=== PATIENT | male | born 1930 | race Caucasian/White ===

== ENCOUNTER 2017-05-13 17:15 | Inpatient (IN) | payer MEDICARE, MEDICAID ==
--- NOTE | 2017-05-13 17:29 | ED Physician Chart ---
Chief Complaint/HPI - Patient Information Date Seen:: 05/13/17 Time Seen:: 17:22 Chief Complaint:: congestion//high bun History of Present Illness:: pt is demented..pt of dr galindo. sent from [place] for pulm congestion and high bun. reportedly has cough but none heard on ed arrival. no fever. pt is nonverbal...unintelligible when he does speak at all which is very rare. pt has a g tube. family(son) says he has been concerned pt is developing dehydration for last 4 days. pt is normally alert and talkative but gets this way(less verbal) in past when he is dehydrated or if he has a uti. he has had some cough recently per son. son had been advising staff of concerns x sev days and recent labs show rapid rise in BUN. pt is fed by PEg Tube...son q's whether intake is correct. Historian:: EMS, Medical Records Review:: Transfer documents Reviewed, Patient unable to respond Past Medical History - Past Medical History Past Medical History: HTN, CHF, CVA/TIA (L side weakness), Dyslipidemia, PUD/ GERD, Seizures, Other (a fib, ) Social History: Care Facility Surgical History: PEG/GTube Medication: Reviewed Physical Exam - Physical Examination General/Constitutional: Awake, Well-developed, well-nourished, Alert, No distress, Non-toxic appearing Head: Atraumatic Eyes: Lids, conjuctiva normal, PERRL, EOMI Skin: Nl inspection, No rash, No skin lesions, No ecchymosis, Well hydrated, No lymphadenopathy ENMT: External ears, nose nl, Nasal exam nl, Lips, teeth, gums nl Neck: Nontender, Full ROM w/o pain, No JVD, No nuchal rigidity, No bruit, No mass, No stridor Respiratory: Nl effort/Exclusion, Clear to Auscultation, No Wheeze/Rhonchi/Rales Cardio Vascular: RRR, No murmur, gallop, rubs, NL S1 S2 GI: No tenderness/rebounding/guarding, No organomegaly, No hernia, Normal BS's, Nondistended, No mass/bruits, No McBurney tenderness Other GI comments:: peg tube site ok. no infection. no decubital sores. : No CVA tenderness Extremities: No tenderness or effusion, Full ROM, normal strength in all extremities, No edema, Normal digits & nails Neuro/Psych: DTR's symmetric, Normal sensory exam, Mood normal Other Neuro/Psych comments:: pt is alert but cant communicate w us. moves rt side ok. l side seems decreased in rom /str c/w prior cva. [ no obvious new deficit per family..other than decrease in communication but he has been gradual onset of this and has been this way in past when he had dehydration.] Misc: normal gait, Normal back, No paraspinal tenderness Labs/Radiology/EKG Results - Lab Results Results: Laboratory Tests 05/13/17 05/13/17 05/13/17 17:42 17:42 17:42 WBC 9.2 RBC 3.22 L Hgb 9.0 L Hct 26.7 L MCV 82.9 MCH 27.8 MCHC Differential 33.5 RDW 14.8 Plt Count 256 MPV 8.8 Neutrophils % 71.3 Lymphocytes % 13.9 L Monocytes % 10.5 H Eosinophils % 3.2 Basophils % 1.1 PT 11.9 H INR 1.13 PTT (Actin FS) 31.7 Sodium 124 L Potassium 5.3 H Chloride 91 L Carbon Dioxide 25.8 Anion Gap 12.5 BUN 80 H Creatinine 2.4 H Est GFR ( Amer) TNP Est GFR (Non-Af Amer) TNP BUN/Creatinine Ratio 33.3 Glucose 103 Whole Bld Lactic Acid Calcium 8.7 Total Bilirubin 0.4 AST 24 ALT < 3 L Alkaline Phosphatase 58 Troponin I Total Protein 6.6 Albumin 3.0 L Globulin 3.6 Albumin/Globulin Ratio 0.8 L 05/13/17 05/13/17 17:42 17:42 WBC RBC Hgb Hct MCV MCH MCHC Differential RDW Plt Count MPV Neutrophils % Lymphocytes % Monocytes % Eosinophils % Basophils % PT INR PTT (Actin FS) Sodium Potassium Chloride Carbon Dioxide Anion Gap BUN Creatinine Est GFR ( Amer) Est GFR (Non-Af Amer) BUN/Creatinine Ratio Glucose Whole Bld Lactic Acid 1.58 Calcium Total Bilirubin AST ALT Alkaline Phosphatase Troponin I 0.02 Total Protein Albumin Globulin Albumin/Globulin Ratio - Radiology Results Results: cxr no chf. rt base has focal loss of clear margin on diaphragm and slt fullness at rt hilar region...?infiltrate - EKG Interpretations EKG Time:: 17:45 Rate & Rhythm: afib w vent rate 90 [place]: -48 Intervals: [id number] ED Septic Shock - . Is Septic Shock (SBP<90, OR Lactate>4 mmol\L) present?: No Reassessment (Disposition) - Reassessment Reassessment:: case dw son, grandson and 2 other fam members. all are ok w plan. q's answered. results dw family. 7;30pm asked staff for call to Dr Emilie rodriguez i+o yielded 1275ml. 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 rodriguez ordered. 8;23pm case dw dr galindo...will admit. Reassessment Condition:: Unchanged - Diagnosis Diagnosis:: 1) rt pulmonary infiltrate 2) dehydration / hign BUN 3) anemia - Patient Disposition Admitted to:: Telemetry Condition at Disposition:: Unchanged
[2017-05-13 17:50] LABS: % BASOPHILS 1.1 % (0.0-2.0); % EOSINOPHILS 3.2 % (0.0-5.0); % LYMPHOCYTES 13.9 % (20.0-50.0); % MONOCYTES 10.5 % (2.0-10.0); % NEUTROPHILS 71.3 % (40.0-80.0); HEMATOCRIT 26.7 % (39.0-49.0); MEAN CELL VOLUME 82.9 fl (80-99); MEAN CORPUSCULAR HEMOGLOBIN 27.8 pg (27.0-31.0); MEAN CORPUSCULAR HGB CONC 33.5 pg (28.0-36.0); MEAN PLATELET VOLUME 8.8 fl; NEUTROPHILE ABSOLUTE 6.5 Th/cmm (1.8-8.0); PLATELET COUNT 256 Th/cmm (150-400); RED BLOOD COUNT 3.22 Mil/cmm (3.80-5.80); RED CELL DISTRIBUTION WIDTH 14.8 % (11.5-20.0); WHITE BLOOD COUNT 9.2 Th/cmm (4.8-10.8)
[2017-05-13 18:08] LABS: INR 1.13 (0.5-1.4); PROTHROMBIN TIME (TEST) 11.9 SECONDS (9.5-11.5)
[2017-05-13 18:28] LABS: ALB/GLOB RATIO 0.8 (1.0-1.8); ALKALINE PHOSPHATASE 58 U/L (34-104); ANION GAP 12.5 (7.0-16.0); BILIRUBIN,TOTAL 0.4 mg/dL (0.3-1.0); BUN - UREA NITROGEN 80 mg/dL (7-25); BUN/CREATININE RATIO 33.3; CALCIUM SERUM 8.7 mg/dL (8.6-10.3); CARBON DIOXIDE 25.8 mEq/L (21.0-31.0); CHLORIDE 91 mEq/L (98-107); CREATININE - SERUM 2.4 mg/dL (0.7-1.3); GLUCOSE 103 mg/dL (70-105); POTASSIUM SERUM 5.3 mEq/L (3.5-5.1); SGOT 24 U/L (13-39); SODIUM SERUM 124 mEq/L (136-145)
[2017-05-13 18:44] LABS: SGPT/ALT < 3 U/L (7-52)
[2017-05-13] MEDS ORDERED: Sodium Chloride 0.9% 1,000 ML IV ONE (19:16)
[2017-05-13 21:46] LABS: URINE BILIRUBIN NEGATIVE (NEGATIVE); URINE BLOOD LARGE (NEGATIVE); URINE COLOR YELLOW; URINE GLUCOSE (UA) NEGATIVE (NEGATIVE); URINE KETONE NEGATIVE (NEGATIVE)
[2017-05-13 21:47] LABS: URINE PROTEIN 100 mg/dL (NEGATIVE); URINE UROBILINOGEN 0.2 E.U./dL (0.2 - 1.0)
[2017-05-13 21:54] LABS: URINE RBC 50-100 /hpf (0-5)
[2017-05-13 21:58] LABS: URINE BACTERIA NONE SEEN /hpf (NONE SEEN); URINE EPITHELIAL CELLS NONE SEEN /lpf (FEW); URINE WBC >100 /hpf (0-5)
[2017-05-14] MEDS ORDERED: Sodium Chloride 0.9% 1,000 ML IV SCH (06:41)
[2017-05-14] MEDS ORDERED: Levofloxacin 500mg/100mL 500 MG/100 ML BAG IV SCH (07:00)
--- NOTE | 2017-05-14 12:25 | History and Physical ---
History of Present Illness - HPI Chief Complaint: female pt present with cough pt is non verbal no fever noted. incresing weakness found to have incresing renal failure HPI: pt has gradually deteorating having cogh increseing weakness found to have incresing renal failure Vital Signs: Last Vital Signs Temp 98.0 F 05/14/17 01:47 Pulse 104 05/14/17 05:47 Resp 18 05/14/17 08:00 BP 142/73 05/14/17 01:47 Pulse Ox 96 05/13/17 21:19 Past Medical History Cardiovascular: Report: AFIB, CAD Pulmonary: Report: Bronchitis, COPD WHISTLE PUNK: Report: CVA, Dementia - Past Surgical History Past Surgical History: No pertinent Hx Social History Smoke: Quit Alcohol: None Drugs: None Lives: Alone Domestic Violence: Negative Health Maintenance Health Maintenance: PSA - Medications Home Medications: Home Medication Medication Instructions Recorded Type Acetaminophen [Tylenol] 650 mg GT Q6HR PRN 05/13/17 History Apixaban [Eliquis] 5 mg PO BID 05/13/17 History Atorvastatin Calcium [Lipitor] 10 mg GT HS 05/13/17 History Carbidopa/Levodopa [Carbidopa-Levo 1 each PO TID 05/13/17 History 25-100 mg Odt] Diclofenac Sodium [Voltaren] 1 % TP BID 05/13/17 History Insulin Detemir [Levemir] 10 unit SQ DAILY 05/13/17 History Insulin Human Regular [NovoLIN R] 0 units SUBQ QID 05/13/17 History Isosorbide Dinitrate [Isordil] 10 mg GT TID 05/13/17 History Lactulose 20 gm GT TID 05/13/17 History Levetiracetam [Keppra] 250 mg GT BID 05/13/17 History Metoprolol Tartrate 37.5 mg GT BID 05/13/17 History Mineral Oil/Petrolatum,White 3.5 gm OP BID 05/13/17 History [Lubricant Eye Ointment] Oxycodone HCl/Acetaminophen 1 tab GT Q12H PRN 05/13/17 History [Percocet 325 mg-5 mg*] Pantoprazole Sodium 40 mg GT DAILY 05/13/17 History Rifaximin [Xifaxan] 550 mg PO BID 05/13/17 History - Allergies Allergies/Adverse Reactions: Allergies Allergy/AdvReac Type Severity Reaction Status Date / Time No Known Allergies Allergy Verified 05/13/17 17:41 Review of Systems - Review of Systems Constitutional: Report: Weakness Eyes: Report: No Significant Respiratory: Report: Cough, SOB with Excertion Cardiovascular: Report: Paroxysmal Noc. Dyspnea Neurological: Report: Weakness Physical Exam - Physical Exam Neuro/Psych: Denies: Mood affect is within normal limits, A+Ox3 (pt had s/p cva) , CN II-XII intact, Disoriented to name time or place, Depressed affect, No motor deficit, No sensory deficit, Facial droop noted, No new focal deficits, Weakness or sensory loss noted. - Lab Results All Lab Results last 24 hours: Laboratory Last Values WBC 9.2 Th/cmm (4.8-10.8) 05/13/17 17:42 RBC 3.22 Mil/cmm (3.80-5.80) L 05/13/17 17:42 Hgb 9.0 gm/dL (12.6-17.4) L 05/13/17 17:42 Hct 26.7 % (39.0-49.0) L 05/13/17 17:42 MCV 82.9 fl (80-99) 05/13/17 17:42 MCH 27.8 pg (27.0-31.0) 05/13/17 17:42 MCHC Differential 33.5 pg (28.0-36.0) 05/13/17 17:42 RDW 14.8 % (11.5-20.0) 05/13/17 17:42 Plt Count 256 Th/cmm (150-400) 05/13/17 17:42 MPV 8.8 fl 05/13/17 17:42 Neutrophils % 71.3 % (40.0-80.0) 05/13/17 17:42 Lymphocytes % 13.9 % (20.0-50.0) L 05/13/17 17:42 Monocytes % 10.5 % (2.0-10.0) H 05/13/17 17:42 Eosinophils % 3.2 % (0.0-5.0) 05/13/17 17:42 Basophils % 1.1 % (0.0-2.0) 05/13/17 17:42 PT 11.9 SECONDS (9.5-11.5) H 05/13/17 17:42 INR 1.13 (0.5-1.4) 05/13/17 17:42 PTT (Actin FS) 31.7 SECONDS (26.0-38.0) 05/13/17 17:42 Sodium 124 mEq/L (136-145) L 05/13/17 17:42 Potassium 5.3 mEq/L (3.5-5.1) H 05/13/17 17:42 Chloride 91 mEq/L (98-107) L 05/13/17 17:42 Carbon Dioxide 25.8 mEq/L (21.0-31.0) 05/13/17 17:42 Anion Gap 12.5 (7.0-16.0) 05/13/17 17:42 BUN 80 mg/dL (7-25) H 05/13/17 17:42 Creatinine 2.4 mg/dL (0.7-1.3) H 05/13/17 17:42 Est GFR ( Amer) TNP 05/13/17 17:42 Est GFR (Non-Af Amer) TNP 05/13/17 17:42 BUN/Creatinine Ratio 33.3 05/13/17 17:42 Glucose 103 mg/dL (70-105) 05/13/17 17:42 Whole Bld Lactic Acid 1.58 mmol/L (0.60-1.99) 05/13/17 17:42 Calcium 8.7 mg/dL (8.6-10.3) 05/13/17 17:42 Total Bilirubin 0.4 mg/dL (0.3-1.0) 05/13/17 17:42 AST 24 U/L (13-39) 05/13/17 17:42 ALT < 3 U/L (7-52) L 05/13/17 17:42 Alkaline Phosphatase 58 U/L (34-104) 05/13/17 17:42 Troponin I 0.02 ng/mL (0.01-0.05) 05/13/17 17:42 B-Natriuretic Peptide 588.0 pg/mL (5.0-100.0) H 05/13/17 17:42 Total Protein 6.6 gm/dL (6.0-8.3) 05/13/17 17:42 Albumin 3.0 gm/dL (4.2-5.5) L 05/13/17 17:42 Globulin 3.6 gm/dL 05/13/17 17:42 Albumin/Globulin Ratio 0.8 (1.0-1.8) L 05/13/17 17:42 Urine Source CATH 05/13/17 19:50 Urine Color YELLOW 05/13/17 19:50 Urine Clarity CLOUDY (CLEAR) 05/13/17 19:50 Urine pH 6.0 05/13/17 19:50 Ur Specific [place] 1.015 (1.005-1.030) 05/13/17 19:50 Urine Protein 100 mg/dL (NEGATIVE) H 05/13/17 19:50 Urine Glucose (UA) NEGATIVE mg/dL (NEGATIVE) 05/13/17 19:50 Urine Ketones NEGATIVE mg/dL (NEGATIVE) 05/13/17 19:50 Urine Blood LARGE (NEGATIVE) H 05/13/17 19:50 Urine Nitrate NEGATIVE (NEGATIVE) 05/13/17 19:50 Urine Bilirubin NEGATIVE (NEGATIVE) 05/13/17 19:50 Urine Urobilinogen 0.2 E.U./dL (0.2 - 1.0) 05/13/17 19:50 Ur Leukocyte Esterase LARGE (NEGATIVE) H 05/13/17 19:50 Urine RBC 50-100 /hpf (0-5) H 05/13/17 19:50 Urine WBC >100 /hpf (0-5) H 05/13/17 19:50 Ur Epithelial Cells NONE SEEN /lpf (FEW) 05/13/17 19:50 Urine Bacteria NONE SEEN /hpf (NONE SEEN) 05/13/17 19:50 Blood Type B POSITIVE 05/13/17 20:36 Antibody Screen NEGATIVE 05/13/17 20:36 Laboratory Results - last 24 hr 05/13/17 20:36 Blood Type B POSITIVE Antibody Screen NEGATIVE - Assessment Assessment: Current Active Problems Problem Status Onset COUGH AND CONGESTION Acute sob pnumonia r/o sepsis incresing renal failure h/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
--- NOTE | 2017-05-14 14:34 | Diagnostic Imaging Report ---
Portable chest x-ray HISTORY: Cough The heart is enlarged. There does appear to be a degree of pulmonary vascular redistribution consistent with cardiac compensation. Evidence for right pleural effusion. IMPRESSION: 1. Cardiomegaly along with evidence of a right pleural effusion and changes suggesting congestive heart failure. Clinical correlation is needed.
--- NOTE | 2017-05-14 15:14 | Consultation ---
Consult Note - Consult Note Service Date: 05/14/17 Consult Note: PHYSICIAN Consultation Note: Date of Admission: 05/13/17 Purpose of Consultation: Worsening kidney function Chief Complaint: Elevated BUN/creatinine and creatinine History of Present Illness: 86-year-old male S medical history of CVA who was brought in because of abnormal labs. Few days prior to admission, patient was noted by family members to be less responsive as usual. One week prior to admission, labs drawn at the [facility] revealed a BUN/creatinine of 35/0.89. A few hours prior to admission, labs drawn revealed a BUN/creatinine of 72/ 2.28. He was then brought to the emergency room. His BUN/creatinine of the emergency room was 80/12.4 with a sodium of 124, and potassium of 5.3. Chest x-ray revealed right effusion with some changes suggestive of CHF. BNP was 588. There was no mention of nausea and vomiting as well as diarrhea. Past Medical History: Essential hypertension, atrial fibrillation, dyslipidemia, epilepsy, GERD, CVA, aspiration pneumonia, dehydration, C. difficile, anemia D, type 2 diabetes mellitus, CKD Allergies Allergy/AdvReac Type Severity Reaction Status Date / Time No Known Allergies Allergy Verified 05/13/17 17:41 Vital Signs Temp 98.0 F 05/14/17 01:47 Pulse 104 05/14/17 05:47 Resp 18 05/14/17 08:00 BP 142/73 05/14/17 01:47 Pulse Ox 96 05/13/17 21:19 Intake & Output 05/13/17 05/14/17 05/14/17 18:59 06:59 18:59 Other: Stool Characteristics Soft Soft Laboratory Results - last 24 hr 05/13/17 20:36 Blood Type B POSITIVE Antibody Screen NEGATIVE Home Medication Medication Instructions Recorded Type Acetaminophen [Tylenol] 650 mg GT Q6HR PRN 05/13/17 History Apixaban [Eliquis] 5 mg PO BID 05/13/17 History Atorvastatin Calcium [Lipitor] 10 mg GT HS 05/13/17 History Carbidopa/Levodopa [Carbidopa-Levo 1 each PO TID 05/13/17 History 25-100 mg Odt] Diclofenac Sodium [Voltaren] 1 % TP BID 05/13/17 History Insulin Detemir [Levemir] 10 unit SQ DAILY 05/13/17 History Insulin Human Regular [NovoLIN R] 0 units SUBQ QID 05/13/17 History Isosorbide Dinitrate [Isordil] 10 mg GT TID 05/13/17 History Lactulose 20 gm GT TID 05/13/17 History Levetiracetam [Keppra] 250 mg GT BID 05/13/17 History Metoprolol Tartrate 37.5 mg GT BID 05/13/17 History Mineral Oil/Petrolatum,White 3.5 gm OP BID 05/13/17 History [Lubricant Eye Ointment] Oxycodone HCl/Acetaminophen 1 tab GT Q12H PRN 05/13/17 History [Percocet 325 mg-5 mg*] Pantoprazole Sodium 40 mg GT DAILY 05/13/17 History Rifaximin [Xifaxan] 550 mg PO BID 05/13/17 History Current Medications Generic Name Dose Route Start Last Admin Trade Name Freq PRN Reason Stop Dose Admin Levofloxacin 250 mg in 50 mls @ 50 mls/hr 05/15/17 07:00 Levaquin Pb IV 07/14/17 06:59 Q24HR YESSICA Sodium Chloride 1,000 mls @ 60 mls/hr 05/14/17 14:59 Nacl 0.9% IV 07/13/17 06:40 .[id number] YESSICA Review of Systems: A 12 point ROS was reviewed with the pertinent positive and negatives noted in the HPI. Social History Smoking Status Never smoker Physical Exam: General: Alert, No Acute Distress HEENT: EOMI Bilaterally, PERRLA Bilaterally, Head is normocephalic, atraumatic on inspection. Cardio: +S1/S2 Auscultated, RRR, no murmurs/rubs/gallops noted Respiratory: Scattered rhonchi Bilaterally Abdominal: Soft, Nondistended, Nontender to palpation x 4 quadrants, presence of gastrostomy tube Genital/Urinary: WNL Extremities: No Edema noted in the lower extremities Neurological: No Focal Deficits noted. Assessment/Plan: Acute kidney injury on chronic kidney disease Chronic kidney disease secondary to diabetic nephropathy with long-standing history of diabetes. He may also have developed hypertensive nephrosclerosis throughout the years. Acute kidney injury is initially prerenal in nature. Exam revealed poor skin turgor with dry oral mucosa. This is suggestive of dehydration. His prerenal azotemia eventually progressed to acute tubular injury. His urinalysis was also suggestive of an ongoing urinary tract infection, so he may have developed acute interstitial nephritis. Hypernatremia secondary to possible increased sodium loss compared to free water loss Hyperkalemia secondary to kidney failure Altered level of consciousness secondary to metabolic encephalopathy due to medications, dehydration Dehydration Essential hypertension with COPD Chronic A. fib Dyslipidemia Epilepsy GERD Status post CVA Aspiration pneumonia/dysphagia History of C. difficile colitis Anemia of chronic disease Type 2 diabetes mellitus with CK D Plan: Urinalysis Start feedings Urine sodium, eosinophils, creatinine Electrolytes, hemoglobin A1c, uric acid and serum osmolarity Signed, Soraya Cesar 05/14/[id number]
[2017-05-14] MEDS: Sodium Chloride 0.9% 1,000 ML IV SCH (17:16)
--- NOTE | 2017-05-14 17:23 | Consultation ---
Consult Note - Consult Note Service Date: 05/14/17 Consult Note: PHYSICIAN Consultation Note: Date of Admission: 05/13/17 Purpose of Consultation: pneumonia Chief Complaint: Patient MARYURI SRINIVASAN was admitted to [facility] Telemetry with PULMONARY INFILTRATE. History of Present Illness: Patient is 86-year-old male with history of CVA, aphasic brought from the SNF for abnormal labs. He was getting less responsive lately. His BUN creatine were normal, hoever, there was worsening of the BUN and creatinine. He was transferred to the ER for further evaluation. Chest x-ray revealed right effusion with infiltrates with some changes suggestive of CHF. BNP was 588. There was no mention of nausea and vomiting as well as diarrhea. Past Medical History: CVA. Dementia. Allergies Allergy/AdvReac Type Severity Reaction Status Date / Time No Known Allergies Allergy Verified 05/13/17 17:41 Vital Signs Temp 97.5 F 05/14/17 16:42 Pulse 103 05/14/17 16:42 Resp 18 05/14/17 16:42 BP 136/77 05/14/17 16:42 Pulse Ox 98 05/14/17 16:42 Intake & Output 05/13/17 05/14/17 05/14/17 18:59 06:59 18:59 Other: Stool Characteristics Soft Soft Laboratory Results - last 24 hr 05/13/17 20:36 Blood Type B POSITIVE Antibody Screen NEGATIVE Home Medication Medication Instructions Recorded Type Acetaminophen [Tylenol] 650 mg GT Q6HR PRN 05/13/17 History Apixaban [Eliquis] 5 mg PO BID 05/13/17 History Atorvastatin Calcium [Lipitor] 10 mg GT HS 05/13/17 History Carbidopa/Levodopa [Carbidopa-Levo 1 each PO TID 05/13/17 History 25-100 mg Odt] Diclofenac Sodium [Voltaren] 1 % TP BID 05/13/17 History Insulin Detemir [Levemir] 10 unit SQ DAILY 05/13/17 History Insulin Human Regular [NovoLIN R] 0 units SUBQ QID 05/13/17 History Isosorbide Dinitrate [Isordil] 10 mg GT TID 05/13/17 History Lactulose 20 gm GT TID 05/13/17 History Levetiracetam [Keppra] 250 mg GT BID 05/13/17 History Metoprolol Tartrate 37.5 mg GT BID 05/13/17 History Mineral Oil/Petrolatum,White 3.5 gm OP BID 05/13/17 History [Lubricant Eye Ointment] Oxycodone HCl/Acetaminophen 1 tab GT Q12H PRN 05/13/17 History [Percocet 325 mg-5 mg*] Pantoprazole Sodium 40 mg GT DAILY 05/13/17 History Rifaximin [Xifaxan] 550 mg PO BID 05/13/17 History Current Medications Generic Name Dose Route Start Last Admin Trade Name Jaimie PRN Reason Stop Dose Admin Levofloxacin 250 mg in 50 mls @ 50 mls/hr 05/15/17 07:00 Levaquin Pb IV 07/14/17 06:59 Q24HR YESSICA Sodium Chloride 1,000 mls @ 60 mls/hr 05/14/17 14:59 05/14/17 17:16 Nacl 0.9% IV 07/13/17 06:40 60 mls/hr .[id number] YESSICA Administration Review of Systems: A 12 point ROS was reviewed with the pertinent positive and negatives noted in the HPI. Social History Smoking Status Never smoker Physical Exam: General: Head: normocephalic. HEENT: Head is normocephalic, atraumatic, Oral cavity: moist, pink tongue. Eyes : pallor is present, icterus neg. Pupil PERRLL. EOMI. Cardio: S1 and S2 WNL, no gallop, no rub. No murmur. Respiratory: Vesicular breath, distant reath sounds. Abdominal: soft, NT ND, BS. Globular. Genital/Urinary: [place] in place. with cloudy urine. Extremities: NCCE. b/l legs are swollen and red. Neurological: AAOx3. Assessment: 1. Pneuimonia. 2. NICK. 3. CVA. 4. CHF. Plan: Continue levaquin to po for 8 days. Thank you, Dr Canseco for invoolving me in taking care of this patient. Eunice, Gio Martini M.D. [id number]
[2017-05-14] MEDS: Morphine Sulfate 2 mg/mL 1mL Syr IVP PRN (21:16)
[2017-05-15] MEDS ORDERED: INSULIN ASPART SLIDING SCALE 100 UNITS/ML UNIT SUBQ SCH
[2017-05-15] MEDS: Albuterol Nebulizer 2.5mg/3mL HHN SCH ×4 (00:51→19:21)
[2017-05-15] MEDS: INSULIN ASPART SLIDING SCALE 100 UNITS/ML UNIT SUBQ SCH ×3 (06:23→17:09)
[2017-05-15 06:53] LABS: % BASOPHILS 0.1 % (0.0-2.0); % EOSINOPHILS 4.5 % (0.0-5.0); % LYMPHOCYTES 21.3 % (20.0-50.0); % MONOCYTES 14.1 % (2.0-10.0); HEMATOCRIT 25.9 % (39.0-49.0); HEMOGLOBIN 8.8 gm/dL (12.6-17.4); MEAN CELL VOLUME 83.6 fl (80-99); MEAN CORPUSCULAR HEMOGLOBIN 28.3 pg (27.0-31.0); MEAN CORPUSCULAR HGB CONC 33.9 pg (28.0-36.0); MEAN PLATELET VOLUME 8.5 fl; NEUTROPHILE ABSOLUTE 3.8 Th/cmm (1.8-8.0); PLATELET COUNT 253 Th/cmm (150-400); RED CELL DISTRIBUTION WIDTH 14.9 % (11.5-20.0)
[2017-05-15] MEDS ORDERED: Levofloxacin 250 mg/50 mL Premix Bag IV SCH (07:00)
[2017-05-15 07:22] LABS: ALB/GLOB RATIO 0.7 (1.0-1.8); ALKALINE PHOSPHATASE 61 U/L (34-104); ANION GAP 10.7 (7.0-16.0); BILIRUBIN,TOTAL 0.3 mg/dL (0.3-1.0); BUN - UREA NITROGEN 70 mg/dL (7-25); BUN/CREATININE RATIO 29.2; CALCIUM SERUM 8.4 mg/dL (8.6-10.3); CHLORIDE 99 mEq/L (98-107); CREATININE - SERUM 2.4 mg/dL (0.7-1.3); GLUCOSE 239 mg/dL (70-105); MAGNESIUM 2.2 mg/dL (1.9-2.7); PHOSPHOROUS 5.4 mg/dL (2.5-5.0); POTASSIUM SERUM 4.7 mEq/L (3.5-5.1); SGOT 18 U/L (13-39); SGPT/ALT 7 U/L (7-52); SODIUM SERUM 131 mEq/L (136-145); URIC ACID 7.7 mg/dL (4.4-7.6); WHITE BLOOD COUNT 6.3 Th/cmm (4.8-10.8)
[2017-05-15] MEDS: Lactulose 10 Gm/15 mL 30mL UDC PO SCH ×3 (08:35→21:33)
[2017-05-15] MEDS: Pantoprazole 40 mg/Packet GT SCH (08:36)
[2017-05-15] MEDS: Levetiracetam 500 mg/5mL 5mL UDC NG SCH ×2 (08:36→16:23)
[2017-05-15] MEDS ORDERED: Insulin Detemir 100 units/mL 10mL Vial SUBQ SCH (09:00)
[2017-05-15] MEDS ORDERED: VTE Chemical Prophylaxis Screen/Admission MC PRN (09:26)
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
[2017-05-15] MEDS ORDERED: Azithromycin 500 MG in Sodium Chloride 0.9% 250 ML IV ONE (11:00)
[2017-05-15] MEDS ORDERED: cefTRIAXone 1 GM in Sodium Chloride 0.9% 50 ML IV SCH (11:00)
[2017-05-15] MEDS ORDERED: Insulin Detemir 100 units/mL 10mL Vial SUBQ ONE (11:00)
--- NOTE | 2017-05-15 11:18 | Infectious Disease Prog Note ---
Infectious Disease Subjective - Review of Systems Service Date: 05/15/17 Subjective: no new change. Infectious Disease Objective - Results Result Diagrams: 05/15/17 06:30 05/15/17 06:30 Recent Labs: Laboratory Last Values WBC 6.3 Th/cmm (4.8-10.8) D 05/15/17 06:30 RBC 3.10 Mil/cmm (3.80-5.80) L 05/15/17 06:30 Hgb 8.8 gm/dL (12.6-17.4) L 05/15/17 06:30 Hct 25.9 % (39.0-49.0) L 05/15/17 06:30 MCV 83.6 fl (80-99) 05/15/17 06:30 MCH 28.3 pg (27.0-31.0) 05/15/17 06:30 MCHC Differential 33.9 pg (28.0-36.0) 05/15/17 06:30 RDW 14.9 % (11.5-20.0) 05/15/17 06:30 Plt Count 253 Th/cmm (150-400) 05/15/17 06:30 MPV 8.5 fl 05/15/17 06:30 Neutrophils % 60.0 % (40.0-80.0) 05/15/17 06:30 Lymphocytes % 21.3 % (20.0-50.0) 05/15/17 06:30 Monocytes % 14.1 % (2.0-10.0) H 05/15/17 06:30 Eosinophils % 4.5 % (0.0-5.0) 05/15/17 06:30 Basophils % 0.1 % (0.0-2.0) 05/15/17 06:30 Eos Smear Source URINE 05/14/17 18:00 Eos Smear Total Cells FEW EOSINOPHILS SEEN (NONE SEEN) 05/14/17 18:00 PT 11.9 SECONDS (9.5-11.5) H 05/13/17 17:42 INR 1.13 (0.5-1.4) 05/13/17 17:42 PTT (Actin FS) 31.7 SECONDS (26.0-38.0) 05/13/17 17:42 Sodium 131 mEq/L (136-145) L 05/15/17 06:30 Potassium 4.7 mEq/L (3.5-5.1) 05/15/17 06:30 Chloride 99 mEq/L (98-107) 05/15/17 06:30 Carbon Dioxide 26.0 mEq/L (21.0-31.0) 05/15/17 06:30 Anion Gap 10.7 (7.0-16.0) 05/15/17 06:30 BUN 70 mg/dL (7-25) H 05/15/17 06:30 Creatinine 2.4 mg/dL (0.7-1.3) H 05/15/17 06:30 Est GFR ( Amer) TNP 05/15/17 06:30 Est GFR (Non-Af Amer) TNP 05/15/17 06:30 BUN/Creatinine Ratio 29.2 05/15/17 06:30 Glucose 239 mg/dL (70-105) H 05/15/17 06:30 POC Glucose 218 MG/DL (70 - 105) H 05/15/17 08:43 Hemoglobin A1c % 6.1 % (4.0-6.0) H 05/15/17 06:30 Whole Bld Lactic Acid 1.58 mmol/L (0.60-1.99) 05/13/17 17:42 Uric Acid 7.7 mg/dL (4.4-7.6) H 05/15/17 06:30 Calcium 8.4 mg/dL (8.6-10.3) L 05/15/17 06:30 Phosphorus 5.4 mg/dL (2.5-5.0) H 05/15/17 06:30 Magnesium 2.2 mg/dL (1.9-2.7) 05/15/17 06:30 Total Bilirubin 0.3 mg/dL (0.3-1.0) 05/15/17 06:30 AST 18 U/L (13-39) 05/15/17 06:30 ALT 7 U/L (7-52) 05/15/17 06:30 Alkaline Phosphatase 61 U/L (34-104) 05/15/17 06:30 Troponin I 0.02 ng/mL (0.01-0.05) 05/13/17 17:42 B-Natriuretic Peptide 588.0 pg/mL (5.0-100.0) H 05/13/17 17:42 Total Protein 6.5 gm/dL (6.0-8.3) 05/15/17 06:30 Albumin 2.7 gm/dL (4.2-5.5) L 05/15/17 06:30 Globulin 3.8 gm/dL 05/15/17 06:30 Albumin/Globulin Ratio 0.7 (1.0-1.8) L 05/15/17 06:30 TSH 2.74 uIU/ml (0.34-5.60) 05/15/17 06:30 Urine Source CATH 05/13/17 19:50 Urine Color YELLOW 05/13/17 19:50 Urine Clarity CLOUDY (CLEAR) 05/13/17 19:50 Urine pH 6.0 05/13/17 19:50 Ur Specific [place] 1.015 (1.005-1.030) 05/13/17 19:50 Urine Protein 100 mg/dL (NEGATIVE) H 05/13/17 19:50 Urine Glucose (UA) NEGATIVE mg/dL (NEGATIVE) 05/13/17 19:50 Urine Ketones NEGATIVE mg/dL (NEGATIVE) 05/13/17 19:50 Urine Blood LARGE (NEGATIVE) H 05/13/17 19:50 Urine Nitrate NEGATIVE (NEGATIVE) 05/13/17 19:50 Urine Bilirubin NEGATIVE (NEGATIVE) 05/13/17 19:50 Urine Urobilinogen 0.2 E.U./dL (0.2 - 1.0) 05/13/17 19:50 Ur Leukocyte Esterase LARGE (NEGATIVE) H 05/13/17 19:50 Urine RBC 50-100 /hpf (0-5) H 05/13/17 19:50 Urine WBC >100 /hpf (0-5) H 05/13/17 19:50 Ur Epithelial Cells NONE SEEN /lpf (FEW) 05/13/17 19:50 Urine Bacteria NONE SEEN /hpf (NONE SEEN) 05/13/17 19:50 Ur Random Sodium 30 mmol/L 05/14/17 18:00 Urine Creatinine 44.0 mg/dl (39.0-259.0) 05/14/17 18:00 Blood Type B POSITIVE 05/13/17 20:36 Antibody Screen NEGATIVE 05/13/17 20:36 - Physical Exam Vitals and I&O: Vital Signs Temp 97.4 F 05/15/17 04:00 Pulse 92 05/15/17 08:38 Resp 18 05/15/17 07:07 BP 152/73 05/15/17 08:38 Pulse Ox 99 05/15/17 07:07 Intake & Output 05/14/17 05/15/17 05/15/17 18:59 06:59 18:59 Intake Total 360 Output Total 200 Balance 360 -200 Weight (lbs) 65.771 kg 65.771 kg Intake: Tube Feeding 360 Output: Urine 200 Other: # Voids 800 # Bowel Movements 1 Stool Characteristics Soft Soft Foamy Active Medications: Current Medications Albuterol Sulfate (Albuterol 2.5mg/3ml Neb Ud) 2.5 mg HHN Q6HRT [facility] Stop: 07/14/17 00:59 Last Admin: 05/15/17 07:07 Dose: 2.5 mg Atorvastatin Calcium (Lipitor) 10 mg GT HS YESSICA PRN Reason: Protocol Stop: 07/14/17 20:59 Carbidopa/Levodopa (Sinemet 25mg-100 Mg) 1 tab PO TID [facility] Stop: 07/14/17 08:59 Last Admin: 05/15/17 08:38 Dose: 1 tab Sodium Chloride (Nacl 0.9%) 1,000 mls @ 60 mls/hr IV .[id number] [facility] Stop: 07/13/17 06:40 Last Admin: 05/14/17 17:16 Dose: 60 mls/hr Ceftriaxone Sodium 1 gm/ (Sodium Chloride) 50 mls @ 100 mls/hr IV Q24HR [facility] Stop: 07/14/17 10:59 Azithromycin 500 mg/ Sodium (Chloride) 250 mls @ 250 mls/hr IV X1 ONE Stop: 05/15/17 11:59 Azithromycin 250 mg/ Sodium (Chloride) 250 mls @ 250 mls/hr IV Q24HR [facility] Stop: 05/20/17 08:59 Insulin Aspart (Novolog Insulin Sliding Scale) 0 units SUBQ Q6HR YESSICA PRN Reason: Protocol Stop: 07/14/17 00:00 Last Admin: 05/15/17 06:23 Dose: 2 units Insulin Detemir (Levemir Insulin) 14 units SUBQ DAILY YESSICA PRN Reason: Protocol Stop: 07/15/17 08:59 Isosorbide Dinitrate (Isordil) 10 mg GT TID [facility] Stop: 07/14/17 08:59 Last Admin: 05/15/17 08:38 Dose: 10 mg Lactulose (Cephulac) 20 gm PO TID [facility] Stop: 07/14/17 08:59 Last Admin: 05/15/17 08:35 Dose: 20 gm Levetiracetam (Keppra) 250 mg NG BID [facility] Stop: 07/14/17 08:59 Last Admin: 05/15/17 08:36 Dose: 250 mg Metoprolol Tartrate (Lopressor) 37.5 mg GT BID [facility] Stop: 07/14/17 00:14 Last Admin: 05/15/17 08:36 Dose: 37.5 mg Miscellaneous (Vte Chemical Prophylaxis Screen/ Admission) 1 ea [facility] PRN PRN PRN Reason: PROTOCOL Stop: 07/14/17 09:25 Morphine Sulfate (Morphine) 2 mg IVP Q3H PRN PRN Reason: PAIN Stop: 07/13/17 19:46 Last Admin: 05/14/17 21:16 Dose: 2 mg Mupirocin (Bactroban Oint) 1 appl TP BID [facility] Stop: 07/14/17 16:59 Pantoprazole Sodium (Protonix) 40 mg GT DAILY [facility] Stop: 07/14/17 08:59 Last Admin: 05/15/17 08:36 Dose: 40 mg Rifaximin (Xifaxan) 550 mg GT BID [facility] Stop: 07/14/17 08:59 Last Admin: 05/15/17 08:37 Dose: 550 mg General: no acute distress, well developed, well nourished HEENT: atraumatic, normocephalic, PERRLA Neck: supple, no thyromegaly Cardiovascular: S1S2, regular Lungs: clear to auscultation bilaterally, clear to percussion Abdomen: soft, no tender, no distended Extremities: no cyanosis, no clubbing Neurological: awake, alert Skin: intact Infectious Disease Assmt/Plan - Problem List Patient Problems: All Active Problems COUGH AND CONGESTION (Acute) - Assessment Assessment: 1. Pneuimonia. 2. NICK. 3. CVA. 4. CHF. Plan: Continue levaquin to po for 8 days (total).
[2017-05-15 12:13] LABS: MICROALBUMIN RANDOM RUINE 363.5 ug/mL (Not Estab.)
--- NOTE | 2017-05-15 12:36 | Diagnostic Imaging Report ---
Exam: Renal ultrasound Diagnosis: Renal failure Findings. Real-time ultrasound summation kidneys performed multiple planes. The study demonstrates no evidence of obstructive uropathy or nephrolithiasis. The right kidney measures 10.0 x 5.3 x 5.7 cm left kidney measures 11.9 x 5.7 x 5.7 mm. There is evidence for a large cyst in the right lower renal pole measuring 6.6 x 6.7 x 6.1 mm diameter. Left renal cyst measuring 3.5 x 3.5 x 3.1 cm appreciated. The bladder contains a [place] catheter. There is evidence of hypertrophy of prostate gland measuring 4.8 x 5.2 cm. IMPRESSION: No evidence of obstructive uropathy or nephrolithiasis, bilateral renal cysts.
[2017-05-15] MEDS ORDERED: Heparin 25,000 Units In D5W 25,000 UNITS/250 ML BAG IV SCH (14:00)
--- NOTE | 2017-05-15 18:16 | General Progress Note ---
Subjective - Review of Systems Service Date: 05/15/17 Subjective: Sleeping, comfortable, nonverbal Objective - Results Result Diagrams: 05/15/17 06:30 05/15/17 06:30 Recent Labs: Laboratory Last Values WBC 6.3 Th/cmm (4.8-10.8) D 05/15/17 06:30 RBC 3.10 Mil/cmm (3.80-5.80) L 05/15/17 06:30 Hgb 8.8 gm/dL (12.6-17.4) L 05/15/17 06:30 Hct 25.9 % (39.0-49.0) L 05/15/17 06:30 MCV 83.6 fl (80-99) 05/15/17 06:30 MCH 28.3 pg (27.0-31.0) 05/15/17 06:30 MCHC Differential 33.9 pg (28.0-36.0) 05/15/17 06:30 RDW 14.9 % (11.5-20.0) 05/15/17 06:30 Plt Count 253 Th/cmm (150-400) 05/15/17 06:30 MPV 8.5 fl 05/15/17 06:30 Neutrophils % 60.0 % (40.0-80.0) 05/15/17 06:30 Lymphocytes % 21.3 % (20.0-50.0) 05/15/17 06:30 Monocytes % 14.1 % (2.0-10.0) H 05/15/17 06:30 Eosinophils % 4.5 % (0.0-5.0) 05/15/17 06:30 Basophils % 0.1 % (0.0-2.0) 05/15/17 06:30 Eos Smear Source URINE 05/14/17 18:00 Eos Smear Total Cells FEW EOSINOPHILS SEEN (NONE SEEN) 05/14/17 18:00 PT 11.9 SECONDS (9.5-11.5) H 05/13/17 17:42 INR 1.13 (0.5-1.4) 05/13/17 17:42 PTT (Actin FS) 30.5 SECONDS (26.0-38.0) 05/15/17 12:30 Sodium 131 mEq/L (136-145) L 05/15/17 06:30 Potassium 4.7 mEq/L (3.5-5.1) 05/15/17 06:30 Chloride 99 mEq/L (98-107) 05/15/17 06:30 Carbon Dioxide 26.0 mEq/L (21.0-31.0) 05/15/17 06:30 Anion Gap 10.7 (7.0-16.0) 05/15/17 06:30 BUN 70 mg/dL (7-25) H 05/15/17 06:30 Creatinine 2.4 mg/dL (0.7-1.3) H 05/15/17 06:30 Est GFR ( Amer) TNP 05/15/17 06:30 Est GFR (Non-Af Amer) TNP 05/15/17 06:30 BUN/Creatinine Ratio 29.2 05/15/17 06:30 Glucose 239 mg/dL (70-105) H 05/15/17 06:30 POC Glucose 71 MG/DL (70 - 105) 05/15/17 16:31 Hemoglobin A1c % 6.1 % (4.0-6.0) H 05/15/17 06:30 Whole Bld Lactic Acid 1.58 mmol/L (0.60-1.99) 05/13/17 17:42 Uric Acid 7.7 mg/dL (4.4-7.6) H 05/15/17 06:30 Calcium 8.4 mg/dL (8.6-10.3) L 05/15/17 06:30 Phosphorus 5.4 mg/dL (2.5-5.0) H 05/15/17 06:30 Magnesium 2.2 mg/dL (1.9-2.7) 05/15/17 06:30 Total Bilirubin 0.3 mg/dL (0.3-1.0) 05/15/17 06:30 AST 18 U/L (13-39) 05/15/17 06:30 ALT 7 U/L (7-52) 05/15/17 06:30 Alkaline Phosphatase 61 U/L (34-104) 05/15/17 06:30 Troponin I 0.02 ng/mL (0.01-0.05) 05/13/17 17:42 B-Natriuretic Peptide 588.0 pg/mL (5.0-100.0) H 05/13/17 17:42 Total Protein 6.5 gm/dL (6.0-8.3) 05/15/17 06:30 Albumin 2.7 gm/dL (4.2-5.5) L 05/15/17 06:30 Globulin 3.8 gm/dL 05/15/17 06:30 Albumin/Globulin Ratio 0.7 (1.0-1.8) L 05/15/17 06:30 TSH 2.74 uIU/ml (0.34-5.60) 05/15/17 06:30 Urine Source CATH 05/13/17 19:50 Urine Color YELLOW 05/13/17 19:50 Urine Clarity CLOUDY (CLEAR) 05/13/17 19:50 Urine pH 6.0 05/13/17 19:50 Ur Specific [place] 1.015 (1.005-1.030) 05/13/17 19:50 Urine Protein 100 mg/dL (NEGATIVE) H 05/13/17 19:50 Urine Glucose (UA) NEGATIVE mg/dL (NEGATIVE) 05/13/17 19:50 Urine Ketones NEGATIVE mg/dL (NEGATIVE) 05/13/17 19:50 Urine Blood LARGE (NEGATIVE) H 05/13/17 19:50 Urine Nitrate NEGATIVE (NEGATIVE) 05/13/17 19:50 Urine Bilirubin NEGATIVE (NEGATIVE) 05/13/17 19:50 Urine Urobilinogen 0.2 E.U./dL (0.2 - 1.0) 05/13/17 19:50 Ur Leukocyte Esterase LARGE (NEGATIVE) H 05/13/17 19:50 Urine RBC 50-100 /hpf (0-5) H 05/13/17 19:50 Urine WBC >100 /hpf (0-5) H 05/13/17 19:50 Ur Epithelial Cells NONE SEEN /lpf (FEW) 05/13/17 19:50 Urine Bacteria NONE SEEN /hpf (NONE SEEN) 05/13/17 19:50 Ur Random Sodium 30 mmol/L 05/14/17 18:00 Urine Creatinine 36.4 mg/dl (Not Estab.) 05/14/17 18:00 Urine Microalbumin 363.5 ug/mL (Not Estab.) 05/14/17 18:00 Microalb/Creat Ratio 998.6 mg/g creat (0.0-30.0) H 05/14/17 18:00 Blood Type B POSITIVE 05/13/17 20:36 Antibody Screen NEGATIVE 05/13/17 20:36 - Physical Exam Vitals and I&O: Vital Signs Temp 97.4 F 05/15/17 04:00 Pulse 88 05/15/17 16:22 Resp 18 05/15/17 16:05 BP 149/80 05/15/17 16:22 Pulse Ox 99 05/15/17 16:05 Intake & Output 05/14/17 05/15/17 05/15/17 18:59 06:59 18:59 Intake Total 360 Output Total 200 Balance 360 -200 Weight (lbs) 65.771 kg 65.771 kg Intake: Tube Feeding 360 Output: Urine 200 Other: # Voids 800 # Bowel Movements 1 Stool Characteristics Soft Soft Soft Foamy Active Medications: Current Medications Acetaminophen (Tylenol) 650 mg PO Q4HR PRN PRN Reason: Pain Or Fever above 101 Stop: 07/14/17 15:15 Last Admin: 05/15/17 16:21 Dose: 650 mg Albuterol Sulfate (Albuterol 2.5mg/3ml Neb Ud) 2.5 mg HHN Q6HRT YESSICA Stop: 07/14/17 00:59 Last Admin: 05/15/17 16:05 Dose: 2.5 mg Atorvastatin Calcium (Lipitor) 10 mg GT HS YESSICA PRN Reason: Protocol Stop: 07/14/17 20:59 Carbidopa/Levodopa (Sinemet 25mg-100 Mg) 1 tab PO TID YESSICA Stop: 07/14/17 08:59 Last Admin: 05/15/17 14:02 Dose: 1 tab Heparin Sodium (Porcine) (Heparin) 5,000 units SUBQ Q8H YESSICA Stop: 07/14/17 14:59 Last Admin: 05/15/17 16:24 Dose: 5,000 units Sodium Chloride (Nacl 0.9%) 1,000 mls @ 60 mls/hr IV .[id number] YESSICA Stop: 07/13/17 06:40 Last Admin: 05/14/17 17:16 Dose: 60 mls/hr Azithromycin 250 mg/ Sodium (Chloride) 250 mls @ 250 mls/hr IV Q24HR YESSICA Stop: 05/20/17 08:59 Piperacillin Sod/Tazobactam (Sod 3.375 gm/ Sodium Chloride) 50 mls @ 100 mls/ hr IV Q8HR [facility] Stop: 07/14/17 15:14 Last Admin: 05/15/17 15:57 Dose: 100 mls/hr Insulin Aspart (Novolog Insulin Sliding Scale) 0 units SUBQ Q6HR YESSICA PRN Reason: Protocol Stop: 07/14/17 00:00 Last Admin: 05/15/17 17:09 Dose: Not Given Insulin Detemir (Levemir Insulin) 14 units SUBQ DAILY [facility] PRN Reason: Protocol Stop: 07/15/17 08:59 Isosorbide Dinitrate (Isordil) 10 mg GT TID [facility] Stop: 07/14/17 08:59 Last Admin: 05/15/17 14:02 Dose: 10 mg Lactulose (Cephulac) 20 gm PO TID [facility] Stop: 07/14/17 08:59 Last Admin: 05/15/17 14:02 Dose: 20 gm Levetiracetam (Keppra) 250 mg NG BID [facility] Stop: 07/14/17 08:59 Last Admin: 05/15/17 16:23 Dose: 250 mg Metoprolol Tartrate (Lopressor) 37.5 mg GT BID [facility] Stop: 07/14/17 00:14 Last Admin: 05/15/17 16:22 Dose: 37.5 mg Miscellaneous (Vte Chemical Prophylaxis Screen/ Admission) 1 ea [facility] PRN PRN PRN Reason: PROTOCOL Stop: 07/14/17 09:25 Morphine Sulfate (Morphine) 2 mg IVP Q3H PRN PRN Reason: PAIN Stop: 07/13/17 19:46 Last Admin: 05/14/17 21:16 Dose: 2 mg Mupirocin (Bactroban Oint) 1 appl TP BID [facility] Stop: 07/14/17 16:59 Last Admin: 05/15/17 16:24 Dose: 1 appl Pantoprazole Sodium (Protonix) 40 mg GT DAILY [facility] Stop: 07/14/17 08:59 Last Admin: 05/15/17 08:36 Dose: 40 mg Rifaximin (Xifaxan) 550 mg GT BID [facility] Stop: 07/14/17 08:59 Last Admin: 05/15/17 16:23 Dose: 550 mg General: No acute distress HEENT: Atraumatic, Mucous membr. moist/pink Neck: Supple, +2 carotid pulse wo bruit Cardiovascular: Regular rate, Normal S1, Normal S2 Lungs: Other (few rhonchi) Abdomen: Bowel sounds, Soft Extremities: no Edema Neurological: Sensation intact Skin: no Rash Psych/Mental Status: Mood NL Assessment/Plan - Problem List Patient Problems: All Active Problems COUGH AND CONGESTION (Acute) - Assessment Assessment: NICK on CKD A LOC secondary to metabolic encephalopathy/medications Dehydration Essential hypertension with CKD COPD Chronic atrial fibrillation Status post CVA Aspiration pneumonia/dysphagia status post PEG Type 2 diabetes mellitus with CAD - Plan Plan: Lab - Result Diagrams 05/15/17 06:30 05/15/17 06:30 Current Medications Acetaminophen (Tylenol) 650 mg PO Q4HR PRN PRN Reason: Pain Or Fever above 101 Stop: 07/14/17 15:15 Last Admin: 05/15/17 16:21 Dose: 650 mg Albuterol Sulfate (Albuterol 2.5mg/3ml Neb Ud) 2.5 mg HHN Q6HRT YESSICA Stop: 07/14/17 00:59 Last Admin: 05/15/17 16:05 Dose: 2.5 mg Atorvastatin Calcium (Lipitor) 10 mg GT HS YESSICA PRN Reason: Protocol Stop: 07/14/17 20:59 Carbidopa/Levodopa (Sinemet 25mg-100 Mg) 1 tab PO TID YESSICA Stop: 07/14/17 08:59 Last Admin: 05/15/17 14:02 Dose: 1 tab Heparin Sodium (Porcine) (Heparin) 5,000 units SUBQ Q8H YESSICA Stop: 07/14/17 14:59 Last Admin: 05/15/17 16:24 Dose: 5,000 units Sodium Chloride (Nacl 0.9%) 1,000 mls @ 60 mls/hr IV .[id number] YESSICA Stop: 07/13/17 06:40 Last Admin: 05/14/17 17:16 Dose: 60 mls/hr Azithromycin 250 mg/ Sodium (Chloride) 250 mls @ 250 mls/hr IV Q24HR YESSICA Stop: 05/20/17 08:59 Piperacillin Sod/Tazobactam (Sod 3.375 gm/ Sodium Chloride) 50 mls @ 100 mls/ hr IV Q8HR YESSICA Stop: 07/14/17 15:14 Last Admin: 05/15/17 15:57 Dose: 100 mls/hr Insulin Aspart (Novolog Insulin Sliding Scale) 0 units SUBQ Q6HR YESSICA PRN Reason: Protocol Stop: 07/14/17 00:00 Last Admin: 05/15/17 17:09 Dose: Not Given Insulin Detemir (Levemir Insulin) 14 units SUBQ DAILY [facility] PRN Reason: Protocol Stop: 07/15/17 08:59 Isosorbide Dinitrate (Isordil) 10 mg GT TID [facility] Stop: 07/14/17 08:59 Last Admin: 05/15/17 14:02 Dose: 10 mg Lactulose (Cephulac) 20 gm PO TID [facility] Stop: 07/14/17 08:59 Last Admin: 05/15/17 14:02 Dose: 20 gm Levetiracetam (Keppra) 250 mg NG BID [facility] Stop: 07/14/17 08:59 Last Admin: 05/15/17 16:23 Dose: 250 mg Metoprolol Tartrate (Lopressor) 37.5 mg GT BID [facility] Stop: 07/14/17 00:14 Last Admin: 05/15/17 16:22 Dose: 37.5 mg Miscellaneous (Vte Chemical Prophylaxis Screen/ Admission) 1 ea [facility] PRN PRN PRN Reason: PROTOCOL Stop: 07/14/17 09:25 Morphine Sulfate (Morphine) 2 mg IVP Q3H PRN PRN Reason: PAIN Stop: 07/13/17 19:46 Last Admin: 05/14/17 21:16 Dose: 2 mg Mupirocin (Bactroban Oint) 1 appl TP BID YESSICA Stop: 07/14/17 16:59 Last Admin: 05/15/17 16:24 Dose: 1 appl Pantoprazole Sodium (Protonix) 40 mg GT DAILY [facility] Stop: 07/14/17 08:59 Last Admin: 05/15/17 08:36 Dose: 40 mg Rifaximin (Xifaxan) 550 mg GT BID [facility] Stop: 07/14/17 08:59 Last Admin: 05/15/17 16:23 Dose: 550 mg Kidney function slightly improved with a BUN down to 70 and creatinine of 2.4 Sodium improved to 131 on normal saline White count stable at 6.3, on Zosyn Continue gentle hydration Follow-up electrolytes, CBC as well as chest x-ray Nutritional Asmnt/Malnutr-PDOC - Dietary Evaluation Malnutrition Findings (Please click <Entered> for more info): Nutritional Asmnt/Malnutrition Start: 05/15/17 13: 56 Text: Status: Complete Freq: Document 05/15/17 13:56 DARON (Rec: 05/15/17 14:18 GSTHALIA [id number]) Nutritional Asmnt/Malnutrition Patient General Information Nutritional Screening High Risk Screening Diagnosis PNA, NICK, icnreasing renal failure, CVA, CHF, DM Pertinent Medical Hx/Surgical Hx CVA, dementia, afib, CAD, HTN, dyslipidemia, epilepsy, GERD, aspiration PNA, DM, CKD, dehydration, C. diff, anemia D Subjective Information 86 year old male from SNF. Pt greeted RD. Pt is overall thin , moderate to severe wasting to chest, clavicles, extremities. Observed Glytrol running at 60ml/hr x20hrs during visit. Unable to obtain CBW due to bedscale not calibrated. Discussed with YVETTE Farooq regarding tube feeding recommendations. Current Diet Order/ Nutrition Support Glytrol at 60ml/hr x 20hrs, providing 1200kcal 54g protein Pertinent Medications Lipitor, Novolog, Levemir, Cephulac, Morphine, Protonix, Nacl 0.9% Pertinent Labs 05/13: potassium 5.3H, BUN 80H, creatinine 2.4H, glucose 103 05/15: potassium WNL, BUN 70H, creatinine 2.4H, glucose 239H, A1c 6.1H, phosphorus 5.4H Nutritional Hx/Data Height 1.68 m Height (Calculated Centimeters) 167.6 Current Weight (lbs) 65.771 kg Weight (Calculated Kilograms) 65.8 Weight (Calculated Grams) 49789.9 Prim Body Weight 142 Weight Status Approriate GI Symptoms Difficult in: Swallowing Cultural/Ethnic/Sabianism Belief [place] [facility]: Glucerna 1.2 at 85ml/hr x 20hrs, providing 2040kcal, promote weight gain. Skin Integrity/Comment: Gee 12. Skin intact. Estimated Nutritional Goals Calories/Kcals/Kg CBW 145lb/65.9kg Kcals Calculated 1976-7kcal (30-35kcal/kg) Protein Calculated 46-92g (0.7-1.4g/kg, renal vs moderate to severe wasting) Fluid: ml Per MD (renal) Nutritional Problem 2. Problem Problem Impaired nutrient utilization related to Etiology NICK, hx CKD aeb Signs/Symptoms: "increasing renal failure," potaasum 5.3H on adm, BUN 70H, swing grinder 2.4H, phosphorus 5.4H 1. Problem Problem Inadequate intake from enteral nutrition infusion related to Etiology estimated nutritional needs aeb Signs/Symptoms: providing to meet 61% lower end kcal needs Intervention/Recommendation Comments 1. Recommend Novasource Renal at 50ml/hr x 20hrs, providing 2000kcal and 91g protein. Current order Glytrol at 60ml/ hr x 20hrs is only providing 1200kcal, pt recieves 2040kcal at [facility]. Expected Outcomes/Goals Expected Outcomes/Goals 1. Pt to meet at least 100% of estimated nutritional needs on tube feeding with tolerance .
--- NOTE | 2017-05-15 19:41 | History and Physical ---
History of Present Illness - HPI Chief Complaint: Shortness of breath HPI: I was asked to take over the care of this patient per Family request. 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 Diagnosed with Pneumonia and admitted by DR SNELL for further treatment. Available medical records reviewed. Daughter was at the bedside during my evalution. Daughter helped providing most of the history. Patient denied chest pain or sob or headache or fever or chills or abd pain or diarrhea Vital Signs: Last Vital Signs Temp 96.8 F 05/15/17 16:00 Pulse 69 05/15/17 19:24 Resp 19 05/15/17 19:24 BP 149/80 05/15/17 16:22 Pulse Ox 100 05/15/17 19:24 Past Medical History Cardiovascular: Report: AFIB, CAD, HTN Pulmonary: Report: No Pertinent Hx FUR SORTER: Report: CVA, Seizure GI: Denies: GI Bleed Musculoskeletal: Report: Low Back Pain Renal/: Report: Chronic Renal Insuff Endocrine: Report: Diabetes. Denies: Hypothyroidism Social History Smoke: No Alcohol: None Drugs: None Lives: With Family Domestic Violence: Negative - Medications Home Medications: Home Medication Medication Instructions Recorded Type Acetaminophen [Tylenol] 650 mg GT Q6HR PRN 05/13/17 History Apixaban [Eliquis] 5 mg PO BID 05/13/17 History Atorvastatin Calcium [Lipitor] 10 mg GT HS 05/13/17 History Carbidopa/Levodopa [Carbidopa-Levo 1 each PO TID 05/13/17 History 25-100 mg Odt] Diclofenac Sodium [Voltaren] 1 % TP BID 05/13/17 History Insulin Detemir [Levemir] 10 unit SQ DAILY 05/13/17 History Insulin Human Regular [NovoLIN R] 0 units SUBQ QID 05/13/17 History Isosorbide Dinitrate [Isordil] 10 mg GT TID 05/13/17 History Lactulose 20 gm GT TID 05/13/17 History Levetiracetam [Keppra] 250 mg GT BID 05/13/17 History Metoprolol Tartrate 37.5 mg GT BID 05/13/17 History Mineral Oil/Petrolatum,White 3.5 gm OP BID 05/13/17 History [Lubricant Eye Ointment] Oxycodone HCl/Acetaminophen 1 tab GT Q12H PRN 05/13/17 History [Percocet 325 mg-5 mg*] Pantoprazole Sodium 40 mg GT DAILY 05/13/17 History Rifaximin [Xifaxan] 550 mg PO BID 05/13/17 History - Allergies Allergies/Adverse Reactions: Allergies Allergy/AdvReac Type Severity Reaction Status Date / Time No Known Allergies Allergy Verified 05/13/17 17:41 Review of Systems - Review of Systems Constitutional: Denies: Fever Eyes: Denies: Pain Respiratory: Report: Cough. Denies: Shortness of Breath, Hemoptysis Cardiovascular: Denies: Chest Pain Gastrointestinal: Denies: Nausea, Vomiting, Abdominal Pain, Diarrhea Genitourinary: Denies: Dysuria Skin: Report: No Significant. Denies: Lesions Neurological: Report: Weakness Physical Exam - Physical Exam Neck: Report: Within normal limits Cardiovascular Systems: Report: Irregular rhythm was noted Respiratory: Report: Rhonchi Abdomen: Denies: Non-tender to palpation, Guarding Extremities: Denies: No pedal edema was noted on inspection Skin: Report: Color of skin is within normal limits - Lab Results All Lab Results last 24 hours: Laboratory Last Values WBC 6.3 Th/cmm (4.8-10.8) D 05/15/17 06:30 RBC 3.10 Mil/cmm (3.80-5.80) L 05/15/17 06:30 Hgb 8.8 gm/dL (12.6-17.4) L 05/15/17 06:30 Hct 25.9 % (39.0-49.0) L 05/15/17 06:30 MCV 83.6 fl (80-99) 05/15/17 06:30 MCH 28.3 pg (27.0-31.0) 05/15/17 06:30 MCHC Differential 33.9 pg (28.0-36.0) 05/15/17 06:30 RDW 14.9 % (11.5-20.0) 05/15/17 06:30 Plt Count 253 Th/cmm (150-400) 05/15/17 06:30 MPV 8.5 fl 05/15/17 06:30 Neutrophils % 60.0 % (40.0-80.0) 05/15/17 06:30 Lymphocytes % 21.3 % (20.0-50.0) 05/15/17 06:30 Monocytes % 14.1 % (2.0-10.0) H 05/15/17 06:30 Eosinophils % 4.5 % (0.0-5.0) 05/15/17 06:30 Basophils % 0.1 % (0.0-2.0) 05/15/17 06:30 Eos Smear Source URINE 05/14/17 18:00 Eos Smear Total Cells FEW EOSINOPHILS SEEN (NONE SEEN) 05/14/17 18:00 PT 11.9 SECONDS (9.5-11.5) H 05/13/17 17:42 INR 1.13 (0.5-1.4) 05/13/17 17:42 PTT (Actin FS) 30.5 SECONDS (26.0-38.0) 05/15/17 12:30 Sodium 131 mEq/L (136-145) L 05/15/17 06:30 Potassium 4.7 mEq/L (3.5-5.1) 05/15/17 06:30 Chloride 99 mEq/L (98-107) 05/15/17 06:30 Carbon Dioxide 26.0 mEq/L (21.0-31.0) 05/15/17 06:30 Anion Gap 10.7 (7.0-16.0) 05/15/17 06:30 BUN 70 mg/dL (7-25) H 05/15/17 06:30 Creatinine 2.4 mg/dL (0.7-1.3) H 05/15/17 06:30 Est GFR ( Amer) TNP 05/15/17 06:30 Est GFR (Non-Af Amer) TNP 05/15/17 06:30 BUN/Creatinine Ratio 29.2 05/15/17 06:30 Glucose 239 mg/dL (70-105) H 05/15/17 06:30 POC Glucose 71 MG/DL (70 - 105) 05/15/17 16:31 Hemoglobin A1c % 6.1 % (4.0-6.0) H 05/15/17 06:30 Whole Bld Lactic Acid 1.58 mmol/L (0.60-1.99) 05/13/17 17:42 Uric Acid 7.7 mg/dL (4.4-7.6) H 05/15/17 06:30 Calcium 8.4 mg/dL (8.6-10.3) L 05/15/17 06:30 Phosphorus 5.4 mg/dL (2.5-5.0) H 05/15/17 06:30 Magnesium 2.2 mg/dL (1.9-2.7) 05/15/17 06:30 Total Bilirubin 0.3 mg/dL (0.3-1.0) 05/15/17 06:30 AST 18 U/L (13-39) 05/15/17 06:30 ALT 7 U/L (7-52) 05/15/17 06:30 Alkaline Phosphatase 61 U/L (34-104) 05/15/17 06:30 Troponin I 0.02 ng/mL (0.01-0.05) 05/13/17 17:42 B-Natriuretic Peptide 588.0 pg/mL (5.0-100.0) H 05/13/17 17:42 Total Protein 6.5 gm/dL (6.0-8.3) 05/15/17 06:30 Albumin 2.7 gm/dL (4.2-5.5) L 05/15/17 06:30 Globulin 3.8 gm/dL 05/15/17 06:30 Albumin/Globulin Ratio 0.7 (1.0-1.8) L 05/15/17 06:30 TSH 2.74 uIU/ml (0.34-5.60) 05/15/17 06:30 Urine Source CATH 05/13/17 19:50 Urine Color YELLOW 05/13/17 19:50 Urine Clarity CLOUDY (CLEAR) 05/13/17 19:50 Urine pH 6.0 05/13/17 19:50 Ur Specific [place] 1.015 (1.005-1.030) 05/13/17 19:50 Urine Protein 100 mg/dL (NEGATIVE) H 05/13/17 19:50 Urine Glucose (UA) NEGATIVE mg/dL (NEGATIVE) 05/13/17 19:50 Urine Ketones NEGATIVE mg/dL (NEGATIVE) 05/13/17 19:50 Urine Blood LARGE (NEGATIVE) H 05/13/17 19:50 Urine Nitrate NEGATIVE (NEGATIVE) 05/13/17 19:50 Urine Bilirubin NEGATIVE (NEGATIVE) 05/13/17 19:50 Urine Urobilinogen 0.2 E.U./dL (0.2 - 1.0) 05/13/17 19:50 Ur Leukocyte Esterase LARGE (NEGATIVE) H 05/13/17 19:50 Urine RBC 50-100 /hpf (0-5) H 05/13/17 19:50 Urine WBC >100 /hpf (0-5) H 05/13/17 19:50 Ur Epithelial Cells NONE SEEN /lpf (FEW) 05/13/17 19:50 Urine Bacteria NONE SEEN /hpf (NONE SEEN) 05/13/17 19:50 Ur Random Sodium 30 mmol/L 05/14/17 18:00 Urine Creatinine 36.4 mg/dl (Not Estab.) 05/14/17 18:00 Urine Microalbumin 363.5 ug/mL (Not Estab.) 05/14/17 18:00 Microalb/Creat Ratio 998.6 mg/g creat (0.0-30.0) H 05/14/17 18:00 Blood Type B POSITIVE 05/13/17 20:36 Antibody Screen NEGATIVE 05/13/17 20:36 Laboratory Results - last 24 hr 05/14/17 05/14/17 05/14/17 18:00 19:55 23:54 WBC RBC Hgb Hct MCV MCH MCHC Differential RDW Plt Count MPV Neutrophils % Lymphocytes % Monocytes % Eosinophils % Basophils % PTT (Actin FS) Sodium Potassium Chloride Carbon Dioxide Anion Gap BUN Creatinine Est GFR ( Amer) Est GFR (Non-Af Amer) BUN/Creatinine Ratio Glucose POC Glucose 207 H 174 H Hemoglobin A1c % Uric Acid Calcium Phosphorus Magnesium Total Bilirubin AST ALT Alkaline Phosphatase Total Protein Albumin Globulin Albumin/Globulin Ratio TSH Urine Creatinine 36.4 Urine Microalbumin 363.5 Microalb/Creat Ratio 998.6 H 05/15/17 05/15/17 05/15/17 06:19 06:30 06:30 WBC 6.3 D RBC 3.10 L Hgb 8.8 L Hct 25.9 L MCV 83.6 MCH 28.3 MCHC Differential 33.9 RDW 14.9 Plt Count 253 MPV 8.5 Neutrophils % 60.0 Lymphocytes % 21.3 Monocytes % 14.1 H Eosinophils % 4.5 Basophils % 0.1 PTT (Actin FS) Sodium 131 L Potassium 4.7 Chloride 99 Carbon Dioxide 26.0 Anion Gap 10.7 BUN 70 H Creatinine 2.4 H Est GFR ( Amer) TNP Est GFR (Non-Af Amer) TNP BUN/Creatinine Ratio 29.2 Glucose 239 H POC Glucose 239 H Hemoglobin A1c % Uric Acid 7.7 H Calcium 8.4 L Phosphorus 5.4 H Magnesium 2.2 Total Bilirubin 0.3 AST 18 ALT 7 Alkaline Phosphatase 61 Total Protein 6.5 Albumin 2.7 L Globulin 3.8 Albumin/Globulin Ratio 0.7 L TSH Urine Creatinine Urine Microalbumin Microalb/Creat Ratio 05/15/17 05/15/17 05/15/17 06:30 06:30 08:43 WBC RBC Hgb Hct MCV MCH MCHC Differential RDW Plt Count MPV Neutrophils % Lymphocytes % Monocytes % Eosinophils % Basophils % PTT (Actin FS) Sodium Potassium Chloride Carbon Dioxide Anion Gap BUN Creatinine Est GFR ( Amer) Est GFR (Non-Af Amer) BUN/Creatinine Ratio Glucose POC Glucose 218 H Hemoglobin A1c % 6.1 H Uric Acid Calcium Phosphorus Magnesium Total Bilirubin AST ALT Alkaline Phosphatase Total Protein Albumin Globulin Albumin/Globulin Ratio TSH 2.74 Urine Creatinine Urine Microalbumin Microalb/Creat Ratio 05/15/17 05/15/17 05/15/17 12:10 12:30 16:31 WBC RBC Hgb Hct MCV MCH MCHC Differential RDW Plt Count MPV Neutrophils % Lymphocytes % Monocytes % Eosinophils % Basophils % PTT (Actin FS) 30.5 Sodium Potassium Chloride Carbon Dioxide Anion Gap BUN Creatinine Est GFR ( Amer) Est GFR (Non-Af Amer) BUN/Creatinine Ratio Glucose POC Glucose 150 H 71 Hemoglobin A1c % Uric Acid Calcium Phosphorus Magnesium Total Bilirubin AST ALT Alkaline Phosphatase Total Protein Albumin Globulin Albumin/Globulin Ratio TSH Urine Creatinine Urine Microalbumin Microalb/Creat Ratio - Assessment Assessment: Current Active Problems Problem Status Onset COUGH AND CONGESTION Acute Pneumonia most likely aspiration type UTI Acute on CKD CAD Chronic afib 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
[2017-05-15] MEDS: Atorvastatin Calcium 10 MG TAB GT SCH (21:32)
[2017-05-16] MEDS: INSULIN ASPART SLIDING SCALE 100 UNITS/ML UNIT SUBQ SCH ×4 (00:41→17:54)
[2017-05-16] MEDS: Albuterol Nebulizer 2.5mg/3mL HHN SCH ×4 (01:10→17:13)
[2017-05-16] MEDS: Sodium Chloride 0.9% 1,000 ML IV SCH (02:48)
[2017-05-16 06:41] LABS: % BASOPHILS 0.5 % (0.0-2.0); % EOSINOPHILS 1.9 % (0.0-5.0); % MONOCYTES 7.3 % (2.0-10.0); % NEUTROPHILS 79.3 % (40.0-80.0); HEMOGLOBIN 9.6 gm/dL (12.6-17.4); MEAN CELL VOLUME 84.6 fl (80-99); MEAN CORPUSCULAR HEMOGLOBIN 28.5 pg (27.0-31.0); MEAN CORPUSCULAR HGB CONC 33.7 pg (28.0-36.0); MEAN PLATELET VOLUME 8.1 fl; PLATELET COUNT 285 Th/cmm (150-400); RED BLOOD COUNT 3.38 Mil/cmm (3.80-5.80); RED CELL DISTRIBUTION WIDTH 14.9 % (11.5-20.0)
[2017-05-16 06:43] LABS: WHITE BLOOD COUNT 8.8 Th/cmm (4.8-10.8)
[2017-05-16 06:44] LABS: HEMATOCRIT 28.6 % (39.0-49.0)
[2017-05-16 07:24] LABS: ANION GAP 12.9 (7.0-16.0); BUN - UREA NITROGEN 69 mg/dL (7-25); CALCIUM SERUM 8.7 mg/dL (8.6-10.3); CARBON DIOXIDE 23.5 mEq/L (21.0-31.0); CHLORIDE 101 mEq/L (98-107); CREATININE - SERUM 2.3 mg/dL (0.7-1.3); GLUCOSE 297 mg/dL (70-105); POTASSIUM SERUM 4.4 mEq/L (3.5-5.1); SODIUM SERUM 133 mEq/L (136-145)
[2017-05-16] MEDS: Lactulose 10 Gm/15 mL 30mL UDC PO SCH ×3 (09:14→23:29)
[2017-05-16] MEDS: Pantoprazole 40 mg/Packet GT SCH (09:14)
[2017-05-16] MEDS: Levetiracetam 500 mg/5mL 5mL UDC NG SCH ×2 (09:14→16:30)
[2017-05-16] MEDS: Insulin Detemir 100 units/mL 10mL Vial SUBQ SCH (09:15)
[2017-05-16] MEDS: Azithromycin 250 MG in Sodium Chloride 0.9% 250 ML IV SCH (09:45)
--- NOTE | 2017-05-16 11:30 | Diagnostic Imaging Report ---
Portable chest x-ray HISTORY: Shortness of breath Compared with prior exam of May 13, 2017, the heart remains enlarged. Cyst in right pleural effusion. Pulmonary vascular redistribution consistent with cardiac decompensation. Hazy infiltrate remains in the right lung. IMPRESSION: 1. Little change in the cardia pulmonary status with cardiomegaly, a right pleural effusion, changes consistent with probable congestive heart failure. Clinical correlation needed.
--- NOTE | 2017-05-16 14:39 | General Progress Note ---
Subjective - Review of Systems Service Date: 05/16/17 Subjective: Awake, comfortable, nonverbal Objective - Results Result Diagrams: 05/16/17 06:34 05/16/17 06:34 Recent Labs: Laboratory Last Values WBC 8.8 Th/cmm (4.8-10.8) D 05/16/17 06:34 RBC 3.38 Mil/cmm (3.80-5.80) L 05/16/17 06:34 Hgb 9.6 gm/dL (12.6-17.4) L 05/16/17 06:34 Hct 28.6 % (39.0-49.0) L D 05/16/17 06:34 MCV 84.6 fl (80-99) 05/16/17 06:34 MCH 28.5 pg (27.0-31.0) 05/16/17 06:34 MCHC Differential 33.7 pg (28.0-36.0) 05/16/17 06:34 RDW 14.9 % (11.5-20.0) 05/16/17 06:34 Plt Count 285 Th/cmm (150-400) 05/16/17 06:34 MPV 8.1 fl 05/16/17 06:34 Neutrophils % 79.3 % (40.0-80.0) 05/16/17 06:34 Lymphocytes % 11.0 % (20.0-50.0) L 05/16/17 06:34 Monocytes % 7.3 % (2.0-10.0) 05/16/17 06:34 Eosinophils % 1.9 % (0.0-5.0) 05/16/17 06:34 Basophils % 0.5 % (0.0-2.0) 05/16/17 06:34 Eos Smear Source URINE 05/14/17 18:00 Eos Smear Total Cells FEW EOSINOPHILS SEEN (NONE SEEN) 05/14/17 18:00 PT 11.9 SECONDS (9.5-11.5) H 05/13/17 17:42 INR 1.13 (0.5-1.4) 05/13/17 17:42 PTT (Actin FS) 30.5 SECONDS (26.0-38.0) 05/15/17 12:30 Sodium 133 mEq/L (136-145) L 05/16/17 06:34 Potassium 4.4 mEq/L (3.5-5.1) 05/16/17 06:34 Chloride 101 mEq/L (98-107) 05/16/17 06:34 Carbon Dioxide 23.5 mEq/L (21.0-31.0) 05/16/17 06:34 Anion Gap 12.9 (7.0-16.0) 05/16/17 06:34 BUN 69 mg/dL (7-25) H 05/16/17 06:34 Creatinine 2.3 mg/dL (0.7-1.3) H 05/16/17 06:34 Est GFR ( Amer) TNP 05/16/17 06:34 Est GFR (Non-Af Amer) TNP 05/16/17 06:34 BUN/Creatinine Ratio 30.0 05/16/17 06:34 Glucose 297 mg/dL (70-105) H 05/16/17 06:34 POC Glucose 321 MG/DL (70 - 105) H 05/16/17 11:27 Hemoglobin A1c % 6.1 % (4.0-6.0) H 05/15/17 06:30 Plasma/Ser Osmolality 301 mOsmol/kg (280-301) 05/14/17 18:20 Whole Bld Lactic Acid 1.58 mmol/L (0.60-1.99) 05/13/17 17:42 Uric Acid 7.7 mg/dL (4.4-7.6) H 05/15/17 06:30 Calcium 8.7 mg/dL (8.6-10.3) 05/16/17 06:34 Phosphorus 5.4 mg/dL (2.5-5.0) H 05/15/17 06:30 Magnesium 2.2 mg/dL (1.9-2.7) 05/15/17 06:30 Total Bilirubin 0.3 mg/dL (0.3-1.0) 05/15/17 06:30 AST 18 U/L (13-39) 05/15/17 06:30 ALT 7 U/L (7-52) 05/15/17 06:30 Alkaline Phosphatase 61 U/L (34-104) 05/15/17 06:30 Troponin I 0.02 ng/mL (0.01-0.05) 05/13/17 17:42 B-Natriuretic Peptide 1570.0 pg/mL (5.0-100.0) H 05/16/17 06:34 Total Protein 6.5 gm/dL (6.0-8.3) 05/15/17 06:30 Albumin 2.7 gm/dL (4.2-5.5) L 05/15/17 06:30 Globulin 3.8 gm/dL 05/15/17 06:30 Albumin/Globulin Ratio 0.7 (1.0-1.8) L 05/15/17 06:30 TSH 2.74 uIU/ml (0.34-5.60) 05/15/17 06:30 Urine Source CATH 05/13/17 19:50 Urine Color YELLOW 05/13/17 19:50 Urine Clarity CLOUDY (CLEAR) 05/13/17 19:50 Urine pH 6.0 05/13/17 19:50 Ur Specific [place] 1.015 (1.005-1.030) 05/13/17 19:50 Urine Protein 100 mg/dL (NEGATIVE) H 05/13/17 19:50 Urine Glucose (UA) NEGATIVE mg/dL (NEGATIVE) 05/13/17 19:50 Urine Ketones NEGATIVE mg/dL (NEGATIVE) 05/13/17 19:50 Urine Blood LARGE (NEGATIVE) H 05/13/17 19:50 Urine Nitrate NEGATIVE (NEGATIVE) 05/13/17 19:50 Urine Bilirubin NEGATIVE (NEGATIVE) 05/13/17 19:50 Urine Urobilinogen 0.2 E.U./dL (0.2 - 1.0) 05/13/17 19:50 Ur Leukocyte Esterase LARGE (NEGATIVE) H 05/13/17 19:50 Urine RBC 50-100 /hpf (0-5) H 05/13/17 19:50 Urine WBC >100 /hpf (0-5) H 05/13/17 19:50 Ur Epithelial Cells NONE SEEN /lpf (FEW) 05/13/17 19:50 Urine Bacteria NONE SEEN /hpf (NONE SEEN) 05/13/17 19:50 Ur Random Sodium 30 mmol/L 05/14/17 18:00 Urine Creatinine 36.4 mg/dl (Not Estab.) 05/14/17 18:00 Urine Microalbumin 363.5 ug/mL (Not Estab.) 05/14/17 18:00 Microalb/Creat Ratio 998.6 mg/g creat (0.0-30.0) H 05/14/17 18:00 Blood Type B POSITIVE 05/13/17 20:36 Antibody Screen NEGATIVE 05/13/17 20:36 - Physical Exam Vitals and I&O: Vital Signs Temp 97.6 F 05/16/17 11:52 Pulse 108 05/16/17 13:13 Resp 19 05/16/17 12:00 BP 137/79 05/16/17 13:13 Pulse Ox 98 05/16/17 11:52 Intake & Output 05/15/17 05/16/17 05/16/17 18:59 06:59 18:59 Intake Total 1950 1030 Output Total 500 400 Balance 1450 630 Weight (lbs) 65.771 kg 65.771 kg Intake: Intake, IV Amount 1050 100 Piperacillin Sodium/ 50 100 Tazobact 3.375 gm In Sodium Chloride 0.9% 50 ml @ 100 mls/hr IV Q8HR [facility] Rx#:[id number] Sodium Chloride 0.9% 1, 1000 000 ml @ 60 mls/hr IV . [id number] [facility] Rx#:[id number] Tube Feeding 600 930 Other 300 Output: Urine 500 400 Other: # Bowel Movements 1 1 Stool Characteristics Soft Foamy Active Medications: Current Medications Acetaminophen (Tylenol) 650 mg PO Q4HR PRN PRN Reason: Pain Or Fever above 101 Stop: 07/14/17 15:15 Last Admin: 05/15/17 16:21 Dose: 650 mg Albuterol Sulfate (Albuterol 2.5mg/3ml Neb Ud) 2.5 mg HHN Q6HRT YESSICA Stop: 07/14/17 00:59 Last Admin: 05/16/17 12:10 Dose: 2.5 mg Atorvastatin Calcium (Lipitor) 10 mg GT HS YESSICA PRN Reason: Protocol Stop: 07/14/17 20:59 Last Admin: 05/15/17 21:32 Dose: 10 mg Carbidopa/Levodopa (Sinemet 25mg-100 Mg) 1 tab PO TID YESSICA Stop: 07/14/17 08:59 Last Admin: 05/16/17 13:13 Dose: 1 tab Heparin Sodium (Porcine) (Heparin) 5,000 units SUBQ Q8H YESSICA Stop: 07/14/17 14:59 Last Admin: 05/16/17 08:36 Dose: Not Given Azithromycin 250 mg/ Sodium (Chloride) 250 mls @ 250 mls/hr IV Q24HR [facility] Stop: 05/20/17 08:59 Last Admin: 05/16/17 09:45 Dose: 250 mls/hr Piperacillin Sod/Tazobactam (Sod 3.375 gm/ Sodium Chloride) 50 mls @ 100 mls/ hr IV Q8HR [facility] Stop: 07/14/17 15:14 Last Admin: 05/16/17 13:14 Dose: 100 mls/hr Insulin Aspart (Novolog Insulin Sliding Scale) 0 units SUBQ Q6HR YESSICA PRN Reason: Protocol Stop: 07/14/17 00:00 Last Admin: 05/16/17 12:24 Dose: 4 units Insulin Detemir (Levemir Insulin) 14 units SUBQ DAILY YESSICA PRN Reason: Protocol Stop: 07/15/17 08:59 Last Admin: 05/16/17 09:15 Dose: 14 units Isosorbide Dinitrate (Isordil) 10 mg GT TID [facility] Stop: 07/14/17 08:59 Last Admin: 05/16/17 13:13 Dose: 10 mg Lactulose (Cephulac) 20 gm PO TID [facility] Stop: 07/14/17 08:59 Last Admin: 05/16/17 13:13 Dose: 20 gm Levetiracetam (Keppra) 250 mg NG BID [facility] Stop: 07/14/17 08:59 Last Admin: 05/16/17 09:14 Dose: 250 mg Metoprolol Tartrate (Lopressor) 37.5 mg GT BID [facility] Stop: 07/14/17 00:14 Last Admin: 05/16/17 09:15 Dose: Not Given Miscellaneous (Vte Chemical Prophylaxis Screen/ Admission) 1 ea [facility] PRN PRN PRN Reason: PROTOCOL Stop: 07/14/17 09:25 Miscellaneous (Clinical Monitoring) 1 ea MC DAILY PRN PRN Reason: RENAL Stop: 07/15/17 12:32 Morphine Sulfate (Morphine) 2 mg IVP Q3H PRN PRN Reason: PAIN Stop: 07/13/17 19:46 Last Admin: 05/14/17 21:16 Dose: 2 mg Mupirocin (Bactroban Oint) 1 appl TP BID YESSICA Stop: 07/14/17 16:59 Last Admin: 05/16/17 09:47 Dose: 1 appl Pantoprazole Sodium (Protonix) 40 mg GT DAILY YESSICA Stop: 07/14/17 08:59 Last Admin: 05/16/17 09:14 Dose: 40 mg Rifaximin (Xifaxan) 550 mg GT BID YESSICA Stop: 07/14/17 08:59 Last Admin: 05/16/17 09:14 Dose: 550 mg General: No acute distress HEENT: Atraumatic, Mucous membr. moist/pink Neck: Supple, +2 carotid pulse wo bruit Cardiovascular: Regular rate, Normal S1, Normal S2 Lungs: Other (few rhonchi, mild congestion) Abdomen: Bowel sounds, Soft Extremities: no Edema Neurological: Sensation intact Skin: no Rash Psych/Mental Status: Mood NL Assessment/Plan - Problem List Patient Problems: All Active Problems COUGH AND CONGESTION (Acute) - Assessment Assessment: NICK on CKD A LOC secondary to metabolic encephalopathy/medications Dehydration Essential hypertension with CKD COPD Chronic atrial fibrillation Status post CVA Aspiration pneumonia/dysphagia status post PEG Type 2 diabetes mellitus with CKD Possible CHF - Plan Plan: Lab - Result Diagrams 05/15/17 06:30 05/15/17 06:30 Current Medications Acetaminophen (Tylenol) 650 mg PO Q4HR PRN PRN Reason: Pain Or Fever above 101 Stop: 07/14/17 15:15 Last Admin: 05/15/17 16:21 Dose: 650 mg Albuterol Sulfate (Albuterol 2.5mg/3ml Neb Ud) 2.5 mg HHN Q6HRT [facility] Stop: 07/14/17 00:59 Last Admin: 05/15/17 16:05 Dose: 2.5 mg Atorvastatin Calcium (Lipitor) 10 mg GT HS YESSICA PRN Reason: Protocol Stop: 07/14/17 20:59 Carbidopa/Levodopa (Sinemet 25mg-100 Mg) 1 tab PO TID YESSICA Stop: 07/14/17 08:59 Last Admin: 05/15/17 14:02 Dose: 1 tab Heparin Sodium (Porcine) (Heparin) 5,000 units SUBQ Q8H [facility] Stop: 07/14/17 14:59 Last Admin: 05/15/17 16:24 Dose: 5,000 units Sodium Chloride (Nacl 0.9%) 1,000 mls @ 60 mls/hr IV .[id number] [facility] Stop: 07/13/17 06:40 Last Admin: 05/14/17 17:16 Dose: 60 mls/hr Azithromycin 250 mg/ Sodium (Chloride) 250 mls @ 250 mls/hr IV Q24HR [facility] Stop: 05/20/17 08:59 Piperacillin Sod/Tazobactam (Sod 3.375 gm/ Sodium Chloride) 50 mls @ 100 mls/ hr IV Q8HR [facility] Stop: 07/14/17 15:14 Last Admin: 05/15/17 15:57 Dose: 100 mls/hr Insulin Aspart (Novolog Insulin Sliding Scale) 0 units SUBQ Q6HR YESSICA PRN Reason: Protocol Stop: 07/14/17 00:00 Last Admin: 05/15/17 17:09 Dose: Not Given Insulin Detemir (Levemir Insulin) 14 units SUBQ DAILY [facility] PRN Reason: Protocol Stop: 07/15/17 08:59 Isosorbide Dinitrate (Isordil) 10 mg GT TID [facility] Stop: 07/14/17 08:59 Last Admin: 05/15/17 14:02 Dose: 10 mg Lactulose (Cephulac) 20 gm PO TID [facility] Stop: 07/14/17 08:59 Last Admin: 05/15/17 14:02 Dose: 20 gm Levetiracetam (Keppra) 250 mg NG BID [facility] Stop: 07/14/17 08:59 Last Admin: 05/15/17 16:23 Dose: 250 mg Metoprolol Tartrate (Lopressor) 37.5 mg GT BID [facility] Stop: 07/14/17 00:14 Last Admin: 05/15/17 16:22 Dose: 37.5 mg Miscellaneous (Vte Chemical Prophylaxis Screen/ Admission) 1 ea [facility] PRN PRN PRN Reason: PROTOCOL Stop: 07/14/17 09:25 Morphine Sulfate (Morphine) 2 mg IVP Q3H PRN PRN Reason: PAIN Stop: 07/13/17 19:46 Last Admin: 05/14/17 21:16 Dose: 2 mg Mupirocin (Bactroban Oint) 1 appl TP BID [facility] Stop: 07/14/17 16:59 Last Admin: 05/15/17 16:24 Dose: 1 appl Pantoprazole Sodium (Protonix) 40 mg GT DAILY [facility] Stop: 07/14/17 08:59 Last Admin: 05/15/17 08:36 Dose: 40 mg Rifaximin (Xifaxan) 550 mg GT BID [facility] Stop: 07/14/17 08:59 Last Admin: 05/15/17 16:23 Dose: 550 mg Kidney function slightly improved with a BUN down to 69 and creatinine of 2.3 Sodium improved to 133 on normal saline White count stable at 8.8, on Zosyn Chest x-ray suggestive of right effusion with possible CHF, and elevated BNP of 1570, will discontinue IV fluids and continue feedings Creatinine 2.3-2.4 is likely his new baseline Reviewed his meds Follow-up electrolytes Nutritional Asmnt/Malnutr-PDOC - Dietary Evaluation Malnutrition Findings (Please click <Entered> for more info): Nutritional Asmnt/Malnutrition Start: 05/15/17 13: 56 Text: Status: Complete Freq: Document 05/15/17 13:56 GSUN (Rec: 05/15/17 14:18 GSUN [id number]) Nutritional Asmnt/Malnutrition Patient General Information Nutritional Screening High Risk Screening Diagnosis PNA, NICK, icnreasing renal failure, CVA, CHF, DM Pertinent Medical Hx/Surgical Hx CVA, dementia, afib, CAD, HTN, dyslipidemia, epilepsy, GERD, aspiration PNA, DM, CKD, dehydration, C. diff, anemia D Subjective Information 86 year old male from SNF. Pt greeted RD. Pt is overall thin , moderate to severe wasting to chest, clavicles, extremities. Observed Glytrol running at 60ml/hr x20hrs during visit. Unable to obtain CBW due to bedscale not calibrated. Discussed with YVETTE Farooq regarding tube feeding recommendations. Current Diet Order/ Nutrition Support Glytrol at 60ml/hr x 20hrs, providing 1200kcal 54g protein Pertinent Medications Lipitor, Novolog, Levemir, Cephulac, Morphine, Protonix, Nacl 0.9% Pertinent Labs 05/13: potassium 5.3H, BUN 80H, creatinine 2.4H, glucose 103 05/15: potassium WNL, BUN 70H, creatinine 2.4H, glucose 239H, A1c 6.1H, phosphorus 5.4H Nutritional Hx/Data Height 1.68 m Height (Calculated Centimeters) 167.6 Current Weight (lbs) 65.771 kg Weight (Calculated Kilograms) 65.8 Weight (Calculated Grams) 11549.9 [place] Body Weight 142 Weight Status Approriate GI Symptoms Difficult in: Swallowing Cultural/Ethnic/Hinduism Belief [facility]: Glucerna 1.2 at 85ml/hr x 20hrs, providing 2040kcal, promote weight gain. Skin Integrity/Comment: Gee 12. Skin intact. Estimated Nutritional Goals Calories/Kcals/Kg CBW 145lb/65.9kg Kcals Calculated 1976-7kcal (30-35kcal/kg) Protein Calculated 46-92g (0.7-1.4g/kg, renal vs moderate to severe wasting) Fluid: ml Per MD (renal) Nutritional Problem 2. Problem Problem Impaired nutrient utilization related to Etiology NICK, hx CKD aeb Signs/Symptoms: "increasing renal failure," potaasum 5.3H on adm, BUN 70H, first crusher 2.4H, phosphorus 5.4H 1. Problem Problem Inadequate intake from enteral nutrition infusion related to Etiology estimated nutritional needs aeb Signs/Symptoms: providing to meet 61% lower end kcal needs Intervention/Recommendation Comments 1. Recommend Novasource Renal at 50ml/hr x 20hrs, providing 2000kcal and 91g protein. Current order Glytrol at 60ml/ hr x 20hrs is only providing 1200kcal, pt recieves 2040kcal at [facility]. Expected Outcomes/Goals Expected Outcomes/Goals 1. Pt to meet at least 100% of estimated nutritional needs on tube feeding with tolerance .
[2017-05-16] MEDS: Morphine Sulfate 2 mg/mL 1mL Syr IVP PRN (16:30)
--- NOTE | 2017-05-16 17:20 | General Progress Note ---
Subjective - Review of Systems Service Date: 05/16/17 Subjective: Patient doing ok afebrile BNP high Objective - Results Result Diagrams: 05/16/17 06:34 05/16/17 06:34 Recent Labs: Laboratory Last Values WBC 8.8 Th/cmm (4.8-10.8) D 05/16/17 06:34 RBC 3.38 Mil/cmm (3.80-5.80) L 05/16/17 06:34 Hgb 9.6 gm/dL (12.6-17.4) L 05/16/17 06:34 Hct 28.6 % (39.0-49.0) L D 05/16/17 06:34 MCV 84.6 fl (80-99) 05/16/17 06:34 MCH 28.5 pg (27.0-31.0) 05/16/17 06:34 MCHC Differential 33.7 pg (28.0-36.0) 05/16/17 06:34 RDW 14.9 % (11.5-20.0) 05/16/17 06:34 Plt Count 285 Th/cmm (150-400) 05/16/17 06:34 MPV 8.1 fl 05/16/17 06:34 Neutrophils % 79.3 % (40.0-80.0) 05/16/17 06:34 Lymphocytes % 11.0 % (20.0-50.0) L 05/16/17 06:34 Monocytes % 7.3 % (2.0-10.0) 05/16/17 06:34 Eosinophils % 1.9 % (0.0-5.0) 05/16/17 06:34 Basophils % 0.5 % (0.0-2.0) 05/16/17 06:34 Eos Smear Source URINE 05/14/17 18:00 Eos Smear Total Cells FEW EOSINOPHILS SEEN (NONE SEEN) 05/14/17 18:00 PT 11.9 SECONDS (9.5-11.5) H 05/13/17 17:42 INR 1.13 (0.5-1.4) 05/13/17 17:42 PTT (Actin FS) 30.5 SECONDS (26.0-38.0) 05/15/17 12:30 Sodium 133 mEq/L (136-145) L 05/16/17 06:34 Potassium 4.4 mEq/L (3.5-5.1) 05/16/17 06:34 Chloride 101 mEq/L (98-107) 05/16/17 06:34 Carbon Dioxide 23.5 mEq/L (21.0-31.0) 05/16/17 06:34 Anion Gap 12.9 (7.0-16.0) 05/16/17 06:34 BUN 69 mg/dL (7-25) H 05/16/17 06:34 Creatinine 2.3 mg/dL (0.7-1.3) H 05/16/17 06:34 Est GFR ( Amer) TNP 05/16/17 06:34 Est GFR (Non-Af Amer) TNP 05/16/17 06:34 BUN/Creatinine Ratio 30.0 05/16/17 06:34 Glucose 297 mg/dL (70-105) H 05/16/17 06:34 POC Glucose 321 MG/DL (70 - 105) H 05/16/17 11:27 Hemoglobin A1c % 6.1 % (4.0-6.0) H 05/15/17 06:30 Plasma/Ser Osmolality 301 mOsmol/kg (280-301) 05/14/17 18:20 Whole Bld Lactic Acid 1.58 mmol/L (0.60-1.99) 05/13/17 17:42 Uric Acid 7.7 mg/dL (4.4-7.6) H 05/15/17 06:30 Calcium 8.7 mg/dL (8.6-10.3) 05/16/17 06:34 Phosphorus 5.4 mg/dL (2.5-5.0) H 05/15/17 06:30 Magnesium 2.2 mg/dL (1.9-2.7) 05/15/17 06:30 Total Bilirubin 0.3 mg/dL (0.3-1.0) 05/15/17 06:30 AST 18 U/L (13-39) 05/15/17 06:30 ALT 7 U/L (7-52) 05/15/17 06:30 Alkaline Phosphatase 61 U/L (34-104) 05/15/17 06:30 Troponin I 0.02 ng/mL (0.01-0.05) 05/13/17 17:42 B-Natriuretic Peptide 1570.0 pg/mL (5.0-100.0) H 05/16/17 06:34 Total Protein 6.5 gm/dL (6.0-8.3) 05/15/17 06:30 Albumin 2.7 gm/dL (4.2-5.5) L 05/15/17 06:30 Globulin 3.8 gm/dL 05/15/17 06:30 Albumin/Globulin Ratio 0.7 (1.0-1.8) L 05/15/17 06:30 TSH 2.74 uIU/ml (0.34-5.60) 05/15/17 06:30 Urine Source CATH 05/13/17 19:50 Urine Color YELLOW 05/13/17 19:50 Urine Clarity CLOUDY (CLEAR) 05/13/17 19:50 Urine pH 6.0 05/13/17 19:50 Ur Specific [place] 1.015 (1.005-1.030) 05/13/17 19:50 Urine Protein 100 mg/dL (NEGATIVE) H 05/13/17 19:50 Urine Glucose (UA) NEGATIVE mg/dL (NEGATIVE) 05/13/17 19:50 Urine Ketones NEGATIVE mg/dL (NEGATIVE) 05/13/17 19:50 Urine Blood LARGE (NEGATIVE) H 05/13/17 19:50 Urine Nitrate NEGATIVE (NEGATIVE) 05/13/17 19:50 Urine Bilirubin NEGATIVE (NEGATIVE) 05/13/17 19:50 Urine Urobilinogen 0.2 E.U./dL (0.2 - 1.0) 05/13/17 19:50 Ur Leukocyte Esterase LARGE (NEGATIVE) H 05/13/17 19:50 Urine RBC 50-100 /hpf (0-5) H 05/13/17 19:50 Urine WBC >100 /hpf (0-5) H 05/13/17 19:50 Ur Epithelial Cells NONE SEEN /lpf (FEW) 05/13/17 19:50 Urine Bacteria NONE SEEN /hpf (NONE SEEN) 05/13/17 19:50 Ur Random Sodium 30 mmol/L 05/14/17 18:00 Urine Creatinine 36.4 mg/dl (Not Estab.) 05/14/17 18:00 Urine Microalbumin 363.5 ug/mL (Not Estab.) 05/14/17 18:00 Microalb/Creat Ratio 998.6 mg/g creat (0.0-30.0) H 05/14/17 18:00 Blood Type B POSITIVE 05/13/17 20:36 Antibody Screen NEGATIVE 05/13/17 20:36 - Physical Exam Vitals and I&O: Vital Signs Temp 97.6 F 05/16/17 11:52 Pulse 111 05/16/17 16:31 Resp 20 05/16/17 12:20 BP 157/83 05/16/17 16:31 Pulse Ox 98 05/16/17 12:20 Intake & Output 05/15/17 05/16/17 05/16/17 18:59 06:59 18:59 Intake Total 1950 1030 Output Total 500 400 Balance 1450 630 Weight (lbs) 65.771 kg 65.771 kg Intake: Intake, IV Amount 1050 100 Piperacillin Sodium/ 50 100 Tazobact 3.375 gm In Sodium Chloride 0.9% 50 ml @ 100 mls/hr IV Q8HR [facility] Rx#:[id number] Sodium Chloride 0.9% 1, 1000 000 ml @ 60 mls/hr IV . [id number] [facility] Rx#:[id number] Tube Feeding 600 930 Other 300 Output: Urine 500 400 Other: # Bowel Movements 1 1 Stool Characteristics Soft Foamy Active Medications: Current Medications Acetaminophen (Tylenol) 650 mg PO Q4HR PRN PRN Reason: Pain Or Fever above 101 Stop: 07/14/17 15:15 Last Admin: 05/15/17 16:21 Dose: 650 mg Albuterol Sulfate (Albuterol 2.5mg/3ml Neb Ud) 2.5 mg HHN Q6HRT YESSICA Stop: 07/14/17 00:59 Last Admin: 05/16/17 17:13 Dose: 2.5 mg Atorvastatin Calcium (Lipitor) 10 mg GT HS YESSICA PRN Reason: Protocol Stop: 07/14/17 20:59 Last Admin: 05/15/17 21:32 Dose: 10 mg Carbidopa/Levodopa (Sinemet 25mg-100 Mg) 1 tab PO TID YESSICA Stop: 07/14/17 08:59 Last Admin: 05/16/17 13:13 Dose: 1 tab Heparin Sodium (Porcine) (Heparin) 5,000 units SUBQ Q8H YESSICA Stop: 07/14/17 14:59 Last Admin: 05/16/17 14:45 Dose: 5,000 units Azithromycin 250 mg/ Sodium (Chloride) 250 mls @ 250 mls/hr IV Q24HR [facility] Stop: 05/20/17 08:59 Last Admin: 05/16/17 09:45 Dose: 250 mls/hr Piperacillin Sod/Tazobactam (Sod 3.375 gm/ Sodium Chloride) 50 mls @ 100 mls/ hr IV Q8HR [facility] Stop: 07/14/17 15:14 Last Admin: 05/16/17 13:14 Dose: 100 mls/hr Insulin Aspart (Novolog Insulin Sliding Scale) 0 units SUBQ Q6HR YESSICA PRN Reason: Protocol Stop: 07/14/17 00:00 Last Admin: 05/16/17 12:24 Dose: 4 units Insulin Detemir (Levemir Insulin) 14 units SUBQ DAILY [facility] PRN Reason: Protocol Stop: 07/15/17 08:59 Last Admin: 05/16/17 09:15 Dose: 14 units Isosorbide Dinitrate (Isordil) 10 mg GT TID [facility] Stop: 07/14/17 08:59 Last Admin: 05/16/17 13:13 Dose: 10 mg Lactulose (Cephulac) 20 gm PO TID [facility] Stop: 07/14/17 08:59 Last Admin: 05/16/17 13:13 Dose: 20 gm Levetiracetam (Keppra) 250 mg NG BID [facility] Stop: 07/14/17 08:59 Last Admin: 05/16/17 16:30 Dose: 250 mg Metoprolol Tartrate (Lopressor) 37.5 mg GT BID [facility] Stop: 07/14/17 00:14 Last Admin: 05/16/17 16:31 Dose: 37.5 mg Miscellaneous (Vte Chemical Prophylaxis Screen/ Admission) 1 ea [facility] PRN PRN PRN Reason: PROTOCOL Stop: 07/14/17 09:25 Miscellaneous (Clinical Monitoring) 1 ea MC DAILY PRN PRN Reason: RENAL Stop: 07/15/17 12:32 Morphine Sulfate (Morphine) 2 mg IVP Q3H PRN PRN Reason: PAIN Stop: 07/13/17 19:46 Last Admin: 07/14/17 16:30 Dose: 2 mg Mupirocin (Bactroban Oint) 1 appl TP BID [facility] Stop: 07/14/17 16:59 Last Admin: 05/16/17 16:33 Dose: 1 appl Pantoprazole Sodium (Protonix) 40 mg GT DAILY [facility] Stop: 07/14/17 08:59 Last Admin: 05/16/17 09:14 Dose: 40 mg Rifaximin (Xifaxan) 550 mg GT BID [facility] Stop: 07/14/17 08:59 Last Admin: 05/16/17 16:30 Dose: 550 mg General: No acute distress HEENT: Atraumatic, Mucous membr. 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 HTN renal disease Seizure disorder - Plan Plan: Zosyn started DC IV Fluids Renal US reviewed no significant findings noted Basal bolus insulin and accucheck Heparin for Afib Tube feeding Asp precaution Seizure meds Metoprolol Monitor vitals HHN and oxygen Supportive care ID and Nephrology on board Follow up labs and chest xray in am Plan of care discussed with nursing staff Nutritional Asmnt/Malnutr-PDOC - Dietary Evaluation Malnutrition Findings (Please click <Entered> for more info): Nutritional Asmnt/Malnutrition Start: 05/15/17 13: 56 Text: Status: Complete Freq: Document 05/15/17 13:56 GSUN (Rec: 05/15/17 14:18 GSUN [id number]) Nutritional Asmnt/Malnutrition Patient General Information Nutritional Screening High Risk Screening Diagnosis PNA, NICK, icnreasing renal failure, CVA, CHF, DM Pertinent Medical Hx/Surgical Hx CVA, dementia, afib, CAD, HTN, dyslipidemia, epilepsy, GERD, aspiration PNA, DM, CKD, dehydration, C. diff, anemia D Subjective Information 86 year old male from SNF. Pt greeted RD. Pt is overall thin , moderate to severe wasting to chest, clavicles, extremities. Observed Glytrol running at 60ml/hr x20hrs during visit. Unable to obtain CBW due to bedscale not calibrated. Discussed with YVETTE Farooq regarding tube feeding recommendations. Current Diet Order/ Nutrition Support Glytrol at 60ml/hr x 20hrs, providing 1200kcal 54g protein Pertinent Medications Lipitor, Novolog, Levemir, Cephulac, Morphine, Protonix, Nacl 0.9% Pertinent Labs 05/13: potassium 5.3H, BUN 80H, creatinine 2.4H, glucose 103 05/15: potassium WNL, BUN 70H, creatinine 2.4H, glucose 239H, A1c 6.1H, phosphorus 5.4H Nutritional Hx/Data Height 1.68 m Height (Calculated Centimeters) 167.6 Current Weight (lbs) 65.771 kg Weight (Calculated Kilograms) 65.8 Weight (Calculated Grams) 86437.9 [place] Body Weight 142 Weight Status Approriate GI Symptoms Difficult in: Swallowing Cultural/Ethnic/[employer] Belief [facility]: Glucerna 1.2 at 85ml/hr x 20hrs, providing 2040kcal, promote weight gain. Skin Integrity/Comment: Gee 12. Skin intact. Estimated Nutritional Goals Calories/Kcals/Kg CBW 145lb/65.9kg Kcals Calculated 1976-7kcal (30-35kcal/kg) Protein Calculated 46-92g (0.7-1.4g/kg, renal vs moderate to severe wasting) Fluid: ml Per MD (renal) Nutritional Problem 2. Problem Problem Impaired nutrient utilization related to Etiology NICK, hx CKD aeb Signs/Symptoms: "increasing renal failure," potaasum 5.3H on adm, BUN 70H, paleobotanist 2.4H, phosphorus 5.4H 1. Problem Problem Inadequate intake from enteral nutrition infusion related to Etiology estimated nutritional needs aeb Signs/Symptoms: providing to meet 61% lower end kcal needs Intervention/Recommendation Comments 1. Recommend Novasource Renal at 50ml/hr x 20hrs, providing 2000kcal and 91g protein. Current order Glytrol at 60ml/ hr x 20hrs is only providing 1200kcal, pt recieves 2040kcal at [facility]. Expected Outcomes/Goals Expected Outcomes/Goals 1. Pt to meet at least 100% of estimated nutritional needs on tube feeding with tolerance .
[2017-05-16] MEDS: Atorvastatin Calcium 10 MG TAB GT SCH (21:44)
--- NOTE | 2017-05-16 21:57 | Infectious Disease Prog Note ---
Infectious Disease Subjective - Review of Systems Service Date: 05/16/17 Subjective: Patient is in shortness of breath, his bp is high and his hr went up to 130s, cardizem 10 mg IV one dose given. Infectious Disease Objective - Results Result Diagrams: 05/16/17 06:34 05/16/17 06:34 Recent Labs: Laboratory Last Values WBC 8.8 Th/cmm (4.8-10.8) D 05/16/17 06:34 RBC 3.38 Mil/cmm (3.80-5.80) L 05/16/17 06:34 Hgb 9.6 gm/dL (12.6-17.4) L 05/16/17 06:34 Hct 28.6 % (39.0-49.0) L D 05/16/17 06:34 MCV 84.6 fl (80-99) 05/16/17 06:34 MCH 28.5 pg (27.0-31.0) 05/16/17 06:34 MCHC Differential 33.7 pg (28.0-36.0) 05/16/17 06:34 RDW 14.9 % (11.5-20.0) 05/16/17 06:34 Plt Count 285 Th/cmm (150-400) 05/16/17 06:34 MPV 8.1 fl 05/16/17 06:34 Neutrophils % 79.3 % (40.0-80.0) 05/16/17 06:34 Lymphocytes % 11.0 % (20.0-50.0) L 05/16/17 06:34 Monocytes % 7.3 % (2.0-10.0) 05/16/17 06:34 Eosinophils % 1.9 % (0.0-5.0) 05/16/17 06:34 Basophils % 0.5 % (0.0-2.0) 05/16/17 06:34 Eos Smear Source URINE 05/14/17 18:00 Eos Smear Total Cells FEW EOSINOPHILS SEEN (NONE SEEN) 05/14/17 18:00 PT 11.9 SECONDS (9.5-11.5) H 05/13/17 17:42 INR 1.13 (0.5-1.4) 05/13/17 17:42 PTT (Actin FS) 30.5 SECONDS (26.0-38.0) 05/15/17 12:30 Sodium 133 mEq/L (136-145) L 05/16/17 06:34 Potassium 4.4 mEq/L (3.5-5.1) 05/16/17 06:34 Chloride 101 mEq/L (98-107) 05/16/17 06:34 Carbon Dioxide 23.5 mEq/L (21.0-31.0) 05/16/17 06:34 Anion Gap 12.9 (7.0-16.0) 05/16/17 06:34 BUN 69 mg/dL (7-25) H 05/16/17 06:34 Creatinine 2.3 mg/dL (0.7-1.3) H 05/16/17 06:34 Est GFR ( Amer) TNP 05/16/17 06:34 Est GFR (Non-Af Amer) TNP 05/16/17 06:34 BUN/Creatinine Ratio 30.0 05/16/17 06:34 Glucose 297 mg/dL (70-105) H 05/16/17 06:34 POC Glucose 85 MG/DL (70 - 105) 05/16/17 17:16 Hemoglobin A1c % 6.1 % (4.0-6.0) H 05/15/17 06:30 Plasma/Ser Osmolality 301 mOsmol/kg (280-301) 05/14/17 18:20 Whole Bld Lactic Acid 1.58 mmol/L (0.60-1.99) 05/13/17 17:42 Uric Acid 7.7 mg/dL (4.4-7.6) H 05/15/17 06:30 Calcium 8.7 mg/dL (8.6-10.3) 05/16/17 06:34 Phosphorus 5.4 mg/dL (2.5-5.0) H 05/15/17 06:30 Magnesium 2.2 mg/dL (1.9-2.7) 05/15/17 06:30 Total Bilirubin 0.3 mg/dL (0.3-1.0) 05/15/17 06:30 AST 18 U/L (13-39) 05/15/17 06:30 ALT 7 U/L (7-52) 05/15/17 06:30 Alkaline Phosphatase 61 U/L (34-104) 05/15/17 06:30 Troponin I 0.02 ng/mL (0.01-0.05) 05/13/17 17:42 B-Natriuretic Peptide 1570.0 pg/mL (5.0-100.0) H 05/16/17 06:34 Total Protein 6.5 gm/dL (6.0-8.3) 05/15/17 06:30 Albumin 2.7 gm/dL (4.2-5.5) L 05/15/17 06:30 Globulin 3.8 gm/dL 05/15/17 06:30 Albumin/Globulin Ratio 0.7 (1.0-1.8) L 05/15/17 06:30 TSH 2.74 uIU/ml (0.34-5.60) 05/15/17 06:30 Urine Source CATH 05/13/17 19:50 Urine Color YELLOW 05/13/17 19:50 Urine Clarity CLOUDY (CLEAR) 05/13/17 19:50 Urine pH 6.0 05/13/17 19:50 Ur Specific [place] 1.015 (1.005-1.030) 05/13/17 19:50 Urine Protein 100 mg/dL (NEGATIVE) H 05/13/17 19:50 Urine Glucose (UA) NEGATIVE mg/dL (NEGATIVE) 05/13/17 19:50 Urine Ketones NEGATIVE mg/dL (NEGATIVE) 05/13/17 19:50 Urine Blood LARGE (NEGATIVE) H 05/13/17 19:50 Urine Nitrate NEGATIVE (NEGATIVE) 05/13/17 19:50 Urine Bilirubin NEGATIVE (NEGATIVE) 05/13/17 19:50 Urine Urobilinogen 0.2 E.U./dL (0.2 - 1.0) 05/13/17 19:50 Ur Leukocyte Esterase LARGE (NEGATIVE) H 05/13/17 19:50 Urine RBC 50-100 /hpf (0-5) H 05/13/17 19:50 Urine WBC >100 /hpf (0-5) H 05/13/17 19:50 Ur Epithelial Cells NONE SEEN /lpf (FEW) 05/13/17 19:50 Urine Bacteria NONE SEEN /hpf (NONE SEEN) 05/13/17 19:50 Ur Random Sodium 30 mmol/L 05/14/17 18:00 Urine Creatinine 36.4 mg/dl (Not Estab.) 05/14/17 18:00 Urine Microalbumin 363.5 ug/mL (Not Estab.) 05/14/17 18:00 Microalb/Creat Ratio 998.6 mg/g creat (0.0-30.0) H 05/14/17 18:00 Blood Type B POSITIVE 05/13/17 20:36 Antibody Screen NEGATIVE 05/13/17 20:36 - Physical Exam Vitals and I&O: Vital Signs Temp 97.8 F 05/16/17 20:00 Pulse 109 05/16/17 21:45 Resp 20 05/16/17 20:00 BP 154/89 05/16/17 21:45 Pulse Ox 98 05/16/17 20:00 Intake & Output 05/16/17 05/16/17 05/17/17 06:59 18:59 06:59 Intake Total 1030 50 Output Total 400 850 Balance 630 -800 Weight (lbs) 65.771 kg 65.771 kg Intake: Intake, IV Amount 100 50 Piperacillin Sodium/ 100 50 Tazobact 3.375 gm In Sodium Chloride 0.9% 50 ml @ 100 mls/hr IV Q8HR [facility] Rx#:[id number] Tube Feeding 930 Output: Urine 400 850 Other: # Bowel Movements 1 Active Medications: Current Medications Acetaminophen (Tylenol) 650 mg PO Q4HR PRN PRN Reason: Pain Or Fever above 101 Stop: 07/14/17 15:15 Last Admin: 05/15/17 16:21 Dose: 650 mg Albuterol Sulfate (Albuterol 2.5mg/3ml Neb Ud) 2.5 mg HHN Q6HRT YESSICA Stop: 07/14/17 00:59 Last Admin: 05/16/17 17:13 Dose: 2.5 mg Atorvastatin Calcium (Lipitor) 10 mg GT HS YESSICA PRN Reason: Protocol Stop: 07/14/17 20:59 Last Admin: 05/16/17 21:44 Dose: 10 mg Carbidopa/Levodopa (Sinemet 25mg-100 Mg) 1 tab PO TID YESSICA Stop: 07/14/17 08:59 Last Admin: 05/16/17 21:45 Dose: 1 tab Heparin Sodium (Porcine) (Heparin) 5,000 units SUBQ Q8H YESSICA Stop: 07/14/17 14:59 Last Admin: 05/16/17 14:45 Dose: 5,000 units Azithromycin 250 mg/ Sodium (Chloride) 250 mls @ 250 mls/hr IV Q24HR [facility] Stop: 05/20/17 08:59 Last Admin: 05/16/17 09:45 Dose: 250 mls/hr Piperacillin Sod/Tazobactam (Sod 3.375 gm/ Sodium Chloride) 50 mls @ 100 mls/ hr IV Q8HR [facility] Stop: 07/14/17 15:14 Last Admin: 05/16/17 21:44 Dose: 100 mls/hr Insulin Aspart (Novolog Insulin Sliding Scale) 0 units SUBQ Q6HR YESSICA PRN Reason: Protocol Stop: 07/14/17 00:00 Last Admin: 05/16/17 17:54 Dose: Not Given Insulin Detemir (Levemir Insulin) 14 units SUBQ DAILY [facility] PRN Reason: Protocol Stop: 07/15/17 08:59 Last Admin: 05/16/17 09:15 Dose: 14 units Isosorbide Dinitrate (Isordil) 10 mg GT TID [facility] Stop: 07/14/17 08:59 Last Admin: 05/16/17 21:45 Dose: 10 mg Lactulose (Cephulac) 20 gm PO TID [facility] Stop: 07/14/17 08:59 Last Admin: 05/16/17 13:13 Dose: 20 gm Levetiracetam (Keppra) 250 mg NG BID [facility] Stop: 07/14/17 08:59 Last Admin: 05/16/17 16:30 Dose: 250 mg Metoprolol Tartrate (Lopressor) 37.5 mg GT BID [facility] Stop: 07/14/17 00:14 Last Admin: 05/16/17 16:31 Dose: 37.5 mg Miscellaneous (Vte Chemical Prophylaxis Screen/ Admission) 1 ea [facility] PRN PRN PRN Reason: PROTOCOL Stop: 07/14/17 09:25 Miscellaneous (Clinical Monitoring) 1 ea [facility] DAILY PRN PRN Reason: RENAL Stop: 07/15/17 12:32 Morphine Sulfate (Morphine) 2 mg IVP Q3H PRN PRN Reason: PAIN Stop: 07/13/17 19:46 Last Admin: 05/16/17 16:30 Dose: 2 mg Mupirocin (Bactroban Oint) 1 appl TP BID [facility] Stop: 07/14/17 16:59 Last Admin: 05/16/17 16:33 Dose: 1 appl Pantoprazole Sodium (Protonix) 40 mg GT DAILY [facility] Stop: 07/14/17 08:59 Last Admin: 05/16/17 09:14 Dose: 40 mg Rifaximin (Xifaxan) 550 mg GT BID [facility] Stop: 07/14/17 08:59 Last Admin: 05/16/17 16:30 Dose: 550 mg General: no acute distress, well developed, well nourished HEENT: atraumatic, normocephalic Neck: supple Cardiovascular: S1S2, regular Lungs: clear to auscultation bilaterally, clear to percussion, crackles (more in RLL.), wheeze Abdomen: soft, no tender Extremities: no cyanosis, no clubbing, no edema Neurological: awake, alert Skin: intact Infectious Disease Assmt/Plan - Problem List Patient Problems: All Active Problems COUGH AND CONGESTION (Acute) - Assessment Assessment: 1. Pneuimonia.? Aspiration. 2. NICK. 3. CVA. 4. CHF. 5. CKD4. 6. Afib with rapid ventricular response. Plan: Continue zithro and zosyn ( Abx changed today), add vanco IV. give lasix 40mg IV x1, cardizem is given. if blood pressure is > 160 will give vasotec one dose. If continues to have tachycardia, may start cardizem drip. nebulizer treatment and transfer to the ICU. QUANG RN and Charge nurse. check the labs in am. Nutritional Asmnt/Malnutr-PDOC - Dietary Evaluation Malnutrition Findings (Please click <Entered> for more info): Nutritional Asmnt/Malnutrition Start: 05/15/17 13: 56 Text: Status: Complete Freq: Document 05/15/17 13:56 GSUN (Rec: 05/15/17 14:18 GSTHALIA [email or web address]) Nutritional Asmnt/Malnutrition Patient General Information Nutritional Screening High Risk Screening Diagnosis PNA, NICK, icnreasing renal failure, CVA, CHF, DM Pertinent Medical Hx/Surgical Hx CVA, dementia, afib, CAD, HTN, dyslipidemia, epilepsy, GERD, aspiration PNA, DM, CKD, dehydration, C. diff, anemia D Subjective Information 86 year old male from SNF. Pt greeted RD. Pt is overall thin , moderate to severe wasting to chest, clavicles, extremities. Observed Glytrol running at 60ml/hr x20hrs during visit. Unable to obtain CBW due to bedscale not calibrated. Discussed with YVETTE Farooq regarding tube feeding recommendations. Current Diet Order/ Nutrition Support Glytrol at 60ml/hr x 20hrs, providing 1200kcal 54g protein Pertinent Medications Lipitor, Novolog, Levemir, Cephulac, Morphine, Protonix, Nacl 0.9% Pertinent Labs 05/13: potassium 5.3H, BUN 80H, creatinine 2.4H, glucose 103 05/15: potassium WNL, BUN 70H, creatinine 2.4H, glucose 239H, A1c 6.1H, phosphorus 5.4H Nutritional Hx/Data Height 1.68 m Height (Calculated Centimeters) 167.6 Current Weight (lbs) 65.771 kg Weight (Calculated Kilograms) 65.8 Weight (Calculated Grams) 24706.9 [place] Body Weight 142 Weight Status Approriate GI Symptoms Difficult in: Swallowing Cultural/Ethnic/Islam Belief [facility]: Glucerna 1.2 at 85ml/hr x 20hrs, providing 2040kcal, promote weight gain. Skin Integrity/Comment: Gee 12. Skin intact. Estimated Nutritional Goals Calories/Kcals/Kg CBW 145lb/65.9kg Kcals Calculated 1976-2307kcal (30-35kcal/kg) Protein Calculated 46-92g (0.7-1.4g/kg, renal vs moderate to severe wasting) Fluid: ml Per MD (renal) Nutritional Problem 2. Problem Problem Impaired nutrient utilization related to Etiology NICK, hx CKD aeb Signs/Symptoms: "increasing renal failure," potaasum 5.3H on adm, BUN 70H, hotel or motel manager 2.4H, phosphorus 5.4H 1. Problem Problem Inadequate intake from enteral nutrition infusion related to Etiology estimated nutritional needs aeb Signs/Symptoms: providing to meet 61% lower end kcal needs Intervention/Recommendation Comments 1. Recommend Novasource Renal at 50ml/hr x 20hrs, providing 2000kcal and 91g protein. Current order Glytrol at 60ml/ hr x 20hrs is only providing 1200kcal, pt recieves 2040kcal at [facility]. Expected Outcomes/Goals Expected Outcomes/Goals 1. Pt to meet at least 100% of estimated nutritional needs on tube feeding with tolerance .
[2017-05-16] MEDS ORDERED: Diltiazem 5 mg/mL 5mL Vial IVP STA (22:24)
[2017-05-17] MEDS: Ipratropium Neb 0.5 mg/2.5 mL UD HHN SCH ×4 (00:42→19:37)
[2017-05-17] MEDS: Albuterol Nebulizer 2.5mg/3mL HHN SCH ×4 (00:42→19:37)
[2017-05-17] MEDS ORDERED: Diltiazem 5 mg/mL 25mL Vial IV ONE (02:41)
[2017-05-17 05:24] LABS: HEMATOCRIT 26.4 % (39.0-49.0); HEMOGLOBIN 8.9 gm/dL (12.6-17.4); MEAN CELL VOLUME 84.1 fl (80-99); MEAN CORPUSCULAR HEMOGLOBIN 28.3 pg (27.0-31.0); MEAN CORPUSCULAR HGB CONC 33.6 pg (28.0-36.0); MEAN PLATELET VOLUME 8.5 fl; PLATELET COUNT 316 Th/cmm (150-400); RED BLOOD COUNT 3.14 Mil/cmm (3.80-5.80); RED CELL DISTRIBUTION WIDTH 15.3 % (11.5-20.0)
[2017-05-17 05:44] LABS: ALB/GLOB RATIO 0.7 (1.0-1.8); ALKALINE PHOSPHATASE 54 U/L (34-104); ANION GAP 13.8 (7.0-16.0); BILIRUBIN,TOTAL 0.4 mg/dL (0.3-1.0); BUN - UREA NITROGEN 66 mg/dL (7-25); BUN/CREATININE RATIO 28.7; CALCIUM SERUM 8.6 mg/dL (8.6-10.3); CARBON DIOXIDE 22.8 mEq/L (21.0-31.0); CHLORIDE 103 mEq/L (98-107); CREATININE - SERUM 2.3 mg/dL (0.7-1.3); GLUCOSE 242 mg/dL (70-105); POTASSIUM SERUM 4.6 mEq/L (3.5-5.1); SGOT 20 U/L (13-39); SGPT/ALT 3 U/L (7-52); SODIUM SERUM 135 mEq/L (136-145)
[2017-05-17 06:06] LABS: WHITE BLOOD COUNT 12.7 Th/cmm (4.8-10.8)
[2017-05-17] MEDS: INSULIN ASPART SLIDING SCALE 100 UNITS/ML UNIT SUBQ SCH ×5 (06:36→17:25)
[2017-05-17 07:11] LABS: BAND NEUTROPHILE 1 % (0-10); NEUTROPHILS 84 % (40-80); TOTAL CELLS COUNTED 100
[2017-05-17 07:12] LABS: PLATELET ESTIMATE ADEQUATE (NORMAL)
[2017-05-17] MEDS: Azithromycin 250 MG in Sodium Chloride 0.9% 250 ML IV SCH (09:00)
--- NOTE | 2017-05-17 09:06 | Diagnostic Imaging Report ---
Exam: Portable examination of the chest. HISTORY: Pneumonia Findings: Portable examination of the chest at 0757 hours reviewed the study demonstrates congestive heart failure with superimposed right-sided pneumonia and effusion. Bony thorax intact. Mediastinal structures midline the heart is not enlarged. The left costophrenic angles clear. IMPRESSION 1. Congestive heart failure 2. Right lower lobe infiltrate and effusion follow-up examination recommended
[2017-05-17] MEDS ORDERED: Probiotic Screen MC PRN (09:34)
[2017-05-17] MEDS: Lactulose 10 Gm/15 mL 30mL UDC PO SCH ×3 (09:39→21:18)
[2017-05-17] MEDS: Pantoprazole 40 mg/Packet GT SCH (09:39)
[2017-05-17] MEDS: Levetiracetam 500 mg/5mL 5mL UDC NG SCH ×2 (09:40→17:23)
[2017-05-17] MEDS: Insulin Detemir 100 units/mL 10mL Vial SUBQ SCH (09:41)
[2017-05-17] MEDS: Morphine Sulfate 2 mg/mL 1mL Syr IVP PRN ×2 (11:12→22:39)
[2017-05-17] MEDS ORDERED: Vancomycin HCl 500 MG in Sodium Chloride 0.9% 100 ML IV SCH (12:00)
--- NOTE | 2017-05-17 14:05 | General Progress Note ---
Subjective - Review of Systems Service Date: 05/17/17 Subjective: Sleeping, comfortable, nonverbal Objective - Results Result Diagrams: 05/17/17 05:02 05/17/17 05:02 Recent Labs: Laboratory Last Values WBC 12.7 Th/cmm (4.8-10.8) H D 05/17/17 05:02 RBC 3.14 Mil/cmm (3.80-5.80) L 05/17/17 05:02 Hgb 8.9 gm/dL (12.6-17.4) L 05/17/17 05:02 Hct 26.4 % (39.0-49.0) L 05/17/17 05:02 MCV 84.1 fl (80-99) 05/17/17 05:02 MCH 28.3 pg (27.0-31.0) 05/17/17 05:02 MCHC Differential 33.6 pg (28.0-36.0) 05/17/17 05:02 RDW 15.3 % (11.5-20.0) 05/17/17 05:02 Plt Count 316 Th/cmm (150-400) 05/17/17 05:02 MPV 8.5 fl 05/17/17 05:02 Neutrophils % 79.3 % (40.0-80.0) 05/16/17 06:34 Band Neutrophils % 1 % (0-10) 05/17/17 05:02 Lymphocytes % 11.0 % (20.0-50.0) L 05/16/17 06:34 Monocytes % 7.3 % (2.0-10.0) 05/16/17 06:34 Eosinophils % 1.9 % (0.0-5.0) 05/16/17 06:34 Basophils % 0.5 % (0.0-2.0) 05/16/17 06:34 Neutrophils (Manual) 84 % (40-80) H 05/17/17 05:02 Lymphocytes 10 % (20-50) L 05/17/17 05:02 Monocytes 5 % (2-10) 05/17/17 05:02 Platelet Estimate ADEQUATE (NORMAL) 05/17/17 05:02 Eos Smear Source URINE 05/14/17 18:00 Eos Smear Total Cells FEW EOSINOPHILS SEEN (NONE SEEN) 05/14/17 18:00 PT 11.9 SECONDS (9.5-11.5) H 05/13/17 17:42 INR 1.13 (0.5-1.4) 05/13/17 17:42 PTT (Actin FS) 30.5 SECONDS (26.0-38.0) 05/15/17 12:30 Sodium 135 mEq/L (136-145) L 05/17/17 05:02 Potassium 4.6 mEq/L (3.5-5.1) 05/17/17 05:02 Chloride 103 mEq/L (98-107) 05/17/17 05:02 Carbon Dioxide 22.8 mEq/L (21.0-31.0) 05/17/17 05:02 Anion Gap 13.8 (7.0-16.0) 05/17/17 05:02 BUN 66 mg/dL (7-25) H 05/17/17 05:02 Creatinine 2.3 mg/dL (0.7-1.3) H 05/17/17 05:02 Est GFR ( Amer) TNP 05/17/17 05:02 Est GFR (Non-Af Amer) TNP 05/17/17 05:02 BUN/Creatinine Ratio 28.7 05/17/17 05:02 Glucose 242 mg/dL (70-105) H 05/17/17 05:02 POC Glucose 116 MG/DL (70 - 105) H 05/16/17 22:02 Hemoglobin A1c % 6.1 % (4.0-6.0) H 05/15/17 06:30 Plasma/Ser Osmolality 301 mOsmol/kg (280-301) 05/14/17 18:20 Whole Bld Lactic Acid 1.58 mmol/L (0.60-1.99) 05/13/17 17:42 Uric Acid 7.7 mg/dL (4.4-7.6) H 05/15/17 06:30 Calcium 8.6 mg/dL (8.6-10.3) 05/17/17 05:02 Phosphorus 5.4 mg/dL (2.5-5.0) H 05/15/17 06:30 Magnesium 2.2 mg/dL (1.9-2.7) 05/15/17 06:30 Total Bilirubin 0.4 mg/dL (0.3-1.0) 05/17/17 05:02 AST 20 U/L (13-39) 05/17/17 05:02 ALT 3 U/L (7-52) L 05/17/17 05:02 Alkaline Phosphatase 54 U/L (34-104) 05/17/17 05:02 Creatine Kinase 35 U/L (30-223) 05/16/17 23:06 Troponin I 0.02 ng/mL (0.01-0.05) 05/16/17 23:06 B-Natriuretic Peptide 1560.0 pg/mL (5.0-100.0) H 05/17/17 05:02 Total Protein 7.0 gm/dL (6.0-8.3) 05/17/17 05:02 Albumin 2.9 gm/dL (4.2-5.5) L 05/17/17 05:02 Globulin 4.1 gm/dL 05/17/17 05:02 Albumin/Globulin Ratio 0.7 (1.0-1.8) L 05/17/17 05:02 TSH 2.74 uIU/ml (0.34-5.60) 05/15/17 06:30 Urine Source CATH 05/13/17 19:50 Urine Color YELLOW 05/13/17 19:50 Urine Clarity CLOUDY (CLEAR) 05/13/17 19:50 Urine pH 6.0 05/13/17 19:50 Ur Specific [place] 1.015 (1.005-1.030) 05/13/17 19:50 Urine Protein 100 mg/dL (NEGATIVE) H 05/13/17 19:50 Urine Glucose (UA) NEGATIVE mg/dL (NEGATIVE) 05/13/17 19:50 Urine Ketones NEGATIVE mg/dL (NEGATIVE) 05/13/17 19:50 Urine Blood LARGE (NEGATIVE) H 05/13/17 19:50 Urine Nitrate NEGATIVE (NEGATIVE) 05/13/17 19:50 Urine Bilirubin NEGATIVE (NEGATIVE) 05/13/17 19:50 Urine Urobilinogen 0.2 E.U./dL (0.2 - 1.0) 05/13/17 19:50 Ur Leukocyte Esterase LARGE (NEGATIVE) H 05/13/17 19:50 Urine RBC 50-100 /hpf (0-5) H 05/13/17 19:50 Urine WBC >100 /hpf (0-5) H 05/13/17 19:50 Ur Epithelial Cells NONE SEEN /lpf (FEW) 05/13/17 19:50 Urine Bacteria NONE SEEN /hpf (NONE SEEN) 05/13/17 19:50 Ur Random Sodium 30 mmol/L 05/14/17 18:00 Urine Creatinine 36.4 mg/dl (Not Estab.) 05/14/17 18:00 Urine Microalbumin 363.5 ug/mL (Not Estab.) 05/14/17 18:00 Microalb/Creat Ratio 998.6 mg/g creat (0.0-30.0) H 05/14/17 18:00 Random Vancomycin 14.7 ug/mL (5.0-40.0) 05/17/17 08:26 Blood Type B POSITIVE 05/13/17 20:36 Antibody Screen NEGATIVE 05/13/17 20:36 - Physical Exam Vitals and I&O: Vital Signs Temp 98.3 F 05/17/17 13:00 Pulse 77 05/17/17 13:07 Resp 21 05/17/17 13:07 BP 145/72 05/17/17 13:00 Pulse Ox 96 05/17/17 13:07 Intake & Output 05/16/17 05/17/17 05/17/17 18:59 06:59 18:59 Intake Total 300 677.667 60 Output Total 850 600 Balance -550 77.667 60 Weight (lbs) 65.771 kg 62.596 kg 62.596 kg Intake: Intake, IV Amount 300 77.667 Azithromycin 250 mg In 250 Sodium Chloride 0.9% 250 ml @ 250 mls/hr IV Q24HR YESSICA Rx#:[id number] Diltiazem 125 mg In 27.667 Dextrose 5% 100 ml @ 10 MG/HR 10 mls/hr IV TITR YESSICA Rx#:[id number] Piperacillin Sodium/ 50 50 Tazobact 3.375 gm In Sodium Chloride 0.9% 50 ml @ 100 mls/hr IV Q8HR YESSICA Rx#:[id number] Oral 0 Tube Feeding 600 60 Output: Urine 850 600 Other: # Bowel Movements 1 Stool Characteristics Liquid Soft Brown Liquid Brown Active Medications: Current Medications Acetaminophen (Tylenol) 650 mg PO Q4HR PRN PRN Reason: Pain Or Fever above 101 Stop: 07/14/17 15:15 Last Admin: 05/17/17 11:11 Dose: 650 mg Albuterol Sulfate (Albuterol 2.5mg/3ml Neb Ud) 2.5 mg HHN Q6HRT YESSICA Stop: 07/14/17 00:59 Last Admin: 05/17/17 13:07 Dose: 2.5 mg Atorvastatin Calcium (Lipitor) 10 mg GT HS YESSICA PRN Reason: Protocol Stop: 07/14/17 20:59 Last Admin: 05/16/17 21:44 Dose: 10 mg Carbidopa/Levodopa (Sinemet 25mg-100 Mg) 1 tab PO TID YESSICA Stop: 07/14/17 08:59 Last Admin: 05/17/17 09:40 Dose: 1 tab Heparin Sodium (Porcine) (Heparin) 5,000 units SUBQ Q8H YESSICA Stop: 07/14/17 14:59 Last Admin: 05/17/17 07:08 Dose: Not Given Azithromycin 250 mg/ Sodium (Chloride) 250 mls @ 250 mls/hr IV Q24HR [facility] Stop: 05/20/17 08:59 Last Admin: 05/17/17 09:00 Dose: 250 mls/hr Piperacillin Sod/Tazobactam (Sod 3.375 gm/ Sodium Chloride) 50 mls @ 100 mls/ hr IV Q8HR [facility] Stop: 07/14/17 15:14 Last Admin: 05/17/17 04:18 Dose: 100 mls/hr Diltiazem HCl 125 mg/ Dextrose 125 mls @ 10 mls/hr IV TITR YESSICA; 10 MG/HR PRN Reason: Protocol Stop: 07/16/17 02:26 Last Titration: 05/17/17 06:00 Dose: 5 mg/hr, 5 mls/hr Vancomycin HCl 500 mg/ Sodium (Chloride) 100 mls @ 100 mls/hr IV 1200 [facility] Stop: 05/17/17 16:00 Last Admin: 05/17/17 11:59 Dose: 100 mls/hr Insulin Aspart (Novolog Insulin Sliding Scale) 0 units SUBQ Q6HR YESSICA PRN Reason: Protocol Stop: 07/14/17 00:00 Last Admin: 05/17/17 11:35 Dose: 5 units Insulin Detemir (Levemir Insulin) 14 units SUBQ DAILY YESSICA PRN Reason: Protocol Stop: 07/15/17 08:59 Last Admin: 05/17/17 09:41 Dose: 14 units Ipratropium Fraser (Atrovent Neb 0.5mg/2.5ml) 0.5 mg HHN Q6HRT [facility] Stop: 07/16/17 00:59 Last Admin: 05/17/17 13:07 Dose: 0.5 mg Isosorbide Dinitrate (Isordil) 10 mg GT TID YESSICA Stop: 07/14/17 08:59 Last Admin: 05/17/17 09:39 Dose: 10 mg Lactobacillus Rhamnosus (Culturelle) 1 each PO DAILY [facility] Stop: 07/17/17 08:59 Lactulose (Cephulac) 20 gm PO TID [facility] Stop: 07/14/17 08:59 Last Admin: 05/17/17 09:39 Dose: 20 gm Levetiracetam (Keppra) 250 mg NG BID [facility] Stop: 07/14/17 08:59 Last Admin: 05/17/17 09:40 Dose: 250 mg Metoprolol Tartrate (Lopressor) 50 mg PO BID [facility] Stop: 07/16/17 16:59 Miscellaneous (Vte Chemical Prophylaxis Screen/ Admission) 1 ea MC PRN PRN PRN Reason: PROTOCOL Stop: 07/14/17 09:25 Miscellaneous (Clinical Monitoring) 1 ea MC DAILY PRN PRN Reason: RENAL Stop: 07/15/17 12:32 Miscellaneous (Vancomycin Iv Per Pharmacy) 1 ea MC PRN [facility] Stop: 07/15/17 22:59 Miscellaneous (Probiotic Screen) 1 ea MC PRN PRN PRN Reason: PROTOCOL Stop: 07/16/17 09:33 Morphine Sulfate (Morphine) 2 mg IVP Q3H PRN PRN Reason: PAIN Stop: 07/13/17 19:46 Last Admin: 05/17/17 11:12 Dose: 2 mg Mupirocin (Bactroban Oint) 1 appl TP BID [facility] Stop: 07/14/17 16:59 Last Admin: 05/17/17 09:50 Dose: 1 appl Pantoprazole Sodium (Protonix) 40 mg GT DAILY [facility] Stop: 07/14/17 08:59 Last Admin: 05/17/17 09:39 Dose: 40 mg Rifaximin (Xifaxan) 550 mg GT BID [facility] Stop: 07/14/17 08:59 Last Admin: 05/17/17 09:50 Dose: 550 mg General: No acute distress HEENT: Atraumatic, Mucous membr. moist/pink Neck: Supple, +2 carotid pulse wo bruit Cardiovascular: Regular rate, Normal S1, Normal S2 Lungs: Other (few rhonchi, mild congestion) Abdomen: Bowel sounds, Soft Extremities: no Edema Neurological: Sensation intact Skin: no Rash Psych/Mental Status: Mood NL Assessment/Plan - Problem List Patient Problems: All Active Problems COUGH AND CONGESTION (Acute) - Assessment Assessment: NICK on CKD A LOC secondary to metabolic encephalopathy/medications Dehydration Essential hypertension with CKD COPD Chronic atrial fibrillation Status post CVA Aspiration pneumonia/dysphagia status post PEG Type 2 diabetes mellitus with CKD Acute Decompensated CHF - Plan Plan: Lab - Result Diagrams 05/15/17 06:30 05/15/17 06:30 Current Medications Acetaminophen (Tylenol) 650 mg PO Q4HR PRN PRN Reason: Pain Or Fever above 101 Stop: 07/14/17 15:15 Last Admin: 05/15/17 16:21 Dose: 650 mg Albuterol Sulfate (Albuterol 2.5mg/3ml Neb Ud) 2.5 mg HHN Q6HRT YESSICA Stop: 07/14/17 00:59 Last Admin: 05/15/17 16:05 Dose: 2.5 mg Atorvastatin Calcium (Lipitor) 10 mg GT HS YESSICA PRN Reason: Protocol Stop: 07/14/17 20:59 Carbidopa/Levodopa (Sinemet 25mg-100 Mg) 1 tab PO TID YESSICA Stop: 07/14/17 08:59 Last Admin: 05/15/17 14:02 Dose: 1 tab Heparin Sodium (Porcine) (Heparin) 5,000 units SUBQ Q8H [facility]ESSICA Stop: 07/14/17 14:59 Last Admin: 05/15/17 16:24 Dose: 5,000 units Sodium Chloride (Nacl 0.9%) 1,000 mls @ 60 mls/hr IV .[id number] [facility] Stop: 07/13/17 06:40 Last Admin: 05/14/17 17:16 Dose: 60 mls/hr Azithromycin 250 mg/ Sodium (Chloride) 250 mls @ 250 mls/hr IV Q24HR YESSICA Stop: 05/20/17 08:59 Piperacillin Sod/Tazobactam (Sod 3.375 gm/ Sodium Chloride) 50 mls @ 100 mls/ hr IV Q8HR [facility] Stop: 07/14/17 15:14 Last Admin: 05/15/17 15:57 Dose: 100 mls/hr Insulin Aspart (Novolog Insulin Sliding Scale) 0 units SUBQ Q6HR YESSICA PRN Reason: Protocol Stop: 07/14/17 00:00 Last Admin: 05/15/17 17:09 Dose: Not Given Insulin Detemir (Levemir Insulin) 14 units SUBQ DAILY [facility] PRN Reason: Protocol Stop: 07/15/17 08:59 Isosorbide Dinitrate (Isordil) 10 mg GT TID [facility] Stop: 07/14/17 08:59 Last Admin: 05/15/17 14:02 Dose: 10 mg Lactulose (Cephulac) 20 gm PO TID [facility] Stop: 07/14/17 08:59 Last Admin: 05/15/17 14:02 Dose: 20 gm Levetiracetam (Keppra) 250 mg NG BID [facility] Stop: 07/14/17 08:59 Last Admin: 05/15/17 16:23 Dose: 250 mg Metoprolol Tartrate (Lopressor) 37.5 mg GT BID [facility] Stop: 07/14/17 00:14 Last Admin: 05/15/17 16:22 Dose: 37.5 mg Miscellaneous (Vte Chemical Prophylaxis Screen/ Admission) 1 ea MC PRN PRN PRN Reason: PROTOCOL Stop: 07/14/17 09:25 Morphine Sulfate (Morphine) 2 mg IVP Q3H PRN PRN Reason: PAIN Stop: 07/13/17 19:46 Last Admin: 05/14/17 21:16 Dose: 2 mg Mupirocin (Bactroban Oint) 1 appl TP BID [facility] Stop: 07/14/17 16:59 Last Admin: 05/15/17 16:24 Dose: 1 appl Pantoprazole Sodium (Protonix) 40 mg GT DAILY [facility] Stop: 07/14/17 08:59 Last Admin: 05/15/17 08:36 Dose: 40 mg Rifaximin (Xifaxan) 550 mg GT BID [facility] Stop: 07/14/17 08:59 Last Admin: 05/15/17 16:23 Dose: 550 mg Kidney function slightly improved with a BUN down to 66 and creatinine of 2.3 Sodium improved to 135 on normal saline White count stable at 12.7, on Zosyn Chest x-ray suggestive of right effusion with possible CHF, and elevated BNP of 1560, will discontinue IV fluids and continue feedings Creatinine 2.3-2.4 is likely his new baseline Reviewed his meds Follow-up electrolytes administer extra dose of lasix Lab - Result Diagrams 05/17/17 05:02 05/17/17 05:02 Nutritional Asmnt/Malnutr-PDOC - Dietary Evaluation Malnutrition Findings (Please click <Entered> for more info): Nutritional Asmnt/Malnutrition Start: 05/15/17 13: 56 Text: Status: Complete Freq: Document 05/15/17 13:56 GSUN (Rec: 05/15/17 14:18 [email or web address] [id number]) Nutritional Asmnt/Malnutrition Patient General Information Nutritional Screening High Risk Screening Diagnosis PNA, NICK, icnreasing renal failure, CVA, CHF, DM Pertinent Medical Hx/Surgical Hx CVA, dementia, afib, CAD, HTN, dyslipidemia, epilepsy, GERD, aspiration PNA, DM, CKD, dehydration, C. diff, anemia D Subjective Information 86 year old male from SNF. Pt greeted RD. Pt is overall thin , moderate to severe wasting to chest, clavicles, extremities. Observed Glytrol running at 60ml/hr x20hrs during visit. Unable to obtain CBW due to bedscale not calibrated. Discussed with YVETTE Farooq regarding tube feeding recommendations. Current Diet Order/ Nutrition Support Glytrol at 60ml/hr x 20hrs, providing 1200kcal 54g protein Pertinent Medications Lipitor, Novolog, Levemir, Cephulac, Morphine, Protonix, Nacl 0.9% Pertinent Labs 05/13: potassium 5.3H, BUN 80H, creatinine 2.4H, glucose 103 05/15: potassium WNL, BUN 70H, creatinine 2.4H, glucose 239H, A1c 6.1H, phosphorus 5.4H Nutritional Hx/Data Height 1.68 m Height (Calculated Centimeters) 167.6 Current Weight (lbs) 65.771 kg Weight (Calculated Kilograms) 65.8 Weight (Calculated Grams) 22039.9 Steward Body Weight 142 Weight Status Approriate GI Symptoms Difficult in: Swallowing Cultural/Ethnic/[employer]odaism Belief [place] [facility]: Glucerna 1.2 at 85ml/hr x 20hrs, providing 2040kcal, promote weight gain. Skin Integrity/Comment: Gee 12. Skin intact. Estimated Nutritional Goals Calories/Kcals/Kg CBW 145lb/65.9kg Kcals Calculated 1976-7kcal (30-35kcal/kg) Protein Calculated 46-92g (0.7-1.4g/kg, renal vs moderate to severe wasting) Fluid: ml Per MD (renal) Nutritional Problem 2. Problem Problem Impaired nutrient utilization related to Etiology NICK, hx CKD aeb Signs/Symptoms: "increasing renal failure," potaasum 5.3H on adm, BUN 70H, fisher trawl net 2.4H, phosphorus 5.4H 1. Problem Problem Inadequate intake from enteral nutrition infusion related to Etiology estimated nutritional needs aeb Signs/Symptoms: providing to meet 61% lower end kcal needs Intervention/Recommendation Comments 1. Recommend Novasource Renal at 50ml/hr x 20hrs, providing 2000kcal and 91g protein. Current order Glytrol at 60ml/ hr x 20hrs is only providing 1200kcal, pt recieves 2040kcal at [facility]. Expected Outcomes/Goals Expected Outcomes/Goals 1. Pt to meet at least 100% of estimated nutritional needs on tube feeding with tolerance .
--- NOTE | 2017-05-17 16:18 | General Progress Note ---
Subjective - Review of Systems Service Date: 05/17/17 Subjective: Patient seen and examined in ICU transfered to ICU last night to afib RVR with breathing issue. seems better today overnight was on Cardizem drip off now HR stable family was at the bedside Objective - Results Result Diagrams: 05/17/17 05:02 05/17/17 05:02 Recent Labs: Laboratory Last Values WBC 12.7 Th/cmm (4.8-10.8) H D 05/17/17 05:02 RBC 3.14 Mil/cmm (3.80-5.80) L 05/17/17 05:02 Hgb 8.9 gm/dL (12.6-17.4) L 05/17/17 05:02 Hct 26.4 % (39.0-49.0) L 05/17/17 05:02 MCV 84.1 fl (80-99) 05/17/17 05:02 MCH 28.3 pg (27.0-31.0) 05/17/17 05:02 MCHC Differential 33.6 pg (28.0-36.0) 05/17/17 05:02 RDW 15.3 % (11.5-20.0) 05/17/17 05:02 Plt Count 316 Th/cmm (150-400) 05/17/17 05:02 MPV 8.5 fl 05/17/17 05:02 Neutrophils % 79.3 % (40.0-80.0) 05/16/17 06:34 Band Neutrophils % 1 % (0-10) 05/17/17 05:02 Lymphocytes % 11.0 % (20.0-50.0) L 05/16/17 06:34 Monocytes % 7.3 % (2.0-10.0) 05/16/17 06:34 Eosinophils % 1.9 % (0.0-5.0) 05/16/17 06:34 Basophils % 0.5 % (0.0-2.0) 05/16/17 06:34 Neutrophils (Manual) 84 % (40-80) H 05/17/17 05:02 Lymphocytes 10 % (20-50) L 05/17/17 05:02 Monocytes 5 % (2-10) 05/17/17 05:02 Platelet Estimate ADEQUATE (NORMAL) 05/17/17 05:02 Eos Smear Source URINE 05/14/17 18:00 Eos Smear Total Cells FEW EOSINOPHILS SEEN (NONE SEEN) 05/14/17 18:00 PT 11.9 SECONDS (9.5-11.5) H 05/13/17 17:42 INR 1.13 (0.5-1.4) 05/13/17 17:42 PTT (Actin FS) 30.5 SECONDS (26.0-38.0) 05/15/17 12:30 Sodium 135 mEq/L (136-145) L 05/17/17 05:02 Potassium 4.6 mEq/L (3.5-5.1) 05/17/17 05:02 Chloride 103 mEq/L (98-107) 05/17/17 05:02 Carbon Dioxide 22.8 mEq/L (21.0-31.0) 05/17/17 05:02 Anion Gap 13.8 (7.0-16.0) 05/17/17 05:02 BUN 66 mg/dL (7-25) H 05/17/17 05:02 Creatinine 2.3 mg/dL (0.7-1.3) H 05/17/17 05:02 Est GFR ( Amer) TNP 05/17/17 05:02 Est GFR (Non-Af Amer) TNP 05/17/17 05:02 BUN/Creatinine Ratio 28.7 05/17/17 05:02 Glucose 242 mg/dL (70-105) H 05/17/17 05:02 POC Glucose 116 MG/DL (70 - 105) H 05/16/17 22:02 Hemoglobin A1c % 6.1 % (4.0-6.0) H 05/15/17 06:30 Plasma/Ser Osmolality 301 mOsmol/kg (280-301) 05/14/17 18:20 Whole Bld Lactic Acid 1.58 mmol/L (0.60-1.99) 05/13/17 17:42 Uric Acid 7.7 mg/dL (4.4-7.6) H 05/15/17 06:30 Calcium 8.6 mg/dL (8.6-10.3) 05/17/17 05:02 Phosphorus 5.4 mg/dL (2.5-5.0) H 05/15/17 06:30 Magnesium 2.2 mg/dL (1.9-2.7) 05/15/17 06:30 Total Bilirubin 0.4 mg/dL (0.3-1.0) 05/17/17 05:02 AST 20 U/L (13-39) 05/17/17 05:02 ALT 3 U/L (7-52) L 05/17/17 05:02 Alkaline Phosphatase 54 U/L (34-104) 05/17/17 05:02 Creatine Kinase 35 U/L (30-223) 05/16/17 23:06 Troponin I 0.02 ng/mL (0.01-0.05) 05/16/17 23:06 B-Natriuretic Peptide 1560.0 pg/mL (5.0-100.0) H 05/17/17 05:02 Total Protein 7.0 gm/dL (6.0-8.3) 05/17/17 05:02 Albumin 2.9 gm/dL (4.2-5.5) L 05/17/17 05:02 Globulin 4.1 gm/dL 05/17/17 05:02 Albumin/Globulin Ratio 0.7 (1.0-1.8) L 05/17/17 05:02 TSH 2.74 uIU/ml (0.34-5.60) 05/15/17 06:30 Urine Source CATH 05/13/17 19:50 Urine Color YELLOW 05/13/17 19:50 Urine Clarity CLOUDY (CLEAR) 05/13/17 19:50 Urine pH 6.0 05/13/17 19:50 Ur Specific [place] 1.015 (1.005-1.030) 05/13/17 19:50 Urine Protein 100 mg/dL (NEGATIVE) H 05/13/17 19:50 Urine Glucose (UA) NEGATIVE mg/dL (NEGATIVE) 05/13/17 19:50 Urine Ketones NEGATIVE mg/dL (NEGATIVE) 05/13/17 19:50 Urine Blood LARGE (NEGATIVE) H 05/13/17 19:50 Urine Nitrate NEGATIVE (NEGATIVE) 05/13/17 19:50 Urine Bilirubin NEGATIVE (NEGATIVE) 05/13/17 19:50 Urine Urobilinogen 0.2 E.U./dL (0.2 - 1.0) 05/13/17 19:50 Ur Leukocyte Esterase LARGE (NEGATIVE) H 05/13/17 19:50 Urine RBC 50-100 /hpf (0-5) H 05/13/17 19:50 Urine WBC >100 /hpf (0-5) H 05/13/17 19:50 Ur Epithelial Cells NONE SEEN /lpf (FEW) 05/13/17 19:50 Urine Bacteria NONE SEEN /hpf (NONE SEEN) 05/13/17 19:50 Ur Random Sodium 30 mmol/L 05/14/17 18:00 Urine Creatinine 36.4 mg/dl (Not Estab.) 05/14/17 18:00 Urine Microalbumin 363.5 ug/mL (Not Estab.) 05/14/17 18:00 Microalb/Creat Ratio 998.6 mg/g creat (0.0-30.0) H 05/14/17 18:00 Random Vancomycin 14.7 ug/mL (5.0-40.0) 05/17/17 08:26 Blood Type B POSITIVE 05/13/17 20:36 Antibody Screen NEGATIVE 05/13/17 20:36 - Physical Exam Vitals and I&O: Vital Signs Temp 98.3 F 05/17/17 15:00 Pulse 83 05/17/17 15:00 Resp 21 05/17/17 15:00 BP 123/65 05/17/17 15:00 Pulse Ox 96 05/17/17 15:00 Intake & Output 05/16/17 05/17/17 05/17/17 18:59 06:59 18:59 Intake Total 300 727.667 110 Output Total 850 600 Balance -550 127.667 110 Weight (lbs) 65.771 kg 62.596 kg 62.596 kg Intake: Intake, IV Amount 300 127.667 50 Azithromycin 250 mg In 250 Sodium Chloride 0.9% 250 ml @ 250 mls/hr IV Q24HR YESSICA Rx#:[id number] Diltiazem 125 mg In 27.667 Dextrose 5% 100 ml @ 10 MG/HR 10 mls/hr IV TITR YESSICA Rx#:[id number] Piperacillin Sodium/ 50 100 50 Tazobact 3.375 gm In Sodium Chloride 0.9% 50 ml @ 100 mls/hr IV Q8HR YESSICA Rx#:[id number] Oral 0 Tube Feeding 600 60 Output: Urine 850 600 Other: # Bowel Movements 1 Stool Characteristics Liquid Soft Brown Liquid Brown Active Medications: Current Medications Acetaminophen (Tylenol) 650 mg PO Q4HR PRN PRN Reason: Pain Or Fever above 101 Stop: 07/14/17 15:15 Last Admin: 05/17/17 11:11 Dose: 650 mg Albuterol Sulfate (Albuterol 2.5mg/3ml Neb Ud) 2.5 mg HHN Q6HRT [facility]ESS[facility] Stop: 07/14/17 00:59 Last Admin: 05/17/17 13:07 Dose: 2.5 mg Atorvastatin Calcium (Lipitor) 10 mg GT HS YESSICA PRN Reason: Protocol Stop: 07/14/17 20:59 Last Admin: 05/16/17 21:44 Dose: 10 mg Carbidopa/Levodopa (Sinemet 25mg-100 Mg) 1 tab PO TID [facility] Stop: 07/14/17 08:59 Last Admin: 05/17/17 14:30 Dose: 1 tab Heparin Sodium (Porcine) (Heparin) 5,000 units SUBQ Q8H [facility] Stop: 07/14/17 14:59 Last Admin: 05/17/17 15:10 Dose: 5,000 units Azithromycin 250 mg/ Sodium (Chloride) 250 mls @ 250 mls/hr IV Q24HR [facility] Stop: 05/20/17 08:59 Last Admin: 05/17/17 09:00 Dose: 250 mls/hr Piperacillin Sod/Tazobactam (Sod 3.375 gm/ Sodium Chloride) 50 mls @ 100 mls/ hr IV Q8HR [facility] Stop: 07/14/17 15:14 Last Infusion: 05/17/17 13:30 Dose: Infused Diltiazem HCl 125 mg/ Dextrose 125 mls @ 10 mls/hr IV TITR YESSICA; 10 MG/HR PRN Reason: Protocol Stop: 07/16/17 02:26 Last Titration: 05/17/17 06:00 Dose: 5 mg/hr, 5 mls/hr Insulin Aspart (Novolog Insulin Sliding Scale) 0 units SUBQ Q6HR [facility]ESSICA PRN Reason: Protocol Stop: 07/14/17 00:00 Last Admin: 05/17/17 11:35 Dose: 5 units Insulin Detemir (Levemir Insulin) 14 units SUBQ DAILY [facility] PRN Reason: Protocol Stop: 07/15/17 08:59 Last Admin: 05/17/17 09:41 Dose: 14 units Ipratropium [place] (Atrovent Neb 0.5mg/2.5ml) 0.5 mg HHN Q6HRT [facility] Stop: 07/16/17 00:59 Last Admin: 05/17/17 13:07 Dose: 0.5 mg Isosorbide Dinitrate (Isordil) 10 mg GT TID [facility] Stop: 07/14/17 08:59 Last Admin: 05/17/17 14:30 Dose: 10 mg Lactobacillus Rhamnosus (Culturelle) 1 each PO DAILY [facility] Stop: 07/17/17 08:59 Lactulose (Cephulac) 20 gm PO TID [facility] Stop: 07/14/17 08:59 Last Admin: 05/17/17 15:05 Dose: 20 gm Levetiracetam (Keppra) 250 mg NG BID [facility] Stop: 07/14/17 08:59 Last Admin: 05/17/17 09:40 Dose: 250 mg Metoprolol Tartrate (Lopressor) 50 mg PO BID [facility] Stop: 07/16/17 16:59 Miscellaneous (Vte Chemical Prophylaxis Screen/ Admission) 1 ea PRN PRN PRN Reason: PROTOCOL Stop: 07/14/17 09:25 Miscellaneous (Clinical Monitoring) 1 ea [facility] DAILY PRN PRN Reason: RENAL Stop: 07/15/17 12:32 Miscellaneous (Vancomycin Iv Per Pharmacy) 1 ea [facility] PRN [facility] Stop: 07/15/17 22:59 Miscellaneous (Probiotic Screen) 1 ea PRN PRN PRN Reason: PROTOCOL Stop: 07/16/17 09:33 Morphine Sulfate (Morphine) 2 mg IVP Q3H PRN PRN Reason: PAIN Stop: 07/13/17 19:46 Last Admin: 05/17/17 11:12 Dose: 2 mg Mupirocin (Bactroban Oint) 1 appl TP BID [facility] Stop: 07/14/17 16:59 Last Admin: 05/17/17 09:50 Dose: 1 appl Pantoprazole Sodium (Protonix) 40 mg GT DAILY [facility] Stop: 07/14/17 08:59 Last Admin: 05/17/17 09:39 Dose: 40 mg Rifaximin (Xifaxan) 550 mg GT BID [facility] Stop: 07/14/17 08:59 Last Admin: 05/17/17 09:50 Dose: 550 mg General: No acute distress HEENT: Atraumatic, Mucous membr. 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 HTN renal disease Seizure disorder - Plan Plan: Zosyn and VANCO per ID rec Sputum culture Lasix one dose given this afternoon per Nephrology ECHO ordered Renal US reviewed no significant findings noted Basal bolus insulin and accucheck Heparin for Afib Metoprolol increased to 50 BID Cardizem drip pn Tube feeding Asp precaution Seizure meds Metoprolol Monitor vitals HHN and oxygen Supportive care ID Nephrology and Cardiology on board Follow up labs and chest xray in am Plan of care discussed with nursing staff Family was updated on pt's condition and plan of care Nutritional Asmnt/Malnutr-PDOC - Dietary Evaluation Malnutrition Findings (Please click <Entered> for more info): Nutritional Asmnt/Malnutrition Start: 05/15/17 13: 56 Text: Status: Complete Freq: Document 05/15/17 13:56 GSUN (Rec: 05/15/17 14:18 GSUN [id number]) Nutritional Asmnt/Malnutrition Patient General Information Nutritional Screening High Risk Screening Diagnosis PNA, NICK, icnreasing renal failure, CVA, CHF, DM Pertinent Medical Hx/Surgical Hx CVA, dementia, afib, CAD, HTN, dyslipidemia, epilepsy, GERD, aspiration PNA, DM, CKD, dehydration, C. diff, anemia D Subjective Information 86 year old male from SNF. Pt greeted RD. Pt is overall thin , moderate to severe wasting to chest, clavicles, extremities. Observed Glytrol running at 60ml/hr x20hrs during visit. Unable to obtain CBW due to bedscale not calibrated. Discussed with YVETTE Farooq regarding tube feeding recommendations. Current Diet Order/ Nutrition Support Glytrol at 60ml/hr x 20hrs, providing 1200kcal 54g protein Pertinent Medications Lipitor, Novolog, Levemir, Cephulac, Morphine, Protonix, Nacl 0.9% Pertinent Labs 05/13: potassium 5.3H, BUN 80H, creatinine 2.4H, glucose 103 05/15: potassium WNL, BUN 70H, creatinine 2.4H, glucose 239H, A1c 6.1H, phosphorus 5.4H Nutritional Hx/Data Height 1.68 m Height (Calculated Centimeters) 167.6 Current Weight (lbs) 65.771 kg Weight (Calculated Kilograms) 65.8 Weight (Calculated Grams) 34967.9 [place] Body Weight 142 Weight Status Approriate GI Symptoms Difficult in: Swallowing Cultural/Ethnic/Adventism Belief [facility]: Glucerna 1.2 at 85ml/hr x 20hrs, providing 2040kcal, promote weight gain. Skin Integrity/Comment: Gee 12. Skin intact. Estimated Nutritional Goals Calories/Kcals/Kg CBW 145lb/65.9kg Kcals Calculated 1976-2307kcal (30-35kcal/kg) Protein Calculated 46-92g (0.7-1.4g/kg, renal vs moderate to severe wasting) Fluid: ml Per MD (renal) Nutritional Problem 2. 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 Problem Problem Inadequate intake from enteral nutrition infusion related to Etiology estimated nutritional needs aeb Signs/Symptoms: providing to meet 61% lower end kcal needs Intervention/Recommendation Comments 1. Recommend Novasource Renal at 50ml/hr x 20hrs, providing 2000kcal and 91g protein. Current order Glytrol at 60ml/ hr x 20hrs is only providing 1200kcal, pt recieves 2040kcal at [facility]. Expected Outcomes/Goals Expected Outcomes/Goals 1. Pt to meet at least 100% of estimated nutritional needs on tube feeding with tolerance .
[2017-05-17] MEDS: Atorvastatin Calcium 10 MG TAB GT SCH (21:19)
--- NOTE | 2017-05-18 00:01 | Infectious Disease Prog Note ---
Infectious Disease Subjective - Review of Systems Service Date: 05/17/17 Subjective: No new change. No fever. Infectious Disease Objective - Results Result Diagrams: 05/18/17 07:33 05/18/17 04:40 Recent Labs: Laboratory Last Values WBC 12.7 Th/cmm (4.8-10.8) H D 05/17/17 05:02 RBC 3.14 Mil/cmm (3.80-5.80) L 05/17/17 05:02 Hgb 8.9 gm/dL (12.6-17.4) L 05/17/17 05:02 Hct 26.4 % (39.0-49.0) L 05/17/17 05:02 MCV 84.1 fl (80-99) 05/17/17 05:02 MCH 28.3 pg (27.0-31.0) 05/17/17 05:02 MCHC Differential 33.6 pg (28.0-36.0) 05/17/17 05:02 RDW 15.3 % (11.5-20.0) 05/17/17 05:02 Plt Count 316 Th/cmm (150-400) 05/17/17 05:02 MPV 8.5 fl 05/17/17 05:02 Neutrophils % 79.3 % (40.0-80.0) 05/16/17 06:34 Band Neutrophils % 1 % (0-10) 05/17/17 05:02 Lymphocytes % 11.0 % (20.0-50.0) L 05/16/17 06:34 Monocytes % 7.3 % (2.0-10.0) 05/16/17 06:34 Eosinophils % 1.9 % (0.0-5.0) 05/16/17 06:34 Basophils % 0.5 % (0.0-2.0) 05/16/17 06:34 Neutrophils (Manual) 84 % (40-80) H 05/17/17 05:02 Lymphocytes 10 % (20-50) L 05/17/17 05:02 Monocytes 5 % (2-10) 05/17/17 05:02 Platelet Estimate ADEQUATE (NORMAL) 05/17/17 05:02 Eos Smear Source URINE 05/14/17 18:00 Eos Smear Total Cells FEW EOSINOPHILS SEEN (NONE SEEN) 05/14/17 18:00 PT 11.9 SECONDS (9.5-11.5) H 05/13/17 17:42 INR 1.13 (0.5-1.4) 05/13/17 17:42 PTT (Actin FS) 30.5 SECONDS (26.0-38.0) 05/15/17 12:30 Sodium 135 mEq/L (136-145) L 05/17/17 05:02 Potassium 4.6 mEq/L (3.5-5.1) 05/17/17 05:02 Chloride 103 mEq/L (98-107) 05/17/17 05:02 Carbon Dioxide 22.8 mEq/L (21.0-31.0) 05/17/17 05:02 Anion Gap 13.8 (7.0-16.0) 05/17/17 05:02 BUN 66 mg/dL (7-25) H 05/17/17 05:02 Creatinine 2.3 mg/dL (0.7-1.3) H 05/17/17 05:02 Est GFR ( Amer) TNP 05/17/17 05:02 Est GFR (Non-Af Amer) TNP 05/17/17 05:02 BUN/Creatinine Ratio 28.7 05/17/17 05:02 Glucose 242 mg/dL (70-105) H 05/17/17 05:02 POC Glucose 116 MG/DL (70 - 105) H 05/16/17 22:02 Hemoglobin A1c % 6.1 % (4.0-6.0) H 05/15/17 06:30 Plasma/Ser Osmolality 301 mOsmol/kg (280-301) 05/14/17 18:20 Whole Bld Lactic Acid 1.58 mmol/L (0.60-1.99) 05/13/17 17:42 Uric Acid 7.7 mg/dL (4.4-7.6) H 05/15/17 06:30 Calcium 8.6 mg/dL (8.6-10.3) 05/17/17 05:02 Phosphorus 5.4 mg/dL (2.5-5.0) H 05/15/17 06:30 Magnesium 2.2 mg/dL (1.9-2.7) 05/15/17 06:30 Total Bilirubin 0.4 mg/dL (0.3-1.0) 05/17/17 05:02 AST 20 U/L (13-39) 05/17/17 05:02 ALT 3 U/L (7-52) L 05/17/17 05:02 Alkaline Phosphatase 54 U/L (34-104) 05/17/17 05:02 Creatine Kinase 35 U/L (30-223) 05/16/17 23:06 Troponin I 0.02 ng/mL (0.01-0.05) 05/16/17 23:06 B-Natriuretic Peptide 1560.0 pg/mL (5.0-100.0) H 05/17/17 05:02 Total Protein 7.0 gm/dL (6.0-8.3) 05/17/17 05:02 Albumin 2.9 gm/dL (4.2-5.5) L 05/17/17 05:02 Globulin 4.1 gm/dL 05/17/17 05:02 Albumin/Globulin Ratio 0.7 (1.0-1.8) L 05/17/17 05:02 TSH 2.74 uIU/ml (0.34-5.60) 05/15/17 06:30 Urine Source CATH 05/13/17 19:50 Urine Color YELLOW 05/13/17 19:50 Urine Clarity CLOUDY (CLEAR) 05/13/17 19:50 Urine pH 6.0 05/13/17 19:50 Ur Specific [place] 1.015 (1.005-1.030) 05/13/17 19:50 Urine Protein 100 mg/dL (NEGATIVE) H 05/13/17 19:50 Urine Glucose (UA) NEGATIVE mg/dL (NEGATIVE) 05/13/17 19:50 Urine Ketones NEGATIVE mg/dL (NEGATIVE) 05/13/17 19:50 Urine Blood LARGE (NEGATIVE) H 05/13/17 19:50 Urine Nitrate NEGATIVE (NEGATIVE) 05/13/17 19:50 Urine Bilirubin NEGATIVE (NEGATIVE) 05/13/17 19:50 Urine Urobilinogen 0.2 E.U./dL (0.2 - 1.0) 05/13/17 19:50 Ur Leukocyte Esterase LARGE (NEGATIVE) H 05/13/17 19:50 Urine RBC 50-100 /hpf (0-5) H 05/13/17 19:50 Urine WBC >100 /hpf (0-5) H 05/13/17 19:50 Ur Epithelial Cells NONE SEEN /lpf (FEW) 05/13/17 19:50 Urine Bacteria NONE SEEN /hpf (NONE SEEN) 05/13/17 19:50 Ur Random Sodium 30 mmol/L 05/14/17 18:00 Urine Creatinine 36.4 mg/dl (Not Estab.) 05/14/17 18:00 Urine Microalbumin 363.5 ug/mL (Not Estab.) 05/14/17 18:00 Microalb/Creat Ratio 998.6 mg/g creat (0.0-30.0) H 05/14/17 18:00 Random Vancomycin 14.7 ug/mL (5.0-40.0) 05/17/17 08:26 Blood Type B POSITIVE 05/13/17 20:36 Antibody Screen NEGATIVE 05/13/17 20:36 - Physical Exam Vitals and I&O: Vital Signs Temp 98.6 F 05/17/17 19:00 Pulse 102 05/17/17 19:37 Resp 20 05/17/17 19:37 BP 154/87 05/17/17 19:00 Pulse Ox 100 05/17/17 19:37 Intake & Output 05/17/17 05/17/17 05/18/17 06:59 18:59 06:59 Intake Total 189.738 4310 Output Total 600 300 Balance 127.667 890 Weight (lbs) 62.596 kg 62.596 kg Intake: Intake, IV Amount 127.667 50 Diltiazem 125 mg In 27.667 Dextrose 5% 100 ml @ 10 MG/HR 10 mls/hr IV TITR YESSICA Rx#:[id number] Piperacillin Sodium/ 100 50 Tazobact 3.375 gm In Sodium Chloride 0.9% 50 ml @ 100 mls/hr IV Q8HR YESSICA Rx#:[id number] Oral 0 Tube Feeding 600 540 Other 600 Output: Urine 600 300 Other: # Bowel Movements 1 1 Stool Characteristics Liquid Soft Brown Liquid Brown Active Medications: Current Medications Acetaminophen (Tylenol) 650 mg PO Q4HR PRN PRN Reason: Pain Or Fever above 101 Stop: 07/14/17 15:15 Last Admin: 05/17/17 11:11 Dose: 650 mg Albuterol Sulfate (Albuterol 2.5mg/3ml Neb Ud) 2.5 mg HHN Q6HRT [facility] Stop: 07/14/17 00:59 Last Admin: 05/17/17 19:37 Dose: 2.5 mg Atorvastatin Calcium (Lipitor) 10 mg GT HS YESSICA PRN Reason: Protocol Stop: 07/14/17 20:59 Last Admin: 05/17/17 21:19 Dose: 10 mg Carbidopa/Levodopa (Sinemet 25mg-100 Mg) 1 tab PO TID [facility] Stop: 07/14/17 08:59 Last Admin: 05/17/17 21:20 Dose: 1 tab Heparin Sodium (Porcine) (Heparin) 5,000 units SUBQ Q8H [facility] Stop: 07/14/17 14:59 Last Admin: 05/17/17 22:40 Dose: 5,000 units Azithromycin 250 mg/ Sodium (Chloride) 250 mls @ 250 mls/hr IV Q24HR [facility] Stop: 05/20/17 08:59 Last Admin: 05/17/17 09:00 Dose: 250 mls/hr Piperacillin Sod/Tazobactam (Sod 3.375 gm/ Sodium Chloride) 50 mls @ 100 mls/ hr IV Q8HR [facility] Stop: 07/14/17 15:14 Last Admin: 05/17/17 21:17 Dose: 100 mls/hr Diltiazem HCl 125 mg/ Dextrose 125 mls @ 10 mls/hr IV TITR YESSICA; 10 MG/HR PRN Reason: Protocol Stop: 07/16/17 02:26 Last Titration: 05/17/17 06:00 Dose: 5 mg/hr, 5 mls/hr Insulin Aspart (Novolog Insulin Sliding Scale) 0 units SUBQ Q6HR [facility]ESSICA PRN Reason: Protocol Stop: 07/14/17 00:00 Last Admin: 05/17/17 17:25 Dose: 3 units Insulin Detemir (Levemir Insulin) 14 units SUBQ DAILY [facility] PRN Reason: Protocol Stop: 07/15/17 08:59 Last Admin: 05/17/17 09:41 Dose: 14 units Ipratropium [place] (Atrovent Neb 0.5mg/2.5ml) 0.5 mg HHN Q6HRT [facility] Stop: 07/16/17 00:59 Last Admin: 05/17/17 19:37 Dose: 0.5 mg Isosorbide Dinitrate (Isordil) 10 mg GT TID [facility] Stop: 07/14/17 08:59 Last Admin: 05/17/17 14:30 Dose: 10 mg Lactobacillus Rhamnosus (Culturelle) 1 each PO DAILY [facility] Stop: 07/17/17 08:59 Lactulose (Cephulac) 20 gm PO TID [facility] Stop: 07/14/17 08:59 Last Admin: 05/17/17 21:18 Dose: 20 gm Levetiracetam (Keppra) 250 mg NG BID [facility] Stop: 07/14/17 08:59 Last Admin: 05/17/17 17:23 Dose: 250 mg Metoprolol Tartrate (Lopressor) 50 mg PO BID [facility] Stop: 07/16/17 16:59 Last Admin: 05/17/17 17:24 Dose: 50 mg Miscellaneous (Vte Chemical Prophylaxis Screen/ Admission) 1 [facility] PRN PRN PRN Reason: PROTOCOL Stop: 07/14/17 09:25 Miscellaneous (Clinical Monitoring) 1 ea DAILY PRN PRN Reason: RENAL Stop: 07/15/17 12:32 Miscellaneous (Vancomycin Iv Per Pharmacy) 1 ea PRN [facility] Stop: 07/15/17 22:59 Miscellaneous (Probiotic Screen) 1 [facility] PRN PRN PRN Reason: PROTOCOL Stop: 07/16/17 09:33 Morphine Sulfate (Morphine) 2 mg IVP Q3H PRN PRN Reason: PAIN Stop: 07/13/17 19:46 Last Admin: 05/17/17 22:39 Dose: 2 mg Mupirocin (Bactroban Oint) 1 appl TP BID [facility] Stop: 07/14/17 16:59 Last Admin: 05/17/17 17:24 Dose: 1 appl Pantoprazole Sodium (Protonix) 40 mg GT DAILY [facility] Stop: 07/14/17 08:59 Last Admin: 05/17/17 09:39 Dose: 40 mg Rifaximin (Xifaxan) 550 mg GT BID [facility] Stop: 07/14/17 08:59 Last Admin: 05/17/17 17:24 Dose: 550 mg General: no acute distress, cachectic HEENT: atraumatic, normocephalic, PERRLA, EOMI Neck: supple, no thyromegaly, no rigid, no tracheostomy Cardiovascular: S1S2, regular, systolic murmur Lungs: clear to auscultation bilaterally, clear to percussion Abdomen: soft, bowel sounds, no tender, no distended, no hepatomegaly, no splenomegaly Extremities: no cyanosis, no clubbing, no edema Neurological: awake, alert, oriented Skin: intact Infectious Disease Assmt/Plan - Problem List Patient Problems: All Active Problems COUGH AND CONGESTION (Acute) - Assessment Assessment: 1. Pneuimonia.? Aspiration. 2. NICK. 3. CVA. 4. CHF. 5. CKD4. NICK mild rise in creatinine. 6. Afib with rapid ventricular response. Plan: Continue zithro and zosyn ( Abx changed today), Dc vanco IV. Nutritional Asmnt/Malnutr-PDOC - Dietary Evaluation Malnutrition Findings (Please click <Entered> for more info): Nutritional Asmnt/Malnutrition Start: 05/15/17 13: 56 Text: Status: Complete Freq: Document 05/15/17 13:56 GSUN (Rec: 05/15/17 14:18 GSUN [email or web address]) Nutritional Asmnt/Malnutrition Patient General Information Nutritional Screening High Risk Screening Diagnosis PNA, NICK, icnreasing renal failure, CVA, CHF, DM Pertinent Medical Hx/Surgical Hx CVA, dementia, afib, CAD, HTN, dyslipidemia, epilepsy, GERD, aspiration PNA, DM, CKD, dehydration, C. diff, anemia D Subjective Information 86 year old male from SNF. Pt greeted RD. Pt is overall thin , moderate to severe wasting to chest, clavicles, extremities. Observed Glytrol running at 60ml/hr x20hrs during visit. Unable to obtain CBW due to bedscale not calibrated. Discussed with YVETTE Farooq regarding tube feeding recommendations. Current Diet Order/ Nutrition Support Glytrol at 60ml/hr x 20hrs, providing 1200kcal 54g protein Pertinent Medications Lipitor, Novolog, Levemir, Cephulac, Morphine, Protonix, Nacl 0.9% Pertinent Labs 05/13: potassium 5.3H, BUN 80H, creatinine 2.4H, glucose 103 05/15: potassium WNL, BUN 70H, creatinine 2.4H, glucose 239H, A1c 6.1H, phosphorus 5.4H Nutritional Hx/Data Height 1.68 m Height (Calculated Centimeters) 167.6 Current Weight (lbs) 65.771 kg Weight (Calculated Kilograms) 65.8 Weight (Calculated Grams) 95057.9 [place] Body Weight 142 Weight Status Approriate GI Symptoms Difficult in: Swallowing Cultural/Ethnic/Religion Belief [facility]: Glucerna 1.2 at 85ml/hr x 20hrs, providing 2040kcal, promote weight gain. Skin Integrity/Comment: Gee 12. Skin intact. Estimated Nutritional Goals Calories/Kcals/Kg CBW 145lb/65.9kg Kcals Calculated 1976-7kcal (30-35kcal/kg) Protein Calculated 46-92g (0.7-1.4g/kg, renal vs moderate to severe wasting) Fluid: ml Per MD (renal) Nutritional Problem 2. 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 Problem Problem Inadequate intake from enteral nutrition infusion related to Etiology estimated nutritional needs aeb Signs/Symptoms: providing to meet 61% lower end kcal needs Intervention/Recommendation Comments 1. Recommend Novasource Renal at 50ml/hr x 20hrs, providing 2000kcal and 91g protein. Current order Glytrol at 60ml/ hr x 20hrs is only providing 1200kcal, pt recieves 2040kcal at [facility]. Expected Outcomes/Goals Expected Outcomes/Goals 1. Pt to meet at least 100% of estimated nutritional needs on tube feeding with tolerance .
[2017-05-18] MEDS: Ipratropium Neb 0.5 mg/2.5 mL UD HHN SCH ×6 (00:56→23:02)
[2017-05-18] MEDS: Albuterol Nebulizer 2.5mg/3mL HHN SCH ×3 (00:56→12:04)
[2017-05-18 04:59] LABS: % BASOPHILS 0.7 % (0.0-2.0); % EOSINOPHILS 2.3 % (0.0-5.0); % LYMPHOCYTES 14.7 % (20.0-50.0); % MONOCYTES 8.8 % (2.0-10.0); % NEUTROPHILS 73.5 % (40.0-80.0); MEAN CELL VOLUME 84.6 fl (80-99); MEAN CORPUSCULAR HEMOGLOBIN 28.2 pg (27.0-31.0); MEAN CORPUSCULAR HGB CONC 33.3 pg (28.0-36.0); MEAN PLATELET VOLUME 8.8 fl; NEUTROPHILE ABSOLUTE 6.5 Th/cmm (1.8-8.0); PLATELET COUNT 255 Th/cmm (150-400); RED BLOOD COUNT 2.71 Mil/cmm (3.80-5.80); RED CELL DISTRIBUTION WIDTH 15.4 % (11.5-20.0)
[2017-05-18 05:13] LABS: ALB/GLOB RATIO 0.7 (1.0-1.8); ALKALINE PHOSPHATASE 115 U/L (34-104); ANION GAP 10.4 (7.0-16.0); BILIRUBIN,TOTAL 0.3 mg/dL (0.3-1.0); BUN/CREATININE RATIO 28.9; CALCIUM SERUM 8.4 mg/dL (8.6-10.3); CARBON DIOXIDE 25.6 mEq/L (21.0-31.0); CHLORIDE 104 mEq/L (98-107); CREATININE - SERUM 2.8 mg/dL (0.7-1.3); GLUCOSE 259 mg/dL (70-105); SGOT 53 U/L (13-39); SGPT/ALT 12 U/L (7-52); SODIUM SERUM 136 mEq/L (136-145)
[2017-05-18 05:17] LABS: BUN - UREA NITROGEN 81 mg/dL (7-25)
[2017-05-18] MEDS: INSULIN ASPART SLIDING SCALE 100 UNITS/ML UNIT SUBQ SCH ×3 (05:48→18:06)
[2017-05-18 07:43] LABS: % BASOPHILS 0.8 % (0.0-2.0); % LYMPHOCYTES 13.2 % (20.0-50.0); % MONOCYTES 8.3 % (2.0-10.0); % NEUTROPHILS 75.7 % (40.0-80.0); HEMATOCRIT 24.9 % (39.0-49.0); HEMOGLOBIN 8.3 gm/dL (12.6-17.4); MEAN CELL VOLUME 84.6 fl (80-99); MEAN CORPUSCULAR HEMOGLOBIN 28.3 pg (27.0-31.0); MEAN CORPUSCULAR HGB CONC 33.4 pg (28.0-36.0); MEAN PLATELET VOLUME 8.2 fl; NEUTROPHILE ABSOLUTE 8.3 Th/cmm (1.8-8.0); PLATELET COUNT 263 Th/cmm (150-400); RED BLOOD COUNT 2.94 Mil/cmm (3.80-5.80); RED CELL DISTRIBUTION WIDTH 15.2 % (11.5-20.0)
[2017-05-18] MEDS: Azithromycin 250 MG in Sodium Chloride 0.9% 250 ML IV SCH (09:00)
[2017-05-18] MEDS: Lactulose 10 Gm/15 mL 30mL UDC PO SCH ×3 (09:27→21:01)
[2017-05-18] MEDS: Pantoprazole 40 mg/Packet GT SCH (09:27)
[2017-05-18] MEDS: Lactobacillus Rhamnosus 10 Billion CFU Capsule PO SCH (09:27)
[2017-05-18] MEDS: Levetiracetam 500 mg/5mL 5mL UDC NG SCH ×2 (09:28→16:55)
[2017-05-18] MEDS: Insulin Detemir 100 units/mL 10mL Vial SUBQ SCH (09:30)
[2017-05-18 09:31] LABS: WHITE BLOOD COUNT 10.9 Th/cmm (4.8-10.8)
[2017-05-18 09:32] LABS: WHITE BLOOD COUNT 8.9 Th/cmm (4.8-10.8)
[2017-05-18 09:39] LABS: HEMOGLOBIN 7.7 gm/dL (12.6-17.4)
[2017-05-18] MEDS ORDERED: Vancomycin HCl 500 MG in Sodium Chloride 0.9% 100 ML IV SCH (12:00)
[2017-05-18] MEDS ORDERED: Piperacillin/Tazobact 2.25 gm in 0.9% NS 50 ML IV SCH (13:35)
--- NOTE | 2017-05-18 14:27 | General Progress Note ---
Subjective - Review of Systems Service Date: 05/18/17 Subjective: Patient seen and examined in ICU transfered to ICU last night to afib RVR with breathing issue. seems better today overnight was on Cardizem drip off now HR stable family was at the bedside Objective - Results Result Diagrams: 05/18/17 07:33 05/18/17 04:40 Recent Labs: Laboratory Last Values WBC 10.9 Th/cmm (4.8-10.8) H D 05/18/17 07:33 RBC 2.94 Mil/cmm (3.80-5.80) L 05/18/17 07:33 Hgb 8.3 gm/dL (12.6-17.4) L 05/18/17 07:33 Hct 24.9 % (39.0-49.0) L 05/18/17 07:33 MCV 84.6 fl (80-99) 05/18/17 07:33 MCH 28.3 pg (27.0-31.0) 05/18/17 07:33 MCHC Differential 33.4 pg (28.0-36.0) 05/18/17 07:33 RDW 15.2 % (11.5-20.0) 05/18/17 07:33 Plt Count 263 Th/cmm (150-400) 05/18/17 07:33 MPV 8.2 fl 05/18/17 07:33 Neutrophils % 75.7 % (40.0-80.0) 05/18/17 07:33 Band Neutrophils % 1 % (0-10) 05/17/17 05:02 Lymphocytes % 13.2 % (20.0-50.0) L 05/18/17 07:33 Monocytes % 8.3 % (2.0-10.0) 05/18/17 07:33 Eosinophils % 2.0 % (0.0-5.0) 05/18/17 07:33 Basophils % 0.8 % (0.0-2.0) 05/18/17 07:33 Neutrophils (Manual) 84 % (40-80) H 05/17/17 05:02 Lymphocytes 10 % (20-50) L 05/17/17 05:02 Monocytes 5 % (2-10) 05/17/17 05:02 Platelet Estimate ADEQUATE (NORMAL) 05/17/17 05:02 Eos Smear Source URINE 05/14/17 18:00 Eos Smear Total Cells FEW EOSINOPHILS SEEN (NONE SEEN) 05/14/17 18:00 PT 11.9 SECONDS (9.5-11.5) H 05/13/17 17:42 INR 1.13 (0.5-1.4) 05/13/17 17:42 PTT (Actin FS) 30.5 SECONDS (26.0-38.0) 05/15/17 12:30 Sodium 136 mEq/L (136-145) 05/18/17 04:40 Potassium 4.0 mEq/L (3.5-5.1) 05/18/17 04:40 Chloride 104 mEq/L (98-107) 05/18/17 04:40 Carbon Dioxide 25.6 mEq/L (21.0-31.0) 05/18/17 04:40 Anion Gap 10.4 (7.0-16.0) 05/18/17 04:40 BUN 81 mg/dL (7-25) H* 05/18/17 04:40 Creatinine 2.8 mg/dL (0.7-1.3) H 05/18/17 04:40 Est GFR ( Amer) TNP 05/18/17 04:40 Est GFR (Non-Af Amer) TNP 05/18/17 04:40 BUN/Creatinine Ratio 28.9 05/18/17 04:40 Glucose 259 mg/dL (70-105) H 05/18/17 04:40 POC Glucose 181 MG/DL (70 - 105) H 05/18/17 09:30 Hemoglobin A1c % 6.1 % (4.0-6.0) H 05/15/17 06:30 Plasma/Ser Osmolality 301 mOsmol/kg (280-301) 05/14/17 18:20 Whole Bld Lactic Acid 1.58 mmol/L (0.60-1.99) 05/13/17 17:42 Uric Acid 7.7 mg/dL (4.4-7.6) H 05/15/17 06:30 Calcium 8.4 mg/dL (8.6-10.3) L 05/18/17 04:40 Phosphorus 5.4 mg/dL (2.5-5.0) H 05/15/17 06:30 Magnesium 2.2 mg/dL (1.9-2.7) 05/15/17 06:30 Total Bilirubin 0.3 mg/dL (0.3-1.0) 05/18/17 04:40 AST 53 U/L (13-39) H 05/18/17 04:40 ALT 12 U/L (7-52) 05/18/17 04:40 Alkaline Phosphatase 115 U/L (34-104) H 05/18/17 04:40 Creatine Kinase 35 U/L (30-223) 05/16/17 23:06 Troponin I 0.02 ng/mL (0.01-0.05) 05/16/17 23:06 B-Natriuretic Peptide 1560.0 pg/mL (5.0-100.0) H 05/17/17 05:02 Total Protein 6.3 gm/dL (6.0-8.3) 05/18/17 04:40 Albumin 2.6 gm/dL (4.2-5.5) L 05/18/17 04:40 Globulin 3.7 gm/dL 05/18/17 04:40 Albumin/Globulin Ratio 0.7 (1.0-1.8) L 05/18/17 04:40 TSH 2.74 uIU/ml (0.34-5.60) 05/15/17 06:30 Urine Source CATH 05/13/17 19:50 Urine Color YELLOW 05/13/17 19:50 Urine Clarity CLOUDY (CLEAR) 05/13/17 19:50 Urine pH 6.0 05/13/17 19:50 Ur Specific [place] 1.015 (1.005-1.030) 05/13/17 19:50 Urine Protein 100 mg/dL (NEGATIVE) H 05/13/17 19:50 Urine Glucose (UA) NEGATIVE mg/dL (NEGATIVE) 05/13/17 19:50 Urine Ketones NEGATIVE mg/dL (NEGATIVE) 05/13/17 19:50 Urine Blood LARGE (NEGATIVE) H 05/13/17 19:50 Urine Nitrate NEGATIVE (NEGATIVE) 05/13/17 19:50 Urine Bilirubin NEGATIVE (NEGATIVE) 05/13/17 19:50 Urine Urobilinogen 0.2 E.U./dL (0.2 - 1.0) 05/13/17 19:50 Ur Leukocyte Esterase LARGE (NEGATIVE) H 05/13/17 19:50 Urine RBC 50-100 /hpf (0-5) H 05/13/17 19:50 Urine WBC >100 /hpf (0-5) H 05/13/17 19:50 Ur Epithelial Cells NONE SEEN /lpf (FEW) 05/13/17 19:50 Urine Bacteria NONE SEEN /hpf (NONE SEEN) 05/13/17 19:50 Ur Random Sodium 30 mmol/L 05/14/17 18:00 Urine Creatinine 36.4 mg/dl (Not Estab.) 05/14/17 18:00 Urine Microalbumin 363.5 ug/mL (Not Estab.) 05/14/17 18:00 Microalb/Creat Ratio 998.6 mg/g creat (0.0-30.0) H 05/14/17 18:00 Random Vancomycin 14.5 ug/mL (5.0-40.0) 05/18/17 04:40 Blood Type B POSITIVE 05/13/17 20:36 Antibody Screen NEGATIVE 05/13/17 20:36 - Physical Exam Vitals and I&O: Vital Signs Temp 98.9 F 05/18/17 13:00 Pulse 113 05/18/17 14:09 Resp 21 05/18/17 13:00 BP 149/81 05/18/17 14:09 Pulse Ox 100 05/18/17 13:00 Intake & Output 05/17/17 05/18/17 05/18/17 18:59 06:59 18:59 Intake Total 1440 920 660 Output Total 300 327 Balance 1140 593 660 Weight (lbs) 62.596 kg 83.506 kg 83.506 kg Intake: Intake, IV Amount 300 100 400 Azithromycin 250 mg In 250 250 Sodium Chloride 0.9% 250 ml @ 250 mls/hr IV Q24HR YESSICA Rx#:[id number] Piperacillin Sodium/ 50 100 50 Tazobact 3.375 gm In Sodium Chloride 0.9% 50 ml @ 100 mls/hr IV Q8HR YESSICA Rx#:[id number] Vancomycin HCl 500 mg In 100 Sodium Chloride 0.9% 100 ml @ 100 mls/hr IV 1200 YESSICA Rx#:[id number] Oral 0 Tube Feeding 540 720 60 Other 600 100 200 Output: Urine 300 325 Stool 2 Other: # Bowel Movements 1 Stool Characteristics Soft Soft Liquid Liquid Liquid Brown Brown Brown Active Medications: Current Medications Acetaminophen (Tylenol) 650 mg PO Q4HR PRN PRN Reason: Pain Or Fever above 101 Stop: 07/14/17 15:15 Last Admin: 05/17/17 11:11 Dose: 650 mg Albuterol Sulfate (Albuterol 2.5mg/3ml Neb Ud) 2.5 mg HHN Q6HRT YESSICA Stop: 07/14/17 00:59 Last Admin: 05/18/17 12:04 Dose: 2.5 mg Atorvastatin Calcium (Lipitor) 10 mg GT HS YESSICA PRN Reason: Protocol Stop: 07/14/17 20:59 Last Admin: 05/17/17 21:19 Dose: 10 mg Carbidopa/Levodopa (Sinemet 25mg-100 Mg) 1 tab PO TID [facility] Stop: 07/14/17 08:59 Last Admin: 05/18/17 14:15 Dose: 1 tab Heparin Sodium (Porcine) (Heparin) 5,000 units SUBQ Q8H YESSICA Stop: 07/14/17 14:59 Last Admin: 05/18/17 07:00 Dose: Not Given Azithromycin 250 mg/ Sodium (Chloride) 250 mls @ 250 mls/hr IV Q24HR YESSICA Stop: 05/20/17 08:59 Last Infusion: 05/18/17 10:00 Dose: Infused Diltiazem HCl 125 mg/ Dextrose 125 mls @ 10 mls/hr IV TITR YESSICA; 10 MG/HR PRN Reason: Protocol Stop: 07/16/17 02:26 Last Titration: 05/17/17 06:00 Dose: 5 mg/hr, 5 mls/hr Vancomycin HCl 500 mg/ Sodium (Chloride) 100 mls @ 100 mls/hr IV 1200 [facility] Stop: 05/18/17 16:00 Last Infusion: 05/18/17 13:00 Dose: Infused Piperacillin Sod/Tazobactam (Sod 2.25 gm/ Sodium Chloride) 50 mls @ 100 mls/hr IV Q8HR [facility] Stop: 07/17/17 20:59 Insulin Aspart (Novolog Insulin Sliding Scale) 0 units SUBQ Q6HR YESSICA PRN Reason: Protocol Stop: 07/14/17 00:00 Last Admin: 05/18/17 12:25 Dose: Not Given Insulin Detemir (Levemir Insulin) 20 units SUBQ DAILY YESSICA PRN Reason: Protocol Stop: 07/18/17 08:59 Ipratropium [place] (Atrovent Neb 0.5mg/2.5ml) 0.5 mg HHN Q6HRT [facility] Stop: 07/16/17 00:59 Last Admin: 05/18/17 12:04 Dose: 0.5 mg Isosorbide Dinitrate (Isordil) 10 mg GT TID [facility] Stop: 07/14/17 08:59 Last Admin: 05/18/17 14:09 Dose: 10 mg Lactobacillus Rhamnosus (Culturelle) 1 each PO DAILY YESSICA Stop: 07/17/17 08:59 Last Admin: 05/18/17 09:27 Dose: 1 each Lactulose (Cephulac) 20 gm PO TID [facility] Stop: 07/14/17 08:59 Last Admin: 05/18/17 09:27 Dose: 20 gm Levetiracetam (Keppra) 250 mg NG BID [facility] Stop: 07/14/17 08:59 Last Admin: 05/18/17 09:28 Dose: 250 mg Metoprolol Tartrate (Lopressor) 50 mg PO BID [facility] Stop: 07/16/17 16:59 Last Admin: 05/18/17 09:27 Dose: 50 mg Miscellaneous (Vte Chemical Prophylaxis Screen/ Admission) 1 ea MC PRN PRN PRN Reason: PROTOCOL Stop: 07/14/17 09:25 Miscellaneous (Clinical Monitoring) 1 ea MC DAILY PRN PRN Reason: RENAL Stop: 07/15/17 12:32 Miscellaneous (Vancomycin Iv Per Pharmacy) 1 ea MC PRN [facility] Stop: 07/15/17 22:59 Miscellaneous (Probiotic Screen) 1 ea PRN PRN PRN Reason: PROTOCOL Stop: 07/16/17 09:33 Morphine Sulfate (Morphine) 2 mg IVP Q3H PRN PRN Reason: PAIN Stop: 07/13/17 19:46 Last Admin: 05/17/17 22:39 Dose: 2 mg Mupirocin (Bactroban Oint) 1 appl TP BID [facility] Stop: 07/14/17 16:59 Last Admin: 05/18/17 09:27 Dose: 1 appl Pantoprazole Sodium (Protonix) 40 mg GT DAILY [facility] Stop: 07/14/17 08:59 Last Admin: 05/18/17 09:27 Dose: 40 mg Rifaximin (Xifaxan) 550 mg GT BID YESSICA Stop: 07/14/17 08:59 Last Admin: 05/18/17 09:27 Dose: 550 mg General: No acute distress HEENT: Atraumatic, Mucous membr. 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 HTN renal disease Seizure disorder - Plan Plan: Still noted to persistent chest congestion CT chest w/o contrast ordered Pulmonary consulted Lasix given one time dose Zosyn and VANCO per ID rec Sputum culture Lasix one dose given this afternoon per Nephrology ECHO ordered Renal US reviewed no significant findings noted Basal bolus insulin and accucheck Heparin for Afib Metoprolol increased to 50 BID Cardizem drip pn Tube feeding Asp precaution Seizure meds Metoprolol Monitor vitals HHN and oxygen Supportive care ID Nephrology and Cardiology on board Follow up labs and chest xray in am Plan of care discussed with nursing staff Family (grandson) was updated on pt's condition and plan of care Nutritional Asmnt/Malnutr-PDOC - Dietary Evaluation Malnutrition Findings (Please click <Entered> for more info): Nutritional Asmnt/Malnutrition Start: 05/15/17 13: 56 Text: Status: Complete Freq: Document 05/15/17 13:56 GSUN (Rec: 05/15/17 14:18 GSUN [id number]) Nutritional Asmnt/Malnutrition Patient General Information Nutritional Screening High Risk Screening Diagnosis PNA, NICK, icnreasing renal failure, CVA, CHF, DM Pertinent Medical Hx/Surgical Hx CVA, dementia, afib, CAD, HTN, dyslipidemia, epilepsy, GERD, aspiration PNA, DM, CKD, dehydration, C. diff, anemia D Subjective Information 86 year old male from SNF. Pt greeted RD. Pt is overall thin , moderate to severe wasting to chest, clavicles, extremities. Observed Glytrol running at 60ml/hr x20hrs during visit. Unable to obtain CBW due to bedscale not calibrated. Discussed with YVETTE Farooq regarding tube feeding recommendations. Current Diet Order/ Nutrition Support Glytrol at 60ml/hr x 20hrs, providing 1200kcal 54g protein Pertinent Medications Lipitor, Novolog, Levemir, Cephulac, Morphine, Protonix, Nacl 0.9% Pertinent Labs 05/13: potassium 5.3H, BUN 80H, creatinine 2.4H, glucose 103 05/15: potassium WNL, BUN 70H, creatinine 2.4H, glucose 239H, A1c 6.1H, phosphorus 5.4H Nutritional Hx/Data Height 1.68 m Height (Calculated Centimeters) 167.6 Current Weight (lbs) 65.771 kg Weight (Calculated Kilograms) 65.8 Weight (Calculated Grams) 60565.9 [place] Body Weight 142 Weight Status Approriate GI Symptoms Difficult in: Swallowing Cultural/Ethnic/[employer] Belief [facility]: Glucerna 1.2 at 85ml/hr x 20hrs, providing 2040kcal, promote weight gain. Skin Integrity/Comment: Gee 12. Skin intact. Estimated Nutritional Goals Calories/Kcals/Kg CBW 145lb/65.9kg Kcals Calculated 1976-2307kcal (30-35kcal/kg) Protein Calculated 46-92g (0.7-1.4g/kg, renal vs moderate to severe wasting) Fluid: ml Per MD (renal) Nutritional Problem 2. 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 Problem Problem Inadequate intake from enteral nutrition infusion related to Etiology estimated nutritional needs aeb Signs/Symptoms: providing to meet 61% lower end kcal needs Intervention/Recommendation Comments 1. Recommend Novasource Renal at 50ml/hr x 20hrs, providing 2000kcal and 91g protein. Current order Glytrol at 60ml/ hr x 20hrs is only providing 1200kcal, pt recieves 2040kcal at [facility]. Expected Outcomes/Goals Expected Outcomes/Goals 1. Pt to meet at least 100% of estimated nutritional needs on tube feeding with tolerance .
--- NOTE | 2017-05-18 15:02 | General Progress Note ---
Subjective - Review of Systems Service Date: 05/18/17 Subjective: Alert, more tachypneic, nonverbal Objective - Results Result Diagrams: 05/18/17 07:33 05/18/17 04:40 Recent Labs: Laboratory Last Values WBC 10.9 Th/cmm (4.8-10.8) H D 05/18/17 07:33 RBC 2.94 Mil/cmm (3.80-5.80) L 05/18/17 07:33 Hgb 8.3 gm/dL (12.6-17.4) L 05/18/17 07:33 Hct 24.9 % (39.0-49.0) L 05/18/17 07:33 MCV 84.6 fl (80-99) 05/18/17 07:33 MCH 28.3 pg (27.0-31.0) 05/18/17 07:33 MCHC Differential 33.4 pg (28.0-36.0) 05/18/17 07:33 RDW 15.2 % (11.5-20.0) 05/18/17 07:33 Plt Count 263 Th/cmm (150-400) 05/18/17 07:33 MPV 8.2 fl 05/18/17 07:33 Neutrophils % 75.7 % (40.0-80.0) 05/18/17 07:33 Band Neutrophils % 1 % (0-10) 05/17/17 05:02 Lymphocytes % 13.2 % (20.0-50.0) L 05/18/17 07:33 Monocytes % 8.3 % (2.0-10.0) 05/18/17 07:33 Eosinophils % 2.0 % (0.0-5.0) 05/18/17 07:33 Basophils % 0.8 % (0.0-2.0) 05/18/17 07:33 Neutrophils (Manual) 84 % (40-80) H 05/17/17 05:02 Lymphocytes 10 % (20-50) L 05/17/17 05:02 Monocytes 5 % (2-10) 05/17/17 05:02 Platelet Estimate ADEQUATE (NORMAL) 05/17/17 05:02 Eos Smear Source URINE 05/14/17 18:00 Eos Smear Total Cells FEW EOSINOPHILS SEEN (NONE SEEN) 05/14/17 18:00 PT 11.9 SECONDS (9.5-11.5) H 05/13/17 17:42 INR 1.13 (0.5-1.4) 05/13/17 17:42 PTT (Actin FS) 30.5 SECONDS (26.0-38.0) 05/15/17 12:30 Sodium 136 mEq/L (136-145) 05/18/17 04:40 Potassium 4.0 mEq/L (3.5-5.1) 05/18/17 04:40 Chloride 104 mEq/L (98-107) 05/18/17 04:40 Carbon Dioxide 25.6 mEq/L (21.0-31.0) 05/18/17 04:40 Anion Gap 10.4 (7.0-16.0) 05/18/17 04:40 BUN 81 mg/dL (7-25) H* 05/18/17 04:40 Creatinine 2.8 mg/dL (0.7-1.3) H 05/18/17 04:40 Est GFR ( Amer) TNP 05/18/17 04:40 Est GFR (Non-Af Amer) TNP 05/18/17 04:40 BUN/Creatinine Ratio 28.9 05/18/17 04:40 Glucose 259 mg/dL (70-105) H 05/18/17 04:40 POC Glucose 181 MG/DL (70 - 105) H 05/18/17 09:30 Hemoglobin A1c % 6.1 % (4.0-6.0) H 05/15/17 06:30 Plasma/Ser Osmolality 301 mOsmol/kg (280-301) 05/14/17 18:20 Whole Bld Lactic Acid 1.58 mmol/L (0.60-1.99) 05/13/17 17:42 Uric Acid 7.7 mg/dL (4.4-7.6) H 05/15/17 06:30 Calcium 8.4 mg/dL (8.6-10.3) L 05/18/17 04:40 Phosphorus 5.4 mg/dL (2.5-5.0) H 05/15/17 06:30 Magnesium 2.2 mg/dL (1.9-2.7) 05/15/17 06:30 Total Bilirubin 0.3 mg/dL (0.3-1.0) 05/18/17 04:40 AST 53 U/L (13-39) H 05/18/17 04:40 ALT 12 U/L (7-52) 05/18/17 04:40 Alkaline Phosphatase 115 U/L (34-104) H 05/18/17 04:40 Creatine Kinase 35 U/L (30-223) 05/16/17 23:06 Troponin I 0.02 ng/mL (0.01-0.05) 05/16/17 23:06 B-Natriuretic Peptide 1560.0 pg/mL (5.0-100.0) H 05/17/17 05:02 Total Protein 6.3 gm/dL (6.0-8.3) 05/18/17 04:40 Albumin 2.6 gm/dL (4.2-5.5) L 05/18/17 04:40 Globulin 3.7 gm/dL 05/18/17 04:40 Albumin/Globulin Ratio 0.7 (1.0-1.8) L 05/18/17 04:40 TSH 2.74 uIU/ml (0.34-5.60) 05/15/17 06:30 Urine Source CATH 05/13/17 19:50 Urine Color YELLOW 05/13/17 19:50 Urine Clarity CLOUDY (CLEAR) 05/13/17 19:50 Urine pH 6.0 05/13/17 19:50 Ur Specific [place] 1.015 (1.005-1.030) 05/13/17 19:50 Urine Protein 100 mg/dL (NEGATIVE) H 05/13/17 19:50 Urine Glucose (UA) NEGATIVE mg/dL (NEGATIVE) 05/13/17 19:50 Urine Ketones NEGATIVE mg/dL (NEGATIVE) 05/13/17 19:50 Urine Blood LARGE (NEGATIVE) H 05/13/17 19:50 Urine Nitrate NEGATIVE (NEGATIVE) 05/13/17 19:50 Urine Bilirubin NEGATIVE (NEGATIVE) 05/13/17 19:50 Urine Urobilinogen 0.2 E.U./dL (0.2 - 1.0) 05/13/17 19:50 Ur Leukocyte Esterase LARGE (NEGATIVE) H 05/13/17 19:50 Urine RBC 50-100 /hpf (0-5) H 05/13/17 19:50 Urine WBC >100 /hpf (0-5) H 05/13/17 19:50 Ur Epithelial Cells NONE SEEN /lpf (FEW) 05/13/17 19:50 Urine Bacteria NONE SEEN /hpf (NONE SEEN) 05/13/17 19:50 Ur Random Sodium 30 mmol/L 05/14/17 18:00 Urine Creatinine 36.4 mg/dl (Not Estab.) 05/14/17 18:00 Urine Microalbumin 363.5 ug/mL (Not Estab.) 05/14/17 18:00 Microalb/Creat Ratio 998.6 mg/g creat (0.0-30.0) H 05/14/17 18:00 Random Vancomycin 14.5 ug/mL (5.0-40.0) 05/18/17 04:40 Blood Type B POSITIVE 05/13/17 20:36 Antibody Screen NEGATIVE 05/13/17 20:36 - Physical Exam Vitals and I&O: Vital Signs Temp 98.9 F 05/18/17 13:00 Pulse 113 05/18/17 14:09 Resp 21 05/18/17 13:00 BP 149/81 05/18/17 14:09 Pulse Ox 100 05/18/17 13:00 Intake & Output 05/17/17 05/18/17 05/18/17 18:59 06:59 18:59 Intake Total 1440 920 660 Output Total 300 327 Balance 1140 593 660 Weight (lbs) 62.596 kg 83.506 kg 83.506 kg Intake: Intake, IV Amount 300 100 400 Azithromycin 250 mg In 250 250 Sodium Chloride 0.9% 250 ml @ 250 mls/hr IV Q24HR YESSICA Rx#:[id number] Piperacillin Sodium/ 50 100 50 Tazobact 3.375 gm In Sodium Chloride 0.9% 50 ml @ 100 mls/hr IV Q8HR YESSICA Rx#:[id number] Vancomycin HCl 500 mg In 100 Sodium Chloride 0.9% 100 ml @ 100 mls/hr IV 1200 YESSICA Rx#:[id number] Oral 0 Tube Feeding 540 720 60 Other 600 100 200 Output: Urine 300 325 Stool 2 Other: # Bowel Movements 1 Stool Characteristics Soft Soft Liquid Liquid Liquid Brown Brown Brown Active Medications: Current Medications Acetaminophen (Tylenol) 650 mg PO Q4HR PRN PRN Reason: Pain Or Fever above 101 Stop: 07/14/17 15:15 Last Admin: 05/17/17 11:11 Dose: 650 mg Albuterol Sulfate (Albuterol 2.5mg/3ml Neb Ud) 2.5 mg HHN Q6HRT [facility] Stop: 07/14/17 00:59 Last Admin: 05/18/17 12:04 Dose: 2.5 mg Atorvastatin Calcium (Lipitor) 10 mg GT HS YESSICA PRN Reason: Protocol Stop: 07/14/17 20:59 Last Admin: 05/17/17 21:19 Dose: 10 mg Budesonide (Pulmicort) 0.5 mg HHN BIDRT [facility] Stop: 07/17/17 18:59 Carbidopa/Levodopa (Sinemet 25mg-100 Mg) 1 tab PO TID [facility] Stop: 07/14/17 08:59 Last Admin: 05/18/17 14:15 Dose: 1 tab Heparin Sodium (Porcine) (Heparin) 5,000 units SUBQ Q8H YESSICA Stop: 07/14/17 14:59 Last Admin: 05/18/17 07:00 Dose: Not Given Azithromycin 250 mg/ Sodium (Chloride) 250 mls @ 250 mls/hr IV Q24HR [facility] Stop: 05/20/17 08:59 Last Infusion: 05/18/17 10:00 Dose: Infused Diltiazem HCl 125 mg/ Dextrose 125 mls @ 10 mls/hr IV TITR YESSICA; 10 MG/HR PRN Reason: Protocol Stop: 07/16/17 02:26 Last Titration: 05/17/17 06:00 Dose: 5 mg/hr, 5 mls/hr Vancomycin HCl 500 mg/ Sodium (Chloride) 100 mls @ 100 mls/hr IV 1200 [facility] Stop: 05/18/17 16:00 Last Infusion: 05/18/17 13:00 Dose: Infused Piperacillin Sod/Tazobactam (Sod 2.25 gm/ Sodium Chloride) 50 mls @ 100 mls/hr IV Q8HR [facility] Stop: 07/17/17 20:59 Insulin Aspart (Novolog Insulin Sliding Scale) 0 units SUBQ Q6HR YESSICA PRN Reason: Protocol Stop: 07/14/17 00:00 Last Admin: 05/18/17 12:25 Dose: Not Given Insulin Detemir (Levemir Insulin) 20 units SUBQ DAILY [facility] PRN Reason: Protocol Stop: 07/18/17 08:59 Ipratropium [place] (Atrovent Neb 0.5mg/2.5ml) 0.5 mg HHN Q4HRT [facility] Stop: 07/17/17 14:59 Isosorbide Dinitrate (Isordil) 10 mg GT TID [facility] Stop: 07/14/17 08:59 Last Admin: 05/18/17 14:09 Dose: 10 mg Lactobacillus Rhamnosus (Culturelle) 1 each PO DAILY [facility] Stop: 07/17/17 08:59 Last Admin: 05/18/17 09:27 Dose: 1 each Lactulose (Cephulac) 20 gm PO TID [facility] Stop: 07/14/17 08:59 Last Admin: 05/18/17 09:27 Dose: 20 gm Levetiracetam (Keppra) 250 mg NG BID [facility] Stop: 07/14/17 08:59 Last Admin: 05/18/17 09:28 Dose: 250 mg Metoprolol Tartrate (Lopressor) 50 mg PO BID [facility] Stop: 07/16/17 16:59 Last Admin: 05/18/17 09:27 Dose: 50 mg Miscellaneous (Vte Chemical Prophylaxis Screen/ Admission) 1 ea [facility] PRN PRN PRN Reason: PROTOCOL Stop: 07/14/17 09:25 Miscellaneous (Clinical Monitoring) 1 ea MC DAILY PRN PRN Reason: RENAL Stop: 07/15/17 12:32 Miscellaneous (Vancomycin Iv Per Pharmacy) 1 ea MC PRN [facility] Stop: 07/15/17 22:59 Miscellaneous (Probiotic Screen) 1 ea PRN PRN PRN Reason: PROTOCOL Stop: 07/16/17 09:33 Morphine Sulfate (Morphine) 2 mg IVP Q3H PRN PRN Reason: PAIN Stop: 07/13/17 19:46 Last Admin: 05/17/17 22:39 Dose: 2 mg Mupirocin (Bactroban Oint) 1 appl TP BID [facility] Stop: 07/14/17 16:59 Last Admin: 05/18/17 09:27 Dose: 1 appl Pantoprazole Sodium (Protonix) 40 mg GT DAILY [facility] Stop: 07/14/17 08:59 Last Admin: 05/18/17 09:27 Dose: 40 mg Rifaximin (Xifaxan) 550 mg GT BID [facility] Stop: 07/14/17 08:59 Last Admin: 05/18/17 09:27 Dose: 550 mg General: Alert, Moderate distress, no No acute distress (rhonchi, exp. wheeze, tight exp) HEENT: Atraumatic, Mucous membr. moist/pink Neck: Supple, +2 carotid pulse wo bruit Cardiovascular: Regular rate, Normal S1, Normal S2, Other (afib ) Lungs: Other (few rhonchi, mild congestion) Abdomen: Bowel sounds, Soft Extremities: no Edema Neurological: Sensation intact Skin: no Rash Psych/Mental Status: Mood NL Assessment/Plan - Problem List Patient Problems: All Active Problems COUGH AND CONGESTION (Acute) - Assessment Assessment: NICK on CKD A LOC secondary to metabolic encephalopathy/medications Dehydration Essential hypertension with CKD COPD Chronic atrial fibrillation Status post CVA Aspiration pneumonia/dysphagia status post PEG Type 2 diabetes mellitus with CKD Acute Decompensated CHF - Plan Plan: Lab - Result Diagrams 05/15/17 06:30 05/15/17 06:30 Current Medications Acetaminophen (Tylenol) 650 mg PO Q4HR PRN PRN Reason: Pain Or Fever above 101 Stop: 07/14/17 15:15 Last Admin: 05/15/17 16:21 Dose: 650 mg Albuterol Sulfate (Albuterol 2.5mg/3ml Neb Ud) 2.5 mg HHN Q6HRT YESSICA Stop: 07/14/17 00:59 Last Admin: 05/15/17 16:05 Dose: 2.5 mg Atorvastatin Calcium (Lipitor) 10 mg GT HS YESSICA PRN Reason: Protocol Stop: 07/14/17 20:59 Carbidopa/Levodopa (Sinemet 25mg-100 Mg) 1 tab PO TID YESSICA Stop: 07/14/17 08:59 Last Admin: 05/15/17 14:02 Dose: 1 tab Heparin Sodium (Porcine) (Heparin) 5,000 units SUBQ Q8H YESSICA Stop: 07/14/17 14:59 Last Admin: 05/15/17 16:24 Dose: 5,000 units Sodium Chloride (Nacl 0.9%) 1,000 mls @ 60 mls/hr IV .[id number] YESSICA Stop: 07/13/17 06:40 Last Admin: 05/14/17 17:16 Dose: 60 mls/hr Azithromycin 250 mg/ Sodium (Chloride) 250 mls @ 250 mls/hr IV Q24HR [facility] Stop: 05/20/17 08:59 Piperacillin Sod/Tazobactam (Sod 3.375 gm/ Sodium Chloride) 50 mls @ 100 mls/ hr IV Q8HR [facility] Stop: 07/14/17 15:14 Last Admin: 05/15/17 15:57 Dose: 100 mls/hr Insulin Aspart (Novolog Insulin Sliding Scale) 0 units SUBQ Q6HR YESSICA PRN Reason: Protocol Stop: 07/14/17 00:00 Last Admin: 05/15/17 17:09 Dose: Not Given Insulin Detemir (Levemir Insulin) 14 units SUBQ DAILY [facility] PRN Reason: Protocol Stop: 07/15/17 08:59 Isosorbide Dinitrate (Isordil) 10 mg GT TID [facility] Stop: 07/14/17 08:59 Last Admin: 05/15/17 14:02 Dose: 10 mg Lactulose (Cephulac) 20 gm PO TID [facility] Stop: 07/14/17 08:59 Last Admin: 05/15/17 14:02 Dose: 20 gm Levetiracetam (Keppra) 250 mg NG BID [facility] Stop: 07/14/17 08:59 Last Admin: 05/15/17 16:23 Dose: 250 mg Metoprolol Tartrate (Lopressor) 37.5 mg GT BID [facility] Stop: 07/14/17 00:14 Last Admin: 05/15/17 16:22 Dose: 37.5 mg Miscellaneous (Vte Chemical Prophylaxis Screen/ Admission) 1 ea [facility] PRN PRN PRN Reason: PROTOCOL Stop: 07/14/17 09:25 Morphine Sulfate (Morphine) 2 mg IVP Q3H PRN PRN Reason: PAIN Stop: 07/13/17 19:46 Last Admin: 05/14/17 21:16 Dose: 2 mg Mupirocin (Bactroban Oint) 1 appl TP BID [facility] Stop: 07/14/17 16:59 Last Admin: 05/15/17 16:24 Dose: 1 appl Pantoprazole Sodium (Protonix) 40 mg GT DAILY [facility] Stop: 07/14/17 08:59 Last Admin: 05/15/17 08:36 Dose: 40 mg Rifaximin (Xifaxan) 550 mg GT BID [facility] Stop: 07/14/17 08:59 Last Admin: 05/15/17 16:23 Dose: 550 mg Kidney function worse with a BUN down to 83 and creatinine of 2.8 Sodium improved to 136 White count stable at 10.9, on Zosyn Chest x-ray suggestive of right effusion with possible CHF, and elevated BNP of 1560, will discontinue IV fluids and continue feedings Creatinine 2.3-2.4 is likely his new baseline Reviewed his meds Follow-up electrolytes start Maintenance Lasix w/ albumin infusion to improve intravascular volume Decrease nephro to 40 ml/hr Lab - Result Diagrams 05/17/17 05:02 05/17/17 05:02 Nutritional Asmnt/Malnutr-PDOC - Dietary Evaluation Malnutrition Findings (Please click <Entered> for more info): Nutritional Asmnt/Malnutrition Start: 05/15/17 13: 56 Text: Status: Complete Freq: Document 05/15/17 13:56 GSUN (Rec: 05/15/17 14:18 GSUN [id number]) Nutritional Asmnt/Malnutrition Patient General Information Nutritional Screening High Risk Screening Diagnosis PNA, NICK, icnreasing renal failure, CVA, CHF, DM Pertinent Medical Hx/Surgical Hx CVA, dementia, afib, CAD, HTN, dyslipidemia, epilepsy, GERD, aspiration PNA, DM, CKD, dehydration, C. diff, anemia D Subjective Information 86 year old male from SNF. Pt greeted RD. Pt is overall thin , moderate to severe wasting to chest, clavicles, extremities. Observed Glytrol running at 60ml/hr x20hrs during visit. Unable to obtain CBW due to bedscale not calibrated. Discussed with YVETTE Farooq regarding tube feeding recommendations. Current Diet Order/ Nutrition Support Glytrol at 60ml/hr x 20hrs, providing 1200kcal 54g protein Pertinent Medications Lipitor, Novolog, Levemir, Cephulac, Morphine, Protonix, Nacl 0.9% Pertinent Labs 05/13: potassium 5.3H, BUN 80H, creatinine 2.4H, glucose 103 05/15: potassium WNL, BUN 70H, creatinine 2.4H, glucose 239H, A1c 6.1H, phosphorus 5.4H Nutritional Hx/Data Height 1.68 m Height (Calculated Centimeters) 167.6 Current Weight (lbs) 65.771 kg Weight (Calculated Kilograms) 65.8 Weight (Calculated Grams) 65084.9 Martin Body Weight 142 Weight Status Approriate GI Symptoms Difficult in: Swallowing Cultural/Ethnic/Advent Belief [facility]: Glucerna 1.2 at 85ml/hr x 20hrs, providing 2040kcal, promote weight gain. Skin Integrity/Comment: Gee 12. Skin intact. Estimated Nutritional Goals Calories/Kcals/Kg CBW 145lb/65.9kg Kcals Calculated 1976-7kcal (30-35kcal/kg) Protein Calculated 46-92g (0.7-1.4g/kg, renal vs moderate to severe wasting) Fluid: ml Per MD (renal) Nutritional Problem 2. 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 Problem Problem Inadequate intake from enteral nutrition infusion related to Etiology estimated nutritional needs aeb Signs/Symptoms: providing to meet 61% lower end kcal needs Intervention/Recommendation Comments 1. Recommend Novasource Renal at 50ml/hr x 20hrs, providing 2000kcal and 91g protein. Current order Glytrol at 60ml/ hr x 20hrs is only providing 1200kcal, pt recieves 2040kcal at [facility]. Expected Outcomes/Goals Expected Outcomes/Goals 1. Pt to meet at least 100% of estimated nutritional needs on tube feeding with tolerance .
[2017-05-18] MEDS: Albumin 25% 12.5gm/50mL 12.5 GM/50 ML BTL IV SCH ×2 (16:00→20:57)
[2017-05-18] MEDS: Budesonide 0.5 Mg/2 mL Ud HHN SCH (19:18)
[2017-05-18] MEDS: Piperacillin/Tazobact 2.25 gm in 0.9% NS 50 ML IV SCH (21:00)
[2017-05-18] MEDS: Atorvastatin Calcium 10 MG TAB GT SCH (21:01)
[2017-05-18] MEDS: Morphine Sulfate 2 mg/mL 1mL Syr IVP PRN (21:07)
--- NOTE | 2017-05-18 21:12 | Infectious Disease Prog Note ---
Infectious Disease Subjective - Review of Systems Service Date: 05/18/17 Subjective: No new change. No fever. Infectious Disease Objective - Results Result Diagrams: 05/18/17 07:33 05/18/17 04:40 Recent Labs: Laboratory Last Values WBC 10.9 Th/cmm (4.8-10.8) H D 05/18/17 07:33 RBC 2.94 Mil/cmm (3.80-5.80) L 05/18/17 07:33 Hgb 8.3 gm/dL (12.6-17.4) L 05/18/17 07:33 Hct 24.9 % (39.0-49.0) L 05/18/17 07:33 MCV 84.6 fl (80-99) 05/18/17 07:33 MCH 28.3 pg (27.0-31.0) 05/18/17 07:33 MCHC Differential 33.4 pg (28.0-36.0) 05/18/17 07:33 RDW 15.2 % (11.5-20.0) 05/18/17 07:33 Plt Count 263 Th/cmm (150-400) 05/18/17 07:33 MPV 8.2 fl 05/18/17 07:33 Neutrophils % 75.7 % (40.0-80.0) 05/18/17 07:33 Band Neutrophils % 1 % (0-10) 05/17/17 05:02 Lymphocytes % 13.2 % (20.0-50.0) L 05/18/17 07:33 Monocytes % 8.3 % (2.0-10.0) 05/18/17 07:33 Eosinophils % 2.0 % (0.0-5.0) 05/18/17 07:33 Basophils % 0.8 % (0.0-2.0) 05/18/17 07:33 Neutrophils (Manual) 84 % (40-80) H 05/17/17 05:02 Lymphocytes 10 % (20-50) L 05/17/17 05:02 Monocytes 5 % (2-10) 05/17/17 05:02 Platelet Estimate ADEQUATE (NORMAL) 05/17/17 05:02 Eos Smear Source URINE 05/14/17 18:00 Eos Smear Total Cells FEW EOSINOPHILS SEEN (NONE SEEN) 05/14/17 18:00 PT 11.9 SECONDS (9.5-11.5) H 05/13/17 17:42 INR 1.13 (0.5-1.4) 05/13/17 17:42 PTT (Actin FS) 30.5 SECONDS (26.0-38.0) 05/15/17 12:30 Sodium 136 mEq/L (136-145) 05/18/17 04:40 Potassium 4.0 mEq/L (3.5-5.1) 05/18/17 04:40 Chloride 104 mEq/L (98-107) 05/18/17 04:40 Carbon Dioxide 25.6 mEq/L (21.0-31.0) 05/18/17 04:40 Anion Gap 10.4 (7.0-16.0) 05/18/17 04:40 BUN 81 mg/dL (7-25) H* 05/18/17 04:40 Creatinine 2.8 mg/dL (0.7-1.3) H 05/18/17 04:40 Est GFR ( Amer) TNP 05/18/17 04:40 Est GFR (Non-Af Amer) TNP 05/18/17 04:40 BUN/Creatinine Ratio 28.9 05/18/17 04:40 Glucose 259 mg/dL (70-105) H 05/18/17 04:40 POC Glucose 159 MG/DL (70 - 105) H 05/18/17 18:05 Hemoglobin A1c % 6.1 % (4.0-6.0) H 05/15/17 06:30 Plasma/Ser Osmolality 301 mOsmol/kg (280-301) 05/14/17 18:20 Whole Bld Lactic Acid 1.58 mmol/L (0.60-1.99) 05/13/17 17:42 Uric Acid 7.7 mg/dL (4.4-7.6) H 05/15/17 06:30 Calcium 8.4 mg/dL (8.6-10.3) L 05/18/17 04:40 Phosphorus 5.4 mg/dL (2.5-5.0) H 05/15/17 06:30 Magnesium 2.2 mg/dL (1.9-2.7) 05/15/17 06:30 Total Bilirubin 0.3 mg/dL (0.3-1.0) 05/18/17 04:40 AST 53 U/L (13-39) H 05/18/17 04:40 ALT 12 U/L (7-52) 05/18/17 04:40 Alkaline Phosphatase 115 U/L (34-104) H 05/18/17 04:40 Creatine Kinase 35 U/L (30-223) 05/16/17 23:06 Troponin I 0.02 ng/mL (0.01-0.05) 05/16/17 23:06 B-Natriuretic Peptide 1560.0 pg/mL (5.0-100.0) H 05/17/17 05:02 Total Protein 6.3 gm/dL (6.0-8.3) 05/18/17 04:40 Albumin 2.6 gm/dL (4.2-5.5) L 05/18/17 04:40 Globulin 3.7 gm/dL 05/18/17 04:40 Albumin/Globulin Ratio 0.7 (1.0-1.8) L 05/18/17 04:40 TSH 2.74 uIU/ml (0.34-5.60) 05/15/17 06:30 Urine Source CATH 05/13/17 19:50 Urine Color YELLOW 05/13/17 19:50 Urine Clarity CLOUDY (CLEAR) 05/13/17 19:50 Urine pH 6.0 05/13/17 19:50 Ur Specific [place] 1.015 (1.005-1.030) 05/13/17 19:50 Urine Protein 100 mg/dL (NEGATIVE) H 05/13/17 19:50 Urine Glucose (UA) NEGATIVE mg/dL (NEGATIVE) 05/13/17 19:50 Urine Ketones NEGATIVE mg/dL (NEGATIVE) 05/13/17 19:50 Urine Blood LARGE (NEGATIVE) H 05/13/17 19:50 Urine Nitrate NEGATIVE (NEGATIVE) 05/13/17 19:50 Urine Bilirubin NEGATIVE (NEGATIVE) 05/13/17 19:50 Urine Urobilinogen 0.2 E.U./dL (0.2 - 1.0) 05/13/17 19:50 Ur Leukocyte Esterase LARGE (NEGATIVE) H 05/13/17 19:50 Urine RBC 50-100 /hpf (0-5) H 05/13/17 19:50 Urine WBC >100 /hpf (0-5) H 05/13/17 19:50 Ur Epithelial Cells NONE SEEN /lpf (FEW) 05/13/17 19:50 Urine Bacteria NONE SEEN /hpf (NONE SEEN) 05/13/17 19:50 Ur Random Sodium 30 mmol/L 05/14/17 18:00 Urine Creatinine 36.4 mg/dl (Not Estab.) 05/14/17 18:00 Urine Microalbumin 363.5 ug/mL (Not Estab.) 05/14/17 18:00 Microalb/Creat Ratio 998.6 mg/g creat (0.0-30.0) H 05/14/17 18:00 Random Vancomycin 14.5 ug/mL (5.0-40.0) 05/18/17 04:40 Blood Type B POSITIVE 05/13/17 20:36 Antibody Screen NEGATIVE 05/13/17 20:36 - Physical Exam Vitals and I&O: Vital Signs Temp 98.4 F 05/18/17 19:00 Pulse 117 05/18/17 21:02 Resp 22 05/18/17 19:24 BP 159/98 05/18/17 21:02 Pulse Ox 100 05/18/17 19:24 Intake & Output 05/18/17 05/18/17 05/19/17 06:59 18:59 06:59 Intake Total 920 1790 Output Total 327 350 Balance 593 1440 Weight (lbs) 83.506 kg 62.823 kg Intake: Intake, IV Amount 100 450 Albumin 25% 12.5gm/50mL 50 12.5 gm In 50 ml @ 50 mls /hr IV TID YESSICA Rx#: [id number] Azithromycin 250 mg In 250 Sodium Chloride 0.9% 250 ml @ 250 mls/hr IV Q24HR YESSICA Rx#:[id number] Piperacillin Sodium/ 100 50 Tazobact 3.375 gm In Sodium Chloride 0.9% 50 ml @ 100 mls/hr IV Q8HR YESSICA Rx#:[id number] Vancomycin HCl 500 mg In 100 Sodium Chloride 0.9% 100 ml @ 100 mls/hr IV 1200 YESSICA Rx#:[id number] Oral 0 Tube Feeding 720 540 Other 100 800 Output: Urine 325 350 Stool 2 Other: # Bowel Movements 1 Stool Characteristics Soft Liquid Liquid Brown Brown Active Medications: Current Medications Acetaminophen (Tylenol) 650 mg PO Q4HR PRN PRN Reason: Pain Or Fever above 101 Stop: 07/14/17 15:15 Last Admin: 05/17/17 11:11 Dose: 650 mg Atorvastatin Calcium (Lipitor) 10 mg GT HS YESSICA PRN Reason: Protocol Stop: 07/14/17 20:59 Last Admin: 05/18/17 21:01 Dose: 10 mg Budesonide (Pulmicort) 0.5 mg HHN BIDRT YESSICA Stop: 07/17/17 18:59 Last Admin: 05/18/17 19:18 Dose: 0.5 mg Carbidopa/Levodopa (Sinemet 25mg-100 Mg) 1 tab PO TID [facility] Stop: 07/14/17 08:59 Last Admin: 05/18/17 21:03 Dose: 1 tab Furosemide (Lasix) 40 mg IVP DAILY YESSICA Stop: 07/18/17 08:59 Heparin Sodium (Porcine) (Heparin) 5,000 units SUBQ Q8H [facility] Stop: 07/14/17 14:59 Last Admin: 05/18/17 15:00 Dose: Not Given Piperacillin Sod/Tazobactam (Sod 2.25 gm/ Sodium Chloride) 50 mls @ 100 mls/hr IV Q8HR [facility] Stop: 07/17/17 20:59 Last Admin: 05/18/17 21:00 Dose: 100 mls/hr Albumin Human (Albutein 25%) 12.5 gm in 50 mls @ 50 mls/hr IV TID [facility] Stop: 05/21/17 09:59 Last Admin: 05/18/17 20:57 Dose: 50 mls/hr Doxycycline Hyclate 100 mg/ (Dextrose) 100 mls @ 100 mls/hr IV Q12H [facility] Stop: 07/17/17 21:14 Insulin Aspart (Novolog Insulin Sliding Scale) 0 units SUBQ Q6HR YESSICA PRN Reason: Protocol Stop: 07/14/17 00:00 Last Admin: 05/18/17 18:06 Dose: Not Given Insulin Detemir (Levemir Insulin) 20 units SUBQ DAILY YESSICA PRN Reason: Protocol Stop: 07/18/17 08:59 Ipratropium [place] (Atrovent Neb 0.5mg/2.5ml) 0.5 mg HHN Q4HRT [facility] Stop: 07/17/17 14:59 Last Admin: 05/18/17 19:18 Dose: 0.5 mg Isosorbide Dinitrate (Isordil) 10 mg GT TID YESSICA Stop: 07/14/17 08:59 Last Admin: 05/18/17 21:02 Dose: 10 mg Lactobacillus Rhamnosus (Culturelle) 1 each PO DAILY YESSICA Stop: 07/17/17 08:59 Last Admin: 05/18/17 09:27 Dose: 1 each Lactulose (Cephulac) 20 gm PO TID YESSICA Stop: 07/14/17 08:59 Last Admin: 05/18/17 21:01 Dose: 20 gm Levetiracetam (Keppra) 250 mg NG BID [facility] Stop: 07/14/17 08:59 Last Admin: 05/18/17 16:55 Dose: 250 mg Metoprolol Tartrate (Lopressor) 50 mg PO BID [facility] Stop: 07/16/17 16:59 Last Admin: 05/18/17 16:27 Dose: 50 mg Miscellaneous (Vte Chemical Prophylaxis Screen/ Admission) 1 ea PRN PRN PRN Reason: PROTOCOL Stop: 07/14/17 09:25 Miscellaneous (Clinical Monitoring) 1 ea MC DAILY PRN PRN Reason: RENAL Stop: 07/15/17 12:32 Miscellaneous (Probiotic Screen) 1 [facility] PRN PRN PRN Reason: PROTOCOL Stop: 07/16/17 09:33 Morphine Sulfate (Morphine) 2 mg IVP Q3H PRN PRN Reason: PAIN Stop: 07/13/17 19:46 Last Admin: 05/18/17 21:07 Dose: 2 mg Mupirocin (Bactroban Oint) 1 appl TP BID [facility] Stop: 07/14/17 16:59 Last Admin: 05/18/17 16:27 Dose: 1 appl Pantoprazole Sodium (Protonix) 40 mg GT DAILY [facility] Stop: 07/14/17 08:59 Last Admin: 05/18/17 09:27 Dose: 40 mg Rifaximin (Xifaxan) 550 mg GT BID [facility] Stop: 07/14/17 08:59 Last Admin: 05/18/17 16:27 Dose: 550 mg General: no acute distress, well developed, well nourished HEENT: atraumatic, normocephalic, PERRLA, EOMI Neck: supple, no thyromegaly Cardiovascular: S1S2, regular Lungs: clear to percussion, crackles, no clear to auscultation bilaterally Abdomen: soft, bowel sounds, no tender, no distended, no hepatomegaly, no splenomegaly Extremities: no cyanosis, no clubbing Neurological: awake, alert, oriented Skin: intact Infectious Disease Assmt/Plan - Problem List Patient Problems: All Active Problems COUGH AND CONGESTION (Acute) - Assessment Assessment: 1. Pneuimonia.? Aspiration. 2. NICK. 3. CVA. 4. CHF. 5. CKD4. NICK mild rise in creatinine. 6. Afib with rapid ventricular response. Plan: Continue zosyn. Change zithro to doxy to cover atypical and MRSA. Nutritional Asmnt/Malnutr-PDOC - Dietary Evaluation Malnutrition Findings (Please click <Entered> for more info): Nutritional Asmnt/Malnutrition Start: 05/15/17 13: 56 Text: Status: Complete Freq: Document 05/15/17 13:56 GSUN (Rec: 05/15/17 14:18 GSUN [id number]) Nutritional Asmnt/Malnutrition Patient General Information Nutritional Screening High Risk Screening Diagnosis PNA, NICK, icnreasing renal failure, CVA, CHF, DM Pertinent Medical Hx/Surgical Hx CVA, dementia, afib, CAD, HTN, dyslipidemia, epilepsy, GERD, aspiration PNA, DM, CKD, dehydration, C. diff, anemia D Subjective Information 86 year old male from SNF. Pt greeted RD. Pt is overall thin , moderate to severe wasting to chest, clavicles, extremities. Observed Glytrol running at 60ml/hr x20hrs during visit. Unable to obtain CBW due to bedscale not calibrated. Discussed with YVETTE Farooq regarding tube feeding recommendations. Current Diet Order/ Nutrition Support Glytrol at 60ml/hr x 20hrs, providing 1200kcal 54g protein Pertinent Medications Lipitor, Novolog, Levemir, Cephulac, Morphine, Protonix, Nacl 0.9% Pertinent Labs 05/13: potassium 5.3H, BUN 80H, creatinine 2.4H, glucose 103 05/15: potassium WNL, BUN 70H, creatinine 2.4H, glucose 239H, A1c 6.1H, phosphorus 5.4H Nutritional Hx/Data Height 1.68 m Height (Calculated Centimeters) 167.6 Current Weight (lbs) 65.771 kg Weight (Calculated Kilograms) 65.8 Weight (Calculated Grams) 18093.9 [place] Body Weight 142 Weight Status Approriate GI Symptoms Difficult in: Swallowing Cultural/Ethnic/[employer] Belief [facility]: Glucerna 1.2 at 85ml/hr x 20hrs, providing 2040kcal, promote weight gain. Skin Integrity/Comment: Gee 12. Skin intact. Estimated Nutritional Goals Calories/Kcals/Kg CBW 145lb/65.9kg Kcals Calculated 1976-2306kcal (30-35kcal/kg) Protein Calculated 46-92g (0.7-1.4g/kg, renal vs moderate to severe wasting) Fluid: ml Per MD (renal) Nutritional Problem 2. Problem Problem Impaired nutrient utilization related to Etiology NICK, hx CKD aeb Signs/Symptoms: "increasing renal failure," potaasum 5.3H on adm, BUN 70H, septic tank cleaner 2.4H, phosphorus 5.4H 1. Problem Problem Inadequate intake from enteral nutrition infusion related to Etiology estimated nutritional needs aeb Signs/Symptoms: providing to meet 61% lower end kcal needs Intervention/Recommendation Comments 1. Recommend Novasource Renal at 50ml/hr x 20hrs, providing 2000kcal and 91g protein. Current order Glytrol at 60ml/ hr x 20hrs is only providing 1200kcal, pt recieves 2040kcal at [facility]. Expected Outcomes/Goals Expected Outcomes/Goals 1. Pt to meet at least 100% of estimated nutritional needs on tube feeding with tolerance .
[2017-05-19] MEDS: Ipratropium Neb 0.5 mg/2.5 mL UD HHN SCH ×6 (03:20→23:52)
[2017-05-19] MEDS: Piperacillin/Tazobact 2.25 gm in 0.9% NS 50 ML IV SCH ×3 (04:36→21:06)
[2017-05-19 05:13] LABS: MEAN CELL VOLUME 85.6 fl (80-99); MEAN CORPUSCULAR HEMOGLOBIN 28.4 pg (27.0-31.0); MEAN CORPUSCULAR HGB CONC 33.2 pg (28.0-36.0); MEAN PLATELET VOLUME 8.5 fl; PLATELET COUNT 262 Th/cmm (150-400); RED BLOOD COUNT 2.77 Mil/cmm (3.80-5.80); RED CELL DISTRIBUTION WIDTH 15.3 % (11.5-20.0); WHITE BLOOD COUNT 11.3 Th/cmm (4.8-10.8)
[2017-05-19 05:44] LABS: HEMOGLOBIN 7.9 gm/dL (12.6-17.4)
[2017-05-19 05:45] LABS: HEMATOCRIT 23.7 % (39.0-49.0)
[2017-05-19 05:59] LABS: ALB/GLOB RATIO 0.8 (1.0-1.8); ALKALINE PHOSPHATASE 81 U/L (34-104); ANION GAP 13.4 (7.0-16.0); BILIRUBIN,TOTAL 0.3 mg/dL (0.3-1.0); BUN/CREATININE RATIO 26.7; CALCIUM SERUM 8.8 mg/dL (8.6-10.3); CHLORIDE 103 mEq/L (98-107); CREATININE - SERUM 3.3 mg/dL (0.7-1.3); GLUCOSE 265 mg/dL (70-105); POTASSIUM SERUM 4.4 mEq/L (3.5-5.1); SGOT 24 U/L (13-39); SGPT/ALT 6 U/L (7-52); SODIUM SERUM 137 mEq/L (136-145)
[2017-05-19 06:05] LABS: BILIRUBIN,DIRECT 0.09 mg/dL (0.0-0.2); BUN - UREA NITROGEN 88 mg/dL (7-25); VANCOMYCIN RANDOM 19.1 ug/mL (5.0-40.0)
[2017-05-19] MEDS: Morphine Sulfate 2 mg/mL 1mL Syr IVP PRN ×3 (06:23→19:00)
[2017-05-19] MEDS: Diltiazem 5 mg/mL 5mL Vial IVP PRN ×2 (06:23→13:07)
[2017-05-19] MEDS: INSULIN ASPART SLIDING SCALE 100 UNITS/ML UNIT SUBQ SCH ×4 (06:27→17:59)
[2017-05-19 07:26] LABS: EOSINOPHIL 4 % (0-5); NEUTROPHILS 76 % (40-80); PLATELET ESTIMATE ADEQUATE (NORMAL); TOTAL CELLS COUNTED 100
[2017-05-19] MEDS: Budesonide 0.5 Mg/2 mL Ud HHN SCH ×2 (07:26→19:56)
[2017-05-19 09:19] LABS: ABG SOURCE Arterial; ALLEN TEST YES; BE(B) 0.9 mEq/L (-3.0-3.0); FIO2 32; HCO3 25.4 mEq/L (20.0-26.0); pH 7.31 (7.35-7.45)
[2017-05-19 09:20] LABS: CRITICAL VALUES REPORTED BY SH
[2017-05-19] MEDS: Pantoprazole 40 mg/Packet GT SCH (09:24)
[2017-05-19] MEDS: Lactobacillus Rhamnosus 10 Billion CFU Capsule PO SCH (09:24)
[2017-05-19] MEDS: Lactulose 10 Gm/15 mL 30mL UDC PO SCH ×3 (09:24→20:52)
[2017-05-19] MEDS: Albumin 25% 12.5gm/50mL 12.5 GM/50 ML BTL IV SCH ×3 (09:31→20:55)
[2017-05-19] MEDS: Levetiracetam 500 mg/5mL 5mL UDC NG SCH ×2 (09:40→17:53)
--- NOTE | 2017-05-19 09:42 | Diagnostic Imaging Report ---
Portable chest x-ray HISTORY: Congestive heart failure Compared with prior exam May 17, 2017, the heart remains enlarged. There is pulmonary vascular redistribution consistent cardiac decompensation. No change in a right pleural effusion. Hazy interstitial markings. IMPRESSION: 1. No significant change in findings consistent with congestive heart failure including a right pleural effusion.
[2017-05-19] MEDS: Insulin Detemir 100 units/mL 10mL Vial SUBQ SCH (09:47)
--- NOTE | 2017-05-19 09:57 | Diagnostic Imaging Report ---
CT scan of the chest without intravenous contrast HISTORY: Shortness of breath Total DLP equals N/A CTDI equals N/A Axial sections were obtained from a level above the clavicles down to level below the diaphragm. The heart is enlarged. Coronary artery and atherosclerotic vascular calcification noted. There is a moderate to large right pleural effusion. Underlying consolidation and/or atelectasis seen in the right lower lobe. Obscuration of the margins of the right hilum. There is a small left pleural effusion. Underlying atelectasis and or consolidation noted. There is partial visualization of what appears to be a relatively large right renal cyst. IMPRESSION: 1. Relatively large right pleural effusion along with a small to moderate left pleural effusion. Underlying parenchymal changes within the lower lobes consistent with atelectasis and/or consolidation. 2. Cardiomegaly with atherosclerotic coronary artery calcification. Hazy interstitial markings may be associated with a degree of congestive heart failure. Clinical relation is needed. 3. Partial visualization of relatively large right renal cyst
--- NOTE | 2017-05-19 11:36 | General Progress Note ---
Subjective - Review of Systems Events since last encounter: no distress no change Subjective: pt is sleeping pt is in no acute distress Objective - Results Result Diagrams: 05/19/17 04:50 05/19/17 04:50 Recent Labs: Laboratory Last Values WBC 11.3 Th/cmm (4.8-10.8) H 05/19/17 04:50 RBC 2.77 Mil/cmm (3.80-5.80) L 05/19/17 04:50 Hgb 7.9 gm/dL (12.6-17.4) L* 05/19/17 04:50 Hct 23.7 % (39.0-49.0) L* 05/19/17 04:50 MCV 85.6 fl (80-99) 05/19/17 04:50 MCH 28.4 pg (27.0-31.0) 05/19/17 04:50 MCHC Differential 33.2 pg (28.0-36.0) 05/19/17 04:50 RDW 15.3 % (11.5-20.0) 05/19/17 04:50 Plt Count 262 Th/cmm (150-400) 05/19/17 04:50 MPV 8.5 fl 05/19/17 04:50 Neutrophils % 75.7 % (40.0-80.0) 05/18/17 07:33 Band Neutrophils % 1 % (0-10) 05/17/17 05:02 Lymphocytes % 13.2 % (20.0-50.0) L 05/18/17 07:33 Monocytes % 8.3 % (2.0-10.0) 05/18/17 07:33 Eosinophils % 2.0 % (0.0-5.0) 05/18/17 07:33 Basophils % 0.8 % (0.0-2.0) 05/18/17 07:33 Neutrophils (Manual) 76 % (40-80) 05/19/17 04:50 Lymphocytes 15 % (20-50) L 05/19/17 04:50 Monocytes 5 % (2-10) 05/19/17 04:50 Eosinophils 4 % (0-5) 05/19/17 04:50 Platelet Estimate ADEQUATE (NORMAL) 05/19/17 04:50 Eos Smear Source URINE 05/14/17 18:00 Eos Smear Total Cells FEW EOSINOPHILS SEEN (NONE SEEN) 05/14/17 18:00 PT 11.9 SECONDS (9.5-11.5) H 05/13/17 17:42 INR 1.13 (0.5-1.4) 05/13/17 17:42 PTT (Actin FS) 30.5 SECONDS (26.0-38.0) 05/15/17 12:30 Specimen Source Arterial 05/19/17 09:00 Sample Site Left Radial 05/19/17 09:00 pH 7.31 (7.35-7.45) L 05/19/17 09:00 pCO2 56.0 mmHg (35.0-45.0) H* 05/19/17 09:00 pO2 58.0 mmHg (80.0-100.0) L 05/19/17 09:00 HCO3 25.4 mEq/L (20.0-26.0) 05/19/17 09:00 Base Excess 0.9 mEq/L (-3.0-3.0) 05/19/17 09:00 O2 Saturation 87.0 % (92.0-100.0) L 05/19/17 09:00 [place] Test YES 05/19/17 09:00 Vent Rate NA 05/19/17 09:00 Inspired O2 32 05/19/17 09:00 Tidal Volume NA 05/19/17 09:00 PEEP NA 05/19/17 09:00 Pressure (ins/psv/peep) NA 05/19/17 09:00 Critical Value SH 05/19/17 09:00 Sodium 137 mEq/L (136-145) 05/19/17 04:50 Potassium 4.4 mEq/L (3.5-5.1) 05/19/17 04:50 Chloride 103 mEq/L (98-107) 05/19/17 04:50 Carbon Dioxide 25.0 mEq/L (21.0-31.0) 05/19/17 04:50 Anion Gap 13.4 (7.0-16.0) 05/19/17 04:50 BUN 88 mg/dL (7-25) H* 05/19/17 04:50 Creatinine 3.3 mg/dL (0.7-1.3) H 05/19/17 04:50 Est GFR ( Amer) TNP 05/19/17 04:50 Est GFR (Non-Af Amer) TNP 05/19/17 04:50 BUN/Creatinine Ratio 26.7 05/19/17 04:50 Glucose 265 mg/dL (70-105) H 05/19/17 04:50 POC Glucose 183 MG/DL (70 - 105) H 05/19/17 09:47 Hemoglobin A1c % 6.1 % (4.0-6.0) H 05/15/17 06:30 Plasma/Ser Osmolality 301 mOsmol/kg (280-301) 05/14/17 18:20 Whole Bld Lactic Acid 1.58 mmol/L (0.60-1.99) 05/13/17 17:42 Uric Acid 7.7 mg/dL (4.4-7.6) H 05/15/17 06:30 Calcium 8.8 mg/dL (8.6-10.3) 05/19/17 04:50 Phosphorus 5.4 mg/dL (2.5-5.0) H 05/15/17 06:30 Magnesium 2.2 mg/dL (1.9-2.7) 05/15/17 06:30 Total Bilirubin 0.3 mg/dL (0.3-1.0) 05/19/17 04:50 Direct Bilirubin 0.09 mg/dL (0.0-0.2) 05/19/17 04:50 AST 24 U/L (13-39) 05/19/17 04:50 ALT 6 U/L (7-52) L 05/19/17 04:50 Alkaline Phosphatase 81 U/L (34-104) 05/19/17 04:50 Ammonia 65 umol/L (16-53) H 05/19/17 04:50 Creatine Kinase 35 U/L (30-223) 05/16/17 23:06 Troponin I 0.02 ng/mL (0.01-0.05) 05/16/17 23:06 B-Natriuretic Peptide 1770.0 pg/mL (5.0-100.0) H 05/19/17 04:50 Total Protein 7.1 gm/dL (6.0-8.3) 05/19/17 04:50 Albumin 3.2 gm/dL (4.2-5.5) L 05/19/17 04:50 Globulin 3.9 gm/dL 05/19/17 04:50 Albumin/Globulin Ratio 0.8 (1.0-1.8) L 05/19/17 04:50 TSH 2.74 uIU/ml (0.34-5.60) 05/15/17 06:30 Urine Source CATH 05/13/17 19:50 Urine Color YELLOW 05/13/17 19:50 Urine Clarity CLOUDY (CLEAR) 05/13/17 19:50 Urine pH 6.0 05/13/17 19:50 Ur Specific [place] 1.015 (1.005-1.030) 05/13/17 19:50 Urine Protein 100 mg/dL (NEGATIVE) H 05/13/17 19:50 Urine Glucose (UA) NEGATIVE mg/dL (NEGATIVE) 05/13/17 19:50 Urine Ketones NEGATIVE mg/dL (NEGATIVE) 05/13/17 19:50 Urine Blood LARGE (NEGATIVE) H 05/13/17 19:50 Urine Nitrate NEGATIVE (NEGATIVE) 05/13/17 19:50 Urine Bilirubin NEGATIVE (NEGATIVE) 05/13/17 19:50 Urine Urobilinogen 0.2 E.U./dL (0.2 - 1.0) 05/13/17 19:50 Ur Leukocyte Esterase LARGE (NEGATIVE) H 05/13/17 19:50 Urine RBC 50-100 /hpf (0-5) H 05/13/17 19:50 Urine WBC >100 /hpf (0-5) H 05/13/17 19:50 Ur Epithelial Cells NONE SEEN /lpf (FEW) 05/13/17 19:50 Urine Bacteria NONE SEEN /hpf (NONE SEEN) 05/13/17 19:50 Ur Random Sodium 30 mmol/L 05/14/17 18:00 Urine Creatinine 36.4 mg/dl (Not Estab.) 05/14/17 18:00 Urine Microalbumin 363.5 ug/mL (Not Estab.) 05/14/17 18:00 Microalb/Creat Ratio 998.6 mg/g creat (0.0-30.0) H 05/14/17 18:00 Random Vancomycin 19.1 ug/mL (5.0-40.0) 05/19/17 04:50 Blood Type B POSITIVE 05/13/17 20:36 Antibody Screen NEGATIVE 05/13/17 20:36 - Physical Exam Vitals and I&O: Vital Signs Temp 98.2 F 05/19/17 04:00 Pulse 108 05/19/17 11:26 Resp 28 05/19/17 11:26 BP 146/58 05/19/17 09:45 Pulse Ox 93 05/19/17 11:26 Intake & Output 05/18/17 05/19/17 05/19/17 18:59 06:59 18:59 Intake Total 1790 970 50 Output Total 350 325 Balance 1440 645 50 Weight (lbs) 62.823 kg 62.505 kg Intake: Intake, IV Amount 450 50 50 Albumin 25% 12.5gm/50mL 50 50 12.5 gm In 50 ml @ 50 mls /hr IV TID [facility] Rx#: [id number] Azithromycin 250 mg In 250 Sodium Chloride 0.9% 250 ml @ 250 mls/hr IV Q24HR [facility] Rx#:[id number] Piperacillin Sodium/ 50 Tazobact 2.25 gm In Sodium Chloride 0.9% 50 ml @ 100 mls/hr IV Q8HR [facility] Rx#:[id number] Piperacillin Sodium/ 50 Tazobact 3.375 gm In Sodium Chloride 0.9% 50 ml @ 100 mls/hr IV Q8HR [facility] Rx#:[id number] Vancomycin HCl 500 mg In 100 Sodium Chloride 0.9% 100 ml @ 100 mls/hr IV 1200 [facility] Rx#:[id number] Oral 0 Tube Feeding 540 720 Albumin 50 Other 800 150 Output: Urine 350 325 Other: # Bowel Movements 1 2 Stool Characteristics Liquid Liquid Brown Brown Active Medications: Current Medications Acetaminophen (Tylenol) 650 mg PO Q4HR PRN PRN Reason: Pain Or Fever above 101 Stop: 07/14/17 15:15 Last Admin: 05/17/17 11:11 Dose: 650 mg Atorvastatin Calcium (Lipitor) 10 mg GT HS YESSICA PRN Reason: Protocol Stop: 07/14/17 20:59 Last Admin: 05/18/17 21:01 Dose: 10 mg Budesonide (Pulmicort) 0.5 mg HHN BIDRT [facility] Stop: 07/17/17 18:59 Last Admin: 05/19/17 07:26 Dose: 0.5 mg Carbidopa/Levodopa (Sinemet 25mg-100 Mg) 1 tab PO TID [facility] Stop: 07/14/17 08:59 Last Admin: 05/18/17 21:03 Dose: 1 tab Diltiazem HCl (Cardizem) 5 mg IVP Q6HR PRN PRN Reason: FOR HR >120/MIN Stop: 05/26/17 03:02 Last Admin: 05/19/17 06:23 Dose: 5 mg Furosemide (Lasix) 40 mg IVP DAILY [facility] Stop: 07/18/17 08:59 Last Admin: 05/19/17 09:25 Dose: 40 mg Heparin Sodium (Porcine) (Heparin) 5,000 units SUBQ Q8H [facility] Stop: 07/14/17 14:59 Last Admin: 05/19/17 09:30 Dose: Not Given Piperacillin Sod/Tazobactam (Sod 2.25 gm/ Sodium Chloride) 50 mls @ 100 mls/hr IV Q8HR [facility] Stop: 07/17/17 20:59 Last Admin: 05/19/17 04:36 Dose: 100 mls/hr Albumin Human (Albutein 25%) 12.5 gm in 50 mls @ 50 mls/hr IV TID [facility] Stop: 05/21/17 09:59 Last Admin: 05/19/17 09:31 Dose: 50 mls/hr Doxycycline Hyclate 100 mg/ (Dextrose) 100 mls @ 100 mls/hr IV Q12H [facility] Stop: 07/17/17 21:59 Last Admin: 05/19/17 09:39 Dose: 100 mls/hr Insulin Aspart (Novolog Insulin Sliding Scale) 0 units SUBQ Q6HR [facility] PRN Reason: Protocol Stop: 07/14/17 00:00 Last Admin: 05/19/17 06:27 Dose: 3 units Insulin Detemir (Levemir Insulin) 20 units SUBQ DAILY [facility] PRN Reason: Protocol Stop: 07/18/17 08:59 Last Admin: 05/19/17 09:47 Dose: 20 units Ipratropium [place] (Atrovent Neb 0.5mg/2.5ml) 0.5 mg HHN Q4HRT [facility] Stop: 07/17/17 14:59 Last Admin: 05/19/17 11:22 Dose: 0.5 mg Isosorbide Dinitrate (Isordil) 10 mg GT TID [facility] Stop: 07/14/17 08:59 Last Admin: 05/19/17 09:28 Dose: 10 mg Lactobacillus Rhamnosus (Culturelle) 1 each PO DAILY [facility] Stop: 07/17/17 08:59 Last Admin: 05/19/17 09:24 Dose: 1 each Lactulose (Cephulac) 20 gm PO TID YESSICA Stop: 07/14/17 08:59 Last Admin: 05/19/17 09:24 Dose: 20 gm Levetiracetam (Keppra) 250 mg NG BID YESSICA Stop: 07/14/17 08:59 Last Admin: 05/18/17 16:55 Dose: 250 mg Metoprolol Tartrate (Lopressor) 50 mg GT Q8H [facility]ESS[facility] Stop: 07/18/17 08:59 Last Admin: 05/19/17 09:45 Dose: 50 mg Miscellaneous (Vte Chemical Prophylaxis Screen/ Admission) 1 ea PRN PRN PRN Reason: PROTOCOL Stop: 07/14/17 09:25 Miscellaneous (Clinical Monitoring) 1 ea MC DAILY PRN PRN Reason: RENAL Stop: 07/15/17 12:32 Miscellaneous (Probiotic Screen) 1 ea PRN PRN PRN Reason: PROTOCOL Stop: 07/16/17 09:33 Morphine Sulfate (Morphine) 2 mg IVP Q3H PRN PRN Reason: PAIN Stop: 07/13/17 19:46 Last Admin: 05/19/17 06:23 Dose: 2 mg Mupirocin (Bactroban Oint) 1 appl TP BID YESSICA Stop: 07/14/17 16:59 Last Admin: 05/19/17 09:24 Dose: 1 appl Pantoprazole Sodium (Protonix) 40 mg GT DAILY YESSICA Stop: 07/14/17 08:59 Last Admin: 05/19/17 09:24 Dose: 40 mg Rifaximin (Xifaxan) 550 mg GT BID YESSICA Stop: 07/14/17 08:59 Last Admin: 05/19/17 09:24 Dose: 550 mg General: Alert, Moderate distress, no No acute distress (rhonchi, exp. wheeze, tight exp) HEENT: Atraumatic, Mucous membr. moist/pink Neck: Supple, +2 carotid pulse wo bruit Cardiovascular: Regular rate, Normal S1, Normal S2, Other (afib ) Lungs: Other (few rhonchi, mild congestion) Abdomen: Bowel sounds, Soft Extremities: no Edema Neurological: Sensation intact Skin: no Rash Psych/Mental Status: Mood NL Assessment/Plan - Problem List Patient Problems: All Active Problems COUGH AND CONGESTION (Acute) - Assessment Assessment: Current Active Problems Problem Status Onset COUGH AND CONGESTION Acute sob pnumonia r/o sepsis incresing renal failure h/o cva h/o atrail fib dm nick h/o c diff uti anemia - Plan Plan: iv fluids renal consult id consult Nutritional Asmnt/Malnutr-PDOC - Dietary Evaluation Malnutrition Findings (Please click <Entered> for more info): Nutritional Asmnt/Malnutrition Start: 05/15/17 13: 56 Text: Status: Complete Freq: Document 05/15/17 13:56 GSUN (Rec: 05/15/17 14:18 GSUN [id number]) Nutritional Asmnt/Malnutrition Patient General Information Nutritional Screening High Risk Screening Diagnosis PNA, NICK, icnreasing renal failure, CVA, CHF, DM Pertinent Medical Hx/Surgical Hx CVA, dementia, afib, CAD, HTN, dyslipidemia, epilepsy, GERD, aspiration PNA, DM, CKD, dehydration, C. diff, anemia D Subjective Information 86 year old male from SNF. Pt greeted RD. Pt is overall thin , moderate to severe wasting to chest, clavicles, extremities. Observed Glytrol running at 60ml/hr x20hrs during visit. Unable to obtain CBW due to bedscale not calibrated. Discussed with YVETTE Farooq regarding tube feeding recommendations. Current Diet Order/ Nutrition Support Glytrol at 60ml/hr x 20hrs, providing 1200kcal 54g protein Pertinent Medications Lipitor, Novolog, Levemir, Cephulac, Morphine, Protonix, Nacl 0.9% Pertinent Labs 05/13: potassium 5.3H, BUN 80H, creatinine 2.4H, glucose 103 05/15: potassium WNL, BUN 70H, creatinine 2.4H, glucose 239H, A1c 6.1H, phosphorus 5.4H Nutritional Hx/Data Height 1.68 m Height (Calculated Centimeters) 167.6 Current Weight (lbs) 65.771 kg Weight (Calculated Kilograms) 65.8 Weight (Calculated Grams) 37141.9 [place] Body Weight 142 Weight Status Approriate GI Symptoms Difficult in: Swallowing Cultural/Ethnic/Faith Belief [place] [facility]: Glucerna 1.2 at 85ml/hr x 20hrs, providing 2040kcal, promote weight gain. Skin Integrity/Comment: Gee 12. Skin intact. Estimated Nutritional Goals Calories/Kcals/Kg CBW 145lb/65.9kg Kcals Calculated 1976-7kcal (30-35kcal/kg) Protein Calculated 46-92g (0.7-1.4g/kg, renal vs moderate to severe wasting) Fluid: ml Per MD (renal) Nutritional Problem 2. 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 Problem Problem Inadequate intake from enteral nutrition infusion related to Etiology estimated nutritional needs aeb Signs/Symptoms: providing to meet 61% lower end kcal needs Intervention/Recommendation Comments 1. Recommend Novasource Renal at 50ml/hr x 20hrs, providing 2000kcal and 91g protein. Current order Glytrol at 60ml/ hr x 20hrs is only providing 1200kcal, pt recieves 2040kcal at [facility]. Expected Outcomes/Goals Expected Outcomes/Goals 1. Pt to meet at least 100% of estimated nutritional needs on tube feeding with tolerance .
--- NOTE | 2017-05-19 12:42 | Infectious Disease Prog Note ---
Infectious Disease Subjective - Review of Systems Service Date: 05/19/17 Subjective: No new change. No fever. Infectious Disease Objective - Results Result Diagrams: 05/19/17 04:50 05/19/17 04:50 Recent Labs: Laboratory Last Values WBC 11.3 Th/cmm (4.8-10.8) H 05/19/17 04:50 RBC 2.77 Mil/cmm (3.80-5.80) L 05/19/17 04:50 Hgb 7.9 gm/dL (12.6-17.4) L* 05/19/17 04:50 Hct 23.7 % (39.0-49.0) L* 05/19/17 04:50 MCV 85.6 fl (80-99) 05/19/17 04:50 MCH 28.4 pg (27.0-31.0) 05/19/17 04:50 MCHC Differential 33.2 pg (28.0-36.0) 05/19/17 04:50 RDW 15.3 % (11.5-20.0) 05/19/17 04:50 Plt Count 262 Th/cmm (150-400) 05/19/17 04:50 MPV 8.5 fl 05/19/17 04:50 Neutrophils % 75.7 % (40.0-80.0) 05/18/17 07:33 Band Neutrophils % 1 % (0-10) 05/17/17 05:02 Lymphocytes % 13.2 % (20.0-50.0) L 05/18/17 07:33 Monocytes % 8.3 % (2.0-10.0) 05/18/17 07:33 Eosinophils % 2.0 % (0.0-5.0) 05/18/17 07:33 Basophils % 0.8 % (0.0-2.0) 05/18/17 07:33 Neutrophils (Manual) 76 % (40-80) 05/19/17 04:50 Lymphocytes 15 % (20-50) L 05/19/17 04:50 Monocytes 5 % (2-10) 05/19/17 04:50 Eosinophils 4 % (0-5) 05/19/17 04:50 Platelet Estimate ADEQUATE (NORMAL) 05/19/17 04:50 Eos Smear Source URINE 05/14/17 18:00 Eos Smear Total Cells FEW EOSINOPHILS SEEN (NONE SEEN) 05/14/17 18:00 PT 11.9 SECONDS (9.5-11.5) H 05/13/17 17:42 INR 1.13 (0.5-1.4) 05/13/17 17:42 PTT (Actin FS) 30.5 SECONDS (26.0-38.0) 05/15/17 12:30 Specimen Source Arterial 05/19/17 09:00 Sample Site Left Radial 05/19/17 09:00 pH 7.31 (7.35-7.45) L 05/19/17 09:00 pCO2 56.0 mmHg (35.0-45.0) H* 05/19/17 09:00 pO2 58.0 mmHg (80.0-100.0) L 05/19/17 09:00 HCO3 25.4 mEq/L (20.0-26.0) 05/19/17 09:00 Base Excess 0.9 mEq/L (-3.0-3.0) 05/19/17 09:00 O2 Saturation 87.0 % (92.0-100.0) L 05/19/17 09:00 Feliciano Test YES 05/19/17 09:00 Vent Rate NA 05/19/17 09:00 Inspired O2 32 05/19/17 09:00 Tidal Volume NA 05/19/17 09:00 PEEP NA 05/19/17 09:00 Pressure (ins/psv/peep) NA 05/19/17 09:00 Critical Value SH 05/19/17 09:00 Sodium 137 mEq/L (136-145) 05/19/17 04:50 Potassium 4.4 mEq/L (3.5-5.1) 05/19/17 04:50 Chloride 103 mEq/L (98-107) 05/19/17 04:50 Carbon Dioxide 25.0 mEq/L (21.0-31.0) 05/19/17 04:50 Anion Gap 13.4 (7.0-16.0) 05/19/17 04:50 BUN 88 mg/dL (7-25) H* 05/19/17 04:50 Creatinine 3.3 mg/dL (0.7-1.3) H 05/19/17 04:50 Est GFR ( Amer) TNP 05/19/17 04:50 Est GFR (Non-Af Amer) TNP 05/19/17 04:50 BUN/Creatinine Ratio 26.7 05/19/17 04:50 Glucose 265 mg/dL (70-105) H 05/19/17 04:50 POC Glucose 183 MG/DL (70 - 105) H 05/19/17 09:47 Hemoglobin A1c % 6.1 % (4.0-6.0) H 05/15/17 06:30 Plasma/Ser Osmolality 301 mOsmol/kg (280-301) 05/14/17 18:20 Whole Bld Lactic Acid 1.58 mmol/L (0.60-1.99) 05/13/17 17:42 Uric Acid 7.7 mg/dL (4.4-7.6) H 05/15/17 06:30 Calcium 8.8 mg/dL (8.6-10.3) 05/19/17 04:50 Phosphorus 5.4 mg/dL (2.5-5.0) H 05/15/17 06:30 Magnesium 2.2 mg/dL (1.9-2.7) 05/15/17 06:30 Total Bilirubin 0.3 mg/dL (0.3-1.0) 05/19/17 04:50 Direct Bilirubin 0.09 mg/dL (0.0-0.2) 05/19/17 04:50 AST 24 U/L (13-39) 05/19/17 04:50 ALT 6 U/L (7-52) L 05/19/17 04:50 Alkaline Phosphatase 81 U/L (34-104) 05/19/17 04:50 Ammonia 65 umol/L (16-53) H 05/19/17 04:50 Creatine Kinase 35 U/L (30-223) 05/16/17 23:06 Troponin I 0.02 ng/mL (0.01-0.05) 05/16/17 23:06 B-Natriuretic Peptide 1770.0 pg/mL (5.0-100.0) H 05/19/17 04:50 Total Protein 7.1 gm/dL (6.0-8.3) 05/19/17 04:50 Albumin 3.2 gm/dL (4.2-5.5) L 05/19/17 04:50 Globulin 3.9 gm/dL 05/19/17 04:50 Albumin/Globulin Ratio 0.8 (1.0-1.8) L 05/19/17 04:50 Prealbumin 14 mg/dL (9-32) 05/18/17 07:33 TSH 2.74 uIU/ml (0.34-5.60) 05/15/17 06:30 Urine Source CATH 05/13/17 19:50 Urine Color YELLOW 05/13/17 19:50 Urine Clarity CLOUDY (CLEAR) 05/13/17 19:50 Urine pH 6.0 05/13/17 19:50 Ur Specific [place] 1.015 (1.005-1.030) 05/13/17 19:50 Urine Protein 100 mg/dL (NEGATIVE) H 05/13/17 19:50 Urine Glucose (UA) NEGATIVE mg/dL (NEGATIVE) 05/13/17 19:50 Urine Ketones NEGATIVE mg/dL (NEGATIVE) 05/13/17 19:50 Urine Blood LARGE (NEGATIVE) H 05/13/17 19:50 Urine Nitrate NEGATIVE (NEGATIVE) 05/13/17 19:50 Urine Bilirubin NEGATIVE (NEGATIVE) 05/13/17 19:50 Urine Urobilinogen 0.2 E.U./dL (0.2 - 1.0) 05/13/17 19:50 Ur Leukocyte Esterase LARGE (NEGATIVE) H 05/13/17 19:50 Urine RBC 50-100 /hpf (0-5) H 05/13/17 19:50 Urine WBC >100 /hpf (0-5) H 05/13/17 19:50 Ur Epithelial Cells NONE SEEN /lpf (FEW) 05/13/17 19:50 Urine Bacteria NONE SEEN /hpf (NONE SEEN) 05/13/17 19:50 Ur Random Sodium 30 mmol/L 05/14/17 18:00 Urine Creatinine 36.4 mg/dl (Not Estab.) 05/14/17 18:00 Urine Microalbumin 363.5 ug/mL (Not Estab.) 05/14/17 18:00 Microalb/Creat Ratio 998.6 mg/g creat (0.0-30.0) H 05/14/17 18:00 Random Vancomycin 19.1 ug/mL (5.0-40.0) 05/19/17 04:50 Blood Type B POSITIVE 05/13/17 20:36 Antibody Screen NEGATIVE 05/13/17 20:36 - Physical Exam Vitals and I&O: Vital Signs Temp 98.2 F 05/19/17 04:00 Pulse 108 05/19/17 11:26 Resp 28 05/19/17 11:26 BP 146/58 05/19/17 09:45 Pulse Ox 93 05/19/17 11:26 Intake & Output 05/18/17 05/19/17 05/19/17 18:59 06:59 18:59 Intake Total 1790 970 50 Output Total 350 325 Balance 1440 645 50 Weight (lbs) 62.823 kg 62.505 kg Intake: Intake, IV Amount 450 50 50 Albumin 25% 12.5gm/50mL 50 50 12.5 gm In 50 ml @ 50 mls /hr IV TID [facility] Rx#: [id number] Azithromycin 250 mg In 250 Sodium Chloride 0.9% 250 ml @ 250 mls/hr IV Q24HR [facility] Rx#:[id number] Piperacillin Sodium/ 50 Tazobact 2.25 gm In Sodium Chloride 0.9% 50 ml @ 100 mls/hr IV Q8HR [facility] Rx#:[id number] Piperacillin Sodium/ 50 Tazobact 3.375 gm In Sodium Chloride 0.9% 50 ml @ 100 mls/hr IV Q8HR [facility] Rx#:[id number] Vancomycin HCl 500 mg In 100 Sodium Chloride 0.9% 100 ml @ 100 mls/hr IV 1200 [facility] Rx#:[id number] Oral 0 Tube Feeding 540 720 Albumin 50 Other 800 150 Output: Urine 350 325 Other: # Bowel Movements 1 2 Stool Characteristics Liquid Liquid Brown Brown Active Medications: Current Medications Acetaminophen (Tylenol) 650 mg PO Q4HR PRN PRN Reason: Pain Or Fever above 101 Stop: 07/14/17 15:15 Last Admin: 05/17/17 11:11 Dose: 650 mg Atorvastatin Calcium (Lipitor) 10 mg GT HS YESSICA PRN Reason: Protocol Stop: 07/14/17 20:59 Last Admin: 05/18/17 21:01 Dose: 10 mg Budesonide (Pulmicort) 0.5 mg HHN BIDRT YESSICA Stop: 07/17/17 18:59 Last Admin: 05/19/17 07:26 Dose: 0.5 mg Carbidopa/Levodopa (Sinemet 25mg-100 Mg) 1 tab PO TID [facility] Stop: 07/14/17 08:59 Last Admin: 05/18/17 21:03 Dose: 1 tab Diltiazem HCl (Cardizem) 5 mg IVP Q6HR PRN PRN Reason: FOR HR >120/MIN Stop: 05/26/17 03:02 Last Admin: 05/19/17 06:23 Dose: 5 mg Diltiazem HCl (Cardizem) 60 mg GT Q6HR [facility] Stop: 07/18/17 17:59 Furosemide (Lasix) 40 mg IVP DAILY [facility] Stop: 07/18/17 08:59 Last Admin: 05/19/17 09:25 Dose: 40 mg Heparin Sodium (Porcine) (Heparin) 5,000 units SUBQ Q8H [facility] Stop: 07/14/17 14:59 Last Admin: 05/19/17 09:30 Dose: Not Given Piperacillin Sod/Tazobactam (Sod 2.25 gm/ Sodium Chloride) 50 mls @ 100 mls/hr IV Q8HR [facility] Stop: 07/17/17 20:59 Last Admin: 05/19/17 04:36 Dose: 100 mls/hr Albumin Human (Albutein 25%) 12.5 gm in 50 mls @ 50 mls/hr IV TID [facility] Stop: 05/21/17 09:59 Last Admin: 05/19/17 09:31 Dose: 50 mls/hr Doxycycline Hyclate 100 mg/ (Dextrose) 100 mls @ 100 mls/hr IV Q12H [facility] Stop: 07/17/17 21:59 Last Admin: 05/19/17 09:39 Dose: 100 mls/hr Insulin Aspart (Novolog Insulin Sliding Scale) 0 units SUBQ Q6HR YESSICA PRN Reason: Protocol Stop: 07/14/17 00:00 Last Admin: 05/19/17 06:27 Dose: 3 units Insulin Detemir (Levemir Insulin) 20 units SUBQ DAILY [facility] PRN Reason: Protocol Stop: 07/18/17 08:59 Last Admin: 05/19/17 09:47 Dose: 20 units Ipratropium Devol (Atrovent Neb 0.5mg/2.5ml) 0.5 mg HHN Q4HRT [facility] Stop: 07/17/17 14:59 Last Admin: 05/19/17 11:22 Dose: 0.5 mg Isosorbide Dinitrate (Isordil) 10 mg GT TID [facility] Stop: 07/14/17 08:59 Last Admin: 05/19/17 09:28 Dose: 10 mg Lactobacillus Rhamnosus (Culturelle) 1 each PO DAILY YESSICA Stop: 07/17/17 08:59 Last Admin: 05/19/17 09:24 Dose: 1 each Lactulose (Cephulac) 20 gm PO TID YESSICA Stop: 07/14/17 08:59 Last Admin: 05/19/17 09:24 Dose: 20 gm Levetiracetam (Keppra) 250 mg NG BID [facility] Stop: 07/14/17 08:59 Last Admin: 05/18/17 16:55 Dose: 250 mg Metoprolol Tartrate (Lopressor) 50 mg GT Q8H [facility] Stop: 07/18/17 08:59 Last Admin: 05/19/17 09:45 Dose: 50 mg Miscellaneous (Vte Chemical Prophylaxis Screen/ Admission) 1 ea PRN PRN PRN Reason: PROTOCOL Stop: 07/14/17 09:25 Miscellaneous (Clinical Monitoring) 1 ea MC DAILY PRN PRN Reason: RENAL Stop: 07/15/17 12:32 Miscellaneous (Probiotic Screen) 1 [facility] PRN PRN PRN Reason: PROTOCOL Stop: 07/16/17 09:33 Morphine Sulfate (Morphine) 2 mg IVP Q3H PRN PRN Reason: PAIN Stop: 07/13/17 19:46 Last Admin: 05/19/17 06:23 Dose: 2 mg Mupirocin (Bactroban Oint) 1 appl TP BID [facility] Stop: 07/14/17 16:59 Last Admin: 05/19/17 09:24 Dose: 1 appl Pantoprazole Sodium (Protonix) 40 mg GT DAILY [facility] Stop: 07/14/17 08:59 Last Admin: 05/19/17 09:24 Dose: 40 mg Rifaximin (Xifaxan) 550 mg GT BID [facility] Stop: 07/14/17 08:59 Last Admin: 05/19/17 09:24 Dose: 550 mg General: no acute distress, well developed, well nourished HEENT: atraumatic, normocephalic, PERRLA, EOMI Neck: supple, thyromegaly Cardiovascular: S1S2, regular, irregular Lungs: clear to percussion, crackles Abdomen: soft, no tender, no distended Extremities: no cyanosis, no clubbing, no edema Neurological: awake, alert Skin: intact Infectious Disease Assmt/Plan - Problem List Patient Problems: All Active Problems COUGH AND CONGESTION (Acute) - Assessment Assessment: 1. Pneuimonia.? Aspiration. 2. NICK. 3. CVA. 4. CHF. 5. CKD4. NICK mild rise in creatinine. 6. Afib with rapid ventricular response. Plan: Continue zosyn and doxy to cover atypical and MRSA. Nutritional Asmnt/Malnutr-PDOC - Dietary Evaluation Malnutrition Findings (Please click <Entered> for more info): Nutritional Asmnt/Malnutrition Start: 05/15/17 13: 56 Text: Status: Complete Freq: Document 05/15/17 13:56 GSUN (Rec: 05/15/17 14:18 GSUN [id number]) Nutritional Asmnt/Malnutrition Patient General Information Nutritional Screening High Risk Screening Diagnosis PNA, NICK, icnreasing renal failure, CVA, CHF, DM Pertinent Medical Hx/Surgical Hx CVA, dementia, afib, CAD, HTN, dyslipidemia, epilepsy, GERD, aspiration PNA, DM, CKD, dehydration, C. diff, anemia D Subjective Information 86 year old male from SNF. Pt greeted RD. Pt is overall thin , moderate to severe wasting to chest, clavicles, extremities. Observed Glytrol running at 60ml/hr x20hrs during visit. Unable to obtain CBW due to bedscale not calibrated. Discussed with YVETTE Farooq regarding tube feeding recommendations. Current Diet Order/ Nutrition Support Glytrol at 60ml/hr x 20hrs, providing 1200kcal 54g protein Pertinent Medications Lipitor, Novolog, Levemir, Cephulac, Morphine, Protonix, Nacl 0.9% Pertinent Labs 05/13: potassium 5.3H, BUN 80H, creatinine 2.4H, glucose 103 05/15: potassium WNL, BUN 70H, creatinine 2.4H, glucose 239H, A1c 6.1H, phosphorus 5.4H Nutritional Hx/Data Height 1.68 m Height (Calculated Centimeters) 167.6 Current Weight (lbs) 65.771 kg Weight (Calculated Kilograms) 65.8 Weight (Calculated Grams) 17852.9 [place] Body Weight 142 Weight Status Approriate GI Symptoms Difficult in: Swallowing Cultural/Ethnic/Alevism Belief [facility]: Glucerna 1.2 at 85ml/hr x 20hrs, providing 2040kcal, promote weight gain. Skin Integrity/Comment: Gee 12. Skin intact. Estimated Nutritional Goals Calories/Kcals/Kg CBW 145lb/65.9kg Kcals Calculated 1976-7kcal (30-35kcal/kg) Protein Calculated 46-92g (0.7-1.4g/kg, renal vs moderate to severe wasting) Fluid: ml Per MD (renal) Nutritional Problem 2. Problem Problem Impaired nutrient utilization related to Etiology NICK, hx CKD aeb Signs/Symptoms: "increasing renal failure," potaasum 5.3H on adm, BUN 70H, final inspector balance wheel 2.4H, phosphorus 5.4H 1. Problem Problem Inadequate intake from enteral nutrition infusion related to Etiology estimated nutritional needs aeb Signs/Symptoms: providing to meet 61% lower end kcal needs Intervention/Recommendation Comments 1. Recommend Novasource Renal at 50ml/hr x 20hrs, providing 2000kcal and 91g protein. Current order Glytrol at 60ml/ hr x 20hrs is only providing 1200kcal, pt recieves 2040kcal at [facility]. Expected Outcomes/Goals Expected Outcomes/Goals 1. Pt to meet at least 100% of estimated nutritional needs on tube feeding with tolerance .
--- NOTE | 2017-05-19 13:39 | General Progress Note ---
Subjective - Review of Systems Service Date: 05/19/17 Subjective: Alert, more tachypneic, nonverbal Objective - Results Result Diagrams: 05/19/17 04:50 05/19/17 04:50 Recent Labs: Laboratory Last Values WBC 11.3 Th/cmm (4.8-10.8) H 05/19/17 04:50 RBC 2.77 Mil/cmm (3.80-5.80) L 05/19/17 04:50 Hgb 7.9 gm/dL (12.6-17.4) L* 05/19/17 04:50 Hct 23.7 % (39.0-49.0) L* 05/19/17 04:50 MCV 85.6 fl (80-99) 05/19/17 04:50 MCH 28.4 pg (27.0-31.0) 05/19/17 04:50 MCHC Differential 33.2 pg (28.0-36.0) 05/19/17 04:50 RDW 15.3 % (11.5-20.0) 05/19/17 04:50 Plt Count 262 Th/cmm (150-400) 05/19/17 04:50 MPV 8.5 fl 05/19/17 04:50 Neutrophils % 75.7 % (40.0-80.0) 05/18/17 07:33 Band Neutrophils % 1 % (0-10) 05/17/17 05:02 Lymphocytes % 13.2 % (20.0-50.0) L 05/18/17 07:33 Monocytes % 8.3 % (2.0-10.0) 05/18/17 07:33 Eosinophils % 2.0 % (0.0-5.0) 05/18/17 07:33 Basophils % 0.8 % (0.0-2.0) 05/18/17 07:33 Neutrophils (Manual) 76 % (40-80) 05/19/17 04:50 Lymphocytes 15 % (20-50) L 05/19/17 04:50 Monocytes 5 % (2-10) 05/19/17 04:50 Eosinophils 4 % (0-5) 05/19/17 04:50 Platelet Estimate ADEQUATE (NORMAL) 05/19/17 04:50 Eos Smear Source URINE 05/14/17 18:00 Eos Smear Total Cells FEW EOSINOPHILS SEEN (NONE SEEN) 05/14/17 18:00 PT 11.9 SECONDS (9.5-11.5) H 05/13/17 17:42 INR 1.13 (0.5-1.4) 05/13/17 17:42 PTT (Actin FS) 30.5 SECONDS (26.0-38.0) 05/15/17 12:30 Specimen Source Arterial 05/19/17 09:00 Sample Site Left Radial 05/19/17 09:00 pH 7.31 (7.35-7.45) L 05/19/17 09:00 pCO2 56.0 mmHg (35.0-45.0) H* 05/19/17 09:00 pO2 58.0 mmHg (80.0-100.0) L 05/19/17 09:00 HCO3 25.4 mEq/L (20.0-26.0) 05/19/17 09:00 Base Excess 0.9 mEq/L (-3.0-3.0) 05/19/17 09:00 O2 Saturation 87.0 % (92.0-100.0) L 05/19/17 09:00 Feliciano Test YES 05/19/17 09:00 Vent Rate NA 05/19/17 09:00 Inspired O2 32 05/19/17 09:00 Tidal Volume NA 05/19/17 09:00 PEEP NA 05/19/17 09:00 Pressure (ins/psv/peep) NA 05/19/17 09:00 Critical Value SH 05/19/17 09:00 Sodium 137 mEq/L (136-145) 05/19/17 04:50 Potassium 4.4 mEq/L (3.5-5.1) 05/19/17 04:50 Chloride 103 mEq/L (98-107) 05/19/17 04:50 Carbon Dioxide 25.0 mEq/L (21.0-31.0) 05/19/17 04:50 Anion Gap 13.4 (7.0-16.0) 05/19/17 04:50 BUN 88 mg/dL (7-25) H* 05/19/17 04:50 Creatinine 3.3 mg/dL (0.7-1.3) H 05/19/17 04:50 Est GFR ( Amer) TNP 05/19/17 04:50 Est GFR (Non-Af Amer) TNP 05/19/17 04:50 BUN/Creatinine Ratio 26.7 05/19/17 04:50 Glucose 265 mg/dL (70-105) H 05/19/17 04:50 POC Glucose 183 MG/DL (70 - 105) H 05/19/17 09:47 Hemoglobin A1c % 6.1 % (4.0-6.0) H 05/15/17 06:30 Plasma/Ser Osmolality 301 mOsmol/kg (280-301) 05/14/17 18:20 Whole Bld Lactic Acid 1.58 mmol/L (0.60-1.99) 05/13/17 17:42 Uric Acid 7.7 mg/dL (4.4-7.6) H 05/15/17 06:30 Calcium 8.8 mg/dL (8.6-10.3) 05/19/17 04:50 Phosphorus 5.4 mg/dL (2.5-5.0) H 05/15/17 06:30 Magnesium 2.2 mg/dL (1.9-2.7) 05/15/17 06:30 Total Bilirubin 0.3 mg/dL (0.3-1.0) 05/19/17 04:50 Direct Bilirubin 0.09 mg/dL (0.0-0.2) 05/19/17 04:50 AST 24 U/L (13-39) 05/19/17 04:50 ALT 6 U/L (7-52) L 05/19/17 04:50 Alkaline Phosphatase 81 U/L (34-104) 05/19/17 04:50 Ammonia 65 umol/L (16-53) H 05/19/17 04:50 Creatine Kinase 35 U/L (30-223) 05/16/17 23:06 Troponin I 0.02 ng/mL (0.01-0.05) 05/16/17 23:06 B-Natriuretic Peptide 1770.0 pg/mL (5.0-100.0) H 05/19/17 04:50 Total Protein 7.1 gm/dL (6.0-8.3) 05/19/17 04:50 Albumin 3.2 gm/dL (4.2-5.5) L 05/19/17 04:50 Globulin 3.9 gm/dL 05/19/17 04:50 Albumin/Globulin Ratio 0.8 (1.0-1.8) L 05/19/17 04:50 Prealbumin 14 mg/dL (9-32) 05/18/17 07:33 TSH 2.74 uIU/ml (0.34-5.60) 05/15/17 06:30 Urine Source CATH 05/13/17 19:50 Urine Color YELLOW 05/13/17 19:50 Urine Clarity CLOUDY (CLEAR) 05/13/17 19:50 Urine pH 6.0 05/13/17 19:50 Ur Specific [place] 1.015 (1.005-1.030) 05/13/17 19:50 Urine Protein 100 mg/dL (NEGATIVE) H 05/13/17 19:50 Urine Glucose (UA) NEGATIVE mg/dL (NEGATIVE) 05/13/17 19:50 Urine Ketones NEGATIVE mg/dL (NEGATIVE) 05/13/17 19:50 Urine Blood LARGE (NEGATIVE) H 05/13/17 19:50 Urine Nitrate NEGATIVE (NEGATIVE) 05/13/17 19:50 Urine Bilirubin NEGATIVE (NEGATIVE) 05/13/17 19:50 Urine Urobilinogen 0.2 E.U./dL (0.2 - 1.0) 05/13/17 19:50 Ur Leukocyte Esterase LARGE (NEGATIVE) H 05/13/17 19:50 Urine RBC 50-100 /hpf (0-5) H 05/13/17 19:50 Urine WBC >100 /hpf (0-5) H 05/13/17 19:50 Ur Epithelial Cells NONE SEEN /lpf (FEW) 05/13/17 19:50 Urine Bacteria NONE SEEN /hpf (NONE SEEN) 05/13/17 19:50 Ur Random Sodium 30 mmol/L 05/14/17 18:00 Urine Creatinine 36.4 mg/dl (Not Estab.) 05/14/17 18:00 Urine Microalbumin 363.5 ug/mL (Not Estab.) 05/14/17 18:00 Microalb/Creat Ratio 998.6 mg/g creat (0.0-30.0) H 05/14/17 18:00 Random Vancomycin 19.1 ug/mL (5.0-40.0) 05/19/17 04:50 Blood Type B POSITIVE 05/13/17 20:36 Antibody Screen NEGATIVE 05/13/17 20:36 - Physical Exam Vitals and I&O: Vital Signs Temp 98.2 F 05/19/17 04:00 Pulse 125 05/19/17 13:07 Resp 28 05/19/17 11:26 BP 168/99 05/19/17 13:06 Pulse Ox 93 05/19/17 11:26 Intake & Output 05/18/17 05/19/17 05/19/17 18:59 06:59 18:59 Intake Total 1790 1020 200 Output Total 350 325 Balance 1440 695 200 Weight (lbs) 62.823 kg 62.505 kg Intake: Intake, IV Amount 450 100 200 Albumin 25% 12.5gm/50mL 50 100 12.5 gm In 50 ml @ 50 mls /hr IV TID [facility] Rx#: [id number] Azithromycin 250 mg In 250 Sodium Chloride 0.9% 250 ml @ 250 mls/hr IV Q24HR [facility] Rx#:[id number] Doxycycline Hyclate 100 100 mg In Dextrose 5% 100 ml @ 100 mls/hr IV Q12H [facility] Rx#:[id number] Piperacillin Sodium/ 100 Tazobact 2.25 gm In Sodium Chloride 0.9% 50 ml @ 100 mls/hr IV Q8HR [facility] Rx#:[id number] Piperacillin Sodium/ 50 Tazobact 3.375 gm In Sodium Chloride 0.9% 50 ml @ 100 mls/hr IV Q8HR [facility] Rx#:[id number] Vancomycin HCl 500 mg In 100 Sodium Chloride 0.9% 100 ml @ 100 mls/hr IV 1200 [facility] Rx#:[id number] Oral 0 Tube Feeding 540 720 Albumin 50 Other 800 150 Output: Urine 350 325 Other: # Bowel Movements 1 2 Stool Characteristics Liquid Liquid Brown Brown Active Medications: Current Medications Acetaminophen (Tylenol) 650 mg PO Q4HR PRN PRN Reason: Pain Or Fever above 101 Stop: 07/14/17 15:15 Last Admin: 05/17/17 11:11 Dose: 650 mg Atorvastatin Calcium (Lipitor) 10 mg GT HS YESSICA PRN Reason: Protocol Stop: 07/14/17 20:59 Last Admin: 05/18/17 21:01 Dose: 10 mg Budesonide (Pulmicort) 0.5 mg HHN BIDRT YESSICA Stop: 07/17/17 18:59 Last Admin: 05/19/17 07:26 Dose: 0.5 mg Carbidopa/Levodopa (Sinemet 25mg-100 Mg) 1 tab PO TID [facility] Stop: 07/14/17 08:59 Last Admin: 05/19/17 13:08 Dose: 1 tab Diltiazem HCl (Cardizem) 5 mg IVP Q6HR PRN PRN Reason: FOR HR >120/MIN Stop: 05/26/17 03:02 Last Admin: 05/19/17 13:07 Dose: 5 mg Diltiazem HCl (Cardizem) 60 mg GT Q6HR [facility] Stop: 07/18/17 17:59 Furosemide (Lasix) 40 mg IVP DAILY [facility] Stop: 07/18/17 08:59 Last Admin: 05/19/17 09:25 Dose: 40 mg Heparin Sodium (Porcine) (Heparin) 5,000 units SUBQ Q8H [facility] Stop: 07/14/17 14:59 Last Admin: 05/19/17 09:30 Dose: Not Given Piperacillin Sod/Tazobactam (Sod 2.25 gm/ Sodium Chloride) 50 mls @ 100 mls/hr IV Q8HR [facility] Stop: 07/17/17 20:59 Last Admin: 05/19/17 12:54 Dose: 100 mls/hr Albumin Human (Albutein 25%) 12.5 gm in 50 mls @ 50 mls/hr IV TID [facility] Stop: 05/21/17 09:59 Last Admin: 05/19/17 13:15 Dose: 50 mls/hr Doxycycline Hyclate 100 mg/ (Dextrose) 100 mls @ 100 mls/hr IV Q12H [facility] Stop: 07/17/17 21:59 Last Infusion: 05/19/17 10:40 Dose: Infused Insulin Aspart (Novolog Insulin Sliding Scale) 0 units SUBQ Q6HR YESSICA PRN Reason: Protocol Stop: 07/14/17 00:00 Last Admin: 05/19/17 06:27 Dose: 3 units Insulin Detemir (Levemir Insulin) 20 units SUBQ DAILY [facility] PRN Reason: Protocol Stop: 07/18/17 08:59 Last Admin: 05/19/17 09:47 Dose: 20 units Ipratropium [place] (Atrovent Neb 0.5mg/2.5ml) 0.5 mg HHN Q4HRT [facility] Stop: 07/17/17 14:59 Last Admin: 05/19/17 11:22 Dose: 0.5 mg Isosorbide Dinitrate (Isordil) 10 mg GT TID YESSCIA Stop: 07/14/17 08:59 Last Admin: 05/19/17 13:06 Dose: 10 mg Lactobacillus Rhamnosus (Culturelle) 1 each PO DAILY YESSICA Stop: 07/17/17 08:59 Last Admin: 05/19/17 09:24 Dose: 1 each Lactulose (Cephulac) 20 gm PO TID YESSICA Stop: 07/14/17 08:59 Last Admin: 05/19/17 13:08 Dose: 20 gm Levetiracetam (Keppra) 250 mg NG BID [facility] Stop: 07/14/17 08:59 Last Admin: 05/18/17 16:55 Dose: 250 mg Metoprolol Tartrate (Lopressor) 50 mg GT Q8H YESSICA Stop: 07/18/17 08:59 Last Admin: 05/19/17 09:45 Dose: 50 mg Miscellaneous (Vte Chemical Prophylaxis Screen/ Admission) 1 ea MC PRN PRN PRN Reason: PROTOCOL Stop: 07/14/17 09:25 Miscellaneous (Clinical Monitoring) 1 ea MC DAILY PRN PRN Reason: RENAL Stop: 07/15/17 12:32 Miscellaneous (Probiotic Screen) 1 ea PRN PRN PRN Reason: PROTOCOL Stop: 07/16/17 09:33 Morphine Sulfate (Morphine) 2 mg IVP Q3H PRN PRN Reason: PAIN Stop: 07/13/17 19:46 Last Admin: 05/19/17 12:55 Dose: 2 mg Mupirocin (Bactroban Oint) 1 appl TP BID [facility] Stop: 07/14/17 16:59 Last Admin: 05/19/17 09:24 Dose: 1 appl Pantoprazole Sodium (Protonix) 40 mg GT DAILY [facility] Stop: 07/14/17 08:59 Last Admin: 05/19/17 09:24 Dose: 40 mg Rifaximin (Xifaxan) 550 mg GT BID [facility] Stop: 07/14/17 08:59 Last Admin: 05/19/17 09:24 Dose: 550 mg General: Alert, Moderate distress, no No acute distress (rhonchi, exp. wheeze, tight exp) HEENT: Atraumatic, Mucous membr. moist/pink Neck: Supple, +2 carotid pulse wo bruit Cardiovascular: Regular rate, Normal S1, Normal S2, Other (afib ) Lungs: Other (few rhonchi, mild congestion, expiratory and inspiratory wheezes, tight breathing) Abdomen: Bowel sounds, Soft Extremities: no Edema Neurological: Sensation intact Skin: no Rash Psych/Mental Status: Mood NL Assessment/Plan - Problem List Patient Problems: All Active Problems COUGH AND CONGESTION (Acute) - Assessment Assessment: NICK on CKD A LOC secondary to metabolic encephalopathy/medications Dehydration Essential hypertension with CKD COPD Chronic atrial fibrillation Status post CVA Aspiration pneumonia/dysphagia status post PEG Type 2 diabetes mellitus with CKD Acute Decompensated CHF - Plan Plan: Lab - Result Diagrams 05/15/17 06:30 05/15/17 06:30 Current Medications Acetaminophen (Tylenol) 650 mg PO Q4HR PRN PRN Reason: Pain Or Fever above 101 Stop: 07/14/17 15:15 Last Admin: 05/15/17 16:21 Dose: 650 mg Albuterol Sulfate (Albuterol 2.5mg/3ml Neb Ud) 2.5 mg HHN Q6HRT YESSICA Stop: 07/14/17 00:59 Last Admin: 05/15/17 16:05 Dose: 2.5 mg Atorvastatin Calcium (Lipitor) 10 mg GT HS YESSICA PRN Reason: Protocol Stop: 07/14/17 20:59 Carbidopa/Levodopa (Sinemet 25mg-100 Mg) 1 tab PO TID YESSICA Stop: 07/14/17 08:59 Last Admin: 05/15/17 14:02 Dose: 1 tab Heparin Sodium (Porcine) (Heparin) 5,000 units SUBQ Q8H YESSICA Stop: 07/14/17 14:59 Last Admin: 05/15/17 16:24 Dose: 5,000 units Sodium Chloride (Nacl 0.9%) 1,000 mls @ 60 mls/hr IV .[id number] YESSICA Stop: 07/13/17 06:40 Last Admin: 05/14/17 17:16 Dose: 60 mls/hr Azithromycin 250 mg/ Sodium (Chloride) 250 mls @ 250 mls/hr IV Q24HR YESSICA Stop: 05/20/17 08:59 Piperacillin Sod/Tazobactam (Sod 3.375 gm/ Sodium Chloride) 50 mls @ 100 mls/ hr IV Q8HR [facility] Stop: 07/14/17 15:14 Last Admin: 05/15/17 15:57 Dose: 100 mls/hr Insulin Aspart (Novolog Insulin Sliding Scale) 0 units SUBQ Q6HR YESSICA PRN Reason: Protocol Stop: 07/14/17 00:00 Last Admin: 05/15/17 17:09 Dose: Not Given Insulin Detemir (Levemir Insulin) 14 units SUBQ DAILY [facility] PRN Reason: Protocol Stop: 07/15/17 08:59 Isosorbide Dinitrate (Isordil) 10 mg GT TID [facility] Stop: 07/14/17 08:59 Last Admin: 05/15/17 14:02 Dose: 10 mg Lactulose (Cephulac) 20 gm PO TID [facility] Stop: 07/14/17 08:59 Last Admin: 05/15/17 14:02 Dose: 20 gm Levetiracetam (Keppra) 250 mg NG BID [facility] Stop: 07/14/17 08:59 Last Admin: 05/15/17 16:23 Dose: 250 mg Metoprolol Tartrate (Lopressor) 37.5 mg GT BID [facility] Stop: 07/14/17 00:14 Last Admin: 05/15/17 16:22 Dose: 37.5 mg Miscellaneous (Vte Chemical Prophylaxis Screen/ Admission) 1 ea PRN PRN PRN Reason: PROTOCOL Stop: 07/14/17 09:25 Morphine Sulfate (Morphine) 2 mg IVP Q3H PRN PRN Reason: PAIN Stop: 07/13/17 19:46 Last Admin: 05/14/17 21:16 Dose: 2 mg Mupirocin (Bactroban Oint) 1 appl TP BID [facility] Stop: 07/14/17 16:59 Last Admin: 05/15/17 16:24 Dose: 1 appl Pantoprazole Sodium (Protonix) 40 mg GT DAILY [facility] Stop: 07/14/17 08:59 Last Admin: 05/15/17 08:36 Dose: 40 mg Rifaximin (Xifaxan) 550 mg GT BID [facility] Stop: 07/14/17 08:59 Last Admin: 05/15/17 16:23 Dose: 550 mg Kidney function worse with a BUN up to 83 and creatinine of 3.3 Sodium improved to 137 White count stable at 11.3, on Zosyn Chest x-ray suggestive of right effusion & CHF, and elevated BNP of 1770, will discontinue IV fluids and continue feedings Reviewed his meds Follow-up electrolytes start Maintenance Lasix w/ albumin infusion to improve intravascular volume Decrease nephro to 40 ml/hr Lab - Result Diagrams 05/19/17 04:50 05/19/17 04:50 Nutritional Asmnt/Malnutr-PDOC - Dietary Evaluation Malnutrition Findings (Please click <Entered> for more info): Nutritional Asmnt/Malnutrition Start: 05/15/17 13: 56 Text: Status: Complete Freq: Document 05/15/17 13:56 GSUN (Rec: 05/15/17 14:18 GSUN [id number]) Nutritional Asmnt/Malnutrition Patient General Information Nutritional Screening High Risk Screening Diagnosis PNA, NICK, icnreasing renal failure, CVA, CHF, DM Pertinent Medical Hx/Surgical Hx CVA, dementia, afib, CAD, HTN, dyslipidemia, epilepsy, GERD, aspiration PNA, DM, CKD, dehydration, C. diff, anemia D Subjective Information 86 year old male from SNF. Pt greeted RD. Pt is overall thin , moderate to severe wasting to chest, clavicles, extremities. Observed Glytrol running at 60ml/hr x20hrs during visit. Unable to obtain CBW due to bedscale not calibrated. Discussed with YVETTE Farooq regarding tube feeding recommendations. Current Diet Order/ Nutrition Support Glytrol at 60ml/hr x 20hrs, providing 1200kcal 54g protein Pertinent Medications Lipitor, Novolog, Levemir, Cephulac, Morphine, Protonix, Nacl 0.9% Pertinent Labs 05/13: potassium 5.3H, BUN 80H, creatinine 2.4H, glucose 103 05/15: potassium WNL, BUN 70H, creatinine 2.4H, glucose 239H, A1c 6.1H, phosphorus 5.4H Nutritional Hx/Data Height 1.68 m Height (Calculated Centimeters) 167.6 Current Weight (lbs) 65.771 kg Weight (Calculated Kilograms) 65.8 Weight (Calculated Grams) 10577.9 Milner Body Weight 142 Weight Status Approriate GI Symptoms Difficult in: Swallowing Cultural/Ethnic/Scientologist Belief [facility]: Glucerna 1.2 at 85ml/hr x 20hrs, providing 2040kcal, promote weight gain. Skin Integrity/Comment: Gee 12. Skin intact. Estimated Nutritional Goals Calories/Kcals/Kg CBW 145lb/65.9kg Kcals Calculated 1976-7kcal (30-35kcal/kg) Protein Calculated 46-92g (0.7-1.4g/kg, renal vs moderate to severe wasting) Fluid: ml Per MD (renal) Nutritional Problem 2. Problem Problem Impaired nutrient utilization related to Etiology NICK, hx CKD aeb Signs/Symptoms: "increasing renal failure," potaasum 5.3H on adm, BUN 70H, tipple worker 2.4H, phosphorus 5.4H 1. Problem Problem Inadequate intake from enteral nutrition infusion related to Etiology estimated nutritional needs aeb Signs/Symptoms: providing to meet 61% lower end kcal needs Intervention/Recommendation Comments 1. Recommend Novasource Renal at 50ml/hr x 20hrs, providing 2000kcal and 91g protein. Current order Glytrol at 60ml/ hr x 20hrs is only providing 1200kcal, pt recieves 2040kcal at [facility]. Expected Outcomes/Goals Expected Outcomes/Goals 1. Pt to meet at least 100% of estimated nutritional needs on tube feeding with tolerance .
[2017-05-19] MEDS: Diltiazem 30 mg Tab GT SCH (18:01)
--- NOTE | 2017-05-19 20:25 | General Progress Note ---
Subjective - Review of Systems Service Date: 05/19/17 Subjective: Patient seen and examined in ICU patient was awake breathing seems stable aferile Objective - Results Result Diagrams: 05/19/17 04:50 05/19/17 04:50 Recent Labs: Laboratory Last Values WBC 11.3 Th/cmm (4.8-10.8) H 05/19/17 04:50 RBC 2.77 Mil/cmm (3.80-5.80) L 05/19/17 04:50 Hgb 7.9 gm/dL (12.6-17.4) L* 05/19/17 04:50 Hct 23.7 % (39.0-49.0) L* 05/19/17 04:50 MCV 85.6 fl (80-99) 05/19/17 04:50 MCH 28.4 pg (27.0-31.0) 05/19/17 04:50 MCHC Differential 33.2 pg (28.0-36.0) 05/19/17 04:50 RDW 15.3 % (11.5-20.0) 05/19/17 04:50 Plt Count 262 Th/cmm (150-400) 05/19/17 04:50 MPV 8.5 fl 05/19/17 04:50 Neutrophils % 75.7 % (40.0-80.0) 05/18/17 07:33 Band Neutrophils % 1 % (0-10) 05/17/17 05:02 Lymphocytes % 13.2 % (20.0-50.0) L 05/18/17 07:33 Monocytes % 8.3 % (2.0-10.0) 05/18/17 07:33 Eosinophils % 2.0 % (0.0-5.0) 05/18/17 07:33 Basophils % 0.8 % (0.0-2.0) 05/18/17 07:33 Neutrophils (Manual) 76 % (40-80) 05/19/17 04:50 Lymphocytes 15 % (20-50) L 05/19/17 04:50 Monocytes 5 % (2-10) 05/19/17 04:50 Eosinophils 4 % (0-5) 05/19/17 04:50 Platelet Estimate ADEQUATE (NORMAL) 05/19/17 04:50 Eos Smear Source URINE 05/14/17 18:00 Eos Smear Total Cells FEW EOSINOPHILS SEEN (NONE SEEN) 05/14/17 18:00 PT 11.9 SECONDS (9.5-11.5) H 05/13/17 17:42 INR 1.13 (0.5-1.4) 05/13/17 17:42 PTT (Actin FS) 30.5 SECONDS (26.0-38.0) 05/15/17 12:30 Specimen Source Arterial 05/19/17 09:00 Sample Site Left Radial 05/19/17 09:00 pH 7.31 (7.35-7.45) L 05/19/17 09:00 pCO2 56.0 mmHg (35.0-45.0) H* 05/19/17 09:00 pO2 58.0 mmHg (80.0-100.0) L 05/19/17 09:00 HCO3 25.4 mEq/L (20.0-26.0) 05/19/17 09:00 Base Excess 0.9 mEq/L (-3.0-3.0) 05/19/17 09:00 O2 Saturation 87.0 % (92.0-100.0) L 05/19/17 09:00 Feliciano Test YES 05/19/17 09:00 Vent Rate NA 05/19/17 09:00 Inspired O2 32 05/19/17 09:00 Tidal Volume NA 05/19/17 09:00 PEEP NA 05/19/17 09:00 Pressure (ins/psv/peep) NA 05/19/17 09:00 Critical Value SH 05/19/17 09:00 Sodium 137 mEq/L (136-145) 05/19/17 04:50 Potassium 4.4 mEq/L (3.5-5.1) 05/19/17 04:50 Chloride 103 mEq/L (98-107) 05/19/17 04:50 Carbon Dioxide 25.0 mEq/L (21.0-31.0) 05/19/17 04:50 Anion Gap 13.4 (7.0-16.0) 05/19/17 04:50 BUN 88 mg/dL (7-25) H* 05/19/17 04:50 Creatinine 3.3 mg/dL (0.7-1.3) H 05/19/17 04:50 Est GFR ( Amer) TNP 07/17/17 04:50 Est GFR (Non-Af Amer) TNP 05/19/17 04:50 BUN/Creatinine Ratio 26.7 05/19/17 04:50 Glucose 265 mg/dL (70-105) H 05/19/17 04:50 POC Glucose 183 MG/DL (70 - 105) H 05/19/17 09:47 Hemoglobin A1c % 6.1 % (4.0-6.0) H 05/15/17 06:30 Plasma/Ser Osmolality 301 mOsmol/kg (280-301) 05/14/17 18:20 Whole Bld Lactic Acid 1.58 mmol/L (0.60-1.99) 05/13/17 17:42 Uric Acid 7.7 mg/dL (4.4-7.6) H 05/15/17 06:30 Calcium 8.8 mg/dL (8.6-10.3) 05/19/17 04:50 Phosphorus 5.4 mg/dL (2.5-5.0) H 05/15/17 06:30 Magnesium 2.2 mg/dL (1.9-2.7) 05/15/17 06:30 Total Bilirubin 0.3 mg/dL (0.3-1.0) 05/19/17 04:50 Direct Bilirubin 0.09 mg/dL (0.0-0.2) 05/19/17 04:50 AST 24 U/L (13-39) 05/19/17 04:50 ALT 6 U/L (7-52) L 05/19/17 04:50 Alkaline Phosphatase 81 U/L (34-104) 05/19/17 04:50 Ammonia 65 umol/L (16-53) H 05/19/17 04:50 Creatine Kinase 35 U/L (30-223) 05/16/17 23:06 Troponin I 0.02 ng/mL (0.01-0.05) 05/16/17 23:06 B-Natriuretic Peptide 1770.0 pg/mL (5.0-100.0) H 05/19/17 04:50 Total Protein 7.1 gm/dL (6.0-8.3) 05/19/17 04:50 Albumin 3.2 gm/dL (4.2-5.5) L 05/19/17 04:50 Globulin 3.9 gm/dL 05/19/17 04:50 Albumin/Globulin Ratio 0.8 (1.0-1.8) L 05/19/17 04:50 Prealbumin 14 mg/dL (9-32) 05/18/17 07:33 TSH 2.74 uIU/ml (0.34-5.60) 05/15/17 06:30 Urine Source CATH 05/13/17 19:50 Urine Color YELLOW 05/13/17 19:50 Urine Clarity CLOUDY (CLEAR) 05/13/17 19:50 Urine pH 6.0 05/13/17 19:50 Ur Specific [place] 1.015 (1.005-1.030) 05/13/17 19:50 Urine Protein 100 mg/dL (NEGATIVE) H 05/13/17 19:50 Urine Glucose (UA) NEGATIVE mg/dL (NEGATIVE) 05/13/17 19:50 Urine Ketones NEGATIVE mg/dL (NEGATIVE) 05/13/17 19:50 Urine Blood LARGE (NEGATIVE) H 05/13/17 19:50 Urine Nitrate NEGATIVE (NEGATIVE) 05/13/17 19:50 Urine Bilirubin NEGATIVE (NEGATIVE) 05/13/17 19:50 Urine Urobilinogen 0.2 E.U./dL (0.2 - 1.0) 05/13/17 19:50 Ur Leukocyte Esterase LARGE (NEGATIVE) H 05/13/17 19:50 Urine RBC 50-100 /hpf (0-5) H 05/13/17 19:50 Urine WBC >100 /hpf (0-5) H 05/13/17 19:50 Ur Epithelial Cells NONE SEEN /lpf (FEW) 05/13/17 19:50 Urine Bacteria NONE SEEN /hpf (NONE SEEN) 05/13/17 19:50 Ur Random Sodium 30 mmol/L 05/14/17 18:00 Urine Creatinine 36.4 mg/dl (Not Estab.) 05/14/17 18:00 Urine Microalbumin 363.5 ug/mL (Not Estab.) 05/14/17 18:00 Microalb/Creat Ratio 998.6 mg/g creat (0.0-30.0) H 05/14/17 18:00 Random Vancomycin 19.1 ug/mL (5.0-40.0) 05/19/17 04:50 Blood Type B POSITIVE 05/13/17 20:36 Antibody Screen NEGATIVE 05/13/17 20:36 - Physical Exam Vitals and I&O: Vital Signs Temp 98.9 F 05/19/17 20:00 Pulse 67 05/19/17 20:00 Resp 20 05/19/17 20:00 BP 130/64 05/19/17 20:00 Pulse Ox 95 05/19/17 20:00 Intake & Output 05/19/17 05/19/17 05/20/17 06:59 18:59 06:59 Intake Total 1020 1080 Output Total 325 200 Balance 695 880 Weight (lbs) 62.505 kg 65 kg Intake: Intake, IV Amount 100 300 Albumin 25% 12.5gm/50mL 150 12.5 gm In 50 ml @ 50 mls /hr IV TID [facility] Rx#: [id number] Doxycycline Hyclate 100 100 mg In Dextrose 5% 100 ml @ 100 mls/hr IV Q12H [facility] Rx#:[id number] Piperacillin Sodium/ 100 50 Tazobact 2.25 gm In Sodium Chloride 0.9% 50 ml @ 100 mls/hr IV Q8HR [facility] Rx#:[id number] Oral 0 Tube Feeding 720 480 Albumin 50 Other 150 300 Output: Urine 325 200 Other: # Bowel Movements 2 2 Stool Characteristics Liquid Liquid Brown Brown Active Medications: Current Medications Acetaminophen (Tylenol) 650 mg PO Q4HR PRN PRN Reason: Pain Or Fever above 101 Stop: 07/14/17 15:15 Last Admin: 05/17/17 11:11 Dose: 650 mg Atorvastatin Calcium (Lipitor) 10 mg GT HS YESSICA PRN Reason: Protocol Stop: 07/14/17 20:59 Last Admin: 05/18/17 21:01 Dose: 10 mg Budesonide (Pulmicort) 0.5 mg HHN BIDRT YESSICA Stop: 07/17/17 18:59 Last Admin: 05/19/17 19:56 Dose: 0.5 mg Carbidopa/Levodopa (Sinemet 25mg-100 Mg) 1 tab PO TID YESSICA Stop: 07/14/17 08:59 Last Admin: 05/19/17 13:08 Dose: 1 tab Diltiazem HCl (Cardizem) 5 mg IVP Q6HR PRN PRN Reason: FOR HR >120/MIN Stop: 05/26/17 03:02 Last Admin: 05/19/17 13:07 Dose: 5 mg Diltiazem HCl (Cardizem) 60 mg GT Q6HR [facility] Stop: 07/18/17 17:59 Last Admin: 05/19/17 18:01 Dose: 60 mg Furosemide (Lasix) 40 mg IVP DAILY [facility] Stop: 07/18/17 08:59 Last Admin: 05/19/17 09:25 Dose: 40 mg Heparin Sodium (Porcine) (Heparin) 5,000 units SUBQ Q8H YESSICA Stop: 07/14/17 14:59 Last Admin: 05/19/17 15:10 Dose: 5,000 units Piperacillin Sod/Tazobactam (Sod 2.25 gm/ Sodium Chloride) 50 mls @ 100 mls/hr IV Q8HR [facility] Stop: 07/17/17 20:59 Last Infusion: 05/19/17 13:25 Dose: Infused Albumin Human (Albutein 25%) 12.5 gm in 50 mls @ 50 mls/hr IV TID [facility] Stop: 05/21/17 09:59 Last Infusion: 05/19/17 14:15 Dose: Infused Doxycycline Hyclate 100 mg/ (Dextrose) 100 mls @ 100 mls/hr IV Q12H [facility] Stop: 07/17/17 21:59 Last Infusion: 05/19/17 10:40 Dose: Infused Insulin Aspart (Novolog Insulin Sliding Scale) 0 units SUBQ Q6HR [facility] PRN Reason: Protocol Stop: 07/14/17 00:00 Last Admin: 05/19/17 17:59 Dose: Not Given Insulin Detemir (Levemir Insulin) 20 units SUBQ DAILY [facility] PRN Reason: Protocol Stop: 07/18/17 08:59 Last Admin: 05/19/17 09:47 Dose: 20 units Ipratropium [place] (Atrovent Neb 0.5mg/2.5ml) 0.5 mg HHN Q4HRT [facility] Stop: 07/17/17 14:59 Last Admin: 05/19/17 19:56 Dose: 0.5 mg Isosorbide Dinitrate (Isordil) 10 mg GT TID [facility] Stop: 07/14/17 08:59 Last Admin: 05/19/17 13:06 Dose: 10 mg Lactobacillus Rhamnosus (Culturelle) 1 each PO DAILY [facility] Stop: 07/17/17 08:59 Last Admin: 05/19/17 09:24 Dose: 1 each Lactulose (Cephulac) 20 gm PO TID YESSICA Stop: 07/14/17 08:59 Last Admin: 05/19/17 13:08 Dose: 20 gm Levetiracetam (Keppra) 250 mg NG BID YESSICA Stop: 07/14/17 08:59 Last Admin: 05/19/17 17:53 Dose: 250 mg Metolazone (Zaroxolyn) 5 mg PO DAILY [facility] Stop: 07/18/17 13:59 Last Admin: 05/19/17 14:10 Dose: 5 mg Metoprolol Tartrate (Lopressor) 50 mg GT Q8H [facility] Stop: 07/18/17 08:59 Last Admin: 05/19/17 17:52 Dose: 50 mg Miscellaneous (Vte Chemical Prophylaxis Screen/ Admission) 1 [facility] PRN PRN PRN Reason: PROTOCOL Stop: 07/14/17 09:25 Miscellaneous (Clinical Monitoring) 1 ea [facility] DAILY PRN PRN Reason: RENAL Stop: 07/15/17 12:32 Miscellaneous (Probiotic Screen) 1 [facility] PRN PRN PRN Reason: PROTOCOL Stop: 07/16/17 09:33 Morphine Sulfate (Morphine) 2 mg IVP Q3H PRN PRN Reason: PAIN Stop: 07/13/17 19:46 Last Admin: 05/19/17 19:00 Dose: 2 mg Mupirocin (Bactroban Oint) 1 appl TP BID [facility] Stop: 07/14/17 16:59 Last Admin: 05/19/17 17:51 Dose: 1 appl Pantoprazole Sodium (Protonix) 40 mg GT DAILY [facility] Stop: 07/14/17 08:59 Last Admin: 05/19/17 09:24 Dose: 40 mg Rifaximin (Xifaxan) 550 mg GT BID [facility] Stop: 07/14/17 08:59 Last Admin: 05/19/17 17:51 Dose: 550 mg General: Alert, No acute distress, Moderate distress HEENT: Atraumatic, Mucous membr. 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 HTN renal disease Seizure disorder - Plan Plan: Still noted to persistent chest congestion Daily lasix started ( elevated BNP) Pulmonary consulted Zosyn and DOXY per ID rec Sputum culture s/o Gm Negative (prel) Basal bolus insulin and accucheck Heparin for Afib Metoprolol increased to 50 BID Cardizem 60 QID GT added per cardiology rec Tube feeding Asp precaution Seizure meds Metoprolol Monitor vitals HHN and oxygen Supportive care ID Pulmonary Nephrology and Cardiology on board Case discussed with Nephrology Follow up labs and chest xray in am Plan of care discussed with nursing staff Nutritional Asmnt/Malnutr-PDOC - Dietary Evaluation Malnutrition Findings (Please click <Entered> for more info): Nutritional Asmnt/Malnutrition Start: 05/15/17 13: 56 Text: Status: Complete Freq: Document 05/15/17 13:56 GSUN (Rec: 05/15/17 14:18 GSUN [id number]) Nutritional Asmnt/Malnutrition Patient General Information Nutritional Screening High Risk Screening Diagnosis PNA, NICK, icnreasing renal failure, CVA, CHF, DM Pertinent Medical Hx/Surgical Hx CVA, dementia, afib, CAD, HTN, dyslipidemia, epilepsy, GERD, aspiration PNA, DM, CKD, dehydration, C. diff, anemia D Subjective Information 86 year old male from SNF. Pt greeted RD. Pt is overall thin , moderate to severe wasting to chest, clavicles, extremities. Observed Glytrol running at 60ml/hr x20hrs during visit. Unable to obtain CBW due to bedscale not calibrated. Discussed with YVETTE Farooq regarding tube feeding recommendations. Current Diet Order/ Nutrition Support Glytrol at 60ml/hr x 20hrs, providing 1200kcal 54g protein Pertinent Medications Lipitor, Novolog, Levemir, Cephulac, Morphine, Protonix, Nacl 0.9% Pertinent Labs 05/13: potassium 5.3H, BUN 80H, creatinine 2.4H, glucose 103 7/13: potassium WNL, BUN 70H, creatinine 2.4H, glucose 239H, A1c 6.1H, phosphorus 5.4H Nutritional Hx/Data Height 1.68 m Height (Calculated Centimeters) 167.6 Current Weight (lbs) 65.771 kg Weight (Calculated Kilograms) 65.8 Weight (Calculated Grams) 96494.9 [place] Body Weight 142 Weight Status Approriate GI Symptoms Difficult in: Swallowing Cultural/Ethnic/Scientology Belief [facility]: Glucerna 1.2 at 85ml/hr x 20hrs, providing 2040kcal, promote weight gain. Skin Integrity/Comment: Gee 12. Skin intact. Estimated Nutritional Goals Calories/Kcals/Kg CBW 145lb/65.9kg Kcals Calculated 1976-2307kcal (30-35kcal/kg) Protein Calculated 46-92g (0.7-1.4g/kg, renal vs moderate to severe wasting) Fluid: ml Per MD (renal) Nutritional Problem 2. Problem Problem Impaired nutrient utilization related to Etiology NICK, hx CKD aeb Signs/Symptoms: "increasing renal failure," potaasum 5.3H on adm, BUN 70H, floor and wall applier liquid 2.4H, phosphorus 5.4H 1. Problem Problem Inadequate intake from enteral nutrition infusion related to Etiology estimated nutritional needs aeb Signs/Symptoms: providing to meet 61% lower end kcal needs Intervention/Recommendation Comments 1. Recommend Novasource Renal at 50ml/hr x 20hrs, providing 2000kcal and 91g protein. Current order Glytrol at 60ml/ hr x 20hrs is only providing 1200kcal, pt recieves 2040kcal at [facility]. Expected Outcomes/Goals Expected Outcomes/Goals 1. Pt to meet at least 100% of estimated nutritional needs on tube feeding with tolerance .
[2017-05-19] MEDS: Atorvastatin Calcium 10 MG TAB GT SCH (22:01)
[2017-05-20] MEDS: Diltiazem 30 mg Tab GT SCH ×2 (00:02→05:46)
[2017-05-20] MEDS: INSULIN ASPART SLIDING SCALE 100 UNITS/ML UNIT SUBQ SCH ×4 (00:11→18:57)
[2017-05-20] MEDS: Ipratropium Neb 0.5 mg/2.5 mL UD HHN SCH (04:46)
[2017-05-20] MEDS: Piperacillin/Tazobact 2.25 gm in 0.9% NS 50 ML IV SCH ×3 (04:54→21:59)
[2017-05-20 05:13] LABS: HEMATOCRIT 24.9 % (39.0-49.0); HEMOGLOBIN 8.2 gm/dL (12.6-17.4); MEAN CELL VOLUME 86.1 fl (80-99); MEAN CORPUSCULAR HEMOGLOBIN 28.2 pg (27.0-31.0); MEAN CORPUSCULAR HGB CONC 32.7 pg (28.0-36.0); MEAN PLATELET VOLUME 8.8 fl; PLATELET COUNT 239 Th/cmm (150-400); RED CELL DISTRIBUTION WIDTH 15.6 % (11.5-20.0)
[2017-05-20 05:27] LABS: WHITE BLOOD COUNT 14.7 Th/cmm (4.8-10.8)
[2017-05-20 05:38] LABS: ALB/GLOB RATIO 0.9 (1.0-1.8); ALKALINE PHOSPHATASE 62 U/L (34-104); ANION GAP 12.6 (7.0-16.0); BILIRUBIN,TOTAL 0.4 mg/dL (0.3-1.0); BUN/CREATININE RATIO 23.2; CALCIUM SERUM 8.9 mg/dL (8.6-10.3); CARBON DIOXIDE 26.2 mEq/L (21.0-31.0); CHLORIDE 102 mEq/L (98-107); GLUCOSE 123 mg/dL (70-105); POTASSIUM SERUM 4.8 mEq/L (3.5-5.1); SGOT 19 U/L (13-39); SGPT/ALT 4 U/L (7-52); SODIUM SERUM 136 mEq/L (136-145)
[2017-05-20 06:00] LABS: BUN - UREA NITROGEN 95 mg/dL (7-25); CREATININE - SERUM 4.1 mg/dL (0.7-1.3)
[2017-05-20 06:58] LABS: BAND NEUTROPHILE 2 % (0-10); EOSINOPHIL 1 % (0-5); NEUTROPHILS 89 % (40-80); PLATELET ESTIMATE ADEQUATE (NORMAL); TOTAL CELLS COUNTED 100
--- NOTE | 2017-05-20 08:14 | General Progress Note ---
Subjective - Review of Systems Events since last encounter: patient no distress Subjective: pt is sleeping pt is in no acute distress Objective - Results Result Diagrams: 05/20/17 04:50 05/20/17 04:50 Recent Labs: Laboratory Last Values WBC 14.7 Th/cmm (4.8-10.8) H D 05/20/17 04:50 RBC 2.90 Mil/cmm (3.80-5.80) L 05/20/17 04:50 Hgb 8.2 gm/dL (12.6-17.4) L 05/20/17 04:50 Hct 24.9 % (39.0-49.0) L 05/20/17 04:50 MCV 86.1 fl (80-99) 05/20/17 04:50 MCH 28.2 pg (27.0-31.0) 05/20/17 04:50 MCHC Differential 32.7 pg (28.0-36.0) 05/20/17 04:50 RDW 15.6 % (11.5-20.0) 05/20/17 04:50 Plt Count 239 Th/cmm (150-400) 05/20/17 04:50 MPV 8.8 fl 05/20/17 04:50 Neutrophils % 75.7 % (40.0-80.0) 05/18/17 07:33 Band Neutrophils % 2 % (0-10) 05/20/17 04:50 Lymphocytes % 13.2 % (20.0-50.0) L 05/18/17 07:33 Monocytes % 8.3 % (2.0-10.0) 05/18/17 07:33 Eosinophils % 2.0 % (0.0-5.0) 05/18/17 07:33 Basophils % 0.8 % (0.0-2.0) 05/18/17 07:33 Neutrophils (Manual) 89 % (40-80) H 05/20/17 04:50 Lymphocytes 7 % (20-50) L 05/20/17 04:50 Monocytes 1 % (2-10) L 05/20/17 04:50 Eosinophils 1 % (0-5) 05/20/17 04:50 Platelet Estimate ADEQUATE (NORMAL) 05/20/17 04:50 Eos Smear Source URINE 05/14/17 18:00 Eos Smear Total Cells FEW EOSINOPHILS SEEN (NONE SEEN) 05/14/17 18:00 PT 11.9 SECONDS (9.5-11.5) H 05/13/17 17:42 INR 1.13 (0.5-1.4) 05/13/17 17:42 PTT (Actin FS) 30.5 SECONDS (26.0-38.0) 05/15/17 12:30 Specimen Source Arterial 05/19/17 09:00 Sample Site Left Radial 05/19/17 09:00 pH 7.31 (7.35-7.45) L 05/19/17 09:00 pCO2 56.0 mmHg (35.0-45.0) H* 05/19/17 09:00 pO2 58.0 mmHg (80.0-100.0) L 05/19/17 09:00 HCO3 25.4 mEq/L (20.0-26.0) 05/19/17 09:00 Base Excess 0.9 mEq/L (-3.0-3.0) 05/19/17 09:00 O2 Saturation 87.0 % (92.0-100.0) L 05/19/17 09:00 Feliciano Test YES 05/19/17 09:00 Vent Rate NA 05/19/17 09:00 Inspired O2 32 05/19/17 09:00 Tidal Volume NA 05/19/17 09:00 PEEP NA 05/19/17 09:00 Pressure (ins/psv/peep) NA 05/19/17 09:00 Critical Value SH 05/19/17 09:00 Sodium 136 mEq/L (136-145) 05/20/17 04:50 Potassium 4.8 mEq/L (3.5-5.1) 05/20/17 04:50 Chloride 102 mEq/L (98-107) 05/20/17 04:50 Carbon Dioxide 26.2 mEq/L (21.0-31.0) 05/20/17 04:50 Anion Gap 12.6 (7.0-16.0) 05/20/17 04:50 BUN 95 mg/dL (7-25) H* 05/20/17 04:50 Creatinine 4.1 mg/dL (0.7-1.3) H* 05/20/17 04:50 Est GFR ( Amer) TNP 05/20/17 04:50 Est GFR (Non-Af Amer) TNP 05/20/17 04:50 BUN/Creatinine Ratio 23.2 05/20/17 04:50 Glucose 123 mg/dL (70-105) H 05/20/17 04:50 POC Glucose 148 MG/DL (70 - 105) H 05/20/17 05:49 Hemoglobin A1c % 6.1 % (4.0-6.0) H 05/15/17 06:30 Plasma/Ser Osmolality 301 mOsmol/kg (280-301) 05/14/17 18:20 Whole Bld Lactic Acid 1.58 mmol/L (0.60-1.99) 05/13/17 17:42 Uric Acid 7.7 mg/dL (4.4-7.6) H 05/15/17 06:30 Calcium 8.9 mg/dL (8.6-10.3) 05/20/17 04:50 Phosphorus 5.4 mg/dL (2.5-5.0) H 05/15/17 06:30 Magnesium 2.2 mg/dL (1.9-2.7) 05/15/17 06:30 Total Bilirubin 0.4 mg/dL (0.3-1.0) 05/20/17 04:50 Direct Bilirubin 0.09 mg/dL (0.0-0.2) 05/19/17 04:50 AST 19 U/L (13-39) 05/20/17 04:50 ALT 4 U/L (7-52) L 05/20/17 04:50 Alkaline Phosphatase 62 U/L (34-104) 05/20/17 04:50 Ammonia 65 umol/L (16-53) H 05/19/17 04:50 Creatine Kinase 35 U/L (30-223) 05/16/17 23:06 Troponin I 0.02 ng/mL (0.01-0.05) 05/16/17 23:06 B-Natriuretic Peptide 2470.0 pg/mL (5.0-100.0) H 05/20/17 04:50 Total Protein 7.5 gm/dL (6.0-8.3) 05/20/17 04:50 Albumin 3.5 gm/dL (4.2-5.5) L 05/20/17 04:50 Globulin 4.0 gm/dL 05/20/17 04:50 Albumin/Globulin Ratio 0.9 (1.0-1.8) L 05/20/17 04:50 Prealbumin 14 mg/dL (9-32) 05/18/17 07:33 TSH 2.74 uIU/ml (0.34-5.60) 05/15/17 06:30 Urine Source CATH 05/13/17 19:50 Urine Color YELLOW 05/13/17 19:50 Urine Clarity CLOUDY (CLEAR) 05/13/17 19:50 Urine pH 6.0 05/13/17 19:50 Ur Specific [place] 1.015 (1.005-1.030) 05/13/17 19:50 Urine Protein 100 mg/dL (NEGATIVE) H 05/13/17 19:50 Urine Glucose (UA) NEGATIVE mg/dL (NEGATIVE) 05/13/17 19:50 Urine Ketones NEGATIVE mg/dL (NEGATIVE) 05/13/17 19:50 Urine Blood LARGE (NEGATIVE) H 05/13/17 19:50 Urine Nitrate NEGATIVE (NEGATIVE) 05/13/17 19:50 Urine Bilirubin NEGATIVE (NEGATIVE) 05/13/17 19:50 Urine Urobilinogen 0.2 E.U./dL (0.2 - 1.0) 05/13/17 19:50 Ur Leukocyte Esterase LARGE (NEGATIVE) H 05/13/17 19:50 Urine RBC 50-100 /hpf (0-5) H 05/13/17 19:50 Urine WBC >100 /hpf (0-5) H 05/13/17 19:50 Ur Epithelial Cells NONE SEEN /lpf (FEW) 05/13/17 19:50 Urine Bacteria NONE SEEN /hpf (NONE SEEN) 05/13/17 19:50 Ur Random Sodium 30 mmol/L 05/14/17 18:00 Urine Creatinine 36.4 mg/dl (Not Estab.) 05/14/17 18:00 Urine Microalbumin 363.5 ug/mL (Not Estab.) 05/14/17 18:00 Microalb/Creat Ratio 998.6 mg/g creat (0.0-30.0) H 05/14/17 18:00 Random Vancomycin 19.1 ug/mL (5.0-40.0) 05/19/17 04:50 Blood Type B POSITIVE 05/13/17 20:36 Antibody Screen NEGATIVE 05/13/17 20:36 - Physical Exam Vitals and I&O: Vital Signs Temp 97.9 F 05/20/17 04:00 Pulse 86 05/20/17 06:55 Resp 21 05/20/17 06:55 BP 144/72 05/20/17 06:55 Pulse Ox 99 05/20/17 06:55 Intake & Output 05/19/17 05/20/17 05/20/17 18:59 06:59 18:59 Intake Total 1080 1170 Output Total 200 200 Balance 880 970 Weight (lbs) 65 kg 64.552 kg Intake: Intake, IV Amount 300 250 Albumin 25% 12.5gm/50mL 150 50 12.5 gm In 50 ml @ 50 mls /hr IV TID [facility] Rx#: [id number] Doxycycline Hyclate 100 100 100 mg In Dextrose 5% 100 ml @ 100 mls/hr IV Q12H [facility] Rx#:[id number] Piperacillin Sodium/ 50 100 Tazobact 2.25 gm In Sodium Chloride 0.9% 50 ml @ 100 mls/hr IV Q8HR [facility] Rx#:[id number] Tube Feeding 480 720 Other 300 200 Output: Urine 200 200 Other: # Bowel Movements 2 2 Stool Characteristics Liquid Brown Active Medications: Current Medications Acetaminophen (Tylenol) 650 mg PO Q4HR PRN PRN Reason: Pain Or Fever above 101 Stop: 07/14/17 15:15 Last Admin: 05/17/17 11:11 Dose: 650 mg Atorvastatin Calcium (Lipitor) 10 mg GT HS YESSICA PRN Reason: Protocol Stop: 07/14/17 20:59 Last Admin: 05/19/17 22:01 Dose: 10 mg Budesonide (Pulmicort) 0.5 mg HHN BIDRT YESSICA Stop: 07/17/17 18:59 Last Admin: 05/19/17 19:56 Dose: 0.5 mg Carbidopa/Levodopa (Sinemet 25mg-100 Mg) 1 tab PO TID YESSICA Stop: 07/14/17 08:59 Last Admin: 05/19/17 20:54 Dose: 1 tab Diltiazem HCl (Cardizem) 5 mg IVP Q6HR PRN PRN Reason: FOR HR >120/MIN Stop: 05/26/17 03:02 Last Admin: 05/19/17 13:07 Dose: 5 mg Diltiazem HCl (Cardizem) 60 mg GT Q6HR [facility] Stop: 07/18/17 17:59 Last Admin: 05/20/17 05:46 Dose: 60 mg Furosemide (Lasix) 40 mg IVP DAILY YESSICA Stop: 07/18/17 08:59 Last Admin: 05/19/17 09:25 Dose: 40 mg Heparin Sodium (Porcine) (Heparin) 5,000 units SUBQ Q8H YESSICA Stop: 07/14/17 14:59 Last Admin: 05/19/17 23:06 Dose: 5,000 units Piperacillin Sod/Tazobactam (Sod 2.25 gm/ Sodium Chloride) 50 mls @ 100 mls/hr IV Q8HR [facility] Stop: 07/17/17 20:59 Last Infusion: 05/20/17 05:25 Dose: Infused Albumin Human (Albutein 25%) 12.5 gm in 50 mls @ 50 mls/hr IV TID [facility] Stop: 05/21/17 09:59 Last Infusion: 05/19/17 21:55 Dose: Infused Doxycycline Hyclate 100 mg/ (Dextrose) 100 mls @ 100 mls/hr IV Q12H [facility] Stop: 07/17/17 21:59 Last Infusion: 05/19/17 23:00 Dose: Infused Insulin Aspart (Novolog Insulin Sliding Scale) 0 units SUBQ Q6HR [facility] PRN Reason: Protocol Stop: 07/14/17 00:00 Last Admin: 05/20/17 06:33 Dose: Not Given Insulin Detemir (Levemir Insulin) 20 units SUBQ DAILY [facility] PRN Reason: Protocol Stop: 07/18/17 08:59 Last Admin: 05/19/17 09:47 Dose: 20 units Ipratropium [place] (Atrovent Neb 0.5mg/2.5ml) 0.5 mg HHN Q4HRT [facility] Stop: 07/17/17 14:59 Last Admin: 05/20/17 04:46 Dose: 0.5 mg Isosorbide Dinitrate (Isordil) 10 mg GT TID [facility] Stop: 07/14/17 08:59 Last Admin: 05/19/17 20:52 Dose: 10 mg Lactobacillus Rhamnosus (Culturelle) 1 each PO DAILY [facility] Stop: 07/17/17 08:59 Last Admin: 05/19/17 09:24 Dose: 1 each Lactulose (Cephulac) 20 gm PO TID [facility] Stop: 07/14/17 08:59 Last Admin: 05/19/17 20:52 Dose: 20 gm Levetiracetam (Keppra) 250 mg NG BID YESSICA Stop: 07/14/17 08:59 Last Admin: 05/19/17 17:53 Dose: 250 mg Metolazone (Zaroxolyn) 5 mg PO DAILY YESSICA Stop: 07/18/17 13:59 Last Admin: 05/19/17 14:10 Dose: 5 mg Metoprolol Tartrate (Lopressor) 50 mg GT Q8H [facility] Stop: 07/18/17 08:59 Last Admin: 05/20/17 01:19 Dose: 50 mg Miscellaneous (Vte Chemical Prophylaxis Screen/ Admission) 1 [facility] PRN PRN PRN Reason: PROTOCOL Stop: 07/14/17 09:25 Miscellaneous (Clinical Monitoring) 1 ea DAILY PRN PRN Reason: RENAL Stop: 07/15/17 12:32 Miscellaneous (Probiotic Screen) 1 [facility] PRN PRN PRN Reason: PROTOCOL Stop: 07/16/17 09:33 Morphine Sulfate (Morphine) 2 mg IVP Q3H PRN PRN Reason: PAIN Stop: 07/13/17 19:46 Last Admin: 05/19/17 19:00 Dose: 2 mg Mupirocin (Bactroban Oint) 1 appl TP BID [facility] Stop: 07/14/17 16:59 Last Admin: 05/19/17 17:51 Dose: 1 appl Pantoprazole Sodium (Protonix) 40 mg GT DAILY [facility] Stop: 07/14/17 08:59 Last Admin: 05/19/17 09:24 Dose: 40 mg Rifaximin (Xifaxan) 550 mg GT BID [facility] Stop: 07/14/17 08:59 Last Admin: 05/19/17 17:51 Dose: 550 mg General: Alert, No acute distress, Moderate distress HEENT: Atraumatic, Mucous membr. moist/pink Neck: Supple, +2 carotid pulse wo bruit Cardiovascular: Regular rate, Normal S1, Normal S2, Other (afib ) Lungs: Other (bilateral rales noted) Abdomen: Bowel sounds, Soft Extremities: no Edema Neurological: Sensation intact Skin: no Rash Psych/Mental Status: Mood NL Assessment/Plan - Problem List Patient Problems: All Active Problems COUGH AND CONGESTION (Acute) - Assessment Assessment: Current Active Problems Problem Status Onset COUGH AND CONGESTION Acute sob pnumonia r/o sepsis incresing renal failure h/o cva h/o atrail fib dm nick h/o c diff uti anemia - Plan Plan: iv fluids renal consult id consult Nutritional Asmnt/Malnutr-PDOC - Dietary Evaluation Malnutrition Findings (Please click <Entered> for more info): Nutritional Asmnt/Malnutrition Start: 05/15/17 13: 56 Text: Status: Complete Freq: Document 05/15/17 13:56 GSTHALIA (Rec: 05/15/17 14:18 [email or web address] [email or web address]) Nutritional Asmnt/Malnutrition Patient General Information Nutritional Screening High Risk Screening Diagnosis PNA, NICK, icnreasing renal failure, CVA, CHF, DM Pertinent Medical Hx/Surgical Hx CVA, dementia, afib, CAD, HTN, dyslipidemia, epilepsy, GERD, aspiration PNA, DM, CKD, dehydration, C. diff, anemia D Subjective Information 86 year old male from SNF. Pt greeted RD. Pt is overall thin , moderate to severe wasting to chest, clavicles, extremities. Observed Glytrol running at 60ml/hr x20hrs during visit. Unable to obtain CBW due to bedscale not calibrated. Discussed with YVETTE Farooq regarding tube feeding recommendations. Current Diet Order/ Nutrition Support Glytrol at 60ml/hr x 20hrs, providing 1200kcal 54g protein Pertinent Medications Lipitor, Novolog, Levemir, Cephulac, Morphine, Protonix, Nacl 0.9% Pertinent Labs 05/13: potassium 5.3H, BUN 80H, creatinine 2.4H, glucose 103 05/15: potassium WNL, BUN 70H, creatinine 2.4H, glucose 239H, A1c 6.1H, phosphorus 5.4H Nutritional Hx/Data Height 1.68 m Height (Calculated Centimeters) 167.6 Current Weight (lbs) 65.771 kg Weight (Calculated Kilograms) 65.8 Weight (Calculated Grams) 82887.9 [place] Body Weight 142 Weight Status Approriate GI Symptoms Difficult in: Swallowing Cultural/Ethnic/[employer] Belief [facility]: Glucerna 1.2 at 85ml/hr x 20hrs, providing 2040kcal, promote weight gain. Skin Integrity/Comment: Gee 12. Skin intact. Estimated Nutritional Goals Calories/Kcals/Kg CBW 145lb/65.9kg Kcals Calculated 1976-7kcal (30-35kcal/kg) Protein Calculated 46-92g (0.7-1.4g/kg, renal vs moderate to severe wasting) Fluid: ml Per MD (renal) Nutritional Problem 2. 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 Problem Problem Inadequate intake from enteral nutrition infusion related to Etiology estimated nutritional needs aeb Signs/Symptoms: providing to meet 61% lower end kcal needs Intervention/Recommendation Comments 1. Recommend Novasource Renal at 50ml/hr x 20hrs, providing 2000kcal and 91g protein. Current order Glytrol at 60ml/ hr x 20hrs is only providing 1200kcal, pt recieves 2040kcal at [facility]. Expected Outcomes/Goals Expected Outcomes/Goals 1. Pt to meet at least 100% of estimated nutritional needs on tube feeding with tolerance .
[2017-05-20] MEDS: Insulin Detemir 100 units/mL 10mL Vial SUBQ SCH (09:00)
[2017-05-20] MEDS: Albumin 25% 12.5gm/50mL 12.5 GM/50 ML BTL IV SCH ×3 (09:00→21:56)
[2017-05-20] MEDS: Levetiracetam 500 mg/5mL 5mL UDC NG SCH ×2 (09:00→17:00)
[2017-05-20] MEDS: Lactulose 10 Gm/15 mL 30mL UDC PO SCH ×2 (09:00→21:59)
[2017-05-20 10:44] LABS: pH 7.12 (7.35-7.45)
[2017-05-20 10:47] LABS: BE(B) -6.2 mEq/L (-3.0-3.0); HCO3 20.2 mEq/L (20.0-26.0)
[2017-05-20 10:48] LABS: ABG SOURCE Arterial; FIO2 100; MECH RATE 12; MECH VT 500
[2017-05-20 10:49] LABS: CRITICAL VALUES REPORTED BY CS
[2017-05-20] MEDS: Lactobacillus Rhamnosus 10 Billion CFU Capsule PO SCH (11:04)
[2017-05-20] MEDS: Pantoprazole 40 mg/Packet GT SCH (11:06)
--- NOTE | 2017-05-20 11:32 | Diagnostic Imaging Report ---
Portable chest x-ray HISTORY: Increased shortness of breath, endotracheal tube placement Compared with the prior exam of May 19, 2017, an endotracheal tube has been inserted. The tip is approximately 3.0 cm above the matias. There is a very poor inspiration. Decreased right pleural effusion since the prior study. There does appear to be pulmonary vascular redistribution consistent with an element of cardiac decompensation. Slight prominence of the right hilum the may be related to patient rotation. IMPRESSION: 1. Status post endotracheal tube placement as noted above 2. Cardiomegaly with findings suggesting congestive heart failure. 3. Decreased right pleural effusion and hazy infiltrate since the prior exam.
--- NOTE | 2017-05-20 11:46 | General Progress Note ---
Subjective - Review of Systems Service Date: 05/20/17 Subjective: Patient seen and examined in ICU This am patien was coded due to severe bradycardia with ALOC. intubated on Ventilator now. Altered. Difficult to arouse. afebrile. Very high G tube residual. Objective - Results Result Diagrams: 05/20/17 04:50 05/20/17 04:50 Recent Labs: Laboratory Last Values WBC 14.7 Th/cmm (4.8-10.8) H D 05/20/17 04:50 RBC 2.90 Mil/cmm (3.80-5.80) L 05/20/17 04:50 Hgb 8.2 gm/dL (12.6-17.4) L 05/20/17 04:50 Hct 24.9 % (39.0-49.0) L 05/20/17 04:50 MCV 86.1 fl (80-99) 05/20/17 04:50 MCH 28.2 pg (27.0-31.0) 05/20/17 04:50 MCHC Differential 32.7 pg (28.0-36.0) 05/20/17 04:50 RDW 15.6 % (11.5-20.0) 05/20/17 04:50 Plt Count 239 Th/cmm (150-400) 05/20/17 04:50 MPV 8.8 fl 05/20/17 04:50 Neutrophils % 75.7 % (40.0-80.0) 05/18/17 07:33 Band Neutrophils % 2 % (0-10) 05/20/17 04:50 Lymphocytes % 13.2 % (20.0-50.0) L 05/18/17 07:33 Monocytes % 8.3 % (2.0-10.0) 05/18/17 07:33 Eosinophils % 2.0 % (0.0-5.0) 05/18/17 07:33 Basophils % 0.8 % (0.0-2.0) 05/18/17 07:33 Neutrophils (Manual) 89 % (40-80) H 05/20/17 04:50 Lymphocytes 7 % (20-50) L 05/20/17 04:50 Monocytes 1 % (2-10) L 05/20/17 04:50 Eosinophils 1 % (0-5) 05/20/17 04:50 Platelet Estimate ADEQUATE (NORMAL) 05/20/17 04:50 Eos Smear Source URINE 05/14/17 18:00 Eos Smear Total Cells FEW EOSINOPHILS SEEN (NONE SEEN) 05/14/17 18:00 PT 11.9 SECONDS (9.5-11.5) H 05/13/17 17:42 INR 1.13 (0.5-1.4) 05/13/17 17:42 PTT (Actin FS) 30.5 SECONDS (26.0-38.0) 05/15/17 12:30 Specimen Source Arterial 05/20/17 09:00 Sample Site RB 05/20/17 09:00 pH 7.12 (7.35-7.45) L* 05/20/17 09:00 pCO2 75.0 mmHg (35.0-45.0) H* 05/20/17 09:00 pO2 255.0 mmHg (80.0-100.0) H 05/20/17 09:00 HCO3 20.2 mEq/L (20.0-26.0) 05/20/17 09:00 Base Excess -6.2 mEq/L (-3.0-3.0) L 05/20/17 09:00 O2 Saturation 100.0 % (92.0-100.0) 05/20/17 09:00 Feliciano Test NA 05/20/17 09:00 Vent Rate 12 05/20/17 09:00 Inspired O2 100 05/20/17 09:00 Tidal Volume 500 05/20/17 09:00 PEEP NA 05/20/17 09:00 Pressure (ins/psv/peep) NA 05/20/17 09:00 Critical Value CS 05/20/17 09:00 Sodium 136 mEq/L (136-145) 05/20/17 04:50 Potassium 4.8 mEq/L (3.5-5.1) 05/20/17 04:50 Chloride 102 mEq/L (98-107) 05/20/17 04:50 Carbon Dioxide 26.2 mEq/L (21.0-31.0) 05/20/17 04:50 Anion Gap 12.6 (7.0-16.0) 05/20/17 04:50 BUN 95 mg/dL (7-25) H* 05/20/17 04:50 Creatinine 4.1 mg/dL (0.7-1.3) H* 05/20/17 04:50 Est GFR ( Amer) TNP 05/20/17 04:50 Est GFR (Non-Af Amer) TNP 05/20/17 04:50 BUN/Creatinine Ratio 23.2 05/20/17 04:50 Glucose 123 mg/dL (70-105) H 05/20/17 04:50 POC Glucose 148 MG/DL (70 - 105) H 05/20/17 05:49 Hemoglobin A1c % 6.1 % (4.0-6.0) H 05/15/17 06:30 Plasma/Ser Osmolality 301 mOsmol/kg (280-301) 05/14/17 18:20 Whole Bld Lactic Acid 1.58 mmol/L (0.60-1.99) 05/13/17 17:42 Uric Acid 7.7 mg/dL (4.4-7.6) H 05/15/17 06:30 Calcium 8.9 mg/dL (8.6-10.3) 05/20/17 04:50 Phosphorus 5.4 mg/dL (2.5-5.0) H 05/15/17 06:30 Magnesium 2.2 mg/dL (1.9-2.7) 05/15/17 06:30 Total Bilirubin 0.4 mg/dL (0.3-1.0) 05/20/17 04:50 Direct Bilirubin 0.09 mg/dL (0.0-0.2) 05/19/17 04:50 AST 19 U/L (13-39) 05/20/17 04:50 ALT 4 U/L (7-52) L 05/20/17 04:50 Alkaline Phosphatase 62 U/L (34-104) 05/20/17 04:50 Ammonia 65 umol/L (16-53) H 05/19/17 04:50 Creatine Kinase 35 U/L (30-223) 05/16/17 23:06 Troponin I 0.02 ng/mL (0.01-0.05) 05/16/17 23:06 B-Natriuretic Peptide 2470.0 pg/mL (5.0-100.0) H 05/20/17 04:50 Total Protein 7.5 gm/dL (6.0-8.3) 05/20/17 04:50 Albumin 3.5 gm/dL (4.2-5.5) L 05/20/17 04:50 Globulin 4.0 gm/dL 05/20/17 04:50 Albumin/Globulin Ratio 0.9 (1.0-1.8) L 05/20/17 04:50 Prealbumin 14 mg/dL (9-32) 05/18/17 07:33 TSH 2.74 uIU/ml (0.34-5.60) 05/15/17 06:30 Urine Source CATH 05/13/17 19:50 Urine Color YELLOW 05/13/17 19:50 Urine Clarity CLOUDY (CLEAR) 05/13/17 19:50 Urine pH 6.0 05/13/17 19:50 Ur Specific [place] 1.015 (1.005-1.030) 05/13/17 19:50 Urine Protein 100 mg/dL (NEGATIVE) H 05/13/17 19:50 Urine Glucose (UA) NEGATIVE mg/dL (NEGATIVE) 05/13/17 19:50 Urine Ketones NEGATIVE mg/dL (NEGATIVE) 05/13/17 19:50 Urine Blood LARGE (NEGATIVE) H 05/13/17 19:50 Urine Nitrate NEGATIVE (NEGATIVE) 05/13/17 19:50 Urine Bilirubin NEGATIVE (NEGATIVE) 05/13/17 19:50 Urine Urobilinogen 0.2 E.U./dL (0.2 - 1.0) 05/13/17 19:50 Ur Leukocyte Esterase LARGE (NEGATIVE) H 05/13/17 19:50 Urine RBC 50-100 /hpf (0-5) H 05/13/17 19:50 Urine WBC >100 /hpf (0-5) H 05/13/17 19:50 Ur Epithelial Cells NONE SEEN /lpf (FEW) 05/13/17 19:50 Urine Bacteria NONE SEEN /hpf (NONE SEEN) 05/13/17 19:50 Ur Random Sodium 30 mmol/L 05/14/17 18:00 Urine Creatinine 36.4 mg/dl (Not Estab.) 05/14/17 18:00 Urine Microalbumin 363.5 ug/mL (Not Estab.) 05/14/17 18:00 Microalb/Creat Ratio 998.6 mg/g creat (0.0-30.0) H 05/14/17 18:00 Random Vancomycin 19.1 ug/mL (5.0-40.0) 05/19/17 04:50 Blood Type B POSITIVE 05/13/17 20:36 Antibody Screen NEGATIVE 05/13/17 20:36 - Physical Exam Vitals and I&O: Vital Signs Temp 97.9 F 05/20/17 04:00 Pulse 101 05/20/17 10:00 Resp 21 05/20/17 06:55 BP 119/69 05/20/17 09:04 Pulse Ox 96 05/20/17 10:00 Intake & Output 05/19/17 05/20/17 05/20/17 18:59 06:59 18:59 Intake Total 1080 1170 Output Total 200 200 Balance 880 970 Weight (lbs) 65 kg 64.552 kg Intake: Intake, IV Amount 300 250 Albumin 25% 12.5gm/50mL 150 50 12.5 gm In 50 ml @ 50 mls /hr IV TID [facility] Rx#: [id number] Doxycycline Hyclate 100 100 100 mg In Dextrose 5% 100 ml @ 100 mls/hr IV Q12H [facility] Rx#:[id number] Piperacillin Sodium/ 50 100 Tazobact 2.25 gm In Sodium Chloride 0.9% 50 ml @ 100 mls/hr IV Q8HR [facility] Rx#:[id number] Tube Feeding 480 720 Other 300 200 Output: Urine 200 200 Other: # Bowel Movements 2 2 Stool Characteristics Liquid Brown Active Medications: Current Medications Acetaminophen (Tylenol) 650 mg PO Q4HR PRN PRN Reason: Pain Or Fever above 101 Stop: 07/14/17 15:15 Last Admin: 05/17/17 11:11 Dose: 650 mg Atorvastatin Calcium (Lipitor) 10 mg GT HS YESSICA PRN Reason: Protocol Stop: 07/14/17 20:59 Last Admin: 05/19/17 22:01 Dose: 10 mg Budesonide (Pulmicort) 0.5 mg HHN BIDRT [facility] Stop: 07/17/17 18:59 Last Admin: 05/19/17 19:56 Dose: 0.5 mg Carbidopa/Levodopa (Sinemet 25mg-100 Mg) 1 tab PO TID [facility] Stop: 07/14/17 08:59 Last Admin: 05/20/17 11:03 Dose: 1 tab Furosemide (Lasix) 40 mg IVP DAILY YESSICA Stop: 07/18/17 08:59 Last Admin: 05/20/17 09:00 Dose: 40 mg Heparin Sodium (Porcine) (Heparin) 5,000 units SUBQ Q8H YESSICA Stop: 07/14/17 14:59 Last Admin: 05/20/17 07:00 Dose: 5,000 units Piperacillin Sod/Tazobactam (Sod 2.25 gm/ Sodium Chloride) 50 mls @ 100 mls/hr IV Q8HR YESSICA Stop: 07/17/17 20:59 Last Infusion: 05/20/17 05:25 Dose: Infused Albumin Human (Albutein 25%) 12.5 gm in 50 mls @ 50 mls/hr IV TID [facility] Stop: 05/21/17 09:59 Last Admin: 05/20/17 09:00 Dose: 50 mls/hr Doxycycline Hyclate 100 mg/ (Dextrose) 100 mls @ 100 mls/hr IV Q12H YESSICA Stop: 07/17/17 21:59 Last Admin: 05/20/17 09:00 Dose: 100 mls/hr Insulin Aspart (Novolog Insulin Sliding Scale) 0 units SUBQ Q6HR [facility] PRN Reason: Protocol Stop: 07/14/17 00:00 Last Admin: 05/20/17 06:33 Dose: Not Given Insulin Detemir (Levemir Insulin) 20 units SUBQ DAILY [facility] PRN Reason: Protocol Stop: 07/18/17 08:59 Last Admin: 05/20/17 09:00 Dose: 20 units Ipratropium [place] (Atrovent Neb 0.5mg/2.5ml) 0.5 mg HHN Q4HRT [facility] Stop: 07/17/17 14:59 Last Admin: 05/20/17 04:46 Dose: 0.5 mg Isosorbide Dinitrate (Isordil) 10 mg GT TID [facility] Stop: 07/14/17 08:59 Last Admin: 05/20/17 09:00 Dose: 10 mg Lactobacillus Rhamnosus (Culturelle) 1 each PO DAILY YESSICA Stop: 07/17/17 08:59 Last Admin: 05/20/17 11:04 Dose: 1 each Lactulose (Cephulac) 20 gm PO TID [facility] Stop: 07/14/17 08:59 Last Admin: 05/19/17 20:52 Dose: 20 gm Levetiracetam (Keppra) 250 mg NG BID YESSICA Stop: 07/14/17 08:59 Last Admin: 05/20/17 09:00 Dose: 250 mg Lorazepam (Ativan) 1 mg IVP Q4H PRN; Protocol PRN Reason: Agitation Stop: 07/19/17 09:02 Metolazone (Zaroxolyn) 5 mg PO DAILY YESSICA Stop: 07/18/17 13:59 Last Admin: 05/20/17 09:00 Dose: 5 mg Metoprolol Tartrate (Lopressor) 50 mg GT Q8H YESSICA Stop: 07/18/17 08:59 Last Admin: 05/20/17 09:00 Dose: 50 mg Metoprolol Tartrate (Lopressor) 25 mg PO BID [facility] Stop: 07/19/17 08:59 Last Admin: 05/20/17 09:04 Dose: 25 mg Miscellaneous (Vte Chemical Prophylaxis Screen/ Admission) 1 ea MC PRN PRN PRN Reason: PROTOCOL Stop: 07/14/17 09:25 Miscellaneous (Clinical Monitoring) 1 ea MC DAILY PRN PRN Reason: RENAL Stop: 07/15/17 12:32 Miscellaneous (Probiotic Screen) 1 ea MC PRN PRN PRN Reason: PROTOCOL Stop: 07/16/17 09:33 Morphine Sulfate (Morphine) 2 mg IVP Q3H PRN PRN Reason: PAIN Stop: 07/13/17 19:46 Last Admin: 05/19/17 19:00 Dose: 2 mg Mupirocin (Bactroban Oint) 1 appl TP BID YESSICA Stop: 07/14/17 16:59 Last Admin: 05/19/17 17:51 Dose: 1 appl Pantoprazole Sodium (Protonix) 40 mg GT DAILY YESSICA Stop: 07/14/17 08:59 Last Admin: 05/20/17 11:06 Dose: 40 mg Rifaximin (Xifaxan) 550 mg GT BID [facility] Stop: 07/14/17 08:59 Last Admin: 05/20/17 11:09 Dose: 550 mg General: Alert, No acute distress, Moderate distress, Other (Altered) HEENT: Atraumatic, Mucous membr. moist/pink Neck: Supple, +2 carotid pulse wo bruit Cardiovascular: Regular rate, Normal S1, Normal S2, Other (afib on the monitor) Lungs: Clear to auscultation (rales bilaterally), Other (bilateral rales noted) Abdomen: Bowel sounds, Soft, Distended (mildly) Extremities: no Edema Neurological: Sensation intact Skin: no Rash Psych/Mental Status: Mood NL - Procedures Procedures: Procedures Procedure Code Date INSERT EMERGENCY AIRWAY 48629 05/13/17 INSERTION OF ENDOTRACHEAL AIRWAY INTO [place]HE[place], VIA OPENING [id number] 05/13/17 RESPIRATORY VENTILATION, LESS THAN 24 CONSECUTIVE HOURS [id number] 05/13/17 VENT MGMT INPAT INIT DAY 28248 05/13/17 Assessment/Plan - Problem List Patient Problems: All Active Problems COUGH AND CONGESTION (Acute) - Assessment Assessment: Current Active Problems Problem Status Onset COUGH AND CONGESTION Acute Acute respiratory failure Altered mental state Worsening CHF Worsening Renal failure Pneumonia high G tube residual Afib RVR UTI CAD 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 need for HD maddy. I have also discussed the case with Nephrology on the case Dr Cesar who agreed with HD plan. He also discussed pt's condition with the Grandson . Per Dr Cesar Grandson stated he will discuss with the rest of the family re: HD .Awaiting Family decision to start HD. Continue Vent support and Frequent HHN.Continue Antibiotics. G tube feeding Hold. Gentle hydration with IVF @ 50 cc/hr. Continue anticoagulation. Patient condition is critical and prognosis very poor. Plan of care discussed with nursing staff. Nutritional Asmnt/Malnutr-PDOC - Dietary Evaluation Malnutrition Findings (Please click <Entered> for more info): Nutritional Asmnt/Malnutrition Start: 05/15/17 13: 56 Text: Status: Complete Freq: Document 05/15/17 13:56 DARON (Rec: 05/15/17 14:18 DARON [email or web address]) Nutritional Asmnt/Malnutrition Patient General Information Nutritional Screening High Risk Screening Diagnosis PNA, NICK, icnreasing renal failure, CVA, CHF, DM Pertinent Medical Hx/Surgical Hx CVA, dementia, afib, CAD, HTN, dyslipidemia, epilepsy, GERD, aspiration PNA, DM, CKD, dehydration, C. diff, anemia D Subjective Information 86 year old male from SNF. Pt greeted RD. Pt is overall thin , moderate to severe wasting to chest, clavicles, extremities. Observed Glytrol running at 60ml/hr x20hrs during visit. Unable to obtain CBW due to bedscale not calibrated. Discussed with YVETTE Farooq regarding tube feeding recommendations. Current Diet Order/ Nutrition Support Glytrol at 60ml/hr x 20hrs, providing 1200kcal 54g protein Pertinent Medications Lipitor, Novolog, Levemir, Cephulac, Morphine, Protonix, Nacl 0.9% Pertinent Labs 05/13: potassium 5.3H, BUN 80H, creatinine 2.4H, glucose 103 05/15: potassium WNL, BUN 70H, creatinine 2.4H, glucose 239H, A1c 6.1H, phosphorus 5.4H Nutritional Hx/Data Height 1.68 m Height (Calculated Centimeters) 167.6 Current Weight (lbs) 65.771 kg Weight (Calculated Kilograms) 65.8 Weight (Calculated Grams) 91494.9 [place] Body Weight 142 Weight Status Approriate GI Symptoms Difficult in: Swallowing Cultural/Ethnic/Gnosticism Belief [facility]: Glucerna 1.2 at 85ml/hr x 20hrs, providing 2040kcal, promote weight gain. Skin Integrity/Comment: Gee Novak. Skin intact. Estimated Nutritional Goals Calories/Kcals/Kg CBW 145lb/65.9kg Kcals Calculated 1976-2307kcal (30-35kcal/kg) Protein Calculated 46-92g (0.7-1.4g/kg, renal vs moderate to severe wasting) Fluid: ml Per MD (renal) Nutritional Problem 2. Problem Problem Impaired nutrient utilization related to Etiology NICK, hx CKD aeb Signs/Symptoms: "increasing renal failure," potaasum 5.3H on adm, BUN 70H, roasterman 2.4H, phosphorus 5.4H 1. Problem Problem Inadequate intake from enteral nutrition infusion related to Etiology estimated nutritional needs aeb Signs/Symptoms: providing to meet 61% lower end kcal needs Intervention/Recommendation Comments 1. Recommend Novasource Renal at 50ml/hr x 20hrs, providing 2000kcal and 91g protein. Current order Glytrol at 60ml/ hr x 20hrs is only providing 1200kcal, pt recieves 2040kcal at [facility]. Expected Outcomes/Goals Expected Outcomes/Goals 1. Pt to meet at least 100% of estimated nutritional needs on tube feeding with tolerance .
--- NOTE | 2017-05-20 12:22 | Cardiology ---
Cardiology Report - Cardiology Cardiology: Date of Service: 05/17/[address] Becky dickey M-MODE ECHOCARDIOLGRAM: Mitral valve normal left ventricle hypertrophy ejection fraction 65% left detriment large 4.5 cm aortic root normal aortic leaflets normal CONCLUSION: Hypertrophy of the left ventricle left atrial enlargement ejection fraction 65% 2D ECHO: Long axis mitral valve normal left atrium and large left ventricle hypertrophy ejection fraction 65% aortic root normal aortic leaflets normal Short axis mitral valve normal aortic valve normal Apical 4 chamber hypertrophy left ventricle ejection fraction 65% left atrium enlarged right ventricular cavity normal right atrium enlarged CONCLUSION: Hypertrophy left ventricle ejection fraction 65% left atrial enlargement and right atrial enlargement DOPPLER: Mild mitral regurgitation mild aortic regurgitation pressure half time 805 ms moderate tricuspid regurgitation right ventricular systolic pressure 50 mmHg with mild pulmonary hypertension CONCLUSION: Hypertrophy left ventricle ejection fraction 65% left atrium enlarged right ventricle enlarged mild pulmonary hypertension mild mitral regurgitation and mild aortic regurgitation and moderate tricuspid regurgitation
--- NOTE | 2017-05-20 13:27 | General Progress Note ---
Subjective - Review of Systems Service Date: 05/20/17 Subjective: sedated, on vent, nonverbal Objective - Results Result Diagrams: 05/20/17 04:50 05/20/17 04:50 Recent Labs: Laboratory Last Values WBC 14.7 Th/cmm (4.8-10.8) H D 05/20/17 04:50 RBC 2.90 Mil/cmm (3.80-5.80) L 05/20/17 04:50 Hgb 8.2 gm/dL (12.6-17.4) L 05/20/17 04:50 Hct 24.9 % (39.0-49.0) L 05/20/17 04:50 MCV 86.1 fl (80-99) 05/20/17 04:50 MCH 28.2 pg (27.0-31.0) 05/20/17 04:50 MCHC Differential 32.7 pg (28.0-36.0) 05/20/17 04:50 RDW 15.6 % (11.5-20.0) 05/20/17 04:50 Plt Count 239 Th/cmm (150-400) 05/20/17 04:50 MPV 8.8 fl 05/20/17 04:50 Neutrophils % 75.7 % (40.0-80.0) 05/18/17 07:33 Band Neutrophils % 2 % (0-10) 05/20/17 04:50 Lymphocytes % 13.2 % (20.0-50.0) L 05/18/17 07:33 Monocytes % 8.3 % (2.0-10.0) 05/18/17 07:33 Eosinophils % 2.0 % (0.0-5.0) 05/18/17 07:33 Basophils % 0.8 % (0.0-2.0) 05/18/17 07:33 Neutrophils (Manual) 89 % (40-80) H 05/20/17 04:50 Lymphocytes 7 % (20-50) L 05/20/17 04:50 Monocytes 1 % (2-10) L 05/20/17 04:50 Eosinophils 1 % (0-5) 05/20/17 04:50 Platelet Estimate ADEQUATE (NORMAL) 05/20/17 04:50 Eos Smear Source URINE 05/14/17 18:00 Eos Smear Total Cells FEW EOSINOPHILS SEEN (NONE SEEN) 05/14/17 18:00 PT 11.9 SECONDS (9.5-11.5) H 05/13/17 17:42 INR 1.13 (0.5-1.4) 05/13/17 17:42 PTT (Actin FS) 30.5 SECONDS (26.0-38.0) 05/15/17 12:30 Specimen Source Arterial 05/20/17 09:00 Sample Site RB 05/20/17 09:00 pH 7.12 (7.35-7.45) L* 05/20/17 09:00 pCO2 75.0 mmHg (35.0-45.0) H* 05/20/17 09:00 pO2 255.0 mmHg (80.0-100.0) H 05/20/17 09:00 HCO3 20.2 mEq/L (20.0-26.0) 05/20/17 09:00 Base Excess -6.2 mEq/L (-3.0-3.0) L 05/20/17 09:00 O2 Saturation 100.0 % (92.0-100.0) 05/20/17 09:00 Feliciano Test NA 05/20/17 09:00 Vent Rate 12 05/20/17 09:00 Inspired O2 100 05/20/17 09:00 Tidal Volume 500 05/20/17 09:00 PEEP NA 05/20/17 09:00 Pressure (ins/psv/peep) NA 05/20/17 09:00 Critical Value CS 05/20/17 09:00 Sodium 136 mEq/L (136-145) 05/20/17 04:50 Potassium 4.8 mEq/L (3.5-5.1) 05/20/17 04:50 Chloride 102 mEq/L (98-107) 05/20/17 04:50 Carbon Dioxide 26.2 mEq/L (21.0-31.0) 05/20/17 04:50 Anion Gap 12.6 (7.0-16.0) 05/20/17 04:50 BUN 95 mg/dL (7-25) H* 05/20/17 04:50 Creatinine 4.1 mg/dL (0.7-1.3) H* 05/20/17 04:50 Est GFR ( Amer) TNP 05/20/17 04:50 Est GFR (Non-Af Amer) TNP 05/20/17 04:50 BUN/Creatinine Ratio 23.2 05/20/17 04:50 Glucose 123 mg/dL (70-105) H 05/20/17 04:50 POC Glucose 148 MG/DL (70 - 105) H 05/20/17 05:49 Hemoglobin A1c % 6.1 % (4.0-6.0) H 05/15/17 06:30 Plasma/Ser Osmolality 301 mOsmol/kg (280-301) 05/14/17 18:20 Whole Bld Lactic Acid 1.58 mmol/L (0.60-1.99) 05/13/17 17:42 Uric Acid 7.7 mg/dL (4.4-7.6) H 05/15/17 06:30 Calcium 8.9 mg/dL (8.6-10.3) 05/20/17 04:50 Phosphorus 5.4 mg/dL (2.5-5.0) H 05/15/17 06:30 Magnesium 2.2 mg/dL (1.9-2.7) 05/15/17 06:30 Total Bilirubin 0.4 mg/dL (0.3-1.0) 05/20/17 04:50 Direct Bilirubin 0.09 mg/dL (0.0-0.2) 05/19/17 04:50 AST 19 U/L (13-39) 05/20/17 04:50 ALT 4 U/L (7-52) L 05/20/17 04:50 Alkaline Phosphatase 62 U/L (34-104) 05/20/17 04:50 Ammonia 65 umol/L (16-53) H 05/19/17 04:50 Creatine Kinase 35 U/L (30-223) 05/16/17 23:06 Troponin I 0.02 ng/mL (0.01-0.05) 05/16/17 23:06 B-Natriuretic Peptide 2470.0 pg/mL (5.0-100.0) H 05/20/17 04:50 Total Protein 7.5 gm/dL (6.0-8.3) 05/20/17 04:50 Albumin 3.5 gm/dL (4.2-5.5) L 05/20/17 04:50 Globulin 4.0 gm/dL 05/20/17 04:50 Albumin/Globulin Ratio 0.9 (1.0-1.8) L 05/20/17 04:50 Prealbumin 14 mg/dL (9-32) 05/18/17 07:33 TSH 2.74 uIU/ml (0.34-5.60) 05/15/17 06:30 Urine Source CATH 05/13/17 19:50 Urine Color YELLOW 05/13/17 19:50 Urine Clarity CLOUDY (CLEAR) 05/13/17 19:50 Urine pH 6.0 05/13/17 19:50 Ur Specific [place] 1.015 (1.005-1.030) 05/13/17 19:50 Urine Protein 100 mg/dL (NEGATIVE) H 05/13/17 19:50 Urine Glucose (UA) NEGATIVE mg/dL (NEGATIVE) 05/13/17 19:50 Urine Ketones NEGATIVE mg/dL (NEGATIVE) 05/13/17 19:50 Urine Blood LARGE (NEGATIVE) H 05/13/17 19:50 Urine Nitrate NEGATIVE (NEGATIVE) 05/13/17 19:50 Urine Bilirubin NEGATIVE (NEGATIVE) 05/13/17 19:50 Urine Urobilinogen 0.2 E.U./dL (0.2 - 1.0) 05/13/17 19:50 Ur Leukocyte Esterase LARGE (NEGATIVE) H 05/13/17 19:50 Urine RBC 50-100 /hpf (0-5) H 05/13/17 19:50 Urine WBC >100 /hpf (0-5) H 05/13/17 19:50 Ur Epithelial Cells NONE SEEN /lpf (FEW) 05/13/17 19:50 Urine Bacteria NONE SEEN /hpf (NONE SEEN) 05/13/17 19:50 Ur Random Sodium 30 mmol/L 05/14/17 18:00 Urine Creatinine 36.4 mg/dl (Not Estab.) 05/14/17 18:00 Urine Microalbumin 363.5 ug/mL (Not Estab.) 05/14/17 18:00 Microalb/Creat Ratio 998.6 mg/g creat (0.0-30.0) H 05/14/17 18:00 Random Vancomycin 19.1 ug/mL (5.0-40.0) 05/19/17 04:50 Blood Type B POSITIVE 05/13/17 20:36 Antibody Screen NEGATIVE 05/13/17 20:36 - Physical Exam Vitals and I&O: Vital Signs Temp 97.9 F 05/20/17 04:00 Pulse 101 05/20/17 10:00 Resp 21 05/20/17 06:55 BP 119/69 05/20/17 09:04 Pulse Ox 96 05/20/17 10:00 Intake & Output 05/19/17 05/20/17 05/20/17 18:59 06:59 18:59 Intake Total 1080 1170 Output Total 200 200 Balance 880 970 Weight (lbs) 65 kg 64.552 kg Intake: Intake, IV Amount 300 250 Albumin 25% 12.5gm/50mL 150 50 12.5 gm In 50 ml @ 50 mls /hr IV TID [facility] Rx#: [id number] Doxycycline Hyclate 100 100 100 mg In Dextrose 5% 100 ml @ 100 mls/hr IV Q12H [facility] Rx#:[id number] Piperacillin Sodium/ 50 100 Tazobact 2.25 gm In Sodium Chloride 0.9% 50 ml @ 100 mls/hr IV Q8HR [facility] Rx#:[id number] Tube Feeding 480 720 Other 300 200 Output: Urine 200 200 Other: # Bowel Movements 2 2 Stool Characteristics Liquid Brown Active Medications: Current Medications Acetaminophen (Tylenol) 650 mg PO Q4HR PRN PRN Reason: Pain Or Fever above 101 Stop: 07/14/17 15:15 Last Admin: 05/17/17 11:11 Dose: 650 mg Albuterol/Ipratropium (Duoneb Neb) 3 ml HHN Q4HRT [facility] Stop: 07/19/17 14:59 Atorvastatin Calcium (Lipitor) 10 mg GT HS YESSICA PRN Reason: Protocol Stop: 07/14/17 20:59 Last Admin: 05/19/17 22:01 Dose: 10 mg Budesonide (Pulmicort) 0.5 mg HHN BIDRT YESSICA Stop: 07/17/17 18:59 Last Admin: 05/19/17 19:56 Dose: 0.5 mg Carbidopa/Levodopa (Sinemet 25mg-100 Mg) 1 tab PO TID YESSICA Stop: 07/14/17 08:59 Last Admin: 05/20/17 11:03 Dose: 1 tab Furosemide (Lasix) 40 mg IVP DAILY [facility] Stop: 07/18/17 08:59 Last Admin: 05/20/17 09:00 Dose: 40 mg Heparin Sodium (Porcine) (Heparin) 5,000 units SUBQ Q8H [facility] Stop: 07/14/17 14:59 Last Admin: 05/20/17 07:00 Dose: 5,000 units Piperacillin Sod/Tazobactam (Sod 2.25 gm/ Sodium Chloride) 50 mls @ 100 mls/hr IV Q8HR [facility] Stop: 07/17/17 20:59 Last Infusion: 05/20/17 05:25 Dose: Infused Albumin Human (Albutein 25%) 12.5 gm in 50 mls @ 50 mls/hr IV TID [facility] Stop: 05/21/17 09:59 Last Admin: 05/20/17 09:00 Dose: 50 mls/hr Doxycycline Hyclate 100 mg/ (Dextrose) 100 mls @ 100 mls/hr IV Q12H [facility] Stop: 07/17/17 21:59 Last Admin: 05/20/17 09:00 Dose: 100 mls/hr Norepinephrine Bitartrate 8 mg (/ Dextrose) 258 mls @ 0 mls/hr IV TITR PRN; Protocol; Titrate PRN Reason: BP MAINTENANCE (PER PROTOCOL) Stop: 07/19/17 12:29 Last Admin: 05/20/17 12:23 Dose: 8 mcg/min, 15.48 mls/hr Phenylephrine HCl 10 mg/ (Sodium Chloride) 250 mls @ 0 mls/hr IV TITR YESSICA; Per Protocol PRN Reason: Protocol Stop: 07/19/17 12:59 Insulin Aspart (Novolog Insulin Sliding Scale) 0 units SUBQ Q6HR [facility] PRN Reason: Protocol Stop: 07/14/17 00:00 Last Admin: 05/20/17 06:33 Dose: Not Given Insulin Detemir (Levemir Insulin) 20 units SUBQ DAILY [facility] PRN Reason: Protocol Stop: 07/18/17 08:59 Last Admin: 05/20/17 09:00 Dose: 20 units Ipratropium Aline (Atrovent Neb 0.5mg/2.5ml) 0.5 mg HHN Q4HRT [facility] Stop: 07/17/17 14:59 Last Admin: 05/20/17 04:46 Dose: 0.5 mg Isosorbide Dinitrate (Isordil) 10 mg GT TID [facility] Stop: 07/14/17 08:59 Last Admin: 05/20/17 09:00 Dose: 10 mg Lactobacillus Rhamnosus (Culturelle) 1 each PO DAILY [facility] Stop: 07/17/17 08:59 Last Admin: 05/20/17 11:04 Dose: 1 each Lactulose (Cephulac) 20 gm PO TID [facility] Stop: 07/14/17 08:59 Last Admin: 05/19/17 20:52 Dose: 20 gm Levetiracetam (Keppra) 250 mg NG BID [facility] Stop: 07/14/17 08:59 Last Admin: 05/20/17 09:00 Dose: 250 mg Lorazepam (Ativan) 1 mg IVP Q4H PRN; Protocol PRN Reason: Agitation Stop: 07/19/17 09:02 Metoprolol Tartrate (Lopressor) 50 mg GT Q8H [facility] Stop: 07/18/17 08:59 Last Admin: 05/20/17 09:00 Dose: 50 mg Metoprolol Tartrate (Lopressor) 25 mg PO BID [facility] Stop: 07/19/17 08:59 Last Admin: 05/20/17 09:04 Dose: 25 mg Miscellaneous (Vte Chemical Prophylaxis Screen/ Admission) 1 ea PRN PRN PRN Reason: PROTOCOL Stop: 07/14/17 09:25 Miscellaneous (Clinical Monitoring) 1 ea [facility] DAILY PRN PRN Reason: RENAL Stop: 07/15/17 12:32 Miscellaneous (Probiotic Screen) 1 ea PRN PRN PRN Reason: PROTOCOL Stop: 07/16/17 09:33 Morphine Sulfate (Morphine) 2 mg IVP Q3H PRN PRN Reason: PAIN Stop: 07/13/17 19:46 Last Admin: 05/19/17 19:00 Dose: 2 mg Mupirocin (Bactroban Oint) 1 appl TP BID [facility] Stop: 07/14/17 16:59 Last Admin: 05/19/17 17:51 Dose: 1 appl Pantoprazole Sodium (Protonix) 40 mg GT DAILY [facility] Stop: 07/14/17 08:59 Last Admin: 05/20/17 11:06 Dose: 40 mg Rifaximin (Xifaxan) 550 mg GT BID YESSICA Stop: 07/14/17 08:59 Last Admin: 05/20/17 11:09 Dose: 550 mg General: Alert, No acute distress, Moderate distress, Other (Altered) HEENT: Atraumatic, Mucous membr. moist/pink Neck: Supple, +2 carotid pulse wo bruit Cardiovascular: Regular rate, Normal S1, Normal S2, Other (afib on the monitor) Lungs: Clear to auscultation (rales bilaterally), Other (bilateral rales noted) Abdomen: Bowel sounds, Soft, Distended (mildly) Extremities: no Edema Neurological: Sensation intact Skin: no Rash Psych/Mental Status: Mood NL - Procedures Procedures: Procedures Procedure Code Date INSERT EMERGENCY AIRWAY 47459 05/13/17 INSERTION OF ENDOTRACHEAL AIRWAY INTO [place], VIA OPENING [id number] 05/13/17 RESPIRATORY VENTILATION, LESS THAN 24 CONSECUTIVE HOURS [id number] 05/13/17 VENT MGMT INPAT INIT DAY 21310 05/13/17 Assessment/Plan - Problem List Patient Problems: All Active Problems COUGH AND CONGESTION (Acute) - Assessment Assessment: NICK on CKD A LOC secondary to metabolic encephalopathy/medications Dehydration Essential hypertension with CKD COPD Chronic atrial fibrillation Status post CVA Aspiration pneumonia/dysphagia status post PEG Type 2 diabetes mellitus with CKD Acute Decompensated CHF Acute Resp Failure on Vent Bradycardia - Plan Plan: Lab - Result Diagrams 05/15/17 06:30 05/15/17 06:30 Current Medications Acetaminophen (Tylenol) 650 mg PO Q4HR PRN PRN Reason: Pain Or Fever above 101 Stop: 07/14/17 15:15 Last Admin: 05/15/17 16:21 Dose: 650 mg Albuterol Sulfate (Albuterol 2.5mg/3ml Neb Ud) 2.5 mg HHN Q6HRT YESSICA Stop: 07/14/17 00:59 Last Admin: 05/15/17 16:05 Dose: 2.5 mg Atorvastatin Calcium (Lipitor) 10 mg GT HS YESSICA PRN Reason: Protocol Stop: 07/14/17 20:59 Carbidopa/Levodopa (Sinemet 25mg-100 Mg) 1 tab PO TID YESSICA Stop: 07/14/17 08:59 Last Admin: 05/15/17 14:02 Dose: 1 tab Heparin Sodium (Porcine) (Heparin) 5,000 units SUBQ Q8H YESSICA Stop: 07/14/17 14:59 Last Admin: 05/15/17 16:24 Dose: 5,000 units Sodium Chloride (Nacl 0.9%) 1,000 mls @ 60 mls/hr IV .[id number] [facility] Stop: 07/13/17 06:40 Last Admin: 05/14/17 17:16 Dose: 60 mls/hr Azithromycin 250 mg/ Sodium (Chloride) 250 mls @ 250 mls/hr IV Q24HR [facility] Stop: 05/20/17 08:59 Piperacillin Sod/Tazobactam (Sod 3.375 gm/ Sodium Chloride) 50 mls @ 100 mls/ hr IV Q8HR [facility] Stop: 07/14/17 15:14 Last Admin: 05/15/17 15:57 Dose: 100 mls/hr Insulin Aspart (Novolog Insulin Sliding Scale) 0 units SUBQ Q6HR [facility] PRN Reason: Protocol Stop: 07/14/17 00:00 Last Admin: 05/15/17 17:09 Dose: Not Given Insulin Detemir (Levemir Insulin) 14 units SUBQ DAILY [facility] PRN Reason: Protocol Stop: 07/15/17 08:59 Isosorbide Dinitrate (Isordil) 10 mg GT TID [facility] Stop: 07/14/17 08:59 Last Admin: 05/15/17 14:02 Dose: 10 mg Lactulose (Cephulac) 20 gm PO TID [facility] Stop: 07/14/17 08:59 Last Admin: 05/15/17 14:02 Dose: 20 gm Levetiracetam (Keppra) 250 mg NG BID [facility] Stop: 07/14/17 08:59 Last Admin: 05/15/17 16:23 Dose: 250 mg Metoprolol Tartrate (Lopressor) 37.5 mg GT BID [facility] Stop: 07/14/17 00:14 Last Admin: 05/15/17 16:22 Dose: 37.5 mg Miscellaneous (Vte Chemical Prophylaxis Screen/ Admission) 1 ea [facility] PRN PRN PRN Reason: PROTOCOL Stop: 07/14/17 09:25 Morphine Sulfate (Morphine) 2 mg IVP Q3H PRN PRN Reason: PAIN Stop: 07/13/17 19:46 Last Admin: 05/14/17 21:16 Dose: 2 mg Mupirocin (Bactroban Oint) 1 appl TP BID YESSICA Stop: 07/14/17 16:59 Last Admin: 05/15/17 16:24 Dose: 1 appl Pantoprazole Sodium (Protonix) 40 mg GT DAILY [facility] Stop: 07/14/17 08:59 Last Admin: 05/15/17 08:36 Dose: 40 mg Rifaximin (Xifaxan) 550 mg GT BID [facility] Stop: 07/14/17 08:59 Last Admin: 05/15/17 16:23 Dose: 550 mg Kidney function worse with a BUN up to 83 and creatinine of 3.3 Sodium improved to 137 White count stable at 11.3, on Zosyn Chest x-ray suggestive of right effusion & CHF, and elevated BNP of 1770, will discontinue IV fluids and continue feedings Reviewed his meds Follow-up electrolytes start Maintenance Lasix w/ albumin infusion to improve intravascular volume Decrease nephro to 40 ml/hr Lab - Result Diagrams 05/19/17 04:50 05/19/17 04:50 Nutritional Asmnt/Malnutr-PDOC - Dietary Evaluation Malnutrition Findings (Please click <Entered> for more info): Nutritional Asmnt/Malnutrition Start: 05/15/17 13: 56 Text: Status: Complete Freq: Document 05/15/17 13:56 GSUN (Rec: 05/15/17 14:18 GSTHALIA [email or web address]) Nutritional Asmnt/Malnutrition Patient General Information Nutritional Screening High Risk Screening Diagnosis PNA, NICK, icnreasing renal failure, CVA, CHF, DM Pertinent Medical Hx/Surgical Hx CVA, dementia, afib, CAD, HTN, dyslipidemia, epilepsy, GERD, aspiration PNA, DM, CKD, dehydration, C. diff, anemia D Subjective Information 86 year old male from SNF. Pt greeted RD. Pt is overall thin , moderate to severe wasting to chest, clavicles, extremities. Observed Glytrol running at 60ml/hr x20hrs during visit. Unable to obtain CBW due to bedscale not calibrated. Discussed with YVETTE Farooq regarding tube feeding recommendations. Current Diet Order/ Nutrition Support Glytrol at 60ml/hr x 20hrs, providing 1200kcal 54g protein Pertinent Medications Lipitor, Novolog, Levemir, Cephulac, Morphine, Protonix, Nacl 0.9% Pertinent Labs 05/13: potassium 5.3H, BUN 80H, creatinine 2.4H, glucose 103 7/13: potassium WNL, BUN 70H, creatinine 2.4H, glucose 239H, A1c 6.1H, phosphorus 5.4H Nutritional Hx/Data Height 1.68 m Height (Calculated Centimeters) 167.6 Current Weight (lbs) 65.771 kg Weight (Calculated Kilograms) 65.8 Weight (Calculated Grams) 51285.9 [place] Body Weight 142 Weight Status Approriate GI Symptoms Difficult in: Swallowing Cultural/Ethnic/Islam Belief [facility]: Glucerna 1.2 at 85ml/hr x 20hrs, providing 2040kcal, promote weight gain. Skin Integrity/Comment: Gee 12. Skin intact. Estimated Nutritional Goals Calories/Kcals/Kg CBW 145lb/65.9kg Kcals Calculated 1976-2307kcal (30-35kcal/kg) Protein Calculated 46-92g (0.7-1.4g/kg, renal vs moderate to severe wasting) Fluid: ml Per MD (renal) Nutritional Problem 2. Problem Problem Impaired nutrient utilization related to Etiology NICK, hx CKD aeb Signs/Symptoms: "increasing renal failure," potaasum 5.3H on adm, BUN 70H, surveyor geophysical prospecting 2.4H, phosphorus 5.4H 1. Problem Problem Inadequate intake from enteral nutrition infusion related to Etiology estimated nutritional needs aeb Signs/Symptoms: providing to meet 61% lower end kcal needs Intervention/Recommendation Comments 1. Recommend Novasource Renal at 50ml/hr x 20hrs, providing 2000kcal and 91g protein. Current order Glytrol at 60ml/ hr x 20hrs is only providing 1200kcal, pt recieves 2040kcal at [facility]. Expected Outcomes/Goals Expected Outcomes/Goals 1. Pt to meet at least 100% of estimated nutritional needs on tube feeding with tolerance .
[2017-05-20 13:31] LABS: pH 7.16 (7.35-7.45)
[2017-05-20 13:32] LABS: BE(B) -4.6 mEq/L (-3.0-3.0); HCO3 21.2 mEq/L (20.0-26.0)
[2017-05-20 13:33] LABS: ABG SOURCE Arterial; MECH RATE 12; MECH VT 500
[2017-05-20 13:34] LABS: CRITICAL VALUES REPORTED BY CS; FIO2 80
--- NOTE | 2017-05-20 13:34 | General Progress Note ---
Subjective - Review of Systems Subjective: sedated, on vent, nonverbal Objective - Results Result Diagrams: 05/20/17 04:50 05/20/17 04:50 Recent Labs: Laboratory Last Values WBC 14.7 Th/cmm (4.8-10.8) H D 05/20/17 04:50 RBC 2.90 Mil/cmm (3.80-5.80) L 05/20/17 04:50 Hgb 8.2 gm/dL (12.6-17.4) L 05/20/17 04:50 Hct 24.9 % (39.0-49.0) L 05/20/17 04:50 MCV 86.1 fl (80-99) 05/20/17 04:50 MCH 28.2 pg (27.0-31.0) 05/20/17 04:50 MCHC Differential 32.7 pg (28.0-36.0) 05/20/17 04:50 RDW 15.6 % (11.5-20.0) 05/20/17 04:50 Plt Count 239 Th/cmm (150-400) 05/20/17 04:50 MPV 8.8 fl 05/20/17 04:50 Neutrophils % 75.7 % (40.0-80.0) 05/18/17 07:33 Band Neutrophils % 2 % (0-10) 05/20/17 04:50 Lymphocytes % 13.2 % (20.0-50.0) L 05/18/17 07:33 Monocytes % 8.3 % (2.0-10.0) 05/18/17 07:33 Eosinophils % 2.0 % (0.0-5.0) 05/18/17 07:33 Basophils % 0.8 % (0.0-2.0) 05/18/17 07:33 Neutrophils (Manual) 89 % (40-80) H 05/20/17 04:50 Lymphocytes 7 % (20-50) L 05/20/17 04:50 Monocytes 1 % (2-10) L 05/20/17 04:50 Eosinophils 1 % (0-5) 05/20/17 04:50 Platelet Estimate ADEQUATE (NORMAL) 05/20/17 04:50 Eos Smear Source URINE 05/14/17 18:00 Eos Smear Total Cells FEW EOSINOPHILS SEEN (NONE SEEN) 05/14/17 18:00 PT 11.9 SECONDS (9.5-11.5) H 05/13/17 17:42 INR 1.13 (0.5-1.4) 05/13/17 17:42 PTT (Actin FS) 30.5 SECONDS (26.0-38.0) 05/15/17 12:30 Specimen Source Arterial 05/20/17 09:00 Sample Site RB 05/20/17 09:00 pH 7.12 (7.35-7.45) L* 05/20/17 09:00 pCO2 75.0 mmHg (35.0-45.0) H* 05/20/17 09:00 pO2 255.0 mmHg (80.0-100.0) H 05/20/17 09:00 HCO3 20.2 mEq/L (20.0-26.0) 05/20/17 09:00 Base Excess -6.2 mEq/L (-3.0-3.0) L 05/20/17 09:00 O2 Saturation 100.0 % (92.0-100.0) 05/20/17 09:00 Feliciano Test NA 05/20/17 09:00 Vent Rate 12 05/20/17 09:00 Inspired O2 100 05/20/17 09:00 Tidal Volume 500 05/20/17 09:00 PEEP NA 05/20/17 09:00 Pressure (ins/psv/peep) NA 05/20/17 09:00 Critical Value CS 05/20/17 09:00 Sodium 136 mEq/L (136-145) 05/20/17 04:50 Potassium 4.8 mEq/L (3.5-5.1) 05/20/17 04:50 Chloride 102 mEq/L (98-107) 05/20/17 04:50 Carbon Dioxide 26.2 mEq/L (21.0-31.0) 05/20/17 04:50 Anion Gap 12.6 (7.0-16.0) 05/20/17 04:50 BUN 95 mg/dL (7-25) H* 05/20/17 04:50 Creatinine 4.1 mg/dL (0.7-1.3) H* 05/20/17 04:50 Est GFR ( Amer) TNP 05/20/17 04:50 Est GFR (Non-Af Amer) TNP 05/20/17 04:50 BUN/Creatinine Ratio 23.2 05/20/17 04:50 Glucose 123 mg/dL (70-105) H 05/20/17 04:50 POC Glucose 148 MG/DL (70 - 105) H 05/20/17 05:49 Hemoglobin A1c % 6.1 % (4.0-6.0) H 05/15/17 06:30 Plasma/Ser Osmolality 301 mOsmol/kg (280-301) 05/14/17 18:20 Whole Bld Lactic Acid 1.58 mmol/L (0.60-1.99) 05/13/17 17:42 Uric Acid 7.7 mg/dL (4.4-7.6) H 05/15/17 06:30 Calcium 8.9 mg/dL (8.6-10.3) 05/20/17 04:50 Phosphorus 5.4 mg/dL (2.5-5.0) H 05/15/17 06:30 Magnesium 2.2 mg/dL (1.9-2.7) 05/15/17 06:30 Total Bilirubin 0.4 mg/dL (0.3-1.0) 05/20/17 04:50 Direct Bilirubin 0.09 mg/dL (0.0-0.2) 05/19/17 04:50 AST 19 U/L (13-39) 05/20/17 04:50 ALT 4 U/L (7-52) L 05/20/17 04:50 Alkaline Phosphatase 62 U/L (34-104) 05/20/17 04:50 Ammonia 65 umol/L (16-53) H 05/19/17 04:50 Creatine Kinase 35 U/L (30-223) 05/16/17 23:06 Troponin I 0.02 ng/mL (0.01-0.05) 05/16/17 23:06 B-Natriuretic Peptide 2470.0 pg/mL (5.0-100.0) H 05/20/17 04:50 Total Protein 7.5 gm/dL (6.0-8.3) 05/20/17 04:50 Albumin 3.5 gm/dL (4.2-5.5) L 05/20/17 04:50 Globulin 4.0 gm/dL 05/20/17 04:50 Albumin/Globulin Ratio 0.9 (1.0-1.8) L 05/20/17 04:50 Prealbumin 14 mg/dL (9-32) 05/18/17 07:33 TSH 2.74 uIU/ml (0.34-5.60) 05/15/17 06:30 Urine Source CATH 05/13/17 19:50 Urine Color YELLOW 05/13/17 19:50 Urine Clarity CLOUDY (CLEAR) 05/13/17 19:50 Urine pH 6.0 05/13/17 19:50 Ur Specific [place] 1.015 (1.005-1.030) 05/13/17 19:50 Urine Protein 100 mg/dL (NEGATIVE) H 05/13/17 19:50 Urine Glucose (UA) NEGATIVE mg/dL (NEGATIVE) 05/13/17 19:50 Urine Ketones NEGATIVE mg/dL (NEGATIVE) 05/13/17 19:50 Urine Blood LARGE (NEGATIVE) H 05/13/17 19:50 Urine Nitrate NEGATIVE (NEGATIVE) 05/13/17 19:50 Urine Bilirubin NEGATIVE (NEGATIVE) 05/13/17 19:50 Urine Urobilinogen 0.2 E.U./dL (0.2 - 1.0) 05/13/17 19:50 Ur Leukocyte Esterase LARGE (NEGATIVE) H 05/13/17 19:50 Urine RBC 50-100 /hpf (0-5) H 05/13/17 19:50 Urine WBC >100 /hpf (0-5) H 05/13/17 19:50 Ur Epithelial Cells NONE SEEN /lpf (FEW) 05/13/17 19:50 Urine Bacteria NONE SEEN /hpf (NONE SEEN) 05/13/17 19:50 Ur Random Sodium 30 mmol/L 05/14/17 18:00 Urine Creatinine 36.4 mg/dl (Not Estab.) 05/14/17 18:00 Urine Microalbumin 363.5 ug/mL (Not Estab.) 05/14/17 18:00 Microalb/Creat Ratio 998.6 mg/g creat (0.0-30.0) H 05/14/17 18:00 Random Vancomycin 19.1 ug/mL (5.0-40.0) 05/19/17 04:50 Blood Type B POSITIVE 05/13/17 20:36 Antibody Screen NEGATIVE 05/13/17 20:36 - Physical Exam Vitals and I&O: Vital Signs Temp 97.9 F 05/20/17 04:00 Pulse 101 05/20/17 10:00 Resp 21 05/20/17 06:55 BP 119/69 05/20/17 09:04 Pulse Ox 96 05/20/17 10:00 Intake & Output 05/19/17 05/20/17 05/20/17 18:59 06:59 18:59 Intake Total 1080 1170 Output Total 200 200 Balance 880 970 Weight (lbs) 65 kg 64.552 kg Intake: Intake, IV Amount 300 250 Albumin 25% 12.5gm/50mL 150 50 12.5 gm In 50 ml @ 50 mls /hr IV TID [facility] Rx#: [id number] Doxycycline Hyclate 100 100 100 mg In Dextrose 5% 100 ml @ 100 mls/hr IV Q12H [facility] Rx#:[id number] Piperacillin Sodium/ 50 100 Tazobact 2.25 gm In Sodium Chloride 0.9% 50 ml @ 100 mls/hr IV Q8HR [facility] Rx#:[id number] Tube Feeding 480 720 Other 300 200 Output: Urine 200 200 Other: # Bowel Movements 2 2 Stool Characteristics Liquid Brown Active Medications: Current Medications Acetaminophen (Tylenol) 650 mg PO Q4HR PRN PRN Reason: Pain Or Fever above 101 Stop: 07/14/17 15:15 Last Admin: 05/17/17 11:11 Dose: 650 mg Albuterol/Ipratropium (Duoneb Neb) 3 ml HHN Q4HRT [facility] Stop: 07/19/17 14:59 Atorvastatin Calcium (Lipitor) 10 mg GT HS YESSICA PRN Reason: Protocol Stop: 07/14/17 20:59 Last Admin: 05/19/17 22:01 Dose: 10 mg Budesonide (Pulmicort) 0.5 mg HHN BIDRT [facility] Stop: 07/17/17 18:59 Last Admin: 05/19/17 19:56 Dose: 0.5 mg Carbidopa/Levodopa (Sinemet 25mg-100 Mg) 1 tab PO TID YESSICA Stop: 07/14/17 08:59 Last Admin: 05/20/17 11:03 Dose: 1 tab Furosemide (Lasix) 40 mg IVP DAILY [facility] Stop: 07/18/17 08:59 Last Admin: 05/20/17 09:00 Dose: 40 mg Heparin Sodium (Porcine) (Heparin) 5,000 units SUBQ Q8H [facility] Stop: 07/14/17 14:59 Last Admin: 05/20/17 07:00 Dose: 5,000 units Piperacillin Sod/Tazobactam (Sod 2.25 gm/ Sodium Chloride) 50 mls @ 100 mls/hr IV Q8HR [facility] Stop: 07/17/17 20:59 Last Infusion: 05/20/17 05:25 Dose: Infused Albumin Human (Albutein 25%) 12.5 gm in 50 mls @ 50 mls/hr IV TID [facility] Stop: 05/21/17 09:59 Last Admin: 05/20/17 09:00 Dose: 50 mls/hr Doxycycline Hyclate 100 mg/ (Dextrose) 100 mls @ 100 mls/hr IV Q12H [facility] Stop: 07/17/17 21:59 Last Admin: 05/20/17 09:00 Dose: 100 mls/hr Norepinephrine Bitartrate 8 mg (/ Dextrose) 258 mls @ 0 mls/hr IV TITR PRN; Protocol; Titrate PRN Reason: BP MAINTENANCE (PER PROTOCOL) Stop: 07/19/17 12:29 Last Admin: 05/20/17 12:23 Dose: 8 mcg/min, 15.48 mls/hr Phenylephrine HCl 10 mg/ (Sodium Chloride) 250 mls @ 0 mls/hr IV TITR YESSICA; Per Protocol PRN Reason: Protocol Stop: 07/19/17 12:59 Insulin Aspart (Novolog Insulin Sliding Scale) 0 units SUBQ Q6HR [facility] PRN Reason: Protocol Stop: 07/14/17 00:00 Last Admin: 05/20/17 06:33 Dose: Not Given Insulin Detemir (Levemir Insulin) 20 units SUBQ DAILY [facility] PRN Reason: Protocol Stop: 07/18/17 08:59 Last Admin: 05/20/17 09:00 Dose: 20 units Ipratropium Miller (Atrovent Neb 0.5mg/2.5ml) 0.5 mg HHN Q4HRT [facility] Stop: 07/17/17 14:59 Last Admin: 05/20/17 04:46 Dose: 0.5 mg Isosorbide Dinitrate (Isordil) 10 mg GT TID [facility] Stop: 07/14/17 08:59 Last Admin: 05/20/17 09:00 Dose: 10 mg Lactobacillus Rhamnosus (Culturelle) 1 each PO DAILY [facility] Stop: 07/17/17 08:59 Last Admin: 05/20/17 11:04 Dose: 1 each Lactulose (Cephulac) 20 gm PO TID [facility] Stop: 07/14/17 08:59 Last Admin: 05/19/17 20:52 Dose: 20 gm Levetiracetam (Keppra) 250 mg NG BID [facility] Stop: 07/14/17 08:59 Last Admin: 05/20/17 09:00 Dose: 250 mg Lorazepam (Ativan) 1 mg IVP Q4H PRN; Protocol PRN Reason: Agitation Stop: 07/19/17 09:02 Metoprolol Tartrate (Lopressor) 50 mg GT Q8H [facility] Stop: 07/18/17 08:59 Last Admin: 05/20/17 09:00 Dose: 50 mg Metoprolol Tartrate (Lopressor) 25 mg PO BID [facility] Stop: 07/19/17 08:59 Last Admin: 05/20/17 09:04 Dose: 25 mg Miscellaneous (Vte Chemical Prophylaxis Screen/ Admission) 1 ea PRN PRN PRN Reason: PROTOCOL Stop: 07/14/17 09:25 Miscellaneous (Clinical Monitoring) 1 ea MC DAILY PRN PRN Reason: RENAL Stop: 07/15/17 12:32 Miscellaneous (Probiotic Screen) 1 ea PRN PRN PRN Reason: PROTOCOL Stop: 07/16/17 09:33 Morphine Sulfate (Morphine) 2 mg IVP Q3H PRN PRN Reason: PAIN Stop: 07/13/17 19:46 Last Admin: 05/19/17 19:00 Dose: 2 mg Mupirocin (Bactroban Oint) 1 appl TP BID [facility] Stop: 07/14/17 16:59 Last Admin: 05/19/17 17:51 Dose: 1 appl Pantoprazole Sodium (Protonix) 40 mg GT DAILY [facility] Stop: 07/14/17 08:59 Last Admin: 05/20/17 11:06 Dose: 40 mg Rifaximin (Xifaxan) 550 mg GT BID [facility] Stop: 07/14/17 08:59 Last Admin: 05/20/17 11:09 Dose: 550 mg General: Alert, No acute distress, Moderate distress, Other (Altered) HEENT: Atraumatic, Mucous membr. moist/pink Neck: Supple, +2 carotid pulse wo bruit Cardiovascular: Regular rate, Normal S1, Normal S2, Other (afib on the monitor) Lungs: Clear to auscultation (rales bilaterally), Other (bilateral rales noted) Abdomen: Bowel sounds, Soft, Distended (mildly) Extremities: no Edema Neurological: Sensation intact Skin: no Rash Psych/Mental Status: Mood NL - Procedures Procedures: Procedures Procedure Code Date INSERT EMERGENCY AIRWAY 68647 05/13/17 INSERTION OF ENDOTRACHEAL AIRWAY INTO [place], VIA OPENING [id number] 05/13/17 RESPIRATORY VENTILATION, LESS THAN 24 CONSECUTIVE HOURS [id number] 05/13/17 VENT MGMT INPAT INIT DAY 17234 05/13/17 Assessment/Plan - Problem List Patient Problems: All Active Problems COUGH AND CONGESTION (Acute) - Assessment Assessment: NICK on CKD A LOC secondary to metabolic encephalopathy/medications Dehydration Essential hypertension with CKD COPD Chronic atrial fibrillation Status post CVA Aspiration pneumonia/dysphagia status post PEG Type 2 diabetes mellitus with CKD Acute Decompensated CHF Acute Resp Failure on Vent Bradycardia - Plan Plan: Lab - Result Diagrams 05/15/17 06:30 05/15/17 06:30 Current Medications Acetaminophen (Tylenol) 650 mg PO Q4HR PRN PRN Reason: Pain Or Fever above 101 Stop: 07/14/17 15:15 Last Admin: 05/15/17 16:21 Dose: 650 mg Albuterol Sulfate (Albuterol 2.5mg/3ml Neb Ud) 2.5 mg HHN Q6HRT [facility] Stop: 07/14/17 00:59 Last Admin: 05/15/17 16:05 Dose: 2.5 mg Atorvastatin Calcium (Lipitor) 10 mg GT HS YESSICA PRN Reason: Protocol Stop: 07/14/17 20:59 Carbidopa/Levodopa (Sinemet 25mg-100 Mg) 1 tab PO TID [facility] Stop: 07/14/17 08:59 Last Admin: 05/15/17 14:02 Dose: 1 tab Heparin Sodium (Porcine) (Heparin) 5,000 units SUBQ Q8H [facility] Stop: 07/14/17 14:59 Last Admin: 05/15/17 16:24 Dose: 5,000 units Sodium Chloride (Nacl 0.9%) 1,000 mls @ 60 mls/hr IV .[id number] [facility] Stop: 07/13/17 06:40 Last Admin: 05/14/17 17:16 Dose: 60 mls/hr Azithromycin 250 mg/ Sodium (Chloride) 250 mls @ 250 mls/hr IV Q24HR [facility] Stop: 05/20/17 08:59 Piperacillin Sod/Tazobactam (Sod 3.375 gm/ Sodium Chloride) 50 mls @ 100 mls/ hr IV Q8HR [facility] Stop: 07/14/17 15:14 Last Admin: 05/15/17 15:57 Dose: 100 mls/hr Insulin Aspart (Novolog Insulin Sliding Scale) 0 units SUBQ Q6HR [facility] PRN Reason: Protocol Stop: 07/14/17 00:00 Last Admin: 05/15/17 17:09 Dose: Not Given Insulin Detemir (Levemir Insulin) 14 units SUBQ DAILY [facility] PRN Reason: Protocol Stop: 07/15/17 08:59 Isosorbide Dinitrate (Isordil) 10 mg GT TID [facility] Stop: 07/14/17 08:59 Last Admin: 05/15/17 14:02 Dose: 10 mg Lactulose (Cephulac) 20 gm PO TID [facility] Stop: 07/14/17 08:59 Last Admin: 05/15/17 14:02 Dose: 20 gm Levetiracetam (Keppra) 250 mg NG BID [facility] Stop: 07/14/17 08:59 Last Admin: 05/15/17 16:23 Dose: 250 mg Metoprolol Tartrate (Lopressor) 37.5 mg GT BID [facility] Stop: 07/14/17 00:14 Last Admin: 05/15/17 16:22 Dose: 37.5 mg Miscellaneous (Vte Chemical Prophylaxis Screen/ Admission) 1 ea [facility] PRN PRN PRN Reason: PROTOCOL Stop: 07/14/17 09:25 Morphine Sulfate (Morphine) 2 mg IVP Q3H PRN PRN Reason: PAIN Stop: 07/13/17 19:46 Last Admin: 05/14/17 21:16 Dose: 2 mg Mupirocin (Bactroban Oint) 1 appl TP BID [facility] Stop: 07/14/17 16:59 Last Admin: 05/15/17 16:24 Dose: 1 appl Pantoprazole Sodium (Protonix) 40 mg GT DAILY [facility] Stop: 07/14/17 08:59 Last Admin: 05/15/17 08:36 Dose: 40 mg Rifaximin (Xifaxan) 550 mg GT BID [facility] Stop: 07/14/17 08:59 Last Admin: 05/15/17 16:23 Dose: 550 mg Kidney function worse with a BUN up to 83 and creatinine of 3.3 Sodium improved to 137 White count stable at 11.3, on Zosyn Chest x-ray suggestive of right effusion & CHF, and elevated BNP of 1770, will discontinue IV fluids and continue feedings Reviewed his meds Follow-up electrolytes start Maintenance Lasix w/ albumin infusion to improve intravascular volume Decrease nephro to 40 ml/hr Lab - Result Diagrams 05/19/17 04:50 05/19/17 04:50 addendum: Poor response to diuretics, w/ worsening CHF, BNP level developed resp failure, required intubation worsening cardio-renal syndrome discussed w/ grandson Pedro, about poor prognosis but still want to proceed w/ dialysis Nutritional Asmnt/Malnutr-PDOC - Dietary Evaluation Malnutrition Findings (Please click <Entered> for more info): Nutritional Asmnt/Malnutrition Start: 05/15/17 13: 56 Text: Status: Complete Freq: Document 05/15/17 13:56 GSUN (Rec: 05/15/17 14:18 GSTHALIA [email or web address]) Nutritional Asmnt/Malnutrition Patient General Information Nutritional Screening High Risk Screening Diagnosis PNA, NICK, icnreasing renal failure, CVA, CHF, DM Pertinent Medical Hx/Surgical Hx CVA, dementia, afib, CAD, HTN, dyslipidemia, epilepsy, GERD, aspiration PNA, DM, CKD, dehydration, C. diff, anemia D Subjective Information 86 year old male from SNF. Pt greeted RD. Pt is overall thin , moderate to severe wasting to chest, clavicles, extremities. Observed Glytrol running at 60ml/hr x20hrs during visit. Unable to obtain CBW due to bedscale not calibrated. Discussed with YVETTE Farooq regarding tube feeding recommendations. Current Diet Order/ Nutrition Support Glytrol at 60ml/hr x 20hrs, providing 1200kcal 54g protein Pertinent Medications Lipitor, Novolog, Levemir, Cephulac, Morphine, Protonix, Nacl 0.9% Pertinent Labs 05/13: potassium 5.3H, BUN 80H, creatinine 2.4H, glucose 103 05/15: potassium WNL, BUN 70H, creatinine 2.4H, glucose 239H, A1c 6.1H, phosphorus 5.4H Nutritional Hx/Data Height 1.68 m Height (Calculated Centimeters) 167.6 Current Weight (lbs) 65.771 kg Weight (Calculated Kilograms) 65.8 Weight (Calculated Grams) 00834.9 [place] Body Weight 142 Weight Status Approriate GI Symptoms Difficult in: Swallowing Cultural/Ethnic/Gnosticism Belief [facility]: Glucerna 1.2 at 85ml/hr x 20hrs, providing 2040kcal, promote weight gain. Skin Integrity/Comment: Gee 12. Skin intact. Estimated Nutritional Goals Calories/Kcals/Kg CBW 145lb/65.9kg Kcals Calculated 1976-2307kcal (30-35kcal/kg) Protein Calculated 46-92g (0.7-1.4g/kg, renal vs moderate to severe wasting) Fluid: ml Per MD (renal) Nutritional Problem 2. Problem Problem Impaired nutrient utilization related to Etiology NICK, hx CKD aeb Signs/Symptoms: "increasing renal failure," potaasum 5.3H on adm, BUN 70H, dairy hand 2.4H, phosphorus 5.4H 1. Problem Problem Inadequate intake from enteral nutrition infusion related to Etiology estimated nutritional needs aeb Signs/Symptoms: providing to meet 61% lower end kcal needs Intervention/Recommendation Comments 1. Recommend Novasource Renal at 50ml/hr x 20hrs, providing 2000kcal and 91g protein. Current order Glytrol at 60ml/ hr x 20hrs is only providing 1200kcal, pt recieves 2040kcal at [facility]. Expected Outcomes/Goals Expected Outcomes/Goals 1. Pt to meet at least 100% of estimated nutritional needs on tube feeding with tolerance .
[2017-05-20] MEDS ORDERED: Albumin 25% 25gm/100mL 25 GM/100 ML BTL IV ONE ×2 (14:00)
[2017-05-20] MEDS: Albuterol/Ipratropium Neb 3 ML AERS HHN SCH ×3 (15:19→22:16)
--- NOTE | 2017-05-20 15:55 | Consultation ---
Consult Note - Consult Note Service Date: 05/20/17 Consult Note: PHYSICIAN Consultation Note: Date of Admission: 05/13/17 Purpose of Consultation: Chief Complaint: History of Present Illness: Patient MARYURI SRINIVASAN was admitted to location Intensive Care Unit with PULMONARY INFILTRATE. Past Medical History: Diagnoses SEPSIS, UNSPECIFIED ORGANISM (05/13/17) ANEMIA, UNSPECIFIED (05/13/17) TYPE 2 DIABETES MELLITUS W DIABETIC CHRONIC KIDNEY DISEASE (05/13/17) HYPERLIPIDEMIA, UNSPECIFIED (05/13/17) DEHYDRATION (05/13/17) EPILEPSY, UNSP, NOT INTRACTABLE, WITHOUT STATUS EPILEPTICUS (05/13/17) METABOLIC ENCEPHALOPATHY (05/13/17) HYPERTENSIVE CHRONIC KIDNEY DISEASE W STG 1-4/UNSP CHR KDNY (05/13/17) ATHSCL HEART DISEASE OF [place] CORONARY ARTERY W/O ANG PCTRS (05/13/17) UNSPECIFIED ATRIAL FIBRILLATION (05/13/17) HEART FAILURE, UNSPECIFIED (05/13/17) CHRONIC OBSTRUCTIVE PULMONARY DISEASE, UNSPECIFIED (05/13/17) PNEUMONITIS DUE TO INHALATION OF FOOD AND VOMIT (05/13/17) ACUTE KIDNEY FAILURE, UNSPECIFIED (05/13/17) CHRONIC KIDNEY DISEASE, UNSPECIFIED (05/13/17) URINARY TRACT INFECTION, SITE NOT SPECIFIED (05/13/17) COUGH (05/13/17) PRSNL HX OF TIA (TIA), AND CEREB INFRC W/O RESID DEFICITS (05/13/17) Allergies Allergy/AdvReac Type Severity Reaction Status Date / Time No Known Allergies Allergy Verified 05/13/17 17:41 Vital Signs Temp 98.0 F 05/20/17 08:00 Pulse 86 05/20/17 12:00 Resp 24 05/20/17 08:00 BP 119/69 05/20/17 09:04 Pulse Ox 96 05/20/17 12:00 Intake & Output 05/19/17 05/20/17 05/20/17 18:59 06:59 18:59 Intake Total 1080 1170 Output Total 200 200 Balance 880 970 Weight (lbs) 65 kg 64.552 kg Intake: Intake, IV Amount 300 250 Albumin 25% 12.5gm/50mL 150 50 12.5 gm In 50 ml @ 50 mls /hr IV TID [facility] Rx#: [id number] Doxycycline Hyclate 100 100 100 mg In Dextrose 5% 100 ml @ 100 mls/hr IV Q12H [facility] Rx#:[id number] Piperacillin Sodium/ 50 100 Tazobact 2.25 gm In Sodium Chloride 0.9% 50 ml @ 100 mls/hr IV Q8HR [facility] Rx#:[id number] Tube Feeding 480 720 Other 300 200 Output: Urine 200 200 Other: # Bowel Movements 2 2 Stool Characteristics Liquid Soft Brown Laboratory Results - last 24 hr 05/19/17 05/19/17 05/20/17 13:54 17:59 00:06 WBC RBC Hgb Hct MCV MCH MCHC Differential RDW Plt Count MPV Band Neutrophils % Neutrophils (Manual) Lymphocytes Monocytes Eosinophils Platelet Estimate Specimen Source Sample Site pH pCO2 pO2 HCO3 Base Excess O2 Saturation [place] Test Vent Rate Inspired O2 Tidal Volume PEEP Pressure (ins/psv/peep) Critical Value Sodium Potassium Chloride Carbon Dioxide Anion Gap BUN Creatinine Est GFR ( Amer) Est GFR (Non-Af Amer) BUN/Creatinine Ratio Glucose POC Glucose 233 H 167 H 98 Calcium Total Bilirubin AST ALT Alkaline Phosphatase B-Natriuretic Peptide Total Protein Albumin Globulin Albumin/Globulin Ratio 05/20/17 05/20/17 05/20/17 04:50 04:50 04:50 WBC 14.7 H D RBC 2.90 L Hgb 8.2 L Hct 24.9 L MCV 86.1 MCH 28.2 MCHC Differential 32.7 RDW 15.6 Plt Count 239 MPV 8.8 Band Neutrophils % 2 Neutrophils (Manual) 89 H Lymphocytes 7 L Monocytes 1 L Eosinophils 1 Platelet Estimate ADEQUATE Specimen Source Sample Site pH pCO2 pO2 HCO3 Base Excess O2 Saturation [place] Test Vent Rate Inspired O2 Tidal Volume PEEP Pressure (ins/psv/peep) Critical Value Sodium 136 Potassium 4.8 Chloride 102 Carbon Dioxide 26.2 Anion Gap 12.6 BUN 95 H* Creatinine 4.1 H* Est GFR ( Amer) TNP Est GFR (Non-Af Amer) TNP BUN/Creatinine Ratio 23.2 Glucose 123 H POC Glucose Calcium 8.9 Total Bilirubin 0.4 AST 19 ALT 4 L Alkaline Phosphatase 62 B-Natriuretic Peptide 2470.0 H Total Protein 7.5 Albumin 3.5 L Globulin 4.0 Albumin/Globulin Ratio 0.9 L 05/20/17 05/20/17 05/20/17 05:49 09:00 11:35 WBC RBC Hgb Hct MCV MCH MCHC Differential RDW Plt Count MPV Band Neutrophils % Neutrophils (Manual) Lymphocytes Monocytes Eosinophils Platelet Estimate Specimen Source Arterial Arterial Sample Site RB RB pH 7.12 L* 7.16 L* pCO2 75.0 H* 71.0 H* pO2 255.0 H 79.0 L HCO3 20.2 21.2 Base Excess -6.2 L -4.6 L O2 Saturation 100.0 91.0 L [place] Test NA NA Vent Rate 12 12 Inspired O2 100 80 Tidal Volume 500 500 PEEP NA NA Pressure (ins/psv/peep) NA NA Critical Value CS CS Sodium Potassium Chloride Carbon Dioxide Anion Gap BUN Creatinine Est GFR ( Amer) Est GFR (Non-Af Amer) BUN/Creatinine Ratio Glucose POC Glucose 148 H Calcium Total Bilirubin AST ALT Alkaline Phosphatase B-Natriuretic Peptide Total Protein Albumin Globulin Albumin/Globulin Ratio Home Medication Medication Instructions Recorded Type Acetaminophen [Tylenol] 650 mg GT Q6HR PRN 05/13/17 History Apixaban [Eliquis] 5 mg PO BID 05/13/17 History Atorvastatin Calcium [Lipitor] 10 mg GT HS 05/13/17 History Carbidopa/Levodopa [Carbidopa-Levo 1 each PO TID 05/13/17 History 25-100 mg Odt] Diclofenac Sodium [Voltaren] 1 % TP BID 05/13/17 History Insulin Detemir [Levemir] 10 unit SQ DAILY 05/13/17 History Insulin Human Regular [NovoLIN R] 0 units SUBQ QID 05/13/17 History Isosorbide Dinitrate [Isordil] 10 mg GT TID 05/13/17 History Lactulose 20 gm GT TID 05/13/17 History Levetiracetam [Keppra] 250 mg GT BID 05/13/17 History Metoprolol Tartrate 37.5 mg GT BID 05/13/17 History Mineral Oil/Petrolatum,White 3.5 gm OP BID 05/13/17 History [Lubricant Eye Ointment] Oxycodone HCl/Acetaminophen 1 tab GT Q12H PRN 05/13/17 History [Percocet 325 mg-5 mg*] Pantoprazole Sodium 40 mg GT DAILY 05/13/17 History Rifaximin [Xifaxan] 550 mg PO BID 05/13/17 History Current Medications Generic Name Dose Route Start Last Admin Trade Name Freq PRN Reason Stop Dose Admin Acetaminophen 650 mg 05/15/17 15:16 05/17/17 11:11 Tylenol PO 07/14/17 15:15 650 mg Q4HR PRN Administration Pain Or Fever above 101 Albuterol/Ipratropium 3 ml 05/20/17 15:00 05/20/17 15:19 Duoneb Neb N 07/19/17 14:59 3 ml Q4HRT YESSICA Administration Atorvastatin Calcium 10 mg 05/15/17 21:00 05/19/17 22:01 Lipitor GT 07/14/17 20:59 10 mg HS YESSICA Administration Protocol Budesonide 0.5 mg 05/18/17 19:00 05/19/17 19:56 Pulmicort N 07/17/17 18:59 0.5 mg BIDRT YESSICA Administration Budesonide 1 mg 05/20/17 19:00 Pulmicort N 07/19/17 18:59 BIDRT YESSICA Carbidopa/Levodopa 1 tab 05/15/17 09:00 05/20/17 11:03 Sinemet 25mg-100 Mg PO 07/14/17 08:59 1 tab TID YESSICA Administration Furosemide 40 mg 05/19/17 09:00 05/20/17 09:00 Lasix IVP 07/18/17 08:59 40 mg DAILY YESSICA Administration Heparin Sodium (Porcine) 5,000 units 05/15/17 15:00 05/20/17 07:00 Heparin SUBQ 07/14/17 14:59 5,000 units Q8H YESSICA Administration Heparin Sodium (Porcine) 5,000 units 05/21/17 09:00 Heparin HD 05/21/17 23:00 YESSICA Piperacillin Sod/Tazobactam 50 mls @ 100 mls/hr 05/18/17 21:00 05/20/17 05:25 Sod 2.25 gm/ Sodium Chloride IV 07/17/17 20:59 Infused Q8HR YESSICA Infusion Albumin Human 12.5 gm in 50 mls @ 50 mls/hr 05/18/17 15:40 05/20/17 09:00 Albutein 25% IV 05/21/17 09:59 50 mls/hr TID YESSICA Administration Doxycycline Hyclate 100 mg/ 100 mls @ 100 mls/hr 05/18/17 22:00 05/20/17 09: 00 Dextrose IV 07/17/17 21:59 100 mls/hr Q12H YESSICA Administration Norepinephrine Bitartrate 8 mg 258 mls @ 0 mls/hr 05/20/17 12:30 05/20/17 12: 23 / Dextrose IV 07/19/17 12:29 8 mcg/min TITR PRN 15.48 mls/hr BP MAINTENANCE (PER PROTOCOL) Administration Protocol Titrate Phenylephrine HCl 10 mg/ 250 mls @ 0 mls/hr 05/20/17 13:00 Sodium Chloride IV 07/19/17 12:59 TITR YESSICA Protocol Per Protocol Albumin Human 25 gm in 100 mls @ 50 mls/hr 05/20/17 14:00 Albuminar 25% IV 05/20/17 15:59 X1 ONE Albumin Human 25 gm in 100 mls @ 50 mls/hr 05/20/17 14:00 Albuminar 25% IV 05/20/17 15:59 X1 ONE Insulin Aspart 0 units 05/15/17 00:00 05/20/17 06:33 Novolog Insulin Sliding Scale SUBQ 07/14/17 00:00 Not Given Q6HR YESSICA Protocol Insulin Detemir 20 units 05/19/17 09:00 05/20/17 09:00 Levemir Insulin SUBQ 07/18/17 08:59 20 units DAILY YESSICA Administration Protocol Ipratropium [place] 0.5 mg 05/18/17 15:00 05/20/17 04:46 Atrovent Neb 0.5mg/2.5ml HHN 07/17/17 14:59 0.5 mg Q4HRT YESSICA Administration Isosorbide Dinitrate 10 mg 05/15/17 09:00 05/20/17 09:00 Isordil GT 07/14/17 08:59 10 mg TID YESSICA Administration Lactobacillus Rhamnosus 1 each 05/18/17 09:00 05/20/17 11:04 Culturelle PO 07/17/17 08:59 1 each DAILY YESSICA Administration Lactulose 20 gm 05/15/17 09:00 05/19/17 20:52 Cephulac PO 07/14/17 08:59 20 gm TID YESSICA Administration Levetiracetam 250 mg 05/15/17 09:00 05/20/17 09:00 Keppra NG 07/14/17 08:59 250 mg BID YESSICA Administration Lorazepam 1 mg 05/20/17 09:03 Ativan IVP 07/19/17 09:02 Q4H PRN Agitation Protocol Metoprolol Tartrate 50 mg 05/19/17 09:00 05/20/17 09:00 Lopressor GT 07/18/17 08:59 50 mg Q8H YESSICA Administration Metoprolol Tartrate 25 mg 05/20/17 09:00 05/20/17 09:04 Lopressor PO 07/19/17 08:59 25 mg BID YESSICA Administration Miscellaneous 1 05/15/17 09:26 Vte Chemical Prophylaxis Screen/ Admission 07/14/17 09:25 PRN PRN PROTOCOL Miscellaneous 1 05/16/17 12:33 Clinical Monitoring 07/15/17 12:32 DAILY PRN RENAL Miscellaneous 1 05/17/17 09:34 Probiotic Screen 07/16/17 09:33 PRN PRN PROTOCOL Morphine Sulfate 2 mg 05/14/17 19:47 05/19/17 19:00 Morphine IVP 07/13/17 19:46 2 mg Q3H PRN Administration PAIN Mupirocin 1 appl 05/15/17 17:00 05/19/17 17:51 Bactroban Oint TP 07/14/17 16:59 1 appl BID YESSICA Administration Pantoprazole Sodium 40 mg 05/15/17 09:00 05/20/17 11:06 Protonix GT 07/14/17 08:59 40 mg DAILY YESSICA Administration Rifaximin 550 mg 05/15/17 09:00 05/20/17 11:09 Xifaxan GT 07/14/17 08:59 550 mg BID YESSICA Administration Review of Systems: A 12 point ROS was reviewed with the pertinent positive and negatives noted in the HPI. Social History Smoking Status Never smoker Physical Exam: General: HEENT: Cardio: Respiratory: Abdominal: Genital/Urinary: Extremities: Neurological: Assessment: on ventilator, non responsive, severely acidotic, markedly elevated BUN, creatinine and BNP Plan: Ronald placement in femoral vein as safest place to prevent complications except infection possibility Signed, Ananya Ruelas [id number]
--- NOTE | 2017-05-20 15:59 | Operative Report ---
Operative Report - Surgery Date of Surgery:: 05/20/17 Procedure:: insertion of Ronald catheter right femoral vein Indication for procedure:: CHF, acidosis and acute renal failure Procedure consent:: by family Anesthesia:: Anesthesiologist: Anesthesia: local Preoperative diagnosis:: acute renal failure, CHF Postoperative diagnosis:: same Description of Procedure:: The right groin was shaved, prepped with Chloraprep and draped. 1% Lidocaine was used. A size 18 needle was used to access the femoral vein. The guidewire was inserted, the dilator and then the dual-lumen Mahurkar catheter The patient tolerated the procedure well.
--- NOTE | 2017-05-20 16:09 | Diagnostic Imaging Report ---
Portable chest x-ray HISTORY: Shortness of breath, vascular catheter placement Compared with the exam performed earlier in the day (0958 hours), there has developed significant increase in bilateral pulmonary infiltrates along with development of bilateral pleural effusions. Findings may be associated pulmonary edema. Clinical correlation is needed. An endotracheal tube tip is approximately 2.5 cm above the matias. No vascular catheter is identified on this exam. IMPRESSION: 1. Worsening cardiopulmonary status with development of L2 severe bilateral infiltrates and pleural effusions. Changes may be related to pulmonary edema. Clinical correlation is needed. 2. Endotracheal tube placement as noted. 3. No vascular catheter identified at this time.
[2017-05-20] MEDS: Budesonide 0.5 Mg/2 mL Ud HHN SCH (19:21)
[2017-05-20] MEDS: Atorvastatin Calcium 10 MG TAB GT SCH (21:58)
[2017-05-21] MEDS: INSULIN ASPART SLIDING SCALE 100 UNITS/ML UNIT SUBQ SCH ×5 (00:50→23:53)
[2017-05-21] MEDS ORDERED: Dextrose 50% 50 mL Abboject IVP ONE (00:57)
[2017-05-21] MEDS: Dextrose 50% 50 mL Abboject IVP PRN ×3 (01:00→13:26)
[2017-05-21] MEDS: Albuterol/Ipratropium Neb 3 ML AERS HHN SCH ×6 (02:54→22:24)
[2017-05-21 05:24] LABS: RED CELL DISTRIBUTION WIDTH 15.3 % (11.5-20.0)
[2017-05-21 05:29] LABS: MEAN CELL VOLUME 84.1 fl (80-99); MEAN CORPUSCULAR HGB CONC 33.3 pg (28.0-36.0); MEAN PLATELET VOLUME 8.7 fl; PLATELET COUNT 186 Th/cmm (150-400); RED BLOOD COUNT 2.65 Mil/cmm (3.80-5.80)
[2017-05-21] MEDS: Piperacillin/Tazobact 2.25 gm in 0.9% NS 50 ML IV SCH ×3 (05:30→21:11)
[2017-05-21 05:44] LABS: ALB/GLOB RATIO 1.3 (1.0-1.8); ALKALINE PHOSPHATASE 38 U/L (34-104); ANION GAP 13.5 (7.0-16.0); BILIRUBIN,TOTAL 0.5 mg/dL (0.3-1.0); BUN - UREA NITROGEN 67 mg/dL (7-25); BUN/CREATININE RATIO 21.6; CALCIUM SERUM 8.6 mg/dL (8.6-10.3); CARBON DIOXIDE 24.1 mEq/L (21.0-31.0); CHLORIDE 104 mEq/L (98-107); CREATININE - SERUM 3.1 mg/dL (0.7-1.3); GLUCOSE 83 mg/dL (70-105); POTASSIUM SERUM 3.6 mEq/L (3.5-5.1); SGOT 27 U/L (13-39); SGPT/ALT 6 U/L (7-52); SODIUM SERUM 138 mEq/L (136-145)
[2017-05-21 05:47] LABS: HEMATOCRIT 22.3 % (39.0-49.0); HEMOGLOBIN 7.4 gm/dL (12.6-17.4); WHITE BLOOD COUNT 18.6 Th/cmm (4.8-10.8)
[2017-05-21] MEDS: Budesonide 0.5 Mg/2 mL Ud HHN SCH ×2 (07:40→19:20)
[2017-05-21] MEDS: Morphine Sulfate 2 mg/mL 1mL Syr IVP PRN ×2 (08:50→13:33)
[2017-05-21] MEDS: Albumin 25% 12.5gm/50mL 12.5 GM/50 ML BTL IV SCH (09:00)
[2017-05-21] MEDS: Insulin Detemir 100 units/mL 10mL Vial SUBQ SCH (09:00)
[2017-05-21 09:03] LABS: BAND NEUTROPHILE 32 % (0-10); METAMYELOCYTE 1 % (0-0); NEUTROPHILS 61 % (40-80); TOTAL CELLS COUNTED 100
[2017-05-21 09:04] LABS: ANISOCYTOSIS 1+; PLATELET ESTIMATE ADEQUATE (NORMAL); PLATELET MORPHOLOGY NORMAL (NORMAL)
[2017-05-21] MEDS: Lactobacillus Rhamnosus 10 Billion CFU Capsule PO SCH (09:21)
[2017-05-21] MEDS: Lactulose 10 Gm/15 mL 30mL UDC PO SCH ×3 (09:21→21:10)
[2017-05-21] MEDS: Pantoprazole 40 mg/Packet GT SCH (09:22)
[2017-05-21] MEDS: Levetiracetam 500 mg/5mL 5mL UDC NG SCH ×2 (09:23→17:10)
[2017-05-21 09:57] LABS: ABG SOURCE Arterial; ALLEN TEST YES; BE(B) 2.9 mEq/L (-3.0-3.0); HCO3 27.3 mEq/L (20.0-26.0); pH 7.52 (7.35-7.45)
[2017-05-21 09:58] LABS: FIO2 80; MECH RATE 24; MECH VT 500
--- NOTE | 2017-05-21 10:51 | Diagnostic Imaging Report ---
Portable chest x-ray HISTORY: Congestive heart failure Compared to prior exam of May 20, 2017, persistent yet decreased bilateral infiltrates consistent with decreased edema. Persistent bilateral pleural effusions. IMPRESSION: 1. Persisting yet decreased bilateral infiltrates consistent with a decrease in pulmonary edema associated with changes of congestive heart failure.
--- NOTE | 2017-05-21 12:13 | General Progress Note ---
Subjective - Review of Systems Service Date: 05/21/17 Subjective: sedated, on vent, nonverbal Objective - Results Result Diagrams: 05/21/17 04:46 05/21/17 04:46 Recent Labs: Laboratory Last Values WBC 18.6 Th/cmm (4.8-10.8) H D 05/21/17 04:46 RBC 2.65 Mil/cmm (3.80-5.80) L 05/21/17 04:46 Hgb 7.4 gm/dL (12.6-17.4) L* 05/21/17 04:46 Hct 22.3 % (39.0-49.0) L* D 05/21/17 04:46 MCV 84.1 fl (80-99) 05/21/17 04:46 MCH 28.0 pg (27.0-31.0) 05/21/17 04:46 MCHC Differential 33.3 pg (28.0-36.0) 05/21/17 04:46 RDW 15.3 % (11.5-20.0) 05/21/17 04:46 Plt Count 186 Th/cmm (150-400) D 05/21/17 04:46 MPV 8.7 fl 05/21/17 04:46 Neutrophils % 75.7 % (40.0-80.0) 05/18/17 07:33 Band Neutrophils % 32 % (0-10) H 05/21/17 04:46 Lymphocytes % 13.2 % (20.0-50.0) L 05/18/17 07:33 Monocytes % 8.3 % (2.0-10.0) 05/18/17 07:33 Eosinophils % 2.0 % (0.0-5.0) 05/18/17 07:33 Basophils % 0.8 % (0.0-2.0) 05/18/17 07:33 Neutrophils (Manual) 61 % (40-80) 05/21/17 04:46 Lymphocytes 6 % (20-50) L 05/21/17 04:46 Monocytes 1 % (2-10) L 05/20/17 04:50 Eosinophils 1 % (0-5) 05/20/17 04:50 Metamyelocytes 1 % (0-0) H 05/21/17 04:46 Platelet Estimate ADEQUATE (NORMAL) 05/21/17 04:46 Platelet Morphology NORMAL (NORMAL) 05/21/17 04:46 Anisocytosis 1+ 05/21/17 04:46 RBC Morph Micro Appear ABNORMAL (NORMAL) 05/21/17 04:46 Eos Smear Source URINE 05/14/17 18:00 Eos Smear Total Cells FEW EOSINOPHILS SEEN (NONE SEEN) 05/14/17 18:00 PT 11.9 SECONDS (9.5-11.5) H 05/13/17 17:42 INR 1.13 (0.5-1.4) 05/13/17 17:42 PTT (Actin FS) 30.5 SECONDS (26.0-38.0) 05/15/17 12:30 Specimen Source Arterial 05/21/17 09:30 Sample Site Left Radial 05/21/17 09:30 pH 7.52 (7.35-7.45) H 05/21/17 09:30 pCO2 31.0 mmHg (35.0-45.0) L 05/21/17 09:30 pO2 211.0 mmHg (80.0-100.0) H 05/21/17 09:30 HCO3 27.3 mEq/L (20.0-26.0) H 05/21/17 09:30 Base Excess 2.9 mEq/L (-3.0-3.0) 05/21/17 09:30 O2 Saturation 100.0 % (92.0-100.0) 05/21/17 09:30 Feliciano Test YES 05/21/17 09:30 Vent Rate 24 05/21/17 09:30 Inspired O2 80 05/21/17 09:30 Tidal Volume 500 05/21/17 09:30 PEEP NA 05/21/17 09:30 Pressure (ins/psv/peep) NA 05/21/17 09:30 Critical Value E.MCNEAL 05/21/17 09:30 Sodium 138 mEq/L (136-145) 05/21/17 04:46 Potassium 3.6 mEq/L (3.5-5.1) 05/21/17 04:46 Chloride 104 mEq/L (98-107) 05/21/17 04:46 Carbon Dioxide 24.1 mEq/L (21.0-31.0) 05/21/17 04:46 Anion Gap 13.5 (7.0-16.0) 05/21/17 04:46 BUN 67 mg/dL (7-25) H 05/21/17 04:46 Creatinine 3.1 mg/dL (0.7-1.3) H 05/21/17 04:46 Est GFR ( Amer) TNP 05/21/17 04:46 Est GFR (Non-Af Amer) TNP 05/21/17 04:46 BUN/Creatinine Ratio 21.6 05/21/17 04:46 Glucose 83 mg/dL (70-105) 05/21/17 04:46 POC Glucose 82 MG/DL (70 - 105) 05/21/17 10:01 Hemoglobin A1c % 6.1 % (4.0-6.0) H 05/15/17 06:30 Plasma/Ser Osmolality 301 mOsmol/kg (280-301) 05/14/17 18:20 Whole Bld Lactic Acid 1.58 mmol/L (0.60-1.99) 05/13/17 17:42 Uric Acid 7.7 mg/dL (4.4-7.6) H 05/15/17 06:30 Calcium 8.6 mg/dL (8.6-10.3) 05/21/17 04:46 Phosphorus 5.4 mg/dL (2.5-5.0) H 05/15/17 06:30 Magnesium 2.2 mg/dL (1.9-2.7) 05/15/17 06:30 Total Bilirubin 0.5 mg/dL (0.3-1.0) 05/21/17 04:46 Direct Bilirubin 0.09 mg/dL (0.0-0.2) 05/19/17 04:50 AST 27 U/L (13-39) 05/21/17 04:46 ALT 6 U/L (7-52) L 05/21/17 04:46 Alkaline Phosphatase 38 U/L (34-104) 05/21/17 04:46 Ammonia 65 umol/L (16-53) H 05/19/17 04:50 Creatine Kinase 35 U/L (30-223) 05/16/17 23:06 Troponin I 0.02 ng/mL (0.01-0.05) 05/16/17 23:06 B-Natriuretic Peptide 1550.0 pg/mL (5.0-100.0) H 05/21/17 04:46 Total Protein 6.7 gm/dL (6.0-8.3) 05/21/17 04:46 Albumin 3.8 gm/dL (4.2-5.5) L 05/21/17 04:46 Globulin 2.9 gm/dL 05/21/17 04:46 Albumin/Globulin Ratio 1.3 (1.0-1.8) 05/21/17 04:46 Prealbumin 14 mg/dL (9-32) 05/18/17 07:33 TSH 2.74 uIU/ml (0.34-5.60) 05/15/17 06:30 Urine Source CATH 05/13/17 19:50 Urine Color YELLOW 05/13/17 19:50 Urine Clarity CLOUDY (CLEAR) 05/13/17 19:50 Urine pH 6.0 05/13/17 19:50 Ur Specific [place] 1.015 (1.005-1.030) 05/13/17 19:50 Urine Protein 100 mg/dL (NEGATIVE) H 05/13/17 19:50 Urine Glucose (UA) NEGATIVE mg/dL (NEGATIVE) 05/13/17 19:50 Urine Ketones NEGATIVE mg/dL (NEGATIVE) 05/13/17 19:50 Urine Blood LARGE (NEGATIVE) H 05/13/17 19:50 Urine Nitrate NEGATIVE (NEGATIVE) 05/13/17 19:50 Urine Bilirubin NEGATIVE (NEGATIVE) 05/13/17 19:50 Urine Urobilinogen 0.2 E.U./dL (0.2 - 1.0) 05/13/17 19:50 Ur Leukocyte Esterase LARGE (NEGATIVE) H 05/13/17 19:50 Urine RBC 50-100 /hpf (0-5) H 05/13/17 19:50 Urine WBC >100 /hpf (0-5) H 05/13/17 19:50 Ur Epithelial Cells NONE SEEN /lpf (FEW) 05/13/17 19:50 Urine Bacteria NONE SEEN /hpf (NONE SEEN) 05/13/17 19:50 Ur Random Sodium 30 mmol/L 05/14/17 18:00 Urine Creatinine 36.4 mg/dl (Not Estab.) 05/14/17 18:00 Urine Microalbumin 363.5 ug/mL (Not Estab.) 05/14/17 18:00 Microalb/Creat Ratio 998.6 mg/g creat (0.0-30.0) H 05/14/17 18:00 Random Vancomycin 19.1 ug/mL (5.0-40.0) 05/19/17 04:50 Blood Type B POSITIVE 05/21/17 10:19 Antibody Screen NEGATIVE 05/21/17 10:19 Crossmatch See Detail 05/21/17 10:19 - Physical Exam Vitals and I&O: Vital Signs Temp 98.7 F 05/21/17 08:00 Pulse 94 05/21/17 10:00 Resp 18 05/21/17 10:00 BP 125/75 05/21/17 10:00 Pulse Ox 100 05/21/17 10:00 Intake & Output 05/20/17 05/21/17 05/21/17 18:59 06:59 18:59 Intake Total 400 246.854 100 Output Total 810 Balance -410 246.854 100 Weight (lbs) 62.596 kg 62.596 kg 62.596 kg Intake: Intake, IV Amount 300 246.854 Albumin 25% 12.5gm/50mL 50 12.5 gm In 50 ml @ 50 mls /hr IV TID [facility] Rx#: [id number] Doxycycline Hyclate 100 200 mg In Dextrose 5% 100 ml @ 100 mls/hr IV Q12H [facility] Rx#:[id number] Norepinephrine 8 mg In 196.854 Dextrose 5% 250 ml @ Titrate IV TITR PRN Rx#: [id number] Piperacillin Sodium/ 50 50 Tazobact 2.25 gm In Sodium Chloride 0.9% 50 ml @ 100 mls/hr IV Q8HR [facility] Rx#:[id number] Other 100 100 Output: Gastric Drainage 800 Urine 10 Hemodialysis 0 Other: # Bowel Movements 2 Stool Characteristics Soft Soft Soft Active Medications: Current Medications Acetaminophen (Tylenol) 650 mg PO Q4HR PRN PRN Reason: Pain Or Fever above 101 Stop: 07/14/17 15:15 Last Admin: 05/17/17 11:11 Dose: 650 mg Albuterol/Ipratropium (Duoneb Neb) 3 ml HHN Q4HRT [facility] Stop: 07/19/17 14:59 Last Admin: 05/21/17 07:40 Dose: 3 ml Atorvastatin Calcium (Lipitor) 10 mg GT HS YESSICA PRN Reason: Protocol Stop: 07/14/17 20:59 Last Admin: 05/20/17 21:58 Dose: 10 mg Budesonide (Pulmicort) 0.5 mg HHN BIDRT YESSICA Stop: 07/17/17 18:59 Last Admin: 05/21/17 07:40 Dose: 0.5 mg Budesonide (Pulmicort) 1 mg HHN BIDRT YESSICA Stop: 07/19/17 18:59 Carbidopa/Levodopa (Sinemet 25mg-100 Mg) 1 tab PO TID YESSICA Stop: 07/14/17 08:59 Last Admin: 05/21/17 09:22 Dose: 1 tab Dextrose (D50w) 50 ml IVP PRN PRN; Protocol PRN Reason: HYPOGLYCEMIA Stop: 07/20/17 00:54 Last Admin: 05/21/17 05:38 Dose: 50 ml Furosemide (Lasix) 40 mg IVP DAILY YESSICA Stop: 07/18/17 08:59 Last Admin: 05/21/17 09:21 Dose: 40 mg Heparin Sodium (Porcine) (Heparin) 5,000 units SUBQ Q8H [facility]ESS[facility] Stop: 07/14/17 14:59 Last Admin: 05/21/17 09:23 Dose: 5,000 units Heparin Sodium (Porcine) (Heparin) 5,000 units HD UD [facility] Stop: 05/21/17 23:00 Piperacillin Sod/Tazobactam (Sod 2.25 gm/ Sodium Chloride) 50 mls @ 100 mls/hr IV Q8HR [facility]ESS[facility] Stop: 07/17/17 20:59 Last Admin: 05/21/17 05:30 Dose: 50 mls/hr Doxycycline Hyclate 100 mg/ (Dextrose) 100 mls @ 100 mls/hr IV Q12H [facility]ESS[facility] Stop: 07/17/17 21:59 Last Admin: 05/20/17 22:00 Dose: 100 mls/hr Norepinephrine Bitartrate 8 mg (/ Dextrose) 258 mls @ 0 mls/hr IV TITR PRN; Protocol; Titrate PRN Reason: BP MAINTENANCE (PER PROTOCOL) Stop: 07/19/17 12:29 Last Admin: 05/21/17 01:06 Dose: 10 mcg/min, 19.35 mls/hr Phenylephrine HCl 10 mg/ (Sodium Chloride) 250 mls @ 0 mls/hr IV TITR YESSICA; Per Protocol PRN Reason: Protocol Stop: 07/19/17 12:59 Albumin Human (Albuminar 25%) 25 gm in 100 mls @ 50 mls/hr IV X1 ONE Stop: 05/21/17 19:34 Albumin Human (Albuminar 25%) 25 gm in 100 mls @ 50 mls/hr IV X1 ONE Stop: 05/21/17 19:37 Insulin Aspart (Novolog Insulin Sliding Scale) 0 units SUBQ Q6HR YESSICA PRN Reason: Protocol Stop: 07/14/17 00:00 Last Admin: 05/21/17 06:00 Dose: Not Given Insulin Detemir (Levemir Insulin) 20 units SUBQ DAILY YESSICA PRN Reason: Protocol Stop: 07/18/17 08:59 Last Admin: 05/20/17 09:00 Dose: 20 units Ipratropium [place] (Atrovent Neb 0.5mg/2.5ml) 0.5 mg HHN Q4HRT [facility] Stop: 07/17/17 14:59 Last Admin: 05/20/17 04:46 Dose: 0.5 mg Isosorbide Dinitrate (Isordil) 10 mg GT TID [facility] Stop: 07/14/17 08:59 Last Admin: 05/21/17 09:22 Dose: 10 mg Lactobacillus Rhamnosus (Culturelle) 1 each PO DAILY [facility] Stop: 07/17/17 08:59 Last Admin: 05/21/17 09:21 Dose: 1 each Lactulose (Cephulac) 20 gm PO TID [facility] Stop: 07/14/17 08:59 Last Admin: 05/21/17 09:21 Dose: 20 gm Levetiracetam (Keppra) 250 mg NG BID [facility] Stop: 07/14/17 08:59 Last Admin: 05/21/17 09:23 Dose: 250 mg Lorazepam (Ativan) 1 mg IVP Q4H PRN; Protocol PRN Reason: Agitation Stop: 07/19/17 09:02 Metoprolol Tartrate (Lopressor) 50 mg GT Q8H [facility] Stop: 07/18/17 08:59 Last Admin: 05/21/17 06:16 Dose: Not Given Metoprolol Tartrate (Lopressor) 25 mg PO BID [facility] Stop: 07/19/17 08:59 Last Admin: 05/21/17 09:21 Dose: 25 mg Miscellaneous (Vte Chemical Prophylaxis Screen/ Admission) 1 ea MC PRN PRN PRN Reason: PROTOCOL Stop: 07/14/17 09:25 Miscellaneous (Clinical Monitoring) 1 ea MC DAILY PRN PRN Reason: RENAL Stop: 07/15/17 12:32 Miscellaneous (Probiotic Screen) 1 ea MC PRN PRN PRN Reason: PROTOCOL Stop: 07/16/17 09:33 Morphine Sulfate (Morphine) 2 mg IVP Q3H PRN PRN Reason: PAIN Stop: 07/13/17 19:46 Last Admin: 05/21/17 08:50 Dose: 2 mg Mupirocin (Bactroban Oint) 1 appl TP BID YESSICA Stop: 07/14/17 16:59 Last Admin: 05/20/17 17:00 Dose: 1 appl Pantoprazole Sodium (Protonix) 40 mg GT DAILY YESSICA Stop: 07/14/17 08:59 Last Admin: 05/21/17 09:22 Dose: 40 mg General: Alert, No acute distress, Moderate distress, Other (Altered) HEENT: Atraumatic, Mucous membr. moist/pink Neck: Supple, +2 carotid pulse wo bruit Cardiovascular: Regular rate, Normal S1, Normal S2, Other (afib on the monitor) Lungs: Clear to auscultation (rales bilaterally), Other (bilateral rales noted) Abdomen: Bowel sounds, Soft, Distended (mildly) Extremities: no Edema Neurological: Sensation intact Skin: no Rash Psych/Mental Status: Mood NL - Procedures Procedures: Procedures Procedure Code Date INSERT EMERGENCY AIRWAY 77553 05/13/17 INSERTION OF ENDOTRACHEAL AIRWAY INTO [place], VIA OPENING [id number] 05/13/17 RESPIRATORY VENTILATION, LESS THAN 24 CONSECUTIVE HOURS [id number] 05/13/17 VENT MGMT INPAT INIT DAY 60239 05/13/17 Assessment/Plan - Problem List Patient Problems: All Active Problems COUGH AND CONGESTION (Acute) - Assessment Assessment: NICK on CKD, now on dialysis A LOC secondary to metabolic encephalopathy/medications Dehydration Essential hypertension with CKD COPD Chronic atrial fibrillation Status post CVA Aspiration pneumonia/dysphagia status post PEG Type 2 diabetes mellitus with CKD Acute Decompensated CHF Acute Resp Failure on Vent Bradycardia - Plan Plan: Lab - Result Diagrams 05/15/17 06:30 05/15/17 06:30 Current Medications Acetaminophen (Tylenol) 650 mg PO Q4HR PRN PRN Reason: Pain Or Fever above 101 Stop: 07/14/17 15:15 Last Admin: 05/15/17 16:21 Dose: 650 mg Albuterol Sulfate (Albuterol 2.5mg/3ml Neb Ud) 2.5 mg HHN Q6HRT [facility] Stop: 07/14/17 00:59 Last Admin: 05/15/17 16:05 Dose: 2.5 mg Atorvastatin Calcium (Lipitor) 10 mg GT HS YESSICA PRN Reason: Protocol Stop: 07/14/17 20:59 Carbidopa/Levodopa (Sinemet 25mg-100 Mg) 1 tab PO TID [facility] Stop: 07/14/17 08:59 Last Admin: 05/15/17 14:02 Dose: 1 tab Heparin Sodium (Porcine) (Heparin) 5,000 units SUBQ Q8H [facility] Stop: 07/14/17 14:59 Last Admin: 05/15/17 16:24 Dose: 5,000 units Sodium Chloride (Nacl 0.9%) 1,000 mls @ 60 mls/hr IV .[id number] [facility] Stop: 07/13/17 06:40 Last Admin: 05/14/17 17:16 Dose: 60 mls/hr Azithromycin 250 mg/ Sodium (Chloride) 250 mls @ 250 mls/hr IV Q24HR [facility] Stop: 05/20/17 08:59 Piperacillin Sod/Tazobactam (Sod 3.375 gm/ Sodium Chloride) 50 mls @ 100 mls/ hr IV Q8HR [facility] Stop: 07/14/17 15:14 Last Admin: 05/15/17 15:57 Dose: 100 mls/hr Insulin Aspart (Novolog Insulin Sliding Scale) 0 units SUBQ Q6HR [facility]ESSICA PRN Reason: Protocol Stop: 07/14/17 00:00 Last Admin: 05/15/17 17:09 Dose: Not Given Insulin Detemir (Levemir Insulin) 14 units SUBQ DAILY [facility]ESSICA PRN Reason: Protocol Stop: 07/15/17 08:59 Isosorbide Dinitrate (Isordil) 10 mg GT TID [facility] Stop: 07/14/17 08:59 Last Admin: 05/15/17 14:02 Dose: 10 mg Lactulose (Cephulac) 20 gm PO TID [facility] Stop: 07/14/17 08:59 Last Admin: 05/15/17 14:02 Dose: 20 gm Levetiracetam (Keppra) 250 mg NG BID [facility] Stop: 07/14/17 08:59 Last Admin: 05/15/17 16:23 Dose: 250 mg Metoprolol Tartrate (Lopressor) 37.5 mg GT BID [facility]ESS[facility] Stop: 07/14/17 00:14 Last Admin: 05/15/17 16:22 Dose: 37.5 mg Miscellaneous (Vte Chemical Prophylaxis Screen/ Admission) 1 ea [facility] PRN PRN PRN Reason: PROTOCOL Stop: 07/14/17 09:25 Morphine Sulfate (Morphine) 2 mg IVP Q3H PRN PRN Reason: PAIN Stop: 07/13/17 19:46 Last Admin: 05/14/17 21:16 Dose: 2 mg Mupirocin (Bactroban Oint) 1 appl TP BID [facility] Stop: 07/14/17 16:59 Last Admin: 05/15/17 16:24 Dose: 1 appl Pantoprazole Sodium (Protonix) 40 mg GT DAILY [facility] Stop: 07/14/17 08:59 Last Admin: 05/15/17 08:36 Dose: 40 mg Rifaximin (Xifaxan) 550 mg GT BID [facility]ESS[facility] Stop: 07/14/17 08:59 Last Admin: 05/15/17 16:23 Dose: 550 mg Kidney function worse with a BUN up to 67 and creatinine of 3.1 Sodium improved to 137 White count stable at 11.3, on Zosyn Chest x-ray improved pulm edema/chf, and elevated BNP of 1550, will discontinue IV fluids and continue feedings Reviewed his meds Follow-up electrolytes start Maintenance Lasix w/ albumin infusion to improve intravascular volume Decrease nephro to 40 ml/hr prognosis poor transfuse 2 U PRBC w/ dialysis Lab - Result Diagrams 05/19/17 04:50 05/19/17 04:50 addendum: Poor response to diuretics, w/ worsening CHF, BNP level developed resp failure, required intubation worsening cardio-renal syndrome discussed w/ grandson Pedro, about poor prognosis but still want to proceed w/ dialysis Nutritional Asmnt/Malnutr-PDOC - Dietary Evaluation Malnutrition Findings (Please click <Entered> for more info): Nutritional Asmnt/Malnutrition Start: 05/15/17 13: 56 Text: Status: Complete Freq: Document 05/15/17 13:56 DARON (Rec: 05/15/17 14:18 GSTHALIA [email or web address]) Nutritional Asmnt/Malnutrition Patient General Information Nutritional Screening High Risk Screening Diagnosis PNA, NICK, icnreasing renal failure, CVA, CHF, DM Pertinent Medical Hx/Surgical Hx CVA, dementia, afib, CAD, HTN, dyslipidemia, epilepsy, GERD, aspiration PNA, DM, CKD, dehydration, C. diff, anemia D Subjective Information 86 year old male from SNF. Pt greeted RD. Pt is overall thin , moderate to severe wasting to chest, clavicles, extremities. Observed Glytrol running at 60ml/hr x20hrs during visit. Unable to obtain CBW due to bedscale not calibrated. Discussed with YVETTE Farooq regarding tube feeding recommendations. Current Diet Order/ Nutrition Support Glytrol at 60ml/hr x 20hrs, providing 1200kcal 54g protein Pertinent Medications Lipitor, Novolog, Levemir, Cephulac, Morphine, Protonix, Nacl 0.9% Pertinent Labs 05/13: potassium 5.3H, BUN 80H, creatinine 2.4H, glucose 103 05/15: potassium WNL, BUN 70H, creatinine 2.4H, glucose 239H, A1c 6.1H, phosphorus 5.4H Nutritional Hx/Data Height 1.68 m Height (Calculated Centimeters) 167.6 Current Weight (lbs) 65.771 kg Weight (Calculated Kilograms) 65.8 Weight (Calculated Grams) 16789.9 [place] Body Weight 142 Weight Status Approriate GI Symptoms Difficult in: Swallowing Cultural/Ethnic/Confucianism Belief [facility]: Glucerna 1.2 at 85ml/hr x 20hrs, providing 2040kcal, promote weight gain. Skin Integrity/Comment: Gee 12. Skin intact. Estimated Nutritional Goals Calories/Kcals/Kg CBW 145lb/65.9kg Kcals Calculated 1976-7kcal (30-35kcal/kg) Protein Calculated 46-92g (0.7-1.4g/kg, renal vs moderate to severe wasting) Fluid: ml Per MD (renal) Nutritional Problem 2. 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 Problem Problem Inadequate intake from enteral nutrition infusion related to Etiology estimated nutritional needs aeb Signs/Symptoms: providing to meet 61% lower end kcal needs Intervention/Recommendation Comments 1. Recommend Novasource Renal at 50ml/hr x 20hrs, providing 2000kcal and 91g protein. Current order Glytrol at 60ml/ hr x 20hrs is only providing 1200kcal, pt recieves 2040kcal at [facility]. Expected Outcomes/Goals Expected Outcomes/Goals 1. Pt to meet at least 100% of estimated nutritional needs on tube feeding with tolerance .
[2017-05-21] MEDS ORDERED: Albumin 25% 25gm/100mL 25 GM/100 ML BTL IV ONE ×3 (12:16→17:38)
--- NOTE | 2017-05-21 12:55 | General Progress Note ---
Subjective - Review of Systems Service Date: 05/21/17 Subjective: Patient seen and examined in ICU seems little better opens eyes upon verbal command on vent s/p HD yday Objective - Results Result Diagrams: 05/21/17 04:46 05/21/17 04:46 Recent Labs: Laboratory Last Values WBC 18.6 Th/cmm (4.8-10.8) H D 05/21/17 04:46 RBC 2.65 Mil/cmm (3.80-5.80) L 05/21/17 04:46 Hgb 7.4 gm/dL (12.6-17.4) L* 05/21/17 04:46 Hct 22.3 % (39.0-49.0) L* D 05/21/17 04:46 MCV 84.1 fl (80-99) 05/21/17 04:46 MCH 28.0 pg (27.0-31.0) 05/21/17 04:46 MCHC Differential 33.3 pg (28.0-36.0) 05/21/17 04:46 RDW 15.3 % (11.5-20.0) 05/21/17 04:46 Plt Count 186 Th/cmm (150-400) D 05/21/17 04:46 MPV 8.7 fl 05/21/17 04:46 Neutrophils % 75.7 % (40.0-80.0) 05/18/17 07:33 Band Neutrophils % 32 % (0-10) H 05/21/17 04:46 Lymphocytes % 13.2 % (20.0-50.0) L 05/18/17 07:33 Monocytes % 8.3 % (2.0-10.0) 05/18/17 07:33 Eosinophils % 2.0 % (0.0-5.0) 05/18/17 07:33 Basophils % 0.8 % (0.0-2.0) 05/18/17 07:33 Neutrophils (Manual) 61 % (40-80) 05/21/17 04:46 Lymphocytes 6 % (20-50) L 05/21/17 04:46 Monocytes 1 % (2-10) L 05/20/17 04:50 Eosinophils 1 % (0-5) 05/20/17 04:50 Metamyelocytes 1 % (0-0) H 05/21/17 04:46 Platelet Estimate ADEQUATE (NORMAL) 05/21/17 04:46 Platelet Morphology NORMAL (NORMAL) 05/21/17 04:46 Anisocytosis 1+ 05/21/17 04:46 RBC Morph Micro Appear ABNORMAL (NORMAL) 05/21/17 04:46 Eos Smear Source URINE 05/14/17 18:00 Eos Smear Total Cells FEW EOSINOPHILS SEEN (NONE SEEN) 05/14/17 18:00 PT 11.9 SECONDS (9.5-11.5) H 05/13/17 17:42 INR 1.13 (0.5-1.4) 05/13/17 17:42 PTT (Actin FS) 30.5 SECONDS (26.0-38.0) 05/15/17 12:30 Specimen Source Arterial 05/21/17 09:30 Sample Site Left Radial 05/21/17 09:30 pH 7.52 (7.35-7.45) H 05/21/17 09:30 pCO2 31.0 mmHg (35.0-45.0) L 05/21/17 09:30 pO2 211.0 mmHg (80.0-100.0) H 05/21/17 09:30 HCO3 27.3 mEq/L (20.0-26.0) H 05/21/17 09:30 Base Excess 2.9 mEq/L (-3.0-3.0) 05/21/17 09:30 O2 Saturation 100.0 % (92.0-100.0) 05/21/17 09:30 Feliciano Test YES 05/21/17 09:30 Vent Rate 24 05/21/17 09:30 Inspired O2 80 05/21/17 09:30 Tidal Volume 500 05/21/17 09:30 PEEP NA 05/21/17 09:30 Pressure (ins/psv/peep) NA 05/21/17 09:30 Critical Value E.MCNEAL 05/21/17 09:30 Sodium 138 mEq/L (136-145) 05/21/17 04:46 Potassium 3.6 mEq/L (3.5-5.1) 05/21/17 04:46 Chloride 104 mEq/L (98-107) 05/21/17 04:46 Carbon Dioxide 24.1 mEq/L (21.0-31.0) 05/21/17 04:46 Anion Gap 13.5 (7.0-16.0) 05/21/17 04:46 BUN 67 mg/dL (7-25) H 05/21/17 04:46 Creatinine 3.1 mg/dL (0.7-1.3) H 05/21/17 04:46 Est GFR ( Amer) TNP 05/21/17 04:46 Est GFR (Non-Af Amer) TNP 05/21/17 04:46 BUN/Creatinine Ratio 21.6 05/21/17 04:46 Glucose 83 mg/dL (70-105) 05/21/17 04:46 POC Glucose 66 MG/DL (70 - 105) L 05/21/17 12:33 Hemoglobin A1c % 6.1 % (4.0-6.0) H 05/15/17 06:30 Plasma/Ser Osmolality 301 mOsmol/kg (280-301) 05/14/17 18:20 Whole Bld Lactic Acid 1.58 mmol/L (0.60-1.99) 05/13/17 17:42 Uric Acid 7.7 mg/dL (4.4-7.6) H 05/15/17 06:30 Calcium 8.6 mg/dL (8.6-10.3) 05/21/17 04:46 Phosphorus 5.4 mg/dL (2.5-5.0) H 05/15/17 06:30 Magnesium 2.2 mg/dL (1.9-2.7) 05/15/17 06:30 Total Bilirubin 0.5 mg/dL (0.3-1.0) 05/21/17 04:46 Direct Bilirubin 0.09 mg/dL (0.0-0.2) 05/19/17 04:50 AST 27 U/L (13-39) 05/21/17 04:46 ALT 6 U/L (7-52) L 05/21/17 04:46 Alkaline Phosphatase 38 U/L (34-104) 05/21/17 04:46 Ammonia 65 umol/L (16-53) H 05/19/17 04:50 Creatine Kinase 35 U/L (30-223) 05/16/17 23:06 Troponin I 0.02 ng/mL (0.01-0.05) 05/16/17 23:06 B-Natriuretic Peptide 1550.0 pg/mL (5.0-100.0) H 05/21/17 04:46 Total Protein 6.7 gm/dL (6.0-8.3) 05/21/17 04:46 Albumin 3.8 gm/dL (4.2-5.5) L 05/21/17 04:46 Globulin 2.9 gm/dL 05/21/17 04:46 Albumin/Globulin Ratio 1.3 (1.0-1.8) 05/21/17 04:46 Prealbumin 14 mg/dL (9-32) 05/18/17 07:33 TSH 2.74 uIU/ml (0.34-5.60) 05/15/17 06:30 Urine Source CATH 05/13/17 19:50 Urine Color YELLOW 05/13/17 19:50 Urine Clarity CLOUDY (CLEAR) 05/13/17 19:50 Urine pH 6.0 05/13/17 19:50 Ur Specific [place] 1.015 (1.005-1.030) 05/13/17 19:50 Urine Protein 100 mg/dL (NEGATIVE) H 05/13/17 19:50 Urine Glucose (UA) NEGATIVE mg/dL (NEGATIVE) 05/13/17 19:50 Urine Ketones NEGATIVE mg/dL (NEGATIVE) 05/13/17 19:50 Urine Blood LARGE (NEGATIVE) H 05/13/17 19:50 Urine Nitrate NEGATIVE (NEGATIVE) 05/13/17 19:50 Urine Bilirubin NEGATIVE (NEGATIVE) 05/13/17 19:50 Urine Urobilinogen 0.2 E.U./dL (0.2 - 1.0) 05/13/17 19:50 Ur Leukocyte Esterase LARGE (NEGATIVE) H 05/13/17 19:50 Urine RBC 50-100 /hpf (0-5) H 05/13/17 19:50 Urine WBC >100 /hpf (0-5) H 05/13/17 19:50 Ur Epithelial Cells NONE SEEN /lpf (FEW) 05/13/17 19:50 Urine Bacteria NONE SEEN /hpf (NONE SEEN) 05/13/17 19:50 Ur Random Sodium 30 mmol/L 05/14/17 18:00 Urine Creatinine 36.4 mg/dl (Not Estab.) 05/14/17 18:00 Urine Microalbumin 363.5 ug/mL (Not Estab.) 05/14/17 18:00 Microalb/Creat Ratio 998.6 mg/g creat (0.0-30.0) H 05/14/17 18:00 Random Vancomycin 19.1 ug/mL (5.0-40.0) 05/19/17 04:50 Blood Type B POSITIVE 05/21/17 10:19 Antibody Screen NEGATIVE 05/21/17 10:19 Crossmatch See Detail 05/21/17 10:19 - Physical Exam Vitals and I&O: Vital Signs Temp 98.7 F 05/21/17 08:00 Pulse 108 05/21/17 12:39 Resp 18 05/21/17 10:00 BP 125/75 05/21/17 10:00 Pulse Ox 100 05/21/17 12:39 Intake & Output 05/20/17 05/21/17 05/21/17 18:59 06:59 18:59 Intake Total 400 246.854 100 Output Total 810 Balance -410 246.854 100 Weight (lbs) 62.596 kg 62.596 kg 62.596 kg Intake: Intake, IV Amount 300 246.854 Albumin 25% 12.5gm/50mL 50 12.5 gm In 50 ml @ 50 mls /hr IV TID [facility] Rx#: [id number] Doxycycline Hyclate 100 200 mg In Dextrose 5% 100 ml @ 100 mls/hr IV Q12H [facility] Rx#:[id number] Norepinephrine 8 mg In 196.854 Dextrose 5% 250 ml @ Titrate IV TITR PRN Rx#: [id number] Piperacillin Sodium/ 50 50 Tazobact 2.25 gm In Sodium Chloride 0.9% 50 ml @ 100 mls/hr IV Q8HR [facility] Rx#:[id number] Other 100 100 Output: Gastric Drainage 800 Urine 10 Hemodialysis 0 Other: # Bowel Movements 2 Stool Characteristics Soft Soft Soft Active Medications: Current Medications Acetaminophen (Tylenol) 650 mg PO Q4HR PRN PRN Reason: Pain Or Fever above 101 Stop: 07/14/17 15:15 Last Admin: 05/17/17 11:11 Dose: 650 mg Albuterol/Ipratropium (Duoneb Neb) 3 ml HHN Q4HRT [facility] Stop: 07/19/17 14:59 Last Admin: 05/21/17 12:39 Dose: 3 ml Atorvastatin Calcium (Lipitor) 10 mg GT HS YESSICA PRN Reason: Protocol Stop: 07/14/17 20:59 Last Admin: 05/20/17 21:58 Dose: 10 mg Budesonide (Pulmicort) 0.5 mg HHN BIDRT YESSICA Stop: 07/17/17 18:59 Last Admin: 05/21/17 07:40 Dose: 0.5 mg Budesonide (Pulmicort) 1 mg HHN BIDRT YESSICA Stop: 07/19/17 18:59 Carbidopa/Levodopa (Sinemet 25mg-100 Mg) 1 tab PO TID YESSICA Stop: 07/14/17 08:59 Last Admin: 05/21/17 09:22 Dose: 1 tab Dextrose (D50w) 50 ml IVP PRN PRN; Protocol PRN Reason: HYPOGLYCEMIA Stop: 07/20/17 00:54 Last Admin: 05/21/17 05:38 Dose: 50 ml Furosemide (Lasix) 40 mg IVP DAILY YESSICA Stop: 07/18/17 08:59 Last Admin: 05/21/17 09:21 Dose: 40 mg Heparin Sodium (Porcine) (Heparin) 5,000 units SUBQ Q8H YESSICA Stop: 07/14/17 14:59 Last Admin: 05/21/17 09:23 Dose: 5,000 units Heparin Sodium (Porcine) (Heparin) 5,000 units HD UD YESSICA Stop: 05/21/17 23:00 Piperacillin Sod/Tazobactam (Sod 2.25 gm/ Sodium Chloride) 50 mls @ 100 mls/hr IV Q8HR YESSICA Stop: 07/17/17 20:59 Last Admin: 05/21/17 05:30 Dose: 50 mls/hr Doxycycline Hyclate 100 mg/ (Dextrose) 100 mls @ 100 mls/hr IV Q12H YESSICA Stop: 07/17/17 21:59 Last Admin: 05/20/17 22:00 Dose: 100 mls/hr Norepinephrine Bitartrate 8 mg (/ Dextrose) 258 mls @ 0 mls/hr IV TITR PRN; Protocol; Titrate PRN Reason: BP MAINTENANCE (PER PROTOCOL) Stop: 07/19/17 12:29 Last Admin: 05/21/17 01:06 Dose: 10 mcg/min, 19.35 mls/hr Phenylephrine HCl 10 mg/ (Sodium Chloride) 250 mls @ 0 mls/hr IV TITR YESSICA; Per Protocol PRN Reason: Protocol Stop: 07/19/17 12:59 Albumin Human (Albuminar 25%) 25 gm in 100 mls @ 50 mls/hr IV X1 ONE Stop: 05/21/17 19:34 Albumin Human (Albuminar 25%) 25 gm in 100 mls @ 50 mls/hr IV X1 ONE Stop: 05/21/17 19:37 Albumin Human (Albuminar 25%) 25 gm in 100 mls @ 50 mls/hr IV X1 ONE Stop: 05/22/17 14:14 Albumin Human (Albuminar 25%) 25 gm in 100 mls @ 50 mls/hr IV X1 ONE Stop: 05/21/17 14:15 Insulin Aspart (Novolog Insulin Sliding Scale) 0 units SUBQ Q6HR YESSICA PRN Reason: Protocol Stop: 07/14/17 00:00 Last Admin: 05/21/17 06:00 Dose: Not Given Insulin Detemir (Levemir Insulin) 20 units SUBQ DAILY [facility] PRN Reason: Protocol Stop: 07/18/17 08:59 Last Admin: 05/20/17 09:00 Dose: 20 units Ipratropium [place] (Atrovent Neb 0.5mg/2.5ml) 0.5 mg HHN Q4HRT YESSICA Stop: 07/17/17 14:59 Last Admin: 05/20/17 04:46 Dose: 0.5 mg Isosorbide Dinitrate (Isordil) 10 mg GT TID [facility] Stop: 07/14/17 08:59 Last Admin: 05/21/17 09:22 Dose: 10 mg Lactobacillus Rhamnosus (Culturelle) 1 each PO DAILY YESSICA Stop: 07/17/17 08:59 Last Admin: 05/21/17 09:21 Dose: 1 each Lactulose (Cephulac) 20 gm PO TID YESSICA Stop: 07/14/17 08:59 Last Admin: 05/21/17 09:21 Dose: 20 gm Levetiracetam (Keppra) 250 mg NG BID [facility] Stop: 07/14/17 08:59 Last Admin: 05/21/17 09:23 Dose: 250 mg Lorazepam (Ativan) 1 mg IVP Q4H PRN; Protocol PRN Reason: Agitation Stop: 07/19/17 09:02 Metoprolol Tartrate (Lopressor) 50 mg GT Q8H YESSICA Stop: 07/18/17 08:59 Last Admin: 05/21/17 06:16 Dose: Not Given Metoprolol Tartrate (Lopressor) 25 mg PO BID YESSICA Stop: 07/19/17 08:59 Last Admin: 05/21/17 09:21 Dose: 25 mg Miscellaneous (Vte Chemical Prophylaxis Screen/ Admission) 1 ea MC PRN PRN PRN Reason: PROTOCOL Stop: 07/14/17 09:25 Miscellaneous (Clinical Monitoring) 1 ea MC DAILY PRN PRN Reason: RENAL Stop: 07/15/17 12:32 Miscellaneous (Probiotic Screen) 1 ea MC PRN PRN PRN Reason: PROTOCOL Stop: 07/16/17 09:33 Morphine Sulfate (Morphine) 2 mg IVP Q3H PRN PRN Reason: PAIN Stop: 07/13/17 19:46 Last Admin: 05/21/17 08:50 Dose: 2 mg Mupirocin (Bactroban Oint) 1 appl TP BID YESSICA Stop: 07/14/17 16:59 Last Admin: 05/20/17 17:00 Dose: 1 appl Pantoprazole Sodium (Protonix) 40 mg GT DAILY YESSICA Stop: 07/14/17 08:59 Last Admin: 05/21/17 09:22 Dose: 40 mg General: Alert, No acute distress, Moderate distress, Other (Altered) HEENT: Atraumatic, Mucous membr. moist/pink Neck: Supple, +2 carotid pulse wo bruit Cardiovascular: Regular rate, Normal S1, Normal S2, Other (afib on the monitor) Lungs: Clear to auscultation (rales bilaterally), Other (bilateral rales better) Abdomen: Bowel sounds, Soft, Distended (mildly) Extremities: no Edema Neurological: Sensation intact Skin: no Rash Psych/Mental Status: Mood NL - Procedures Procedures: Procedures Procedure Code Date INSERT EMERGENCY AIRWAY 81024 05/13/17 INSERTION OF ENDOTRACHEAL AIRWAY INTO [place], VIA OPENING [id number] 05/13/17 RESPIRATORY VENTILATION, LESS THAN 24 CONSECUTIVE HOURS [id number] 05/13/17 VENT MGMT INPAT IN DAY 47214 05/13/17 Assessment/Plan - Problem List Patient Problems: All Active Problems COUGH AND CONGESTION (Acute) - Assessment Assessment: Current Active Problems Problem Status Onset COUGH AND CONGESTION Acute Anemia Acute respiratory failure on vent Altered mental state improving CHF little better Worsening Renal failure on HD Pneumonia Afib RVR UTI CAD 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 HTN renal disease Seizure disorder - Plan Plan: PRBC with HD HD today Continue vent support Continue antibiotics Off vasopressor Restart feeding at low rate since no residual per RN Case discussed with Nephrology Nutritional Asmnt/Malnutr-PDOC - Dietary Evaluation Malnutrition Findings (Please click <Entered> for more info): Nutritional Asmnt/Malnutrition Start: 05/15/17 13: 56 Text: Status: Complete Freq: Document 05/15/17 13:56 GSUN (Rec: 05/15/17 14:18 GSTHALIA [email or web address]) Nutritional Asmnt/Malnutrition Patient General Information Nutritional Screening High Risk Screening Diagnosis PNA, NICK, icnreasing renal failure, CVA, CHF, DM Pertinent Medical Hx/Surgical Hx CVA, dementia, afib, CAD, HTN, dyslipidemia, epilepsy, GERD, aspiration PNA, DM, CKD, dehydration, C. diff, anemia D Subjective Information 86 year old male from SNF. Pt greeted RD. Pt is overall thin , moderate to severe wasting to chest, clavicles, extremities. Observed Glytrol running at 60ml/hr x20hrs during visit. Unable to obtain CBW due to bedscale not calibrated. Discussed with YVETTE Farooq regarding tube feeding recommendations. Current Diet Order/ Nutrition Support Glytrol at 60ml/hr x 20hrs, providing 1200kcal 54g protein Pertinent Medications Lipitor, Novolog, Levemir, Cephulac, Morphine, Protonix, Nacl 0.9% Pertinent Labs 05/13: potassium 5.3H, BUN 80H, creatinine 2.4H, glucose 103 05/15: potassium WNL, BUN 70H, creatinine 2.4H, glucose 239H, A1c 6.1H, phosphorus 5.4H Nutritional Hx/Data Height 1.68 m Height (Calculated Centimeters) 167.6 Current Weight (lbs) 65.771 kg Weight (Calculated Kilograms) 65.8 Weight (Calculated Grams) 07567.9 [place] Body Weight 142 Weight Status Approriate GI Symptoms Difficult in: Swallowing Cultural/Ethnic/[employer] Belief [facility]: Glucerna 1.2 at 85ml/hr x 20hrs, providing 2040kcal, promote weight gain. Skin Integrity/Comment: Gee 12. Skin intact. Estimated Nutritional Goals Calories/Kcals/Kg CBW 145lb/65.9kg Kcals Calculated 1976-2307kcal (30-35kcal/kg) Protein Calculated 46-92g (0.7-1.4g/kg, renal vs moderate to severe wasting) Fluid: ml Per MD (renal) Nutritional Problem 2. Problem Problem Impaired nutrient utilization related to Etiology NICK, hx CKD aeb Signs/Symptoms: "increasing renal failure," potaasum 5.3H on adm, BUN 70H, reimbursement liaison 2.4H, phosphorus 5.4H 1. Problem Problem Inadequate intake from enteral nutrition infusion related to Etiology estimated nutritional needs aeb Signs/Symptoms: providing to meet 61% lower end kcal needs Intervention/Recommendation Comments 1. Recommend Novasource Renal at 50ml/hr x 20hrs, providing 2000kcal and 91g protein. Current order Glytrol at 60ml/ hr x 20hrs is only providing 1200kcal, pt recieves 2040kcal at [facility]. Expected Outcomes/Goals Expected Outcomes/Goals 1. Pt to meet at least 100% of estimated nutritional needs on tube feeding with tolerance .
[2017-05-21] MEDS ORDERED: D5-0.45NS 1,000 ML IV SCH ×2 (18:08)
[2017-05-21] MEDS: Atorvastatin Calcium 10 MG TAB GT SCH (21:08)
[2017-05-21] MEDS: Metoclopramide 5 mg/mL 2mL Vial IVP SCH (21:10)
--- NOTE | 2017-05-21 23:44 | Infectious Disease Prog Note ---
Infectious Disease Subjective - Review of Systems Service Date: 05/21/17 Subjective: No new change. No fever. Infectious Disease Objective - Results Result Diagrams: 05/21/17 04:46 05/21/17 04:46 Recent Labs: Laboratory Last Values WBC 18.6 Th/cmm (4.8-10.8) H D 05/21/17 04:46 RBC 2.65 Mil/cmm (3.80-5.80) L 05/21/17 04:46 Hgb 7.4 gm/dL (12.6-17.4) L* 05/21/17 04:46 Hct 22.3 % (39.0-49.0) L* D 05/21/17 04:46 MCV 84.1 fl (80-99) 05/21/17 04:46 MCH 28.0 pg (27.0-31.0) 05/21/17 04:46 MCHC Differential 33.3 pg (28.0-36.0) 05/21/17 04:46 RDW 15.3 % (11.5-20.0) 05/21/17 04:46 Plt Count 186 Th/cmm (150-400) D 05/21/17 04:46 MPV 8.7 fl 05/21/17 04:46 Neutrophils % 75.7 % (40.0-80.0) 05/18/17 07:33 Band Neutrophils % 32 % (0-10) H 05/21/17 04:46 Lymphocytes % 13.2 % (20.0-50.0) L 05/18/17 07:33 Monocytes % 8.3 % (2.0-10.0) 05/18/17 07:33 Eosinophils % 2.0 % (0.0-5.0) 05/18/17 07:33 Basophils % 0.8 % (0.0-2.0) 05/18/17 07:33 Neutrophils (Manual) 61 % (40-80) 05/21/17 04:46 Lymphocytes 6 % (20-50) L 05/21/17 04:46 Monocytes 1 % (2-10) L 05/20/17 04:50 Eosinophils 1 % (0-5) 05/20/17 04:50 Metamyelocytes 1 % (0-0) H 05/21/17 04:46 Platelet Estimate ADEQUATE (NORMAL) 05/21/17 04:46 Platelet Morphology NORMAL (NORMAL) 05/21/17 04:46 Anisocytosis 1+ 05/21/17 04:46 RBC Morph Micro Appear ABNORMAL (NORMAL) 05/21/17 04:46 Eos Smear Source URINE 05/14/17 18:00 Eos Smear Total Cells FEW EOSINOPHILS SEEN (NONE SEEN) 05/14/17 18:00 PT 11.9 SECONDS (9.5-11.5) H 05/13/17 17:42 INR 1.13 (0.5-1.4) 05/13/17 17:42 PTT (Actin FS) 30.5 SECONDS (26.0-38.0) 05/15/17 12:30 Specimen Source Arterial 05/21/17 09:30 Sample Site Left Radial 05/21/17 09:30 pH 7.52 (7.35-7.45) H 05/21/17 09:30 pCO2 31.0 mmHg (35.0-45.0) L 05/21/17 09:30 pO2 211.0 mmHg (80.0-100.0) H 05/21/17 09:30 HCO3 27.3 mEq/L (20.0-26.0) H 05/21/17 09:30 Base Excess 2.9 mEq/L (-3.0-3.0) 05/21/17 09:30 O2 Saturation 100.0 % (92.0-100.0) 05/21/17 09:30 Feliciano Test YES 05/21/17 09:30 Vent Rate 24 05/21/17 09:30 Inspired O2 80 05/21/17 09:30 Tidal Volume 500 05/21/17 09:30 PEEP NA 05/21/17 09:30 Pressure (ins/psv/peep) NA 05/21/17 09:30 Critical Value E.MCNEAL 05/21/17 09:30 Sodium 138 mEq/L (136-145) 05/21/17 04:46 Potassium 3.6 mEq/L (3.5-5.1) 05/21/17 04:46 Chloride 104 mEq/L (98-107) 05/21/17 04:46 Carbon Dioxide 24.1 mEq/L (21.0-31.0) 05/21/17 04:46 Anion Gap 13.5 (7.0-16.0) 05/21/17 04:46 BUN 67 mg/dL (7-25) H 05/21/17 04:46 Creatinine 3.1 mg/dL (0.7-1.3) H 05/21/17 04:46 Est GFR ( Amer) TNP 05/21/17 04:46 Est GFR (Non-Af Amer) TNP 05/21/17 04:46 BUN/Creatinine Ratio 21.6 05/21/17 04:46 Glucose 83 mg/dL (70-105) 05/21/17 04:46 POC Glucose 180 MG/DL (70 - 105) H 05/21/17 18:11 Hemoglobin A1c % 6.1 % (4.0-6.0) H 05/15/17 06:30 Plasma/Ser Osmolality 301 mOsmol/kg (280-301) 05/14/17 18:20 Whole Bld Lactic Acid 1.58 mmol/L (0.60-1.99) 05/13/17 17:42 Uric Acid 7.7 mg/dL (4.4-7.6) H 05/15/17 06:30 Calcium 8.6 mg/dL (8.6-10.3) 05/21/17 04:46 Phosphorus 5.4 mg/dL (2.5-5.0) H 05/15/17 06:30 Magnesium 2.2 mg/dL (1.9-2.7) 05/15/17 06:30 Total Bilirubin 0.5 mg/dL (0.3-1.0) 05/21/17 04:46 Direct Bilirubin 0.09 mg/dL (0.0-0.2) 05/19/17 04:50 AST 27 U/L (13-39) 05/21/17 04:46 ALT 6 U/L (7-52) L 05/21/17 04:46 Alkaline Phosphatase 38 U/L (34-104) 05/21/17 04:46 Ammonia 65 umol/L (16-53) H 05/19/17 04:50 Creatine Kinase 35 U/L (30-223) 05/16/17 23:06 Troponin I 0.02 ng/mL (0.01-0.05) 05/16/17 23:06 B-Natriuretic Peptide 1550.0 pg/mL (5.0-100.0) H 05/21/17 04:46 Total Protein 6.7 gm/dL (6.0-8.3) 05/21/17 04:46 Albumin 3.8 gm/dL (4.2-5.5) L 05/21/17 04:46 Globulin 2.9 gm/dL 05/21/17 04:46 Albumin/Globulin Ratio 1.3 (1.0-1.8) 05/21/17 04:46 Prealbumin 14 mg/dL (9-32) 05/18/17 07:33 TSH 2.74 uIU/ml (0.34-5.60) 05/15/17 06:30 Urine Source CATH 05/13/17 19:50 Urine Color YELLOW 05/13/17 19:50 Urine Clarity CLOUDY (CLEAR) 05/13/17 19:50 Urine pH 6.0 05/13/17 19:50 Ur Specific [place] 1.015 (1.005-1.030) 05/13/17 19:50 Urine Protein 100 mg/dL (NEGATIVE) H 05/13/17 19:50 Urine Glucose (UA) NEGATIVE mg/dL (NEGATIVE) 05/13/17 19:50 Urine Ketones NEGATIVE mg/dL (NEGATIVE) 05/13/17 19:50 Urine Blood LARGE (NEGATIVE) H 05/13/17 19:50 Urine Nitrate NEGATIVE (NEGATIVE) 05/13/17 19:50 Urine Bilirubin NEGATIVE (NEGATIVE) 05/13/17 19:50 Urine Urobilinogen 0.2 E.U./dL (0.2 - 1.0) 05/13/17 19:50 Ur Leukocyte Esterase LARGE (NEGATIVE) H 05/13/17 19:50 Urine RBC 50-100 /hpf (0-5) H 05/13/17 19:50 Urine WBC >100 /hpf (0-5) H 05/13/17 19:50 Ur Epithelial Cells NONE SEEN /lpf (FEW) 05/13/17 19:50 Urine Bacteria NONE SEEN /hpf (NONE SEEN) 05/13/17 19:50 Ur Random Sodium 30 mmol/L 05/14/17 18:00 Urine Creatinine 36.4 mg/dl (Not Estab.) 05/14/17 18:00 Urine Microalbumin 363.5 ug/mL (Not Estab.) 05/14/17 18:00 Microalb/Creat Ratio 998.6 mg/g creat (0.0-30.0) H 05/14/17 18:00 Random Vancomycin 19.1 ug/mL (5.0-40.0) 05/19/17 04:50 Blood Type B POSITIVE 05/21/17 10:19 Antibody Screen NEGATIVE 05/21/17 10:19 Crossmatch See Detail 05/21/17 10:19 - Physical Exam Vitals and I&O: Vital Signs Temp 99.0 F 05/21/17 21:00 Pulse 129 05/21/17 22:00 Resp 16 05/21/17 22:00 BP 136/72 05/21/17 22:00 Pulse Ox 96 05/21/17 22:00 Intake & Output 05/21/17 05/21/17 05/22/17 06:59 18:59 06:59 Intake Total 446.854 250 340 Output Total 1030 Balance 446.854 250 -690 Weight (lbs) 62.596 kg 62.596 kg 62.596 kg Intake: Intake, IV Amount 446.854 150 50 Albumin 25% 12.5gm/50mL 50 12.5 gm In 50 ml @ 50 mls /hr IV TID [facility] Rx#: [id number] Doxycycline Hyclate 100 100 100 mg In Dextrose 5% 100 ml @ 100 mls/hr IV Q12H [facility] Rx#:[id number] Norepinephrine 8 mg In 196.854 Dextrose 5% 250 ml @ Titrate IV TITR PRN Rx#: [id number] Piperacillin Sodium/ 100 50 50 Tazobact 2.25 gm In Sodium Chloride 0.9% 50 ml @ 100 mls/hr IV Q8HR [facility] Rx#:[id number] Tube Feeding 40 Blood Product 250 Other 100 Output: Urine 30 Hemodialysis 1000 Other: Stool Characteristics Soft Soft Soft Active Medications: Current Medications Acetaminophen (Tylenol) 650 mg PO Q4HR PRN PRN Reason: Pain Or Fever above 101 Stop: 07/14/17 15:15 Last Admin: 05/17/17 11:11 Dose: 650 mg Albuterol/Ipratropium (Duoneb Neb) 3 ml HHN Q4HRT [facility] Stop: 07/19/17 14:59 Last Admin: 05/21/17 22:24 Dose: 3 ml Atorvastatin Calcium (Lipitor) 10 mg GT HS YESSICA PRN Reason: Protocol Stop: 07/14/17 20:59 Last Admin: 05/21/17 21:08 Dose: 10 mg Budesonide (Pulmicort) 0.5 mg HHN BIDRT YESSICA Stop: 07/17/17 18:59 Last Admin: 05/21/17 19:20 Dose: 0.5 mg Budesonide (Pulmicort) 1 mg HHN BIDRT YESSICA Stop: 07/19/17 18:59 Carbidopa/Levodopa (Sinemet 25mg-100 Mg) 1 tab PO TID YESSICA Stop: 07/14/17 08:59 Last Admin: 05/21/17 21:09 Dose: 1 tab Dextrose (D50w) 50 ml IVP PRN PRN; Protocol PRN Reason: HYPOGLYCEMIA Stop: 07/20/17 00:54 Last Admin: 05/21/17 13:26 Dose: 50 ml Furosemide (Lasix) 40 mg IVP DAILY [facility] Stop: 07/18/17 08:59 Last Admin: 05/21/17 09:21 Dose: 40 mg Heparin Sodium (Porcine) (Heparin) 5,000 units SUBQ Q8H YESSICA Stop: 07/14/17 14:59 Last Admin: 05/21/17 22:38 Dose: 5,000 units Piperacillin Sod/Tazobactam (Sod 2.25 gm/ Sodium Chloride) 50 mls @ 100 mls/hr IV Q8HR YESSICA Stop: 07/17/17 20:59 Last Infusion: 05/21/17 22:11 Dose: Infused Doxycycline Hyclate 100 mg/ (Dextrose) 100 mls @ 100 mls/hr IV Q12H YESSICA Stop: 07/17/17 21:59 Last Admin: 05/21/17 22:32 Dose: 100 mls/hr Norepinephrine Bitartrate 8 mg (/ Dextrose) 258 mls @ 0 mls/hr IV TITR PRN; Protocol; Titrate PRN Reason: BP MAINTENANCE (PER PROTOCOL) Stop: 07/19/17 12:29 Last Admin: 05/21/17 01:06 Dose: 10 mcg/min, 19.35 mls/hr Phenylephrine HCl 10 mg/ (Sodium Chloride) 250 mls @ 0 mls/hr IV TITR YESSICA; Per Protocol PRN Reason: Protocol Stop: 07/19/17 12:59 Albumin Human (Albuminar 25%) 25 gm in 100 mls @ 50 mls/hr IV X1 ONE Stop: 05/22/17 15:59 Dextrose/Sodium Chloride (D5-0.45ns) 1,000 mls @ 40 mls/hr IV .Q24H YESSICA Stop: 07/20/17 18:07 Last Admin: 05/21/17 18:52 Dose: 40 mls/hr Insulin Aspart (Novolog Insulin Sliding Scale) 0 units SUBQ Q6HR YESSICA PRN Reason: Protocol Stop: 07/14/17 00:00 Last Admin: 05/21/17 18:45 Dose: Not Given Insulin Detemir (Levemir Insulin) 20 units SUBQ DAILY YESSICA PRN Reason: Protocol Stop: 07/18/17 08:59 Last Admin: 05/21/17 09:00 Dose: Not Given Ipratropium [place] (Atrovent Neb 0.5mg/2.5ml) 0.5 mg HHN Q4HRT [facility] Stop: 07/17/17 14:59 Last Admin: 05/20/17 04:46 Dose: 0.5 mg Isosorbide Dinitrate (Isordil) 10 mg GT TID [facility] Stop: 07/14/17 08:59 Last Admin: 05/21/17 21:09 Dose: 10 mg Lactobacillus Rhamnosus (Culturelle) 1 each PO DAILY [facility] Stop: 07/17/17 08:59 Last Admin: 05/21/17 09:21 Dose: 1 each Lactulose (Cephulac) 20 gm PO TID YESSICA Stop: 07/14/17 08:59 Last Admin: 05/21/17 21:10 Dose: 20 gm Levetiracetam (Keppra) 250 mg NG BID YESSICA Stop: 07/14/17 08:59 Last Admin: 05/21/17 17:10 Dose: 250 mg Lorazepam (Ativan) 1 mg IVP Q4H PRN; Protocol PRN Reason: Agitation Stop: 07/19/17 09:02 Metoclopramide HCl (Reglan) 5 mg IVP TID [facility] Stop: 07/20/17 20:59 Last Admin: 05/21/17 21:10 Dose: 5 mg Metoprolol Tartrate (Lopressor) 50 mg GT Q8H YESSICA Stop: 07/18/17 08:59 Last Admin: 05/21/17 17:12 Dose: Not Given Metoprolol Tartrate (Lopressor) 25 mg PO BID YESSICA Stop: 07/19/17 08:59 Last Admin: 05/21/17 17:06 Dose: Not Given Miscellaneous (Vte Chemical Prophylaxis Screen/ Admission) 1 ea MC PRN PRN PRN Reason: PROTOCOL Stop: 07/14/17 09:25 Miscellaneous (Clinical Monitoring) 1 ea MC DAILY PRN PRN Reason: RENAL Stop: 07/15/17 12:32 Miscellaneous (Probiotic Screen) 1 ea MC PRN PRN PRN Reason: PROTOCOL Stop: 07/16/17 09:33 Morphine Sulfate (Morphine) 2 mg IVP Q3H PRN PRN Reason: PAIN Stop: 07/13/17 19:46 Last Admin: 05/21/17 13:33 Dose: 2 mg Mupirocin (Bactroban Oint) 1 appl TP BID YESSICA Stop: 07/14/17 16:59 Last Admin: 05/21/17 17:10 Dose: 1 appl Pantoprazole Sodium (Protonix) 40 mg GT DAILY YESSICA Stop: 07/14/17 08:59 Last Admin: 05/21/17 09:22 Dose: 40 mg General: no acute distress HEENT: atraumatic, normocephalic Neck: supple, rigid, no thyromegaly Cardiovascular: S1S2, regular Lungs: clear to auscultation bilaterally Abdomen: soft, no tender, no distended Extremities: no cyanosis, no clubbing, no edema Neurological: awake, alert, oriented - Procedures Procedures: Procedures Procedure Code Date INSERT EMERGENCY AIRWAY 38587 05/13/17 INSERT TUNNELED CV CATH [id number] 05/13/17 INSERTION OF ENDOTRACHEAL AIRWAY INTO TRACHEA, VIA OPENING [id number] 05/13/17 INSERTION OF INFUSION DEV INTO R FEMOR VEIN, PERC APPROACH [id number] 05/13/17 RESPIRATORY VENTILATION, LESS THAN 24 CONSECUTIVE HOURS [id number] 05/13/17 VENT MGMT INPAT INIT DAY [id number] 05/13/17 Infectious Disease Assmt/Plan - Problem List Patient Problems: All Active Problems COUGH AND CONGESTION (Acute) - Assessment Assessment: 1. Pneuimonia.? Aspiration. 2. NICK. 3. CVA. 4. CHF. 5. CKD4. NICK mild rise in creatinine. 6. Afib with rapid ventricular response. Plan: Change zosyn and doxy. Start tygacil. Nutritional Asmnt/Malnutr-PDOC - Dietary Evaluation Malnutrition Findings (Please click <Entered> for more info): Nutritional Asmnt/Malnutrition Start: 05/15/17 13: 56 Text: Status: Complete Freq: Document 05/15/17 13:56 GSUN (Rec: 05/15/17 14:18 GSUN [id number]) Nutritional Asmnt/Malnutrition Patient General Information Nutritional Screening High Risk Screening Diagnosis PNA, NICK, icnreasing renal failure, CVA, CHF, DM Pertinent Medical Hx/Surgical Hx CVA, dementia, afib, CAD, HTN, dyslipidemia, epilepsy, GERD, aspiration PNA, DM, CKD, dehydration, C. diff, anemia D Subjective Information 86 year old male from SNF. Pt greeted RD. Pt is overall thin , moderate to severe wasting to chest, clavicles, extremities. Observed Glytrol running at 60ml/hr x20hrs during visit. Unable to obtain CBW due to bedscale not calibrated. Discussed with YVETTE Farooq regarding tube feeding recommendations. Current Diet Order/ Nutrition Support Glytrol at 60ml/hr x 20hrs, providing 1200kcal 54g protein Pertinent Medications Lipitor, Novolog, Levemir, Cephulac, Morphine, Protonix, Nacl 0.9% Pertinent Labs 05/13: potassium 5.3H, BUN 80H, creatinine 2.4H, glucose 103 05/15: potassium WNL, BUN 70H, creatinine 2.4H, glucose 239H, A1c 6.1H, phosphorus 5.4H Nutritional Hx/Data Height 1.68 m Height (Calculated Centimeters) 167.6 Current Weight (lbs) 65.771 kg Weight (Calculated Kilograms) 65.8 Weight (Calculated Grams) 40661.9 [place] Body Weight 142 Weight Status Approriate GI Symptoms Difficult in: Swallowing Cultural/Ethnic/[employer] [facility]: Glucerna 1.2 at 85ml/hr x 20hrs, providing 2040kcal, promote weight gain. Skin Integrity/Comment: Gee 12. Skin intact. Estimated Nutritional Goals Calories/Kcals/Kg CBW 145lb/65.9kg Kcals Calculated 1976-2306kcal (30-35kcal/kg) Protein Calculated 46-92g (0.7-1.4g/kg, renal vs moderate to severe wasting) Fluid: ml Per MD (renal) Nutritional Problem 2. Problem Problem Impaired nutrient utilization related to Etiology NICK, hx CKD aeb Signs/Symptoms: "increasing renal failure," potaasum 5.3H on adm, BUN 70H, classer 2.4H, phosphorus 5.4H 1. Problem Problem Inadequate intake from enteral nutrition infusion related to Etiology estimated nutritional needs aeb Signs/Symptoms: providing to meet 61% lower end kcal needs Intervention/Recommendation Comments 1. Recommend Novasource Renal at 50ml/hr x 20hrs, providing 2000kcal and 91g protein. Current order Glytrol at 60ml/ hr x 20hrs is only providing 1200kcal, pt recieves 2040kcal at [facility]. Expected Outcomes/Goals Expected Outcomes/Goals 1. Pt to meet at least 100% of estimated nutritional needs on tube feeding with tolerance .
[2017-05-22] MEDS: INSULIN ASPART SLIDING SCALE 100 UNITS/ML UNIT SUBQ SCH ×4 (00:05→19:51)
[2017-05-22] MEDS: Albuterol/Ipratropium Neb 3 ML AERS HHN SCH ×6 (03:14→22:43)
[2017-05-22] MEDS: Fluconazole 100mg/50mL 100 MG/50 ML BOTTLE IV SCH (04:37)
[2017-05-22 05:28] LABS: MEAN CELL VOLUME 84.9 fl (80-99); MEAN CORPUSCULAR HEMOGLOBIN 28.5 pg (27.0-31.0); MEAN CORPUSCULAR HGB CONC 33.6 pg (28.0-36.0); MEAN PLATELET VOLUME 8.7 fl; PLATELET COUNT 162 Th/cmm (150-400); RED BLOOD COUNT 2.76 Mil/cmm (3.80-5.80); RED CELL DISTRIBUTION WIDTH 15.3 % (11.5-20.0)
[2017-05-22 05:40] LABS: WHITE BLOOD COUNT 12.3 Th/cmm (4.8-10.8)
[2017-05-22 05:41] LABS: HEMATOCRIT 23.4 % (39.0-49.0); HEMOGLOBIN 7.9 gm/dL (12.6-17.4)
[2017-05-22 05:47] LABS: ALB/GLOB RATIO 1.3 (1.0-1.8); ALKALINE PHOSPHATASE 80 U/L (34-104); ANION GAP 13.7 (7.0-16.0); BILIRUBIN,TOTAL 0.7 mg/dL (0.3-1.0); BUN - UREA NITROGEN 56 mg/dL (7-25); CARBON DIOXIDE 25.1 mEq/L (21.0-31.0); CHLORIDE 101 mEq/L (98-107); CREATININE - SERUM 2.8 mg/dL (0.7-1.3); GLUCOSE 179 mg/dL (70-105); POTASSIUM SERUM 3.8 mEq/L (3.5-5.1); SGOT 36 U/L (13-39); SGPT/ALT 9 U/L (7-52); SODIUM SERUM 136 mEq/L (136-145)
[2017-05-22 08:09] LABS: HEP B CORE IGM Negative (Negative); HEP C ANTIBODY 0.1 s/co ratio (0.0-0.9)
[2017-05-22] MEDS: Budesonide 0.5 Mg/2 mL Ud HHN SCH ×2 (08:52→19:41)
[2017-05-22 09:13] LABS: BAND NEUTROPHILE 14 % (0-10); METAMYELOCYTE 1 % (0-0); NEUTROPHILS 78 % (40-80); TOTAL CELLS COUNTED 100
[2017-05-22 09:14] LABS: ANISOCYTOSIS 1+; PLATELET ESTIMATE ADEQUATE (NORMAL); PLATELET MORPHOLOGY NORMAL (NORMAL)
[2017-05-22] MEDS: Lactobacillus Rhamnosus 10 Billion CFU Capsule PO SCH (09:14)
[2017-05-22] MEDS: Lactulose 10 Gm/15 mL 30mL UDC PO SCH ×3 (09:17→21:05)
[2017-05-22] MEDS: Metoclopramide 5 mg/mL 2mL Vial IVP SCH ×3 (09:19→21:05)
[2017-05-22] MEDS: Insulin Detemir 100 units/mL 10mL Vial SUBQ SCH (09:36)
[2017-05-22] MEDS: Levetiracetam 500 mg/5mL 5mL UDC NG SCH ×2 (09:41→16:53)
[2017-05-22] MEDS: Pantoprazole 40 mg/Packet GT SCH (10:04)
--- NOTE | 2017-05-22 10:24 | Diagnostic Imaging Report ---
Exam: Portable chest x-ray upright HISTORY: Congestive heart failure Findings: Portable upright examination of the chest at 0800 hours reviewed. No prior studies available comparison. The study demonstrates congestive heart failure with superimposed right basilar infiltrate and effusion. The endotracheal tube terminates 7 cm above the matias. Mediastinal structures , midline bony thorax intact. IMPRESSION: 1. Congestive heart failure. 2. Right-sided infiltrate superimposed effusion. Follow-up examination recommended
[2017-05-22 10:37] LABS: ABG SOURCE Arterial; ALLEN TEST YES; BE(B) 0.6 mEq/L (-3.0-3.0); HCO3 25.4 mEq/L (20.0-26.0); pH 7.45 (7.35-7.45)
[2017-05-22 10:38] LABS: FIO2 50; MECH RATE 24; MECH VT 500
--- NOTE | 2017-05-22 11:07 | General Progress Note ---
Subjective - Review of Systems Events since last encounter: no fever no change Subjective: pt is sleeping pt is in no acute distress Objective - Results Result Diagrams: 05/22/17 04:44 05/22/17 04:44 Recent Labs: Laboratory Last Values WBC 12.3 Th/cmm (4.8-10.8) H D 05/22/17 04:44 RBC 2.76 Mil/cmm (3.80-5.80) L 05/22/17 04:44 Hgb 7.9 gm/dL (12.6-17.4) L* 05/22/17 04:44 Hct 23.4 % (39.0-49.0) L* 05/22/17 04:44 MCV 84.9 fl (80-99) 05/22/17 04:44 MCH 28.5 pg (27.0-31.0) 05/22/17 04:44 MCHC Differential 33.6 pg (28.0-36.0) 05/22/17 04:44 RDW 15.3 % (11.5-20.0) 05/22/17 04:44 Plt Count 162 Th/cmm (150-400) 05/22/17 04:44 MPV 8.7 fl 05/22/17 04:44 Neutrophils % 75.7 % (40.0-80.0) 05/18/17 07:33 Band Neutrophils % 14 % (0-10) H 05/22/17 04:44 Lymphocytes % 13.2 % (20.0-50.0) L 05/18/17 07:33 Monocytes % 8.3 % (2.0-10.0) 05/18/17 07:33 Eosinophils % 2.0 % (0.0-5.0) 05/18/17 07:33 Basophils % 0.8 % (0.0-2.0) 05/18/17 07:33 Neutrophils (Manual) 78 % (40-80) 05/22/17 04:44 Lymphocytes 4 % (20-50) L 05/22/17 04:44 Monocytes 3 % (2-10) 05/22/17 04:44 Eosinophils 1 % (0-5) 05/20/17 04:50 Metamyelocytes 1 % (0-0) H 05/22/17 04:44 Platelet Estimate ADEQUATE (NORMAL) 05/22/17 04:44 Platelet Morphology NORMAL (NORMAL) 05/22/17 04:44 Anisocytosis 1+ 05/22/17 04:44 RBC Morph Micro Appear ABNORMAL (NORMAL) 05/22/17 04:44 Eos Smear Source URINE 05/14/17 18:00 Eos Smear Total Cells FEW EOSINOPHILS SEEN (NONE SEEN) 05/14/17 18:00 PT 11.9 SECONDS (9.5-11.5) H 05/13/17 17:42 INR 1.13 (0.5-1.4) 05/13/17 17:42 PTT (Actin FS) 30.5 SECONDS (26.0-38.0) 05/15/17 12:30 Specimen Source Arterial 05/22/17 10:30 Sample Site Right Radial 05/22/17 10:30 pH 7.45 (7.35-7.45) 05/22/17 10:30 pCO2 35.0 mmHg (35.0-45.0) 05/22/17 10:30 pO2 109.0 mmHg (80.0-100.0) H 05/22/17 10:30 HCO3 25.4 mEq/L (20.0-26.0) 05/22/17 10:30 Base Excess 0.6 mEq/L (-3.0-3.0) 05/22/17 10:30 O2 Saturation 98.0 % (92.0-100.0) 05/22/17 10:30 [place] Test YES 05/22/17 10:30 Vent Rate 24 05/22/17 10:30 Inspired O2 50 05/22/17 10:30 Tidal Volume 500 05/22/17 10:30 PEEP NA 05/22/17 10:30 Pressure (ins/psv/peep) NA 05/22/17 10:30 Critical Value E.MCNEAL 05/22/17 10:30 Sodium 136 mEq/L (136-145) 05/22/17 04:44 Potassium 3.8 mEq/L (3.5-5.1) 05/22/17 04:44 Chloride 101 mEq/L (98-107) 05/22/17 04:44 Carbon Dioxide 25.1 mEq/L (21.0-31.0) 05/22/17 04:44 Anion Gap 13.7 (7.0-16.0) 05/22/17 04:44 BUN 56 mg/dL (7-25) H 05/22/17 04:44 Creatinine 2.8 mg/dL (0.7-1.3) H 05/22/17 04:44 Est GFR ( Amer) TNP 05/22/17 04:44 Est GFR (Non-Af Amer) TNP 05/22/17 04:44 BUN/Creatinine Ratio 20.0 05/22/17 04:44 Glucose 179 mg/dL (70-105) H 05/22/17 04:44 POC Glucose 192 MG/DL (70 - 105) H 05/22/17 05:43 Hemoglobin A1c % 6.1 % (4.0-6.0) H 05/15/17 06:30 Plasma/Ser Osmolality 301 mOsmol/kg (280-301) 05/14/17 18:20 Whole Bld Lactic Acid 1.58 mmol/L (0.60-1.99) 05/13/17 17:42 Uric Acid 7.7 mg/dL (4.4-7.6) H 05/15/17 06:30 Calcium 9.0 mg/dL (8.6-10.3) 05/22/17 04:44 Phosphorus 5.4 mg/dL (2.5-5.0) H 05/15/17 06:30 Magnesium 2.2 mg/dL (1.9-2.7) 05/15/17 06:30 Total Bilirubin 0.7 mg/dL (0.3-1.0) 05/22/17 04:44 Direct Bilirubin 0.09 mg/dL (0.0-0.2) 05/19/17 04:50 AST 36 U/L (13-39) 05/22/17 04:44 ALT 9 U/L (7-52) 05/22/17 04:44 Alkaline Phosphatase 80 U/L (34-104) 05/22/17 04:44 Ammonia 65 umol/L (16-53) H 05/19/17 04:50 Creatine Kinase 35 U/L (30-223) 05/16/17 23:06 Troponin I 0.02 ng/mL (0.01-0.05) 05/16/17 23:06 B-Natriuretic Peptide 1160.0 pg/mL (5.0-100.0) H 05/22/17 04:44 Total Protein 6.3 gm/dL (6.0-8.3) 05/22/17 04:44 Albumin 3.5 gm/dL (4.2-5.5) L 05/22/17 04:44 Globulin 2.8 gm/dL 05/22/17 04:44 Albumin/Globulin Ratio 1.3 (1.0-1.8) 05/22/17 04:44 Prealbumin 14 mg/dL (9-32) 05/18/17 07:33 TSH 2.74 uIU/ml (0.34-5.60) 05/15/17 06:30 Urine Source CATH 05/13/17 19:50 Urine Color YELLOW 05/13/17 19:50 Urine Clarity CLOUDY (CLEAR) 05/13/17 19:50 Urine pH 6.0 05/13/17 19:50 Ur Specific [place] 1.015 (1.005-1.030) 05/13/17 19:50 Urine Protein 100 mg/dL (NEGATIVE) H 05/13/17 19:50 Urine Glucose (UA) NEGATIVE mg/dL (NEGATIVE) 05/13/17 19:50 Urine Ketones NEGATIVE mg/dL (NEGATIVE) 05/13/17 19:50 Urine Blood LARGE (NEGATIVE) H 05/13/17 19:50 Urine Nitrate NEGATIVE (NEGATIVE) 05/13/17 19:50 Urine Bilirubin NEGATIVE (NEGATIVE) 05/13/17 19:50 Urine Urobilinogen 0.2 E.U./dL (0.2 - 1.0) 05/13/17 19:50 Ur Leukocyte Esterase LARGE (NEGATIVE) H 05/13/17 19:50 Urine RBC 50-100 /hpf (0-5) H 05/13/17 19:50 Urine WBC >100 /hpf (0-5) H 05/13/17 19:50 Ur Epithelial Cells NONE SEEN /lpf (FEW) 05/13/17 19:50 Urine Bacteria NONE SEEN /hpf (NONE SEEN) 05/13/17 19:50 Ur Random Sodium 30 mmol/L 05/14/17 18:00 Urine Creatinine 36.4 mg/dl (Not Estab.) 05/14/17 18:00 Urine Microalbumin 363.5 ug/mL (Not Estab.) 05/14/17 18:00 Microalb/Creat Ratio 998.6 mg/g creat (0.0-30.0) H 05/14/17 18:00 Random Vancomycin 19.1 ug/mL (5.0-40.0) 05/19/17 04:50 Hepatitis A IgM Ab Negative (Negative) 05/21/17 04:46 Hep Bs Antigen Negative (Negative) 05/21/17 04:46 Hep B Core IgM Ab Negative (Negative) 05/21/17 04:46 Hepatitis C Antibody 0.1 s/co ratio (0.0-0.9) 05/21/17 04:46 Blood Type B POSITIVE 05/21/17 10:19 Antibody Screen NEGATIVE 05/21/17 10:19 Crossmatch See Detail 05/21/17 10:19 - Physical Exam Vitals and I&O: Vital Signs Temp 99.2 F 05/22/17 09:00 Pulse 111 05/22/17 10:00 Resp 29 05/22/17 10:00 BP 143/77 05/22/17 10:00 Pulse Ox 97 05/22/17 10:00 Intake & Output 05/21/17 05/22/17 05/22/17 18:59 06:59 18:59 Intake Total 250 400 Output Total 1056 Balance 250 -656 Weight (lbs) 62.596 kg 62.596 kg Intake: Intake, IV Amount 150 50 Doxycycline Hyclate 100 100 mg In Dextrose 5% 100 ml @ 100 mls/hr IV Q12H [facility] Rx#:[id number] Piperacillin Sodium/ 50 50 Tazobact 2.25 gm In Sodium Chloride 0.9% 50 ml @ 100 mls/hr IV Q8HR [facility] Rx#:[id number] Tube Feeding 40 Blood Product 250 Other 100 60 Output: Urine 55 Hemodialysis 1000 Other 1 Other: Stool Characteristics Soft Soft Active Medications: Current Medications Acetaminophen (Tylenol) 650 mg PO Q4HR PRN PRN Reason: Pain Or Fever above 101 Stop: 07/14/17 15:15 Last Admin: 05/17/17 11:11 Dose: 650 mg Albuterol/Ipratropium (Duoneb Neb) 3 ml HHN Q4HRT [facility] Stop: 07/19/17 14:59 Last Admin: 05/22/17 08:52 Dose: 3 ml Atorvastatin Calcium (Lipitor) 10 mg GT HS YESSICA PRN Reason: Protocol Stop: 07/14/17 20:59 Last Admin: 05/21/17 21:08 Dose: 10 mg Budesonide (Pulmicort) 1 mg HHN BIDRT YESSICA Stop: 07/19/17 18:59 Carbidopa/Levodopa (Sinemet 25mg-100 Mg) 1 tab PO TID YESSICA Stop: 07/14/17 08:59 Last Admin: 05/22/17 09:16 Dose: 1 tab Dextrose (D50w) 50 ml IVP PRN PRN; Protocol PRN Reason: HYPOGLYCEMIA Stop: 07/20/17 00:54 Last Admin: 05/21/17 13:26 Dose: 50 ml Furosemide (Lasix) 40 mg IVP DAILY YESSICA Stop: 07/18/17 08:59 Last Admin: 05/22/17 09:14 Dose: 40 mg Heparin Sodium (Porcine) (Heparin) 5,000 units SUBQ Q8H YESSICA Stop: 07/14/17 14:59 Last Admin: 05/22/17 06:15 Dose: 5,000 units Norepinephrine Bitartrate 8 mg (/ Dextrose) 258 mls @ 0 mls/hr IV TITR PRN; Protocol; Titrate PRN Reason: BP MAINTENANCE (PER PROTOCOL) Stop: 07/19/17 12:29 Last Admin: 05/21/17 01:06 Dose: 10 mcg/min, 19.35 mls/hr Phenylephrine HCl 10 mg/ (Sodium Chloride) 250 mls @ 0 mls/hr IV TITR YESSICA; Per Protocol PRN Reason: Protocol Stop: 07/19/17 12:59 Albumin Human (Albuminar 25%) 25 gm in 100 mls @ 50 mls/hr IV X1 ONE Stop: 05/22/17 15:59 Dextrose/Sodium Chloride (D5-0.45ns) 1,000 mls @ 40 mls/hr IV .Q24H YESSICA Stop: 07/20/17 18:07 Last Admin: 05/21/17 18:52 Dose: 40 mls/hr Tigecycline 50 mg/ Sodium (Chloride) 100 mls @ 100 mls/hr IV Q12H YESSICA Stop: 07/21/17 18:59 Fluconazole (Diflucan) 100 mg in 50 mls @ 50 mls/hr IV Q24HR YESSCIA Stop: 07/21/17 04:59 Last Admin: 05/22/17 04:37 Dose: 50 mls/hr Amino Acids/Electrolytes (Procalamine) 1,000 mls @ 40 mls/hr IV .Q24H [facility] Stop: 07/21/17 15:59 Insulin Aspart (Novolog Insulin Sliding Scale) 0 units SUBQ Q6HR YESSICA PRN Reason: Protocol Stop: 07/14/17 00:00 Last Admin: 05/22/17 05:44 Dose: Not Given Insulin Detemir (Levemir Insulin) 20 units SUBQ DAILY [facility] PRN Reason: Protocol Stop: 07/18/17 08:59 Last Admin: 05/22/17 09:36 Dose: 20 units Ipratropium [place] (Atrovent Neb 0.5mg/2.5ml) 0.5 mg HHN Q4HRT [facility] Stop: 07/17/17 14:59 Last Admin: 05/20/17 04:46 Dose: 0.5 mg Isosorbide Dinitrate (Isordil) 10 mg GT TID [facility] Stop: 07/14/17 08:59 Last Admin: 05/22/17 09:15 Dose: 10 mg Lactobacillus Rhamnosus (Culturelle) 1 each PO DAILY [facility] Stop: 07/17/17 08:59 Last Admin: 05/22/17 09:14 Dose: 1 each Lactulose (Cephulac) 20 gm PO TID [facility] Stop: 07/14/17 08:59 Last Admin: 05/22/17 09:17 Dose: 20 gm Levetiracetam (Keppra) 250 mg NG BID [facility] Stop: 07/14/17 08:59 Last Admin: 05/22/17 09:41 Dose: 250 mg Lorazepam (Ativan) 1 mg IVP Q4H PRN; Protocol PRN Reason: Agitation Stop: 07/19/17 09:02 Metoclopramide HCl (Reglan) 5 mg IVP TID [facility] Stop: 07/20/17 20:59 Last Admin: 05/22/17 09:19 Dose: 5 mg Metoprolol Tartrate (Lopressor) 50 mg GT Q8H [facility] Stop: 07/18/17 08:59 Last Admin: 05/22/17 01:20 Dose: Not Given Metoprolol Tartrate (Lopressor) 25 mg PO BID [facility] Stop: 07/19/17 08:59 Last Admin: 05/22/17 09:17 Dose: 25 mg Miscellaneous (Vte Chemical Prophylaxis Screen/ Admission) 1 ea [facility] PRN PRN PRN Reason: PROTOCOL Stop: 07/14/17 09:25 Miscellaneous (Clinical Monitoring) 1 ea [facility] DAILY PRN PRN Reason: RENAL Stop: 07/15/17 12:32 Miscellaneous (Probiotic Screen) 1 ea [facility] PRN PRN PRN Reason: PROTOCOL Stop: 07/16/17 09:33 Miscellaneous (Ppn Per Pharmacy) 1 ea [facility] PRN PRN PRN Reason: PROTOCOL Stop: 07/21/17 10:23 Mupirocin (Bactroban Oint) 1 appl TP BID YESSICA Stop: 07/14/17 16:59 Last Admin: 05/22/17 10:04 Dose: 1 appl Pantoprazole Sodium (Protonix) 40 mg GT DAILY YESSICA Stop: 07/14/17 08:59 Last Admin: 05/22/17 10:04 Dose: 40 mg General: Alert, No acute distress, Moderate distress, Other (Altered) HEENT: Atraumatic, Mucous membr. moist/pink Neck: Supple, +2 carotid pulse wo bruit Cardiovascular: Regular rate, Normal S1, Normal S2, Other (afib on the monitor) Lungs: Clear to auscultation (rales bilaterally), Other (bilateral rales better) Abdomen: Bowel sounds, Soft, Distended (mildly) Extremities: no Edema Neurological: Sensation intact Skin: no Rash Psych/Mental Status: Mood NL - Procedures Procedures: Procedures Procedure Code Date INSERT EMERGENCY AIRWAY 30953 05/13/17 INSERT TUNNELED CV CATH [id number] 05/13/17 INSERTION OF ENDOTRACHEAL AIRWAY INTO TRACHEA, VIA OPENING [id number] 05/13/17 INSERTION OF INFUSION DEV INTO R FEMOR VEIN, PERC APPROACH [id number] 05/13/17 RESPIRATORY VENTILATION, LESS THAN 24 CONSECUTIVE HOURS [id number] 05/13/17 VENT MGMT INPAT INIT DAY 49774 05/13/17 Assessment/Plan - Problem List Patient Problems: All Active Problems COUGH AND CONGESTION (Acute) - Assessment Assessment: Current Active Problems Problem Status Onset COUGH AND CONGESTION Acute sob pnumonia r/o sepsis incresing renal failure h/o cva h/o atrail fib dm nick h/o c diff uti anemia - Plan Plan: iv fluids renal consult id consult Nutritional Asmnt/Malnutr-PDOC - Dietary Evaluation Malnutrition Findings (Please click <Entered> for more info): Nutritional Asmnt/Malnutrition Start: 05/15/17 13: 56 Text: Status: Complete Freq: Document 05/15/17 13:56 DARON (Rec: 05/15/17 14:18 GSTHALIA [id number]) Nutritional Asmnt/Malnutrition Patient General Information Nutritional Screening High Risk Screening Diagnosis PNA, NICK, icnreasing renal failure, CVA, CHF, DM Pertinent Medical Hx/Surgical Hx CVA, dementia, afib, CAD, HTN, dyslipidemia, epilepsy, GERD, aspiration PNA, DM, CKD, dehydration, C. diff, anemia D Subjective Information 86 year old male from SNF. Pt greeted RD. Pt is overall thin , moderate to severe wasting to chest, clavicles, extremities. Observed Glytrol running at 60ml/hr x20hrs during visit. Unable to obtain CBW due to bedscale not calibrated. Discussed with YVETTE Farooq regarding tube feeding recommendations. Current Diet Order/ Nutrition Support Glytrol at 60ml/hr x 20hrs, providing 1200kcal 54g protein Pertinent Medications Lipitor, Novolog, Levemir, Cephulac, Morphine, Protonix, Nacl 0.9% Pertinent Labs 05/13: potassium 5.3H, BUN 80H, creatinine 2.4H, glucose 103 05/15: potassium WNL, BUN 70H, creatinine 2.4H, glucose 239H, A1c 6.1H, phosphorus 5.4H Nutritional Hx/Data Height 1.68 m Height (Calculated Centimeters) 167.6 Current Weight (lbs) 65.771 kg Weight (Calculated Kilograms) 65.8 Weight (Calculated Grams) 73926.9 [place] Body Weight 142 Weight Status Approriate GI Symptoms Difficult in: Swallowing Cultural/Ethnic/[employer] [place] [facility]: Glucerna 1.2 at 85ml/hr x 20hrs, providing 2040kcal, promote weight gain. Skin Integrity/Comment: Gee 12. Skin intact. Estimated Nutritional Goals Calories/Kcals/Kg CBW 145lb/65.9kg Kcals Calculated 1976-2307kcal (30-35kcal/kg) Protein Calculated 46-92g (0.7-1.4g/kg, renal vs moderate to severe wasting) Fluid: ml Per MD (renal) Nutritional Problem 2. Problem Problem Impaired nutrient utilization related to Etiology NICK, hx CKD aeb Signs/Symptoms: "increasing renal failure," potaasum 5.3H on adm, BUN 70H, wax pumper 2.4H, phosphorus 5.4H 1. Problem Problem Inadequate intake from enteral nutrition infusion related to Etiology estimated nutritional needs aeb Signs/Symptoms: providing to meet 61% lower end kcal needs Intervention/Recommendation Comments 1. Recommend Novasource Renal at 50ml/hr x 20hrs, providing 2000kcal and 91g protein. Current order Glytrol at 60ml/ hr x 20hrs is only providing 1200kcal, pt recieves 2040kcal at [facility]. Expected Outcomes/Goals Expected Outcomes/Goals 1. Pt to meet at least 100% of estimated nutritional needs on tube feeding with tolerance .
--- NOTE | 2017-05-22 13:10 | General Progress Note ---
Subjective - Review of Systems Service Date: 05/22/17 Subjective: more alert, interacting, on vent, nonverbal Objective - Results Result Diagrams: 05/22/17 04:44 05/22/17 04:44 Recent Labs: Laboratory Last Values WBC 12.3 Th/cmm (4.8-10.8) H D 05/22/17 04:44 RBC 2.76 Mil/cmm (3.80-5.80) L 05/22/17 04:44 Hgb 7.9 gm/dL (12.6-17.4) L* 05/22/17 04:44 Hct 23.4 % (39.0-49.0) L* 05/22/17 04:44 MCV 84.9 fl (80-99) 05/22/17 04:44 MCH 28.5 pg (27.0-31.0) 05/22/17 04:44 MCHC Differential 33.6 pg (28.0-36.0) 05/22/17 04:44 RDW 15.3 % (11.5-20.0) 05/22/17 04:44 Plt Count 162 Th/cmm (150-400) 05/22/17 04:44 MPV 8.7 fl 05/22/17 04:44 Neutrophils % 75.7 % (40.0-80.0) 05/18/17 07:33 Band Neutrophils % 14 % (0-10) H 05/22/17 04:44 Lymphocytes % 13.2 % (20.0-50.0) L 05/18/17 07:33 Monocytes % 8.3 % (2.0-10.0) 05/18/17 07:33 Eosinophils % 2.0 % (0.0-5.0) 05/18/17 07:33 Basophils % 0.8 % (0.0-2.0) 05/18/17 07:33 Neutrophils (Manual) 78 % (40-80) 05/22/17 04:44 Lymphocytes 4 % (20-50) L 05/22/17 04:44 Monocytes 3 % (2-10) 05/22/17 04:44 Eosinophils 1 % (0-5) 05/20/17 04:50 Metamyelocytes 1 % (0-0) H 05/22/17 04:44 Platelet Estimate ADEQUATE (NORMAL) 05/22/17 04:44 Platelet Morphology NORMAL (NORMAL) 05/22/17 04:44 Anisocytosis 1+ 05/22/17 04:44 RBC Morph Micro Appear ABNORMAL (NORMAL) 05/22/17 04:44 Eos Smear Source URINE 05/14/17 18:00 Eos Smear Total Cells FEW EOSINOPHILS SEEN (NONE SEEN) 05/14/17 18:00 PT 11.9 SECONDS (9.5-11.5) H 05/13/17 17:42 INR 1.13 (0.5-1.4) 05/13/17 17:42 PTT (Actin FS) 30.5 SECONDS (26.0-38.0) 05/15/17 12:30 Specimen Source Arterial 05/22/17 10:30 Sample Site Right Radial 05/22/17 10:30 pH 7.45 (7.35-7.45) 05/22/17 10:30 pCO2 35.0 mmHg (35.0-45.0) 05/22/17 10:30 pO2 109.0 mmHg (80.0-100.0) H 05/22/17 10:30 HCO3 25.4 mEq/L (20.0-26.0) 05/22/17 10:30 Base Excess 0.6 mEq/L (-3.0-3.0) 05/22/17 10:30 O2 Saturation 98.0 % (92.0-100.0) 05/22/17 10:30 Feliciano Test YES 05/22/17 10:30 Vent Rate 24 05/22/17 10:30 Inspired O2 50 05/22/17 10:30 Tidal Volume 500 05/22/17 10:30 PEEP NA 05/22/17 10:30 Pressure (ins/psv/peep) NA 05/22/17 10:30 Critical Value E.MCNEAL 05/22/17 10:30 Sodium 136 mEq/L (136-145) 05/22/17 04:44 Potassium 3.8 mEq/L (3.5-5.1) 05/22/17 04:44 Chloride 101 mEq/L (98-107) 05/22/17 04:44 Carbon Dioxide 25.1 mEq/L (21.0-31.0) 05/22/17 04:44 Anion Gap 13.7 (7.0-16.0) 05/22/17 04:44 BUN 56 mg/dL (7-25) H 05/22/17 04:44 Creatinine 2.8 mg/dL (0.7-1.3) H 05/22/17 04:44 Est GFR ( Amer) TNP 05/22/17 04:44 Est GFR (Non-Af Amer) TNP 05/22/17 04:44 BUN/Creatinine Ratio 20.0 05/22/17 04:44 Glucose 179 mg/dL (70-105) H 05/22/17 04:44 POC Glucose 192 MG/DL (70 - 105) H 05/22/17 05:43 Hemoglobin A1c % 6.1 % (4.0-6.0) H 05/15/17 06:30 Plasma/Ser Osmolality 301 mOsmol/kg (280-301) 05/14/17 18:20 Whole Bld Lactic Acid 1.58 mmol/L (0.60-1.99) 05/13/17 17:42 Uric Acid 7.7 mg/dL (4.4-7.6) H 05/15/17 06:30 Calcium 9.0 mg/dL (8.6-10.3) 05/22/17 04:44 Phosphorus 5.4 mg/dL (2.5-5.0) H 05/15/17 06:30 Magnesium 2.2 mg/dL (1.9-2.7) 05/15/17 06:30 Total Bilirubin 0.7 mg/dL (0.3-1.0) 05/22/17 04:44 Direct Bilirubin 0.09 mg/dL (0.0-0.2) 05/19/17 04:50 AST 36 U/L (13-39) 05/22/17 04:44 ALT 9 U/L (7-52) 05/22/17 04:44 Alkaline Phosphatase 80 U/L (34-104) 05/22/17 04:44 Ammonia 65 umol/L (16-53) H 05/19/17 04:50 Creatine Kinase 35 U/L (30-223) 05/16/17 23:06 Troponin I 0.02 ng/mL (0.01-0.05) 05/16/17 23:06 B-Natriuretic Peptide 1160.0 pg/mL (5.0-100.0) H 05/22/17 04:44 Total Protein 6.3 gm/dL (6.0-8.3) 05/22/17 04:44 Albumin 3.5 gm/dL (4.2-5.5) L 05/22/17 04:44 Globulin 2.8 gm/dL 05/22/17 04:44 Albumin/Globulin Ratio 1.3 (1.0-1.8) 05/22/17 04:44 Prealbumin 14 mg/dL (9-32) 05/18/17 07:33 TSH 2.74 uIU/ml (0.34-5.60) 05/15/17 06:30 Urine Source CATH 05/13/17 19:50 Urine Color YELLOW 05/13/17 19:50 Urine Clarity CLOUDY (CLEAR) 05/13/17 19:50 Urine pH 6.0 05/13/17 19:50 Ur Specific [place] 1.015 (1.005-1.030) 05/13/17 19:50 Urine Protein 100 mg/dL (NEGATIVE) H 05/13/17 19:50 Urine Glucose (UA) NEGATIVE mg/dL (NEGATIVE) 05/13/17 19:50 Urine Ketones NEGATIVE mg/dL (NEGATIVE) 05/13/17 19:50 Urine Blood LARGE (NEGATIVE) H 05/13/17 19:50 Urine Nitrate NEGATIVE (NEGATIVE) 05/13/17 19:50 Urine Bilirubin NEGATIVE (NEGATIVE) 05/13/17 19:50 Urine Urobilinogen 0.2 E.U./dL (0.2 - 1.0) 05/13/17 19:50 Ur Leukocyte Esterase LARGE (NEGATIVE) H 05/13/17 19:50 Urine RBC 50-100 /hpf (0-5) H 05/13/17 19:50 Urine WBC >100 /hpf (0-5) H 05/13/17 19:50 Ur Epithelial Cells NONE SEEN /lpf (FEW) 05/13/17 19:50 Urine Bacteria NONE SEEN /hpf (NONE SEEN) 05/13/17 19:50 Ur Random Sodium 30 mmol/L 05/14/17 18:00 Urine Creatinine 36.4 mg/dl (Not Estab.) 05/14/17 18:00 Urine Microalbumin 363.5 ug/mL (Not Estab.) 05/14/17 18:00 Microalb/Creat Ratio 998.6 mg/g creat (0.0-30.0) H 05/14/17 18:00 Random Vancomycin 19.1 ug/mL (5.0-40.0) 05/19/17 04:50 Hepatitis A IgM Ab Negative (Negative) 05/21/17 04:46 Hep Bs Antigen Negative (Negative) 05/21/17 04:46 Hep B Core IgM Ab Negative (Negative) 05/21/17 04:46 Hepatitis C Antibody 0.1 s/co ratio (0.0-0.9) 05/21/17 04:46 Blood Type B POSITIVE 05/21/17 10:19 Antibody Screen NEGATIVE 05/21/17 10:19 Crossmatch See Detail 05/21/17 10:19 - Physical Exam Vitals and I&O: Vital Signs Temp 99.2 F 05/22/17 09:00 Pulse 111 05/22/17 10:00 Resp 29 05/22/17 10:00 BP 143/77 05/22/17 10:00 Pulse Ox 97 05/22/17 10:00 Intake & Output 05/21/17 05/22/17 05/22/17 18:59 06:59 18:59 Intake Total 250 400 Output Total 1056 Balance 250 -656 Weight (lbs) 62.596 kg 62.596 kg Intake: Intake, IV Amount 150 50 Doxycycline Hyclate 100 100 mg In Dextrose 5% 100 ml @ 100 mls/hr IV Q12H [facility] Rx#:[id number] Piperacillin Sodium/ 50 50 Tazobact 2.25 gm In Sodium Chloride 0.9% 50 ml @ 100 mls/hr IV Q8HR [facility] Rx#:[id number] Tube Feeding 40 Blood Product 250 Other 100 60 Output: Urine 55 Hemodialysis 1000 Other 1 Other: Stool Characteristics Soft Soft Soft Active Medications: Current Medications Acetaminophen (Tylenol) 650 mg PO Q4HR PRN PRN Reason: Pain Or Fever above 101 Stop: 07/14/17 15:15 Last Admin: 05/17/17 11:11 Dose: 650 mg Albuterol/Ipratropium (Duoneb Neb) 3 ml HHN Q4HRT [facility] Stop: 07/19/17 14:59 Last Admin: 05/22/17 08:52 Dose: 3 ml Atorvastatin Calcium (Lipitor) 10 mg GT HS YESSICA PRN Reason: Protocol Stop: 07/14/17 20:59 Last Admin: 05/21/17 21:08 Dose: 10 mg Budesonide (Pulmicort) 1 mg HHN BIDRT [facility]ESSICA Stop: 07/19/17 18:59 Carbidopa/Levodopa (Sinemet 25mg-100 Mg) 1 tab PO TID YESSICA Stop: 07/14/17 08:59 Last Admin: 05/22/17 09:16 Dose: 1 tab Dextrose (D50w) 50 ml IVP PRN PRN; Protocol PRN Reason: HYPOGLYCEMIA Stop: 07/20/17 00:54 Last Admin: 05/21/17 13:26 Dose: 50 ml Furosemide (Lasix) 40 mg IVP DAILY YESSICA Stop: 07/18/17 08:59 Last Admin: 05/22/17 09:14 Dose: 40 mg Heparin Sodium (Porcine) (Heparin) 5,000 units SUBQ Q8H [facility] Stop: 07/14/17 14:59 Last Admin: 05/22/17 06:15 Dose: 5,000 units Norepinephrine Bitartrate 8 mg (/ Dextrose) 258 mls @ 0 mls/hr IV TITR PRN; Protocol; Titrate PRN Reason: BP MAINTENANCE (PER PROTOCOL) Stop: 07/19/17 12:29 Last Admin: 05/21/17 01:06 Dose: 10 mcg/min, 19.35 mls/hr Phenylephrine HCl 10 mg/ (Sodium Chloride) 250 mls @ 0 mls/hr IV TITR YESSICA; Per Protocol PRN Reason: Protocol Stop: 07/19/17 12:59 Albumin Human (Albuminar 25%) 25 gm in 100 mls @ 50 mls/hr IV X1 ONE Stop: 05/22/17 15:59 Dextrose/Sodium Chloride (D5-0.45ns) 1,000 mls @ 40 mls/hr IV .Q24H YESSICA Stop: 07/20/17 18:07 Last Admin: 05/21/17 18:52 Dose: 40 mls/hr Tigecycline 50 mg/ Sodium (Chloride) 100 mls @ 100 mls/hr IV Q12H [facility] Stop: 07/21/17 18:59 Fluconazole (Diflucan) 100 mg in 50 mls @ 50 mls/hr IV Q24HR [facility] Stop: 07/21/17 04:59 Last Admin: 05/22/17 04:37 Dose: 50 mls/hr Amino Acids/Electrolytes (Procalamine) 1,000 mls @ 40 mls/hr IV .Q24H [facility]ESSICA Stop: 07/21/17 15:59 Insulin Aspart (Novolog Insulin Sliding Scale) 0 units SUBQ Q6HR YESSICA PRN Reason: Protocol Stop: 07/14/17 00:00 Last Admin: 05/22/17 11:45 Dose: 2 units Insulin Detemir (Levemir Insulin) 20 units SUBQ DAILY YESSICA PRN Reason: Protocol Stop: 07/18/17 08:59 Last Admin: 05/22/17 09:36 Dose: 20 units Ipratropium [place] (Atrovent Neb 0.5mg/2.5ml) 0.5 mg HHN Q4HRT [facility] Stop: 07/17/17 14:59 Last Admin: 05/20/17 04:46 Dose: 0.5 mg Isosorbide Dinitrate (Isordil) 10 mg GT TID [facility] Stop: 07/14/17 08:59 Last Admin: 05/22/17 09:15 Dose: 10 mg Lactobacillus Rhamnosus (Culturelle) 1 each PO DAILY [facility] Stop: 07/17/17 08:59 Last Admin: 05/22/17 09:14 Dose: 1 each Lactulose (Cephulac) 20 gm PO TID YESSICA Stop: 07/14/17 08:59 Last Admin: 05/22/17 09:17 Dose: 20 gm Levetiracetam (Keppra) 250 mg NG BID [facility] Stop: 07/14/17 08:59 Last Admin: 05/22/17 09:41 Dose: 250 mg Lorazepam (Ativan) 1 mg IVP Q4H PRN; Protocol PRN Reason: Agitation Stop: 07/19/17 09:02 Metoclopramide HCl (Reglan) 5 mg IVP TID [facility] Stop: 07/20/17 20:59 Last Admin: 05/22/17 09:19 Dose: 5 mg Metoprolol Tartrate (Lopressor) 50 mg GT Q8H [facility] Stop: 07/18/17 08:59 Last Admin: 05/22/17 01:20 Dose: Not Given Metoprolol Tartrate (Lopressor) 25 mg PO BID [facility] Stop: 07/19/17 08:59 Last Admin: 05/22/17 09:17 Dose: 25 mg Miscellaneous (Vte Chemical Prophylaxis Screen/ Admission) 1 ea [facility] PRN PRN PRN Reason: PROTOCOL Stop: 07/14/17 09:25 Miscellaneous (Clinical Monitoring) 1 ea MC DAILY PRN PRN Reason: RENAL Stop: 07/15/17 12:32 Miscellaneous (Probiotic Screen) 1 ea MC PRN PRN PRN Reason: PROTOCOL Stop: 07/16/17 09:33 Miscellaneous (Ppn Per Pharmacy) 1 ea MC PRN PRN PRN Reason: PROTOCOL Stop: 07/21/17 10:23 Mupirocin (Bactroban Oint) 1 appl TP BID YESSICA Stop: 07/14/17 16:59 Last Admin: 05/22/17 10:04 Dose: 1 appl Pantoprazole Sodium (Protonix) 40 mg GT DAILY YESSICA Stop: 07/14/17 08:59 Last Admin: 05/22/17 10:04 Dose: 40 mg General: Alert, No acute distress, Moderate distress, Other (Altered) HEENT: Atraumatic, Mucous membr. moist/pink Neck: Supple, +2 carotid pulse wo bruit Cardiovascular: Regular rate, Normal S1, Normal S2, Other (afib on the monitor) Lungs: Clear to auscultation (rales bilaterally), Other (bilateral rales better) Abdomen: Bowel sounds, Soft, Distended (mildly) Extremities: no Edema Neurological: Sensation intact Skin: no Rash Psych/Mental Status: Mood NL - Procedures Procedures: Procedures Procedure Code Date INSERT EMERGENCY AIRWAY 17677 05/13/17 INSERT TUNNELED CV CATH 08886 05/13/17 INSERTION OF ENDOTRACHEAL AIRWAY INTO [place]HEA, VIA OPENING [id number] 05/13/17 INSERTION OF INFUSION DEV INTO R FEMOR VEIN, PERC APPROACH [id number] 05/13/17 RESPIRATORY VENTILATION, LESS THAN 24 CONSECUTIVE HOURS [id number] 05/13/17 VENT MGMT INPAT INIT DAY 15223 05/13/17 Assessment/Plan - Problem List Patient Problems: All Active Problems COUGH AND CONGESTION (Acute) - Assessment Assessment: NICK on CKD, now on dialysis A LOC secondary to metabolic encephalopathy/medications Dehydration Essential hypertension with CKD COPD Chronic atrial fibrillation Status post CVA Aspiration pneumonia/dysphagia status post PEG Type 2 diabetes mellitus with CKD Acute Decompensated CHF Acute Resp Failure on Vent Bradycardia - Plan Plan: Lab - Result Diagrams 05/15/17 06:30 05/15/17 06:30 Current Medications Acetaminophen (Tylenol) 650 mg PO Q4HR PRN PRN Reason: Pain Or Fever above 101 Stop: 07/14/17 15:15 Last Admin: 05/15/17 16:21 Dose: 650 mg Albuterol Sulfate (Albuterol 2.5mg/3ml Neb Ud) 2.5 mg HHN Q6HRT [facility]ESSICA Stop: 07/14/17 00:59 Last Admin: 05/15/17 16:05 Dose: 2.5 mg Atorvastatin Calcium (Lipitor) 10 mg GT HS YESSICA PRN Reason: Protocol Stop: 07/14/17 20:59 Carbidopa/Levodopa (Sinemet 25mg-100 Mg) 1 tab PO TID [facility] Stop: 07/14/17 08:59 Last Admin: 05/15/17 14:02 Dose: 1 tab Heparin Sodium (Porcine) (Heparin) 5,000 units SUBQ Q8H [facility] Stop: 07/14/17 14:59 Last Admin: 05/15/17 16:24 Dose: 5,000 units Sodium Chloride (Nacl 0.9%) 1,000 mls @ 60 mls/hr IV .[id number] [facility] Stop: 07/13/17 06:40 Last Admin: 05/14/17 17:16 Dose: 60 mls/hr Azithromycin 250 mg/ Sodium (Chloride) 250 mls @ 250 mls/hr IV Q24HR [facility] Stop: 05/20/17 08:59 Piperacillin Sod/Tazobactam (Sod 3.375 gm/ Sodium Chloride) 50 mls @ 100 mls/ hr IV Q8HR [facility] Stop: 07/14/17 15:14 Last Admin: 05/15/17 15:57 Dose: 100 mls/hr Insulin Aspart (Novolog Insulin Sliding Scale) 0 units SUBQ Q6HR [facility]ESSICA PRN Reason: Protocol Stop: 07/14/17 00:00 Last Admin: 05/15/17 17:09 Dose: Not Given Insulin Detemir (Levemir Insulin) 14 units SUBQ DAILY YESSICA PRN Reason: Protocol Stop: 07/15/17 08:59 Isosorbide Dinitrate (Isordil) 10 mg GT TID [facility]ESSICA Stop: 07/14/17 08:59 Last Admin: 05/15/17 14:02 Dose: 10 mg Lactulose (Cephulac) 20 gm PO TID [facility]ESSICA Stop: 07/14/17 08:59 Last Admin: 05/15/17 14:02 Dose: 20 gm Levetiracetam (Keppra) 250 mg NG BID [facility]ESSICA Stop: 07/14/17 08:59 Last Admin: 05/15/17 16:23 Dose: 250 mg Metoprolol Tartrate (Lopressor) 37.5 mg GT BID [facility]ESSICA Stop: 07/14/17 00:14 Last Admin: 05/15/17 16:22 Dose: 37.5 mg Miscellaneous (Vte Chemical Prophylaxis Screen/ Admission) 1 ea [facility] PRN PRN PRN Reason: PROTOCOL Stop: 07/14/17 09:25 Morphine Sulfate (Morphine) 2 mg IVP Q3H PRN PRN Reason: PAIN Stop: 07/13/17 19:46 Last Admin: 05/14/17 21:16 Dose: 2 mg Mupirocin (Bactroban Oint) 1 appl TP BID YESSICA Stop: 07/14/17 16:59 Last Admin: 05/15/17 16:24 Dose: 1 appl Pantoprazole Sodium (Protonix) 40 mg GT DAILY [facility]ESSICA Stop: 07/14/17 08:59 Last Admin: 05/15/17 08:36 Dose: 40 mg Rifaximin (Xifaxan) 550 mg GT BID [facility]ESSICA Stop: 07/14/17 08:59 Last Admin: 05/15/17 16:23 Dose: 550 mg Kidney function improved with a BUN 56 and creatinine of 2.8 Sodium improved to 136 White count stable at 12.3, on Zosyn Chest x-ray improved pulm edema/chf, and elevated BNP of 1160, will discontinue IV fluids and continue feedings Reviewed his meds Follow-up electrolytes start Maintenance Lasix w/ albumin infusion to improve intravascular volume Decrease nephro to 40 ml/hr prognosis poor transfuse 2 U PRBC w/ dialysis Hgb/Hct improved to 7.9/23.4 discussed w/ grandson Pedro about hold dialysis in am to reevalute & resume on Sat Lab - Result Diagrams 05/19/17 04:50 05/19/17 04:50 addendum: Poor response to diuretics, w/ worsening CHF, BNP level developed resp failure, required intubation worsening cardio-renal syndrome discussed w/ grandson Pedro, about poor prognosis but still want to proceed w/ dialysis Nutritional Asmnt/Malnutr-PDOC - Dietary Evaluation Malnutrition Findings (Please click <Entered> for more info): Nutritional Asmnt/Malnutrition Start: 05/15/17 13: 56 Text: Status: Complete Freq: Document 05/15/17 13:56 GSUN (Rec: 05/15/17 14:18 GSUN [email or web address]) Nutritional Asmnt/Malnutrition Patient General Information Nutritional Screening High Risk Screening Diagnosis PNA, NICK, icnreasing renal failure, CVA, CHF, DM Pertinent Medical Hx/Surgical Hx CVA, dementia, afib, CAD, HTN, dyslipidemia, epilepsy, GERD, aspiration PNA, DM, CKD, dehydration, C. diff, anemia D Subjective Information 86 year old male from SNF. Pt greeted RD. Pt is overall thin , moderate to severe wasting to chest, clavicles, extremities. Observed Glytrol running at 60ml/hr x20hrs during visit. Unable to obtain CBW due to bedscale not calibrated. Discussed with YVETTE Farooq regarding tube feeding recommendations. Current Diet Order/ Nutrition Support Glytrol at 60ml/hr x 20hrs, providing 1200kcal 54g protein Pertinent Medications Lipitor, Novolog, Levemir, Cephulac, Morphine, Protonix, Nacl 0.9% Pertinent Labs 05/13: potassium 5.3H, BUN 80H, creatinine 2.4H, glucose 103 05/15: potassium WNL, BUN 70H, creatinine 2.4H, glucose 239H, A1c 6.1H, phosphorus 5.4H Nutritional Hx/Data Height 1.68 m Height (Calculated Centimeters) 167.6 Current Weight (lbs) 65.771 kg Weight (Calculated Kilograms) 65.8 Weight (Calculated Grams) 51192.9 [place] Body Weight 142 Weight Status Approriate GI Symptoms Difficult in: Swallowing Cultural/Ethnic/[employer] Belief [facility]: Glucerna 1.2 at 85ml/hr x 20hrs, providing 2040kcal, promote weight gain. Skin Integrity/Comment: Gee 12. Skin intact. Estimated Nutritional Goals Calories/Kcals/Kg CBW 145lb/65.9kg Kcals Calculated 1976-2306kcal (30-35kcal/kg) Protein Calculated 46-92g (0.7-1.4g/kg, renal vs moderate to severe wasting) Fluid: ml Per MD (renal) Nutritional Problem 2. Problem Problem Impaired nutrient utilization related to Etiology NICK, hx CKD aeb Signs/Symptoms: "increasing renal failure," potaasum 5.3H on adm, BUN 70H, retail gift card merchandising 2.4H, phosphorus 5.4H 1. Problem Problem Inadequate intake from enteral nutrition infusion related to Etiology estimated nutritional needs aeb Signs/Symptoms: providing to meet 61% lower end kcal needs Intervention/Recommendation Comments 1. Recommend Novasource Renal at 50ml/hr x 20hrs, providing 2000kcal and 91g protein. Current order Glytrol at 60ml/ hr x 20hrs is only providing 1200kcal, pt recieves 2040kcal at [facility]. Expected Outcomes/Goals Expected Outcomes/Goals 1. Pt to meet at least 100% of estimated nutritional needs on tube feeding with tolerance .
[2017-05-22] MEDS ORDERED: Albumin 25% 25gm/100mL 25 GM/100 ML BTL IV ONE (14:00)
--- NOTE | 2017-05-22 14:30 | Infectious Disease Prog Note ---
Infectious Disease Subjective - Review of Systems Service Date: 05/22/17 Subjective: No new change. No fever. intubated orally, on vent support. Infectious Disease Objective - Results Result Diagrams: 05/22/17 04:44 05/22/17 04:44 Recent Labs: Laboratory Last Values WBC 12.3 Th/cmm (4.8-10.8) H D 05/22/17 04:44 RBC 2.76 Mil/cmm (3.80-5.80) L 05/22/17 04:44 Hgb 7.9 gm/dL (12.6-17.4) L* 05/22/17 04:44 Hct 23.4 % (39.0-49.0) L* 05/22/17 04:44 MCV 84.9 fl (80-99) 05/22/17 04:44 MCH 28.5 pg (27.0-31.0) 05/22/17 04:44 MCHC Differential 33.6 pg (28.0-36.0) 05/22/17 04:44 RDW 15.3 % (11.5-20.0) 05/22/17 04:44 Plt Count 162 Th/cmm (150-400) 05/22/17 04:44 MPV 8.7 fl 05/22/17 04:44 Neutrophils % 75.7 % (40.0-80.0) 05/18/17 07:33 Band Neutrophils % 14 % (0-10) H 05/22/17 04:44 Lymphocytes % 13.2 % (20.0-50.0) L 05/18/17 07:33 Monocytes % 8.3 % (2.0-10.0) 05/18/17 07:33 Eosinophils % 2.0 % (0.0-5.0) 05/18/17 07:33 Basophils % 0.8 % (0.0-2.0) 05/18/17 07:33 Neutrophils (Manual) 78 % (40-80) 05/22/17 04:44 Lymphocytes 4 % (20-50) L 05/22/17 04:44 Monocytes 3 % (2-10) 05/22/17 04:44 Eosinophils 1 % (0-5) 05/20/17 04:50 Metamyelocytes 1 % (0-0) H 05/22/17 04:44 Platelet Estimate ADEQUATE (NORMAL) 05/22/17 04:44 Platelet Morphology NORMAL (NORMAL) 05/22/17 04:44 Anisocytosis 1+ 05/22/17 04:44 RBC Morph Micro Appear ABNORMAL (NORMAL) 05/22/17 04:44 Eos Smear Source URINE 05/14/17 18:00 Eos Smear Total Cells FEW EOSINOPHILS SEEN (NONE SEEN) 05/14/17 18:00 PT 11.9 SECONDS (9.5-11.5) H 05/13/17 17:42 INR 1.13 (0.5-1.4) 05/13/17 17:42 PTT (Actin FS) 30.5 SECONDS (26.0-38.0) 05/15/17 12:30 Specimen Source Arterial 05/22/17 10:30 Sample Site Right Radial 05/22/17 10:30 pH 7.45 (7.35-7.45) 05/22/17 10:30 pCO2 35.0 mmHg (35.0-45.0) 05/22/17 10:30 pO2 109.0 mmHg (80.0-100.0) H 05/22/17 10:30 HCO3 25.4 mEq/L (20.0-26.0) 05/22/17 10:30 Base Excess 0.6 mEq/L (-3.0-3.0) 05/22/17 10:30 O2 Saturation 98.0 % (92.0-100.0) 05/22/17 10:30 Feliciano Test YES 05/22/17 10:30 Vent Rate 24 05/22/17 10:30 Inspired O2 50 05/22/17 10:30 Tidal Volume 500 05/22/17 10:30 PEEP NA 05/22/17 10:30 Pressure (ins/psv/peep) NA 05/22/17 10:30 Critical Value E.MCNEAL 05/22/17 10:30 Sodium 136 mEq/L (136-145) 05/22/17 04:44 Potassium 3.8 mEq/L (3.5-5.1) 05/22/17 04:44 Chloride 101 mEq/L (98-107) 05/22/17 04:44 Carbon Dioxide 25.1 mEq/L (21.0-31.0) 05/22/17 04:44 Anion Gap 13.7 (7.0-16.0) 05/22/17 04:44 BUN 56 mg/dL (7-25) H 05/22/17 04:44 Creatinine 2.8 mg/dL (0.7-1.3) H 05/22/17 04:44 Est GFR ( Amer) TNP 05/22/17 04:44 Est GFR (Non-Af Amer) TNP 05/22/17 04:44 BUN/Creatinine Ratio 20.0 05/22/17 04:44 Glucose 179 mg/dL (70-105) H 05/22/17 04:44 POC Glucose 192 MG/DL (70 - 105) H 05/22/17 05:43 Hemoglobin A1c % 6.1 % (4.0-6.0) H 05/15/17 06:30 Plasma/Ser Osmolality 301 mOsmol/kg (280-301) 05/14/17 18:20 Whole Bld Lactic Acid 1.58 mmol/L (0.60-1.99) 05/13/17 17:42 Uric Acid 7.7 mg/dL (4.4-7.6) H 05/15/17 06:30 Calcium 9.0 mg/dL (8.6-10.3) 05/22/17 04:44 Phosphorus 5.4 mg/dL (2.5-5.0) H 05/15/17 06:30 Magnesium 2.2 mg/dL (1.9-2.7) 05/15/17 06:30 Total Bilirubin 0.7 mg/dL (0.3-1.0) 05/22/17 04:44 Direct Bilirubin 0.09 mg/dL (0.0-0.2) 05/19/17 04:50 AST 36 U/L (13-39) 05/22/17 04:44 ALT 9 U/L (7-52) 05/22/17 04:44 Alkaline Phosphatase 80 U/L (34-104) 05/22/17 04:44 Ammonia 65 umol/L (16-53) H 05/19/17 04:50 Creatine Kinase 35 U/L (30-223) 05/16/17 23:06 Troponin I 0.02 ng/mL (0.01-0.05) 05/16/17 23:06 B-Natriuretic Peptide 1160.0 pg/mL (5.0-100.0) H 05/22/17 04:44 Total Protein 6.3 gm/dL (6.0-8.3) 05/22/17 04:44 Albumin 3.5 gm/dL (4.2-5.5) L 05/22/17 04:44 Globulin 2.8 gm/dL 05/22/17 04:44 Albumin/Globulin Ratio 1.3 (1.0-1.8) 05/22/17 04:44 Prealbumin 14 mg/dL (9-32) 05/18/17 07:33 TSH 2.74 uIU/ml (0.34-5.60) 05/15/17 06:30 Urine Source CATH 05/13/17 19:50 Urine Color YELLOW 05/13/17 19:50 Urine Clarity CLOUDY (CLEAR) 05/13/17 19:50 Urine pH 6.0 05/13/17 19:50 Ur Specific [place] 1.015 (1.005-1.030) 05/13/17 19:50 Urine Protein 100 mg/dL (NEGATIVE) H 05/13/17 19:50 Urine Glucose (UA) NEGATIVE mg/dL (NEGATIVE) 05/13/17 19:50 Urine Ketones NEGATIVE mg/dL (NEGATIVE) 05/13/17 19:50 Urine Blood LARGE (NEGATIVE) H 05/13/17 19:50 Urine Nitrate NEGATIVE (NEGATIVE) 05/13/17 19:50 Urine Bilirubin NEGATIVE (NEGATIVE) 05/13/17 19:50 Urine Urobilinogen 0.2 E.U./dL (0.2 - 1.0) 05/13/17 19:50 Ur Leukocyte Esterase LARGE (NEGATIVE) H 05/13/17 19:50 Urine RBC 50-100 /hpf (0-5) H 05/13/17 19:50 Urine WBC >100 /hpf (0-5) H 05/13/17 19:50 Ur Epithelial Cells NONE SEEN /lpf (FEW) 05/13/17 19:50 Urine Bacteria NONE SEEN /hpf (NONE SEEN) 05/13/17 19:50 Ur Random Sodium 30 mmol/L 05/14/17 18:00 Urine Creatinine 36.4 mg/dl (Not Estab.) 05/14/17 18:00 Urine Microalbumin 363.5 ug/mL (Not Estab.) 05/14/17 18:00 Microalb/Creat Ratio 998.6 mg/g creat (0.0-30.0) H 05/14/17 18:00 Random Vancomycin 19.1 ug/mL (5.0-40.0) 05/19/17 04:50 Hepatitis A IgM Ab Negative (Negative) 05/21/17 04:46 Hep Bs Antigen Negative (Negative) 05/21/17 04:46 Hep B Core IgM Ab Negative (Negative) 05/21/17 04:46 Hepatitis C Antibody 0.1 s/co ratio (0.0-0.9) 05/21/17 04:46 Blood Type B POSITIVE 05/21/17 10:19 Antibody Screen NEGATIVE 05/21/17 10:19 Crossmatch See Detail 05/21/17 10:19 - Physical Exam Vitals and I&O: Vital Signs Temp 99.2 F 05/22/17 09:00 Pulse 100 05/22/17 14:05 Resp 29 05/22/17 10:00 BP 103/53 05/22/17 14:05 Pulse Ox 100 05/22/17 13:22 Intake & Output 05/21/17 05/22/17 05/22/17 18:59 06:59 18:59 Intake Total 250 400 Output Total 1056 Balance 250 -656 Weight (lbs) 62.596 kg 62.596 kg Intake: Intake, IV Amount 150 50 Doxycycline Hyclate 100 100 mg In Dextrose 5% 100 ml @ 100 mls/hr IV Q12H [facility] Rx#:[id number] Piperacillin Sodium/ 50 50 Tazobact 2.25 gm In Sodium Chloride 0.9% 50 ml @ 100 mls/hr IV Q8HR [facility] Rx#:[id number] Tube Feeding 40 Blood Product 250 Other 100 60 Output: Urine 55 Hemodialysis 1000 Other 1 Other: Stool Characteristics Soft Soft Soft Active Medications: Current Medications Acetaminophen (Tylenol) 650 mg PO Q4HR PRN PRN Reason: Pain Or Fever above 101 Stop: 07/14/17 15:15 Last Admin: 05/17/17 11:11 Dose: 650 mg Albuterol/Ipratropium (Duoneb Neb) 3 ml HHN Q4HRT [facility] Stop: 07/19/17 14:59 Last Admin: 05/22/17 13:21 Dose: 3 ml Atorvastatin Calcium (Lipitor) 10 mg GT HS YESSICA PRN Reason: Protocol Stop: 07/14/17 20:59 Last Admin: 05/21/17 21:08 Dose: 10 mg Budesonide (Pulmicort) 1 mg HHN BIDRT YESSICA Stop: 07/19/17 18:59 Carbidopa/Levodopa (Sinemet 25mg-100 Mg) 1 tab PO TID YESSICA Stop: 07/14/17 08:59 Last Admin: 05/22/17 09:16 Dose: 1 tab Dextrose (D50w) 50 ml IVP PRN PRN; Protocol PRN Reason: HYPOGLYCEMIA Stop: 07/20/17 00:54 Last Admin: 05/21/17 13:26 Dose: 50 ml Furosemide (Lasix) 40 mg IVP DAILY YESSICA Stop: 07/18/17 08:59 Last Admin: 05/22/17 09:14 Dose: 40 mg Heparin Sodium (Porcine) (Heparin) 5,000 units SUBQ Q8H YESSICA Stop: 07/14/17 14:59 Last Admin: 05/22/17 06:15 Dose: 5,000 units Norepinephrine Bitartrate 8 mg (/ Dextrose) 258 mls @ 0 mls/hr IV TITR PRN; Protocol; Titrate PRN Reason: BP MAINTENANCE (PER PROTOCOL) Stop: 07/19/17 12:29 Last Admin: 05/21/17 01:06 Dose: 10 mcg/min, 19.35 mls/hr Phenylephrine HCl 10 mg/ (Sodium Chloride) 250 mls @ 0 mls/hr IV TITR YESSICA; Per Protocol PRN Reason: Protocol Stop: 07/19/17 12:59 Albumin Human (Albuminar 25%) 25 gm in 100 mls @ 50 mls/hr IV X1 ONE Stop: 05/22/17 15:59 Last Admin: 05/22/17 13:59 Dose: 50 mls/hr Dextrose/Sodium Chloride (D5-0.45ns) 1,000 mls @ 40 mls/hr IV .Q24H YESSICA Stop: 07/20/17 18:07 Last Admin: 05/21/17 18:52 Dose: 40 mls/hr Tigecycline 50 mg/ Sodium (Chloride) 100 mls @ 100 mls/hr IV Q12H YESSICA Stop: 07/21/17 18:59 Fluconazole (Diflucan) 100 mg in 50 mls @ 50 mls/hr IV Q24HR [facility] Stop: 07/21/17 04:59 Last Admin: 05/22/17 04:37 Dose: 50 mls/hr Amino Acids/Electrolytes (Procalamine) 1,000 mls @ 40 mls/hr IV .Q24H [facility] Stop: 07/21/17 15:59 Insulin Aspart (Novolog Insulin Sliding Scale) 0 units SUBQ Q6HR YESSICA PRN Reason: Protocol Stop: 07/14/17 00:00 Last Admin: 05/22/17 11:45 Dose: 2 units Insulin Detemir (Levemir Insulin) 20 units SUBQ DAILY YESSICA PRN Reason: Protocol Stop: 07/18/17 08:59 Last Admin: 05/22/17 09:36 Dose: 20 units Ipratropium Theodore (Atrovent Neb 0.5mg/2.5ml) 0.5 mg HHN Q4HRT [facility] Stop: 07/17/17 14:59 Last Admin: 05/20/17 04:46 Dose: 0.5 mg Isosorbide Dinitrate (Isordil) 10 mg GT TID [facility] Stop: 07/14/17 08:59 Last Admin: 05/22/17 14:05 Dose: 10 mg Lactobacillus Rhamnosus (Culturelle) 1 each PO DAILY [facility] Stop: 07/17/17 08:59 Last Admin: 05/22/17 09:14 Dose: 1 each Lactulose (Cephulac) 20 gm PO TID [facility] Stop: 07/14/17 08:59 Last Admin: 05/22/17 09:17 Dose: 20 gm Levetiracetam (Keppra) 250 mg NG BID [facility] Stop: 07/14/17 08:59 Last Admin: 05/22/17 09:41 Dose: 250 mg Lorazepam (Ativan) 1 mg IVP Q4H PRN; Protocol PRN Reason: Agitation Stop: 07/19/17 09:02 Metoclopramide HCl (Reglan) 5 mg IVP TID [facility] Stop: 07/20/17 20:59 Last Admin: 05/22/17 14:05 Dose: 5 mg Metoprolol Tartrate (Lopressor) 50 mg GT Q8H [facility] Stop: 07/18/17 08:59 Last Admin: 05/22/17 01:20 Dose: Not Given Metoprolol Tartrate (Lopressor) 25 mg PO BID YESSICA Stop: 07/19/17 08:59 Last Admin: 05/22/17 09:17 Dose: 25 mg Miscellaneous (Vte Chemical Prophylaxis Screen/ Admission) 1 ea [facility] PRN PRN PRN Reason: PROTOCOL Stop: 07/14/17 09:25 Miscellaneous (Clinical Monitoring) 1 ea MC DAILY PRN PRN Reason: RENAL Stop: 07/15/17 12:32 Miscellaneous (Probiotic Screen) 1 ea MC PRN PRN PRN Reason: PROTOCOL Stop: 07/16/17 09:33 Miscellaneous (Ppn Per Pharmacy) 1 ea MC PRN PRN PRN Reason: PROTOCOL Stop: 07/21/17 10:23 Mupirocin (Bactroban Oint) 1 appl TP BID [facility] Stop: 07/14/17 16:59 Last Admin: 05/22/17 10:04 Dose: 1 appl Pantoprazole Sodium (Protonix) 40 mg GT DAILY YESSICA Stop: 07/14/17 08:59 Last Admin: 05/22/17 10:04 Dose: 40 mg General: no acute distress, well developed, well nourished HEENT: atraumatic, normocephalic Neck: supple, no thyromegaly, no lymphadenopathy Cardiovascular: S1S2, regular Lungs: clear to auscultation bilaterally, clear to percussion Abdomen: soft, no tender, no distended Extremities: no cyanosis, no clubbing, no edema Neurological: awake, alert Skin: intact - Procedures Procedures: Procedures Procedure Code Date INSERT EMERGENCY AIRWAY 92920 05/13/17 INSERT TUNNELED CV CATH [id number] 05/13/17 INSERTION OF ENDOTRACHEAL AIRWAY INTO TRACHEA, VIA OPENING [id number] 05/13/17 INSERTION OF INFUSION DEV INTO R FEMOR VEIN, PERC APPROACH [id number] 05/13/17 RESPIRATORY VENTILATION, LESS THAN 24 CONSECUTIVE HOURS [id number] 05/13/17 VENT MGMT INPAT INIT DAY [id number] 05/13/17 Infectious Disease Assmt/Plan - Problem List Patient Problems: All Active Problems COUGH AND CONGESTION (Acute) - Assessment Assessment: 1. Pneuimonia.? Aspiration. 2. NICK. 3. CVA. 4. CHF. 5. CKD4. NICK mild rise in creatinine. 6. Afib with rapid ventricular response. Plan: Continue tygacil D2/10.. Nutritional Asmnt/Malnutr-PDOC - Dietary Evaluation Malnutrition Findings (Please click <Entered> for more info): Nutritional Asmnt/Malnutrition Start: 05/15/17 13: 56 Text: Status: Complete Freq: Document 05/15/17 13:56 GSUN (Rec: 05/15/17 14:18 GSUN [id number]) Nutritional Asmnt/Malnutrition Patient General Information Nutritional Screening High Risk Screening Diagnosis PNA, NICK, icnreasing renal failure, CVA, CHF, DM Pertinent Medical Hx/Surgical Hx CVA, dementia, afib, CAD, HTN, dyslipidemia, epilepsy, GERD, aspiration PNA, DM, CKD, dehydration, C. diff, anemia D Subjective Information 86 year old male from SNF. Pt greeted RD. Pt is overall thin , moderate to severe wasting to chest, clavicles, extremities. Observed Glytrol running at 60ml/hr x20hrs during visit. Unable to obtain CBW due to bedscale not calibrated. Discussed with YVETTE Farooq regarding tube feeding recommendations. Current Diet Order/ Nutrition Support Glytrol at 60ml/hr x 20hrs, providing 1200kcal 54g protein Pertinent Medications Lipitor, Novolog, Levemir, Cephulac, Morphine, Protonix, Nacl 0.9% Pertinent Labs 05/13: potassium 5.3H, BUN 80H, creatinine 2.4H, glucose 103 05/15: potassium WNL, BUN 70H, creatinine 2.4H, glucose 239H, A1c 6.1H, phosphorus 5.4H Nutritional Hx/Data Height 1.68 m Height (Calculated Centimeters) 167.6 Current Weight (lbs) 65.771 kg Weight (Calculated Kilograms) 65.8 Weight (Calculated Grams) 30606.9 Murphy Body Weight 142 Weight Status Approriate GI Symptoms Difficult in: Swallowing Cultural/Ethnic/[employer] Belief [facility]: Glucerna 1.2 at 85ml/hr x 20hrs, providing 2040kcal, promote weight gain. Skin Integrity/Comment: Gee 12. Skin intact. Estimated Nutritional Goals Calories/Kcals/Kg CBW 145lb/65.9kg Kcals Calculated 1976-7kcal (30-35kcal/kg) Protein Calculated 46-92g (0.7-1.4g/kg, renal vs moderate to severe wasting) Fluid: ml Per MD (renal) Nutritional Problem 2. Problem Problem Impaired nutrient utilization related to Etiology NICK, hx CKD aeb Signs/Symptoms: "increasing renal failure," potaasum 5.3H on adm, BUN 70H, stock letterer 2.4H, phosphorus 5.4H 1. Problem Problem Inadequate intake from enteral nutrition infusion related to Etiology estimated nutritional needs aeb Signs/Symptoms: providing to meet 61% lower end kcal needs Intervention/Recommendation Comments 1. Recommend Novasource Renal at 50ml/hr x 20hrs, providing 2000kcal and 91g protein. Current order Glytrol at 60ml/ hr x 20hrs is only providing 1200kcal, pt recieves 2040kcal at [facility]. Expected Outcomes/Goals Expected Outcomes/Goals 1. Pt to meet at least 100% of estimated nutritional needs on tube feeding with tolerance .
[2017-05-22] MEDS: Amino Acids 3% / Electrolytes 1,000 ML IV SCH (16:27)
--- NOTE | 2017-05-22 17:28 | General Progress Note ---
Subjective - Review of Systems Service Date: 05/22/17 Subjective: Patient seen and examined in ICU more alert remains on vent started on PPN Objective - Results Result Diagrams: 05/22/17 04:44 05/22/17 04:44 Recent Labs: Laboratory Last Values WBC 12.3 Th/cmm (4.8-10.8) H D 05/22/17 04:44 RBC 2.76 Mil/cmm (3.80-5.80) L 05/22/17 04:44 Hgb 7.9 gm/dL (12.6-17.4) L* 05/22/17 04:44 Hct 23.4 % (39.0-49.0) L* 05/22/17 04:44 MCV 84.9 fl (80-99) 05/22/17 04:44 MCH 28.5 pg (27.0-31.0) 05/22/17 04:44 MCHC Differential 33.6 pg (28.0-36.0) 05/22/17 04:44 RDW 15.3 % (11.5-20.0) 05/22/17 04:44 Plt Count 162 Th/cmm (150-400) 05/22/17 04:44 MPV 8.7 fl 05/22/17 04:44 Neutrophils % 75.7 % (40.0-80.0) 05/18/17 07:33 Band Neutrophils % 14 % (0-10) H 05/22/17 04:44 Lymphocytes % 13.2 % (20.0-50.0) L 05/18/17 07:33 Monocytes % 8.3 % (2.0-10.0) 05/18/17 07:33 Eosinophils % 2.0 % (0.0-5.0) 05/18/17 07:33 Basophils % 0.8 % (0.0-2.0) 05/18/17 07:33 Neutrophils (Manual) 78 % (40-80) 05/22/17 04:44 Lymphocytes 4 % (20-50) L 05/22/17 04:44 Monocytes 3 % (2-10) 05/22/17 04:44 Eosinophils 1 % (0-5) 05/20/17 04:50 Metamyelocytes 1 % (0-0) H 05/22/17 04:44 Platelet Estimate ADEQUATE (NORMAL) 05/22/17 04:44 Platelet Morphology NORMAL (NORMAL) 05/22/17 04:44 Anisocytosis 1+ 05/22/17 04:44 RBC Morph Micro Appear ABNORMAL (NORMAL) 05/22/17 04:44 Eos Smear Source URINE 05/14/17 18:00 Eos Smear Total Cells FEW EOSINOPHILS SEEN (NONE SEEN) 05/14/17 18:00 PT 11.9 SECONDS (9.5-11.5) H 05/13/17 17:42 INR 1.13 (0.5-1.4) 05/13/17 17:42 PTT (Actin FS) 30.5 SECONDS (26.0-38.0) 05/15/17 12:30 Specimen Source Arterial 05/22/17 10:30 Sample Site Right Radial 05/22/17 10:30 pH 7.45 (7.35-7.45) 05/22/17 10:30 pCO2 35.0 mmHg (35.0-45.0) 05/22/17 10:30 pO2 109.0 mmHg (80.0-100.0) H 05/22/17 10:30 HCO3 25.4 mEq/L (20.0-26.0) 05/22/17 10:30 Base Excess 0.6 mEq/L (-3.0-3.0) 05/22/17 10:30 O2 Saturation 98.0 % (92.0-100.0) 05/22/17 10:30 Feliciano Test YES 05/22/17 10:30 Vent Rate 24 05/22/17 10:30 Inspired O2 50 05/22/17 10:30 Tidal Volume 500 05/22/17 10:30 PEEP NA 05/22/17 10:30 Pressure (ins/psv/peep) NA 05/22/17 10:30 Critical Value E.MCNEAL 05/22/17 10:30 Sodium 136 mEq/L (136-145) 05/22/17 04:44 Potassium 3.8 mEq/L (3.5-5.1) 05/22/17 04:44 Chloride 101 mEq/L (98-107) 05/22/17 04:44 Carbon Dioxide 25.1 mEq/L (21.0-31.0) 05/22/17 04:44 Anion Gap 13.7 (7.0-16.0) 05/22/17 04:44 BUN 56 mg/dL (7-25) H 05/22/17 04:44 Creatinine 2.8 mg/dL (0.7-1.3) H 05/22/17 04:44 Est GFR ( Amer) TNP 05/22/17 04:44 Est GFR (Non-Af Amer) TNP 05/22/17 04:44 BUN/Creatinine Ratio 20.0 05/22/17 04:44 Glucose 179 mg/dL (70-105) H 05/22/17 04:44 POC Glucose 192 MG/DL (70 - 105) H 05/22/17 05:43 Hemoglobin A1c % 6.1 % (4.0-6.0) H 05/15/17 06:30 Plasma/Ser Osmolality 301 mOsmol/kg (280-301) 05/14/17 18:20 Whole Bld Lactic Acid 1.58 mmol/L (0.60-1.99) 05/13/17 17:42 Uric Acid 7.7 mg/dL (4.4-7.6) H 05/15/17 06:30 Calcium 9.0 mg/dL (8.6-10.3) 05/22/17 04:44 Phosphorus 5.4 mg/dL (2.5-5.0) H 05/15/17 06:30 Magnesium 2.2 mg/dL (1.9-2.7) 05/15/17 06:30 Total Bilirubin 0.7 mg/dL (0.3-1.0) 05/22/17 04:44 Direct Bilirubin 0.09 mg/dL (0.0-0.2) 05/19/17 04:50 AST 36 U/L (13-39) 05/22/17 04:44 ALT 9 U/L (7-52) 05/22/17 04:44 Alkaline Phosphatase 80 U/L (34-104) 05/22/17 04:44 Ammonia 65 umol/L (16-53) H 05/19/17 04:50 Creatine Kinase 35 U/L (30-223) 05/16/17 23:06 Troponin I 0.02 ng/mL (0.01-0.05) 05/16/17 23:06 B-Natriuretic Peptide 1160.0 pg/mL (5.0-100.0) H 05/22/17 04:44 Total Protein 6.3 gm/dL (6.0-8.3) 05/22/17 04:44 Albumin 3.5 gm/dL (4.2-5.5) L 05/22/17 04:44 Globulin 2.8 gm/dL 05/22/17 04:44 Albumin/Globulin Ratio 1.3 (1.0-1.8) 05/22/17 04:44 Prealbumin 14 mg/dL (9-32) 05/18/17 07:33 TSH 2.74 uIU/ml (0.34-5.60) 05/15/17 06:30 Urine Source CATH 05/13/17 19:50 Urine Color YELLOW 05/13/17 19:50 Urine Clarity CLOUDY (CLEAR) 05/13/17 19:50 Urine pH 6.0 05/13/17 19:50 Ur Specific [place] 1.015 (1.005-1.030) 05/13/17 19:50 Urine Protein 100 mg/dL (NEGATIVE) H 05/13/17 19:50 Urine Glucose (UA) NEGATIVE mg/dL (NEGATIVE) 05/13/17 19:50 Urine Ketones NEGATIVE mg/dL (NEGATIVE) 05/13/17 19:50 Urine Blood LARGE (NEGATIVE) H 05/13/17 19:50 Urine Nitrate NEGATIVE (NEGATIVE) 05/13/17 19:50 Urine Bilirubin NEGATIVE (NEGATIVE) 05/13/17 19:50 Urine Urobilinogen 0.2 E.U./dL (0.2 - 1.0) 05/13/17 19:50 Ur Leukocyte Esterase LARGE (NEGATIVE) H 05/13/17 19:50 Urine RBC 50-100 /hpf (0-5) H 05/13/17 19:50 Urine WBC >100 /hpf (0-5) H 05/13/17 19:50 Ur Epithelial Cells NONE SEEN /lpf (FEW) 05/13/17 19:50 Urine Bacteria NONE SEEN /hpf (NONE SEEN) 05/13/17 19:50 Ur Random Sodium 30 mmol/L 05/14/17 18:00 Urine Creatinine 36.4 mg/dl (Not Estab.) 05/14/17 18:00 Urine Microalbumin 363.5 ug/mL (Not Estab.) 05/14/17 18:00 Microalb/Creat Ratio 998.6 mg/g creat (0.0-30.0) H 05/14/17 18:00 Random Vancomycin 19.1 ug/mL (5.0-40.0) 05/19/17 04:50 Hepatitis A IgM Ab Negative (Negative) 05/21/17 04:46 Hep Bs Antigen Negative (Negative) 05/21/17 04:46 Hep B Core IgM Ab Negative (Negative) 05/21/17 04:46 Hepatitis C Antibody 0.1 s/co ratio (0.0-0.9) 05/21/17 04:46 Blood Type B POSITIVE 05/21/17 10:19 Antibody Screen NEGATIVE 05/21/17 10:19 Crossmatch See Detail 05/21/17 10:19 - Physical Exam Vitals and I&O: Vital Signs Temp -99 F 05/22/17 16:00 Pulse 123 05/22/17 17:00 Resp 24 05/22/17 17:00 BP 107/56 05/22/17 17:00 Pulse Ox 98 05/22/17 17:00 Intake & Output 05/21/17 05/22/17 05/22/17 18:59 06:59 18:59 Intake Total 250 400 Output Total 1056 Balance 250 -656 Weight (lbs) 62.596 kg 62.596 kg Intake: Intake, IV Amount 150 50 Doxycycline Hyclate 100 100 mg In Dextrose 5% 100 ml @ 100 mls/hr IV Q12H [facility] Rx#:[id number] Piperacillin Sodium/ 50 50 Tazobact 2.25 gm In Sodium Chloride 0.9% 50 ml @ 100 mls/hr IV Q8HR [facility] Rx#:[id number] Tube Feeding 40 Blood Product 250 Other 100 60 Output: Urine 55 Hemodialysis 1000 Other 1 Other: Stool Characteristics Soft Soft Soft Active Medications: Current Medications Acetaminophen (Tylenol) 650 mg PO Q4HR PRN PRN Reason: Pain Or Fever above 101 Stop: 07/14/17 15:15 Last Admin: 05/17/17 11:11 Dose: 650 mg Albuterol/Ipratropium (Duoneb Neb) 3 ml HHN Q4HRT [facility] Stop: 07/19/17 14:59 Last Admin: 05/22/17 16:29 Dose: 3 ml Atorvastatin Calcium (Lipitor) 10 mg GT HS YESSICA PRN Reason: Protocol Stop: 07/14/17 20:59 Last Admin: 05/21/17 21:08 Dose: 10 mg Budesonide (Pulmicort) 1 mg HHN BIDRT YESSICA Stop: 07/19/17 18:59 Carbidopa/Levodopa (Sinemet 25mg-100 Mg) 1 tab PO TID YESSICA Stop: 07/14/17 08:59 Last Admin: 05/22/17 09:16 Dose: 1 tab Dextrose (D50w) 50 ml IVP PRN PRN; Protocol PRN Reason: HYPOGLYCEMIA Stop: 07/20/17 00:54 Last Admin: 05/21/17 13:26 Dose: 50 ml Furosemide (Lasix) 40 mg IVP DAILY [facility] Stop: 07/18/17 08:59 Last Admin: 05/22/17 09:14 Dose: 40 mg Heparin Sodium (Porcine) (Heparin) 5,000 units SUBQ Q8H YESSICA Stop: 07/14/17 14:59 Last Admin: 05/22/17 15:09 Dose: 5,000 units Norepinephrine Bitartrate 8 mg (/ Dextrose) 258 mls @ 0 mls/hr IV TITR PRN; Protocol; Titrate PRN Reason: BP MAINTENANCE (PER PROTOCOL) Stop: 07/19/17 12:29 Last Admin: 05/21/17 01:06 Dose: 10 mcg/min, 19.35 mls/hr Phenylephrine HCl 10 mg/ (Sodium Chloride) 250 mls @ 0 mls/hr IV TITR YESSICA; Per Protocol PRN Reason: Protocol Stop: 07/19/17 12:59 Dextrose/Sodium Chloride (D5-0.45ns) 1,000 mls @ 40 mls/hr IV .Q24H YESSICA Stop: 07/20/17 18:07 Last Admin: 05/21/17 18:52 Dose: 40 mls/hr Tigecycline 50 mg/ Sodium (Chloride) 100 mls @ 100 mls/hr IV Q12H [facility] Stop: 07/21/17 18:59 Fluconazole (Diflucan) 100 mg in 50 mls @ 50 mls/hr IV Q24HR [facility] Stop: 07/21/17 04:59 Last Admin: 05/22/17 04:37 Dose: 50 mls/hr Amino Acids/Electrolytes (Procalamine) 1,000 mls @ 40 mls/hr IV .Q24H [facility] Stop: 07/21/17 15:59 Last Admin: 05/22/17 16:27 Dose: 40 mls/hr Insulin Aspart (Novolog Insulin Sliding Scale) 0 units SUBQ Q6HR YESSICA PRN Reason: Protocol Stop: 07/14/17 00:00 Last Admin: 05/22/17 11:45 Dose: 2 units Insulin Detemir (Levemir Insulin) 20 units SUBQ DAILY YESSICA PRN Reason: Protocol Stop: 07/18/17 08:59 Last Admin: 05/22/17 09:36 Dose: 20 units Ipratropium [place] (Atrovent Neb 0.5mg/2.5ml) 0.5 mg HHN Q4HRT [facility] Stop: 07/17/17 14:59 Last Admin: 05/20/17 04:46 Dose: 0.5 mg Isosorbide Dinitrate (Isordil) 10 mg GT TID [facility] Stop: 07/14/17 08:59 Last Admin: 05/22/17 14:05 Dose: 10 mg Lactobacillus Rhamnosus (Culturelle) 1 each PO DAILY [facility] Stop: 07/17/17 08:59 Last Admin: 05/22/17 09:14 Dose: 1 each Lactulose (Cephulac) 20 gm PO TID [facility] Stop: 07/14/17 08:59 Last Admin: 05/22/17 15:12 Dose: 20 gm Levetiracetam (Keppra) 250 mg NG BID [facility] Stop: 07/14/17 08:59 Last Admin: 05/22/17 16:53 Dose: 250 mg Lorazepam (Ativan) 1 mg IVP Q4H PRN; Protocol PRN Reason: Agitation Stop: 07/19/17 09:02 Metoclopramide HCl (Reglan) 5 mg IVP TID [facility] Stop: 07/20/17 20:59 Last Admin: 05/22/17 14:05 Dose: 5 mg Metoprolol Tartrate (Lopressor) 50 mg GT Q8H YESSICA Stop: 07/18/17 08:59 Last Admin: 05/22/17 16:54 Dose: 50 mg Metoprolol Tartrate (Lopressor) 25 mg PO BID [facility] Stop: 07/19/17 08:59 Last Admin: 05/22/17 16:55 Dose: 25 mg Miscellaneous (Vte Chemical Prophylaxis Screen/ Admission) 1 ea [facility] PRN PRN PRN Reason: PROTOCOL Stop: 07/14/17 09:25 Miscellaneous (Clinical Monitoring) 1 ea MC DAILY PRN PRN Reason: RENAL Stop: 07/15/17 12:32 Miscellaneous (Probiotic Screen) 1 ea [facility] PRN PRN PRN Reason: PROTOCOL Stop: 07/16/17 09:33 Miscellaneous (Ppn Per Pharmacy) 1 ea [facility] PRN PRN PRN Reason: PROTOCOL Stop: 07/21/17 10:23 Mupirocin (Bactroban Oint) 1 appl TP BID YESSICA Stop: 07/14/17 16:59 Last Admin: 05/22/17 10:04 Dose: 1 appl Pantoprazole Sodium (Protonix) 40 mg GT DAILY YESSICA Stop: 07/14/17 08:59 Last Admin: 05/22/17 10:04 Dose: 40 mg General: Alert, No acute distress, Moderate distress, Other (Altered) HEENT: Atraumatic, Mucous membr. moist/pink Neck: Supple, +2 carotid pulse wo bruit Cardiovascular: Regular rate, Normal S1, Normal S2, Other (afib on the monitor) Lungs: Clear to auscultation (rales bilaterally), Other (bilateral rales better) Abdomen: Bowel sounds, Soft, no Distended Extremities: no Edema Neurological: Sensation intact Skin: no Rash Psych/Mental Status: Mood NL - Procedures Procedures: Procedures Procedure Code Date INSERT EMERGENCY AIRWAY 91404 05/13/17 INSERT TUNNELED CV CATH [id number] 05/13/17 INSERTION OF ENDOTRACHEAL AIRWAY INTO TRACHEA, VIA OPENING [id number] 05/13/17 INSERTION OF INFUSION DEV INTO R FEMOR VEIN, PERC APPROACH [id number] 05/13/17 RESPIRATORY VENTILATION, LESS THAN 24 CONSECUTIVE HOURS [id number] 05/13/17 VENT MGMT INPAT INIT DAY 37059 05/13/17 Assessment/Plan - Problem List Patient Problems: All Active Problems COUGH AND CONGESTION (Acute) - Assessment Assessment: Current Active Problems Problem Status Onset COUGH AND CONGESTION Acute Anemia Acute respiratory failure on vent Altered mental state improving CHF little better Worsening Renal failure on HD Pneumonia Afib RVR UTI CAD 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 HTN renal disease Seizure disorder - Plan Plan: HH better post transfusion Tygacil per ID rec s/p HD today Continue vent support Continue antibiotics PPN started for nutritional support Off vasopressor feeding on hold due to tolerance issue Plan of care discussed with nursing staff Nutritional Asmnt/Malnutr-PDOC - Dietary Evaluation Malnutrition Findings (Please click <Entered> for more info): Nutritional Asmnt/Malnutrition Start: 05/15/17 13: 56 Text: Status: Complete Freq: Document 05/15/17 13:56 GSUN (Rec: 05/15/17 14:18 GSUN [id number]) Nutritional Asmnt/Malnutrition Patient General Information Nutritional Screening High Risk Screening Diagnosis PNA, NICK, icnreasing renal failure, CVA, CHF, DM Pertinent Medical Hx/Surgical Hx CVA, dementia, afib, CAD, HTN, dyslipidemia, epilepsy, GERD, aspiration PNA, DM, CKD, dehydration, C. diff, anemia D Subjective Information 86 year old male from SNF. Pt greeted RD. Pt is overall thin , moderate to severe wasting to chest, clavicles, extremities. Observed Glytrol running at 60ml/hr x20hrs during visit. Unable to obtain CBW due to bedscale not calibrated. Discussed with YVETTE Farooq regarding tube feeding recommendations. Current Diet Order/ Nutrition Support Glytrol at 60ml/hr x 20hrs, providing 1200kcal 54g protein Pertinent Medications Lipitor, Novolog, Levemir, Cephulac, Morphine, Protonix, Nacl 0.9% Pertinent Labs 05/13: potassium 5.3H, BUN 80H, creatinine 2.4H, glucose 103 05/15: potassium WNL, BUN 70H, creatinine 2.4H, glucose 239H, A1c 6.1H, phosphorus 5.4H Nutritional Hx/Data Height 1.68 m Height (Calculated Centimeters) 167.6 Current Weight (lbs) 65.771 kg Weight (Calculated Kilograms) 65.8 Weight (Calculated Grams) 22618.9 [place] Body Weight 142 Weight Status Approriate GI Symptoms Difficult in: Swallowing Cultural/Ethnic/[employer] [place] [facility]: Glucerna 1.2 at 85ml/hr x 20hrs, providing 2040kcal, promote weight gain. Skin Integrity/Comment: Gee 12. Skin intact. Estimated Nutritional Goals Calories/Kcals/Kg CBW 145lb/65.9kg Kcals Calculated 1976-2306kcal (30-35kcal/kg) Protein Calculated 46-92g (0.7-1.4g/kg, renal vs moderate to severe wasting) Fluid: ml Per MD (renal) Nutritional Problem 2. Problem Problem Impaired nutrient utilization related to Etiology NICK, hx CKD aeb Signs/Symptoms: "increasing renal failure," potaasum 5.3H on adm, BUN 70H, revival clerk 2.4H, phosphorus 5.4H 1. Problem Problem Inadequate intake from enteral nutrition infusion related to Etiology estimated nutritional needs aeb Signs/Symptoms: providing to meet 61% lower end kcal needs Intervention/Recommendation Comments 1. Recommend Novasource Renal at 50ml/hr x 20hrs, providing 2000kcal and 91g protein. Current order Glytrol at 60ml/ hr x 20hrs is only providing 1200kcal, pt recieves 2040kcal at [facility]. Expected Outcomes/Goals Expected Outcomes/Goals 1. Pt to meet at least 100% of estimated nutritional needs on tube feeding with tolerance .
[2017-05-22] MEDS: Dextrose 50% 50 mL Abboject IVP PRN ×2 (18:49→23:34)
[2017-05-22] MEDS: Atorvastatin Calcium 10 MG TAB GT SCH (21:06)
[2017-05-23] MEDS: INSULIN ASPART SLIDING SCALE 100 UNITS/ML UNIT SUBQ SCH ×4 (00:13→18:16)
[2017-05-23] MEDS: Albuterol/Ipratropium Neb 3 ML AERS HHN SCH ×6 (02:07→22:43)
[2017-05-23] MEDS: Fluconazole 100mg/50mL 100 MG/50 ML BOTTLE IV SCH (04:36)
[2017-05-23 05:44] LABS: MEAN CELL VOLUME 84.3 fl (80-99); MEAN CORPUSCULAR HEMOGLOBIN 28.1 pg (27.0-31.0); MEAN CORPUSCULAR HGB CONC 33.4 pg (28.0-36.0); MEAN PLATELET VOLUME 8.7 fl; PLATELET COUNT 155 Th/cmm (150-400); RED BLOOD COUNT 2.76 Mil/cmm (3.80-5.80); RED CELL DISTRIBUTION WIDTH 15.3 % (11.5-20.0)
[2017-05-23 05:59] LABS: ALB/GLOB RATIO 1.2 (1.0-1.8); ALKALINE PHOSPHATASE 72 U/L (34-104); ANION GAP 12.2 (7.0-16.0); BILIRUBIN,TOTAL 0.5 mg/dL (0.3-1.0); BUN - UREA NITROGEN 47 mg/dL (7-25); BUN/CREATININE RATIO 18.1; CALCIUM SERUM 8.9 mg/dL (8.6-10.3); CARBON DIOXIDE 23.2 mEq/L (21.0-31.0); CHLORIDE 105 mEq/L (98-107); CREATININE - SERUM 2.6 mg/dL (0.7-1.3); GLUCOSE 90 mg/dL (70-105); POTASSIUM SERUM 3.4 mEq/L (3.5-5.1); SGOT 21 U/L (13-39); SGPT/ALT 5 U/L (7-52); SODIUM SERUM 137 mEq/L (136-145)
[2017-05-23 06:00] LABS: MAGNESIUM 1.8 mg/dL (1.9-2.7)
[2017-05-23 06:08] LABS: HEMATOCRIT 23.3 % (39.0-49.0); HEMOGLOBIN 7.8 gm/dL (12.6-17.4)
[2017-05-23 07:54] LABS: TOTAL CELLS COUNTED 100
[2017-05-23 07:55] LABS: BAND NEUTROPHILE 10 % (0-10); NEUTROPHILS 75 % (40-80)
[2017-05-23 08:02] LABS: PLATELET ESTIMATE ADEQUATE (NORMAL); TOXIC GRANULATION 1+
[2017-05-23] MEDS: Budesonide 0.5 Mg/2 mL Ud HHN SCH ×2 (08:05→20:09)
[2017-05-23] MEDS: Insulin Detemir 100 units/mL 10mL Vial SUBQ SCH (08:59)
[2017-05-23] MEDS: Lactobacillus Rhamnosus 10 Billion CFU Capsule PO SCH (08:59)
[2017-05-23] MEDS: Pantoprazole 40 mg/Packet GT SCH (08:59)
[2017-05-23] MEDS: Lactulose 10 Gm/15 mL 30mL UDC PO SCH ×2 (09:00→13:08)
[2017-05-23] MEDS: Metoclopramide 5 mg/mL 2mL Vial IVP SCH ×3 (09:00→20:50)
[2017-05-23] MEDS: Levetiracetam 500 mg/5mL 5mL UDC NG SCH ×2 (09:03→16:04)
[2017-05-23 09:16] LABS: ABG SOURCE Arterial; ALLEN TEST YES; BE(B) 0.9 mEq/L (-3.0-3.0); FIO2 40; HCO3 25.6 mEq/L (20.0-26.0); MECH RATE 24; MECH VT 500; pH 7.48 (7.35-7.45)
--- NOTE | 2017-05-23 09:30 | Diagnostic Imaging Report ---
CHEST X-RAY: AP view INDICATION: Shortness of breath COMPARISON: 05/22/2017 FINDINGS: ET tube is seen with tip 6 cm above the matias. Diffuse bilateral pulmonary infiltrates are again noted and bilateral effusions. Mild cardiomegaly is noted. IMPRESSION: Persistent CHF with bilateral infiltrates and effusions Endotracheal tube with tip 6 cm above the Matias.
[2017-05-23] MEDS ORDERED: Diltiazem 5 mg/mL 5mL Vial IVP STA (10:04)
--- NOTE | 2017-05-23 14:22 | General Progress Note ---
Subjective - Review of Systems Service Date: 05/23/17 Subjective: sleeping, on vent, nonverbal Objective - Results Result Diagrams: 05/23/17 04:48 05/23/17 04:48 Recent Labs: Laboratory Last Values WBC 11.0 Th/cmm (4.8-10.8) H 05/23/17 04:48 RBC 2.76 Mil/cmm (3.80-5.80) L 05/23/17 04:48 Hgb 7.8 gm/dL (12.6-17.4) L* 05/23/17 04:48 Hct 23.3 % (39.0-49.0) L* 05/23/17 04:48 MCV 84.3 fl (80-99) 05/23/17 04:48 MCH 28.1 pg (27.0-31.0) 05/23/17 04:48 MCHC Differential 33.4 pg (28.0-36.0) 05/23/17 04:48 RDW 15.3 % (11.5-20.0) 05/23/17 04:48 Plt Count 155 Th/cmm (150-400) 05/23/17 04:48 MPV 8.7 fl 05/23/17 04:48 Neutrophils % 75.7 % (40.0-80.0) 05/18/17 07:33 Band Neutrophils % 10 % (0-10) 05/23/17 04:48 Lymphocytes % 13.2 % (20.0-50.0) L 05/18/17 07:33 Monocytes % 8.3 % (2.0-10.0) 05/18/17 07:33 Eosinophils % 2.0 % (0.0-5.0) 05/18/17 07:33 Basophils % 0.8 % (0.0-2.0) 05/18/17 07:33 Neutrophils (Manual) 75 % (40-80) 05/23/17 04:48 Lymphocytes 7 % (20-50) L 05/23/17 04:48 Monocytes 8 % (2-10) 05/23/17 04:48 Eosinophils 1 % (0-5) 05/20/17 04:50 Metamyelocytes 1 % (0-0) H 05/22/17 04:44 Toxic Granulation 1+ 05/23/17 04:48 Platelet Estimate ADEQUATE (NORMAL) 05/23/17 04:48 Platelet Morphology NORMAL (NORMAL) 05/22/17 04:44 Anisocytosis 1+ 05/22/17 04:44 RBC Morph Micro Appear ABNORMAL (NORMAL) 05/22/17 04:44 Eos Smear Source URINE 05/14/17 18:00 Eos Smear Total Cells FEW EOSINOPHILS SEEN (NONE SEEN) 05/14/17 18:00 PT 11.9 SECONDS (9.5-11.5) H 05/13/17 17:42 INR 1.13 (0.5-1.4) 05/13/17 17:42 PTT (Actin FS) 30.5 SECONDS (26.0-38.0) 05/15/17 12:30 Specimen Source Arterial 05/23/17 09:08 Sample Site Right Radial 05/23/17 09:08 pH 7.48 (7.35-7.45) H 05/23/17 09:08 pCO2 32.0 mmHg (35.0-45.0) L 05/23/17 09:08 pO2 80.0 mmHg (80.0-100.0) 05/23/17 09:08 HCO3 25.6 mEq/L (20.0-26.0) 05/23/17 09:08 Base Excess 0.9 mEq/L (-3.0-3.0) 05/23/17 09:08 O2 Saturation 97.0 % (92.0-100.0) 05/23/17 09:08 Feliciano Test YES 05/23/17 09:08 Vent Rate 24 05/23/17 09:08 Inspired O2 40 05/23/17 09:08 Tidal Volume 500 05/23/17 09:08 PEEP NA 05/23/17 09:08 Pressure (ins/psv/peep) NA 05/23/17 09:08 Critical Value E.MCNEAL 05/23/17 09:08 Sodium 137 mEq/L (136-145) 05/23/17 04:48 Potassium 3.4 mEq/L (3.5-5.1) L 05/23/17 04:48 Chloride 105 mEq/L (98-107) 05/23/17 04:48 Carbon Dioxide 23.2 mEq/L (21.0-31.0) 05/23/17 04:48 Anion Gap 12.2 (7.0-16.0) 05/23/17 04:48 BUN 47 mg/dL (7-25) H 05/23/17 04:48 Creatinine 2.6 mg/dL (0.7-1.3) H 05/23/17 04:48 Est GFR ( Amer) TNP 05/23/17 04:48 Est GFR (Non-Af Amer) TNP 05/23/17 04:48 BUN/Creatinine Ratio 18.1 05/23/17 04:48 Glucose 90 mg/dL (70-105) 05/23/17 04:48 POC Glucose 171 MG/DL (70 - 105) H 05/23/17 12:53 Hemoglobin A1c % 6.1 % (4.0-6.0) H 05/15/17 06:30 Plasma/Ser Osmolality 301 mOsmol/kg (280-301) 05/14/17 18:20 Whole Bld Lactic Acid 1.58 mmol/L (0.60-1.99) 05/13/17 17:42 Uric Acid 7.7 mg/dL (4.4-7.6) H 05/15/17 06:30 Calcium 8.9 mg/dL (8.6-10.3) 05/23/17 04:48 Phosphorus 2.0 mg/dL (2.5-5.0) L 05/23/17 04:44 Magnesium 1.8 mg/dL (1.9-2.7) L 05/23/17 04:44 Total Bilirubin 0.5 mg/dL (0.3-1.0) 05/23/17 04:48 Direct Bilirubin 0.09 mg/dL (0.0-0.2) 05/19/17 04:50 AST 21 U/L (13-39) 05/23/17 04:48 ALT 5 U/L (7-52) L 05/23/17 04:48 Alkaline Phosphatase 72 U/L (34-104) 05/23/17 04:48 Ammonia 65 umol/L (16-53) H 05/19/17 04:50 Creatine Kinase 35 U/L (30-223) 05/16/17 23:06 Troponin I 0.02 ng/mL (0.01-0.05) 05/16/17 23:06 B-Natriuretic Peptide 739.0 pg/mL (5.0-100.0) H 05/23/17 04:48 Total Protein 6.1 gm/dL (6.0-8.3) 05/23/17 04:48 Albumin 3.3 gm/dL (4.2-5.5) L 05/23/17 04:48 Globulin 2.8 gm/dL 05/23/17 04:48 Albumin/Globulin Ratio 1.2 (1.0-1.8) 05/23/17 04:48 Prealbumin 14 mg/dL (9-32) 05/18/17 07:33 TSH 2.74 uIU/ml (0.34-5.60) 05/15/17 06:30 Urine Source CATH 05/13/17 19:50 Urine Color YELLOW 05/13/17 19:50 Urine Clarity CLOUDY (CLEAR) 05/13/17 19:50 Urine pH 6.0 05/13/17 19:50 Ur Specific [place] 1.015 (1.005-1.030) 05/13/17 19:50 Urine Protein 100 mg/dL (NEGATIVE) H 05/13/17 19:50 Urine Glucose (UA) NEGATIVE mg/dL (NEGATIVE) 05/13/17 19:50 Urine Ketones NEGATIVE mg/dL (NEGATIVE) 05/13/17 19:50 Urine Blood LARGE (NEGATIVE) H 05/13/17 19:50 Urine Nitrate NEGATIVE (NEGATIVE) 05/13/17 19:50 Urine Bilirubin NEGATIVE (NEGATIVE) 05/13/17 19:50 Urine Urobilinogen 0.2 E.U./dL (0.2 - 1.0) 05/13/17 19:50 Ur Leukocyte Esterase LARGE (NEGATIVE) H 05/13/17 19:50 Urine RBC 50-100 /hpf (0-5) H 05/13/17 19:50 Urine WBC >100 /hpf (0-5) H 05/13/17 19:50 Ur Epithelial Cells NONE SEEN /lpf (FEW) 05/13/17 19:50 Urine Bacteria NONE SEEN /hpf (NONE SEEN) 05/13/17 19:50 Ur Random Sodium 30 mmol/L 05/14/17 18:00 Urine Creatinine 36.4 mg/dl (Not Estab.) 05/14/17 18:00 Urine Microalbumin 363.5 ug/mL (Not Estab.) 05/14/17 18:00 Microalb/Creat Ratio 998.6 mg/g creat (0.0-30.0) H 05/14/17 18:00 Random Vancomycin 19.1 ug/mL (5.0-40.0) 05/19/17 04:50 Hepatitis A IgM Ab Negative (Negative) 05/21/17 04:46 Hep Bs Antigen Negative (Negative) 05/21/17 04:46 Hep B Core IgM Ab Negative (Negative) 05/21/17 04:46 Hepatitis C Antibody 0.1 s/co ratio (0.0-0.9) 05/21/17 04:46 Blood Type B POSITIVE 05/21/17 10:19 Antibody Screen NEGATIVE 05/21/17 10:19 Crossmatch See Detail 05/21/17 10:19 - Physical Exam Vitals and I&O: Vital Signs Temp 98.8 F 05/23/17 12:00 Pulse 113 05/23/17 13:07 Resp 24 05/23/17 13:00 BP 142/79 05/23/17 13:07 Pulse Ox 99 05/23/17 13:00 Intake & Output 05/22/17 05/23/17 05/23/17 18:59 06:59 18:59 Intake Total 100 710 100 Output Total 2050 10 Balance -1950 700 100 Weight (lbs) 62.596 kg 62.596 kg Intake: Intake, IV Amount 150 100 Fluconazole 100mg/50mL 50 100 mg In 50 ml @ 50 mls/ hr IV Q24HR [facility] Rx#: [id number] Tigecycline 50 mg In 100 100 Sodium Chloride 0.9% 100 ml @ 100 mls/hr IV Q12H [facility] Rx#:[id number] TPN/PPN 480 Albumin 100 Other 80 Output: Urine 50 10 Hemodialysis 2000 Other: Stool Characteristics Soft Soft Active Medications: Current Medications Acetaminophen (Tylenol) 650 mg PO Q4HR PRN PRN Reason: Pain Or Fever above 101 Stop: 07/14/17 15:15 Last Admin: 05/17/17 11:11 Dose: 650 mg Albuterol/Ipratropium (Duoneb Neb) 3 ml HHN Q4HRT [facility] Stop: 07/19/17 14:59 Last Admin: 05/23/17 12:46 Dose: 3 ml Atorvastatin Calcium (Lipitor) 10 mg GT HS YESSICA PRN Reason: Protocol Stop: 07/14/17 20:59 Last Admin: 05/22/17 21:06 Dose: 10 mg Budesonide (Pulmicort) 1 mg HHN BIDRT YESSICA Stop: 07/19/17 18:59 Last Admin: 05/23/17 08:05 Dose: 1 mg Carbidopa/Levodopa (Sinemet 25mg-100 Mg) 1 tab PO TID YESSICA Stop: 07/14/17 08:59 Last Admin: 05/23/17 13:08 Dose: 1 tab Dextrose (D50w) 50 ml IVP PRN PRN; Protocol PRN Reason: HYPOGLYCEMIA Stop: 07/20/17 00:54 Last Admin: 05/22/17 23:34 Dose: 50 ml Diltiazem HCl (Cardizem) 60 mg PO Q8HR [facility] Stop: 07/22/17 20:59 Furosemide (Lasix) 40 mg IVP DAILY YESSICA Stop: 07/18/17 08:59 Last Admin: 05/23/17 08:59 Dose: 40 mg Norepinephrine Bitartrate 8 mg (/ Dextrose) 258 mls @ 0 mls/hr IV TITR PRN; Protocol; Titrate PRN Reason: BP MAINTENANCE (PER PROTOCOL) Stop: 07/19/17 12:29 Last Admin: 05/21/17 01:06 Dose: 10 mcg/min, 19.35 mls/hr Phenylephrine HCl 10 mg/ (Sodium Chloride) 250 mls @ 0 mls/hr IV TITR YESSICA; Per Protocol PRN Reason: Protocol Stop: 07/19/17 12:59 Tigecycline 50 mg/ Sodium (Chloride) 100 mls @ 100 mls/hr IV Q12H [facility] Stop: 07/21/17 18:59 Last Infusion: 05/23/17 07:30 Dose: Infused Fluconazole (Diflucan) 100 mg in 50 mls @ 50 mls/hr IV Q24HR [facility] Stop: 07/21/17 04:59 Last Infusion: 05/23/17 05:35 Dose: Infused Amino Acids/Electrolytes (Procalamine) 1,000 mls @ 40 mls/hr IV .Q24H [facility] Stop: 05/23/17 16:00 Last Admin: 05/22/17 16:27 Dose: 40 mls/hr Diltiazem HCl 125 mg/ Dextrose 125 mls @ 10 mls/hr IV TITR YESSICA; 10 MG/HR PRN Reason: Protocol Stop: 07/22/17 10:03 Potassium Phosphate 15 mmole/ (Sodium Chloride) 255 mls @ 63.75 mls/hr IV ONCE ONE Stop: 05/23/17 18:29 Multivitamins/Minerals 5 ml/Dextrose/ Amino Acids/Electrolytes/ Sterile Water 1 ,819 mls @ 60 mls/hr IV .Q24H [facility] Stop: 07/22/17 15:59 Insulin Aspart (Novolog Insulin Sliding Scale) 0 units SUBQ Q6HR YESSICA PRN Reason: Protocol Stop: 07/14/17 00:00 Last Admin: 05/23/17 13:01 Dose: Not Given Insulin Detemir (Levemir Insulin) 10 units SUBQ DAILY YESSICA PRN Reason: Protocol Stop: 07/23/17 08:59 Ipratropium Esko (Atrovent Neb 0.5mg/2.5ml) 0.5 mg HHN Q4HRT [facility] Stop: 07/17/17 14:59 Last Admin: 05/20/17 04:46 Dose: 0.5 mg Isosorbide Dinitrate (Isordil) 10 mg GT TID [facility] Stop: 07/14/17 08:59 Last Admin: 05/23/17 13:07 Dose: 10 mg Lactobacillus Rhamnosus (Culturelle) 1 each PO DAILY [facility] Stop: 07/17/17 08:59 Last Admin: 05/23/17 08:59 Dose: 1 each Lactulose (Cephulac) 20 gm PO TID [facility] Stop: 07/14/17 08:59 Last Admin: 05/23/17 13:08 Dose: Not Given Levetiracetam (Keppra) 250 mg NG BID [facility] Stop: 07/14/17 08:59 Last Admin: 05/23/17 09:03 Dose: 250 mg Lorazepam (Ativan) 1 mg IVP Q4H PRN; Protocol PRN Reason: Agitation Stop: 07/19/17 09:02 Last Admin: 05/23/17 01:33 Dose: 1 mg Metoclopramide HCl (Reglan) 5 mg IVP TID [facility] Stop: 07/20/17 20:59 Last Admin: 05/23/17 13:09 Dose: Not Given Metoprolol Tartrate (Lopressor) 50 mg GT Q8H YESSICA Stop: 07/18/17 08:59 Last Admin: 05/23/17 11:36 Dose: Not Given Miscellaneous (Vte Chemical Prophylaxis Screen/ Admission) 1 ea MC PRN PRN PRN Reason: PROTOCOL Stop: 07/14/17 09:25 Miscellaneous (Clinical Monitoring) 1 ea MC DAILY PRN PRN Reason: RENAL Stop: 07/15/17 12:32 Miscellaneous (Probiotic Screen) 1 ea MC PRN PRN PRN Reason: PROTOCOL Stop: 07/16/17 09:33 Miscellaneous (Ppn Per Pharmacy) 1 ea MC PRN PRN PRN Reason: PROTOCOL Stop: 07/21/17 10:23 Mupirocin (Bactroban Oint) 1 appl TP BID YESSICA Stop: 07/14/17 16:59 Last Admin: 05/23/17 09:06 Dose: 1 appl Pantoprazole Sodium (Protonix) 40 mg GT DAILY YESSICA Stop: 07/14/17 08:59 Last Admin: 05/23/17 08:59 Dose: 40 mg General: Alert, No acute distress, Moderate distress, Other (Altered) HEENT: Atraumatic, Mucous membr. moist/pink Neck: Supple, +2 carotid pulse wo bruit Cardiovascular: Regular rate, Normal S1, Normal S2, Other (afib on the monitor) Lungs: Clear to auscultation (rales bilaterally), Other (bilateral rales better) Abdomen: Bowel sounds, Soft, no Distended Extremities: no Edema Neurological: Sensation intact Skin: no Rash Psych/Mental Status: Mood NL - Procedures Procedures: Procedures Procedure Code Date INSERT EMERGENCY AIRWAY 18666 05/13/17 INSERT TUNNELED CV CATH 12847 05/13/17 INSERTION OF ENDOTRACHEAL AIRWAY INTO TRACHEA, VIA OPENING [id number] 05/13/17 INSERTION OF INFUSION DEV INTO R FEMOR VEIN, PERC APPROACH 56MY68Y 05/13/17 RESPIRATORY VENTILATION, LESS THAN 24 CONSECUTIVE HOURS [id number] 05/13/17 VENT MGMT INPAT INIT DAY 01296 05/13/17 Assessment/Plan - Problem List Patient Problems: All Active Problems COUGH AND CONGESTION (Acute) - Assessment Assessment: NICK on CKD, now on dialysis A LOC secondary to metabolic encephalopathy/medications Dehydration Essential hypertension with CKD COPD Chronic atrial fibrillation Status post CVA Aspiration pneumonia/dysphagia status post PEG Type 2 diabetes mellitus with CKD Acute Decompensated CHF Acute Resp Failure on Vent Bradycardia - Plan Plan: Lab - Result Diagrams 05/15/17 06:30 05/15/17 06:30 Current Medications Acetaminophen (Tylenol) 650 mg PO Q4HR PRN PRN Reason: Pain Or Fever above 101 Stop: 07/14/17 15:15 Last Admin: 05/15/17 16:21 Dose: 650 mg Albuterol Sulfate (Albuterol 2.5mg/3ml Neb Ud) 2.5 mg HHN Q6HRT YESSICA Stop: 07/14/17 00:59 Last Admin: 05/15/17 16:05 Dose: 2.5 mg Atorvastatin Calcium (Lipitor) 10 mg GT HS YESSICA PRN Reason: Protocol Stop: 07/14/17 20:59 Carbidopa/Levodopa (Sinemet 25mg-100 Mg) 1 tab PO TID YESSICA Stop: 07/14/17 08:59 Last Admin: 05/15/17 14:02 Dose: 1 tab Heparin Sodium (Porcine) (Heparin) 5,000 units SUBQ Q8H YESSICA Stop: 07/14/17 14:59 Last Admin: 05/15/17 16:24 Dose: 5,000 units Sodium Chloride (Nacl 0.9%) 1,000 mls @ 60 mls/hr IV .[id number] [facility] Stop: 07/13/17 06:40 Last Admin: 05/14/17 17:16 Dose: 60 mls/hr Azithromycin 250 mg/ Sodium (Chloride) 250 mls @ 250 mls/hr IV Q24HR [facility] Stop: 05/20/17 08:59 Piperacillin Sod/Tazobactam (Sod 3.375 gm/ Sodium Chloride) 50 mls @ 100 mls/ hr IV Q8HR [facility] Stop: 07/14/17 15:14 Last Admin: 05/15/17 15:57 Dose: 100 mls/hr Insulin Aspart (Novolog Insulin Sliding Scale) 0 units SUBQ Q6HR YESSICA PRN Reason: Protocol Stop: 07/14/17 00:00 Last Admin: 05/15/17 17:09 Dose: Not Given Insulin Detemir (Levemir Insulin) 14 units SUBQ DAILY YESSICA PRN Reason: Protocol Stop: 07/15/17 08:59 Isosorbide Dinitrate (Isordil) 10 mg GT TID YESSICA Stop: 07/14/17 08:59 Last Admin: 05/15/17 14:02 Dose: 10 mg Lactulose (Cephulac) 20 gm PO TID YESSICA Stop: 07/14/17 08:59 Last Admin: 05/15/17 14:02 Dose: 20 gm Levetiracetam (Keppra) 250 mg NG BID YESSICA Stop: 07/14/17 08:59 Last Admin: 05/15/17 16:23 Dose: 250 mg Metoprolol Tartrate (Lopressor) 37.5 mg GT BID YESSICA Stop: 07/14/17 00:14 Last Admin: 05/15/17 16:22 Dose: 37.5 mg Miscellaneous (Vte Chemical Prophylaxis Screen/ Admission) 1 ea MC PRN PRN PRN Reason: PROTOCOL Stop: 07/14/17 09:25 Morphine Sulfate (Morphine) 2 mg IVP Q3H PRN PRN Reason: PAIN Stop: 07/13/17 19:46 Last Admin: 05/14/17 21:16 Dose: 2 mg Mupirocin (Bactroban Oint) 1 appl TP BID YESSICA Stop: 07/14/17 16:59 Last Admin: 05/15/17 16:24 Dose: 1 appl Pantoprazole Sodium (Protonix) 40 mg GT DAILY YESSICA Stop: 07/14/17 08:59 Last Admin: 05/15/17 08:36 Dose: 40 mg Rifaximin (Xifaxan) 550 mg GT BID YESSICA Stop: 07/14/17 08:59 Last Admin: 05/15/17 16:23 Dose: 550 mg Kidney function improved with a BUN 47 and creatinine of 2.6 Sodium improved to 137 White count stable at 11, on Zosyn Chest x-ray improved pulm edema/chf, and elevated BNP of 739, will discontinue IV fluids and continue feedings Reviewed his meds Follow-up electrolytes start Maintenance Lasix w/ albumin infusion to improve intravascular volume currently on PPN @ 40 ml /hr prognosis poor Hgb/Hct down to 7.8/23.3 schedule for HD in am since still has chf on cxr & elevated BNP Lab - Result Diagrams 05/19/17 04:50 05/19/17 04:50 addendum: Poor response to diuretics, w/ worsening CHF, BNP level developed resp failure, required intubation worsening cardio-renal syndrome discussed w/ grandson Pedro, about poor prognosis but still want to proceed w/ dialysis Nutritional Asmnt/Malnutr-PDOC - Dietary Evaluation Malnutrition Findings (Please click <Entered> for more info): Nutritional Asmnt/Malnutrition Start: 05/15/17 13: 56 Text: Status: Complete Freq: Document 05/15/17 13:56 GSUN (Rec: 05/15/17 14:18 GSUN [id number]) Nutritional Asmnt/Malnutrition Patient General Information Nutritional Screening High Risk Screening Diagnosis PNA, NICK, icnreasing renal failure, CVA, CHF, DM Pertinent Medical Hx/Surgical Hx CVA, dementia, afib, CAD, HTN, dyslipidemia, epilepsy, GERD, aspiration PNA, DM, CKD, dehydration, C. diff, anemia D Subjective Information 86 year old male from SNF. Pt greeted RD. Pt is overall thin , moderate to severe wasting to chest, clavicles, extremities. Observed Glytrol running at 60ml/hr x20hrs during visit. Unable to obtain CBW due to bedscale not calibrated. Discussed with YVETTE Farooq regarding tube feeding recommendations. Current Diet Order/ Nutrition Support Glytrol at 60ml/hr x 20hrs, providing 1200kcal 54g protein Pertinent Medications Lipitor, Novolog, Levemir, Cephulac, Morphine, Protonix, Nacl 0.9% Pertinent Labs 05/13: potassium 5.3H, BUN 80H, creatinine 2.4H, glucose 103 05/15: potassium WNL, BUN 70H, creatinine 2.4H, glucose 239H, A1c 6.1H, phosphorus 5.4H Nutritional Hx/Data Height 1.68 m Height (Calculated Centimeters) 167.6 Current Weight (lbs) 65.771 kg Weight (Calculated Kilograms) 65.8 Weight (Calculated Grams) 13999.9 [place] Body Weight 142 Weight Status Approriate GI Symptoms Difficult in: Swallowing Cultural/Ethnic/Synagogue Belief [facility]: Glucerna 1.2 at 85ml/hr x 20hrs, providing 2040kcal, promote weight gain. Skin Integrity/Comment: Gee 12. Skin intact. Estimated Nutritional Goals Calories/Kcals/Kg CBW 145lb/65.9kg Kcals Calculated 1976-2307kcal (30-35kcal/kg) Protein Calculated 46-92g (0.7-1.4g/kg, renal vs moderate to severe wasting) Fluid: ml Per MD (renal) Nutritional Problem 2. 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 Problem Problem Inadequate intake from enteral nutrition infusion related to Etiology estimated nutritional needs aeb Signs/Symptoms: providing to meet 61% lower end kcal needs Intervention/Recommendation Comments 1. Recommend Novasource Renal at 50ml/hr x 20hrs, providing 2000kcal and 91g protein. Current order Glytrol at 60ml/ hr x 20hrs is only providing 1200kcal, pt recieves 2040kcal at [facility]. Expected Outcomes/Goals Expected Outcomes/Goals 1. Pt to meet at least 100% of estimated nutritional needs on tube feeding with tolerance .
[2017-05-23] MEDS ORDERED: Potassium Phosphate 15 MMOLE in Sodium Chloride 0.9% 250 ML IV ONE (14:30)
[2017-05-23] MEDS: TPN 10%-70% CUSTOM IV SCH (15:05)
--- NOTE | 2017-05-23 15:07 | General Progress Note ---
Subjective - Review of Systems Events since last encounter: patient on vent no distress Subjective: pt is sleeping pt is in no acute distress Objective - Results Result Diagrams: 05/23/17 04:48 05/23/17 04:48 Recent Labs: Laboratory Last Values WBC 11.0 Th/cmm (4.8-10.8) H 05/23/17 04:48 RBC 2.76 Mil/cmm (3.80-5.80) L 05/23/17 04:48 Hgb 7.8 gm/dL (12.6-17.4) L* 05/23/17 04:48 Hct 23.3 % (39.0-49.0) L* 05/23/17 04:48 MCV 84.3 fl (80-99) 05/23/17 04:48 MCH 28.1 pg (27.0-31.0) 05/23/17 04:48 MCHC Differential 33.4 pg (28.0-36.0) 05/23/17 04:48 RDW 15.3 % (11.5-20.0) 05/23/17 04:48 Plt Count 155 Th/cmm (150-400) 05/23/17 04:48 MPV 8.7 fl 05/23/17 04:48 Neutrophils % 75.7 % (40.0-80.0) 05/18/17 07:33 Band Neutrophils % 10 % (0-10) 05/23/17 04:48 Lymphocytes % 13.2 % (20.0-50.0) L 05/18/17 07:33 Monocytes % 8.3 % (2.0-10.0) 05/18/17 07:33 Eosinophils % 2.0 % (0.0-5.0) 05/18/17 07:33 Basophils % 0.8 % (0.0-2.0) 05/18/17 07:33 Neutrophils (Manual) 75 % (40-80) 05/23/17 04:48 Lymphocytes 7 % (20-50) L 05/23/17 04:48 Monocytes 8 % (2-10) 05/23/17 04:48 Eosinophils 1 % (0-5) 05/20/17 04:50 Metamyelocytes 1 % (0-0) H 05/22/17 04:44 Toxic Granulation 1+ 05/23/17 04:48 Platelet Estimate ADEQUATE (NORMAL) 05/23/17 04:48 Platelet Morphology NORMAL (NORMAL) 05/22/17 04:44 Anisocytosis 1+ 05/22/17 04:44 RBC Morph Micro Appear ABNORMAL (NORMAL) 05/22/17 04:44 Eos Smear Source URINE 05/14/17 18:00 Eos Smear Total Cells FEW EOSINOPHILS SEEN (NONE SEEN) 05/14/17 18:00 PT 11.9 SECONDS (9.5-11.5) H 05/13/17 17:42 INR 1.13 (0.5-1.4) 05/13/17 17:42 PTT (Actin FS) 30.5 SECONDS (26.0-38.0) 05/15/17 12:30 Specimen Source Arterial 05/23/17 09:08 Sample Site Right Radial 05/23/17 09:08 pH 7.48 (7.35-7.45) H 05/23/17 09:08 pCO2 32.0 mmHg (35.0-45.0) L 05/23/17 09:08 pO2 80.0 mmHg (80.0-100.0) 05/23/17 09:08 HCO3 25.6 mEq/L (20.0-26.0) 05/23/17 09:08 Base Excess 0.9 mEq/L (-3.0-3.0) 05/23/17 09:08 O2 Saturation 97.0 % (92.0-100.0) 05/23/17 09:08 Feliciano Test YES 05/23/17 09:08 Vent Rate 24 05/23/17 09:08 Inspired O2 40 05/23/17 09:08 Tidal Volume 500 05/23/17 09:08 PEEP NA 05/23/17 09:08 Pressure (ins/psv/peep) NA 05/23/17 09:08 Critical Value E.MCNEAL 05/23/17 09:08 Sodium 137 mEq/L (136-145) 05/23/17 04:48 Potassium 3.4 mEq/L (3.5-5.1) L 05/23/17 04:48 Chloride 105 mEq/L (98-107) 05/23/17 04:48 Carbon Dioxide 23.2 mEq/L (21.0-31.0) 05/23/17 04:48 Anion Gap 12.2 (7.0-16.0) 05/23/17 04:48 BUN 47 mg/dL (7-25) H 05/23/17 04:48 Creatinine 2.6 mg/dL (0.7-1.3) H 05/23/17 04:48 Est GFR ( Amer) TNP 05/23/17 04:48 Est GFR (Non-Af Amer) TNP 05/23/17 04:48 BUN/Creatinine Ratio 18.1 05/23/17 04:48 Glucose 90 mg/dL (70-105) 05/23/17 04:48 POC Glucose 171 MG/DL (70 - 105) H 05/23/17 12:53 Hemoglobin A1c % 6.1 % (4.0-6.0) H 05/15/17 06:30 Plasma/Ser Osmolality 301 mOsmol/kg (280-301) 05/14/17 18:20 Whole Bld Lactic Acid 1.58 mmol/L (0.60-1.99) 05/13/17 17:42 Uric Acid 7.7 mg/dL (4.4-7.6) H 05/15/17 06:30 Calcium 8.9 mg/dL (8.6-10.3) 05/23/17 04:48 Phosphorus 2.0 mg/dL (2.5-5.0) L 05/23/17 04:44 Magnesium 1.8 mg/dL (1.9-2.7) L 05/23/17 04:44 Total Bilirubin 0.5 mg/dL (0.3-1.0) 05/23/17 04:48 Direct Bilirubin 0.09 mg/dL (0.0-0.2) 05/19/17 04:50 AST 21 U/L (13-39) 05/23/17 04:48 ALT 5 U/L (7-52) L 05/23/17 04:48 Alkaline Phosphatase 72 U/L (34-104) 05/23/17 04:48 Ammonia 65 umol/L (16-53) H 05/19/17 04:50 Creatine Kinase 35 U/L (30-223) 05/16/17 23:06 Troponin I 0.02 ng/mL (0.01-0.05) 05/16/17 23:06 B-Natriuretic Peptide 739.0 pg/mL (5.0-100.0) H 05/23/17 04:48 Total Protein 6.1 gm/dL (6.0-8.3) 05/23/17 04:48 Albumin 3.3 gm/dL (4.2-5.5) L 05/23/17 04:48 Globulin 2.8 gm/dL 05/23/17 04:48 Albumin/Globulin Ratio 1.2 (1.0-1.8) 05/23/17 04:48 Prealbumin 14 mg/dL (9-32) 05/18/17 07:33 TSH 2.74 uIU/ml (0.34-5.60) 05/15/17 06:30 Urine Source CATH 05/13/17 19:50 Urine Color YELLOW 05/13/17 19:50 Urine Clarity CLOUDY (CLEAR) 05/13/17 19:50 Urine pH 6.0 05/13/17 19:50 Ur Specific [place] 1.015 (1.005-1.030) 05/13/17 19:50 Urine Protein 100 mg/dL (NEGATIVE) H 05/13/17 19:50 Urine Glucose (UA) NEGATIVE mg/dL (NEGATIVE) 05/13/17 19:50 Urine Ketones NEGATIVE mg/dL (NEGATIVE) 05/13/17 19:50 Urine Blood LARGE (NEGATIVE) H 05/13/17 19:50 Urine Nitrate NEGATIVE (NEGATIVE) 05/13/17 19:50 Urine Bilirubin NEGATIVE (NEGATIVE) 05/13/17 19:50 Urine Urobilinogen 0.2 E.U./dL (0.2 - 1.0) 05/13/17 19:50 Ur Leukocyte Esterase LARGE (NEGATIVE) H 05/13/17 19:50 Urine RBC 50-100 /hpf (0-5) H 05/13/17 19:50 Urine WBC >100 /hpf (0-5) H 05/13/17 19:50 Ur Epithelial Cells NONE SEEN /lpf (FEW) 05/13/17 19:50 Urine Bacteria NONE SEEN /hpf (NONE SEEN) 05/13/17 19:50 Ur Random Sodium 30 mmol/L 05/14/17 18:00 Urine Creatinine 36.4 mg/dl (Not Estab.) 05/14/17 18:00 Urine Microalbumin 363.5 ug/mL (Not Estab.) 05/14/17 18:00 Microalb/Creat Ratio 998.6 mg/g creat (0.0-30.0) H 05/14/17 18:00 Random Vancomycin 19.1 ug/mL (5.0-40.0) 05/19/17 04:50 Hepatitis A IgM Ab Negative (Negative) 05/21/17 04:46 Hep Bs Antigen Negative (Negative) 05/21/17 04:46 Hep B Core IgM Ab Negative (Negative) 05/21/17 04:46 Hepatitis C Antibody 0.1 s/co ratio (0.0-0.9) 05/21/17 04:46 Blood Type B POSITIVE 05/21/17 10:19 Antibody Screen NEGATIVE 05/21/17 10:19 Crossmatch See Detail 05/21/17 10:19 - Physical Exam Vitals and I&O: Vital Signs Temp 98.8 F 05/23/17 12:00 Pulse 118 05/23/17 14:37 Resp 24 05/23/17 13:00 BP 142/79 05/23/17 13:07 Pulse Ox 98 05/23/17 14:37 Intake & Output 05/22/17 05/23/17 05/23/17 18:59 06:59 18:59 Intake Total 100 710 100 Output Total 2050 10 Balance -1950 700 100 Weight (lbs) 62.596 kg 62.596 kg Intake: Intake, IV Amount 150 100 Fluconazole 100mg/50mL 50 100 mg In 50 ml @ 50 mls/ hr IV Q24HR [facility] Rx#: [id number] Tigecycline 50 mg In 100 100 Sodium Chloride 0.9% 100 ml @ 100 mls/hr IV Q12H [facility] Rx#:[id number] TPN/PPN 480 Albumin 100 Other 80 Output: Urine 50 10 Hemodialysis 2000 Other: Stool Characteristics Soft Soft Active Medications: Current Medications Acetaminophen (Tylenol) 650 mg PO Q4HR PRN PRN Reason: Pain Or Fever above 101 Stop: 07/14/17 15:15 Last Admin: 05/17/17 11:11 Dose: 650 mg Albuterol/Ipratropium (Duoneb Neb) 3 ml HHN Q4HRT [facility] Stop: 07/19/17 14:59 Last Admin: 05/23/17 12:46 Dose: 3 ml Atorvastatin Calcium (Lipitor) 10 mg GT HS YESSICA PRN Reason: Protocol Stop: 07/14/17 20:59 Last Admin: 05/22/17 21:06 Dose: 10 mg Budesonide (Pulmicort) 1 mg HHN BIDRT YESSICA Stop: 07/19/17 18:59 Last Admin: 05/23/17 08:05 Dose: 1 mg Carbidopa/Levodopa (Sinemet 25mg-100 Mg) 1 tab PO TID YESSICA Stop: 07/14/17 08:59 Last Admin: 05/23/17 13:08 Dose: 1 tab Dextrose (D50w) 50 ml IVP PRN PRN; Protocol PRN Reason: HYPOGLYCEMIA Stop: 07/20/17 00:54 Last Admin: 05/22/17 23:34 Dose: 50 ml Diltiazem HCl (Cardizem) 60 mg PO Q8HR YESSICA Stop: 07/22/17 20:59 Furosemide (Lasix) 40 mg IVP DAILY YESSICA Stop: 07/18/17 08:59 Last Admin: 05/23/17 08:59 Dose: 40 mg Norepinephrine Bitartrate 8 mg (/ Dextrose) 258 mls @ 0 mls/hr IV TITR PRN; Protocol; Titrate PRN Reason: BP MAINTENANCE (PER PROTOCOL) Stop: 07/19/17 12:29 Last Admin: 05/21/17 01:06 Dose: 10 mcg/min, 19.35 mls/hr Phenylephrine HCl 10 mg/ (Sodium Chloride) 250 mls @ 0 mls/hr IV TITR YESSICA; Per Protocol PRN Reason: Protocol Stop: 07/19/17 12:59 Tigecycline 50 mg/ Sodium (Chloride) 100 mls @ 100 mls/hr IV Q12H YESSICA Stop: 07/21/17 18:59 Last Infusion: 05/23/17 07:30 Dose: Infused Fluconazole (Diflucan) 100 mg in 50 mls @ 50 mls/hr IV Q24HR YESSICA Stop: 07/21/17 04:59 Last Infusion: 05/23/17 05:35 Dose: Infused Amino Acids/Electrolytes (Procalamine) 1,000 mls @ 40 mls/hr IV .Q24H YESSICA Stop: 05/23/17 16:00 Last Admin: 05/22/17 16:27 Dose: 40 mls/hr Diltiazem HCl 125 mg/ Dextrose 125 mls @ 10 mls/hr IV TITR YESSICA; 10 MG/HR PRN Reason: Protocol Stop: 07/22/17 10:03 Potassium Phosphate 15 mmole/ (Sodium Chloride) 255 mls @ 63.75 mls/hr IV ONCE ONE Stop: 05/23/17 18:29 Last Admin: 05/23/17 15:05 Dose: 63.75 mls/hr Multivitamins/Minerals 5 ml/Dextrose/ Amino Acids/Electrolytes/ Sterile Water 1 ,819 mls @ 40 mls/hr IV .Q24H YESSICA Stop: 07/22/17 15:59 Last Admin: 05/23/17 15:05 Dose: 40 mls/hr Insulin Aspart (Novolog Insulin Sliding Scale) 0 units SUBQ Q6HR YESSICA PRN Reason: Protocol Stop: 07/14/17 00:00 Last Admin: 05/23/17 13:01 Dose: Not Given Insulin Detemir (Levemir Insulin) 10 units SUBQ DAILY YESSICA PRN Reason: Protocol Stop: 07/23/17 08:59 Ipratropium [place] (Atrovent Neb 0.5mg/2.5ml) 0.5 mg HHN Q4HRT [facility] Stop: 07/17/17 14:59 Last Admin: 05/20/17 04:46 Dose: 0.5 mg Isosorbide Dinitrate (Isordil) 10 mg GT TID [facility] Stop: 07/14/17 08:59 Last Admin: 05/23/17 13:07 Dose: 10 mg Lactobacillus Rhamnosus (Culturelle) 1 each PO DAILY [facility] Stop: 07/17/17 08:59 Last Admin: 05/23/17 08:59 Dose: 1 each Lactulose (Cephulac) 20 gm PO TID [facility] Stop: 07/14/17 08:59 Last Admin: 05/23/17 13:08 Dose: Not Given Levetiracetam (Keppra) 250 mg NG BID [facility] Stop: 07/14/17 08:59 Last Admin: 05/23/17 09:03 Dose: 250 mg Lorazepam (Ativan) 1 mg IVP Q4H PRN; Protocol PRN Reason: Agitation Stop: 07/19/17 09:02 Last Admin: 05/23/17 01:33 Dose: 1 mg Metoclopramide HCl (Reglan) 5 mg IVP TID [facility] Stop: 07/20/17 20:59 Last Admin: 05/23/17 13:09 Dose: Not Given Metoprolol Tartrate (Lopressor) 50 mg GT Q8H YESSICA Stop: 07/18/17 08:59 Last Admin: 05/23/17 11:36 Dose: Not Given Miscellaneous (Vte Chemical Prophylaxis Screen/ Admission) 1 ea [facility] PRN PRN PRN Reason: PROTOCOL Stop: 07/14/17 09:25 Miscellaneous (Clinical Monitoring) 1 ea [facility] DAILY PRN PRN Reason: RENAL Stop: 07/15/17 12:32 Miscellaneous (Probiotic Screen) 1 ea [facility] PRN PRN PRN Reason: PROTOCOL Stop: 07/16/17 09:33 Miscellaneous (Ppn Per Pharmacy) 1 ea [facility] PRN PRN PRN Reason: PROTOCOL Stop: 07/21/17 10:23 Mupirocin (Bactroban Oint) 1 appl TP BID [facility] Stop: 07/14/17 16:59 Last Admin: 05/23/17 09:06 Dose: 1 appl Pantoprazole Sodium (Protonix) 40 mg GT DAILY YESSICA Stop: 07/14/17 08:59 Last Admin: 05/23/17 08:59 Dose: 40 mg General: Alert, No acute distress, Moderate distress, Other (Altered) HEENT: Atraumatic, Mucous membr. moist/pink Neck: Supple, +2 carotid pulse wo bruit Cardiovascular: Regular rate, Normal S1, Normal S2, Other (afib on the monitor) Lungs: Clear to auscultation (rales bilaterally), Other (bilateral rales better) Abdomen: Bowel sounds, Soft, no Distended Extremities: no Edema Neurological: Sensation intact Skin: no Rash Psych/Mental Status: Mood NL - Procedures Procedures: Procedures Procedure Code Date INSERT EMERGENCY AIRWAY 79572 05/13/17 INSERT TUNNELED CV CATH [id number] 05/13/17 INSERTION OF ENDOTRACHEAL AIRWAY INTO TRACHEA, VIA OPENING [id number] 05/13/17 INSERTION OF INFUSION DEV INTO R FEMOR VEIN, PERC APPROACH [id number] 05/13/17 RESPIRATORY VENTILATION, LESS THAN 24 CONSECUTIVE HOURS [id number] 05/13/17 VENT MGMT INPAT IN DAY 33756 05/13/17 Assessment/Plan - Problem List Patient Problems: All Active Problems COUGH AND CONGESTION (Acute) - Assessment Assessment: Current Active Problems Problem Status Onset COUGH AND CONGESTION Acute sob pnumonia r/o sepsis incresing renal failure h/o cva h/o atrail fib dm nick h/o c diff uti anemia - Plan Plan: iv fluids renal consult id consult Nutritional Asmnt/Malnutr-PDOC - Dietary Evaluation Malnutrition Findings (Please click <Entered> for more info): Nutritional Asmnt/Malnutrition Start: 05/15/17 13: 56 Text: Status: Complete Freq: Document 05/15/17 13:56 GSUN (Rec: 05/15/17 14:18 GSUN [id number]) Nutritional Asmnt/Malnutrition Patient General Information Nutritional Screening High Risk Screening Diagnosis PNA, NICK, icnreasing renal failure, CVA, CHF, DM Pertinent Medical Hx/Surgical Hx CVA, dementia, afib, CAD, HTN, dyslipidemia, epilepsy, GERD, aspiration PNA, DM, CKD, dehydration, C. diff, anemia D Subjective Information 86 year old male from SNF. Pt greeted RD. Pt is overall thin , moderate to severe wasting to chest, clavicles, extremities. Observed Glytrol running at 60ml/hr x20hrs during visit. Unable to obtain CBW due to bedscale not calibrated. Discussed with YVETTE Farooq regarding tube feeding recommendations. Current Diet Order/ Nutrition Support Glytrol at 60ml/hr x 20hrs, providing 1200kcal 54g protein Pertinent Medications Lipitor, Novolog, Levemir, Cephulac, Morphine, Protonix, Nacl 0.9% Pertinent Labs 05/13: potassium 5.3H, BUN 80H, creatinine 2.4H, glucose 103 05/15: potassium WNL, BUN 70H, creatinine 2.4H, glucose 239H, A1c 6.1H, phosphorus 5.4H Nutritional Hx/Data Height 1.68 m Height (Calculated Centimeters) 167.6 Current Weight (lbs) 65.771 kg Weight (Calculated Kilograms) 65.8 Weight (Calculated Grams) 71146.9 [place] Body Weight 142 Weight Status Approriate GI Symptoms Difficult in: Swallowing Cultural/Ethnic/[employer] Belief [facility]: Glucerna 1.2 at 85ml/hr x 20hrs, providing 2040kcal, promote weight gain. Skin Integrity/Comment: Gee 12. Skin intact. Estimated Nutritional Goals Calories/Kcals/Kg CBW 145lb/65.9kg Kcals Calculated 1976-7kcal (30-35kcal/kg) Protein Calculated 46-92g (0.7-1.4g/kg, renal vs moderate to severe wasting) Fluid: ml Per MD (renal) Nutritional Problem 2. Problem Problem Impaired nutrient utilization related to Etiology NICK, hx CKD aeb Signs/Symptoms: "increasing renal failure," potaasum 5.3H on adm, BUN 70H, exterminator 2.4H, phosphorus 5.4H 1. Problem Problem Inadequate intake from enteral nutrition infusion related to Etiology estimated nutritional needs aeb Signs/Symptoms: providing to meet 61% lower end kcal needs Intervention/Recommendation Comments 1. Recommend Novasource Renal at 50ml/hr x 20hrs, providing 2000kcal and 91g protein. Current order Glytrol at 60ml/ hr x 20hrs is only providing 1200kcal, pt recieves 2040kcal at [facility]. Expected Outcomes/Goals Expected Outcomes/Goals 1. Pt to meet at least 100% of estimated nutritional needs on tube feeding with tolerance .
[2017-05-23] MEDS ORDERED: Diltiazem 5 mg/mL 5mL Vial IVP PRN (17:10)
[2017-05-23] MEDS: Amino Acids 3% / Electrolytes 1,000 ML IV SCH (17:40)
[2017-05-23] MEDS: Ipratropium Neb 0.5 mg/2.5 mL UD HHN SCH ×2 (20:09→22:43)
--- NOTE | 2017-05-23 20:32 | Progress Notes ---
DATE: 05/23/2017 PROBLEM LIST: 1. Acute cardiopulmonary arrest. 2. Congestive heart failure. 3. Alzheimer's. 4. Hypotension, improving. SYMPTOMS: No respiratory distress, is off the according to nursing staff. PHYSICAL EXAMINATION: VITAL SIGNS: Respiration is 24, heart rate is 80s, blood pressure 128/65, saturation 100% on 40% of oxygen on AC backup of 24. NECK: Veins not visualized. CHEST: Shows occasional rhonchi with diminished air entry. HEART: Regular. ABDOMEN: Soft, nontender. Slightly distended. EXTREMITIES: Shows some edematous changes. LABORATORY DATA: The patient's white count is 11,000, hemoglobin . JOB# [id number]
[2017-05-23] MEDS: Atorvastatin Calcium 10 MG TAB GT SCH (20:49)
[2017-05-23] MEDS ORDERED: Diltiazem 30 mg Tab PO SCH (21:00)
--- NOTE | 2017-05-23 21:38 | General Progress Note ---
Subjective - Review of Systems Service Date: 05/23/17 Subjective: Patient seen and examined sleeping on vent nurse reported that patient had loose stool this am patient's lactulose was dc'd no vomiting on PPN Also reported patient to have low blood sugar afebrile Objective - Results Result Diagrams: 05/23/17 04:48 05/23/17 04:48 Recent Labs: Laboratory Last Values WBC 11.0 Th/cmm (4.8-10.8) H 05/23/17 04:48 RBC 2.76 Mil/cmm (3.80-5.80) L 05/23/17 04:48 Hgb 7.8 gm/dL (12.6-17.4) L* 05/23/17 04:48 Hct 23.3 % (39.0-49.0) L* 05/23/17 04:48 MCV 84.3 fl (80-99) 05/23/17 04:48 MCH 28.1 pg (27.0-31.0) 05/23/17 04:48 MCHC Differential 33.4 pg (28.0-36.0) 05/23/17 04:48 RDW 15.3 % (11.5-20.0) 05/23/17 04:48 Plt Count 155 Th/cmm (150-400) 05/23/17 04:48 MPV 8.7 fl 05/23/17 04:48 Neutrophils % 75.7 % (40.0-80.0) 05/18/17 07:33 Band Neutrophils % 10 % (0-10) 05/23/17 04:48 Lymphocytes % 13.2 % (20.0-50.0) L 05/18/17 07:33 Monocytes % 8.3 % (2.0-10.0) 05/18/17 07:33 Eosinophils % 2.0 % (0.0-5.0) 05/18/17 07:33 Basophils % 0.8 % (0.0-2.0) 05/18/17 07:33 Neutrophils (Manual) 75 % (40-80) 05/23/17 04:48 Lymphocytes 7 % (20-50) L 05/23/17 04:48 Monocytes 8 % (2-10) 05/23/17 04:48 Eosinophils 1 % (0-5) 05/20/17 04:50 Metamyelocytes 1 % (0-0) H 05/22/17 04:44 Toxic Granulation 1+ 05/23/17 04:48 Platelet Estimate ADEQUATE (NORMAL) 05/23/17 04:48 Platelet Morphology NORMAL (NORMAL) 05/22/17 04:44 Anisocytosis 1+ 05/22/17 04:44 RBC Morph Micro Appear ABNORMAL (NORMAL) 05/22/17 04:44 Eos Smear Source URINE 05/14/17 18:00 Eos Smear Total Cells FEW EOSINOPHILS SEEN (NONE SEEN) 05/14/17 18:00 PT 11.9 SECONDS (9.5-11.5) H 05/13/17 17:42 INR 1.13 (0.5-1.4) 05/13/17 17:42 PTT (Actin FS) 30.5 SECONDS (26.0-38.0) 05/15/17 12:30 Specimen Source Arterial 05/23/17 09:08 Sample Site Right Radial 05/23/17 09:08 pH 7.48 (7.35-7.45) H 05/23/17 09:08 pCO2 32.0 mmHg (35.0-45.0) L 05/23/17 09:08 pO2 80.0 mmHg (80.0-100.0) 05/23/17 09:08 HCO3 25.6 mEq/L (20.0-26.0) 05/23/17 09:08 Base Excess 0.9 mEq/L (-3.0-3.0) 05/23/17 09:08 O2 Saturation 97.0 % (92.0-100.0) 05/23/17 09:08 Feliciano Test YES 05/23/17 09:08 Vent Rate 24 05/23/17 09:08 Inspired O2 40 05/23/17 09:08 Tidal Volume 500 05/23/17 09:08 PEEP NA 05/23/17 09:08 Pressure (ins/psv/peep) NA 05/23/17 09:08 Critical Value E.MCNEAL 05/23/17 09:08 Sodium 137 mEq/L (136-145) 05/23/17 04:48 Potassium 3.4 mEq/L (3.5-5.1) L 05/23/17 04:48 Chloride 105 mEq/L (98-107) 05/23/17 04:48 Carbon Dioxide 23.2 mEq/L (21.0-31.0) 05/23/17 04:48 Anion Gap 12.2 (7.0-16.0) 05/23/17 04:48 BUN 47 mg/dL (7-25) H 05/23/17 04:48 Creatinine 2.6 mg/dL (0.7-1.3) H 05/23/17 04:48 Est GFR ( Amer) TNP 05/23/17 04:48 Est GFR (Non-Af Amer) TNP 05/23/17 04:48 BUN/Creatinine Ratio 18.1 05/23/17 04:48 Glucose 90 mg/dL (70-105) 05/23/17 04:48 POC Glucose 243 MG/DL (70 - 105) H 05/23/17 18:12 Hemoglobin A1c % 6.1 % (4.0-6.0) H 05/15/17 06:30 Plasma/Ser Osmolality 301 mOsmol/kg (280-301) 05/14/17 18:20 Whole Bld Lactic Acid 1.58 mmol/L (0.60-1.99) 05/13/17 17:42 Uric Acid 7.7 mg/dL (4.4-7.6) H 05/15/17 06:30 Calcium 8.9 mg/dL (8.6-10.3) 05/23/17 04:48 Phosphorus 2.0 mg/dL (2.5-5.0) L 05/23/17 04:44 Magnesium 1.8 mg/dL (1.9-2.7) L 05/23/17 04:44 Total Bilirubin 0.5 mg/dL (0.3-1.0) 05/23/17 04:48 Direct Bilirubin 0.09 mg/dL (0.0-0.2) 05/19/17 04:50 AST 21 U/L (13-39) 05/23/17 04:48 ALT 5 U/L (7-52) L 05/23/17 04:48 Alkaline Phosphatase 72 U/L (34-104) 05/23/17 04:48 Ammonia 65 umol/L (16-53) H 05/19/17 04:50 Creatine Kinase 35 U/L (30-223) 05/16/17 23:06 Troponin I 0.02 ng/mL (0.01-0.05) 05/16/17 23:06 B-Natriuretic Peptide 739.0 pg/mL (5.0-100.0) H 05/23/17 04:48 Total Protein 6.1 gm/dL (6.0-8.3) 05/23/17 04:48 Albumin 3.3 gm/dL (4.2-5.5) L 05/23/17 04:48 Globulin 2.8 gm/dL 05/23/17 04:48 Albumin/Globulin Ratio 1.2 (1.0-1.8) 05/23/17 04:48 Prealbumin 14 mg/dL (9-32) 05/18/17 07:33 TSH 2.74 uIU/ml (0.34-5.60) 05/15/17 06:30 Urine Source CATH 05/13/17 19:50 Urine Color YELLOW 05/13/17 19:50 Urine Clarity CLOUDY (CLEAR) 05/13/17 19:50 Urine pH 6.0 05/13/17 19:50 Ur Specific [place] 1.015 (1.005-1.030) 05/13/17 19:50 Urine Protein 100 mg/dL (NEGATIVE) H 05/13/17 19:50 Urine Glucose (UA) NEGATIVE mg/dL (NEGATIVE) 05/13/17 19:50 Urine Ketones NEGATIVE mg/dL (NEGATIVE) 05/13/17 19:50 Urine Blood LARGE (NEGATIVE) H 05/13/17 19:50 Urine Nitrate NEGATIVE (NEGATIVE) 05/13/17 19:50 Urine Bilirubin NEGATIVE (NEGATIVE) 05/13/17 19:50 Urine Urobilinogen 0.2 E.U./dL (0.2 - 1.0) 05/13/17 19:50 Ur Leukocyte Esterase LARGE (NEGATIVE) H 05/13/17 19:50 Urine RBC 50-100 /hpf (0-5) H 05/13/17 19:50 Urine WBC >100 /hpf (0-5) H 05/13/17 19:50 Ur Epithelial Cells NONE SEEN /lpf (FEW) 05/13/17 19:50 Urine Bacteria NONE SEEN /hpf (NONE SEEN) 05/13/17 19:50 Ur Random Sodium 30 mmol/L 05/14/17 18:00 Urine Creatinine 36.4 mg/dl (Not Estab.) 05/14/17 18:00 Urine Microalbumin 363.5 ug/mL (Not Estab.) 05/14/17 18:00 Microalb/Creat Ratio 998.6 mg/g creat (0.0-30.0) H 05/14/17 18:00 Random Vancomycin 19.1 ug/mL (5.0-40.0) 05/19/17 04:50 Hepatitis A IgM Ab Negative (Negative) 05/21/17 04:46 Hep Bs Antigen Negative (Negative) 05/21/17 04:46 Hep B Core IgM Ab Negative (Negative) 05/21/17 04:46 Hepatitis C Antibody 0.1 s/co ratio (0.0-0.9) 05/21/17 04:46 Blood Type B POSITIVE 05/21/17 10:19 Antibody Screen NEGATIVE 05/21/17 10:19 Crossmatch See Detail 05/21/17 10:19 - Physical Exam Vitals and I&O: Vital Signs Temp 98.2 F 05/23/17 20:00 Pulse 95 05/23/17 21:05 Resp 23 05/23/17 21:00 BP 166/96 05/23/17 21:00 Pulse Ox 99 05/23/17 21:05 Intake & Output 05/23/17 05/23/17 05/24/17 06:59 18:59 06:59 Intake Total 710 580 Output Total 10 50 Balance 700 530 Weight (lbs) 62.596 kg 62.596 kg Intake: Intake, IV Amount 150 100 Fluconazole 100mg/50mL 50 100 mg In 50 ml @ 50 mls/ hr IV Q24HR YESSICA Rx#: [id number] Tigecycline 50 mg In 100 100 Sodium Chloride 0.9% 100 ml @ 100 mls/hr IV Q12H YESSICA Rx#:[id number] TPN/PPN 480 480 Other 80 Output: Urine 10 50 Other: # Bowel Movements 1 Stool Characteristics Soft Soft Liquid Brown Active Medications: Current Medications Acetaminophen (Tylenol) 650 mg PO Q4HR PRN PRN Reason: Pain Or Fever above 101 Stop: 07/14/17 15:15 Last Admin: 05/23/17 15:07 Dose: 650 mg Albuterol/Ipratropium (Duoneb Neb) 3 ml HHN Q4HRT YESSICA Stop: 07/19/17 14:59 Last Admin: 05/23/17 20:09 Dose: 3 ml Atorvastatin Calcium (Lipitor) 10 mg GT HS YESSICA PRN Reason: Protocol Stop: 07/14/17 20:59 Last Admin: 05/23/17 20:49 Dose: 10 mg Budesonide (Pulmicort) 1 mg HHN BIDRT YESSICA Stop: 07/19/17 18:59 Last Admin: 05/23/17 20:09 Dose: 1 mg Carbidopa/Levodopa (Sinemet 25mg-100 Mg) 1 tab PO TID YESSICA Stop: 07/14/17 08:59 Last Admin: 05/23/17 20:49 Dose: 1 tab Dextrose (D50w) 50 ml IVP PRN PRN; Protocol PRN Reason: HYPOGLYCEMIA Stop: 07/20/17 00:54 Last Admin: 05/22/17 23:34 Dose: 50 ml Diltiazem HCl (Cardizem) 10 mg IVP Q6HR PRN PRN Reason: HR >130 Stop: 07/22/17 17:09 Furosemide (Lasix) 40 mg IVP DAILY YESSICA Stop: 07/18/17 08:59 Last Admin: 05/23/17 08:59 Dose: 40 mg Heparin Sodium (Porcine) (Heparin) 5,000 units SUBQ Q8HR YESSICA Stop: 07/22/17 20:59 Last Admin: 05/23/17 20:50 Dose: 5,000 units Norepinephrine Bitartrate 8 mg (/ Dextrose) 258 mls @ 0 mls/hr IV TITR PRN; Protocol; Titrate PRN Reason: BP MAINTENANCE (PER PROTOCOL) Stop: 07/19/17 12:29 Last Admin: 05/21/17 01:06 Dose: 10 mcg/min, 19.35 mls/hr Phenylephrine HCl 10 mg/ (Sodium Chloride) 250 mls @ 0 mls/hr IV TITR YESSICA; Per Protocol PRN Reason: Protocol Stop: 07/19/17 12:59 Tigecycline 50 mg/ Sodium (Chloride) 100 mls @ 100 mls/hr IV Q12H YESSICA Stop: 07/21/17 18:59 Last Admin: 05/23/17 19:45 Dose: 100 mls/hr Fluconazole (Diflucan) 100 mg in 50 mls @ 50 mls/hr IV Q24HR YESSICA Stop: 07/21/17 04:59 Last Infusion: 05/23/17 05:35 Dose: Infused Multivitamins/Minerals 5 ml/Dextrose/ Amino Acids/Electrolytes/ Sterile Water 1 ,819 mls @ 40 mls/hr IV .Q24H YESSICA Stop: 07/22/17 15:59 Last Admin: 05/23/17 15:05 Dose: 40 mls/hr Insulin Aspart (Novolog Insulin Sliding Scale) 0 units SUBQ Q6HR YESSICA PRN Reason: Protocol Stop: 07/14/17 00:00 Last Admin: 05/23/17 18:16 Dose: 2 units Ipratropium [place] (Atrovent Neb 0.5mg/2.5ml) 0.5 mg HHN Q4HRT [facility] Stop: 07/17/17 14:59 Last Admin: 05/23/17 20:09 Dose: 0.5 mg Isosorbide Dinitrate (Isordil) 10 mg GT TID [facility] Stop: 07/14/17 08:59 Last Admin: 05/23/17 20:49 Dose: 10 mg Lactobacillus Rhamnosus (Culturelle) 1 each PO DAILY YESSICA Stop: 07/17/17 08:59 Last Admin: 05/23/17 08:59 Dose: 1 each Levetiracetam (Keppra) 250 mg NG BID [facility] Stop: 07/14/17 08:59 Last Admin: 05/23/17 16:04 Dose: 250 mg Lorazepam (Ativan) 1 mg IVP Q4H PRN; Protocol PRN Reason: Agitation Stop: 07/19/17 09:02 Last Admin: 05/23/17 01:33 Dose: 1 mg Metoclopramide HCl (Reglan) 5 mg IVP TID YESSICA Stop: 07/20/17 20:59 Last Admin: 05/23/17 20:50 Dose: 5 mg Metoprolol Tartrate (Lopressor) 50 mg GT Q8H [facility] Stop: 07/18/17 08:59 Last Admin: 05/23/17 16:03 Dose: 50 mg Miscellaneous (Vte Chemical Prophylaxis Screen/ Admission) 1 ea PRN PRN PRN Reason: PROTOCOL Stop: 07/14/17 09:25 Miscellaneous (Clinical Monitoring) 1 ea DAILY PRN PRN Reason: RENAL Stop: 07/15/17 12:32 Miscellaneous (Probiotic Screen) 1 ea MC PRN PRN PRN Reason: PROTOCOL Stop: 07/16/17 09:33 Miscellaneous (Ppn Per Pharmacy) 1 ea MC PRN PRN PRN Reason: PROTOCOL Stop: 07/21/17 10:23 Miscellaneous (Tpn Per Pharmacy) 1 ea MC PRN PRN PRN Reason: PROTOCOL Stop: 07/22/17 17:11 Mupirocin (Bactroban Oint) 1 appl TP BID YESSICA Stop: 07/14/17 16:59 Last Admin: 05/23/17 16:06 Dose: 1 appl Pantoprazole Sodium (Protonix) 40 mg GT DAILY [facility] Stop: 07/14/17 08:59 Last Admin: 05/23/17 08:59 Dose: 40 mg General: Alert, No acute distress, Moderate distress, Other (Altered) HEENT: Atraumatic, Mucous membr. moist/pink Neck: Supple, +2 carotid pulse wo bruit Cardiovascular: Regular rate, Normal S1, Normal S2, Other (afib with fluctuating heart rate) Lungs: Clear to auscultation (rales bilaterally), Other (bilateral rales ) Abdomen: Bowel sounds, Soft, no Distended Extremities: no Edema Neurological: Sensation intact Skin: no Rash Psych/Mental Status: Mood NL - Procedures Procedures: Procedures Procedure Code Date INSERT EMERGENCY AIRWAY 58606 05/13/17 INSERT TUNNELED CV CATH 34982 05/13/17 INSERTION OF ENDOTRACHEAL AIRWAY INTO TRACHEA, VIA OPENING [id number] 05/13/17 INSERTION OF INFUSION DEV INTO R FEMOR VEIN, PERC APPROACH [id number] 05/13/17 RESPIRATORY VENTILATION, LESS THAN 24 CONSECUTIVE HOURS [id number] 05/13/17 VENT MGMT INPAT INIT DAY 94534 05/13/17 Assessment/Plan - Problem List Patient Problems: All Active Problems COUGH AND CONGESTION (Acute) - Assessment Assessment: Current Active Problems Problem Status Onset COUGH AND CONGESTION Acute Diarrhea possibly stool softner related Anemia Hypoglycemia Acute respiratory failure on vent Renal failure improving on HD MDRO Pneumonia Afib RVR UTI CAD 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 HTN renal disease Seizure disorder - Plan Plan: DC lactulose Heparin sub Q Stool OB Cardizem iv prn Metoprolol Tygacil per ID rec HD per nephrology rec Continue vent support PPN started for nutritional support Off vasopressor Feeding on hold due to tolerance issue Plan of care discussed with nursing staff Plan of care discussed with nursing staff Nutritional Asmnt/Malnutr-PDOC - Dietary Evaluation Malnutrition Findings (Please click <Entered> for more info): Nutritional Asmnt/Malnutrition Start: 05/15/17 13: 56 Text: Status: Complete Freq: Document 05/15/17 13:56 GSUN (Rec: 05/15/17 14:18 GSUN [id number]) Nutritional Asmnt/Malnutrition Patient General Information Nutritional Screening High Risk Screening Diagnosis PNA, NICK, icnreasing renal failure, CVA, CHF, DM Pertinent Medical Hx/Surgical Hx CVA, dementia, afib, CAD, HTN, dyslipidemia, epilepsy, GERD, aspiration PNA, DM, CKD, dehydration, C. diff, anemia D Subjective Information 86 year old male from SNF. Pt greeted RD. Pt is overall thin , moderate to severe wasting to chest, clavicles, extremities. Observed Glytrol running at 60ml/hr x20hrs during visit. Unable to obtain CBW due to bedscale not calibrated. Discussed with YVETTE Farooq regarding tube feeding recommendations. Current Diet Order/ Nutrition Support Glytrol at 60ml/hr x 20hrs, providing 1200kcal 54g protein Pertinent Medications Lipitor, Novolog, Levemir, Cephulac, Morphine, Protonix, Nacl 0.9% Pertinent Labs 05/13: potassium 5.3H, BUN 80H, creatinine 2.4H, glucose 103 05/15: potassium WNL, BUN 70H, creatinine 2.4H, glucose 239H, A1c 6.1H, phosphorus 5.4H Nutritional Hx/Data Height 1.68 m Height (Calculated Centimeters) 167.6 Current Weight (lbs) 65.771 kg Weight (Calculated Kilograms) 65.8 Weight (Calculated Grams) 22204.9 [place] Body Weight 142 Weight Status Approriate GI Symptoms Difficult in: Swallowing Cultural/Ethnic/T[employer]ist Belief [facility]: Glucerna 1.2 at 85ml/hr x 20hrs, providing 2040kcal, promote weight gain. Skin Integrity/Comment: Gee 12. Skin intact. Estimated Nutritional Goals Calories/Kcals/Kg CBW 145lb/65.9kg Kcals Calculated 1976-2306kcal (30-35kcal/kg) Protein Calculated 46-92g (0.7-1.4g/kg, renal vs moderate to severe wasting) Fluid: ml Per MD (renal) Nutritional Problem 2. 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 Problem Problem Inadequate intake from enteral nutrition infusion related to Etiology estimated nutritional needs aeb Signs/Symptoms: providing to meet 61% lower end kcal needs Intervention/Recommendation Comments 1. Recommend Novasource Renal at 50ml/hr x 20hrs, providing 2000kcal and 91g protein. Current order Glytrol at 60ml/ hr x 20hrs is only providing 1200kcal, pt recieves 2040kcal at [facility]. Expected Outcomes/Goals Expected Outcomes/Goals 1. Pt to meet at least 100% of estimated nutritional needs on tube feeding with tolerance .
--- NOTE | 2017-05-23 23:33 | Infectious Disease Prog Note ---
Infectious Disease Subjective - Review of Systems Service Date: 05/23/17 Subjective: No new change. No fever. intubated orally, on vent support. Infectious Disease Objective - Results Result Diagrams: 05/24/17 04:49 05/24/17 04:49 Recent Labs: Laboratory Last Values WBC 11.0 Th/cmm (4.8-10.8) H 05/23/17 04:48 RBC 2.76 Mil/cmm (3.80-5.80) L 05/23/17 04:48 Hgb 7.8 gm/dL (12.6-17.4) L* 05/23/17 04:48 Hct 23.3 % (39.0-49.0) L* 05/23/17 04:48 MCV 84.3 fl (80-99) 05/23/17 04:48 MCH 28.1 pg (27.0-31.0) 05/23/17 04:48 MCHC Differential 33.4 pg (28.0-36.0) 05/23/17 04:48 RDW 15.3 % (11.5-20.0) 05/23/17 04:48 Plt Count 155 Th/cmm (150-400) 05/23/17 04:48 MPV 8.7 fl 05/23/17 04:48 Neutrophils % 75.7 % (40.0-80.0) 05/18/17 07:33 Band Neutrophils % 10 % (0-10) 05/23/17 04:48 Lymphocytes % 13.2 % (20.0-50.0) L 05/18/17 07:33 Monocytes % 8.3 % (2.0-10.0) 05/18/17 07:33 Eosinophils % 2.0 % (0.0-5.0) 05/18/17 07:33 Basophils % 0.8 % (0.0-2.0) 05/18/17 07:33 Neutrophils (Manual) 75 % (40-80) 05/23/17 04:48 Lymphocytes 7 % (20-50) L 05/23/17 04:48 Monocytes 8 % (2-10) 05/23/17 04:48 Eosinophils 1 % (0-5) 05/20/17 04:50 Metamyelocytes 1 % (0-0) H 05/22/17 04:44 Toxic Granulation 1+ 05/23/17 04:48 Platelet Estimate ADEQUATE (NORMAL) 05/23/17 04:48 Platelet Morphology NORMAL (NORMAL) 05/22/17 04:44 Anisocytosis 1+ 05/22/17 04:44 RBC Morph Micro Appear ABNORMAL (NORMAL) 05/22/17 04:44 Eos Smear Source URINE 05/14/17 18:00 Eos Smear Total Cells FEW EOSINOPHILS SEEN (NONE SEEN) 05/14/17 18:00 PT 11.9 SECONDS (9.5-11.5) H 05/13/17 17:42 INR 1.13 (0.5-1.4) 05/13/17 17:42 PTT (Actin FS) 30.5 SECONDS (26.0-38.0) 05/15/17 12:30 Specimen Source Arterial 05/23/17 09:08 Sample Site Right Radial 05/23/17 09:08 pH 7.48 (7.35-7.45) H 05/23/17 09:08 pCO2 32.0 mmHg (35.0-45.0) L 05/23/17 09:08 pO2 80.0 mmHg (80.0-100.0) 05/23/17 09:08 HCO3 25.6 mEq/L (20.0-26.0) 05/23/17 09:08 Base Excess 0.9 mEq/L (-3.0-3.0) 05/23/17 09:08 O2 Saturation 97.0 % (92.0-100.0) 05/23/17 09:08 Feliciano Test YES 05/23/17 09:08 Vent Rate 24 05/23/17 09:08 Inspired O2 40 05/23/17 09:08 Tidal Volume 500 05/23/17 09:08 PEEP NA 05/23/17 09:08 Pressure (ins/psv/peep) NA 05/23/17 09:08 Critical Value E.MCNEAL 05/23/17 09:08 Sodium 137 mEq/L (136-145) 05/23/17 04:48 Potassium 3.4 mEq/L (3.5-5.1) L 05/23/17 04:48 Chloride 105 mEq/L (98-107) 05/23/17 04:48 Carbon Dioxide 23.2 mEq/L (21.0-31.0) 05/23/17 04:48 Anion Gap 12.2 (7.0-16.0) 05/23/17 04:48 BUN 47 mg/dL (7-25) H 05/23/17 04:48 Creatinine 2.6 mg/dL (0.7-1.3) H 05/23/17 04:48 Est GFR ( Amer) TNP 05/23/17 04:48 Est GFR (Non-Af Amer) TNP 05/23/17 04:48 BUN/Creatinine Ratio 18.1 05/23/17 04:48 Glucose 90 mg/dL (70-105) 05/23/17 04:48 POC Glucose 243 MG/DL (70 - 105) H 05/23/17 18:12 Hemoglobin A1c % 6.1 % (4.0-6.0) H 05/15/17 06:30 Plasma/Ser Osmolality 301 mOsmol/kg (280-301) 05/14/17 18:20 Whole Bld Lactic Acid 1.58 mmol/L (0.60-1.99) 05/13/17 17:42 Uric Acid 7.7 mg/dL (4.4-7.6) H 05/15/17 06:30 Calcium 8.9 mg/dL (8.6-10.3) 05/23/17 04:48 Phosphorus 2.0 mg/dL (2.5-5.0) L 05/23/17 04:44 Magnesium 1.8 mg/dL (1.9-2.7) L 05/23/17 04:44 Total Bilirubin 0.5 mg/dL (0.3-1.0) 05/23/17 04:48 Direct Bilirubin 0.09 mg/dL (0.0-0.2) 05/19/17 04:50 AST 21 U/L (13-39) 05/23/17 04:48 ALT 5 U/L (7-52) L 05/23/17 04:48 Alkaline Phosphatase 72 U/L (34-104) 05/23/17 04:48 Ammonia 65 umol/L (16-53) H 05/19/17 04:50 Creatine Kinase 35 U/L (30-223) 05/16/17 23:06 Troponin I 0.02 ng/mL (0.01-0.05) 05/16/17 23:06 B-Natriuretic Peptide 739.0 pg/mL (5.0-100.0) H 05/23/17 04:48 Total Protein 6.1 gm/dL (6.0-8.3) 05/23/17 04:48 Albumin 3.3 gm/dL (4.2-5.5) L 05/23/17 04:48 Globulin 2.8 gm/dL 05/23/17 04:48 Albumin/Globulin Ratio 1.2 (1.0-1.8) 05/23/17 04:48 Prealbumin 14 mg/dL (9-32) 05/18/17 07:33 TSH 2.74 uIU/ml (0.34-5.60) 05/15/17 06:30 Urine Source CATH 05/13/17 19:50 Urine Color YELLOW 05/13/17 19:50 Urine Clarity CLOUDY (CLEAR) 05/13/17 19:50 Urine pH 6.0 05/13/17 19:50 Ur Specific [place] 1.015 (1.005-1.030) 05/13/17 19:50 Urine Protein 100 mg/dL (NEGATIVE) H 05/13/17 19:50 Urine Glucose (UA) NEGATIVE mg/dL (NEGATIVE) 05/13/17 19:50 Urine Ketones NEGATIVE mg/dL (NEGATIVE) 05/13/17 19:50 Urine Blood LARGE (NEGATIVE) H 05/13/17 19:50 Urine Nitrate NEGATIVE (NEGATIVE) 05/13/17 19:50 Urine Bilirubin NEGATIVE (NEGATIVE) 05/13/17 19:50 Urine Urobilinogen 0.2 E.U./dL (0.2 - 1.0) 05/13/17 19:50 Ur Leukocyte Esterase LARGE (NEGATIVE) H 05/13/17 19:50 Urine RBC 50-100 /hpf (0-5) H 05/13/17 19:50 Urine WBC >100 /hpf (0-5) H 05/13/17 19:50 Ur Epithelial Cells NONE SEEN /lpf (FEW) 05/13/17 19:50 Urine Bacteria NONE SEEN /hpf (NONE SEEN) 05/13/17 19:50 Ur Random Sodium 30 mmol/L 05/14/17 18:00 Urine Creatinine 36.4 mg/dl (Not Estab.) 05/14/17 18:00 Urine Microalbumin 363.5 ug/mL (Not Estab.) 05/14/17 18:00 Microalb/Creat Ratio 998.6 mg/g creat (0.0-30.0) H 05/14/17 18:00 Random Vancomycin 19.1 ug/mL (5.0-40.0) 05/19/17 04:50 Hepatitis A IgM Ab Negative (Negative) 05/21/17 04:46 Hep Bs Antigen Negative (Negative) 05/21/17 04:46 Hep B Core IgM Ab Negative (Negative) 05/21/17 04:46 Hepatitis C Antibody 0.1 s/co ratio (0.0-0.9) 05/21/17 04:46 Blood Type B POSITIVE 05/21/17 10:19 Antibody Screen NEGATIVE 05/21/17 10:19 Crossmatch See Detail 05/21/17 10:19 - Physical Exam Vitals and I&O: Vital Signs Temp 98.2 F 05/23/17 20:00 Pulse 100 05/23/17 23:00 Resp 18 05/23/17 23:00 BP 153/92 05/23/17 23:00 Pulse Ox 100 05/23/17 23:00 Intake & Output 05/23/17 05/23/17 05/24/17 06:59 18:59 06:59 Intake Total 710 580 100 Output Total 10 50 Balance 700 530 100 Weight (lbs) 62.596 kg 62.596 kg Intake: Intake, IV Amount 150 100 100 Fluconazole 100mg/50mL 50 100 mg In 50 ml @ 50 mls/ hr IV Q24HR [facility] Rx#: [id number] Tigecycline 50 mg In 100 100 100 Sodium Chloride 0.9% 100 ml @ 100 mls/hr IV Q12H [facility] Rx#:[id number] TPN/PPN 480 480 Other 80 Output: Urine 10 50 Other: # Bowel Movements 1 Stool Characteristics Soft Soft Liquid Brown Active Medications: Current Medications Acetaminophen (Tylenol) 650 mg PO Q4HR PRN PRN Reason: Pain Or Fever above 101 Stop: 07/14/17 15:15 Last Admin: 05/23/17 15:07 Dose: 650 mg Albuterol/Ipratropium (Duoneb Neb) 3 ml HHN Q4HRT [facility] Stop: 07/19/17 14:59 Last Admin: 05/23/17 22:43 Dose: 3 ml Atorvastatin Calcium (Lipitor) 10 mg GT HS YESSICA PRN Reason: Protocol Stop: 07/14/17 20:59 Last Admin: 05/23/17 20:49 Dose: 10 mg Budesonide (Pulmicort) 1 mg HHN BIDRT YESSICA Stop: 07/19/17 18:59 Last Admin: 05/23/17 20:09 Dose: 1 mg Carbidopa/Levodopa (Sinemet 25mg-100 Mg) 1 tab PO TID YESSICA Stop: 07/14/17 08:59 Last Admin: 05/23/17 20:49 Dose: 1 tab Dextrose (D50w) 50 ml IVP PRN PRN; Protocol PRN Reason: HYPOGLYCEMIA Stop: 07/20/17 00:54 Last Admin: 05/22/17 23:34 Dose: 50 ml Diltiazem HCl (Cardizem) 10 mg IVP Q6HR PRN PRN Reason: HR >130 Stop: 07/22/17 17:09 Furosemide (Lasix) 40 mg IVP DAILY [facility] Stop: 07/18/17 08:59 Last Admin: 05/23/17 08:59 Dose: 40 mg Heparin Sodium (Porcine) (Heparin) 5,000 units SUBQ Q8HR YESSICA Stop: 07/22/17 20:59 Last Admin: 05/23/17 20:50 Dose: 5,000 units Norepinephrine Bitartrate 8 mg (/ Dextrose) 258 mls @ 0 mls/hr IV TITR PRN; Protocol; Titrate PRN Reason: BP MAINTENANCE (PER PROTOCOL) Stop: 07/19/17 12:29 Last Admin: 05/21/17 01:06 Dose: 10 mcg/min, 19.35 mls/hr Phenylephrine HCl 10 mg/ (Sodium Chloride) 250 mls @ 0 mls/hr IV TITR YESSICA; Per Protocol PRN Reason: Protocol Stop: 07/19/17 12:59 Tigecycline 50 mg/ Sodium (Chloride) 100 mls @ 100 mls/hr IV Q12H [facility] Stop: 07/21/17 18:59 Last Infusion: 05/23/17 20:45 Dose: Infused Fluconazole (Diflucan) 100 mg in 50 mls @ 50 mls/hr IV Q24HR [facility] Stop: 07/21/17 04:59 Last Infusion: 05/23/17 05:35 Dose: Infused Multivitamins/Minerals 5 ml/Dextrose/ Amino Acids/Electrolytes/ Sterile Water 1 ,819 mls @ 40 mls/hr IV .Q24H YESSICA Stop: 07/22/17 15:59 Last Admin: 05/23/17 15:05 Dose: 40 mls/hr Insulin Aspart (Novolog Insulin Sliding Scale) 0 units SUBQ Q6HR YESSICA PRN Reason: Protocol Stop: 07/14/17 00:00 Last Admin: 05/23/17 18:16 Dose: 2 units Ipratropium [place] (Atrovent Neb 0.5mg/2.5ml) 0.5 mg HHN Q4HRT YESSICA Stop: 07/17/17 14:59 Last Admin: 05/23/17 22:43 Dose: 0.5 mg Isosorbide Dinitrate (Isordil) 10 mg GT TID YESSICA Stop: 07/14/17 08:59 Last Admin: 05/23/17 20:49 Dose: 10 mg Lactobacillus Rhamnosus (Culturelle) 1 each PO DAILY YESSICA Stop: 07/17/17 08:59 Last Admin: 05/23/17 08:59 Dose: 1 each Levetiracetam (Keppra) 250 mg NG BID YESSICA Stop: 07/14/17 08:59 Last Admin: 05/23/17 16:04 Dose: 250 mg Lorazepam (Ativan) 1 mg IVP Q4H PRN; Protocol PRN Reason: Agitation Stop: 07/19/17 09:02 Last Admin: 05/23/17 01:33 Dose: 1 mg Metoclopramide HCl (Reglan) 5 mg IVP TID YESSICA Stop: 07/20/17 20:59 Last Admin: 05/23/17 20:50 Dose: 5 mg Metoprolol Tartrate (Lopressor) 50 mg GT Q8H YESSICA Stop: 07/18/17 08:59 Last Admin: 05/23/17 16:03 Dose: 50 mg Miscellaneous (Vte Chemical Prophylaxis Screen/ Admission) 1 ea PRN PRN PRN Reason: PROTOCOL Stop: 07/14/17 09:25 Miscellaneous (Clinical Monitoring) 1 ea MC DAILY PRN PRN Reason: RENAL Stop: 07/15/17 12:32 Miscellaneous (Probiotic Screen) 1 ea PRN PRN PRN Reason: PROTOCOL Stop: 07/16/17 09:33 Miscellaneous (Ppn Per Pharmacy) 1 ea PRN PRN PRN Reason: PROTOCOL Stop: 07/21/17 10:23 Miscellaneous (Tpn Per Pharmacy) 1 ea PRN PRN PRN Reason: PROTOCOL Stop: 07/22/17 17:11 Mupirocin (Bactroban Oint) 1 appl TP BID YESSICA Stop: 07/14/17 16:59 Last Admin: 05/23/17 16:06 Dose: 1 appl Pantoprazole Sodium (Protonix) 40 mg GT DAILY YESSICA Stop: 07/14/17 08:59 Last Admin: 05/23/17 08:59 Dose: 40 mg General: no acute distress, well developed, well nourished HEENT: normocephalic Neck: supple, no thyromegaly Cardiovascular: S1S2, regular, irregular - Procedures Procedures: Procedures Procedure Code Date INSERT EMERGENCY AIRWAY 67979 05/13/17 INSERT TUNNELED CV CATH 54299 05/13/17 INSERTION OF ENDOTRACHEAL AIRWAY INTO TR[place]HEA, VIA OPENING [id number] 05/13/17 INSERTION OF INFUSION DEV INTO R FEMOR VEIN, PERC APPROACH [id number] 05/13/17 RESPIRATORY VENTILATION, LESS THAN 24 CONSECUTIVE HOURS [id number] 05/13/17 VENT MGMT INPAT INIT DAY 20780 05/13/17 Infectious Disease Assmt/Plan - Problem List Patient Problems: All Active Problems COUGH AND CONGESTION (Acute) - Assessment Assessment: 1. Pneuimonia.? Aspiration. 2. NICK. 3. CVA. 4. CHF. 5. CKD4. NICK mild rise in creatinine. 6. Afib with rapid ventricular response. Plan: Continue tygacil D4/10.. Nutritional Asmnt/Malnutr-PDOC - Dietary Evaluation Malnutrition Findings (Please click <Entered> for more info): Nutritional Asmnt/Malnutrition Start: 05/15/17 13: 56 Text: Status: Complete Freq: Document 05/15/17 13:56 GSUN (Rec: 05/15/17 14:18 GSTHALIA [id number]) Nutritional Asmnt/Malnutrition Patient General Information Nutritional Screening High Risk Screening Diagnosis PNA, NICK, icnreasing renal failure, CVA, CHF, DM Pertinent Medical Hx/Surgical Hx CVA, dementia, afib, CAD, HTN, dyslipidemia, epilepsy, GERD, aspiration PNA, DM, CKD, dehydration, C. diff, anemia D Subjective Information 86 year old male from SNF. Pt greeted RD. Pt is overall thin , moderate to severe wasting to chest, clavicles, extremities. Observed Glytrol running at 60ml/hr x20hrs during visit. Unable to obtain CBW due to bedscale not calibrated. Discussed with YVETTE Farooq regarding tube feeding recommendations. Current Diet Order/ Nutrition Support Glytrol at 60ml/hr x 20hrs, providing 1200kcal 54g protein Pertinent Medications Lipitor, Novolog, Levemir, Cephulac, Morphine, Protonix, Nacl 0.9% Pertinent Labs 05/13: potassium 5.3H, BUN 80H, creatinine 2.4H, glucose 103 05/15: potassium WNL, BUN 70H, creatinine 2.4H, glucose 239H, A1c 6.1H, phosphorus 5.4H Nutritional Hx/Data Height 1.68 m Height (Calculated Centimeters) 167.6 Current Weight (lbs) 65.771 kg Weight (Calculated Kilograms) 65.8 Weight (Calculated Grams) 94907.9 [place] Body Weight 142 Weight Status Approriate GI Symptoms Difficult in: Swallowing Cultural/Ethnic/Denominational Belief [facility]: Glucerna 1.2 at 85ml/hr x 20hrs, providing 2040kcal, promote weight gain. Skin Integrity/Comment: Gee Novak. Skin intact. Estimated Nutritional Goals Calories/Kcals/Kg CBW 145lb/65.9kg Kcals Calculated 1976-2307kcal (30-35kcal/kg) Protein Calculated 46-92g (0.7-1.4g/kg, renal vs moderate to severe wasting) Fluid: ml Per MD (renal) Nutritional Problem 2. Problem Problem Impaired nutrient utilization related to Etiology NICK, hx CKD aeb Signs/Symptoms: "increasing renal failure," potaasum 5.3H on adm, BUN 70H, b2b sales consultant 2.4H, phosphorus 5.4H 1. Problem Problem Inadequate intake from enteral nutrition infusion related to Etiology estimated nutritional needs aeb Signs/Symptoms: providing to meet 61% lower end kcal needs Intervention/Recommendation Comments 1. Recommend Novasource Renal at 50ml/hr x 20hrs, providing 2000kcal and 91g protein. Current order Glytrol at 60ml/ hr x 20hrs is only providing 1200kcal, pt recieves 2040kcal at [facility]. Expected Outcomes/Goals Expected Outcomes/Goals 1. Pt to meet at least 100% of estimated nutritional needs on tube feeding with tolerance .
[2017-05-24] MEDS: INSULIN ASPART SLIDING SCALE 100 UNITS/ML UNIT SUBQ SCH ×4 (00:35→18:02)
[2017-05-24] MEDS: Ipratropium Neb 0.5 mg/2.5 mL UD HHN SCH (03:19)
[2017-05-24] MEDS: Albuterol/Ipratropium Neb 3 ML AERS HHN SCH ×6 (03:19→23:58)
[2017-05-24] MEDS: Fluconazole 100mg/50mL 100 MG/50 ML BOTTLE IV SCH (04:26)
[2017-05-24 05:13] LABS: MEAN CORPUSCULAR HEMOGLOBIN 28.7 pg (27.0-31.0)
[2017-05-24 05:35] LABS: ALKALINE PHOSPHATASE 82 U/L (34-104); ANION GAP 16.4 (7.0-16.0); BILIRUBIN,TOTAL 0.6 mg/dL (0.3-1.0); BUN - UREA NITROGEN 75 mg/dL (7-25); BUN/CREATININE RATIO 22.1; CALCIUM SERUM 9.2 mg/dL (8.6-10.3); CARBON DIOXIDE 19.3 mEq/L (21.0-31.0); CHLORIDE 101 mEq/L (98-107); CREATININE - SERUM 3.4 mg/dL (0.7-1.3); GLUCOSE 210 mg/dL (70-105); POTASSIUM SERUM 4.7 mEq/L (3.5-5.1); SGOT 15 U/L (13-39); SGPT/ALT 4 U/L (7-52); SODIUM SERUM 132 mEq/L (136-145)
[2017-05-24 05:36] LABS: CALCIUM SERUM 9.3 mg/dL (8.6-10.3); PHOSPHOROUS 5.1 mg/dL (2.5-5.0)
[2017-05-24 05:37] LABS: MEAN CELL VOLUME 83.7 fl (80-99); MEAN CORPUSCULAR HGB CONC 34.3 pg (28.0-36.0); MEAN PLATELET VOLUME 8.6 fl; RED BLOOD COUNT 3.14 Mil/cmm (3.80-5.80)
[2017-05-24 05:56] LABS: HEMATOCRIT 26.3 % (39.0-49.0); PLATELET COUNT 249 Th/cmm (150-400); WHITE BLOOD COUNT 17.5 Th/cmm (4.8-10.8)
[2017-05-24 06:14] LABS: TOTAL CELLS COUNTED 100
[2017-05-24 06:16] LABS: BAND NEUTROPHILE 9 % (0-10); BASOPHIL 0 % (0-3); EOSINOPHIL 0 % (0-5); NEUTROPHILS 76 % (40-80); PLATELET ESTIMATE ADEQUATE (NORMAL); PLATELET MORPHOLOGY NORMAL (NORMAL)
[2017-05-24] MEDS: Budesonide 0.5 Mg/2 mL Ud HHN SCH ×2 (07:49→19:19)
[2017-05-24] MEDS ORDERED: Insulin Detemir 100 units/mL 10mL Vial SUBQ SCH (09:00)
[2017-05-24] MEDS: Levetiracetam 500 mg/5mL 5mL UDC NG SCH ×2 (09:20→16:33)
[2017-05-24] MEDS: Pantoprazole 40 mg/Packet GT SCH (09:30)
[2017-05-24] MEDS: Metoclopramide 5 mg/mL 2mL Vial IVP SCH ×3 (09:40→20:59)
--- NOTE | 2017-05-24 09:49 | Diagnostic Imaging Report ---
Some: Portable examination of chest. HISTORY: Shortness of breath respiratory failure. Findings: Orbital summation of chest at 0746 hours was reviewed no prior studies available comparison. The study demonstrates bilateral multifocal interstitial infiltrates with superimposed small right pleural effusion. Endotracheal tube terminates 6 cm above the matias. Bony thorax remarkable for degenerative changes. IMPRESSION: Bilateral interstitial infiltrate superimposed small right pleural effusion. Follow-up examination recommended.
[2017-05-24] MEDS: Lactobacillus Rhamnosus 10 Billion CFU Capsule PO SCH (10:09)
[2017-05-24 11:40] LABS: ABG SOURCE Arterial; ALLEN TEST YES; FIO2 40; HCO3 24.8 mEq/L (20.0-26.0); MECH RATE 8; MECH VT 500; PS 15
[2017-05-24 11:41] LABS: CRITICAL VALUES REPORTED BY SH
--- NOTE | 2017-05-24 14:36 | General Progress Note ---
Subjective - Review of Systems Subjective: sleeping, on vent, nonverbal Objective - Results Result Diagrams: 05/24/17 04:49 05/24/17 04:49 Recent Labs: Laboratory Last Values WBC 17.5 Th/cmm (4.8-10.8) H D 05/24/17 04:49 RBC 3.14 Mil/cmm (3.80-5.80) L 05/24/17 04:49 Hgb 9.0 gm/dL (12.6-17.4) L 05/24/17 04:49 Hct 26.3 % (39.0-49.0) L D 05/24/17 04:49 MCV 83.7 fl (80-99) 05/24/17 04:49 MCH 28.7 pg (27.0-31.0) 05/24/17 04:49 MCHC Differential 34.3 pg (28.0-36.0) 05/24/17 04:49 RDW 16.0 % (11.5-20.0) 05/24/17 04:49 Plt Count 249 Th/cmm (150-400) D 05/24/17 04:49 MPV 8.6 fl 05/24/17 04:49 Neutrophils % PAPER STRIPPER 05/24/17 04:49 Band Neutrophils % 9 % (0-10) 05/24/17 04:49 Lymphocytes % PAPER STRIPPER 05/24/17 04:49 Monocytes % PAPER STRIPPER 05/24/17 04:49 Eosinophils % PAPER STRIPPER 05/24/17 04:49 Basophils % PAPER STRIPPER 05/24/17 04:49 Neutrophils (Manual) 76 % (40-80) 05/24/17 04:49 Lymphocytes 11 % (20-50) L 05/24/17 04:49 Monocytes 4 % (2-10) 05/24/17 04:49 Eosinophils 0 % (0-5) 05/24/17 04:49 Basophils 0 % (0-3) 05/24/17 04:49 Metamyelocytes 1 % (0-0) H 05/22/17 04:44 Toxic Granulation 1+ 05/23/17 04:48 Platelet Estimate ADEQUATE (NORMAL) 05/24/17 04:49 Platelet Morphology NORMAL (NORMAL) 05/24/17 04:49 Anisocytosis 1+ 05/22/17 04:44 RBC Morph Micro Appear NORMAL (NORMAL) 05/24/17 04:49 Eos Smear Source URINE 05/14/17 18:00 Eos Smear Total Cells FEW EOSINOPHILS SEEN (NONE SEEN) 05/14/17 18:00 PT 11.9 SECONDS (9.5-11.5) H 05/13/17 17:42 INR 1.13 (0.5-1.4) 05/13/17 17:42 PTT (Actin FS) 30.5 SECONDS (26.0-38.0) 05/15/17 12:30 Specimen Source Arterial 05/24/17 09:00 Sample Site Right Radial 05/24/17 09:00 pH 7.40 (7.35-7.45) 05/24/17 09:00 pCO2 40.0 mmHg (35.0-45.0) 05/24/17 09:00 pO2 66.0 mmHg (80.0-100.0) L 05/24/17 09:00 HCO3 24.8 mEq/L (20.0-26.0) 05/24/17 09:00 Base Excess 0.0 mEq/L (-3.0-3.0) 05/24/17 09:00 O2 Saturation 93.0 % (92.0-100.0) 05/24/17 09:00 Feliciano Test YES 05/24/17 09:00 Vent Rate 8 05/24/17 09:00 Inspired O2 40 05/24/17 09:00 Tidal Volume 500 05/24/17 09:00 PEEP 0 05/24/17 09:00 Pressure (ins/psv/peep) 15 05/24/17 09:00 Critical Value SH 05/24/17 09:00 Sodium 132 mEq/L (136-145) L 05/24/17 04:49 Potassium 4.7 mEq/L (3.5-5.1) 05/24/17 04:49 Chloride 101 mEq/L (98-107) 05/24/17 04:49 Carbon Dioxide 19.3 mEq/L (21.0-31.0) L 05/24/17 04:49 Anion Gap 16.4 (7.0-16.0) H 05/24/17 04:49 BUN 75 mg/dL (7-25) H 05/24/17 04:49 Creatinine 3.4 mg/dL (0.7-1.3) H 05/24/17 04:49 Est GFR ( Amer) TNP 05/24/17 04:49 Est GFR (Non-Af Amer) TNP 05/24/17 04:49 BUN/Creatinine Ratio 22.1 05/24/17 04:49 Glucose 210 mg/dL (70-105) H 05/24/17 04:49 POC Glucose 227 MG/DL (70 - 105) H 05/24/17 12:08 Hemoglobin A1c % 6.1 % (4.0-6.0) H 05/15/17 06:30 Plasma/Ser Osmolality 301 mOsmol/kg (280-301) 05/14/17 18:20 Whole Bld Lactic Acid 1.58 mmol/L (0.60-1.99) 05/13/17 17:42 Uric Acid 7.7 mg/dL (4.4-7.6) H 05/15/17 06:30 Calcium 9.3 mg/dL (8.6-10.3) 05/24/17 04:49 Phosphorus 5.1 mg/dL (2.5-5.0) H 05/24/17 04:49 Magnesium 2.0 mg/dL (1.9-2.7) 05/24/17 04:49 Total Bilirubin 0.6 mg/dL (0.3-1.0) 05/24/17 04:49 Direct Bilirubin 0.09 mg/dL (0.0-0.2) 05/19/17 04:50 AST 15 U/L (13-39) 05/24/17 04:49 ALT 4 U/L (7-52) L 05/24/17 04:49 Alkaline Phosphatase 82 U/L (34-104) 05/24/17 04:49 Ammonia 65 umol/L (16-53) H 05/19/17 04:50 Creatine Kinase 35 U/L (30-223) 05/16/17 23:06 Troponin I 0.02 ng/mL (0.01-0.05) 05/16/17 23:06 B-Natriuretic Peptide 739.0 pg/mL (5.0-100.0) H 05/23/17 04:48 Total Protein 6.9 gm/dL (6.0-8.3) 05/24/17 04:49 Albumin 3.4 gm/dL (4.2-5.5) L 05/24/17 04:49 Globulin 3.5 gm/dL 05/24/17 04:49 Albumin/Globulin Ratio 1.0 (1.0-1.8) 05/24/17 04:49 Prealbumin 14 mg/dL (9-32) 05/18/17 07:33 Triglycerides 47 mg/dL (<150) 05/24/17 04:49 Cholesterol 55 mg/dL (<200) 05/24/17 04:49 TSH 2.74 uIU/ml (0.34-5.60) 05/15/17 06:30 Urine Source CATH 05/13/17 19:50 Urine Color YELLOW 05/13/17 19:50 Urine Clarity CLOUDY (CLEAR) 05/13/17 19:50 Urine pH 6.0 05/13/17 19:50 Ur Specific [place] 1.015 (1.005-1.030) 05/13/17 19:50 Urine Protein 100 mg/dL (NEGATIVE) H 05/13/17 19:50 Urine Glucose (UA) NEGATIVE mg/dL (NEGATIVE) 05/13/17 19:50 Urine Ketones NEGATIVE mg/dL (NEGATIVE) 05/13/17 19:50 Urine Blood LARGE (NEGATIVE) H 05/13/17 19:50 Urine Nitrate NEGATIVE (NEGATIVE) 05/13/17 19:50 Urine Bilirubin NEGATIVE (NEGATIVE) 05/13/17 19:50 Urine Urobilinogen 0.2 E.U./dL (0.2 - 1.0) 05/13/17 19:50 Ur Leukocyte Esterase LARGE (NEGATIVE) H 05/13/17 19:50 Urine RBC 50-100 /hpf (0-5) H 05/13/17 19:50 Urine WBC >100 /hpf (0-5) H 05/13/17 19:50 Ur Epithelial Cells NONE SEEN /lpf (FEW) 05/13/17 19:50 Urine Bacteria NONE SEEN /hpf (NONE SEEN) 05/13/17 19:50 Ur Random Sodium 30 mmol/L 05/14/17 18:00 Urine Creatinine 36.4 mg/dl (Not Estab.) 05/14/17 18:00 Urine Microalbumin 363.5 ug/mL (Not Estab.) 05/14/17 18:00 Microalb/Creat Ratio 998.6 mg/g creat (0.0-30.0) H 05/14/17 18:00 Random Vancomycin 19.1 ug/mL (5.0-40.0) 05/19/17 04:50 Hepatitis A IgM Ab Negative (Negative) 05/21/17 04:46 Hep Bs Antigen Negative (Negative) 05/21/17 04:46 Hep B Core IgM Ab Negative (Negative) 05/21/17 04:46 Hepatitis C Antibody 0.1 s/co ratio (0.0-0.9) 05/21/17 04:46 Blood Type B POSITIVE 05/21/17 10:19 Antibody Screen NEGATIVE 05/21/17 10:19 Crossmatch See Detail 05/21/17 10:19 - Physical Exam Vitals and I&O: Vital Signs Temp 98.2 F 05/24/17 11:00 Pulse 93 05/24/17 13:58 Resp 21 05/24/17 11:00 BP 162/83 05/24/17 13:58 Pulse Ox 98 05/24/17 13:22 Intake & Output 05/23/17 05/24/17 05/24/17 18:59 06:59 18:59 Intake Total 580 630 Output Total 50 30 Balance 530 600 Weight (lbs) 62.596 kg 62.596 kg Intake: Intake, IV Amount 100 150 Fluconazole 100mg/50mL 50 100 mg In 50 ml @ 50 mls/ hr IV Q24HR [facility] Rx#: [id number] Tigecycline 50 mg In 100 100 Sodium Chloride 0.9% 100 ml @ 100 mls/hr IV Q12H [facility] Rx#:[id number] TPN/PPN 480 480 Output: Urine 50 30 Other: # Bowel Movements 1 Stool Characteristics Soft Liquid Brown Active Medications: Current Medications Acetaminophen (Tylenol) 650 mg PO Q4HR PRN PRN Reason: Pain Or Fever above 101 Stop: 07/14/17 15:15 Last Admin: 05/23/17 15:07 Dose: 650 mg Albuterol/Ipratropium (Duoneb Neb) 3 ml HHN Q4HRT YESSICA Stop: 07/19/17 14:59 Last Admin: 05/24/17 11:25 Dose: 3 ml Atorvastatin Calcium (Lipitor) 10 mg GT HS YESSICA PRN Reason: Protocol Stop: 07/14/17 20:59 Last Admin: 05/23/17 20:49 Dose: 10 mg Budesonide (Pulmicort) 1 mg HHN BIDRT [facility] Stop: 07/19/17 18:59 Last Admin: 05/24/17 07:49 Dose: 1 mg Carbidopa/Levodopa (Sinemet 25mg-100 Mg) 1 tab PO TID [facility] Stop: 07/14/17 08:59 Last Admin: 05/24/17 13:59 Dose: 1 tab Chlorhexidine Gluconate (Peridex) 15 ml MM 0800,2000 [facility] Stop: 07/23/17 19:59 Dextrose (D50w) 50 ml IVP PRN PRN; Protocol PRN Reason: HYPOGLYCEMIA Stop: 07/20/17 00:54 Last Admin: 05/22/17 23:34 Dose: 50 ml Diltiazem HCl (Cardizem) 10 mg IVP Q6HR PRN PRN Reason: HR >130 Stop: 07/22/17 17:09 Last Admin: 05/24/17 04:21 Dose: 10 mg Furosemide (Lasix) 40 mg IVP DAILY [facility] Stop: 07/18/17 08:59 Last Admin: 05/24/17 09:40 Dose: 40 mg Heparin Sodium (Porcine) (Heparin) 5,000 units SUBQ Q8HR [facility] Stop: 07/22/17 20:59 Last Admin: 05/24/17 13:57 Dose: 5,000 units Norepinephrine Bitartrate 8 mg (/ Dextrose) 258 mls @ 0 mls/hr IV TITR PRN; Protocol; Titrate PRN Reason: BP MAINTENANCE (PER PROTOCOL) Stop: 07/19/17 12:29 Last Admin: 05/21/17 01:06 Dose: 10 mcg/min, 19.35 mls/hr Phenylephrine HCl 10 mg/ (Sodium Chloride) 250 mls @ 0 mls/hr IV TITR YESSICA; Per Protocol PRN Reason: Protocol Stop: 07/19/17 12:59 Tigecycline 50 mg/ Sodium (Chloride) 100 mls @ 100 mls/hr IV Q12H [facility] Stop: 07/21/17 18:59 Last Admin: 05/24/17 06:26 Dose: 100 mls/hr Fluconazole (Diflucan) 100 mg in 50 mls @ 50 mls/hr IV Q24HR [facility] Stop: 07/21/17 04:59 Last Infusion: 05/24/17 04:56 Dose: Infused Multivitamins/Minerals 5 ml/Dextrose/ Amino Acids/Electrolytes/ Sterile Water 1 ,819 mls @ 40 mls/hr IV .Q24H YESSICA Stop: 07/22/17 15:59 Last Admin: 05/23/17 15:05 Dose: 40 mls/hr Insulin Aspart (Novolog Insulin Sliding Scale) 0 units SUBQ Q6HR YESSICA PRN Reason: Protocol Stop: 07/14/17 00:00 Last Admin: 05/24/17 12:11 Dose: 2 units Ipratropium [place] (Atrovent Neb 0.5mg/2.5ml) 0.5 mg HHN Q4HRT [facility] Stop: 07/17/17 14:59 Last Admin: 05/24/17 03:19 Dose: 0.5 mg Isosorbide Dinitrate (Isordil) 10 mg GT TID [facility] Stop: 07/14/17 08:59 Last Admin: 05/24/17 13:58 Dose: 10 mg Lactobacillus Rhamnosus (Culturelle) 1 each PO DAILY [facility]ESSICA Stop: 07/17/17 08:59 Last Admin: 05/24/17 10:09 Dose: 1 each Levetiracetam (Keppra) 250 mg NG BID [facility] Stop: 07/14/17 08:59 Last Admin: 05/24/17 09:20 Dose: 250 mg Lorazepam (Ativan) 1 mg IVP Q4H PRN; Protocol PRN Reason: Agitation Stop: 07/19/17 09:02 Last Admin: 05/24/17 13:50 Dose: 1 mg Metoclopramide HCl (Reglan) 5 mg IVP TID [facility] Stop: 07/20/17 20:59 Last Admin: 05/24/17 13:54 Dose: 5 mg Metoprolol Tartrate (Lopressor) 50 mg GT Q8H [facility] Stop: 07/18/17 08:59 Last Admin: 05/24/17 09:10 Dose: 50 mg Miscellaneous (Vte Chemical Prophylaxis Screen/ Admission) 1 ea PRN PRN PRN Reason: PROTOCOL Stop: 07/14/17 09:25 Miscellaneous (Clinical Monitoring) 1 ea MC DAILY PRN PRN Reason: RENAL Stop: 07/15/17 12:32 Miscellaneous (Probiotic Screen) 1 ea MC PRN PRN PRN Reason: PROTOCOL Stop: 07/16/17 09:33 Miscellaneous (Ppn Per Pharmacy) 1 ea MC PRN PRN PRN Reason: PROTOCOL Stop: 07/21/17 10:23 Miscellaneous (Tpn Per Pharmacy) 1 ea MC PRN PRN PRN Reason: PROTOCOL Stop: 07/22/17 17:11 Mupirocin (Bactroban Oint) 1 appl TP BID YESSICA Stop: 07/14/17 16:59 Last Admin: 05/24/17 09:15 Dose: 1 appl Pantoprazole Sodium (Protonix) 40 mg GT DAILY [facility]ESS[facility] Stop: 07/14/17 08:59 Last Admin: 05/24/17 09:30 Dose: 40 mg General: No acute distress, Moderate distress, Other (Altered), no Alert HEENT: Atraumatic, Mucous membr. moist/pink Neck: Supple, +2 carotid pulse wo bruit Cardiovascular: Regular rate, Normal S1, Normal S2, Other (afib with fluctuating heart rate) Lungs: Clear to auscultation (rales bilaterally), Other (bilateral rales ) Abdomen: Bowel sounds, Soft, no Distended Extremities: no Edema Neurological: Sensation intact Skin: no Rash Psych/Mental Status: Mood NL - Procedures Procedures: Procedures Procedure Code Date INSERT EMERGENCY AIRWAY 38023 05/13/17 INSERT TUNNELED CV CATH 12702 05/13/17 INSERTION OF ENDOTRACHEAL AIRWAY INTO TRACHEA, VIA OPENING [id number] 05/13/17 INSERTION OF INFUSION DEV INTO R FEMOR VEIN, PERC APPROACH 63ES66A 05/13/17 RESPIRATORY VENTILATION, LESS THAN 24 CONSECUTIVE HOURS [id number] 05/13/17 VENT MGMT INPAT INIT DAY 33124 05/13/17 Assessment/Plan - Problem List Patient Problems: All Active Problems COUGH AND CONGESTION (Acute) - Assessment Assessment: NICK on CKD, now on dialysis A LOC secondary to metabolic encephalopathy/medications Dehydration Essential hypertension with CKD COPD Chronic atrial fibrillation Status post CVA Aspiration pneumonia/dysphagia status post PEG Type 2 diabetes mellitus with CKD Acute Decompensated CHF Acute Resp Failure on Vent Bradycardia - Plan Plan: Lab - Result Diagrams 05/15/17 06:30 05/15/17 06:30 Current Medications Acetaminophen (Tylenol) 650 mg PO Q4HR PRN PRN Reason: Pain Or Fever above 101 Stop: 07/14/17 15:15 Last Admin: 05/15/17 16:21 Dose: 650 mg Albuterol Sulfate (Albuterol 2.5mg/3ml Neb Ud) 2.5 mg HHN Q6HRT [facility] Stop: 07/14/17 00:59 Last Admin: 05/15/17 16:05 Dose: 2.5 mg Atorvastatin Calcium (Lipitor) 10 mg GT HS YESSICA PRN Reason: Protocol Stop: 07/14/17 20:59 Carbidopa/Levodopa (Sinemet 25mg-100 Mg) 1 tab PO TID [facility] Stop: 07/14/17 08:59 Last Admin: 05/15/17 14:02 Dose: 1 tab Heparin Sodium (Porcine) (Heparin) 5,000 units SUBQ Q8H [facility] Stop: 07/14/17 14:59 Last Admin: 05/15/17 16:24 Dose: 5,000 units Sodium Chloride (Nacl 0.9%) 1,000 mls @ 60 mls/hr IV .[id number] [facility] Stop: 07/13/17 06:40 Last Admin: 05/14/17 17:16 Dose: 60 mls/hr Azithromycin 250 mg/ Sodium (Chloride) 250 mls @ 250 mls/hr IV Q24HR [facility] Stop: 05/20/17 08:59 Piperacillin Sod/Tazobactam (Sod 3.375 gm/ Sodium Chloride) 50 mls @ 100 mls/ hr IV Q8HR [facility] Stop: 07/14/17 15:14 Last Admin: 05/15/17 15:57 Dose: 100 mls/hr Insulin Aspart (Novolog Insulin Sliding Scale) 0 units SUBQ Q6HR YESSICA PRN Reason: Protocol Stop: 07/14/17 00:00 Last Admin: 05/15/17 17:09 Dose: Not Given Insulin Detemir (Levemir Insulin) 14 units SUBQ DAILY YESSICA PRN Reason: Protocol Stop: 07/15/17 08:59 Isosorbide Dinitrate (Isordil) 10 mg GT TID [facility] Stop: 07/14/17 08:59 Last Admin: 05/15/17 14:02 Dose: 10 mg Lactulose (Cephulac) 20 gm PO TID [facility] Stop: 07/14/17 08:59 Last Admin: 05/15/17 14:02 Dose: 20 gm Levetiracetam (Keppra) 250 mg NG BID [facility] Stop: 07/14/17 08:59 Last Admin: 05/15/17 16:23 Dose: 250 mg Metoprolol Tartrate (Lopressor) 37.5 mg GT BID [facility] Stop: 07/14/17 00:14 Last Admin: 05/15/17 16:22 Dose: 37.5 mg Miscellaneous (Vte Chemical Prophylaxis Screen/ Admission) 1 ea MC PRN PRN PRN Reason: PROTOCOL Stop: 07/14/17 09:25 Morphine Sulfate (Morphine) 2 mg IVP Q3H PRN PRN Reason: PAIN Stop: 07/13/17 19:46 Last Admin: 05/14/17 21:16 Dose: 2 mg Mupirocin (Bactroban Oint) 1 appl TP BID [facility] Stop: 07/14/17 16:59 Last Admin: 05/15/17 16:24 Dose: 1 appl Pantoprazole Sodium (Protonix) 40 mg GT DAILY [facility] Stop: 07/14/17 08:59 Last Admin: 05/15/17 08:36 Dose: 40 mg Rifaximin (Xifaxan) 550 mg GT BID [facility]ESS[facility] Stop: 07/14/17 08:59 Last Admin: 05/15/17 16:23 Dose: 550 mg Kidney function increased with a BUN 75 and creatinine of 3.4 Sodium down to 132 White count up to 17.5 on Zosyn Chest x-ray still w/ b/l infiltrates, right effusion, and elevated BNP of 739 Reviewed his meds Follow-up electrolytes start Maintenance Lasix w/ albumin infusion to improve intravascular volume currently on PPN @ 40 ml /hr prognosis poor Hgb/Hct up to 07/29.3 schedule for HD in am since still has chf on cxr & elevated BNP Lab - Result Diagrams 05/24/17 04:49 05/24/17 04:49 addendum: Poor response to diuretics, w/ worsening CHF, BNP level developed resp failure, required intubation worsening cardio-renal syndrome discussed w/ grandson Pedro, about poor prognosis but still want to proceed w/ dialysis Nutritional Asmnt/Malnutr-PDOC - Dietary Evaluation Malnutrition Findings (Please click <Entered> for more info): Nutritional Asmnt/Malnutrition Start: 05/15/17 13: 56 Text: Status: Complete Freq: Document 05/15/17 13:56 GSUN (Rec: 05/15/17 14:18 GSUN [id number]) Nutritional Asmnt/Malnutrition Patient General Information Nutritional Screening High Risk Screening Diagnosis PNA, NICK, icnreasing renal failure, CVA, CHF, DM Pertinent Medical Hx/Surgical Hx CVA, dementia, afib, CAD, HTN, dyslipidemia, epilepsy, GERD, aspiration PNA, DM, CKD, dehydration, C. diff, anemia D Subjective Information 86 year old male from SNF. Pt greeted RD. Pt is overall thin , moderate to severe wasting to chest, clavicles, extremities. Observed Glytrol running at 60ml/hr x20hrs during visit. Unable to obtain CBW due to bedscale not calibrated. Discussed with YVETTE Farooq regarding tube feeding recommendations. Current Diet Order/ Nutrition Support Glytrol at 60ml/hr x 20hrs, providing 1200kcal 54g protein Pertinent Medications Lipitor, Novolog, Levemir, Cephulac, Morphine, Protonix, Nacl 0.9% Pertinent Labs 05/13: potassium 5.3H, BUN 80H, creatinine 2.4H, glucose 103 05/15: potassium WNL, BUN 70H, creatinine 2.4H, glucose 239H, A1c 6.1H, phosphorus 5.4H Nutritional Hx/Data Height 1.68 m Height (Calculated Centimeters) 167.6 Current Weight (lbs) 65.771 kg Weight (Calculated Kilograms) 65.8 Weight (Calculated Grams) 59986.9 Altha Body Weight 142 Weight Status Approriate GI Symptoms Difficult in: Swallowing Cultural/Ethnic/[employer] [facility]: Glucerna 1.2 at 85ml/hr x 20hrs, providing 2040kcal, promote weight gain. Skin Integrity/Comment: Gee 12. Skin intact. Estimated Nutritional Goals Calories/Kcals/Kg CBW 145lb/65.9kg Kcals Calculated 1976-7kcal (30-35kcal/kg) Protein Calculated 46-92g (0.7-1.4g/kg, renal vs moderate to severe wasting) Fluid: ml Per MD (renal) Nutritional Problem 2. Problem Problem Impaired nutrient utilization related to Etiology NICK, hx CKD aeb Signs/Symptoms: "increasing renal failure," potaasum 5.3H on adm, BUN 70H, electronic gluer 2.4H, phosphorus 5.4H 1. Problem Problem Inadequate intake from enteral nutrition infusion related to Etiology estimated nutritional needs aeb Signs/Symptoms: providing to meet 61% lower end kcal needs Intervention/Recommendation Comments 1. Recommend Novasource Renal at 50ml/hr x 20hrs, providing 2000kcal and 91g protein. Current order Glytrol at 60ml/ hr x 20hrs is only providing 1200kcal, pt recieves 2040kcal at [facility]. Expected Outcomes/Goals Expected Outcomes/Goals 1. Pt to meet at least 100% of estimated nutritional needs on tube feeding with tolerance .
--- NOTE | 2017-05-24 15:14 | Operative Report ---
DATE OF SURGERY: 05/24/2017 PREOPERATIVE DIAGNOSES: 1. Acute renal failure. 2. Respiratory failure, on vent. POSTOPERATIVE DIAGNOSES: 1. Acute renal failure. 2. Respiratory failure, on vent. OPERATION DONE: 1. Placement of Ronald catheter, right subclavian vein under ultrasound guidance. 2. Removal of Ronald catheter, right femoral vein. INFORMED CONSENT: Discussed with ab who is a physician. PROCEDURE IN DETAIL: The right chest was prepped with ChloraPrep and draped in appropriate manner. The 1% lidocaine was used to infiltrate. The area identified on ultrasound. Incision was made and size 18 needle was used for the vein. The guidewire was inserted, the dilator and then the triple lumen catheter chest wall with 3-0 silk. Portable chest x-ray will be done. The right groin catheter was prepped with ChloraPrep at exit site. Suture was removed and the catheter was pulled out with pressure for 5 minutes. The patient tolerated procedure well. JOB# [id number]
[2017-05-24] MEDS: TPN 10%-70% CUSTOM IV SCH (16:32)
[2017-05-24] MEDS: Chlorhexidine Gluconate 0.12% 15mL Mouthwash MM SCH (19:52)
--- NOTE | 2017-05-24 19:53 | Infectious Disease Prog Note ---
Infectious Disease Subjective - Review of Systems Service Date: 05/24/17 Subjective: No new change. No fever. intubated orally, on vent support. Infectious Disease Objective - Results Result Diagrams: 05/24/17 04:49 05/24/17 04:49 Recent Labs: Laboratory Last Values WBC 17.5 Th/cmm (4.8-10.8) H D 05/24/17 04:49 RBC 3.14 Mil/cmm (3.80-5.80) L 05/24/17 04:49 Hgb 9.0 gm/dL (12.6-17.4) L 05/24/17 04:49 Hct 26.3 % (39.0-49.0) L D 05/24/17 04:49 MCV 83.7 fl (80-99) 05/24/17 04:49 MCH 28.7 pg (27.0-31.0) 05/24/17 04:49 MCHC Differential 34.3 pg (28.0-36.0) 05/24/17 04:49 RDW 16.0 % (11.5-20.0) 05/24/17 04:49 Plt Count 249 Th/cmm (150-400) D 05/24/17 04:49 MPV 8.6 fl 05/24/17 04:49 Neutrophils % [employer] 05/24/17 04:49 Band Neutrophils % 9 % (0-10) 05/24/17 04:49 Lymphocytes % [employer] 05/24/17 04:49 Monocytes % [employer] 05/24/17 04:49 Eosinophils % [employer] 05/24/17 04:49 Basophils % [employer] 05/24/17 04:49 Neutrophils (Manual) 76 % (40-80) 05/24/17 04:49 Lymphocytes 11 % (20-50) L 05/24/17 04:49 Monocytes 4 % (2-10) 05/24/17 04:49 Eosinophils 0 % (0-5) 05/24/17 04:49 Basophils 0 % (0-3) 05/24/17 04:49 Metamyelocytes 1 % (0-0) H 05/22/17 04:44 Toxic Granulation 1+ 05/23/17 04:48 Platelet Estimate ADEQUATE (NORMAL) 05/24/17 04:49 Platelet Morphology NORMAL (NORMAL) 05/24/17 04:49 Anisocytosis 1+ 05/22/17 04:44 RBC Morph Micro Appear NORMAL (NORMAL) 05/24/17 04:49 Eos Smear Source URINE 05/14/17 18:00 Eos Smear Total Cells FEW EOSINOPHILS SEEN (NONE SEEN) 05/14/17 18:00 PT 11.9 SECONDS (9.5-11.5) H 05/13/17 17:42 INR 1.13 (0.5-1.4) 05/13/17 17:42 PTT (Actin FS) 30.5 SECONDS (26.0-38.0) 05/15/17 12:30 Specimen Source Arterial 05/24/17 09:00 Sample Site Right Radial 05/24/17 09:00 pH 7.40 (7.35-7.45) 05/24/17 09:00 pCO2 40.0 mmHg (35.0-45.0) 05/24/17 09:00 pO2 66.0 mmHg (80.0-100.0) L 05/24/17 09:00 HCO3 24.8 mEq/L (20.0-26.0) 05/24/17 09:00 Base Excess 0.0 mEq/L (-3.0-3.0) 05/24/17 09:00 O2 Saturation 93.0 % (92.0-100.0) 05/24/17 09:00 Feliciano Test YES 05/24/17 09:00 Vent Rate 8 05/24/17 09:00 Inspired O2 40 05/24/17 09:00 Tidal Volume 500 05/24/17 09:00 PEEP 0 05/24/17 09:00 Pressure (ins/psv/peep) 15 05/24/17 09:00 Critical Value SH 05/24/17 09:00 Sodium 132 mEq/L (136-145) L 05/24/17 04:49 Potassium 4.7 mEq/L (3.5-5.1) 05/24/17 04:49 Chloride 101 mEq/L (98-107) 05/24/17 04:49 Carbon Dioxide 19.3 mEq/L (21.0-31.0) L 05/24/17 04:49 Anion Gap 16.4 (7.0-16.0) H 05/24/17 04:49 BUN 75 mg/dL (7-25) H 05/24/17 04:49 Creatinine 3.4 mg/dL (0.7-1.3) H 05/24/17 04:49 Est GFR ( Amer) TNP 05/24/17 04:49 Est GFR (Non-Af Amer) TNP 05/24/17 04:49 BUN/Creatinine Ratio 22.1 05/24/17 04:49 Glucose 210 mg/dL (70-105) H 05/24/17 04:49 POC Glucose 213 MG/DL (70 - 105) H 05/24/17 18:00 Hemoglobin A1c % 6.1 % (4.0-6.0) H 05/15/17 06:30 Plasma/Ser Osmolality 301 mOsmol/kg (280-301) 05/14/17 18:20 Whole Bld Lactic Acid 1.58 mmol/L (0.60-1.99) 05/13/17 17:42 Uric Acid 7.7 mg/dL (4.4-7.6) H 05/15/17 06:30 Calcium 9.3 mg/dL (8.6-10.3) 05/24/17 04:49 Phosphorus 5.1 mg/dL (2.5-5.0) H 05/24/17 04:49 Magnesium 2.0 mg/dL (1.9-2.7) 05/24/17 04:49 Total Bilirubin 0.6 mg/dL (0.3-1.0) 05/24/17 04:49 Direct Bilirubin 0.09 mg/dL (0.0-0.2) 05/19/17 04:50 AST 15 U/L (13-39) 05/24/17 04:49 ALT 4 U/L (7-52) L 05/24/17 04:49 Alkaline Phosphatase 82 U/L (34-104) 05/24/17 04:49 Ammonia 65 umol/L (16-53) H 05/19/17 04:50 Creatine Kinase 35 U/L (30-223) 05/16/17 23:06 Troponin I 0.02 ng/mL (0.01-0.05) 05/16/17 23:06 B-Natriuretic Peptide 739.0 pg/mL (5.0-100.0) H 05/23/17 04:48 Total Protein 6.9 gm/dL (6.0-8.3) 05/24/17 04:49 Albumin 3.4 gm/dL (4.2-5.5) L 05/24/17 04:49 Globulin 3.5 gm/dL 05/24/17 04:49 Albumin/Globulin Ratio 1.0 (1.0-1.8) 05/24/17 04:49 Prealbumin 14 mg/dL (9-32) 05/18/17 07:33 Triglycerides 47 mg/dL (<150) 05/24/17 04:49 Cholesterol 55 mg/dL (<200) 05/24/17 04:49 TSH 2.74 uIU/ml (0.34-5.60) 05/15/17 06:30 Urine Source CATH 05/13/17 19:50 Urine Color YELLOW 05/13/17 19:50 Urine Clarity CLOUDY (CLEAR) 05/13/17 19:50 Urine pH 6.0 05/13/17 19:50 Ur Specific [place] 1.015 (1.005-1.030) 05/13/17 19:50 Urine Protein 100 mg/dL (NEGATIVE) H 05/13/17 19:50 Urine Glucose (UA) NEGATIVE mg/dL (NEGATIVE) 05/13/17 19:50 Urine Ketones NEGATIVE mg/dL (NEGATIVE) 05/13/17 19:50 Urine Blood LARGE (NEGATIVE) H 05/13/17 19:50 Urine Nitrate NEGATIVE (NEGATIVE) 05/13/17 19:50 Urine Bilirubin NEGATIVE (NEGATIVE) 05/13/17 19:50 Urine Urobilinogen 0.2 E.U./dL (0.2 - 1.0) 05/13/17 19:50 Ur Leukocyte Esterase LARGE (NEGATIVE) H 05/13/17 19:50 Urine RBC 50-100 /hpf (0-5) H 05/13/17 19:50 Urine WBC >100 /hpf (0-5) H 05/13/17 19:50 Ur Epithelial Cells NONE SEEN /lpf (FEW) 05/13/17 19:50 Urine Bacteria NONE SEEN /hpf (NONE SEEN) 05/13/17 19:50 Ur Random Sodium 30 mmol/L 05/14/17 18:00 Urine Creatinine 36.4 mg/dl (Not Estab.) 05/14/17 18:00 Urine Microalbumin 363.5 ug/mL (Not Estab.) 05/14/17 18:00 Microalb/Creat Ratio 998.6 mg/g creat (0.0-30.0) H 05/14/17 18:00 Random Vancomycin 19.1 ug/mL (5.0-40.0) 05/19/17 04:50 Hepatitis A IgM Ab Negative (Negative) 05/21/17 04:46 Hep Bs Antigen Negative (Negative) 05/21/17 04:46 Hep B Core IgM Ab Negative (Negative) 05/21/17 04:46 Hepatitis C Antibody 0.1 s/co ratio (0.0-0.9) 05/21/17 04:46 Blood Type B POSITIVE 05/21/17 10:19 Antibody Screen NEGATIVE 05/21/17 10:19 Crossmatch See Detail 05/21/17 10:19 - Physical Exam Vitals and I&O: Vital Signs Temp 97.8 F 05/24/17 19:00 Pulse 81 05/24/17 19:20 Resp 12 05/24/17 19:00 BP 138/83 05/24/17 19:00 Pulse Ox 100 05/24/17 19:20 Intake & Output 05/24/17 05/24/17 05/25/17 06:59 18:59 06:59 Intake Total 630 1838 100 Output Total 30 45 Balance 600 1793 100 Weight (lbs) 62.596 kg 68.237 kg Intake: Intake, IV Amount 150 1118 100 Fluconazole 100mg/50mL 50 100 mg In 50 ml @ 50 mls/ hr IV Q24HR YESSICA Rx#: [id number] Multivitamin Inj 5 ml In 1018 Dextrose 70% 242 ml In Amino Acids 15% 627 ml In Water, Sterile 945 ml @ 40 mls/hr IV .Q24H YESSICA Rx #:[id number] Tigecycline 50 mg In 100 100 100 Sodium Chloride 0.9% 100 ml @ 100 mls/hr IV Q12H YESSICA Rx#:[id number] TPN/PPN 480 520 Other 200 Output: Urine 30 45 Other: # Bowel Movements 0 Active Medications: Current Medications Acetaminophen (Tylenol) 650 mg PO Q4HR PRN PRN Reason: Pain Or Fever above 101 Stop: 07/14/17 15:15 Last Admin: 05/23/17 15:07 Dose: 650 mg Albuterol/Ipratropium (Duoneb Neb) 3 ml HHN Q4HRT [facility] Stop: 07/19/17 14:59 Last Admin: 05/24/17 19:18 Dose: 3 ml Atorvastatin Calcium (Lipitor) 10 mg GT HS YESSICA PRN Reason: Protocol Stop: 07/14/17 20:59 Last Admin: 05/23/17 20:49 Dose: 10 mg Budesonide (Pulmicort) 1 mg HHN BIDRT [facility] Stop: 07/19/17 18:59 Last Admin: 05/24/17 19:19 Dose: 1 mg Carbidopa/Levodopa (Sinemet 25mg-100 Mg) 1 tab PO TID [facility] Stop: 07/14/17 08:59 Last Admin: 05/24/17 13:59 Dose: 1 tab Chlorhexidine Gluconate (Peridex) 15 ml MM 0800,1999 [facility] Stop: 07/23/17 19:59 Dextrose (D50w) 50 ml IVP PRN PRN; Protocol PRN Reason: HYPOGLYCEMIA Stop: 07/20/17 00:54 Last Admin: 05/22/17 23:34 Dose: 50 ml Diltiazem HCl (Cardizem) 10 mg IVP Q6HR PRN PRN Reason: HR >130 Stop: 07/22/17 17:09 Last Admin: 05/24/17 04:21 Dose: 10 mg Furosemide (Lasix) 40 mg IVP DAILY [facility] Stop: 07/18/17 08:59 Last Admin: 05/24/17 09:40 Dose: 40 mg Heparin Sodium (Porcine) (Heparin) 5,000 units SUBQ Q8HR [facility] Stop: 07/22/17 20:59 Last Admin: 05/24/17 13:57 Dose: 5,000 units Norepinephrine Bitartrate 8 mg (/ Dextrose) 258 mls @ 0 mls/hr IV TITR PRN; Protocol; Titrate PRN Reason: BP MAINTENANCE (PER PROTOCOL) Stop: 07/19/17 12:29 Last Admin: 05/21/17 01:06 Dose: 10 mcg/min, 19.35 mls/hr Phenylephrine HCl 10 mg/ (Sodium Chloride) 250 mls @ 0 mls/hr IV TITR YESSICA; Per Protocol PRN Reason: Protocol Stop: 07/19/17 12:59 Tigecycline 50 mg/ Sodium (Chloride) 100 mls @ 100 mls/hr IV Q12H YESSICA Stop: 07/21/17 18:59 Last Infusion: 05/24/17 19:10 Dose: Infused Fluconazole (Diflucan) 100 mg in 50 mls @ 50 mls/hr IV Q24HR YESSICA Stop: 07/21/17 04:59 Last Infusion: 05/24/17 04:56 Dose: Infused Multivitamins/Minerals 5 ml/Dextrose/ Amino Acids/Electrolytes/ Sterile Water 1 ,819 mls @ 40 mls/hr IV .Q24H YESSICA Stop: 07/22/17 15:59 Last Admin: 05/24/17 16:32 Dose: 40 mls/hr Albumin Human (Albuminar 25%) 25 gm in 100 mls @ 50 mls/hr IV X1 ONE Stop: 05/25/17 16:36 Albumin Human (Albuminar 25%) 25 gm in 100 mls @ 50 mls/hr IV X1 ONE Stop: 05/25/17 16:37 Insulin Aspart (Novolog Insulin Sliding Scale) 0 units SUBQ Q6HR YESSICA PRN Reason: Protocol Stop: 07/14/17 00:00 Last Admin: 05/24/17 18:02 Dose: 2 units Ipratropium [place] (Atrovent Neb 0.5mg/2.5ml) 0.5 mg HHN Q4HRT YESSICA Stop: 07/17/17 14:59 Last Admin: 05/24/17 03:19 Dose: 0.5 mg Isosorbide Dinitrate (Isordil) 10 mg GT TID YESSICA Stop: 07/14/17 08:59 Last Admin: 05/24/17 13:58 Dose: 10 mg Lactobacillus Rhamnosus (Culturelle) 1 each PO DAILY [facility] Stop: 07/17/17 08:59 Last Admin: 05/24/17 10:09 Dose: 1 each Levetiracetam (Keppra) 250 mg NG BID [facility] Stop: 07/14/17 08:59 Last Admin: 05/24/17 16:33 Dose: 250 mg Lorazepam (Ativan) 1 mg IVP Q4H PRN; Protocol PRN Reason: Agitation Stop: 07/19/17 09:02 Last Admin: 05/24/17 13:50 Dose: 1 mg Metoclopramide HCl (Reglan) 5 mg IVP TID YESSICA Stop: 07/20/17 20:59 Last Admin: 05/24/17 13:54 Dose: 5 mg Metoprolol Tartrate (Lopressor) 50 mg GT Q8H YESSICA Stop: 07/18/17 08:59 Last Admin: 05/24/17 16:35 Dose: 50 mg Miscellaneous (Vte Chemical Prophylaxis Screen/ Admission) 1 [facility] PRN PRN PRN Reason: PROTOCOL Stop: 07/14/17 09:25 Miscellaneous (Clinical Monitoring) 1 ea [facility] DAILY PRN PRN Reason: RENAL Stop: 07/15/17 12:32 Miscellaneous (Probiotic Screen) 1 [facility] PRN PRN PRN Reason: PROTOCOL Stop: 07/16/17 09:33 Miscellaneous (Tpn Per Pharmacy) 1 [facility] PRN PRN PRN Reason: PROTOCOL Stop: 07/24/17 15:59 Mupirocin (Bactroban Oint) 1 appl TP BID YESSICA Stop: 07/14/17 16:59 Last Admin: 05/24/17 16:35 Dose: 1 appl Pantoprazole Sodium (Protonix) 40 mg GT DAILY YESSICA Stop: 07/14/17 08:59 Last Admin: 05/24/17 09:30 Dose: 40 mg General: no acute distress, cachectic HEENT: atraumatic, normocephalic, PERRLA, EOMI, moist mucous membrane Neck: supple, lymphadenopathy, no thyromegaly Cardiovascular: S1S2, no regular Lungs: clear to auscultation bilaterally, clear to percussion Abdomen: soft, no tender Extremities: no cyanosis, no clubbing Neurological: no awake - Procedures Procedures: Procedures Procedure Code Date INSERT EMERGENCY AIRWAY 16547 05/13/17 INSERT TUNNELED CV CATH [id number] 05/13/17 INSERTION OF ENDOTRACHEAL AIRWAY INTO TRACHEA, VIA OPENING [id number] 05/13/17 INSERTION OF INFUSION DEV INTO R FEMOR VEIN, PERC APPROACH [id number] 05/13/17 RESPIRATORY VENTILATION, LESS THAN 24 CONSECUTIVE HOURS [id number] 05/13/17 VENT MGMT INPAT IN DAY 08425 05/13/17 Infectious Disease Assmt/Plan - Problem List Patient Problems: All Active Problems COUGH AND CONGESTION (Acute) - Assessment Assessment: 1. Pneuimonia.? Aspiration. 2. NICK. 3. CVA. 4. CHF. 5. CKD4. NICK mild rise in creatinine. 6. Afib with rapid ventricular response. Plan: Continue tygacil D4/10.. Nutritional Asmnt/Malnutr-PDOC - Dietary Evaluation Malnutrition Findings (Please click <Entered> for more info): Nutritional Asmnt/Malnutrition Start: 05/15/17 13: 56 Text: Status: Complete Freq: Document 05/15/17 13:56 GSUN (Rec: 05/15/17 14:18 GSUN [id number]) Nutritional Asmnt/Malnutrition Patient General Information Nutritional Screening High Risk Screening Diagnosis PNA, NICK, icnreasing renal failure, CVA, CHF, DM Pertinent Medical Hx/Surgical Hx CVA, dementia, afib, CAD, HTN, dyslipidemia, epilepsy, GERD, aspiration PNA, DM, CKD, dehydration, C. diff, anemia D Subjective Information 86 year old male from SNF. Pt greeted RD. Pt is overall thin , moderate to severe wasting to chest, clavicles, extremities. Observed Glytrol running at 60ml/hr x20hrs during visit. Unable to obtain CBW due to bedscale not calibrated. Discussed with YVETTE Farooq regarding tube feeding recommendations. Current Diet Order/ Nutrition Support Glytrol at 60ml/hr x 20hrs, providing 1200kcal 54g protein Pertinent Medications Lipitor, Novolog, Levemir, Cephulac, Morphine, Protonix, Nacl 0.9% Pertinent Labs 05/13: potassium 5.3H, BUN 80H, creatinine 2.4H, glucose 103 05/15: potassium WNL, BUN 70H, creatinine 2.4H, glucose 239H, A1c 6.1H, phosphorus 5.4H Nutritional Hx/Data Height 1.68 m Height (Calculated Centimeters) 167.6 Current Weight (lbs) 65.771 kg Weight (Calculated Kilograms) 65.8 Weight (Calculated Grams) 01686.9 [place] Body Weight 142 Weight Status Approriate GI Symptoms Difficult in: Swallowing Cultural/Ethnic/[employer] [place] [facility]: Glucerna 1.2 at 85ml/hr x 20hrs, providing 2040kcal, promote weight gain. Skin Integrity/Comment: Gee 12. Skin intact. Estimated Nutritional Goals Calories/Kcals/Kg CBW 145lb/65.9kg Kcals Calculated 1976-2306kcal (30-35kcal/kg) Protein Calculated 46-92g (0.7-1.4g/kg, renal vs moderate to severe wasting) Fluid: ml Per MD (renal) Nutritional Problem 2. Problem Problem Impaired nutrient utilization related to Etiology NICK, hx CKD aeb Signs/Symptoms: "increasing renal failure," potaasum 5.3H on adm, BUN 70H, financial agent 2.4H, phosphorus 5.4H 1. Problem Problem Inadequate intake from enteral nutrition infusion related to Etiology estimated nutritional needs aeb Signs/Symptoms: providing to meet 61% lower end kcal needs Intervention/Recommendation Comments 1. Recommend Novasource Renal at 50ml/hr x 20hrs, providing 2000kcal and 91g protein. Current order Glytrol at 60ml/ hr x 20hrs is only providing 1200kcal, pt recieves 2040kcal at [facility]. Expected Outcomes/Goals Expected Outcomes/Goals 1. Pt to meet at least 100% of estimated nutritional needs on tube feeding with tolerance .
--- NOTE | 2017-05-24 19:54 | Progress Notes ---
DATE: 05/24/2017 PROBLEM LIST: 1. Status post CPR. 2. Respiratory failure. 3. Congestive heart failure. 4. Probably vent-associated pneumonia bilaterally. 5. History of previous Alzheimer. 6. Dysphagia, has a G-tube with acute renal failure. SYMPTOMS: None. The patient is not responding today, still on a ventilator. No respiratory distress, etc. PHYSICAL EXAMINATION: VITAL SIGNS: The patient is afebrile, pulse is in 90s, blood pressure 128/79 and saturation 100% on 40%. NECK: Veins not visualized. CHEST: Shows scattered rhonchi with diminished air entry. HEART: Regular. ABDOMEN: Soft, nontender. LABORATORY DATA: The patient's white count is 17,000, hemoglobin 9 g. ABG shows pO2 of 66 on 40% with SIMV of 8. Electrolytes shows potassium 4.7, creatinine is 3.1. Chest x-ray shows slightly worsening of secondary pneumonitis. PLANS AND SUGGESTIONS: We will go ahead and push in ET tube. We will get a culture and expand antibiotic. I will discuss with ID as well and go from there. JOB# [id number]
[2017-05-24] MEDS: Atorvastatin Calcium 10 MG TAB GT SCH (20:59)
[2017-05-25] MEDS: INSULIN ASPART SLIDING SCALE 100 UNITS/ML UNIT SUBQ SCH ×4 (00:06→18:09)
[2017-05-25] MEDS: Albuterol/Ipratropium Neb 3 ML AERS HHN SCH ×6 (04:00→22:47)
[2017-05-25] MEDS: Fluconazole 100mg/50mL 100 MG/50 ML BOTTLE IV SCH (04:55)
[2017-05-25 05:29] LABS: HEMATOCRIT 25.8 % (39.0-49.0); HEMOGLOBIN 8.4 gm/dL (12.6-17.4); MEAN CELL VOLUME 85.6 fl (80-99); MEAN CORPUSCULAR HEMOGLOBIN 27.9 pg (27.0-31.0); MEAN CORPUSCULAR HGB CONC 32.6 pg (28.0-36.0); MEAN PLATELET VOLUME 8.4 fl; PLATELET COUNT 215 Th/cmm (150-400); RED BLOOD COUNT 3.01 Mil/cmm (3.80-5.80); RED CELL DISTRIBUTION WIDTH 15.7 % (11.5-20.0)
[2017-05-25 05:42] LABS: WHITE BLOOD COUNT 13.8 Th/cmm (4.8-10.8)
[2017-05-25 05:51] LABS: ALB/GLOB RATIO 0.9 (1.0-1.8); ALKALINE PHOSPHATASE 76 U/L (34-104); ANION GAP 16.1 (7.0-16.0); BILIRUBIN,TOTAL 0.6 mg/dL (0.3-1.0); BUN/CREATININE RATIO 25.3; CALCIUM SERUM 8.8 mg/dL (8.6-10.3); CARBON DIOXIDE 19.4 mEq/L (21.0-31.0); CHLORIDE 102 mEq/L (98-107); CREATININE - SERUM 3.2 mg/dL (0.7-1.3); GLUCOSE 246 mg/dL (70-105); PHOSPHOROUS 5.5 mg/dL (2.5-5.0); POTASSIUM SERUM 4.5 mEq/L (3.5-5.1); SGOT 16 U/L (13-39); SGPT/ALT < 3 U/L (7-52); SODIUM SERUM 133 mEq/L (136-145)
[2017-05-25 06:09] LABS: BUN - UREA NITROGEN 81 mg/dL (7-25)
[2017-05-25 06:37] LABS: BAND NEUTROPHILE 2 % (0-10); NEUTROPHILS 85 % (40-80); PLATELET ESTIMATE ADEQUATE (NORMAL); TOTAL CELLS COUNTED 100
[2017-05-25] MEDS: Budesonide 0.5 Mg/2 mL Ud HHN SCH ×2 (07:37→19:16)
[2017-05-25] MEDS: Pantoprazole 40 mg/Packet GT SCH (08:25)
[2017-05-25] MEDS: Lactobacillus Rhamnosus 10 Billion CFU Capsule PO SCH (08:25)
[2017-05-25] MEDS: Levetiracetam 500 mg/5mL 5mL UDC NG SCH ×2 (08:25→17:06)
[2017-05-25] MEDS: Metoclopramide 5 mg/mL 2mL Vial IVP SCH ×3 (08:26→21:11)
--- NOTE | 2017-05-25 08:45 | General Progress Note ---
Subjective - Review of Systems Service Date: 05/24/17 Subjective: Patient seen and examined sleeping on vent no new concern reported Objective - Results Result Diagrams: 05/25/17 05:04 05/25/17 05:04 Recent Labs: Laboratory Last Values WBC 13.8 Th/cmm (4.8-10.8) H D 05/25/17 05:04 RBC 3.01 Mil/cmm (3.80-5.80) L 05/25/17 05:04 Hgb 8.4 gm/dL (12.6-17.4) L 05/25/17 05:04 Hct 25.8 % (39.0-49.0) L 05/25/17 05:04 MCV 85.6 fl (80-99) 05/25/17 05:04 MCH 27.9 pg (27.0-31.0) 05/25/17 05:04 MCHC Differential 32.6 pg (28.0-36.0) 05/25/17 05:04 RDW 15.7 % (11.5-20.0) 05/25/17 05:04 Plt Count 215 Th/cmm (150-400) 05/25/17 05:04 MPV 8.4 fl 05/25/17 05:04 Neutrophils % C D STILL OPERATOR 05/24/17 04:49 Band Neutrophils % 2 % (0-10) 05/25/17 05:04 Lymphocytes % C D STILL OPERATOR 05/24/17 04:49 Monocytes % C D STILL OPERATOR 05/24/17 04:49 Eosinophils % C D STILL OPERATOR 05/24/17 04:49 Basophils % C D STILL OPERATOR 05/24/17 04:49 Neutrophils (Manual) 85 % (40-80) H 05/25/17 05:04 Lymphocytes 6 % (20-50) L 05/25/17 05:04 Monocytes 7 % (2-10) 05/25/17 05:04 Eosinophils 0 % (0-5) 05/24/17 04:49 Basophils 0 % (0-3) 05/24/17 04:49 Metamyelocytes 1 % (0-0) H 05/22/17 04:44 Toxic Granulation 1+ 05/23/17 04:48 Platelet Estimate ADEQUATE (NORMAL) 05/25/17 05:04 Platelet Morphology NORMAL (NORMAL) 05/24/17 04:49 Anisocytosis 1+ 05/22/17 04:44 RBC Morph Micro Appear NORMAL (NORMAL) 05/24/17 04:49 Eos Smear Source URINE 05/14/17 18:00 Eos Smear Total Cells FEW EOSINOPHILS SEEN (NONE SEEN) 05/14/17 18:00 PT 11.9 SECONDS (9.5-11.5) H 05/13/17 17:42 INR 1.13 (0.5-1.4) 05/13/17 17:42 PTT (Actin FS) 30.5 SECONDS (26.0-38.0) 05/15/17 12:30 Specimen Source Arterial 05/24/17 09:00 Sample Site Right Radial 05/24/17 09:00 pH 7.40 (7.35-7.45) 05/24/17 09:00 pCO2 40.0 mmHg (35.0-45.0) 05/24/17 09:00 pO2 66.0 mmHg (80.0-100.0) L 05/24/17 09:00 HCO3 24.8 mEq/L (20.0-26.0) 05/24/17 09:00 Base Excess 0.0 mEq/L (-3.0-3.0) 05/24/17 09:00 O2 Saturation 93.0 % (92.0-100.0) 05/24/17 09:00 Fel[place]o Test YES 05/24/17 09:00 Vent Rate 8 05/24/17 09:00 Inspired O2 40 05/24/17 09:00 Tidal Volume 500 05/24/17 09:00 PEEP 0 05/24/17 09:00 Pressure (ins/psv/peep) 15 05/24/17 09:00 Critical Value SH 05/24/17 09:00 Sodium 133 mEq/L (136-145) L 05/25/17 05:04 Potassium 4.5 mEq/L (3.5-5.1) 05/25/17 05:04 Chloride 102 mEq/L (98-107) 05/25/17 05:04 Carbon Dioxide 19.4 mEq/L (21.0-31.0) L 05/25/17 05:04 Anion Gap 16.1 (7.0-16.0) H 05/25/17 05:04 BUN 81 mg/dL (7-25) H* 05/25/17 05:04 Creatinine 3.2 mg/dL (0.7-1.3) H 05/25/17 05:04 Est GFR ( Amer) TNP 05/25/17 05:04 Est GFR (Non-Af Amer) TNP 05/25/17 05:04 BUN/Creatinine Ratio 25.3 05/25/17 05:04 Glucose 246 mg/dL (70-105) H 05/25/17 05:04 POC Glucose 236 MG/DL (70 - 105) H 05/25/17 06:07 Hemoglobin A1c % 6.1 % (4.0-6.0) H 05/15/17 06:30 Plasma/Ser Osmolality 301 mOsmol/kg (280-301) 05/14/17 18:20 Whole Bld Lactic Acid 1.58 mmol/L (0.60-1.99) 05/13/17 17:42 Uric Acid 7.7 mg/dL (4.4-7.6) H 05/15/17 06:30 Calcium 8.8 mg/dL (8.6-10.3) 05/25/17 05:04 Phosphorus 5.5 mg/dL (2.5-5.0) H 05/25/17 05:04 Magnesium 2.0 mg/dL (1.9-2.7) 05/25/17 05:04 Total Bilirubin 0.6 mg/dL (0.3-1.0) 05/25/17 05:04 Direct Bilirubin 0.09 mg/dL (0.0-0.2) 05/19/17 04:50 AST 16 U/L (13-39) 05/25/17 05:04 ALT < 3 U/L (7-52) L 05/25/17 05:04 Alkaline Phosphatase 76 U/L (34-104) 05/25/17 05:04 Ammonia 65 umol/L (16-53) H 05/19/17 04:50 Creatine Kinase 35 U/L (30-223) 05/16/17 23:06 Troponin I 0.02 ng/mL (0.01-0.05) 05/16/17 23:06 B-Natriuretic Peptide 739.0 pg/mL (5.0-100.0) H 05/23/17 04:48 Total Protein 5.8 gm/dL (6.0-8.3) L 05/25/17 05:04 Albumin 2.8 gm/dL (4.2-5.5) L 05/25/17 05:04 Globulin 3.0 gm/dL 05/25/17 05:04 Albumin/Globulin Ratio 0.9 (1.0-1.8) L 05/25/17 05:04 Prealbumin 14 mg/dL (9-32) 05/18/17 07:33 Triglycerides 47 mg/dL (<150) 05/24/17 04:49 Cholesterol 55 mg/dL (<200) 05/24/17 04:49 TSH 2.74 uIU/ml (0.34-5.60) 05/15/17 06:30 Urine Source CATH 05/13/17 19:50 Urine Color YELLOW 05/13/17 19:50 Urine Clarity CLOUDY (CLEAR) 05/13/17 19:50 Urine pH 6.0 05/13/17 19:50 Ur Specific [place] 1.015 (1.005-1.030) 05/13/17 19:50 Urine Protein 100 mg/dL (NEGATIVE) H 05/13/17 19:50 Urine Glucose (UA) NEGATIVE mg/dL (NEGATIVE) 05/13/17 19:50 Urine Ketones NEGATIVE mg/dL (NEGATIVE) 05/13/17 19:50 Urine Blood LARGE (NEGATIVE) H 05/13/17 19:50 Urine Nitrate NEGATIVE (NEGATIVE) 05/13/17 19:50 Urine Bilirubin NEGATIVE (NEGATIVE) 05/13/17 19:50 Urine Urobilinogen 0.2 E.U./dL (0.2 - 1.0) 05/13/17 19:50 Ur Leukocyte Esterase LARGE (NEGATIVE) H 05/13/17 19:50 Urine RBC 50-100 /hpf (0-5) H 05/13/17 19:50 Urine WBC >100 /hpf (0-5) H 05/13/17 19:50 Ur Epithelial Cells NONE SEEN /lpf (FEW) 05/13/17 19:50 Urine Bacteria NONE SEEN /hpf (NONE SEEN) 05/13/17 19:50 Ur Random Sodium 30 mmol/L 05/14/17 18:00 Urine Creatinine 36.4 mg/dl (Not Estab.) 05/14/17 18:00 Urine Microalbumin 363.5 ug/mL (Not Estab.) 05/14/17 18:00 Microalb/Creat Ratio 998.6 mg/g creat (0.0-30.0) H 05/14/17 18:00 Random Vancomycin 19.1 ug/mL (5.0-40.0) 05/19/17 04:50 Hepatitis A IgM Ab Negative (Negative) 05/21/17 04:46 Hep Bs Antigen Negative (Negative) 05/21/17 04:46 Hep B Core IgM Ab Negative (Negative) 05/21/17 04:46 Hepatitis C Antibody 0.1 s/co ratio (0.0-0.9) 05/21/17 04:46 Blood Type B POSITIVE 05/21/17 10:19 Antibody Screen NEGATIVE 05/21/17 10:19 Crossmatch See Detail 05/21/17 10:19 - Physical Exam Vitals and I&O: Vital Signs Temp 98.4 F 05/25/17 04:00 Pulse 77 05/25/17 08:24 Resp 14 05/25/17 06:49 BP 133/61 05/25/17 08:26 Pulse Ox 98 05/25/17 07:37 Intake & Output 05/24/17 05/25/17 05/25/17 18:59 06:59 18:59 Intake Total 1838 630 Output Total 45 75 Balance 1793 555 Weight (lbs) 68.237 kg 68.237 kg Intake: Intake, IV Amount 1118 150 Fluconazole 100mg/50mL 50 100 mg In 50 ml @ 50 mls/ hr IV Q24HR YESSICA Rx#: [id number] Multivitamin Inj 5 ml In 1018 Dextrose 70% 242 ml In Amino Acids 15% 627 ml In Water, Sterile 945 ml @ 40 mls/hr IV .Q24H YESSICA Rx #:[id number] Tigecycline 50 mg In 100 100 Sodium Chloride 0.9% 100 ml @ 100 mls/hr IV Q12H YESSICA Rx#:[id number] TPN/PPN 520 480 Other 200 Output: Urine 45 75 Other: # Bowel Movements 0 0 Active Medications: Current Medications Acetaminophen (Tylenol) 650 mg PO Q4HR PRN PRN Reason: Pain Or Fever above 101 Stop: 07/14/17 15:15 Last Admin: 05/23/17 15:07 Dose: 650 mg Albuterol/Ipratropium (Duoneb Neb) 3 ml HHN Q4HRT [facility] Stop: 07/19/17 14:59 Last Admin: 05/25/17 07:36 Dose: 3 ml Atorvastatin Calcium (Lipitor) 10 mg GT HS YESSICA PRN Reason: Protocol Stop: 07/14/17 20:59 Last Admin: 05/24/17 20:59 Dose: 10 mg Budesonide (Pulmicort) 1 mg HHN BIDRT YESSICA Stop: 07/19/17 18:59 Last Admin: 05/25/17 07:37 Dose: 1 mg Carbidopa/Levodopa (Sinemet 25mg-100 Mg) 1 tab PO TID YESSICA Stop: 07/14/17 08:59 Last Admin: 05/25/17 08:23 Dose: 1 tab Chlorhexidine Gluconate (Peridex) 15 ml MM 0800,2000 [facility] Stop: 07/23/17 19:59 Last Admin: 05/24/17 19:52 Dose: 15 ml Dextrose (D50w) 50 ml IVP PRN PRN; Protocol PRN Reason: HYPOGLYCEMIA Stop: 07/20/17 00:54 Last Admin: 05/22/17 23:34 Dose: 50 ml Diltiazem HCl (Cardizem) 10 mg IVP Q6HR PRN PRN Reason: HR >130 Stop: 07/22/17 17:09 Last Admin: 05/24/17 04:21 Dose: 10 mg Furosemide (Lasix) 40 mg IVP DAILY [facility] Stop: 07/18/17 08:59 Last Admin: 05/25/17 08:26 Dose: 40 mg Heparin Sodium (Porcine) (Heparin) 5,000 units SUBQ Q8HR YESSICA Stop: 07/22/17 20:59 Last Admin: 05/25/17 04:57 Dose: 5,000 units Norepinephrine Bitartrate 8 mg (/ Dextrose) 258 mls @ 0 mls/hr IV TITR PRN; Protocol; Titrate PRN Reason: BP MAINTENANCE (PER PROTOCOL) Stop: 07/19/17 12:29 Last Admin: 05/21/17 01:06 Dose: 10 mcg/min, 19.35 mls/hr Phenylephrine HCl 10 mg/ (Sodium Chloride) 250 mls @ 0 mls/hr IV TITR YESSICA; Per Protocol PRN Reason: Protocol Stop: 07/19/17 12:59 Tigecycline 50 mg/ Sodium (Chloride) 100 mls @ 100 mls/hr IV Q12H YESSICA Stop: 07/21/17 18:59 Last Admin: 05/25/17 06:37 Dose: 100 mls/hr Fluconazole (Diflucan) 100 mg in 50 mls @ 50 mls/hr IV Q24HR YESSICA Stop: 07/21/17 04:59 Last Infusion: 05/25/17 05:55 Dose: Infused Multivitamins/Minerals 5 ml/Dextrose/ Amino Acids/Electrolytes/ Sterile Water 1 ,819 mls @ 40 mls/hr IV .Q24H YESSICA Stop: 07/22/17 15:59 Last Admin: 05/24/17 16:32 Dose: 40 mls/hr Albumin Human (Albuminar 25%) 25 gm in 100 mls @ 50 mls/hr IV X1 ONE Stop: 05/25/17 16:36 Albumin Human (Albuminar 25%) 25 gm in 100 mls @ 50 mls/hr IV X1 ONE Stop: 05/25/17 16:37 Insulin Aspart (Novolog Insulin Sliding Scale) 0 units SUBQ Q6HR YESSICA PRN Reason: Protocol Stop: 07/14/17 00:00 Last Admin: 05/25/17 06:19 Dose: 2 units Ipratropium [place] (Atrovent Neb 0.5mg/2.5ml) 0.5 mg HHN Q4HRT YESSICA Stop: 07/17/17 14:59 Last Admin: 05/24/17 03:19 Dose: 0.5 mg Isosorbide Dinitrate (Isordil) 10 mg GT TID [facility] Stop: 07/14/17 08:59 Last Admin: 05/25/17 08:24 Dose: 10 mg Lactobacillus Rhamnosus (Culturelle) 1 each PO DAILY YESSICA Stop: 07/17/17 08:59 Last Admin: 05/25/17 08:25 Dose: 1 each Levetiracetam (Keppra) 250 mg NG BID YESSICA Stop: 07/14/17 08:59 Last Admin: 05/25/17 08:25 Dose: 250 mg Lorazepam (Ativan) 1 mg IVP Q4H PRN; Protocol PRN Reason: Agitation Stop: 07/19/17 09:02 Last Admin: 05/25/17 01:02 Dose: 1 mg Metoclopramide HCl (Reglan) 5 mg IVP TID [facility] Stop: 07/20/17 20:59 Last Admin: 05/25/17 08:26 Dose: 5 mg Metoprolol Tartrate (Lopressor) 50 mg GT Q8H YESSICA Stop: 07/18/17 08:59 Last Admin: 05/25/17 08:24 Dose: 50 mg Miscellaneous (Vte Chemical Prophylaxis Screen/ Admission) 1 [facility] PRN PRN PRN Reason: PROTOCOL Stop: 07/14/17 09:25 Miscellaneous (Clinical Monitoring) 1 [facility] DAILY PRN PRN Reason: RENAL Stop: 07/15/17 12:32 Miscellaneous (Probiotic Screen) 1 [facility] PRN PRN PRN Reason: PROTOCOL Stop: 07/16/17 09:33 Miscellaneous (Tpn Per Pharmacy) 1 [facility] PRN PRN PRN Reason: PROTOCOL Stop: 07/24/17 15:59 Mupirocin (Bactroban Oint) 1 appl TP BID [facility] Stop: 07/14/17 16:59 Last Admin: 05/24/17 16:35 Dose: 1 appl Pantoprazole Sodium (Protonix) 40 mg GT DAILY YESSICA Stop: 07/14/17 08:59 Last Admin: 05/25/17 08:25 Dose: 40 mg General: No acute distress, Moderate distress, Other (Altered), no Alert HEENT: Atraumatic, Mucous membr. moist/pink Neck: Supple, +2 carotid pulse wo bruit Cardiovascular: Regular rate, Normal S1, Normal S2, Other (afib with fluctuating heart rate) Lungs: Clear to auscultation (rales bilaterally), Other (bilateral rales ) Abdomen: Bowel sounds, Soft, no Distended Extremities: no Edema Neurological: Sensation intact Skin: no Rash Psych/Mental Status: Mood NL - Procedures Procedures: Procedures Procedure Code Date INSERT EMERGENCY AIRWAY 19963 05/13/17 INSERT TUNNELED CV CATH [id number] 05/13/17 INSERTION OF ENDOTRACHEAL AIRWAY INTO TRACHEA, VIA OPENING [id number] 05/13/17 INSERTION OF INFUSION DEV INTO R FEMOR VEIN, PERC APPROACH [id number] 05/13/17 RESPIRATORY VENTILATION, LESS THAN 24 CONSECUTIVE HOURS [id number] 05/13/17 VENT MGMT INPAT IN DAY 89538 05/13/17 Assessment/Plan - Problem List Patient Problems: All Active Problems COUGH AND CONGESTION (Acute) - Assessment Assessment: Current Active Problems Problem Status Onset COUGH AND CONGESTION Acute Diarrhea better Anemia Hypoglycemia better Acute respiratory failure on vent improving Renal failure improving on HD MDRO Pneumonia Afib RVR UTI CAD 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 HTN renal disease Seizure disorder - Plan Plan: DC lactulose Heparin sub Q Stool OB Cardizem iv prn Metoprolol Tygacil per ID rec HD per nephrology rec Continue vent support PPN started for nutritional support Off vasopressor Feeding on hold due to tolerance issue Plan of care discussed with nursing staff Plan of care discussed with nursing staff Nutritional Asmnt/Malnutr-PDOC - Dietary Evaluation Malnutrition Findings (Please click <Entered> for more info): Nutritional Asmnt/Malnutrition Start: 05/15/17 13: 56 Text: Status: Complete Freq: Document 05/15/17 13:56 GSUN (Rec: 05/15/17 14:18 GSUN [id number]) Nutritional Asmnt/Malnutrition Patient General Information Nutritional Screening High Risk Screening Diagnosis PNA, NICK, icnreasing renal failure, CVA, CHF, DM Pertinent Medical Hx/Surgical Hx CVA, dementia, afib, CAD, HTN, dyslipidemia, epilepsy, GERD, aspiration PNA, DM, CKD, dehydration, C. diff, anemia D Subjective Information 86 year old male from SNF. Pt greeted RD. Pt is overall thin , moderate to severe wasting to chest, clavicles, extremities. Observed Glytrol running at 60ml/hr x20hrs during visit. Unable to obtain CBW due to bedscale not calibrated. Discussed with YVETTE Farooq regarding tube feeding recommendations. Current Diet Order/ Nutrition Support Glytrol at 60ml/hr x 20hrs, providing 1200kcal 54g protein Pertinent Medications Lipitor, Novolog, Levemir, Cephulac, Morphine, Protonix, Nacl 0.9% Pertinent Labs 05/13: potassium 5.3H, BUN 80H, creatinine 2.4H, glucose 103 05/15: potassium WNL, BUN 70H, creatinine 2.4H, glucose 239H, A1c 6.1H, phosphorus 5.4H Nutritional Hx/Data Height 1.68 m Height (Calculated Centimeters) 167.6 Current Weight (lbs) 65.771 kg Weight (Calculated Kilograms) 65.8 Weight (Calculated Grams) 13269.9 [place] Body Weight 142 Weight Status Approriate GI Symptoms Difficult in: Swallowing Cultural/Ethnic/Denominational Belief [facility]: Glucerna 1.2 at 85ml/hr x 20hrs, providing 2040kcal, promote weight gain. Skin Integrity/Comment: Gee 12. Skin intact. Estimated Nutritional Goals Calories/Kcals/Kg CBW 145lb/65.9kg Kcals Calculated 1976-7kcal (30-35kcal/kg) Protein Calculated 46-92g (0.7-1.4g/kg, renal vs moderate to severe wasting) Fluid: ml Per MD (renal) Nutritional Problem 2. Problem Problem Impaired nutrient utilization related to Etiology NICK, hx CKD aeb Signs/Symptoms: "increasing renal failure," potaasum 5.3H on adm, BUN 70H, slurry blender 2.4H, phosphorus 5.4H 1. Problem Problem Inadequate intake from enteral nutrition infusion related to Etiology estimated nutritional needs aeb Signs/Symptoms: providing to meet 61% lower end kcal needs Intervention/Recommendation Comments 1. Recommend Novasource Renal at 50ml/hr x 20hrs, providing 2000kcal and 91g protein. Current order Glytrol at 60ml/ hr x 20hrs is only providing 1200kcal, pt recieves 2040kcal at [facility]. Expected Outcomes/Goals Expected Outcomes/Goals 1. Pt to meet at least 100% of estimated nutritional needs on tube feeding with tolerance .
[2017-05-25] MEDS: Chlorhexidine Gluconate 0.12% 15mL Mouthwash MM SCH ×2 (09:05→20:30)
[2017-05-25 09:51] LABS: pH 7.18 (7.35-7.45)
[2017-05-25 09:52] LABS: ABG SOURCE Arterial; ALLEN TEST P; FIO2 40; HCO3 20.1 mEq/L (20.0-26.0); MECH RATE 8; MECH VT 23; PS 15
--- NOTE | 2017-05-25 10:09 | General Progress Note ---
Subjective - Review of Systems Service Date: 05/25/17 Subjective: sleeping, on vent, nonverbal Objective - Results Result Diagrams: 05/25/17 05:04 05/25/17 05:04 Recent Labs: Laboratory Last Values WBC 13.8 Th/cmm (4.8-10.8) H D 05/25/17 05:04 RBC 3.01 Mil/cmm (3.80-5.80) L 05/25/17 05:04 Hgb 8.4 gm/dL (12.6-17.4) L 05/25/17 05:04 Hct 25.8 % (39.0-49.0) L 05/25/17 05:04 MCV 85.6 fl (80-99) 05/25/17 05:04 MCH 27.9 pg (27.0-31.0) 05/25/17 05:04 MCHC Differential 32.6 pg (28.0-36.0) 05/25/17 05:04 RDW 15.7 % (11.5-20.0) 05/25/17 05:04 Plt Count 215 Th/cmm (150-400) 05/25/17 05:04 MPV 8.4 fl 05/25/17 05:04 Neutrophils % SANITIZER 05/24/17 04:49 Band Neutrophils % 2 % (0-10) 05/25/17 05:04 Lymphocytes % SANITIZER 05/24/17 04:49 Monocytes % SANITIZER 05/24/17 04:49 Eosinophils % SANITIZER 05/24/17 04:49 Basophils % SANITIZER 05/24/17 04:49 Neutrophils (Manual) 85 % (40-80) H 05/25/17 05:04 Lymphocytes 6 % (20-50) L 05/25/17 05:04 Monocytes 7 % (2-10) 05/25/17 05:04 Eosinophils 0 % (0-5) 05/24/17 04:49 Basophils 0 % (0-3) 05/24/17 04:49 Metamyelocytes 1 % (0-0) H 05/22/17 04:44 Toxic Granulation 1+ 05/23/17 04:48 Platelet Estimate ADEQUATE (NORMAL) 05/25/17 05:04 Platelet Morphology NORMAL (NORMAL) 05/24/17 04:49 Anisocytosis 1+ 05/22/17 04:44 RBC Morph Micro Appear NORMAL (NORMAL) 05/24/17 04:49 Eos Smear Source URINE 05/14/17 18:00 Eos Smear Total Cells FEW EOSINOPHILS SEEN (NONE SEEN) 05/14/17 18:00 PT 11.9 SECONDS (9.5-11.5) H 05/13/17 17:42 INR 1.13 (0.5-1.4) 05/13/17 17:42 PTT (Actin FS) 30.5 SECONDS (26.0-38.0) 05/15/17 12:30 Specimen Source Arterial 05/25/17 09:31 Sample Site Right Radial 05/25/17 09:31 pH 7.18 (7.35-7.45) L* 05/25/17 09:31 pCO2 62.0 mmHg (35.0-45.0) H* 05/25/17 09:31 pO2 77.0 mmHg (80.0-100.0) L 05/25/17 09:31 HCO3 20.1 mEq/L (20.0-26.0) 05/25/17 09:31 Base Excess -6.0 mEq/L (-3.0-3.0) L 05/25/17 09:31 O2 Saturation 91.0 % (92.0-100.0) L 05/25/17 09:31 Feliciano Test P 05/25/17 09:31 Vent Rate 8 05/25/17 09:31 Inspired O2 40 05/25/17 09:31 Tidal Volume 23 05/25/17 09:31 PEEP 0 05/24/17 09:00 Pressure (ins/psv/peep) 15 05/25/17 09:31 Critical Value PING 05/25/17 09:31 Sodium 133 mEq/L (136-145) L 05/25/17 05:04 Potassium 4.5 mEq/L (3.5-5.1) 05/25/17 05:04 Chloride 102 mEq/L (98-107) 05/25/17 05:04 Carbon Dioxide 19.4 mEq/L (21.0-31.0) L 05/25/17 05:04 Anion Gap 16.1 (7.0-16.0) H 05/25/17 05:04 BUN 81 mg/dL (7-25) H* 05/25/17 05:04 Creatinine 3.2 mg/dL (0.7-1.3) H 05/25/17 05:04 Est GFR ( Amer) TNP 05/25/17 05:04 Est GFR (Non-Af Amer) TNP 05/25/17 05:04 BUN/Creatinine Ratio 25.3 05/25/17 05:04 Glucose 246 mg/dL (70-105) H 05/25/17 05:04 POC Glucose 236 MG/DL (70 - 105) H 05/25/17 06:07 Hemoglobin A1c % 6.1 % (4.0-6.0) H 05/15/17 06:30 Plasma/Ser Osmolality 301 mOsmol/kg (280-301) 05/14/17 18:20 Whole Bld Lactic Acid 1.58 mmol/L (0.60-1.99) 05/13/17 17:42 Uric Acid 7.7 mg/dL (4.4-7.6) H 05/15/17 06:30 Calcium 8.8 mg/dL (8.6-10.3) 05/25/17 05:04 Phosphorus 5.5 mg/dL (2.5-5.0) H 05/25/17 05:04 Magnesium 2.0 mg/dL (1.9-2.7) 05/25/17 05:04 Total Bilirubin 0.6 mg/dL (0.3-1.0) 05/25/17 05:04 Direct Bilirubin 0.09 mg/dL (0.0-0.2) 05/19/17 04:50 AST 16 U/L (13-39) 05/25/17 05:04 ALT < 3 U/L (7-52) L 05/25/17 05:04 Alkaline Phosphatase 76 U/L (34-104) 05/25/17 05:04 Ammonia 65 umol/L (16-53) H 05/19/17 04:50 Creatine Kinase 35 U/L (30-223) 05/16/17 23:06 Troponin I 0.02 ng/mL (0.01-0.05) 05/16/17 23:06 B-Natriuretic Peptide 739.0 pg/mL (5.0-100.0) H 05/23/17 04:48 Total Protein 5.8 gm/dL (6.0-8.3) L 05/25/17 05:04 Albumin 2.8 gm/dL (4.2-5.5) L 05/25/17 05:04 Globulin 3.0 gm/dL 05/25/17 05:04 Albumin/Globulin Ratio 0.9 (1.0-1.8) L 05/25/17 05:04 Prealbumin 9 mg/dL (9-32) 05/24/17 04:49 Triglycerides 47 mg/dL (<150) 05/24/17 04:49 Cholesterol 55 mg/dL (<200) 05/24/17 04:49 TSH 2.74 uIU/ml (0.34-5.60) 05/15/17 06:30 Urine Source CATH 05/13/17 19:50 Urine Color YELLOW 05/13/17 19:50 Urine Clarity CLOUDY (CLEAR) 05/13/17 19:50 Urine pH 6.0 05/13/17 19:50 Ur Specific [place] 1.015 (1.005-1.030) 05/13/17 19:50 Urine Protein 100 mg/dL (NEGATIVE) H 05/13/17 19:50 Urine Glucose (UA) NEGATIVE mg/dL (NEGATIVE) 05/13/17 19:50 Urine Ketones NEGATIVE mg/dL (NEGATIVE) 05/13/17 19:50 Urine Blood LARGE (NEGATIVE) H 05/13/17 19:50 Urine Nitrate NEGATIVE (NEGATIVE) 05/13/17 19:50 Urine Bilirubin NEGATIVE (NEGATIVE) 05/13/17 19:50 Urine Urobilinogen 0.2 E.U./dL (0.2 - 1.0) 05/13/17 19:50 Ur Leukocyte Esterase LARGE (NEGATIVE) H 05/13/17 19:50 Urine RBC 50-100 /hpf (0-5) H 05/13/17 19:50 Urine WBC >100 /hpf (0-5) H 05/13/17 19:50 Ur Epithelial Cells NONE SEEN /lpf (FEW) 05/13/17 19:50 Urine Bacteria NONE SEEN /hpf (NONE SEEN) 05/13/17 19:50 Ur Random Sodium 30 mmol/L 05/14/17 18:00 Urine Creatinine 36.4 mg/dl (Not Estab.) 05/14/17 18:00 Urine Microalbumin 363.5 ug/mL (Not Estab.) 05/14/17 18:00 Microalb/Creat Ratio 998.6 mg/g creat (0.0-30.0) H 05/14/17 18:00 Random Vancomycin 19.1 ug/mL (5.0-40.0) 05/19/17 04:50 Hepatitis A IgM Ab Negative (Negative) 05/21/17 04:46 Hep Bs Antigen Negative (Negative) 05/21/17 04:46 Hep B Core IgM Ab Negative (Negative) 05/21/17 04:46 Hepatitis C Antibody 0.1 s/co ratio (0.0-0.9) 05/21/17 04:46 Blood Type B POSITIVE 05/21/17 10:19 Antibody Screen NEGATIVE 05/21/17 10:19 Crossmatch See Detail 05/21/17 10:19 - Physical Exam Vitals and I&O: Vital Signs Temp 98.1 F 05/25/17 08:00 Pulse 97 05/25/17 09:16 Resp 12 05/25/17 09:00 BP 133/61 05/25/17 09:00 Pulse Ox 95 05/25/17 09:16 Intake & Output 05/24/17 05/25/17 05/25/17 18:59 06:59 18:59 Intake Total 1838 630 Output Total 45 75 Balance 1793 555 Weight (lbs) 68.237 kg 68.237 kg 67.086 kg Intake: Intake, IV Amount 1118 150 Fluconazole 100mg/50mL 50 100 mg In 50 ml @ 50 mls/ hr IV Q24HR YESSICA Rx#: [id number] Multivitamin Inj 5 ml In 1018 Dextrose 70% 242 ml In Amino Acids 15% 627 ml In Water, Sterile 945 ml @ 40 mls/hr IV .Q24H YESSICA Rx #:[id number] Tigecycline 50 mg In 100 100 Sodium Chloride 0.9% 100 ml @ 100 mls/hr IV Q12H YESSICA Rx#:[id number] TPN/PPN 520 480 Other 200 Output: Urine 45 75 Other: # Bowel Movements 0 0 Active Medications: Current Medications Acetaminophen (Tylenol) 650 mg PO Q4HR PRN PRN Reason: Pain Or Fever above 101 Stop: 07/14/17 15:15 Last Admin: 05/23/17 15:07 Dose: 650 mg Albuterol/Ipratropium (Duoneb Neb) 3 ml HHN Q4HRT [facility] Stop: 07/19/17 14:59 Last Admin: 05/25/17 07:36 Dose: 3 ml Atorvastatin Calcium (Lipitor) 10 mg GT HS YESSICA PRN Reason: Protocol Stop: 07/14/17 20:59 Last Admin: 05/24/17 20:59 Dose: 10 mg Budesonide (Pulmicort) 1 mg HHN BIDRT [facility] Stop: 07/19/17 18:59 Last Admin: 05/25/17 07:37 Dose: 1 mg Carbidopa/Levodopa (Sinemet 25mg-100 Mg) 1 tab PO TID [facility] Stop: 07/14/17 08:59 Last Admin: 05/25/17 08:23 Dose: 1 tab Chlorhexidine Gluconate (Peridex) 15 ml MM 0800,1999 [facility] Stop: 07/23/17 19:59 Last Admin: 05/25/17 09:05 Dose: 15 ml Dextrose (D50w) 50 ml IVP PRN PRN; Protocol PRN Reason: HYPOGLYCEMIA Stop: 07/20/17 00:54 Last Admin: 05/22/17 23:34 Dose: 50 ml Diltiazem HCl (Cardizem) 10 mg IVP Q6HR PRN PRN Reason: HR >130 Stop: 07/22/17 17:09 Last Admin: 05/24/17 04:21 Dose: 10 mg Furosemide (Lasix) 40 mg IVP DAILY [facility] Stop: 07/18/17 08:59 Last Admin: 05/25/17 08:26 Dose: 40 mg Heparin Sodium (Porcine) (Heparin) 5,000 units SUBQ Q8HR [facility] Stop: 07/22/17 20:59 Last Admin: 05/25/17 04:57 Dose: 5,000 units Norepinephrine Bitartrate 8 mg (/ Dextrose) 258 mls @ 0 mls/hr IV TITR PRN; Protocol; Titrate PRN Reason: BP MAINTENANCE (PER PROTOCOL) Stop: 07/19/17 12:29 Last Admin: 05/21/17 01:06 Dose: 10 mcg/min, 19.35 mls/hr Phenylephrine HCl 10 mg/ (Sodium Chloride) 250 mls @ 0 mls/hr IV TITR YESSICA; Per Protocol PRN Reason: Protocol Stop: 07/19/17 12:59 Tigecycline 50 mg/ Sodium (Chloride) 100 mls @ 100 mls/hr IV Q12H YESSICA Stop: 07/21/17 18:59 Last Admin: 05/25/17 06:37 Dose: 100 mls/hr Fluconazole (Diflucan) 100 mg in 50 mls @ 50 mls/hr IV Q24HR YESSICA Stop: 07/21/17 04:59 Last Infusion: 05/25/17 05:55 Dose: Infused Multivitamins/Minerals 5 ml/Dextrose/ Amino Acids/Electrolytes/ Sterile Water 1 ,819 mls @ 40 mls/hr IV .Q24H YESSICA Stop: 07/22/17 15:59 Last Admin: 05/24/17 16:32 Dose: 40 mls/hr Albumin Human (Albuminar 25%) 25 gm in 100 mls @ 50 mls/hr IV X1 ONE Stop: 05/25/17 16:36 Albumin Human (Albuminar 25%) 25 gm in 100 mls @ 50 mls/hr IV X1 ONE Stop: 05/25/17 16:37 Insulin Aspart (Novolog Insulin Sliding Scale) 0 units SUBQ Q6HR YESSICA PRN Reason: Protocol Stop: 07/14/17 00:00 Last Admin: 05/25/17 06:19 Dose: 2 units Ipratropium [place] (Atrovent Neb 0.5mg/2.5ml) 0.5 mg HHN Q4HRT YESSICA Stop: 07/17/17 14:59 Last Admin: 05/24/17 03:19 Dose: 0.5 mg Isosorbide Dinitrate (Isordil) 10 mg GT TID YESSICA Stop: 07/14/17 08:59 Last Admin: 05/25/17 08:24 Dose: 10 mg Lactobacillus Rhamnosus (Culturelle) 1 each PO DAILY YESSICA Stop: 07/17/17 08:59 Last Admin: 05/25/17 08:25 Dose: 1 each Levetiracetam (Keppra) 250 mg NG BID YESSICA Stop: 07/14/17 08:59 Last Admin: 05/25/17 08:25 Dose: 250 mg Lorazepam (Ativan) 1 mg IVP Q4H PRN; Protocol PRN Reason: Agitation Stop: 07/19/17 09:02 Last Admin: 05/25/17 01:02 Dose: 1 mg Metoclopramide HCl (Reglan) 5 mg IVP TID [facility] Stop: 07/20/17 20:59 Last Admin: 05/25/17 08:26 Dose: 5 mg Metoprolol Tartrate (Lopressor) 50 mg GT Q8H YESSICA Stop: 07/18/17 08:59 Last Admin: 05/25/17 08:24 Dose: 50 mg Miscellaneous (Vte Chemical Prophylaxis Screen/ Admission) 1 ea MC PRN PRN PRN Reason: PROTOCOL Stop: 07/14/17 09:25 Miscellaneous (Clinical Monitoring) 1 ea MC DAILY PRN PRN Reason: RENAL Stop: 07/15/17 12:32 Miscellaneous (Probiotic Screen) 1 ea MC PRN PRN PRN Reason: PROTOCOL Stop: 07/16/17 09:33 Miscellaneous (Tpn Per Pharmacy) 1 MC PRN PRN PRN Reason: PROTOCOL Stop: 07/24/17 15:59 Mupirocin (Bactroban Oint) 1 appl TP BID [facility] Stop: 07/14/17 16:59 Last Admin: 05/25/17 09:05 Dose: 1 appl Pantoprazole Sodium (Protonix) 40 mg GT DAILY YESSICA Stop: 07/14/17 08:59 Last Admin: 05/25/17 08:25 Dose: 40 mg General: No acute distress, Moderate distress, Other (Altered), no Alert HEENT: Atraumatic, Mucous membr. moist/pink Neck: Supple, +2 carotid pulse wo bruit Cardiovascular: Regular rate, Normal S1, Normal S2, Other (afib with fluctuating heart rate) Lungs: Clear to auscultation (rales bilaterally), Other (occasional rhonchi, breathing is tight, fine expiratory wheeze) Abdomen: Bowel sounds, Soft, no Distended Extremities: no Edema Neurological: Sensation intact Skin: no Rash Psych/Mental Status: Mood NL - Procedures Procedures: Procedures Procedure Code Date INSERT EMERGENCY AIRWAY 13989 05/13/17 INSERT TUNNELED CV CATH 45715 05/13/17 INSERTION OF ENDOTRACHEAL AIRWAY INTO [place]HEA, VIA OPENING [id number] 05/13/17 INSERTION OF INFUSION DEV INTO R FEMOR VEIN, PERC APPROACH 53SM13D 05/13/17 RESPIRATORY VENTILATION, LESS THAN 24 CONSECUTIVE HOURS [id number] 05/13/17 VENT MGMT INPAT INIT DAY 91832 05/13/17 Assessment/Plan - Problem List Patient Problems: All Active Problems COUGH AND CONGESTION (Acute) - Assessment Assessment: NICK on CKD, now on dialysis A LOC secondary to metabolic encephalopathy/medications Dehydration Essential hypertension with CKD COPD Chronic atrial fibrillation Status post CVA Aspiration pneumonia/dysphagia status post PEG Type 2 diabetes mellitus with CKD Acute Decompensated CHF Acute Resp Failure on Vent Bradycardia - Plan Plan: Lab - Result Diagrams 05/15/17 06:30 05/15/17 06:30 Current Medications Acetaminophen (Tylenol) 650 mg PO Q4HR PRN PRN Reason: Pain Or Fever above 101 Stop: 07/14/17 15:15 Last Admin: 05/15/17 16:21 Dose: 650 mg Albuterol Sulfate (Albuterol 2.5mg/3ml Neb Ud) 2.5 mg HHN Q6HRT YESSICA Stop: 07/14/17 00:59 Last Admin: 05/15/17 16:05 Dose: 2.5 mg Atorvastatin Calcium (Lipitor) 10 mg GT HS YESSICA PRN Reason: Protocol Stop: 07/14/17 20:59 Carbidopa/Levodopa (Sinemet 25mg-100 Mg) 1 tab PO TID YESSICA Stop: 07/14/17 08:59 Last Admin: 05/15/17 14:02 Dose: 1 tab Heparin Sodium (Porcine) (Heparin) 5,000 units SUBQ Q8H YESSICA Stop: 07/14/17 14:59 Last Admin: 05/15/17 16:24 Dose: 5,000 units Sodium Chloride (Nacl 0.9%) 1,000 mls @ 60 mls/hr IV .[id number] YESSICA Stop: 07/13/17 06:40 Last Admin: 05/14/17 17:16 Dose: 60 mls/hr Azithromycin 250 mg/ Sodium (Chloride) 250 mls @ 250 mls/hr IV Q24HR YESSICA Stop: 05/20/17 08:59 Piperacillin Sod/Tazobactam (Sod 3.375 gm/ Sodium Chloride) 50 mls @ 100 mls/ hr IV Q8HR YESSICA Stop: 07/14/17 15:14 Last Admin: 05/15/17 15:57 Dose: 100 mls/hr Insulin Aspart (Novolog Insulin Sliding Scale) 0 units SUBQ Q6HR YESSICA PRN Reason: Protocol Stop: 07/14/17 00:00 Last Admin: 05/15/17 17:09 Dose: Not Given Insulin Detemir (Levemir Insulin) 14 units SUBQ DAILY YESSICA PRN Reason: Protocol Stop: 07/15/17 08:59 Isosorbide Dinitrate (Isordil) 10 mg GT TID YESSICA Stop: 07/14/17 08:59 Last Admin: 05/15/17 14:02 Dose: 10 mg Lactulose (Cephulac) 20 gm PO TID YESSICA Stop: 07/14/17 08:59 Last Admin: 05/15/17 14:02 Dose: 20 gm Levetiracetam (Keppra) 250 mg NG BID YESSICA Stop: 07/14/17 08:59 Last Admin: 05/15/17 16:23 Dose: 250 mg Metoprolol Tartrate (Lopressor) 37.5 mg GT BID [facility] Stop: 07/14/17 00:14 Last Admin: 05/15/17 16:22 Dose: 37.5 mg Miscellaneous (Vte Chemical Prophylaxis Screen/ Admission) 1 ea MC PRN PRN PRN Reason: PROTOCOL Stop: 07/14/17 09:25 Morphine Sulfate (Morphine) 2 mg IVP Q3H PRN PRN Reason: PAIN Stop: 07/13/17 19:46 Last Admin: 05/14/17 21:16 Dose: 2 mg Mupirocin (Bactroban Oint) 1 appl TP BID [facility] Stop: 07/14/17 16:59 Last Admin: 05/15/17 16:24 Dose: 1 appl Pantoprazole Sodium (Protonix) 40 mg GT DAILY YESSICA Stop: 07/14/17 08:59 Last Admin: 05/15/17 08:36 Dose: 40 mg Rifaximin (Xifaxan) 550 mg GT BID [facility] Stop: 07/14/17 08:59 Last Admin: 05/15/17 16:23 Dose: 550 mg Kidney function increased with a BUN 81and creatinine of 3.2 Sodium down to 133 White count down to 13.8 on Zosyn Chest x-ray still w/ b/l infiltrates, right effusion, and elevated BNP of 739 Reviewed his meds Follow-up electrolytes start Maintenance Lasix w/ albumin infusion to improve intravascular volume currently on PPN @ 40 ml /hr prognosis poor Hgb/Hct down to 8.4 over 25.8 schedule for HD today since still has chf on cxr & elevated BNP Follow-up electrolytes, CBC and chest x-ray in a.m. AB.18/62/77/20.1/91% SIMV 8, pressure support 15 Lab - Result Diagrams 05/24/17 04:49 05/24/17 04:49 addendum: Poor response to diuretics, w/ worsening CHF, BNP level developed resp failure, required intubation worsening cardio-renal syndrome discussed w/ grandson Pedro, about poor prognosis but still want to proceed w/ dialysis Nutritional Asmnt/Malnutr-PDOC - Dietary Evaluation Malnutrition Findings (Please click <Entered> for more info): Nutritional Asmnt/Malnutrition Start: 05/15/17 13: 56 Text: Status: Complete Freq: Document 05/15/17 13:56 GSUN (Rec: 05/15/17 14:18 GSUN [email or web address]) Nutritional Asmnt/Malnutrition Patient General Information Nutritional Screening High Risk Screening Diagnosis PNA, NICK, icnreasing renal failure, CVA, CHF, DM Pertinent Medical Hx/Surgical Hx CVA, dementia, afib, CAD, HTN, dyslipidemia, epilepsy, GERD, aspiration PNA, DM, CKD, dehydration, C. diff, anemia D Subjective Information 86 year old male from SNF. Pt greeted RD. Pt is overall thin , moderate to severe wasting to chest, clavicles, extremities. Observed Glytrol running at 60ml/hr x20hrs during visit. Unable to obtain CBW due to bedscale not calibrated. Discussed with YVETTE Farooq regarding tube feeding recommendations. Current Diet Order/ Nutrition Support Glytrol at 60ml/hr x 20hrs, providing 1200kcal 54g protein Pertinent Medications Lipitor, Novolog, Levemir, Cephulac, Morphine, Protonix, Nacl 0.9% Pertinent Labs 05/13: potassium 5.3H, BUN 80H, creatinine 2.4H, glucose 103 05/15: potassium WNL, BUN 70H, creatinine 2.4H, glucose 239H, A1c 6.1H, phosphorus 5.4H Nutritional Hx/Data Height 1.68 m Height (Calculated Centimeters) 167.6 Current Weight (lbs) 65.771 kg Weight (Calculated Kilograms) 65.8 Weight (Calculated Grams) 28943.9 [place] Body Weight 142 Weight Status Approriate GI Symptoms Difficult in: Swallowing Cultural/Ethnic/Taoism Belief [facility]: Glucerna 1.2 at 85ml/hr x 20hrs, providing 2040kcal, promote weight gain. Skin Integrity/Comment: Gee 12. Skin intact. Estimated Nutritional Goals Calories/Kcals/Kg CBW 145lb/65.9kg Kcals Calculated 1976-7kcal (30-35kcal/kg) Protein Calculated 46-92g (0.7-1.4g/kg, renal vs moderate to severe wasting) Fluid: ml Per MD (renal) Nutritional Problem 2. Problem Problem Impaired nutrient utilization related to Etiology NICK, hx CKD aeb Signs/Symptoms: "increasing renal failure," potaasum 5.3H on adm, BUN 70H, president financial institution 2.4H, phosphorus 5.4H 1. Problem Problem Inadequate intake from enteral nutrition infusion related to Etiology estimated nutritional needs aeb Signs/Symptoms: providing to meet 61% lower end kcal needs Intervention/Recommendation Comments 1. Recommend Novasource Renal at 50ml/hr x 20hrs, providing 2000kcal and 91g protein. Current order Glytrol at 60ml/ hr x 20hrs is only providing 1200kcal, pt recieves 2040kcal at [facility]. Expected Outcomes/Goals Expected Outcomes/Goals 1. Pt to meet at least 100% of estimated nutritional needs on tube feeding with tolerance .
--- NOTE | 2017-05-25 11:06 | Diagnostic Imaging Report ---
Exam: Chest x-ray HISTORY: Pneumonia Findings: Portable examination of the chest at 0912 hours reviewed no prior studies available comparison. The study demonstrates endotracheal tube 3 cm above the matias. Right jugular catheter terminates in superior vena cava. There is evidence of diffuse multifocal infiltrates bilaterally with superimposed effusions. The heart is not enlarged. Bony thorax is intact. IMPRESSION: 1. Bilateral interstitial infiltrate superimposed congestion 2. Bilateral effusions. 3. Follow-up recommended.
--- NOTE | 2017-05-25 11:25 | Diagnostic Imaging Report ---
Exam portable examination of the chest HISTORY: Placement of the catheter Findings: Portable examination of the chest at 1345 hours reviewed the study demonstrates endotracheal tube 6 cm above the matias. Right-sided subclavian catheter terminates in superior vena cava. There is evidence of congestion bilateral infiltrates and effusions. Bony thorax intact. Mediastinal structures midline the aortic arch calcified. IMPRESSION: Right subclavian catheter terminates in superior vena cava Congestion Bilateral extensive pneumonia superimposed effusions Follow-up examination recommended
--- NOTE | 2017-05-25 12:32 | General Progress Note ---
Subjective - Review of Systems Events since last encounter: nonverbal on vent Subjective: pt is sleeping pt is in no acute distress Objective - Results Result Diagrams: 05/25/17 05:04 05/25/17 05:04 Recent Labs: Laboratory Last Values WBC 13.8 Th/cmm (4.8-10.8) H D 05/25/17 05:04 RBC 3.01 Mil/cmm (3.80-5.80) L 05/25/17 05:04 Hgb 8.4 gm/dL (12.6-17.4) L 05/25/17 05:04 Hct 25.8 % (39.0-49.0) L 05/25/17 05:04 MCV 85.6 fl (80-99) 05/25/17 05:04 MCH 27.9 pg (27.0-31.0) 05/25/17 05:04 MCHC Differential 32.6 pg (28.0-36.0) 05/25/17 05:04 RDW 15.7 % (11.5-20.0) 05/25/17 05:04 Plt Count 215 Th/cmm (150-400) 05/25/17 05:04 MPV 8.4 fl 05/25/17 05:04 Neutrophils % PLSQL DEVELOPER 05/24/17 04:49 Band Neutrophils % 2 % (0-10) 05/25/17 05:04 Lymphocytes % PLSQL DEVELOPER 05/24/17 04:49 Monocytes % PLSQL DEVELOPER 05/24/17 04:49 Eosinophils % PLSQL DEVELOPER 05/24/17 04:49 Basophils % PLSQL DEVELOPER 05/24/17 04:49 Neutrophils (Manual) 85 % (40-80) H 05/25/17 05:04 Lymphocytes 6 % (20-50) L 05/25/17 05:04 Monocytes 7 % (2-10) 05/25/17 05:04 Eosinophils 0 % (0-5) 05/24/17 04:49 Basophils 0 % (0-3) 05/24/17 04:49 Metamyelocytes 1 % (0-0) H 05/22/17 04:44 Toxic Granulation 1+ 05/23/17 04:48 Platelet Estimate ADEQUATE (NORMAL) 05/25/17 05:04 Platelet Morphology NORMAL (NORMAL) 05/24/17 04:49 Anisocytosis 1+ 05/22/17 04:44 RBC Morph Micro Appear NORMAL (NORMAL) 05/24/17 04:49 Eos Smear Source URINE 05/14/17 18:00 Eos Smear Total Cells FEW EOSINOPHILS SEEN (NONE SEEN) 05/14/17 18:00 PT 11.9 SECONDS (9.5-11.5) H 05/13/17 17:42 INR 1.13 (0.5-1.4) 05/13/17 17:42 PTT (Actin FS) 30.5 SECONDS (26.0-38.0) 05/15/17 12:30 Specimen Source Arterial 05/25/17 09:31 Sample Site Right Radial 05/25/17 09:31 pH 7.18 (7.35-7.45) L* 05/25/17 09:31 pCO2 62.0 mmHg (35.0-45.0) H* 05/25/17 09:31 pO2 77.0 mmHg (80.0-100.0) L 05/25/17 09:31 HCO3 20.1 mEq/L (20.0-26.0) 05/25/17 09:31 Base Excess -6.0 mEq/L (-3.0-3.0) L 05/25/17 09:31 O2 Saturation 91.0 % (92.0-100.0) L 05/25/17 09:31 [place] Test P 05/25/17 09:31 Vent Rate 8 05/25/17 09:31 Inspired O2 40 05/25/17 09:31 Tidal Volume 23 05/25/17 09:31 PEEP 0 05/24/17 09:00 Pressure (ins/psv/peep) 15 05/25/17 09:31 Critical Value PING 05/25/17 09:31 Sodium 133 mEq/L (136-145) L 05/25/17 05:04 Potassium 4.5 mEq/L (3.5-5.1) 05/25/17 05:04 Chloride 102 mEq/L (98-107) 05/25/17 05:04 Carbon Dioxide 19.4 mEq/L (21.0-31.0) L 05/25/17 05:04 Anion Gap 16.1 (7.0-16.0) H 05/25/17 05:04 BUN 81 mg/dL (7-25) H* 05/25/17 05:04 Creatinine 3.2 mg/dL (0.7-1.3) H 05/25/17 05:04 Est GFR ( Amer) TNP 05/25/17 05:04 Est GFR (Non-Af Amer) TNP 05/25/17 05:04 BUN/Creatinine Ratio 25.3 05/25/17 05:04 Glucose 246 mg/dL (70-105) H 05/25/17 05:04 POC Glucose 224 MG/DL (70 - 105) H 05/25/17 11:43 Hemoglobin A1c % 6.1 % (4.0-6.0) H 05/15/17 06:30 Plasma/Ser Osmolality 301 mOsmol/kg (280-301) 05/14/17 18:20 Whole Bld Lactic Acid 1.58 mmol/L (0.60-1.99) 05/13/17 17:42 Uric Acid 7.7 mg/dL (4.4-7.6) H 05/15/17 06:30 Calcium 8.8 mg/dL (8.6-10.3) 05/25/17 05:04 Phosphorus 5.5 mg/dL (2.5-5.0) H 05/25/17 05:04 Magnesium 2.0 mg/dL (1.9-2.7) 05/25/17 05:04 Total Bilirubin 0.6 mg/dL (0.3-1.0) 05/25/17 05:04 Direct Bilirubin 0.09 mg/dL (0.0-0.2) 05/19/17 04:50 AST 16 U/L (13-39) 05/25/17 05:04 ALT < 3 U/L (7-52) L 05/25/17 05:04 Alkaline Phosphatase 76 U/L (34-104) 05/25/17 05:04 Ammonia 65 umol/L (16-53) H 05/19/17 04:50 Creatine Kinase 35 U/L (30-223) 05/16/17 23:06 Troponin I 0.02 ng/mL (0.01-0.05) 05/16/17 23:06 B-Natriuretic Peptide 739.0 pg/mL (5.0-100.0) H 05/23/17 04:48 Total Protein 5.8 gm/dL (6.0-8.3) L 05/25/17 05:04 Albumin 2.8 gm/dL (4.2-5.5) L 05/25/17 05:04 Globulin 3.0 gm/dL 05/25/17 05:04 Albumin/Globulin Ratio 0.9 (1.0-1.8) L 05/25/17 05:04 Prealbumin 9 mg/dL (9-32) 05/24/17 04:49 Triglycerides 47 mg/dL (<150) 05/24/17 04:49 Cholesterol 55 mg/dL (<200) 05/24/17 04:49 TSH 2.74 uIU/ml (0.34-5.60) 05/15/17 06:30 Urine Source CATH 05/13/17 19:50 Urine Color YELLOW 05/13/17 19:50 Urine Clarity CLOUDY (CLEAR) 05/13/17 19:50 Urine pH 6.0 05/13/17 19:50 Ur Specific [place] 1.015 (1.005-1.030) 05/13/17 19:50 Urine Protein 100 mg/dL (NEGATIVE) H 05/13/17 19:50 Urine Glucose (UA) NEGATIVE mg/dL (NEGATIVE) 05/13/17 19:50 Urine Ketones NEGATIVE mg/dL (NEGATIVE) 05/13/17 19:50 Urine Blood LARGE (NEGATIVE) H 05/13/17 19:50 Urine Nitrate NEGATIVE (NEGATIVE) 05/13/17 19:50 Urine Bilirubin NEGATIVE (NEGATIVE) 05/13/17 19:50 Urine Urobilinogen 0.2 E.U./dL (0.2 - 1.0) 05/13/17 19:50 Ur Leukocyte Esterase LARGE (NEGATIVE) H 05/13/17 19:50 Urine RBC 50-100 /hpf (0-5) H 05/13/17 19:50 Urine WBC >100 /hpf (0-5) H 05/13/17 19:50 Ur Epithelial Cells NONE SEEN /lpf (FEW) 05/13/17 19:50 Urine Bacteria NONE SEEN /hpf (NONE SEEN) 05/13/17 19:50 Ur Random Sodium 30 mmol/L 05/14/17 18:00 Urine Creatinine 36.4 mg/dl (Not Estab.) 05/14/17 18:00 Urine Microalbumin 363.5 ug/mL (Not Estab.) 05/14/17 18:00 Microalb/Creat Ratio 998.6 mg/g creat (0.0-30.0) H 05/14/17 18:00 Random Vancomycin 19.1 ug/mL (5.0-40.0) 05/19/17 04:50 Hepatitis A IgM Ab Negative (Negative) 05/21/17 04:46 Hep Bs Antigen Negative (Negative) 05/21/17 04:46 Hep B Core IgM Ab Negative (Negative) 05/21/17 04:46 Hepatitis C Antibody 0.1 s/co ratio (0.0-0.9) 05/21/17 04:46 Blood Type B POSITIVE 05/21/17 10:19 Antibody Screen NEGATIVE 05/21/17 10:19 Crossmatch See Detail 05/21/17 10:19 - Physical Exam Vitals and I&O: Vital Signs Temp 98.1 F 05/25/17 08:00 Pulse 85 05/25/17 11:13 Resp 14 05/25/17 11:00 BP 122/58 05/25/17 11:00 Pulse Ox 97 05/25/17 11:13 Intake & Output 05/24/17 05/25/17 05/25/17 18:59 06:59 18:59 Intake Total 1838 630 Output Total 45 75 Balance 1793 555 Weight (lbs) 68.237 kg 68.237 kg 67.086 kg Intake: Intake, IV Amount 1118 150 Fluconazole 100mg/50mL 50 100 mg In 50 ml @ 50 mls/ hr IV Q24HR YESSICA Rx#: [id number] Multivitamin Inj 5 ml In 1018 Dextrose 70% 242 ml In Amino Acids 15% 627 ml In Water, Sterile 945 ml @ 40 mls/hr IV .Q24H YESSICA Rx #:[id number] Tigecycline 50 mg In 100 100 Sodium Chloride 0.9% 100 ml @ 100 mls/hr IV Q12H YESSICA Rx#:[id number] TPN/PPN 520 480 Other 200 Output: Urine 45 75 Other: # Bowel Movements 0 0 Active Medications: Current Medications Acetaminophen (Tylenol) 650 mg PO Q4HR PRN PRN Reason: Pain Or Fever above 101 Stop: 07/14/17 15:15 Last Admin: 07/21/17 15:07 Dose: 650 mg Albuterol/Ipratropium (Duoneb Neb) 3 ml HHN Q4HRT [facility] Stop: 07/19/17 14:59 Last Admin: 05/25/17 11:13 Dose: 3 ml Atorvastatin Calcium (Lipitor) 10 mg GT HS YESSICA PRN Reason: Protocol Stop: 07/14/17 20:59 Last Admin: 05/24/17 20:59 Dose: 10 mg Budesonide (Pulmicort) 1 mg HHN BIDRT YESSICA Stop: 07/19/17 18:59 Last Admin: 05/25/17 07:37 Dose: 1 mg Carbidopa/Levodopa (Sinemet 25mg-100 Mg) 1 tab PO TID [facility] Stop: 07/14/17 08:59 Last Admin: 05/25/17 08:23 Dose: 1 tab Chlorhexidine Gluconate (Peridex) 15 ml MM 0800,2000 [facility] Stop: 07/23/17 19:59 Last Admin: 05/25/17 09:05 Dose: 15 ml Dextrose (D50w) 50 ml IVP PRN PRN; Protocol PRN Reason: HYPOGLYCEMIA Stop: 07/20/17 00:54 Last Admin: 05/22/17 23:34 Dose: 50 ml Diltiazem HCl (Cardizem) 10 mg IVP Q6HR PRN PRN Reason: HR >130 Stop: 07/22/17 17:09 Last Admin: 05/24/17 04:21 Dose: 10 mg Furosemide (Lasix) 40 mg IVP DAILY [facility] Stop: 07/18/17 08:59 Last Admin: 05/25/17 08:26 Dose: 40 mg Heparin Sodium (Porcine) (Heparin) 5,000 units SUBQ Q8HR [facility] Stop: 07/22/17 20:59 Last Admin: 05/25/17 04:57 Dose: 5,000 units Norepinephrine Bitartrate 8 mg (/ Dextrose) 258 mls @ 0 mls/hr IV TITR PRN; Protocol; Titrate PRN Reason: BP MAINTENANCE (PER PROTOCOL) Stop: 07/19/17 12:29 Last Admin: 05/21/17 01:06 Dose: 10 mcg/min, 19.35 mls/hr Phenylephrine HCl 10 mg/ (Sodium Chloride) 250 mls @ 0 mls/hr IV TITR YESSICA; Per Protocol PRN Reason: Protocol Stop: 07/19/17 12:59 Tigecycline 50 mg/ Sodium (Chloride) 100 mls @ 100 mls/hr IV Q12H YESSICA Stop: 07/21/17 18:59 Last Admin: 05/25/17 06:37 Dose: 100 mls/hr Fluconazole (Diflucan) 100 mg in 50 mls @ 50 mls/hr IV Q24HR YESSICA Stop: 07/21/17 04:59 Last Infusion: 05/25/17 05:55 Dose: Infused Multivitamins/Minerals 5 ml/Dextrose/ Amino Acids/Electrolytes/ Sterile Water 1 ,819 mls @ 40 mls/hr IV .Q24H YESSICA Stop: 07/22/17 15:59 Last Admin: 05/24/17 16:32 Dose: 40 mls/hr Albumin Human (Albuminar 25%) 25 gm in 100 mls @ 50 mls/hr IV X1 ONE Stop: 05/25/17 16:36 Albumin Human (Albuminar 25%) 25 gm in 100 mls @ 50 mls/hr IV X1 ONE Stop: 05/25/17 16:37 Insulin Aspart (Novolog Insulin Sliding Scale) 0 units SUBQ Q6HR YESSICA PRN Reason: Protocol Stop: 07/14/17 00:00 Last Admin: 05/25/17 11:53 Dose: 2 units Ipratropium [place] (Atrovent Neb 0.5mg/2.5ml) 0.5 mg HHN Q4HRT YESSICA Stop: 07/17/17 14:59 Last Admin: 05/24/17 03:19 Dose: 0.5 mg Isosorbide Dinitrate (Isordil) 10 mg GT TID YESSICA Stop: 07/14/17 08:59 Last Admin: 05/25/17 08:24 Dose: 10 mg Lactobacillus Rhamnosus (Culturelle) 1 each PO DAILY YESSICA Stop: 07/17/17 08:59 Last Admin: 05/25/17 08:25 Dose: 1 each Levetiracetam (Keppra) 250 mg NG BID YESSICA Stop: 07/14/17 08:59 Last Admin: 05/25/17 08:25 Dose: 250 mg Lorazepam (Ativan) 1 mg IVP Q4H PRN; Protocol PRN Reason: Agitation Stop: 07/19/17 09:02 Last Admin: 05/25/17 01:02 Dose: 1 mg Metoclopramide HCl (Reglan) 5 mg IVP TID YESSICA Stop: 07/20/17 20:59 Last Admin: 05/25/17 08:26 Dose: 5 mg Metoprolol Tartrate (Lopressor) 50 mg GT Q8H YESSICA Stop: 07/18/17 08:59 Last Admin: 05/25/17 08:24 Dose: 50 mg Miscellaneous (Vte Chemical Prophylaxis Screen/ Admission) 1 ea MC PRN PRN PRN Reason: PROTOCOL Stop: 07/14/17 09:25 Miscellaneous (Clinical Monitoring) 1 ea MC DAILY PRN PRN Reason: RENAL Stop: 07/15/17 12:32 Miscellaneous (Probiotic Screen) 1 ea MC PRN PRN PRN Reason: PROTOCOL Stop: 07/16/17 09:33 Miscellaneous (Tpn Per Pharmacy) 1 ea PRN PRN PRN Reason: PROTOCOL Stop: 07/24/17 15:59 Mupirocin (Bactroban Oint) 1 appl TP BID YESSICA Stop: 07/14/17 16:59 Last Admin: 05/25/17 09:05 Dose: 1 appl Pantoprazole Sodium (Protonix) 40 mg GT DAILY YESSICA Stop: 07/14/17 08:59 Last Admin: 05/25/17 08:25 Dose: 40 mg General: No acute distress, Moderate distress, Other (Altered), no Alert HEENT: Atraumatic, Mucous membr. moist/pink Neck: Supple, +2 carotid pulse wo bruit Cardiovascular: Regular rate, Normal S1, Normal S2, Other (afib with fluctuating heart rate) Lungs: Clear to auscultation (rales bilaterally), Other (occasional rhonchi, breathing is tight, fine expiratory wheeze) Abdomen: Bowel sounds, Soft, no Distended Extremities: no Edema Neurological: Sensation intact Skin: no Rash Psych/Mental Status: Mood NL - Procedures Procedures: Procedures Procedure Code Date INSERT EMERGENCY AIRWAY 02697 05/13/17 INSERT TUNNELED CV CATH [id number] 05/13/17 INSERTION OF ENDOTRACHEAL AIRWAY INTO TRACHEA, VIA OPENING [id number] 05/13/17 INSERTION OF INFUSION DEV INTO R FEMOR VEIN, PERC APPROACH [id number] 05/13/17 RESPIRATORY VENTILATION, LESS THAN 24 CONSECUTIVE HOURS [id number] 05/13/17 VENT MGMT INPAT INIT [id number] 05/13/17 Assessment/Plan - Problem List Patient Problems: All Active Problems COUGH AND CONGESTION (Acute) - Assessment Assessment: Current Active Problems Problem Status Onset COUGH AND CONGESTION Acute sob pnumonia r/o sepsis incresing renal failure h/o cva h/o atrail fib dm nick h/o c diff uti anemia - Plan Plan: iv fluids renal consult id consult Nutritional Asmnt/Malnutr-PDOC - Dietary Evaluation Malnutrition Findings (Please click <Entered> for more info): Nutritional Asmnt/Malnutrition Start: 05/15/17 13: 56 Text: Status: Complete Freq: Document 05/15/17 13:56 GSUN (Rec: 05/15/17 14:18 GSUN [id number]) Nutritional Asmnt/Malnutrition Patient General Information Nutritional Screening High Risk Screening Diagnosis PNA, NICK, icnreasing renal failure, CVA, CHF, DM Pertinent Medical Hx/Surgical Hx CVA, dementia, afib, CAD, HTN, dyslipidemia, epilepsy, GERD, aspiration PNA, DM, CKD, dehydration, C. diff, anemia D Subjective Information 86 year old male from SNF. Pt greeted RD. Pt is overall thin , moderate to severe wasting to chest, clavicles, extremities. Observed Glytrol running at 60ml/hr x20hrs during visit. Unable to obtain CBW due to bedscale not calibrated. Discussed with YVETTE Farooq regarding tube feeding recommendations. Current Diet Order/ Nutrition Support Glytrol at 60ml/hr x 20hrs, providing 1200kcal 54g protein Pertinent Medications Lipitor, Novolog, Levemir, Cephulac, Morphine, Protonix, Nacl 0.9% Pertinent Labs 05/13: potassium 5.3H, BUN 80H, creatinine 2.4H, glucose 103 05/15: potassium WNL, BUN 70H, creatinine 2.4H, glucose 239H, A1c 6.1H, phosphorus 5.4H Nutritional Hx/Data Height 1.68 m Height (Calculated Centimeters) 167.6 Current Weight (lbs) 65.771 kg Weight (Calculated Kilograms) 65.8 Weight (Calculated Grams) 44338.9 [place] Body Weight 142 Weight Status Approriate GI Symptoms Difficult in: Swallowing Cultural/Ethnic/[employer] Belief [place] [facility]: Glucerna 1.2 at 85ml/hr x 20hrs, providing 2040kcal, promote weight gain. Skin Integrity/Comment: Gee 12. Skin intact. Estimated Nutritional Goals Calories/Kcals/Kg CBW 145lb/65.9kg Kcals Calculated 1976-7kcal (30-35kcal/kg) Protein Calculated 46-92g (0.7-1.4g/kg, renal vs moderate to severe wasting) Fluid: ml Per MD (renal) Nutritional Problem 2. Problem Problem Impaired nutrient utilization related to Etiology NICK, hx CKD aeb Signs/Symptoms: "increasing renal failure," potaasum 5.3H on adm, BUN 70H, motor and generator brush cutter 2.4H, phosphorus 5.4H 1. Problem Problem Inadequate intake from enteral nutrition infusion related to Etiology estimated nutritional needs aeb Signs/Symptoms: providing to meet 61% lower end kcal needs Intervention/Recommendation Comments 1. Recommend Novasource Renal at 50ml/hr x 20hrs, providing 2000kcal and 91g protein. Current order Glytrol at 60ml/ hr x 20hrs is only providing 1200kcal, pt recieves 2040kcal at [facility]. Expected Outcomes/Goals Expected Outcomes/Goals 1. Pt to meet at least 100% of estimated nutritional needs on tube feeding with tolerance .
[2017-05-25] MEDS ORDERED: Albumin 25% 25gm/100mL 25 GM/100 ML BTL IV ONE ×2 (14:37→14:38)
--- NOTE | 2017-05-25 15:51 | General Progress Note ---
Subjective - Review of Systems Service Date: 05/25/17 Subjective: Patient seen and examined sleeping on vent no new concern reported Objective - Results Result Diagrams: 05/25/17 05:04 05/25/17 05:04 Recent Labs: Laboratory Last Values WBC 13.8 Th/cmm (4.8-10.8) H D 05/25/17 05:04 RBC 3.01 Mil/cmm (3.80-5.80) L 05/25/17 05:04 Hgb 8.4 gm/dL (12.6-17.4) L 05/25/17 05:04 Hct 25.8 % (39.0-49.0) L 05/25/17 05:04 MCV 85.6 fl (80-99) 05/25/17 05:04 MCH 27.9 pg (27.0-31.0) 05/25/17 05:04 MCHC Differential 32.6 pg (28.0-36.0) 05/25/17 05:04 RDW 15.7 % (11.5-20.0) 05/25/17 05:04 Plt Count 215 Th/cmm (150-400) 05/25/17 05:04 MPV 8.4 fl 05/25/17 05:04 Neutrophils % [employer] 05/24/17 04:49 Band Neutrophils % 2 % (0-10) 05/25/17 05:04 Lymphocytes % [employer] 05/24/17 04:49 Monocytes % [employer]IVER SAL[employer] 05/24/17 04:49 Eosinophils % [employer]IVER SAL[employer] 05/24/17 04:49 Basophils % [employer] 05/24/17 04:49 Neutrophils (Manual) 85 % (40-80) H 05/25/17 05:04 Lymphocytes 6 % (20-50) L 05/25/17 05:04 Monocytes 7 % (2-10) 05/25/17 05:04 Eosinophils 0 % (0-5) 05/24/17 04:49 Basophils 0 % (0-3) 05/24/17 04:49 Metamyelocytes 1 % (0-0) H 05/22/17 04:44 Toxic Granulation 1+ 05/23/17 04:48 Platelet Estimate ADEQUATE (NORMAL) 05/25/17 05:04 Platelet Morphology NORMAL (NORMAL) 05/24/17 04:49 Anisocytosis 1+ 05/22/17 04:44 RBC Morph Micro Appear NORMAL (NORMAL) 05/24/17 04:49 Eos Smear Source URINE 05/14/17 18:00 Eos Smear Total Cells FEW EOSINOPHILS SEEN (NONE SEEN) 05/14/17 18:00 PT 11.9 SECONDS (9.5-11.5) H 05/13/17 17:42 INR 1.13 (0.5-1.4) 05/13/17 17:42 PTT (Actin FS) 30.5 SECONDS (26.0-38.0) 05/15/17 12:30 Specimen Source Arterial 05/25/17 09:31 Sample Site Right Radial 05/25/17 09:31 pH 7.18 (7.35-7.45) L* 05/25/17 09:31 pCO2 62.0 mmHg (35.0-45.0) H* 05/25/17 09:31 pO2 77.0 mmHg (80.0-100.0) L 05/25/17 09:31 HCO3 20.1 mEq/L (20.0-26.0) 05/25/17 09:31 Base Excess -6.0 mEq/L (-3.0-3.0) L 05/25/17 09:31 O2 Saturation 91.0 % (92.0-100.0) L 05/25/17 09:31 [place]o Test P 05/25/17 09:31 Vent Rate 8 05/25/17 09:31 Inspired O2 40 05/25/17 09:31 Tidal Volume 23 05/25/17 09:31 PEEP 0 05/24/17 09:00 Pressure (ins/psv/peep) 15 05/25/17 09:31 Critical Value PING 05/25/17 09:31 Sodium 133 mEq/L (136-145) L 05/25/17 05:04 Potassium 4.5 mEq/L (3.5-5.1) 05/25/17 05:04 Chloride 102 mEq/L (98-107) 05/25/17 05:04 Carbon Dioxide 19.4 mEq/L (21.0-31.0) L 05/25/17 05:04 Anion Gap 16.1 (7.0-16.0) H 05/25/17 05:04 BUN 81 mg/dL (7-25) H* 05/25/17 05:04 Creatinine 3.2 mg/dL (0.7-1.3) H 05/25/17 05:04 Est GFR ( Amer) TNP 05/25/17 05:04 Est GFR (Non-Af Amer) TNP 05/25/17 05:04 BUN/Creatinine Ratio 25.3 05/25/17 05:04 Glucose 246 mg/dL (70-105) H 05/25/17 05:04 POC Glucose 224 MG/DL (70 - 105) H 05/25/17 11:43 Hemoglobin A1c % 6.1 % (4.0-6.0) H 05/15/17 06:30 Plasma/Ser Osmolality 301 mOsmol/kg (280-301) 05/14/17 18:20 Whole Bld Lactic Acid 1.58 mmol/L (0.60-1.99) 05/13/17 17:42 Uric Acid 7.7 mg/dL (4.4-7.6) H 05/15/17 06:30 Calcium 8.8 mg/dL (8.6-10.3) 05/25/17 05:04 Phosphorus 5.5 mg/dL (2.5-5.0) H 05/25/17 05:04 Magnesium 2.0 mg/dL (1.9-2.7) 05/25/17 05:04 Total Bilirubin 0.6 mg/dL (0.3-1.0) 05/25/17 05:04 Direct Bilirubin 0.09 mg/dL (0.0-0.2) 05/19/17 04:50 AST 16 U/L (13-39) 05/25/17 05:04 ALT < 3 U/L (7-52) L 05/25/17 05:04 Alkaline Phosphatase 76 U/L (34-104) 05/25/17 05:04 Ammonia 65 umol/L (16-53) H 05/19/17 04:50 Creatine Kinase 35 U/L (30-223) 05/16/17 23:06 Troponin I 0.02 ng/mL (0.01-0.05) 05/16/17 23:06 B-Natriuretic Peptide 739.0 pg/mL (5.0-100.0) H 05/23/17 04:48 Total Protein 5.8 gm/dL (6.0-8.3) L 05/25/17 05:04 Albumin 2.8 gm/dL (4.2-5.5) L 05/25/17 05:04 Globulin 3.0 gm/dL 05/25/17 05:04 Albumin/Globulin Ratio 0.9 (1.0-1.8) L 05/25/17 05:04 Prealbumin 9 mg/dL (9-32) 05/24/17 04:49 Triglycerides 47 mg/dL (<150) 05/24/17 04:49 Cholesterol 55 mg/dL (<200) 05/24/17 04:49 TSH 2.74 uIU/ml (0.34-5.60) 05/15/17 06:30 Urine Source CATH 05/13/17 19:50 Urine Color YELLOW 05/13/17 19:50 Urine Clarity CLOUDY (CLEAR) 05/13/17 19:50 Urine pH 6.0 05/13/17 19:50 Ur Specific [place] 1.015 (1.005-1.030) 05/13/17 19:50 Urine Protein 100 mg/dL (NEGATIVE) H 05/13/17 19:50 Urine Glucose (UA) NEGATIVE mg/dL (NEGATIVE) 05/13/17 19:50 Urine Ketones NEGATIVE mg/dL (NEGATIVE) 05/13/17 19:50 Urine Blood LARGE (NEGATIVE) H 05/13/17 19:50 Urine Nitrate NEGATIVE (NEGATIVE) 05/13/17 19:50 Urine Bilirubin NEGATIVE (NEGATIVE) 05/13/17 19:50 Urine Urobilinogen 0.2 E.U./dL (0.2 - 1.0) 05/13/17 19:50 Ur Leukocyte Esterase LARGE (NEGATIVE) H 05/13/17 19:50 Urine RBC 50-100 /hpf (0-5) H 05/13/17 19:50 Urine WBC >100 /hpf (0-5) H 05/13/17 19:50 Ur Epithelial Cells NONE SEEN /lpf (FEW) 05/13/17 19:50 Urine Bacteria NONE SEEN /hpf (NONE SEEN) 05/13/17 19:50 Ur Random Sodium 30 mmol/L 05/14/17 18:00 Urine Creatinine 36.4 mg/dl (Not Estab.) 05/14/17 18:00 Urine Microalbumin 363.5 ug/mL (Not Estab.) 05/14/17 18:00 Microalb/Creat Ratio 998.6 mg/g creat (0.0-30.0) H 05/14/17 18:00 Random Vancomycin 19.1 ug/mL (5.0-40.0) 05/19/17 04:50 Hepatitis A IgM Ab Negative (Negative) 05/21/17 04:46 Hep Bs Antigen Negative (Negative) 05/21/17 04:46 Hep B Core IgM Ab Negative (Negative) 05/21/17 04:46 Hepatitis C Antibody 0.1 s/co ratio (0.0-0.9) 05/21/17 04:46 Blood Type B POSITIVE 05/21/17 10:19 Antibody Screen NEGATIVE 05/21/17 10:19 Crossmatch See Detail 05/21/17 10:19 - Physical Exam Vitals and I&O: Vital Signs Temp 97.6 F 05/25/17 12:00 Pulse 95 05/25/17 15:23 Resp 15 05/25/17 14:00 BP 105/60 05/25/17 14:02 Pulse Ox 98 05/25/17 15:23 Intake & Output 05/24/17 05/25/17 05/25/17 18:59 06:59 18:59 Intake Total 1838 630 Output Total 45 75 Balance 1793 555 Weight (lbs) 68.237 kg 68.237 kg 67.086 kg Intake: Intake, IV Amount 1118 150 Fluconazole 100mg/50mL 50 100 mg In 50 ml @ 50 mls/ hr IV Q24HR YESSICA Rx#: [id number] Multivitamin Inj 5 ml In 1018 Dextrose 70% 242 ml In Amino Acids 15% 627 ml In Water, Sterile 945 ml @ 40 mls/hr IV .Q24H YESSICA Rx #:[id number] Tigecycline 50 mg In 100 100 Sodium Chloride 0.9% 100 ml @ 100 mls/hr IV Q12H YESSICA Rx#:[id number] TPN/PPN 520 480 Other 200 Output: Urine 45 75 Other: # Bowel Movements 0 0 Active Medications: Current Medications Acetaminophen (Tylenol) 650 mg PO Q4HR PRN PRN Reason: Pain Or Fever above 101 Stop: 07/14/17 15:15 Last Admin: 05/23/17 15:07 Dose: 650 mg Albuterol/Ipratropium (Duoneb Neb) 3 ml HHN Q4HRT [facility] Stop: 07/19/17 14:59 Last Admin: 05/25/17 15:23 Dose: 3 ml Atorvastatin Calcium (Lipitor) 10 mg GT HS YESSICA PRN Reason: Protocol Stop: 07/14/17 20:59 Last Admin: 05/24/17 20:59 Dose: 10 mg Budesonide (Pulmicort) 1 mg HHN BIDRT YESSICA Stop: 07/19/17 18:59 Last Admin: 05/25/17 07:37 Dose: 1 mg Carbidopa/Levodopa (Sinemet 25mg-100 Mg) 1 tab PO TID [facility] Stop: 07/14/17 08:59 Last Admin: 05/25/17 13:59 Dose: 1 tab Chlorhexidine Gluconate (Peridex) 15 ml MM 0800,2000 [facility] Stop: 07/23/17 19:59 Last Admin: 05/25/17 09:05 Dose: 15 ml Dextrose (D50w) 50 ml IVP PRN PRN; Protocol PRN Reason: HYPOGLYCEMIA Stop: 07/20/17 00:54 Last Admin: 05/22/17 23:34 Dose: 50 ml Diltiazem HCl (Cardizem) 10 mg IVP Q6HR PRN PRN Reason: HR >130 Stop: 07/22/17 17:09 Last Admin: 05/24/17 04:21 Dose: 10 mg Furosemide (Lasix) 40 mg IVP DAILY [facility] Stop: 07/18/17 08:59 Last Admin: 05/25/17 08:26 Dose: 40 mg Heparin Sodium (Porcine) (Heparin) 5,000 units SUBQ Q8HR [facility] Stop: 07/22/17 20:59 Last Admin: 05/25/17 13:08 Dose: 5,000 units Norepinephrine Bitartrate 8 mg (/ Dextrose) 258 mls @ 0 mls/hr IV TITR PRN; Protocol; Titrate PRN Reason: BP MAINTENANCE (PER PROTOCOL) Stop: 07/19/17 12:29 Last Admin: 05/21/17 01:06 Dose: 10 mcg/min, 19.35 mls/hr Phenylephrine HCl 10 mg/ (Sodium Chloride) 250 mls @ 0 mls/hr IV TITR YESSICA; Per Protocol PRN Reason: Protocol Stop: 07/19/17 12:59 Tigecycline 50 mg/ Sodium (Chloride) 100 mls @ 100 mls/hr IV Q12H YESSICA Stop: 07/21/17 18:59 Last Admin: 05/25/17 06:37 Dose: 100 mls/hr Fluconazole (Diflucan) 100 mg in 50 mls @ 50 mls/hr IV Q24HR YESSICA Stop: 07/21/17 04:59 Last Infusion: 05/25/17 05:55 Dose: Infused Multivitamins/Minerals 5 ml/Dextrose/ Amino Acids/Electrolytes/ Sterile Water 1 ,819 mls @ 40 mls/hr IV .Q24H YESSICA Stop: 07/22/17 15:59 Last Admin: 05/24/17 16:32 Dose: 40 mls/hr Albumin Human (Albuminar 25%) 25 gm in 100 mls @ 50 mls/hr IV X1 ONE Stop: 05/25/17 16:36 Albumin Human (Albuminar 25%) 25 gm in 100 mls @ 50 mls/hr IV X1 ONE Stop: 05/25/17 16:37 Insulin Aspart (Novolog Insulin Sliding Scale) 0 units SUBQ Q6HR YESSICA PRN Reason: Protocol Stop: 07/14/17 00:00 Last Admin: 05/25/17 11:53 Dose: 2 units Ipratropium [place] (Atrovent Neb 0.5mg/2.5ml) 0.5 mg HHN Q4HRT YESSICA Stop: 07/17/17 14:59 Last Admin: 05/24/17 03:19 Dose: 0.5 mg Isosorbide Dinitrate (Isordil) 10 mg GT TID YESSICA Stop: 07/14/17 08:59 Last Admin: 05/25/17 14:02 Dose: Not Given Lactobacillus Rhamnosus (Culturelle) 1 each PO DAILY YESSICA Stop: 07/17/17 08:59 Last Admin: 05/25/17 08:25 Dose: 1 each Levetiracetam (Keppra) 250 mg NG BID YESSICA Stop: 07/14/17 08:59 Last Admin: 05/25/17 08:25 Dose: 250 mg Lorazepam (Ativan) 1 mg IVP Q4H PRN; Protocol PRN Reason: Agitation Stop: 07/19/17 09:02 Last Admin: 05/25/17 01:02 Dose: 1 mg Metoclopramide HCl (Reglan) 5 mg IVP TID YESSICA Stop: 07/20/17 20:59 Last Admin: 05/25/17 13:59 Dose: 5 mg Metoprolol Tartrate (Lopressor) 50 mg GT Q8H YESSICA Stop: 07/18/17 08:59 Last Admin: 05/25/17 08:24 Dose: 50 mg Miscellaneous (Vte Chemical Prophylaxis Screen/ Admission) 1 ea [facility] PRN PRN PRN Reason: PROTOCOL Stop: 07/14/17 09:25 Miscellaneous (Clinical Monitoring) 1 ea MC DAILY PRN PRN Reason: RENAL Stop: 07/15/17 12:32 Miscellaneous (Probiotic Screen) 1 ea MC PRN PRN PRN Reason: PROTOCOL Stop: 07/16/17 09:33 Miscellaneous (Tpn Per Pharmacy) 1 ea MC PRN PRN PRN Reason: PROTOCOL Stop: 07/24/17 15:59 Mupirocin (Bactroban Oint) 1 appl TP BID YESSICA Stop: 07/14/17 16:59 Last Admin: 05/25/17 09:05 Dose: 1 appl Pantoprazole Sodium (Protonix) 40 mg GT DAILY YESSICA Stop: 07/14/17 08:59 Last Admin: 05/25/17 08:25 Dose: 40 mg General: No acute distress, no Alert HEENT: Mucous membr. moist/pink Neck: Supple, +2 carotid pulse wo bruit Cardiovascular: Regular rate, Other (afib with fluctuating heart rate) Lungs: Clear to auscultation (rales bilaterally), Other (occasional rhonchi, breathing is tight, fine expiratory wheeze) Abdomen: Soft Extremities: Edema - Procedures Procedures: Procedures Procedure Code Date INSERT EMERGENCY AIRWAY 62501 05/13/17 INSERT TUNNELED CV CATH 33975 05/13/17 INSERTION OF ENDOTRACHEAL AIRWAY INTO TRACHEA, VIA OPENING [id number] 05/13/17 INSERTION OF INFUSION DEV INTO R FEMOR VEIN, PERC APPROACH [id number] 05/13/17 RESPIRATORY VENTILATION, LESS THAN 24 CONSECUTIVE HOURS [id number] 05/13/17 VENT MGMT INPAT IN DAY 62984 05/13/17 Assessment/Plan - Problem List Patient Problems: All Active Problems COUGH AND CONGESTION (Acute) - Assessment Assessment: Current Active Problems Problem Status Onset COUGH AND CONGESTION Acute Acute respiratory failure on vent improving Renal failure improving on HD MDRO Pneumonia Afib RVR UTI CAD 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 HTN renal disease Seizure disorder - Plan Plan: DC lactulose Heparin sub Q Cardizem iv prn Metoprolol Tygacil per ID rec HD per nephrology rec Continue vent support PPN started for nutritional support Off vasopressor Feeding on hold due to tolerance issue Plan of care discussed with nursing staff Plan of care discussed with nursing staff Nutritional Asmnt/Malnutr-PDOC - Dietary Evaluation Malnutrition Findings (Please click <Entered> for more info): Nutritional Asmnt/Malnutrition Start: 05/15/17 13: 56 Text: Status: Complete Freq: Document 05/15/17 13:56 GSUN (Rec: 05/15/17 14:18 GSUN [email or web address]) Nutritional Asmnt/Malnutrition Patient General Information Nutritional Screening High Risk Screening Diagnosis PNA, NICK, icnreasing renal failure, CVA, CHF, DM Pertinent Medical Hx/Surgical Hx CVA, dementia, afib, CAD, HTN, dyslipidemia, epilepsy, GERD, aspiration PNA, DM, CKD, dehydration, C. diff, anemia D Subjective Information 86 year old male from SNF. Pt greeted RD. Pt is overall thin , moderate to severe wasting to chest, clavicles, extremities. Observed Glytrol running at 60ml/hr x20hrs during visit. Unable to obtain CBW due to bedscale not calibrated. Discussed with YVETTE Farooq regarding tube feeding recommendations. Current Diet Order/ Nutrition Support Glytrol at 60ml/hr x 20hrs, providing 1200kcal 54g protein Pertinent Medications Lipitor, Novolog, Levemir, Cephulac, Morphine, Protonix, Nacl 0.9% Pertinent Labs 05/13: potassium 5.3H, BUN 80H, creatinine 2.4H, glucose 103 05/15: potassium WNL, BUN 70H, creatinine 2.4H, glucose 239H, A1c 6.1H, phosphorus 5.4H Nutritional Hx/Data Height 1.68 m Height (Calculated Centimeters) 167.6 Current Weight (lbs) 65.771 kg Weight (Calculated Kilograms) 65.8 Weight (Calculated Grams) 06502.9 [place] Body Weight 142 Weight Status Approriate GI Symptoms Difficult in: Swallowing Cultural/Ethnic/[employer]ish Belief [facility]: Glucerna 1.2 at 85ml/hr x 20hrs, providing 2040kcal, promote weight gain. Skin Integrity/Comment: Gee 12. Skin intact. Estimated Nutritional Goals Calories/Kcals/Kg CBW 145lb/65.9kg Kcals Calculated 1976-7kcal (30-35kcal/kg) Protein Calculated 46-92g (0.7-1.4g/kg, renal vs moderate to severe wasting) Fluid: ml Per MD (renal) Nutritional Problem 2. 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 Problem Problem Inadequate intake from enteral nutrition infusion related to Etiology estimated nutritional needs aeb Signs/Symptoms: providing to meet 61% lower end kcal needs Intervention/Recommendation Comments 1. Recommend Novasource Renal at 50ml/hr x 20hrs, providing 2000kcal and 91g protein. Current order Glytrol at 60ml/ hr x 20hrs is only providing 1200kcal, pt recieves 2040kcal at [facility]. Expected Outcomes/Goals Expected Outcomes/Goals 1. Pt to meet at least 100% of estimated nutritional needs on tube feeding with tolerance .
--- NOTE | 2017-05-25 18:43 | Infectious Disease Prog Note ---
Infectious Disease Subjective - Review of Systems Service Date: 05/25/17 Subjective: No new change. No fever. intubated orally, on vent support. Infectious Disease Objective - Results Result Diagrams: 05/26/17 04:40 05/26/17 04:40 Recent Labs: Laboratory Last Values WBC 13.8 Th/cmm (4.8-10.8) H D 05/25/17 05:04 RBC 3.01 Mil/cmm (3.80-5.80) L 05/25/17 05:04 Hgb 8.4 gm/dL (12.6-17.4) L 05/25/17 05:04 Hct 25.8 % (39.0-49.0) L 05/25/17 05:04 MCV 85.6 fl (80-99) 05/25/17 05:04 MCH 27.9 pg (27.0-31.0) 05/25/17 05:04 MCHC Differential 32.6 pg (28.0-36.0) 05/25/17 05:04 RDW 15.7 % (11.5-20.0) 05/25/17 05:04 Plt Count 215 Th/cmm (150-400) 05/25/17 05:04 MPV 8.4 fl 05/25/17 05:04 Neutrophils % TOWER DRAGLINE OPERATOR 05/24/17 04:49 Band Neutrophils % 2 % (0-10) 05/25/17 05:04 Lymphocytes % TOWER DRAGLINE OPERATOR 05/24/17 04:49 Monocytes % TOWER DRAGLINE OPERATOR 05/24/17 04:49 Eosinophils % TOWER DRAGLINE OPERATOR 05/24/17 04:49 Basophils % TOWER DRAGLINE OPERATOR 05/24/17 04:49 Neutrophils (Manual) 85 % (40-80) H 05/25/17 05:04 Lymphocytes 6 % (20-50) L 05/25/17 05:04 Monocytes 7 % (2-10) 05/25/17 05:04 Eosinophils 0 % (0-5) 05/24/17 04:49 Basophils 0 % (0-3) 05/24/17 04:49 Metamyelocytes 1 % (0-0) H 05/22/17 04:44 Toxic Granulation 1+ 05/23/17 04:48 Platelet Estimate ADEQUATE (NORMAL) 05/25/17 05:04 Platelet Morphology NORMAL (NORMAL) 05/24/17 04:49 Anisocytosis 1+ 05/22/17 04:44 RBC Morph Micro Appear NORMAL (NORMAL) 05/24/17 04:49 Eos Smear Source URINE 05/14/17 18:00 Eos Smear Total Cells FEW EOSINOPHILS SEEN (NONE SEEN) 05/14/17 18:00 PT 11.9 SECONDS (9.5-11.5) H 05/13/17 17:42 INR 1.13 (0.5-1.4) 05/13/17 17:42 PTT (Actin FS) 30.5 SECONDS (26.0-38.0) 05/15/17 12:30 Specimen Source Arterial 05/25/17 09:31 Sample Site Right Radial 05/25/17 09:31 pH 7.18 (7.35-7.45) L* 05/25/17 09:31 pCO2 62.0 mmHg (35.0-45.0) H* 05/25/17 09:31 pO2 77.0 mmHg (80.0-100.0) L 05/25/17 09:31 HCO3 20.1 mEq/L (20.0-26.0) 05/25/17 09:31 Base Excess -6.0 mEq/L (-3.0-3.0) L 05/25/17 09:31 O2 Saturation 91.0 % (92.0-100.0) L 05/25/17 09:31 [place] Test P 05/25/17 09:31 Vent Rate 8 05/25/17 09:31 Inspired O2 40 05/25/17 09:31 Tidal Volume 23 05/25/17 09:31 PEEP 0 05/24/17 09:00 Pressure (ins/psv/peep) 15 05/25/17 09:31 Critical Value PING 05/25/17 09:31 Sodium 133 mEq/L (136-145) L 05/25/17 05:04 Potassium 4.5 mEq/L (3.5-5.1) 05/25/17 05:04 Chloride 102 mEq/L (98-107) 05/25/17 05:04 Carbon Dioxide 19.4 mEq/L (21.0-31.0) L 05/25/17 05:04 Anion Gap 16.1 (7.0-16.0) H 05/25/17 05:04 BUN 81 mg/dL (7-25) H* 05/25/17 05:04 Creatinine 3.2 mg/dL (0.7-1.3) H 05/25/17 05:04 Est GFR ( Amer) TNP 05/25/17 05:04 Est GFR (Non-Af Amer) TNP 05/25/17 05:04 BUN/Creatinine Ratio 25.3 05/25/17 05:04 Glucose 246 mg/dL (70-105) H 05/25/17 05:04 POC Glucose 191 MG/DL (70 - 105) H 05/25/17 18:06 Hemoglobin A1c % 6.1 % (4.0-6.0) H 05/15/17 06:30 Plasma/Ser Osmolality 301 mOsmol/kg (280-301) 05/14/17 18:20 Whole Bld Lactic Acid 1.58 mmol/L (0.60-1.99) 05/13/17 17:42 Uric Acid 7.7 mg/dL (4.4-7.6) H 05/15/17 06:30 Calcium 8.8 mg/dL (8.6-10.3) 05/25/17 05:04 Phosphorus 5.5 mg/dL (2.5-5.0) H 05/25/17 05:04 Magnesium 2.0 mg/dL (1.9-2.7) 05/25/17 05:04 Total Bilirubin 0.6 mg/dL (0.3-1.0) 05/25/17 05:04 Direct Bilirubin 0.09 mg/dL (0.0-0.2) 05/19/17 04:50 AST 16 U/L (13-39) 05/25/17 05:04 ALT < 3 U/L (7-52) L 05/25/17 05:04 Alkaline Phosphatase 76 U/L (34-104) 05/25/17 05:04 Ammonia 65 umol/L (16-53) H 05/19/17 04:50 Creatine Kinase 35 U/L (30-223) 05/16/17 23:06 Troponin I 0.02 ng/mL (0.01-0.05) 05/16/17 23:06 B-Natriuretic Peptide 739.0 pg/mL (5.0-100.0) H 05/23/17 04:48 Total Protein 5.8 gm/dL (6.0-8.3) L 05/25/17 05:04 Albumin 2.8 gm/dL (4.2-5.5) L 05/25/17 05:04 Globulin 3.0 gm/dL 05/25/17 05:04 Albumin/Globulin Ratio 0.9 (1.0-1.8) L 05/25/17 05:04 Prealbumin 9 mg/dL (9-32) 05/24/17 04:49 Triglycerides 47 mg/dL (<150) 05/24/17 04:49 Cholesterol 55 mg/dL (<200) 05/24/17 04:49 TSH 2.74 uIU/ml (0.34-5.60) 05/15/17 06:30 Urine Source CATH 05/13/17 19:50 Urine Color YELLOW 05/13/17 19:50 Urine Clarity CLOUDY (CLEAR) 05/13/17 19:50 Urine pH 6.0 05/13/17 19:50 Ur Specific [place] 1.015 (1.005-1.030) 05/13/17 19:50 Urine Protein 100 mg/dL (NEGATIVE) H 05/13/17 19:50 Urine Glucose (UA) NEGATIVE mg/dL (NEGATIVE) 05/13/17 19:50 Urine Ketones NEGATIVE mg/dL (NEGATIVE) 05/13/17 19:50 Urine Blood LARGE (NEGATIVE) H 05/13/17 19:50 Urine Nitrate NEGATIVE (NEGATIVE) 05/13/17 19:50 Urine Bilirubin NEGATIVE (NEGATIVE) 05/13/17 19:50 Urine Urobilinogen 0.2 E.U./dL (0.2 - 1.0) 05/13/17 19:50 Ur Leukocyte Esterase LARGE (NEGATIVE) H 05/13/17 19:50 Urine RBC 50-100 /hpf (0-5) H 05/13/17 19:50 Urine WBC >100 /hpf (0-5) H 05/13/17 19:50 Ur Epithelial Cells NONE SEEN /lpf (FEW) 05/13/17 19:50 Urine Bacteria NONE SEEN /hpf (NONE SEEN) 05/13/17 19:50 Ur Random Sodium 30 mmol/L 05/14/17 18:00 Urine Creatinine 36.4 mg/dl (Not Estab.) 05/14/17 18:00 Urine Microalbumin 363.5 ug/mL (Not Estab.) 05/14/17 18:00 Microalb/Creat Ratio 998.6 mg/g creat (0.0-30.0) H 05/14/17 18:00 Random Vancomycin 19.1 ug/mL (5.0-40.0) 05/19/17 04:50 Hepatitis A IgM Ab Negative (Negative) 05/21/17 04:46 Hep Bs Antigen Negative (Negative) 05/21/17 04:46 Hep B Core IgM Ab Negative (Negative) 05/21/17 04:46 Hepatitis C Antibody 0.1 s/co ratio (0.0-0.9) 05/21/17 04:46 Blood Type B POSITIVE 05/21/17 10:19 Antibody Screen NEGATIVE 05/21/17 10:19 Crossmatch See Detail 05/21/17 10:19 - Physical Exam Vitals and I&O: Vital Signs Temp 98.1 F 05/25/17 16:00 Pulse 67 05/25/17 18:00 Resp 12 05/25/17 18:00 BP 98/44 05/25/17 18:00 Pulse Ox 99 05/25/17 18:00 Intake & Output 05/24/17 05/25/17 05/25/17 18:59 06:59 18:59 Intake Total 1838 630 Output Total 45 75 Balance 1793 555 Weight (lbs) 68.237 kg 68.237 kg 67.086 kg Intake: Intake, IV Amount 1118 150 Fluconazole 100mg/50mL 50 100 mg In 50 ml @ 50 mls/ hr IV Q24HR YESSICA Rx#: [id number] Multivitamin Inj 5 ml In 1018 Dextrose 70% 242 ml In Amino Acids 15% 627 ml In Water, Sterile 945 ml @ 40 mls/hr IV .Q24H YESSICA Rx #:[id number] Tigecycline 50 mg In 100 100 Sodium Chloride 0.9% 100 ml @ 100 mls/hr IV Q12H YESSICA Rx#:[id number] TPN/PPN 520 480 Other 200 Output: Urine 45 75 Other: # Bowel Movements 0 0 Active Medications: Current Medications Acetaminophen (Tylenol) 650 mg PO Q4HR PRN PRN Reason: Pain Or Fever above 101 Stop: 07/14/17 15:15 Last Admin: 05/23/17 15:07 Dose: 650 mg Albuterol/Ipratropium (Duoneb Neb) 3 ml HHN Q4HRT [facility] Stop: 07/19/17 14:59 Last Admin: 05/25/17 15:23 Dose: 3 ml Atorvastatin Calcium (Lipitor) 10 mg GT HS YESSICA PRN Reason: Protocol Stop: 07/14/17 20:59 Last Admin: 05/24/17 20:59 Dose: 10 mg Budesonide (Pulmicort) 1 mg HHN BIDRT YESSICA Stop: 07/19/17 18:59 Last Admin: 05/25/17 07:37 Dose: 1 mg Carbidopa/Levodopa (Sinemet 25mg-100 Mg) 1 tab PO TID [facility] Stop: 07/14/17 08:59 Last Admin: 05/25/17 13:59 Dose: 1 tab Chlorhexidine Gluconate (Peridex) 15 ml MM 0800,2000 [facility] Stop: 07/23/17 19:59 Last Admin: 05/25/17 09:05 Dose: 15 ml Dextrose (D50w) 50 ml IVP PRN PRN; Protocol PRN Reason: HYPOGLYCEMIA Stop: 07/20/17 00:54 Last Admin: 05/22/17 23:34 Dose: 50 ml Diltiazem HCl (Cardizem) 10 mg IVP Q6HR PRN PRN Reason: HR >130 Stop: 07/22/17 17:09 Last Admin: 05/24/17 04:21 Dose: 10 mg Furosemide (Lasix) 40 mg IVP DAILY [facility] Stop: 07/18/17 08:59 Last Admin: 05/25/17 08:26 Dose: 40 mg Heparin Sodium (Porcine) (Heparin) 5,000 units SUBQ Q8HR YESSICA Stop: 07/22/17 20:59 Last Admin: 05/25/17 13:08 Dose: 5,000 units Norepinephrine Bitartrate 8 mg (/ Dextrose) 258 mls @ 0 mls/hr IV TITR PRN; Protocol; Titrate PRN Reason: BP MAINTENANCE (PER PROTOCOL) Stop: 07/19/17 12:29 Last Admin: 05/21/17 01:06 Dose: 10 mcg/min, 19.35 mls/hr Phenylephrine HCl 10 mg/ (Sodium Chloride) 250 mls @ 0 mls/hr IV TITR YESSICA; Per Protocol PRN Reason: Protocol Stop: 07/19/17 12:59 Tigecycline 50 mg/ Sodium (Chloride) 100 mls @ 100 mls/hr IV Q12H YESSICA Stop: 07/21/17 18:59 Last Admin: 05/25/17 06:37 Dose: 100 mls/hr Fluconazole (Diflucan) 100 mg in 50 mls @ 50 mls/hr IV Q24HR YESSICA Stop: 07/21/17 04:59 Last Infusion: 05/25/17 05:55 Dose: Infused Multivitamins/Minerals 5 ml/Dextrose/ Amino Acids/Electrolytes/ Sterile Water 1 ,819 mls @ 40 mls/hr IV .Q24H [facility] Stop: 07/22/17 15:59 Last Admin: 05/24/17 16:32 Dose: 40 mls/hr Insulin Aspart (Novolog Insulin Sliding Scale) 0 units SUBQ Q6HR YESSICA PRN Reason: Protocol Stop: 07/14/17 00:00 Last Admin: 05/25/17 18:09 Dose: Not Given Ipratropium Tinnie (Atrovent Neb 0.5mg/2.5ml) 0.5 mg HHN Q4HRT [facility] Stop: 07/17/17 14:59 Last Admin: 05/24/17 03:19 Dose: 0.5 mg Isosorbide Dinitrate (Isordil) 10 mg GT TID [facility] Stop: 07/14/17 08:59 Last Admin: 05/25/17 14:02 Dose: Not Given Lactobacillus Rhamnosus (Culturelle) 1 each PO DAILY [facility] Stop: 07/17/17 08:59 Last Admin: 05/25/17 08:25 Dose: 1 each Levetiracetam (Keppra) 250 mg NG BID [facility] Stop: 07/14/17 08:59 Last Admin: 05/25/17 17:06 Dose: 250 mg Lorazepam (Ativan) 1 mg IVP Q4H PRN; Protocol PRN Reason: Agitation Stop: 07/19/17 09:02 Last Admin: 05/25/17 01:02 Dose: 1 mg Metoclopramide HCl (Reglan) 5 mg IVP TID [facility] Stop: 07/20/17 20:59 Last Admin: 05/25/17 13:59 Dose: 5 mg Metoprolol Tartrate (Lopressor) 50 mg GT Q8H YESSICA Stop: 07/18/17 08:59 Last Admin: 05/25/17 17:05 Dose: 50 mg Miscellaneous (Vte Chemical Prophylaxis Screen/ Admission) 1 ea [facility] PRN PRN PRN Reason: PROTOCOL Stop: 07/14/17 09:25 Miscellaneous (Clinical Monitoring) 1 ea MC DAILY PRN PRN Reason: RENAL Stop: 07/15/17 12:32 Miscellaneous (Probiotic Screen) 1 ea MC PRN PRN PRN Reason: PROTOCOL Stop: 07/16/17 09:33 Miscellaneous (Tpn Per Pharmacy) 1 ea MC PRN PRN PRN Reason: PROTOCOL Stop: 07/24/17 15:59 Mupirocin (Bactroban Oint) 1 appl TP BID YESSICA Stop: 07/14/17 16:59 Last Admin: 05/25/17 17:11 Dose: 1 appl Pantoprazole Sodium (Protonix) 40 mg GT DAILY YESSICA Stop: 07/14/17 08:59 Last Admin: 05/25/17 08:25 Dose: 40 mg General: no acute distress, well developed, well nourished HEENT: atraumatic, normocephalic, PERRLA, EOMI Neck: supple, no thyromegaly Cardiovascular: S1S2, regular Lungs: clear to percussion, crackles Abdomen: soft, no tender Extremities: no cyanosis, no clubbing Skin: intact - Procedures Procedures: Procedures Procedure Code Date INSERT EMERGENCY AIRWAY 62448 05/13/17 INSERT TUNNELED CV CATH 97369 05/13/17 INSERTION OF ENDOTRACHEAL AIRWAY INTO TRACHEA, VIA OPENING [id number] 05/13/17 INSERTION OF INFUSION DEV INTO R FEMOR VEIN, PERC APPROACH 54HN83S 05/13/17 RESPIRATORY VENTILATION, LESS THAN 24 CONSECUTIVE HOURS [id number] 05/13/17 VENT MGMT INPAT INIT DAY 92614 05/13/17 Infectious Disease Assmt/Plan - Problem List Patient Problems: All Active Problems COUGH AND CONGESTION (Acute) - Assessment Assessment: 1. Pneuimonia.? Aspiration. 2. NICK. 3. CVA. 4. CHF. 5. CKD4. NICK mild rise in creatinine. 6. Afib with rapid ventricular response. Plan: Continue tygacil D5/10.. Nutritional Asmnt/Malnutr-PDOC - Dietary Evaluation Malnutrition Findings (Please click <Entered> for more info): Nutritional Asmnt/Malnutrition Start: 05/15/17 13: 56 Text: Status: Complete Freq: Document 05/15/17 13:56 GSTHALIA (Rec: 05/15/17 14:18 GSTHALIA [email or web address]) Nutritional Asmnt/Malnutrition Patient General Information Nutritional Screening High Risk Screening Diagnosis PNA, NICK, icnreasing renal failure, CVA, CHF, DM Pertinent Medical Hx/Surgical Hx CVA, dementia, afib, CAD, HTN, dyslipidemia, epilepsy, GERD, aspiration PNA, DM, CKD, dehydration, C. diff, anemia D Subjective Information 86 year old male from SNF. Pt greeted RD. Pt is overall thin , moderate to severe wasting to chest, clavicles, extremities. Observed Glytrol running at 60ml/hr x20hrs during visit. Unable to obtain CBW due to bedscale not calibrated. Discussed with YVETTE Farooq regarding tube feeding recommendations. Current Diet Order/ Nutrition Support Glytrol at 60ml/hr x 20hrs, providing 1200kcal 54g protein Pertinent Medications Lipitor, Novolog, Levemir, Cephulac, Morphine, Protonix, Nacl 0.9% Pertinent Labs 05/13: potassium 5.3H, BUN 80H, creatinine 2.4H, glucose 103 05/15: potassium WNL, BUN 70H, creatinine 2.4H, glucose 239H, A1c 6.1H, phosphorus 5.4H Nutritional Hx/Data Height 1.68 m Height (Calculated Centimeters) 167.6 Current Weight (lbs) 65.771 kg Weight (Calculated Kilograms) 65.8 Weight (Calculated Grams) 47328.9 [place] Body Weight 142 Weight Status Approriate GI Symptoms Difficult in: Swallowing Cultural/Ethnic/[employer]ism Belief [facility]: Glucerna 1.2 at 85ml/hr x 20hrs, providing 2040kcal, promote weight gain. Skin Integrity/Comment: Gee 12. Skin intact. Estimated Nutritional Goals Calories/Kcals/Kg CBW 145lb/65.9kg Kcals Calculated 1976-7kcal (30-35kcal/kg) Protein Calculated 46-92g (0.7-1.4g/kg, renal vs moderate to severe wasting) Fluid: ml Per MD (renal) Nutritional Problem 2. Problem Problem Impaired nutrient utilization related to Etiology NICK, hx CKD aeb Signs/Symptoms: "increasing renal failure," potaasum 5.3H on adm, BUN 70H, pole classifier 2.4H, phosphorus 5.4H 1. Problem Problem Inadequate intake from enteral nutrition infusion related to Etiology estimated nutritional needs aeb Signs/Symptoms: providing to meet 61% lower end kcal needs Intervention/Recommendation Comments 1. Recommend Novasource Renal at 50ml/hr x 20hrs, providing 2000kcal and 91g protein. Current order Glytrol at 60ml/ hr x 20hrs is only providing 1200kcal, pt recieves 2040kcal at [facility]. Expected Outcomes/Goals Expected Outcomes/Goals 1. Pt to meet at least 100% of estimated nutritional needs on tube feeding with tolerance .
--- NOTE | 2017-05-25 19:21 | Progress Notes ---
DATE: 05/25/2017 PROBLEM LIST: 1.Status post CPR. 2.Pulmonary edema. 3.Possibly vent-associated pneumonia. 4.Acute renal failure, on hemodialysis. SYMPTOMS: The patient is sleepy, hardly arousable, no respiratory distress. Currently undergoing dialysis. PHYSICAL EXAMINATION: VITAL SIGNS: Temperature is 98.1, blood pressure 112/51, saturation 98 on 40% of oxygen with SIMV 4. NECK: Veins not visualized. CHEST: Shows occasional rhonchi with diminished air entry. HEART: Regular. ABDOMEN: Soft, nontender. The patient's sputum from before Acinetobacter baumannii and the second culture a couple of days ago, shows Staph aureus, repeat one is pending done 2 days ago. LABORATORY DATA: White count is 13.8, hemoglobin 8.4. ABG shows mixed acidemia, respiratory with metabolic and patient's BUN is 81. Creatinine is 3.2. ASSESSMENT: The patient has a mixed acidemia. PLANS AND SUGGESTIONS: We will increase her backup rate little bit, continue rest of other treatment. We will follow through chest x-ray, etc. and go from there. JOB# [id number]
[2017-05-25] MEDS: TPN 10%-70% CUSTOM IV SCH (20:01)
[2017-05-25] MEDS: Atorvastatin Calcium 10 MG TAB GT SCH (21:08)
[2017-05-26] MEDS: INSULIN ASPART SLIDING SCALE 100 UNITS/ML UNIT SUBQ SCH ×4 (00:18→18:29)
[2017-05-26] MEDS ORDERED: Piperacillin Sodium/Tazobact 3.375 gm Vial IV ONE ×2 (00:26→00:27)
[2017-05-26] MEDS: Albuterol/Ipratropium Neb 3 ML AERS HHN SCH ×5 (03:21→23:02)
[2017-05-26] MEDS: Fluconazole 100mg/50mL 100 MG/50 ML BOTTLE IV SCH (04:19)
[2017-05-26 04:47] LABS: MEAN PLATELET VOLUME 7.7 fl
[2017-05-26 04:49] LABS: HEMATOCRIT 25.2 % (39.0-49.0); HEMOGLOBIN 8.4 gm/dL (12.6-17.4); MEAN CELL VOLUME 84.9 fl (80-99); MEAN CORPUSCULAR HEMOGLOBIN 28.2 pg (27.0-31.0); MEAN CORPUSCULAR HGB CONC 33.2 pg (28.0-36.0); PLATELET COUNT 205 Th/cmm (150-400); RED BLOOD COUNT 2.96 Mil/cmm (3.80-5.80); RED CELL DISTRIBUTION WIDTH 16.1 % (11.5-20.0)
[2017-05-26 05:03] LABS: WHITE BLOOD COUNT 10.8 Th/cmm (4.8-10.8)
[2017-05-26 05:06] LABS: ALB/GLOB RATIO 0.9 (1.0-1.8); ALKALINE PHOSPHATASE 93 U/L (34-104); ANION GAP 12.6 (7.0-16.0); BILIRUBIN,TOTAL 1.1 mg/dL (0.3-1.0); BUN - UREA NITROGEN 69 mg/dL (7-25); BUN/CREATININE RATIO 27.6; CALCIUM SERUM 8.6 mg/dL (8.6-10.3); CARBON DIOXIDE 24.5 mEq/L (21.0-31.0); CHLORIDE 103 mEq/L (98-107); CREATININE - SERUM 2.5 mg/dL (0.7-1.3); GLUCOSE 239 mg/dL (70-105); MAGNESIUM 1.9 mg/dL (1.9-2.7); PHOSPHOROUS 4.5 mg/dL (2.5-5.0); POTASSIUM SERUM 4.1 mEq/L (3.5-5.1); SGOT 66 U/L (13-39); SGPT/ALT 5 U/L (7-52); SODIUM SERUM 136 mEq/L (136-145)
[2017-05-26 06:08] LABS: BAND NEUTROPHILE 2 % (0-10); NEUTROPHILS 89 % (40-80); TOTAL CELLS COUNTED 100
[2017-05-26 06:09] LABS: PLATELET ESTIMATE ADEQUATE (NORMAL); PLATELET MORPHOLOGY NORMAL (NORMAL)
[2017-05-26] MEDS: Budesonide 0.5 Mg/2 mL Ud HHN SCH ×2 (07:08→19:03)
[2017-05-26] MEDS: Pantoprazole 40 mg/Packet GT SCH (08:29)
[2017-05-26] MEDS: Lactobacillus Rhamnosus 10 Billion CFU Capsule PO SCH (08:30)
[2017-05-26] MEDS: Metoclopramide 5 mg/mL 2mL Vial IVP SCH ×3 (08:30→21:41)
[2017-05-26] MEDS: Levetiracetam 500 mg/5mL 5mL UDC NG SCH ×2 (08:32→16:56)
[2017-05-26] MEDS: Chlorhexidine Gluconate 0.12% 15mL Mouthwash MM SCH ×2 (08:41→20:18)
[2017-05-26 09:31] LABS: BE(B) 0.1 mEq/L (-3.0-3.0); pH 7.34 (7.35-7.45)
[2017-05-26 09:32] LABS: ABG SOURCE Arterial; ALLEN TEST YES; CRITICAL VALUES REPORTED BY SH; FIO2 40; MECH RATE 12; MECH VT 500; PS 15
--- NOTE | 2017-05-26 09:57 | Diagnostic Imaging Report ---
Portable chest x-ray HISTORY: Shortness of breath, congestive heart failure Compared with the prior exam of May 25, 2017, no change in bilateral infiltrates (left greater than right). Evidence of persistent bilateral pleural effusions (left greater than right). An endotracheal tube tip is approximately 3.0 cm above the matias. IMPRESSION: 1. Little change in the cardiopulmonary status as noted above.
--- NOTE | 2017-05-26 13:51 | General Progress Note ---
Subjective - Review of Systems Service Date: 05/26/17 Subjective: sleeping, on vent, nonverbal Objective - Results Result Diagrams: 05/26/17 04:40 05/26/17 04:40 Recent Labs: Laboratory Last Values WBC 10.8 Th/cmm (4.8-10.8) D 05/26/17 04:40 RBC 2.96 Mil/cmm (3.80-5.80) L 05/26/17 04:40 Hgb 8.4 gm/dL (12.6-17.4) L 05/26/17 04:40 Hct 25.2 % (39.0-49.0) L 05/26/17 04:40 MCV 84.9 fl (80-99) 05/26/17 04:40 MCH 28.2 pg (27.0-31.0) 05/26/17 04:40 MCHC Differential 33.2 pg (28.0-36.0) 05/26/17 04:40 RDW 16.1 % (11.5-20.0) 05/26/17 04:40 Plt Count 205 Th/cmm (150-400) 05/26/17 04:40 MPV 7.7 fl 05/26/17 04:40 Neutrophils % SANITARIAN 05/24/17 04:49 Band Neutrophils % 2 % (0-10) 05/26/17 04:40 Lymphocytes % SANITARIAN 05/24/17 04:49 Monocytes % SANITARIAN 05/24/17 04:49 Eosinophils % SANITARIAN 05/24/17 04:49 Basophils % SANITARIAN 05/24/17 04:49 Neutrophils (Manual) 89 % (40-80) H 05/26/17 04:40 Lymphocytes 5 % (20-50) L 05/26/17 04:40 Monocytes 4 % (2-10) 05/26/17 04:40 Eosinophils 0 % (0-5) 05/24/17 04:49 Basophils 0 % (0-3) 05/24/17 04:49 Metamyelocytes 1 % (0-0) H 05/22/17 04:44 Toxic Granulation 1+ 05/23/17 04:48 Platelet Estimate ADEQUATE (NORMAL) 05/26/17 04:40 Platelet Morphology NORMAL (NORMAL) 05/26/17 04:40 Anisocytosis 1+ 05/22/17 04:44 RBC Morph Micro Appear NORMAL (NORMAL) 05/26/17 04:40 Eos Smear Source URINE 05/14/17 18:00 Eos Smear Total Cells FEW EOSINOPHILS SEEN (NONE SEEN) 05/14/17 18:00 PT 11.9 SECONDS (9.5-11.5) H 05/13/17 17:42 INR 1.13 (0.5-1.4) 05/13/17 17:42 PTT (Actin FS) 30.5 SECONDS (26.0-38.0) 05/15/17 12:30 Specimen Source Arterial 05/26/17 09:00 Sample Site Right Radial 05/26/17 09:00 pH 7.34 (7.35-7.45) L 05/26/17 09:00 pCO2 49.0 mmHg (35.0-45.0) H 05/26/17 09:00 pO2 92.0 mmHg (80.0-100.0) 05/26/17 09:00 HCO3 25.0 mEq/L (20.0-26.0) 05/26/17 09:00 Base Excess 0.1 mEq/L (-3.0-3.0) 05/26/17 09:00 O2 Saturation 97.0 % (92.0-100.0) 05/26/17 09:00 Fel[place]o Test YES 05/26/17 09:00 Vent Rate 12 05/26/17 09:00 Inspired O2 40 05/26/17 09:00 Tidal Volume 500 05/26/17 09:00 PEEP NA 05/26/17 09:00 Pressure (ins/psv/peep) 15 05/26/17 09:00 Critical Value SH 05/26/17 09:00 Sodium 136 mEq/L (136-145) 05/26/17 04:40 Potassium 4.1 mEq/L (3.5-5.1) 05/26/17 04:40 Chloride 103 mEq/L (98-107) 05/26/17 04:40 Carbon Dioxide 24.5 mEq/L (21.0-31.0) 05/26/17 04:40 Anion Gap 12.6 (7.0-16.0) 05/26/17 04:40 BUN 69 mg/dL (7-25) H 05/26/17 04:40 Creatinine 2.5 mg/dL (0.7-1.3) H 05/26/17 04:40 Est GFR ( Amer) TNP 05/26/17 04:40 Est GFR (Non-Af Amer) TNP 05/26/17 04:40 BUN/Creatinine Ratio 27.6 05/26/17 04:40 Glucose 239 mg/dL (70-105) H 05/26/17 04:40 POC Glucose 194 MG/DL (70 - 105) H 05/26/17 12:06 Hemoglobin A1c % 6.1 % (4.0-6.0) H 05/15/17 06:30 Plasma/Ser Osmolality 301 mOsmol/kg (280-301) 05/14/17 18:20 Whole Bld Lactic Acid 1.58 mmol/L (0.60-1.99) 05/13/17 17:42 Uric Acid 7.7 mg/dL (4.4-7.6) H 05/15/17 06:30 Calcium 8.6 mg/dL (8.6-10.3) 05/26/17 04:40 Phosphorus 4.5 mg/dL (2.5-5.0) 05/26/17 04:40 Magnesium 1.9 mg/dL (1.9-2.7) 05/26/17 04:40 Total Bilirubin 1.1 mg/dL (0.3-1.0) H 05/26/17 04:40 Direct Bilirubin 0.09 mg/dL (0.0-0.2) 05/19/17 04:50 AST 66 U/L (13-39) H 05/26/17 04:40 ALT 5 U/L (7-52) L 05/26/17 04:40 Alkaline Phosphatase 93 U/L (34-104) 05/26/17 04:40 Ammonia 65 umol/L (16-53) H 05/19/17 04:50 Creatine Kinase 35 U/L (30-223) 05/16/17 23:06 Troponin I 0.02 ng/mL (0.01-0.05) 05/16/17 23:06 B-Natriuretic Peptide 739.0 pg/mL (5.0-100.0) H 05/23/17 04:48 Total Protein 5.5 gm/dL (6.0-8.3) L 05/26/17 04:40 Albumin 2.6 gm/dL (4.2-5.5) L 05/26/17 04:40 Globulin 2.9 gm/dL 05/26/17 04:40 Albumin/Globulin Ratio 0.9 (1.0-1.8) L 05/26/17 04:40 Prealbumin 9 mg/dL (9-32) 05/24/17 04:49 Triglycerides 47 mg/dL (<150) 05/24/17 04:49 Cholesterol 55 mg/dL (<200) 05/24/17 04:49 TSH 2.74 uIU/ml (0.34-5.60) 05/15/17 06:30 Urine Source CATH 05/13/17 19:50 Urine Color YELLOW 05/13/17 19:50 Urine Clarity CLOUDY (CLEAR) 05/13/17 19:50 Urine pH 6.0 05/13/17 19:50 Ur Specific [place] 1.015 (1.005-1.030) 05/13/17 19:50 Urine Protein 100 mg/dL (NEGATIVE) H 05/13/17 19:50 Urine Glucose (UA) NEGATIVE mg/dL (NEGATIVE) 05/13/17 19:50 Urine Ketones NEGATIVE mg/dL (NEGATIVE) 05/13/17 19:50 Urine Blood LARGE (NEGATIVE) H 05/13/17 19:50 Urine Nitrate NEGATIVE (NEGATIVE) 05/13/17 19:50 Urine Bilirubin NEGATIVE (NEGATIVE) 05/13/17 19:50 Urine Urobilinogen 0.2 E.U./dL (0.2 - 1.0) 05/13/17 19:50 Ur Leukocyte Esterase LARGE (NEGATIVE) H 05/13/17 19:50 Urine RBC 50-100 /hpf (0-5) H 05/13/17 19:50 Urine WBC >100 /hpf (0-5) H 05/13/17 19:50 Ur Epithelial Cells NONE SEEN /lpf (FEW) 05/13/17 19:50 Urine Bacteria NONE SEEN /hpf (NONE SEEN) 05/13/17 19:50 Ur Random Sodium 30 mmol/L 05/14/17 18:00 Urine Creatinine 36.4 mg/dl (Not Estab.) 05/14/17 18:00 Urine Microalbumin 363.5 ug/mL (Not Estab.) 05/14/17 18:00 Microalb/Creat Ratio 998.6 mg/g creat (0.0-30.0) H 05/14/17 18:00 Stool Occult Blood NEGATIVE (NEGATIVE) 05/25/17 17:49 Random Vancomycin 19.1 ug/mL (5.0-40.0) 05/19/17 04:50 Hepatitis A IgM Ab Negative (Negative) 05/21/17 04:46 Hep Bs Antigen Negative (Negative) 05/21/17 04:46 Hep B Core IgM Ab Negative (Negative) 05/21/17 04:46 Hepatitis C Antibody 0.1 s/co ratio (0.0-0.9) 05/21/17 04:46 Blood Type B POSITIVE 05/21/17 10:19 Antibody Screen NEGATIVE 05/21/17 10:19 Crossmatch See Detail 05/21/17 10:19 - Physical Exam Vitals and I&O: Vital Signs Temp 96.7 F 05/26/17 12:00 Pulse 89 05/26/17 12:58 Resp 12 05/26/17 12:00 BP 145/67 05/26/17 12:00 Pulse Ox 98 05/26/17 12:58 Intake & Output 05/25/17 05/26/17 05/26/17 18:59 06:59 18:59 Intake Total 730 1198.667 100 Output Total 125 Balance 605 1198.667 100 Weight (lbs) 66.95 kg 66.769 kg Intake: Intake, IV Amount 100 1198.667 100 Multivitamin Inj 5 ml In 1098.667 Dextrose 70% 242 ml In Amino Acids 15% 627 ml In Water, Sterile 945 ml @ 40 mls/hr IV .Q24H YESSICA Rx #:[id number] Tigecycline 50 mg In 100 100 100 Sodium Chloride 0.9% 100 ml @ 100 mls/hr IV Q12H YESSICA Rx#:[id number] TPN/PPN 480 Other 150 Output: Urine 125 Other: # Bowel Movements 1 Stool Characteristics Soft Liquid Brown Active Medications: Current Medications Acetaminophen (Tylenol) 650 mg PO Q4HR PRN PRN Reason: Pain Or Fever above 101 Stop: 07/14/17 15:15 Last Admin: 05/23/17 15:07 Dose: 650 mg Albuterol/Ipratropium (Duoneb Neb) 3 ml HHN Q4HRT [facility] Stop: 07/19/17 14:59 Last Admin: 05/26/17 07:07 Dose: 3 ml Atorvastatin Calcium (Lipitor) 10 mg GT HS YESSICA PRN Reason: Protocol Stop: 07/14/17 20:59 Last Admin: 05/25/17 21:08 Dose: 10 mg Budesonide (Pulmicort) 1 mg HHN BIDRT YESSICA Stop: 07/19/17 18:59 Last Admin: 05/26/17 07:08 Dose: 1 mg Carbidopa/Levodopa (Sinemet 25mg-100 Mg) 1 tab PO TID YESSICA Stop: 07/14/17 08:59 Last Admin: 05/26/17 08:30 Dose: 1 tab Chlorhexidine Gluconate (Peridex) 15 ml MM 0800,1999 [facility] Stop: 07/23/17 19:59 Last Admin: 05/26/17 08:41 Dose: 15 ml Dextrose (D50w) 50 ml IVP PRN PRN; Protocol PRN Reason: HYPOGLYCEMIA Stop: 07/20/17 00:54 Last Admin: 05/22/17 23:34 Dose: 50 ml Diltiazem HCl (Cardizem) 10 mg IVP Q6HR PRN PRN Reason: HR >130 Stop: 07/22/17 17:09 Last Admin: 05/24/17 04:21 Dose: 10 mg Furosemide (Lasix) 40 mg IVP DAILY [facility] Stop: 07/18/17 08:59 Last Admin: 05/26/17 08:30 Dose: 40 mg Heparin Sodium (Porcine) (Heparin) 5,000 units SUBQ Q8HR YESSICA Stop: 07/22/17 20:59 Last Admin: 05/26/17 12:52 Dose: 5,000 units Norepinephrine Bitartrate 8 mg (/ Dextrose) 258 mls @ 0 mls/hr IV TITR PRN; Protocol; Titrate PRN Reason: BP MAINTENANCE (PER PROTOCOL) Stop: 07/19/17 12:29 Last Admin: 05/21/17 01:06 Dose: 10 mcg/min, 19.35 mls/hr Phenylephrine HCl 10 mg/ (Sodium Chloride) 250 mls @ 0 mls/hr IV TITR YESSICA; Per Protocol PRN Reason: Protocol Stop: 07/19/17 12:59 Tigecycline 50 mg/ Sodium (Chloride) 100 mls @ 100 mls/hr IV Q12H YESSICA Stop: 07/21/17 18:59 Last Infusion: 05/26/17 10:30 Dose: Infused Fluconazole (Diflucan) 100 mg in 50 mls @ 50 mls/hr IV Q24HR YESSICA Stop: 07/21/17 04:59 Last Admin: 05/26/17 04:19 Dose: 50 mls/hr Multivitamins/Minerals 5 ml/Dextrose/ Amino Acids/Electrolytes/ Sterile Water 1 ,819 mls @ 40 mls/hr IV .Q24H YESSICA Stop: 05/26/17 15:59 Last Admin: 05/25/17 20:01 Dose: 40 mls/hr Multivitamins/Minerals 10 ml/Amino Acids/Electrolytes/Dextrose/ Fat Emulsion Intravenous 960 mls @ 40 mls/hr IV .Q24H [facility] Stop: 07/25/17 15:59 Insulin Aspart (Novolog Insulin Sliding Scale) 0 units SUBQ Q6HR YESSICA PRN Reason: Protocol Stop: 07/14/17 00:00 Last Admin: 05/26/17 12:09 Dose: Not Given Ipratropium [place] (Atrovent Neb 0.5mg/2.5ml) 0.5 mg HHN Q4HRT [facility] Stop: 07/17/17 14:59 Last Admin: 05/24/17 03:19 Dose: 0.5 mg Isosorbide Dinitrate (Isordil) 10 mg GT TID [facility] Stop: 07/14/17 08:59 Last Admin: 05/26/17 08:29 Dose: 10 mg Lactobacillus Rhamnosus (Culturelle) 1 each PO DAILY YESSICA Stop: 07/17/17 08:59 Last Admin: 05/26/17 08:30 Dose: 1 each Levetiracetam (Keppra) 250 mg NG BID [facility] Stop: 07/14/17 08:59 Last Admin: 05/26/17 08:32 Dose: 250 mg Lorazepam (Ativan) 1 mg IVP Q4H PRN; Protocol PRN Reason: Agitation Stop: 07/19/17 09:02 Last Admin: 05/25/17 01:02 Dose: 1 mg Metoclopramide HCl (Reglan) 5 mg IVP TID YESSICA Stop: 07/20/17 20:59 Last Admin: 05/26/17 08:30 Dose: 5 mg Metoprolol Tartrate (Lopressor) 50 mg GT Q8H YESSICA Stop: 07/18/17 08:59 Last Admin: 05/26/17 08:30 Dose: 50 mg Miscellaneous (Vte Chemical Prophylaxis Screen/ Admission) 1 ea MC PRN PRN PRN Reason: PROTOCOL Stop: 07/14/17 09:25 Miscellaneous (Clinical Monitoring) 1 ea MC DAILY PRN PRN Reason: RENAL Stop: 07/15/17 12:32 Miscellaneous (Probiotic Screen) 1 ea MC PRN PRN PRN Reason: PROTOCOL Stop: 07/16/17 09:33 Miscellaneous (Tpn Per Pharmacy) 1 ea MC PRN PRN PRN Reason: PROTOCOL Stop: 07/24/17 15:59 Mupirocin (Bactroban Oint) 1 appl TP BID YESSICA Stop: 07/14/17 16:59 Last Admin: 05/26/17 08:31 Dose: 1 appl Pantoprazole Sodium (Protonix) 40 mg GT DAILY YESSICA Stop: 07/14/17 08:59 Last Admin: 05/26/17 08:29 Dose: 40 mg General: No acute distress, no Alert HEENT: Mucous membr. moist/pink Neck: Supple, +2 carotid pulse wo bruit Cardiovascular: Regular rate, Other (afib with fluctuating heart rate) Lungs: Clear to auscultation (rales bilaterally), Other (occasional rhonchi, breathing is tight, fine expiratory wheeze) Abdomen: Soft Extremities: Edema Neurological: Sensation intact Skin: no Rash Psych/Mental Status: Mood NL - Procedures Procedures: Procedures Procedure Code Date INSERT EMERGENCY AIRWAY 21874 05/13/17 INSERT TUNNELED CV CATH 68228 05/13/17 INSERTION OF ENDOTRACHEAL AIRWAY INTO TRACHEA, VIA OPENING [id number] 05/13/17 INSERTION OF INFUSION DEV INTO R FEMOR VEIN, PERC APPROACH [id number] 05/13/17 RESPIRATORY VENTILATION, GREATER THAN 96 CONSECUTIVE HOURS [id number] 05/13/17 VENT MGMT INPAT INIT DAY 18069 05/13/17 Assessment/Plan - Problem List Patient Problems: All Active Problems COUGH AND CONGESTION (Acute) - Assessment Assessment: NICK on CKD, now on dialysis A LOC secondary to metabolic encephalopathy/medications Dehydration Essential hypertension with CKD COPD Chronic atrial fibrillation Status post CVA Aspiration pneumonia/dysphagia status post PEG Type 2 diabetes mellitus with CKD Acute Decompensated CHF Acute Resp Failure on Vent Bradycardia - Plan Plan: Lab - Result Diagrams 05/15/17 06:30 05/15/17 06:30 Current Medications Acetaminophen (Tylenol) 650 mg PO Q4HR PRN PRN Reason: Pain Or Fever above 101 Stop: 07/14/17 15:15 Last Admin: 05/15/17 16:21 Dose: 650 mg Albuterol Sulfate (Albuterol 2.5mg/3ml Neb Ud) 2.5 mg HHN Q6HRT YESSICA Stop: 07/14/17 00:59 Last Admin: 05/15/17 16:05 Dose: 2.5 mg Atorvastatin Calcium (Lipitor) 10 mg GT HS YESSICA PRN Reason: Protocol Stop: 07/14/17 20:59 Carbidopa/Levodopa (Sinemet 25mg-100 Mg) 1 tab PO TID YESSICA Stop: 07/14/17 08:59 Last Admin: 05/15/17 14:02 Dose: 1 tab Heparin Sodium (Porcine) (Heparin) 5,000 units SUBQ Q8H YESSICA Stop: 07/14/17 14:59 Last Admin: 05/15/17 16:24 Dose: 5,000 units Sodium Chloride (Nacl 0.9%) 1,000 mls @ 60 mls/hr IV .[id number] YESSICA Stop: 07/13/17 06:40 Last Admin: 05/14/17 17:16 Dose: 60 mls/hr Azithromycin 250 mg/ Sodium (Chloride) 250 mls @ 250 mls/hr IV Q24HR YESSICA Stop: 05/20/17 08:59 Piperacillin Sod/Tazobactam (Sod 3.375 gm/ Sodium Chloride) 50 mls @ 100 mls/ hr IV Q8HR YESSICA Stop: 07/14/17 15:14 Last Admin: 05/15/17 15:57 Dose: 100 mls/hr Insulin Aspart (Novolog Insulin Sliding Scale) 0 units SUBQ Q6HR YESSICA PRN Reason: Protocol Stop: 07/14/17 00:00 Last Admin: 05/15/17 17:09 Dose: Not Given Insulin Detemir (Levemir Insulin) 14 units SUBQ DAILY YESSICA PRN Reason: Protocol Stop: 07/15/17 08:59 Isosorbide Dinitrate (Isordil) 10 mg GT TID YESSICA Stop: 07/14/17 08:59 Last Admin: 05/15/17 14:02 Dose: 10 mg Lactulose (Cephulac) 20 gm PO TID YESSICA Stop: 07/14/17 08:59 Last Admin: 05/15/17 14:02 Dose: 20 gm Levetiracetam (Keppra) 250 mg NG BID YESSICA Stop: 07/14/17 08:59 Last Admin: 05/15/17 16:23 Dose: 250 mg Metoprolol Tartrate (Lopressor) 37.5 mg GT BID YESSICA Stop: 07/14/17 00:14 Last Admin: 05/15/17 16:22 Dose: 37.5 mg Miscellaneous (Vte Chemical Prophylaxis Screen/ Admission) 1 ea MC PRN PRN PRN Reason: PROTOCOL Stop: 07/14/17 09:25 Morphine Sulfate (Morphine) 2 mg IVP Q3H PRN PRN Reason: PAIN Stop: 07/13/17 19:46 Last Admin: 05/14/17 21:16 Dose: 2 mg Mupirocin (Bactroban Oint) 1 appl TP BID YESSICA Stop: 07/14/17 16:59 Last Admin: 05/15/17 16:24 Dose: 1 appl Pantoprazole Sodium (Protonix) 40 mg GT DAILY YESSICA Stop: 07/14/17 08:59 Last Admin: 05/15/17 08:36 Dose: 40 mg Rifaximin (Xifaxan) 550 mg GT BID YESSICA Stop: 07/14/17 08:59 Last Admin: 05/15/17 16:23 Dose: 550 mg Kidney function decreased with a BUN 69 and creatinine of 2.5 Sodium up to 136 White count down to 10.8 on Zosyn Chest x-ray still w/ b/l infiltrates, right effusion, and elevated BNP of 739 Reviewed his meds Follow-up electrolytes currently on PPN @ 40 ml /hr prognosis poor Hgb/Hct down to 8.4 over 25.2 schedule for HD tomorrow since still has chf on cxr & elevated BNP Follow-up electrolytes, CBC and chest x-ray in a.m. Lab - Result Diagrams 05/24/17 04:49 05/24/17 04:49 addendum: Poor response to diuretics, w/ worsening CHF, BNP level developed resp failure, required intubation worsening cardio-renal syndrome discussed w/ grandson Pedro, about poor prognosis but still want to proceed w/ dialysis Nutritional Asmnt/Malnutr-PDOC - Dietary Evaluation Malnutrition Findings (Please click <Entered> for more info): Nutritional Asmnt/Malnutrition Start: 05/15/17 13: 56 Text: Status: Complete Freq: Document 05/15/17 13:56 GSUN (Rec: 05/15/17 14:18 GSUN [id number]) Nutritional Asmnt/Malnutrition Patient General Information Nutritional Screening High Risk Screening Diagnosis PNA, NICK, icnreasing renal failure, CVA, CHF, DM Pertinent Medical Hx/Surgical Hx CVA, dementia, afib, CAD, HTN, dyslipidemia, epilepsy, GERD, aspiration PNA, DM, CKD, dehydration, C. diff, anemia D Subjective Information 86 year old male from SNF. Pt greeted RD. Pt is overall thin , moderate to severe wasting to chest, clavicles, extremities. Observed Glytrol running at 60ml/hr x20hrs during visit. Unable to obtain CBW due to bedscale not calibrated. Discussed with YVETTE Farooq regarding tube feeding recommendations. Current Diet Order/ Nutrition Support Glytrol at 60ml/hr x 20hrs, providing 1200kcal 54g protein Pertinent Medications Lipitor, Novolog, Levemir, Cephulac, Morphine, Protonix, Nacl 0.9% Pertinent Labs 05/13: potassium 5.3H, BUN 80H, creatinine 2.4H, glucose 103 05/15: potassium WNL, BUN 70H, creatinine 2.4H, glucose 239H, A1c 6.1H, phosphorus 5.4H Nutritional Hx/Data Height 1.68 m Height (Calculated Centimeters) 167.6 Current Weight (lbs) 65.771 kg Weight (Calculated Kilograms) 65.8 Weight (Calculated Grams) 81990.9 [place] Body Weight 142 Weight Status Approriate GI Symptoms Difficult in: Swallowing Cultural/Ethnic/Congregation Belief [facility]: Glucerna 1.2 at 85ml/hr x 20hrs, providing 2040kcal, promote weight gain. Skin Integrity/Comment: Gee 12. Skin intact. Estimated Nutritional Goals Calories/Kcals/Kg CBW 145lb/65.9kg Kcals Calculated 1976-2306kcal (30-35kcal/kg) Protein Calculated 46-92g (0.7-1.4g/kg, renal vs moderate to severe wasting) Fluid: ml Per MD (renal) Nutritional Problem 2. Problem Problem Impaired nutrient utilization related to Etiology NICK, hx CKD aeb Signs/Symptoms: "increasing renal failure," potaasum 5.3H on adm, BUN 70H, regulatory compliance coordinator 2.4H, phosphorus 5.4H 1. Problem Problem Inadequate intake from enteral nutrition infusion related to Etiology estimated nutritional needs aeb Signs/Symptoms: providing to meet 61% lower end kcal needs Intervention/Recommendation Comments 1. Recommend Novasource Renal at 50ml/hr x 20hrs, providing 2000kcal and 91g protein. Current order Glytrol at 60ml/ hr x 20hrs is only providing 1200kcal, pt recieves 2040kcal at [facility]. Expected Outcomes/Goals Expected Outcomes/Goals 1. Pt to meet at least 100% of estimated nutritional needs on tube feeding with tolerance .
--- NOTE | 2017-05-26 14:09 | Infectious Disease Prog Note ---
Infectious Disease Subjective - Review of Systems Service Date: 05/26/17 Subjective: No new change. No fever. intubated orally, on vent support. Infectious Disease Objective - Results Result Diagrams: 05/26/17 04:40 05/26/17 04:40 Recent Labs: Laboratory Last Values WBC 10.8 Th/cmm (4.8-10.8) D 05/26/17 04:40 RBC 2.96 Mil/cmm (3.80-5.80) L 05/26/17 04:40 Hgb 8.4 gm/dL (12.6-17.4) L 05/26/17 04:40 Hct 25.2 % (39.0-49.0) L 05/26/17 04:40 MCV 84.9 fl (80-99) 05/26/17 04:40 MCH 28.2 pg (27.0-31.0) 05/26/17 04:40 MCHC Differential 33.2 pg (28.0-36.0) 05/26/17 04:40 RDW 16.1 % (11.5-20.0) 05/26/17 04:40 Plt Count 205 Th/cmm (150-400) 05/26/17 04:40 MPV 7.7 fl 05/26/17 04:40 Neutrophils % [employer] 05/24/17 04:49 Band Neutrophils % 2 % (0-10) 05/26/17 04:40 Lymphocytes % [employer] 05/24/17 04:49 Monocytes % [employer] 05/24/17 04:49 Eosinophils % [employer] 05/24/17 04:49 Basophils % [employer] 05/24/17 04:49 Neutrophils (Manual) 89 % (40-80) H 05/26/17 04:40 Lymphocytes 5 % (20-50) L 05/26/17 04:40 Monocytes 4 % (2-10) 05/26/17 04:40 Eosinophils 0 % (0-5) 05/24/17 04:49 Basophils 0 % (0-3) 05/24/17 04:49 Metamyelocytes 1 % (0-0) H 05/22/17 04:44 Toxic Granulation 1+ 05/23/17 04:48 Platelet Estimate ADEQUATE (NORMAL) 05/26/17 04:40 Platelet Morphology NORMAL (NORMAL) 05/26/17 04:40 Anisocytosis 1+ 05/22/17 04:44 RBC Morph Micro Appear NORMAL (NORMAL) 05/26/17 04:40 Eos Smear Source URINE 05/14/17 18:00 Eos Smear Total Cells FEW EOSINOPHILS SEEN (NONE SEEN) 05/14/17 18:00 PT 11.9 SECONDS (9.5-11.5) H 05/13/17 17:42 INR 1.13 (0.5-1.4) 05/13/17 17:42 PTT (Actin FS) 30.5 SECONDS (26.0-38.0) 05/15/17 12:30 Specimen Source Arterial 05/26/17 09:00 Sample Site Right Radial 05/26/17 09:00 pH 7.34 (7.35-7.45) L 05/26/17 09:00 pCO2 49.0 mmHg (35.0-45.0) H 05/26/17 09:00 pO2 92.0 mmHg (80.0-100.0) 05/26/17 09:00 HCO3 25.0 mEq/L (20.0-26.0) 05/26/17 09:00 Base Excess 0.1 mEq/L (-3.0-3.0) 05/26/17 09:00 O2 Saturation 97.0 % (92.0-100.0) 05/26/17 09:00 Feliciano Test YES 05/26/17 09:00 Vent Rate 12 05/26/17 09:00 Inspired O2 40 05/26/17 09:00 Tidal Volume 500 05/26/17 09:00 PEEP NA 05/26/17 09:00 Pressure (ins/psv/peep) 15 05/26/17 09:00 Critical Value SH 05/26/17 09:00 Sodium 136 mEq/L (136-145) 05/26/17 04:40 Potassium 4.1 mEq/L (3.5-5.1) 05/26/17 04:40 Chloride 103 mEq/L (98-107) 05/26/17 04:40 Carbon Dioxide 24.5 mEq/L (21.0-31.0) 05/26/17 04:40 Anion Gap 12.6 (7.0-16.0) 05/26/17 04:40 BUN 69 mg/dL (7-25) H 05/26/17 04:40 Creatinine 2.5 mg/dL (0.7-1.3) H 05/26/17 04:40 Est GFR ( Amer) TNP 05/26/17 04:40 Est GFR (Non-Af Amer) TNP 05/26/17 04:40 BUN/Creatinine Ratio 27.6 05/26/17 04:40 Glucose 239 mg/dL (70-105) H 05/26/17 04:40 POC Glucose 194 MG/DL (70 - 105) H 05/26/17 12:06 Hemoglobin A1c % 6.1 % (4.0-6.0) H 05/15/17 06:30 Plasma/Ser Osmolality 301 mOsmol/kg (280-301) 05/14/17 18:20 Whole Bld Lactic Acid 1.58 mmol/L (0.60-1.99) 05/13/17 17:42 Uric Acid 7.7 mg/dL (4.4-7.6) H 05/15/17 06:30 Calcium 8.6 mg/dL (8.6-10.3) 05/26/17 04:40 Phosphorus 4.5 mg/dL (2.5-5.0) 05/26/17 04:40 Magnesium 1.9 mg/dL (1.9-2.7) 05/26/17 04:40 Total Bilirubin 1.1 mg/dL (0.3-1.0) H 05/26/17 04:40 Direct Bilirubin 0.09 mg/dL (0.0-0.2) 05/19/17 04:50 AST 66 U/L (13-39) H 05/26/17 04:40 ALT 5 U/L (7-52) L 05/26/17 04:40 Alkaline Phosphatase 93 U/L (34-104) 05/26/17 04:40 Ammonia 65 umol/L (16-53) H 05/19/17 04:50 Creatine Kinase 35 U/L (30-223) 05/16/17 23:06 Troponin I 0.02 ng/mL (0.01-0.05) 05/16/17 23:06 B-Natriuretic Peptide 739.0 pg/mL (5.0-100.0) H 05/23/17 04:48 Total Protein 5.5 gm/dL (6.0-8.3) L 05/26/17 04:40 Albumin 2.6 gm/dL (4.2-5.5) L 05/26/17 04:40 Globulin 2.9 gm/dL 05/26/17 04:40 Albumin/Globulin Ratio 0.9 (1.0-1.8) L 05/26/17 04:40 Prealbumin 9 mg/dL (9-32) 05/24/17 04:49 Triglycerides 47 mg/dL (<150) 05/24/17 04:49 Cholesterol 55 mg/dL (<200) 05/24/17 04:49 TSH 2.74 uIU/ml (0.34-5.60) 05/15/17 06:30 Urine Source CATH 05/13/17 19:50 Urine Color YELLOW 05/13/17 19:50 Urine Clarity CLOUDY (CLEAR) 05/13/17 19:50 Urine pH 6.0 05/13/17 19:50 Ur Specific [place] 1.015 (1.005-1.030) 05/13/17 19:50 Urine Protein 100 mg/dL (NEGATIVE) H 05/13/17 19:50 Urine Glucose (UA) NEGATIVE mg/dL (NEGATIVE) 05/13/17 19:50 Urine Ketones NEGATIVE mg/dL (NEGATIVE) 05/13/17 19:50 Urine Blood LARGE (NEGATIVE) H 05/13/17 19:50 Urine Nitrate NEGATIVE (NEGATIVE) 05/13/17 19:50 Urine Bilirubin NEGATIVE (NEGATIVE) 05/13/17 19:50 Urine Urobilinogen 0.2 E.U./dL (0.2 - 1.0) 05/13/17 19:50 Ur Leukocyte Esterase LARGE (NEGATIVE) H 05/13/17 19:50 Urine RBC 50-100 /hpf (0-5) H 05/13/17 19:50 Urine WBC >100 /hpf (0-5) H 05/13/17 19:50 Ur Epithelial Cells NONE SEEN /lpf (FEW) 05/13/17 19:50 Urine Bacteria NONE SEEN /hpf (NONE SEEN) 05/13/17 19:50 Ur Random Sodium 30 mmol/L 05/14/17 18:00 Urine Creatinine 36.4 mg/dl (Not Estab.) 05/14/17 18:00 Urine Microalbumin 363.5 ug/mL (Not Estab.) 05/14/17 18:00 Microalb/Creat Ratio 998.6 mg/g creat (0.0-30.0) H 05/14/17 18:00 Stool Occult Blood NEGATIVE (NEGATIVE) 05/25/17 17:49 Random Vancomycin 19.1 ug/mL (5.0-40.0) 05/19/17 04:50 Hepatitis A IgM Ab Negative (Negative) 05/21/17 04:46 Hep Bs Antigen Negative (Negative) 05/21/17 04:46 Hep B Core IgM Ab Negative (Negative) 05/21/17 04:46 Hepatitis C Antibody 0.1 s/co ratio (0.0-0.9) 05/21/17 04:46 Blood Type B POSITIVE 05/21/17 10:19 Antibody Screen NEGATIVE 05/21/17 10:19 Crossmatch See Detail 05/21/17 10:19 - Physical Exam Vitals and I&O: Vital Signs Temp 96.7 F 05/26/17 12:00 Pulse 89 05/26/17 12:58 Resp 12 05/26/17 12:00 BP 145/67 05/26/17 12:00 Pulse Ox 98 05/26/17 12:58 Intake & Output 05/25/17 05/26/17 05/26/17 18:59 06:59 18:59 Intake Total 730 1198.667 100 Output Total 125 Balance 605 1198.667 100 Weight (lbs) 66.95 kg 66.769 kg Intake: Intake, IV Amount 100 1198.667 100 Multivitamin Inj 5 ml In 1098.667 Dextrose 70% 242 ml In Amino Acids 15% 627 ml In Water, Sterile 945 ml @ 40 mls/hr IV .Q24H YESSICA Rx #:[id number] Tigecycline 50 mg In 100 100 100 Sodium Chloride 0.9% 100 ml @ 100 mls/hr IV Q12H YESSICA Rx#:[id number] TPN/PPN 480 Other 150 Output: Urine 125 Other: # Bowel Movements 1 Stool Characteristics Soft Liquid Brown Active Medications: Current Medications Acetaminophen (Tylenol) 650 mg PO Q4HR PRN PRN Reason: Pain Or Fever above 101 Stop: 07/14/17 15:15 Last Admin: 05/23/17 15:07 Dose: 650 mg Albuterol/Ipratropium (Duoneb Neb) 3 ml HHN Q4HRT [facility] Stop: 07/19/17 14:59 Last Admin: 05/26/17 07:07 Dose: 3 ml Atorvastatin Calcium (Lipitor) 10 mg GT HS YESSICA PRN Reason: Protocol Stop: 07/14/17 20:59 Last Admin: 05/25/17 21:08 Dose: 10 mg Budesonide (Pulmicort) 1 mg HHN BIDRT [facility] Stop: 07/19/17 18:59 Last Admin: 05/26/17 07:08 Dose: 1 mg Carbidopa/Levodopa (Sinemet 25mg-100 Mg) 1 tab PO TID [facility] Stop: 07/14/17 08:59 Last Admin: 05/26/17 08:30 Dose: 1 tab Chlorhexidine Gluconate (Peridex) 15 ml MM 0800,1999 [facility] Stop: 07/23/17 19:59 Last Admin: 05/26/17 08:41 Dose: 15 ml Dextrose (D50w) 50 ml IVP PRN PRN; Protocol PRN Reason: HYPOGLYCEMIA Stop: 07/20/17 00:54 Last Admin: 05/22/17 23:34 Dose: 50 ml Diltiazem HCl (Cardizem) 10 mg IVP Q6HR PRN PRN Reason: HR >130 Stop: 07/22/17 17:09 Last Admin: 05/24/17 04:21 Dose: 10 mg Furosemide (Lasix) 40 mg IVP DAILY [facility] Stop: 07/18/17 08:59 Last Admin: 05/26/17 08:30 Dose: 40 mg Heparin Sodium (Porcine) (Heparin) 5,000 units SUBQ Q8HR [facility] Stop: 07/22/17 20:59 Last Admin: 05/26/17 12:52 Dose: 5,000 units Norepinephrine Bitartrate 8 mg (/ Dextrose) 258 mls @ 0 mls/hr IV TITR PRN; Protocol; Titrate PRN Reason: BP MAINTENANCE (PER PROTOCOL) Stop: 07/19/17 12:29 Last Admin: 05/21/17 01:06 Dose: 10 mcg/min, 19.35 mls/hr Phenylephrine HCl 10 mg/ (Sodium Chloride) 250 mls @ 0 mls/hr IV TITR YESSICA; Per Protocol PRN Reason: Protocol Stop: 07/19/17 12:59 Tigecycline 50 mg/ Sodium (Chloride) 100 mls @ 100 mls/hr IV Q12H YESSICA Stop: 07/21/17 18:59 Last Infusion: 05/26/17 10:30 Dose: Infused Fluconazole (Diflucan) 100 mg in 50 mls @ 50 mls/hr IV Q24HR [facility] Stop: 07/21/17 04:59 Last Admin: 05/26/17 04:19 Dose: 50 mls/hr Multivitamins/Minerals 5 ml/Dextrose/ Amino Acids/Electrolytes/ Sterile Water 1 ,819 mls @ 40 mls/hr IV .Q24H [facility] Stop: 05/26/17 15:59 Last Admin: 05/25/17 20:01 Dose: 40 mls/hr Multivitamins/Minerals 10 ml/Amino Acids/Electrolytes/Dextrose/ Fat Emulsion Intravenous 960 mls @ 40 mls/hr IV .Q24H [facility] Stop: 07/25/17 15:59 Albumin Human (Albuminar 25%) 25 gm in 100 mls @ 50 mls/hr IV X1 ONE Stop: 05/27/17 15:52 Albumin Human (Albuminar 25%) 25 gm in 100 mls @ 50 mls/hr IV X1 ONE Stop: 05/27/17 15:53 Insulin Aspart (Novolog Insulin Sliding Scale) 0 units SUBQ Q6HR YESSICA PRN Reason: Protocol Stop: 07/14/17 00:00 Last Admin: 05/26/17 12:09 Dose: Not Given Ipratropium [place] (Atrovent Neb 0.5mg/2.5ml) 0.5 mg HHN Q4HRT YESSICA Stop: 07/17/17 14:59 Last Admin: 05/24/17 03:19 Dose: 0.5 mg Isosorbide Dinitrate (Isordil) 10 mg GT TID YESSICA Stop: 07/14/17 08:59 Last Admin: 05/26/17 08:29 Dose: 10 mg Lactobacillus Rhamnosus (Culturelle) 1 each PO DAILY YESSICA Stop: 07/17/17 08:59 Last Admin: 05/26/17 08:30 Dose: 1 each Levetiracetam (Keppra) 250 mg NG BID [facility] Stop: 07/14/17 08:59 Last Admin: 05/26/17 08:32 Dose: 250 mg Lorazepam (Ativan) 1 mg IVP Q4H PRN; Protocol PRN Reason: Agitation Stop: 07/19/17 09:02 Last Admin: 05/25/17 01:02 Dose: 1 mg Metoclopramide HCl (Reglan) 5 mg IVP TID YESSICA Stop: 07/20/17 20:59 Last Admin: 05/26/17 08:30 Dose: 5 mg Metoprolol Tartrate (Lopressor) 50 mg GT Q8H YESSICA Stop: 07/18/17 08:59 Last Admin: 05/26/17 08:30 Dose: 50 mg Miscellaneous (Vte [employer] Prophylaxis Screen/ Admission) 1 [facility] PRN PRN PRN Reason: PROTOCOL Stop: 07/14/17 09:25 Miscellaneous (Clinical Monitoring) 1 [facility] DAILY PRN PRN Reason: RENAL Stop: 07/15/17 12:32 Miscellaneous (Probiotic Screen) 1 [facility] PRN PRN PRN Reason: PROTOCOL Stop: 07/16/17 09:33 Miscellaneous (Tpn Per Pharmacy) 1 [facility] PRN PRN PRN Reason: PROTOCOL Stop: 07/24/17 15:59 Mupirocin (Bactroban Oint) 1 appl TP BID YESSICA Stop: 07/14/17 16:59 Last Admin: 05/26/17 08:31 Dose: 1 appl Pantoprazole Sodium (Protonix) 40 mg GT DAILY YESSICA Stop: 07/14/17 08:59 Last Admin: 05/26/17 08:29 Dose: 40 mg General: no acute distress, well developed, well nourished HEENT: atraumatic, normocephalic Neck: supple, no thyromegaly Cardiovascular: S1S2, regular Lungs: clear to percussion, crackles Abdomen: soft, no tender, no distended, no guarding Extremities: no cyanosis, no clubbing, no edema Neurological: awake, alert, oriented Skin: intact - Procedures Procedures: Procedures Procedure Code Date INSERT EMERGENCY AIRWAY 54761 05/13/17 INSERT TUNNELED CV CATH [id number] 05/13/17 INSERTION OF ENDOTRACHEAL AIRWAY INTO TRACHEA, VIA OPENING [id number] 05/13/17 INSERTION OF INFUSION DEV INTO R FEMOR VEIN, PERC APPROACH [id number] 05/13/17 RESPIRATORY VENTILATION, GREATER THAN 96 CONSECUTIVE HOURS [id number] 05/13/17 [facility] INSALOT INIT DAY 87828 05/13/17 Infectious Disease Assmt/Plan - Problem List Patient Problems: All Active Problems COUGH AND CONGESTION (Acute) - Assessment Assessment: 1. Pneuimonia.? Aspiration. 2. NICK. 3. CVA. 4. CHF. 5. CKD4. NICK mild rise in creatinine. 6. Afib with rapid ventricular response. Plan: Continue tygacil D6/10. Nutritional Asmnt/Malnutr-PDOC - Dietary Evaluation Malnutrition Findings (Please click <Entered> for more info): Nutritional Asmnt/Malnutrition Start: 05/15/17 13: 56 Text: Status: Complete Freq: Document 05/15/17 13:56 GSTHALIA (Rec: 05/15/17 14:18 GSTHALIA [email or web address]) Nutritional Asmnt/Malnutrition Patient General Information Nutritional Screening High Risk Screening Diagnosis PNA, NICK, icnreasing renal failure, CVA, CHF, DM Pertinent Medical Hx/Surgical Hx CVA, dementia, afib, CAD, HTN, dyslipidemia, epilepsy, GERD, aspiration PNA, DM, CKD, dehydration, C. diff, anemia D Subjective Information 86 year old male from SNF. Pt greeted RD. Pt is overall thin , moderate to severe wasting to chest, clavicles, extremities. Observed Glytrol running at 60ml/hr x20hrs during visit. Unable to obtain CBW due to bedscale not calibrated. Discussed with YVETTE Farooq regarding tube feeding recommendations. Current Diet Order/ Nutrition Support Glytrol at 60ml/hr x 20hrs, providing 1200kcal 54g protein Pertinent Medications Lipitor, Novolog, Levemir, Cephulac, Morphine, Protonix, Nacl 0.9% Pertinent Labs 05/13: potassium 5.3H, BUN 80H, creatinine 2.4H, glucose 103 05/15: potassium WNL, BUN 70H, creatinine 2.4H, glucose 239H, A1c 6.1H, phosphorus 5.4H Nutritional Hx/Data Height 1.68 m Height (Calculated Centimeters) 167.6 Current Weight (lbs) 65.771 kg Weight (Calculated Kilograms) 65.8 Weight (Calculated Grams) 20033.9 [place] Body Weight 142 Weight Status Approriate GI Symptoms Difficult in: Swallowing Cultural/Ethnic/[employer] [facility]: Glucerna 1.2 at 85ml/hr x 20hrs, providing 2040kcal, promote weight gain. Skin Integrity/Comment: Gee 12. Skin intact. Estimated Nutritional Goals Calories/Kcals/Kg CBW 145lb/65.9kg Kcals Calculated 1976-2307kcal (30-35kcal/kg) Protein Calculated 46-92g (0.7-1.4g/kg, renal vs moderate to severe wasting) Fluid: ml Per MD (renal) Nutritional Problem 2. Problem Problem Impaired nutrient utilization related to Etiology NICK, hx CKD aeb Signs/Symptoms: "increasing renal failure," potaasum 5.3H on adm, BUN 70H, principal technical writer 2.4H, phosphorus 5.4H 1. Problem Problem Inadequate intake from enteral nutrition infusion related to Etiology estimated nutritional needs aeb Signs/Symptoms: providing to meet 61% lower end kcal needs Intervention/Recommendation Comments 1. Recommend Novasource Renal at 50ml/hr x 20hrs, providing 2000kcal and 91g protein. Current order Glytrol at 60ml/ hr x 20hrs is only providing 1200kcal, pt recieves 2040kcal at [facility]. Expected Outcomes/Goals Expected Outcomes/Goals 1. Pt to meet at least 100% of estimated nutritional needs on tube feeding with tolerance .
[2017-05-26] MEDS ORDERED: AMINO ACIDS IV SCH (16:00)
[2017-05-26] MEDS ORDERED: [UNRECOGNIZED DRUG - OTHER] IV SCH (16:00)
[2017-05-26] MEDS ORDERED: MULTIVITAMIN IV SCH (16:00)
[2017-05-26] MEDS ORDERED: DEXTROSE IV SCH (16:00)
--- NOTE | 2017-05-26 17:19 | General Progress Note ---
Subjective - Review of Systems Service Date: 05/26/17 Subjective: Patient seen and examined been lethargic difficult to arouse Objective - Results Result Diagrams: 05/26/17 04:40 05/26/17 04:40 Recent Labs: Laboratory Last Values WBC 10.8 Th/cmm (4.8-10.8) D 05/26/17 04:40 RBC 2.96 Mil/cmm (3.80-5.80) L 05/26/17 04:40 Hgb 8.4 gm/dL (12.6-17.4) L 05/26/17 04:40 Hct 25.2 % (39.0-49.0) L 05/26/17 04:40 MCV 84.9 fl (80-99) 05/26/17 04:40 MCH 28.2 pg (27.0-31.0) 05/26/17 04:40 MCHC Differential 33.2 pg (28.0-36.0) 05/26/17 04:40 RDW 16.1 % (11.5-20.0) 05/26/17 04:40 Plt Count 205 Th/cmm (150-400) 05/26/17 04:40 MPV 7.7 fl 05/26/17 04:40 Neutrophils % [employer]ER 05/24/17 04:49 Band Neutrophils % 2 % (0-10) 05/26/17 04:40 Lymphocytes % ENGINE[employer]ER 05/24/17 04:49 Monocytes % ENGINEER [employer]HAUSTER 05/24/17 04:49 Eosinophils % ENGINEER [employer]ER [employer]ER 05/24/17 04:49 Basophils % ENGINEER [employer]ER [employer]HAUSTER 05/24/17 04:49 Neutrophils (Manual) 89 % (40-80) H 05/26/17 04:40 Lymphocytes 5 % (20-50) L 05/26/17 04:40 Monocytes 4 % (2-10) 05/26/17 04:40 Eosinophils 0 % (0-5) 05/24/17 04:49 Basophils 0 % (0-3) 05/24/17 04:49 Metamyelocytes 1 % (0-0) H 05/22/17 04:44 Toxic Granulation 1+ 05/23/17 04:48 Platelet Estimate ADEQUATE (NORMAL) 05/26/17 04:40 Platelet Morphology NORMAL (NORMAL) 05/26/17 04:40 Anisocytosis 1+ 05/22/17 04:44 RBC Morph Micro Appear NORMAL (NORMAL) 05/26/17 04:40 Eos Smear Source URINE 05/14/17 18:00 Eos Smear Total Cells FEW EOSINOPHILS SEEN (NONE SEEN) 05/14/17 18:00 PT 11.9 SECONDS (9.5-11.5) H 05/13/17 17:42 INR 1.13 (0.5-1.4) 05/13/17 17:42 PTT (Actin FS) 30.5 SECONDS (26.0-38.0) 05/15/17 12:30 Specimen Source Arterial 05/26/17 09:00 Sample Site Right Radial 05/26/17 09:00 pH 7.34 (7.35-7.45) L 05/26/17 09:00 pCO2 49.0 mmHg (35.0-45.0) H 05/26/17 09:00 pO2 92.0 mmHg (80.0-100.0) 05/26/17 09:00 HCO3 25.0 mEq/L (20.0-26.0) 05/26/17 09:00 Base Excess 0.1 mEq/L (-3.0-3.0) 05/26/17 09:00 O2 Saturation 97.0 % (92.0-100.0) 05/26/17 09:00 Feliciano Test YES 05/26/17 09:00 Vent Rate 12 05/26/17 09:00 Inspired O2 40 05/26/17 09:00 Tidal Volume 500 05/26/17 09:00 PEEP NA 05/26/17 09:00 Pressure (ins/psv/peep) 15 05/26/17 09:00 Critical Value SH 05/26/17 09:00 Sodium 136 mEq/L (136-145) 05/26/17 04:40 Potassium 4.1 mEq/L (3.5-5.1) 05/26/17 04:40 Chloride 103 mEq/L (98-107) 05/26/17 04:40 Carbon Dioxide 24.5 mEq/L (21.0-31.0) 05/26/17 04:40 Anion Gap 12.6 (7.0-16.0) 05/26/17 04:40 BUN 69 mg/dL (7-25) H 05/26/17 04:40 Creatinine 2.5 mg/dL (0.7-1.3) H 05/26/17 04:40 Est GFR ( Amer) TNP 05/26/17 04:40 Est GFR (Non-Af Amer) TNP 05/26/17 04:40 BUN/Creatinine Ratio 27.6 05/26/17 04:40 Glucose 239 mg/dL (70-105) H 05/26/17 04:40 POC Glucose 194 MG/DL (70 - 105) H 05/26/17 12:06 Hemoglobin A1c % 6.1 % (4.0-6.0) H 05/15/17 06:30 Plasma/Ser Osmolality 301 mOsmol/kg (280-301) 05/14/17 18:20 Whole Bld Lactic Acid 1.58 mmol/L (0.60-1.99) 05/13/17 17:42 Uric Acid 7.7 mg/dL (4.4-7.6) H 05/15/17 06:30 Calcium 8.6 mg/dL (8.6-10.3) 05/26/17 04:40 Phosphorus 4.5 mg/dL (2.5-5.0) 05/26/17 04:40 Magnesium 1.9 mg/dL (1.9-2.7) 05/26/17 04:40 Total Bilirubin 1.1 mg/dL (0.3-1.0) H 05/26/17 04:40 Direct Bilirubin 0.09 mg/dL (0.0-0.2) 05/19/17 04:50 AST 66 U/L (13-39) H 05/26/17 04:40 ALT 5 U/L (7-52) L 05/26/17 04:40 Alkaline Phosphatase 93 U/L (34-104) 05/26/17 04:40 Ammonia 65 umol/L (16-53) H 05/19/17 04:50 Creatine Kinase 35 U/L (30-223) 05/16/17 23:06 Troponin I 0.02 ng/mL (0.01-0.05) 05/16/17 23:06 B-Natriuretic Peptide 739.0 pg/mL (5.0-100.0) H 05/23/17 04:48 Total Protein 5.5 gm/dL (6.0-8.3) L 05/26/17 04:40 Albumin 2.6 gm/dL (4.2-5.5) L 05/26/17 04:40 Globulin 2.9 gm/dL 05/26/17 04:40 Albumin/Globulin Ratio 0.9 (1.0-1.8) L 05/26/17 04:40 Prealbumin 9 mg/dL (9-32) 05/24/17 04:49 Triglycerides 47 mg/dL (<150) 05/24/17 04:49 Cholesterol 55 mg/dL (<200) 05/24/17 04:49 TSH 2.74 uIU/ml (0.34-5.60) 05/15/17 06:30 Urine Source CATH 05/13/17 19:50 Urine Color YELLOW 05/13/17 19:50 Urine Clarity CLOUDY (CLEAR) 05/13/17 19:50 Urine pH 6.0 05/13/17 19:50 Ur Specific Williamson 1.015 (1.005-1.030) 05/13/17 19:50 Urine Protein 100 mg/dL (NEGATIVE) H 05/13/17 19:50 Urine Glucose (UA) NEGATIVE mg/dL (NEGATIVE) 05/13/17 19:50 Urine Ketones NEGATIVE mg/dL (NEGATIVE) 05/13/17 19:50 Urine Blood LARGE (NEGATIVE) H 05/13/17 19:50 Urine Nitrate NEGATIVE (NEGATIVE) 05/13/17 19:50 Urine Bilirubin NEGATIVE (NEGATIVE) 05/13/17 19:50 Urine Urobilinogen 0.2 E.U./dL (0.2 - 1.0) 05/13/17 19:50 Ur Leukocyte Esterase LARGE (NEGATIVE) H 05/13/17 19:50 Urine RBC 50-100 /hpf (0-5) H 05/13/17 19:50 Urine WBC >100 /hpf (0-5) H 05/13/17 19:50 Ur Epithelial Cells NONE SEEN /lpf (FEW) 05/13/17 19:50 Urine Bacteria NONE SEEN /hpf (NONE SEEN) 05/13/17 19:50 Ur Random Sodium 30 mmol/L 05/14/17 18:00 Urine Creatinine 36.4 mg/dl (Not Estab.) 05/14/17 18:00 Urine Microalbumin 363.5 ug/mL (Not Estab.) 05/14/17 18:00 Microalb/Creat Ratio 998.6 mg/g creat (0.0-30.0) H 05/14/17 18:00 Stool Occult Blood NEGATIVE (NEGATIVE) 05/25/17 17:49 Random Vancomycin 19.1 ug/mL (5.0-40.0) 05/19/17 04:50 Hepatitis A IgM Ab Negative (Negative) 05/21/17 04:46 Hep Bs Antigen Negative (Negative) 05/21/17 04:46 Hep B Core IgM Ab Negative (Negative) 05/21/17 04:46 Hepatitis C Antibody 0.1 s/co ratio (0.0-0.9) 05/21/17 04:46 Blood Type B POSITIVE 05/21/17 10:19 Antibody Screen NEGATIVE 05/21/17 10:19 Crossmatch See Detail 05/21/17 10:19 - Physical Exam Vitals and I&O: Vital Signs Temp 97.8 F 05/26/17 16:00 Pulse 82 05/26/17 17:09 Resp 11 05/26/17 17:00 BP 121/62 05/26/17 17:00 Pulse Ox 98 05/26/17 17:09 Intake & Output 05/25/17 05/26/17 05/26/17 18:59 06:59 18:59 Intake Total 730 1198.667 100 Output Total 125 Balance 605 1198.667 100 Weight (lbs) 66.95 kg 66.769 kg Intake: Intake, IV Amount 100 1198.667 100 Multivitamin Inj 5 ml In 1098.667 Dextrose 70% 242 ml In Amino Acids 15% 627 ml In Water, Sterile 945 ml @ 40 mls/hr IV .Q24H YESSICA Rx #:[id number] Tigecycline 50 mg In 100 100 100 Sodium Chloride 0.9% 100 ml @ 100 mls/hr IV Q12H [facility] Rx#:[id number] TPN/PPN 480 Other 150 Output: Urine 125 Other: # Bowel Movements 1 Stool Characteristics Soft Liquid Brown Active Medications: Current Medications Acetaminophen (Tylenol) 650 mg PO Q4HR PRN PRN Reason: Pain Or Fever above 101 Stop: 07/14/17 15:15 Last Admin: 05/23/17 15:07 Dose: 650 mg Albuterol/Ipratropium (Duoneb Neb) 3 ml HHN Q4HRT [facility] Stop: 07/19/17 14:59 Last Admin: 05/26/17 15:40 Dose: 3 ml Atorvastatin Calcium (Lipitor) 10 mg GT HS YESSICA PRN Reason: Protocol Stop: 07/14/17 20:59 Last Admin: 05/25/17 21:08 Dose: 10 mg Budesonide (Pulmicort) 1 mg HHN BIDRT YESSICA Stop: 07/19/17 18:59 Last Admin: 05/26/17 07:08 Dose: 1 mg Carbidopa/Levodopa (Sinemet 25mg-100 Mg) 1 tab PO TID YESSICA Stop: 07/14/17 08:59 Last Admin: 05/26/17 14:18 Dose: 1 tab Chlorhexidine Gluconate (Peridex) 15 ml MM 0800,2000 [facility] Stop: 07/23/17 19:59 Last Admin: 05/26/17 08:41 Dose: 15 ml Dextrose (D50w) 50 ml IVP PRN PRN; Protocol PRN Reason: HYPOGLYCEMIA Stop: 07/20/17 00:54 Last Admin: 05/22/17 23:34 Dose: 50 ml Diltiazem HCl (Cardizem) 10 mg IVP Q6HR PRN PRN Reason: HR >130 Stop: 07/22/17 17:09 Last Admin: 05/24/17 04:21 Dose: 10 mg Furosemide (Lasix) 40 mg IVP DAILY [facility] Stop: 07/18/17 08:59 Last Admin: 05/26/17 08:30 Dose: 40 mg Heparin Sodium (Porcine) (Heparin) 5,000 units SUBQ Q8HR [facility]ESS[facility] Stop: 07/22/17 20:59 Last Admin: 05/26/17 12:52 Dose: 5,000 units Norepinephrine Bitartrate 8 mg (/ Dextrose) 258 mls @ 0 mls/hr IV TITR PRN; Protocol; Titrate PRN Reason: BP MAINTENANCE (PER PROTOCOL) Stop: 07/19/17 12:29 Last Admin: 05/21/17 01:06 Dose: 10 mcg/min, 19.35 mls/hr Phenylephrine HCl 10 mg/ (Sodium Chloride) 250 mls @ 0 mls/hr IV TITR YESSICA; Per Protocol PRN Reason: Protocol Stop: 07/19/17 12:59 Tigecycline 50 mg/ Sodium (Chloride) 100 mls @ 100 mls/hr IV Q12H [facility]ESS[facility] Stop: 07/21/17 18:59 Last Infusion: 05/26/17 10:30 Dose: Infused Fluconazole (Diflucan) 100 mg in 50 mls @ 50 mls/hr IV Q24HR [facility]ESSICA Stop: 07/21/17 04:59 Last Admin: 05/26/17 04:19 Dose: 50 mls/hr Multivitamins/Minerals 10 ml/Amino Acids/Electrolytes/Dextrose/ Fat Emulsion Intravenous 960 mls @ 40 mls/hr IV .Q24H YESSICA Stop: 07/25/17 15:59 Albumin Human (Albuminar 25%) 25 gm in 100 mls @ 50 mls/hr IV X1 ONE Stop: 05/27/17 15:52 Albumin Human (Albuminar 25%) 25 gm in 100 mls @ 50 mls/hr IV X1 ONE Stop: 05/27/17 15:53 Insulin Aspart (Novolog Insulin Sliding Scale) 0 units SUBQ Q6HR YESSICA PRN Reason: Protocol Stop: 07/14/17 00:00 Last Admin: 05/26/17 12:09 Dose: Not Given Ipratropium [place] (Atrovent Neb 0.5mg/2.5ml) 0.5 mg HHN Q4HRT [facility] Stop: 07/17/17 14:59 Last Admin: 05/24/17 03:19 Dose: 0.5 mg Isosorbide Dinitrate (Isordil) 10 mg GT TID [facility] Stop: 07/14/17 08:59 Last Admin: 05/26/17 14:18 Dose: 10 mg Lactobacillus Rhamnosus (Culturelle) 1 each PO DAILY [facility]ESSICA Stop: 07/17/17 08:59 Last Admin: 05/26/17 08:30 Dose: 1 each Levetiracetam (Keppra) 250 mg NG BID [facility] Stop: 07/14/17 08:59 Last Admin: 05/26/17 16:56 Dose: 250 mg Lorazepam (Ativan) 1 mg IVP Q4H PRN; Protocol PRN Reason: Agitation Stop: 07/19/17 09:02 Last Admin: 05/25/17 01:02 Dose: 1 mg Metoclopramide HCl (Reglan) 5 mg IVP TID [facility] Stop: 07/20/17 20:59 Last Admin: 05/26/17 14:18 Dose: 5 mg Metoprolol Tartrate (Lopressor) 50 mg GT Q8H [facility]ESSICA Stop: 07/18/17 08:59 Last Admin: 05/26/17 16:55 Dose: 50 mg Miscellaneous (Vte Chemical Prophylaxis Screen/ Admission) 1 ea MC PRN PRN PRN Reason: PROTOCOL Stop: 07/14/17 09:25 Miscellaneous (Clinical Monitoring) 1 ea MC DAILY PRN PRN Reason: RENAL Stop: 07/15/17 12:32 Miscellaneous (Probiotic Screen) 1 ea MC PRN PRN PRN Reason: PROTOCOL Stop: 07/16/17 09:33 Miscellaneous (Tpn Per Pharmacy) 1 ea MC PRN PRN PRN Reason: PROTOCOL Stop: 07/24/17 15:59 Mupirocin (Bactroban Oint) 1 appl TP BID YESSICA Stop: 07/14/17 16:59 Last Admin: 05/26/17 16:55 Dose: 1 appl Pantoprazole Sodium (Protonix) 40 mg GT DAILY [facility]ESSICA Stop: 07/14/17 08:59 Last Admin: 05/26/17 08:29 Dose: 40 mg General: No acute distress, no Alert HEENT: Mucous membr. moist/pink Neck: Supple, +2 carotid pulse wo bruit Cardiovascular: Other (afib with fluctuating heart rate) Lungs: Other (occasional rhonchi, breathing is tight, fine expiratory wheeze) Abdomen: Soft Extremities: Edema Neurological: Other (lethargic) Skin: no Rash Psych/Mental Status: Mood NL - Procedures Procedures: Procedures Procedure Code Date INSERT EMERGENCY AIRWAY 35698 05/13/17 INSERT TUNNELED CV CATH 60653 05/13/17 INSERTION OF ENDOTRACHEAL AIRWAY INTO TRACHEA, VIA OPENING [id number] 05/13/17 INSERTION OF INFUSION DEV INTO R FEMOR VEIN, PERC APPROACH [id number] 05/13/17 RESPIRATORY VENTILATION, GREATER THAN 96 CONSECUTIVE HOURS [id number] 05/13/17 VENT MGMT INPAT INIT DAY 71327 05/13/17 Assessment/Plan - Problem List Patient Problems: All Active Problems COUGH AND CONGESTION (Acute) - Assessment Assessment: Current Active Problems Problem Status Onset COUGH AND CONGESTION Acute Altered mental status Acute respiratory failure on vent improving Renal failure improving on HD MDRO Pneumonia Afib RVR UTI CAD 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 HTN renal disease Seizure disorder - Plan Plan: CT Head w/o contrast r/o acute neuro abnormality Heparin sub Q Cardizem iv prn Metoprolol Tygacil per ID rec HD per nephrology rec Continue vent support PPN started for nutritional support Off vasopressor Feeding on hold due to tolerance issue Plan of care discussed with nursing staff Plan of care discussed with nursing staff Nutritional Asmnt/Malnutr-PDOC - Dietary Evaluation Malnutrition Findings (Please click <Entered> for more info): Nutritional Asmnt/Malnutrition Start: 05/15/17 13: 56 Text: Status: Complete Freq: Document 05/15/17 13:56 GSUN (Rec: 05/15/17 14:18 GSUN [id number]) Nutritional Asmnt/Malnutrition Patient General Information Nutritional Screening High Risk Screening Diagnosis PNA, NICK, icnreasing renal failure, CVA, CHF, DM Pertinent Medical Hx/Surgical Hx CVA, dementia, afib, CAD, HTN, dyslipidemia, epilepsy, GERD, aspiration PNA, DM, CKD, dehydration, C. diff, anemia D Subjective Information 86 year old male from SNF. Pt greeted RD. Pt is overall thin , moderate to severe wasting to chest, clavicles, extremities. Observed Glytrol running at 60ml/hr x20hrs during visit. Unable to obtain CBW due to bedscale not calibrated. Discussed with YVETTE Farooq regarding tube feeding recommendations. Current Diet Order/ Nutrition Support Glytrol at 60ml/hr x 20hrs, providing 1200kcal 54g protein Pertinent Medications Lipitor, Novolog, Levemir, Cephulac, Morphine, Protonix, Nacl 0.9% Pertinent Labs 05/13: potassium 5.3H, BUN 80H, creatinine 2.4H, glucose 103 05/15: potassium WNL, BUN 70H, creatinine 2.4H, glucose 239H, A1c 6.1H, phosphorus 5.4H Nutritional Hx/Data Height 1.68 m Height (Calculated Centimeters) 167.6 Current Weight (lbs) 65.771 kg Weight (Calculated Kilograms) 65.8 Weight (Calculated Grams) 17113.9 [place] Body Weight 142 Weight Status Approriate GI Symptoms Difficult in: Swallowing Cultural/Ethnic/[employer] Belief [facility]: Glucerna 1.2 at 85ml/hr x 20hrs, providing 2040kcal, promote weight gain. Skin Integrity/Comment: Gee 12. Skin intact. Estimated Nutritional Goals Calories/Kcals/Kg CBW 145lb/65.9kg Kcals Calculated 1976-7kcal (30-35kcal/kg) Protein Calculated 46-92g (0.7-1.4g/kg, renal vs moderate to severe wasting) Fluid: ml Per MD (renal) Nutritional Problem 2. Problem Problem Impaired nutrient utilization related to Etiology NICK, hx CKD aeb Signs/Symptoms: "increasing renal failure," potaasum 5.3H on adm, BUN 70H, medical tech 2.4H, phosphorus 5.4H 1. Problem Problem Inadequate intake from enteral nutrition infusion related to Etiology estimated nutritional needs aeb Signs/Symptoms: providing to meet 61% lower end kcal needs Intervention/Recommendation Comments 1. Recommend Novasource Renal at 50ml/hr x 20hrs, providing 2000kcal and 91g protein. Current order Glytrol at 60ml/ hr x 20hrs is only providing 1200kcal, pt recieves 2040kcal at [facility]. Expected Outcomes/Goals Expected Outcomes/Goals 1. Pt to meet at least 100% of estimated nutritional needs on tube feeding with tolerance .
[2017-05-26] MEDS: Atorvastatin Calcium 10 MG TAB GT SCH (21:40)
--- NOTE | 2017-05-26 22:06 | Progress Notes ---
DATE: 05/26/2017 PROBLEM LIST: 1. status post CPR. 2. Respiratory failure. 3. Congestive heart failure with possibly secondary pneumonia. 4. Renal failure, on hemodialysis. SYMPTOMS: The patient is quite obtunded, occasionally opens eyes, still on a ventilator on SIMV of 12, no respiratory distress, off vasopressors. PHYSICAL EXAMINATION: VITAL SIGNS: Temperature is 96.7, blood pressure 179/87, saturation is 100% on 40% oxygen with SIMV of 12. CHEST: Shows occasional rales and rhonchi with generalized diminished air entry. HEART: Regular. ABDOMEN: Soft, nontender. LABORATORY DATA: The patient's chest x-ray shows significant haziness in the left side with right infrahilar region as well. White count is 10.8, hemoglobin 8.4. ABG looks mild acidemia, pCO2 of 49, pO2 of 92 on 40%. ASSESSMENT: The patient clinically not much changed, extensive infiltrate, mixture of congestive heart failure, as well as possibly pneumonia. PLANS AND SUGGESTIONS: We will go ahead and continue respiratory care and inhalation treatment. Await for repeat culture. Antibiotic per ID. We will continue rest of other treatment and go from there. JOB# [id number]
[2017-05-27] MEDS: INSULIN ASPART SLIDING SCALE 100 UNITS/ML UNIT SUBQ SCH ×4 (00:56→20:03)
[2017-05-27] MEDS: Albuterol/Ipratropium Neb 3 ML AERS HHN SCH ×6 (02:45→23:46)
[2017-05-27] MEDS: Fluconazole 100mg/50mL 100 MG/50 ML BOTTLE IV SCH (04:43)
[2017-05-27 05:08] LABS: % EOSINOPHILS 1.3 % (0.0-5.0); HEMOGLOBIN 8.9 gm/dL (12.6-17.4); RED CELL DISTRIBUTION WIDTH 15.8 % (11.5-20.0)
[2017-05-27 05:17] LABS: % BASOPHILS 0.2 % (0.0-2.0); % LYMPHOCYTES 11.4 % (20.0-50.0); % MONOCYTES 7.3 % (2.0-10.0); % NEUTROPHILS 79.8 % (40.0-80.0); HEMATOCRIT 26.2 % (39.0-49.0); MEAN CELL VOLUME 84.3 fl (80-99); MEAN CORPUSCULAR HEMOGLOBIN 28.5 pg (27.0-31.0); MEAN CORPUSCULAR HGB CONC 33.8 pg (28.0-36.0); MEAN PLATELET VOLUME 8.2 fl; NEUTROPHILE ABSOLUTE 7.7 Th/cmm (1.8-8.0); PLATELET COUNT 243 Th/cmm (150-400); WHITE BLOOD COUNT 9.6 Th/cmm (4.8-10.8)
[2017-05-27 05:23] LABS: ALB/GLOB RATIO 0.9 (1.0-1.8); ALKALINE PHOSPHATASE 120 U/L (34-104); ANION GAP 14.8 (7.0-16.0); BILIRUBIN,TOTAL 0.9 mg/dL (0.3-1.0); BUN/CREATININE RATIO 28.5; CALCIUM SERUM 8.9 mg/dL (8.6-10.3); CARBON DIOXIDE 22.4 mEq/L (21.0-31.0); CHLORIDE 99 mEq/L (98-107); CREATININE - SERUM 3.3 mg/dL (0.7-1.3); GLUCOSE 202 mg/dL (70-105); MAGNESIUM 2.1 mg/dL (1.9-2.7); POTASSIUM SERUM 4.2 mEq/L (3.5-5.1); SGOT 50 U/L (13-39); SGPT/ALT 5 U/L (7-52)
[2017-05-27 05:56] LABS: BUN - UREA NITROGEN 94 mg/dL (7-25); SODIUM SERUM 132 mEq/L (136-145)
[2017-05-27] MEDS: Budesonide 0.5 Mg/2 mL Ud HHN SCH ×2 (07:51→19:57)
--- NOTE | 2017-05-27 08:10 | Diagnostic Imaging Report ---
CT scan of the brain without intravenous contrast HISTORY: Stroke, CVA Total DLP equals 789 CTDI equals 42.0 Axial sections were obtained from the base of the skull to the vertex. There is enlargement of the ventricular system along with enlargement of cerebral sulci and subarachnoid cisterns reflecting atrophy. Hypodensity seen throughout the supratentorial white matter regions without mass effect. The findings may be associated with chronic small vessel ischemic disease. Or focal hypodensity and encephalomalacia noted within the right frontal parietal and right occipital regions. Findings most likely related to changes of old infarcts. No acute intracerebral hemorrhage. Again, no mass effect or shift of midline structures. No extra-axial masses or abnormal fluid collections. Dense atherosclerotic vascular calcification is seen in the region of the vertebral arteries at the base of the skull. IMPRESSION: 1. No definite acute abnormalities 2. Findings consistent with old right frontal, parietal, and right occipital infarcts. 3. Generalized cerebral atrophy 4. Extensive supratentorial white matter changes. The findings may be associated with chronic small vessel ischemic disease If indicated, a follow-up MRI exam would provide additional assessment.
[2017-05-27] MEDS: Lactobacillus Rhamnosus 10 Billion CFU Capsule PO SCH (08:28)
[2017-05-27] MEDS: Pantoprazole 40 mg/Packet GT SCH (08:28)
[2017-05-27] MEDS: Metoclopramide 5 mg/mL 2mL Vial IVP SCH ×3 (08:29→20:36)
[2017-05-27] MEDS: Levetiracetam 500 mg/5mL 5mL UDC NG SCH ×2 (08:29→17:00)
[2017-05-27] MEDS: Chlorhexidine Gluconate 0.12% 15mL Mouthwash MM SCH ×2 (08:33→20:10)
--- NOTE | 2017-05-27 09:13 | Diagnostic Imaging Report ---
Portable chest x-ray HISTORY: Shortness of breath Compared with prior exam of May 26, 2017, little change in bilateral infiltrates (left greater than right). Evidence of small bilateral pleural effusions. No change in endotracheal tube placement. IMPRESSION: 1. No change in the cardiopulmonary status as noted above
[2017-05-27 09:51] LABS: BE(B) -2.4 mEq/L (-3.0-3.0); HCO3 23.1 mEq/L (20.0-26.0); pH 7.33 (7.35-7.45)
[2017-05-27 09:52] LABS: ABG SOURCE Arterial; ALLEN TEST Positive; FIO2 40; MECH RATE 12; MECH VT 500; PS 15
--- NOTE | 2017-05-27 12:19 | Infectious Disease Prog Note ---
Infectious Disease Subjective - Review of Systems Service Date: 05/27/17 Subjective: No new change. No fever. intubated orally, on vent support. Infectious Disease Objective - Results Result Diagrams: 05/27/17 05:00 05/27/17 05:00 Recent Labs: Laboratory Last Values WBC 9.6 Th/cmm (4.8-10.8) 05/27/17 05:00 RBC 3.10 Mil/cmm (3.80-5.80) L 05/27/17 05:00 Hgb 8.9 gm/dL (12.6-17.4) L 05/27/17 05:00 Hct 26.2 % (39.0-49.0) L 05/27/17 05:00 MCV 84.3 fl (80-99) 05/27/17 05:00 MCH 28.5 pg (27.0-31.0) 05/27/17 05:00 MCHC Differential 33.8 pg (28.0-36.0) 05/27/17 05:00 RDW 15.8 % (11.5-20.0) 05/27/17 05:00 Plt Count 243 Th/cmm (150-400) 05/27/17 05:00 MPV 8.2 fl 05/27/17 05:00 Neutrophils % 79.8 % (40.0-80.0) 05/27/17 05:00 Band Neutrophils % 2 % (0-10) 05/26/17 04:40 Lymphocytes % 11.4 % (20.0-50.0) L 05/27/17 05:00 Monocytes % 7.3 % (2.0-10.0) 05/27/17 05:00 Eosinophils % 1.3 % (0.0-5.0) 05/27/17 05:00 Basophils % 0.2 % (0.0-2.0) 05/27/17 05:00 Neutrophils (Manual) 89 % (40-80) H 05/26/17 04:40 Lymphocytes 5 % (20-50) L 05/26/17 04:40 Monocytes 4 % (2-10) 05/26/17 04:40 Eosinophils 0 % (0-5) 05/24/17 04:49 Basophils 0 % (0-3) 05/24/17 04:49 Metamyelocytes 1 % (0-0) H 05/22/17 04:44 Toxic Granulation 1+ 05/23/17 04:48 Platelet Estimate ADEQUATE (NORMAL) 05/26/17 04:40 Platelet Morphology NORMAL (NORMAL) 05/26/17 04:40 Anisocytosis 1+ 05/22/17 04:44 RBC Morph Micro Appear NORMAL (NORMAL) 05/26/17 04:40 Eos Smear Source URINE 05/14/17 18:00 Eos Smear Total Cells FEW EOSINOPHILS SEEN (NONE SEEN) 05/14/17 18:00 PT 11.9 SECONDS (9.5-11.5) H 05/13/17 17:42 INR 1.13 (0.5-1.4) 05/13/17 17:42 PTT (Actin FS) 30.5 SECONDS (26.0-38.0) 05/15/17 12:30 Specimen Source Arterial 05/27/17 09:23 Sample Site Right Radial 05/27/17 09:23 pH 7.33 (7.35-7.45) L 05/27/17 09:23 pCO2 45.0 mmHg (35.0-45.0) 05/27/17 09:23 pO2 100.0 mmHg (80.0-100.0) 05/27/17 09:23 HCO3 23.1 mEq/L (20.0-26.0) 05/27/17 09:23 Base Excess -2.4 mEq/L (-3.0-3.0) 05/27/17 09:23 O2 Saturation 97.0 % (92.0-100.0) 05/27/17 09:23 [place] Test Positive 05/27/17 09:23 Vent Rate 12 05/27/17 09:23 Inspired O2 40 05/27/17 09:23 Tidal Volume 500 05/27/17 09:23 PEEP NA 05/27/17 09:23 Pressure (ins/psv/peep) 15 05/27/17 09:23 Critical Value LZHANG 05/27/17 09:23 Sodium 132 mEq/L (136-145) L 05/27/17 05:00 Potassium 4.2 mEq/L (3.5-5.1) 05/27/17 05:00 Chloride 99 mEq/L (98-107) 05/27/17 05:00 Carbon Dioxide 22.4 mEq/L (21.0-31.0) 05/27/17 05:00 Anion Gap 14.8 (7.0-16.0) 05/27/17 05:00 BUN 94 mg/dL (7-25) H* 05/27/17 05:00 Creatinine 3.3 mg/dL (0.7-1.3) H 05/27/17 05:00 Est GFR ( Amer) TNP 05/27/17 05:00 Est GFR (Non-Af Amer) TNP 05/27/17 05:00 BUN/Creatinine Ratio 28.5 05/27/17 05:00 Glucose 202 mg/dL (70-105) H 05/27/17 05:00 POC Glucose 176 MG/DL (70 - 105) H 05/27/17 05:54 Hemoglobin A1c % 6.1 % (4.0-6.0) H 05/15/17 06:30 Plasma/Ser Osmolality 301 mOsmol/kg (280-301) 05/14/17 18:20 Whole Bld Lactic Acid 1.58 mmol/L (0.60-1.99) 05/13/17 17:42 Uric Acid 7.7 mg/dL (4.4-7.6) H 05/15/17 06:30 Calcium 8.9 mg/dL (8.6-10.3) 05/27/17 05:00 Phosphorus 6.0 mg/dL (2.5-5.0) H 05/27/17 05:00 Magnesium 2.1 mg/dL (1.9-2.7) 05/27/17 05:00 Total Bilirubin 0.9 mg/dL (0.3-1.0) 05/27/17 05:00 Direct Bilirubin 0.09 mg/dL (0.0-0.2) 05/19/17 04:50 AST 50 U/L (13-39) H 05/27/17 05:00 ALT 5 U/L (7-52) L 05/27/17 05:00 Alkaline Phosphatase 120 U/L (34-104) H 05/27/17 05:00 Ammonia 65 umol/L (16-53) H 05/19/17 04:50 Creatine Kinase 35 U/L (30-223) 05/16/17 23:06 Troponin I 0.02 ng/mL (0.01-0.05) 05/16/17 23:06 B-Natriuretic Peptide 739.0 pg/mL (5.0-100.0) H 05/23/17 04:48 Total Protein 5.9 gm/dL (6.0-8.3) L 05/27/17 05:00 Albumin 2.8 gm/dL (4.2-5.5) L 05/27/17 05:00 Globulin 3.1 gm/dL 05/27/17 05:00 Albumin/Globulin Ratio 0.9 (1.0-1.8) L 05/27/17 05:00 Prealbumin 9 mg/dL (9-32) 05/24/17 04:49 Triglycerides 47 mg/dL (<150) 05/24/17 04:49 Cholesterol 55 mg/dL (<200) 05/24/17 04:49 TSH 2.74 uIU/ml (0.34-5.60) 05/15/17 06:30 Urine Source CATH 05/13/17 19:50 Urine Color YELLOW 05/13/17 19:50 Urine Clarity CLOUDY (CLEAR) 05/13/17 19:50 Urine pH 6.0 05/13/17 19:50 Ur Specific [place] 1.015 (1.005-1.030) 05/13/17 19:50 Urine Protein 100 mg/dL (NEGATIVE) H 05/13/17 19:50 Urine Glucose (UA) NEGATIVE mg/dL (NEGATIVE) 05/13/17 19:50 Urine Ketones NEGATIVE mg/dL (NEGATIVE) 05/13/17 19:50 Urine Blood LARGE (NEGATIVE) H 05/13/17 19:50 Urine Nitrate NEGATIVE (NEGATIVE) 05/13/17 19:50 Urine Bilirubin NEGATIVE (NEGATIVE) 05/13/17 19:50 Urine Urobilinogen 0.2 E.U./dL (0.2 - 1.0) 05/13/17 19:50 Ur Leukocyte Esterase LARGE (NEGATIVE) H 05/13/17 19:50 Urine RBC 50-100 /hpf (0-5) H 05/13/17 19:50 Urine WBC >100 /hpf (0-5) H 05/13/17 19:50 Ur Epithelial Cells NONE SEEN /lpf (FEW) 05/13/17 19:50 Urine Bacteria NONE SEEN /hpf (NONE SEEN) 05/13/17 19:50 Ur Random Sodium 30 mmol/L 05/14/17 18:00 Urine Creatinine 36.4 mg/dl (Not Estab.) 05/14/17 18:00 Urine Microalbumin 363.5 ug/mL (Not Estab.) 05/14/17 18:00 Microalb/Creat Ratio 998.6 mg/g creat (0.0-30.0) H 05/14/17 18:00 Stool Occult Blood NEGATIVE (NEGATIVE) 05/25/17 17:49 Random Vancomycin 19.1 ug/mL (5.0-40.0) 05/19/17 04:50 Hepatitis A IgM Ab Negative (Negative) 05/21/17 04:46 Hep Bs Antigen Negative (Negative) 05/21/17 04:46 Hep B Core IgM Ab Negative (Negative) 05/21/17 04:46 Hepatitis C Antibody 0.1 s/co ratio (0.0-0.9) 05/21/17 04:46 Blood Type B POSITIVE 05/21/17 10:19 Antibody Screen NEGATIVE 05/21/17 10:19 Crossmatch See Detail 05/21/17 10:19 - Physical Exam Vitals and I&O: Vital Signs Temp 98.1 F 05/27/17 04:00 Pulse 85 05/27/17 11:55 Resp 12 05/27/17 07:00 BP 158/82 05/27/17 08:30 Pulse Ox 99 05/27/17 11:55 Intake & Output 05/26/17 05/27/17 05/27/17 18:59 06:59 18:59 Intake Total 250 730 Output Total 150 150 Balance 100 580 Weight (lbs) 67.132 kg 67.67 kg Intake: Intake, IV Amount 100 150 Fluconazole 100mg/50mL 50 100 mg In 50 ml @ 50 mls/ hr IV Q24HR YESSICA Rx#: [id number] Tigecycline 50 mg In 100 100 Sodium Chloride 0.9% 100 ml @ 100 mls/hr IV Q12H YESSICA Rx#:[id number] TPN/PPN 480 Other 150 100 Output: Urine 150 150 Other: # Bowel Movements 1 1 Stool Characteristics Soft Liquid Brown Active Medications: Current Medications Acetaminophen (Tylenol) 650 mg PO Q4HR PRN PRN Reason: Pain Or Fever above 101 Stop: 07/14/17 15:15 Last Admin: 05/23/17 15:07 Dose: 650 mg Albuterol/Ipratropium (Duoneb Neb) 3 ml HHN Q4HRT [facility] Stop: 07/19/17 14:59 Last Admin: 05/27/17 11:50 Dose: 3 ml Atorvastatin Calcium (Lipitor) 10 mg GT HS YESSICA PRN Reason: Protocol Stop: 07/14/17 20:59 Last Admin: 05/26/17 21:40 Dose: 10 mg Budesonide (Pulmicort) 1 mg HHN BIDRT [facility] Stop: 07/19/17 18:59 Last Admin: 05/27/17 07:51 Dose: 1 mg Carbidopa/Levodopa (Sinemet 25mg-100 Mg) 1 tab PO TID [facility] Stop: 07/14/17 08:59 Last Admin: 05/27/17 08:29 Dose: 1 tab Chlorhexidine Gluconate (Peridex) 15 ml MM 0800,2000 [facility] Stop: 07/23/17 19:59 Last Admin: 05/27/17 08:33 Dose: 15 ml Dextrose (D50w) 50 ml IVP PRN PRN; Protocol PRN Reason: HYPOGLYCEMIA Stop: 07/20/17 00:54 Last Admin: 05/22/17 23:34 Dose: 50 ml Diltiazem HCl (Cardizem) 10 mg IVP Q6HR PRN PRN Reason: HR >130 Stop: 07/22/17 17:09 Last Admin: 05/24/17 04:21 Dose: 10 mg Furosemide (Lasix) 40 mg IVP DAILY [facility] Stop: 07/18/17 08:59 Last Admin: 05/27/17 08:30 Dose: 40 mg Heparin Sodium (Porcine) (Heparin) 5,000 units SUBQ Q8HR YESSICA Stop: 07/22/17 20:59 Last Admin: 05/27/17 04:45 Dose: 5,000 units Norepinephrine Bitartrate 8 mg (/ Dextrose) 258 mls @ 0 mls/hr IV TITR PRN; Protocol; Titrate PRN Reason: BP MAINTENANCE (PER PROTOCOL) Stop: 07/19/17 12:29 Last Admin: 05/21/17 01:06 Dose: 10 mcg/min, 19.35 mls/hr Phenylephrine HCl 10 mg/ (Sodium Chloride) 250 mls @ 0 mls/hr IV TITR YESSICA; Per Protocol PRN Reason: Protocol Stop: 07/19/17 12:59 Tigecycline 50 mg/ Sodium (Chloride) 100 mls @ 100 mls/hr IV Q12H YESSICA Stop: 07/21/17 18:59 Last Admin: 05/27/17 06:37 Dose: 100 mls/hr Fluconazole (Diflucan) 100 mg in 50 mls @ 50 mls/hr IV Q24HR YESSICA Stop: 07/21/17 04:59 Last Infusion: 05/27/17 05:45 Dose: Infused Multivitamins/Minerals 10 ml/Amino Acids/Electrolytes/Dextrose/ Fat Emulsion Intravenous 960 mls @ 40 mls/hr IV .Q24H [facility] Stop: 07/25/17 15:59 Last Admin: 05/26/17 16:00 Dose: 40 mls/hr Albumin Human (Albuminar 25%) 25 gm in 100 mls @ 50 mls/hr IV X1 ONE Stop: 05/27/17 15:52 Albumin Human (Albuminar 25%) 25 gm in 100 mls @ 50 mls/hr IV X1 ONE Stop: 05/27/17 15:53 Insulin Aspart (Novolog Insulin Sliding Scale) 0 units SUBQ Q6HR [facility] PRN Reason: Protocol Stop: 07/14/17 00:00 Last Admin: 05/27/17 06:13 Dose: Not Given Ipratropium [place] (Atrovent Neb 0.5mg/2.5ml) 0.5 mg HHN Q4HRT [facility] Stop: 07/17/17 14:59 Last Admin: 05/24/17 03:19 Dose: 0.5 mg Isosorbide Dinitrate (Isordil) 10 mg GT TID YESSICA Stop: 07/14/17 08:59 Last Admin: 05/27/17 08:30 Dose: 10 mg Lactobacillus Rhamnosus (Culturelle) 1 each PO DAILY YESSICA Stop: 07/17/17 08:59 Last Admin: 05/27/17 08:28 Dose: 1 each Levetiracetam (Keppra) 250 mg NG BID [facility] Stop: 07/14/17 08:59 Last Admin: 05/27/17 08:29 Dose: 250 mg Lorazepam (Ativan) 1 mg IVP Q4H PRN; Protocol PRN Reason: Agitation Stop: 07/19/17 09:02 Last Admin: 05/25/17 01:02 Dose: 1 mg Metoclopramide HCl (Reglan) 5 mg IVP TID YESSICA Stop: 07/20/17 20:59 Last Admin: 05/27/17 08:29 Dose: 5 mg Metoprolol Tartrate (Lopressor) 50 mg GT Q8H YESSICA Stop: 07/18/17 08:59 Last Admin: 05/27/17 00:38 Dose: 50 mg Miscellaneous (Vte Chemical Prophylaxis Screen/ Admission) 1 ea PRN PRN PRN Reason: PROTOCOL Stop: 07/14/17 09:25 Miscellaneous (Clinical Monitoring) 1 ea DAILY PRN PRN Reason: RENAL Stop: 07/15/17 12:32 Miscellaneous (Probiotic Screen) 1 [facility] PRN PRN PRN Reason: PROTOCOL Stop: 07/16/17 09:33 Miscellaneous (Tpn Per Pharmacy) 1 [facility] PRN PRN PRN Reason: PROTOCOL Stop: 07/24/17 15:59 Mupirocin (Bactroban Oint) 1 appl TP BID YESSICA Stop: 07/14/17 16:59 Last Admin: 05/27/17 08:31 Dose: 1 appl Pantoprazole Sodium (Protonix) 40 mg GT DAILY YESSICA Stop: 07/14/17 08:59 Last Admin: 05/27/17 08:28 Dose: 40 mg General: no acute distress, well developed, well nourished, cachectic HEENT: atraumatic, normocephalic, EOMI Neck: supple, no thyromegaly Cardiovascular: S1S2, regular Lungs: clear to auscultation bilaterally, clear to percussion Abdomen: soft, no tender, no distended Extremities: no cyanosis, no clubbing, no edema Neurological: awake, alert, oriented - Procedures Procedures: Procedures Procedure Code Date INSERT EMERGENCY AIRWAY 15776 05/13/17 INSERT TUNNELED CV CATH [id number] 05/13/17 INSERTION OF ENDOTRACHEAL AIRWAY INTO [place]HEA, VIA OPENING [id number] 05/13/17 INSERTION OF INFUSION DEV INTO R FEMOR VEIN, PERC APPROACH [id number] 05/13/17 RESPIRATORY VENTILATION, GREATER THAN 96 CONSECUTIVE HOURS [id number] 05/13/17 VENT MGMT INPAT INIT DAY 35842 05/13/17 Infectious Disease Assmt/Plan - Problem List Patient Problems: All Active Problems COUGH AND CONGESTION (Acute) - Assessment Assessment: 1. Pneuimonia.? Aspiration. 2. NICK. 3. CVA. 4. CHF. 5. CKD4. NICK mild rise in creatinine. 6. Afib with rapid ventricular response. Plan: Continue tygacil D7/10. Nutritional Asmnt/Malnutr-PDOC - Dietary Evaluation Malnutrition Findings (Please click <Entered> for more info): Nutritional Asmnt/Malnutrition Start: 05/15/17 13: 56 Text: Status: Complete Freq: Document 05/15/17 13:56 GSUN (Rec: 05/15/17 14:18 GSTHALIA [email or web address]) Nutritional Asmnt/Malnutrition Patient General Information Nutritional Screening High Risk Screening Diagnosis PNA, NICK, icnreasing renal failure, CVA, CHF, DM Pertinent Medical Hx/Surgical Hx CVA, dementia, afib, CAD, HTN, dyslipidemia, epilepsy, GERD, aspiration PNA, DM, CKD, dehydration, C. diff, anemia D Subjective Information 86 year old male from SNF. Pt greeted RD. Pt is overall thin , moderate to severe wasting to chest, clavicles, extremities. Observed Glytrol running at 60ml/hr x20hrs during visit. Unable to obtain CBW due to bedscale not calibrated. Discussed with YVETTE Farooq regarding tube feeding recommendations. Current Diet Order/ Nutrition Support Glytrol at 60ml/hr x 20hrs, providing 1200kcal 54g protein Pertinent Medications Lipitor, Novolog, Levemir, Cephulac, Morphine, Protonix, Nacl 0.9% Pertinent Labs 05/13: potassium 5.3H, BUN 80H, creatinine 2.4H, glucose 103 05/15: potassium WNL, BUN 70H, creatinine 2.4H, glucose 239H, A1c 6.1H, phosphorus 5.4H Nutritional Hx/Data Height 1.68 m Height (Calculated Centimeters) 167.6 Current Weight (lbs) 65.771 kg Weight (Calculated Kilograms) 65.8 Weight (Calculated Grams) 61964.9 [place] Body Weight 142 Weight Status Approriate GI Symptoms Difficult in: Swallowing Cultural/Ethnic/Sabianism Belief [place] [facility]: Glucerna 1.2 at 85ml/hr x 20hrs, providing 2040kcal, promote weight gain. Skin Integrity/Comment: Gee 12. Skin intact. Estimated Nutritional Goals Calories/Kcals/Kg CBW 145lb/65.9kg Kcals Calculated 1976-7kcal (30-35kcal/kg) Protein Calculated 46-92g (0.7-1.4g/kg, renal vs moderate to severe wasting) Fluid: ml Per MD (renal) Nutritional Problem 2. Problem Problem Impaired nutrient utilization related to Etiology NICK, hx CKD aeb Signs/Symptoms: "increasing renal failure," potaasum 5.3H on adm, BUN 70H, conveyor feeder offbearer 2.4H, phosphorus 5.4H 1. Problem Problem Inadequate intake from enteral nutrition infusion related to Etiology estimated nutritional needs aeb Signs/Symptoms: providing to meet 61% lower end kcal needs Intervention/Recommendation Comments 1. Recommend Novasource Renal at 50ml/hr x 20hrs, providing 2000kcal and 91g protein. Current order Glytrol at 60ml/ hr x 20hrs is only providing 1200kcal, pt recieves 2040kcal at [facility]. Expected Outcomes/Goals Expected Outcomes/Goals 1. Pt to meet at least 100% of estimated nutritional needs on tube feeding with tolerance .
--- NOTE | 2017-05-27 13:51 | General Progress Note ---
Subjective - Review of Systems Service Date: 05/27/17 Subjective: sleeping, on vent, nonverbal Objective - Results Result Diagrams: 05/27/17 05:00 05/27/17 05:00 Recent Labs: Laboratory Last Values WBC 9.6 Th/cmm (4.8-10.8) 05/27/17 05:00 RBC 3.10 Mil/cmm (3.80-5.80) L 05/27/17 05:00 Hgb 8.9 gm/dL (12.6-17.4) L 05/27/17 05:00 Hct 26.2 % (39.0-49.0) L 05/27/17 05:00 MCV 84.3 fl (80-99) 05/27/17 05:00 MCH 28.5 pg (27.0-31.0) 05/27/17 05:00 MCHC Differential 33.8 pg (28.0-36.0) 05/27/17 05:00 RDW 15.8 % (11.5-20.0) 05/27/17 05:00 Plt Count 243 Th/cmm (150-400) 05/27/17 05:00 MPV 8.2 fl 05/27/17 05:00 Neutrophils % 79.8 % (40.0-80.0) 05/27/17 05:00 Band Neutrophils % 2 % (0-10) 05/26/17 04:40 Lymphocytes % 11.4 % (20.0-50.0) L 05/27/17 05:00 Monocytes % 7.3 % (2.0-10.0) 05/27/17 05:00 Eosinophils % 1.3 % (0.0-5.0) 05/27/17 05:00 Basophils % 0.2 % (0.0-2.0) 05/27/17 05:00 Neutrophils (Manual) 89 % (40-80) H 05/26/17 04:40 Lymphocytes 5 % (20-50) L 05/26/17 04:40 Monocytes 4 % (2-10) 05/26/17 04:40 Eosinophils 0 % (0-5) 05/24/17 04:49 Basophils 0 % (0-3) 05/24/17 04:49 Metamyelocytes 1 % (0-0) H 05/22/17 04:44 Toxic Granulation 1+ 05/23/17 04:48 Platelet Estimate ADEQUATE (NORMAL) 05/26/17 04:40 Platelet Morphology NORMAL (NORMAL) 05/26/17 04:40 Anisocytosis 1+ 05/22/17 04:44 RBC Morph Micro Appear NORMAL (NORMAL) 05/26/17 04:40 Eos Smear Source URINE 05/14/17 18:00 Eos Smear Total Cells FEW EOSINOPHILS SEEN (NONE SEEN) 05/14/17 18:00 PT 11.9 SECONDS (9.5-11.5) H 05/13/17 17:42 INR 1.13 (0.5-1.4) 05/13/17 17:42 PTT (Actin FS) 30.5 SECONDS (26.0-38.0) 05/15/17 12:30 Specimen Source Arterial 05/27/17 09:23 Sample Site Right Radial 05/27/17 09:23 pH 7.33 (7.35-7.45) L 05/27/17 09:23 pCO2 45.0 mmHg (35.0-45.0) 05/27/17 09:23 pO2 100.0 mmHg (80.0-100.0) 05/27/17 09:23 HCO3 23.1 mEq/L (20.0-26.0) 05/27/17 09:23 Base Excess -2.4 mEq/L (-3.0-3.0) 05/27/17 09:23 O2 Saturation 97.0 % (92.0-100.0) 05/27/17 09:23 [place]o Test Positive 05/27/17 09:23 Vent Rate 12 05/27/17 09:23 Inspired O2 40 05/27/17 09:23 Tidal Volume 500 05/27/17 09:23 PEEP NA 05/27/17 09:23 Pressure (ins/psv/peep) 15 05/27/17 09:23 Critical Value LZHANG 05/27/17 09:23 Sodium 132 mEq/L (136-145) L 05/27/17 05:00 Potassium 4.2 mEq/L (3.5-5.1) 05/27/17 05:00 Chloride 99 mEq/L (98-107) 05/27/17 05:00 Carbon Dioxide 22.4 mEq/L (21.0-31.0) 05/27/17 05:00 Anion Gap 14.8 (7.0-16.0) 05/27/17 05:00 BUN 94 mg/dL (7-25) H* 05/27/17 05:00 Creatinine 3.3 mg/dL (0.7-1.3) H 05/27/17 05:00 Est GFR ( Amer) TNP 05/27/17 05:00 Est GFR (Non-Af Amer) TNP 05/27/17 05:00 BUN/Creatinine Ratio 28.5 05/27/17 05:00 Glucose 202 mg/dL (70-105) H 05/27/17 05:00 POC Glucose 187 MG/DL (70 - 105) H 05/27/17 13:13 Hemoglobin A1c % 6.1 % (4.0-6.0) H 05/15/17 06:30 Plasma/Ser Osmolality 301 mOsmol/kg (280-301) 05/14/17 18:20 Whole Bld Lactic Acid 1.58 mmol/L (0.60-1.99) 05/13/17 17:42 Uric Acid 7.7 mg/dL (4.4-7.6) H 05/15/17 06:30 Calcium 8.9 mg/dL (8.6-10.3) 05/27/17 05:00 Phosphorus 6.0 mg/dL (2.5-5.0) H 05/27/17 05:00 Magnesium 2.1 mg/dL (1.9-2.7) 05/27/17 05:00 Total Bilirubin 0.9 mg/dL (0.3-1.0) 05/27/17 05:00 Direct Bilirubin 0.09 mg/dL (0.0-0.2) 05/19/17 04:50 AST 50 U/L (13-39) H 05/27/17 05:00 ALT 5 U/L (7-52) L 05/27/17 05:00 Alkaline Phosphatase 120 U/L (34-104) H 05/27/17 05:00 Ammonia 65 umol/L (16-53) H 05/19/17 04:50 Creatine Kinase 35 U/L (30-223) 05/16/17 23:06 Troponin I 0.02 ng/mL (0.01-0.05) 05/16/17 23:06 B-Natriuretic Peptide 739.0 pg/mL (5.0-100.0) H 05/23/17 04:48 Total Protein 5.9 gm/dL (6.0-8.3) L 05/27/17 05:00 Albumin 2.8 gm/dL (4.2-5.5) L 05/27/17 05:00 Globulin 3.1 gm/dL 05/27/17 05:00 Albumin/Globulin Ratio 0.9 (1.0-1.8) L 05/27/17 05:00 Prealbumin 9 mg/dL (9-32) 05/24/17 04:49 Triglycerides 47 mg/dL (<150) 05/24/17 04:49 Cholesterol 55 mg/dL (<200) 05/24/17 04:49 TSH 2.74 uIU/ml (0.34-5.60) 05/15/17 06:30 Urine Source CATH 05/13/17 19:50 Urine Color YELLOW 05/13/17 19:50 Urine Clarity CLOUDY (CLEAR) 05/13/17 19:50 Urine pH 6.0 05/13/17 19:50 Ur Specific [place] 1.015 (1.005-1.030) 05/13/17 19:50 Urine Protein 100 mg/dL (NEGATIVE) H 05/13/17 19:50 Urine Glucose (UA) NEGATIVE mg/dL (NEGATIVE) 05/13/17 19:50 Urine Ketones NEGATIVE mg/dL (NEGATIVE) 05/13/17 19:50 Urine Blood LARGE (NEGATIVE) H 05/13/17 19:50 Urine Nitrate NEGATIVE (NEGATIVE) 05/13/17 19:50 Urine Bilirubin NEGATIVE (NEGATIVE) 05/13/17 19:50 Urine Urobilinogen 0.2 E.U./dL (0.2 - 1.0) 05/13/17 19:50 Ur Leukocyte Esterase LARGE (NEGATIVE) H 05/13/17 19:50 Urine RBC 50-100 /hpf (0-5) H 05/13/17 19:50 Urine WBC >100 /hpf (0-5) H 05/13/17 19:50 Ur Epithelial Cells NONE SEEN /lpf (FEW) 05/13/17 19:50 Urine Bacteria NONE SEEN /hpf (NONE SEEN) 05/13/17 19:50 Ur Random Sodium 30 mmol/L 05/14/17 18:00 Urine Creatinine 36.4 mg/dl (Not Estab.) 05/14/17 18:00 Urine Microalbumin 363.5 ug/mL (Not Estab.) 05/14/17 18:00 Microalb/Creat Ratio 998.6 mg/g creat (0.0-30.0) H 05/14/17 18:00 Stool Occult Blood NEGATIVE (NEGATIVE) 05/25/17 17:49 Random Vancomycin 19.1 ug/mL (5.0-40.0) 05/19/17 04:50 Hepatitis A IgM Ab Negative (Negative) 05/21/17 04:46 Hep Bs Antigen Negative (Negative) 05/21/17 04:46 Hep B Core IgM Ab Negative (Negative) 05/21/17 04:46 Hepatitis C Antibody 0.1 s/co ratio (0.0-0.9) 05/21/17 04:46 Blood Type B POSITIVE 05/21/17 10:19 Antibody Screen NEGATIVE 05/21/17 10:19 Crossmatch See Detail 05/21/17 10:19 - Physical Exam Vitals and I&O: Vital Signs Temp 96.7 F 05/27/17 08:00 Pulse 94 05/27/17 13:31 Resp 12 05/27/17 10:00 BP 164/83 05/27/17 13:31 Pulse Ox 99 05/27/17 11:55 Intake & Output 05/26/17 05/27/17 05/27/17 18:59 06:59 18:59 Intake Total 250 730 Output Total 150 150 Balance 100 580 Weight (lbs) 67.132 kg 67.67 kg Intake: Intake, IV Amount 100 150 Fluconazole 100mg/50mL 50 100 mg In 50 ml @ 50 mls/ hr IV Q24HR YESSICA Rx#: [id number] Tigecycline 50 mg In 100 100 Sodium Chloride 0.9% 100 ml @ 100 mls/hr IV Q12H YESSICA Rx#:[id number] TPN/PPN 480 Other 150 100 Output: Urine 150 150 Other: # Bowel Movements 1 1 Stool Characteristics Soft Liquid Brown Active Medications: Current Medications Acetaminophen (Tylenol) 650 mg PO Q4HR PRN PRN Reason: Pain Or Fever above 101 Stop: 07/14/17 15:15 Last Admin: 05/23/17 15:07 Dose: 650 mg Albuterol/Ipratropium (Duoneb Neb) 3 ml HHN Q4HRT [facility] Stop: 07/19/17 14:59 Last Admin: 05/27/17 11:50 Dose: 3 ml Atorvastatin Calcium (Lipitor) 10 mg GT HS YESSICA PRN Reason: Protocol Stop: 07/14/17 20:59 Last Admin: 05/26/17 21:40 Dose: 10 mg Budesonide (Pulmicort) 1 mg HHN BIDRT [facility] Stop: 07/19/17 18:59 Last Admin: 05/27/17 07:51 Dose: 1 mg Carbidopa/Levodopa (Sinemet 25mg-100 Mg) 1 tab PO TID [facility] Stop: 07/14/17 08:59 Last Admin: 05/27/17 13:31 Dose: 1 tab Chlorhexidine Gluconate (Peridex) 15 ml MM 0800,2000 [facility] Stop: 07/23/17 19:59 Last Admin: 05/27/17 08:33 Dose: 15 ml Dextrose (D50w) 50 ml IVP PRN PRN; Protocol PRN Reason: HYPOGLYCEMIA Stop: 07/20/17 00:54 Last Admin: 05/22/17 23:34 Dose: 50 ml Diltiazem HCl (Cardizem) 10 mg IVP Q6HR PRN PRN Reason: HR >130 Stop: 07/22/17 17:09 Last Admin: 05/24/17 04:21 Dose: 10 mg Furosemide (Lasix) 40 mg IVP DAILY [facility] Stop: 07/18/17 08:59 Last Admin: 05/27/17 08:30 Dose: 40 mg Heparin Sodium (Porcine) (Heparin) 5,000 units SUBQ Q8HR [facility] Stop: 07/22/17 20:59 Last Admin: 05/27/17 13:32 Dose: 5,000 units Norepinephrine Bitartrate 8 mg (/ Dextrose) 258 mls @ 0 mls/hr IV TITR PRN; Protocol; Titrate PRN Reason: BP MAINTENANCE (PER PROTOCOL) Stop: 07/19/17 12:29 Last Admin: 05/21/17 01:06 Dose: 10 mcg/min, 19.35 mls/hr Phenylephrine HCl 10 mg/ (Sodium Chloride) 250 mls @ 0 mls/hr IV TITR YESSICA; Per Protocol PRN Reason: Protocol Stop: 07/19/17 12:59 Tigecycline 50 mg/ Sodium (Chloride) 100 mls @ 100 mls/hr IV Q12H [facility] Stop: 07/21/17 18:59 Last Admin: 05/27/17 06:37 Dose: 100 mls/hr Fluconazole (Diflucan) 100 mg in 50 mls @ 50 mls/hr IV Q24HR [facility] Stop: 07/21/17 04:59 Last Infusion: 05/27/17 05:45 Dose: Infused Multivitamins/Minerals 10 ml/Amino Acids/Electrolytes/Dextrose/ Fat Emulsion Intravenous 960 mls @ 40 mls/hr IV .Q24H [facility] Stop: 05/27/17 15:59 Last Admin: 05/26/17 16:00 Dose: 40 mls/hr Albumin Human (Albuminar 25%) 25 gm in 100 mls @ 50 mls/hr IV X1 ONE Stop: 05/27/17 15:52 Last Admin: 05/27/17 13:32 Dose: 50 mls/hr Albumin Human (Albuminar 25%) 25 gm in 100 mls @ 50 mls/hr IV X1 ONE Stop: 05/27/17 15:53 Insulin Aspart (Novolog Insulin Sliding Scale) 0 units SUBQ Q6HR [facility] PRN Reason: Protocol Stop: 07/14/17 00:00 Last Admin: 05/27/17 06:13 Dose: Not Given Ipratropium [place] (Atrovent Neb 0.5mg/2.5ml) 0.5 mg HHN Q4HRT [facility] Stop: 07/17/17 14:59 Last Admin: 05/24/17 03:19 Dose: 0.5 mg Isosorbide Dinitrate (Isordil) 10 mg GT TID [facility] Stop: 07/14/17 08:59 Last Admin: 05/27/17 13:31 Dose: 10 mg Lactobacillus Rhamnosus (Culturelle) 1 each PO DAILY [facility] Stop: 07/17/17 08:59 Last Admin: 05/27/17 08:28 Dose: 1 each Levetiracetam (Keppra) 250 mg NG BID [facility] Stop: 07/14/17 08:59 Last Admin: 05/27/17 08:29 Dose: 250 mg Lorazepam (Ativan) 1 mg IVP Q4H PRN; Protocol PRN Reason: Agitation Stop: 07/19/17 09:02 Last Admin: 05/25/17 01:02 Dose: 1 mg Metoclopramide HCl (Reglan) 5 mg IVP TID [facility] Stop: 07/20/17 20:59 Last Admin: 05/27/17 13:32 Dose: 5 mg Metoprolol Tartrate (Lopressor) 50 mg GT Q8H [facility] Stop: 07/18/17 08:59 Last Admin: 05/27/17 09:00 Dose: 50 mg Miscellaneous (Vte Chemical Prophylaxis Screen/ Admission) 1 [facility] PRN PRN PRN Reason: PROTOCOL Stop: 07/14/17 09:25 Miscellaneous (Clinical Monitoring) 1 [facility] DAILY PRN PRN Reason: RENAL Stop: 07/15/17 12:32 Miscellaneous (Probiotic Screen) 1 [facility] PRN PRN PRN Reason: PROTOCOL Stop: 07/16/17 09:33 Miscellaneous (Tpn Per Pharmacy) 1 [facility] PRN PRN PRN Reason: PROTOCOL Stop: 07/24/17 15:59 Mupirocin (Bactroban Oint) 1 appl TP BID [facility]ESS[facility] Stop: 07/14/17 16:59 Last Admin: 05/27/17 08:31 Dose: 1 appl Pantoprazole Sodium (Protonix) 40 mg GT DAILY [facility] Stop: 07/14/17 08:59 Last Admin: 05/27/17 08:28 Dose: 40 mg General: No acute distress, no Alert HEENT: Mucous membr. moist/pink Neck: Supple, +2 carotid pulse wo bruit Cardiovascular: Other (afib with fluctuating heart rate) Lungs: Other (occasional rhonchi, breathing is tight, fine expiratory wheeze) Abdomen: Soft Extremities: Edema Neurological: Other (lethargic) Skin: no Rash Psych/Mental Status: Mood NL - Procedures Procedures: Procedures Procedure Code Date INSERT EMERGENCY AIRWAY 69849 05/13/17 INSERT TUNNELED CV CATH 20136 05/13/17 INSERTION OF ENDOTRACHEAL AIRWAY INTO TRACHEA, VIA OPENING [id number] 05/13/17 INSERTION OF INFUSION DEV INTO R FEMOR VEIN, PERC APPROACH [id number] 05/13/17 RESPIRATORY VENTILATION, GREATER THAN 96 CONSECUTIVE HOURS [id number] 05/13/17 VENT MGMT INPAT INIT DAY 78205 07/11/17 Assessment/Plan - Problem List Patient Problems: All Active Problems COUGH AND CONGESTION (Acute) - Assessment Assessment: NICK on CKD, now on dialysis A LOC secondary to metabolic encephalopathy/medications Dehydration Essential hypertension with CKD COPD Chronic atrial fibrillation Status post CVA Aspiration pneumonia/dysphagia status post PEG Type 2 diabetes mellitus with CKD Acute Decompensated CHF Acute Resp Failure on Vent Bradycardia - Plan Plan: Lab - Result Diagrams 05/15/17 06:30 05/15/17 06:30 Current Medications Acetaminophen (Tylenol) 650 mg PO Q4HR PRN PRN Reason: Pain Or Fever above 101 Stop: 07/14/17 15:15 Last Admin: 05/15/17 16:21 Dose: 650 mg Albuterol Sulfate (Albuterol 2.5mg/3ml Neb Ud) 2.5 mg HHN Q6HRT [facility] Stop: 07/14/17 00:59 Last Admin: 05/15/17 16:05 Dose: 2.5 mg Atorvastatin Calcium (Lipitor) 10 mg GT HS [facility] PRN Reason: Protocol Stop: 07/14/17 20:59 Carbidopa/Levodopa (Sinemet 25mg-100 Mg) 1 tab PO TID [facility] Stop: 07/14/17 08:59 Last Admin: 05/15/17 14:02 Dose: 1 tab Heparin Sodium (Porcine) (Heparin) 5,000 units SUBQ Q8H [facility] Stop: 07/14/17 14:59 Last Admin: 05/15/17 16:24 Dose: 5,000 units Sodium Chloride (Nacl 0.9%) 1,000 mls @ 60 mls/hr IV .[id number] [facility] Stop: 07/13/17 06:40 Last Admin: 05/14/17 17:16 Dose: 60 mls/hr Azithromycin 250 mg/ Sodium (Chloride) 250 mls @ 250 mls/hr IV Q24HR [facility] Stop: 05/20/17 08:59 Piperacillin Sod/Tazobactam (Sod 3.375 gm/ Sodium Chloride) 50 mls @ 100 mls/ hr IV Q8HR [facility] Stop: 07/14/17 15:14 Last Admin: 05/15/17 15:57 Dose: 100 mls/hr Insulin Aspart (Novolog Insulin Sliding Scale) 0 units SUBQ Q6HR [facility] PRN Reason: Protocol Stop: 07/14/17 00:00 Last Admin: 05/15/17 17:09 Dose: Not Given Insulin Detemir (Levemir Insulin) 14 units SUBQ DAILY [facility] PRN Reason: Protocol Stop: 07/15/17 08:59 Isosorbide Dinitrate (Isordil) 10 mg GT TID [facility] Stop: 07/14/17 08:59 Last Admin: 05/15/17 14:02 Dose: 10 mg Lactulose (Cephulac) 20 gm PO TID [facility] Stop: 07/14/17 08:59 Last Admin: 05/15/17 14:02 Dose: 20 gm Levetiracetam (Keppra) 250 mg NG BID [facility] Stop: 07/14/17 08:59 Last Admin: 05/15/17 16:23 Dose: 250 mg Metoprolol Tartrate (Lopressor) 37.5 mg GT BID [facility] Stop: 07/14/17 00:14 Last Admin: 05/15/17 16:22 Dose: 37.5 mg Miscellaneous (Vte Chemical Prophylaxis Screen/ Admission) 1 [facility] PRN PRN PRN Reason: PROTOCOL Stop: 07/14/17 09:25 Morphine Sulfate (Morphine) 2 mg IVP Q3H PRN PRN Reason: PAIN Stop: 07/13/17 19:46 Last Admin: 05/14/17 21:16 Dose: 2 mg Mupirocin (Bactroban Oint) 1 appl TP BID [facility] Stop: 07/14/17 16:59 Last Admin: 05/15/17 16:24 Dose: 1 appl Pantoprazole Sodium (Protonix) 40 mg GT DAILY [facility] Stop: 07/14/17 08:59 Last Admin: 05/15/17 08:36 Dose: 40 mg Rifaximin (Xifaxan) 550 mg GT BID [facility] Stop: 07/14/17 08:59 Last Admin: 05/15/17 16:23 Dose: 550 mg Kidney function decreased with a BUN 94 and creatinine of 3.3 Sodium down to 132 White count down to 9.6 on Zosyn Chest x-ray still w/ b/l infiltrates, right effusion, and elevated BNP of 739 Reviewed his meds Follow-up electrolytes currently on PPN @ 40 ml /hr prognosis poor Hgb/Hct down to 8.9/26.2 schedule for HD tomorrow since still has chf on cxr & elevated BNP Follow-up electrolytes, CBC and chest x-ray in a.m. urine ouput minimal Lab - Result Diagrams 05/24/17 04:49 05/24/17 04:49 addendum: Poor response to diuretics, w/ worsening CHF, BNP level developed resp failure, required intubation worsening cardio-renal syndrome discussed w/ grandson Pedro, about poor prognosis but still want to proceed w/ dialysis Nutritional Asmnt/Malnutr-PDOC - Dietary Evaluation Malnutrition Findings (Please click <Entered> for more info): Nutritional Asmnt/Malnutrition Start: 05/15/17 13: 56 Text: Status: Complete Freq: Document 05/15/17 13:56 GSUN (Rec: 05/15/17 14:18 GSTHALIA [email or web address]) Nutritional Asmnt/Malnutrition Patient General Information Nutritional Screening High Risk Screening Diagnosis PNA, NICK, icnreasing renal failure, CVA, CHF, DM Pertinent Medical Hx/Surgical Hx CVA, dementia, afib, CAD, HTN, dyslipidemia, epilepsy, GERD, aspiration PNA, DM, CKD, dehydration, C. diff, anemia D Subjective Information 86 year old male from SNF. Pt greeted RD. Pt is overall thin , moderate to severe wasting to chest, clavicles, extremities. Observed Glytrol running at 60ml/hr x20hrs during visit. Unable to obtain CBW due to bedscale not calibrated. Discussed with YVETTE Farooq regarding tube feeding recommendations. Current Diet Order/ Nutrition Support Glytrol at 60ml/hr x 20hrs, providing 1200kcal 54g protein Pertinent Medications Lipitor, Novolog, Levemir, Cephulac, Morphine, Protonix, Nacl 0.9% Pertinent Labs 05/13: potassium 5.3H, BUN 80H, creatinine 2.4H, glucose 103 05/15: potassium WNL, BUN 70H, creatinine 2.4H, glucose 239H, A1c 6.1H, phosphorus 5.4H Nutritional Hx/Data Height 1.68 m Height (Calculated Centimeters) 167.6 Current Weight (lbs) 65.771 kg Weight (Calculated Kilograms) 65.8 Weight (Calculated Grams) 85631.9 [place] Body Weight 142 Weight Status Approriate GI Symptoms Difficult in: Swallowing Cultural/Ethnic/Scientologist [facility]: Glucerna 1.2 at 85ml/hr x 20hrs, providing 2040kcal, promote weight gain. Skin Integrity/Comment: Gee 12. Skin intact. Estimated Nutritional Goals Calories/Kcals/Kg CBW 145lb/65.9kg Kcals Calculated 1976-2307kcal (30-35kcal/kg) Protein Calculated 46-92g (0.7-1.4g/kg, renal vs moderate to severe wasting) Fluid: ml Per MD (renal) Nutritional Problem 2. Problem Problem Impaired nutrient utilization related to Etiology NICK, hx CKD aeb Signs/Symptoms: "increasing renal failure," potaasum 5.3H on adm, BUN 70H, technical asst 2.4H, phosphorus 5.4H 1. Problem Problem Inadequate intake from enteral nutrition infusion related to Etiology estimated nutritional needs aeb Signs/Symptoms: providing to meet 61% lower end kcal needs Intervention/Recommendation Comments 1. Recommend Novasource Renal at 50ml/hr x 20hrs, providing 2000kcal and 91g protein. Current order Glytrol at 60ml/ hr x 20hrs is only providing 1200kcal, pt recieves 2040kcal at [facility]. Expected Outcomes/Goals Expected Outcomes/Goals 1. Pt to meet at least 100% of estimated nutritional needs on tube feeding with tolerance .
[2017-05-27] MEDS ORDERED: Albumin 25% 25gm/100mL 25 GM/100 ML BTL IV ONE ×2 (13:53→13:54)
--- NOTE | 2017-05-27 15:49 | General Progress Note ---
Subjective - Review of Systems Service Date: 05/27/17 Subjective: Patient seen and examined sleeping no new events reported Objective - Results Result Diagrams: 05/27/17 05:00 05/27/17 05:00 Recent Labs: Laboratory Last Values WBC 9.6 Th/cmm (4.8-10.8) 05/27/17 05:00 RBC 3.10 Mil/cmm (3.80-5.80) L 05/27/17 05:00 Hgb 8.9 gm/dL (12.6-17.4) L 05/27/17 05:00 Hct 26.2 % (39.0-49.0) L 05/27/17 05:00 MCV 84.3 fl (80-99) 05/27/17 05:00 MCH 28.5 pg (27.0-31.0) 05/27/17 05:00 MCHC Differential 33.8 pg (28.0-36.0) 05/27/17 05:00 RDW 15.8 % (11.5-20.0) 05/27/17 05:00 Plt Count 243 Th/cmm (150-400) 05/27/17 05:00 MPV 8.2 fl 05/27/17 05:00 Neutrophils % 79.8 % (40.0-80.0) 05/27/17 05:00 Band Neutrophils % 2 % (0-10) 05/26/17 04:40 Lymphocytes % 11.4 % (20.0-50.0) L 05/27/17 05:00 Monocytes % 7.3 % (2.0-10.0) 05/27/17 05:00 Eosinophils % 1.3 % (0.0-5.0) 05/27/17 05:00 Basophils % 0.2 % (0.0-2.0) 05/27/17 05:00 Neutrophils (Manual) 89 % (40-80) H 05/26/17 04:40 Lymphocytes 5 % (20-50) L 05/26/17 04:40 Monocytes 4 % (2-10) 05/26/17 04:40 Eosinophils 0 % (0-5) 05/24/17 04:49 Basophils 0 % (0-3) 05/24/17 04:49 Metamyelocytes 1 % (0-0) H 05/22/17 04:44 Toxic Granulation 1+ 05/23/17 04:48 Platelet Estimate ADEQUATE (NORMAL) 05/26/17 04:40 Platelet Morphology NORMAL (NORMAL) 05/26/17 04:40 Anisocytosis 1+ 05/22/17 04:44 RBC Morph Micro Appear NORMAL (NORMAL) 05/26/17 04:40 Eos Smear Source URINE 05/14/17 18:00 Eos Smear Total Cells FEW EOSINOPHILS SEEN (NONE SEEN) 05/14/17 18:00 PT 11.9 SECONDS (9.5-11.5) H 05/13/17 17:42 INR 1.13 (0.5-1.4) 05/13/17 17:42 PTT (Actin FS) 30.5 SECONDS (26.0-38.0) 05/15/17 12:30 Specimen Source Arterial 05/27/17 09:23 Sample Site Right Radial 05/27/17 09:23 pH 7.33 (7.35-7.45) L 05/27/17 09:23 pCO2 45.0 mmHg (35.0-45.0) 05/27/17 09:23 pO2 100.0 mmHg (80.0-100.0) 05/27/17 09:23 HCO3 23.1 mEq/L (20.0-26.0) 05/27/17 09:23 Base Excess -2.4 mEq/L (-3.0-3.0) 05/27/17 09:23 O2 Saturation 97.0 % (92.0-100.0) 05/27/17 09:23 [place] Test Positive 05/27/17 09:23 Vent Rate 12 05/27/17 09:23 Inspired O2 40 05/27/17 09:23 Tidal Volume 500 05/27/17 09:23 PEEP NA 05/27/17 09:23 Pressure (ins/psv/peep) 15 05/27/17 09:23 Critical Value LZHANG 05/27/17 09:23 Sodium 132 mEq/L (136-145) L 05/27/17 05:00 Potassium 4.2 mEq/L (3.5-5.1) 05/27/17 05:00 Chloride 99 mEq/L (98-107) 05/27/17 05:00 Carbon Dioxide 22.4 mEq/L (21.0-31.0) 05/27/17 05:00 Anion Gap 14.8 (7.0-16.0) 05/27/17 05:00 BUN 94 mg/dL (7-25) H* 05/27/17 05:00 Creatinine 3.3 mg/dL (0.7-1.3) H 05/27/17 05:00 Est GFR ( Amer) TNP 05/27/17 05:00 Est GFR (Non-Af Amer) TNP 05/27/17 05:00 BUN/Creatinine Ratio 28.5 05/27/17 05:00 Glucose 202 mg/dL (70-105) H 05/27/17 05:00 POC Glucose 187 MG/DL (70 - 105) H 05/27/17 13:13 Hemoglobin A1c % 6.1 % (4.0-6.0) H 05/15/17 06:30 Plasma/Ser Osmolality 301 mOsmol/kg (280-301) 05/14/17 18:20 Whole Bld Lactic Acid 1.58 mmol/L (0.60-1.99) 05/13/17 17:42 Uric Acid 7.7 mg/dL (4.4-7.6) H 05/15/17 06:30 Calcium 8.9 mg/dL (8.6-10.3) 05/27/17 05:00 Phosphorus 6.0 mg/dL (2.5-5.0) H 05/27/17 05:00 Magnesium 2.1 mg/dL (1.9-2.7) 05/27/17 05:00 Total Bilirubin 0.9 mg/dL (0.3-1.0) 05/27/17 05:00 Direct Bilirubin 0.09 mg/dL (0.0-0.2) 05/19/17 04:50 AST 50 U/L (13-39) H 05/27/17 05:00 ALT 5 U/L (7-52) L 05/27/17 05:00 Alkaline Phosphatase 120 U/L (34-104) H 05/27/17 05:00 Ammonia 65 umol/L (16-53) H 05/19/17 04:50 Creatine Kinase 35 U/L (30-223) 05/16/17 23:06 Troponin I 0.02 ng/mL (0.01-0.05) 05/16/17 23:06 B-Natriuretic Peptide 739.0 pg/mL (5.0-100.0) H 05/23/17 04:48 Total Protein 5.9 gm/dL (6.0-8.3) L 05/27/17 05:00 Albumin 2.8 gm/dL (4.2-5.5) L 05/27/17 05:00 Globulin 3.1 gm/dL 05/27/17 05:00 Albumin/Globulin Ratio 0.9 (1.0-1.8) L 05/27/17 05:00 Prealbumin 9 mg/dL (9-32) 05/24/17 04:49 Triglycerides 47 mg/dL (<150) 05/24/17 04:49 Cholesterol 55 mg/dL (<200) 05/24/17 04:49 TSH 2.74 uIU/ml (0.34-5.60) 05/15/17 06:30 Urine Source CATH 05/13/17 19:50 Urine Color YELLOW 05/13/17 19:50 Urine Clarity CLOUDY (CLEAR) 05/13/17 19:50 Urine pH 6.0 05/13/17 19:50 Ur Specific [place] 1.015 (1.005-1.030) 05/13/17 19:50 Urine Protein 100 mg/dL (NEGATIVE) H 05/13/17 19:50 Urine Glucose (UA) NEGATIVE mg/dL (NEGATIVE) 05/13/17 19:50 Urine Ketones NEGATIVE mg/dL (NEGATIVE) 05/13/17 19:50 Urine Blood LARGE (NEGATIVE) H 05/13/17 19:50 Urine Nitrate NEGATIVE (NEGATIVE) 05/13/17 19:50 Urine Bilirubin NEGATIVE (NEGATIVE) 05/13/17 19:50 Urine Urobilinogen 0.2 E.U./dL (0.2 - 1.0) 05/13/17 19:50 Ur Leukocyte Esterase LARGE (NEGATIVE) H 05/13/17 19:50 Urine RBC 50-100 /hpf (0-5) H 05/13/17 19:50 Urine WBC >100 /hpf (0-5) H 05/13/17 19:50 Ur Epithelial Cells NONE SEEN /lpf (FEW) 05/13/17 19:50 Urine Bacteria NONE SEEN /hpf (NONE SEEN) 05/13/17 19:50 Ur Random Sodium 30 mmol/L 05/14/17 18:00 Urine Creatinine 36.4 mg/dl (Not Estab.) 05/14/17 18:00 Urine Microalbumin 363.5 ug/mL (Not Estab.) 05/14/17 18:00 Microalb/Creat Ratio 998.6 mg/g creat (0.0-30.0) H 05/14/17 18:00 Stool Occult Blood NEGATIVE (NEGATIVE) 05/25/17 17:49 Random Vancomycin 19.1 ug/mL (5.0-40.0) 05/19/17 04:50 Hepatitis A IgM Ab Negative (Negative) 05/21/17 04:46 Hep Bs Antigen Negative (Negative) 05/21/17 04:46 Hep B Core IgM Ab Negative (Negative) 05/21/17 04:46 Hepatitis C Antibody 0.1 s/co ratio (0.0-0.9) 05/21/17 04:46 Blood Type B POSITIVE 05/21/17 10:19 Antibody Screen NEGATIVE 05/21/17 10:19 Crossmatch See Detail 05/21/17 10:19 - Physical Exam Vitals and I&O: Vital Signs Temp 97 F 05/27/17 12:00 Pulse 79 05/27/17 15:00 Resp 12 05/27/17 15:00 BP 155/78 05/27/17 15:00 Pulse Ox 99 05/27/17 15:00 Intake & Output 05/26/17 05/27/17 05/27/17 18:59 06:59 18:59 Intake Total 250 730 Output Total 150 150 Balance 100 580 Weight (lbs) 67.132 kg 67.67 kg Intake: Intake, IV Amount 100 150 Fluconazole 100mg/50mL 50 100 mg In 50 ml @ 50 mls/ hr IV Q24HR YESSICA Rx#: [id number] Tigecycline 50 mg In 100 100 Sodium Chloride 0.9% 100 ml @ 100 mls/hr IV Q12H YESSICA Rx#:[id number] TPN/PPN 480 Other 150 100 Output: Urine 150 150 Other: # Bowel Movements 1 1 Stool Characteristics Soft Liquid Brown Active Medications: Current Medications Acetaminophen (Tylenol) 650 mg PO Q4HR PRN PRN Reason: Pain Or Fever above 101 Stop: 07/14/17 15:15 Last Admin: 05/23/17 15:07 Dose: 650 mg Albuterol/Ipratropium (Duoneb Neb) 3 ml HHN Q4HRT [facility] Stop: 07/19/17 14:59 Last Admin: 05/27/17 11:50 Dose: 3 ml Atorvastatin Calcium (Lipitor) 10 mg GT HS YESSICA PRN Reason: Protocol Stop: 07/14/17 20:59 Last Admin: 05/26/17 21:40 Dose: 10 mg Budesonide (Pulmicort) 1 mg HHN BIDRT [facility] Stop: 07/19/17 18:59 Last Admin: 05/27/17 07:51 Dose: 1 mg Carbidopa/Levodopa (Sinemet 25mg-100 Mg) 1 tab PO TID [facility] Stop: 07/14/17 08:59 Last Admin: 05/27/17 13:31 Dose: 1 tab Chlorhexidine Gluconate (Peridex) 15 ml MM 0800,2000 [facility] Stop: 07/23/17 19:59 Last Admin: 05/27/17 08:33 Dose: 15 ml Dextrose (D50w) 50 ml IVP PRN PRN; Protocol PRN Reason: HYPOGLYCEMIA Stop: 07/20/17 00:54 Last Admin: 05/22/17 23:34 Dose: 50 ml Diltiazem HCl (Cardizem) 10 mg IVP Q6HR PRN PRN Reason: HR >130 Stop: 07/22/17 17:09 Last Admin: 05/24/17 04:21 Dose: 10 mg Furosemide (Lasix) 40 mg IVP DAILY [facility] Stop: 07/18/17 08:59 Last Admin: 05/27/17 08:30 Dose: 40 mg Heparin Sodium (Porcine) (Heparin) 5,000 units SUBQ Q8HR [facility] Stop: 07/22/17 20:59 Last Admin: 05/27/17 13:32 Dose: 5,000 units Norepinephrine Bitartrate 8 mg (/ Dextrose) 258 mls @ 0 mls/hr IV TITR PRN; Protocol; Titrate PRN Reason: BP MAINTENANCE (PER PROTOCOL) Stop: 07/19/17 12:29 Last Admin: 05/21/17 01:06 Dose: 10 mcg/min, 19.35 mls/hr Phenylephrine HCl 10 mg/ (Sodium Chloride) 250 mls @ 0 mls/hr IV TITR YESSICA; Per Protocol PRN Reason: Protocol Stop: 07/19/17 12:59 Tigecycline 50 mg/ Sodium (Chloride) 100 mls @ 100 mls/hr IV Q12H [facility] Stop: 07/21/17 18:59 Last Admin: 05/27/17 06:37 Dose: 100 mls/hr Fluconazole (Diflucan) 100 mg in 50 mls @ 50 mls/hr IV Q24HR [facility] Stop: 07/21/17 04:59 Last Infusion: 05/27/17 05:45 Dose: Infused Multivitamins/Minerals 10 ml/Amino Acids/Electrolytes/Dextrose/ Fat Emulsion Intravenous 960 mls @ 40 mls/hr IV .Q24H [facility] Stop: 05/27/17 15:59 Last Admin: 05/26/17 16:00 Dose: 40 mls/hr Albumin Human (Albuminar 25%) 25 gm in 100 mls @ 50 mls/hr IV X1 ONE Stop: 05/27/17 15:52 Last Admin: 05/27/17 13:32 Dose: 50 mls/hr Albumin Human (Albuminar 25%) 25 gm in 100 mls @ 50 mls/hr IV X1 ONE Stop: 05/27/17 15:53 Multivitamins/Minerals 10 ml/Dextrose/ Amino Acids/Electrolytes/ Fat Emulsion Intravenous 960 mls @ 40 mls/hr IV .Q24H [facility] Stop: 07/26/17 15:59 Albumin Human (Albuminar 25%) 25 gm in 100 mls @ 50 mls/hr IV X1 ONE Stop: 05/28/17 15:54 Albumin Human (Albuminar 25%) 25 gm in 100 mls @ 50 mls/hr IV X1 ONE Stop: 05/28/17 15:55 Insulin Aspart (Novolog Insulin Sliding Scale) 0 units SUBQ Q6HR [facility] PRN Reason: Protocol Stop: 07/14/17 00:00 Last Admin: 05/27/17 06:13 Dose: Not Given Ipratropium [place] (Atrovent Neb 0.5mg/2.5ml) 0.5 mg HHN Q4HRT [facility] Stop: 07/17/17 14:59 Last Admin: 05/24/17 03:19 Dose: 0.5 mg Isosorbide Dinitrate (Isordil) 10 mg GT TID [facility] Stop: 07/14/17 08:59 Last Admin: 05/27/17 13:31 Dose: 10 mg Lactobacillus Rhamnosus (Culturelle) 1 each PO DAILY [facility] Stop: 07/17/17 08:59 Last Admin: 05/27/17 08:28 Dose: 1 each Levetiracetam (Keppra) 250 mg NG BID [facility] Stop: 07/14/17 08:59 Last Admin: 05/27/17 08:29 Dose: 250 mg Lorazepam (Ativan) 1 mg IVP Q4H PRN; Protocol PRN Reason: Agitation Stop: 07/19/17 09:02 Last Admin: 05/25/17 01:02 Dose: 1 mg Metoclopramide HCl (Reglan) 5 mg IVP TID [facility] Stop: 07/20/17 20:59 Last Admin: 05/27/17 13:32 Dose: 5 mg Metoprolol Tartrate (Lopressor) 50 mg GT Q8H [facility] Stop: 07/18/17 08:59 Last Admin: 05/27/17 09:00 Dose: 50 mg Miscellaneous (Vte Chemical Prophylaxis Screen/ Admission) 1 ea PRN PRN PRN Reason: PROTOCOL Stop: 07/14/17 09:25 Miscellaneous (Clinical Monitoring) 1 ea [facility] DAILY PRN PRN Reason: RENAL Stop: 07/15/17 12:32 Miscellaneous (Probiotic Screen) 1 ea PRN PRN PRN Reason: PROTOCOL Stop: 07/16/17 09:33 Miscellaneous (Tpn Per Pharmacy) 1 [facility] PRN PRN PRN Reason: PROTOCOL Stop: 07/24/17 15:59 Mupirocin (Bactroban Oint) 1 appl TP BID [facility] Stop: 07/14/17 16:59 Last Admin: 05/27/17 08:31 Dose: 1 appl Pantoprazole Sodium (Protonix) 40 mg GT DAILY [facility] Stop: 07/14/17 08:59 Last Admin: 05/27/17 08:28 Dose: 40 mg General: No acute distress, no Alert HEENT: Mucous membr. moist/pink Neck: Supple, +2 carotid pulse wo bruit Cardiovascular: Other (afib with fluctuating heart rate) Lungs: Other (occasional rhonchi, breathing is tight, fine expiratory wheeze) Abdomen: Soft Extremities: Edema Neurological: Other (lethargic) Skin: no Rash Psych/Mental Status: Mood NL - Procedures Procedures: Procedures Procedure Code Date INSERT EMERGENCY AIRWAY 25378 05/13/17 INSERT TUNNELED CV CATH 88369 05/13/17 INSERTION OF ENDOTRACHEAL AIRWAY INTO TRACHEA, VIA OPENING [id number] 05/13/17 INSERTION OF INFUSION DEV INTO R FEMOR VEIN, PERC APPROACH [id number] 05/13/17 RESPIRATORY VENTILATION, GREATER THAN 96 CONSECUTIVE HOURS [id number] 05/13/17 VENT MGMT INPAT INIT DAY 34023 05/13/17 Assessment/Plan - Problem List Patient Problems: All Active Problems COUGH AND CONGESTION (Acute) - Assessment Assessment: Current Active Problems Problem Status Onset COUGH AND CONGESTION Acute Altered mental status negative CT Brain Acute respiratory failure on vent improving Renal failure improving on HD MDRO Pneumonia Afib RVR UTI CAD 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 HTN renal disease Seizure disorder - Plan Plan: CT Head w/o contrast negative Heparin sub Q Cardizem iv prn Metoprolol Tygacil per ID rec HD per nephrology rec Continue vent support PPN started for nutritional support Off vasopressor Feeding on hold due to tolerance issue Case discussed with ID Plan of care discussed with nursing staff Plan of care discussed with nursing staff Nutritional Asmnt/Malnutr-PDOC - Dietary Evaluation Malnutrition Findings (Please click <Entered> for more info): Nutritional Asmnt/Malnutrition Start: 05/15/17 13: 56 Text: Status: Complete Freq: Document 05/15/17 13:56 GSUN (Rec: 05/15/17 14:18 GSUN [id number]) Nutritional Asmnt/Malnutrition Patient General Information Nutritional Screening High Risk Screening Diagnosis PNA, NICK, icnreasing renal failure, CVA, CHF, DM Pertinent Medical Hx/Surgical Hx CVA, dementia, afib, CAD, HTN, dyslipidemia, epilepsy, GERD, aspiration PNA, DM, CKD, dehydration, C. diff, anemia D Subjective Information 86 year old male from SNF. Pt greeted RD. Pt is overall thin , moderate to severe wasting to chest, clavicles, extremities. Observed Glytrol running at 60ml/hr x20hrs during visit. Unable to obtain CBW due to bedscale not calibrated. Discussed with YVETTE Farooq regarding tube feeding recommendations. Current Diet Order/ Nutrition Support Glytrol at 60ml/hr x 20hrs, providing 1200kcal 54g protein Pertinent Medications Lipitor, Novolog, Levemir, Cephulac, Morphine, Protonix, Nacl 0.9% Pertinent Labs 05/13: potassium 5.3H, BUN 80H, creatinine 2.4H, glucose 103 05/15: potassium WNL, BUN 70H, creatinine 2.4H, glucose 239H, A1c 6.1H, phosphorus 5.4H Nutritional Hx/Data Height 1.68 m Height (Calculated Centimeters) 167.6 Current Weight (lbs) 65.771 kg Weight (Calculated Kilograms) 65.8 Weight (Calculated Grams) 28050.9 [place] Body Weight 142 Weight Status Approriate GI Symptoms Difficult in: Swallowing Cultural/Ethnic/[employer] [place] [facility]: Glucerna 1.2 at 85ml/hr x 20hrs, providing 2040kcal, promote weight gain. Skin Integrity/Comment: Gee Novak. Skin intact. Estimated Nutritional Goals Calories/Kcals/Kg CBW 145lb/65.9kg Kcals Calculated 1976-7kcal (30-35kcal/kg) Protein Calculated 46-92g (0.7-1.4g/kg, renal vs moderate to severe wasting) Fluid: ml Per MD (renal) Nutritional Problem 2. Problem Problem Impaired nutrient utilization related to Etiology NICK, hx CKD aeb Signs/Symptoms: "increasing renal failure," potaasum 5.3H on adm, BUN 70H, grocery buyer 2.4H, phosphorus 5.4H 1. Problem Problem Inadequate intake from enteral nutrition infusion related to Etiology estimated nutritional needs aeb Signs/Symptoms: providing to meet 61% lower end kcal needs Intervention/Recommendation Comments 1. Recommend Novasource Renal at 50ml/hr x 20hrs, providing 2000kcal and 91g protein. Current order Glytrol at 60ml/ hr x 20hrs is only providing 1200kcal, pt recieves 2040kcal at [facility]. Expected Outcomes/Goals Expected Outcomes/Goals 1. Pt to meet at least 100% of estimated nutritional needs on tube feeding with tolerance .
[2017-05-27] MEDS: TPN 10%-70% CUSTOM IV SCH (17:50)
[2017-05-27] MEDS: Atorvastatin Calcium 10 MG TAB GT SCH (20:35)
[2017-05-28] MEDS: INSULIN ASPART SLIDING SCALE 100 UNITS/ML UNIT SUBQ SCH ×4 (00:16→18:11)
[2017-05-28] MEDS: Albuterol/Ipratropium Neb 3 ML AERS HHN SCH ×6 (02:34→22:57)
--- NOTE | 2017-05-28 04:44 | Progress Notes ---
DATE: 05/27/2017 PROBLEM LIST: 1. Acute respiratory failure. 2. Bilateral pneumonia/congestive heart failure. 3. Status post CPR. 4. Renal failure, on hemodialysis. SYMPTOMS: The patient is quite obtunded, barely opens eyes. No respiratory distress, etc. PHYSICAL EXAMINATION: VITAL SIGNS: The patient is afebrile. BP is 161/81. NECK: Veins not visualized. CHEST: Shows diminished air entry with lot of secretory noise. HEART: Irregular, distant. ABDOMEN: Soft, nontender. LABORATORY DATA: White count is 9.6, hemoglobin 9.0. The patient's ABG this morning shows some mild metabolic acidemia on 40% of oxygen. Electrolytes are okay with BUN 94 and creatinine 3.3. Chest x-ray still shows extensive bilateral infiltrate. ASSESSMENT: The patient is clinically stable, not much changed, extensive infiltrate. Final cultures are pending. Antibiotic per ID. PLANS AND SUGGESTIONS: We will try to decrease backup rate and see how he does and go from there. JOB# [id number]
[2017-05-28] MEDS: Fluconazole 100mg/50mL 100 MG/50 ML BOTTLE IV SCH (04:59)
[2017-05-28 05:02] LABS: % BASOPHILS 0.1 % (0.0-2.0); % LYMPHOCYTES 10.7 % (20.0-50.0); % MONOCYTES 7.8 % (2.0-10.0); % NEUTROPHILS 80.4 % (40.0-80.0); HEMATOCRIT 24.2 % (39.0-49.0); HEMOGLOBIN 8.2 gm/dL (12.6-17.4); MEAN CELL VOLUME 83.3 fl (80-99); MEAN CORPUSCULAR HEMOGLOBIN 28.4 pg (27.0-31.0); MEAN PLATELET VOLUME 8.3 fl; NEUTROPHILE ABSOLUTE 5.9 Th/cmm (1.8-8.0); PLATELET COUNT 206 Th/cmm (150-400); RED CELL DISTRIBUTION WIDTH 16.1 % (11.5-20.0)
[2017-05-28 05:21] LABS: ALB/GLOB RATIO 1.3 (1.0-1.8); ALKALINE PHOSPHATASE 174 U/L (34-104); ANION GAP 12.1 (7.0-16.0); BILIRUBIN,TOTAL 1.8 mg/dL (0.3-1.0); BUN - UREA NITROGEN 71 mg/dL (7-25); BUN/CREATININE RATIO 26.3; CARBON DIOXIDE 25.9 mEq/L (21.0-31.0); CHLORIDE 102 mEq/L (98-107); CREATININE - SERUM 2.7 mg/dL (0.7-1.3); GLUCOSE 212 mg/dL (70-105); SGOT 82 U/L (13-39); SGPT/ALT 8 U/L (7-52); SODIUM SERUM 136 mEq/L (136-145)
[2017-05-28 05:23] LABS: WHITE BLOOD COUNT 7.4 Th/cmm (4.8-10.8)
[2017-05-28] MEDS: Budesonide 0.5 Mg/2 mL Ud HHN SCH ×2 (07:08→19:15)
[2017-05-28] MEDS: Pantoprazole 40 mg/Packet GT SCH (08:21)
[2017-05-28] MEDS: Lactobacillus Rhamnosus 10 Billion CFU Capsule PO SCH (08:23)
[2017-05-28] MEDS: Metoclopramide 5 mg/mL 2mL Vial IVP SCH ×3 (08:24→20:54)
[2017-05-28] MEDS: Chlorhexidine Gluconate 0.12% 15mL Mouthwash MM SCH ×2 (08:31→20:30)
[2017-05-28] MEDS: Levetiracetam 500 mg/5mL 5mL UDC NG SCH ×2 (08:35→16:46)
[2017-05-28 08:56] LABS: pH 7.37 (7.35-7.45)
[2017-05-28 08:57] LABS: ABG SOURCE Arterial; ALLEN TEST YES; BE(B) 1.4 mEq/L (-3.0-3.0); FIO2 40; MECH RATE 12; MECH VT 500; PS 15
--- NOTE | 2017-05-28 09:54 | Diagnostic Imaging Report ---
Portable chest x-ray HISTORY: Shortness of breath Compared with the prior exam of May 27, 2017, slight increase in consolidation/infiltrate within the left lung along with an increase in the left pleural effusion. Evidence of persistent right pleural effusion. The heart is enlarged. An endotracheal tube tip is proximally 3.0 cm above the matias. IMPRESSION: 1. Somewhat increased consolidation within the left lung within increase in a left pleural effusion. 2. Persistent right pleural effusion with hazy infiltrate in the right lower lobe. 3. Persistent cardiomegaly
[2017-05-28] MEDS ORDERED: Albumin 25% 25gm/100mL 25 GM/100 ML BTL IV ONE ×2 (11:00)
[2017-05-28] MEDS ORDERED: Heparin Sodium 1,000 Units/mL Vial IVP ONE (13:04)
--- NOTE | 2017-05-28 13:34 | General Progress Note ---
Subjective - Review of Systems Service Date: 05/28/17 Subjective: sleeping, on vent, nonverbal Objective - Results Result Diagrams: 05/28/17 04:30 05/28/17 04:30 Recent Labs: Laboratory Last Values WBC 7.4 Th/cmm (4.8-10.8) D 05/28/17 04:30 RBC 2.90 Mil/cmm (3.80-5.80) L 05/28/17 04:30 Hgb 8.2 gm/dL (12.6-17.4) L 05/28/17 04:30 Hct 24.2 % (39.0-49.0) L 05/28/17 04:30 MCV 83.3 fl (80-99) 05/28/17 04:30 MCH 28.4 pg (27.0-31.0) 05/28/17 04:30 MCHC Differential 34.0 pg (28.0-36.0) 05/28/17 04:30 RDW 16.1 % (11.5-20.0) 05/28/17 04:30 Plt Count 206 Th/cmm (150-400) 05/28/17 04:30 MPV 8.3 fl 05/28/17 04:30 Neutrophils % 80.4 % (40.0-80.0) H 05/28/17 04:30 Band Neutrophils % 2 % (0-10) 05/26/17 04:40 Lymphocytes % 10.7 % (20.0-50.0) L 05/28/17 04:30 Monocytes % 7.8 % (2.0-10.0) 05/28/17 04:30 Eosinophils % 1.0 % (0.0-5.0) 05/28/17 04:30 Basophils % 0.1 % (0.0-2.0) 05/28/17 04:30 Neutrophils (Manual) 89 % (40-80) H 05/26/17 04:40 Lymphocytes 5 % (20-50) L 05/26/17 04:40 Monocytes 4 % (2-10) 05/26/17 04:40 Eosinophils 0 % (0-5) 05/24/17 04:49 Basophils 0 % (0-3) 05/24/17 04:49 Metamyelocytes 1 % (0-0) H 05/22/17 04:44 Toxic Granulation 1+ 05/23/17 04:48 Platelet Estimate ADEQUATE (NORMAL) 05/26/17 04:40 Platelet Morphology NORMAL (NORMAL) 05/26/17 04:40 Anisocytosis 1+ 05/22/17 04:44 RBC Morph Micro Appear NORMAL (NORMAL) 05/26/17 04:40 Eos Smear Source URINE 05/14/17 18:00 Eos Smear Total Cells FEW EOSINOPHILS SEEN (NONE SEEN) 05/14/17 18:00 PT 11.9 SECONDS (9.5-11.5) H 05/13/17 17:42 INR 1.13 (0.5-1.4) 05/13/17 17:42 PTT (Actin FS) 30.5 SECONDS (26.0-38.0) 05/15/17 12:30 Specimen Source Arterial 05/28/17 08:50 Sample Site Right Radial 05/28/17 08:50 pH 7.37 (7.35-7.45) 05/28/17 08:50 pCO2 47.0 mmHg (35.0-45.0) H 05/28/17 08:50 pO2 83.0 mmHg (80.0-100.0) 05/28/17 08:50 HCO3 26.0 mEq/L (20.0-26.0) 05/28/17 08:50 Base Excess 1.4 mEq/L (-3.0-3.0) 05/28/17 08:50 O2 Saturation 96.0 % (92.0-100.0) 05/28/17 08:50 Feliciano Test YES 05/28/17 08:50 Vent Rate 12 05/28/17 08:50 Inspired O2 40 05/28/17 08:50 Tidal Volume 500 05/28/17 08:50 PEEP 0 05/28/17 08:50 Pressure (ins/psv/peep) 15 05/28/17 08:50 Critical Value E.MCNEAL 05/28/17 08:50 Sodium 136 mEq/L (136-145) 05/28/17 04:30 Potassium 4.0 mEq/L (3.5-5.1) 05/28/17 04:30 Chloride 102 mEq/L (98-107) 05/28/17 04:30 Carbon Dioxide 25.9 mEq/L (21.0-31.0) 05/28/17 04:30 Anion Gap 12.1 (7.0-16.0) 05/28/17 04:30 BUN 71 mg/dL (7-25) H 05/28/17 04:30 Creatinine 2.7 mg/dL (0.7-1.3) H 05/28/17 04:30 Est GFR ( Amer) TNP 05/28/17 04:30 Est GFR (Non-Af Amer) TNP 05/28/17 04:30 BUN/Creatinine Ratio 26.3 05/28/17 04:30 Glucose 212 mg/dL (70-105) H 05/28/17 04:30 POC Glucose 197 MG/DL (70 - 105) H 05/28/17 11:47 Hemoglobin A1c % 6.1 % (4.0-6.0) H 05/15/17 06:30 Plasma/Ser Osmolality 301 mOsmol/kg (280-301) 05/14/17 18:20 Whole Bld Lactic Acid 1.58 mmol/L (0.60-1.99) 05/13/17 17:42 Uric Acid 7.7 mg/dL (4.4-7.6) H 05/15/17 06:30 Calcium 9.0 mg/dL (8.6-10.3) 05/28/17 04:30 Phosphorus 5.0 mg/dL (2.5-5.0) 05/28/17 04:30 Magnesium 2.0 mg/dL (1.9-2.7) 05/28/17 04:30 Total Bilirubin 1.8 mg/dL (0.3-1.0) H 05/28/17 04:30 Direct Bilirubin 0.09 mg/dL (0.0-0.2) 05/19/17 04:50 AST 82 U/L (13-39) H 05/28/17 04:30 ALT 8 U/L (7-52) 05/28/17 04:30 Alkaline Phosphatase 174 U/L (34-104) H 05/28/17 04:30 Ammonia 65 umol/L (16-53) H 05/19/17 04:50 Creatine Kinase 35 U/L (30-223) 05/16/17 23:06 Troponin I 0.02 ng/mL (0.01-0.05) 05/16/17 23:06 B-Natriuretic Peptide 739.0 pg/mL (5.0-100.0) H 05/23/17 04:48 Total Protein 5.9 gm/dL (6.0-8.3) L 05/28/17 04:30 Albumin 3.3 gm/dL (4.2-5.5) L 05/28/17 04:30 Globulin 2.6 gm/dL 05/28/17 04:30 Albumin/Globulin Ratio 1.3 (1.0-1.8) 05/28/17 04:30 Prealbumin 9 mg/dL (9-32) 05/24/17 04:49 Triglycerides 47 mg/dL (<150) 05/24/17 04:49 Cholesterol 55 mg/dL (<200) 05/24/17 04:49 TSH 2.74 uIU/ml (0.34-5.60) 05/15/17 06:30 Urine Source CATH 05/13/17 19:50 Urine Color YELLOW 05/13/17 19:50 Urine Clarity CLOUDY (CLEAR) 05/13/17 19:50 Urine pH 6.0 05/13/17 19:50 Ur Specific Lequire 1.015 (1.005-1.030) 05/13/17 19:50 Urine Protein 100 mg/dL (NEGATIVE) H 05/13/17 19:50 Urine Glucose (UA) NEGATIVE mg/dL (NEGATIVE) 05/13/17 19:50 Urine Ketones NEGATIVE mg/dL (NEGATIVE) 05/13/17 19:50 Urine Blood LARGE (NEGATIVE) H 05/13/17 19:50 Urine Nitrate NEGATIVE (NEGATIVE) 05/13/17 19:50 Urine Bilirubin NEGATIVE (NEGATIVE) 05/13/17 19:50 Urine Urobilinogen 0.2 E.U./dL (0.2 - 1.0) 05/13/17 19:50 Ur Leukocyte Esterase LARGE (NEGATIVE) H 05/13/17 19:50 Urine RBC 50-100 /hpf (0-5) H 05/13/17 19:50 Urine WBC >100 /hpf (0-5) H 05/13/17 19:50 Ur Epithelial Cells NONE SEEN /lpf (FEW) 05/13/17 19:50 Urine Bacteria NONE SEEN /hpf (NONE SEEN) 05/13/17 19:50 Ur Random Sodium 30 mmol/L 05/14/17 18:00 Urine Creatinine 36.4 mg/dl (Not Estab.) 05/14/17 18:00 Urine Microalbumin 363.5 ug/mL (Not Estab.) 05/14/17 18:00 Microalb/Creat Ratio 998.6 mg/g creat (0.0-30.0) H 05/14/17 18:00 Stool Occult Blood NEGATIVE (NEGATIVE) 05/25/17 17:49 Random Vancomycin 19.1 ug/mL (5.0-40.0) 05/19/17 04:50 Hepatitis A IgM Ab Negative (Negative) 05/21/17 04:46 Hep Bs Antigen Negative (Negative) 05/21/17 04:46 Hep B Core IgM Ab Negative (Negative) 05/21/17 04:46 Hepatitis C Antibody 0.1 s/co ratio (0.0-0.9) 05/21/17 04:46 Blood Type B POSITIVE 05/21/17 10:19 Antibody Screen NEGATIVE 05/21/17 10:19 Crossmatch See Detail 05/21/17 10:19 - Physical Exam Vitals and I&O: Vital Signs Temp 97.6 F 05/28/17 12:00 Pulse 72 05/28/17 13:17 Resp 17 05/28/17 12:00 BP 159/73 05/28/17 13:17 Pulse Ox 100 05/28/17 12:00 Intake & Output 05/27/17 05/28/17 05/28/17 18:59 06:59 18:59 Intake Total 680 730 Output Total 1150 325 Balance -470 405 Weight (lbs) 67.585 kg 88.451 kg Intake: Intake, IV Amount 100 100 Tigecycline 50 mg In 100 100 Sodium Chloride 0.9% 100 ml @ 100 mls/hr IV Q12H [facility] Rx#:[id number] Oral 0 Tube Feeding 480 TPN/PPN 480 Albumin 100 Other 150 Output: Urine 150 325 Hemodialysis 1000 Other: # Bowel Movements 2 Stool Characteristics Soft Liquid Brown Active Medications: Current Medications Acetaminophen (Tylenol) 650 mg PO Q4HR PRN PRN Reason: Pain Or Fever above 101 Stop: 07/14/17 15:15 Last Admin: 05/23/17 15:07 Dose: 650 mg Albuterol/Ipratropium (Duoneb Neb) 3 ml HHN Q4HRT [facility] Stop: 07/19/17 14:59 Last Admin: 05/28/17 11:21 Dose: 3 ml Atorvastatin Calcium (Lipitor) 10 mg GT HS EYSSICA PRN Reason: Protocol Stop: 07/14/17 20:59 Last Admin: 05/27/17 20:35 Dose: 10 mg Budesonide (Pulmicort) 1 mg HHN BIDRT [facility] Stop: 07/19/17 18:59 Last Admin: 05/28/17 07:08 Dose: 1 mg Carbidopa/Levodopa (Sinemet 25mg-100 Mg) 1 tab PO TID [facility] Stop: 07/14/17 08:59 Last Admin: 05/28/17 13:17 Dose: 1 tab Chlorhexidine Gluconate (Peridex) 15 ml MM 0800,1999 [facility] Stop: 07/23/17 19:59 Last Admin: 05/28/17 08:31 Dose: 15 ml Dextrose (D50w) 50 ml IVP PRN PRN; Protocol PRN Reason: HYPOGLYCEMIA Stop: 07/20/17 00:54 Last Admin: 05/22/17 23:34 Dose: 50 ml Diltiazem HCl (Cardizem) 10 mg IVP Q6HR PRN PRN Reason: HR >130 Stop: 07/22/17 17:09 Last Admin: 05/24/17 04:21 Dose: 10 mg Furosemide (Lasix) 40 mg IVP DAILY [facility] Stop: 07/18/17 08:59 Last Admin: 05/28/17 12:43 Dose: Not Given Heparin Sodium (Porcine) (Heparin) 5,000 units SUBQ Q8HR [facility] Stop: 07/22/17 20:59 Last Admin: 05/28/17 13:18 Dose: 5,000 units Heparin Sodium (Porcine) (Heparin) 3,000 units IVP ONCE ONE Stop: 05/28/17 13:05 Norepinephrine Bitartrate 8 mg (/ Dextrose) 258 mls @ 0 mls/hr IV TITR PRN; Protocol; Titrate PRN Reason: BP MAINTENANCE (PER PROTOCOL) Stop: 07/19/17 12:29 Last Admin: 05/21/17 01:06 Dose: 10 mcg/min, 19.35 mls/hr Phenylephrine HCl 10 mg/ (Sodium Chloride) 250 mls @ 0 mls/hr IV TITR YESSICA; Per Protocol PRN Reason: Protocol Stop: 07/19/17 12:59 Tigecycline 50 mg/ Sodium (Chloride) 100 mls @ 100 mls/hr IV Q12H [facility] Stop: 07/21/17 18:59 Last Admin: 05/28/17 06:14 Dose: 100 mls/hr Fluconazole (Diflucan) 100 mg in 50 mls @ 50 mls/hr IV Q24HR [facility] Stop: 07/21/17 04:59 Last Admin: 05/28/17 04:59 Dose: 50 mls/hr Multivitamins/Minerals 10 ml/Dextrose/ Amino Acids/Electrolytes/ Fat Emulsion Intravenous 960 mls @ 40 mls/hr IV .Q24H [facility] Stop: 07/26/17 15:59 Last Admin: 05/27/17 17:50 Dose: 40 mls/hr Insulin Aspart (Novolog Insulin Sliding Scale) 0 units SUBQ Q6HR YESSICA PRN Reason: Protocol Stop: 07/14/17 00:00 Last Admin: 05/28/17 13:21 Dose: Not Given Ipratropium [place] (Atrovent Neb 0.5mg/2.5ml) 0.5 mg HHN Q4HRT [facility] Stop: 07/17/17 14:59 Last Admin: 05/24/17 03:19 Dose: 0.5 mg Isosorbide Dinitrate (Isordil) 10 mg GT TID [facility] Stop: 07/14/17 08:59 Last Admin: 05/28/17 13:17 Dose: 10 mg Lactobacillus Rhamnosus (Culturelle) 1 each PO DAILY [facility] Stop: 07/17/17 08:59 Last Admin: 05/28/17 08:23 Dose: 1 each Levetiracetam (Keppra) 250 mg NG BID [facility] Stop: 07/14/17 08:59 Last Admin: 05/28/17 08:35 Dose: 250 mg Metoclopramide HCl (Reglan) 5 mg IVP TID [facility] Stop: 07/20/17 20:59 Last Admin: 05/28/17 13:18 Dose: 5 mg Metoprolol Tartrate (Lopressor) 50 mg GT Q8H [facility] Stop: 07/18/17 08:59 Last Admin: 05/28/17 08:36 Dose: 50 mg Miscellaneous (Vte Chemical Prophylaxis Screen/ Admission) 1 ea [facility] PRN PRN PRN Reason: PROTOCOL Stop: 07/14/17 09:25 Miscellaneous (Clinical Monitoring) 1 ea MC DAILY PRN PRN Reason: RENAL Stop: 07/15/17 12:32 Miscellaneous (Probiotic Screen) 1 ea MC PRN PRN PRN Reason: PROTOCOL Stop: 07/16/17 09:33 Miscellaneous (Tpn Per Pharmacy) 1 ea MC PRN PRN PRN Reason: PROTOCOL Stop: 07/24/17 15:59 Mupirocin (Bactroban Oint) 1 appl TP BID YESSICA Stop: 07/14/17 16:59 Last Admin: 05/28/17 08:25 Dose: 1 appl Pantoprazole Sodium (Protonix) 40 mg GT DAILY [facility] Stop: 07/14/17 08:59 Last Admin: 05/28/17 08:21 Dose: 40 mg General: No acute distress, no Alert HEENT: Mucous membr. moist/pink Neck: Supple, +2 carotid pulse wo bruit Cardiovascular: Regular rate, Normal S1, Normal S2, Other (afib with fluctuating heart rate) Lungs: Other (occasional rhonchi) Abdomen: Soft Extremities: no Edema Neurological: Sensation intact, Other (lethargic) Skin: no Rash Psych/Mental Status: Mood NL - Procedures Procedures: Procedures Procedure Code Date INSERT EMERGENCY AIRWAY 22444 05/13/17 INSERT TUNNELED CV CATH 55618 05/13/17 INSERTION OF ENDOTRACHEAL AIRWAY INTO TRACHEA, VIA OPENING [id number] 05/13/17 INSERTION OF INFUSION DEV INTO R FEMOR VEIN, PERC APPROACH [id number] 05/13/17 RESPIRATORY VENTILATION, GREATER THAN 96 CONSECUTIVE HOURS [id number] 05/13/17 VENT MGMT INPAT INIT DAY 23479 05/13/17 Assessment/Plan - Problem List Patient Problems: All Active Problems COUGH AND CONGESTION (Acute) - Assessment Assessment: NICK on CKD, now on dialysis A LOC secondary to metabolic encephalopathy/medications Dehydration Essential hypertension with CKD COPD Chronic atrial fibrillation Status post CVA Aspiration pneumonia/dysphagia status post PEG Type 2 diabetes mellitus with CKD Acute Decompensated CHF Acute Resp Failure on Vent Bradycardia - Plan Plan: Lab - Result Diagrams 05/15/17 06:30 05/15/17 06:30 Current Medications Acetaminophen (Tylenol) 650 mg PO Q4HR PRN PRN Reason: Pain Or Fever above 101 Stop: 07/14/17 15:15 Last Admin: 05/15/17 16:21 Dose: 650 mg Albuterol Sulfate (Albuterol 2.5mg/3ml Neb Ud) 2.5 mg HHN Q6HRT [facility] Stop: 07/14/17 00:59 Last Admin: 05/15/17 16:05 Dose: 2.5 mg Atorvastatin Calcium (Lipitor) 10 mg GT HS YESSICA PRN Reason: Protocol Stop: 07/14/17 20:59 Carbidopa/Levodopa (Sinemet 25mg-100 Mg) 1 tab PO TID [facility] Stop: 07/14/17 08:59 Last Admin: 05/15/17 14:02 Dose: 1 tab Heparin Sodium (Porcine) (Heparin) 5,000 units SUBQ Q8H [facility] Stop: 07/14/17 14:59 Last Admin: 05/15/17 16:24 Dose: 5,000 units Sodium Chloride (Nacl 0.9%) 1,000 mls @ 60 mls/hr IV .[id number] [facility] Stop: 07/13/17 06:40 Last Admin: 05/14/17 17:16 Dose: 60 mls/hr Azithromycin 250 mg/ Sodium (Chloride) 250 mls @ 250 mls/hr IV Q24HR [facility] Stop: 05/20/17 08:59 Piperacillin Sod/Tazobactam (Sod 3.375 gm/ Sodium Chloride) 50 mls @ 100 mls/ hr IV Q8HR [facility] Stop: 07/14/17 15:14 Last Admin: 05/15/17 15:57 Dose: 100 mls/hr Insulin Aspart (Novolog Insulin Sliding Scale) 0 units SUBQ Q6HR YESSICA PRN Reason: Protocol Stop: 07/14/17 00:00 Last Admin: 05/15/17 17:09 Dose: Not Given Insulin Detemir (Levemir Insulin) 14 units SUBQ DAILY [facility] PRN Reason: Protocol Stop: 07/15/17 08:59 Isosorbide Dinitrate (Isordil) 10 mg GT TID [facility] Stop: 07/14/17 08:59 Last Admin: 05/15/17 14:02 Dose: 10 mg Lactulose (Cephulac) 20 gm PO TID [facility] Stop: 07/14/17 08:59 Last Admin: 05/15/17 14:02 Dose: 20 gm Levetiracetam (Keppra) 250 mg NG BID YESSICA Stop: 07/14/17 08:59 Last Admin: 05/15/17 16:23 Dose: 250 mg Metoprolol Tartrate (Lopressor) 37.5 mg GT BID [facility] Stop: 07/14/17 00:14 Last Admin: 05/15/17 16:22 Dose: 37.5 mg Miscellaneous (Vte Chemical Prophylaxis Screen/ Admission) 1 ea [facility] PRN PRN PRN Reason: PROTOCOL Stop: 07/14/17 09:25 Morphine Sulfate (Morphine) 2 mg IVP Q3H PRN PRN Reason: PAIN Stop: 07/13/17 19:46 Last Admin: 05/14/17 21:16 Dose: 2 mg Mupirocin (Bactroban Oint) 1 appl TP BID YESSICA Stop: 07/14/17 16:59 Last Admin: 05/15/17 16:24 Dose: 1 appl Pantoprazole Sodium (Protonix) 40 mg GT DAILY YESSICA Stop: 07/14/17 08:59 Last Admin: 05/15/17 08:36 Dose: 40 mg Rifaximin (Xifaxan) 550 mg GT BID YESSICA Stop: 07/14/17 08:59 Last Admin: 05/15/17 16:23 Dose: 550 mg Kidney function improved with a BUN/Cr 71/2.7 Sodium 136 White count down to 7.2 on Zosyn Chest x-ray still w/ b/l infiltrates, effusions Reviewed his meds Follow-up electrolytes currently on PPN @ 40 ml /hr prognosis poor Hgb/Hct down to 8.2/24.2 scheduled for HD today Follow-up electrolytes, CBC and chest x-ray in a.m. urine ouput minimal Lab - Result Diagrams 05/24/17 04:49 05/24/17 04:49 addendum: Poor response to diuretics, w/ worsening CHF, BNP level developed resp failure, required intubation worsening cardio-renal syndrome discussed w/ grandson Pedro, about poor prognosis but still want to proceed w/ dialysis Nutritional Asmnt/Malnutr-PDOC - Dietary Evaluation Malnutrition Findings (Please click <Entered> for more info): Nutritional Asmnt/Malnutrition Start: 05/15/17 13: 56 Text: Status: Complete Freq: Document 05/15/17 13:56 GSUN (Rec: 05/15/17 14:18 GSUN [id number]) Nutritional Asmnt/Malnutrition Patient General Information Nutritional Screening High Risk Screening Diagnosis PNA, NICK, icnreasing renal failure, CVA, CHF, DM Pertinent Medical Hx/Surgical Hx CVA, dementia, afib, CAD, HTN, dyslipidemia, epilepsy, GERD, aspiration PNA, DM, CKD, dehydration, C. diff, anemia D Subjective Information 86 year old male from SNF. Pt greeted RD. Pt is overall thin , moderate to severe wasting to chest, clavicles, extremities. Observed Glytrol running at 60ml/hr x20hrs during visit. Unable to obtain CBW due to bedscale not calibrated. Discussed with YVETTE Farooq regarding tube feeding recommendations. Current Diet Order/ Nutrition Support Glytrol at 60ml/hr x 20hrs, providing 1200kcal 54g protein Pertinent Medications Lipitor, Novolog, Levemir, Cephulac, Morphine, Protonix, Nacl 0.9% Pertinent Labs 05/13: potassium 5.3H, BUN 80H, creatinine 2.4H, glucose 103 05/15: potassium WNL, BUN 70H, creatinine 2.4H, glucose 239H, A1c 6.1H, phosphorus 5.4H Nutritional Hx/Data Height 1.68 m Height (Calculated Centimeters) 167.6 Current Weight (lbs) 65.771 kg Weight (Calculated Kilograms) 65.8 Weight (Calculated Grams) 25295.9 [place] Body Weight 142 Weight Status Approriate GI Symptoms Difficult in: Swallowing Cultural/Ethnic/[employer] Belief [place] [facility]: Glucerna 1.2 at 85ml/hr x 20hrs, providing 2040kcal, promote weight gain. Skin Integrity/Comment: Gee 12. Skin intact. Estimated Nutritional Goals Calories/Kcals/Kg CBW 145lb/65.9kg Kcals Calculated 1976-7kcal (30-35kcal/kg) Protein Calculated 46-92g (0.7-1.4g/kg, renal vs moderate to severe wasting) Fluid: ml Per MD (renal) Nutritional Problem 2. Problem Problem Impaired nutrient utilization related to Etiology NICK, hx CKD aeb Signs/Symptoms: "increasing renal failure," potaasum 5.3H on adm, BUN 70H, cassandra architect 2.4H, phosphorus 5.4H 1. Problem Problem Inadequate intake from enteral nutrition infusion related to Etiology estimated nutritional needs aeb Signs/Symptoms: providing to meet 61% lower end kcal needs Intervention/Recommendation Comments 1. Recommend Novasource Renal at 50ml/hr x 20hrs, providing 2000kcal and 91g protein. Current order Glytrol at 60ml/ hr x 20hrs is only providing 1200kcal, pt recieves 2040kcal at [facility]. Expected Outcomes/Goals Expected Outcomes/Goals 1. Pt to meet at least 100% of estimated nutritional needs on tube feeding with tolerance .
[2017-05-28] MEDS: TPN 10%-70% CUSTOM IV SCH (17:01)
--- NOTE | 2017-05-28 19:00 | General Progress Note ---
Subjective - Review of Systems Service Date: 05/28/17 Subjective: Patient seen and examined daughter was at the bedside patient was awake but doesn't follow command Objective - Results Result Diagrams: 05/28/17 04:30 05/28/17 04:30 Recent Labs: Laboratory Last Values WBC 7.4 Th/cmm (4.8-10.8) D 05/28/17 04:30 RBC 2.90 Mil/cmm (3.80-5.80) L 05/28/17 04:30 Hgb 8.2 gm/dL (12.6-17.4) L 05/28/17 04:30 Hct 24.2 % (39.0-49.0) L 05/28/17 04:30 MCV 83.3 fl (80-99) 05/28/17 04:30 MCH 28.4 pg (27.0-31.0) 05/28/17 04:30 MCHC Differential 34.0 pg (28.0-36.0) 05/28/17 04:30 RDW 16.1 % (11.5-20.0) 05/28/17 04:30 Plt Count 206 Th/cmm (150-400) 05/28/17 04:30 MPV 8.3 fl 05/28/17 04:30 Neutrophils % 80.4 % (40.0-80.0) H 05/28/17 04:30 Band Neutrophils % 2 % (0-10) 05/26/17 04:40 Lymphocytes % 10.7 % (20.0-50.0) L 05/28/17 04:30 Monocytes % 7.8 % (2.0-10.0) 05/28/17 04:30 Eosinophils % 1.0 % (0.0-5.0) 05/28/17 04:30 Basophils % 0.1 % (0.0-2.0) 05/28/17 04:30 Neutrophils (Manual) 89 % (40-80) H 05/26/17 04:40 Lymphocytes 5 % (20-50) L 05/26/17 04:40 Monocytes 4 % (2-10) 05/26/17 04:40 Eosinophils 0 % (0-5) 05/24/17 04:49 Basophils 0 % (0-3) 05/24/17 04:49 Metamyelocytes 1 % (0-0) H 05/22/17 04:44 Toxic Granulation 1+ 05/23/17 04:48 Platelet Estimate ADEQUATE (NORMAL) 05/26/17 04:40 Platelet Morphology NORMAL (NORMAL) 05/26/17 04:40 Anisocytosis 1+ 05/22/17 04:44 RBC Morph Micro Appear NORMAL (NORMAL) 05/26/17 04:40 Eos Smear Source URINE 05/14/17 18:00 Eos Smear Total Cells FEW EOSINOPHILS SEEN (NONE SEEN) 05/14/17 18:00 PT 11.9 SECONDS (9.5-11.5) H 05/13/17 17:42 INR 1.13 (0.5-1.4) 05/13/17 17:42 PTT (Actin FS) 30.5 SECONDS (26.0-38.0) 05/15/17 12:30 Specimen Source Arterial 05/28/17 08:50 Sample Site Right Radial 05/28/17 08:50 pH 7.37 (7.35-7.45) 05/28/17 08:50 pCO2 47.0 mmHg (35.0-45.0) H 05/28/17 08:50 pO2 83.0 mmHg (80.0-100.0) 05/28/17 08:50 HCO3 26.0 mEq/L (20.0-26.0) 05/28/17 08:50 Base Excess 1.4 mEq/L (-3.0-3.0) 05/28/17 08:50 O2 Saturation 96.0 % (92.0-100.0) 05/28/17 08:50 Feliciano Test YES 05/28/17 08:50 Vent Rate 12 05/28/17 08:50 Inspired O2 40 05/28/17 08:50 Tidal Volume 500 05/28/17 08:50 PEEP 0 05/28/17 08:50 Pressure (ins/psv/peep) 15 05/28/17 08:50 Critical Value E.MCNEAL 05/28/17 08:50 Sodium 136 mEq/L (136-145) 05/28/17 04:30 Potassium 4.0 mEq/L (3.5-5.1) 05/28/17 04:30 Chloride 102 mEq/L (98-107) 05/28/17 04:30 Carbon Dioxide 25.9 mEq/L (21.0-31.0) 05/28/17 04:30 Anion Gap 12.1 (7.0-16.0) 05/28/17 04:30 BUN 71 mg/dL (7-25) H 05/28/17 04:30 Creatinine 2.7 mg/dL (0.7-1.3) H 05/28/17 04:30 Est GFR ( Amer) TNP 05/28/17 04:30 Est GFR (Non-Af Amer) TNP 05/28/17 04:30 BUN/Creatinine Ratio 26.3 05/28/17 04:30 Glucose 212 mg/dL (70-105) H 05/28/17 04:30 POC Glucose 196 MG/DL (70 - 105) H 05/28/17 18:05 Hemoglobin A1c % 6.1 % (4.0-6.0) H 05/15/17 06:30 Plasma/Ser Osmolality 301 mOsmol/kg (280-301) 05/14/17 18:20 Whole Bld Lactic Acid 1.58 mmol/L (0.60-1.99) 05/13/17 17:42 Uric Acid 7.7 mg/dL (4.4-7.6) H 05/15/17 06:30 Calcium 9.0 mg/dL (8.6-10.3) 05/28/17 04:30 Phosphorus 5.0 mg/dL (2.5-5.0) 05/28/17 04:30 Magnesium 2.0 mg/dL (1.9-2.7) 05/28/17 04:30 Total Bilirubin 1.8 mg/dL (0.3-1.0) H 05/28/17 04:30 Direct Bilirubin 0.09 mg/dL (0.0-0.2) 05/19/17 04:50 AST 82 U/L (13-39) H 05/28/17 04:30 ALT 8 U/L (7-52) 05/28/17 04:30 Alkaline Phosphatase 174 U/L (34-104) H 05/28/17 04:30 Ammonia 65 umol/L (16-53) H 05/19/17 04:50 Creatine Kinase 35 U/L (30-223) 05/16/17 23:06 Troponin I 0.02 ng/mL (0.01-0.05) 05/16/17 23:06 B-Natriuretic Peptide 739.0 pg/mL (5.0-100.0) H 05/23/17 04:48 Total Protein 5.9 gm/dL (6.0-8.3) L 05/28/17 04:30 Albumin 3.3 gm/dL (4.2-5.5) L 05/28/17 04:30 Globulin 2.6 gm/dL 05/28/17 04:30 Albumin/Globulin Ratio 1.3 (1.0-1.8) 05/28/17 04:30 Prealbumin 9 mg/dL (9-32) 05/24/17 04:49 Triglycerides 47 mg/dL (<150) 05/24/17 04:49 Cholesterol 55 mg/dL (<200) 05/24/17 04:49 TSH 2.74 uIU/ml (0.34-5.60) 05/15/17 06:30 Urine Source CATH 05/13/17 19:50 Urine Color YELLOW 05/13/17 19:50 Urine Clarity CLOUDY (CLEAR) 05/13/17 19:50 Urine pH 6.0 05/13/17 19:50 Ur Specific [place] 1.015 (1.005-1.030) 05/13/17 19:50 Urine Protein 100 mg/dL (NEGATIVE) H 05/13/17 19:50 Urine Glucose (UA) NEGATIVE mg/dL (NEGATIVE) 05/13/17 19:50 Urine Ketones NEGATIVE mg/dL (NEGATIVE) 05/13/17 19:50 Urine Blood LARGE (NEGATIVE) H 05/13/17 19:50 Urine Nitrate NEGATIVE (NEGATIVE) 05/13/17 19:50 Urine Bilirubin NEGATIVE (NEGATIVE) 05/13/17 19:50 Urine Urobilinogen 0.2 E.U./dL (0.2 - 1.0) 05/13/17 19:50 Ur Leukocyte Esterase LARGE (NEGATIVE) H 05/13/17 19:50 Urine RBC 50-100 /hpf (0-5) H 05/13/17 19:50 Urine WBC >100 /hpf (0-5) H 05/13/17 19:50 Ur Epithelial Cells NONE SEEN /lpf (FEW) 05/13/17 19:50 Urine Bacteria NONE SEEN /hpf (NONE SEEN) 05/13/17 19:50 Ur Random Sodium 30 mmol/L 05/14/17 18:00 Urine Creatinine 36.4 mg/dl (Not Estab.) 05/14/17 18:00 Urine Microalbumin 363.5 ug/mL (Not Estab.) 05/14/17 18:00 Microalb/Creat Ratio 998.6 mg/g creat (0.0-30.0) H 05/14/17 18:00 Stool Occult Blood NEGATIVE (NEGATIVE) 05/25/17 17:49 Random Vancomycin 19.1 ug/mL (5.0-40.0) 05/19/17 04:50 Hepatitis A IgM Ab Negative (Negative) 05/21/17 04:46 Hep Bs Antigen Negative (Negative) 05/21/17 04:46 Hep B Core IgM Ab Negative (Negative) 05/21/17 04:46 Hepatitis C Antibody 0.1 s/co ratio (0.0-0.9) 05/21/17 04:46 Blood Type B POSITIVE 05/21/17 10:19 Antibody Screen NEGATIVE 05/21/17 10:19 Crossmatch See Detail 05/21/17 10:19 - Physical Exam Vitals and I&O: Vital Signs Temp 98.1 F 05/28/17 16:00 Pulse 68 05/28/17 18:00 Resp 12 05/28/17 18:00 BP 169/73 05/28/17 18:00 Pulse Ox 100 05/28/17 18:00 Intake & Output 05/27/17 05/28/17 05/28/17 18:59 06:59 18:59 Intake Total 932 878 9607.333 Output Total 5265 921 0065 Balance -470 405 -1092.667 Weight (lbs) 67.585 kg 88.451 kg 88.451 kg Intake: Intake, IV Amount 661 073 2192.333 Multivitamin Inj 10 ml In 927.333 Dextrose 70% 250 ml In Amino Acids 10% 500 ml In Intralipids 20% 200 ml @ 40 mls/hr IV .Q24H YESSICA Rx#:[id number] Tigecycline 50 mg In 100 100 100 Sodium Chloride 0.9% 100 ml @ 100 mls/hr IV Q12H YESSICA Rx#:[id number] Oral 0 Tube Feeding 480 200 TPN/PPN 480 480 Albumin 100 Other 150 Output: Urine 150 325 300 Hemodialysis 1000 2500 Other: # Bowel Movements 2 1 Stool Characteristics Soft Liquid Brown Active Medications: Current Medications Acetaminophen (Tylenol) 650 mg PO Q4HR PRN PRN Reason: Pain Or Fever above 101 Stop: 07/14/17 15:15 Last Admin: 05/23/17 15:07 Dose: 650 mg Albuterol/Ipratropium (Duoneb Neb) 3 ml HHN Q4HRT [facility] Stop: 07/19/17 14:59 Last Admin: 05/28/17 15:05 Dose: 3 ml Atorvastatin Calcium (Lipitor) 10 mg GT HS YESSICA PRN Reason: Protocol Stop: 07/14/17 20:59 Last Admin: 05/27/17 20:35 Dose: 10 mg Budesonide (Pulmicort) 1 mg HHN BIDRT [facility] Stop: 07/19/17 18:59 Last Admin: 05/28/17 07:08 Dose: 1 mg Carbidopa/Levodopa (Sinemet 25mg-100 Mg) 1 tab PO TID [facility] Stop: 07/14/17 08:59 Last Admin: 05/28/17 13:17 Dose: 1 tab Chlorhexidine Gluconate (Peridex) 15 ml MM 0800,2000 [facility] Stop: 07/23/17 19:59 Last Admin: 05/28/17 08:31 Dose: 15 ml Dextrose (D50w) 50 ml IVP PRN PRN; Protocol PRN Reason: HYPOGLYCEMIA Stop: 07/20/17 00:54 Last Admin: 05/22/17 23:34 Dose: 50 ml Diltiazem HCl (Cardizem) 10 mg IVP Q6HR PRN PRN Reason: HR >130 Stop: 07/22/17 17:09 Last Admin: 05/24/17 04:21 Dose: 10 mg Furosemide (Lasix) 40 mg IVP DAILY [facility] Stop: 07/18/17 08:59 Last Admin: 05/28/17 12:43 Dose: Not Given Heparin Sodium (Porcine) (Heparin) 5,000 units SUBQ Q8HR YESSICA Stop: 07/22/17 20:59 Last Admin: 05/28/17 13:18 Dose: 5,000 units Norepinephrine Bitartrate 8 mg (/ Dextrose) 258 mls @ 0 mls/hr IV TITR PRN; Protocol; Titrate PRN Reason: BP MAINTENANCE (PER PROTOCOL) Stop: 07/19/17 12:29 Last Admin: 05/21/17 01:06 Dose: 10 mcg/min, 19.35 mls/hr Phenylephrine HCl 10 mg/ (Sodium Chloride) 250 mls @ 0 mls/hr IV TITR YESSICA; Per Protocol PRN Reason: Protocol Stop: 07/19/17 12:59 Tigecycline 50 mg/ Sodium (Chloride) 100 mls @ 100 mls/hr IV Q12H [facility] Stop: 07/21/17 18:59 Last Admin: 05/28/17 18:09 Dose: 100 mls/hr Fluconazole (Diflucan) 100 mg in 50 mls @ 50 mls/hr IV Q24HR [facility] Stop: 07/21/17 04:59 Last Admin: 05/28/17 04:59 Dose: 50 mls/hr Multivitamins/Minerals 10 ml/Dextrose/ Amino Acids/Electrolytes/ Fat Emulsion Intravenous 960 mls @ 40 mls/hr IV .Q24H [facility] Stop: 07/26/17 15:59 Last Admin: 05/28/17 17:01 Dose: 40 mls/hr Insulin Aspart (Novolog Insulin Sliding Scale) 0 units SUBQ Q6HR YESSICA PRN Reason: Protocol Stop: 07/14/17 00:00 Last Admin: 05/28/17 18:11 Dose: Not Given Ipratropium [place] (Atrovent Neb 0.5mg/2.5ml) 0.5 mg HHN Q4HRT [facility] Stop: 07/17/17 14:59 Last Admin: 05/24/17 03:19 Dose: 0.5 mg Isosorbide Dinitrate (Isordil) 10 mg GT TID [facility] Stop: 07/14/17 08:59 Last Admin: 05/28/17 13:17 Dose: 10 mg Lactobacillus Rhamnosus (Culturelle) 1 each PO DAILY [facility] Stop: 07/17/17 08:59 Last Admin: 05/28/17 08:23 Dose: 1 each Levetiracetam (Keppra) 250 mg NG BID [facility] Stop: 07/14/17 08:59 Last Admin: 05/28/17 16:46 Dose: 250 mg Metoclopramide HCl (Reglan) 5 mg IVP TID YESSICA Stop: 07/20/17 20:59 Last Admin: 05/28/17 13:18 Dose: 5 mg Metoprolol Tartrate (Lopressor) 50 mg GT Q8H YESSICA Stop: 07/18/17 08:59 Last Admin: 05/28/17 16:41 Dose: 50 mg Miscellaneous (Vte Chemical Prophylaxis Screen/ Admission) 1 ea [facility] PRN PRN PRN Reason: PROTOCOL Stop: 07/14/17 09:25 Miscellaneous (Clinical Monitoring) 1 ea MC DAILY PRN PRN Reason: RENAL Stop: 07/15/17 12:32 Miscellaneous (Probiotic Screen) 1 ea MC PRN PRN PRN Reason: PROTOCOL Stop: 07/16/17 09:33 Miscellaneous (Tpn Per Pharmacy) 1 ea MC PRN PRN PRN Reason: PROTOCOL Stop: 07/24/17 15:59 Mupirocin (Bactroban Oint) 1 appl TP BID YESSICA Stop: 07/14/17 16:59 Last Admin: 05/28/17 16:59 Dose: 1 appl Pantoprazole Sodium (Protonix) 40 mg GT DAILY YESSICA Stop: 07/14/17 08:59 Last Admin: 05/28/17 08:21 Dose: 40 mg General: No acute distress, no Alert HEENT: Mucous membr. moist/pink Cardiovascular: Other (afib with fluctuating heart rate) Lungs: Other (occasional rhonchi) Abdomen: Soft Extremities: no Edema Neurological: Other (lethargic) Skin: no Rash Psych/Mental Status: Mood NL - Procedures Procedures: Procedures Procedure Code Date INSERT EMERGENCY AIRWAY 72284 05/13/17 INSERT TUNNELED CV CATH [id number] 05/13/17 INSERTION OF ENDOTRACHEAL AIRWAY INTO TRACHEA, VIA OPENING [id number] 05/13/17 INSERTION OF INFUSION DEV INTO R FEMOR VEIN, PERC APPROACH [id number] 05/13/17 RESPIRATORY VENTILATION, GREATER THAN 96 CONSECUTIVE HOURS [id number] 05/13/17 VENT MGMT INPAT IN DAY 08132 05/13/17 Assessment/Plan - Problem List Patient Problems: All Active Problems COUGH AND CONGESTION (Acute) - Assessment Assessment: Current Active Problems Problem Status Onset COUGH AND CONGESTION Acute Altered mental status negative CT Brain Acute respiratory failure vent dependant ( failed weaning trial) Renal failure improving on HD MDRO Pneumonia Afib RVR UTI CAD 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 HTN renal disease Seizure disorder - Plan Plan: CT Head w/o contrast negative Heparin sub Q Cardizem iv prn Metoprolol Tygacil per ID rec HD per nephrology rec Continue vent support PPN started for nutritional support Off vasopressor Feeding on hold due to tolerance issue Daughter was updated on pt's condition and plan of care LTAC eval Nutritional Asmnt/Malnutr-PDOC - Dietary Evaluation Malnutrition Findings (Please click <Entered> for more info): Nutritional Asmnt/Malnutrition Start: 05/15/17 13: 56 Text: Status: Complete Freq: Document 05/15/17 13:56 GSUN (Rec: 05/15/17 14:18 GSUN [id number]) Nutritional Asmnt/Malnutrition Patient General Information Nutritional Screening High Risk Screening Diagnosis PNA, NICK, icnreasing renal failure, CVA, CHF, DM Pertinent Medical Hx/Surgical Hx CVA, dementia, afib, CAD, HTN, dyslipidemia, epilepsy, GERD, aspiration PNA, DM, CKD, dehydration, C. diff, anemia D Subjective Information 86 year old male from SNF. Pt greeted RD. Pt is overall thin , moderate to severe wasting to chest, clavicles, extremities. Observed Glytrol running at 60ml/hr x20hrs during visit. Unable to obtain CBW due to bedscale not calibrated. Discussed with YVETTE Farooq regarding tube feeding recommendations. Current Diet Order/ Nutrition Support Glytrol at 60ml/hr x 20hrs, providing 1200kcal 54g protein Pertinent Medications Lipitor, Novolog, Levemir, Cephulac, Morphine, Protonix, Nacl 0.9% Pertinent Labs 05/13: potassium 5.3H, BUN 80H, creatinine 2.4H, glucose 103 05/15: potassium WNL, BUN 70H, creatinine 2.4H, glucose 239H, A1c 6.1H, phosphorus 5.4H Nutritional Hx/Data Height 1.68 m Height (Calculated Centimeters) 167.6 Current Weight (lbs) 65.771 kg Weight (Calculated Kilograms) 65.8 Weight (Calculated Grams) 08889.9 Carbon Body Weight 142 Weight Status Approriate GI Symptoms Difficult in: Swallowing Cultural/Ethnic/Congregation Belief [place] SNF: Glucerna 1.2 at 85ml/hr x 20hrs, providing 2040kcal, promote weight gain. Skin Integrity/Comment: Gee 12. Skin intact. Estimated Nutritional Goals Calories/Kcals/Kg CBW 145lb/65.9kg Kcals Calculated 1976-2307kcal (30-35kcal/kg) Protein Calculated 46-92g (0.7-1.4g/kg, renal vs moderate to severe wasting) Fluid: ml Per MD (renal) Nutritional Problem 2. Problem Problem Impaired nutrient utilization related to Etiology NICK, hx CKD aeb Signs/Symptoms: "increasing renal failure," potaasum 5.3H on adm, BUN 70H, personal financial advisor 2.4H, phosphorus 5.4H 1. Problem Problem Inadequate intake from enteral nutrition infusion related to Etiology estimated nutritional needs aeb Signs/Symptoms: providing to meet 61% lower end kcal needs Intervention/Recommendation Comments 1. Recommend Novasource Renal at 50ml/hr x 20hrs, providing 2000kcal and 91g protein. Current order Glytrol at 60ml/ hr x 20hrs is only providing 1200kcal, pt recieves 2040kcal at [facility]. Expected Outcomes/Goals Expected Outcomes/Goals 1. Pt to meet at least 100% of estimated nutritional needs on tube feeding with tolerance .
[2017-05-28] MEDS: Atorvastatin Calcium 10 MG TAB GT SCH (20:45)
--- NOTE | 2017-05-28 22:16 | Progress Notes ---
DATE: 05/28/2017 PROBLEM LIST: 1. Status post cardiopulmonary arrest. 2. On mechanical ventilation. 3. Bilateral infiltrate plus congestive heart failure cardiac arrhythmia. 4. 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 PHYSICAL EXAMINATION: GENERAL: Currently is quite obtunded on the ventilator, undergoing dialysis, no respiratory distress. On SIMV of 10. VITAL SIGNS: Temperature is 97.6, BP is 165/81, saturation 100% on 40% oxygen. NECK: Veins not visualized. CHEST: Shows diminished air entry with occasional rhonchi. HEART: Regular. ABDOMEN: Soft, nontender. LABORATORY DATA: The patient's white count is 7.4, hemoglobin 8.2. ABG shows compensated respiratory acidemia with pO2 of 83 on SIMV of 10 with 40% of oxygen. ASSESSMENT: The patient clinically is status quo. PLANS AND SUGGESTIONS: We will go ahead and check x-ray, if it is okay we will start slowly tapering or weaning, if not, may have to consider tracheostomy in view of altered state of mind. JOB# [id number]
[2017-05-29] MEDS: INSULIN ASPART SLIDING SCALE 100 UNITS/ML UNIT SUBQ SCH ×5 (00:31→23:53)
[2017-05-29] MEDS: Albuterol/Ipratropium Neb 3 ML AERS HHN SCH ×6 (02:47→22:33)
[2017-05-29] MEDS: Fluconazole 100mg/50mL 100 MG/50 ML BOTTLE IV SCH (04:59)
[2017-05-29 05:37] LABS: % BASOPHILS 0.2 % (0.0-2.0); % LYMPHOCYTES 9.8 % (20.0-50.0); % MONOCYTES 7.7 % (2.0-10.0); % NEUTROPHILS 81.3 % (40.0-80.0); HEMATOCRIT 24.7 % (39.0-49.0); HEMOGLOBIN 8.3 gm/dL (12.6-17.4); MEAN CELL VOLUME 84.8 fl (80-99); MEAN CORPUSCULAR HEMOGLOBIN 28.5 pg (27.0-31.0); MEAN CORPUSCULAR HGB CONC 33.6 pg (28.0-36.0); MEAN PLATELET VOLUME 8.4 fl; NEUTROPHILE ABSOLUTE 7.6 Th/cmm (1.8-8.0); PLATELET COUNT 218 Th/cmm (150-400); RED BLOOD COUNT 2.91 Mil/cmm (3.80-5.80); RED CELL DISTRIBUTION WIDTH 16.3 % (11.5-20.0)
[2017-05-29 06:11] LABS: ALB/GLOB RATIO 1.2 (1.0-1.8); ALKALINE PHOSPHATASE 238 U/L (34-104); ANION GAP 11.1 (7.0-16.0); BILIRUBIN,TOTAL 1.8 mg/dL (0.3-1.0); BUN - UREA NITROGEN 59 mg/dL (7-25); BUN/CREATININE RATIO 24.6; CARBON DIOXIDE 28.5 mEq/L (21.0-31.0); CHLORIDE 104 mEq/L (98-107); CREATININE - SERUM 2.4 mg/dL (0.7-1.3); GLUCOSE 138 mg/dL (70-105); MAGNESIUM 1.9 mg/dL (1.9-2.7); PHOSPHOROUS 4.3 mg/dL (2.5-5.0); POTASSIUM SERUM 3.6 mEq/L (3.5-5.1); SGOT 94 U/L (13-39); SGPT/ALT 10 U/L (7-52); SODIUM SERUM 140 mEq/L (136-145)
[2017-05-29 06:13] LABS: WHITE BLOOD COUNT 9.3 Th/cmm (4.8-10.8)
[2017-05-29] MEDS: Budesonide 0.5 Mg/2 mL Ud HHN SCH ×2 (07:53→19:09)
[2017-05-29] MEDS: Lactobacillus Rhamnosus 10 Billion CFU Capsule PO SCH (08:10)
[2017-05-29] MEDS: Metoclopramide 5 mg/mL 2mL Vial IVP SCH ×3 (08:10→21:06)
[2017-05-29] MEDS: Pantoprazole 40 mg/Packet GT SCH (08:10)
[2017-05-29] MEDS: Chlorhexidine Gluconate 0.12% 15mL Mouthwash MM SCH ×2 (08:11→20:07)
[2017-05-29] MEDS: Levetiracetam 500 mg/5mL 5mL UDC NG SCH ×2 (08:38→17:15)
--- NOTE | 2017-05-29 09:31 | Diagnostic Imaging Report ---
Portable chest x-ray HISTORY: Shortness of breath Compared to prior exam of May 28, 2017, there remains diffuse bilateral pulmonary infiltrates. Evidence of the left pleural effusion and a small right pleural effusion. Endotracheal tube tip is approximately 1.0 cm above the matias. IMPRESSION: 1. Allowing for differences in radiographic technique, little change in the cardiopulmonary status with cardiomegaly and bilateral infiltrates and pleural effusions. Changes may be related to congestive heart failure and pulmonary edema. Underlying pneumonia cannot be excluded. Clinical correlation is needed.
--- NOTE | 2017-05-29 11:51 | General Progress Note ---
Subjective - Review of Systems Service Date: 05/29/17 Subjective: sleeping but arousable , on vent, nonverbal Objective - Results Result Diagrams: 05/29/17 05:05 05/29/17 05:05 Recent Labs: Laboratory Last Values WBC 9.3 Th/cmm (4.8-10.8) D 05/29/17 05:05 RBC 2.91 Mil/cmm (3.80-5.80) L 05/29/17 05:05 Hgb 8.3 gm/dL (12.6-17.4) L 05/29/17 05:05 Hct 24.7 % (39.0-49.0) L 05/29/17 05:05 MCV 84.8 fl (80-99) 05/29/17 05:05 MCH 28.5 pg (27.0-31.0) 05/29/17 05:05 MCHC Differential 33.6 pg (28.0-36.0) 05/29/17 05:05 RDW 16.3 % (11.5-20.0) 05/29/17 05:05 Plt Count 218 Th/cmm (150-400) 05/29/17 05:05 MPV 8.4 fl 05/29/17 05:05 Neutrophils % 81.3 % (40.0-80.0) H 05/29/17 05:05 Band Neutrophils % 2 % (0-10) 05/26/17 04:40 Lymphocytes % 9.8 % (20.0-50.0) L 05/29/17 05:05 Monocytes % 7.7 % (2.0-10.0) 05/29/17 05:05 Eosinophils % 1.0 % (0.0-5.0) 05/29/17 05:05 Basophils % 0.2 % (0.0-2.0) 05/29/17 05:05 Neutrophils (Manual) 89 % (40-80) H 05/26/17 04:40 Lymphocytes 5 % (20-50) L 05/26/17 04:40 Monocytes 4 % (2-10) 05/26/17 04:40 Eosinophils 0 % (0-5) 05/24/17 04:49 Basophils 0 % (0-3) 05/24/17 04:49 Metamyelocytes 1 % (0-0) H 05/22/17 04:44 Toxic Granulation 1+ 05/23/17 04:48 Platelet Estimate ADEQUATE (NORMAL) 05/26/17 04:40 Platelet Morphology NORMAL (NORMAL) 05/26/17 04:40 Anisocytosis 1+ 05/22/17 04:44 RBC Morph Micro Appear NORMAL (NORMAL) 05/26/17 04:40 Eos Smear Source URINE 05/14/17 18:00 Eos Smear Total Cells FEW EOSINOPHILS SEEN (NONE SEEN) 05/14/17 18:00 PT 11.9 SECONDS (9.5-11.5) H 05/13/17 17:42 INR 1.13 (0.5-1.4) 05/13/17 17:42 PTT (Actin FS) 30.5 SECONDS (26.0-38.0) 05/15/17 12:30 Specimen Source Arterial 05/28/17 08:50 Sample Site Right Radial 05/28/17 08:50 pH 7.37 (7.35-7.45) 05/28/17 08:50 pCO2 47.0 mmHg (35.0-45.0) H 05/28/17 08:50 pO2 83.0 mmHg (80.0-100.0) 05/28/17 08:50 HCO3 26.0 mEq/L (20.0-26.0) 05/28/17 08:50 Base Excess 1.4 mEq/L (-3.0-3.0) 05/28/17 08:50 O2 Saturation 96.0 % (92.0-100.0) 05/28/17 08:50 Feliciano Test YES 05/28/17 08:50 Vent Rate 12 05/28/17 08:50 Inspired O2 40 05/28/17 08:50 Tidal Volume 500 05/28/17 08:50 PEEP 0 05/28/17 08:50 Pressure (ins/psv/peep) 15 05/28/17 08:50 Critical Value E.MCNEAL 05/28/17 08:50 Sodium 140 mEq/L (136-145) 05/29/17 05:05 Potassium 3.6 mEq/L (3.5-5.1) 05/29/17 05:05 Chloride 104 mEq/L (98-107) 05/29/17 05:05 Carbon Dioxide 28.5 mEq/L (21.0-31.0) 05/29/17 05:05 Anion Gap 11.1 (7.0-16.0) 05/29/17 05:05 BUN 59 mg/dL (7-25) H 05/29/17 05:05 Creatinine 2.4 mg/dL (0.7-1.3) H 05/29/17 05:05 Est GFR ( Amer) TNP 05/29/17 05:05 Est GFR (Non-Af Amer) TNP 05/29/17 05:05 BUN/Creatinine Ratio 24.6 05/29/17 05:05 Glucose 138 mg/dL (70-105) H 05/29/17 05:05 POC Glucose 158 MG/DL (70 - 105) H 05/29/17 11:34 Hemoglobin A1c % 6.1 % (4.0-6.0) H 05/15/17 06:30 Plasma/Ser Osmolality 301 mOsmol/kg (280-301) 05/14/17 18:20 Whole Bld Lactic Acid 1.58 mmol/L (0.60-1.99) 05/13/17 17:42 Uric Acid 7.7 mg/dL (4.4-7.6) H 05/15/17 06:30 Calcium 9.0 mg/dL (8.6-10.3) 05/29/17 05:05 Phosphorus 4.3 mg/dL (2.5-5.0) 05/29/17 05:05 Magnesium 1.9 mg/dL (1.9-2.7) 05/29/17 05:05 Total Bilirubin 1.8 mg/dL (0.3-1.0) H 05/29/17 05:05 Direct Bilirubin 0.09 mg/dL (0.0-0.2) 05/19/17 04:50 AST 94 U/L (13-39) H 05/29/17 05:05 ALT 10 U/L (7-52) 05/29/17 05:05 Alkaline Phosphatase 238 U/L (34-104) H 05/29/17 05:05 Ammonia 65 umol/L (16-53) H 05/19/17 04:50 Creatine Kinase 35 U/L (30-223) 05/16/17 23:06 Troponin I 0.02 ng/mL (0.01-0.05) 05/16/17 23:06 B-Natriuretic Peptide 739.0 pg/mL (5.0-100.0) H 05/23/17 04:48 Total Protein 6.0 gm/dL (6.0-8.3) 05/29/17 05:05 Albumin 3.3 gm/dL (4.2-5.5) L 05/29/17 05:05 Globulin 2.7 gm/dL 05/29/17 05:05 Albumin/Globulin Ratio 1.2 (1.0-1.8) 05/29/17 05:05 Prealbumin 9 mg/dL (9-32) 05/24/17 04:49 Triglycerides 47 mg/dL (<150) 05/24/17 04:49 Cholesterol 55 mg/dL (<200) 05/24/17 04:49 TSH 2.74 uIU/ml (0.34-5.60) 05/15/17 06:30 Urine Source CATH 05/13/17 19:50 Urine Color YELLOW 05/13/17 19:50 Urine Clarity CLOUDY (CLEAR) 05/13/17 19:50 Urine pH 6.0 05/13/17 19:50 Ur Specific [place] 1.015 (1.005-1.030) 05/13/17 19:50 Urine Protein 100 mg/dL (NEGATIVE) H 05/13/17 19:50 Urine Glucose (UA) NEGATIVE mg/dL (NEGATIVE) 05/13/17 19:50 Urine Ketones NEGATIVE mg/dL (NEGATIVE) 05/13/17 19:50 Urine Blood LARGE (NEGATIVE) H 05/13/17 19:50 Urine Nitrate NEGATIVE (NEGATIVE) 05/13/17 19:50 Urine Bilirubin NEGATIVE (NEGATIVE) 05/13/17 19:50 Urine Urobilinogen 0.2 E.U./dL (0.2 - 1.0) 05/13/17 19:50 Ur Leukocyte Esterase LARGE (NEGATIVE) H 05/13/17 19:50 Urine RBC 50-100 /hpf (0-5) H 05/13/17 19:50 Urine WBC >100 /hpf (0-5) H 05/13/17 19:50 Ur Epithelial Cells NONE SEEN /lpf (FEW) 05/13/17 19:50 Urine Bacteria NONE SEEN /hpf (NONE SEEN) 05/13/17 19:50 Ur Random Sodium 30 mmol/L 05/14/17 18:00 Urine Creatinine 36.4 mg/dl (Not Estab.) 05/14/17 18:00 Urine Microalbumin 363.5 ug/mL (Not Estab.) 05/14/17 18:00 Microalb/Creat Ratio 998.6 mg/g creat (0.0-30.0) H 05/14/17 18:00 Stool Occult Blood NEGATIVE (NEGATIVE) 05/25/17 17:49 Random Vancomycin 19.1 ug/mL (5.0-40.0) 05/19/17 04:50 Hepatitis A IgM Ab Negative (Negative) 05/21/17 04:46 Hep Bs Antigen Negative (Negative) 05/21/17 04:46 Hep B Core IgM Ab Negative (Negative) 05/21/17 04:46 Hepatitis C Antibody 0.1 s/co ratio (0.0-0.9) 05/21/17 04:46 Blood Type B POSITIVE 05/21/17 10:19 Antibody Screen NEGATIVE 05/21/17 10:19 Crossmatch See Detail 05/21/17 10:19 - Physical Exam Vitals and I&O: Vital Signs Temp 98 F 05/29/17 08:00 Pulse 74 05/29/17 11:37 Resp 12 05/29/17 10:00 BP 162/88 05/29/17 10:00 Pulse Ox 100 05/29/17 11:37 Intake & Output 05/28/17 05/29/17 05/29/17 18:59 06:59 18:59 Intake Total 1707.333 150 240 Output Total 2800 0 Balance -1092.667 150 240 Weight (lbs) 88.451 kg 88.451 kg 68.855 kg Intake: Intake, IV Amount 1027.333 150 100 Fluconazole 100mg/50mL 50 100 mg In 50 ml @ 50 mls/ hr IV Q24HR YESS[facility] Rx#: [id number] Multivitamin Inj 10 ml In 927.333 Dextrose 70% 250 ml In Amino Acids 10% 500 ml In Intralipids 20% 200 ml @ 40 mls/hr IV .Q24H YESSICA Rx#:[id number] Tigecycline 50 mg In 100 100 100 Sodium Chloride 0.9% 100 ml @ 100 mls/hr IV Q12H YESSICA Rx#:[id number] Oral 0 Tube Feeding 200 0 TPN/PPN 480 40 Blood Product 0 Lipid 0 Albumin 0 Other 100 Output: Gastric Drainage 0 Urine 300 0 Stool 0 Urine/Stool Mix 0 Emesis 0 Hemodialysis 2500 0 Other 0 Other: # Voids 0 # Bowel Movements 1 0 Stool Characteristics Soft Liquid Brown Active Medications: Current Medications Acetaminophen (Tylenol) 650 mg PO Q4HR PRN PRN Reason: Pain Or Fever above 101 Stop: 07/14/17 15:15 Last Admin: 05/23/17 15:07 Dose: 650 mg Albuterol/Ipratropium (Duoneb Neb) 3 ml HHN Q4HRT [facility] Stop: 07/19/17 14:59 Last Admin: 05/29/17 11:37 Dose: 3 ml Atorvastatin Calcium (Lipitor) 10 mg GT HS [facility]ESSICA PRN Reason: Protocol Stop: 07/14/17 20:59 Last Admin: 05/28/17 20:45 Dose: 10 mg Budesonide (Pulmicort) 1 mg HHN BIDRT [facility] Stop: 07/19/17 18:59 Last Admin: 05/29/17 07:53 Dose: 1 mg Carbidopa/Levodopa (Sinemet 25mg-100 Mg) 1 tab PO TID [facility] Stop: 07/14/17 08:59 Last Admin: 05/29/17 08:10 Dose: 1 tab Chlorhexidine Gluconate (Peridex) 15 ml MM 0800,1999 [facility] Stop: 07/23/17 19:59 Last Admin: 05/29/17 08:11 Dose: 15 ml Dextrose (D50w) 50 ml IVP PRN PRN; Protocol PRN Reason: HYPOGLYCEMIA Stop: 07/20/17 00:54 Last Admin: 05/22/17 23:34 Dose: 50 ml Diltiazem HCl (Cardizem) 10 mg IVP Q6HR PRN PRN Reason: HR >130 Stop: 07/22/17 17:09 Last Admin: 05/24/17 04:21 Dose: 10 mg Furosemide (Lasix) 40 mg IVP DAILY [facility] Stop: 07/18/17 08:59 Last Admin: 05/29/17 08:09 Dose: 40 mg Heparin Sodium (Porcine) (Heparin) 5,000 units SUBQ Q8HR [facility] Stop: 07/22/17 20:59 Last Admin: 05/29/17 06:24 Dose: 5,000 units Norepinephrine Bitartrate 8 mg (/ Dextrose) 258 mls @ 0 mls/hr IV TITR PRN; Protocol; Titrate PRN Reason: BP MAINTENANCE (PER PROTOCOL) Stop: 07/19/17 12:29 Last Admin: 05/21/17 01:06 Dose: 10 mcg/min, 19.35 mls/hr Phenylephrine HCl 10 mg/ (Sodium Chloride) 250 mls @ 0 mls/hr IV TITR YESSICA; Per Protocol PRN Reason: Protocol Stop: 07/19/17 12:59 Tigecycline 50 mg/ Sodium (Chloride) 100 mls @ 100 mls/hr IV Q12H [facility] Stop: 07/21/17 18:59 Last Infusion: 05/29/17 07:17 Dose: Infused Fluconazole (Diflucan) 100 mg in 50 mls @ 50 mls/hr IV Q24HR [facility] Stop: 07/21/17 04:59 Last Infusion: 05/29/17 05:59 Dose: Infused Multivitamins/Minerals 10 ml/Dextrose/ Amino Acids/Electrolytes/ Fat Emulsion Intravenous 960 mls @ 40 mls/hr IV .Q24H [facility] Stop: 07/26/17 15:59 Last Admin: 05/28/17 17:01 Dose: 40 mls/hr Insulin Aspart (Novolog Insulin Sliding Scale) 0 units SUBQ Q6HR [facility]ESS[facility] PRN Reason: Protocol Stop: 07/14/17 00:00 Last Admin: 05/29/17 11:39 Dose: Not Given Ipratropium [place] (Atrovent Neb 0.5mg/2.5ml) 0.5 mg HHN Q4HRT [facility] Stop: 07/17/17 14:59 Last Admin: 05/24/17 03:19 Dose: 0.5 mg Isosorbide Dinitrate (Isordil) 10 mg GT TID [facility] Stop: 07/14/17 08:59 Last Admin: 05/29/17 08:10 Dose: 10 mg Lactobacillus Rhamnosus (Culturelle) 1 each PO DAILY [facility] Stop: 07/17/17 08:59 Last Admin: 05/29/17 08:10 Dose: 1 each Levetiracetam (Keppra) 250 mg NG BID [facility] Stop: 07/14/17 08:59 Last Admin: 05/29/17 08:38 Dose: 250 mg Metoclopramide HCl (Reglan) 5 mg IVP TID [facility] Stop: 07/20/17 20:59 Last Admin: 05/29/17 08:10 Dose: 5 mg Metoprolol Tartrate (Lopressor) 50 mg GT Q8H [facility] Stop: 07/18/17 08:59 Last Admin: 05/29/17 08:09 Dose: 50 mg Miscellaneous (Vte Chemical Prophylaxis Screen/ Admission) 1 ea MC PRN PRN PRN Reason: PROTOCOL Stop: 07/14/17 09:25 Miscellaneous (Clinical Monitoring) 1 ea MC DAILY PRN PRN Reason: RENAL Stop: 07/15/17 12:32 Miscellaneous (Probiotic Screen) 1 ea MC PRN PRN PRN Reason: PROTOCOL Stop: 07/16/17 09:33 Miscellaneous (Tpn Per Pharmacy) 1 ea PRN PRN PRN Reason: PROTOCOL Stop: 07/24/17 15:59 Mupirocin (Bactroban Oint) 1 appl TP BID [facility] Stop: 07/14/17 16:59 Last Admin: 05/29/17 08:11 Dose: 1 appl Pantoprazole Sodium (Protonix) 40 mg GT DAILY [facility] Stop: 07/14/17 08:59 Last Admin: 05/29/17 08:10 Dose: 40 mg General: No acute distress, no Alert HEENT: Atraumatic, Mucous membr. moist/pink Neck: Supple, +2 carotid pulse wo bruit Cardiovascular: Regular rate, Normal S1, Normal S2, Other (afib with fluctuating heart rate) Lungs: Other (occasional rhonchi) Abdomen: Soft Extremities: no Edema Neurological: Sensation intact, Other (lethargic) Skin: no Rash Psych/Mental Status: Mood NL - Procedures Procedures: Procedures Procedure Code Date INSERT EMERGENCY AIRWAY 49506 05/13/17 INSERT TUNNELED CV CATH 27494 05/13/17 INSERTION OF ENDOTRACHEAL AIRWAY INTO TRACHEA, VIA OPENING [id number] 05/13/17 INSERTION OF INFUSION DEV INTO R FEMOR VEIN, PERC APPROACH [id number] 05/13/17 RESPIRATORY VENTILATION, GREATER THAN 96 CONSECUTIVE HOURS [id number] 05/13/17 VENT MGMT INPAT INIT DAY 54075 05/13/17 Assessment/Plan - Problem List Patient Problems: All Active Problems COUGH AND CONGESTION (Acute) - Assessment Assessment: NICK on CKD, now on dialysis A LOC secondary to metabolic encephalopathy/medications Dehydration Essential hypertension with CKD COPD Chronic atrial fibrillation Status post CVA Aspiration pneumonia/dysphagia status post PEG Type 2 diabetes mellitus with CKD Acute Decompensated CHF Acute Resp Failure on Vent Bradycardia - Plan Plan: Lab - Result Diagrams 05/15/17 06:30 05/15/17 06:30 Current Medications Acetaminophen (Tylenol) 650 mg PO Q4HR PRN PRN Reason: Pain Or Fever above 101 Stop: 07/14/17 15:15 Last Admin: 05/15/17 16:21 Dose: 650 mg Albuterol Sulfate (Albuterol 2.5mg/3ml Neb Ud) 2.5 mg HHN Q6HRT [facility] Stop: 07/14/17 00:59 Last Admin: 05/15/17 16:05 Dose: 2.5 mg Atorvastatin Calcium (Lipitor) 10 mg GT HS [facility] PRN Reason: Protocol Stop: 07/14/17 20:59 Carbidopa/Levodopa (Sinemet 25mg-100 Mg) 1 tab PO TID [facility] Stop: 07/14/17 08:59 Last Admin: 05/15/17 14:02 Dose: 1 tab Heparin Sodium (Porcine) (Heparin) 5,000 units SUBQ Q8H [facility] Stop: 07/14/17 14:59 Last Admin: 05/15/17 16:24 Dose: 5,000 units Sodium Chloride (Nacl 0.9%) 1,000 mls @ 60 mls/hr IV .[id number] [facility] Stop: 07/13/17 06:40 Last Admin: 05/14/17 17:16 Dose: 60 mls/hr Azithromycin 250 mg/ Sodium (Chloride) 250 mls @ 250 mls/hr IV Q24HR [facility] Stop: 05/20/17 08:59 Piperacillin Sod/Tazobactam (Sod 3.375 gm/ Sodium Chloride) 50 mls @ 100 mls/ hr IV Q8HR [facility] Stop: 07/14/17 15:14 Last Admin: 05/15/17 15:57 Dose: 100 mls/hr Insulin Aspart (Novolog Insulin Sliding Scale) 0 units SUBQ Q6HR [facility] PRN Reason: Protocol Stop: 07/14/17 00:00 Last Admin: 05/15/17 17:09 Dose: Not Given Insulin Detemir (Levemir Insulin) 14 units SUBQ DAILY [facility] PRN Reason: Protocol Stop: 07/15/17 08:59 Isosorbide Dinitrate (Isordil) 10 mg GT TID [facility] Stop: 07/14/17 08:59 Last Admin: 05/15/17 14:02 Dose: 10 mg Lactulose (Cephulac) 20 gm PO TID [facility] Stop: 07/14/17 08:59 Last Admin: 05/15/17 14:02 Dose: 20 gm Levetiracetam (Keppra) 250 mg NG BID [facility] Stop: 07/14/17 08:59 Last Admin: 05/15/17 16:23 Dose: 250 mg Metoprolol Tartrate (Lopressor) 37.5 mg GT BID [facility] Stop: 07/14/17 00:14 Last Admin: 05/15/17 16:22 Dose: 37.5 mg Miscellaneous (Vte Chemical Prophylaxis Screen/ Admission) 1 ea PRN PRN PRN Reason: PROTOCOL Stop: 07/14/17 09:25 Morphine Sulfate (Morphine) 2 mg IVP Q3H PRN PRN Reason: PAIN Stop: 07/13/17 19:46 Last Admin: 05/14/17 21:16 Dose: 2 mg Mupirocin (Bactroban Oint) 1 appl TP BID [facility] Stop: 07/14/17 16:59 Last Admin: 05/15/17 16:24 Dose: 1 appl Pantoprazole Sodium (Protonix) 40 mg GT DAILY [facility] Stop: 07/14/17 08:59 Last Admin: 05/15/17 08:36 Dose: 40 mg Rifaximin (Xifaxan) 550 mg GT BID [facility] Stop: 07/14/17 08:59 Last Admin: 05/15/17 16:23 Dose: 550 mg Kidney function improved with a BUN/Cr 59/2.4 Sodium 140 White count down to 9.3 on Zosyn Chest x-ray still w/ b/l infiltrates, effusions, no significant change Reviewed his meds Follow-up electrolytes currently on PPN @ 40 ml /hr prognosis poor Hgb/Hct down to 8.3/24.7 scheduled for HD in am Follow-up electrolytes, CBC and chest x-ray in a.m. urine ouput minimal Lab - Result Diagrams 05/24/17 04:49 05/24/17 04:49 addendum: Poor response to diuretics, w/ worsening CHF, BNP level developed resp failure, required intubation worsening cardio-renal syndrome discussed w/ grandson Pedro, about poor prognosis but still want to proceed w/ dialysis Nutritional Asmnt/Malnutr-PDOC - Dietary Evaluation Malnutrition Findings (Please click <Entered> for more info): Nutritional Asmnt/Malnutrition Start: 05/15/17 13: 56 Text: Status: Complete Freq: Document 05/15/17 13:56 GSUN (Rec: 05/15/17 14:18 GSUN [id number]) Nutritional Asmnt/Malnutrition Patient General Information Nutritional Screening High Risk Screening Diagnosis PNA, NICK, icnreasing renal failure, CVA, CHF, DM Pertinent Medical Hx/Surgical Hx CVA, dementia, afib, CAD, HTN, dyslipidemia, epilepsy, GERD, aspiration PNA, DM, CKD, dehydration, C. diff, anemia D Subjective Information 86 year old male from SNF. Pt greeted RD. Pt is overall thin , moderate to severe wasting to chest, clavicles, extremities. Observed Glytrol running at 60ml/hr x20hrs during visit. Unable to obtain CBW due to bedscale not calibrated. Discussed with YVETTE Farooq regarding tube feeding recommendations. Current Diet Order/ Nutrition Support Glytrol at 60ml/hr x 20hrs, providing 1200kcal 54g protein Pertinent Medications Lipitor, Novolog, Levemir, Cephulac, Morphine, Protonix, Nacl 0.9% Pertinent Labs 05/13: potassium 5.3H, BUN 80H, creatinine 2.4H, glucose 103 05/15: potassium WNL, BUN 70H, creatinine 2.4H, glucose 239H, A1c 6.1H, phosphorus 5.4H Nutritional Hx/Data Height 1.68 m Height (Calculated Centimeters) 167.6 Current Weight (lbs) 65.771 kg Weight (Calculated Kilograms) 65.8 Weight (Calculated Grams) 30078.9 [place] Body Weight 142 Weight Status Approriate GI Symptoms Difficult in: Swallowing Cultural/Ethnic/Christian Belief [facility]: Glucerna 1.2 at 85ml/hr x 20hrs, providing 2040kcal, promote weight gain. Skin Integrity/Comment: Gee 12. Skin intact. Estimated Nutritional Goals Calories/Kcals/Kg CBW 145lb/65.9kg Kcals Calculated 1976-7kcal (30-35kcal/kg) Protein Calculated 46-92g (0.7-1.4g/kg, renal vs moderate to severe wasting) Fluid: ml Per MD (renal) Nutritional Problem 2. 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 Problem Problem Inadequate intake from enteral nutrition infusion related to Etiology estimated nutritional needs aeb Signs/Symptoms: providing to meet 61% lower end kcal needs Intervention/Recommendation Comments 1. Recommend Novasource Renal at 50ml/hr x 20hrs, providing 2000kcal and 91g protein. Current order Glytrol at 60ml/ hr x 20hrs is only providing 1200kcal, pt recieves 2040kcal at [facility]. Expected Outcomes/Goals Expected Outcomes/Goals 1. Pt to meet at least 100% of estimated nutritional needs on tube feeding with tolerance .
--- NOTE | 2017-05-29 13:00 | Infectious Disease Prog Note ---
Infectious Disease Subjective - Review of Systems Service Date: 05/29/17 Subjective: No new change. No fever. intubated orally, on vent support. Infectious Disease Objective - Results Result Diagrams: 05/29/17 05:05 05/29/17 05:05 Recent Labs: Laboratory Last Values WBC 9.3 Th/cmm (4.8-10.8) D 05/29/17 05:05 RBC 2.91 Mil/cmm (3.80-5.80) L 05/29/17 05:05 Hgb 8.3 gm/dL (12.6-17.4) L 05/29/17 05:05 Hct 24.7 % (39.0-49.0) L 05/29/17 05:05 MCV 84.8 fl (80-99) 05/29/17 05:05 MCH 28.5 pg (27.0-31.0) 05/29/17 05:05 MCHC Differential 33.6 pg (28.0-36.0) 05/29/17 05:05 RDW 16.3 % (11.5-20.0) 05/29/17 05:05 Plt Count 218 Th/cmm (150-400) 05/29/17 05:05 MPV 8.4 fl 05/29/17 05:05 Neutrophils % 81.3 % (40.0-80.0) H 05/29/17 05:05 Band Neutrophils % 2 % (0-10) 05/26/17 04:40 Lymphocytes % 9.8 % (20.0-50.0) L 05/29/17 05:05 Monocytes % 7.7 % (2.0-10.0) 05/29/17 05:05 Eosinophils % 1.0 % (0.0-5.0) 05/29/17 05:05 Basophils % 0.2 % (0.0-2.0) 05/29/17 05:05 Neutrophils (Manual) 89 % (40-80) H 05/26/17 04:40 Lymphocytes 5 % (20-50) L 05/26/17 04:40 Monocytes 4 % (2-10) 05/26/17 04:40 Eosinophils 0 % (0-5) 05/24/17 04:49 Basophils 0 % (0-3) 05/24/17 04:49 Metamyelocytes 1 % (0-0) H 05/22/17 04:44 Toxic Granulation 1+ 05/23/17 04:48 Platelet Estimate ADEQUATE (NORMAL) 05/26/17 04:40 Platelet Morphology NORMAL (NORMAL) 05/26/17 04:40 Anisocytosis 1+ 05/22/17 04:44 RBC Morph Micro Appear NORMAL (NORMAL) 05/26/17 04:40 Eos Smear Source URINE 05/14/17 18:00 Eos Smear Total Cells FEW EOSINOPHILS SEEN (NONE SEEN) 05/14/17 18:00 PT 11.9 SECONDS (9.5-11.5) H 05/13/17 17:42 INR 1.13 (0.5-1.4) 05/13/17 17:42 PTT (Actin FS) 30.5 SECONDS (26.0-38.0) 05/15/17 12:30 Specimen Source Arterial 05/28/17 08:50 Sample Site Right Radial 05/28/17 08:50 pH 7.37 (7.35-7.45) 05/28/17 08:50 pCO2 47.0 mmHg (35.0-45.0) H 05/28/17 08:50 pO2 83.0 mmHg (80.0-100.0) 05/28/17 08:50 HCO3 26.0 mEq/L (20.0-26.0) 05/28/17 08:50 Base Excess 1.4 mEq/L (-3.0-3.0) 05/28/17 08:50 O2 Saturation 96.0 % (92.0-100.0) 05/28/17 08:50 Feliciano Test YES 05/28/17 08:50 Vent Rate 12 05/28/17 08:50 Inspired O2 40 05/28/17 08:50 Tidal Volume 500 05/28/17 08:50 PEEP 0 05/28/17 08:50 Pressure (ins/psv/peep) 15 05/28/17 08:50 Critical Value E.MCNEAL 05/28/17 08:50 Sodium 140 mEq/L (136-145) 05/29/17 05:05 Potassium 3.6 mEq/L (3.5-5.1) 05/29/17 05:05 Chloride 104 mEq/L (98-107) 05/29/17 05:05 Carbon Dioxide 28.5 mEq/L (21.0-31.0) 05/29/17 05:05 Anion Gap 11.1 (7.0-16.0) 05/29/17 05:05 BUN 59 mg/dL (7-25) H 05/29/17 05:05 Creatinine 2.4 mg/dL (0.7-1.3) H 05/29/17 05:05 Est GFR ( Amer) TNP 05/29/17 05:05 Est GFR (Non-Af Amer) TNP 05/29/17 05:05 BUN/Creatinine Ratio 24.6 05/29/17 05:05 Glucose 138 mg/dL (70-105) H 05/29/17 05:05 POC Glucose 158 MG/DL (70 - 105) H 05/29/17 11:34 Hemoglobin A1c % 6.1 % (4.0-6.0) H 05/15/17 06:30 Plasma/Ser Osmolality 301 mOsmol/kg (280-301) 05/14/17 18:20 Whole Bld Lactic Acid 1.58 mmol/L (0.60-1.99) 05/13/17 17:42 Uric Acid 7.7 mg/dL (4.4-7.6) H 05/15/17 06:30 Calcium 9.0 mg/dL (8.6-10.3) 05/29/17 05:05 Phosphorus 4.3 mg/dL (2.5-5.0) 05/29/17 05:05 Magnesium 1.9 mg/dL (1.9-2.7) 05/29/17 05:05 Total Bilirubin 1.8 mg/dL (0.3-1.0) H 05/29/17 05:05 Direct Bilirubin 0.09 mg/dL (0.0-0.2) 05/19/17 04:50 AST 94 U/L (13-39) H 05/29/17 05:05 ALT 10 U/L (7-52) 05/29/17 05:05 Alkaline Phosphatase 238 U/L (34-104) H 05/29/17 05:05 Ammonia 65 umol/L (16-53) H 05/19/17 04:50 Creatine Kinase 35 U/L (30-223) 05/16/17 23:06 Troponin I 0.02 ng/mL (0.01-0.05) 05/16/17 23:06 B-Natriuretic Peptide 739.0 pg/mL (5.0-100.0) H 05/23/17 04:48 Total Protein 6.0 gm/dL (6.0-8.3) 05/29/17 05:05 Albumin 3.3 gm/dL (4.2-5.5) L 05/29/17 05:05 Globulin 2.7 gm/dL 05/29/17 05:05 Albumin/Globulin Ratio 1.2 (1.0-1.8) 05/29/17 05:05 Prealbumin 9 mg/dL (9-32) 05/24/17 04:49 Triglycerides 47 mg/dL (<150) 05/24/17 04:49 Cholesterol 55 mg/dL (<200) 05/24/17 04:49 TSH 2.74 uIU/ml (0.34-5.60) 05/15/17 06:30 Urine Source CATH 05/13/17 19:50 Urine Color YELLOW 05/13/17 19:50 Urine Clarity CLOUDY (CLEAR) 05/13/17 19:50 Urine pH 6.0 05/13/17 19:50 Ur Specific [place] 1.015 (1.005-1.030) 05/13/17 19:50 Urine Protein 100 mg/dL (NEGATIVE) H 05/13/17 19:50 Urine Glucose (UA) NEGATIVE mg/dL (NEGATIVE) 05/13/17 19:50 Urine Ketones NEGATIVE mg/dL (NEGATIVE) 05/13/17 19:50 Urine Blood LARGE (NEGATIVE) H 05/13/17 19:50 Urine Nitrate NEGATIVE (NEGATIVE) 05/13/17 19:50 Urine Bilirubin NEGATIVE (NEGATIVE) 05/13/17 19:50 Urine Urobilinogen 0.2 E.U./dL (0.2 - 1.0) 05/13/17 19:50 Ur Leukocyte Esterase LARGE (NEGATIVE) H 05/13/17 19:50 Urine RBC 50-100 /hpf (0-5) H 05/13/17 19:50 Urine WBC >100 /hpf (0-5) H 05/13/17 19:50 Ur Epithelial Cells NONE SEEN /lpf (FEW) 05/13/17 19:50 Urine Bacteria NONE SEEN /hpf (NONE SEEN) 05/13/17 19:50 Ur Random Sodium 30 mmol/L 05/14/17 18:00 Urine Creatinine 36.4 mg/dl (Not Estab.) 05/14/17 18:00 Urine Microalbumin 363.5 ug/mL (Not Estab.) 05/14/17 18:00 Microalb/Creat Ratio 998.6 mg/g creat (0.0-30.0) H 05/14/17 18:00 Stool Occult Blood NEGATIVE (NEGATIVE) 05/25/17 17:49 Random Vancomycin 19.1 ug/mL (5.0-40.0) 05/19/17 04:50 Hepatitis A IgM Ab Negative (Negative) 05/21/17 04:46 Hep Bs Antigen Negative (Negative) 05/21/17 04:46 Hep B Core IgM Ab Negative (Negative) 05/21/17 04:46 Hepatitis C Antibody 0.1 s/co ratio (0.0-0.9) 05/21/17 04:46 Blood Type B POSITIVE 05/21/17 10:19 Antibody Screen NEGATIVE 05/21/17 10:19 Crossmatch See Detail 05/21/17 10:19 - Physical Exam Vitals and I&O: Vital Signs Temp 98 F 05/29/17 08:00 Pulse 74 05/29/17 11:37 Resp 12 05/29/17 10:00 BP 162/88 05/29/17 10:00 Pulse Ox 100 05/29/17 12:00 Intake & Output 05/28/17 05/29/17 05/29/17 18:59 06:59 18:59 Intake Total 1707.333 150 240 Output Total 2800 0 Balance -1092.667 150 240 Weight (lbs) 88.451 kg 88.451 kg 68.855 kg Intake: Intake, IV Amount 1027.333 150 100 Fluconazole 100mg/50mL 50 100 mg In 50 ml @ 50 mls/ hr IV Q24HR YESSICA Rx#: [id number] Multivitamin Inj 10 ml In 927.333 Dextrose 70% 250 ml In Amino Acids 10% 500 ml In Intralipids 20% 200 ml @ 40 mls/hr IV .Q24H YESSICA Rx#:[id number] Tigecycline 50 mg In 100 100 100 Sodium Chloride 0.9% 100 ml @ 100 mls/hr IV Q12H [facility] Rx#:[id number] Oral 0 Tube Feeding 200 0 TPN/PPN 480 40 Blood Product 0 Lipid 0 Albumin 0 Other 100 Output: Gastric Drainage 0 Urine 300 0 Stool 0 Urine/Stool Mix 0 Emesis 0 Hemodialysis 2500 0 Other 0 Other: # Voids 0 # Bowel Movements 1 0 Stool Characteristics Soft Liquid Brown Active Medications: Current Medications Acetaminophen (Tylenol) 650 mg PO Q4HR PRN PRN Reason: Pain Or Fever above 101 Stop: 07/14/17 15:15 Last Admin: 05/23/17 15:07 Dose: 650 mg Albuterol/Ipratropium (Duoneb Neb) 3 ml HHN Q4HRT [facility] Stop: 07/19/17 14:59 Last Admin: 05/29/17 11:37 Dose: 3 ml Atorvastatin Calcium (Lipitor) 10 mg GT HS YESSICA PRN Reason: Protocol Stop: 07/14/17 20:59 Last Admin: 05/28/17 20:45 Dose: 10 mg Budesonide (Pulmicort) 1 mg HHN BIDRT [facility] Stop: 07/19/17 18:59 Last Admin: 05/29/17 07:53 Dose: 1 mg Carbidopa/Levodopa (Sinemet 25mg-100 Mg) 1 tab PO TID [facility] Stop: 07/14/17 08:59 Last Admin: 05/29/17 08:10 Dose: 1 tab Chlorhexidine Gluconate (Peridex) 15 ml MM 0800,2000 [facility] Stop: 07/23/17 19:59 Last Admin: 05/29/17 08:11 Dose: 15 ml Dextrose (D50w) 50 ml IVP PRN PRN; Protocol PRN Reason: HYPOGLYCEMIA Stop: 07/20/17 00:54 Last Admin: 05/22/17 23:34 Dose: 50 ml Diltiazem HCl (Cardizem) 10 mg IVP Q6HR PRN PRN Reason: HR >130 Stop: 07/22/17 17:09 Last Admin: 05/24/17 04:21 Dose: 10 mg Furosemide (Lasix) 40 mg IVP DAILY [facility] Stop: 07/18/17 08:59 Last Admin: 05/29/17 08:09 Dose: 40 mg Heparin Sodium (Porcine) (Heparin) 5,000 units SUBQ Q8HR [facility]ESS[facility] Stop: 07/22/17 20:59 Last Admin: 05/29/17 06:24 Dose: 5,000 units Norepinephrine Bitartrate 8 mg (/ Dextrose) 258 mls @ 0 mls/hr IV TITR PRN; Protocol; Titrate PRN Reason: BP MAINTENANCE (PER PROTOCOL) Stop: 07/19/17 12:29 Last Admin: 05/21/17 01:06 Dose: 10 mcg/min, 19.35 mls/hr Phenylephrine HCl 10 mg/ (Sodium Chloride) 250 mls @ 0 mls/hr IV TITR YESSICA; Per Protocol PRN Reason: Protocol Stop: 07/19/17 12:59 Tigecycline 50 mg/ Sodium (Chloride) 100 mls @ 100 mls/hr IV Q12H [facility] Stop: 07/21/17 18:59 Last Infusion: 05/29/17 07:17 Dose: Infused Multivitamins/Minerals 10 ml/Dextrose/ Amino Acids/Electrolytes/ Fat Emulsion Intravenous 960 mls @ 40 mls/hr IV .Q24H [facility] Stop: 07/26/17 15:59 Last Admin: 05/28/17 17:01 Dose: 40 mls/hr Albumin Human (Albuminar 25%) 25 gm in 100 mls @ 50 mls/hr IV X1 ONE Stop: 05/30/17 13:52 Albumin Human (Albuminar 25%) 25 gm in 100 mls @ 50 mls/hr IV X1 ONE Stop: 05/30/17 13:52 Insulin Aspart (Novolog Insulin Sliding Scale) 0 units SUBQ Q6HR YESSICA PRN Reason: Protocol Stop: 07/14/17 00:00 Last Admin: 05/29/17 11:39 Dose: Not Given Ipratropium [place] (Atrovent Neb 0.5mg/2.5ml) 0.5 mg HHN Q4HRT [facility] Stop: 07/17/17 14:59 Last Admin: 05/24/17 03:19 Dose: 0.5 mg Isosorbide Dinitrate (Isordil) 10 mg GT TID [facility] Stop: 07/14/17 08:59 Last Admin: 05/29/17 08:10 Dose: 10 mg Lactobacillus Rhamnosus (Culturelle) 1 each PO DAILY [facility] Stop: 07/17/17 08:59 Last Admin: 05/29/17 08:10 Dose: 1 each Levetiracetam (Keppra) 250 mg NG BID YESSICA Stop: 07/14/17 08:59 Last Admin: 05/29/17 08:38 Dose: 250 mg Metoclopramide HCl (Reglan) 5 mg IVP TID YESSICA Stop: 07/20/17 20:59 Last Admin: 05/29/17 08:10 Dose: 5 mg Metoprolol Tartrate (Lopressor) 50 mg GT Q8H [facility]ESSICA Stop: 07/18/17 08:59 Last Admin: 05/29/17 08:09 Dose: 50 mg Miscellaneous (Vte Chemical Prophylaxis Screen/ Admission) 1 ea PRN PRN PRN Reason: PROTOCOL Stop: 07/14/17 09:25 Miscellaneous (Clinical Monitoring) 1 ea [facility] DAILY PRN PRN Reason: RENAL Stop: 07/15/17 12:32 Miscellaneous (Probiotic Screen) 1 [facility] PRN PRN PRN Reason: PROTOCOL Stop: 07/16/17 09:33 Miscellaneous (Tpn Per Pharmacy) 1 [facility] PRN PRN PRN Reason: PROTOCOL Stop: 07/24/17 15:59 Mupirocin (Bactroban Oint) 1 appl TP BID YESSICA Stop: 07/14/17 16:59 Last Admin: 05/29/17 08:11 Dose: 1 appl Pantoprazole Sodium (Protonix) 40 mg GT DAILY [facility]ESSICA Stop: 07/14/17 08:59 Last Admin: 05/29/17 08:10 Dose: 40 mg General: no acute distress, well developed, well nourished HEENT: atraumatic, normocephalic, PERRLA, EOMI, moist mucous membrane Neck: supple, no thyromegaly, no lymphadenopathy, no rigid Cardiovascular: S1S2, regular Lungs: clear to percussion, crackles, rhonchi, no clear to auscultation bilaterally Abdomen: soft, no tender, no distended, no mass, no rebound, no hepatomegaly, no splenomegaly, no ascites Extremities: no cyanosis, no clubbing, no edema Skin: intact - Procedures Procedures: Procedures Procedure Code Date INSERT EMERGENCY AIRWAY 76589 05/13/17 INSERT TUNNELED CV CATH [id number] 05/13/17 INSERTION OF ENDOTRACHEAL AIRWAY INTO TRACHEA, VIA OPENING [id number] 05/13/17 INSERTION OF INFUSION DEV INTO R FEMOR VEIN, PERC APPROACH [id number] 05/13/17 RESPIRATORY VENTILATION, GREATER THAN 96 CONSECUTIVE HOURS [id number] 05/13/17 VENT MGMT INPAT INIT DAY [id number] 05/13/17 Infectious Disease Assmt/Plan - Problem List Patient Problems: All Active Problems COUGH AND CONGESTION (Acute) - Assessment Assessment: 1. Pneuimonia.? Aspiration. 2. NICK. 3. CVA. 4. CHF. 5. CKD4. NICK mild rise in creatinine. 6. Afib with rapid ventricular response. Plan: Continue tygacil as aptient has very extensive pneumonia. Nutritional Asmnt/Malnutr-PDOC - Dietary Evaluation Malnutrition Findings (Please click <Entered> for more info): Nutritional Asmnt/Malnutrition Start: 05/15/17 13: 56 Text: Status: Complete Freq: Document 05/15/17 13:56 GSUN (Rec: 05/15/17 14:18 GSUN [id number]) Nutritional Asmnt/Malnutrition Patient General Information Nutritional Screening High Risk Screening Diagnosis PNA, NICK, icnreasing renal failure, CVA, CHF, DM Pertinent Medical Hx/Surgical Hx CVA, dementia, afib, CAD, HTN, dyslipidemia, epilepsy, GERD, aspiration PNA, DM, CKD, dehydration, C. diff, anemia D Subjective Information 86 year old male from SNF. Pt greeted RD. Pt is overall thin , moderate to severe wasting to chest, clavicles, extremities. Observed Glytrol running at 60ml/hr x20hrs during visit. Unable to obtain CBW due to bedscale not calibrated. Discussed with YVETTE Farooq regarding tube feeding recommendations. Current Diet Order/ Nutrition Support Glytrol at 60ml/hr x 20hrs, providing 1200kcal 54g protein Pertinent Medications Lipitor, Novolog, Levemir, Cephulac, Morphine, Protonix, Nacl 0.9% Pertinent Labs 05/13: potassium 5.3H, BUN 80H, creatinine 2.4H, glucose 103 05/15: potassium WNL, BUN 70H, creatinine 2.4H, glucose 239H, A1c 6.1H, phosphorus 5.4H Nutritional Hx/Data Height 1.68 m Height (Calculated Centimeters) 167.6 Current Weight (lbs) 65.771 kg Weight (Calculated Kilograms) 65.8 Weight (Calculated Grams) 54250.9 [place] Body Weight 142 Weight Status Approriate GI Symptoms Difficult in: Swallowing Cultural/Ethnic/M[employer]onism Belief [facility]: Glucerna 1.2 at 85ml/hr x 20hrs, providing 2040kcal, promote weight gain. Skin Integrity/Comment: Gee 12. Skin intact. Estimated Nutritional Goals Calories/Kcals/Kg CBW 145lb/65.9kg Kcals Calculated 1976-7kcal (30-35kcal/kg) Protein Calculated 46-92g (0.7-1.4g/kg, renal vs moderate to severe wasting) Fluid: ml Per MD (renal) Nutritional Problem 2. Problem Problem Impaired nutrient utilization related to Etiology NICK, hx CKD aeb Signs/Symptoms: "increasing renal failure," potaasum 5.3H on adm, BUN 70H, energy conservation representative 2.4H, phosphorus 5.4H 1. Problem Problem Inadequate intake from enteral nutrition infusion related to Etiology estimated nutritional needs aeb Signs/Symptoms: providing to meet 61% lower end kcal needs Intervention/Recommendation Comments 1. Recommend Novasource Renal at 50ml/hr x 20hrs, providing 2000kcal and 91g protein. Current order Glytrol at 60ml/ hr x 20hrs is only providing 1200kcal, pt recieves 2040kcal at [facility]. Expected Outcomes/Goals Expected Outcomes/Goals 1. Pt to meet at least 100% of estimated nutritional needs on tube feeding with tolerance .
--- NOTE | 2017-05-29 14:40 | Progress Notes ---
DATE: 05/29/2017 PROBLEM LIST: 1. Persistent respiratory failure. 2. Bilateral pneumonia MDRO. 3. History of congestive heart failure. 4. Significant anoxic encephalopathy. 5. Renal failure, on hemodialysis. SYMPTOMS: The patient is slightly awake, moving side to side, but not consistent and persistently following command. Currently, SIMV of 10. No respiratory distress, etc. PHYSICAL EXAMINATION: VITAL SIGNS: The patient's temperature is 96, pulses about 80, blood pressure 162/80, saturation 100% on 40% of oxygen. NECK: Neck veins not visualized. CHEST: Shows scattered rales with diminished air entry. HEART: Regular. ABDOMEN: Soft, nontender. EXTREMITIES: Shows slight edematous changes. LABORATORY DATA: White count is 9.3, hemoglobin 8.3. The patient's electrolytes, creatinine is 2.5, BUN is 59. ASSESSMENT: The patient clinically status quo, not significantly changed, extensive pneumonia, respiratory failure, possibly anoxic encephalopathy now renal failure, on hemodialysis. PLANS AND SUGGESTIONS: We will go ahead and continue current respiratory care, inhalation treatment, etc. I have discussed with Dr. Montano consideration for possibly trach in few days should be continued. We will follow through the blood gases and chest x-ray and go from there. JOB# [id number]
[2017-05-29] MEDS: TPN 10%-70% CUSTOM IV SCH (16:55)
[2017-05-29] MEDS: Atorvastatin Calcium 10 MG TAB GT SCH (21:05)
--- NOTE | 2017-05-29 21:43 | General Progress Note ---
Subjective - Review of Systems Service Date: 05/29/17 Subjective: Patient seen and examined no new concern reported Objective - Results Result Diagrams: 05/29/17 05:05 05/29/17 05:05 Recent Labs: Laboratory Last Values WBC 9.3 Th/cmm (4.8-10.8) D 05/29/17 05:05 RBC 2.91 Mil/cmm (3.80-5.80) L 05/29/17 05:05 Hgb 8.3 gm/dL (12.6-17.4) L 05/29/17 05:05 Hct 24.7 % (39.0-49.0) L 05/29/17 05:05 MCV 84.8 fl (80-99) 05/29/17 05:05 MCH 28.5 pg (27.0-31.0) 05/29/17 05:05 MCHC Differential 33.6 pg (28.0-36.0) 05/29/17 05:05 RDW 16.3 % (11.5-20.0) 05/29/17 05:05 Plt Count 218 Th/cmm (150-400) 05/29/17 05:05 MPV 8.4 fl 05/29/17 05:05 Neutrophils % 81.3 % (40.0-80.0) H 05/29/17 05:05 Band Neutrophils % 2 % (0-10) 05/26/17 04:40 Lymphocytes % 9.8 % (20.0-50.0) L 05/29/17 05:05 Monocytes % 7.7 % (2.0-10.0) 05/29/17 05:05 Eosinophils % 1.0 % (0.0-5.0) 05/29/17 05:05 Basophils % 0.2 % (0.0-2.0) 05/29/17 05:05 Neutrophils (Manual) 89 % (40-80) H 05/26/17 04:40 Lymphocytes 5 % (20-50) L 05/26/17 04:40 Monocytes 4 % (2-10) 05/26/17 04:40 Eosinophils 0 % (0-5) 05/24/17 04:49 Basophils 0 % (0-3) 05/24/17 04:49 Metamyelocytes 1 % (0-0) H 05/22/17 04:44 Toxic Granulation 1+ 05/23/17 04:48 Platelet Estimate ADEQUATE (NORMAL) 05/26/17 04:40 Platelet Morphology NORMAL (NORMAL) 05/26/17 04:40 Anisocytosis 1+ 05/22/17 04:44 RBC Morph Micro Appear NORMAL (NORMAL) 05/26/17 04:40 Eos Smear Source URINE 05/14/17 18:00 Eos Smear Total Cells FEW EOSINOPHILS SEEN (NONE SEEN) 05/14/17 18:00 PT 11.9 SECONDS (9.5-11.5) H 05/13/17 17:42 INR 1.13 (0.5-1.4) 05/13/17 17:42 PTT (Actin FS) 30.5 SECONDS (26.0-38.0) 05/15/17 12:30 Specimen Source Arterial 05/28/17 08:50 Sample Site Right Radial 05/28/17 08:50 pH 7.37 (7.35-7.45) 05/28/17 08:50 pCO2 47.0 mmHg (35.0-45.0) H 05/28/17 08:50 pO2 83.0 mmHg (80.0-100.0) 05/28/17 08:50 HCO3 26.0 mEq/L (20.0-26.0) 05/28/17 08:50 Base Excess 1.4 mEq/L (-3.0-3.0) 05/28/17 08:50 O2 Saturation 96.0 % (92.0-100.0) 05/28/17 08:50 Feliciano Test YES 05/28/17 08:50 Vent Rate 12 05/28/17 08:50 Inspired O2 40 05/28/17 08:50 Tidal Volume 500 05/28/17 08:50 PEEP 0 05/28/17 08:50 Pressure (ins/psv/peep) 15 05/28/17 08:50 Critical Value E.MCNEAL 05/28/17 08:50 Sodium 140 mEq/L (136-145) 05/29/17 05:05 Potassium 3.6 mEq/L (3.5-5.1) 05/29/17 05:05 Chloride 104 mEq/L (98-107) 05/29/17 05:05 Carbon Dioxide 28.5 mEq/L (21.0-31.0) 05/29/17 05:05 Anion Gap 11.1 (7.0-16.0) 05/29/17 05:05 BUN 59 mg/dL (7-25) H 05/29/17 05:05 Creatinine 2.4 mg/dL (0.7-1.3) H 05/29/17 05:05 Est GFR ( Amer) TNP 05/29/17 05:05 Est GFR (Non-Af Amer) TNP 05/29/17 05:05 BUN/Creatinine Ratio 24.6 05/29/17 05:05 Glucose 138 mg/dL (70-105) H 05/29/17 05:05 POC Glucose 183 MG/DL (70 - 105) H 05/29/17 17:26 Hemoglobin A1c % 6.1 % (4.0-6.0) H 05/15/17 06:30 Plasma/Ser Osmolality 301 mOsmol/kg (280-301) 05/14/17 18:20 Whole Bld Lactic Acid 1.58 mmol/L (0.60-1.99) 05/13/17 17:42 Uric Acid 7.7 mg/dL (4.4-7.6) H 05/15/17 06:30 Calcium 9.0 mg/dL (8.6-10.3) 05/29/17 05:05 Phosphorus 4.3 mg/dL (2.5-5.0) 05/29/17 05:05 Magnesium 1.9 mg/dL (1.9-2.7) 05/29/17 05:05 Total Bilirubin 1.8 mg/dL (0.3-1.0) H 05/29/17 05:05 Direct Bilirubin 0.09 mg/dL (0.0-0.2) 05/19/17 04:50 AST 94 U/L (13-39) H 05/29/17 05:05 ALT 10 U/L (7-52) 05/29/17 05:05 Alkaline Phosphatase 238 U/L (34-104) H 05/29/17 05:05 Ammonia 65 umol/L (16-53) H 05/19/17 04:50 Creatine Kinase 35 U/L (30-223) 05/16/17 23:06 Troponin I 0.02 ng/mL (0.01-0.05) 05/16/17 23:06 B-Natriuretic Peptide 739.0 pg/mL (5.0-100.0) H 05/23/17 04:48 Total Protein 6.0 gm/dL (6.0-8.3) 05/29/17 05:05 Albumin 3.3 gm/dL (4.2-5.5) L 05/29/17 05:05 Globulin 2.7 gm/dL 05/29/17 05:05 Albumin/Globulin Ratio 1.2 (1.0-1.8) 05/29/17 05:05 Prealbumin 9 mg/dL (9-32) 05/24/17 04:49 Triglycerides 47 mg/dL (<150) 05/24/17 04:49 Cholesterol 55 mg/dL (<200) 05/24/17 04:49 TSH 2.74 uIU/ml (0.34-5.60) 05/15/17 06:30 Urine Source CATH 05/13/17 19:50 Urine Color YELLOW 05/13/17 19:50 Urine Clarity CLOUDY (CLEAR) 05/13/17 19:50 Urine pH 6.0 05/13/17 19:50 Ur Specific [place] 1.015 (1.005-1.030) 05/13/17 19:50 Urine Protein 100 mg/dL (NEGATIVE) H 05/13/17 19:50 Urine Glucose (UA) NEGATIVE mg/dL (NEGATIVE) 05/13/17 19:50 Urine Ketones NEGATIVE mg/dL (NEGATIVE) 05/13/17 19:50 Urine Blood LARGE (NEGATIVE) H 05/13/17 19:50 Urine Nitrate NEGATIVE (NEGATIVE) 05/13/17 19:50 Urine Bilirubin NEGATIVE (NEGATIVE) 05/13/17 19:50 Urine Urobilinogen 0.2 E.U./dL (0.2 - 1.0) 05/13/17 19:50 Ur Leukocyte Esterase LARGE (NEGATIVE) H 05/13/17 19:50 Urine RBC 50-100 /hpf (0-5) H 05/13/17 19:50 Urine WBC >100 /hpf (0-5) H 05/13/17 19:50 Ur Epithelial Cells NONE SEEN /lpf (FEW) 05/13/17 19:50 Urine Bacteria NONE SEEN /hpf (NONE SEEN) 05/13/17 19:50 Ur Random Sodium 30 mmol/L 05/14/17 18:00 Urine Creatinine 36.4 mg/dl (Not Estab.) 05/14/17 18:00 Urine Microalbumin 363.5 ug/mL (Not Estab.) 05/14/17 18:00 Microalb/Creat Ratio 998.6 mg/g creat (0.0-30.0) H 05/14/17 18:00 Stool Occult Blood NEGATIVE (NEGATIVE) 05/25/17 17:49 Random Vancomycin 19.1 ug/mL (5.0-40.0) 05/19/17 04:50 Hepatitis A IgM Ab Negative (Negative) 05/21/17 04:46 Hep Bs Antigen Negative (Negative) 05/21/17 04:46 Hep B Core IgM Ab Negative (Negative) 05/21/17 04:46 Hepatitis C Antibody 0.1 s/co ratio (0.0-0.9) 05/21/17 04:46 Blood Type B POSITIVE 05/21/17 10:19 Antibody Screen NEGATIVE 05/21/17 10:19 Crossmatch See Detail 05/21/17 10:19 - Physical Exam Vitals and I&O: Vital Signs Temp 98.2 F 05/29/17 20:00 Pulse 70 05/29/17 21:15 Resp 12 05/29/17 20:00 BP 174/91 05/29/17 21:04 Pulse Ox 100 05/29/17 21:15 Intake & Output 05/29/17 05/29/17 05/30/17 06:59 18:59 06:59 Intake Total 150 1876 100 Output Total 350 Balance 150 1526 100 Weight (lbs) 88.451 kg 71.713 kg Intake: Intake, IV Amount 150 1056 100 Fluconazole 100mg/50mL 50 100 mg In 50 ml @ 50 mls/ hr IV Q24HR YESSICA Rx#: [id number] Multivitamin Inj 10 ml In 956 Dextrose 70% 250 ml In Amino Acids 10% 500 ml In Intralipids 20% 200 ml @ 40 mls/hr IV .Q24H YESSICA Rx#:[id number] Tigecycline 50 mg In 100 100 100 Sodium Chloride 0.9% 100 ml @ 100 mls/hr IV Q12H YESSICA Rx#:[id number] Oral 0 Tube Feeding 0 TPN/PPN 520 Blood Product 0 Lipid 0 Albumin 0 Other 300 Output: Gastric Drainage 0 Urine 350 Stool 0 Urine/Stool Mix 0 Emesis 0 Hemodialysis 0 Other 0 Other: # Voids 2 # Bowel Movements 2 Stool Characteristics Liquid Brown Active Medications: Current Medications Acetaminophen (Tylenol) 650 mg PO Q4HR PRN PRN Reason: Pain Or Fever above 101 Stop: 07/14/17 15:15 Last Admin: 05/23/17 15:07 Dose: 650 mg Albuterol/Ipratropium (Duoneb Neb) 3 ml HHN Q4HRT [facility] Stop: 07/19/17 14:59 Last Admin: 05/29/17 19:09 Dose: 3 ml Atorvastatin Calcium (Lipitor) 10 mg GT HS YESSICA PRN Reason: Protocol Stop: 07/14/17 20:59 Last Admin: 05/29/17 21:05 Dose: 10 mg Budesonide (Pulmicort) 1 mg HHN BIDRT [facility] Stop: 07/19/17 18:59 Last Admin: 05/29/17 19:09 Dose: 1 mg Carbidopa/Levodopa (Sinemet 25mg-100 Mg) 1 tab PO TID [facility] Stop: 07/14/17 08:59 Last Admin: 05/29/17 21:05 Dose: 1 tab Chlorhexidine Gluconate (Peridex) 15 ml MM 0800,1999 [facility] Stop: 07/23/17 19:59 Last Admin: 05/29/17 20:07 Dose: 15 ml Clonidine HCl (Catapres) 0.1 mg PO Q6HR PRN PRN Reason: BP MAINTENANCE (PER PROTOCOL) Stop: 07/28/17 13:31 Last Admin: 05/29/17 21:04 Dose: 0.1 mg Dextrose (D50w) 50 ml IVP PRN PRN; Protocol PRN Reason: HYPOGLYCEMIA Stop: 07/20/17 00:54 Last Admin: 05/22/17 23:34 Dose: 50 ml Diltiazem HCl (Cardizem) 10 mg IVP Q6HR PRN PRN Reason: HR >130 Stop: 07/22/17 17:09 Last Admin: 05/24/17 04:21 Dose: 10 mg Furosemide (Lasix) 40 mg IVP DAILY [facility] Stop: 07/18/17 08:59 Last Admin: 05/29/17 08:09 Dose: 40 mg Heparin Sodium (Porcine) (Heparin) 5,000 units SUBQ Q8HR YESSICA Stop: 07/22/17 20:59 Last Admin: 05/29/17 21:06 Dose: 5,000 units Norepinephrine Bitartrate 8 mg (/ Dextrose) 258 mls @ 0 mls/hr IV TITR PRN; Protocol; Titrate PRN Reason: BP MAINTENANCE (PER PROTOCOL) Stop: 07/19/17 12:29 Last Admin: 05/21/17 01:06 Dose: 10 mcg/min, 19.35 mls/hr Phenylephrine HCl 10 mg/ (Sodium Chloride) 250 mls @ 0 mls/hr IV TITR YESSICA; Per Protocol PRN Reason: Protocol Stop: 07/19/17 12:59 Tigecycline 50 mg/ Sodium (Chloride) 100 mls @ 100 mls/hr IV Q12H [facility] Stop: 07/21/17 18:59 Last Infusion: 05/29/17 19:10 Dose: Infused Multivitamins/Minerals 10 ml/Dextrose/ Amino Acids/Electrolytes/ Fat Emulsion Intravenous 960 mls @ 40 mls/hr IV .Q24H [facility] Stop: 07/26/17 15:59 Last Admin: 05/29/17 16:55 Dose: 40 mls/hr Albumin Human (Albuminar 25%) 25 gm in 100 mls @ 50 mls/hr IV X1 ONE Stop: 05/30/17 13:52 Insulin Aspart (Novolog Insulin Sliding Scale) 0 units SUBQ Q6HR YESSICA PRN Reason: Protocol Stop: 07/14/17 00:00 Last Admin: 05/29/17 17:27 Dose: Not Given Isosorbide Dinitrate (Isordil) 20 mg GT TID [facility] Stop: 07/28/17 13:33 Last Admin: 05/29/17 21:04 Dose: 20 mg Lactobacillus Rhamnosus (Culturelle) 1 each PO DAILY [facility] Stop: 07/17/17 08:59 Last Admin: 05/29/17 08:10 Dose: 1 each Levetiracetam (Keppra) 250 mg NG BID [facility] Stop: 07/14/17 08:59 Last Admin: 05/29/17 17:15 Dose: 250 mg Metoclopramide HCl (Reglan) 5 mg IVP TID [facility] Stop: 07/20/17 20:59 Last Admin: 05/29/17 21:06 Dose: 5 mg Metoprolol Tartrate (Lopressor) 50 mg GT Q8H YESSICA Stop: 07/18/17 08:59 Last Admin: 05/29/17 17:17 Dose: 50 mg Miscellaneous (Vte Chemical Prophylaxis Screen/ Admission) 1 ea [facility] PRN PRN PRN Reason: PROTOCOL Stop: 07/14/17 09:25 Miscellaneous (Clinical Monitoring) 1 ea MC DAILY PRN PRN Reason: RENAL Stop: 07/15/17 12:32 Miscellaneous (Probiotic Screen) 1 ea MC PRN PRN PRN Reason: PROTOCOL Stop: 07/16/17 09:33 Miscellaneous (Tpn Per Pharmacy) 1 ea [facility] PRN PRN PRN Reason: PROTOCOL Stop: 07/24/17 15:59 Pantoprazole Sodium (Protonix) 40 mg GT DAILY [facility] Stop: 07/14/17 08:59 Last Admin: 05/29/17 08:10 Dose: 40 mg General: No acute distress, no Alert Cardiovascular: Other (afib with fluctuating heart rate) Lungs: Other (occasional rhonchi) Abdomen: Soft Extremities: no Edema Neurological: Sensation intact, Other (lethargic) Skin: no Rash Psych/Mental Status: Mood NL - Procedures Procedures: Procedures Procedure Code Date INSERT EMERGENCY AIRWAY 77228 05/13/17 INSERT TUNNELED CV CATH 96033 05/13/17 INSERTION OF ENDOTRACHEAL AIRWAY INTO TRACHEA, VIA OPENING 4DX37AM 05/13/17 INSERTION OF INFUSION DEV INTO R FEMOR VEIN, PERC APPROACH [id number] 05/13/17 RESPIRATORY VENTILATION, GREATER THAN 96 CONSECUTIVE HOURS [id number] 05/13/17 VENT MGMT INPAT INIT DAY 64832 05/13/17 Assessment/Plan - Problem List Patient Problems: All Active Problems COUGH AND CONGESTION (Acute) - Assessment Assessment: Current Active Problems Problem Status Onset COUGH AND CONGESTION Acute Acute respiratory failure vent dependant ( failed weaning trial) Renal failure improving on HD MDRO Pneumonia Afib RVR UTI CAD 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 HTN renal disease Seizure disorder - Plan Plan: Awaiting LTAC transfer Heparin sub Q Cardizem iv prn Metoprolol Tygacil per ID rec HD per nephrology rec Continue vent support PPN started for nutritional support Off vasopressor Feeding on hold due to tolerance issue Daughter was updated on pt's condition and plan of care Nutritional Asmnt/Malnutr-PDOC - Dietary Evaluation Malnutrition Findings (Please click <Entered> for more info): Nutritional Asmnt/Malnutrition Start: 05/15/17 13: 56 Text: Status: Complete Freq: Document 05/15/17 13:56 GSTHALIA (Rec: 05/15/17 14:18 GSTHALIA [email or web address]) Nutritional Asmnt/Malnutrition Patient General Information Nutritional Screening High Risk Screening Diagnosis PNA, NICK, icnreasing renal failure, CVA, CHF, DM Pertinent Medical Hx/Surgical Hx CVA, dementia, afib, CAD, HTN, dyslipidemia, epilepsy, GERD, aspiration PNA, DM, CKD, dehydration, C. diff, anemia D Subjective Information 86 year old male from SNF. Pt greeted RD. Pt is overall thin , moderate to severe wasting to chest, clavicles, extremities. Observed Glytrol running at 60ml/hr x20hrs during visit. Unable to obtain CBW due to bedscale not calibrated. Discussed with YVETTE Farooq regarding tube feeding recommendations. Current Diet Order/ Nutrition Support Glytrol at 60ml/hr x 20hrs, providing 1200kcal 54g protein Pertinent Medications Lipitor, Novolog, Levemir, Cephulac, Morphine, Protonix, Nacl 0.9% Pertinent Labs 05/13: potassium 5.3H, BUN 80H, creatinine 2.4H, glucose 103 05/15: potassium WNL, BUN 70H, creatinine 2.4H, glucose 239H, A1c 6.1H, phosphorus 5.4H Nutritional Hx/Data Height 1.68 m Height (Calculated Centimeters) 167.6 Current Weight (lbs) 65.771 kg Weight (Calculated Kilograms) 65.8 Weight (Calculated Grams) 48330.9 [place] Body Weight 142 Weight Status Approriate GI Symptoms Difficult in: Swallowing Cultural/Ethnic/Buddhist Belief [facility]: Glucerna 1.2 at 85ml/hr x 20hrs, providing 2040kcal, promote weight gain. Skin Integrity/Comment: Gee 12. Skin intact. Estimated Nutritional Goals Calories/Kcals/Kg CBW 145lb/65.9kg Kcals Calculated 1976-2307kcal (30-35kcal/kg) Protein Calculated 46-92g (0.7-1.4g/kg, renal vs moderate to severe wasting) Fluid: ml Per MD (renal) Nutritional Problem 2. Problem Problem Impaired nutrient utilization related to Etiology NICK, hx CKD aeb Signs/Symptoms: "increasing renal failure," potaasum 5.3H on adm, BUN 70H, pool manager 2.4H, phosphorus 5.4H 1. Problem Problem Inadequate intake from enteral nutrition infusion related to Etiology estimated nutritional needs aeb Signs/Symptoms: providing to meet 61% lower end kcal needs Intervention/Recommendation Comments 1. Recommend Novasource Renal at 50ml/hr x 20hrs, providing 2000kcal and 91g protein. Current order Glytrol at 60ml/ hr x 20hrs is only providing 1200kcal, pt recieves 2040kcal at [facility]. Expected Outcomes/Goals Expected Outcomes/Goals 1. Pt to meet at least 100% of estimated nutritional needs on tube feeding with tolerance .
[2017-05-30] MEDS: Albuterol/Ipratropium Neb 3 ML AERS HHN SCH ×6 (02:22→23:14)
[2017-05-30 05:01] LABS: % BASOPHILS 0.1 % (0.0-2.0); % EOSINOPHILS 1.1 % (0.0-5.0); % MONOCYTES 8.3 % (2.0-10.0); % NEUTROPHILS 79.5 % (40.0-80.0); HEMATOCRIT 25.2 % (39.0-49.0); HEMOGLOBIN 8.5 gm/dL (12.6-17.4); MEAN CELL VOLUME 83.9 fl (80-99); MEAN CORPUSCULAR HEMOGLOBIN 28.3 pg (27.0-31.0); MEAN CORPUSCULAR HGB CONC 33.7 pg (28.0-36.0); MEAN PLATELET VOLUME 8.5 fl; NEUTROPHILE ABSOLUTE 7.2 Th/cmm (1.8-8.0); PLATELET COUNT 199 Th/cmm (150-400); RED CELL DISTRIBUTION WIDTH 16.2 % (11.5-20.0)
[2017-05-30 05:19] LABS: BUN - UREA NITROGEN 77 mg/dL (7-25); BUN/CREATININE RATIO 25.7; CALCIUM SERUM 8.9 mg/dL (8.6-10.3); CARBON DIOXIDE 26.7 mEq/L (21.0-31.0); CHLORIDE 103 mEq/L (98-107); GLUCOSE 219 mg/dL (70-105); PHOSPHOROUS 5.2 mg/dL (2.5-5.0); POTASSIUM SERUM 3.7 mEq/L (3.5-5.1); SODIUM SERUM 138 mEq/L (136-145)
[2017-05-30] MEDS: INSULIN ASPART SLIDING SCALE 100 UNITS/ML UNIT SUBQ SCH ×2 (06:06→12:05)
[2017-05-30] MEDS: Budesonide 0.5 Mg/2 mL Ud HHN SCH ×2 (06:30→19:02)
[2017-05-30] MEDS: Chlorhexidine Gluconate 0.12% 15mL Mouthwash MM SCH ×2 (07:45→21:04)
[2017-05-30] MEDS: Pantoprazole 40 mg/Packet GT SCH (09:06)
[2017-05-30] MEDS: Lactobacillus Rhamnosus 10 Billion CFU Capsule PO SCH (09:06)
[2017-05-30] MEDS: Metoclopramide 5 mg/mL 2mL Vial IVP SCH ×3 (09:07→21:05)
[2017-05-30] MEDS: Levetiracetam 500 mg/5mL 5mL UDC NG SCH ×2 (09:08→17:28)
[2017-05-30 11:32] LABS: ABG SOURCE Arterial; ALLEN TEST YES; BE(B) 3.6 mEq/L (-3.0-3.0); FIO2 40; HCO3 27.7 mEq/L (20.0-26.0); MECH RATE 12; MECH VT 500; PS 15
[2017-05-30] MEDS ORDERED: Albumin 25% 25gm/100mL 25 GM/100 ML BTL IV ONE ×2 (11:53)
--- NOTE | 2017-05-30 12:14 | Diagnostic Imaging Report ---
CHEST X-RAY: AP view INDICATION: Shortness of breath, pneumonia COMPARISON: 05/29/2017 FINDINGS: ET tube is seen with tip 2 cm above the matias. Right-sided dialysis catheter stable. Findings of CHF are seen by pleural effusions and infiltrates. Right lower lung zone consolidative changes are noted. Mild cardiomegaly is noted. IMPRESSION: Persistent CHF bilateral infiltrates and effusions.
--- NOTE | 2017-05-30 14:25 | General Progress Note ---
Subjective - Review of Systems Service Date: 05/30/17 Subjective: sleeping but arousable , on vent, nonverbal Objective - Results Result Diagrams: 05/30/17 04:47 05/30/17 04:47 Recent Labs: Laboratory Last Values WBC 9.0 Th/cmm (4.8-10.8) 05/30/17 04:47 RBC 3.00 Mil/cmm (3.80-5.80) L 05/30/17 04:47 Hgb 8.5 gm/dL (12.6-17.4) L 05/30/17 04:47 Hct 25.2 % (39.0-49.0) L 05/30/17 04:47 MCV 83.9 fl (80-99) 05/30/17 04:47 MCH 28.3 pg (27.0-31.0) 05/30/17 04:47 MCHC Differential 33.7 pg (28.0-36.0) 05/30/17 04:47 RDW 16.2 % (11.5-20.0) 05/30/17 04:47 Plt Count 199 Th/cmm (150-400) 05/30/17 04:47 MPV 8.5 fl 05/30/17 04:47 Neutrophils % 79.5 % (40.0-80.0) 05/30/17 04:47 Band Neutrophils % 2 % (0-10) 05/26/17 04:40 Lymphocytes % 11.0 % (20.0-50.0) L 05/30/17 04:47 Monocytes % 8.3 % (2.0-10.0) 05/30/17 04:47 Eosinophils % 1.1 % (0.0-5.0) 05/30/17 04:47 Basophils % 0.1 % (0.0-2.0) 05/30/17 04:47 Neutrophils (Manual) 89 % (40-80) H 05/26/17 04:40 Lymphocytes 5 % (20-50) L 05/26/17 04:40 Monocytes 4 % (2-10) 05/26/17 04:40 Eosinophils 0 % (0-5) 05/24/17 04:49 Basophils 0 % (0-3) 05/24/17 04:49 Metamyelocytes 1 % (0-0) H 05/22/17 04:44 Toxic Granulation 1+ 05/23/17 04:48 Platelet Estimate ADEQUATE (NORMAL) 05/26/17 04:40 Platelet Morphology NORMAL (NORMAL) 05/26/17 04:40 Anisocytosis 1+ 05/22/17 04:44 RBC Morph Micro Appear NORMAL (NORMAL) 05/26/17 04:40 Eos Smear Source URINE 05/14/17 18:00 Eos Smear Total Cells FEW EOSINOPHILS SEEN (NONE SEEN) 05/14/17 18:00 PT 11.9 SECONDS (9.5-11.5) H 05/13/17 17:42 INR 1.13 (0.5-1.4) 05/13/17 17:42 PTT (Actin FS) 30.5 SECONDS (26.0-38.0) 05/15/17 12:30 Specimen Source Arterial 05/30/17 11:08 Sample Site Left Radial 05/30/17 11:08 pH 7.40 (7.35-7.45) 05/30/17 11:08 pCO2 47.0 mmHg (35.0-45.0) H 05/30/17 11:08 pO2 95.0 mmHg (80.0-100.0) 05/30/17 11:08 HCO3 27.7 mEq/L (20.0-26.0) H 05/30/17 11:08 Base Excess 3.6 mEq/L (-3.0-3.0) H 05/30/17 11:08 O2 Saturation 97.0 % (92.0-100.0) 05/30/17 11:08 Feliciano Test YES 05/30/17 11:08 Vent Rate 12 05/30/17 11:08 Inspired O2 40 05/30/17 11:08 Tidal Volume 500 05/30/17 11:08 PEEP 0 05/30/17 11:08 Pressure (ins/psv/peep) 15 05/30/17 11:08 Critical Value E.MCNEAL 05/30/17 11:08 Sodium 138 mEq/L (136-145) 05/30/17 04:47 Potassium 3.7 mEq/L (3.5-5.1) 05/30/17 04:47 Chloride 103 mEq/L (98-107) 05/30/17 04:47 Carbon Dioxide 26.7 mEq/L (21.0-31.0) 05/30/17 04:47 Anion Gap 12.0 (7.0-16.0) 05/30/17 04:47 BUN 77 mg/dL (7-25) H 05/30/17 04:47 Creatinine 3.0 mg/dL (0.7-1.3) H 05/30/17 04:47 Est GFR ( Amer) TNP 05/30/17 04:47 Est GFR (Non-Af Amer) TNP 05/30/17 04:47 BUN/Creatinine Ratio 25.7 05/30/17 04:47 Glucose 219 mg/dL (70-105) H 05/30/17 04:47 POC Glucose 167 MG/DL (70 - 105) H 05/30/17 11:47 Hemoglobin A1c % 6.1 % (4.0-6.0) H 05/15/17 06:30 Plasma/Ser Osmolality 301 mOsmol/kg (280-301) 05/14/17 18:20 Whole Bld Lactic Acid 1.58 mmol/L (0.60-1.99) 05/13/17 17:42 Uric Acid 7.7 mg/dL (4.4-7.6) H 05/15/17 06:30 Calcium 8.9 mg/dL (8.6-10.3) 05/30/17 04:47 Phosphorus 5.2 mg/dL (2.5-5.0) H 05/30/17 04:47 Magnesium 2.0 mg/dL (1.9-2.7) 05/30/17 04:47 Total Bilirubin 1.8 mg/dL (0.3-1.0) H 05/29/17 05:05 Direct Bilirubin 0.09 mg/dL (0.0-0.2) 05/19/17 04:50 AST 94 U/L (13-39) H 05/29/17 05:05 ALT 10 U/L (7-52) 05/29/17 05:05 Alkaline Phosphatase 238 U/L (34-104) H 05/29/17 05:05 Ammonia 65 umol/L (16-53) H 05/19/17 04:50 Creatine Kinase 35 U/L (30-223) 05/16/17 23:06 Troponin I 0.02 ng/mL (0.01-0.05) 05/16/17 23:06 B-Natriuretic Peptide 739.0 pg/mL (5.0-100.0) H 05/23/17 04:48 Total Protein 6.0 gm/dL (6.0-8.3) 05/29/17 05:05 Albumin 3.3 gm/dL (4.2-5.5) L 05/29/17 05:05 Globulin 2.7 gm/dL 05/29/17 05:05 Albumin/Globulin Ratio 1.2 (1.0-1.8) 05/29/17 05:05 Prealbumin 9 mg/dL (9-32) 05/24/17 04:49 Triglycerides 53 mg/dL (<150) 05/30/17 04:47 Cholesterol 42 mg/dL (<200) 05/30/17 04:47 TSH 2.74 uIU/ml (0.34-5.60) 05/15/17 06:30 Urine Source CATH 05/13/17 19:50 Urine Color YELLOW 05/13/17 19:50 Urine Clarity CLOUDY (CLEAR) 05/13/17 19:50 Urine pH 6.0 05/13/17 19:50 Ur Specific [place] 1.015 (1.005-1.030) 05/13/17 19:50 Urine Protein 100 mg/dL (NEGATIVE) H 05/13/17 19:50 Urine Glucose (UA) NEGATIVE mg/dL (NEGATIVE) 05/13/17 19:50 Urine Ketones NEGATIVE mg/dL (NEGATIVE) 05/13/17 19:50 Urine Blood LARGE (NEGATIVE) H 05/13/17 19:50 Urine Nitrate NEGATIVE (NEGATIVE) 05/13/17 19:50 Urine Bilirubin NEGATIVE (NEGATIVE) 05/13/17 19:50 Urine Urobilinogen 0.2 E.U./dL (0.2 - 1.0) 05/13/17 19:50 Ur Leukocyte Esterase LARGE (NEGATIVE) H 05/13/17 19:50 Urine RBC 50-100 /hpf (0-5) H 05/13/17 19:50 Urine WBC >100 /hpf (0-5) H 05/13/17 19:50 Ur Epithelial Cells NONE SEEN /lpf (FEW) 05/13/17 19:50 Urine Bacteria NONE SEEN /hpf (NONE SEEN) 05/13/17 19:50 Ur Random Sodium 30 mmol/L 05/14/17 18:00 Urine Creatinine 36.4 mg/dl (Not Estab.) 05/14/17 18:00 Urine Microalbumin 363.5 ug/mL (Not Estab.) 05/14/17 18:00 Microalb/Creat Ratio 998.6 mg/g creat (0.0-30.0) H 05/14/17 18:00 Stool Occult Blood NEGATIVE (NEGATIVE) 05/25/17 17:49 Random Vancomycin 19.1 ug/mL (5.0-40.0) 05/19/17 04:50 Hepatitis A IgM Ab Negative (Negative) 05/21/17 04:46 Hep Bs Antigen Negative (Negative) 05/21/17 04:46 Hep B Core IgM Ab Negative (Negative) 05/21/17 04:46 Hepatitis C Antibody 0.1 s/co ratio (0.0-0.9) 05/21/17 04:46 Blood Type B POSITIVE 05/21/17 10:19 Antibody Screen NEGATIVE 05/21/17 10:19 Crossmatch See Detail 05/21/17 10:19 - Physical Exam Vitals and I&O: Vital Signs Temp 98.7 F 05/30/17 12:00 Pulse 75 05/30/17 13:53 Resp 12 05/30/17 12:00 BP 169/77 05/30/17 13:52 Pulse Ox 100 05/30/17 13:53 Intake & Output 05/29/17 05/30/17 05/30/17 18:59 06:59 18:59 Intake Total 1876 680 100 Output Total 350 300 Balance 1526 380 100 Weight (lbs) 71.713 kg 70.806 kg Intake: Intake, IV Amount 1056 100 100 Multivitamin Inj 10 ml In 956 Dextrose 70% 250 ml In Amino Acids 10% 500 ml In Intralipids 20% 200 ml @ 40 mls/hr IV .Q24H YESSICA Rx#:[id number] Tigecycline 50 mg In 100 100 100 Sodium Chloride 0.9% 100 ml @ 100 mls/hr IV Q12H YESSICA Rx#:[id number] Oral 0 0 Tube Feeding 0 TPN/PPN 520 480 Blood Product 0 Lipid 0 Albumin 0 Other 300 100 Output: Gastric Drainage 0 Urine 350 300 Stool 0 Urine/Stool Mix 0 Emesis 0 Hemodialysis 0 Other 0 Other: # Voids 2 # Bowel Movements 2 1 Stool Characteristics Liquid Liquid Brown Brown Active Medications: Current Medications Acetaminophen (Tylenol) 650 mg PO Q4HR PRN PRN Reason: Pain Or Fever above 101 Stop: 07/14/17 15:15 Last Admin: 05/23/17 15:07 Dose: 650 mg Albuterol/Ipratropium (Duoneb Neb) 3 ml HHN Q4HRT [facility] Stop: 07/19/17 14:59 Last Admin: 05/30/17 13:53 Dose: 3 ml Atorvastatin Calcium (Lipitor) 10 mg GT HS YESSICA PRN Reason: Protocol Stop: 07/14/17 20:59 Last Admin: 05/29/17 21:05 Dose: 10 mg Budesonide (Pulmicort) 1 mg HHN BIDRT [facility] Stop: 07/19/17 18:59 Last Admin: 05/30/17 06:30 Dose: 1 mg Carbidopa/Levodopa (Sinemet 25mg-100 Mg) 1 tab PO TID [facility] Stop: 07/14/17 08:59 Last Admin: 05/30/17 13:52 Dose: 1 tab Chlorhexidine Gluconate (Peridex) 15 ml MM 0800,2000 [facility] Stop: 07/23/17 19:59 Last Admin: 05/30/17 07:45 Dose: 15 ml Clonidine HCl (Catapres) 0.1 mg PO Q6HR PRN PRN Reason: BP MAINTENANCE (PER PROTOCOL) Stop: 07/28/17 13:31 Last Admin: 05/29/17 21:04 Dose: 0.1 mg Dextrose (D50w) 50 ml IVP PRN PRN; Protocol PRN Reason: HYPOGLYCEMIA Stop: 07/20/17 00:54 Last Admin: 05/22/17 23:34 Dose: 50 ml Diltiazem HCl (Cardizem) 10 mg IVP Q6HR PRN PRN Reason: HR >130 Stop: 07/22/17 17:09 Last Admin: 05/24/17 04:21 Dose: 10 mg Furosemide (Lasix) 40 mg IVP DAILY [facility] Stop: 07/18/17 08:59 Last Admin: 05/30/17 09:32 Dose: Not Given Heparin Sodium (Porcine) (Heparin) 5,000 units SUBQ Q8HR [facility] Stop: 07/22/17 20:59 Last Admin: 05/30/17 13:51 Dose: 5,000 units Norepinephrine Bitartrate 8 mg (/ Dextrose) 258 mls @ 0 mls/hr IV TITR PRN; Protocol; Titrate PRN Reason: BP MAINTENANCE (PER PROTOCOL) Stop: 07/19/17 12:29 Last Admin: 05/21/17 01:06 Dose: 10 mcg/min, 19.35 mls/hr Phenylephrine HCl 10 mg/ (Sodium Chloride) 250 mls @ 0 mls/hr IV TITR YESSICA; Per Protocol PRN Reason: Protocol Stop: 07/19/17 12:59 Tigecycline 50 mg/ Sodium (Chloride) 100 mls @ 100 mls/hr IV Q12H [facility] Stop: 07/21/17 18:59 Last Infusion: 05/30/17 09:00 Dose: Infused Multivitamins/Minerals 10 ml/Dextrose/ Amino Acids/Electrolytes/ Fat Emulsion Intravenous 960 mls @ 40 mls/hr IV .Q24H [facility] Stop: 07/26/17 15:59 Last Admin: 05/29/17 16:55 Dose: 40 mls/hr Insulin Aspart (Novolog Insulin Sliding Scale) 0 units SUBQ Q6HR YESSICA PRN Reason: Protocol Stop: 07/14/17 00:00 Last Admin: 05/30/17 12:05 Dose: Not Given Isosorbide Dinitrate (Isordil) 20 mg GT TID [facility] Stop: 07/28/17 13:33 Last Admin: 05/30/17 13:52 Dose: 20 mg Lactobacillus Rhamnosus (Culturelle) 1 each PO DAILY [facility] Stop: 07/17/17 08:59 Last Admin: 05/30/17 09:06 Dose: 1 each Levetiracetam (Keppra) 250 mg NG BID [facility] Stop: 07/14/17 08:59 Last Admin: 05/30/17 09:08 Dose: 250 mg Metoclopramide HCl (Reglan) 5 mg IVP TID [facility] Stop: 07/20/17 20:59 Last Admin: 05/30/17 09:07 Dose: 5 mg Metoprolol Tartrate (Lopressor) 50 mg GT Q8H [facility] Stop: 07/18/17 08:59 Last Admin: 05/30/17 09:33 Dose: Not Given Miscellaneous (Vte Chemical Prophylaxis Screen/ Admission) 1 ea MC PRN PRN PRN Reason: PROTOCOL Stop: 07/14/17 09:25 Miscellaneous (Clinical Monitoring) 1 ea MC DAILY PRN PRN Reason: RENAL Stop: 07/15/17 12:32 Miscellaneous (Probiotic Screen) 1 ea MC PRN PRN PRN Reason: PROTOCOL Stop: 07/16/17 09:33 Miscellaneous (Tpn Per Pharmacy) 1 MC PRN PRN PRN Reason: PROTOCOL Stop: 07/24/17 15:59 Pantoprazole Sodium (Protonix) 40 mg GT DAILY YESSICA Stop: 07/14/17 08:59 Last Admin: 05/30/17 09:06 Dose: 40 mg General: No acute distress, no Alert HEENT: Atraumatic, Mucous membr. moist/pink Neck: Supple, +2 carotid pulse wo bruit Cardiovascular: Regular rate, Normal S1, Normal S2, Other (afib with fluctuating heart rate) Lungs: Other (occasional rhonchi) Abdomen: Soft Extremities: no Edema Neurological: Sensation intact, Other (lethargic) Skin: no Rash Psych/Mental Status: Mood NL - Procedures Procedures: Procedures Procedure Code Date INSERT EMERGENCY AIRWAY 64163 05/13/17 INSERT TUNNELED CV CATH 00807 05/13/17 INSERTION OF ENDOTRACHEAL AIRWAY INTO TRACHEA, VIA OPENING [id number] 05/13/17 INSERTION OF INFUSION DEV INTO R FEMOR VEIN, PERC APPROACH [id number] 05/13/17 RESPIRATORY VENTILATION, GREATER THAN 96 CONSECUTIVE HOURS [id number] 05/13/17 VENT MGMT INPAT INIT DAY 27970 05/13/17 Assessment/Plan - Problem List Patient Problems: All Active Problems COUGH AND CONGESTION (Acute) - Assessment Assessment: NICK on CKD, now on dialysis A LOC secondary to metabolic encephalopathy/medications Dehydration Essential hypertension with CKD COPD Chronic atrial fibrillation Status post CVA Aspiration pneumonia/dysphagia status post PEG Type 2 diabetes mellitus with CKD Acute Decompensated CHF Acute Resp Failure on Vent Bradycardia - Plan Plan: Lab - Result Diagrams 05/15/17 06:30 05/15/17 06:30 Current Medications Acetaminophen (Tylenol) 650 mg PO Q4HR PRN PRN Reason: Pain Or Fever above 101 Stop: 07/14/17 15:15 Last Admin: 05/15/17 16:21 Dose: 650 mg Albuterol Sulfate (Albuterol 2.5mg/3ml Neb Ud) 2.5 mg HHN Q6HRT [facility] Stop: 07/14/17 00:59 Last Admin: 05/15/17 16:05 Dose: 2.5 mg Atorvastatin Calcium (Lipitor) 10 mg GT HS YESSICA PRN Reason: Protocol Stop: 07/14/17 20:59 Carbidopa/Levodopa (Sinemet 25mg-100 Mg) 1 tab PO TID [facility] Stop: 07/14/17 08:59 Last Admin: 05/15/17 14:02 Dose: 1 tab Heparin Sodium (Porcine) (Heparin) 5,000 units SUBQ Q8H YESSICA Stop: 07/14/17 14:59 Last Admin: 05/15/17 16:24 Dose: 5,000 units Sodium Chloride (Nacl 0.9%) 1,000 mls @ 60 mls/hr IV .[id number] [facility] Stop: 07/13/17 06:40 Last Admin: 05/14/17 17:16 Dose: 60 mls/hr Azithromycin 250 mg/ Sodium (Chloride) 250 mls @ 250 mls/hr IV Q24HR [facility] Stop: 05/20/17 08:59 Piperacillin Sod/Tazobactam (Sod 3.375 gm/ Sodium Chloride) 50 mls @ 100 mls/ hr IV Q8HR [facility] Stop: 07/14/17 15:14 Last Admin: 05/15/17 15:57 Dose: 100 mls/hr Insulin Aspart (Novolog Insulin Sliding Scale) 0 units SUBQ Q6HR YESSICA PRN Reason: Protocol Stop: 07/14/17 00:00 Last Admin: 05/15/17 17:09 Dose: Not Given Insulin Detemir (Levemir Insulin) 14 units SUBQ DAILY [facility] PRN Reason: Protocol Stop: 07/15/17 08:59 Isosorbide Dinitrate (Isordil) 10 mg GT TID [facility] Stop: 07/14/17 08:59 Last Admin: 05/15/17 14:02 Dose: 10 mg Lactulose (Cephulac) 20 gm PO TID [facility] Stop: 07/14/17 08:59 Last Admin: 05/15/17 14:02 Dose: 20 gm Levetiracetam (Keppra) 250 mg NG BID [facility] Stop: 07/14/17 08:59 Last Admin: 05/15/17 16:23 Dose: 250 mg Metoprolol Tartrate (Lopressor) 37.5 mg GT BID YESSICA Stop: 07/14/17 00:14 Last Admin: 05/15/17 16:22 Dose: 37.5 mg Miscellaneous (Vte Chemical Prophylaxis Screen/ Admission) 1 ea MC PRN PRN PRN Reason: PROTOCOL Stop: 07/14/17 09:25 Morphine Sulfate (Morphine) 2 mg IVP Q3H PRN PRN Reason: PAIN Stop: 07/13/17 19:46 Last Admin: 05/14/17 21:16 Dose: 2 mg Mupirocin (Bactroban Oint) 1 appl TP BID YESSICA Stop: 07/14/17 16:59 Last Admin: 05/15/17 16:24 Dose: 1 appl Pantoprazole Sodium (Protonix) 40 mg GT DAILY YESSICA Stop: 07/14/17 08:59 Last Admin: 05/15/17 08:36 Dose: 40 mg Rifaximin (Xifaxan) 550 mg GT BID YESSICA Stop: 07/14/17 08:59 Last Admin: 05/15/17 16:23 Dose: 550 mg Latest BUN/CR were 77/3 White count down to 9 on Zosyn Chest x-ray still w/ b/l infiltrates, effusions, no significant change Reviewed his meds Follow-up electrolytes currently on PPN @ 40 ml /hr prognosis poor Hgb/Hct down to 8.5/25.2 scheduled for HD today & in am Follow-up electrolytes, CBC and chest x-ray in a.m. urine ouput minimal Lab - Result Diagrams 05/24/17 04:49 05/24/17 04:49 addendum: Poor response to diuretics, w/ worsening CHF, BNP level developed resp failure, required intubation worsening cardio-renal syndrome discussed w/ grandson Pedro, about poor prognosis but still want to proceed w/ dialysis Nutritional Asmnt/Malnutr-PDOC - Dietary Evaluation Malnutrition Findings (Please click <Entered> for more info): Nutritional Asmnt/Malnutrition Start: 05/15/17 13: 56 Text: Status: Complete Freq: Document 05/15/17 13:56 GSUN (Rec: 05/15/17 14:18 GSUN [id number]) Nutritional Asmnt/Malnutrition Patient General Information Nutritional Screening High Risk Screening Diagnosis PNA, NICK, icnreasing renal failure, CVA, CHF, DM Pertinent Medical Hx/Surgical Hx CVA, dementia, afib, CAD, HTN, dyslipidemia, epilepsy, GERD, aspiration PNA, DM, CKD, dehydration, C. diff, anemia D Subjective Information 86 year old male from SNF. Pt greeted RD. Pt is overall thin , moderate to severe wasting to chest, clavicles, extremities. Observed Glytrol running at 60ml/hr x20hrs during visit. Unable to obtain CBW due to bedscale not calibrated. Discussed with YVETTE Farooq regarding tube feeding recommendations. Current Diet Order/ Nutrition Support Glytrol at 60ml/hr x 20hrs, providing 1200kcal 54g protein Pertinent Medications Lipitor, Novolog, Levemir, Cephulac, Morphine, Protonix, Nacl 0.9% Pertinent Labs 05/13: potassium 5.3H, BUN 80H, creatinine 2.4H, glucose 103 05/15: potassium WNL, BUN 70H, creatinine 2.4H, glucose 239H, A1c 6.1H, phosphorus 5.4H Nutritional Hx/Data Height 1.68 m Height (Calculated Centimeters) 167.6 Current Weight (lbs) 65.771 kg Weight (Calculated Kilograms) 65.8 Weight (Calculated Grams) 52923.9 [place] Body Weight 142 Weight Status Approriate GI Symptoms Difficult in: Swallowing Cultural/Ethnic/Nondenominational Belief [facility]: Glucerna 1.2 at 85ml/hr x 20hrs, providing 2040kcal, promote weight gain. Skin Integrity/Comment: Gee 12. Skin intact. Estimated Nutritional Goals Calories/Kcals/Kg CBW 145lb/65.9kg Kcals Calculated 1976-2306kcal (30-35kcal/kg) Protein Calculated 46-92g (0.7-1.4g/kg, renal vs moderate to severe wasting) Fluid: ml Per MD (renal) Nutritional Problem 2. Problem Problem Impaired nutrient utilization related to Etiology NICK, hx CKD aeb Signs/Symptoms: "increasing renal failure," potaasum 5.3H on adm, BUN 70H, bagel maker 2.4H, phosphorus 5.4H 1. Problem Problem Inadequate intake from enteral nutrition infusion related to Etiology estimated nutritional needs aeb Signs/Symptoms: providing to meet 61% lower end kcal needs Intervention/Recommendation Comments 1. Recommend Novasource Renal at 50ml/hr x 20hrs, providing 2000kcal and 91g protein. Current order Glytrol at 60ml/ hr x 20hrs is only providing 1200kcal, pt recieves 2040kcal at [facility]. Expected Outcomes/Goals Expected Outcomes/Goals 1. Pt to meet at least 100% of estimated nutritional needs on tube feeding with tolerance .
[2017-05-30] MEDS: TPN 10%-70% CUSTOM IV SCH (16:07)
[2017-05-30] MEDS: Atorvastatin Calcium 10 MG TAB GT SCH (21:06)
--- NOTE | 2017-05-31 00:16 | Progress Notes ---
DATE: 05/30/2017 PROBLEM LIST: 1.Bilateral pneumonia, MDRO. 2.Persistent respiratory failure. 3.Possibly anoxic encephalopathy. 4.Renal failure, on hemodialysis, was dialyzed today. SYMPTOMS: The patient is awake, looking from side to side, no respiratory distress, etc. PHYSICAL EXAMINATION: VITAL SIGNS: Temperature is 98.7, blood pressure 150/67, saturation 100% on 40% of oxygen, SMV of 12. NECK: Veins not visualized. CHEST: Shows occasional rales with generalized diminished air entry. HEART: Regular. ABDOMEN: Soft, nontender. LABORATORY DATA: White count is ____, hemoglobin 8.5 and ABG shows compensated respiratory acidemia. ASSESSMENT: The patient clinically unchanged, continues to have multisystem failure, status post CPR. PLANS AND SUGGESTIONS: We will go ahead and continue supportive care, discussed with Dr. Montano yesterday, consideration for trach in a few days before or after transferring to [place] ____ and go from there. JOB# [id number]
[2017-05-31] MEDS: INSULIN ASPART SLIDING SCALE 100 UNITS/ML UNIT SUBQ SCH ×5 (00:25→17:31)
[2017-05-31 05:41] LABS: ANION GAP 12.5 (7.0-16.0); BUN - UREA NITROGEN 64 mg/dL (7-25); BUN/CREATININE RATIO 24.6; CARBON DIOXIDE 24.8 mEq/L (21.0-31.0); CHLORIDE 103 mEq/L (98-107); CREATININE - SERUM 2.6 mg/dL (0.7-1.3); GLUCOSE 197 mg/dL (70-105); MAGNESIUM 1.9 mg/dL (1.9-2.7); POTASSIUM SERUM 3.3 mEq/L (3.5-5.1); SODIUM SERUM 137 mEq/L (136-145)
[2017-05-31] MEDS: Albuterol/Ipratropium Neb 3 ML AERS HHN SCH ×5 (08:00→23:16)
[2017-05-31] MEDS: Budesonide 0.5 Mg/2 mL Ud HHN SCH ×2 (08:01→19:10)
--- NOTE | 2017-05-31 09:15 | Diagnostic Imaging Report ---
CHEST X-RAY: AP view INDICATION: CHF COMPARISON: 05/30/2017 FINDINGS: Support devices are stable. Persistent CHF is noted with bilateral effusions and infiltrates. Mild cardiomegaly is noted. IMPRESSION: Persistent CHF with bilateral effusions and infiltrates.
[2017-05-31] MEDS: Levetiracetam 500 mg/5mL 5mL UDC NG SCH ×2 (10:13→16:23)
[2017-05-31] MEDS: Lactobacillus Rhamnosus 10 Billion CFU Capsule PO SCH (10:13)
[2017-05-31] MEDS: Metoclopramide 5 mg/mL 2mL Vial IVP SCH ×3 (10:14→20:48)
[2017-05-31] MEDS: Pantoprazole 40 mg/Packet GT SCH (10:14)
[2017-05-31] MEDS: Chlorhexidine Gluconate 0.12% 15mL Mouthwash MM SCH ×2 (10:15→20:15)
--- NOTE | 2017-05-31 11:26 | Infectious Disease Prog Note ---
Infectious Disease Subjective - Review of Systems Service Date: 05/31/17 Subjective: No new change. No fever. intubated orally, on vent support. Infectious Disease Objective - Results Result Diagrams: 05/30/17 04:47 05/31/17 04:50 Recent Labs: Laboratory Last Values WBC 9.0 Th/cmm (4.8-10.8) 05/30/17 04:47 RBC 3.00 Mil/cmm (3.80-5.80) L 05/30/17 04:47 Hgb 8.5 gm/dL (12.6-17.4) L 05/30/17 04:47 Hct 25.2 % (39.0-49.0) L 05/30/17 04:47 MCV 83.9 fl (80-99) 05/30/17 04:47 MCH 28.3 pg (27.0-31.0) 05/30/17 04:47 MCHC Differential 33.7 pg (28.0-36.0) 05/30/17 04:47 RDW 16.2 % (11.5-20.0) 05/30/17 04:47 Plt Count 199 Th/cmm (150-400) 05/30/17 04:47 MPV 8.5 fl 05/30/17 04:47 Neutrophils % 79.5 % (40.0-80.0) 05/30/17 04:47 Band Neutrophils % 2 % (0-10) 05/26/17 04:40 Lymphocytes % 11.0 % (20.0-50.0) L 05/30/17 04:47 Monocytes % 8.3 % (2.0-10.0) 05/30/17 04:47 Eosinophils % 1.1 % (0.0-5.0) 05/30/17 04:47 Basophils % 0.1 % (0.0-2.0) 05/30/17 04:47 Neutrophils (Manual) 89 % (40-80) H 05/26/17 04:40 Lymphocytes 5 % (20-50) L 05/26/17 04:40 Monocytes 4 % (2-10) 05/26/17 04:40 Eosinophils 0 % (0-5) 05/24/17 04:49 Basophils 0 % (0-3) 05/24/17 04:49 Metamyelocytes 1 % (0-0) H 05/22/17 04:44 Toxic Granulation 1+ 05/23/17 04:48 Platelet Estimate ADEQUATE (NORMAL) 05/26/17 04:40 Platelet Morphology NORMAL (NORMAL) 05/26/17 04:40 Anisocytosis 1+ 05/22/17 04:44 RBC Morph Micro Appear NORMAL (NORMAL) 05/26/17 04:40 Eos Smear Source URINE 05/14/17 18:00 Eos Smear Total Cells FEW EOSINOPHILS SEEN (NONE SEEN) 05/14/17 18:00 PT 11.9 SECONDS (9.5-11.5) H 05/13/17 17:42 INR 1.13 (0.5-1.4) 05/13/17 17:42 PTT (Actin FS) 30.5 SECONDS (26.0-38.0) 05/15/17 12:30 Specimen Source Arterial 05/30/17 11:08 Sample Site Left Radial 05/30/17 11:08 pH 7.40 (7.35-7.45) 05/30/17 11:08 pCO2 47.0 mmHg (35.0-45.0) H 05/30/17 11:08 pO2 95.0 mmHg (80.0-100.0) 05/30/17 11:08 HCO3 27.7 mEq/L (20.0-26.0) H 05/30/17 11:08 Base Excess 3.6 mEq/L (-3.0-3.0) H 05/30/17 11:08 O2 Saturation 97.0 % (92.0-100.0) 05/30/17 11:08 Fel[place]o Test YES 05/30/17 11:08 Vent Rate 12 05/30/17 11:08 Inspired O2 40 05/30/17 11:08 Tidal Volume 500 05/30/17 11:08 PEEP 0 05/30/17 11:08 Pressure (ins/psv/peep) 15 05/30/17 11:08 Critical Value E.MCNEAL 05/30/17 11:08 Sodium 137 mEq/L (136-145) 05/31/17 04:50 Potassium 3.3 mEq/L (3.5-5.1) L 05/31/17 04:50 Chloride 103 mEq/L (98-107) 05/31/17 04:50 Carbon Dioxide 24.8 mEq/L (21.0-31.0) 05/31/17 04:50 Anion Gap 12.5 (7.0-16.0) 05/31/17 04:50 BUN 64 mg/dL (7-25) H 05/31/17 04:50 Creatinine 2.6 mg/dL (0.7-1.3) H 05/31/17 04:50 Est GFR ( Amer) TNP 05/31/17 04:50 Est GFR (Non-Af Amer) TNP 05/31/17 04:50 BUN/Creatinine Ratio 24.6 05/31/17 04:50 Glucose 197 mg/dL (70-105) H 05/31/17 04:50 POC Glucose 183 MG/DL (70 - 105) H 05/31/17 06:18 Hemoglobin A1c % 6.1 % (4.0-6.0) H 05/15/17 06:30 Plasma/Ser Osmolality 301 mOsmol/kg (280-301) 05/14/17 18:20 Whole Bld Lactic Acid 1.58 mmol/L (0.60-1.99) 05/13/17 17:42 Uric Acid 7.7 mg/dL (4.4-7.6) H 05/15/17 06:30 Calcium 9.0 mg/dL (8.6-10.3) 05/31/17 04:50 Phosphorus 4.0 mg/dL (2.5-5.0) 05/31/17 04:50 Magnesium 1.9 mg/dL (1.9-2.7) 05/31/17 04:50 Total Bilirubin 1.8 mg/dL (0.3-1.0) H 05/29/17 05:05 Direct Bilirubin 0.09 mg/dL (0.0-0.2) 05/19/17 04:50 AST 94 U/L (13-39) H 05/29/17 05:05 ALT 10 U/L (7-52) 05/29/17 05:05 Alkaline Phosphatase 238 U/L (34-104) H 05/29/17 05:05 Ammonia 65 umol/L (16-53) H 05/19/17 04:50 Creatine Kinase 35 U/L (30-223) 05/16/17 23:06 Troponin I 0.02 ng/mL (0.01-0.05) 05/16/17 23:06 B-Natriuretic Peptide 739.0 pg/mL (5.0-100.0) H 05/23/17 04:48 Total Protein 6.0 gm/dL (6.0-8.3) 05/29/17 05:05 Albumin 3.3 gm/dL (4.2-5.5) L 05/29/17 05:05 Globulin 2.7 gm/dL 05/29/17 05:05 Albumin/Globulin Ratio 1.2 (1.0-1.8) 05/29/17 05:05 Prealbumin 6 mg/dL (9-32) L 05/30/17 04:47 Triglycerides 53 mg/dL (<150) 05/30/17 04:47 Cholesterol 42 mg/dL (<200) 05/30/17 04:47 TSH 2.74 uIU/ml (0.34-5.60) 05/15/17 06:30 Urine Source CATH 05/13/17 19:50 Urine Color YELLOW 05/13/17 19:50 Urine Clarity CLOUDY (CLEAR) 05/13/17 19:50 Urine pH 6.0 05/13/17 19:50 Ur Specific [place] 1.015 (1.005-1.030) 05/13/17 19:50 Urine Protein 100 mg/dL (NEGATIVE) H 05/13/17 19:50 Urine Glucose (UA) NEGATIVE mg/dL (NEGATIVE) 05/13/17 19:50 Urine Ketones NEGATIVE mg/dL (NEGATIVE) 05/13/17 19:50 Urine Blood LARGE (NEGATIVE) H 05/13/17 19:50 Urine Nitrate NEGATIVE (NEGATIVE) 05/13/17 19:50 Urine Bilirubin NEGATIVE (NEGATIVE) 05/13/17 19:50 Urine Urobilinogen 0.2 E.U./dL (0.2 - 1.0) 05/13/17 19:50 Ur Leukocyte Esterase LARGE (NEGATIVE) H 05/13/17 19:50 Urine RBC 50-100 /hpf (0-5) H 05/13/17 19:50 Urine WBC >100 /hpf (0-5) H 05/13/17 19:50 Ur Epithelial Cells NONE SEEN /lpf (FEW) 05/13/17 19:50 Urine Bacteria NONE SEEN /hpf (NONE SEEN) 05/13/17 19:50 Ur Random Sodium 30 mmol/L 05/14/17 18:00 Urine Creatinine 36.4 mg/dl (Not Estab.) 05/14/17 18:00 Urine Microalbumin 363.5 ug/mL (Not Estab.) 05/14/17 18:00 Microalb/Creat Ratio 998.6 mg/g creat (0.0-30.0) H 05/14/17 18:00 Stool Occult Blood NEGATIVE (NEGATIVE) 05/25/17 17:49 Random Vancomycin 19.1 ug/mL (5.0-40.0) 05/19/17 04:50 Hepatitis A IgM Ab Negative (Negative) 05/21/17 04:46 Hep Bs Antigen Negative (Negative) 05/21/17 04:46 Hep B Core IgM Ab Negative (Negative) 05/21/17 04:46 Hepatitis C Antibody 0.1 s/co ratio (0.0-0.9) 05/21/17 04:46 Blood Type B POSITIVE 05/21/17 10:19 Antibody Screen NEGATIVE 05/21/17 10:19 Crossmatch See Detail 05/21/17 10:19 - Physical Exam Vitals and I&O: Vital Signs Temp 98.7 F 05/31/17 04:00 Pulse 53 05/31/17 10:16 Resp 12 05/31/17 06:00 BP 170/85 05/31/17 10:49 Pulse Ox 100 05/31/17 09:50 Intake & Output 05/30/17 05/31/17 05/31/17 18:59 06:59 18:59 Intake Total 1028 850 100 Output Total 2550 Balance 1028 -1700 100 Weight (lbs) 70.76 kg 68.039 kg Intake: Intake, IV Amount 1028 50 100 Multivitamin Inj 10 ml In 928 Dextrose 70% 250 ml In Amino Acids 10% 500 ml In Intralipids 20% 200 ml @ 40 mls/hr IV .Q24H YESSICA Rx#:[id number] Tigecycline 50 mg In 100 50 100 Sodium Chloride 0.9% 100 ml @ 100 mls/hr IV Q12H YESSICA Rx#:[id number] TPN/PPN 680 Other 120 Output: Urine 350 Hemodialysis 2200 Other: # Bowel Movements 1 1 Active Medications: Current Medications Acetaminophen (Tylenol) 650 mg PO Q4HR PRN PRN Reason: Pain Or Fever above 101 Stop: 07/14/17 15:15 Last Admin: 05/23/17 15:07 Dose: 650 mg Albuterol/Ipratropium (Duoneb Neb) 3 ml HHN Q4HRT [facility] Stop: 07/19/17 14:59 Last Admin: 05/31/17 08:00 Dose: 3 ml Atorvastatin Calcium (Lipitor) 10 mg GT HS YESSICA PRN Reason: Protocol Stop: 07/14/17 20:59 Last Admin: 05/30/17 21:06 Dose: 10 mg Budesonide (Pulmicort) 1 mg HHN BIDRT [facility] Stop: 07/19/17 18:59 Last Admin: 05/31/17 08:01 Dose: 1 mg Carbidopa/Levodopa (Sinemet 25mg-100 Mg) 1 tab PO TID [facility] Stop: 07/14/17 08:59 Last Admin: 05/31/17 10:15 Dose: 1 tab Chlorhexidine Gluconate (Peridex) 15 ml MM 0800,2000 [facility] Stop: 07/23/17 19:59 Last Admin: 05/31/17 10:15 Dose: 15 ml Clonidine HCl (Catapres) 0.1 mg PO Q6HR PRN PRN Reason: BP MAINTENANCE (PER PROTOCOL) Stop: 07/28/17 13:31 Last Admin: 05/29/17 21:04 Dose: 0.1 mg Dextrose (D50w) 50 ml IVP PRN PRN; Protocol PRN Reason: HYPOGLYCEMIA Stop: 07/20/17 00:54 Last Admin: 05/22/17 23:34 Dose: 50 ml Diltiazem HCl (Cardizem) 10 mg IVP Q6HR PRN PRN Reason: HR >130 Stop: 07/22/17 17:09 Last Admin: 05/24/17 04:21 Dose: 10 mg Furosemide (Lasix) 40 mg IVP DAILY [facility] Stop: 07/18/17 08:59 Last Admin: 05/31/17 10:49 Dose: 40 mg Norepinephrine Bitartrate 8 mg (/ Dextrose) 258 mls @ 0 mls/hr IV TITR PRN; Protocol; Titrate PRN Reason: BP MAINTENANCE (PER PROTOCOL) Stop: 07/19/17 12:29 Last Admin: 05/21/17 01:06 Dose: 10 mcg/min, 19.35 mls/hr Phenylephrine HCl 10 mg/ (Sodium Chloride) 250 mls @ 0 mls/hr IV TITR YESSICA; Per Protocol PRN Reason: Protocol Stop: 07/19/17 12:59 Tigecycline 50 mg/ Sodium (Chloride) 100 mls @ 100 mls/hr IV Q12H YESSICA Stop: 07/21/17 18:59 Last Infusion: 05/31/17 07:45 Dose: Infused Multivitamins/Minerals 10 ml/Dextrose/ Amino Acids/Electrolytes/ Fat Emulsion Intravenous 960 mls @ 40 mls/hr IV .Q24H [facility] Stop: 07/26/17 15:59 Last Admin: 05/30/17 16:07 Dose: 40 mls/hr Insulin Aspart (Novolog Insulin Sliding Scale) 0 units SUBQ Q6HR YESSICA PRN Reason: Protocol Stop: 07/14/17 00:00 Last Admin: 05/31/17 06:40 Dose: Not Given Isosorbide Dinitrate (Isordil) 20 mg GT TID [facility] Stop: 07/28/17 13:33 Last Admin: 05/31/17 10:14 Dose: Not Given Lactobacillus Rhamnosus (Culturelle) 1 each PO DAILY [facility] Stop: 07/17/17 08:59 Last Admin: 05/31/17 10:13 Dose: 1 each Levetiracetam (Keppra) 250 mg NG BID [facility] Stop: 07/14/17 08:59 Last Admin: 05/31/17 10:13 Dose: 250 mg Metoclopramide HCl (Reglan) 5 mg IVP TID [facility] Stop: 07/20/17 20:59 Last Admin: 05/31/17 10:14 Dose: 5 mg Metoprolol Tartrate (Lopressor) 50 mg GT Q8H [facility] Stop: 07/18/17 08:59 Last Admin: 05/31/17 10:16 Dose: Not Given Miscellaneous (Vte Chemical Prophylaxis Screen/ Admission) 1 [facility] PRN PRN PRN Reason: PROTOCOL Stop: 07/14/17 09:25 Miscellaneous (Clinical Monitoring) 1 ea [facility] DAILY PRN PRN Reason: RENAL Stop: 07/15/17 12:32 Miscellaneous (Probiotic Screen) 1 ea [facility] PRN PRN PRN Reason: PROTOCOL Stop: 07/16/17 09:33 Miscellaneous (Tpn Per Pharmacy) 1 [facility] PRN PRN PRN Reason: PROTOCOL Stop: 07/24/17 15:59 Pantoprazole Sodium (Protonix) 40 mg GT DAILY YESSICA Stop: 07/14/17 08:59 Last Admin: 05/31/17 10:14 Dose: 40 mg General: no acute distress, well developed, well nourished HEENT: atraumatic, normocephalic Neck: supple, no thyromegaly Cardiovascular: S1S2, regular Lungs: clear to percussion, crackles Abdomen: soft, no tender, no distended Extremities: no cyanosis, no clubbing, no edema Skin: intact - Procedures Procedures: Procedures Procedure Code Date INSERT EMERGENCY AIRWAY 76879 05/13/17 INSERT TUNNELED CV CATH [id number] 05/13/17 INSERTION OF ENDOTRACHEAL AIRWAY INTO TRACHEA, VIA OPENING [id number] 05/13/17 INSERTION OF INFUSION DEV INTO R FEMOR VEIN, PERC APPROACH [id number] 05/13/17 RESPIRATORY VENTILATION, GREATER THAN 96 CONSECUTIVE HOURS [id number] 05/13/17 VENT MGMT INPAT INIT DAY 31484 05/13/17 Infectious Disease Assmt/Plan - Problem List Patient Problems: All Active Problems COUGH AND CONGESTION (Acute) - Assessment Assessment: 1. Pneuimonia.? Aspiration. 2. NICK. 3. CVA. 4. CHF. 5. CKD4. NICK mild rise in creatinine. 6. Afib with rapid ventricular response. Plan: Continue tygacil and add colistin nebulizer. Nutritional Asmnt/Malnutr-PDOC - Dietary Evaluation Malnutrition Findings (Please click <Entered> for more info): Nutritional Asmnt/Malnutrition Start: 05/15/17 13: 56 Text: Status: Complete Freq: Document 05/15/17 13:56 GSUN (Rec: 05/15/17 14:18 DARON [email or web address]) Nutritional Asmnt/Malnutrition Patient General Information Nutritional Screening High Risk Screening Diagnosis PNA, NICK, icnreasing renal failure, CVA, CHF, DM Pertinent Medical Hx/Surgical Hx CVA, dementia, afib, CAD, HTN, dyslipidemia, epilepsy, GERD, aspiration PNA, DM, CKD, dehydration, C. diff, anemia D Subjective Information 86 year old male from SNF. Pt greeted RD. Pt is overall thin , moderate to severe wasting to chest, clavicles, extremities. Observed Glytrol running at 60ml/hr x20hrs during visit. Unable to obtain CBW due to bedscale not calibrated. Discussed with YVETTE Farooq regarding tube feeding recommendations. Current Diet Order/ Nutrition Support Glytrol at 60ml/hr x 20hrs, providing 1200kcal 54g protein Pertinent Medications Lipitor, Novolog, Levemir, Cephulac, Morphine, Protonix, Nacl 0.9% Pertinent Labs 05/13: potassium 5.3H, BUN 80H, creatinine 2.4H, glucose 103 05/15: potassium WNL, BUN 70H, creatinine 2.4H, glucose 239H, A1c 6.1H, phosphorus 5.4H Nutritional Hx/Data Height 1.68 m Height (Calculated Centimeters) 167.6 Current Weight (lbs) 65.771 kg Weight (Calculated Kilograms) 65.8 Weight (Calculated Grams) [address].9 [place] Body Weight 142 Weight Status Approriate GI Symptoms Difficult in: Swallowing Cultural/Ethnic/Confucianist Belief [facility]: Glucerna 1.2 at 85ml/hr x 20hrs, providing 2040kcal, promote weight gain. Skin Integrity/Comment: Gee 12. Skin intact. Estimated Nutritional Goals Calories/Kcals/Kg CBW 145lb/65.9kg Kcals Calculated 1976-2307kcal (30-35kcal/kg) Protein Calculated 46-92g (0.7-1.4g/kg, renal vs moderate to severe wasting) Fluid: ml Per MD (renal) Nutritional Problem 2. Problem Problem Impaired nutrient utilization related to Etiology NICK, hx CKD aeb Signs/Symptoms: "increasing renal failure," potaasum 5.3H on adm, BUN 70H, sliver handler 2.4H, phosphorus 5.4H 1. Problem Problem Inadequate intake from enteral nutrition infusion related to Etiology estimated nutritional needs aeb Signs/Symptoms: providing to meet 61% lower end kcal needs Intervention/Recommendation Comments 1. Recommend Novasource Renal at 50ml/hr x 20hrs, providing 2000kcal and 91g protein. Current order Glytrol at 60ml/ hr x 20hrs is only providing 1200kcal, pt recieves 2040kcal at [facility]. Expected Outcomes/Goals Expected Outcomes/Goals 1. Pt to meet at least 100% of estimated nutritional needs on tube feeding with tolerance .
--- NOTE | 2017-05-31 13:08 | General Progress Note ---
Subjective - Review of Systems Service Date: 05/31/17 (not responsive on the vent via ET tube) Events since last encounter: now blood pressure high with relatively low heart rate may have to give hydralazine IV for bp prn every 6 hours prn for bp greater than 160 systolic Objective - Results Result Diagrams: 05/30/17 04:47 05/31/17 04:50 Recent Labs: Laboratory Last Values WBC 9.0 Th/cmm (4.8-10.8) 05/30/17 04:47 RBC 3.00 Mil/cmm (3.80-5.80) L 05/30/17 04:47 Hgb 8.5 gm/dL (12.6-17.4) L 05/30/17 04:47 Hct 25.2 % (39.0-49.0) L 05/30/17 04:47 MCV 83.9 fl (80-99) 05/30/17 04:47 MCH 28.3 pg (27.0-31.0) 05/30/17 04:47 MCHC Differential 33.7 pg (28.0-36.0) 05/30/17 04:47 RDW 16.2 % (11.5-20.0) 05/30/17 04:47 Plt Count 199 Th/cmm (150-400) 05/30/17 04:47 MPV 8.5 fl 05/30/17 04:47 Neutrophils % 79.5 % (40.0-80.0) 05/30/17 04:47 Band Neutrophils % 2 % (0-10) 05/26/17 04:40 Lymphocytes % 11.0 % (20.0-50.0) L 05/30/17 04:47 Monocytes % 8.3 % (2.0-10.0) 05/30/17 04:47 Eosinophils % 1.1 % (0.0-5.0) 05/30/17 04:47 Basophils % 0.1 % (0.0-2.0) 05/30/17 04:47 Neutrophils (Manual) 89 % (40-80) H 05/26/17 04:40 Lymphocytes 5 % (20-50) L 05/26/17 04:40 Monocytes 4 % (2-10) 05/26/17 04:40 Eosinophils 0 % (0-5) 05/24/17 04:49 Basophils 0 % (0-3) 05/24/17 04:49 Metamyelocytes 1 % (0-0) H 05/22/17 04:44 Toxic Granulation 1+ 05/23/17 04:48 Platelet Estimate ADEQUATE (NORMAL) 05/26/17 04:40 Platelet Morphology NORMAL (NORMAL) 05/26/17 04:40 Anisocytosis 1+ 05/22/17 04:44 RBC Morph Micro Appear NORMAL (NORMAL) 05/26/17 04:40 Eos Smear Source URINE 05/14/17 18:00 Eos Smear Total Cells FEW EOSINOPHILS SEEN (NONE SEEN) 05/14/17 18:00 PT 11.9 SECONDS (9.5-11.5) H 05/13/17 17:42 INR 1.13 (0.5-1.4) 05/13/17 17:42 PTT (Actin FS) 30.5 SECONDS (26.0-38.0) 05/15/17 12:30 Specimen Source Arterial 05/30/17 11:08 Sample Site Left Radial 05/30/17 11:08 pH 7.40 (7.35-7.45) 05/30/17 11:08 pCO2 47.0 mmHg (35.0-45.0) H 05/30/17 11:08 pO2 95.0 mmHg (80.0-100.0) 05/30/17 11:08 HCO3 27.7 mEq/L (20.0-26.0) H 05/30/17 11:08 Base Excess 3.6 mEq/L (-3.0-3.0) H 05/30/17 11:08 O2 Saturation 97.0 % (92.0-100.0) 05/30/17 11:08 [place] Test YES 05/30/17 11:08 Vent Rate 12 05/30/17 11:08 Inspired O2 40 05/30/17 11:08 Tidal Volume 500 05/30/17 11:08 PEEP 0 05/30/17 11:08 Pressure (ins/psv/peep) 15 05/30/17 11:08 Critical Value E.MCNEAL 05/30/17 11:08 Sodium 137 mEq/L (136-145) 05/31/17 04:50 Potassium 3.3 mEq/L (3.5-5.1) L 05/31/17 04:50 Chloride 103 mEq/L (98-107) 05/31/17 04:50 Carbon Dioxide 24.8 mEq/L (21.0-31.0) 05/31/17 04:50 Anion Gap 12.5 (7.0-16.0) 05/31/17 04:50 BUN 64 mg/dL (7-25) H 05/31/17 04:50 Creatinine 2.6 mg/dL (0.7-1.3) H 05/31/17 04:50 Est GFR ( Amer) TNP 05/31/17 04:50 Est GFR (Non-Af Amer) TNP 05/31/17 04:50 BUN/Creatinine Ratio 24.6 05/31/17 04:50 Glucose 197 mg/dL (70-105) H 05/31/17 04:50 POC Glucose 195 MG/DL (70 - 105) H 05/31/17 11:42 Hemoglobin A1c % 6.1 % (4.0-6.0) H 05/15/17 06:30 Plasma/Ser Osmolality 301 mOsmol/kg (280-301) 05/14/17 18:20 Whole Bld Lactic Acid 1.58 mmol/L (0.60-1.99) 05/13/17 17:42 Uric Acid 7.7 mg/dL (4.4-7.6) H 05/15/17 06:30 Calcium 9.0 mg/dL (8.6-10.3) 05/31/17 04:50 Phosphorus 4.0 mg/dL (2.5-5.0) 05/31/17 04:50 Magnesium 1.9 mg/dL (1.9-2.7) 05/31/17 04:50 Total Bilirubin 1.8 mg/dL (0.3-1.0) H 05/29/17 05:05 Direct Bilirubin 0.09 mg/dL (0.0-0.2) 05/19/17 04:50 AST 94 U/L (13-39) H 05/29/17 05:05 ALT 10 U/L (7-52) 05/29/17 05:05 Alkaline Phosphatase 238 U/L (34-104) H 05/29/17 05:05 Ammonia 65 umol/L (16-53) H 05/19/17 04:50 Creatine Kinase 35 U/L (30-223) 05/16/17 23:06 Troponin I 0.02 ng/mL (0.01-0.05) 05/16/17 23:06 B-Natriuretic Peptide 739.0 pg/mL (5.0-100.0) H 05/23/17 04:48 Total Protein 6.0 gm/dL (6.0-8.3) 05/29/17 05:05 Albumin 3.3 gm/dL (4.2-5.5) L 05/29/17 05:05 Globulin 2.7 gm/dL 05/29/17 05:05 Albumin/Globulin Ratio 1.2 (1.0-1.8) 05/29/17 05:05 Prealbumin 6 mg/dL (9-32) L 05/30/17 04:47 Triglycerides 53 mg/dL (<150) 05/30/17 04:47 Cholesterol 42 mg/dL (<200) 05/30/17 04:47 TSH 2.74 uIU/ml (0.34-5.60) 05/15/17 06:30 Urine Source CATH 05/13/17 19:50 Urine Color YELLOW 05/13/17 19:50 Urine Clarity CLOUDY (CLEAR) 05/13/17 19:50 Urine pH 6.0 05/13/17 19:50 Ur Specific [place] 1.015 (1.005-1.030) 05/13/17 19:50 Urine Protein 100 mg/dL (NEGATIVE) H 05/13/17 19:50 Urine Glucose (UA) NEGATIVE mg/dL (NEGATIVE) 05/13/17 19:50 Urine Ketones NEGATIVE mg/dL (NEGATIVE) 05/13/17 19:50 Urine Blood LARGE (NEGATIVE) H 05/13/17 19:50 Urine Nitrate NEGATIVE (NEGATIVE) 05/13/17 19:50 Urine Bilirubin NEGATIVE (NEGATIVE) 05/13/17 19:50 Urine Urobilinogen 0.2 E.U./dL (0.2 - 1.0) 05/13/17 19:50 Ur Leukocyte Esterase LARGE (NEGATIVE) H 05/13/17 19:50 Urine RBC 50-100 /hpf (0-5) H 05/13/17 19:50 Urine WBC >100 /hpf (0-5) H 05/13/17 19:50 Ur Epithelial Cells NONE SEEN /lpf (FEW) 05/13/17 19:50 Urine Bacteria NONE SEEN /hpf (NONE SEEN) 05/13/17 19:50 Ur Random Sodium 30 mmol/L 05/14/17 18:00 Urine Creatinine 36.4 mg/dl (Not Estab.) 05/14/17 18:00 Urine Microalbumin 363.5 ug/mL (Not Estab.) 05/14/17 18:00 Microalb/Creat Ratio 998.6 mg/g creat (0.0-30.0) H 05/14/17 18:00 Stool Occult Blood NEGATIVE (NEGATIVE) 05/25/17 17:49 Random Vancomycin 19.1 ug/mL (5.0-40.0) 05/19/17 04:50 Hepatitis A IgM Ab Negative (Negative) 05/21/17 04:46 Hep Bs Antigen Negative (Negative) 05/21/17 04:46 Hep B Core IgM Ab Negative (Negative) 05/21/17 04:46 Hepatitis C Antibody 0.1 s/co ratio (0.0-0.9) 05/21/17 04:46 Blood Type B POSITIVE 05/21/17 10:19 Antibody Screen NEGATIVE 05/21/17 10:19 Crossmatch See Detail 05/21/17 10:19 - Physical Exam Vitals and I&O: Vital Signs Temp 98.5 F 05/31/17 12:00 Pulse 56 05/31/17 12:00 Resp 12 05/31/17 12:00 BP 162/75 05/31/17 12:00 Pulse Ox 100 05/31/17 12:00 Intake & Output 05/30/17 05/31/17 05/31/17 18:59 06:59 18:59 Intake Total 1028 850 100 Output Total 2550 Balance 1028 -1700 100 Weight (lbs) 70.76 kg 68.039 kg Intake: Intake, IV Amount 1028 50 100 Multivitamin Inj 10 ml In 928 Dextrose 70% 250 ml In Amino Acids 10% 500 ml In Intralipids 20% 200 ml @ 40 mls/hr IV .Q24H YESSICA Rx#:[id number] Tigecycline 50 mg In 100 50 100 Sodium Chloride 0.9% 100 ml @ 100 mls/hr IV Q12H YESSICA Rx#:[id number] TPN/PPN 680 Other 120 Output: Urine 350 Hemodialysis 2200 Other: # Bowel Movements 1 1 Active Medications: Current Medications Acetaminophen (Tylenol) 650 mg PO Q4HR PRN PRN Reason: Pain Or Fever above 101 Stop: 07/14/17 15:15 Last Admin: 05/23/17 15:07 Dose: 650 mg Albuterol/Ipratropium (Duoneb Neb) 3 ml HHN Q4HRT [facility] Stop: 07/19/17 14:59 Last Admin: 05/31/17 12:00 Dose: 3 ml Atorvastatin Calcium (Lipitor) 10 mg GT HS YESSICA PRN Reason: Protocol Stop: 07/14/17 20:59 Last Admin: 05/30/17 21:06 Dose: 10 mg Budesonide (Pulmicort) 1 mg HHN BIDRT [facility] Stop: 07/19/17 18:59 Last Admin: 05/31/17 08:01 Dose: 1 mg Carbidopa/Levodopa (Sinemet 25mg-100 Mg) 1 tab PO TID [facility] Stop: 07/14/17 08:59 Last Admin: 05/31/17 10:15 Dose: 1 tab Chlorhexidine Gluconate (Peridex) 15 ml MM 0800,2000 [facility] Stop: 07/23/17 19:59 Last Admin: 05/31/17 10:15 Dose: 15 ml Clonidine HCl (Catapres) 0.1 mg PO Q6HR PRN PRN Reason: BP MAINTENANCE (PER PROTOCOL) Stop: 07/28/17 13:31 Last Admin: 05/29/17 21:04 Dose: 0.1 mg Colistimethate Sodium (Colistin) 75 mg HHN BIDRT [facility] Stop: 07/30/17 18:59 Dextrose (D50w) 50 ml IVP PRN PRN; Protocol PRN Reason: HYPOGLYCEMIA Stop: 07/20/17 00:54 Last Admin: 05/22/17 23:34 Dose: 50 ml Diltiazem HCl (Cardizem) 10 mg IVP Q6HR PRN PRN Reason: HR >130 Stop: 07/22/17 17:09 Last Admin: 05/24/17 04:21 Dose: 10 mg Furosemide (Lasix) 40 mg IVP DAILY [facility] Stop: 07/18/17 08:59 Last Admin: 05/31/17 10:49 Dose: 40 mg Norepinephrine Bitartrate 8 mg (/ Dextrose) 258 mls @ 0 mls/hr IV TITR PRN; Protocol; Titrate PRN Reason: BP MAINTENANCE (PER PROTOCOL) Stop: 07/19/17 12:29 Last Admin: 05/21/17 01:06 Dose: 10 mcg/min, 19.35 mls/hr Phenylephrine HCl 10 mg/ (Sodium Chloride) 250 mls @ 0 mls/hr IV TITR YESSICA; Per Protocol PRN Reason: Protocol Stop: 07/19/17 12:59 Tigecycline 50 mg/ Sodium (Chloride) 100 mls @ 100 mls/hr IV Q12H YESSICA Stop: 07/21/17 18:59 Last Infusion: 05/31/17 07:45 Dose: Infused Multivitamins/Minerals 10 ml/Dextrose/ Amino Acids/Electrolytes/ Fat Emulsion Intravenous 960 mls @ 40 mls/hr IV .Q24H [facility] Stop: 07/26/17 15:59 Last Admin: 05/30/17 16:07 Dose: 40 mls/hr Insulin Aspart (Novolog Insulin Sliding Scale) 0 units SUBQ Q6HR YESSICA PRN Reason: Protocol Stop: 07/14/17 00:00 Last Admin: 05/31/17 12:51 Dose: Not Given Isosorbide Dinitrate (Isordil) 20 mg GT TID [facility] Stop: 07/28/17 13:33 Last Admin: 05/31/17 10:14 Dose: Not Given Lactobacillus Rhamnosus (Culturelle) 1 each PO DAILY [facility] Stop: 07/17/17 08:59 Last Admin: 05/31/17 10:13 Dose: 1 each Levetiracetam (Keppra) 250 mg NG BID [facility] Stop: 07/14/17 08:59 Last Admin: 05/31/17 10:13 Dose: 250 mg Metoclopramide HCl (Reglan) 5 mg IVP TID [facility] Stop: 07/20/17 20:59 Last Admin: 05/31/17 10:14 Dose: 5 mg Metoprolol Tartrate (Lopressor) 50 mg GT Q8H [facility] Stop: 07/18/17 08:59 Last Admin: 05/31/17 10:16 Dose: Not Given Miscellaneous (Vte Chemical Prophylaxis Screen/ Admission) 1 ea MC PRN PRN PRN Reason: PROTOCOL Stop: 07/14/17 09:25 Miscellaneous (Clinical Monitoring) 1 ea DAILY PRN PRN Reason: RENAL Stop: 07/15/17 12:32 Miscellaneous (Probiotic Screen) 1 ea PRN PRN PRN Reason: PROTOCOL Stop: 07/16/17 09:33 Miscellaneous (Tpn Per Pharmacy) 1 ea PRN PRN PRN Reason: PROTOCOL Stop: 07/24/17 15:59 Pantoprazole Sodium (Protonix) 40 mg GT DAILY YESSICA Stop: 07/14/17 08:59 Last Admin: 05/31/17 10:14 Dose: 40 mg General: No acute distress, Other (open eyes but not interractive), no Alert HEENT: Atraumatic, EOMI (normal), Mucous membr. moist/pink Neck: Supple, +2 carotid pulse wo bruit Cardiovascular: Regular rate, Normal S1, Normal S2, Other (afib with fluctuating heart rate) Lungs: Other (occasional rhonchi) Abdomen: Soft Extremities: Edema (no edema) Neurological: Sensation intact, Other (lethargic) Skin: no Rash Psych/Mental Status: Mood NL - Procedures Procedures: Procedures Procedure Code Date INSERT EMERGENCY AIRWAY 16230 05/13/17 INSERT TUNNELED CV CATH 35527 05/13/17 INSERTION OF ENDOTRACHEAL AIRWAY INTO TRACHEA, VIA OPENING [id number] 05/13/17 INSERTION OF INFUSION DEV INTO R FEMOR VEIN, PERC APPROACH [id number] 05/13/17 RESPIRATORY VENTILATION, GREATER THAN 96 CONSECUTIVE HOURS [id number] 05/13/17 VENT MGMT INPAT INIT DAY [id number] 05/13/17 Assessment/Plan - Problem List Patient Problems: All Active Problems COUGH AND CONGESTION (Acute) Congestive heart failure (CHF) (Acute) I50.9 congestive heart failure (Acute) hypertension uncontrolled with bradycarda (Acute) renal failure (Acute) - Plan Plan: reevaluate fluid status tomorrow anticipate hemo next will be Monfay Give hydralazine prn for bp controll will not cUSE BRdy but rather inc herat rate Nutritional Asmnt/Malnutr-PDOC - Dietary Evaluation Malnutrition Findings (Please click <Entered> for more info): Nutritional Asmnt/Malnutrition Start: 05/15/17 13: 56 Text: Status: Complete Freq: Document 05/15/17 13:56 GSUN (Rec: 05/15/17 14:18 GSUN [id number]) Nutritional Asmnt/Malnutrition Patient General Information Nutritional Screening High Risk Screening Diagnosis PNA, NICK, icnreasing renal failure, CVA, CHF, DM Pertinent Medical Hx/Surgical Hx CVA, dementia, afib, CAD, HTN, dyslipidemia, epilepsy, GERD, aspiration PNA, DM, CKD, dehydration, C. diff, anemia D Subjective Information 86 year old male from SNF. Pt greeted RD. Pt is overall thin , moderate to severe wasting to chest, clavicles, extremities. Observed Glytrol running at 60ml/hr x20hrs during visit. Unable to obtain CBW due to bedscale not calibrated. Discussed with YVETTE Farooq regarding tube feeding recommendations. Current Diet Order/ Nutrition Support Glytrol at 60ml/hr x 20hrs, providing 1200kcal 54g protein Pertinent Medications Lipitor, Novolog, Levemir, Cephulac, Morphine, Protonix, Nacl 0.9% Pertinent Labs 05/13: potassium 5.3H, BUN 80H, creatinine 2.4H, glucose 103 05/15: potassium WNL, BUN 70H, creatinine 2.4H, glucose 239H, A1c 6.1H, phosphorus 5.4H Nutritional Hx/Data Height 1.68 m Height (Calculated Centimeters) 167.6 Current Weight (lbs) 65.771 kg Weight (Calculated Kilograms) 65.8 Weight (Calculated Grams) 65584.9 [place] Body Weight 142 Weight Status Approriate GI Symptoms Difficult in: Swallowing Cultural/Ethnic/Rastafarian Belief [facility]: Glucerna 1.2 at 85ml/hr x 20hrs, providing 2040kcal, promote weight gain. Skin Integrity/Comment: Gee 12. Skin intact. Estimated Nutritional Goals Calories/Kcals/Kg CBW 145lb/65.9kg Kcals Calculated 1976-7kcal (30-35kcal/kg) Protein Calculated 46-92g (0.7-1.4g/kg, renal vs moderate to severe wasting) Fluid: ml Per MD (renal) Nutritional Problem 2. Problem Problem Impaired nutrient utilization related to Etiology NICK, hx CKD aeb Signs/Symptoms: "increasing renal failure," potaasum 5.3H on adm, BUN 70H, disassembler product 2.4H, phosphorus 5.4H 1. Problem Problem Inadequate intake from enteral nutrition infusion related to Etiology estimated nutritional needs aeb Signs/Symptoms: providing to meet 61% lower end kcal needs Intervention/Recommendation Comments 1. Recommend Novasource Renal at 50ml/hr x 20hrs, providing 2000kcal and 91g protein. Current order Glytrol at 60ml/ hr x 20hrs is only providing 1200kcal, pt recieves 2040kcal at [facility]. Expected Outcomes/Goals Expected Outcomes/Goals 1. Pt to meet at least 100% of estimated nutritional needs on tube feeding with tolerance .
--- NOTE | 2017-05-31 14:10 | General Progress Note ---
Subjective - Review of Systems Service Date: 05/31/17 Subjective: Patient seen and examined opens eyes on verbal command nurse reported that patient's HR varies between 40's-80's Objective - Results Result Diagrams: 05/30/17 04:47 05/31/17 04:50 Recent Labs: Laboratory Last Values WBC 9.0 Th/cmm (4.8-10.8) 05/30/17 04:47 RBC 3.00 Mil/cmm (3.80-5.80) L 05/30/17 04:47 Hgb 8.5 gm/dL (12.6-17.4) L 05/30/17 04:47 Hct 25.2 % (39.0-49.0) L 05/30/17 04:47 MCV 83.9 fl (80-99) 05/30/17 04:47 MCH 28.3 pg (27.0-31.0) 05/30/17 04:47 MCHC Differential 33.7 pg (28.0-36.0) 05/30/17 04:47 RDW 16.2 % (11.5-20.0) 05/30/17 04:47 Plt Count 199 Th/cmm (150-400) 05/30/17 04:47 MPV 8.5 fl 05/30/17 04:47 Neutrophils % 79.5 % (40.0-80.0) 05/30/17 04:47 Band Neutrophils % 2 % (0-10) 05/26/17 04:40 Lymphocytes % 11.0 % (20.0-50.0) L 05/30/17 04:47 Monocytes % 8.3 % (2.0-10.0) 05/30/17 04:47 Eosinophils % 1.1 % (0.0-5.0) 05/30/17 04:47 Basophils % 0.1 % (0.0-2.0) 05/30/17 04:47 Neutrophils (Manual) 89 % (40-80) H 05/26/17 04:40 Lymphocytes 5 % (20-50) L 05/26/17 04:40 Monocytes 4 % (2-10) 05/26/17 04:40 Eosinophils 0 % (0-5) 05/24/17 04:49 Basophils 0 % (0-3) 05/24/17 04:49 Metamyelocytes 1 % (0-0) H 05/22/17 04:44 Toxic Granulation 1+ 05/23/17 04:48 Platelet Estimate ADEQUATE (NORMAL) 05/26/17 04:40 Platelet Morphology NORMAL (NORMAL) 05/26/17 04:40 Anisocytosis 1+ 05/22/17 04:44 RBC Morph Micro Appear NORMAL (NORMAL) 05/26/17 04:40 Eos Smear Source URINE 05/14/17 18:00 Eos Smear Total Cells FEW EOSINOPHILS SEEN (NONE SEEN) 05/14/17 18:00 PT 11.9 SECONDS (9.5-11.5) H 05/13/17 17:42 INR 1.13 (0.5-1.4) 05/13/17 17:42 PTT (Actin FS) 30.5 SECONDS (26.0-38.0) 05/15/17 12:30 Specimen Source Arterial 05/30/17 11:08 Sample Site Left Radial 05/30/17 11:08 pH 7.40 (7.35-7.45) 05/30/17 11:08 pCO2 47.0 mmHg (35.0-45.0) H 05/30/17 11:08 pO2 95.0 mmHg (80.0-100.0) 05/30/17 11:08 HCO3 27.7 mEq/L (20.0-26.0) H 05/30/17 11:08 Base Excess 3.6 mEq/L (-3.0-3.0) H 05/30/17 11:08 O2 Saturation 97.0 % (92.0-100.0) 05/30/17 11:08 Feliciano Test YES 05/30/17 11:08 Vent Rate 12 05/30/17 11:08 Inspired O2 40 05/30/17 11:08 Tidal Volume 500 05/30/17 11:08 PEEP 0 05/30/17 11:08 Pressure (ins/psv/peep) 15 05/30/17 11:08 Critical Value E.MCNEAL 05/30/17 11:08 Sodium 137 mEq/L (136-145) 05/31/17 04:50 Potassium 3.3 mEq/L (3.5-5.1) L 05/31/17 04:50 Chloride 103 mEq/L (98-107) 05/31/17 04:50 Carbon Dioxide 24.8 mEq/L (21.0-31.0) 05/31/17 04:50 Anion Gap 12.5 (7.0-16.0) 05/31/17 04:50 BUN 64 mg/dL (7-25) H 05/31/17 04:50 Creatinine 2.6 mg/dL (0.7-1.3) H 05/31/17 04:50 Est GFR ( Amer) TNP 05/31/17 04:50 Est GFR (Non-Af Amer) TNP 05/31/17 04:50 BUN/Creatinine Ratio 24.6 05/31/17 04:50 Glucose 197 mg/dL (70-105) H 05/31/17 04:50 POC Glucose 195 MG/DL (70 - 105) H 05/31/17 11:42 Hemoglobin A1c % 6.1 % (4.0-6.0) H 05/15/17 06:30 Plasma/Ser Osmolality 301 mOsmol/kg (280-301) 05/14/17 18:20 Whole Bld Lactic Acid 1.58 mmol/L (0.60-1.99) 05/13/17 17:42 Uric Acid 7.7 mg/dL (4.4-7.6) H 05/15/17 06:30 Calcium 9.0 mg/dL (8.6-10.3) 05/31/17 04:50 Phosphorus 4.0 mg/dL (2.5-5.0) 05/31/17 04:50 Magnesium 1.9 mg/dL (1.9-2.7) 05/31/17 04:50 Total Bilirubin 1.8 mg/dL (0.3-1.0) H 05/29/17 05:05 Direct Bilirubin 0.09 mg/dL (0.0-0.2) 05/19/17 04:50 AST 94 U/L (13-39) H 05/29/17 05:05 ALT 10 U/L (7-52) 05/29/17 05:05 Alkaline Phosphatase 238 U/L (34-104) H 05/29/17 05:05 Ammonia 65 umol/L (16-53) H 05/19/17 04:50 Creatine Kinase 35 U/L (30-223) 05/16/17 23:06 Troponin I 0.02 ng/mL (0.01-0.05) 05/16/17 23:06 B-Natriuretic Peptide 739.0 pg/mL (5.0-100.0) H 05/23/17 04:48 Total Protein 6.0 gm/dL (6.0-8.3) 05/29/17 05:05 Albumin 3.3 gm/dL (4.2-5.5) L 05/29/17 05:05 Globulin 2.7 gm/dL 05/29/17 05:05 Albumin/Globulin Ratio 1.2 (1.0-1.8) 05/29/17 05:05 Prealbumin 6 mg/dL (9-32) L 05/30/17 04:47 Triglycerides 53 mg/dL (<150) 05/30/17 04:47 Cholesterol 42 mg/dL (<200) 05/30/17 04:47 TSH 2.74 uIU/ml (0.34-5.60) 05/15/17 06:30 Urine Source CATH 05/13/17 19:50 Urine Color YELLOW 05/13/17 19:50 Urine Clarity CLOUDY (CLEAR) 05/13/17 19:50 Urine pH 6.0 05/13/17 19:50 Ur Specific [place] 1.015 (1.005-1.030) 05/13/17 19:50 Urine Protein 100 mg/dL (NEGATIVE) H 05/13/17 19:50 Urine Glucose (UA) NEGATIVE mg/dL (NEGATIVE) 05/13/17 19:50 Urine Ketones NEGATIVE mg/dL (NEGATIVE) 05/13/17 19:50 Urine Blood LARGE (NEGATIVE) H 05/13/17 19:50 Urine Nitrate NEGATIVE (NEGATIVE) 05/13/17 19:50 Urine Bilirubin NEGATIVE (NEGATIVE) 05/13/17 19:50 Urine Urobilinogen 0.2 E.U./dL (0.2 - 1.0) 05/13/17 19:50 Ur Leukocyte Esterase LARGE (NEGATIVE) H 05/13/17 19:50 Urine RBC 50-100 /hpf (0-5) H 05/13/17 19:50 Urine WBC >100 /hpf (0-5) H 05/13/17 19:50 Ur Epithelial Cells NONE SEEN /lpf (FEW) 05/13/17 19:50 Urine Bacteria NONE SEEN /hpf (NONE SEEN) 05/13/17 19:50 Ur Random Sodium 30 mmol/L 05/14/17 18:00 Urine Creatinine 36.4 mg/dl (Not Estab.) 05/14/17 18:00 Urine Microalbumin 363.5 ug/mL (Not Estab.) 05/14/17 18:00 Microalb/Creat Ratio 998.6 mg/g creat (0.0-30.0) H 05/14/17 18:00 Stool Occult Blood NEGATIVE (NEGATIVE) 05/25/17 17:49 Random Vancomycin 19.1 ug/mL (5.0-40.0) 05/19/17 04:50 Hepatitis A IgM Ab Negative (Negative) 05/21/17 04:46 Hep Bs Antigen Negative (Negative) 05/21/17 04:46 Hep B Core IgM Ab Negative (Negative) 05/21/17 04:46 Hepatitis C Antibody 0.1 s/co ratio (0.0-0.9) 05/21/17 04:46 Blood Type B POSITIVE 05/21/17 10:19 Antibody Screen NEGATIVE 05/21/17 10:19 Crossmatch See Detail 05/21/17 10:19 - Physical Exam Vitals and I&O: Vital Signs Temp 98.5 F 05/31/17 12:00 Pulse 76 05/31/17 13:00 Resp 12 05/31/17 12:00 BP 173/125 05/31/17 13:00 Pulse Ox 100 05/31/17 12:00 Intake & Output 05/30/17 05/31/17 05/31/17 18:59 06:59 18:59 Intake Total 1028 850 100 Output Total 2550 Balance 1028 -1700 100 Weight (lbs) 70.76 kg 68.039 kg Intake: Intake, IV Amount 1028 50 100 Multivitamin Inj 10 ml In 928 Dextrose 70% 250 ml In Amino Acids 10% 500 ml In Intralipids 20% 200 ml @ 40 mls/hr IV .Q24H YESSICA Rx#:[id number] Tigecycline 50 mg In 100 50 100 Sodium Chloride 0.9% 100 ml @ 100 mls/hr IV Q12H YESSICA Rx#:[id number] TPN/PPN 680 Other 120 Output: Urine 350 Hemodialysis 2200 Other: # Bowel Movements 1 1 Active Medications: Current Medications Acetaminophen (Tylenol) 650 mg PO Q4HR PRN PRN Reason: Pain Or Fever above 101 Stop: 07/14/17 15:15 Last Admin: 05/23/17 15:07 Dose: 650 mg Albuterol/Ipratropium (Duoneb Neb) 3 ml HHN Q4HRT [facility] Stop: 07/19/17 14:59 Last Admin: 05/31/17 12:00 Dose: 3 ml Atorvastatin Calcium (Lipitor) 10 mg GT HS YESSICA PRN Reason: Protocol Stop: 07/14/17 20:59 Last Admin: 05/30/17 21:06 Dose: 10 mg Budesonide (Pulmicort) 1 mg HHN BIDRT [facility] Stop: 07/19/17 18:59 Last Admin: 05/31/17 08:01 Dose: 1 mg Carbidopa/Levodopa (Sinemet 25mg-100 Mg) 1 tab PO TID [facility] Stop: 07/14/17 08:59 Last Admin: 05/31/17 13:00 Dose: 1 tab Chlorhexidine Gluconate (Peridex) 15 ml MM 0800,1999 [facility] Stop: 07/23/17 19:59 Last Admin: 05/31/17 10:15 Dose: 15 ml Clonidine HCl (Catapres) 0.1 mg PO Q6HR PRN PRN Reason: BP MAINTENANCE (PER PROTOCOL) Stop: 07/28/17 13:31 Last Admin: 05/29/17 21:04 Dose: 0.1 mg Colistimethate Sodium (Colistin) 75 mg HHN BIDRT [facility] Stop: 07/30/17 18:59 Dextrose (D50w) 50 ml IVP PRN PRN; Protocol PRN Reason: HYPOGLYCEMIA Stop: 07/20/17 00:54 Last Admin: 05/22/17 23:34 Dose: 50 ml Diltiazem HCl (Cardizem) 10 mg IVP Q6HR PRN PRN Reason: HR >130 Stop: 07/22/17 17:09 Last Admin: 05/24/17 04:21 Dose: 10 mg Furosemide (Lasix) 40 mg IVP DAILY [facility] Stop: 07/18/17 08:59 Last Admin: 05/31/17 10:49 Dose: 40 mg Hydralazine HCl (Apresoline 20 Mg/Ml) 10 mg IV Q6HR PRN PRN Reason: BP MAINTENANCE (PER PROTOCOL) Stop: 07/30/17 13:09 Norepinephrine Bitartrate 8 mg (/ Dextrose) 258 mls @ 0 mls/hr IV TITR PRN; Protocol; Titrate PRN Reason: BP MAINTENANCE (PER PROTOCOL) Stop: 07/19/17 12:29 Last Admin: 05/21/17 01:06 Dose: 10 mcg/min, 19.35 mls/hr Phenylephrine HCl 10 mg/ (Sodium Chloride) 250 mls @ 0 mls/hr IV TITR YESSICA; Per Protocol PRN Reason: Protocol Stop: 07/19/17 12:59 Tigecycline 50 mg/ Sodium (Chloride) 100 mls @ 100 mls/hr IV Q12H YESSICA Stop: 07/21/17 18:59 Last Infusion: 05/31/17 07:45 Dose: Infused Multivitamins/Minerals 10 ml/Dextrose/ Amino Acids/Electrolytes/ Fat Emulsion Intravenous 960 mls @ 40 mls/hr IV .Q24H [facility] Stop: 07/26/17 15:59 Last Admin: 05/30/17 16:07 Dose: 40 mls/hr Insulin Aspart (Novolog Insulin Sliding Scale) 0 units SUBQ Q6HR YESSICA PRN Reason: Protocol Stop: 07/14/17 00:00 Last Admin: 05/31/17 12:51 Dose: Not Given Isosorbide Dinitrate (Isordil) 20 mg GT TID [facility] Stop: 07/28/17 13:33 Last Admin: 05/31/17 13:00 Dose: 20 mg Lactobacillus Rhamnosus (Culturelle) 1 each PO DAILY [facility] Stop: 07/17/17 08:59 Last Admin: 05/31/17 10:13 Dose: 1 each Levetiracetam (Keppra) 250 mg NG BID [facility] Stop: 07/14/17 08:59 Last Admin: 05/31/17 10:13 Dose: 250 mg Metoclopramide HCl (Reglan) 5 mg IVP TID [facility] Stop: 07/20/17 20:59 Last Admin: 05/31/17 10:14 Dose: 5 mg Metoprolol Tartrate (Lopressor) 50 mg GT Q8H [facility] Stop: 07/18/17 08:59 Last Admin: 05/31/17 10:16 Dose: Not Given Miscellaneous (Vte Chemical Prophylaxis Screen/ Admission) 1 ea MC PRN PRN PRN Reason: PROTOCOL Stop: 07/14/17 09:25 Miscellaneous (Clinical Monitoring) 1 ea MC DAILY PRN PRN Reason: RENAL Stop: 07/15/17 12:32 Miscellaneous (Probiotic Screen) 1 ea MC PRN PRN PRN Reason: PROTOCOL Stop: 07/16/17 09:33 Miscellaneous (Tpn Per Pharmacy) 1 ea MC PRN PRN PRN Reason: PROTOCOL Stop: 07/24/17 15:59 Pantoprazole Sodium (Protonix) 40 mg GT DAILY YESSICA Stop: 07/14/17 08:59 Last Admin: 05/31/17 10:14 Dose: 40 mg General: No acute distress, Other (open eyes but not interractive), no Alert HEENT: Atraumatic, EOMI (normal), Mucous membr. moist/pink Neck: Supple, +2 carotid pulse wo bruit Cardiovascular: Other (afib with fluctuating heart rate) Lungs: Other (occasional rhonchi) Abdomen: Soft Skin: no Rash Psych/Mental Status: Mood NL - Procedures Procedures: Procedures Procedure Code Date INSERT EMERGENCY AIRWAY 23355 05/13/17 INSERT TUNNELED CV CATH 31581 05/13/17 INSERTION OF ENDOTRACHEAL AIRWAY INTO TRACHEA, VIA OPENING [id number] 05/13/17 INSERTION OF INFUSION DEV INTO R FEMOR VEIN, PERC APPROACH [id number] 05/13/17 RESPIRATORY VENTILATION, GREATER THAN 96 CONSECUTIVE HOURS [id number] 05/13/17 VENT MGMT INPAT INIT DAY 46871 05/13/17 Assessment/Plan - Problem List Patient Problems: All Active Problems COUGH AND CONGESTION (Acute) Congestive heart failure (CHF) (Acute) I50.9 congestive heart failure (Acute) hypertension uncontrolled with bradycarda (Acute) renal failure (Acute) - Assessment Assessment: Current Active Problems Problem Status Onset COUGH AND CONGESTION Acute Acute respiratory failure vent dependant ( failed weaning trial) Renal failure improving on HD MDRO Pneumonia Afib RVR UTI CAD 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 HTN renal disease Seizure disorder - Plan Plan: Awaiting LTAC transfer Heparin sub Q Cardizem iv prn Metoprolol Tygacil per ID rec HD per nephrology rec Continue vent support PPN started for nutritional support Off vasopressor Feeding on hold due to tolerance issue Daughter was updated on pt's condition and plan of care Nutritional Asmnt/Malnutr-PDOC - Dietary Evaluation Malnutrition Findings (Please click <Entered> for more info): Nutritional Asmnt/Malnutrition Start: 05/15/17 13: 56 Text: Status: Complete Freq: Document 05/15/17 13:56 DARON (Rec: 05/15/17 14:18 [id number]) Nutritional Asmnt/Malnutrition Patient General Information Nutritional Screening High Risk Screening Diagnosis PNA, NICK, icnreasing renal failure, CVA, CHF, DM Pertinent Medical Hx/Surgical Hx CVA, dementia, afib, CAD, HTN, dyslipidemia, epilepsy, GERD, aspiration PNA, DM, CKD, dehydration, C. diff, anemia D Subjective Information 86 year old male from SNF. Pt greeted RD. Pt is overall thin , moderate to severe wasting to chest, clavicles, extremities. Observed Glytrol running at 60ml/hr x20hrs during visit. Unable to obtain CBW due to bedscale not calibrated. Discussed with YVETTE Farooq regarding tube feeding recommendations. Current Diet Order/ Nutrition Support Glytrol at 60ml/hr x 20hrs, providing 1200kcal 54g protein Pertinent Medications Lipitor, Novolog, Levemir, Cephulac, Morphine, Protonix, Nacl 0.9% Pertinent Labs 05/13: potassium 5.3H, BUN 80H, creatinine 2.4H, glucose 103 05/15: potassium WNL, BUN 70H, creatinine 2.4H, glucose 239H, A1c 6.1H, phosphorus 5.4H Nutritional Hx/Data Height 1.68 m Height (Calculated Centimeters) 167.6 Current Weight (lbs) 65.771 kg Weight (Calculated Kilograms) 65.8 Weight (Calculated Grams) 78828.9 [place] Body Weight 142 Weight Status Approriate GI Symptoms Difficult in: Swallowing Cultural/Ethnic/[employer] Belief [facility]: Glucerna 1.2 at 85ml/hr x 20hrs, providing 2040kcal, promote weight gain. Skin Integrity/Comment: Gee 12. Skin intact. Estimated Nutritional Goals Calories/Kcals/Kg CBW 145lb/65.9kg Kcals Calculated 1976-2307kcal (30-35kcal/kg) Protein Calculated 46-92g (0.7-1.4g/kg, renal vs moderate to severe wasting) Fluid: ml Per MD (renal) Nutritional Problem 2. Problem Problem Impaired nutrient utilization related to Etiology NICK, hx CKD aeb Signs/Symptoms: "increasing renal failure," potaasum 5.3H on adm, BUN 70H, concrete stone finisher 2.4H, phosphorus 5.4H 1. Problem Problem Inadequate intake from enteral nutrition infusion related to Etiology estimated nutritional needs aeb Signs/Symptoms: providing to meet 61% lower end kcal needs Intervention/Recommendation Comments 1. Recommend Novasource Renal at 50ml/hr x 20hrs, providing 2000kcal and 91g protein. Current order Glytrol at 60ml/ hr x 20hrs is only providing 1200kcal, pt recieves 2040kcal at [facility]. Expected Outcomes/Goals Expected Outcomes/Goals 1. Pt to meet at least 100% of estimated nutritional needs on tube feeding with tolerance .
[2017-05-31] MEDS: TPN 10%-70% CUSTOM IV SCH (16:21)
[2017-05-31] MEDS: Atorvastatin Calcium 10 MG TAB GT SCH (20:49)
[2017-06-01] MEDS: INSULIN ASPART SLIDING SCALE 100 UNITS/ML UNIT SUBQ SCH ×3 (00:31→11:45)
[2017-06-01] MEDS: Albuterol/Ipratropium Neb 3 ML AERS HHN SCH ×6 (03:33→23:24)
[2017-06-01 06:03] LABS: % EOSINOPHILS 0.8 % (0.0-5.0); % LYMPHOCYTES 10.7 % (20.0-50.0); % MONOCYTES 7.9 % (2.0-10.0); % NEUTROPHILS 80.6 % (40.0-80.0); HEMATOCRIT 24.1 % (39.0-49.0); HEMOGLOBIN 8.1 gm/dL (12.6-17.4); MEAN CELL VOLUME 82.3 fl (80-99); MEAN CORPUSCULAR HEMOGLOBIN 27.5 pg (27.0-31.0); MEAN CORPUSCULAR HGB CONC 33.5 pg (28.0-36.0); MEAN PLATELET VOLUME 9.5 fl; NEUTROPHILE ABSOLUTE 7.1 Th/cmm (1.8-8.0); PLATELET COUNT 172 Th/cmm (150-400); RED BLOOD COUNT 2.93 Mil/cmm (3.80-5.80); RED CELL DISTRIBUTION WIDTH 16.7 % (11.5-20.0); WHITE BLOOD COUNT 8.8 Th/cmm (4.8-10.8)
[2017-06-01 06:23] LABS: ANION GAP 9.1 (7.0-16.0); BUN - UREA NITROGEN 55 mg/dL (7-25); CALCIUM SERUM 8.9 mg/dL (8.6-10.3); CARBON DIOXIDE 27.3 mEq/L (21.0-31.0); CHLORIDE 103 mEq/L (98-107); CREATININE - SERUM 2.5 mg/dL (0.7-1.3); GLUCOSE 205 mg/dL (70-105); MAGNESIUM 1.8 mg/dL (1.9-2.7); PHOSPHOROUS 3.7 mg/dL (2.5-5.0); POTASSIUM SERUM 3.4 mEq/L (3.5-5.1); SODIUM SERUM 136 mEq/L (136-145)
[2017-06-01] MEDS: Budesonide 0.5 Mg/2 mL Ud HHN SCH ×3 (07:44→19:22)
[2017-06-01] MEDS: Lactobacillus Rhamnosus 10 Billion CFU Capsule PO SCH (08:08)
[2017-06-01] MEDS: Pantoprazole 40 mg/Packet GT SCH (08:08)
[2017-06-01] MEDS: Levetiracetam 500 mg/5mL 5mL UDC NG SCH ×2 (08:10→16:31)
[2017-06-01] MEDS: Metoclopramide 5 mg/mL 2mL Vial IVP SCH ×3 (08:26→21:57)
[2017-06-01] MEDS: Chlorhexidine Gluconate 0.12% 15mL Mouthwash MM SCH ×2 (08:28→19:54)
[2017-06-01] MEDS: TPN 10%-70% CUSTOM IV SCH (16:12)
--- NOTE | 2017-06-01 16:20 | General Progress Note ---
Subjective - Review of Systems Service Date: 06/01/17 Subjective: Patient seen and examined opens eyes on verbal pt's nurse was at the bedside Objective - Results Result Diagrams: 06/01/17 05:20 06/01/17 05:20 Recent Labs: Laboratory Last Values WBC 8.8 Th/cmm (4.8-10.8) 06/01/17 05:20 RBC 2.93 Mil/cmm (3.80-5.80) L 06/01/17 05:20 Hgb 8.1 gm/dL (12.6-17.4) L 06/01/17 05:20 Hct 24.1 % (39.0-49.0) L 06/01/17 05:20 MCV 82.3 fl (80-99) 06/01/17 05:20 MCH 27.5 pg (27.0-31.0) 06/01/17 05:20 MCHC Differential 33.5 pg (28.0-36.0) 06/01/17 05:20 RDW 16.7 % (11.5-20.0) 06/01/17 05:20 Plt Count 172 Th/cmm (150-400) 06/01/17 05:20 MPV 9.5 fl 06/01/17 05:20 Neutrophils % 80.6 % (40.0-80.0) H 06/01/17 05:20 Band Neutrophils % 2 % (0-10) 05/26/17 04:40 Lymphocytes % 10.7 % (20.0-50.0) L 06/01/17 05:20 Monocytes % 7.9 % (2.0-10.0) 06/01/17 05:20 Eosinophils % 0.8 % (0.0-5.0) 06/01/17 05:20 Basophils % 0.0 % (0.0-2.0) 06/01/17 05:20 Neutrophils (Manual) 89 % (40-80) H 05/26/17 04:40 Lymphocytes 5 % (20-50) L 05/26/17 04:40 Monocytes 4 % (2-10) 05/26/17 04:40 Eosinophils 0 % (0-5) 05/24/17 04:49 Basophils 0 % (0-3) 05/24/17 04:49 Metamyelocytes 1 % (0-0) H 05/22/17 04:44 Toxic Granulation 1+ 05/23/17 04:48 Platelet Estimate ADEQUATE (NORMAL) 05/26/17 04:40 Platelet Morphology NORMAL (NORMAL) 05/26/17 04:40 Anisocytosis 1+ 05/22/17 04:44 RBC Morph Micro Appear NORMAL (NORMAL) 05/26/17 04:40 Eos Smear Source URINE 05/14/17 18:00 Eos Smear Total Cells FEW EOSINOPHILS SEEN (NONE SEEN) 05/14/17 18:00 PT 11.9 SECONDS (9.5-11.5) H 05/13/17 17:42 INR 1.13 (0.5-1.4) 05/13/17 17:42 PTT (Actin FS) 30.5 SECONDS (26.0-38.0) 05/15/17 12:30 Specimen Source Arterial 05/30/17 11:08 Sample Site Left Radial 05/30/17 11:08 pH 7.40 (7.35-7.45) 05/30/17 11:08 pCO2 47.0 mmHg (35.0-45.0) H 05/30/17 11:08 pO2 95.0 mmHg (80.0-100.0) 05/30/17 11:08 HCO3 27.7 mEq/L (20.0-26.0) H 05/30/17 11:08 Base Excess 3.6 mEq/L (-3.0-3.0) H 05/30/17 11:08 O2 Saturation 97.0 % (92.0-100.0) 05/30/17 11:08 Feliciano Test YES 05/30/17 11:08 Vent Rate 12 05/30/17 11:08 Inspired O2 40 05/30/17 11:08 Tidal Volume 500 05/30/17 11:08 PEEP 0 05/30/17 11:08 Pressure (ins/psv/peep) 15 05/30/17 11:08 Critical Value E.MCNEAL 05/30/17 11:08 Sodium 136 mEq/L (136-145) 06/01/17 05:20 Potassium 3.4 mEq/L (3.5-5.1) L 06/01/17 05:20 Chloride 103 mEq/L (98-107) 06/01/17 05:20 Carbon Dioxide 27.3 mEq/L (21.0-31.0) 06/01/17 05:20 Anion Gap 9.1 (7.0-16.0) 06/01/17 05:20 BUN 55 mg/dL (7-25) H 06/01/17 05:20 Creatinine 2.5 mg/dL (0.7-1.3) H 06/01/17 05:20 Est GFR ( Amer) TNP 06/01/17 05:20 Est GFR (Non-Af Amer) TNP 06/01/17 05:20 BUN/Creatinine Ratio 22.0 06/01/17 05:20 Glucose 205 mg/dL (70-105) H 06/01/17 05:20 POC Glucose 218 MG/DL (70 - 105) H 06/01/17 11:40 Hemoglobin A1c % 6.1 % (4.0-6.0) H 05/15/17 06:30 Plasma/Ser Osmolality 301 mOsmol/kg (280-301) 05/14/17 18:20 Whole Bld Lactic Acid 1.58 mmol/L (0.60-1.99) 05/13/17 17:42 Uric Acid 7.7 mg/dL (4.4-7.6) H 05/15/17 06:30 Calcium 8.9 mg/dL (8.6-10.3) 06/01/17 05:20 Phosphorus 3.7 mg/dL (2.5-5.0) 06/01/17 05:20 Magnesium 1.8 mg/dL (1.9-2.7) L 06/01/17 05:20 Total Bilirubin 1.8 mg/dL (0.3-1.0) H 05/29/17 05:05 Direct Bilirubin 0.09 mg/dL (0.0-0.2) 05/19/17 04:50 AST 94 U/L (13-39) H 05/29/17 05:05 ALT 10 U/L (7-52) 05/29/17 05:05 Alkaline Phosphatase 238 U/L (34-104) H 05/29/17 05:05 Ammonia 65 umol/L (16-53) H 05/19/17 04:50 Creatine Kinase 35 U/L (30-223) 05/16/17 23:06 Troponin I 0.02 ng/mL (0.01-0.05) 05/16/17 23:06 B-Natriuretic Peptide 739.0 pg/mL (5.0-100.0) H 05/23/17 04:48 Total Protein 6.0 gm/dL (6.0-8.3) 05/29/17 05:05 Albumin 3.3 gm/dL (4.2-5.5) L 05/29/17 05:05 Globulin 2.7 gm/dL 05/29/17 05:05 Albumin/Globulin Ratio 1.2 (1.0-1.8) 05/29/17 05:05 Prealbumin 6 mg/dL (9-32) L 05/30/17 04:47 Triglycerides 53 mg/dL (<150) 05/30/17 04:47 Cholesterol 42 mg/dL (<200) 05/30/17 04:47 TSH 2.74 uIU/ml (0.34-5.60) 05/15/17 06:30 Urine Source CATH 05/13/17 19:50 Urine Color YELLOW 05/13/17 19:50 Urine Clarity CLOUDY (CLEAR) 05/13/17 19:50 Urine pH 6.0 05/13/17 19:50 Ur Specific [place] 1.015 (1.005-1.030) 05/13/17 19:50 Urine Protein 100 mg/dL (NEGATIVE) H 05/13/17 19:50 Urine Glucose (UA) NEGATIVE mg/dL (NEGATIVE) 05/13/17 19:50 Urine Ketones NEGATIVE mg/dL (NEGATIVE) 05/13/17 19:50 Urine Blood LARGE (NEGATIVE) H 05/13/17 19:50 Urine Nitrate NEGATIVE (NEGATIVE) 05/13/17 19:50 Urine Bilirubin NEGATIVE (NEGATIVE) 05/13/17 19:50 Urine Urobilinogen 0.2 E.U./dL (0.2 - 1.0) 05/13/17 19:50 Ur Leukocyte Esterase LARGE (NEGATIVE) H 05/13/17 19:50 Urine RBC 50-100 /hpf (0-5) H 05/13/17 19:50 Urine WBC >100 /hpf (0-5) H 05/13/17 19:50 Ur Epithelial Cells NONE SEEN /lpf (FEW) 05/13/17 19:50 Urine Bacteria NONE SEEN /hpf (NONE SEEN) 05/13/17 19:50 Ur Random Sodium 30 mmol/L 05/14/17 18:00 Urine Creatinine 36.4 mg/dl (Not Estab.) 05/14/17 18:00 Urine Microalbumin 363.5 ug/mL (Not Estab.) 05/14/17 18:00 Microalb/Creat Ratio 998.6 mg/g creat (0.0-30.0) H 05/14/17 18:00 Stool Occult Blood NEGATIVE (NEGATIVE) 05/25/17 17:49 Random Vancomycin 19.1 ug/mL (5.0-40.0) 05/19/17 04:50 Hepatitis A IgM Ab Negative (Negative) 05/21/17 04:46 Hep Bs Antigen Negative (Negative) 05/21/17 04:46 Hep B Core IgM Ab Negative (Negative) 05/21/17 04:46 Hepatitis C Antibody 0.1 s/co ratio (0.0-0.9) 05/21/17 04:46 Blood Type B POSITIVE 05/21/17 10:19 Antibody Screen NEGATIVE 05/21/17 10:19 Crossmatch See Detail 05/21/17 10:19 - Physical Exam Vitals and I&O: Vital Signs Temp 98.1 F 06/01/17 16:00 Pulse 82 06/01/17 16:00 Resp 18 06/01/17 16:00 BP 120/58 06/01/17 16:00 Pulse Ox 100 06/01/17 16:00 Intake & Output 05/31/17 06/01/17 06/01/17 18:59 06:59 18:59 Intake Total 1840 700 954 Output Total 3060 225 Balance -1220 475 954 Weight (lbs) 68.039 kg 87.18 kg 64.864 kg Intake: Intake, IV Amount 1060 20 954 Multivitamin Inj 10 ml In 960 954 Dextrose 70% 250 ml In Amino Acids 10% 500 ml In Intralipids 20% 200 ml @ 40 mls/hr IV .Q24H YESSICA Rx#:[id number] Tigecycline 50 mg In 100 20 Sodium Chloride 0.9% 100 ml @ 100 mls/hr IV Q12H YESSICA Rx#:[id number] Oral 0 Tube Feeding 100 TPN/PPN 480 480 Other 300 100 Output: Urine 460 225 Hemodialysis 2600 Other: # Bowel Movements 0 2 Active Medications: Current Medications Acetaminophen (Tylenol) 650 mg PO Q4HR PRN PRN Reason: Pain Or Fever above 101 Stop: 07/14/17 15:15 Last Admin: 05/23/17 15:07 Dose: 650 mg Albuterol/Ipratropium (Duoneb Neb) 3 ml HHN Q4HRT YESSICA Stop: 07/19/17 14:59 Last Admin: 06/01/17 15:28 Dose: 3 ml Atorvastatin Calcium (Lipitor) 10 mg GT HS YESSICA PRN Reason: Protocol Stop: 07/14/17 20:59 Last Admin: 05/31/17 20:49 Dose: 10 mg Budesonide (Pulmicort) 1 mg HHN BIDRT [facility] Stop: 07/19/17 18:59 Last Admin: 06/01/17 07:44 Dose: 1 mg Carbidopa/Levodopa (Sinemet 25mg-100 Mg) 1 tab PO TID [facility] Stop: 07/14/17 08:59 Last Admin: 06/01/17 13:13 Dose: 1 tab Chlorhexidine Gluconate (Peridex) 15 ml MM 0800,2000 [facility] Stop: 07/23/17 19:59 Last Admin: 06/01/17 08:28 Dose: 15 ml Clonidine HCl (Catapres) 0.1 mg PO Q6HR PRN PRN Reason: BP MAINTENANCE (PER PROTOCOL) Stop: 07/28/17 13:31 Last Admin: 05/29/17 21:04 Dose: 0.1 mg Colistimethate Sodium (Colistin) 75 mg HHN BIDRT [facility] Stop: 07/30/17 18:59 Last Admin: 06/01/17 07:44 Dose: Not Given Dextrose (D50w) 50 ml IVP PRN PRN; Protocol PRN Reason: HYPOGLYCEMIA Stop: 07/20/17 00:54 Last Admin: 05/22/17 23:34 Dose: 50 ml Diltiazem HCl (Cardizem) 10 mg IVP Q6HR PRN PRN Reason: HR >130 Stop: 07/22/17 17:09 Last Admin: 05/24/17 04:21 Dose: 10 mg Furosemide (Lasix) 40 mg IVP DAILY [facility] Stop: 07/18/17 08:59 Last Admin: 06/01/17 08:08 Dose: 40 mg Heparin Sodium (Porcine) (Heparin) 5,000 units SUBQ Q8HR [facility] Stop: 07/30/17 20:59 Last Admin: 06/01/17 13:09 Dose: 5,000 units Hydralazine HCl (Apresoline 20 Mg/Ml) 10 mg IV Q6HR PRN PRN Reason: BP MAINTENANCE (PER PROTOCOL) Stop: 07/30/17 13:09 Last Admin: 06/01/17 08:09 Dose: 10 mg Norepinephrine Bitartrate 8 mg (/ Dextrose) 258 mls @ 0 mls/hr IV TITR PRN; Protocol; Titrate PRN Reason: BP MAINTENANCE (PER PROTOCOL) Stop: 07/19/17 12:29 Last Admin: 05/21/17 01:06 Dose: 10 mcg/min, 19.35 mls/hr Phenylephrine HCl 10 mg/ (Sodium Chloride) 250 mls @ 0 mls/hr IV TITR YESSICA; Per Protocol PRN Reason: Protocol Stop: 07/19/17 12:59 Tigecycline 50 mg/ Sodium (Chloride) 100 mls @ 100 mls/hr IV Q12H [facility] Stop: 07/21/17 18:59 Last Admin: 06/01/17 06:15 Dose: 100 mls/hr Multivitamins/Minerals 10 ml/Dextrose/ Amino Acids/Electrolytes/ Fat Emulsion Intravenous 960 mls @ 40 mls/hr IV .Q24H [facility] Stop: 07/26/17 15:59 Last Admin: 06/01/17 16:12 Dose: 40 mls/hr Insulin Aspart (Novolog Insulin Sliding Scale) 0 units SUBQ Q6HR YESSICA PRN Reason: Protocol Stop: 07/14/17 00:00 Last Admin: 06/01/17 11:45 Dose: 2 units Isosorbide Dinitrate (Isordil) 20 mg GT TID [facility] Stop: 07/28/17 13:33 Last Admin: 06/01/17 13:13 Dose: 20 mg Lactobacillus Rhamnosus (Culturelle) 1 each PO DAILY [facility] Stop: 07/17/17 08:59 Last Admin: 06/01/17 08:08 Dose: 1 each Levetiracetam (Keppra) 250 mg NG BID [facility] Stop: 07/14/17 08:59 Last Admin: 06/01/17 08:10 Dose: 250 mg Metoclopramide HCl (Reglan) 5 mg IVP TID [facility] Stop: 07/20/17 20:59 Last Admin: 06/01/17 13:13 Dose: 5 mg Metoprolol Tartrate (Lopressor) 50 mg GT Q8H [facility] Stop: 07/18/17 08:59 Last Admin: 06/01/17 08:12 Dose: 50 mg Miscellaneous (Vte Chemical Prophylaxis Screen/ Admission) 1 ea [facility] PRN PRN PRN Reason: PROTOCOL Stop: 07/14/17 09:25 Miscellaneous (Clinical Monitoring) 1 ea [facility] DAILY PRN PRN Reason: RENAL Stop: 07/15/17 12:32 Miscellaneous (Probiotic Screen) 1 ea [facility] PRN PRN PRN Reason: PROTOCOL Stop: 07/16/17 09:33 Miscellaneous (Tpn Per Pharmacy) 1 ea [facility] PRN PRN PRN Reason: PROTOCOL Stop: 07/24/17 15:59 Pantoprazole Sodium (Protonix) 40 mg GT DAILY [facility] Stop: 07/14/17 08:59 Last Admin: 06/01/17 08:08 Dose: 40 mg General: No acute distress, Other (open eyes but not interractive), no Alert Cardiovascular: Other (afib with fluctuating heart rate) Lungs: Other (occasional rhonchi) Abdomen: Soft Extremities: Edema (no edema) Neurological: Sensation intact, Other (lethargic) Skin: no Rash Psych/Mental Status: Mood NL - Procedures Procedures: Procedures Procedure Code Date INSERT EMERGENCY AIRWAY 84186 05/13/17 INSERT TUNNELED CV CATH [id number] 05/13/17 INSERTION OF ENDOTRACHEAL AIRWAY INTO TRACHEA, VIA OPENING [id number] 05/13/17 INSERTION OF INFUSION DEV INTO R FEMOR VEIN, PERC APPROACH [id number] 05/13/17 RESPIRATORY VENTILATION, GREATER THAN 96 CONSECUTIVE HOURS [id number] 05/13/17 VENT MGMT INPAT INIT DAY 51097 05/13/17 Assessment/Plan - Problem List Patient Problems: All Active Problems COUGH AND CONGESTION (Acute) Congestive heart failure (CHF) (Acute) I50.9 congestive heart failure (Acute) hypertension uncontrolled with bradycarda (Acute) renal failure (Acute) - Assessment Assessment: Current Active Problems Problem Status Onset COUGH AND CONGESTION Acute Acute respiratory failure vent dependant ( failed weaning trial) Renal failure improving on HD MDRO Pneumonia Afib RVR UTI CAD 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 HTN renal disease Seizure disorder - Plan Plan: Awaiting LTAC transfer Heparin sub Q Cardizem iv prn Metoprolol Tygacil per ID rec HD per nephrology rec Continue vent support PPN started for nutritional support Off vasopressor Feeding on hold due to tolerance issue Daughter was updated on pt's condition and plan of care Nutritional Asmnt/Malnutr-PDOC - Dietary Evaluation Malnutrition Findings (Please click <Entered> for more info): Nutritional Asmnt/Malnutrition Start: 05/15/17 13: 56 Text: Status: Complete Freq: Document 05/15/17 13:56 GSUN (Rec: 05/15/17 14:18 GSUN [id number]) Nutritional Asmnt/Malnutrition Patient General Information Nutritional Screening High Risk Screening Diagnosis PNA, NICK, icnreasing renal failure, CVA, CHF, DM Pertinent Medical Hx/Surgical Hx CVA, dementia, afib, CAD, HTN, dyslipidemia, epilepsy, GERD, aspiration PNA, DM, CKD, dehydration, C. diff, anemia D Subjective Information 86 year old male from SNF. Pt greeted RD. Pt is overall thin , moderate to severe wasting to chest, clavicles, extremities. Observed Glytrol running at 60ml/hr x20hrs during visit. Unable to obtain CBW due to bedscale not calibrated. Discussed with YVETTE Farooq regarding tube feeding recommendations. Current Diet Order/ Nutrition Support Glytrol at 60ml/hr x 20hrs, providing 1200kcal 54g protein Pertinent Medications Lipitor, Novolog, Levemir, Cephulac, Morphine, Protonix, Nacl 0.9% Pertinent Labs 05/13: potassium 5.3H, BUN 80H, creatinine 2.4H, glucose 103 05/15: potassium WNL, BUN 70H, creatinine 2.4H, glucose 239H, A1c 6.1H, phosphorus 5.4H Nutritional Hx/Data Height 1.68 m Height (Calculated Centimeters) 167.6 Current Weight (lbs) 65.771 kg Weight (Calculated Kilograms) 65.8 Weight (Calculated Grams) 97158.9 [place] Body Weight 142 Weight Status Approriate GI Symptoms Difficult in: Swallowing Cultural/[facility]/[employer] [facility]: Glucerna 1.2 at 85ml/hr x 20hrs, providing 2040kcal, promote weight gain. Skin Integrity/Comment: Gee 12. Skin intact. Estimated Nutritional Goals Calories/Kcals/Kg CBW 145lb/65.9kg Kcals Calculated 1976-7kcal (30-35kcal/kg) Protein Calculated 46-92g (0.7-1.4g/kg, renal vs moderate to severe wasting) Fluid: ml Per MD (renal) Nutritional Problem 2. Problem Problem Impaired nutrient utilization related to Etiology NICK, hx CKD aeb Signs/Symptoms: "increasing renal failure," potaasum 5.3H on adm, BUN 70H, casket trimmer 2.4H, phosphorus 5.4H 1. Problem Problem Inadequate intake from enteral nutrition infusion related to Etiology estimated nutritional needs aeb Signs/Symptoms: providing to meet 61% lower end kcal needs Intervention/Recommendation Comments 1. Recommend Novasource Renal at 50ml/hr x 20hrs, providing 2000kcal and 91g protein. Current order Glytrol at 60ml/ hr x 20hrs is only providing 1200kcal, pt recieves 2040kcal at [facility]. Expected Outcomes/Goals Expected Outcomes/Goals 1. Pt to meet at least 100% of estimated nutritional needs on tube feeding with tolerance .
--- NOTE | 2017-06-01 16:53 | General Progress Note ---
Subjective - Review of Systems Service Date: 06/01/17 (more awake continued vent assist) Objective - Results Result Diagrams: 06/01/17 05:20 06/01/17 05:20 Recent Labs: Laboratory Last Values WBC 8.8 Th/cmm (4.8-10.8) 06/01/17 05:20 RBC 2.93 Mil/cmm (3.80-5.80) L 06/01/17 05:20 Hgb 8.1 gm/dL (12.6-17.4) L 06/01/17 05:20 Hct 24.1 % (39.0-49.0) L 06/01/17 05:20 MCV 82.3 fl (80-99) 06/01/17 05:20 MCH 27.5 pg (27.0-31.0) 06/01/17 05:20 MCHC Differential 33.5 pg (28.0-36.0) 06/01/17 05:20 RDW 16.7 % (11.5-20.0) 06/01/17 05:20 Plt Count 172 Th/cmm (150-400) 06/01/17 05:20 MPV 9.5 fl 06/01/17 05:20 Neutrophils % 80.6 % (40.0-80.0) H 06/01/17 05:20 Band Neutrophils % 2 % (0-10) 05/26/17 04:40 Lymphocytes % 10.7 % (20.0-50.0) L 06/01/17 05:20 Monocytes % 7.9 % (2.0-10.0) 06/01/17 05:20 Eosinophils % 0.8 % (0.0-5.0) 06/01/17 05:20 Basophils % 0.0 % (0.0-2.0) 06/01/17 05:20 Neutrophils (Manual) 89 % (40-80) H 05/26/17 04:40 Lymphocytes 5 % (20-50) L 05/26/17 04:40 Monocytes 4 % (2-10) 05/26/17 04:40 Eosinophils 0 % (0-5) 05/24/17 04:49 Basophils 0 % (0-3) 05/24/17 04:49 Metamyelocytes 1 % (0-0) H 05/22/17 04:44 Toxic Granulation 1+ 05/23/17 04:48 Platelet Estimate ADEQUATE (NORMAL) 05/26/17 04:40 Platelet Morphology NORMAL (NORMAL) 05/26/17 04:40 Anisocytosis 1+ 05/22/17 04:44 RBC Morph Micro Appear NORMAL (NORMAL) 05/26/17 04:40 Eos Smear Source URINE 05/14/17 18:00 Eos Smear Total Cells FEW EOSINOPHILS SEEN (NONE SEEN) 05/14/17 18:00 PT 11.9 SECONDS (9.5-11.5) H 05/13/17 17:42 INR 1.13 (0.5-1.4) 05/13/17 17:42 PTT (Actin FS) 30.5 SECONDS (26.0-38.0) 05/15/17 12:30 Specimen Source Arterial 05/30/17 11:08 Sample Site Left Radial 05/30/17 11:08 pH 7.40 (7.35-7.45) 05/30/17 11:08 pCO2 47.0 mmHg (35.0-45.0) H 05/30/17 11:08 pO2 95.0 mmHg (80.0-100.0) 05/30/17 11:08 HCO3 27.7 mEq/L (20.0-26.0) H 05/30/17 11:08 Base Excess 3.6 mEq/L (-3.0-3.0) H 05/30/17 11:08 O2 Saturation 97.0 % (92.0-100.0) 05/30/17 11:08 Feliciano Test YES 05/30/17 11:08 Vent Rate 12 05/30/17 11:08 Inspired O2 40 05/30/17 11:08 Tidal Volume 500 05/30/17 11:08 PEEP 0 05/30/17 11:08 Pressure (ins/psv/peep) 15 05/30/17 11:08 Critical Value E.MCNEAL 05/30/17 11:08 Sodium 136 mEq/L (136-145) 06/01/17 05:20 Potassium 3.4 mEq/L (3.5-5.1) L 06/01/17 05:20 Chloride 103 mEq/L (98-107) 06/01/17 05:20 Carbon Dioxide 27.3 mEq/L (21.0-31.0) 06/01/17 05:20 Anion Gap 9.1 (7.0-16.0) 06/01/17 05:20 BUN 55 mg/dL (7-25) H 06/01/17 05:20 Creatinine 2.5 mg/dL (0.7-1.3) H 06/01/17 05:20 Est GFR ( Amer) TNP 06/01/17 05:20 Est GFR (Non-Af Amer) TNP 06/01/17 05:20 BUN/Creatinine Ratio 22.0 06/01/17 05:20 Glucose 205 mg/dL (70-105) H 06/01/17 05:20 POC Glucose 218 MG/DL (70 - 105) H 06/01/17 11:40 Hemoglobin A1c % 6.1 % (4.0-6.0) H 05/15/17 06:30 Plasma/Ser Osmolality 301 mOsmol/kg (280-301) 05/14/17 18:20 Whole Bld Lactic Acid 1.58 mmol/L (0.60-1.99) 05/13/17 17:42 Uric Acid 7.7 mg/dL (4.4-7.6) H 05/15/17 06:30 Calcium 8.9 mg/dL (8.6-10.3) 06/01/17 05:20 Phosphorus 3.7 mg/dL (2.5-5.0) 06/01/17 05:20 Magnesium 1.8 mg/dL (1.9-2.7) L 06/01/17 05:20 Total Bilirubin 1.8 mg/dL (0.3-1.0) H 05/29/17 05:05 Direct Bilirubin 0.09 mg/dL (0.0-0.2) 05/19/17 04:50 AST 94 U/L (13-39) H 05/29/17 05:05 ALT 10 U/L (7-52) 05/29/17 05:05 Alkaline Phosphatase 238 U/L (34-104) H 05/29/17 05:05 Ammonia 65 umol/L (16-53) H 05/19/17 04:50 Creatine Kinase 35 U/L (30-223) 05/16/17 23:06 Troponin I 0.02 ng/mL (0.01-0.05) 05/16/17 23:06 B-Natriuretic Peptide 739.0 pg/mL (5.0-100.0) H 05/23/17 04:48 Total Protein 6.0 gm/dL (6.0-8.3) 05/29/17 05:05 Albumin 3.3 gm/dL (4.2-5.5) L 05/29/17 05:05 Globulin 2.7 gm/dL 05/29/17 05:05 Albumin/Globulin Ratio 1.2 (1.0-1.8) 05/29/17 05:05 Prealbumin 6 mg/dL (9-32) L 05/30/17 04:47 Triglycerides 53 mg/dL (<150) 05/30/17 04:47 Cholesterol 42 mg/dL (<200) 05/30/17 04:47 TSH 2.74 uIU/ml (0.34-5.60) 05/15/17 06:30 Urine Source CATH 05/13/17 19:50 Urine Color YELLOW 05/13/17 19:50 Urine Clarity CLOUDY (CLEAR) 05/13/17 19:50 Urine pH 6.0 05/13/17 19:50 Ur Specific [place] 1.015 (1.005-1.030) 05/13/17 19:50 Urine Protein 100 mg/dL (NEGATIVE) H 05/13/17 19:50 Urine Glucose (UA) NEGATIVE mg/dL (NEGATIVE) 05/13/17 19:50 Urine Ketones NEGATIVE mg/dL (NEGATIVE) 05/13/17 19:50 Urine Blood LARGE (NEGATIVE) H 05/13/17 19:50 Urine Nitrate NEGATIVE (NEGATIVE) 05/13/17 19:50 Urine Bilirubin NEGATIVE (NEGATIVE) 05/13/17 19:50 Urine Urobilinogen 0.2 E.U./dL (0.2 - 1.0) 05/13/17 19:50 Ur Leukocyte Esterase LARGE (NEGATIVE) H 05/13/17 19:50 Urine RBC 50-100 /hpf (0-5) H 05/13/17 19:50 Urine WBC >100 /hpf (0-5) H 05/13/17 19:50 Ur Epithelial Cells NONE SEEN /lpf (FEW) 05/13/17 19:50 Urine Bacteria NONE SEEN /hpf (NONE SEEN) 05/13/17 19:50 Ur Random Sodium 30 mmol/L 05/14/17 18:00 Urine Creatinine 36.4 mg/dl (Not Estab.) 05/14/17 18:00 Urine Microalbumin 363.5 ug/mL (Not Estab.) 05/14/17 18:00 Microalb/Creat Ratio 998.6 mg/g creat (0.0-30.0) H 05/14/17 18:00 Stool Occult Blood NEGATIVE (NEGATIVE) 05/25/17 17:49 Random Vancomycin 19.1 ug/mL (5.0-40.0) 05/19/17 04:50 Hepatitis A IgM Ab Negative (Negative) 05/21/17 04:46 Hep Bs Antigen Negative (Negative) 05/21/17 04:46 Hep B Core IgM Ab Negative (Negative) 05/21/17 04:46 Hepatitis C Antibody 0.1 s/co ratio (0.0-0.9) 05/21/17 04:46 Blood Type B POSITIVE 05/21/17 10:19 Antibody Screen NEGATIVE 05/21/17 10:19 Crossmatch See Detail 05/21/17 10:19 - Physical Exam Vitals and I&O: Vital Signs Temp 98.1 F 06/01/17 16:00 Pulse 80 06/01/17 16:30 Resp 18 06/01/17 16:00 BP 130/66 06/01/17 16:30 Pulse Ox 100 06/01/17 16:00 Intake & Output 05/31/17 06/01/17 06/01/17 18:59 06:59 18:59 Intake Total 1840 700 954 Output Total 3060 225 Balance -1220 475 954 Weight (lbs) 68.039 kg 87.18 kg 64.864 kg Intake: Intake, IV Amount 1060 20 954 Multivitamin Inj 10 ml In 960 954 Dextrose 70% 250 ml In Amino Acids 10% 500 ml In Intralipids 20% 200 ml @ 40 mls/hr IV .Q24H YESSICA Rx#:[id number] Tigecycline 50 mg In 100 20 Sodium Chloride 0.9% 100 ml @ 100 mls/hr IV Q12H YESSICA Rx#:[id number] Oral 0 Tube Feeding 100 TPN/PPN 480 480 Other 300 100 Output: Urine 460 225 Hemodialysis 2600 Other: # Bowel Movements 0 2 Active Medications: Current Medications Acetaminophen (Tylenol) 650 mg PO Q4HR PRN PRN Reason: Pain Or Fever above 101 Stop: 07/14/17 15:15 Last Admin: 05/23/17 15:07 Dose: 650 mg Albuterol/Ipratropium (Duoneb Neb) 3 ml HHN Q4HRT [facility] Stop: 07/19/17 14:59 Last Admin: 06/01/17 15:28 Dose: 3 ml Atorvastatin Calcium (Lipitor) 10 mg GT HS YESSICA PRN Reason: Protocol Stop: 07/14/17 20:59 Last Admin: 05/31/17 20:49 Dose: 10 mg Budesonide (Pulmicort) 1 mg HHN BIDRT [facility] Stop: 07/19/17 18:59 Last Admin: 06/01/17 07:44 Dose: 1 mg Carbidopa/Levodopa (Sinemet 25mg-100 Mg) 1 tab PO TID [facility] Stop: 07/14/17 08:59 Last Admin: 06/01/17 13:13 Dose: 1 tab Chlorhexidine Gluconate (Peridex) 15 ml MM 0800,1999 [facility] Stop: 07/23/17 19:59 Last Admin: 06/01/17 08:28 Dose: 15 ml Clonidine HCl (Catapres) 0.1 mg PO Q6HR PRN PRN Reason: BP MAINTENANCE (PER PROTOCOL) Stop: 07/28/17 13:31 Last Admin: 05/29/17 21:04 Dose: 0.1 mg Colistimethate Sodium (Colistin) 75 mg HHN BIDRT [facility] Stop: 07/30/17 18:59 Last Admin: 06/01/17 07:44 Dose: Not Given Dextrose (D50w) 50 ml IVP PRN PRN; Protocol PRN Reason: HYPOGLYCEMIA Stop: 07/20/17 00:54 Last Admin: 05/22/17 23:34 Dose: 50 ml Diltiazem HCl (Cardizem) 10 mg IVP Q6HR PRN PRN Reason: HR >130 Stop: 07/22/17 17:09 Last Admin: 05/24/17 04:21 Dose: 10 mg Furosemide (Lasix) 40 mg IVP DAILY [facility] Stop: 07/18/17 08:59 Last Admin: 06/01/17 08:08 Dose: 40 mg Heparin Sodium (Porcine) (Heparin) 5,000 units SUBQ Q8HR YESSICA Stop: 07/30/17 20:59 Last Admin: 06/01/17 13:09 Dose: 5,000 units Heparin Sodium (Porcine) (Heparin Sodium) 0 units HD UD [facility] Stop: 06/03/17 00:00 Hydralazine HCl (Apresoline 20 Mg/Ml) 10 mg IV Q6HR PRN PRN Reason: BP MAINTENANCE (PER PROTOCOL) Stop: 07/30/17 13:09 Last Admin: 06/01/17 08:09 Dose: 10 mg Norepinephrine Bitartrate 8 mg (/ Dextrose) 258 mls @ 0 mls/hr IV TITR PRN; Protocol; Titrate PRN Reason: BP MAINTENANCE (PER PROTOCOL) Stop: 07/19/17 12:29 Last Admin: 05/21/17 01:06 Dose: 10 mcg/min, 19.35 mls/hr Phenylephrine HCl 10 mg/ (Sodium Chloride) 250 mls @ 0 mls/hr IV TITR YESSICA; Per Protocol PRN Reason: Protocol Stop: 07/19/17 12:59 Tigecycline 50 mg/ Sodium (Chloride) 100 mls @ 100 mls/hr IV Q12H [facility] Stop: 07/21/17 18:59 Last Admin: 06/01/17 06:15 Dose: 100 mls/hr Multivitamins/Minerals 10 ml/Dextrose/ Amino Acids/Electrolytes/ Fat Emulsion Intravenous 960 mls @ 40 mls/hr IV .Q24H [facility] Stop: 07/26/17 15:59 Last Admin: 06/01/17 16:12 Dose: 40 mls/hr Albumin Human (Albutein 25%) 12.5 gm in 50 mls @ 50 mls/hr IV X1 PRN PRN Reason: BP Support During HD Stop: 06/02/17 23:59 Insulin Aspart (Novolog Insulin Sliding Scale) 0 units SUBQ Q6HR YESSICA PRN Reason: Protocol Stop: 07/14/17 00:00 Last Admin: 06/01/17 11:45 Dose: 2 units Isosorbide Dinitrate (Isordil) 20 mg GT TID [facility] Stop: 07/28/17 13:33 Last Admin: 06/01/17 13:13 Dose: 20 mg Lactobacillus Rhamnosus (Culturelle) 1 each PO DAILY [facility] Stop: 07/17/17 08:59 Last Admin: 06/01/17 08:08 Dose: 1 each Levetiracetam (Keppra) 250 mg NG BID YESSICA Stop: 07/14/17 08:59 Last Admin: 06/01/17 16:31 Dose: 250 mg Metoclopramide HCl (Reglan) 5 mg IVP TID YESSICA Stop: 07/20/17 20:59 Last Admin: 06/01/17 13:13 Dose: 5 mg Metoprolol Tartrate (Lopressor) 50 mg GT Q8H YESSICA Stop: 07/18/17 08:59 Last Admin: 06/01/17 16:30 Dose: 50 mg Miscellaneous (Vte Chemical Prophylaxis Screen/ Admission) 1 ea PRN PRN PRN Reason: PROTOCOL Stop: 07/14/17 09:25 Miscellaneous (Clinical Monitoring) 1 ea DAILY PRN PRN Reason: RENAL Stop: 07/15/17 12:32 Miscellaneous (Probiotic Screen) 1 ea PRN PRN PRN Reason: PROTOCOL Stop: 07/16/17 09:33 Miscellaneous (Tpn Per Pharmacy) 1 ea PRN PRN PRN Reason: PROTOCOL Stop: 07/24/17 15:59 Pantoprazole Sodium (Protonix) 40 mg GT DAILY [facility] Stop: 07/14/17 08:59 Last Admin: 06/01/17 08:08 Dose: 40 mg General: No acute distress, Other (open eyes but not interractive), no Alert HEENT: Atraumatic, EOMI (normal), Mucous membr. moist/pink Neck: Supple, +2 carotid pulse wo bruit Cardiovascular: Other (afib with fluctuating heart rate) Lungs: Other (occasional rhonchi) Abdomen: Soft Extremities: Edema (no edema) Neurological: Sensation intact, Other (lethargic) Skin: no Rash Psych/Mental Status: Mood NL - Procedures Procedures: Procedures Procedure Code Date INSERT EMERGENCY AIRWAY 37801 05/13/17 INSERT TUNNELED CV CATH [id number] 05/13/17 INSERTION OF ENDOTRACHEAL AIRWAY INTO TRACHEA, VIA OPENING [id number] 05/13/17 INSERTION OF INFUSION DEV INTO R FEMOR VEIN, PERC APPROACH [id number] 05/13/17 RESPIRATORY VENTILATION, GREATER THAN 96 CONSECUTIVE HOURS [id number] 05/13/17 VENT MGMT INPAT INIT DAY 13602 05/13/17 Assessment/Plan - Problem List Patient Problems: All Active Problems COUGH AND CONGESTION (Acute) Congestive heart failure (CHF) (Acute) I50.9 congestive heart failure (Acute) hypertension uncontrolled with bradycarda (Acute) renal failure (Acute) - Plan Plan: hemo tomorrow minimal fluid plan removal blood presure well controlled bardycardia resoveled likely med induced Nutritional Asmnt/Malnutr-PDOC - Dietary Evaluation Malnutrition Findings (Please click <Entered> for more info): Nutritional Asmnt/Malnutrition Start: 05/15/17 13: 56 Text: Status: Complete Freq: Document 05/15/17 13:56 GSUN (Rec: 05/15/17 14:18 GSUN [id number]) Nutritional Asmnt/Malnutrition Patient General Information Nutritional Screening High Risk Screening Diagnosis PNA, NICK, icnreasing renal failure, CVA, CHF, DM Pertinent Medical Hx/Surgical Hx CVA, dementia, afib, CAD, HTN, dyslipidemia, epilepsy, GERD, aspiration PNA, DM, CKD, dehydration, C. diff, anemia D Subjective Information 86 year old male from SNF. Pt greeted RD. Pt is overall thin , moderate to severe wasting to chest, clavicles, extremities. Observed Glytrol running at 60ml/hr x20hrs during visit. Unable to obtain CBW due to bedscale not calibrated. Discussed with YVETTE Farooq regarding tube feeding recommendations. Current Diet Order/ Nutrition Support Glytrol at 60ml/hr x 20hrs, providing 1200kcal 54g protein Pertinent Medications Lipitor, Novolog, Levemir, Cephulac, Morphine, Protonix, Nacl 0.9% Pertinent Labs 05/13: potassium 5.3H, BUN 80H, creatinine 2.4H, glucose 103 05/15: potassium WNL, BUN 70H, creatinine 2.4H, glucose 239H, A1c 6.1H, phosphorus 5.4H Nutritional Hx/Data Height 1.68 m Height (Calculated Centimeters) 167.6 Current Weight (lbs) 65.771 kg Weight (Calculated Kilograms) 65.8 Weight (Calculated Grams) 06186.9 [place] Body Weight 142 Weight Status Approriate GI Symptoms Difficult in: Swallowing Cultural/Ethnic/[employer] Belief [facility] SN[facility]: Glucerna 1.2 at 85ml/hr x 20hrs, providing 2040kcal, promote weight gain. Skin Integrity/Comment: Gee 12. Skin intact. Estimated Nutritional Goals Calories/Kcals/Kg CBW 145lb/65.9kg Kcals Calculated 1976-7kcal (30-35kcal/kg) Protein Calculated 46-92g (0.7-1.4g/kg, renal vs moderate to severe wasting) Fluid: ml Per MD (renal) Nutritional Problem 2. 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 Problem Problem Inadequate intake from enteral nutrition infusion related to Etiology estimated nutritional needs aeb Signs/Symptoms: providing to meet 61% lower end kcal needs Intervention/Recommendation Comments 1. Recommend Novasource Renal at 50ml/hr x 20hrs, providing 2000kcal and 91g protein. Current order Glytrol at 60ml/ hr x 20hrs is only providing 1200kcal, pt recieves 2040kcal at [facility]. Expected Outcomes/Goals Expected Outcomes/Goals 1. Pt to meet at least 100% of estimated nutritional needs on tube feeding with tolerance .
[2017-06-01] MEDS: Atorvastatin Calcium 10 MG TAB GT SCH (21:57)
[2017-06-02] MEDS ORDERED: Albumin 25% 12.5gm/50mL 12.5 GM/50 ML BTL IV ONE
[2017-06-02] MEDS: Albuterol/Ipratropium Neb 3 ML AERS HHN SCH ×6 (03:00→22:45)
[2017-06-02] MEDS: INSULIN ASPART SLIDING SCALE 100 UNITS/ML UNIT SUBQ SCH ×4 (06:42→17:14)
[2017-06-02] MEDS: Budesonide 0.5 Mg/2 mL Ud HHN SCH ×2 (07:01→19:02)
[2017-06-02 07:12] LABS: ALB/GLOB RATIO 1.3 (1.0-1.8); ALKALINE PHOSPHATASE 451 U/L (34-104); BILIRUBIN,TOTAL 2.1 mg/dL (0.3-1.0); BUN - UREA NITROGEN 71 mg/dL (7-25); BUN/CREATININE RATIO 22.9; CALCIUM SERUM 9.2 mg/dL (8.6-10.3); CARBON DIOXIDE 26.7 mEq/L (21.0-31.0); CHLORIDE 101 mEq/L (98-107); CREATININE - SERUM 3.1 mg/dL (0.7-1.3); GLUCOSE 143 mg/dL (70-105); MAGNESIUM 1.8 mg/dL (1.9-2.7); POTASSIUM SERUM 3.7 mEq/L (3.5-5.1); SGOT 51 U/L (13-39); SGPT/ALT 8 U/L (7-52); SODIUM SERUM 134 mEq/L (136-145)
[2017-06-02] MEDS: Levetiracetam 500 mg/5mL 5mL UDC NG SCH ×2 (08:13→17:00)
[2017-06-02] MEDS: Lactobacillus Rhamnosus 10 Billion CFU Capsule PO SCH (08:13)
[2017-06-02] MEDS: Metoclopramide 5 mg/mL 2mL Vial IVP SCH ×3 (08:13→21:10)
[2017-06-02] MEDS: Pantoprazole 40 mg/Packet GT SCH (08:13)
[2017-06-02] MEDS ORDERED: Heparin Sod 1,000 Units/mL 10ml HD SCH ×2 (10:15)
[2017-06-02] MEDS: Chlorhexidine Gluconate 0.12% 15mL Mouthwash MM SCH ×2 (11:25→19:56)
--- NOTE | 2017-06-02 12:02 | Infectious Disease Prog Note ---
Infectious Disease Subjective - Review of Systems Service Date: 06/02/17 Subjective: No new change. No fever. intubated orally, on vent support. Infectious Disease Objective - Results Result Diagrams: 06/01/17 05:20 06/02/17 06:30 Recent Labs: Laboratory Last Values WBC 8.8 Th/cmm (4.8-10.8) 06/01/17 05:20 RBC 2.93 Mil/cmm (3.80-5.80) L 06/01/17 05:20 Hgb 8.1 gm/dL (12.6-17.4) L 06/01/17 05:20 Hct 24.1 % (39.0-49.0) L 06/01/17 05:20 MCV 82.3 fl (80-99) 06/01/17 05:20 MCH 27.5 pg (27.0-31.0) 06/01/17 05:20 MCHC Differential 33.5 pg (28.0-36.0) 06/01/17 05:20 RDW 16.7 % (11.5-20.0) 06/01/17 05:20 Plt Count 172 Th/cmm (150-400) 06/01/17 05:20 MPV 9.5 fl 06/01/17 05:20 Neutrophils % 80.6 % (40.0-80.0) H 06/01/17 05:20 Band Neutrophils % 2 % (0-10) 05/26/17 04:40 Lymphocytes % 10.7 % (20.0-50.0) L 06/01/17 05:20 Monocytes % 7.9 % (2.0-10.0) 06/01/17 05:20 Eosinophils % 0.8 % (0.0-5.0) 06/01/17 05:20 Basophils % 0.0 % (0.0-2.0) 06/01/17 05:20 Neutrophils (Manual) 89 % (40-80) H 05/26/17 04:40 Lymphocytes 5 % (20-50) L 05/26/17 04:40 Monocytes 4 % (2-10) 05/26/17 04:40 Eosinophils 0 % (0-5) 05/24/17 04:49 Basophils 0 % (0-3) 05/24/17 04:49 Metamyelocytes 1 % (0-0) H 05/22/17 04:44 Toxic Granulation 1+ 05/23/17 04:48 Platelet Estimate ADEQUATE (NORMAL) 05/26/17 04:40 Platelet Morphology NORMAL (NORMAL) 05/26/17 04:40 Anisocytosis 1+ 05/22/17 04:44 RBC Morph Micro Appear NORMAL (NORMAL) 05/26/17 04:40 Eos Smear Source URINE 05/14/17 18:00 Eos Smear Total Cells FEW EOSINOPHILS SEEN (NONE SEEN) 05/14/17 18:00 PT 11.9 SECONDS (9.5-11.5) H 05/13/17 17:42 INR 1.13 (0.5-1.4) 05/13/17 17:42 PTT (Actin FS) 30.5 SECONDS (26.0-38.0) 05/15/17 12:30 Specimen Source Arterial 05/30/17 11:08 Sample Site Left Radial 05/30/17 11:08 pH 7.40 (7.35-7.45) 05/30/17 11:08 pCO2 47.0 mmHg (35.0-45.0) H 05/30/17 11:08 pO2 95.0 mmHg (80.0-100.0) 05/30/17 11:08 HCO3 27.7 mEq/L (20.0-26.0) H 05/30/17 11:08 Base Excess 3.6 mEq/L (-3.0-3.0) H 05/30/17 11:08 O2 Saturation 97.0 % (92.0-100.0) 05/30/17 11:08 Feliciano Test YES 05/30/17 11:08 Vent Rate 12 05/30/17 11:08 Inspired O2 40 05/30/17 11:08 Tidal Volume 500 05/30/17 11:08 PEEP 0 05/30/17 11:08 Pressure (ins/psv/peep) 15 05/30/17 11:08 Critical Value E.MCNEAL 05/30/17 11:08 Sodium 134 mEq/L (136-145) L 06/02/17 06:30 Potassium 3.7 mEq/L (3.5-5.1) 06/02/17 06:30 Chloride 101 mEq/L (98-107) 06/02/17 06:30 Carbon Dioxide 26.7 mEq/L (21.0-31.0) 06/02/17 06:30 Anion Gap 10.0 (7.0-16.0) 06/02/17 06:30 BUN 71 mg/dL (7-25) H 06/02/17 06:30 Creatinine 3.1 mg/dL (0.7-1.3) H 06/02/17 06:30 Est GFR ( Amer) TNP 06/02/17 06:30 Est GFR (Non-Af Amer) TNP 06/02/17 06:30 BUN/Creatinine Ratio 22.9 06/02/17 06:30 Glucose 143 mg/dL (70-105) H 06/02/17 06:30 POC Glucose 142 MG/DL (70 - 105) H 06/02/17 06:05 Hemoglobin A1c % 6.1 % (4.0-6.0) H 05/15/17 06:30 Plasma/Ser Osmolality 301 mOsmol/kg (280-301) 05/14/17 18:20 Whole Bld Lactic Acid 1.58 mmol/L (0.60-1.99) 05/13/17 17:42 Uric Acid 7.7 mg/dL (4.4-7.6) H 05/15/17 06:30 Calcium 9.2 mg/dL (8.6-10.3) 06/02/17 06:30 Phosphorus 4.0 mg/dL (2.5-5.0) 06/02/17 06:30 Magnesium 1.8 mg/dL (1.9-2.7) L 06/02/17 06:30 Total Bilirubin 2.1 mg/dL (0.3-1.0) H 06/02/17 06:30 Direct Bilirubin 0.09 mg/dL (0.0-0.2) 05/19/17 04:50 AST 51 U/L (13-39) H 06/02/17 06:30 ALT 8 U/L (7-52) 06/02/17 06:30 Alkaline Phosphatase 451 U/L (34-104) H 06/02/17 06:30 Ammonia 65 umol/L (16-53) H 05/19/17 04:50 Creatine Kinase 35 U/L (30-223) 05/16/17 23:06 Troponin I 0.02 ng/mL (0.01-0.05) 05/16/17 23:06 B-Natriuretic Peptide 739.0 pg/mL (5.0-100.0) H 05/23/17 04:48 Total Protein 5.5 gm/dL (6.0-8.3) L 06/02/17 06:30 Albumin 3.1 gm/dL (4.2-5.5) L 06/02/17 06:30 Globulin 2.4 gm/dL 06/02/17 06:30 Albumin/Globulin Ratio 1.3 (1.0-1.8) 06/02/17 06:30 Prealbumin 6 mg/dL (9-32) L 05/30/17 04:47 Triglycerides 53 mg/dL (<150) 05/30/17 04:47 Cholesterol 42 mg/dL (<200) 05/30/17 04:47 TSH 2.74 uIU/ml (0.34-5.60) 05/15/17 06:30 Urine Source CATH 05/13/17 19:50 Urine Color YELLOW 05/13/17 19:50 Urine Clarity CLOUDY (CLEAR) 05/13/17 19:50 Urine pH 6.0 05/13/17 19:50 Ur Specific Dixon 1.015 (1.005-1.030) 05/13/17 19:50 Urine Protein 100 mg/dL (NEGATIVE) H 05/13/17 19:50 Urine Glucose (UA) NEGATIVE mg/dL (NEGATIVE) 05/13/17 19:50 Urine Ketones NEGATIVE mg/dL (NEGATIVE) 05/13/17 19:50 Urine Blood LARGE (NEGATIVE) H 05/13/17 19:50 Urine Nitrate NEGATIVE (NEGATIVE) 05/13/17 19:50 Urine Bilirubin NEGATIVE (NEGATIVE) 05/13/17 19:50 Urine Urobilinogen 0.2 E.U./dL (0.2 - 1.0) 05/13/17 19:50 Ur Leukocyte Esterase LARGE (NEGATIVE) H 05/13/17 19:50 Urine RBC 50-100 /hpf (0-5) H 05/13/17 19:50 Urine WBC >100 /hpf (0-5) H 05/13/17 19:50 Ur Epithelial Cells NONE SEEN /lpf (FEW) 05/13/17 19:50 Urine Bacteria NONE SEEN /hpf (NONE SEEN) 05/13/17 19:50 Ur Random Sodium 30 mmol/L 05/14/17 18:00 Urine Creatinine 36.4 mg/dl (Not Estab.) 05/14/17 18:00 Urine Microalbumin 363.5 ug/mL (Not Estab.) 05/14/17 18:00 Microalb/Creat Ratio 998.6 mg/g creat (0.0-30.0) H 05/14/17 18:00 Stool Occult Blood NEGATIVE (NEGATIVE) 05/25/17 17:49 Random Vancomycin 19.1 ug/mL (5.0-40.0) 05/19/17 04:50 Hepatitis A IgM Ab Negative (Negative) 05/21/17 04:46 Hep Bs Antigen Negative (Negative) 05/21/17 04:46 Hep B Core IgM Ab Negative (Negative) 05/21/17 04:46 Hepatitis C Antibody 0.1 s/co ratio (0.0-0.9) 05/21/17 04:46 Blood Type B POSITIVE 05/21/17 10:19 Antibody Screen NEGATIVE 05/21/17 10:19 Crossmatch See Detail 05/21/17 10:19 - Physical Exam Vitals and I&O: Vital Signs Temp 98.4 F 06/02/17 08:00 Pulse 72 06/02/17 11:17 Resp 12 06/02/17 08:00 BP 159/66 06/02/17 11:09 Pulse Ox 100 06/02/17 11:17 Intake & Output 06/01/17 06/02/17 06/02/17 18:59 06:59 18:59 Intake Total 1204 802 Output Total 400 450 Balance 804 352 Weight (lbs) 64.864 kg 65.317 kg 65.317 kg Intake: Intake, IV Amount 1054 652 Multivitamin Inj 10 ml In 954 552 Dextrose 70% 250 ml In Amino Acids 10% 500 ml In Intralipids 20% 200 ml @ 40 mls/hr IV .Q24H YESSICA Rx#:[id number] Tigecycline 50 mg In 100 100 Sodium Chloride 0.9% 100 ml @ 100 mls/hr IV Q12H YESSICA Rx#:[id number] Oral 0 Other 150 150 Output: Urine 400 450 Other: # Bowel Movements 0 2 Active Medications: Current Medications Acetaminophen (Tylenol) 650 mg PO Q4HR PRN PRN Reason: Pain Or Fever above 101 Stop: 07/14/17 15:15 Last Admin: 05/23/17 15:07 Dose: 650 mg Albuterol/Ipratropium (Duoneb Neb) 3 ml HHN Q4HRT [facility] Stop: 07/19/17 14:59 Last Admin: 06/02/17 11:16 Dose: 3 ml Atorvastatin Calcium (Lipitor) 10 mg GT HS YESSICA PRN Reason: Protocol Stop: 07/14/17 20:59 Last Admin: 06/01/17 21:57 Dose: 10 mg Budesonide (Pulmicort) 1 mg HHN BIDRT [facility] Stop: 07/19/17 18:59 Last Admin: 06/02/17 07:01 Dose: 1 mg Carbidopa/Levodopa (Sinemet 25mg-100 Mg) 1 tab PO TID [facility] Stop: 07/14/17 08:59 Last Admin: 06/02/17 08:13 Dose: 1 tab Chlorhexidine Gluconate (Peridex) 15 ml MM 0800,2000 [facility] Stop: 07/23/17 19:59 Last Admin: 06/02/17 11:25 Dose: 15 ml Clonidine HCl (Catapres) 0.1 mg PO Q6HR PRN PRN Reason: BP MAINTENANCE (PER PROTOCOL) Stop: 07/28/17 13:31 Last Admin: 05/29/17 21:04 Dose: 0.1 mg Colistimethate Sodium (Colistin) 75 mg HHN BIDRT [facility] Stop: 07/30/17 18:59 Last Admin: 06/02/17 07:05 Dose: 75 mg Dextrose (D50w) 50 ml IVP PRN PRN; Protocol PRN Reason: HYPOGLYCEMIA Stop: 07/20/17 00:54 Last Admin: 05/22/17 23:34 Dose: 50 ml Diltiazem HCl (Cardizem) 10 mg IVP Q6HR PRN PRN Reason: HR >130 Stop: 07/22/17 17:09 Last Admin: 05/24/17 04:21 Dose: 10 mg Furosemide (Lasix) 40 mg IVP DAILY [facility] Stop: 07/18/17 08:59 Last Admin: 06/02/17 11:09 Dose: 40 mg Heparin Sodium (Porcine) (Heparin Sodium) 0 units HD UD [facility] Stop: 06/03/17 00:00 Last Admin: 06/02/17 11:12 Dose: 2,000 units Hydralazine HCl (Apresoline 20 Mg/Ml) 10 mg IV Q6HR PRN PRN Reason: BP MAINTENANCE (PER PROTOCOL) Stop: 07/30/17 13:09 Last Admin: 06/01/17 08:09 Dose: 10 mg Norepinephrine Bitartrate 8 mg (/ Dextrose) 258 mls @ 0 mls/hr IV TITR PRN; Protocol; Titrate PRN Reason: BP MAINTENANCE (PER PROTOCOL) Stop: 07/19/17 12:29 Last Admin: 05/21/17 01:06 Dose: 10 mcg/min, 19.35 mls/hr Phenylephrine HCl 10 mg/ (Sodium Chloride) 250 mls @ 0 mls/hr IV TITR YESSICA; Per Protocol PRN Reason: Protocol Stop: 07/19/17 12:59 Tigecycline 50 mg/ Sodium (Chloride) 100 mls @ 100 mls/hr IV Q12H [facility] Stop: 07/21/17 18:59 Last Admin: 06/02/17 06:41 Dose: 100 mls/hr Multivitamins/Minerals 10 ml/Dextrose/ Amino Acids/Electrolytes/ Fat Emulsion Intravenous 960 mls @ 40 mls/hr IV .Q24H [facility] Stop: 07/26/17 15:59 Last Infusion: 06/02/17 06:00 Dose: 40 mls/hr Insulin Aspart (Novolog Insulin Sliding Scale) 0 units SUBQ Q6HR YESSICA PRN Reason: Protocol Stop: 07/14/17 00:00 Last Admin: 06/02/17 06:42 Dose: Not Given Isosorbide Dinitrate (Isordil) 20 mg GT TID [facility] Stop: 07/28/17 13:33 Last Admin: 06/02/17 11:09 Dose: 20 mg Lactobacillus Rhamnosus (Culturelle) 1 each PO DAILY [facility] Stop: 07/17/17 08:59 Last Admin: 06/02/17 08:13 Dose: 1 each Levetiracetam (Keppra) 250 mg NG BID [facility] Stop: 07/14/17 08:59 Last Admin: 06/02/17 08:13 Dose: 250 mg Metoclopramide HCl (Reglan) 5 mg IVP TID [facility] Stop: 07/20/17 20:59 Last Admin: 06/02/17 08:13 Dose: 5 mg Metoprolol Tartrate (Lopressor) 50 mg GT Q8H YESSICA Stop: 07/18/17 08:59 Last Admin: 06/02/17 11:09 Dose: 50 mg Miscellaneous (Vte Chemical Prophylaxis Screen/ Admission) 1 ea PRN PRN PRN Reason: PROTOCOL Stop: 07/14/17 09:25 Miscellaneous (Clinical Monitoring) 1 ea [facility] DAILY PRN PRN Reason: RENAL Stop: 07/15/17 12:32 Miscellaneous (Probiotic Screen) 1 [facility] PRN PRN PRN Reason: PROTOCOL Stop: 07/16/17 09:33 Miscellaneous (Tpn Per Pharmacy) 1 [facility] PRN PRN PRN Reason: PROTOCOL Stop: 07/24/17 15:59 Pantoprazole Sodium (Protonix) 40 mg GT DAILY [facility] Stop: 07/14/17 08:59 Last Admin: 06/02/17 08:13 Dose: 40 mg General: no acute distress, cachectic HEENT: atraumatic, normocephalic, PERRLA, EOMI, moist mucous membrane Neck: supple, no thyromegaly Cardiovascular: S1S2, regular Lungs: clear to percussion, crackles Abdomen: soft, no tender, no distended, no mass, no hepatomegaly, no splenomegaly, no ascites, no bowel sounds Extremities: no cyanosis, no clubbing, no edema Skin: intact - Procedures Procedures: Procedures Procedure Code Date INSERT EMERGENCY AIRWAY 04591 05/13/17 INSERT TUNNELED CV CATH [id number] 05/13/17 INSERTION OF ENDOTRACHEAL AIRWAY INTO TRACHEA, VIA OPENING [id number] 05/13/17 INSERTION OF INFUSION DEV INTO R FEMOR VEIN, PERC APPROACH [id number] 05/13/17 RESPIRATORY VENTILATION, GREATER THAN 96 CONSECUTIVE HOURS [id number] 05/13/17 VENT MGMT INPAT INIT DAY [id number] 05/13/17 Infectious Disease Assmt/Plan - Problem List Patient Problems: All Active Problems COUGH AND CONGESTION (Acute) Congestive heart failure (CHF) (Acute) I50.9 congestive heart failure (Acute) hypertension uncontrolled with bradycarda (Acute) renal failure (Acute) - Assessment Assessment: 1. Pneuimonia.? Aspiration. 2. NICK. 3. CVA. 4. CHF. 5. CKD4. NICK mild rise in creatinine. 6. Afib with rapid ventricular response. Plan: Continue tygacil and colistin nebulizer. Nutritional Asmnt/Malnutr-PDOC - Dietary Evaluation Malnutrition Findings (Please click <Entered> for more info): Nutritional Asmnt/Malnutrition Start: 05/15/17 13: 56 Text: Status: Complete Freq: Document 05/15/17 13:56 GSUN (Rec: 05/15/17 14:18 GSUN [id number]) Nutritional Asmnt/Malnutrition Patient General Information Nutritional Screening High Risk Screening Diagnosis PNA, NICK, icnreasing renal failure, CVA, CHF, DM Pertinent Medical Hx/Surgical Hx CVA, dementia, afib, CAD, HTN, dyslipidemia, epilepsy, GERD, aspiration PNA, DM, CKD, dehydration, C. diff, anemia D Subjective Information 86 year old male from SNF. Pt greeted RD. Pt is overall thin , moderate to severe wasting to chest, clavicles, extremities. Observed Glytrol running at 60ml/hr x20hrs during visit. Unable to obtain CBW due to bedscale not calibrated. Discussed with YVETTE Farooq regarding tube feeding recommendations. Current Diet Order/ Nutrition Support Glytrol at 60ml/hr x 20hrs, providing 1200kcal 54g protein Pertinent Medications Lipitor, Novolog, Levemir, Cephulac, Morphine, Protonix, Nacl 0.9% Pertinent Labs 05/13: potassium 5.3H, BUN 80H, creatinine 2.4H, glucose 103 05/15: potassium WNL, BUN 70H, creatinine 2.4H, glucose 239H, A1c 6.1H, phosphorus 5.4H Nutritional Hx/Data Height 1.68 m Height (Calculated Centimeters) 167.6 Current Weight (lbs) 65.771 kg Weight (Calculated Kilograms) 65.8 Weight (Calculated Grams) 51720.9 [place] Body Weight 142 Weight Status Approriate GI Symptoms Difficult in: Swallowing Cultural/Ethnic/J[employer]ism Belief [facility]: Glucerna 1.2 at 85ml/hr x 20hrs, providing 2040kcal, promote weight gain. Skin Integrity/Comment: Gee 12. Skin intact. Estimated Nutritional Goals Calories/Kcals/Kg CBW 145lb/65.9kg Kcals Calculated 1976-2306kcal (30-35kcal/kg) Protein Calculated 46-92g (0.7-1.4g/kg, renal vs moderate to severe wasting) Fluid: ml Per MD (renal) Nutritional Problem 2. 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 Problem Problem Inadequate intake from enteral nutrition infusion related to Etiology estimated nutritional needs aeb Signs/Symptoms: providing to meet 61% lower end kcal needs Intervention/Recommendation Comments 1. Recommend Novasource Renal at 50ml/hr x 20hrs, providing 2000kcal and 91g protein. Current order Glytrol at 60ml/ hr x 20hrs is only providing 1200kcal, pt recieves 2040kcal at [facility]. Expected Outcomes/Goals Expected Outcomes/Goals 1. Pt to meet at least 100% of estimated nutritional needs on tube feeding with tolerance .
--- NOTE | 2017-06-02 13:47 | General Progress Note ---
Subjective - Review of Systems Service Date: 06/02/17 Subjective: more awake today , on vent, nonverbal Objective - Results Result Diagrams: 06/01/17 05:20 06/02/17 06:30 Recent Labs: Laboratory Last Values WBC 8.8 Th/cmm (4.8-10.8) 06/01/17 05:20 RBC 2.93 Mil/cmm (3.80-5.80) L 06/01/17 05:20 Hgb 8.1 gm/dL (12.6-17.4) L 06/01/17 05:20 Hct 24.1 % (39.0-49.0) L 06/01/17 05:20 MCV 82.3 fl (80-99) 06/01/17 05:20 MCH 27.5 pg (27.0-31.0) 06/01/17 05:20 MCHC Differential 33.5 pg (28.0-36.0) 06/01/17 05:20 RDW 16.7 % (11.5-20.0) 06/01/17 05:20 Plt Count 172 Th/cmm (150-400) 06/01/17 05:20 MPV 9.5 fl 06/01/17 05:20 Neutrophils % 80.6 % (40.0-80.0) H 06/01/17 05:20 Band Neutrophils % 2 % (0-10) 05/26/17 04:40 Lymphocytes % 10.7 % (20.0-50.0) L 06/01/17 05:20 Monocytes % 7.9 % (2.0-10.0) 06/01/17 05:20 Eosinophils % 0.8 % (0.0-5.0) 06/01/17 05:20 Basophils % 0.0 % (0.0-2.0) 06/01/17 05:20 Neutrophils (Manual) 89 % (40-80) H 05/26/17 04:40 Lymphocytes 5 % (20-50) L 05/26/17 04:40 Monocytes 4 % (2-10) 05/26/17 04:40 Eosinophils 0 % (0-5) 05/24/17 04:49 Basophils 0 % (0-3) 05/24/17 04:49 Metamyelocytes 1 % (0-0) H 05/22/17 04:44 Toxic Granulation 1+ 05/23/17 04:48 Platelet Estimate ADEQUATE (NORMAL) 05/26/17 04:40 Platelet Morphology NORMAL (NORMAL) 05/26/17 04:40 Anisocytosis 1+ 05/22/17 04:44 RBC Morph Micro Appear NORMAL (NORMAL) 05/26/17 04:40 Eos Smear Source URINE 05/14/17 18:00 Eos Smear Total Cells FEW EOSINOPHILS SEEN (NONE SEEN) 05/14/17 18:00 PT 11.9 SECONDS (9.5-11.5) H 05/13/17 17:42 INR 1.13 (0.5-1.4) 05/13/17 17:42 PTT (Actin FS) 30.5 SECONDS (26.0-38.0) 05/15/17 12:30 Specimen Source Arterial 05/30/17 11:08 Sample Site Left Radial 05/30/17 11:08 pH 7.40 (7.35-7.45) 05/30/17 11:08 pCO2 47.0 mmHg (35.0-45.0) H 05/30/17 11:08 pO2 95.0 mmHg (80.0-100.0) 05/30/17 11:08 HCO3 27.7 mEq/L (20.0-26.0) H 05/30/17 11:08 Base Excess 3.6 mEq/L (-3.0-3.0) H 05/30/17 11:08 O2 Saturation 97.0 % (92.0-100.0) 05/30/17 11:08 Feliciano Test YES 05/30/17 11:08 Vent Rate 12 05/30/17 11:08 Inspired O2 40 05/30/17 11:08 Tidal Volume 500 05/30/17 11:08 PEEP 0 05/30/17 11:08 Pressure (ins/psv/peep) 15 05/30/17 11:08 Critical Value E.MCNEAL 05/30/17 11:08 Sodium 134 mEq/L (136-145) L 06/02/17 06:30 Potassium 3.7 mEq/L (3.5-5.1) 06/02/17 06:30 Chloride 101 mEq/L (98-107) 06/02/17 06:30 Carbon Dioxide 26.7 mEq/L (21.0-31.0) 06/02/17 06:30 Anion Gap 10.0 (7.0-16.0) 06/02/17 06:30 BUN 71 mg/dL (7-25) H 06/02/17 06:30 Creatinine 3.1 mg/dL (0.7-1.3) H 06/02/17 06:30 Est GFR ( Amer) TNP 06/02/17 06:30 Est GFR (Non-Af Amer) TNP 06/02/17 06:30 BUN/Creatinine Ratio 22.9 06/02/17 06:30 Glucose 143 mg/dL (70-105) H 06/02/17 06:30 POC Glucose 142 MG/DL (70 - 105) H 06/02/17 06:05 Hemoglobin A1c % 6.1 % (4.0-6.0) H 05/15/17 06:30 Plasma/Ser Osmolality 301 mOsmol/kg (280-301) 05/14/17 18:20 Whole Bld Lactic Acid 1.58 mmol/L (0.60-1.99) 05/13/17 17:42 Uric Acid 7.7 mg/dL (4.4-7.6) H 05/15/17 06:30 Calcium 9.2 mg/dL (8.6-10.3) 06/02/17 06:30 Phosphorus 4.0 mg/dL (2.5-5.0) 06/02/17 06:30 Magnesium 1.8 mg/dL (1.9-2.7) L 06/02/17 06:30 Total Bilirubin 2.1 mg/dL (0.3-1.0) H 06/02/17 06:30 Direct Bilirubin 0.09 mg/dL (0.0-0.2) 05/19/17 04:50 AST 51 U/L (13-39) H 06/02/17 06:30 ALT 8 U/L (7-52) 06/02/17 06:30 Alkaline Phosphatase 451 U/L (34-104) H 06/02/17 06:30 Ammonia 65 umol/L (16-53) H 05/19/17 04:50 Creatine Kinase 35 U/L (30-223) 05/16/17 23:06 Troponin I 0.02 ng/mL (0.01-0.05) 05/16/17 23:06 B-Natriuretic Peptide 739.0 pg/mL (5.0-100.0) H 05/23/17 04:48 Total Protein 5.5 gm/dL (6.0-8.3) L 06/02/17 06:30 Albumin 3.1 gm/dL (4.2-5.5) L 06/02/17 06:30 Globulin 2.4 gm/dL 06/02/17 06:30 Albumin/Globulin Ratio 1.3 (1.0-1.8) 06/02/17 06:30 Prealbumin 6 mg/dL (9-32) L 05/30/17 04:47 Triglycerides 53 mg/dL (<150) 05/30/17 04:47 Cholesterol 42 mg/dL (<200) 05/30/17 04:47 TSH 2.74 uIU/ml (0.34-5.60) 05/15/17 06:30 Urine Source CATH 05/13/17 19:50 Urine Color YELLOW 05/13/17 19:50 Urine Clarity CLOUDY (CLEAR) 05/13/17 19:50 Urine pH 6.0 05/13/17 19:50 Ur Specific [place] 1.015 (1.005-1.030) 05/13/17 19:50 Urine Protein 100 mg/dL (NEGATIVE) H 05/13/17 19:50 Urine Glucose (UA) NEGATIVE mg/dL (NEGATIVE) 05/13/17 19:50 Urine Ketones NEGATIVE mg/dL (NEGATIVE) 05/13/17 19:50 Urine Blood LARGE (NEGATIVE) H 05/13/17 19:50 Urine Nitrate NEGATIVE (NEGATIVE) 05/13/17 19:50 Urine Bilirubin NEGATIVE (NEGATIVE) 05/13/17 19:50 Urine Urobilinogen 0.2 E.U./dL (0.2 - 1.0) 05/13/17 19:50 Ur Leukocyte Esterase LARGE (NEGATIVE) H 05/13/17 19:50 Urine RBC 50-100 /hpf (0-5) H 05/13/17 19:50 Urine WBC >100 /hpf (0-5) H 05/13/17 19:50 Ur Epithelial Cells NONE SEEN /lpf (FEW) 05/13/17 19:50 Urine Bacteria NONE SEEN /hpf (NONE SEEN) 05/13/17 19:50 Ur Random Sodium 30 mmol/L 05/14/17 18:00 Urine Creatinine 36.4 mg/dl (Not Estab.) 05/14/17 18:00 Urine Microalbumin 363.5 ug/mL (Not Estab.) 05/14/17 18:00 Microalb/Creat Ratio 998.6 mg/g creat (0.0-30.0) H 05/14/17 18:00 Stool Occult Blood NEGATIVE (NEGATIVE) 05/25/17 17:49 Random Vancomycin 19.1 ug/mL (5.0-40.0) 05/19/17 04:50 Hepatitis A IgM Ab Negative (Negative) 05/21/17 04:46 Hep Bs Antigen Negative (Negative) 05/21/17 04:46 Hep B Core IgM Ab Negative (Negative) 05/21/17 04:46 Hepatitis C Antibody 0.1 s/co ratio (0.0-0.9) 05/21/17 04:46 Blood Type B POSITIVE 05/21/17 10:19 Antibody Screen NEGATIVE 05/21/17 10:19 Crossmatch See Detail 05/21/17 10:19 - Physical Exam Vitals and I&O: Vital Signs Temp 98.6 F 06/02/17 12:00 Pulse 71 06/02/17 13:09 Resp 17 06/02/17 12:00 BP 118/61 06/02/17 12:00 Pulse Ox 100 06/02/17 13:09 Intake & Output 06/01/17 06/02/17 06/02/17 18:59 06:59 18:59 Intake Total 1204 802 Output Total 400 450 Balance 804 352 Weight (lbs) 64.864 kg 65.317 kg 65.317 kg Intake: Intake, IV Amount 1054 652 Multivitamin Inj 10 ml In 954 552 Dextrose 70% 250 ml In Amino Acids 10% 500 ml In Intralipids 20% 200 ml @ 40 mls/hr IV .Q24H YESSICA Rx#:[id number] Tigecycline 50 mg In 100 100 Sodium Chloride 0.9% 100 ml @ 100 mls/hr IV Q12H YESSICA Rx#:[id number] Oral 0 Other 150 150 Output: Urine 400 450 Other: # Bowel Movements 0 2 Active Medications: Current Medications Acetaminophen (Tylenol) 650 mg PO Q4HR PRN PRN Reason: Pain Or Fever above 101 Stop: 07/14/17 15:15 Last Admin: 05/23/17 15:07 Dose: 650 mg Albuterol/Ipratropium (Duoneb Neb) 3 ml HHN Q4HRT [facility] Stop: 07/19/17 14:59 Last Admin: 06/02/17 11:16 Dose: 3 ml Atorvastatin Calcium (Lipitor) 10 mg GT HS YESSICA PRN Reason: Protocol Stop: 07/14/17 20:59 Last Admin: 06/01/17 21:57 Dose: 10 mg Budesonide (Pulmicort) 1 mg HHN BIDRT [facility] Stop: 07/19/17 18:59 Last Admin: 06/02/17 07:01 Dose: 1 mg Carbidopa/Levodopa (Sinemet 25mg-100 Mg) 1 tab PO TID [facility] Stop: 07/14/17 08:59 Last Admin: 06/02/17 08:13 Dose: 1 tab Chlorhexidine Gluconate (Peridex) 15 ml MM 0800,2000 [facility] Stop: 07/23/17 19:59 Last Admin: 06/02/17 11:25 Dose: 15 ml Clonidine HCl (Catapres) 0.1 mg PO Q6HR PRN PRN Reason: BP MAINTENANCE (PER PROTOCOL) Stop: 07/28/17 13:31 Last Admin: 05/29/17 21:04 Dose: 0.1 mg Colistimethate Sodium (Colistin) 75 mg HHN BIDRT [facility] Stop: 07/30/17 18:59 Last Admin: 06/02/17 07:05 Dose: 75 mg Dextrose (D50w) 50 ml IVP PRN PRN; Protocol PRN Reason: HYPOGLYCEMIA Stop: 07/20/17 00:54 Last Admin: 05/22/17 23:34 Dose: 50 ml Diltiazem HCl (Cardizem) 10 mg IVP Q6HR PRN PRN Reason: HR >130 Stop: 07/22/17 17:09 Last Admin: 05/24/17 04:21 Dose: 10 mg Furosemide (Lasix) 40 mg IVP DAILY [facility] Stop: 07/18/17 08:59 Last Admin: 06/02/17 11:09 Dose: 40 mg Heparin Sodium (Porcine) (Heparin Sodium) 0 units HD UD [facility] Stop: 06/03/17 00:00 Last Admin: 06/02/17 11:12 Dose: 2,000 units Hydralazine HCl (Apresoline 20 Mg/Ml) 10 mg IV Q6HR PRN PRN Reason: BP MAINTENANCE (PER PROTOCOL) Stop: 07/30/17 13:09 Last Admin: 06/01/17 08:09 Dose: 10 mg Norepinephrine Bitartrate 8 mg (/ Dextrose) 258 mls @ 0 mls/hr IV TITR PRN; Protocol; Titrate PRN Reason: BP MAINTENANCE (PER PROTOCOL) Stop: 07/19/17 12:29 Last Admin: 05/21/17 01:06 Dose: 10 mcg/min, 19.35 mls/hr Phenylephrine HCl 10 mg/ (Sodium Chloride) 250 mls @ 0 mls/hr IV TITR YESSICA; Per Protocol PRN Reason: Protocol Stop: 07/19/17 12:59 Tigecycline 50 mg/ Sodium (Chloride) 100 mls @ 100 mls/hr IV Q12H [facility] Stop: 07/21/17 18:59 Last Admin: 06/02/17 06:41 Dose: 100 mls/hr Multivitamins/Minerals 10 ml/Dextrose/ Amino Acids/Electrolytes/ Fat Emulsion Intravenous 960 mls @ 40 mls/hr IV .Q24H [facility] Stop: 07/26/17 15:59 Last Infusion: 06/02/17 06:00 Dose: 40 mls/hr Insulin Aspart (Novolog Insulin Sliding Scale) 0 units SUBQ Q6HR YESSICA PRN Reason: Protocol Stop: 07/14/17 00:00 Last Admin: 06/02/17 13:44 Dose: Not Given Isosorbide Dinitrate (Isordil) 20 mg GT TID [facility] Stop: 07/28/17 13:33 Last Admin: 06/02/17 11:09 Dose: 20 mg Lactobacillus Rhamnosus (Culturelle) 1 each PO DAILY [facility] Stop: 07/17/17 08:59 Last Admin: 06/02/17 08:13 Dose: 1 each Levetiracetam (Keppra) 250 mg NG BID [facility] Stop: 07/14/17 08:59 Last Admin: 06/02/17 08:13 Dose: 250 mg Metoclopramide HCl (Reglan) 5 mg IVP TID [facility] Stop: 07/20/17 20:59 Last Admin: 06/02/17 08:13 Dose: 5 mg Metoprolol Tartrate (Lopressor) 50 mg GT Q8H [facility] Stop: 07/18/17 08:59 Last Admin: 06/02/17 11:09 Dose: 50 mg Miscellaneous (Vte Chemical Prophylaxis Screen/ Admission) 1 ea MC PRN PRN PRN Reason: PROTOCOL Stop: 07/14/17 09:25 Miscellaneous (Clinical Monitoring) 1 ea MC DAILY PRN PRN Reason: RENAL Stop: 07/15/17 12:32 Miscellaneous (Probiotic Screen) 1 ea MC PRN PRN PRN Reason: PROTOCOL Stop: 07/16/17 09:33 Miscellaneous (Tpn Per Pharmacy) 1 ea MC PRN PRN PRN Reason: PROTOCOL Stop: 07/24/17 15:59 Pantoprazole Sodium (Protonix) 40 mg GT DAILY [facility] Stop: 07/14/17 08:59 Last Admin: 06/02/17 08:13 Dose: 40 mg General: No acute distress, Other (open eyes but not interractive), no Alert HEENT: Atraumatic, EOMI (normal), Mucous membr. moist/pink Neck: Supple, +2 carotid pulse wo bruit Cardiovascular: Normal S1, Normal S2, Other (afib with fluctuating heart rate) Lungs: Other (occasional rhonchi) Abdomen: Soft Extremities: no Edema (no edema) Neurological: Sensation intact, Other (lethargic) Skin: no Rash Psych/Mental Status: Mood NL - Procedures Procedures: Procedures Procedure Code Date INSERT EMERGENCY AIRWAY 22580 05/13/17 INSERT TUNNELED CV CATH 16720 05/13/17 INSERTION OF ENDOTRACHEAL AIRWAY INTO TRACHEA, VIA OPENING [id number] 05/13/17 INSERTION OF INFUSION DEV INTO R FEMOR VEIN, PERC APPROACH [id number] 05/13/17 RESPIRATORY VENTILATION, GREATER THAN 96 CONSECUTIVE HOURS [id number] 05/13/17 VENT MGMT INPAT INIT DAY 58975 05/13/17 Assessment/Plan - Problem List Patient Problems: All Active Problems COUGH AND CONGESTION (Acute) Congestive heart failure (CHF) (Acute) I50.9 congestive heart failure (Acute) hypertension uncontrolled with bradycarda (Acute) renal failure (Acute) - Assessment Assessment: NICK on CKD, now on dialysis A LOC secondary to metabolic encephalopathy/medications Dehydration Essential hypertension with CKD COPD Chronic atrial fibrillation Status post CVA Aspiration pneumonia/dysphagia status post PEG Type 2 diabetes mellitus with CKD Acute Decompensated CHF Acute Resp Failure on Vent Bradycardia - Plan Plan: Lab - Result Diagrams 05/15/17 06:30 05/15/17 06:30 Current Medications Acetaminophen (Tylenol) 650 mg PO Q4HR PRN PRN Reason: Pain Or Fever above 101 Stop: 07/14/17 15:15 Last Admin: 05/15/17 16:21 Dose: 650 mg Albuterol Sulfate (Albuterol 2.5mg/3ml Neb Ud) 2.5 mg HHN Q6HRT [facility] Stop: 07/14/17 00:59 Last Admin: 05/15/17 16:05 Dose: 2.5 mg Atorvastatin Calcium (Lipitor) 10 mg GT HS YESSICA PRN Reason: Protocol Stop: 07/14/17 20:59 Carbidopa/Levodopa (Sinemet 25mg-100 Mg) 1 tab PO TID [facility] Stop: 07/14/17 08:59 Last Admin: 05/15/17 14:02 Dose: 1 tab Heparin Sodium (Porcine) (Heparin) 5,000 units SUBQ Q8H [facility]ESSICA Stop: 07/14/17 14:59 Last Admin: 05/15/17 16:24 Dose: 5,000 units Sodium Chloride (Nacl 0.9%) 1,000 mls @ 60 mls/hr IV .[id number] [facility] Stop: 07/13/17 06:40 Last Admin: 05/14/17 17:16 Dose: 60 mls/hr Azithromycin 250 mg/ Sodium (Chloride) 250 mls @ 250 mls/hr IV Q24HR [facility] Stop: 05/20/17 08:59 Piperacillin Sod/Tazobactam (Sod 3.375 gm/ Sodium Chloride) 50 mls @ 100 mls/ hr IV Q8HR [facility] Stop: 07/14/17 15:14 Last Admin: 05/15/17 15:57 Dose: 100 mls/hr Insulin Aspart (Novolog Insulin Sliding Scale) 0 units SUBQ Q6HR YESSICA PRN Reason: Protocol Stop: 07/14/17 00:00 Last Admin: 05/15/17 17:09 Dose: Not Given Insulin Detemir (Levemir Insulin) 14 units SUBQ DAILY [facility]ESSICA PRN Reason: Protocol Stop: 07/15/17 08:59 Isosorbide Dinitrate (Isordil) 10 mg GT TID [facility] Stop: 07/14/17 08:59 Last Admin: 05/15/17 14:02 Dose: 10 mg Lactulose (Cephulac) 20 gm PO TID [facility] Stop: 07/14/17 08:59 Last Admin: 05/15/17 14:02 Dose: 20 gm Levetiracetam (Keppra) 250 mg NG BID [facility] Stop: 07/14/17 08:59 Last Admin: 05/15/17 16:23 Dose: 250 mg Metoprolol Tartrate (Lopressor) 37.5 mg GT BID [facility] Stop: 07/14/17 00:14 Last Admin: 05/15/17 16:22 Dose: 37.5 mg Miscellaneous (Vte Chemical Prophylaxis Screen/ Admission) 1 ea MC PRN PRN PRN Reason: PROTOCOL Stop: 07/14/17 09:25 Morphine Sulfate (Morphine) 2 mg IVP Q3H PRN PRN Reason: PAIN Stop: 07/13/17 19:46 Last Admin: 05/14/17 21:16 Dose: 2 mg Mupirocin (Bactroban Oint) 1 appl TP BID [facility]ESSICA Stop: 07/14/17 16:59 Last Admin: 05/15/17 16:24 Dose: 1 appl Pantoprazole Sodium (Protonix) 40 mg GT DAILY [facility] Stop: 07/14/17 08:59 Last Admin: 05/15/17 08:36 Dose: 40 mg Rifaximin (Xifaxan) 550 mg GT BID [facility]ESS[facility] Stop: 07/14/17 08:59 Last Admin: 05/15/17 16:23 Dose: 550 mg Latest BUN/CR were 71/3.1 White count down to 9 on Zosyn Chest x-ray still w/ b/l infiltrates, effusions, no significant change Reviewed his meds Follow-up electrolytes currently on PPN @ 40 ml /hr prognosis poor Hgb/Hct down to 8.5/25.2 scheduled for HD today & in am Follow-up electrolytes, CBC and chest x-ray in a.m. urine ouput minimal Lab - Result Diagrams 05/24/17 04:49 05/24/17 04:49 addendum: Poor response to diuretics, w/ worsening CHF, BNP level developed resp failure, required intubation worsening cardio-renal syndrome discussed w/ grandson Pedro, about poor prognosis but still want to proceed w/ dialysis Nutritional Asmnt/Malnutr-PDOC - Dietary Evaluation Malnutrition Findings (Please click <Entered> for more info): Nutritional Asmnt/Malnutrition Start: 05/15/17 13: 56 Text: Status: Complete Freq: Document 05/15/17 13:56 GSUN (Rec: 05/15/17 14:18 GSUN [email or web address]) Nutritional Asmnt/Malnutrition Patient General Information Nutritional Screening High Risk Screening Diagnosis PNA, NICK, icnreasing renal failure, CVA, CHF, DM Pertinent Medical Hx/Surgical Hx CVA, dementia, afib, CAD, HTN, dyslipidemia, epilepsy, GERD, aspiration PNA, DM, CKD, dehydration, C. diff, anemia D Subjective Information 86 year old male from SNF. Pt greeted RD. Pt is overall thin , moderate to severe wasting to chest, clavicles, extremities. Observed Glytrol running at 60ml/hr x20hrs during visit. Unable to obtain CBW due to bedscale not calibrated. Discussed with YVETTE Farooq regarding tube feeding recommendations. Current Diet Order/ Nutrition Support Glytrol at 60ml/hr x 20hrs, providing 1200kcal 54g protein Pertinent Medications Lipitor, Novolog, Levemir, Cephulac, Morphine, Protonix, Nacl 0.9% Pertinent Labs 05/13: potassium 5.3H, BUN 80H, creatinine 2.4H, glucose 103 05/15: potassium WNL, BUN 70H, creatinine 2.4H, glucose 239H, A1c 6.1H, phosphorus 5.4H Nutritional Hx/Data Height 1.68 m Height (Calculated Centimeters) 167.6 Current Weight (lbs) 65.771 kg Weight (Calculated Kilograms) 65.8 Weight (Calculated Grams) 02967.9 [place] Body Weight 142 Weight Status Approriate GI Symptoms Difficult in: Swallowing Cultural/Ethnic/Orthodoxy Belief [facility]: Glucerna 1.2 at 85ml/hr x 20hrs, providing 2040kcal, promote weight gain. Skin Integrity/Comment: Gee 12. Skin intact. Estimated Nutritional Goals Calories/Kcals/Kg CBW 145lb/65.9kg Kcals Calculated 1976-7kcal (30-35kcal/kg) Protein Calculated 46-92g (0.7-1.4g/kg, renal vs moderate to severe wasting) Fluid: ml Per MD (renal) Nutritional Problem 2. Problem Problem Impaired nutrient utilization related to Etiology NICK, hx CKD aeb Signs/Symptoms: "increasing renal failure," potaasum 5.3H on adm, BUN 70H, combination machine tender 2.4H, phosphorus 5.4H 1. Problem Problem Inadequate intake from enteral nutrition infusion related to Etiology estimated nutritional needs aeb Signs/Symptoms: providing to meet 61% lower end kcal needs Intervention/Recommendation Comments 1. Recommend Novasource Renal at 50ml/hr x 20hrs, providing 2000kcal and 91g protein. Current order Glytrol at 60ml/ hr x 20hrs is only providing 1200kcal, pt recieves 2040kcal at [facility]. Expected Outcomes/Goals Expected Outcomes/Goals 1. Pt to meet at least 100% of estimated nutritional needs on tube feeding with tolerance .
[2017-06-02] MEDS ORDERED: Mag Sulfate 2gm/50mL Premix 2 GM/50 ML BAG IV ONE (14:00)
[2017-06-02] MEDS: TPN 10%-70% CUSTOM IV SCH (15:38)
--- NOTE | 2017-06-02 21:01 | General Progress Note ---
Subjective - Review of Systems Service Date: 06/02/17 Subjective: Patient seen and examined doing better more awake afebrile breathing stable with current vent support Objective - Results Result Diagrams: 06/01/17 05:20 06/02/17 06:30 Recent Labs: Laboratory Last Values WBC 8.8 Th/cmm (4.8-10.8) 06/01/17 05:20 RBC 2.93 Mil/cmm (3.80-5.80) L 06/01/17 05:20 Hgb 8.1 gm/dL (12.6-17.4) L 06/01/17 05:20 Hct 24.1 % (39.0-49.0) L 06/01/17 05:20 MCV 82.3 fl (80-99) 06/01/17 05:20 MCH 27.5 pg (27.0-31.0) 06/01/17 05:20 MCHC Differential 33.5 pg (28.0-36.0) 06/01/17 05:20 RDW 16.7 % (11.5-20.0) 06/01/17 05:20 Plt Count 172 Th/cmm (150-400) 06/01/17 05:20 MPV 9.5 fl 06/01/17 05:20 Neutrophils % 80.6 % (40.0-80.0) H 06/01/17 05:20 Band Neutrophils % 2 % (0-10) 05/26/17 04:40 Lymphocytes % 10.7 % (20.0-50.0) L 06/01/17 05:20 Monocytes % 7.9 % (2.0-10.0) 06/01/17 05:20 Eosinophils % 0.8 % (0.0-5.0) 06/01/17 05:20 Basophils % 0.0 % (0.0-2.0) 06/01/17 05:20 Neutrophils (Manual) 89 % (40-80) H 05/26/17 04:40 Lymphocytes 5 % (20-50) L 05/26/17 04:40 Monocytes 4 % (2-10) 05/26/17 04:40 Eosinophils 0 % (0-5) 05/24/17 04:49 Basophils 0 % (0-3) 05/24/17 04:49 Metamyelocytes 1 % (0-0) H 05/22/17 04:44 Toxic Granulation 1+ 05/23/17 04:48 Platelet Estimate ADEQUATE (NORMAL) 05/26/17 04:40 Platelet Morphology NORMAL (NORMAL) 05/26/17 04:40 Anisocytosis 1+ 05/22/17 04:44 RBC Morph Micro Appear NORMAL (NORMAL) 05/26/17 04:40 Eos Smear Source URINE 05/14/17 18:00 Eos Smear Total Cells FEW EOSINOPHILS SEEN (NONE SEEN) 05/14/17 18:00 PT 11.9 SECONDS (9.5-11.5) H 05/13/17 17:42 INR 1.13 (0.5-1.4) 05/13/17 17:42 PTT (Actin FS) 30.5 SECONDS (26.0-38.0) 05/15/17 12:30 Specimen Source Arterial 05/30/17 11:08 Sample Site Left Radial 05/30/17 11:08 pH 7.40 (7.35-7.45) 05/30/17 11:08 pCO2 47.0 mmHg (35.0-45.0) H 05/30/17 11:08 pO2 95.0 mmHg (80.0-100.0) 05/30/17 11:08 HCO3 27.7 mEq/L (20.0-26.0) H 05/30/17 11:08 Base Excess 3.6 mEq/L (-3.0-3.0) H 05/30/17 11:08 O2 Saturation 97.0 % (92.0-100.0) 05/30/17 11:08 Feliciano Test YES 05/30/17 11:08 Vent Rate 12 05/30/17 11:08 Inspired O2 40 05/30/17 11:08 Tidal Volume 500 05/30/17 11:08 PEEP 0 05/30/17 11:08 Pressure (ins/psv/peep) 15 05/30/17 11:08 Critical Value E.MCNEAL 05/30/17 11:08 Sodium 134 mEq/L (136-145) L 06/02/17 06:30 Potassium 3.7 mEq/L (3.5-5.1) 06/02/17 06:30 Chloride 101 mEq/L (98-107) 06/02/17 06:30 Carbon Dioxide 26.7 mEq/L (21.0-31.0) 06/02/17 06:30 Anion Gap 10.0 (7.0-16.0) 06/02/17 06:30 BUN 71 mg/dL (7-25) H 06/02/17 06:30 Creatinine 3.1 mg/dL (0.7-1.3) H 06/02/17 06:30 Est GFR ( Amer) TNP 06/02/17 06:30 Est GFR (Non-Af Amer) TNP 06/02/17 06:30 BUN/Creatinine Ratio 22.9 06/02/17 06:30 Glucose 143 mg/dL (70-105) H 06/02/17 06:30 POC Glucose 184 MG/DL (70 - 105) H 06/02/17 17:07 Hemoglobin A1c % 6.1 % (4.0-6.0) H 05/15/17 06:30 Plasma/Ser Osmolality 301 mOsmol/kg (280-301) 05/14/17 18:20 Whole Bld Lactic Acid 1.58 mmol/L (0.60-1.99) 05/13/17 17:42 Uric Acid 7.7 mg/dL (4.4-7.6) H 05/15/17 06:30 Calcium 9.2 mg/dL (8.6-10.3) 06/02/17 06:30 Phosphorus 4.0 mg/dL (2.5-5.0) 06/02/17 06:30 Magnesium 1.8 mg/dL (1.9-2.7) L 06/02/17 06:30 Total Bilirubin 2.1 mg/dL (0.3-1.0) H 06/02/17 06:30 Direct Bilirubin 0.09 mg/dL (0.0-0.2) 05/19/17 04:50 AST 51 U/L (13-39) H 06/02/17 06:30 ALT 8 U/L (7-52) 06/02/17 06:30 Alkaline Phosphatase 451 U/L (34-104) H 06/02/17 06:30 Ammonia 65 umol/L (16-53) H 05/19/17 04:50 Creatine Kinase 35 U/L (30-223) 05/16/17 23:06 Troponin I 0.02 ng/mL (0.01-0.05) 05/16/17 23:06 B-Natriuretic Peptide 739.0 pg/mL (5.0-100.0) H 05/23/17 04:48 Total Protein 5.5 gm/dL (6.0-8.3) L 06/02/17 06:30 Albumin 3.1 gm/dL (4.2-5.5) L 06/02/17 06:30 Globulin 2.4 gm/dL 06/02/17 06:30 Albumin/Globulin Ratio 1.3 (1.0-1.8) 06/02/17 06:30 Prealbumin 6 mg/dL (9-32) L 05/30/17 04:47 Triglycerides 53 mg/dL (<150) 05/30/17 04:47 Cholesterol 42 mg/dL (<200) 05/30/17 04:47 TSH 2.74 uIU/ml (0.34-5.60) 05/15/17 06:30 Urine Source CATH 05/13/17 19:50 Urine Color YELLOW 05/13/17 19:50 Urine Clarity CLOUDY (CLEAR) 05/13/17 19:50 Urine pH 6.0 05/13/17 19:50 Ur Specific [place] 1.015 (1.005-1.030) 05/13/17 19:50 Urine Protein 100 mg/dL (NEGATIVE) H 05/13/17 19:50 Urine Glucose (UA) NEGATIVE mg/dL (NEGATIVE) 05/13/17 19:50 Urine Ketones NEGATIVE mg/dL (NEGATIVE) 05/13/17 19:50 Urine Blood LARGE (NEGATIVE) H 05/13/17 19:50 Urine Nitrate NEGATIVE (NEGATIVE) 05/13/17 19:50 Urine Bilirubin NEGATIVE (NEGATIVE) 05/13/17 19:50 Urine Urobilinogen 0.2 E.U./dL (0.2 - 1.0) 05/13/17 19:50 Ur Leukocyte Esterase LARGE (NEGATIVE) H 05/13/17 19:50 Urine RBC 50-100 /hpf (0-5) H 05/13/17 19:50 Urine WBC >100 /hpf (0-5) H 05/13/17 19:50 Ur Epithelial Cells NONE SEEN /lpf (FEW) 05/13/17 19:50 Urine Bacteria NONE SEEN /hpf (NONE SEEN) 05/13/17 19:50 Ur Random Sodium 30 mmol/L 05/14/17 18:00 Urine Creatinine 36.4 mg/dl (Not Estab.) 05/14/17 18:00 Urine Microalbumin 363.5 ug/mL (Not Estab.) 05/14/17 18:00 Microalb/Creat Ratio 998.6 mg/g creat (0.0-30.0) H 05/14/17 18:00 Stool Occult Blood NEGATIVE (NEGATIVE) 05/25/17 17:49 Random Vancomycin 19.1 ug/mL (5.0-40.0) 05/19/17 04:50 Hepatitis A IgM Ab Negative (Negative) 05/21/17 04:46 Hep Bs Antigen Negative (Negative) 05/21/17 04:46 Hep B Core IgM Ab Negative (Negative) 05/21/17 04:46 Hepatitis C Antibody 0.1 s/co ratio (0.0-0.9) 05/21/17 04:46 Blood Type B POSITIVE 05/21/17 10:19 Antibody Screen NEGATIVE 05/21/17 10:19 Crossmatch See Detail 05/21/17 10:19 - Physical Exam Vitals and I&O: Vital Signs Temp 98.2 F 06/02/17 16:00 Pulse 68 06/02/17 19:02 Resp 12 06/02/17 19:00 BP 136/7 06/02/17 19:00 Pulse Ox 100 06/02/17 19:02 Intake & Output 06/02/17 06/02/17 06/03/17 06:59 18:59 06:59 Intake Total 802 730 Output Total 450 450 Balance 352 280 Weight (lbs) 65.317 kg 65.317 kg Intake: Intake, IV Amount 652 100 Multivitamin Inj 10 ml In 552 Dextrose 70% 250 ml In Amino Acids 10% 500 ml In Intralipids 20% 200 ml @ 40 mls/hr IV .Q24H YESSICA Rx#:[id number] Tigecycline 50 mg In 100 100 Sodium Chloride 0.9% 100 ml @ 100 mls/hr IV Q12H YESSICA Rx#:[id number] Oral 0 TPN/PPN 480 Other 150 150 Output: Urine 450 450 Other: # Bowel Movements 2 1 Active Medications: Current Medications Acetaminophen (Tylenol) 650 mg PO Q4HR PRN PRN Reason: Pain Or Fever above 101 Stop: 07/14/17 15:15 Last Admin: 05/23/17 15:07 Dose: 650 mg Albuterol/Ipratropium (Duoneb Neb) 3 ml HHN Q4HRT [facility] Stop: 07/19/17 14:59 Last Admin: 06/02/17 19:02 Dose: 3 ml Atorvastatin Calcium (Lipitor) 10 mg GT HS YESSICA PRN Reason: Protocol Stop: 07/14/17 20:59 Last Admin: 06/01/17 21:57 Dose: 10 mg Budesonide (Pulmicort) 1 mg HHN BIDRT [facility] Stop: 07/19/17 18:59 Last Admin: 06/02/17 19:02 Dose: 1 mg Carbidopa/Levodopa (Sinemet 25mg-100 Mg) 1 tab PO TID [facility] Stop: 07/14/17 08:59 Last Admin: 06/02/17 14:32 Dose: 1 tab Chlorhexidine Gluconate (Peridex) 15 ml MM 0800,2000 [facility] Stop: 07/23/17 19:59 Last Admin: 06/02/17 19:56 Dose: 15 ml Clonidine HCl (Catapres) 0.1 mg PO Q6HR PRN PRN Reason: BP MAINTENANCE (PER PROTOCOL) Stop: 07/28/17 13:31 Last Admin: 05/29/17 21:04 Dose: 0.1 mg Colistimethate Sodium (Colistin) 75 mg HHN BIDRT [facility] Stop: 07/30/17 18:59 Last Admin: 06/02/17 19:02 Dose: 75 mg Dextrose (D50w) 50 ml IVP PRN PRN; Protocol PRN Reason: HYPOGLYCEMIA Stop: 07/20/17 00:54 Last Admin: 05/22/17 23:34 Dose: 50 ml Diltiazem HCl (Cardizem) 10 mg IVP Q6HR PRN PRN Reason: HR >130 Stop: 07/22/17 17:09 Last Admin: 05/24/17 04:21 Dose: 10 mg Furosemide (Lasix) 40 mg IVP DAILY [facility] Stop: 07/18/17 08:59 Last Admin: 06/02/17 11:09 Dose: 40 mg Heparin Sodium (Porcine) (Heparin Sodium) 0 units HD UD [facility] Stop: 06/03/17 00:00 Last Admin: 06/02/17 11:12 Dose: 2,000 units Heparin Sodium (Porcine) (Heparin) 5,000 units SUBQ Q8HR YESSICA Stop: 08/01/17 20:59 Hydralazine HCl (Apresoline 20 Mg/Ml) 10 mg IV Q6HR PRN PRN Reason: BP MAINTENANCE (PER PROTOCOL) Stop: 07/30/17 13:09 Last Admin: 06/01/17 08:09 Dose: 10 mg Norepinephrine Bitartrate 8 mg (/ Dextrose) 258 mls @ 0 mls/hr IV TITR PRN; Protocol; Titrate PRN Reason: BP MAINTENANCE (PER PROTOCOL) Stop: 07/19/17 12:29 Last Admin: 05/21/17 01:06 Dose: 10 mcg/min, 19.35 mls/hr Phenylephrine HCl 10 mg/ (Sodium Chloride) 250 mls @ 0 mls/hr IV TITR YESSICA; Per Protocol PRN Reason: Protocol Stop: 07/19/17 12:59 Tigecycline 50 mg/ Sodium (Chloride) 100 mls @ 100 mls/hr IV Q12H [facility] Stop: 07/21/17 18:59 Last Admin: 06/02/17 19:42 Dose: 100 mls/hr Albumin Human (Albuminar 25%) 25 gm in 100 mls @ 50 mls/hr IV X1 ONE Stop: 06/03/17 15:50 Albumin Human (Albuminar 25%) 25 gm in 100 mls @ 50 mls/hr IV X1 ONE Stop: 06/03/17 15:50 Multivitamins/Minerals 10 ml/Dextrose/ Amino Acids/Electrolytes/ Fat Emulsion Intravenous 960 mls @ 40 mls/hr IV .Q24H [facility] Stop: 08/01/17 14:59 Last Admin: 06/02/17 15:38 Dose: 40 mls/hr Insulin Aspart (Novolog Insulin Sliding Scale) 0 units SUBQ Q6HR YESSICA PRN Reason: Protocol Stop: 07/14/17 00:00 Last Admin: 06/02/17 17:14 Dose: Not Given Isosorbide Dinitrate (Isordil) 20 mg GT TID YESSICA Stop: 07/28/17 13:33 Last Admin: 06/02/17 14:32 Dose: 20 mg Lactobacillus Rhamnosus (Culturelle) 1 each PO DAILY [facility] Stop: 07/17/17 08:59 Last Admin: 06/02/17 08:13 Dose: 1 each Levetiracetam (Keppra) 250 mg NG BID [facility] Stop: 07/14/17 08:59 Last Admin: 06/02/17 17:00 Dose: 250 mg Metoclopramide HCl (Reglan) 5 mg IVP TID YESSICA Stop: 07/20/17 20:59 Last Admin: 06/02/17 14:32 Dose: 5 mg Metoprolol Tartrate (Lopressor) 50 mg GT Q8H YESSICA Stop: 07/18/17 08:59 Last Admin: 06/02/17 16:59 Dose: 50 mg Miscellaneous (Vte Chemical Prophylaxis Screen/ Admission) 1 ea PRN PRN PRN Reason: PROTOCOL Stop: 07/14/17 09:25 Miscellaneous (Clinical Monitoring) 1 ea MC DAILY PRN PRN Reason: RENAL Stop: 07/15/17 12:32 Miscellaneous (Probiotic Screen) 1 ea PRN PRN PRN Reason: PROTOCOL Stop: 07/16/17 09:33 Miscellaneous (Tpn Per Pharmacy) 1 ea PRN PRN PRN Reason: PROTOCOL Stop: 07/24/17 15:59 Pantoprazole Sodium (Protonix) 40 mg GT DAILY [facility] Stop: 07/14/17 08:59 Last Admin: 06/02/17 08:13 Dose: 40 mg General: No acute distress, Other (open eyes but not interractive), no Alert Cardiovascular: Other (afib with fluctuating heart rate) Lungs: Other (occasional rhonchi) Abdomen: Soft Extremities: no Edema (no edema) Neurological: Sensation intact, Other (lethargic) Skin: no Rash Psych/Mental Status: Mood NL - Procedures Procedures: Procedures Procedure Code Date INSERT EMERGENCY AIRWAY 25568 05/13/17 INSERT TUNNELED CV CATH 24048 05/13/17 INSERTION OF ENDOTRACHEAL AIRWAY INTO TRACHEA, VIA OPENING [id number] 05/13/17 INSERTION OF INFUSION DEV INTO R FEMOR VEIN, PERC APPROACH [id number] 05/13/17 RESPIRATORY VENTILATION, GREATER THAN 96 CONSECUTIVE HOURS [id number] 05/13/17 VENT MGMT INPAT IN DAY 85597 05/13/17 Assessment/Plan - Problem List Patient Problems: All Active Problems COUGH AND CONGESTION (Acute) Congestive heart failure (CHF) (Acute) I50.9 congestive heart failure (Acute) hypertension uncontrolled with bradycarda (Acute) renal failure (Acute) - Assessment Assessment: Current Active Problems Problem Status Onset COUGH AND CONGESTION Acute Acute respiratory failure vent dependant ( failed weaning trial) Renal failure improving on HD MDRO Pneumonia Afib RVR UTI CAD 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 HTN renal disease Seizure disorder - Plan Plan: Awaiting LTAC transfer Case discussed with Nephrology may try weaning HD Vent weaning per Pulmonary recommendations Heparin sub Q Cardizem iv prn Metoprolol Tygacil per ID rec HD per nephrology rec Continue vent support PPN started for nutritional support Off vasopressor Feeding on hold due to tolerance issue Nutritional Asmnt/Malnutr-PDOC - Dietary Evaluation Malnutrition Findings (Please click <Entered> for more info): Nutritional Asmnt/Malnutrition Start: 05/15/17 13: 56 Text: Status: Complete Freq: Document 05/15/17 13:56 GSUN (Rec: 05/15/17 14:18 GSUN [id number]) Nutritional Asmnt/Malnutrition Patient General Information Nutritional Screening High Risk Screening Diagnosis PNA, NICK, icnreasing renal failure, CVA, CHF, DM Pertinent Medical Hx/Surgical Hx CVA, dementia, afib, CAD, HTN, dyslipidemia, epilepsy, GERD, aspiration PNA, DM, CKD, dehydration, C. diff, anemia D Subjective Information 86 year old male from SNF. Pt greeted RD. Pt is overall thin , moderate to severe wasting to chest, clavicles, extremities. Observed Glytrol running at 60ml/hr x20hrs during visit. Unable to obtain CBW due to bedscale not calibrated. Discussed with YEVTTE Farooq regarding tube feeding recommendations. Current Diet Order/ Nutrition Support Glytrol at 60ml/hr x 20hrs, providing 1200kcal 54g protein Pertinent Medications Lipitor, Novolog, Levemir, Cephulac, Morphine, Protonix, Nacl 0.9% Pertinent Labs 05/13: potassium 5.3H, BUN 80H, creatinine 2.4H, glucose 103 05/15: potassium WNL, BUN 70H, creatinine 2.4H, glucose 239H, A1c 6.1H, phosphorus 5.4H Nutritional Hx/Data Height 1.68 m Height (Calculated Centimeters) 167.6 Current Weight (lbs) 65.771 kg Weight (Calculated Kilograms) 65.8 Weight (Calculated Grams) 65304.9 [place] Body Weight 142 Weight Status Approriate GI Symptoms Difficult in: Swallowing Cultural/Ethnic/Taoist Belief [facility]: Glucerna 1.2 at 85ml/hr x 20hrs, providing 2040kcal, promote weight gain. Skin Integrity/Comment: Gee 12. Skin intact. Estimated Nutritional Goals Calories/Kcals/Kg CBW 145lb/65.9kg Kcals Calculated 1976-7kcal (30-35kcal/kg) Protein Calculated 46-92g (0.7-1.4g/kg, renal vs moderate to severe wasting) Fluid: ml Per MD (renal) Nutritional Problem 2. 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 Problem Problem Inadequate intake from enteral nutrition infusion related to Etiology estimated nutritional needs aeb Signs/Symptoms: providing to meet 61% lower end kcal needs Intervention/Recommendation Comments 1. Recommend Novasource Renal at 50ml/hr x 20hrs, providing 2000kcal and 91g protein. Current order Glytrol at 60ml/ hr x 20hrs is only providing 1200kcal, pt recieves 2040kcal at [facility]. Expected Outcomes/Goals Expected Outcomes/Goals 1. Pt to meet at least 100% of estimated nutritional needs on tube feeding with tolerance .
[2017-06-02] MEDS: Atorvastatin Calcium 10 MG TAB GT SCH (21:10)
[2017-06-03] MEDS: INSULIN ASPART SLIDING SCALE 100 UNITS/ML UNIT SUBQ SCH ×4 (00:27→17:31)
--- NOTE | 2017-06-03 00:43 | Progress Notes ---
DATE: 06/02/2017 PROBLEM LIST: 1.Persistent respiratory failure. 2.MDRO with pneumonia. 3.Congestive heart failure. 4.____ periodic status post cardiac arrest. SYMPTOMS: Nil. Looking from side to side, but not moving the hand or other meaningful response to the verbal stimuli. PHYSICAL EXAMINATION: VITAL SIGNS: Temperature is 98.6, blood pressure 118/61, saturation is 100% on 30% of oxygen. NECK: Veins not visualized. Good bilateral carotid upstroke. CHEST: Shows diminished air entry with occasional rhonchi. HEART: Regular. ABDOMEN: Soft, nontender. LABORATORY DATA: Sodium is 134. Creatinine is 3.1 and magnesium is 1.8. ASSESSMENT: The patient clinically not too much changed. PLANS AND SUGGESTIONS: We will go ahead and repeat blood gasses, chest x-ray, etc., and go from there. JOB# [id number]
[2017-06-03] MEDS: Albuterol/Ipratropium Neb 3 ML AERS HHN SCH ×6 (02:11→22:54)
[2017-06-03 05:29] LABS: % BASOPHILS 0.1 % (0.0-2.0); % EOSINOPHILS 0.8 % (0.0-5.0); % LYMPHOCYTES 12.3 % (20.0-50.0); % MONOCYTES 11.3 % (2.0-10.0); % NEUTROPHILS 75.5 % (40.0-80.0); HEMATOCRIT 26.2 % (39.0-49.0); HEMOGLOBIN 8.7 gm/dL (12.6-17.4); MEAN CELL VOLUME 82.9 fl (80-99); MEAN CORPUSCULAR HEMOGLOBIN 27.4 pg (27.0-31.0); MEAN PLATELET VOLUME 9.9 fl; NEUTROPHILE ABSOLUTE 6.7 Th/cmm (1.8-8.0); RED BLOOD COUNT 3.16 Mil/cmm (3.80-5.80); RED CELL DISTRIBUTION WIDTH 16.9 % (11.5-20.0); WHITE BLOOD COUNT 8.9 Th/cmm (4.8-10.8)
[2017-06-03 05:34] LABS: PLATELET COUNT 131 Th/cmm (150-400)
[2017-06-03 05:54] LABS: ALB/GLOB RATIO 1.1 (1.0-1.8); ALKALINE PHOSPHATASE 657 U/L (34-104); ANION GAP 10.6 (7.0-16.0); BILIRUBIN,TOTAL 2.7 mg/dL (0.3-1.0); BUN - UREA NITROGEN 55 mg/dL (7-25); BUN/CREATININE RATIO 21.2; CALCIUM SERUM 9.1 mg/dL (8.6-10.3); CARBON DIOXIDE 27.3 mEq/L (21.0-31.0); CHLORIDE 100 mEq/L (98-107); CREATININE - SERUM 2.6 mg/dL (0.7-1.3); GLUCOSE 195 mg/dL (70-105); MAGNESIUM 2.3 mg/dL (1.9-2.7); POTASSIUM SERUM 3.9 mEq/L (3.5-5.1); SGOT 75 U/L (13-39); SGPT/ALT 10 U/L (7-52); SODIUM SERUM 134 mEq/L (136-145)
[2017-06-03] MEDS: Budesonide 0.5 Mg/2 mL Ud HHN SCH ×2 (07:32→18:39)
[2017-06-03] MEDS: Chlorhexidine Gluconate 0.12% 15mL Mouthwash MM SCH ×2 (08:57→20:30)
[2017-06-03] MEDS: Metoclopramide 5 mg/mL 2mL Vial IVP SCH ×3 (08:58→20:23)
[2017-06-03] MEDS: Pantoprazole 40 mg/Packet GT SCH (08:58)
[2017-06-03] MEDS: Lactobacillus Rhamnosus 10 Billion CFU Capsule PO SCH (08:58)
[2017-06-03] MEDS: Levetiracetam 500 mg/5mL 5mL UDC NG SCH ×2 (08:58→16:03)
[2017-06-03 09:53] LABS: BE(B) 2.6 mEq/L (-3.0-3.0); HCO3 26.8 mEq/L (20.0-26.0); pH 7.38 (7.35-7.45)
[2017-06-03 09:54] LABS: ABG SOURCE Arterial; ALLEN TEST Positive; CRITICAL VALUES REPORTED BY AC; FIO2 30; MECH RATE 12; MECH VT 500; PS 15
--- NOTE | 2017-06-03 10:30 | Diagnostic Imaging Report ---
CHEST X-RAY: AP view INDICATION: CHF COMPARISON: 05/31/2017 FINDINGS: Endotracheal tube is seen with tip 3 cm above the matias. Right-sided dialysis catheter is stable. Findings of CHF/pulmonary edema seen with bilateral effusions with increase in size of left effusion and volume loss of the left lung. Diffuse pulmonary infiltrates are seen noted. Cardiomegaly is noted. IMPRESSION: CHF with bilateral pleural effusions infiltrates with increasing size of left effusion. Underlying pneumonia cannot be excluded. There has been volume loss of the left lung since prior exam. ET tube with tip 3 cm above the Matias.
[2017-06-03] MEDS ORDERED: Albumin 25% 25gm/100mL 25 GM/100 ML BTL IV ONE ×2 (13:51)
--- NOTE | 2017-06-03 14:42 | General Progress Note ---
Subjective - Review of Systems Service Date: 06/03/17 Subjective: less alert today , on vent, nonverbal Objective - Results Result Diagrams: 06/03/17 04:48 06/03/17 04:48 Recent Labs: Laboratory Last Values WBC 8.9 Th/cmm (4.8-10.8) 06/03/17 04:48 RBC 3.16 Mil/cmm (3.80-5.80) L 06/03/17 04:48 Hgb 8.7 gm/dL (12.6-17.4) L 06/03/17 04:48 Hct 26.2 % (39.0-49.0) L 06/03/17 04:48 MCV 82.9 fl (80-99) 06/03/17 04:48 MCH 27.4 pg (27.0-31.0) 06/03/17 04:48 MCHC Differential 33.0 pg (28.0-36.0) 06/03/17 04:48 RDW 16.9 % (11.5-20.0) 06/03/17 04:48 Plt Count 131 Th/cmm (150-400) L D 06/03/17 04:48 MPV 9.9 fl 06/03/17 04:48 Neutrophils % 75.5 % (40.0-80.0) 06/03/17 04:48 Band Neutrophils % 2 % (0-10) 05/26/17 04:40 Lymphocytes % 12.3 % (20.0-50.0) L 06/03/17 04:48 Monocytes % 11.3 % (2.0-10.0) H 06/03/17 04:48 Eosinophils % 0.8 % (0.0-5.0) 06/03/17 04:48 Basophils % 0.1 % (0.0-2.0) 06/03/17 04:48 Neutrophils (Manual) 89 % (40-80) H 05/26/17 04:40 Lymphocytes 5 % (20-50) L 05/26/17 04:40 Monocytes 4 % (2-10) 05/26/17 04:40 Eosinophils 0 % (0-5) 05/24/17 04:49 Basophils 0 % (0-3) 05/24/17 04:49 Metamyelocytes 1 % (0-0) H 05/22/17 04:44 Toxic Granulation 1+ 05/23/17 04:48 Platelet Estimate ADEQUATE (NORMAL) 05/26/17 04:40 Platelet Morphology NORMAL (NORMAL) 05/26/17 04:40 Anisocytosis 1+ 05/22/17 04:44 RBC Morph Micro Appear NORMAL (NORMAL) 05/26/17 04:40 Eos Smear Source URINE 05/14/17 18:00 Eos Smear Total Cells FEW EOSINOPHILS SEEN (NONE SEEN) 05/14/17 18:00 PT 11.9 SECONDS (9.5-11.5) H 05/13/17 17:42 INR 1.13 (0.5-1.4) 05/13/17 17:42 PTT (Actin FS) 30.5 SECONDS (26.0-38.0) 05/15/17 12:30 Specimen Source Arterial 06/03/17 09:34 Sample Site Right Radial 06/03/17 09:34 pH 7.38 (7.35-7.45) 06/03/17 09:34 pCO2 48.0 mmHg (35.0-45.0) H 06/03/17 09:34 pO2 61.0 mmHg (80.0-100.0) L 06/03/17 09:34 HCO3 26.8 mEq/L (20.0-26.0) H 06/03/17 09:34 Base Excess 2.6 mEq/L (-3.0-3.0) 06/03/17 09:34 O2 Saturation 90.0 % (92.0-100.0) L 06/03/17 09:34 Feliciano Test Positive 06/03/17 09:34 Vent Rate 12 06/03/17 09:34 Inspired O2 30 06/03/17 09:34 Tidal Volume 500 06/03/17 09:34 PEEP 0 06/03/17 09:34 Pressure (ins/psv/peep) 15 06/03/17 09:34 Critical Value AC 06/03/17 09:34 Sodium 134 mEq/L (136-145) L 06/03/17 04:48 Potassium 3.9 mEq/L (3.5-5.1) 06/03/17 04:48 Chloride 100 mEq/L (98-107) 06/03/17 04:48 Carbon Dioxide 27.3 mEq/L (21.0-31.0) 06/03/17 04:48 Anion Gap 10.6 (7.0-16.0) 06/03/17 04:48 BUN 55 mg/dL (7-25) H 06/03/17 04:48 Creatinine 2.6 mg/dL (0.7-1.3) H 06/03/17 04:48 Est GFR ( Amer) TNP 06/03/17 04:48 Est GFR (Non-Af Amer) TNP 06/03/17 04:48 BUN/Creatinine Ratio 21.2 06/03/17 04:48 Glucose 195 mg/dL (70-105) H 06/03/17 04:48 POC Glucose 182 MG/DL (70 - 105) H 06/03/17 05:24 Hemoglobin A1c % 6.1 % (4.0-6.0) H 05/15/17 06:30 Plasma/Ser Osmolality 301 mOsmol/kg (280-301) 05/14/17 18:20 Whole Bld Lactic Acid 1.58 mmol/L (0.60-1.99) 05/13/17 17:42 Uric Acid 7.7 mg/dL (4.4-7.6) H 05/15/17 06:30 Calcium 9.1 mg/dL (8.6-10.3) 06/03/17 04:48 Phosphorus 3.3 mg/dL (2.5-5.0) 06/03/17 04:48 Magnesium 2.3 mg/dL (1.9-2.7) 06/03/17 04:48 Total Bilirubin 2.7 mg/dL (0.3-1.0) H 06/03/17 04:48 Direct Bilirubin 0.09 mg/dL (0.0-0.2) 05/19/17 04:50 AST 75 U/L (13-39) H 06/03/17 04:48 ALT 10 U/L (7-52) 06/03/17 04:48 Alkaline Phosphatase 657 U/L (34-104) H 06/03/17 04:48 Ammonia 65 umol/L (16-53) H 05/19/17 04:50 Creatine Kinase 35 U/L (30-223) 05/16/17 23:06 Troponin I 0.02 ng/mL (0.01-0.05) 05/16/17 23:06 B-Natriuretic Peptide 739.0 pg/mL (5.0-100.0) H 05/23/17 04:48 Total Protein 5.7 gm/dL (6.0-8.3) L 06/03/17 04:48 Albumin 3.0 gm/dL (4.2-5.5) L 06/03/17 04:48 Globulin 2.7 gm/dL 06/03/17 04:48 Albumin/Globulin Ratio 1.1 (1.0-1.8) 06/03/17 04:48 Prealbumin 6 mg/dL (9-32) L 05/30/17 04:47 Triglycerides 53 mg/dL (<150) 05/30/17 04:47 Cholesterol 42 mg/dL (<200) 05/30/17 04:47 TSH 2.74 uIU/ml (0.34-5.60) 05/15/17 06:30 Urine Source CATH 05/13/17 19:50 Urine Color YELLOW 05/13/17 19:50 Urine Clarity CLOUDY (CLEAR) 05/13/17 19:50 Urine pH 6.0 05/13/17 19:50 Ur Specific [place] 1.015 (1.005-1.030) 05/13/17 19:50 Urine Protein 100 mg/dL (NEGATIVE) H 05/13/17 19:50 Urine Glucose (UA) NEGATIVE mg/dL (NEGATIVE) 05/13/17 19:50 Urine Ketones NEGATIVE mg/dL (NEGATIVE) 05/13/17 19:50 Urine Blood LARGE (NEGATIVE) H 05/13/17 19:50 Urine Nitrate NEGATIVE (NEGATIVE) 05/13/17 19:50 Urine Bilirubin NEGATIVE (NEGATIVE) 05/13/17 19:50 Urine Urobilinogen 0.2 E.U./dL (0.2 - 1.0) 05/13/17 19:50 Ur Leukocyte Esterase LARGE (NEGATIVE) H 05/13/17 19:50 Urine RBC 50-100 /hpf (0-5) H 05/13/17 19:50 Urine WBC >100 /hpf (0-5) H 05/13/17 19:50 Ur Epithelial Cells NONE SEEN /lpf (FEW) 05/13/17 19:50 Urine Bacteria NONE SEEN /hpf (NONE SEEN) 05/13/17 19:50 Ur Random Sodium 30 mmol/L 05/14/17 18:00 Urine Creatinine 36.4 mg/dl (Not Estab.) 05/14/17 18:00 Urine Microalbumin 363.5 ug/mL (Not Estab.) 05/14/17 18:00 Microalb/Creat Ratio 998.6 mg/g creat (0.0-30.0) H 05/14/17 18:00 Stool Occult Blood NEGATIVE (NEGATIVE) 05/25/17 17:49 Random Vancomycin 19.1 ug/mL (5.0-40.0) 05/19/17 04:50 Hepatitis A IgM Ab Negative (Negative) 05/21/17 04:46 Hep Bs Antigen Negative (Negative) 05/21/17 04:46 Hep B Core IgM Ab Negative (Negative) 05/21/17 04:46 Hepatitis C Antibody 0.1 s/co ratio (0.0-0.9) 05/21/17 04:46 Blood Type B POSITIVE 05/21/17 10:19 Antibody Screen NEGATIVE 05/21/17 10:19 Crossmatch See Detail 05/21/17 10:19 - Physical Exam Vitals and I&O: Vital Signs Temp 98.6 F 06/03/17 12:00 Pulse 82 06/03/17 14:00 Resp 15 06/03/17 14:00 BP 112/70 06/03/17 14:00 Pulse Ox 100 06/03/17 14:00 Intake & Output 06/02/17 06/03/17 06/03/17 18:59 06:59 18:59 Intake Total 730 680 100 Output Total 450 400 Balance 280 280 100 Weight (lbs) 65.317 kg 65.771 kg 65.589 kg Intake: Intake, IV Amount 100 100 100 Tigecycline 50 mg In 100 100 100 Sodium Chloride 0.9% 100 ml @ 100 mls/hr IV Q12H [facility] Rx#:[id number] Oral 0 TPN/PPN 480 480 Other 150 100 Output: Urine 450 400 Other: # Bowel Movements 1 1 Active Medications: Current Medications Acetaminophen (Tylenol) 650 mg PO Q4HR PRN PRN Reason: Pain Or Fever above 101 Stop: 07/14/17 15:15 Last Admin: 05/23/17 15:07 Dose: 650 mg Albuterol/Ipratropium (Duoneb Neb) 3 ml HHN Q4HRT [facility] Stop: 07/19/17 14:59 Last Admin: 06/03/17 11:38 Dose: 3 ml Atorvastatin Calcium (Lipitor) 10 mg GT HS YESSICA PRN Reason: Protocol Stop: 07/14/17 20:59 Last Admin: 06/02/17 21:10 Dose: 10 mg Budesonide (Pulmicort) 1 mg HHN BIDRT [facility] Stop: 07/19/17 18:59 Last Admin: 06/03/17 07:32 Dose: 1 mg Carbidopa/Levodopa (Sinemet 25mg-100 Mg) 1 tab PO TID [facility] Stop: 07/14/17 08:59 Last Admin: 06/03/17 13:37 Dose: 1 tab Chlorhexidine Gluconate (Peridex) 15 ml MM 0800,1999 [facility] Stop: 07/23/17 19:59 Last Admin: 06/03/17 08:57 Dose: 15 ml Clonidine HCl (Catapres) 0.1 mg PO Q6HR PRN PRN Reason: BP MAINTENANCE (PER PROTOCOL) Stop: 07/28/17 13:31 Last Admin: 05/29/17 21:04 Dose: 0.1 mg Colistimethate Sodium (Colistin) 75 mg HHN BIDRT [facility] Stop: 07/30/17 18:59 Last Admin: 06/03/17 07:32 Dose: 75 mg Dextrose (D50w) 50 ml IVP PRN PRN; Protocol PRN Reason: HYPOGLYCEMIA Stop: 07/20/17 00:54 Last Admin: 05/22/17 23:34 Dose: 50 ml Diltiazem HCl (Cardizem) 10 mg IVP Q6HR PRN PRN Reason: HR >130 Stop: 07/22/17 17:09 Last Admin: 05/24/17 04:21 Dose: 10 mg Furosemide (Lasix) 40 mg IVP DAILY [facility] Stop: 07/18/17 08:59 Last Admin: 06/03/17 08:58 Dose: 40 mg Heparin Sodium (Porcine) (Heparin) 5,000 units SUBQ Q8HR [facility] Stop: 08/01/17 20:59 Last Admin: 06/03/17 04:30 Dose: 5,000 units Hydralazine HCl (Apresoline 20 Mg/Ml) 10 mg IV Q6HR PRN PRN Reason: BP MAINTENANCE (PER PROTOCOL) Stop: 07/30/17 13:09 Last Admin: 06/01/17 08:09 Dose: 10 mg Norepinephrine Bitartrate 8 mg (/ Dextrose) 258 mls @ 0 mls/hr IV TITR PRN; Protocol; Titrate PRN Reason: BP MAINTENANCE (PER PROTOCOL) Stop: 07/19/17 12:29 Last Admin: 05/21/17 01:06 Dose: 10 mcg/min, 19.35 mls/hr Phenylephrine HCl 10 mg/ (Sodium Chloride) 250 mls @ 0 mls/hr IV TITR YESSICA; Per Protocol PRN Reason: Protocol Stop: 07/19/17 12:59 Tigecycline 50 mg/ Sodium (Chloride) 100 mls @ 100 mls/hr IV Q12H [facility] Stop: 07/21/17 18:59 Last Infusion: 06/03/17 07:30 Dose: Infused Albumin Human (Albuminar 25%) 25 gm in 100 mls @ 50 mls/hr IV X1 ONE Stop: 06/03/17 15:50 Albumin Human (Albuminar 25%) 25 gm in 100 mls @ 50 mls/hr IV X1 ONE Stop: 06/03/17 15:50 Multivitamins/Minerals 10 ml/Dextrose/ Amino Acids/Electrolytes/ Fat Emulsion Intravenous 960 mls @ 40 mls/hr IV .Q24H [facility] Stop: 08/01/17 14:59 Last Admin: 06/02/17 15:38 Dose: 40 mls/hr Insulin Aspart (Novolog Insulin Sliding Scale) 0 units SUBQ Q6HR YESSICA PRN Reason: Protocol Stop: 07/14/17 00:00 Last Admin: 06/03/17 11:36 Dose: 2 units Isosorbide Dinitrate (Isordil) 20 mg GT TID [facility] Stop: 07/28/17 13:33 Last Admin: 06/03/17 13:37 Dose: 20 mg Lactobacillus Rhamnosus (Culturelle) 1 each PO DAILY [facility] Stop: 07/17/17 08:59 Last Admin: 06/03/17 08:58 Dose: 1 each Levetiracetam (Keppra) 250 mg NG BID [facility] Stop: 07/14/17 08:59 Last Admin: 06/03/17 08:58 Dose: 250 mg Metoclopramide HCl (Reglan) 5 mg IVP TID [facility] Stop: 07/20/17 20:59 Last Admin: 06/03/17 13:37 Dose: 5 mg Metoprolol Tartrate (Lopressor) 50 mg GT Q8H [facility] Stop: 07/18/17 08:59 Last Admin: 06/03/17 08:57 Dose: 50 mg Miscellaneous (Vte Chemical Prophylaxis Screen/ Admission) 1 ea MC PRN PRN PRN Reason: PROTOCOL Stop: 07/14/17 09:25 Miscellaneous (Clinical Monitoring) 1 ea MC DAILY PRN PRN Reason: RENAL Stop: 07/15/17 12:32 Miscellaneous (Probiotic Screen) 1 ea MC PRN PRN PRN Reason: PROTOCOL Stop: 07/16/17 09:33 Miscellaneous (Tpn Per Pharmacy) 1 ea MC PRN PRN PRN Reason: PROTOCOL Stop: 07/24/17 15:59 Pantoprazole Sodium (Protonix) 40 mg GT DAILY [facility] Stop: 07/14/17 08:59 Last Admin: 06/03/17 08:58 Dose: 40 mg General: No acute distress, Other (open eyes but not interractive), no Alert HEENT: Atraumatic, EOMI (normal), Mucous membr. moist/pink Neck: Supple, +2 carotid pulse wo bruit Cardiovascular: Regular rate, Normal S1, Normal S2, Other (afib with fluctuating heart rate) Lungs: Other (occasional rhonchi) Abdomen: Soft Extremities: no Edema (no edema) Neurological: Sensation intact, Other (lethargic) Skin: no Rash Psych/Mental Status: Mood NL - Procedures Procedures: Procedures Procedure Code Date INSERT EMERGENCY AIRWAY 02355 05/13/17 INSERT TUNNELED CV CATH [id number] 05/13/17 INSERTION OF ENDOTRACHEAL AIRWAY INTO TRACHEA, VIA OPENING [id number] 05/13/17 INSERTION OF INFUSION DEV INTO R FEMOR VEIN, PERC APPROACH [id number] 05/13/17 RESPIRATORY VENTILATION, GREATER THAN 96 CONSECUTIVE HOURS [id number] 05/13/17 VENT MGMT INPAT INIT DAY 69202 05/13/17 Assessment/Plan - Problem List Patient Problems: All Active Problems COUGH AND CONGESTION (Acute) Congestive heart failure (CHF) (Acute) I50.9 congestive heart failure (Acute) hypertension uncontrolled with bradycarda (Acute) renal failure (Acute) - Assessment Assessment: NICK on CKD, now on dialysis A LOC secondary to metabolic encephalopathy/medications Dehydration Essential hypertension with CKD COPD Chronic atrial fibrillation Status post CVA Aspiration pneumonia/dysphagia status post PEG Type 2 diabetes mellitus with CKD Acute Decompensated CHF Acute Resp Failure on Vent - Plan Plan: Lab - Result Diagrams 05/15/17 06:30 05/15/17 06:30 Current Medications Acetaminophen (Tylenol) 650 mg PO Q4HR PRN PRN Reason: Pain Or Fever above 101 Stop: 07/14/17 15:15 Last Admin: 05/15/17 16:21 Dose: 650 mg Albuterol Sulfate (Albuterol 2.5mg/3ml Neb Ud) 2.5 mg HHN Q6HRT YESSICA Stop: 07/14/17 00:59 Last Admin: 05/15/17 16:05 Dose: 2.5 mg Atorvastatin Calcium (Lipitor) 10 mg GT HS YESSICA PRN Reason: Protocol Stop: 07/14/17 20:59 Carbidopa/Levodopa (Sinemet 25mg-100 Mg) 1 tab PO TID YESSICA Stop: 07/14/17 08:59 Last Admin: 05/15/17 14:02 Dose: 1 tab Heparin Sodium (Porcine) (Heparin) 5,000 units SUBQ Q8H YESSICA Stop: 07/14/17 14:59 Last Admin: 05/15/17 16:24 Dose: 5,000 units Sodium Chloride (Nacl 0.9%) 1,000 mls @ 60 mls/hr IV .[id number] YESSICA Stop: 07/13/17 06:40 Last Admin: 05/14/17 17:16 Dose: 60 mls/hr Azithromycin 250 mg/ Sodium (Chloride) 250 mls @ 250 mls/hr IV Q24HR YESSICA Stop: 05/20/17 08:59 Piperacillin Sod/Tazobactam (Sod 3.375 gm/ Sodium Chloride) 50 mls @ 100 mls/ hr IV Q8HR YESSICA Stop: 07/14/17 15:14 Last Admin: 05/15/17 15:57 Dose: 100 mls/hr Insulin Aspart (Novolog Insulin Sliding Scale) 0 units SUBQ Q6HR YESSICA PRN Reason: Protocol Stop: 07/14/17 00:00 Last Admin: 05/15/17 17:09 Dose: Not Given Insulin Detemir (Levemir Insulin) 14 units SUBQ DAILY [facility] PRN Reason: Protocol Stop: 07/15/17 08:59 Isosorbide Dinitrate (Isordil) 10 mg GT TID YESSICA Stop: 07/14/17 08:59 Last Admin: 05/15/17 14:02 Dose: 10 mg Lactulose (Cephulac) 20 gm PO TID YESSICA Stop: 07/14/17 08:59 Last Admin: 05/15/17 14:02 Dose: 20 gm Levetiracetam (Keppra) 250 mg NG BID [facility] Stop: 07/14/17 08:59 Last Admin: 05/15/17 16:23 Dose: 250 mg Metoprolol Tartrate (Lopressor) 37.5 mg GT BID [facility] Stop: 07/14/17 00:14 Last Admin: 05/15/17 16:22 Dose: 37.5 mg Miscellaneous (Vte Chemical Prophylaxis Screen/ Admission) 1 ea PRN PRN PRN Reason: PROTOCOL Stop: 07/14/17 09:25 Morphine Sulfate (Morphine) 2 mg IVP Q3H PRN PRN Reason: PAIN Stop: 07/13/17 19:46 Last Admin: 05/14/17 21:16 Dose: 2 mg Mupirocin (Bactroban Oint) 1 appl TP BID [facility] Stop: 07/14/17 16:59 Last Admin: 05/15/17 16:24 Dose: 1 appl Pantoprazole Sodium (Protonix) 40 mg GT DAILY [facility] Stop: 07/14/17 08:59 Last Admin: 05/15/17 08:36 Dose: 40 mg Rifaximin (Xifaxan) 550 mg GT BID [facility] Stop: 07/14/17 08:59 Last Admin: 05/15/17 16:23 Dose: 550 mg Latest BUN/CR were 59/2.6 White count down to 8.9 on Zosyn Chest x-ray still w/ b/l infiltrates, effusions, no significant change Reviewed his meds Follow-up electrolytes currently on PPN @ 40 ml /hr prognosis poor Hgb/Hct down to 8.7/26.2 scheduled for HD today Follow-up electrolytes, CBC and chest x-ray in a.m. urine nadine 850ml Lab - Result Diagrams 05/24/17 04:49 05/24/17 04:49 addendum: Poor response to diuretics, w/ worsening CHF, BNP level developed resp failure, required intubation worsening cardio-renal syndrome discussed w/ grandson Pedro, about poor prognosis but still want to proceed w/ dialysis Nutritional Asmnt/Malnutr-PDOC - Dietary Evaluation Malnutrition Findings (Please click <Entered> for more info): Nutritional Asmnt/Malnutrition Start: 05/15/17 13: 56 Text: Status: Complete Freq: Document 05/15/17 13:56 GSUN (Rec: 05/15/17 14:18 GSUN [id number]) Nutritional Asmnt/Malnutrition Patient General Information Nutritional Screening High Risk Screening Diagnosis PNA, NICK, icnreasing renal failure, CVA, CHF, DM Pertinent Medical Hx/Surgical Hx CVA, dementia, afib, CAD, HTN, dyslipidemia, epilepsy, GERD, aspiration PNA, DM, CKD, dehydration, C. diff, anemia D Subjective Information 86 year old male from SNF. Pt greeted RD. Pt is overall thin , moderate to severe wasting to chest, clavicles, extremities. Observed Glytrol running at 60ml/hr x20hrs during visit. Unable to obtain CBW due to bedscale not calibrated. Discussed with YVETTE Farooq regarding tube feeding recommendations. Current Diet Order/ Nutrition Support Glytrol at 60ml/hr x 20hrs, providing 1200kcal 54g protein Pertinent Medications Lipitor, Novolog, Levemir, Cephulac, Morphine, Protonix, Nacl 0.9% Pertinent Labs 05/13: potassium 5.3H, BUN 80H, creatinine 2.4H, glucose 103 05/15: potassium WNL, BUN 70H, creatinine 2.4H, glucose 239H, A1c 6.1H, phosphorus 5.4H Nutritional Hx/Data Height 1.68 m Height (Calculated Centimeters) 167.6 Current Weight (lbs) 65.771 kg Weight (Calculated Kilograms) 65.8 Weight (Calculated Grams) 44725.9 [place] Body Weight 142 Weight Status Approriate GI Symptoms Difficult in: Swallowing Cultural/Ethnic/[employer] [place] [facility]: Glucerna 1.2 at 85ml/hr x 20hrs, providing 2040kcal, promote weight gain. Skin Integrity/Comment: Gee 12. Skin intact. Estimated Nutritional Goals Calories/Kcals/Kg CBW 145lb/65.9kg Kcals Calculated 1976-7kcal (30-35kcal/kg) Protein Calculated 46-92g (0.7-1.4g/kg, renal vs moderate to severe wasting) Fluid: ml Per MD (renal) Nutritional Problem 2. Problem Problem Impaired nutrient utilization related to Etiology NICK, hx CKD aeb Signs/Symptoms: "increasing renal failure," potaasum 5.3H on adm, BUN 70H, manager testing 2.4H, phosphorus 5.4H 1. Problem Problem Inadequate intake from enteral nutrition infusion related to Etiology estimated nutritional needs aeb Signs/Symptoms: providing to meet 61% lower end kcal needs Intervention/Recommendation Comments 1. Recommend Novasource Renal at 50ml/hr x 20hrs, providing 2000kcal and 91g protein. Current order Glytrol at 60ml/ hr x 20hrs is only providing 1200kcal, pt recieves 2040kcal at [facility]. Expected Outcomes/Goals Expected Outcomes/Goals 1. Pt to meet at least 100% of estimated nutritional needs on tube feeding with tolerance .
[2017-06-03] MEDS: TPN 10%-70% CUSTOM IV SCH (15:52)
--- NOTE | 2017-06-03 17:52 | History & Physical ---
ADMIT DATE: 06/03/2017 REFERRING PHYSICIAN: Eyad Montano M.D. REASON FOR CONSULTATION: Thrombocytopenia. HISTORY OF PRESENT ILLNESS: The patient is an 86-year-old male with multiple medical problems, presented with cough, respiratory symptoms, intubated, and he had normal platelet count, today his platelet count was found to be 131, therefore, I was asked to evaluate. PAST MEDICAL HISTORY: Chronic atrial fibrillation, coronary artery disease, COPD, history of dementia, and CVA. MEDICATIONS: Reviewed. He has been on heparin infusion since he was admitted. Prior to that he was on Xarelto. He is on antibiotics . PHYSICAL EXAMINATION: GENERAL: The patient is arousable, on hemolysis, on ventilator, intubated orally. There were no signs of bleeding. There is generalized edema. ABDOMEN: Gastric tube in place that is not being used. LABORATORY DATA: White count 8.9, hemoglobin 8.7, platelets 131, creatinine 2.6, total bilirubin 2.7. Liver functions are raising in the last few days. ASSESSMENT AND PLAN: Mild thrombocytopenia, recent onset, likely drug induced by Protonix or other etiologies. I will obtain DIC panel. No need for intervention at this time. I will also obtain for the anemia workup. Thank you, Dr. Montano, for the opportunity to participate in the care of this interesting case JOB# [id number]
[2017-06-03] MEDS: Atorvastatin Calcium 10 MG TAB GT SCH (20:26)
--- NOTE | 2017-06-03 20:59 | General Progress Note ---
Subjective - Review of Systems Service Date: 06/03/17 Subjective: Patient seen and examined less awake was getting HD Objective - Results Result Diagrams: 06/03/17 04:48 06/03/17 04:48 Recent Labs: Laboratory Last Values WBC 8.9 Th/cmm (4.8-10.8) 06/03/17 04:48 RBC 3.16 Mil/cmm (3.80-5.80) L 06/03/17 04:48 Hgb 8.7 gm/dL (12.6-17.4) L 06/03/17 04:48 Hct 26.2 % (39.0-49.0) L 06/03/17 04:48 MCV 82.9 fl (80-99) 06/03/17 04:48 MCH 27.4 pg (27.0-31.0) 06/03/17 04:48 MCHC Differential 33.0 pg (28.0-36.0) 06/03/17 04:48 RDW 16.9 % (11.5-20.0) 06/03/17 04:48 Plt Count 131 Th/cmm (150-400) L D 06/03/17 04:48 MPV 9.9 fl 06/03/17 04:48 Neutrophils % 75.5 % (40.0-80.0) 06/03/17 04:48 Band Neutrophils % 2 % (0-10) 05/26/17 04:40 Lymphocytes % 12.3 % (20.0-50.0) L 06/03/17 04:48 Monocytes % 11.3 % (2.0-10.0) H 06/03/17 04:48 Eosinophils % 0.8 % (0.0-5.0) 06/03/17 04:48 Basophils % 0.1 % (0.0-2.0) 06/03/17 04:48 Neutrophils (Manual) 89 % (40-80) H 05/26/17 04:40 Lymphocytes 5 % (20-50) L 05/26/17 04:40 Monocytes 4 % (2-10) 05/26/17 04:40 Eosinophils 0 % (0-5) 05/24/17 04:49 Basophils 0 % (0-3) 05/24/17 04:49 Metamyelocytes 1 % (0-0) H 05/22/17 04:44 Toxic Granulation 1+ 05/23/17 04:48 Platelet Estimate ADEQUATE (NORMAL) 05/26/17 04:40 Platelet Morphology NORMAL (NORMAL) 05/26/17 04:40 Anisocytosis 1+ 05/22/17 04:44 RBC Morph Micro Appear NORMAL (NORMAL) 05/26/17 04:40 Eos Smear Source URINE 05/14/17 18:00 Eos Smear Total Cells FEW EOSINOPHILS SEEN (NONE SEEN) 05/14/17 18:00 PT 11.9 SECONDS (9.5-11.5) H 05/13/17 17:42 INR 1.13 (0.5-1.4) 05/13/17 17:42 PTT (Actin FS) 30.5 SECONDS (26.0-38.0) 05/15/17 12:30 Specimen Source Arterial 06/03/17 09:34 Sample Site Right Radial 06/03/17 09:34 pH 7.38 (7.35-7.45) 06/03/17 09:34 pCO2 48.0 mmHg (35.0-45.0) H 06/03/17 09:34 pO2 61.0 mmHg (80.0-100.0) L 06/03/17 09:34 HCO3 26.8 mEq/L (20.0-26.0) H 06/03/17 09:34 Base Excess 2.6 mEq/L (-3.0-3.0) 06/03/17 09:34 O2 Saturation 90.0 % (92.0-100.0) L 06/03/17 09:34 [place] Test Positive 06/03/17 09:34 Vent Rate 12 06/03/17 09:34 Inspired O2 30 06/03/17 09:34 Tidal Volume 500 06/03/17 09:34 PEEP 0 06/03/17 09:34 Pressure (ins/psv/peep) 15 06/03/17 09:34 Critical Value AC 06/03/17 09:34 Sodium 134 mEq/L (136-145) L 06/03/17 04:48 Potassium 3.9 mEq/L (3.5-5.1) 06/03/17 04:48 Chloride 100 mEq/L (98-107) 06/03/17 04:48 Carbon Dioxide 27.3 mEq/L (21.0-31.0) 06/03/17 04:48 Anion Gap 10.6 (7.0-16.0) 06/03/17 04:48 BUN 55 mg/dL (7-25) H 06/03/17 04:48 Creatinine 2.6 mg/dL (0.7-1.3) H 06/03/17 04:48 Est GFR ( Amer) TNP 06/03/17 04:48 Est GFR (Non-Af Amer) TNP 06/03/17 04:48 BUN/Creatinine Ratio 21.2 06/03/17 04:48 Glucose 195 mg/dL (70-105) H 06/03/17 04:48 POC Glucose 170 MG/DL (70 - 105) H 06/03/17 17:25 Hemoglobin A1c % 6.1 % (4.0-6.0) H 05/15/17 06:30 Plasma/Ser Osmolality 301 mOsmol/kg (280-301) 05/14/17 18:20 Whole Bld Lactic Acid 1.58 mmol/L (0.60-1.99) 05/13/17 17:42 Uric Acid 7.7 mg/dL (4.4-7.6) H 05/15/17 06:30 Calcium 9.1 mg/dL (8.6-10.3) 06/03/17 04:48 Phosphorus 3.3 mg/dL (2.5-5.0) 06/03/17 04:48 Magnesium 2.3 mg/dL (1.9-2.7) 06/03/17 04:48 Total Bilirubin 2.7 mg/dL (0.3-1.0) H 06/03/17 04:48 Direct Bilirubin 0.09 mg/dL (0.0-0.2) 05/19/17 04:50 AST 75 U/L (13-39) H 06/03/17 04:48 ALT 10 U/L (7-52) 06/03/17 04:48 Alkaline Phosphatase 657 U/L (34-104) H 06/03/17 04:48 Ammonia 65 umol/L (16-53) H 05/19/17 04:50 Creatine Kinase 35 U/L (30-223) 05/16/17 23:06 Troponin I 0.02 ng/mL (0.01-0.05) 05/16/17 23:06 B-Natriuretic Peptide 739.0 pg/mL (5.0-100.0) H 05/23/17 04:48 Total Protein 5.7 gm/dL (6.0-8.3) L 06/03/17 04:48 Albumin 3.0 gm/dL (4.2-5.5) L 06/03/17 04:48 Globulin 2.7 gm/dL 06/03/17 04:48 Albumin/Globulin Ratio 1.1 (1.0-1.8) 06/03/17 04:48 Prealbumin 6 mg/dL (9-32) L 05/30/17 04:47 Triglycerides 53 mg/dL (<150) 05/30/17 04:47 Cholesterol 42 mg/dL (<200) 05/30/17 04:47 TSH 2.74 uIU/ml (0.34-5.60) 05/15/17 06:30 Urine Source CATH 05/13/17 19:50 Urine Color YELLOW 05/13/17 19:50 Urine Clarity CLOUDY (CLEAR) 05/13/17 19:50 Urine pH 6.0 05/13/17 19:50 Ur Specific [place] 1.015 (1.005-1.030) 05/13/17 19:50 Urine Protein 100 mg/dL (NEGATIVE) H 05/13/17 19:50 Urine Glucose (UA) NEGATIVE mg/dL (NEGATIVE) 05/13/17 19:50 Urine Ketones NEGATIVE mg/dL (NEGATIVE) 05/13/17 19:50 Urine Blood LARGE (NEGATIVE) H 05/13/17 19:50 Urine Nitrate NEGATIVE (NEGATIVE) 05/13/17 19:50 Urine Bilirubin NEGATIVE (NEGATIVE) 05/13/17 19:50 Urine Urobilinogen 0.2 E.U./dL (0.2 - 1.0) 05/13/17 19:50 Ur Leukocyte Esterase LARGE (NEGATIVE) H 05/13/17 19:50 Urine RBC 50-100 /hpf (0-5) H 05/13/17 19:50 Urine WBC >100 /hpf (0-5) H 05/13/17 19:50 Ur Epithelial Cells NONE SEEN /lpf (FEW) 05/13/17 19:50 Urine Bacteria NONE SEEN /hpf (NONE SEEN) 05/13/17 19:50 Ur Random Sodium 30 mmol/L 05/14/17 18:00 Urine Creatinine 36.4 mg/dl (Not Estab.) 05/14/17 18:00 Urine Microalbumin 363.5 ug/mL (Not Estab.) 05/14/17 18:00 Microalb/Creat Ratio 998.6 mg/g creat (0.0-30.0) H 05/14/17 18:00 Stool Occult Blood NEGATIVE (NEGATIVE) 05/25/17 17:49 Random Vancomycin 19.1 ug/mL (5.0-40.0) 05/19/17 04:50 Hepatitis A IgM Ab Negative (Negative) 05/21/17 04:46 Hep Bs Antigen Negative (Negative) 05/21/17 04:46 Hep B Core IgM Ab Negative (Negative) 05/21/17 04:46 Hepatitis C Antibody 0.1 s/co ratio (0.0-0.9) 05/21/17 04:46 Blood Type B POSITIVE 05/21/17 10:19 Antibody Screen NEGATIVE 05/21/17 10:19 Crossmatch See Detail 05/21/17 10:19 - Physical Exam Vitals and I&O: Vital Signs Temp 98.4 F 06/03/17 16:00 Pulse 82 06/03/17 20:27 Resp 17 06/03/17 18:00 BP 144/64 06/03/17 20:27 Pulse Ox 99 06/03/17 18:40 Intake & Output 06/03/17 06/03/17 06/04/17 06:59 18:59 06:59 Intake Total 680 1060 630 Output Total 400 450 Balance 280 1060 180 Weight (lbs) 65.771 kg 65.589 kg 65.363 kg Intake: Intake, IV Amount 100 1060 Multivitamin Inj 10 ml In 960 Dextrose 70% 250 ml In Amino Acids 10% 500 ml In Intralipids 20% 200 ml @ 40 mls/hr IV .Q24H YESSICA Rx#:[id number] Tigecycline 50 mg In 100 100 Sodium Chloride 0.9% 100 ml @ 100 mls/hr IV Q12H YESSICA Rx#:[id number] Oral 0 0 TPN/PPN 480 480 Other 100 150 Output: Urine 400 450 Other: # Bowel Movements 1 1 Stool Characteristics Liquid Active Medications: Current Medications Acetaminophen (Tylenol) 650 mg PO Q4HR PRN PRN Reason: Pain Or Fever above 101 Stop: 07/14/17 15:15 Last Admin: 05/23/17 15:07 Dose: 650 mg Albuterol/Ipratropium (Duoneb Neb) 3 ml HHN Q4HRT [facility] Stop: 07/19/17 14:59 Last Admin: 06/03/17 18:39 Dose: 3 ml Atorvastatin Calcium (Lipitor) 10 mg GT HS YESSICA PRN Reason: Protocol Stop: 07/14/17 20:59 Last Admin: 06/03/17 20:26 Dose: 10 mg Budesonide (Pulmicort) 1 mg HHN BIDRT [facility] Stop: 07/19/17 18:59 Last Admin: 06/03/17 18:39 Dose: 1 mg Carbidopa/Levodopa (Sinemet 25mg-100 Mg) 1 tab PO TID [facility] Stop: 07/14/17 08:59 Last Admin: 06/03/17 20:26 Dose: 1 tab Chlorhexidine Gluconate (Peridex) 15 ml MM 0800,2000 [facility] Stop: 07/23/17 19:59 Last Admin: 06/03/17 20:30 Dose: 15 ml Clonidine HCl (Catapres) 0.1 mg PO Q6HR PRN PRN Reason: BP MAINTENANCE (PER PROTOCOL) Stop: 07/28/17 13:31 Last Admin: 05/29/17 21:04 Dose: 0.1 mg Colistimethate Sodium (Colistin) 75 mg HHN BIDRT [facility] Stop: 07/30/17 18:59 Last Admin: 06/03/17 18:40 Dose: 75 mg Dextrose (D50w) 50 ml IVP PRN PRN; Protocol PRN Reason: HYPOGLYCEMIA Stop: 07/20/17 00:54 Last Admin: 05/22/17 23:34 Dose: 50 ml Diltiazem HCl (Cardizem) 10 mg IVP Q6HR PRN PRN Reason: HR >130 Stop: 07/22/17 17:09 Last Admin: 05/24/17 04:21 Dose: 10 mg Furosemide (Lasix) 40 mg IVP DAILY [facility] Stop: 07/18/17 08:59 Last Admin: 06/03/17 08:58 Dose: 40 mg Heparin Sodium (Porcine) (Heparin) 5,000 units SUBQ Q8HR [facility] Stop: 08/01/17 20:59 Last Admin: 06/03/17 15:14 Dose: Not Given Hydralazine HCl (Apresoline 20 Mg/Ml) 10 mg IV Q6HR PRN PRN Reason: BP MAINTENANCE (PER PROTOCOL) Stop: 07/30/17 13:09 Last Admin: 06/01/17 08:09 Dose: 10 mg Norepinephrine Bitartrate 8 mg (/ Dextrose) 258 mls @ 0 mls/hr IV TITR PRN; Protocol; Titrate PRN Reason: BP MAINTENANCE (PER PROTOCOL) Stop: 07/19/17 12:29 Last Admin: 05/21/17 01:06 Dose: 10 mcg/min, 19.35 mls/hr Phenylephrine HCl 10 mg/ (Sodium Chloride) 250 mls @ 0 mls/hr IV TITR YESSICA; Per Protocol PRN Reason: Protocol Stop: 07/19/17 12:59 Tigecycline 50 mg/ Sodium (Chloride) 100 mls @ 100 mls/hr IV Q12H [facility] Stop: 07/21/17 18:59 Last Admin: 06/03/17 20:00 Dose: 100 mls/hr Multivitamins/Minerals 10 ml/Dextrose/ Amino Acids/Electrolytes/ Fat Emulsion Intravenous 960 mls @ 40 mls/hr IV .Q24H [facility] Stop: 08/01/17 14:59 Last Admin: 06/03/17 15:52 Dose: 40 mls/hr Insulin Aspart (Novolog Insulin Sliding Scale) 0 units SUBQ Q6HR YESSICA PRN Reason: Protocol Stop: 07/14/17 00:00 Last Admin: 06/03/17 17:31 Dose: Not Given Isosorbide Dinitrate (Isordil) 20 mg GT TID [facility] Stop: 07/28/17 13:33 Last Admin: 06/03/17 20:27 Dose: 20 mg Lactobacillus Rhamnosus (Culturelle) 1 each PO DAILY [facility] Stop: 07/17/17 08:59 Last Admin: 06/03/17 08:58 Dose: 1 each Levetiracetam (Keppra) 250 mg NG BID [facility] Stop: 07/14/17 08:59 Last Admin: 06/03/17 16:03 Dose: 250 mg Metoclopramide HCl (Reglan) 5 mg IVP TID [facility] Stop: 07/20/17 20:59 Last Admin: 06/03/17 20:23 Dose: 5 mg Metoprolol Tartrate (Lopressor) 50 mg GT Q8H YESSICA Stop: 07/18/17 08:59 Last Admin: 06/03/17 18:11 Dose: 50 mg Miscellaneous (Vte Chemical Prophylaxis Screen/ Admission) 1 ea PRN PRN PRN Reason: PROTOCOL Stop: 07/14/17 09:25 Miscellaneous (Clinical Monitoring) 1 ea MC DAILY PRN PRN Reason: RENAL Stop: 07/15/17 12:32 Miscellaneous (Probiotic Screen) 1 ea PRN PRN PRN Reason: PROTOCOL Stop: 07/16/17 09:33 Miscellaneous (Tpn Per Pharmacy) 1 ea PRN PRN PRN Reason: PROTOCOL Stop: 07/24/17 15:59 Pantoprazole Sodium (Protonix) 40 mg GT DAILY [facility] Stop: 07/14/17 08:59 Last Admin: 06/03/17 08:58 Dose: 40 mg General: No acute distress, Other (open eyes but not interractive), no Alert Cardiovascular: Regular rate Lungs: Other (occasional rhonchi) Abdomen: Soft, no Tender Extremities: no Edema (no edema) Neurological: Sensation intact, Other (lethargic) Skin: no Rash Psych/Mental Status: Mood NL - Procedures Procedures: Procedures Procedure Code Date INSERT EMERGENCY AIRWAY 01244 05/13/17 INSERT TUNNELED CV CATH [id number] 05/13/17 INSERTION OF ENDOTRACHEAL AIRWAY INTO TRACHEA, VIA OPENING [id number] 05/13/17 INSERTION OF INFUSION DEV INTO R FEMOR VEIN, PERC APPROACH [id number] 05/13/17 RESPIRATORY VENTILATION, GREATER THAN 96 CONSECUTIVE HOURS [id number] 05/13/17 VENT MGMT INPAT INIT DAY 02784 05/13/17 Assessment/Plan - Problem List Patient Problems: All Active Problems COUGH AND CONGESTION (Acute) Congestive heart failure (CHF) (Acute) I50.9 congestive heart failure (Acute) hypertension uncontrolled with bradycarda (Acute) renal failure (Acute) - Assessment Assessment: Current Active Problems Problem Status Onset COUGH AND CONGESTION Acute Acute respiratory failure vent dependant ( failed weaning trial) Renal failure improving on HD MDRO Pneumonia Afib RVR UTI CAD 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 Hematology consulted Heparin sub Q Cardizem iv prn Metoprolol Tygacil and Colistin per ID rec HD per nephrology rec Continue vent support PPN started for nutritional support Off vasopressor Feeding on hold due to tolerance issue Nutritional Asmnt/Malnutr-PDOC - Dietary Evaluation Malnutrition Findings (Please click <Entered> for more info): Nutritional Asmnt/Malnutrition Start: 05/15/17 13: 56 Text: Status: Complete Freq: Document 05/15/17 13:56 GSUN (Rec: 05/15/17 14:18 GSUN [email or web address]) Nutritional Asmnt/Malnutrition Patient General Information Nutritional Screening High Risk Screening Diagnosis PNA, NICK, icnreasing renal failure, CVA, CHF, DM Pertinent Medical Hx/Surgical Hx CVA, dementia, afib, CAD, HTN, dyslipidemia, epilepsy, GERD, aspiration PNA, DM, CKD, dehydration, C. diff, anemia D Subjective Information 86 year old male from SNF. Pt greeted RD. Pt is overall thin , moderate to severe wasting to chest, clavicles, extremities. Observed Glytrol running at 60ml/hr x20hrs during visit. Unable to obtain CBW due to bedscale not calibrated. Discussed with YVETTE Farooq regarding tube feeding recommendations. Current Diet Order/ Nutrition Support Glytrol at 60ml/hr x 20hrs, providing 1200kcal 54g protein Pertinent Medications Lipitor, Novolog, Levemir, Cephulac, Morphine, Protonix, Nacl 0.9% Pertinent Labs 05/13: potassium 5.3H, BUN 80H, creatinine 2.4H, glucose 103 05/15: potassium WNL, BUN 70H, creatinine 2.4H, glucose 239H, A1c 6.1H, phosphorus 5.4H Nutritional Hx/Data Height 1.68 m Height (Calculated Centimeters) 167.6 Current Weight (lbs) 65.771 kg Weight (Calculated Kilograms) 65.8 Weight (Calculated Grams) 63689.9 [place] Body Weight 142 Weight Status Approriate GI Symptoms Difficult in: Swallowing Cultural/Ethnic/[employer] Belief [facility]: Glucerna 1.2 at 85ml/hr x 20hrs, providing 2040kcal, promote weight gain. Skin Integrity/Comment: Gee 12. Skin intact. Estimated Nutritional Goals Calories/Kcals/Kg CBW 145lb/65.9kg Kcals Calculated 1976-7kcal (30-35kcal/kg) Protein Calculated 46-92g (0.7-1.4g/kg, renal vs moderate to severe wasting) Fluid: ml Per MD (renal) Nutritional Problem 2. Problem Problem Impaired nutrient utilization related to Etiology NICK, hx CKD aeb Signs/Symptoms: "increasing renal failure," potaasum 5.3H on adm, BUN 70H, outdoor studies director 2.4H, phosphorus 5.4H 1. Problem Problem Inadequate intake from enteral nutrition infusion related to Etiology estimated nutritional needs aeb Signs/Symptoms: providing to meet 61% lower end kcal needs Intervention/Recommendation Comments 1. Recommend Novasource Renal at 50ml/hr x 20hrs, providing 2000kcal and 91g protein. Current order Glytrol at 60ml/ hr x 20hrs is only providing 1200kcal, pt recieves 2040kcal at [facility]. Expected Outcomes/Goals Expected Outcomes/Goals 1. Pt to meet at least 100% of estimated nutritional needs on tube feeding with tolerance .
--- NOTE | 2017-06-03 23:04 | Infectious Disease Prog Note ---
Infectious Disease Subjective - Review of Systems Service Date: 06/03/17 Subjective: No new change. No fever. intubated orally, on vent support. Infectious Disease Objective - Results Result Diagrams: 06/03/17 04:48 06/03/17 04:48 Recent Labs: Laboratory Last Values WBC 8.9 Th/cmm (4.8-10.8) 06/03/17 04:48 RBC 3.16 Mil/cmm (3.80-5.80) L 06/03/17 04:48 Hgb 8.7 gm/dL (12.6-17.4) L 06/03/17 04:48 Hct 26.2 % (39.0-49.0) L 06/03/17 04:48 MCV 82.9 fl (80-99) 06/03/17 04:48 MCH 27.4 pg (27.0-31.0) 06/03/17 04:48 MCHC Differential 33.0 pg (28.0-36.0) 06/03/17 04:48 RDW 16.9 % (11.5-20.0) 06/03/17 04:48 Plt Count 131 Th/cmm (150-400) L D 06/03/17 04:48 MPV 9.9 fl 06/03/17 04:48 Neutrophils % 75.5 % (40.0-80.0) 06/03/17 04:48 Band Neutrophils % 2 % (0-10) 05/26/17 04:40 Lymphocytes % 12.3 % (20.0-50.0) L 06/03/17 04:48 Monocytes % 11.3 % (2.0-10.0) H 06/03/17 04:48 Eosinophils % 0.8 % (0.0-5.0) 06/03/17 04:48 Basophils % 0.1 % (0.0-2.0) 06/03/17 04:48 Neutrophils (Manual) 89 % (40-80) H 05/26/17 04:40 Lymphocytes 5 % (20-50) L 05/26/17 04:40 Monocytes 4 % (2-10) 05/26/17 04:40 Eosinophils 0 % (0-5) 05/24/17 04:49 Basophils 0 % (0-3) 05/24/17 04:49 Metamyelocytes 1 % (0-0) H 05/22/17 04:44 Toxic Granulation 1+ 05/23/17 04:48 Platelet Estimate ADEQUATE (NORMAL) 05/26/17 04:40 Platelet Morphology NORMAL (NORMAL) 05/26/17 04:40 Anisocytosis 1+ 05/22/17 04:44 RBC Morph Micro Appear NORMAL (NORMAL) 05/26/17 04:40 Eos Smear Source URINE 05/14/17 18:00 Eos Smear Total Cells FEW EOSINOPHILS SEEN (NONE SEEN) 05/14/17 18:00 PT 11.9 SECONDS (9.5-11.5) H 05/13/17 17:42 INR 1.13 (0.5-1.4) 05/13/17 17:42 PTT (Actin FS) 30.5 SECONDS (26.0-38.0) 05/15/17 12:30 Specimen Source Arterial 06/03/17 09:34 Sample Site Right Radial 06/03/17 09:34 pH 7.38 (7.35-7.45) 06/03/17 09:34 pCO2 48.0 mmHg (35.0-45.0) H 06/03/17 09:34 pO2 61.0 mmHg (80.0-100.0) L 06/03/17 09:34 HCO3 26.8 mEq/L (20.0-26.0) H 06/03/17 09:34 Base Excess 2.6 mEq/L (-3.0-3.0) 06/03/17 09:34 O2 Saturation 90.0 % (92.0-100.0) L 06/03/17 09:34 Feliciano Test Positive 06/03/17 09:34 Vent Rate 12 06/03/17 09:34 Inspired O2 30 06/03/17 09:34 Tidal Volume 500 06/03/17 09:34 PEEP 0 06/03/17 09:34 Pressure (ins/psv/peep) 15 06/03/17 09:34 Critical Value AC 06/03/17 09:34 Sodium 134 mEq/L (136-145) L 06/03/17 04:48 Potassium 3.9 mEq/L (3.5-5.1) 06/03/17 04:48 Chloride 100 mEq/L (98-107) 06/03/17 04:48 Carbon Dioxide 27.3 mEq/L (21.0-31.0) 06/03/17 04:48 Anion Gap 10.6 (7.0-16.0) 06/03/17 04:48 BUN 55 mg/dL (7-25) H 06/03/17 04:48 Creatinine 2.6 mg/dL (0.7-1.3) H 06/03/17 04:48 Est GFR ( Amer) TNP 06/03/17 04:48 Est GFR (Non-Af Amer) TNP 06/03/17 04:48 BUN/Creatinine Ratio 21.2 06/03/17 04:48 Glucose 195 mg/dL (70-105) H 06/03/17 04:48 POC Glucose 170 MG/DL (70 - 105) H 06/03/17 17:25 Hemoglobin A1c % 6.1 % (4.0-6.0) H 05/15/17 06:30 Plasma/Ser Osmolality 301 mOsmol/kg (280-301) 05/14/17 18:20 Whole Bld Lactic Acid 1.58 mmol/L (0.60-1.99) 05/13/17 17:42 Uric Acid 7.7 mg/dL (4.4-7.6) H 05/15/17 06:30 Calcium 9.1 mg/dL (8.6-10.3) 06/03/17 04:48 Phosphorus 3.3 mg/dL (2.5-5.0) 06/03/17 04:48 Magnesium 2.3 mg/dL (1.9-2.7) 06/03/17 04:48 Total Bilirubin 2.7 mg/dL (0.3-1.0) H 06/03/17 04:48 Direct Bilirubin 0.09 mg/dL (0.0-0.2) 05/19/17 04:50 AST 75 U/L (13-39) H 06/03/17 04:48 ALT 10 U/L (7-52) 06/03/17 04:48 Alkaline Phosphatase 657 U/L (34-104) H 06/03/17 04:48 Ammonia 65 umol/L (16-53) H 05/19/17 04:50 Creatine Kinase 35 U/L (30-223) 05/16/17 23:06 Troponin I 0.02 ng/mL (0.01-0.05) 05/16/17 23:06 B-Natriuretic Peptide 739.0 pg/mL (5.0-100.0) H 05/23/17 04:48 Total Protein 5.7 gm/dL (6.0-8.3) L 06/03/17 04:48 Albumin 3.0 gm/dL (4.2-5.5) L 06/03/17 04:48 Globulin 2.7 gm/dL 06/03/17 04:48 Albumin/Globulin Ratio 1.1 (1.0-1.8) 06/03/17 04:48 Prealbumin 6 mg/dL (9-32) L 05/30/17 04:47 Triglycerides 53 mg/dL (<150) 05/30/17 04:47 Cholesterol 42 mg/dL (<200) 05/30/17 04:47 TSH 2.74 uIU/ml (0.34-5.60) 05/15/17 06:30 Urine Source CATH 05/13/17 19:50 Urine Color YELLOW 05/13/17 19:50 Urine Clarity CLOUDY (CLEAR) 05/13/17 19:50 Urine pH 6.0 05/13/17 19:50 Ur Specific [place] 1.015 (1.005-1.030) 05/13/17 19:50 Urine Protein 100 mg/dL (NEGATIVE) H 05/13/17 19:50 Urine Glucose (UA) NEGATIVE mg/dL (NEGATIVE) 05/13/17 19:50 Urine Ketones NEGATIVE mg/dL (NEGATIVE) 05/13/17 19:50 Urine Blood LARGE (NEGATIVE) H 05/13/17 19:50 Urine Nitrate NEGATIVE (NEGATIVE) 05/13/17 19:50 Urine Bilirubin NEGATIVE (NEGATIVE) 05/13/17 19:50 Urine Urobilinogen 0.2 E.U./dL (0.2 - 1.0) 05/13/17 19:50 Ur Leukocyte Esterase LARGE (NEGATIVE) H 05/13/17 19:50 Urine RBC 50-100 /hpf (0-5) H 05/13/17 19:50 Urine WBC >100 /hpf (0-5) H 05/13/17 19:50 Ur Epithelial Cells NONE SEEN /lpf (FEW) 05/13/17 19:50 Urine Bacteria NONE SEEN /hpf (NONE SEEN) 05/13/17 19:50 Ur Random Sodium 30 mmol/L 05/14/17 18:00 Urine Creatinine 36.4 mg/dl (Not Estab.) 05/14/17 18:00 Urine Microalbumin 363.5 ug/mL (Not Estab.) 05/14/17 18:00 Microalb/Creat Ratio 998.6 mg/g creat (0.0-30.0) H 05/14/17 18:00 Stool Occult Blood NEGATIVE (NEGATIVE) 05/25/17 17:49 Random Vancomycin 19.1 ug/mL (5.0-40.0) 05/19/17 04:50 Hepatitis A IgM Ab Negative (Negative) 05/21/17 04:46 Hep Bs Antigen Negative (Negative) 05/21/17 04:46 Hep B Core IgM Ab Negative (Negative) 05/21/17 04:46 Hepatitis C Antibody 0.1 s/co ratio (0.0-0.9) 05/21/17 04:46 Blood Type B POSITIVE 05/21/17 10:19 Antibody Screen NEGATIVE 05/21/17 10:19 Crossmatch See Detail 05/21/17 10:19 - Physical Exam Vitals and I&O: Vital Signs Temp 99.0 F 06/03/17 20:00 Pulse 74 06/03/17 22:54 Resp 22 06/03/17 22:00 BP 153/70 06/03/17 22:00 Pulse Ox 99 06/03/17 22:54 Intake & Output 06/03/17 06/03/17 06/04/17 06:59 18:59 06:59 Intake Total 680 1060 630 Output Total 400 450 Balance 280 1060 180 Weight (lbs) 65.771 kg 65.589 kg 65.363 kg Intake: Intake, IV Amount 100 1060 Multivitamin Inj 10 ml In 960 Dextrose 70% 250 ml In Amino Acids 10% 500 ml In Intralipids 20% 200 ml @ 40 mls/hr IV .Q24H YESSICA Rx#:[id number] Tigecycline 50 mg In 100 100 Sodium Chloride 0.9% 100 ml @ 100 mls/hr IV Q12H YESSICA Rx#:[id number] Oral 0 0 TPN/PPN 480 480 Other 100 150 Output: Urine 400 450 Other: # Bowel Movements 1 1 Stool Characteristics Liquid Active Medications: Current Medications Acetaminophen (Tylenol) 650 mg PO Q4HR PRN PRN Reason: Pain Or Fever above 101 Stop: 07/14/17 15:15 Last Admin: 05/23/17 15:07 Dose: 650 mg Albuterol/Ipratropium (Duoneb Neb) 3 ml HHN Q4HRT [facility] Stop: 07/19/17 14:59 Last Admin: 06/03/17 22:54 Dose: 3 ml Atorvastatin Calcium (Lipitor) 10 mg GT HS YESSICA PRN Reason: Protocol Stop: 07/14/17 20:59 Last Admin: 06/03/17 20:26 Dose: 10 mg Budesonide (Pulmicort) 1 mg HHN BIDRT [facility] Stop: 07/19/17 18:59 Last Admin: 06/03/17 18:39 Dose: 1 mg Carbidopa/Levodopa (Sinemet 25mg-100 Mg) 1 tab PO TID [facility] Stop: 07/14/17 08:59 Last Admin: 06/03/17 20:26 Dose: 1 tab Chlorhexidine Gluconate (Peridex) 15 ml MM 0800,1999 [facility] Stop: 07/23/17 19:59 Last Admin: 06/03/17 20:30 Dose: 15 ml Clonidine HCl (Catapres) 0.1 mg PO Q6HR PRN PRN Reason: BP MAINTENANCE (PER PROTOCOL) Stop: 07/28/17 13:31 Last Admin: 05/29/17 21:04 Dose: 0.1 mg Colistimethate Sodium (Colistin) 75 mg HHN BIDRT [facility] Stop: 07/30/17 18:59 Last Admin: 06/03/17 18:40 Dose: 75 mg Dextrose (D50w) 50 ml IVP PRN PRN; Protocol PRN Reason: HYPOGLYCEMIA Stop: 07/20/17 00:54 Last Admin: 05/22/17 23:34 Dose: 50 ml Diltiazem HCl (Cardizem) 10 mg IVP Q6HR PRN PRN Reason: HR >130 Stop: 07/22/17 17:09 Last Admin: 05/24/17 04:21 Dose: 10 mg Furosemide (Lasix) 40 mg IVP DAILY [facility] Stop: 07/18/17 08:59 Last Admin: 06/03/17 08:58 Dose: 40 mg Heparin Sodium (Porcine) (Heparin) 5,000 units SUBQ Q8HR [facility] Stop: 08/01/17 20:59 Last Admin: 06/03/17 15:14 Dose: Not Given Hydralazine HCl (Apresoline 20 Mg/Ml) 10 mg IV Q6HR PRN PRN Reason: BP MAINTENANCE (PER PROTOCOL) Stop: 07/30/17 13:09 Last Admin: 06/01/17 08:09 Dose: 10 mg Norepinephrine Bitartrate 8 mg (/ Dextrose) 258 mls @ 0 mls/hr IV TITR PRN; Protocol; Titrate PRN Reason: BP MAINTENANCE (PER PROTOCOL) Stop: 07/19/17 12:29 Last Admin: 05/21/17 01:06 Dose: 10 mcg/min, 19.35 mls/hr Phenylephrine HCl 10 mg/ (Sodium Chloride) 250 mls @ 0 mls/hr IV TITR YESSICA; Per Protocol PRN Reason: Protocol Stop: 07/19/17 12:59 Tigecycline 50 mg/ Sodium (Chloride) 100 mls @ 100 mls/hr IV Q12H [facility] Stop: 07/21/17 18:59 Last Admin: 06/03/17 20:00 Dose: 100 mls/hr Multivitamins/Minerals 10 ml/Dextrose/ Amino Acids/Electrolytes/ Fat Emulsion Intravenous 960 mls @ 40 mls/hr IV .Q24H [facility] Stop: 08/01/17 14:59 Last Admin: 06/03/17 15:52 Dose: 40 mls/hr Insulin Aspart (Novolog Insulin Sliding Scale) 0 units SUBQ Q6HR YESSICA PRN Reason: Protocol Stop: 07/14/17 00:00 Last Admin: 06/03/17 17:31 Dose: Not Given Isosorbide Dinitrate (Isordil) 20 mg GT TID [facility] Stop: 07/28/17 13:33 Last Admin: 06/03/17 20:27 Dose: 20 mg Lactobacillus Rhamnosus (Culturelle) 1 each PO DAILY [facility] Stop: 07/17/17 08:59 Last Admin: 06/03/17 08:58 Dose: 1 each Levetiracetam (Keppra) 250 mg NG BID [facility] Stop: 07/14/17 08:59 Last Admin: 06/03/17 16:03 Dose: 250 mg Metoclopramide HCl (Reglan) 5 mg IVP TID [facility] Stop: 07/20/17 20:59 Last Admin: 06/03/17 20:23 Dose: 5 mg Metoprolol Tartrate (Lopressor) 50 mg GT Q8H YESSICA Stop: 07/18/17 08:59 Last Admin: 06/03/17 18:11 Dose: 50 mg Miscellaneous (Vte Chemical Prophylaxis Screen/ Admission) 1 ea PRN PRN PRN Reason: PROTOCOL Stop: 07/14/17 09:25 Miscellaneous (Clinical Monitoring) 1 ea MC DAILY PRN PRN Reason: RENAL Stop: 07/15/17 12:32 Miscellaneous (Probiotic Screen) 1 ea PRN PRN PRN Reason: PROTOCOL Stop: 07/16/17 09:33 Miscellaneous (Tpn Per Pharmacy) 1 ea PRN PRN PRN Reason: PROTOCOL Stop: 07/24/17 15:59 Pantoprazole Sodium (Protonix) 40 mg GT DAILY [facility] Stop: 07/14/17 08:59 Last Admin: 06/03/17 08:58 Dose: 40 mg General: no acute distress, cachectic HEENT: atraumatic, normocephalic, PERRLA, EOMI, moist mucous membrane Neck: supple, no thyromegaly, no lymphadenopathy Cardiovascular: S1S2, regular Lungs: clear to percussion, crackles Abdomen: soft, no tender, no distended, no mass Extremities: no cyanosis, no clubbing Neurological: other (sedated.) Skin: intact - Procedures Procedures: Procedures Procedure Code Date INSERT EMERGENCY AIRWAY 65373 05/13/17 INSERT TUNNELED CV CATH 35299 05/13/17 INSERTION OF ENDOTRACHEAL AIRWAY INTO TRACHEA, VIA OPENING [id number] 05/13/17 INSERTION OF INFUSION DEV INTO R FEMOR VEIN, PERC APPROACH [id number] 05/13/17 RESPIRATORY VENTILATION, GREATER THAN 96 CONSECUTIVE HOURS [id number] 05/13/17 VENT MGMT INPAT INIT DAY 60273 05/13/17 Infectious Disease Assmt/Plan - Problem List Patient Problems: All Active Problems COUGH AND CONGESTION (Acute) Congestive heart failure (CHF) (Acute) I50.9 congestive heart failure (Acute) hypertension uncontrolled with bradycarda (Acute) renal failure (Acute) - Assessment Assessment: 1. Pneuimonia.? Aspiration. 2. NICK. 3. CVA. 4. CHF. 5. CKD4. NICK mild rise in creatinine. 6. Afib with rapid ventricular response. Plan: Continue colistin nebulizer. DC tygacil. Nutritional Asmnt/Malnutr-PDOC - Dietary Evaluation Malnutrition Findings (Please click <Entered> for more info): Nutritional Asmnt/Malnutrition Start: 05/15/17 13: 56 Text: Status: Complete Freq: Document 05/15/17 13:56 GSUN (Rec: 05/15/17 14:18 GSUN [id number]) Nutritional Asmnt/Malnutrition Patient General Information Nutritional Screening High Risk Screening Diagnosis PNA, NICK, icnreasing renal failure, CVA, CHF, DM Pertinent Medical Hx/Surgical Hx CVA, dementia, afib, CAD, HTN, dyslipidemia, epilepsy, GERD, aspiration PNA, DM, CKD, dehydration, C. diff, anemia D Subjective Information 86 year old male from SNF. Pt greeted RD. Pt is overall thin , moderate to severe wasting to chest, clavicles, extremities. Observed Glytrol running at 60ml/hr x20hrs during visit. Unable to obtain CBW due to bedscale not calibrated. Discussed with YVETTE Farooq regarding tube feeding recommendations. Current Diet Order/ Nutrition Support Glytrol at 60ml/hr x 20hrs, providing 1200kcal 54g protein Pertinent Medications Lipitor, Novolog, Levemir, Cephulac, Morphine, Protonix, Nacl 0.9% Pertinent Labs 05/13: potassium 5.3H, BUN 80H, creatinine 2.4H, glucose 103 05/15: potassium WNL, BUN 70H, creatinine 2.4H, glucose 239H, A1c 6.1H, phosphorus 5.4H Nutritional Hx/Data Height 1.68 m Height (Calculated Centimeters) 167.6 Current Weight (lbs) 65.771 kg Weight (Calculated Kilograms) 65.8 Weight (Calculated Grams) 56097.9 [place] Body Weight 142 Weight Status Approriate GI Symptoms Difficult in: Swallowing Cultural/Ethnic/Buddhist Belief [facility]: Glucerna 1.2 at 85ml/hr x 20hrs, providing 2040kcal, promote weight gain. Skin Integrity/Comment: Gee 12. Skin intact. Estimated Nutritional Goals Calories/Kcals/Kg CBW 145lb/65.9kg Kcals Calculated 1976-2306kcal (30-35kcal/kg) Protein Calculated 46-92g (0.7-1.4g/kg, renal vs moderate to severe wasting) Fluid: ml Per MD (renal) Nutritional Problem 2. 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 Problem Problem Inadequate intake from enteral nutrition infusion related to Etiology estimated nutritional needs aeb Signs/Symptoms: providing to meet 61% lower end kcal needs Intervention/Recommendation Comments 1. Recommend Novasource Renal at 50ml/hr x 20hrs, providing 2000kcal and 91g protein. Current order Glytrol at 60ml/ hr x 20hrs is only providing 1200kcal, pt recieves 2040kcal at [facility]. Expected Outcomes/Goals Expected Outcomes/Goals 1. Pt to meet at least 100% of estimated nutritional needs on tube feeding with tolerance .
[2017-06-04] MEDS: INSULIN ASPART SLIDING SCALE 100 UNITS/ML UNIT SUBQ SCH ×6 (00:05→18:06)
[2017-06-04] MEDS: Albuterol/Ipratropium Neb 3 ML AERS HHN SCH ×6 (02:01→23:26)
--- NOTE | 2017-06-04 03:50 | Progress Notes ---
DATE: 06/03/2017 PROBLEM LIST: 1. Acute respiratory failure. 2. Congestive heart failure. 3. MDRO. 4. Status post ____ cardiac arrest with possibly anoxic encephalopathy. SYMPTOMS: Nil. The patient is awake, moving side to side, but no other communication or movement of the extremities could be done. Currently on a ventilator, as well as currently undergoing dialysis. PHYSICAL EXAMINATION: VITAL SIGNS: The patient's recorded vitals: Temperature is 98, heart rate is in the 70s, blood pressure 112/70, saturation is 100% on 30% of SIMV of 12. NECK: Veins not visualized. CHEST: Shows diminished air entry with occasional rhonchi. HEART: Regular. ABDOMEN: Soft, nontender. LABORATORY DATA: The patient's white count is 8.9, hemoglobin 8.7. PO2 of 61 on 30%. Creatinine is 2.6. Chest x-ray shows still loculated effusion ____ bilaterally, ET tube appears to be in good position. ASSESSMENT: The patient has still very marginal ____ respiratory-[place] with congestive heart failure/effusion/MDRO with status post question anoxic encephalopathy with renal failure. PLANS AND SUGGESTIONS: We will try to drop back down on SIMV mode and see how he does. Continue rest of other treatment and go from there. JOB# [id number]
[2017-06-04 05:24] LABS: % BASOPHILS 0.2 % (0.0-2.0); % EOSINOPHILS 0.6 % (0.0-5.0); % MONOCYTES 13.5 % (2.0-10.0); % NEUTROPHILS 72.7 % (40.0-80.0); HEMOGLOBIN 8.5 gm/dL (12.6-17.4); MEAN CELL VOLUME 81.7 fl (80-99); MEAN CORPUSCULAR HEMOGLOBIN 27.9 pg (27.0-31.0); MEAN CORPUSCULAR HGB CONC 34.1 pg (28.0-36.0); NEUTROPHILE ABSOLUTE 5.6 Th/cmm (1.8-8.0); PLATELET COUNT 121 Th/cmm (150-400); RED BLOOD COUNT 3.06 Mil/cmm (3.80-5.80); WHITE BLOOD COUNT 7.6 Th/cmm (4.8-10.8)
[2017-06-04 05:35] LABS: ANION GAP 8.4 (7.0-16.0); BUN - UREA NITROGEN 45 mg/dL (7-25); BUN/CREATININE RATIO 19.6; CALCIUM SERUM 8.8 mg/dL (8.6-10.3); CARBON DIOXIDE 29.5 mEq/L (21.0-31.0); CHLORIDE 104 mEq/L (98-107); CHOLESTEROL 63 mg/dL (<200); CREATININE - SERUM 2.3 mg/dL (0.7-1.3); GLUCOSE 159 mg/dL (70-105); MAGNESIUM 1.9 mg/dL (1.9-2.7); PHOSPHOROUS 2.3 mg/dL (2.5-5.0); POTASSIUM SERUM 3.9 mEq/L (3.5-5.1); SODIUM SERUM 138 mEq/L (136-145); TRIGLYCERIDES 60 mg/dL (<150)
[2017-06-04 05:47] LABS: INR 1.41 (0.5-1.4)
[2017-06-04] MEDS: Budesonide 0.5 Mg/2 mL Ud HHN SCH ×2 (07:50→19:04)
[2017-06-04] MEDS: Chlorhexidine Gluconate 0.12% 15mL Mouthwash MM SCH ×2 (08:45→21:12)
[2017-06-04] MEDS ORDERED: SODIUM PHOSPHATE IV ONE (09:00)
[2017-06-04] MEDS ORDERED: SODIUM CHLORIDE IV ONE (09:00)
[2017-06-04 09:18] LABS: ABG SOURCE Arterial; ALLEN TEST YES; BE(B) 5.6 mEq/L (-3.0-3.0); HCO3 29.2 mEq/L (20.0-26.0); pH 7.42 (7.35-7.45)
[2017-06-04 09:19] LABS: FIO2 30; MECH RATE 4; MECH VT 500; PS 18
[2017-06-04] MEDS: Lactobacillus Rhamnosus 10 Billion CFU Capsule PO SCH (09:23)
[2017-06-04] MEDS: Pantoprazole 40 mg/Packet GT SCH (09:24)
[2017-06-04] MEDS: Levetiracetam 500 mg/5mL 5mL UDC NG SCH ×2 (09:29→17:27)
[2017-06-04] MEDS: Metoclopramide 5 mg/mL 2mL Vial IVP SCH ×3 (09:34→21:14)
--- NOTE | 2017-06-04 10:06 | General Progress Note ---
Subjective - Review of Systems Service Date: 06/04/17 Objective - Results Result Diagrams: 06/04/17 04:47 06/04/17 04:47 Recent Labs: Laboratory Last Values WBC 7.6 Th/cmm (4.8-10.8) 06/04/17 04:47 RBC 3.06 Mil/cmm (3.80-5.80) L 06/04/17 04:47 Hgb 8.5 gm/dL (12.6-17.4) L 06/04/17 04:47 Hct 25.0 % (39.0-49.0) L 06/04/17 04:47 MCV 81.7 fl (80-99) 06/04/17 04:47 MCH 27.9 pg (27.0-31.0) 06/04/17 04:47 MCHC Differential 34.1 pg (28.0-36.0) 06/04/17 04:47 RDW 17.0 % (11.5-20.0) 06/04/17 04:47 Plt Count 121 Th/cmm (150-400) L 06/04/17 04:47 MPV 11.0 fl 06/04/17 04:47 Neutrophils % 72.7 % (40.0-80.0) 06/04/17 04:47 Band Neutrophils % 2 % (0-10) 05/26/17 04:40 Lymphocytes % 13.0 % (20.0-50.0) L 06/04/17 04:47 Monocytes % 13.5 % (2.0-10.0) H 06/04/17 04:47 Eosinophils % 0.6 % (0.0-5.0) 06/04/17 04:47 Basophils % 0.2 % (0.0-2.0) 06/04/17 04:47 Neutrophils (Manual) 89 % (40-80) H 05/26/17 04:40 Lymphocytes 5 % (20-50) L 05/26/17 04:40 Monocytes 4 % (2-10) 05/26/17 04:40 Eosinophils 0 % (0-5) 05/24/17 04:49 Basophils 0 % (0-3) 05/24/17 04:49 Metamyelocytes 1 % (0-0) H 05/22/17 04:44 Toxic Granulation 1+ 05/23/17 04:48 Platelet Estimate ADEQUATE (NORMAL) 05/26/17 04:40 Platelet Morphology NORMAL (NORMAL) 05/26/17 04:40 Anisocytosis 1+ 05/22/17 04:44 RBC Morph Micro Appear NORMAL (NORMAL) 05/26/17 04:40 Eos Smear Source URINE 05/14/17 18:00 Eos Smear Total Cells FEW EOSINOPHILS SEEN (NONE SEEN) 05/14/17 18:00 Plt Count 121 Th/cmm (150-750) L 06/04/17 04:47 PT 15.0 SECONDS (9.5-11.5) H 06/04/17 04:47 INR 1.41 (0.5-1.4) H 06/04/17 04:47 PTT (Actin FS) 69.2 SECONDS (26.0-38.0) H 06/04/17 04:47 Fibrinogen 106.0 mg/dL (200.0-400.0) L 06/04/17 04:47 Specimen Source Arterial 06/04/17 09:14 Sample Site Right Radial 06/04/17 09:14 pH 7.42 (7.35-7.45) 06/04/17 09:14 pCO2 48.0 mmHg (35.0-45.0) H 06/04/17 09:14 pO2 62.0 mmHg (80.0-100.0) L 06/04/17 09:14 HCO3 29.2 mEq/L (20.0-26.0) H 06/04/17 09:14 Base Excess 5.6 mEq/L (-3.0-3.0) H 06/04/17 09:14 O2 Saturation 92.0 % (92.0-100.0) 06/04/17 09:14 Feliciano Test YES 06/04/17 09:14 Vent Rate 4 06/04/17 09:14 Inspired O2 30 06/04/17 09:14 Tidal Volume 500 06/04/17 09:14 PEEP 0 06/04/17 09:14 Pressure (ins/psv/peep) 18 06/04/17 09:14 Critical Value E.MCNEAL 06/04/17 09:14 Sodium 138 mEq/L (136-145) 06/04/17 04:47 Potassium 3.9 mEq/L (3.5-5.1) 06/04/17 04:47 Chloride 104 mEq/L (98-107) 06/04/17 04:47 Carbon Dioxide 29.5 mEq/L (21.0-31.0) 06/04/17 04:47 Anion Gap 8.4 (7.0-16.0) 06/04/17 04:47 BUN 45 mg/dL (7-25) H 06/04/17 04:47 Creatinine 2.3 mg/dL (0.7-1.3) H 06/04/17 04:47 Est GFR ( Amer) TNP 06/04/17 04:47 Est GFR (Non-Af Amer) TNP 06/04/17 04:47 BUN/Creatinine Ratio 19.6 06/04/17 04:47 Glucose 159 mg/dL (70-105) H 06/04/17 04:47 POC Glucose 157 MG/DL (70 - 105) H 06/04/17 06:35 Hemoglobin A1c % 6.1 % (4.0-6.0) H 05/15/17 06:30 Plasma/Ser Osmolality 301 mOsmol/kg (280-301) 05/14/17 18:20 Whole Bld Lactic Acid 1.58 mmol/L (0.60-1.99) 05/13/17 17:42 Uric Acid 7.7 mg/dL (4.4-7.6) H 05/15/17 06:30 Calcium 8.8 mg/dL (8.6-10.3) 06/04/17 04:47 Phosphorus 2.3 mg/dL (2.5-5.0) L 06/04/17 04:47 Magnesium 1.9 mg/dL (1.9-2.7) 06/04/17 04:47 Total Bilirubin 2.7 mg/dL (0.3-1.0) H 06/03/17 04:48 Direct Bilirubin 0.09 mg/dL (0.0-0.2) 05/19/17 04:50 AST 75 U/L (13-39) H 06/03/17 04:48 ALT 10 U/L (7-52) 06/03/17 04:48 Alkaline Phosphatase 657 U/L (34-104) H 06/03/17 04:48 Ammonia 65 umol/L (16-53) H 05/19/17 04:50 Creatine Kinase 35 U/L (30-223) 05/16/17 23:06 Troponin I 0.02 ng/mL (0.01-0.05) 05/16/17 23:06 B-Natriuretic Peptide 739.0 pg/mL (5.0-100.0) H 05/23/17 04:48 Total Protein 5.7 gm/dL (6.0-8.3) L 06/03/17 04:48 Albumin 3.0 gm/dL (4.2-5.5) L 06/03/17 04:48 Globulin 2.7 gm/dL 06/03/17 04:48 Albumin/Globulin Ratio 1.1 (1.0-1.8) 06/03/17 04:48 Prealbumin 6 mg/dL (9-32) L 05/30/17 04:47 Triglycerides 60 mg/dL (<150) 06/04/17 04:47 Cholesterol 63 mg/dL (<200) 06/04/17 04:47 TSH 2.74 uIU/ml (0.34-5.60) 05/15/17 06:30 Urine Source CATH 05/13/17 19:50 Urine Color YELLOW 05/13/17 19:50 Urine Clarity CLOUDY (CLEAR) 05/13/17 19:50 Urine pH 6.0 05/13/17 19:50 Ur Specific Mak[place] 1.015 (1.005-1.030) 05/13/17 19:50 Urine Protein 100 mg/dL (NEGATIVE) H 05/13/17 19:50 Urine Glucose (UA) NEGATIVE mg/dL (NEGATIVE) 05/13/17 19:50 Urine Ketones NEGATIVE mg/dL (NEGATIVE) 05/13/17 19:50 Urine Blood LARGE (NEGATIVE) H 05/13/17 19:50 Urine Nitrate NEGATIVE (NEGATIVE) 05/13/17 19:50 Urine Bilirubin NEGATIVE (NEGATIVE) 05/13/17 19:50 Urine Urobilinogen 0.2 E.U./dL (0.2 - 1.0) 05/13/17 19:50 Ur Leukocyte Esterase LARGE (NEGATIVE) H 05/13/17 19:50 Urine RBC 50-100 /hpf (0-5) H 05/13/17 19:50 Urine WBC >100 /hpf (0-5) H 05/13/17 19:50 Ur Epithelial Cells NONE SEEN /lpf (FEW) 05/13/17 19:50 Urine Bacteria NONE SEEN /hpf (NONE SEEN) 05/13/17 19:50 Ur Random Sodium 30 mmol/L 05/14/17 18:00 Urine Creatinine 36.4 mg/dl (Not Estab.) 05/14/17 18:00 Urine Microalbumin 363.5 ug/mL (Not Estab.) 05/14/17 18:00 Microalb/Creat Ratio 998.6 mg/g creat (0.0-30.0) H 05/14/17 18:00 Stool Occult Blood NEGATIVE (NEGATIVE) 05/25/17 17:49 Random Vancomycin 19.1 ug/mL (5.0-40.0) 05/19/17 04:50 Hepatitis A IgM Ab Negative (Negative) 05/21/17 04:46 Hep Bs Antigen Negative (Negative) 05/21/17 04:46 Hep B Core IgM Ab Negative (Negative) 05/21/17 04:46 Hepatitis C Antibody 0.1 s/co ratio (0.0-0.9) 05/21/17 04:46 Blood Type B POSITIVE 05/21/17 10:19 Antibody Screen NEGATIVE 05/21/17 10:19 Crossmatch See Detail 05/21/17 10:19 - Physical Exam Vitals and I&O: Vital Signs Temp 98.2 F 06/04/17 04:00 Pulse 88 06/04/17 09:24 Resp 22 06/04/17 07:00 BP 155/79 06/04/17 09:24 Pulse Ox 100 06/04/17 08:11 Intake & Output 06/03/17 06/04/17 06/04/17 18:59 06:59 18:59 Intake Total 1060 630 Output Total 450 Balance 1060 180 Weight (lbs) 65.589 kg 65.363 kg Intake: Intake, IV Amount 1060 Multivitamin Inj 10 ml In 960 Dextrose 70% 250 ml In Amino Acids 10% 500 ml In Intralipids 20% 200 ml @ 40 mls/hr IV .Q24H YESSICA Rx#:[id number] Tigecycline 50 mg In 100 Sodium Chloride 0.9% 100 ml @ 100 mls/hr IV Q12H YESSICA Rx#:[id number] Oral 0 TPN/PPN 480 Other 150 Output: Urine 450 Other: # Bowel Movements 1 Stool Characteristics Liquid Liquid Mucoid Brown Active Medications: Current Medications Acetaminophen (Tylenol) 650 mg PO Q4HR PRN PRN Reason: Pain Or Fever above 101 Stop: 07/14/17 15:15 Last Admin: 05/23/17 15:07 Dose: 650 mg Albuterol/Ipratropium (Duoneb Neb) 3 ml HHN Q4HRT [facility] Stop: 07/19/17 14:59 Last Admin: 06/04/17 07:50 Dose: 3 ml Atorvastatin Calcium (Lipitor) 10 mg GT HS YESSICA PRN Reason: Protocol Stop: 07/14/17 20:59 Last Admin: 06/03/17 20:26 Dose: 10 mg Budesonide (Pulmicort) 1 mg HHN BIDRT [facility] Stop: 07/19/17 18:59 Last Admin: 06/04/17 07:50 Dose: 1 mg Carbidopa/Levodopa (Sinemet 25mg-100 Mg) 1 tab PO TID [facility] Stop: 07/14/17 08:59 Last Admin: 06/04/17 09:24 Dose: 1 tab Chlorhexidine Gluconate (Peridex) 15 ml MM 0800,1999 [facility] Stop: 07/23/17 19:59 Last Admin: 06/04/17 08:45 Dose: 15 ml Clonidine HCl (Catapres) 0.1 mg PO Q6HR PRN PRN Reason: BP MAINTENANCE (PER PROTOCOL) Stop: 07/28/17 13:31 Last Admin: 05/29/17 21:04 Dose: 0.1 mg Colistimethate Sodium (Colistin) 75 mg HHN BIDRT [facility] Stop: 07/30/17 18:59 Last Admin: 06/04/17 07:51 Dose: 75 mg Dextrose (D50w) 50 ml IVP PRN PRN; Protocol PRN Reason: HYPOGLYCEMIA Stop: 07/20/17 00:54 Last Admin: 05/22/17 23:34 Dose: 50 ml Diltiazem HCl (Cardizem) 10 mg IVP Q6HR PRN PRN Reason: HR >130 Stop: 07/22/17 17:09 Last Admin: 05/24/17 04:21 Dose: 10 mg Furosemide (Lasix) 40 mg IVP DAILY [facility] Stop: 07/18/17 08:59 Last Admin: 06/04/17 09:22 Dose: 40 mg Heparin Sodium (Porcine) (Heparin) 5,000 units SUBQ Q8HR YESSICA Stop: 08/01/17 20:59 Last Admin: 06/04/17 06:52 Dose: Not Given Hydralazine HCl (Apresoline 20 Mg/Ml) 10 mg IV Q6HR PRN PRN Reason: BP MAINTENANCE (PER PROTOCOL) Stop: 07/30/17 13:09 Last Admin: 06/01/17 08:09 Dose: 10 mg Norepinephrine Bitartrate 8 mg (/ Dextrose) 258 mls @ 0 mls/hr IV TITR PRN; Protocol; Titrate PRN Reason: BP MAINTENANCE (PER PROTOCOL) Stop: 07/19/17 12:29 Last Admin: 05/21/17 01:06 Dose: 10 mcg/min, 19.35 mls/hr Phenylephrine HCl 10 mg/ (Sodium Chloride) 250 mls @ 0 mls/hr IV TITR YESSICA; Per Protocol PRN Reason: Protocol Stop: 07/19/17 12:59 Multivitamins/Minerals 10 ml/Dextrose/ Amino Acids/Electrolytes/ Fat Emulsion Intravenous 960 mls @ 40 mls/hr IV .Q24H [facility] Stop: 08/01/17 14:59 Last Admin: 06/03/17 15:52 Dose: 40 mls/hr Sodium Phosphate 12 mmole/ (Sodium Chloride) 254 mls @ 42 mls/hr IV ONCE ONE Stop: 06/04/17 15:02 Last Admin: 06/04/17 09:17 Dose: 42 mls/hr Insulin Aspart (Novolog Insulin Sliding Scale) 0 units SUBQ Q6HR YESSICA PRN Reason: Protocol Stop: 07/14/17 00:00 Last Admin: 06/04/17 06:48 Dose: Not Given Isosorbide Dinitrate (Isordil) 20 mg GT TID [facility] Stop: 07/28/17 13:33 Last Admin: 06/04/17 09:23 Dose: 20 mg Lactobacillus Rhamnosus (Culturelle) 1 each PO DAILY [facility] Stop: 07/17/17 08:59 Last Admin: 06/04/17 09:23 Dose: 1 each Levetiracetam (Keppra) 250 mg NG BID [facility] Stop: 07/14/17 08:59 Last Admin: 06/04/17 09:29 Dose: 250 mg Metoclopramide HCl (Reglan) 5 mg IVP TID [facility] Stop: 07/20/17 20:59 Last Admin: 06/04/17 09:34 Dose: 5 mg Metoprolol Tartrate (Lopressor) 50 mg GT Q8H YESSICA Stop: 07/18/17 08:59 Last Admin: 06/04/17 09:24 Dose: 50 mg Miscellaneous (Vte Chemical Prophylaxis Screen/ Admission) 1 ea MC PRN PRN PRN Reason: PROTOCOL Stop: 07/14/17 09:25 Miscellaneous (Clinical Monitoring) 1 ea MC DAILY PRN PRN Reason: RENAL Stop: 07/15/17 12:32 Miscellaneous (Probiotic Screen) 1 ea MC PRN PRN PRN Reason: PROTOCOL Stop: 07/16/17 09:33 Miscellaneous (Tpn Per Pharmacy) 1 ea MC PRN PRN PRN Reason: PROTOCOL Stop: 07/24/17 15:59 Pantoprazole Sodium (Protonix) 40 mg GT DAILY YESSICA Stop: 07/14/17 08:59 Last Admin: 06/04/17 09:24 Dose: 40 mg General: No acute distress, Other (open eyes but not interractive), no Alert HEENT: Atraumatic, EOMI (normal), Mucous membr. moist/pink Neck: Supple, +2 carotid pulse wo bruit Cardiovascular: Regular rate Lungs: Other (occasional rhonchi) Abdomen: Soft, no Tender Extremities: no Edema (no edema) Neurological: Sensation intact, Other (lethargic) Skin: no Rash Psych/Mental Status: Mood NL - Procedures Procedures: Procedures Procedure Code Date INSERT EMERGENCY AIRWAY 55230 05/13/17 INSERT TUNNELED CV CATH 60199 05/13/17 INSERTION OF ENDOTRACHEAL AIRWAY INTO TRACHEA, VIA OPENING [id number] 05/13/17 INSERTION OF INFUSION DEV INTO R FEMOR VEIN, PERC APPROACH [id number] 05/13/17 RESPIRATORY VENTILATION, GREATER THAN 96 CONSECUTIVE HOURS [id number] 05/13/17 VENT MGMT INPAT INIT DAY 39225 05/13/17 Assessment/Plan - Problem List Patient Problems: All Active Problems COUGH AND CONGESTION (Acute) Congestive heart failure (CHF) (Acute) I50.9 congestive heart failure (Acute) hypertension uncontrolled with bradycarda (Acute) renal failure (Acute) - Assessment Assessment: * DIC * RESPIRATORY FAILURE *ESRD *UNLIKELY HIT TRANSFUSE FFP MONITOR DIC PANEL Nutritional Asmnt/Malnutr-PDOC - Dietary Evaluation Malnutrition Findings (Please click <Entered> for more info): Nutritional Asmnt/Malnutrition Start: 05/15/17 13: 56 Text: Status: Complete Freq: Document 05/15/17 13:56 GSUN (Rec: 05/15/17 14:18 GSUN [id number]) Nutritional Asmnt/Malnutrition Patient General Information Nutritional Screening High Risk Screening Diagnosis PNA, NICK, icnreasing renal failure, CVA, CHF, DM Pertinent Medical Hx/Surgical Hx CVA, dementia, afib, CAD, HTN, dyslipidemia, epilepsy, GERD, aspiration PNA, DM, CKD, dehydration, C. diff, anemia D Subjective Information 86 year old male from SNF. Pt greeted RD. Pt is overall thin , moderate to severe wasting to chest, clavicles, extremities. Observed Glytrol running at 60ml/hr x20hrs during visit. Unable to obtain CBW due to bedscale not calibrated. Discussed with YVETTE Farooq regarding tube feeding recommendations. Current Diet Order/ Nutrition Support Glytrol at 60ml/hr x 20hrs, providing 1200kcal 54g protein Pertinent Medications Lipitor, Novolog, Levemir, Cephulac, Morphine, Protonix, Nacl 0.9% Pertinent Labs 05/13: potassium 5.3H, BUN 80H, creatinine 2.4H, glucose 103 05/15: potassium WNL, BUN 70H, creatinine 2.4H, glucose 239H, A1c 6.1H, phosphorus 5.4H Nutritional Hx/Data Height 1.68 m Height (Calculated Centimeters) 167.6 Current Weight (lbs) 65.771 kg Weight (Calculated Kilograms) 65.8 Weight (Calculated Grams) 26711.9 [place] Body Weight 142 Weight Status Approriate GI Symptoms Difficult in: Swallowing Cultural/Ethnic/[employer] Belief [facility]: Glucerna 1.2 at 85ml/hr x 20hrs, providing 2040kcal, promote weight gain. Skin Integrity/Comment: Gee 12. Skin intact. Estimated Nutritional Goals Calories/Kcals/Kg CBW 145lb/65.9kg Kcals Calculated 1976-7kcal (30-35kcal/kg) Protein Calculated 46-92g (0.7-1.4g/kg, renal vs moderate to severe wasting) Fluid: ml Per MD (renal) Nutritional Problem 2. Problem Problem Impaired nutrient utilization related to Etiology NICK, hx CKD aeb Signs/Symptoms: "increasing renal failure," potaasum 5.3H on adm, BUN 70H, delivery agent 2.4H, phosphorus 5.4H 1. Problem Problem Inadequate intake from enteral nutrition infusion related to Etiology estimated nutritional needs aeb Signs/Symptoms: providing to meet 61% lower end kcal needs Intervention/Recommendation Comments 1. Recommend Novasource Renal at 50ml/hr x 20hrs, providing 2000kcal and 91g protein. Current order Glytrol at 60ml/ hr x 20hrs is only providing 1200kcal, pt recieves 2040kcal at [facility]. Expected Outcomes/Goals Expected Outcomes/Goals 1. Pt to meet at least 100% of estimated nutritional needs on tube feeding with tolerance .
--- NOTE | 2017-06-04 10:17 | Diagnostic Imaging Report ---
CHEST X-RAY: AP view INDICATION: CHF, pneumonia COMPARISON: 06/03/2017 . FINDINGS: ET tube is seen with tip 2.5 cm above the [place]. Right dialysis catheter is stable. Findings of CHF are again noted bilateral effusions left greater than right diffuse infiltrates. Cardiomegaly is noted. IMPRESSION: No significant change in pulmonary status
[2017-06-04] MEDS: Menthol/Zinc Oxide Oint 113gm Tube TP SCH ×3 (13:20→21:18)
--- NOTE | 2017-06-04 15:44 | Infectious Disease Prog Note ---
Infectious Disease Subjective - Review of Systems Service Date: 06/04/17 Subjective: No new change. No fever. intubated orally, on vent support. Infectious Disease Objective - Results Result Diagrams: 06/04/17 04:47 06/04/17 04:47 Recent Labs: Laboratory Last Values WBC 7.6 Th/cmm (4.8-10.8) 06/04/17 04:47 RBC 3.06 Mil/cmm (3.80-5.80) L 06/04/17 04:47 Hgb 8.5 gm/dL (12.6-17.4) L 06/04/17 04:47 Hct 25.0 % (39.0-49.0) L 06/04/17 04:47 MCV 81.7 fl (80-99) 06/04/17 04:47 MCH 27.9 pg (27.0-31.0) 06/04/17 04:47 MCHC Differential 34.1 pg (28.0-36.0) 06/04/17 04:47 RDW 17.0 % (11.5-20.0) 06/04/17 04:47 Plt Count 121 Th/cmm (150-400) L 06/04/17 04:47 MPV 11.0 fl 06/04/17 04:47 Neutrophils % 72.7 % (40.0-80.0) 06/04/17 04:47 Band Neutrophils % 2 % (0-10) 05/26/17 04:40 Lymphocytes % 13.0 % (20.0-50.0) L 06/04/17 04:47 Monocytes % 13.5 % (2.0-10.0) H 06/04/17 04:47 Eosinophils % 0.6 % (0.0-5.0) 06/04/17 04:47 Basophils % 0.2 % (0.0-2.0) 06/04/17 04:47 Neutrophils (Manual) 89 % (40-80) H 05/26/17 04:40 Lymphocytes 5 % (20-50) L 05/26/17 04:40 Monocytes 4 % (2-10) 05/26/17 04:40 Eosinophils 0 % (0-5) 05/24/17 04:49 Basophils 0 % (0-3) 05/24/17 04:49 Metamyelocytes 1 % (0-0) H 05/22/17 04:44 Toxic Granulation 1+ 05/23/17 04:48 Platelet Estimate ADEQUATE (NORMAL) 05/26/17 04:40 Platelet Morphology NORMAL (NORMAL) 05/26/17 04:40 Anisocytosis 1+ 05/22/17 04:44 RBC Morph Micro Appear NORMAL (NORMAL) 05/26/17 04:40 Eos Smear Source URINE 05/14/17 18:00 Eos Smear Total Cells FEW EOSINOPHILS SEEN (NONE SEEN) 05/14/17 18:00 Plt Count 121 Th/cmm (150-750) L 06/04/17 04:47 PT 15.0 SECONDS (9.5-11.5) H 06/04/17 04:47 INR 1.41 (0.5-1.4) H 06/04/17 04:47 PTT (Actin FS) 69.2 SECONDS (26.0-38.0) H 06/04/17 04:47 Fibrinogen 106.0 mg/dL (200.0-400.0) L 06/04/17 04:47 D-Dimer 581 ng/mL (100-400) H 06/04/17 04:47 Specimen Source Arterial 06/04/17 09:14 Sample Site Right Radial 06/04/17 09:14 pH 7.42 (7.35-7.45) 06/04/17 09:14 pCO2 48.0 mmHg (35.0-45.0) H 06/04/17 09:14 pO2 62.0 mmHg (80.0-100.0) L 06/04/17 09:14 HCO3 29.2 mEq/L (20.0-26.0) H 06/04/17 09:14 Base Excess 5.6 mEq/L (-3.0-3.0) H 06/04/17 09:14 O2 Saturation 92.0 % (92.0-100.0) 06/04/17 09:14 [place]o Test YES 06/04/17 09:14 Vent Rate 4 06/04/17 09:14 Inspired O2 30 06/04/17 09:14 Tidal Volume 500 06/04/17 09:14 PEEP 0 06/04/17 09:14 Pressure (ins/psv/peep) 18 06/04/17 09:14 Critical Value E.MCNEAL 06/04/17 09:14 Sodium 138 mEq/L (136-145) 06/04/17 04:47 Potassium 3.9 mEq/L (3.5-5.1) 06/04/17 04:47 Chloride 104 mEq/L (98-107) 06/04/17 04:47 Carbon Dioxide 29.5 mEq/L (21.0-31.0) 06/04/17 04:47 Anion Gap 8.4 (7.0-16.0) 06/04/17 04:47 BUN 45 mg/dL (7-25) H 06/04/17 04:47 Creatinine 2.3 mg/dL (0.7-1.3) H 06/04/17 04:47 Est GFR ( Amer) TNP 06/04/17 04:47 Est GFR (Non-Af Amer) TNP 06/04/17 04:47 BUN/Creatinine Ratio 19.6 06/04/17 04:47 Glucose 159 mg/dL (70-105) H 06/04/17 04:47 POC Glucose 163 MG/DL (70 - 105) H 06/04/17 12:35 Hemoglobin A1c % 6.1 % (4.0-6.0) H 05/15/17 06:30 Plasma/Ser Osmolality 301 mOsmol/kg (280-301) 05/14/17 18:20 Whole Bld Lactic Acid 1.58 mmol/L (0.60-1.99) 05/13/17 17:42 Uric Acid 7.7 mg/dL (4.4-7.6) H 05/15/17 06:30 Calcium 8.8 mg/dL (8.6-10.3) 06/04/17 04:47 Phosphorus 2.3 mg/dL (2.5-5.0) L 06/04/17 04:47 Magnesium 1.9 mg/dL (1.9-2.7) 06/04/17 04:47 Ferritin 351 ng/mL (30-400) 06/03/17 04:48 Total Bilirubin 2.7 mg/dL (0.3-1.0) H 06/03/17 04:48 Direct Bilirubin 0.09 mg/dL (0.0-0.2) 05/19/17 04:50 AST 75 U/L (13-39) H 06/03/17 04:48 ALT 10 U/L (7-52) 06/03/17 04:48 Alkaline Phosphatase 657 U/L (34-104) H 06/03/17 04:48 Ammonia 65 umol/L (16-53) H 05/19/17 04:50 Creatine Kinase 35 U/L (30-223) 05/16/17 23:06 Troponin I 0.02 ng/mL (0.01-0.05) 05/16/17 23:06 B-Natriuretic Peptide 739.0 pg/mL (5.0-100.0) H 05/23/17 04:48 Total Protein 5.7 gm/dL (6.0-8.3) L 06/03/17 04:48 Albumin 3.0 gm/dL (4.2-5.5) L 06/03/17 04:48 Globulin 2.7 gm/dL 06/03/17 04:48 Albumin/Globulin Ratio 1.1 (1.0-1.8) 06/03/17 04:48 Prealbumin 6 mg/dL (9-32) L 05/30/17 04:47 Triglycerides 60 mg/dL (<150) 06/04/17 04:47 Cholesterol 63 mg/dL (<200) 06/04/17 04:47 TSH 2.74 uIU/ml (0.34-5.60) 05/15/17 06:30 Urine Source CATH 05/13/17 19:50 Urine Color YELLOW 05/13/17 19:50 Urine Clarity CLOUDY (CLEAR) 05/13/17 19:50 Urine pH 6.0 05/13/17 19:50 Ur Specific [place] 1.015 (1.005-1.030) 05/13/17 19:50 Urine Protein 100 mg/dL (NEGATIVE) H 05/13/17 19:50 Urine Glucose (UA) NEGATIVE mg/dL (NEGATIVE) 05/13/17 19:50 Urine Ketones NEGATIVE mg/dL (NEGATIVE) 05/13/17 19:50 Urine Blood LARGE (NEGATIVE) H 05/13/17 19:50 Urine Nitrate NEGATIVE (NEGATIVE) 05/13/17 19:50 Urine Bilirubin NEGATIVE (NEGATIVE) 05/13/17 19:50 Urine Urobilinogen 0.2 E.U./dL (0.2 - 1.0) 05/13/17 19:50 Ur Leukocyte Esterase LARGE (NEGATIVE) H 05/13/17 19:50 Urine RBC 50-100 /hpf (0-5) H 05/13/17 19:50 Urine WBC >100 /hpf (0-5) H 05/13/17 19:50 Ur Epithelial Cells NONE SEEN /lpf (FEW) 05/13/17 19:50 Urine Bacteria NONE SEEN /hpf (NONE SEEN) 05/13/17 19:50 Ur Random Sodium 30 mmol/L 05/14/17 18:00 Urine Creatinine 36.4 mg/dl (Not Estab.) 05/14/17 18:00 Urine Microalbumin 363.5 ug/mL (Not Estab.) 05/14/17 18:00 Microalb/Creat Ratio 998.6 mg/g creat (0.0-30.0) H 05/14/17 18:00 Stool Occult Blood NEGATIVE (NEGATIVE) 05/25/17 17:49 Random Vancomycin 19.1 ug/mL (5.0-40.0) 05/19/17 04:50 Hepatitis A IgM Ab Negative (Negative) 05/21/17 04:46 Hep Bs Antigen Negative (Negative) 05/21/17 04:46 Hep B Core IgM Ab Negative (Negative) 05/21/17 04:46 Hepatitis C Antibody 0.1 s/co ratio (0.0-0.9) 05/21/17 04:46 Blood Type B POSITIVE 06/04/17 04:47 Antibody Screen NEGATIVE 06/04/17 04:47 Crossmatch See Detail 05/21/17 10:19 - Physical Exam Vitals and I&O: Vital Signs Temp 98.5 F 06/04/17 14:00 Pulse 87 06/04/17 14:04 Resp 23 06/04/17 14:00 BP 135/71 06/04/17 14:04 Pulse Ox 98 06/04/17 14:00 Intake & Output 06/03/17 06/04/17 06/04/17 18:59 06:59 18:59 Intake Total 1060 630 Output Total 450 Balance 1060 180 Weight (lbs) 65.589 kg 65.363 kg Intake: Intake, IV Amount 1060 Multivitamin Inj 10 ml In 960 Dextrose 70% 250 ml In Amino Acids 10% 500 ml In Intralipids 20% 200 ml @ 40 mls/hr IV .Q24H [facility] Rx#:[id number] Tigecycline 50 mg In 100 Sodium Chloride 0.9% 100 ml @ 100 mls/hr IV Q12H [facility] Rx#:[id number] Oral 0 TPN/PPN 480 Other 150 Output: Urine 450 Other: # Bowel Movements 1 Stool Characteristics Liquid Liquid Soft Mucoid Liquid Brown Active Medications: Current Medications Acetaminophen (Tylenol) 650 mg PO Q4HR PRN PRN Reason: Pain Or Fever above 101 Stop: 07/14/17 15:15 Last Admin: 05/23/17 15:07 Dose: 650 mg Albuterol/Ipratropium (Duoneb Neb) 3 ml HHN Q4HRT [facility] Stop: 07/19/17 14:59 Last Admin: 06/04/17 12:38 Dose: 3 ml Atorvastatin Calcium (Lipitor) 10 mg GT HS YESSICA PRN Reason: Protocol Stop: 07/14/17 20:59 Last Admin: 06/03/17 20:26 Dose: 10 mg Budesonide (Pulmicort) 1 mg HHN BIDRT [facility] Stop: 07/19/17 18:59 Last Admin: 06/04/17 07:50 Dose: 1 mg Calamine/Phenol (Calmoseptine) 1 appl TP QID PRN PRN Reason: Skin Irritation Stop: 08/03/17 12:28 Calamine/Phenol (Calmoseptine) 1 appl TP QID [facility] Stop: 08/03/17 12:59 Carbidopa/Levodopa (Sinemet 25mg-100 Mg) 1 tab PO TID [facility] Stop: 07/14/17 08:59 Last Admin: 06/04/17 14:04 Dose: 1 tab Chlorhexidine Gluconate (Peridex) 15 ml MM 0800,2000 [facility] Stop: 07/23/17 19:59 Last Admin: 06/04/17 08:45 Dose: 15 ml Clonidine HCl (Catapres) 0.1 mg PO Q6HR PRN PRN Reason: BP MAINTENANCE (PER PROTOCOL) Stop: 07/28/17 13:31 Last Admin: 05/29/17 21:04 Dose: 0.1 mg Colistimethate Sodium (Colistin) 75 mg [facility] BIDRT [facility] Stop: 07/30/17 18:59 Last Admin: 06/04/17 07:51 Dose: 75 mg Dextrose (D50w) 50 ml IVP PRN PRN; Protocol PRN Reason: HYPOGLYCEMIA Stop: 07/20/17 00:54 Last Admin: 05/22/17 23:34 Dose: 50 ml Diltiazem HCl (Cardizem) 10 mg IVP Q6HR PRN PRN Reason: HR >130 Stop: 07/22/17 17:09 Last Admin: 05/24/17 04:21 Dose: 10 mg Furosemide (Lasix) 40 mg IVP DAILY [facility] Stop: 07/18/17 08:59 Last Admin: 06/04/17 09:22 Dose: 40 mg Heparin Sodium (Porcine) (Heparin) 5,000 units SUBQ Q8HR [facility] Stop: 08/01/17 20:59 Last Admin: 06/04/17 13:10 Dose: Not Given Hydralazine HCl (Apresoline 20 Mg/Ml) 10 mg IV Q6HR PRN PRN Reason: BP MAINTENANCE (PER PROTOCOL) Stop: 07/30/17 13:09 Last Admin: 06/01/17 08:09 Dose: 10 mg Norepinephrine Bitartrate 8 mg (/ Dextrose) 258 mls @ 0 mls/hr IV TITR PRN; Protocol; Titrate PRN Reason: BP MAINTENANCE (PER PROTOCOL) Stop: 07/19/17 12:29 Last Admin: 05/21/17 01:06 Dose: 10 mcg/min, 19.35 mls/hr Phenylephrine HCl 10 mg/ (Sodium Chloride) 250 mls @ 0 mls/hr IV TITR YESSICA; Per Protocol PRN Reason: Protocol Stop: 07/19/17 12:59 Multivitamins/Minerals 10 ml/Dextrose/ Amino Acids/Electrolytes/ Fat Emulsion Intravenous 960 mls @ 40 mls/hr IV .Q24H [facility] Stop: 08/01/17 14:59 Last Admin: 06/03/17 15:52 Dose: 40 mls/hr Insulin Aspart (Novolog Insulin Sliding Scale) 0 units SUBQ Q6HR YESSICA PRN Reason: Protocol Stop: 07/14/17 00:00 Last Admin: 06/04/17 12:36 Dose: Not Given Isosorbide Dinitrate (Isordil) 20 mg GT TID [facility] Stop: 07/28/17 13:33 Last Admin: 06/04/17 14:04 Dose: 20 mg Lactobacillus Rhamnosus (Culturelle) 1 each PO DAILY YESSICA Stop: 07/17/17 08:59 Last Admin: 06/04/17 09:23 Dose: 1 each Levetiracetam (Keppra) 250 mg NG BID YESSICA Stop: 07/14/17 08:59 Last Admin: 06/04/17 09:29 Dose: 250 mg Metoclopramide HCl (Reglan) 5 mg IVP TID YESSICA Stop: 07/20/17 20:59 Last Admin: 06/04/17 14:05 Dose: 5 mg Metoprolol Tartrate (Lopressor) 50 mg GT Q8H YESSICA Stop: 07/18/17 08:59 Last Admin: 06/04/17 09:24 Dose: 50 mg Miscellaneous (Vte Chemical Prophylaxis Screen/ Admission) 1 ea PRN PRN PRN Reason: PROTOCOL Stop: 07/14/17 09:25 Miscellaneous (Clinical Monitoring) 1 [facility] DAILY PRN PRN Reason: RENAL Stop: 07/15/17 12:32 Miscellaneous (Probiotic Screen) 1 [facility] PRN PRN PRN Reason: PROTOCOL Stop: 07/16/17 09:33 Miscellaneous (Tpn Per Pharmacy) 1 [facility] PRN PRN PRN Reason: PROTOCOL Stop: 07/24/17 15:59 Pantoprazole Sodium (Protonix) 40 mg GT DAILY [facility] Stop: 07/14/17 08:59 Last Admin: 06/04/17 09:24 Dose: 40 mg General: no acute distress, well developed, well nourished HEENT: atraumatic, normocephalic, PERRLA Neck: supple, no thyromegaly Cardiovascular: S1S2, regular Lungs: clear to percussion, crackles Abdomen: soft, bowel sounds, other (G tube.), no tender, no distended, no mass, no rebound Extremities: no cyanosis, no clubbing, no edema - Procedures Procedures: Procedures Procedure Code Date INSERT EMERGENCY AIRWAY 63864 05/13/17 INSERT TUNNELED CV CATH [id number] 05/13/17 INSERTION OF ENDOTRACHEAL AIRWAY INTO TRACHEA, VIA OPENING [id number] 05/13/17 INSERTION OF INFUSION DEV INTO R FEMOR VEIN, PERC APPROACH [id number] 05/13/17 RESPIRATORY VENTILATION, GREATER THAN 96 CONSECUTIVE HOURS [id number] 05/13/17 VENT MGMT INSALOT INIT DAY 91493 05/13/17 Infectious Disease Assmt/Plan - Problem List Patient Problems: All Active Problems COUGH AND CONGESTION (Acute) Congestive heart failure (CHF) (Acute) I50.9 congestive heart failure (Acute) hypertension uncontrolled with bradycarda (Acute) renal failure (Acute) - Assessment Assessment: 1. Pneuimonia.? Aspiration. 2. NICK. 3. CVA. 4. CHF. 5. CKD4. NICK mild rise in creatinine. 6. Afib with rapid ventricular response. Plan: Continue colistin nebulizer. Start tube feeding. Nutritional Asmnt/Malnutr-PDOC - Dietary Evaluation Malnutrition Findings (Please click <Entered> for more info): Nutritional Asmnt/Malnutrition Start: 05/15/17 13: 56 Text: Status: Complete Freq: Document 05/15/17 13:56 GSUN (Rec: 05/15/17 14:18 GSTHALIA [email or web address]) Nutritional Asmnt/Malnutrition Patient General Information Nutritional Screening High Risk Screening Diagnosis PNA, NICK, icnreasing renal failure, CVA, CHF, DM Pertinent Medical Hx/Surgical Hx CVA, dementia, afib, CAD, HTN, dyslipidemia, epilepsy, GERD, aspiration PNA, DM, CKD, dehydration, C. diff, anemia D Subjective Information 86 year old male from SNF. Pt greeted RD. Pt is overall thin , moderate to severe wasting to chest, clavicles, extremities. Observed Glytrol running at 60ml/hr x20hrs during visit. Unable to obtain CBW due to bedscale not calibrated. Discussed with YVETTE Farooq regarding tube feeding recommendations. Current Diet Order/ Nutrition Support Glytrol at 60ml/hr x 20hrs, providing 1200kcal 54g protein Pertinent Medications Lipitor, Novolog, Levemir, Cephulac, Morphine, Protonix, Nacl 0.9% Pertinent Labs 05/13: potassium 5.3H, BUN 80H, creatinine 2.4H, glucose 103 05/15: potassium WNL, BUN 70H, creatinine 2.4H, glucose 239H, A1c 6.1H, phosphorus 5.4H Nutritional Hx/Data Height 1.68 m Height (Calculated Centimeters) 167.6 Current Weight (lbs) 65.771 kg Weight (Calculated Kilograms) 65.8 Weight (Calculated Grams) 58606.9 [place] Body Weight 142 Weight Status Approriate GI Symptoms Difficult in: Swallowing Cultural/Ethnic/Faith Belief [facility]: Glucerna 1.2 at 85ml/hr x 20hrs, providing 2040kcal, promote weight gain. Skin Integrity/Comment: Gee 12. Skin intact. Estimated Nutritional Goals Calories/Kcals/Kg CBW 145lb/65.9kg Kcals Calculated 1976-7kcal (30-35kcal/kg) Protein Calculated 46-92g (0.7-1.4g/kg, renal vs moderate to severe wasting) Fluid: ml Per MD (renal) Nutritional Problem 2. 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 Problem Problem Inadequate intake from enteral nutrition infusion related to Etiology estimated nutritional needs aeb Signs/Symptoms: providing to meet 61% lower end kcal needs Intervention/Recommendation Comments 1. Recommend Novasource Renal at 50ml/hr x 20hrs, providing 2000kcal and 91g protein. Current order Glytrol at 60ml/ hr x 20hrs is only providing 1200kcal, pt recieves 2040kcal at [facility]. Expected Outcomes/Goals Expected Outcomes/Goals 1. Pt to meet at least 100% of estimated nutritional needs on tube feeding with tolerance .
[2017-06-04] MEDS: TPN 10%-70% CUSTOM IV SCH (17:31)
--- NOTE | 2017-06-04 17:59 | General Progress Note ---
Subjective - Review of Systems Service Date: 06/04/17 Subjective: Patient seen and examined afebrile awake no new concern Objective - Results Result Diagrams: 06/04/17 04:47 06/04/17 04:47 Recent Labs: Laboratory Last Values WBC 7.6 Th/cmm (4.8-10.8) 06/04/17 04:47 RBC 3.06 Mil/cmm (3.80-5.80) L 06/04/17 04:47 Hgb 8.5 gm/dL (12.6-17.4) L 06/04/17 04:47 Hct 25.0 % (39.0-49.0) L 06/04/17 04:47 MCV 81.7 fl (80-99) 06/04/17 04:47 MCH 27.9 pg (27.0-31.0) 06/04/17 04:47 MCHC Differential 34.1 pg (28.0-36.0) 06/04/17 04:47 RDW 17.0 % (11.5-20.0) 06/04/17 04:47 Plt Count 121 Th/cmm (150-400) L 06/04/17 04:47 MPV 11.0 fl 06/04/17 04:47 Neutrophils % 72.7 % (40.0-80.0) 06/04/17 04:47 Band Neutrophils % 2 % (0-10) 05/26/17 04:40 Lymphocytes % 13.0 % (20.0-50.0) L 06/04/17 04:47 Monocytes % 13.5 % (2.0-10.0) H 06/04/17 04:47 Eosinophils % 0.6 % (0.0-5.0) 06/04/17 04:47 Basophils % 0.2 % (0.0-2.0) 06/04/17 04:47 Neutrophils (Manual) 89 % (40-80) H 05/26/17 04:40 Lymphocytes 5 % (20-50) L 05/26/17 04:40 Monocytes 4 % (2-10) 05/26/17 04:40 Eosinophils 0 % (0-5) 05/24/17 04:49 Basophils 0 % (0-3) 05/24/17 04:49 Metamyelocytes 1 % (0-0) H 05/22/17 04:44 Toxic Granulation 1+ 05/23/17 04:48 Platelet Estimate ADEQUATE (NORMAL) 05/26/17 04:40 Platelet Morphology NORMAL (NORMAL) 05/26/17 04:40 Anisocytosis 1+ 05/22/17 04:44 RBC Morph Micro Appear NORMAL (NORMAL) 05/26/17 04:40 Eos Smear Source URINE 05/14/17 18:00 Eos Smear Total Cells FEW EOSINOPHILS SEEN (NONE SEEN) 05/14/17 18:00 Plt Count 121 Th/cmm (150-750) L 06/04/17 04:47 PT 15.0 SECONDS (9.5-11.5) H 06/04/17 04:47 INR 1.41 (0.5-1.4) H 06/04/17 04:47 PTT (Actin FS) 69.2 SECONDS (26.0-38.0) H 06/04/17 04:47 Fibrinogen 106.0 mg/dL (200.0-400.0) L 06/04/17 04:47 D-Dimer 581 ng/mL (100-400) H 06/04/17 04:47 Specimen Source Arterial 06/04/17 09:14 Sample Site Right Radial 06/04/17 09:14 pH 7.42 (7.35-7.45) 06/04/17 09:14 pCO2 48.0 mmHg (35.0-45.0) H 06/04/17 09:14 pO2 62.0 mmHg (80.0-100.0) L 06/04/17 09:14 HCO3 29.2 mEq/L (20.0-26.0) H 06/04/17 09:14 Base Excess 5.6 mEq/L (-3.0-3.0) H 06/04/17 09:14 O2 Saturation 92.0 % (92.0-100.0) 06/04/17 09:14 Feliciano Test YES 06/04/17 09:14 Vent Rate 4 06/04/17 09:14 Inspired O2 30 06/04/17 09:14 Tidal Volume 500 06/04/17 09:14 PEEP 0 06/04/17 09:14 Pressure (ins/psv/peep) 18 06/04/17 09:14 Critical Value E.MCNEAL 06/04/17 09:14 Sodium 138 mEq/L (136-145) 06/04/17 04:47 Potassium 3.9 mEq/L (3.5-5.1) 06/04/17 04:47 Chloride 104 mEq/L (98-107) 06/04/17 04:47 Carbon Dioxide 29.5 mEq/L (21.0-31.0) 06/04/17 04:47 Anion Gap 8.4 (7.0-16.0) 06/04/17 04:47 BUN 45 mg/dL (7-25) H 06/04/17 04:47 Creatinine 2.3 mg/dL (0.7-1.3) H 06/04/17 04:47 Est GFR ( Amer) TNP 06/04/17 04:47 Est GFR (Non-Af Amer) TNP 06/04/17 04:47 BUN/Creatinine Ratio 19.6 06/04/17 04:47 Glucose 159 mg/dL (70-105) H 06/04/17 04:47 POC Glucose 163 MG/DL (70 - 105) H 06/04/17 12:35 Hemoglobin A1c % 6.1 % (4.0-6.0) H 05/15/17 06:30 Plasma/Ser Osmolality 301 mOsmol/kg (280-301) 05/14/17 18:20 Whole Bld Lactic Acid 1.58 mmol/L (0.60-1.99) 05/13/17 17:42 Uric Acid 7.7 mg/dL (4.4-7.6) H 05/15/17 06:30 Calcium 8.8 mg/dL (8.6-10.3) 06/04/17 04:47 Phosphorus 2.3 mg/dL (2.5-5.0) L 06/04/17 04:47 Magnesium 1.9 mg/dL (1.9-2.7) 06/04/17 04:47 Ferritin 351 ng/mL (30-400) 06/03/17 04:48 Total Bilirubin 2.7 mg/dL (0.3-1.0) H 06/03/17 04:48 Direct Bilirubin 0.09 mg/dL (0.0-0.2) 05/19/17 04:50 AST 75 U/L (13-39) H 06/03/17 04:48 ALT 10 U/L (7-52) 06/03/17 04:48 Alkaline Phosphatase 657 U/L (34-104) H 06/03/17 04:48 Ammonia 65 umol/L (16-53) H 05/19/17 04:50 Creatine Kinase 35 U/L (30-223) 05/16/17 23:06 Troponin I 0.02 ng/mL (0.01-0.05) 05/16/17 23:06 B-Natriuretic Peptide 739.0 pg/mL (5.0-100.0) H 05/23/17 04:48 Total Protein 5.7 gm/dL (6.0-8.3) L 06/03/17 04:48 Albumin 3.0 gm/dL (4.2-5.5) L 06/03/17 04:48 Globulin 2.7 gm/dL 06/03/17 04:48 Albumin/Globulin Ratio 1.1 (1.0-1.8) 06/03/17 04:48 Prealbumin 6 mg/dL (9-32) L 05/30/17 04:47 Triglycerides 60 mg/dL (<150) 06/04/17 04:47 Cholesterol 63 mg/dL (<200) 06/04/17 04:47 TSH 2.74 uIU/ml (0.34-5.60) 05/15/17 06:30 Urine Source CATH 05/13/17 19:50 Urine Color YELLOW 05/13/17 19:50 Urine Clarity CLOUDY (CLEAR) 05/13/17 19:50 Urine pH 6.0 05/13/17 19:50 Ur Specific [place] 1.015 (1.005-1.030) 05/13/17 19:50 Urine Protein 100 mg/dL (NEGATIVE) H 05/13/17 19:50 Urine Glucose (UA) NEGATIVE mg/dL (NEGATIVE) 05/13/17 19:50 Urine Ketones NEGATIVE mg/dL (NEGATIVE) 05/13/17 19:50 Urine Blood LARGE (NEGATIVE) H 05/13/17 19:50 Urine Nitrate NEGATIVE (NEGATIVE) 05/13/17 19:50 Urine Bilirubin NEGATIVE (NEGATIVE) 05/13/17 19:50 Urine Urobilinogen 0.2 E.U./dL (0.2 - 1.0) 05/13/17 19:50 Ur Leukocyte Esterase LARGE (NEGATIVE) H 05/13/17 19:50 Urine RBC 50-100 /hpf (0-5) H 05/13/17 19:50 Urine WBC >100 /hpf (0-5) H 05/13/17 19:50 Ur Epithelial Cells NONE SEEN /lpf (FEW) 05/13/17 19:50 Urine Bacteria NONE SEEN /hpf (NONE SEEN) 05/13/17 19:50 Ur Random Sodium 30 mmol/L 05/14/17 18:00 Urine Creatinine 36.4 mg/dl (Not Estab.) 05/14/17 18:00 Urine Microalbumin 363.5 ug/mL (Not Estab.) 05/14/17 18:00 Microalb/Creat Ratio 998.6 mg/g creat (0.0-30.0) H 05/14/17 18:00 Stool Occult Blood NEGATIVE (NEGATIVE) 05/25/17 17:49 Random Vancomycin 19.1 ug/mL (5.0-40.0) 05/19/17 04:50 Hepatitis A IgM Ab Negative (Negative) 05/21/17 04:46 Hep Bs Antigen Negative (Negative) 05/21/17 04:46 Hep B Core IgM Ab Negative (Negative) 05/21/17 04:46 Hepatitis C Antibody 0.1 s/co ratio (0.0-0.9) 05/21/17 04:46 Blood Type B POSITIVE 06/04/17 04:47 Antibody Screen NEGATIVE 06/04/17 04:47 Crossmatch See Detail 05/21/17 10:19 - Physical Exam Vitals and I&O: Vital Signs Temp 98.4 F 06/04/17 16:00 Pulse 81 06/04/17 17:50 Resp 22 06/04/17 16:00 BP 139/73 06/04/17 17:30 Pulse Ox 98 06/04/17 17:50 Intake & Output 06/03/17 06/04/17 06/04/17 18:59 06:59 18:59 Intake Total 1060 630 945.333 Output Total 450 Balance 1060 180 945.333 Weight (lbs) 65.589 kg 65.363 kg Intake: Intake, IV Amount 1060 945.333 Multivitamin Inj 10 ml In 960 945.333 Dextrose 70% 250 ml In Amino Acids 10% 500 ml In Intralipids 20% 200 ml @ 40 mls/hr IV .Q24H [facility] Rx#:[id number] Tigecycline 50 mg In 100 Sodium Chloride 0.9% 100 ml @ 100 mls/hr IV Q12H [facility] Rx#:[id number] Oral 0 TPN/PPN 480 Other 150 Output: Urine 450 Other: # Bowel Movements 1 Stool Characteristics Liquid Liquid Soft Mucoid Liquid Brown Active Medications: Current Medications Acetaminophen (Tylenol) 650 mg PO Q4HR PRN PRN Reason: Pain Or Fever above 101 Stop: 07/14/17 15:15 Last Admin: 05/23/17 15:07 Dose: 650 mg Albuterol/Ipratropium (Duoneb Neb) 3 ml HHN Q4HRT [facility] Stop: 07/19/17 14:59 Last Admin: 06/04/17 17:50 Dose: Not Given Atorvastatin Calcium (Lipitor) 10 mg GT HS YESSICA PRN Reason: Protocol Stop: 07/14/17 20:59 Last Admin: 06/03/17 20:26 Dose: 10 mg Budesonide (Pulmicort) 1 mg HHN BIDRT [facility] Stop: 07/19/17 18:59 Last Admin: 06/04/17 07:50 Dose: 1 mg Calamine/Phenol (Calmoseptine) 1 appl TP QID PRN PRN Reason: Skin Irritation Stop: 08/03/17 12:28 Calamine/Phenol (Calmoseptine) 1 appl TP QID [facility] Stop: 08/03/17 12:59 Last Admin: 06/04/17 17:27 Dose: 1 appl Carbidopa/Levodopa (Sinemet 25mg-100 Mg) 1 tab PO TID [facility] Stop: 07/14/17 08:59 Last Admin: 06/04/17 14:04 Dose: 1 tab Chlorhexidine Gluconate (Peridex) 15 ml MM 0800,2000 [facility] Stop: 07/23/17 19:59 Last Admin: 06/04/17 08:45 Dose: 15 ml Clonidine HCl (Catapres) 0.1 mg PO Q6HR PRN PRN Reason: BP MAINTENANCE (PER PROTOCOL) Stop: 07/28/17 13:31 Last Admin: 05/29/17 21:04 Dose: 0.1 mg Colistimethate Sodium (Colistin) 75 mg HHN BIDRT YESSICA Stop: 07/30/17 18:59 Last Admin: 06/04/17 07:51 Dose: 75 mg Dextrose (D50w) 50 ml IVP PRN PRN; Protocol PRN Reason: HYPOGLYCEMIA Stop: 07/20/17 00:54 Last Admin: 05/22/17 23:34 Dose: 50 ml Diltiazem HCl (Cardizem) 10 mg IVP Q6HR PRN PRN Reason: HR >130 Stop: 07/22/17 17:09 Last Admin: 05/24/17 04:21 Dose: 10 mg Furosemide (Lasix) 40 mg IVP DAILY [facility] Stop: 07/18/17 08:59 Last Admin: 06/04/17 09:22 Dose: 40 mg Hydralazine HCl (Apresoline 20 Mg/Ml) 10 mg IV Q6HR PRN PRN Reason: BP MAINTENANCE (PER PROTOCOL) Stop: 07/30/17 13:09 Last Admin: 06/01/17 08:09 Dose: 10 mg Norepinephrine Bitartrate 8 mg (/ Dextrose) 258 mls @ 0 mls/hr IV TITR PRN; Protocol; Titrate PRN Reason: BP MAINTENANCE (PER PROTOCOL) Stop: 07/19/17 12:29 Last Admin: 05/21/17 01:06 Dose: 10 mcg/min, 19.35 mls/hr Phenylephrine HCl 10 mg/ (Sodium Chloride) 250 mls @ 0 mls/hr IV TITR YESSICA; Per Protocol PRN Reason: Protocol Stop: 07/19/17 12:59 Multivitamins/Minerals 10 ml/Dextrose/ Amino Acids/Electrolytes/ Fat Emulsion Intravenous 960 mls @ 40 mls/hr IV .Q24H [facility] Stop: 08/01/17 14:59 Last Admin: 06/04/17 17:31 Dose: 40 mls/hr Insulin Aspart (Novolog Insulin Sliding Scale) 0 units SUBQ Q6HR YESSICA PRN Reason: Protocol Stop: 07/14/17 00:00 Last Admin: 06/04/17 12:36 Dose: Not Given Isosorbide Dinitrate (Isordil) 20 mg GT TID [facility] Stop: 07/28/17 13:33 Last Admin: 06/04/17 14:04 Dose: 20 mg Lactobacillus Rhamnosus (Culturelle) 1 each PO DAILY [facility] Stop: 07/17/17 08:59 Last Admin: 06/04/17 09:23 Dose: 1 each Levetiracetam (Keppra) 250 mg NG BID YESSICA Stop: 07/14/17 08:59 Last Admin: 06/04/17 17:27 Dose: 250 mg Metoclopramide HCl (Reglan) 5 mg IVP TID YESSICA Stop: 07/20/17 20:59 Last Admin: 06/04/17 14:05 Dose: 5 mg Metoprolol Tartrate (Lopressor) 50 mg GT Q8H YESSICA Stop: 07/18/17 08:59 Last Admin: 06/04/17 17:30 Dose: 50 mg Miscellaneous (Vte Chemical Prophylaxis Screen/ Admission) 1 ea PRN PRN PRN Reason: PROTOCOL Stop: 07/14/17 09:25 Miscellaneous (Clinical Monitoring) 1 ea MC DAILY PRN PRN Reason: RENAL Stop: 07/15/17 12:32 Miscellaneous (Probiotic Screen) 1 ea PRN PRN PRN Reason: PROTOCOL Stop: 07/16/17 09:33 Miscellaneous (Tpn Per Pharmacy) 1 ea PRN PRN PRN Reason: PROTOCOL Stop: 07/24/17 15:59 Pantoprazole Sodium (Protonix) 40 mg GT DAILY [facility] Stop: 07/14/17 08:59 Last Admin: 06/04/17 09:24 Dose: 40 mg General: No acute distress, Other (open eyes but not interractive), no Alert Cardiovascular: Regular rate Lungs: Other (occasional rhonchi) Abdomen: Soft, no Tender Extremities: no Edema (no edema) Neurological: Sensation intact, Other (lethargic) Skin: no Rash Psych/Mental Status: Mood NL - Procedures Procedures: Procedures Procedure Code Date INSERT EMERGENCY AIRWAY 92522 05/13/17 INSERT TUNNELED CV CATH [id number] 05/13/17 INSERTION OF ENDOTRACHEAL AIRWAY INTO TRACHEA, VIA OPENING [id number] 05/13/17 INSERTION OF INFUSION DEV INTO R FEMOR VEIN, PERC APPROACH [id number] 05/13/17 RESPIRATORY VENTILATION, GREATER THAN 96 CONSECUTIVE HOURS [id number] 05/13/17 VENT MGMT INPAT IN DAY 53370 05/13/17 Assessment/Plan - Problem List Patient Problems: All Active Problems COUGH AND CONGESTION (Acute) Congestive heart failure (CHF) (Acute) I50.9 congestive heart failure (Acute) hypertension uncontrolled with bradycarda (Acute) renal failure (Acute) - Assessment Assessment: Current Active Problems Problem Status Onset COUGH AND CONGESTION Acute Acute respiratory failure vent dependant Renal failure improving on HD MDRO Pneumonia improving Afib RVR UTI CAD 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 ? DIC Hematology following Follow CBC Heparin sub Q Cardizem iv prn Metoprolol Tygacil and Colistin per ID rec HD per nephrology rec Continue vent support PPN started for nutritional support Start tube feeding Plan of care discussed with nursing staff and RT Nutritional Asmnt/Malnutr-PDOC - Dietary Evaluation Malnutrition Findings (Please click <Entered> for more info): Nutritional Asmnt/Malnutrition Start: 05/15/17 13: 56 Text: Status: Complete Freq: Document 05/15/17 13:56 GSUN (Rec: 05/15/17 14:18 GSUN [id number]) Nutritional Asmnt/Malnutrition Patient General Information Nutritional Screening High Risk Screening Diagnosis PNA, NICK, icnreasing renal failure, CVA, CHF, DM Pertinent Medical Hx/Surgical Hx CVA, dementia, afib, CAD, HTN, dyslipidemia, epilepsy, GERD, aspiration PNA, DM, CKD, dehydration, C. diff, anemia D Subjective Information 86 year old male from SNF. Pt greeted RD. Pt is overall thin , moderate to severe wasting to chest, clavicles, extremities. Observed Glytrol running at 60ml/hr x20hrs during visit. Unable to obtain CBW due to bedscale not calibrated. Discussed with YVETTE Farooq regarding tube feeding recommendations. Current Diet Order/ Nutrition Support Glytrol at 60ml/hr x 20hrs, providing 1200kcal 54g protein Pertinent Medications Lipitor, Novolog, Levemir, Cephulac, Morphine, Protonix, Nacl 0.9% Pertinent Labs 05/13: potassium 5.3H, BUN 80H, creatinine 2.4H, glucose 103 05/15: potassium WNL, BUN 70H, creatinine 2.4H, glucose 239H, A1c 6.1H, phosphorus 5.4H Nutritional Hx/Data Height 1.68 m Height (Calculated Centimeters) 167.6 Current Weight (lbs) 65.771 kg Weight (Calculated Kilograms) 65.8 Weight (Calculated Grams) 67361.9 [place] Body Weight 142 Weight Status Approriate GI Symptoms Difficult in: Swallowing Cultural/Ethnic/[employer] Belief [facility]: Glucerna 1.2 at 85ml/hr x 20hrs, providing 2040kcal, promote weight gain. Skin Integrity/Comment: Gee 12. Skin intact. Estimated Nutritional Goals Calories/Kcals/Kg CBW 145lb/65.9kg Kcals Calculated 1976-7kcal (30-35kcal/kg) Protein Calculated 46-92g (0.7-1.4g/kg, renal vs moderate to severe wasting) Fluid: ml Per MD (renal) Nutritional Problem 2. 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 Problem Problem Inadequate intake from enteral nutrition infusion related to Etiology estimated nutritional needs aeb Signs/Symptoms: providing to meet 61% lower end kcal needs Intervention/Recommendation Comments 1. Recommend Novasource Renal at 50ml/hr x 20hrs, providing 2000kcal and 91g protein. Current order Glytrol at 60ml/ hr x 20hrs is only providing 1200kcal, pt recieves 2040kcal at [facility]. Expected Outcomes/Goals Expected Outcomes/Goals 1. Pt to meet at least 100% of estimated nutritional needs on tube feeding with tolerance .
--- NOTE | 2017-06-04 19:22 | General Progress Note ---
Subjective - Review of Systems Service Date: 06/04/17 Subjective: sleeping , on vent, nonverbal Objective - Results Result Diagrams: 06/04/17 04:47 06/04/17 04:47 Recent Labs: Laboratory Last Values WBC 7.6 Th/cmm (4.8-10.8) 06/04/17 04:47 RBC 3.06 Mil/cmm (3.80-5.80) L 06/04/17 04:47 Hgb 8.5 gm/dL (12.6-17.4) L 06/04/17 04:47 Hct 25.0 % (39.0-49.0) L 06/04/17 04:47 MCV 81.7 fl (80-99) 06/04/17 04:47 MCH 27.9 pg (27.0-31.0) 06/04/17 04:47 MCHC Differential 34.1 pg (28.0-36.0) 06/04/17 04:47 RDW 17.0 % (11.5-20.0) 06/04/17 04:47 Plt Count 121 Th/cmm (150-400) L 06/04/17 04:47 MPV 11.0 fl 06/04/17 04:47 Neutrophils % 72.7 % (40.0-80.0) 06/04/17 04:47 Band Neutrophils % 2 % (0-10) 05/26/17 04:40 Lymphocytes % 13.0 % (20.0-50.0) L 06/04/17 04:47 Monocytes % 13.5 % (2.0-10.0) H 06/04/17 04:47 Eosinophils % 0.6 % (0.0-5.0) 06/04/17 04:47 Basophils % 0.2 % (0.0-2.0) 06/04/17 04:47 Neutrophils (Manual) 89 % (40-80) H 05/26/17 04:40 Lymphocytes 5 % (20-50) L 05/26/17 04:40 Monocytes 4 % (2-10) 05/26/17 04:40 Eosinophils 0 % (0-5) 05/24/17 04:49 Basophils 0 % (0-3) 05/24/17 04:49 Metamyelocytes 1 % (0-0) H 05/22/17 04:44 Toxic Granulation 1+ 05/23/17 04:48 Platelet Estimate ADEQUATE (NORMAL) 05/26/17 04:40 Platelet Morphology NORMAL (NORMAL) 05/26/17 04:40 Anisocytosis 1+ 05/22/17 04:44 RBC Morph Micro Appear NORMAL (NORMAL) 05/26/17 04:40 Eos Smear Source URINE 05/14/17 18:00 Eos Smear Total Cells FEW EOSINOPHILS SEEN (NONE SEEN) 05/14/17 18:00 Plt Count 121 Th/cmm (150-750) L 06/04/17 04:47 PT 15.0 SECONDS (9.5-11.5) H 06/04/17 04:47 INR 1.41 (0.5-1.4) H 06/04/17 04:47 PTT (Actin FS) 69.2 SECONDS (26.0-38.0) H 06/04/17 04:47 Fibrinogen 106.0 mg/dL (200.0-400.0) L 06/04/17 04:47 D-Dimer 581 ng/mL (100-400) H 06/04/17 04:47 Specimen Source Arterial 06/04/17 09:14 Sample Site Right Radial 06/04/17 09:14 pH 7.42 (7.35-7.45) 06/04/17 09:14 pCO2 48.0 mmHg (35.0-45.0) H 06/04/17 09:14 pO2 62.0 mmHg (80.0-100.0) L 06/04/17 09:14 HCO3 29.2 mEq/L (20.0-26.0) H 06/04/17 09:14 Base Excess 5.6 mEq/L (-3.0-3.0) H 06/04/17 09:14 O2 Saturation 92.0 % (92.0-100.0) 06/04/17 09:14 Feliciano Test YES 06/04/17 09:14 Vent Rate 4 06/04/17 09:14 Inspired O2 30 06/04/17 09:14 Tidal Volume 500 06/04/17 09:14 PEEP 0 06/04/17 09:14 Pressure (ins/psv/peep) 18 06/04/17 09:14 Critical Value E.MCNEAL 06/04/17 09:14 Sodium 138 mEq/L (136-145) 06/04/17 04:47 Potassium 3.9 mEq/L (3.5-5.1) 06/04/17 04:47 Chloride 104 mEq/L (98-107) 06/04/17 04:47 Carbon Dioxide 29.5 mEq/L (21.0-31.0) 06/04/17 04:47 Anion Gap 8.4 (7.0-16.0) 06/04/17 04:47 BUN 45 mg/dL (7-25) H 06/04/17 04:47 Creatinine 2.3 mg/dL (0.7-1.3) H 06/04/17 04:47 Est GFR ( Amer) TNP 06/04/17 04:47 Est GFR (Non-Af Amer) TNP 06/04/17 04:47 BUN/Creatinine Ratio 19.6 06/04/17 04:47 Glucose 159 mg/dL (70-105) H 06/04/17 04:47 POC Glucose 274 MG/DL (70 - 105) H 06/04/17 18:05 Hemoglobin A1c % 6.1 % (4.0-6.0) H 05/15/17 06:30 Plasma/Ser Osmolality 301 mOsmol/kg (280-301) 05/14/17 18:20 Whole Bld Lactic Acid 1.58 mmol/L (0.60-1.99) 05/13/17 17:42 Uric Acid 7.7 mg/dL (4.4-7.6) H 05/15/17 06:30 Calcium 8.8 mg/dL (8.6-10.3) 06/04/17 04:47 Phosphorus 2.3 mg/dL (2.5-5.0) L 06/04/17 04:47 Magnesium 1.9 mg/dL (1.9-2.7) 06/04/17 04:47 Ferritin 351 ng/mL (30-400) 06/03/17 04:48 Total Bilirubin 2.7 mg/dL (0.3-1.0) H 06/03/17 04:48 Direct Bilirubin 0.09 mg/dL (0.0-0.2) 05/19/17 04:50 AST 75 U/L (13-39) H 06/03/17 04:48 ALT 10 U/L (7-52) 06/03/17 04:48 Alkaline Phosphatase 657 U/L (34-104) H 06/03/17 04:48 Ammonia 65 umol/L (16-53) H 05/19/17 04:50 Creatine Kinase 35 U/L (30-223) 05/16/17 23:06 Troponin I 0.02 ng/mL (0.01-0.05) 05/16/17 23:06 B-Natriuretic Peptide 739.0 pg/mL (5.0-100.0) H 05/23/17 04:48 Total Protein 5.7 gm/dL (6.0-8.3) L 06/03/17 04:48 Albumin 3.0 gm/dL (4.2-5.5) L 06/03/17 04:48 Globulin 2.7 gm/dL 06/03/17 04:48 Albumin/Globulin Ratio 1.1 (1.0-1.8) 06/03/17 04:48 Prealbumin 6 mg/dL (9-32) L 05/30/17 04:47 Triglycerides 60 mg/dL (<150) 06/04/17 04:47 Cholesterol 63 mg/dL (<200) 06/04/17 04:47 TSH 2.74 uIU/ml (0.34-5.60) 05/15/17 06:30 Urine Source CATH 05/13/17 19:50 Urine Color YELLOW 05/13/17 19:50 Urine Clarity CLOUDY (CLEAR) 05/13/17 19:50 Urine pH 6.0 05/13/17 19:50 Ur Specific Perry 1.015 (1.005-1.030) 05/13/17 19:50 Urine Protein 100 mg/dL (NEGATIVE) H 05/13/17 19:50 Urine Glucose (UA) NEGATIVE mg/dL (NEGATIVE) 05/13/17 19:50 Urine Ketones NEGATIVE mg/dL (NEGATIVE) 05/13/17 19:50 Urine Blood LARGE (NEGATIVE) H 05/13/17 19:50 Urine Nitrate NEGATIVE (NEGATIVE) 05/13/17 19:50 Urine Bilirubin NEGATIVE (NEGATIVE) 05/13/17 19:50 Urine Urobilinogen 0.2 E.U./dL (0.2 - 1.0) 05/13/17 19:50 Ur Leukocyte Esterase LARGE (NEGATIVE) H 05/13/17 19:50 Urine RBC 50-100 /hpf (0-5) H 05/13/17 19:50 Urine WBC >100 /hpf (0-5) H 05/13/17 19:50 Ur Epithelial Cells NONE SEEN /lpf (FEW) 05/13/17 19:50 Urine Bacteria NONE SEEN /hpf (NONE SEEN) 05/13/17 19:50 Ur Random Sodium 30 mmol/L 05/14/17 18:00 Urine Creatinine 36.4 mg/dl (Not Estab.) 05/14/17 18:00 Urine Microalbumin 363.5 ug/mL (Not Estab.) 05/14/17 18:00 Microalb/Creat Ratio 998.6 mg/g creat (0.0-30.0) H 05/14/17 18:00 Stool Occult Blood NEGATIVE (NEGATIVE) 05/25/17 17:49 Random Vancomycin 19.1 ug/mL (5.0-40.0) 05/19/17 04:50 Hepatitis A IgM Ab Negative (Negative) 05/21/17 04:46 Hep Bs Antigen Negative (Negative) 05/21/17 04:46 Hep B Core IgM Ab Negative (Negative) 05/21/17 04:46 Hepatitis C Antibody 0.1 s/co ratio (0.0-0.9) 05/21/17 04:46 Blood Type B POSITIVE 06/04/17 04:47 Antibody Screen NEGATIVE 06/04/17 04:47 Crossmatch See Detail 05/21/17 10:19 - Physical Exam Vitals and I&O: Vital Signs Temp 98.4 F 06/04/17 18:00 Pulse 71 06/04/17 19:06 Resp 23 06/04/17 18:00 BP 123/55 06/04/17 18:00 Pulse Ox 97 06/04/17 19:06 Intake & Output 06/04/17 06/04/17 06/05/17 06:59 18:59 06:59 Intake Total 630 2035.333 Output Total 450 350 Balance 180 1685.333 Weight (lbs) 65.363 kg 65.363 kg Intake: Intake, IV Amount 945.333 Multivitamin Inj 10 ml In 945.333 Dextrose 70% 250 ml In Amino Acids 10% 500 ml In Intralipids 20% 200 ml @ 40 mls/hr IV .Q24H [facility] Rx#:[id number] Oral 0 Tube Feeding 60 TPN/PPN 480 480 Blood Product 300 Other 150 250 Output: Urine 450 350 Other: # Bowel Movements 1 2 Stool Characteristics Liquid Soft Mucoid Liquid Brown Active Medications: Current Medications Acetaminophen (Tylenol) 650 mg PO Q4HR PRN PRN Reason: Pain Or Fever above 101 Stop: 07/14/17 15:15 Last Admin: 05/23/17 15:07 Dose: 650 mg Albuterol/Ipratropium (Duoneb Neb) 3 ml HHN Q4HRT [facility] Stop: 07/19/17 14:59 Last Admin: 06/04/17 19:05 Dose: 3 ml Atorvastatin Calcium (Lipitor) 10 mg GT HS YESSICA PRN Reason: Protocol Stop: 07/14/17 20:59 Last Admin: 06/03/17 20:26 Dose: 10 mg Budesonide (Pulmicort) 1 mg HHN BIDRT [facility] Stop: 07/19/17 18:59 Last Admin: 06/04/17 19:04 Dose: 1 mg Calamine/Phenol (Calmoseptine) 1 appl TP QID PRN PRN Reason: Skin Irritation Stop: 08/03/17 12:28 Calamine/Phenol (Calmoseptine) 1 appl TP QID [facility] Stop: 08/03/17 12:59 Last Admin: 06/04/17 17:27 Dose: 1 appl Carbidopa/Levodopa (Sinemet 25mg-100 Mg) 1 tab PO TID [facility] Stop: 07/14/17 08:59 Last Admin: 06/04/17 14:04 Dose: 1 tab Chlorhexidine Gluconate (Peridex) 15 ml MM 0800,1999 [facility] Stop: 07/23/17 19:59 Last Admin: 06/04/17 08:45 Dose: 15 ml Clonidine HCl (Catapres) 0.1 mg PO Q6HR PRN PRN Reason: BP MAINTENANCE (PER PROTOCOL) Stop: 07/28/17 13:31 Last Admin: 05/29/17 21:04 Dose: 0.1 mg Colistimethate Sodium (Colistin) 75 mg HHN BIDRT [facility] Stop: 07/30/17 18:59 Last Admin: 06/04/17 19:04 Dose: 75 mg Dextrose (D50w) 50 ml IVP PRN PRN; Protocol PRN Reason: HYPOGLYCEMIA Stop: 07/20/17 00:54 Last Admin: 05/22/17 23:34 Dose: 50 ml Diltiazem HCl (Cardizem) 10 mg IVP Q6HR PRN PRN Reason: HR >130 Stop: 07/22/17 17:09 Last Admin: 05/24/17 04:21 Dose: 10 mg Furosemide (Lasix) 40 mg IVP DAILY [facility] Stop: 07/18/17 08:59 Last Admin: 06/04/17 09:22 Dose: 40 mg Hydralazine HCl (Apresoline 20 Mg/Ml) 10 mg IV Q6HR PRN PRN Reason: BP MAINTENANCE (PER PROTOCOL) Stop: 07/30/17 13:09 Last Admin: 06/01/17 08:09 Dose: 10 mg Norepinephrine Bitartrate 8 mg (/ Dextrose) 258 mls @ 0 mls/hr IV TITR PRN; Protocol; Titrate PRN Reason: BP MAINTENANCE (PER PROTOCOL) Stop: 07/19/17 12:29 Last Admin: 05/21/17 01:06 Dose: 10 mcg/min, 19.35 mls/hr Phenylephrine HCl 10 mg/ (Sodium Chloride) 250 mls @ 0 mls/hr IV TITR YESSICA; Per Protocol PRN Reason: Protocol Stop: 07/19/17 12:59 Multivitamins/Minerals 10 ml/Dextrose/ Amino Acids/Electrolytes/ Fat Emulsion Intravenous 960 mls @ 40 mls/hr IV .Q24H [facility] Stop: 08/01/17 14:59 Last Admin: 06/04/17 17:31 Dose: 40 mls/hr Insulin Aspart (Novolog Insulin Sliding Scale) 0 units SUBQ Q6HR YESSICA PRN Reason: Protocol Stop: 07/14/17 00:00 Last Admin: 06/04/17 18:06 Dose: 3 units Isosorbide Dinitrate (Isordil) 20 mg GT TID [facility] Stop: 07/28/17 13:33 Last Admin: 06/04/17 14:04 Dose: 20 mg Lactobacillus Rhamnosus (Culturelle) 1 each PO DAILY [facility] Stop: 07/17/17 08:59 Last Admin: 06/04/17 09:23 Dose: 1 each Levetiracetam (Keppra) 250 mg NG BID [facility] Stop: 07/14/17 08:59 Last Admin: 06/04/17 17:27 Dose: 250 mg Metoclopramide HCl (Reglan) 5 mg IVP TID [facility]ESS[facility] Stop: 07/20/17 20:59 Last Admin: 06/04/17 14:05 Dose: 5 mg Metoprolol Tartrate (Lopressor) 50 mg GT Q8H [facility] Stop: 07/18/17 08:59 Last Admin: 06/04/17 17:30 Dose: 50 mg Miscellaneous (Vte Chemical Prophylaxis Screen/ Admission) 1 ea PRN PRN PRN Reason: PROTOCOL Stop: 07/14/17 09:25 Miscellaneous (Clinical Monitoring) 1 ea DAILY PRN PRN Reason: RENAL Stop: 07/15/17 12:32 Miscellaneous (Probiotic Screen) 1 [facility] PRN PRN PRN Reason: PROTOCOL Stop: 07/16/17 09:33 Miscellaneous (Tpn Per Pharmacy) 1 [facility] PRN PRN PRN Reason: PROTOCOL Stop: 07/24/17 15:59 Pantoprazole Sodium (Protonix) 40 mg GT DAILY [facility] Stop: 07/14/17 08:59 Last Admin: 06/04/17 09:24 Dose: 40 mg General: No acute distress, Other (open eyes but not interractive), no Alert HEENT: Atraumatic, EOMI (normal), Mucous membr. moist/pink Neck: Supple, +2 carotid pulse wo bruit Cardiovascular: Regular rate, Normal S1, Normal S2 Lungs: Other (occasional rhonchi) Abdomen: Soft, no Tender Extremities: no Edema (no edema) Neurological: Sensation intact, Other (lethargic) Skin: no Rash Psych/Mental Status: Mood NL - Procedures Procedures: Procedures Procedure Code Date INSERT EMERGENCY AIRWAY 72779 05/13/17 INSERT TUNNELED CV CATH 59078 05/13/17 INSERTION OF ENDOTRACHEAL AIRWAY INTO TRACHEA, VIA OPENING 1HB34GH 05/13/17 INSERTION OF INFUSION DEV INTO R FEMOR VEIN, PERC APPROACH 46QL20D 05/13/17 RESPIRATORY VENTILATION, GREATER THAN 96 CONSECUTIVE HOURS [id number] 05/13/17 VENT MGMT INPAT IN DAY 06140 05/13/17 Assessment/Plan - Problem List Patient Problems: All Active Problems COUGH AND CONGESTION (Acute) Congestive heart failure (CHF) (Acute) I50.9 congestive heart failure (Acute) hypertension uncontrolled with bradycarda (Acute) renal failure (Acute) - Assessment Assessment: NICK on CKD, now on dialysis A LOC secondary to metabolic encephalopathy/medications Dehydration Essential hypertension with CKD COPD Chronic atrial fibrillation Status post CVA Aspiration pneumonia/dysphagia status post PEG Type 2 diabetes mellitus with CKD Acute Decompensated CHF Acute Resp Failure on Vent - Plan Plan: Lab - Result Diagrams 05/15/17 06:30 05/15/17 06:30 Current Medications Acetaminophen (Tylenol) 650 mg PO Q4HR PRN PRN Reason: Pain Or Fever above 101 Stop: 07/14/17 15:15 Last Admin: 05/15/17 16:21 Dose: 650 mg Albuterol Sulfate (Albuterol 2.5mg/3ml Neb Ud) 2.5 mg HHN Q6HRT [facility] Stop: 07/14/17 00:59 Last Admin: 05/15/17 16:05 Dose: 2.5 mg Atorvastatin Calcium (Lipitor) 10 mg GT HS YESSICA PRN Reason: Protocol Stop: 07/14/17 20:59 Carbidopa/Levodopa (Sinemet 25mg-100 Mg) 1 tab PO TID YESSICA Stop: 07/14/17 08:59 Last Admin: 05/15/17 14:02 Dose: 1 tab Heparin Sodium (Porcine) (Heparin) 5,000 units SUBQ Q8H [facility] Stop: 07/14/17 14:59 Last Admin: 05/15/17 16:24 Dose: 5,000 units Sodium Chloride (Nacl 0.9%) 1,000 mls @ 60 mls/hr IV .[id number] [facility]ESS[facility] Stop: 07/13/17 06:40 Last Admin: 05/14/17 17:16 Dose: 60 mls/hr Azithromycin 250 mg/ Sodium (Chloride) 250 mls @ 250 mls/hr IV Q24HR [facility] Stop: 05/20/17 08:59 Piperacillin Sod/Tazobactam (Sod 3.375 gm/ Sodium Chloride) 50 mls @ 100 mls/ hr IV Q8HR [facility]ESS[facility] Stop: 07/14/17 15:14 Last Admin: 05/15/17 15:57 Dose: 100 mls/hr Insulin Aspart (Novolog Insulin Sliding Scale) 0 units SUBQ Q6HR YESSICA PRN Reason: Protocol Stop: 07/14/17 00:00 Last Admin: 05/15/17 17:09 Dose: Not Given Insulin Detemir (Levemir Insulin) 14 units SUBQ DAILY YESSICA PRN Reason: Protocol Stop: 07/15/17 08:59 Isosorbide Dinitrate (Isordil) 10 mg GT TID [facility]ESSICA Stop: 07/14/17 08:59 Last Admin: 05/15/17 14:02 Dose: 10 mg Lactulose (Cephulac) 20 gm PO TID YESSICA Stop: 07/14/17 08:59 Last Admin: 05/15/17 14:02 Dose: 20 gm Levetiracetam (Keppra) 250 mg NG BID [facility] Stop: 07/14/17 08:59 Last Admin: 05/15/17 16:23 Dose: 250 mg Metoprolol Tartrate (Lopressor) 37.5 mg GT BID [facility] Stop: 07/14/17 00:14 Last Admin: 05/15/17 16:22 Dose: 37.5 mg Miscellaneous (Vte Chemical Prophylaxis Screen/ Admission) 1 ea [facility] PRN PRN PRN Reason: PROTOCOL Stop: 07/14/17 09:25 Morphine Sulfate (Morphine) 2 mg IVP Q3H PRN PRN Reason: PAIN Stop: 07/13/17 19:46 Last Admin: 05/14/17 21:16 Dose: 2 mg Mupirocin (Bactroban Oint) 1 appl TP BID [facility] Stop: 07/14/17 16:59 Last Admin: 05/15/17 16:24 Dose: 1 appl Pantoprazole Sodium (Protonix) 40 mg GT DAILY [facility] Stop: 07/14/17 08:59 Last Admin: 05/15/17 08:36 Dose: 40 mg Rifaximin (Xifaxan) 550 mg GT BID [facility] Stop: 07/14/17 08:59 Last Admin: 05/15/17 16:23 Dose: 550 mg Latest BUN/CR were 45/2.3 White count down to 7.6 on Zosyn Chest x-ray still w/ b/l infiltrates, effusions, no significant change Reviewed his meds Follow-up electrolytes currently on PPN @ 40 ml /hr prognosis poor Hgb/Hct down to 8.5/25 scheduled for HD tomorrow Follow-up electrolytes, CBC and chest x-ray in a.m. urine nadine 650ml started nepro 20 ml/hr Lab - Result Diagrams 05/24/17 04:49 05/24/17 04:49 addendum: Poor response to diuretics, w/ worsening CHF, BNP level developed resp failure, required intubation worsening cardio-renal syndrome discussed w/ grandson Pedro, about poor prognosis but still want to proceed w/ dialysis Nutritional Asmnt/Malnutr-PDOC - Dietary Evaluation Malnutrition Findings (Please click <Entered> for more info): Nutritional Asmnt/Malnutrition Start: 05/15/17 13: 56 Text: Status: Complete Freq: Document 05/15/17 13:56 GSUN (Rec: 05/15/17 14:18 GSUN [id number]) Nutritional Asmnt/Malnutrition Patient General Information Nutritional Screening High Risk Screening Diagnosis PNA, NICK, icnreasing renal failure, CVA, CHF, DM Pertinent Medical Hx/Surgical Hx CVA, dementia, afib, CAD, HTN, dyslipidemia, epilepsy, GERD, aspiration PNA, DM, CKD, dehydration, C. diff, anemia D Subjective Information 86 year old male from SNF. Pt greeted RD. Pt is overall thin , moderate to severe wasting to chest, clavicles, extremities. Observed Glytrol running at 60ml/hr x20hrs during visit. Unable to obtain CBW due to bedscale not calibrated. Discussed with YVETTE Farooq regarding tube feeding recommendations. Current Diet Order/ Nutrition Support Glytrol at 60ml/hr x 20hrs, providing 1200kcal 54g protein Pertinent Medications Lipitor, Novolog, Levemir, Cephulac, Morphine, Protonix, Nacl 0.9% Pertinent Labs 05/13: potassium 5.3H, BUN 80H, creatinine 2.4H, glucose 103 05/15: potassium WNL, BUN 70H, creatinine 2.4H, glucose 239H, A1c 6.1H, phosphorus 5.4H Nutritional Hx/Data Height 1.68 m Height (Calculated Centimeters) 167.6 Current Weight (lbs) 65.771 kg Weight (Calculated Kilograms) 65.8 Weight (Calculated Grams) 32197.9 [place] Body Weight 142 Weight Status Approriate GI Symptoms Difficult in: Swallowing Cultural/Ethnic/[employer] [facility]: Glucerna 1.2 at 85ml/hr x 20hrs, providing 2040kcal, promote weight gain. Skin Integrity/Comment: Gee 12. Skin intact. Estimated Nutritional Goals Calories/Kcals/Kg CBW 145lb/65.9kg Kcals Calculated 1976-7kcal (30-35kcal/kg) Protein Calculated 46-92g (0.7-1.4g/kg, renal vs moderate to severe wasting) Fluid: ml Per MD (renal) Nutritional Problem 2. Problem Problem Impaired nutrient utilization related to Etiology NICK, hx CKD aeb Signs/Symptoms: "increasing renal failure," potaasum 5.3H on adm, BUN 70H, senior service aide 2.4H, phosphorus 5.4H 1. Problem Problem Inadequate intake from enteral nutrition infusion related to Etiology estimated nutritional needs aeb Signs/Symptoms: providing to meet 61% lower end kcal needs Intervention/Recommendation Comments 1. Recommend Novasource Renal at 50ml/hr x 20hrs, providing 2000kcal and 91g protein. Current order Glytrol at 60ml/ hr x 20hrs is only providing 1200kcal, pt recieves 2040kcal at [facility]. Expected Outcomes/Goals Expected Outcomes/Goals 1. Pt to meet at least 100% of estimated nutritional needs on tube feeding with tolerance .
--- NOTE | 2017-06-04 20:22 | Progress Notes ---
DATE: 06/04/2017 PULMONARY PROGRESS NOTE PROBLEM LIST: 1. Persistent respiratory failure, bilateral pneumonia, multidrug resistant organism, with congestive heart failure. 2. Significant recurrent altered state of mind. SYMPTOMS: Nil. He is awake, but not following simple commands, looks from side to side, no respiratory distress, etc. PHYSICAL EXAMINATION: VITAL SIGNS: Temperature is 97.7, blood pressure 138/80, saturation is okay on 30% with SIMV 4. NECK: Veins not visualized. CHEST: Shows diminished air entry with occasional rhonchi. HEART: Regular. ABDOMEN: Soft, nontender. LABORATORY DATA: The patient's hemoglobin is 8.5, white count is 7.6. ABG; pO2 of 62, pCO2 of 48 and this is on SIMV 4 with pressor support of 18. ASSESSMENT: The patient clinically is status quo, labile mental status, extensive disease lung, not ready to extubate, consideration for trach is recommended. We will continue all the respiratory care, etc and go from there. JOB# [id number]
[2017-06-04] MEDS: Atorvastatin Calcium 10 MG TAB GT SCH (21:13)
[2017-06-05] MEDS: INSULIN ASPART SLIDING SCALE 100 UNITS/ML UNIT SUBQ SCH ×4 (00:34→17:53)
[2017-06-05] MEDS: Albuterol/Ipratropium Neb 3 ML AERS HHN SCH ×6 (03:17→22:44)
[2017-06-05 05:23] LABS: MEAN PLATELET VOLUME 10.3 fl
[2017-06-05 05:29] LABS: MEAN CELL VOLUME 81.9 fl (80-99); MEAN CORPUSCULAR HEMOGLOBIN 27.8 pg (27.0-31.0); MEAN CORPUSCULAR HGB CONC 33.9 pg (28.0-36.0); PLATELET COUNT 95 Th/cmm (150-400); RED CELL DISTRIBUTION WIDTH 16.5 % (11.5-20.0); WHITE BLOOD COUNT 7.8 Th/cmm (4.8-10.8)
[2017-06-05 05:37] LABS: INR 1.21 (0.5-1.4); PROTHROMBIN TIME (TEST) 12.7 SECONDS (9.5-11.5)
[2017-06-05 05:42] LABS: HEMATOCRIT 22.1 % (39.0-49.0)
[2017-06-05 05:43] LABS: ANION GAP 11.4 (7.0-16.0); BUN - UREA NITROGEN 62 mg/dL (7-25); BUN/CREATININE RATIO 21.4; CALCIUM SERUM 9.1 mg/dL (8.6-10.3); CARBON DIOXIDE 28.5 mEq/L (21.0-31.0); CHLORIDE 103 mEq/L (98-107); CREATININE - SERUM 2.9 mg/dL (0.7-1.3); GLUCOSE 233 mg/dL (70-105); MAGNESIUM 2.1 mg/dL (1.9-2.7); PHOSPHOROUS 3.9 mg/dL (2.5-5.0); POTASSIUM SERUM 3.9 mEq/L (3.5-5.1); SODIUM SERUM 139 mEq/L (136-145)
[2017-06-05 06:09] LABS: IRON SATURATION 74 % (15-55); TIBC (LCI) 94 ug/dL (250-450); UIBC 24 ug/dL (111-343)
[2017-06-05 06:11] LABS: HEMOGLOBIN 7.5 gm/dL (12.6-17.4)
[2017-06-05] MEDS: Budesonide 0.5 Mg/2 mL Ud HHN SCH ×2 (07:24→19:05)
[2017-06-05] MEDS: Levetiracetam 500 mg/5mL 5mL UDC NG SCH ×2 (08:39→16:30)
[2017-06-05] MEDS: Lactobacillus Rhamnosus 10 Billion CFU Capsule PO SCH (08:40)
[2017-06-05] MEDS: Pantoprazole 40 mg/Packet GT SCH (08:40)
[2017-06-05] MEDS: Metoclopramide 5 mg/mL 2mL Vial IVP SCH ×3 (08:40→20:34)
[2017-06-05] MEDS: Menthol/Zinc Oxide Oint 113gm Tube TP SCH ×4 (08:41→22:22)
[2017-06-05] MEDS: Chlorhexidine Gluconate 0.12% 15mL Mouthwash MM SCH ×2 (08:41→20:26)
[2017-06-05 08:49] LABS: ANISOCYTOSIS 1+; BAND NEUTROPHILE 5 % (0-10); METAMYELOCYTE 1 % (0-0); NEUTROPHILS 73 % (40-80); PLATELET ESTIMATE DECREASED PLATELETS (NORMAL); PLATELET MORPHOLOGY GIANT PLATELETS SEEN (NORMAL); POIKILOCYTOSIS 1+; TARGET CELLS 2+; TOTAL CELLS COUNTED 100
--- NOTE | 2017-06-05 10:01 | General Progress Note ---
Subjective - Review of Systems Service Date: 06/05/17 Events since last encounter: still intubated Objective - Results Result Diagrams: 06/05/17 04:42 06/05/17 04:42 Recent Labs: Laboratory Last Values WBC 7.8 Th/cmm (4.8-10.8) 06/05/17 04:42 RBC 2.70 Mil/cmm (3.80-5.80) L 06/05/17 04:42 Hgb 7.5 gm/dL (12.6-17.4) L* D 06/05/17 04:42 Hct 22.1 % (39.0-49.0) L* D 06/05/17 04:42 MCV 81.9 fl (80-99) 06/05/17 04:42 MCH 27.8 pg (27.0-31.0) 06/05/17 04:42 MCHC Differential 33.9 pg (28.0-36.0) 06/05/17 04:42 RDW 16.5 % (11.5-20.0) 06/05/17 04:42 Plt Count 95 Th/cmm (150-400) L D 06/05/17 04:42 MPV 10.3 fl 06/05/17 04:42 Neutrophils % 72.7 % (40.0-80.0) 06/04/17 04:47 Band Neutrophils % 5 % (0-10) 06/05/17 04:42 Lymphocytes % 13.0 % (20.0-50.0) L 06/04/17 04:47 Monocytes % 13.5 % (2.0-10.0) H 06/04/17 04:47 Eosinophils % 0.6 % (0.0-5.0) 06/04/17 04:47 Basophils % 0.2 % (0.0-2.0) 06/04/17 04:47 Neutrophils (Manual) 73 % (40-80) 06/05/17 04:42 Lymphocytes 13 % (20-50) L 06/05/17 04:42 Monocytes 8 % (2-10) 06/05/17 04:42 Eosinophils 0 % (0-5) 05/24/17 04:49 Basophils 0 % (0-3) 05/24/17 04:49 Metamyelocytes 1 % (0-0) H 06/05/17 04:42 Toxic Granulation 1+ 05/23/17 04:48 Platelet Estimate DECREASED PLATELETS (NORMAL) 06/05/17 04:42 Platelet Morphology GIANT PLATELETS SEEN (NORMAL) 06/05/17 04:42 Poikilocytosis 1+ 06/05/17 04:42 Anisocytosis 1+ 06/05/17 04:42 Target Cells 2+ 06/05/17 04:42 RBC Morph Micro Appear ABNORMAL (NORMAL) 06/05/17 04:42 Eos Smear Source URINE 05/14/17 18:00 Eos Smear Total Cells FEW EOSINOPHILS SEEN (NONE SEEN) 05/14/17 18:00 Plt Count 121 Th/cmm (150-750) L 06/04/17 04:47 PT 12.7 SECONDS (9.5-11.5) H 06/05/17 04:42 INR 1.21 (0.5-1.4) 06/05/17 04:42 PTT (Actin FS) 43.2 SECONDS (26.0-38.0) H 06/05/17 04:42 Fibrinogen 136.0 mg/dL (200.0-400.0) L 06/05/17 04:42 D-Dimer 581 ng/mL (100-400) H 06/04/17 04:47 Specimen Source Arterial 06/04/17 09:14 Sample Site Right Radial 06/04/17 09:14 pH 7.42 (7.35-7.45) 06/04/17 09:14 pCO2 48.0 mmHg (35.0-45.0) H 06/04/17 09:14 pO2 62.0 mmHg (80.0-100.0) L 06/04/17 09:14 HCO3 29.2 mEq/L (20.0-26.0) H 06/04/17 09:14 Base Excess 5.6 mEq/L (-3.0-3.0) H 06/04/17 09:14 O2 Saturation 92.0 % (92.0-100.0) 06/04/17 09:14 Feliciano Test YES 06/04/17 09:14 Vent Rate 4 06/04/17 09:14 Inspired O2 30 06/04/17 09:14 Tidal Volume 500 06/04/17 09:14 PEEP 0 06/04/17 09:14 Pressure (ins/psv/peep) 18 06/04/17 09:14 Critical Value LUPILLOO 06/04/17 09:14 Sodium 139 mEq/L (136-145) 06/05/17 04:42 Potassium 3.9 mEq/L (3.5-5.1) 06/05/17 04:42 Chloride 103 mEq/L (98-107) 06/05/17 04:42 Carbon Dioxide 28.5 mEq/L (21.0-31.0) 06/05/17 04:42 Anion Gap 11.4 (7.0-16.0) 06/05/17 04:42 BUN 62 mg/dL (7-25) H 06/05/17 04:42 Creatinine 2.9 mg/dL (0.7-1.3) H 06/05/17 04:42 Est GFR ( Amer) TNP 06/05/17 04:42 Est GFR (Non-Af Amer) TNP 06/05/17 04:42 BUN/Creatinine Ratio 21.4 06/05/17 04:42 Glucose 233 mg/dL (70-105) H 06/05/17 04:42 POC Glucose 222 MG/DL (70 - 105) H 06/05/17 00:22 Hemoglobin A1c % 6.1 % (4.0-6.0) H 05/15/17 06:30 Plasma/Ser Osmolality 301 mOsmol/kg (280-301) 05/14/17 18:20 Whole Bld Lactic Acid 1.58 mmol/L (0.60-1.99) 05/13/17 17:42 Uric Acid 7.7 mg/dL (4.4-7.6) H 05/15/17 06:30 Calcium 9.1 mg/dL (8.6-10.3) 06/05/17 04:42 Phosphorus 3.9 mg/dL (2.5-5.0) 06/05/17 04:42 Magnesium 2.1 mg/dL (1.9-2.7) 06/05/17 04:42 Iron 70 ug/dL (38-169) 06/04/17 04:47 TIBC 94 ug/dL (250-450) L 06/04/17 04:47 Iron Saturation 74 % (15-55) H 06/04/17 04:47 Unsaturated IBC 24 ug/dL (111-343) L 06/04/17 04:47 Ferritin 351 ng/mL (30-400) 06/03/17 04:48 Total Bilirubin 2.7 mg/dL (0.3-1.0) H 06/03/17 04:48 Direct Bilirubin 0.09 mg/dL (0.0-0.2) 05/19/17 04:50 AST 75 U/L (13-39) H 06/03/17 04:48 ALT 10 U/L (7-52) 06/03/17 04:48 Alkaline Phosphatase 657 U/L (34-104) H 06/03/17 04:48 Ammonia 65 umol/L (16-53) H 05/19/17 04:50 Creatine Kinase 35 U/L (30-223) 05/16/17 23:06 Troponin I 0.02 ng/mL (0.01-0.05) 05/16/17 23:06 B-Natriuretic Peptide 1480.0 pg/mL (5.0-100.0) H 06/05/17 04:42 Total Protein 5.7 gm/dL (6.0-8.3) L 06/03/17 04:48 Albumin 3.0 gm/dL (4.2-5.5) L 06/03/17 04:48 Globulin 2.7 gm/dL 06/03/17 04:48 Albumin/Globulin Ratio 1.1 (1.0-1.8) 06/03/17 04:48 Prealbumin 6 mg/dL (9-32) L 06/04/17 04:47 Triglycerides 60 mg/dL (<150) 06/04/17 04:47 Cholesterol 63 mg/dL (<200) 06/04/17 04:47 TSH 2.74 uIU/ml (0.34-5.60) 05/15/17 06:30 Urine Source CATH 05/13/17 19:50 Urine Color YELLOW 05/13/17 19:50 Urine Clarity CLOUDY (CLEAR) 05/13/17 19:50 Urine pH 6.0 05/13/17 19:50 Ur Specific [place] 1.015 (1.005-1.030) 05/13/17 19:50 Urine Protein 100 mg/dL (NEGATIVE) H 05/13/17 19:50 Urine Glucose (UA) NEGATIVE mg/dL (NEGATIVE) 05/13/17 19:50 Urine Ketones NEGATIVE mg/dL (NEGATIVE) 05/13/17 19:50 Urine Blood LARGE (NEGATIVE) H 05/13/17 19:50 Urine Nitrate NEGATIVE (NEGATIVE) 05/13/17 19:50 Urine Bilirubin NEGATIVE (NEGATIVE) 05/13/17 19:50 Urine Urobilinogen 0.2 E.U./dL (0.2 - 1.0) 05/13/17 19:50 Ur Leukocyte Esterase LARGE (NEGATIVE) H 05/13/17 19:50 Urine RBC 50-100 /hpf (0-5) H 05/13/17 19:50 Urine WBC >100 /hpf (0-5) H 05/13/17 19:50 Ur Epithelial Cells NONE SEEN /lpf (FEW) 05/13/17 19:50 Urine Bacteria NONE SEEN /hpf (NONE SEEN) 05/13/17 19:50 Ur Random Sodium 30 mmol/L 05/14/17 18:00 Urine Creatinine 36.4 mg/dl (Not Estab.) 05/14/17 18:00 Urine Microalbumin 363.5 ug/mL (Not Estab.) 05/14/17 18:00 Microalb/Creat Ratio 998.6 mg/g creat (0.0-30.0) H 05/14/17 18:00 Stool Occult Blood NEGATIVE (NEGATIVE) 05/25/17 17:49 Random Vancomycin 19.1 ug/mL (5.0-40.0) 05/19/17 04:50 Hepatitis A IgM Ab Negative (Negative) 05/21/17 04:46 Hep Bs Antigen Negative (Negative) 05/21/17 04:46 Hep B Core IgM Ab Negative (Negative) 05/21/17 04:46 Hepatitis C Antibody 0.1 s/co ratio (0.0-0.9) 05/21/17 04:46 Blood Type B POSITIVE 06/04/17 04:47 Antibody Screen NEGATIVE 06/04/17 04:47 Crossmatch See Detail 05/21/17 10:19 - Physical Exam Vitals and I&O: Vital Signs Temp 99.7 F 06/05/17 04:00 Pulse 86 06/05/17 08:40 Resp 30 06/05/17 07:00 BP 138/65 06/05/17 08:40 Pulse Ox 100 06/05/17 08:00 Intake & Output 06/04/17 06/05/17 06/05/17 18:59 06:59 18:59 Intake Total 2035.333 720 Output Total 350 300 Balance 1685.333 420 Weight (lbs) 65.363 kg 65.363 kg Intake: Intake, IV Amount 945.333 Multivitamin Inj 10 ml In 945.333 Dextrose 70% 250 ml In Amino Acids 10% 500 ml In Intralipids 20% 200 ml @ 40 mls/hr IV .Q24H [facility] Rx#:[id number] Oral 0 Tube Feeding 60 220 TPN/PPN 480 Blood Product 300 300 Other 250 200 Output: Urine 350 300 Other: # Bowel Movements 2 3 Stool Characteristics Soft Soft Soft Liquid Liquid Liquid Active Medications: Current Medications Acetaminophen (Tylenol) 650 mg PO Q4HR PRN PRN Reason: Pain Or Fever above 101 Stop: 07/14/17 15:15 Last Admin: 05/23/17 15:07 Dose: 650 mg Albuterol/Ipratropium (Duoneb Neb) 3 ml HHN Q4HRT [facility] Stop: 07/19/17 14:59 Last Admin: 06/05/17 07:24 Dose: 3 ml Atorvastatin Calcium (Lipitor) 10 mg GT HS YESSICA PRN Reason: Protocol Stop: 07/14/17 20:59 Last Admin: 06/04/17 21:13 Dose: 10 mg Budesonide (Pulmicort) 1 mg HHN BIDRT [facility] Stop: 07/19/17 18:59 Last Admin: 06/05/17 07:24 Dose: 1 mg Calamine/Phenol (Calmoseptine) 1 appl TP QID PRN PRN Reason: Skin Irritation Stop: 08/03/17 12:28 Calamine/Phenol (Calmoseptine) 1 appl TP QID [facility] Stop: 08/03/17 12:59 Last Admin: 06/05/17 08:41 Dose: 1 appl Carbidopa/Levodopa (Sinemet 25mg-100 Mg) 1 tab PO TID [facility] Stop: 07/14/17 08:59 Last Admin: 06/05/17 08:40 Dose: 1 tab Chlorhexidine Gluconate (Peridex) 15 ml MM 08,1999 [facility] Stop: 07/23/17 19:59 Last Admin: 06/05/17 08:41 Dose: 15 ml Clonidine HCl (Catapres) 0.1 mg PO Q6HR PRN PRN Reason: BP MAINTENANCE (PER PROTOCOL) Stop: 07/28/17 13:31 Last Admin: 05/29/17 21:04 Dose: 0.1 mg Colistimethate Sodium (Colistin) 75 mg HHN BIDRT YESSICA Stop: 07/30/17 18:59 Last Admin: 06/05/17 07:24 Dose: 75 mg Dextrose (D50w) 50 ml IVP PRN PRN; Protocol PRN Reason: HYPOGLYCEMIA Stop: 07/20/17 00:54 Last Admin: 05/22/17 23:34 Dose: 50 ml Diltiazem HCl (Cardizem) 10 mg IVP Q6HR PRN PRN Reason: HR >130 Stop: 07/22/17 17:09 Last Admin: 05/24/17 04:21 Dose: 10 mg Furosemide (Lasix) 40 mg IVP DAILY YESSICA Stop: 07/18/17 08:59 Last Admin: 06/05/17 08:39 Dose: 40 mg Hydralazine HCl (Apresoline 20 Mg/Ml) 10 mg IV Q6HR PRN PRN Reason: BP MAINTENANCE (PER PROTOCOL) Stop: 07/30/17 13:09 Last Admin: 06/01/17 08:09 Dose: 10 mg Norepinephrine Bitartrate 8 mg (/ Dextrose) 258 mls @ 0 mls/hr IV TITR PRN; Protocol; Titrate PRN Reason: BP MAINTENANCE (PER PROTOCOL) Stop: 07/19/17 12:29 Last Admin: 05/21/17 01:06 Dose: 10 mcg/min, 19.35 mls/hr Phenylephrine HCl 10 mg/ (Sodium Chloride) 250 mls @ 0 mls/hr IV TITR YESSICA; Per Protocol PRN Reason: Protocol Stop: 07/19/17 12:59 Multivitamins/Minerals 10 ml/Dextrose/ Amino Acids/Electrolytes/ Fat Emulsion Intravenous 960 mls @ 40 mls/hr IV .Q24H YESSICA Stop: 08/01/17 14:59 Last Admin: 06/04/17 17:31 Dose: 40 mls/hr Insulin Aspart (Novolog Insulin Sliding Scale) 0 units SUBQ Q6HR YESSICA PRN Reason: Protocol Stop: 07/14/17 00:00 Last Admin: 06/05/17 06:41 Dose: 2 units Isosorbide Dinitrate (Isordil) 20 mg GT TID [facility] Stop: 07/28/17 13:33 Last Admin: 06/04/17 21:13 Dose: 20 mg Lactobacillus Rhamnosus (Culturelle) 1 each PO DAILY [facility] Stop: 07/17/17 08:59 Last Admin: 06/05/17 08:40 Dose: 1 each Levetiracetam (Keppra) 250 mg NG BID YESSICA Stop: 07/14/17 08:59 Last Admin: 06/05/17 08:39 Dose: 250 mg Metoclopramide HCl (Reglan) 5 mg IVP TID [facility] Stop: 07/20/17 20:59 Last Admin: 06/05/17 08:40 Dose: 5 mg Metoprolol Tartrate (Lopressor) 50 mg GT Q8H [facility] Stop: 07/18/17 08:59 Last Admin: 06/05/17 08:40 Dose: 50 mg Miscellaneous (Vte Chemical Prophylaxis Screen/ Admission) 1 ea PRN PRN PRN Reason: PROTOCOL Stop: 07/14/17 09:25 Miscellaneous (Clinical Monitoring) 1 ea MC DAILY PRN PRN Reason: RENAL Stop: 07/15/17 12:32 Miscellaneous (Probiotic Screen) 1 ea PRN PRN PRN Reason: PROTOCOL Stop: 07/16/17 09:33 Miscellaneous (Tpn Per Pharmacy) 1 ea PRN PRN PRN Reason: PROTOCOL Stop: 07/24/17 15:59 Pantoprazole Sodium (Protonix) 40 mg GT DAILY [facility] Stop: 07/14/17 08:59 Last Admin: 06/05/17 08:40 Dose: 40 mg General: No acute distress, Other (open eyes but not interractive), no Alert HEENT: Atraumatic, EOMI (normal), Mucous membr. moist/pink Neck: Supple, +2 carotid pulse wo bruit Cardiovascular: Regular rate, Normal S1, Normal S2 Lungs: Other (occasional rhonchi) Abdomen: Soft, no Tender Extremities: no Edema (no edema) Neurological: Sensation intact, Other (lethargic) Skin: no Rash Psych/Mental Status: Mood NL - Procedures Procedures: Procedures Procedure Code Date INSERT EMERGENCY AIRWAY 96737 05/13/17 INSERT TUNNELED CV CATH [id number] 05/13/17 INSERTION OF ENDOTRACHEAL AIRWAY INTO TRACHEA, VIA OPENING [id number] 05/13/17 INSERTION OF INFUSION DEV INTO R FEMOR VEIN, PERC APPROACH [id number] 05/13/17 RESPIRATORY VENTILATION, GREATER THAN 96 CONSECUTIVE HOURS [id number] 05/13/17 VENT MGMT INPAT INIT DAY 66415 05/13/17 Assessment/Plan - Problem List Patient Problems: All Active Problems COUGH AND CONGESTION (Acute) Congestive heart failure (CHF) (Acute) I50.9 congestive heart failure (Acute) hypertension uncontrolled with bradycarda (Acute) renal failure (Acute) - Assessment Assessment: * DIC * RESPIRATORY FAILURE *ESRD *UNLIKELY HIT TRANSFUSE PRBCs. MONITOR DIC PANEL Nutritional Asmnt/Malnutr-PDOC - Dietary Evaluation Malnutrition Findings (Please click <Entered> for more info): Nutritional Asmnt/Malnutrition Start: 05/15/17 13: 56 Text: Status: Complete Freq: Document 05/15/17 13:56 GSUN (Rec: 05/15/17 14:18 GSUN [id number]) Nutritional Asmnt/Malnutrition Patient General Information Nutritional Screening High Risk Screening Diagnosis PNA, NICK, icnreasing renal failure, CVA, CHF, DM Pertinent Medical Hx/Surgical Hx CVA, dementia, afib, CAD, HTN, dyslipidemia, epilepsy, GERD, aspiration PNA, DM, CKD, dehydration, C. diff, anemia D Subjective Information 86 year old male from SNF. Pt greeted RD. Pt is overall thin , moderate to severe wasting to chest, clavicles, extremities. Observed Glytrol running at 60ml/hr x20hrs during visit. Unable to obtain CBW due to bedscale not calibrated. Discussed with YVETTE Farooq regarding tube feeding recommendations. Current Diet Order/ Nutrition Support Glytrol at 60ml/hr x 20hrs, providing 1200kcal 54g protein Pertinent Medications Lipitor, Novolog, Levemir, Cephulac, Morphine, Protonix, Nacl 0.9% Pertinent Labs 05/13: potassium 5.3H, BUN 80H, creatinine 2.4H, glucose 103 05/15: potassium WNL, BUN 70H, creatinine 2.4H, glucose 239H, A1c 6.1H, phosphorus 5.4H Nutritional Hx/Data Height 1.68 m Height (Calculated Centimeters) 167.6 Current Weight (lbs) 65.771 kg Weight (Calculated Kilograms) 65.8 Weight (Calculated Grams) 01163.9 [place] Body Weight 142 Weight Status Approriate GI Symptoms Difficult in: Swallowing Cultural/Ethnic/Sabianist Belief [facility]: Glucerna 1.2 at 85ml/hr x 20hrs, providing 2040kcal, promote weight gain. Skin Integrity/Comment: Gee 12. Skin intact. Estimated Nutritional Goals Calories/Kcals/Kg CBW 145lb/65.9kg Kcals Calculated 1976-7kcal (30-35kcal/kg) Protein Calculated 46-92g (0.7-1.4g/kg, renal vs moderate to severe wasting) Fluid: ml Per MD (renal) Nutritional Problem 2. Problem Problem Impaired nutrient utilization related to Etiology NICK, hx CKD aeb Signs/Symptoms: "increasing renal failure," potaasum 5.3H on adm, BUN 70H, color mixer 2.4H, phosphorus 5.4H 1. Problem Problem Inadequate intake from enteral nutrition infusion related to Etiology estimated nutritional needs aeb Signs/Symptoms: providing to meet 61% lower end kcal needs Intervention/Recommendation Comments 1. Recommend Novasource Renal at 50ml/hr x 20hrs, providing 2000kcal and 91g protein. Current order Glytrol at 60ml/ hr x 20hrs is only providing 1200kcal, pt recieves 2040kcal at [facility]. Expected Outcomes/Goals Expected Outcomes/Goals 1. Pt to meet at least 100% of estimated nutritional needs on tube feeding with tolerance .
--- NOTE | 2017-06-05 11:14 | Infectious Disease Prog Note ---
Infectious Disease Subjective - Review of Systems Service Date: 06/05/17 Subjective: No new change. No fever. intubated orally, on vent support. Infectious Disease Objective - Results Result Diagrams: 06/05/17 04:42 06/05/17 04:42 Recent Labs: Laboratory Last Values WBC 7.8 Th/cmm (4.8-10.8) 06/05/17 04:42 RBC 2.70 Mil/cmm (3.80-5.80) L 06/05/17 04:42 Hgb 7.5 gm/dL (12.6-17.4) L* D 06/05/17 04:42 Hct 22.1 % (39.0-49.0) L* D 06/05/17 04:42 MCV 81.9 fl (80-99) 06/05/17 04:42 MCH 27.8 pg (27.0-31.0) 06/05/17 04:42 MCHC Differential 33.9 pg (28.0-36.0) 06/05/17 04:42 RDW 16.5 % (11.5-20.0) 06/05/17 04:42 Plt Count 95 Th/cmm (150-400) L D 06/05/17 04:42 MPV 10.3 fl 06/05/17 04:42 Neutrophils % 72.7 % (40.0-80.0) 06/04/17 04:47 Band Neutrophils % 5 % (0-10) 06/05/17 04:42 Lymphocytes % 13.0 % (20.0-50.0) L 06/04/17 04:47 Monocytes % 13.5 % (2.0-10.0) H 06/04/17 04:47 Eosinophils % 0.6 % (0.0-5.0) 06/04/17 04:47 Basophils % 0.2 % (0.0-2.0) 06/04/17 04:47 Neutrophils (Manual) 73 % (40-80) 06/05/17 04:42 Lymphocytes 13 % (20-50) L 06/05/17 04:42 Monocytes 8 % (2-10) 06/05/17 04:42 Eosinophils 0 % (0-5) 05/24/17 04:49 Basophils 0 % (0-3) 05/24/17 04:49 Metamyelocytes 1 % (0-0) H 06/05/17 04:42 Toxic Granulation 1+ 05/23/17 04:48 Platelet Estimate DECREASED PLATELETS (NORMAL) 06/05/17 04:42 Platelet Morphology GIANT PLATELETS SEEN (NORMAL) 06/05/17 04:42 Poikilocytosis 1+ 06/05/17 04:42 Anisocytosis 1+ 06/05/17 04:42 Target Cells 2+ 06/05/17 04:42 RBC Morph Micro Appear ABNORMAL (NORMAL) 06/05/17 04:42 Eos Smear Source URINE 05/14/17 18:00 Eos Smear Total Cells FEW EOSINOPHILS SEEN (NONE SEEN) 05/14/17 18:00 Plt Count 121 Th/cmm (150-750) L 06/04/17 04:47 PT 12.7 SECONDS (9.5-11.5) H 06/05/17 04:42 INR 1.21 (0.5-1.4) 06/05/17 04:42 PTT (Actin FS) 43.2 SECONDS (26.0-38.0) H 06/05/17 04:42 Fibrinogen 136.0 mg/dL (200.0-400.0) L 06/05/17 04:42 D-Dimer 581 ng/mL (100-400) H 06/04/17 04:47 Specimen Source Arterial 06/04/17 09:14 Sample Site Right Radial 06/04/17 09:14 pH 7.42 (7.35-7.45) 06/04/17 09:14 pCO2 48.0 mmHg (35.0-45.0) H 06/04/17 09:14 pO2 62.0 mmHg (80.0-100.0) L 06/04/17 09:14 HCO3 29.2 mEq/L (20.0-26.0) H 06/04/17 09:14 Base Excess 5.6 mEq/L (-3.0-3.0) H 06/04/17 09:14 O2 Saturation 92.0 % (92.0-100.0) 06/04/17 09:14 Feliciano Test YES 06/04/17 09:14 Vent Rate 4 06/04/17 09:14 Inspired O2 30 06/04/17 09:14 Tidal Volume 500 06/04/17 09:14 PEEP 0 06/04/17 09:14 Pressure (ins/psv/peep) 18 06/04/17 09:14 Critical Value EALEXIS 06/04/17 09:14 Sodium 139 mEq/L (136-145) 06/05/17 04:42 Potassium 3.9 mEq/L (3.5-5.1) 06/05/17 04:42 Chloride 103 mEq/L (98-107) 06/05/17 04:42 Carbon Dioxide 28.5 mEq/L (21.0-31.0) 06/05/17 04:42 Anion Gap 11.4 (7.0-16.0) 06/05/17 04:42 BUN 62 mg/dL (7-25) H 06/05/17 04:42 Creatinine 2.9 mg/dL (0.7-1.3) H 06/05/17 04:42 Est GFR ( Amer) TNP 06/05/17 04:42 Est GFR (Non-Af Amer) TNP 06/05/17 04:42 BUN/Creatinine Ratio 21.4 06/05/17 04:42 Glucose 233 mg/dL (70-105) H 06/05/17 04:42 POC Glucose 222 MG/DL (70 - 105) H 06/05/17 00:22 Hemoglobin A1c % 6.1 % (4.0-6.0) H 05/15/17 06:30 Plasma/Ser Osmolality 301 mOsmol/kg (280-301) 05/14/17 18:20 Whole Bld Lactic Acid 1.58 mmol/L (0.60-1.99) 05/13/17 17:42 Uric Acid 7.7 mg/dL (4.4-7.6) H 05/15/17 06:30 Calcium 9.1 mg/dL (8.6-10.3) 06/05/17 04:42 Phosphorus 3.9 mg/dL (2.5-5.0) 06/05/17 04:42 Magnesium 2.1 mg/dL (1.9-2.7) 06/05/17 04:42 Iron 70 ug/dL (38-169) 06/04/17 04:47 TIBC 94 ug/dL (250-450) L 06/04/17 04:47 Iron Saturation 74 % (15-55) H 06/04/17 04:47 Unsaturated IBC 24 ug/dL (111-343) L 06/04/17 04:47 Ferritin 351 ng/mL (30-400) 06/03/17 04:48 Total Bilirubin 2.7 mg/dL (0.3-1.0) H 06/03/17 04:48 Direct Bilirubin 0.09 mg/dL (0.0-0.2) 05/19/17 04:50 AST 75 U/L (13-39) H 06/03/17 04:48 ALT 10 U/L (7-52) 06/03/17 04:48 Alkaline Phosphatase 657 U/L (34-104) H 06/03/17 04:48 Ammonia 65 umol/L (16-53) H 05/19/17 04:50 Creatine Kinase 35 U/L (30-223) 05/16/17 23:06 Troponin I 0.02 ng/mL (0.01-0.05) 05/16/17 23:06 B-Natriuretic Peptide 1480.0 pg/mL (5.0-100.0) H 06/05/17 04:42 Total Protein 5.7 gm/dL (6.0-8.3) L 06/03/17 04:48 Albumin 3.0 gm/dL (4.2-5.5) L 06/03/17 04:48 Globulin 2.7 gm/dL 06/03/17 04:48 Albumin/Globulin Ratio 1.1 (1.0-1.8) 06/03/17 04:48 Prealbumin 6 mg/dL (9-32) L 06/04/17 04:47 Triglycerides 60 mg/dL (<150) 06/04/17 04:47 Cholesterol 63 mg/dL (<200) 06/04/17 04:47 TSH 2.74 uIU/ml (0.34-5.60) 05/15/17 06:30 Urine Source CATH 05/13/17 19:50 Urine Color YELLOW 05/13/17 19:50 Urine Clarity CLOUDY (CLEAR) 05/13/17 19:50 Urine pH 6.0 05/13/17 19:50 Ur Specific [place] 1.015 (1.005-1.030) 05/13/17 19:50 Urine Protein 100 mg/dL (NEGATIVE) H 05/13/17 19:50 Urine Glucose (UA) NEGATIVE mg/dL (NEGATIVE) 05/13/17 19:50 Urine Ketones NEGATIVE mg/dL (NEGATIVE) 05/13/17 19:50 Urine Blood LARGE (NEGATIVE) H 05/13/17 19:50 Urine Nitrate NEGATIVE (NEGATIVE) 05/13/17 19:50 Urine Bilirubin NEGATIVE (NEGATIVE) 05/13/17 19:50 Urine Urobilinogen 0.2 E.U./dL (0.2 - 1.0) 05/13/17 19:50 Ur Leukocyte Esterase LARGE (NEGATIVE) H 05/13/17 19:50 Urine RBC 50-100 /hpf (0-5) H 05/13/17 19:50 Urine WBC >100 /hpf (0-5) H 05/13/17 19:50 Ur Epithelial Cells NONE SEEN /lpf (FEW) 05/13/17 19:50 Urine Bacteria NONE SEEN /hpf (NONE SEEN) 05/13/17 19:50 Ur Random Sodium 30 mmol/L 05/14/17 18:00 Urine Creatinine 36.4 mg/dl (Not Estab.) 05/14/17 18:00 Urine Microalbumin 363.5 ug/mL (Not Estab.) 05/14/17 18:00 Microalb/Creat Ratio 998.6 mg/g creat (0.0-30.0) H 05/14/17 18:00 Stool Occult Blood NEGATIVE (NEGATIVE) 05/25/17 17:49 Random Vancomycin 19.1 ug/mL (5.0-40.0) 05/19/17 04:50 Hepatitis A IgM Ab Negative (Negative) 05/21/17 04:46 Hep Bs Antigen Negative (Negative) 05/21/17 04:46 Hep B Core IgM Ab Negative (Negative) 05/21/17 04:46 Hepatitis C Antibody 0.1 s/co ratio (0.0-0.9) 05/21/17 04:46 Blood Type B POSITIVE 06/04/17 04:47 Antibody Screen NEGATIVE 06/04/17 04:47 Crossmatch See Detail 05/21/17 10:19 - Physical Exam Vitals and I&O: Vital Signs Temp 99.7 F 06/05/17 04:00 Pulse 93 06/05/17 09:25 Resp 30 06/05/17 07:00 BP 138/65 06/05/17 08:40 Pulse Ox 99 06/05/17 09:25 Intake & Output 06/04/17 06/05/17 06/05/17 18:59 06:59 18:59 Intake Total 2035.333 720 Output Total 350 300 Balance 1685.333 420 Weight (lbs) 65.363 kg 65.363 kg Intake: Intake, IV Amount 945.333 Multivitamin Inj 10 ml In 945.333 Dextrose 70% 250 ml In Amino Acids 10% 500 ml In Intralipids 20% 200 ml @ 40 mls/hr IV .Q24H [facility] Rx#:[id number] Oral 0 Tube Feeding 60 220 TPN/PPN 480 Blood Product 300 300 Other 250 200 Output: Urine 350 300 Other: # Bowel Movements 2 3 Stool Characteristics Soft Soft Soft Liquid Liquid Liquid Active Medications: Current Medications Acetaminophen (Tylenol) 650 mg PO Q4HR PRN PRN Reason: Pain Or Fever above 101 Stop: 07/14/17 15:15 Last Admin: 05/23/17 15:07 Dose: 650 mg Albuterol/Ipratropium (Duoneb Neb) 3 ml HHN Q4HRT [facility] Stop: 07/19/17 14:59 Last Admin: 06/05/17 07:24 Dose: 3 ml Atorvastatin Calcium (Lipitor) 10 mg GT HS YESSICA PRN Reason: Protocol Stop: 07/14/17 20:59 Last Admin: 06/04/17 21:13 Dose: 10 mg Budesonide (Pulmicort) 1 mg HHN BIDRT [facility] Stop: 07/19/17 18:59 Last Admin: 06/05/17 07:24 Dose: 1 mg Calamine/Phenol (Calmoseptine) 1 appl TP QID PRN PRN Reason: Skin Irritation Stop: 08/03/17 12:28 Calamine/Phenol (Calmoseptine) 1 appl TP QID [facility] Stop: 08/03/17 12:59 Last Admin: 06/05/17 08:41 Dose: 1 appl Carbidopa/Levodopa (Sinemet 25mg-100 Mg) 1 tab PO TID [facility] Stop: 07/14/17 08:59 Last Admin: 06/05/17 08:40 Dose: 1 tab Chlorhexidine Gluconate (Peridex) 15 ml MM 0800,1999 [facility] Stop: 07/23/17 19:59 Last Admin: 06/05/17 08:41 Dose: 15 ml Clonidine HCl (Catapres) 0.1 mg PO Q6HR PRN PRN Reason: BP MAINTENANCE (PER PROTOCOL) Stop: 07/28/17 13:31 Last Admin: 05/29/17 21:04 Dose: 0.1 mg Colistimethate Sodium (Colistin) 75 mg HHN BIDRT YESSICA Stop: 07/30/17 18:59 Last Admin: 06/05/17 07:24 Dose: 75 mg Dextrose (D50w) 50 ml IVP PRN PRN; Protocol PRN Reason: HYPOGLYCEMIA Stop: 07/20/17 00:54 Last Admin: 05/22/17 23:34 Dose: 50 ml Diltiazem HCl (Cardizem) 10 mg IVP Q6HR PRN PRN Reason: HR >130 Stop: 07/22/17 17:09 Last Admin: 05/24/17 04:21 Dose: 10 mg Furosemide (Lasix) 40 mg IVP DAILY [facility] Stop: 07/18/17 08:59 Last Admin: 06/05/17 08:39 Dose: 40 mg Hydralazine HCl (Apresoline 20 Mg/Ml) 10 mg IV Q6HR PRN PRN Reason: BP MAINTENANCE (PER PROTOCOL) Stop: 07/30/17 13:09 Last Admin: 06/01/17 08:09 Dose: 10 mg Norepinephrine Bitartrate 8 mg (/ Dextrose) 258 mls @ 0 mls/hr IV TITR PRN; Protocol; Titrate PRN Reason: BP MAINTENANCE (PER PROTOCOL) Stop: 07/19/17 12:29 Last Admin: 05/21/17 01:06 Dose: 10 mcg/min, 19.35 mls/hr Phenylephrine HCl 10 mg/ (Sodium Chloride) 250 mls @ 0 mls/hr IV TITR YESSICA; Per Protocol PRN Reason: Protocol Stop: 07/19/17 12:59 Multivitamins/Minerals 10 ml/Dextrose/ Amino Acids/Electrolytes/ Fat Emulsion Intravenous 960 mls @ 40 mls/hr IV .Q24H [facility] Stop: 08/01/17 14:59 Last Admin: 06/04/17 17:31 Dose: 40 mls/hr Insulin Aspart (Novolog Insulin Sliding Scale) 0 units SUBQ Q6HR YESSICA PRN Reason: Protocol Stop: 07/14/17 00:00 Last Admin: 06/05/17 06:41 Dose: 2 units Isosorbide Dinitrate (Isordil) 20 mg GT TID [facility] Stop: 07/28/17 13:33 Last Admin: 06/04/17 21:13 Dose: 20 mg Lactobacillus Rhamnosus (Culturelle) 1 each PO DAILY YESSICA Stop: 07/17/17 08:59 Last Admin: 06/05/17 08:40 Dose: 1 each Levetiracetam (Keppra) 250 mg NG BID [facility] Stop: 07/14/17 08:59 Last Admin: 06/05/17 08:39 Dose: 250 mg Metoclopramide HCl (Reglan) 5 mg IVP TID [facility] Stop: 07/20/17 20:59 Last Admin: 06/05/17 08:40 Dose: 5 mg Metoprolol Tartrate (Lopressor) 50 mg GT Q8H [facility] Stop: 07/18/17 08:59 Last Admin: 06/05/17 08:40 Dose: 50 mg Miscellaneous (Vte Chemical Prophylaxis Screen/ Admission) 1 ea PRN PRN PRN Reason: PROTOCOL Stop: 07/14/17 09:25 Miscellaneous (Clinical Monitoring) 1 ea MC DAILY PRN PRN Reason: RENAL Stop: 07/15/17 12:32 Miscellaneous (Probiotic Screen) 1 ea PRN PRN PRN Reason: PROTOCOL Stop: 07/16/17 09:33 Miscellaneous (Tpn Per Pharmacy) 1 ea PRN PRN PRN Reason: PROTOCOL Stop: 07/24/17 15:59 Pantoprazole Sodium (Protonix) 40 mg GT DAILY [facility] Stop: 07/14/17 08:59 Last Admin: 06/05/17 08:40 Dose: 40 mg General: no acute distress, cachectic HEENT: atraumatic, normocephalic, PERRLA, EOMI Neck: supple, no thyromegaly Cardiovascular: S1S2, regular Lungs: clear to percussion, crackles Abdomen: soft, no tender, no distended Extremities: no cyanosis, no clubbing, no edema Skin: other (decubitus stage 3) - Procedures Procedures: Procedures Procedure Code Date INSERT EMERGENCY AIRWAY 12470 05/13/17 INSERT TUNNELED CV CATH 69030 05/13/17 INSERTION OF ENDOTRACHEAL AIRWAY INTO TRACHEA, VIA OPENING [id number] 05/13/17 INSERTION OF INFUSION DEV INTO R FEMOR VEIN, PERC APPROACH [id number] 05/13/17 RESPIRATORY VENTILATION, GREATER THAN 96 CONSECUTIVE HOURS [id number] 05/13/17 VENT MGMT INPAT INIT DAY 53076 05/13/17 Infectious Disease Assmt/Plan - Problem List Patient Problems: All Active Problems COUGH AND CONGESTION (Acute) Congestive heart failure (CHF) (Acute) I50.9 congestive heart failure (Acute) hypertension uncontrolled with bradycarda (Acute) renal failure (Acute) - Assessment Assessment: 1. Pneuimonia.? Aspiration. 2. NICK. 3. CVA. 4. CHF. 5. CKD4. NICK mild rise in creatinine. 6. Afib with rapid ventricular response. Plan: Continue colistin nebulizer. Nutritional Asmnt/Malnutr-PDOC - Dietary Evaluation Malnutrition Findings (Please click <Entered> for more info): Nutritional Asmnt/Malnutrition Start: 05/15/17 13: 56 Text: Status: Complete Freq: Document 05/15/17 13:56 GSUN (Rec: 05/15/17 14:18 GSUN [email or web address]) Nutritional Asmnt/Malnutrition Patient General Information Nutritional Screening High Risk Screening Diagnosis PNA, NICK, icnreasing renal failure, CVA, CHF, DM Pertinent Medical Hx/Surgical Hx CVA, dementia, afib, CAD, HTN, dyslipidemia, epilepsy, GERD, aspiration PNA, DM, CKD, dehydration, C. diff, anemia D Subjective Information 86 year old male from SNF. Pt greeted RD. Pt is overall thin , moderate to severe wasting to chest, clavicles, extremities. Observed Glytrol running at 60ml/hr x20hrs during visit. Unable to obtain CBW due to bedscale not calibrated. Discussed with YVETTE Farooq regarding tube feeding recommendations. Current Diet Order/ Nutrition Support Glytrol at 60ml/hr x 20hrs, providing 1200kcal 54g protein Pertinent Medications Lipitor, Novolog, Levemir, Cephulac, Morphine, Protonix, Nacl 0.9% Pertinent Labs 05/13: potassium 5.3H, BUN 80H, creatinine 2.4H, glucose 103 05/15: potassium WNL, BUN 70H, creatinine 2.4H, glucose 239H, A1c 6.1H, phosphorus 5.4H Nutritional Hx/Data Height 1.68 m Height (Calculated Centimeters) 167.6 Current Weight (lbs) 65.771 kg Weight (Calculated Kilograms) 65.8 Weight (Calculated Grams) 39313.9 [place] Body Weight 142 Weight Status Approriate GI Symptoms Difficult in: Swallowing Cultural/Ethnic/T[employer]ist Belief [facility]: Glucerna 1.2 at 85ml/hr x 20hrs, providing 2040kcal, promote weight gain. Skin Integrity/Comment: Gee 12. Skin intact. Estimated Nutritional Goals Calories/Kcals/Kg CBW 145lb/65.9kg Kcals Calculated 1976-2307kcal (30-35kcal/kg) Protein Calculated 46-92g (0.7-1.4g/kg, renal vs moderate to severe wasting) Fluid: ml Per MD (renal) Nutritional Problem 2. 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 Problem Problem Inadequate intake from enteral nutrition infusion related to Etiology estimated nutritional needs aeb Signs/Symptoms: providing to meet 61% lower end kcal needs Intervention/Recommendation Comments 1. Recommend Novasource Renal at 50ml/hr x 20hrs, providing 2000kcal and 91g protein. Current order Glytrol at 60ml/ hr x 20hrs is only providing 1200kcal, pt recieves 2040kcal at [facility]. Expected Outcomes/Goals Expected Outcomes/Goals 1. Pt to meet at least 100% of estimated nutritional needs on tube feeding with tolerance .
--- NOTE | 2017-06-05 13:12 | General Progress Note ---
Subjective - Review of Systems Service Date: 06/05/17 Subjective: awake, on vent, nonverbal Objective - Results Result Diagrams: 06/05/17 04:42 06/05/17 04:42 Recent Labs: Laboratory Last Values WBC 7.8 Th/cmm (4.8-10.8) 06/05/17 04:42 RBC 2.70 Mil/cmm (3.80-5.80) L 06/05/17 04:42 Hgb 7.5 gm/dL (12.6-17.4) L* D 06/05/17 04:42 Hct 22.1 % (39.0-49.0) L* D 06/05/17 04:42 MCV 81.9 fl (80-99) 06/05/17 04:42 MCH 27.8 pg (27.0-31.0) 06/05/17 04:42 MCHC Differential 33.9 pg (28.0-36.0) 06/05/17 04:42 RDW 16.5 % (11.5-20.0) 06/05/17 04:42 Plt Count 95 Th/cmm (150-400) L D 06/05/17 04:42 MPV 10.3 fl 06/05/17 04:42 Neutrophils % 72.7 % (40.0-80.0) 06/04/17 04:47 Band Neutrophils % 5 % (0-10) 06/05/17 04:42 Lymphocytes % 13.0 % (20.0-50.0) L 06/04/17 04:47 Monocytes % 13.5 % (2.0-10.0) H 06/04/17 04:47 Eosinophils % 0.6 % (0.0-5.0) 06/04/17 04:47 Basophils % 0.2 % (0.0-2.0) 06/04/17 04:47 Neutrophils (Manual) 73 % (40-80) 06/05/17 04:42 Lymphocytes 13 % (20-50) L 06/05/17 04:42 Monocytes 8 % (2-10) 06/05/17 04:42 Eosinophils 0 % (0-5) 05/24/17 04:49 Basophils 0 % (0-3) 05/24/17 04:49 Metamyelocytes 1 % (0-0) H 06/05/17 04:42 Toxic Granulation 1+ 05/23/17 04:48 Platelet Estimate DECREASED PLATELETS (NORMAL) 06/05/17 04:42 Platelet Morphology GIANT PLATELETS SEEN (NORMAL) 06/05/17 04:42 Poikilocytosis 1+ 06/05/17 04:42 Anisocytosis 1+ 06/05/17 04:42 Target Cells 2+ 06/05/17 04:42 RBC Morph Micro Appear ABNORMAL (NORMAL) 06/05/17 04:42 Eos Smear Source URINE 05/14/17 18:00 Eos Smear Total Cells FEW EOSINOPHILS SEEN (NONE SEEN) 05/14/17 18:00 Plt Count 121 Th/cmm (150-750) L 06/04/17 04:47 PT 12.7 SECONDS (9.5-11.5) H 06/05/17 04:42 INR 1.21 (0.5-1.4) 06/05/17 04:42 PTT (Actin FS) 43.2 SECONDS (26.0-38.0) H 06/05/17 04:42 Fibrinogen 136.0 mg/dL (200.0-400.0) L 06/05/17 04:42 D-Dimer 581 ng/mL (100-400) H 06/04/17 04:47 Specimen Source Arterial 06/04/17 09:14 Sample Site Right Radial 06/04/17 09:14 pH 7.42 (7.35-7.45) 06/04/17 09:14 pCO2 48.0 mmHg (35.0-45.0) H 06/04/17 09:14 pO2 62.0 mmHg (80.0-100.0) L 06/04/17 09:14 HCO3 29.2 mEq/L (20.0-26.0) H 06/04/17 09:14 Base Excess 5.6 mEq/L (-3.0-3.0) H 06/04/17 09:14 O2 Saturation 92.0 % (92.0-100.0) 06/04/17 09:14 Feliciano Test YES 06/04/17 09:14 Vent Rate 4 06/04/17 09:14 Inspired O2 30 06/04/17 09:14 Tidal Volume 500 06/04/17 09:14 PEEP 0 06/04/17 09:14 Pressure (ins/psv/peep) 18 06/04/17 09:14 Critical Value LUPILLOO 06/04/17 09:14 Sodium 139 mEq/L (136-145) 06/05/17 04:42 Potassium 3.9 mEq/L (3.5-5.1) 06/05/17 04:42 Chloride 103 mEq/L (98-107) 06/05/17 04:42 Carbon Dioxide 28.5 mEq/L (21.0-31.0) 06/05/17 04:42 Anion Gap 11.4 (7.0-16.0) 06/05/17 04:42 BUN 62 mg/dL (7-25) H 06/05/17 04:42 Creatinine 2.9 mg/dL (0.7-1.3) H 06/05/17 04:42 Est GFR ( Amer) TNP 06/05/17 04:42 Est GFR (Non-Af Amer) TNP 06/05/17 04:42 BUN/Creatinine Ratio 21.4 06/05/17 04:42 Glucose 233 mg/dL (70-105) H 06/05/17 04:42 POC Glucose 280 MG/DL (70 - 105) H 06/05/17 12:19 Hemoglobin A1c % 6.1 % (4.0-6.0) H 05/15/17 06:30 Plasma/Ser Osmolality 301 mOsmol/kg (280-301) 05/14/17 18:20 Whole Bld Lactic Acid 1.58 mmol/L (0.60-1.99) 05/13/17 17:42 Uric Acid 7.7 mg/dL (4.4-7.6) H 05/15/17 06:30 Calcium 9.1 mg/dL (8.6-10.3) 06/05/17 04:42 Phosphorus 3.9 mg/dL (2.5-5.0) 06/05/17 04:42 Magnesium 2.1 mg/dL (1.9-2.7) 06/05/17 04:42 Iron 70 ug/dL (38-169) 06/04/17 04:47 TIBC 94 ug/dL (250-450) L 06/04/17 04:47 Iron Saturation 74 % (15-55) H 06/04/17 04:47 Unsaturated IBC 24 ug/dL (111-343) L 06/04/17 04:47 Ferritin 351 ng/mL (30-400) 06/03/17 04:48 Total Bilirubin 2.7 mg/dL (0.3-1.0) H 06/03/17 04:48 Direct Bilirubin 0.09 mg/dL (0.0-0.2) 05/19/17 04:50 AST 75 U/L (13-39) H 06/03/17 04:48 ALT 10 U/L (7-52) 06/03/17 04:48 Alkaline Phosphatase 657 U/L (34-104) H 06/03/17 04:48 Ammonia 65 umol/L (16-53) H 05/19/17 04:50 Creatine Kinase 35 U/L (30-223) 05/16/17 23:06 Troponin I 0.02 ng/mL (0.01-0.05) 05/16/17 23:06 B-Natriuretic Peptide 1480.0 pg/mL (5.0-100.0) H 06/05/17 04:42 Total Protein 5.7 gm/dL (6.0-8.3) L 06/03/17 04:48 Albumin 3.0 gm/dL (4.2-5.5) L 06/03/17 04:48 Globulin 2.7 gm/dL 06/03/17 04:48 Albumin/Globulin Ratio 1.1 (1.0-1.8) 06/03/17 04:48 Prealbumin 6 mg/dL (9-32) L 06/04/17 04:47 Triglycerides 60 mg/dL (<150) 06/04/17 04:47 Cholesterol 63 mg/dL (<200) 06/04/17 04:47 TSH 2.74 uIU/ml (0.34-5.60) 05/15/17 06:30 Urine Source CATH 05/13/17 19:50 Urine Color YELLOW 05/13/17 19:50 Urine Clarity CLOUDY (CLEAR) 05/13/17 19:50 Urine pH 6.0 05/13/17 19:50 Ur Specific [place] 1.015 (1.005-1.030) 05/13/17 19:50 Urine Protein 100 mg/dL (NEGATIVE) H 05/13/17 19:50 Urine Glucose (UA) NEGATIVE mg/dL (NEGATIVE) 05/13/17 19:50 Urine Ketones NEGATIVE mg/dL (NEGATIVE) 05/13/17 19:50 Urine Blood LARGE (NEGATIVE) H 05/13/17 19:50 Urine Nitrate NEGATIVE (NEGATIVE) 05/13/17 19:50 Urine Bilirubin NEGATIVE (NEGATIVE) 05/13/17 19:50 Urine Urobilinogen 0.2 E.U./dL (0.2 - 1.0) 05/13/17 19:50 Ur Leukocyte Esterase LARGE (NEGATIVE) H 05/13/17 19:50 Urine RBC 50-100 /hpf (0-5) H 05/13/17 19:50 Urine WBC >100 /hpf (0-5) H 05/13/17 19:50 Ur Epithelial Cells NONE SEEN /lpf (FEW) 05/13/17 19:50 Urine Bacteria NONE SEEN /hpf (NONE SEEN) 05/13/17 19:50 Ur Random Sodium 30 mmol/L 05/14/17 18:00 Urine Creatinine 36.4 mg/dl (Not Estab.) 05/14/17 18:00 Urine Microalbumin 363.5 ug/mL (Not Estab.) 05/14/17 18:00 Microalb/Creat Ratio 998.6 mg/g creat (0.0-30.0) H 05/14/17 18:00 Stool Occult Blood NEGATIVE (NEGATIVE) 05/25/17 17:49 Random Vancomycin 19.1 ug/mL (5.0-40.0) 05/19/17 04:50 Hepatitis A IgM Ab Negative (Negative) 05/21/17 04:46 Hep Bs Antigen Negative (Negative) 05/21/17 04:46 Hep B Core IgM Ab Negative (Negative) 05/21/17 04:46 Hepatitis C Antibody 0.1 s/co ratio (0.0-0.9) 05/21/17 04:46 Blood Type B POSITIVE 06/04/17 04:47 Antibody Screen NEGATIVE 06/04/17 04:47 Crossmatch See Detail 05/21/17 10:19 - Physical Exam Vitals and I&O: Vital Signs Temp 98.3 F 06/05/17 11:00 Pulse 88 06/05/17 11:50 Resp 24 06/05/17 11:00 BP 131/68 06/05/17 11:00 Pulse Ox 99 06/05/17 11:50 Intake & Output 06/04/17 06/05/17 06/05/17 18:59 06:59 18:59 Intake Total 2035.333 720 Output Total 350 300 Balance 1685.333 420 Weight (lbs) 65.363 kg 65.363 kg Intake: Intake, IV Amount 945.333 Multivitamin Inj 10 ml In 945.333 Dextrose 70% 250 ml In Amino Acids 10% 500 ml In Intralipids 20% 200 ml @ 40 mls/hr IV .Q24H [facility] Rx#:[id number] Oral 0 Tube Feeding 60 220 TPN/PPN 480 Blood Product 300 300 Other 250 200 Output: Urine 350 300 Other: # Bowel Movements 2 3 Stool Characteristics Soft Soft Soft Liquid Liquid Liquid Active Medications: Current Medications Acetaminophen (Tylenol) 650 mg PO Q4HR PRN PRN Reason: Pain Or Fever above 101 Stop: 07/14/17 15:15 Last Admin: 05/23/17 15:07 Dose: 650 mg Albuterol/Ipratropium (Duoneb Neb) 3 ml HHN Q4HRT [facility] Stop: 07/19/17 14:59 Last Admin: 06/05/17 11:49 Dose: 3 ml Atorvastatin Calcium (Lipitor) 10 mg GT HS YESSICA PRN Reason: Protocol Stop: 07/14/17 20:59 Last Admin: 06/04/17 21:13 Dose: 10 mg Budesonide (Pulmicort) 1 mg HHN BIDRT [facility] Stop: 07/19/17 18:59 Last Admin: 06/05/17 07:24 Dose: 1 mg Calamine/Phenol (Calmoseptine) 1 appl TP QID PRN PRN Reason: Skin Irritation Stop: 08/03/17 12:28 Calamine/Phenol (Calmoseptine) 1 appl TP QID [facility] Stop: 08/03/17 12:59 Last Admin: 06/05/17 08:41 Dose: 1 appl Carbidopa/Levodopa (Sinemet 25mg-100 Mg) 1 tab PO TID [facility] Stop: 07/14/17 08:59 Last Admin: 06/05/17 08:40 Dose: 1 tab Chlorhexidine Gluconate (Peridex) 15 ml MM 08,1999 [facility] Stop: 07/23/17 19:59 Last Admin: 06/05/17 08:41 Dose: 15 ml Clonidine HCl (Catapres) 0.1 mg PO Q6HR PRN PRN Reason: BP MAINTENANCE (PER PROTOCOL) Stop: 07/28/17 13:31 Last Admin: 05/29/17 21:04 Dose: 0.1 mg Colistimethate Sodium (Colistin) 75 mg HHN BIDRT YESSICA Stop: 07/30/17 18:59 Last Admin: 06/05/17 07:24 Dose: 75 mg Dextrose (D50w) 50 ml IVP PRN PRN; Protocol PRN Reason: HYPOGLYCEMIA Stop: 07/20/17 00:54 Last Admin: 05/22/17 23:34 Dose: 50 ml Diltiazem HCl (Cardizem) 10 mg IVP Q6HR PRN PRN Reason: HR >130 Stop: 07/22/17 17:09 Last Admin: 05/24/17 04:21 Dose: 10 mg Furosemide (Lasix) 40 mg IVP DAILY YESSICA Stop: 07/18/17 08:59 Last Admin: 06/05/17 08:39 Dose: 40 mg Hydralazine HCl (Apresoline 20 Mg/Ml) 10 mg IV Q6HR PRN PRN Reason: BP MAINTENANCE (PER PROTOCOL) Stop: 07/30/17 13:09 Last Admin: 06/01/17 08:09 Dose: 10 mg Norepinephrine Bitartrate 8 mg (/ Dextrose) 258 mls @ 0 mls/hr IV TITR PRN; Protocol; Titrate PRN Reason: BP MAINTENANCE (PER PROTOCOL) Stop: 07/19/17 12:29 Last Admin: 05/21/17 01:06 Dose: 10 mcg/min, 19.35 mls/hr Phenylephrine HCl 10 mg/ (Sodium Chloride) 250 mls @ 0 mls/hr IV TITR YESSICA; Per Protocol PRN Reason: Protocol Stop: 07/19/17 12:59 Multivitamins/Minerals 10 ml/Dextrose/ Amino Acids/Electrolytes/ Fat Emulsion Intravenous 960 mls @ 40 mls/hr IV .Q24H YESSICA Stop: 08/01/17 14:59 Last Admin: 06/04/17 17:31 Dose: 40 mls/hr Insulin Aspart (Novolog Insulin Sliding Scale) 0 units SUBQ Q6HR YESSICA PRN Reason: Protocol Stop: 07/14/17 00:00 Last Admin: 06/05/17 12:20 Dose: 3 units Isosorbide Dinitrate (Isordil) 20 mg GT TID [facility] Stop: 07/28/17 13:33 Last Admin: 06/05/17 09:55 Dose: 20 mg Lactobacillus Rhamnosus (Culturelle) 1 each PO DAILY [facility] Stop: 07/17/17 08:59 Last Admin: 06/05/17 08:40 Dose: 1 each Levetiracetam (Keppra) 250 mg NG BID YESSICA Stop: 07/14/17 08:59 Last Admin: 06/05/17 08:39 Dose: 250 mg Metoclopramide HCl (Reglan) 5 mg IVP TID [facility] Stop: 07/20/17 20:59 Last Admin: 06/05/17 08:40 Dose: 5 mg Metoprolol Tartrate (Lopressor) 50 mg GT Q8H [facility] Stop: 07/18/17 08:59 Last Admin: 06/05/17 08:40 Dose: 50 mg Miscellaneous (Vte Chemical Prophylaxis Screen/ Admission) 1 ea PRN PRN PRN Reason: PROTOCOL Stop: 07/14/17 09:25 Miscellaneous (Clinical Monitoring) 1 ea MC DAILY PRN PRN Reason: RENAL Stop: 07/15/17 12:32 Miscellaneous (Probiotic Screen) 1 ea PRN PRN PRN Reason: PROTOCOL Stop: 07/16/17 09:33 Miscellaneous (Tpn Per Pharmacy) 1 ea PRN PRN PRN Reason: PROTOCOL Stop: 07/24/17 15:59 Pantoprazole Sodium (Protonix) 40 mg GT DAILY [facility] Stop: 07/14/17 08:59 Last Admin: 06/05/17 08:40 Dose: 40 mg General: No acute distress, Other (open eyes but not interractive), no Alert HEENT: Atraumatic, EOMI (normal), Mucous membr. moist/pink Neck: Supple, +2 carotid pulse wo bruit Cardiovascular: Regular rate, Normal S1, Normal S2 Lungs: Other (occasional rhonchi) Abdomen: Soft, no Tender Extremities: no Edema (no edema) Neurological: Sensation intact, Other (lethargic) Skin: no Rash Psych/Mental Status: Mood NL - Procedures Procedures: Procedures Procedure Code Date INSERT EMERGENCY AIRWAY 76261 05/13/17 INSERT TUNNELED CV CATH 99325 05/13/17 INSERTION OF ENDOTRACHEAL AIRWAY INTO TRACHEA, VIA OPENING [id number] 05/13/17 INSERTION OF INFUSION DEV INTO R FEMOR VEIN, PERC APPROACH [id number] 05/13/17 RESPIRATORY VENTILATION, GREATER THAN 96 CONSECUTIVE HOURS [id number] 05/13/17 VENT MGMT INPAT INIT DAY 20936 05/13/17 Assessment/Plan - Problem List Patient Problems: All Active Problems COUGH AND CONGESTION (Acute) Congestive heart failure (CHF) (Acute) I50.9 congestive heart failure (Acute) hypertension uncontrolled with bradycarda (Acute) renal failure (Acute) - Assessment Assessment: NICK on CKD, now on dialysis A LOC secondary to metabolic encephalopathy/medications Dehydration Essential hypertension with CKD COPD Chronic atrial fibrillation Status post CVA Aspiration pneumonia/dysphagia status post PEG Type 2 diabetes mellitus with CKD Acute Decompensated CHF Acute Resp Failure on Vent - Plan Plan: Lab - Result Diagrams 05/15/17 06:30 05/15/17 06:30 Current Medications Acetaminophen (Tylenol) 650 mg PO Q4HR PRN PRN Reason: Pain Or Fever above 101 Stop: 07/14/17 15:15 Last Admin: 05/15/17 16:21 Dose: 650 mg Albuterol Sulfate (Albuterol 2.5mg/3ml Neb Ud) 2.5 mg HHN Q6HRT YESSICA Stop: 07/14/17 00:59 Last Admin: 05/15/17 16:05 Dose: 2.5 mg Atorvastatin Calcium (Lipitor) 10 mg GT HS YESSICA PRN Reason: Protocol Stop: 07/14/17 20:59 Carbidopa/Levodopa (Sinemet 25mg-100 Mg) 1 tab PO TID YESSICA Stop: 07/14/17 08:59 Last Admin: 05/15/17 14:02 Dose: 1 tab Heparin Sodium (Porcine) (Heparin) 5,000 units SUBQ Q8H YESSICA Stop: 07/14/17 14:59 Last Admin: 05/15/17 16:24 Dose: 5,000 units Sodium Chloride (Nacl 0.9%) 1,000 mls @ 60 mls/hr IV .[id number] YESSICA Stop: 07/13/17 06:40 Last Admin: 05/14/17 17:16 Dose: 60 mls/hr Azithromycin 250 mg/ Sodium (Chloride) 250 mls @ 250 mls/hr IV Q24HR [facility] Stop: 05/20/17 08:59 Piperacillin Sod/Tazobactam (Sod 3.375 gm/ Sodium Chloride) 50 mls @ 100 mls/ hr IV Q8HR [facility] Stop: 07/14/17 15:14 Last Admin: 05/15/17 15:57 Dose: 100 mls/hr Insulin Aspart (Novolog Insulin Sliding Scale) 0 units SUBQ Q6HR YESSICA PRN Reason: Protocol Stop: 07/14/17 00:00 Last Admin: 05/15/17 17:09 Dose: Not Given Insulin Detemir (Levemir Insulin) 14 units SUBQ DAILY [facility] PRN Reason: Protocol Stop: 07/15/17 08:59 Isosorbide Dinitrate (Isordil) 10 mg GT TID [facility] Stop: 07/14/17 08:59 Last Admin: 05/15/17 14:02 Dose: 10 mg Lactulose (Cephulac) 20 gm PO TID [facility] Stop: 07/14/17 08:59 Last Admin: 05/15/17 14:02 Dose: 20 gm Levetiracetam (Keppra) 250 mg NG BID [facility] Stop: 07/14/17 08:59 Last Admin: 05/15/17 16:23 Dose: 250 mg Metoprolol Tartrate (Lopressor) 37.5 mg GT BID [facility] Stop: 07/14/17 00:14 Last Admin: 05/15/17 16:22 Dose: 37.5 mg Miscellaneous (Vte Chemical Prophylaxis Screen/ Admission) 1 ea MC PRN PRN PRN Reason: PROTOCOL Stop: 07/14/17 09:25 Morphine Sulfate (Morphine) 2 mg IVP Q3H PRN PRN Reason: PAIN Stop: 07/13/17 19:46 Last Admin: 05/14/17 21:16 Dose: 2 mg Mupirocin (Bactroban Oint) 1 appl TP BID [facility] Stop: 07/14/17 16:59 Last Admin: 05/15/17 16:24 Dose: 1 appl Pantoprazole Sodium (Protonix) 40 mg GT DAILY [facility] Stop: 07/14/17 08:59 Last Admin: 05/15/17 08:36 Dose: 40 mg Rifaximin (Xifaxan) 550 mg GT BID [facility] Stop: 07/14/17 08:59 Last Admin: 05/15/17 16:23 Dose: 550 mg Latest BUN/CR were 62/2.9 White count down to 7.8 on Zosyn Chest x-ray still w/ b/l infiltrates, effusions, no significant change Reviewed his meds Follow-up electrolytes currently on PPN @ 40 ml /hr, gradually taper down & increase nephro for more calories prognosis poor Hgb/Hct down to 7.5/22.1, for transfusion today scheduled for HD tomorrow Follow-up electrolytes, CBC and chest x-ray in a.m. urine nadine 650ml BNP still elevated @ 1480 Lab - Result Diagrams 05/24/17 04:49 05/24/17 04:49 addendum: Poor response to diuretics, w/ worsening CHF, BNP level developed resp failure, required intubation worsening cardio-renal syndrome discussed w/ grandson Pedro, about poor prognosis but still want to proceed w/ dialysis Nutritional Asmnt/Malnutr-PDOC - Dietary Evaluation Malnutrition Findings (Please click <Entered> for more info): Nutritional Asmnt/Malnutrition Start: 05/15/17 13: 56 Text: Status: Complete Freq: Document 05/15/17 13:56 GSUN (Rec: 05/15/17 14:18 GSTHALIA [email or web address]) Nutritional Asmnt/Malnutrition Patient General Information Nutritional Screening High Risk Screening Diagnosis PNA, NICK, icnreasing renal failure, CVA, CHF, DM Pertinent Medical Hx/Surgical Hx CVA, dementia, afib, CAD, HTN, dyslipidemia, epilepsy, GERD, aspiration PNA, DM, CKD, dehydration, C. diff, anemia D Subjective Information 86 year old male from SNF. Pt greeted RD. Pt is overall thin , moderate to severe wasting to chest, clavicles, extremities. Observed Glytrol running at 60ml/hr x20hrs during visit. Unable to obtain CBW due to bedscale not calibrated. Discussed with YVETTE Farooq regarding tube feeding recommendations. Current Diet Order/ Nutrition Support Glytrol at 60ml/hr x 20hrs, providing 1200kcal 54g protein Pertinent Medications Lipitor, Novolog, Levemir, Cephulac, Morphine, Protonix, Nacl 0.9% Pertinent Labs 05/13: potassium 5.3H, BUN 80H, creatinine 2.4H, glucose 103 7/13: potassium WNL, BUN 70H, creatinine 2.4H, glucose 239H, A1c 6.1H, phosphorus 5.4H Nutritional Hx/Data Height 1.68 m Height (Calculated Centimeters) 167.6 Current Weight (lbs) 65.771 kg Weight (Calculated Kilograms) 65.8 Weight (Calculated Grams) 63444.9 [place] Body Weight 142 Weight Status Approriate GI Symptoms Difficult in: Swallowing Cultural/Ethnic/Tenriism Belief [facility]: Glucerna 1.2 at 85ml/hr x 20hrs, providing 2040kcal, promote weight gain. Skin Integrity/Comment: Gee 12. Skin intact. Estimated Nutritional Goals Calories/Kcals/Kg CBW 145lb/65.9kg Kcals Calculated 1976-2307kcal (30-35kcal/kg) Protein Calculated 46-92g (0.7-1.4g/kg, renal vs moderate to severe wasting) Fluid: ml Per MD (renal) Nutritional Problem 2. 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 Problem Problem Inadequate intake from enteral nutrition infusion related to Etiology estimated nutritional needs aeb Signs/Symptoms: providing to meet 61% lower end kcal needs Intervention/Recommendation Comments 1. Recommend Novasource Renal at 50ml/hr x 20hrs, providing 2000kcal and 91g protein. Current order Glytrol at 60ml/ hr x 20hrs is only providing 1200kcal, pt recieves 2040kcal at [facility]. Expected Outcomes/Goals Expected Outcomes/Goals 1. Pt to meet at least 100% of estimated nutritional needs on tube feeding with tolerance .
[2017-06-05 13:14] LABS: FOLIC ACID >20.0 ng/mL (>3.0)
[2017-06-05] MEDS: TPN 10%-70% CUSTOM IV SCH (15:34)
[2017-06-05] MEDS: Menthol/Zinc Oxide Oint 113gm Tube TP PRN (20:33)
[2017-06-05] MEDS: Atorvastatin Calcium 10 MG TAB GT SCH (20:34)
--- NOTE | 2017-06-05 21:28 | Progress Notes ---
DATE: 06/05/2017 PROBLEM LIST: 1. Multidrug resistant organism. 2. Congestive heart failure. 3. Renal failure. 4. Poor mentation. SYMPTOMS: Nil. The patient is currently undergoing dialysis. No respiratory distress, etc. PHYSICAL EXAMINATION: VITAL SIGNS: Temperature is 98.0, blood pressure 123/58, saturation is 96 on SIMV 4. NECK: Veins not visualized. CHEST: Shows diminished air entry with occasional rhonchi. HEART: Regular. ABDOMEN: Soft, nontender. EXTREMITIES: Shows some edematous changes. LABORATORY DATA: White count is 7.8, hemoglobin is 7.5. Electrolytes are okay, except for creatinine 2.9. ASSESSMENT: The patient clinically very marginal to extubated. PLANS AND SUGGESTIONS: We will continue current inhalation treatment, may consider tracheostomy and go from there. JOB# [id number]
--- NOTE | 2017-06-05 21:37 | General Progress Note ---
Subjective - Review of Systems Service Date: 06/05/17 Subjective: Patient seen and examined afebrile more sleepy persistently low platelet and low HH Objective - Results Result Diagrams: 06/05/17 04:42 06/05/17 04:42 Recent Labs: Laboratory Last Values WBC 7.8 Th/cmm (4.8-10.8) 06/05/17 04:42 RBC 2.70 Mil/cmm (3.80-5.80) L 06/05/17 04:42 Hgb 7.5 gm/dL (12.6-17.4) L* D 06/05/17 04:42 Hct 22.1 % (39.0-49.0) L* D 06/05/17 04:42 MCV 81.9 fl (80-99) 06/05/17 04:42 MCH 27.8 pg (27.0-31.0) 06/05/17 04:42 MCHC Differential 33.9 pg (28.0-36.0) 06/05/17 04:42 RDW 16.5 % (11.5-20.0) 06/05/17 04:42 Plt Count 95 Th/cmm (150-400) L D 06/05/17 04:42 MPV 10.3 fl 06/05/17 04:42 Neutrophils % 72.7 % (40.0-80.0) 06/04/17 04:47 Band Neutrophils % 5 % (0-10) 06/05/17 04:42 Lymphocytes % 13.0 % (20.0-50.0) L 06/04/17 04:47 Monocytes % 13.5 % (2.0-10.0) H 06/04/17 04:47 Eosinophils % 0.6 % (0.0-5.0) 06/04/17 04:47 Basophils % 0.2 % (0.0-2.0) 06/04/17 04:47 Neutrophils (Manual) 73 % (40-80) 06/05/17 04:42 Lymphocytes 13 % (20-50) L 06/05/17 04:42 Monocytes 8 % (2-10) 06/05/17 04:42 Eosinophils 0 % (0-5) 05/24/17 04:49 Basophils 0 % (0-3) 05/24/17 04:49 Metamyelocytes 1 % (0-0) H 06/05/17 04:42 Toxic Granulation 1+ 05/23/17 04:48 Platelet Estimate DECREASED PLATELETS (NORMAL) 06/05/17 04:42 Platelet Morphology GIANT PLATELETS SEEN (NORMAL) 06/05/17 04:42 Poikilocytosis 1+ 06/05/17 04:42 Anisocytosis 1+ 06/05/17 04:42 Target Cells 2+ 06/05/17 04:42 RBC Morph Micro Appear ABNORMAL (NORMAL) 06/05/17 04:42 Eos Smear Source URINE 05/14/17 18:00 Eos Smear Total Cells FEW EOSINOPHILS SEEN (NONE SEEN) 05/14/17 18:00 Plt Count 121 Th/cmm (150-750) L 06/04/17 04:47 PT 12.7 SECONDS (9.5-11.5) H 06/05/17 04:42 INR 1.21 (0.5-1.4) 06/05/17 04:42 PTT (Actin FS) 43.2 SECONDS (26.0-38.0) H 06/05/17 04:42 Fibrinogen 136.0 mg/dL (200.0-400.0) L 06/05/17 04:42 D-Dimer 581 ng/mL (100-400) H 06/04/17 04:47 Specimen Source Arterial 06/04/17 09:14 Sample Site Right Radial 06/04/17 09:14 pH 7.42 (7.35-7.45) 06/04/17 09:14 pCO2 48.0 mmHg (35.0-45.0) H 06/04/17 09:14 pO2 62.0 mmHg (80.0-100.0) L 06/04/17 09:14 HCO3 29.2 mEq/L (20.0-26.0) H 06/04/17 09:14 Base Excess 5.6 mEq/L (-3.0-3.0) H 06/04/17 09:14 O2 Saturation 92.0 % (92.0-100.0) 06/04/17 09:14 Feliciano Test YES 06/04/17 09:14 Vent Rate 4 06/04/17 09:14 Inspired O2 30 06/04/17 09:14 Tidal Volume 500 06/04/17 09:14 PEEP 0 06/04/17 09:14 Pressure (ins/psv/peep) 18 06/04/17 09:14 Critical Value E.MCNEAL 06/04/17 09:14 Sodium 139 mEq/L (136-145) 06/05/17 04:42 Potassium 3.9 mEq/L (3.5-5.1) 06/05/17 04:42 Chloride 103 mEq/L (98-107) 06/05/17 04:42 Carbon Dioxide 28.5 mEq/L (21.0-31.0) 06/05/17 04:42 Anion Gap 11.4 (7.0-16.0) 06/05/17 04:42 BUN 62 mg/dL (7-25) H 06/05/17 04:42 Creatinine 2.9 mg/dL (0.7-1.3) H 06/05/17 04:42 Est GFR ( Amer) TNP 06/05/17 04:42 Est GFR (Non-Af Amer) TNP 06/05/17 04:42 BUN/Creatinine Ratio 21.4 06/05/17 04:42 Glucose 233 mg/dL (70-105) H 06/05/17 04:42 POC Glucose 191 MG/DL (70 - 105) H 06/05/17 17:52 Hemoglobin A1c % 6.1 % (4.0-6.0) H 05/15/17 06:30 Plasma/Ser Osmolality 301 mOsmol/kg (280-301) 05/14/17 18:20 Whole Bld Lactic Acid 1.58 mmol/L (0.60-1.99) 05/13/17 17:42 Uric Acid 7.7 mg/dL (4.4-7.6) H 05/15/17 06:30 Calcium 9.1 mg/dL (8.6-10.3) 06/05/17 04:42 Phosphorus 3.9 mg/dL (2.5-5.0) 06/05/17 04:42 Magnesium 2.1 mg/dL (1.9-2.7) 06/05/17 04:42 Iron 70 ug/dL (38-169) 06/04/17 04:47 TIBC 94 ug/dL (250-450) L 06/04/17 04:47 Iron Saturation 74 % (15-55) H 06/04/17 04:47 Unsaturated IBC 24 ug/dL (111-343) L 06/04/17 04:47 Ferritin 351 ng/mL (30-400) 06/03/17 04:48 Total Bilirubin 2.7 mg/dL (0.3-1.0) H 06/03/17 04:48 Direct Bilirubin 0.09 mg/dL (0.0-0.2) 05/19/17 04:50 AST 75 U/L (13-39) H 06/03/17 04:48 ALT 10 U/L (7-52) 06/03/17 04:48 Alkaline Phosphatase 657 U/L (34-104) H 06/03/17 04:48 Ammonia 65 umol/L (16-53) H 05/19/17 04:50 Creatine Kinase 35 U/L (30-223) 05/16/17 23:06 Troponin I 0.02 ng/mL (0.01-0.05) 05/16/17 23:06 B-Natriuretic Peptide 1480.0 pg/mL (5.0-100.0) H 06/05/17 04:42 Total Protein 5.7 gm/dL (6.0-8.3) L 06/03/17 04:48 Albumin 3.0 gm/dL (4.2-5.5) L 06/03/17 04:48 Globulin 2.7 gm/dL 06/03/17 04:48 Albumin/Globulin Ratio 1.1 (1.0-1.8) 06/03/17 04:48 Prealbumin 6 mg/dL (9-32) L 06/04/17 04:47 Triglycerides 60 mg/dL (<150) 06/04/17 04:47 Cholesterol 63 mg/dL (<200) 06/04/17 04:47 Vitamin B12 >1999 pg/mL (211-946) H 06/04/17 04:47 Folic Acid >20.0 ng/mL (>3.0) 06/04/17 04:47 TSH 2.74 uIU/ml (0.34-5.60) 05/15/17 06:30 Urine Source CATH 05/13/17 19:50 Urine Color YELLOW 05/13/17 19:50 Urine Clarity CLOUDY (CLEAR) 05/13/17 19:50 Urine pH 6.0 05/13/17 19:50 Ur Specific [place] 1.015 (1.005-1.030) 05/13/17 19:50 Urine Protein 100 mg/dL (NEGATIVE) H 05/13/17 19:50 Urine Glucose (UA) NEGATIVE mg/dL (NEGATIVE) 05/13/17 19:50 Urine Ketones NEGATIVE mg/dL (NEGATIVE) 05/13/17 19:50 Urine Blood LARGE (NEGATIVE) H 05/13/17 19:50 Urine Nitrate NEGATIVE (NEGATIVE) 05/13/17 19:50 Urine Bilirubin NEGATIVE (NEGATIVE) 05/13/17 19:50 Urine Urobilinogen 0.2 E.U./dL (0.2 - 1.0) 05/13/17 19:50 Ur Leukocyte Esterase LARGE (NEGATIVE) H 05/13/17 19:50 Urine RBC 50-100 /hpf (0-5) H 05/13/17 19:50 Urine WBC >100 /hpf (0-5) H 05/13/17 19:50 Ur Epithelial Cells NONE SEEN /lpf (FEW) 05/13/17 19:50 Urine Bacteria NONE SEEN /hpf (NONE SEEN) 05/13/17 19:50 Ur Random Sodium 30 mmol/L 05/14/17 18:00 Urine Creatinine 36.4 mg/dl (Not Estab.) 05/14/17 18:00 Urine Microalbumin 363.5 ug/mL (Not Estab.) 05/14/17 18:00 Microalb/Creat Ratio 998.6 mg/g creat (0.0-30.0) H 05/14/17 18:00 Stool Occult Blood NEGATIVE (NEGATIVE) 05/25/17 17:49 Random Vancomycin 19.1 ug/mL (5.0-40.0) 05/19/17 04:50 Hepatitis A IgM Ab Negative (Negative) 05/21/17 04:46 Hep Bs Antigen Negative (Negative) 05/21/17 04:46 Hep B Core IgM Ab Negative (Negative) 05/21/17 04:46 Hepatitis C Antibody 0.1 s/co ratio (0.0-0.9) 05/21/17 04:46 Blood Type B POSITIVE 06/04/17 04:47 Antibody Screen NEGATIVE 06/04/17 04:47 Crossmatch See Detail 05/21/17 10:19 - Physical Exam Vitals and I&O: Vital Signs Temp 99.6 F 06/05/17 20:00 Pulse 86 06/05/17 21:23 Resp 24 06/05/17 20:00 BP 155/68 06/05/17 20:34 Pulse Ox 96 06/05/17 21:23 Intake & Output 06/05/17 06/05/17 06/06/17 06:59 18:59 06:59 Intake Total 720 2011.333 Output Total 854 318 4412 Balance 420 1801.333 -2450 Weight (lbs) 65.363 kg 66.451 kg 66.451 kg Intake: Intake, IV Amount 881.333 Multivitamin Inj 10 ml In 881.333 Dextrose 70% 250 ml In Amino Acids 10% 500 ml In Intralipids 20% 200 ml @ 40 mls/hr IV .Q24H [facility] Rx#:[id number] Oral 0 Tube Feeding 220 200 TPN/PPN 480 Blood Product 300 250 Other 200 200 Output: Urine 300 210 Hemodialysis 2450 Other: # Bowel Movements 3 1 Stool Characteristics Soft Soft Liquid Liquid Active Medications: Current Medications Acetaminophen (Tylenol) 650 mg PO Q4HR PRN PRN Reason: Pain Or Fever above 101 Stop: 07/14/17 15:15 Last Admin: 05/23/17 15:07 Dose: 650 mg Albuterol/Ipratropium (Duoneb Neb) 3 ml HHN Q4HRT [facility] Stop: 07/19/17 14:59 Last Admin: 06/05/17 19:05 Dose: 3 ml Atorvastatin Calcium (Lipitor) 10 mg GT HS YESSICA PRN Reason: Protocol Stop: 07/14/17 20:59 Last Admin: 06/05/17 20:34 Dose: 10 mg Budesonide (Pulmicort) 1 mg HHN BIDRT [facility] Stop: 07/19/17 18:59 Last Admin: 06/05/17 19:05 Dose: 1 mg Calamine/Phenol (Calmoseptine) 1 appl TP QID PRN PRN Reason: Skin Irritation Stop: 08/03/17 12:28 Last Admin: 06/05/17 20:33 Dose: 1 appl Calamine/Phenol (Calmoseptine) 1 appl TP QID [facility] Stop: 08/03/17 12:59 Last Admin: 06/05/17 16:30 Dose: 1 appl Carbidopa/Levodopa (Sinemet 25mg-100 Mg) 1 tab PO TID YESSIAC Stop: 07/14/17 08:59 Last Admin: 06/05/17 20:34 Dose: 1 tab Chlorhexidine Gluconate (Peridex) 15 ml MM 0800,1999 YESSICA Stop: 07/23/17 19:59 Last Admin: 06/05/17 20:26 Dose: 15 ml Clonidine HCl (Catapres) 0.1 mg PO Q6HR PRN PRN Reason: BP MAINTENANCE (PER PROTOCOL) Stop: 07/28/17 13:31 Last Admin: 05/29/17 21:04 Dose: 0.1 mg Colistimethate Sodium (Colistin) 75 mg HHN BIDRT YESSICA Stop: 07/30/17 18:59 Last Admin: 06/05/17 19:05 Dose: 75 mg Dextrose (D50w) 50 ml IVP PRN PRN; Protocol PRN Reason: HYPOGLYCEMIA Stop: 07/20/17 00:54 Last Admin: 05/22/17 23:34 Dose: 50 ml Diltiazem HCl (Cardizem) 10 mg IVP Q6HR PRN PRN Reason: HR >130 Stop: 07/22/17 17:09 Last Admin: 05/24/17 04:21 Dose: 10 mg Furosemide (Lasix) 40 mg IVP DAILY [facility] Stop: 07/18/17 08:59 Last Admin: 06/05/17 08:39 Dose: 40 mg Hydralazine HCl (Apresoline 20 Mg/Ml) 10 mg IV Q6HR PRN PRN Reason: BP MAINTENANCE (PER PROTOCOL) Stop: 07/30/17 13:09 Last Admin: 06/01/17 08:09 Dose: 10 mg Norepinephrine Bitartrate 8 mg (/ Dextrose) 258 mls @ 0 mls/hr IV TITR PRN; Protocol; Titrate PRN Reason: BP MAINTENANCE (PER PROTOCOL) Stop: 07/19/17 12:29 Last Admin: 05/21/17 01:06 Dose: 10 mcg/min, 19.35 mls/hr Phenylephrine HCl 10 mg/ (Sodium Chloride) 250 mls @ 0 mls/hr IV TITR YESSICA; Per Protocol PRN Reason: Protocol Stop: 07/19/17 12:59 Multivitamins/Minerals 10 ml/Dextrose/ Amino Acids/Electrolytes/ Fat Emulsion Intravenous 960 mls @ 40 mls/hr IV .Q24H [facility] Stop: 08/01/17 14:59 Last Admin: 06/05/17 15:34 Dose: 40 mls/hr Insulin Aspart (Novolog Insulin Sliding Scale) 0 units SUBQ Q6HR YESSICA PRN Reason: Protocol Stop: 07/14/17 00:00 Last Admin: 06/05/17 17:53 Dose: Not Given Isosorbide Dinitrate (Isordil) 20 mg GT TID YESSICA Stop: 07/28/17 13:33 Last Admin: 06/05/17 20:34 Dose: 20 mg Lactobacillus Rhamnosus (Culturelle) 1 each PO DAILY [facility] Stop: 07/17/17 08:59 Last Admin: 06/05/17 08:40 Dose: 1 each Levetiracetam (Keppra) 250 mg NG BID [facility] Stop: 07/14/17 08:59 Last Admin: 06/05/17 16:30 Dose: 250 mg Metoclopramide HCl (Reglan) 5 mg IVP TID [facility] Stop: 07/20/17 20:59 Last Admin: 06/05/17 20:34 Dose: 5 mg Metoprolol Tartrate (Lopressor) 50 mg GT Q8H [facility] Stop: 07/18/17 08:59 Last Admin: 06/05/17 16:30 Dose: 50 mg Miscellaneous (Vte Chemical Prophylaxis Screen/ Admission) 1 ea PRN PRN PRN Reason: PROTOCOL Stop: 07/14/17 09:25 Miscellaneous (Clinical Monitoring) 1 ea MC DAILY PRN PRN Reason: RENAL Stop: 07/15/17 12:32 Miscellaneous (Probiotic Screen) 1 ea PRN PRN PRN Reason: PROTOCOL Stop: 07/16/17 09:33 Miscellaneous (Tpn Per Pharmacy) 1 ea PRN PRN PRN Reason: PROTOCOL Stop: 07/24/17 15:59 Pantoprazole Sodium (Protonix) 40 mg GT DAILY [facility] Stop: 07/14/17 08:59 Last Admin: 06/05/17 08:40 Dose: 40 mg General: No acute distress, no Alert Cardiovascular: Regular rate Lungs: Other (occasional rhonchi) Abdomen: Soft, no Tender Extremities: no Edema (no edema) - Procedures Procedures: Procedures Procedure Code Date INSERT EMERGENCY AIRWAY 22266 05/13/17 INSERT TUNNELED CV CATH 34263 05/13/17 INSERTION OF ENDOTRACHEAL AIRWAY INTO TRACHEA, VIA OPENING [id number] 05/13/17 INSERTION OF INFUSION DEV INTO R FEMOR VEIN, PERC APPROACH [id number] 05/13/17 RESPIRATORY VENTILATION, GREATER THAN 96 CONSECUTIVE HOURS [id number] 05/13/17 VENT MGMT INPAT IN DAY 37964 05/13/17 Assessment/Plan - Problem List Patient Problems: All Active Problems COUGH AND CONGESTION (Acute) Congestive heart failure (CHF) (Acute) I50.9 congestive heart failure (Acute) hypertension uncontrolled with bradycarda (Acute) renal failure (Acute) - Assessment Assessment: Current Active Problems Problem Status Onset COUGH AND CONGESTION Acute Acute respiratory failure vent dependant Renal failure improving on HD MDRO Pneumonia improving Afib RVR UTI CAD DIC 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 HTN renal disease Seizure disorder - Plan Plan: Platelet and PRBC transfusion Monitor CBC Will dw family re: TRACH placement (unable to wean off ) chest x ray s/o effusion with congestion Heparin sub Q Cardizem iv prn Metoprolol Colistin per ID rec HD per nephrology rec Continue vent support PPN started for nutritional support Start tube feeding Plan of care discussed with nursing staff Nutritional Asmnt/Malnutr-PDOC - Dietary Evaluation Malnutrition Findings (Please click <Entered> for more info): Nutritional Asmnt/Malnutrition Start: 05/15/17 13: 56 Text: Status: Complete Freq: Document 05/15/17 13:56 GSUN (Rec: 05/15/17 14:18 GSUN [email or web address]) Nutritional Asmnt/Malnutrition Patient General Information Nutritional Screening High Risk Screening Diagnosis PNA, NICK, icnreasing renal failure, CVA, CHF, DM Pertinent Medical Hx/Surgical Hx CVA, dementia, afib, CAD, HTN, dyslipidemia, epilepsy, GERD, aspiration PNA, DM, CKD, dehydration, C. diff, anemia D Subjective Information 86 year old male from SNF. Pt greeted RD. Pt is overall thin , moderate to severe wasting to chest, clavicles, extremities. Observed Glytrol running at 60ml/hr x20hrs during visit. Unable to obtain CBW due to bedscale not calibrated. Discussed with YVETTE Farooq regarding tube feeding recommendations. Current Diet Order/ Nutrition Support Glytrol at 60ml/hr x 20hrs, providing 1200kcal 54g protein Pertinent Medications Lipitor, Novolog, Levemir, Cephulac, Morphine, Protonix, Nacl 0.9% Pertinent Labs 05/13: potassium 5.3H, BUN 80H, creatinine 2.4H, glucose 103 05/15: potassium WNL, BUN 70H, creatinine 2.4H, glucose 239H, A1c 6.1H, phosphorus 5.4H Nutritional Hx/Data Height 1.68 m Height (Calculated Centimeters) 167.6 Current Weight (lbs) 65.771 kg Weight (Calculated Kilograms) 65.8 Weight (Calculated Grams) 88882.9 [place] Body Weight 142 Weight Status Approriate GI Symptoms Difficult in: Swallowing Cultural/Ethnic/Adventist Belief [facility]: Glucerna 1.2 at 85ml/hr x 20hrs, providing 2040kcal, promote weight gain. Skin Integrity/Comment: Gee 12. Skin intact. Estimated Nutritional Goals Calories/Kcals/Kg CBW 145lb/65.9kg Kcals Calculated 1976-7kcal (30-35kcal/kg) Protein Calculated 46-92g (0.7-1.4g/kg, renal vs moderate to severe wasting) Fluid: ml Per MD (renal) Nutritional Problem 2. 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 Problem Problem Inadequate intake from enteral nutrition infusion related to Etiology estimated nutritional needs aeb Signs/Symptoms: providing to meet 61% lower end kcal needs Intervention/Recommendation Comments 1. Recommend Novasource Renal at 50ml/hr x 20hrs, providing 2000kcal and 91g protein. Current order Glytrol at 60ml/ hr x 20hrs is only providing 1200kcal, pt recieves 2040kcal at [facility]. Expected Outcomes/Goals Expected Outcomes/Goals 1. Pt to meet at least 100% of estimated nutritional needs on tube feeding with tolerance .
[2017-06-06] MEDS: INSULIN ASPART SLIDING SCALE 100 UNITS/ML UNIT SUBQ SCH ×4 (00:03→17:16)
[2017-06-06] MEDS: Albuterol/Ipratropium Neb 3 ML AERS HHN SCH ×6 (02:15→22:53)
[2017-06-06 05:58] LABS: MEAN CELL VOLUME 83.3 fl (80-99); MEAN CORPUSCULAR HEMOGLOBIN 28.8 pg (27.0-31.0); MEAN CORPUSCULAR HGB CONC 34.5 pg (28.0-36.0); MEAN PLATELET VOLUME 10.3 fl; PLATELET COUNT 99 Th/cmm (150-400); RED BLOOD COUNT 3.44 Mil/cmm (3.80-5.80); RED CELL DISTRIBUTION WIDTH 15.8 % (11.5-20.0)
[2017-06-06 06:11] LABS: ALB/GLOB RATIO 1.1 (1.0-1.8); ALKALINE PHOSPHATASE 1199 U/L (34-104); ANION GAP 8.3 (7.0-16.0); BILIRUBIN,TOTAL 4.7 mg/dL (0.3-1.0); BUN - UREA NITROGEN 48 mg/dL (7-25); CALCIUM SERUM 8.9 mg/dL (8.6-10.3); CARBON DIOXIDE 30.4 mEq/L (21.0-31.0); CHLORIDE 102 mEq/L (98-107); CREATININE - SERUM 2.4 mg/dL (0.7-1.3); GLUCOSE 159 mg/dL (70-105); MAGNESIUM 1.9 mg/dL (1.9-2.7); PHOSPHOROUS 2.6 mg/dL (2.5-5.0); POTASSIUM SERUM 3.7 mEq/L (3.5-5.1); SGOT 100 U/L (13-39); SGPT/ALT 11 U/L (7-52); SODIUM SERUM 137 mEq/L (136-145)
[2017-06-06 06:22] LABS: INR 1.16 (0.5-1.4); PROTHROMBIN TIME (TEST) 12.2 SECONDS (9.5-11.5)
[2017-06-06 07:08] LABS: HEMATOCRIT 28.7 % (39.0-49.0); HEMOGLOBIN 9.9 gm/dL (12.6-17.4); WHITE BLOOD COUNT 11.3 Th/cmm (4.8-10.8)
[2017-06-06] MEDS: Budesonide 0.5 Mg/2 mL Ud HHN SCH ×2 (07:14→19:15)
[2017-06-06 08:28] LABS: EOSINOPHIL 1 % (0-5); METAMYELOCYTE 1 % (0-0); NEUTROPHILS 70 % (40-80); TOTAL CELLS COUNTED 100
[2017-06-06 08:29] LABS: ANISOCYTOSIS 1+; PLATELET ESTIMATE DECREASED PLATELETS (NORMAL); PLATELET MORPHOLOGY GIANT PLATELETS SEEN (NORMAL); POIKILOCYTOSIS 1+; TARGET CELLS 1+
[2017-06-06 08:55] LABS: ABG SOURCE Arterial; ALLEN TEST YES; FIO2 30; HCO3 30.3 mEq/L (20.0-26.0); MECH RATE 4; MECH VT 500; PS 18; pH 7.43 (7.35-7.45)
--- NOTE | 2017-06-06 09:22 | Diagnostic Imaging Report ---
Portable chest x-ray HISTORY: Shortness of breath Compared with prior exam of June 04, 2017, there persistent bilateral pleural effusions and bilateral infiltrates suggesting congestive heart failure and pulmonary edema. Persistent yet slightly decreased pleural fluid on the left side. An endotracheal tube tip is approximately 2.0 cm above the matias. IMPRESSION: 1. Persistent yet decreased left pleural effusion associated with bilateral infiltrates and a right pleural effusion unchanged. Findings suggest changes of congestive heart failure with pulmonary edema. Underlying pneumonia cannot be excluded. Clinical correlation is needed.
[2017-06-06] MEDS: Chlorhexidine Gluconate 0.12% 15mL Mouthwash MM SCH ×2 (09:30→20:47)
[2017-06-06] MEDS: Lactobacillus Rhamnosus 10 Billion CFU Capsule PO SCH (09:35)
[2017-06-06] MEDS: Metoclopramide 5 mg/mL 2mL Vial IVP SCH ×3 (09:35→20:50)
[2017-06-06] MEDS: Levetiracetam 500 mg/5mL 5mL UDC NG SCH ×2 (09:35→17:06)
[2017-06-06] MEDS: Menthol/Zinc Oxide Oint 113gm Tube TP SCH ×3 (09:35→17:01)
[2017-06-06] MEDS: Pantoprazole 40 mg/Packet GT SCH (10:06)
--- NOTE | 2017-06-06 10:38 | Consultation ---
DATE OF CONSULTATION: 05/18/2017 HISTORY OF PRESENT ILLNESS: This 86-year-old male was seen and examined at the courtesy of Dr. Montano. The patient is in ICU. There is no history available from the patient. The patient was admitted here with atrial fibrillation with rapid ventricular response to ICU. The patient apparently from reviewing the chart and getting the information. The patient does have a history of coronary artery disease, apparently has had old myocardial infarction. He was also found to have congestive heart failure with large right pleural effusion and some small left pleural effusion also the patient has history of diabetes, history of hypertension, aspiration pneumonia, respiratory distress, the patient has history of seizures, history of Parkinson's, also chronic renal failure, anemia, did have question of GI bleed, history of GERD and old CVA with left-sided weakness. LABORATORY DATA: Reveals CPK was 35, troponin was 0.02. BNP was 588.0. WBC was 9.2, hemoglobin 9.0, hematocrit 26.7 and platelet count was 256. CAT scan of the chest without contrast reveal a large right pleural effusion and [id number] left pleural effusion and consolidation also. Renal ultrasound reveals no evidence of obstructive uropathy or nephrolithiasis, bilateral renal cyst. EKG revealed atrial fibrillation fast ventricular response, possible old anteroseptal wall injury. PAST MEDICAL HISTORY, FAMILY HISTORY, SOCIAL HISTORY, REVIEW OF SYSTEMS: Not available from the patient. PHYSICAL EXAMINATION: VITAL SIGNS: Heart rate was 120, blood pressure was 165/86. SKIN: Normal. HEAD: Normocephalic. EYES: Conjunctivae were pale. There is no icterus in the eyes. Pupils reacting to light. NECK: There was no increased jugular venous distention, no thyromegaly, no lymphadenopathy. Carotids equal both sides. CHEST: Bilaterally symmetrical and moved well with respirations. Respiratory movements equal both sides. Trachea is central. There is note to percussion. Breath sounds, diminished air entry at the bases, few rales. CARDIOVASCULAR SYSTEM: PMI not well localized and no positional thrill. No parasternal heave. S1 is of biting intensity. S2 is physiologic, question of S3, no rub. ABDOMEN: Soft, no tenderness, no rigidity, no guarding and no organomegaly. Bowel sounds normal. EXTREMITIES: No calf tenderness. Peripheral pulses diminished. IMPRESSION: Atrial fibrillation with rapid ventricular response, coronary artery disease, possible old septal and anteroseptal wall injury, congestive heart failure, pleural effusions, diabetes mellitus, hypertension, diabetic chronic kidney disease, chronic renal failure, seizures, aspiration pneumonia, Parkinson's, old CVA, anemia, question of GI bleed, GERD. The patient will continue present management. We put him on Cardizem 5 mg IV q.6 p.r.n. for heart rate of more than 120. We will also increase his dose of Lopressor from 50 mg to . He is already on Lipitor. Echocardiogram to be done and to be evaluated. Further recommendation to be made depending on the tests available and Dr. Ivis Martini will follow him from the morning. [facility]# [id number]
[2017-06-06 11:37] LABS: URINE BILIRUBIN SMALL (NEGATIVE); URINE BLOOD LARGE (NEGATIVE); URINE GLUCOSE (UA) NEGATIVE (NEGATIVE); URINE KETONE NEGATIVE (NEGATIVE); URINE PROTEIN 100 mg/dL (NEGATIVE); URINE UROBILINOGEN 0.2 E.U./dL (0.2 - 1.0)
[2017-06-06 11:38] LABS: URINE COLOR YELLOW
[2017-06-06 11:41] LABS: URINE EPITHELIAL CELLS RARE /lpf (FEW); URINE RBC 20-30 /hpf (0-5)
[2017-06-06] MEDS: Piperacillin/Tazobact 2.25 gm in 0.9% NS 50 ML IV SCH ×2 (12:00→17:10)
--- NOTE | 2017-06-06 12:11 | General Progress Note ---
Subjective - Review of Systems Service Date: 06/06/17 Subjective: drowsy today, on vent, nonverbal Objective - Results Result Diagrams: 06/06/17 05:03 06/06/17 05:03 Recent Labs: Laboratory Last Values WBC 11.3 Th/cmm (4.8-10.8) H D 06/06/17 05:03 RBC 3.44 Mil/cmm (3.80-5.80) L 06/06/17 05:03 Hgb 9.9 gm/dL (12.6-17.4) L D 06/06/17 05:03 Hct 28.7 % (39.0-49.0) L D 06/06/17 05:03 MCV 83.3 fl (80-99) 06/06/17 05:03 MCH 28.8 pg (27.0-31.0) 06/06/17 05:03 MCHC Differential 34.5 pg (28.0-36.0) 06/06/17 05:03 RDW 15.8 % (11.5-20.0) 06/06/17 05:03 Plt Count 99 Th/cmm (150-400) L 06/06/17 05:03 MPV 10.3 fl 06/06/17 05:03 Neutrophils % 72.7 % (40.0-80.0) 06/04/17 04:47 Band Neutrophils % 5 % (0-10) 06/05/17 04:42 Lymphocytes % 13.0 % (20.0-50.0) L 06/04/17 04:47 Monocytes % 13.5 % (2.0-10.0) H 06/04/17 04:47 Eosinophils % 0.6 % (0.0-5.0) 06/04/17 04:47 Basophils % 0.2 % (0.0-2.0) 06/04/17 04:47 Neutrophils (Manual) 70 % (40-80) 06/06/17 05:03 Lymphocytes 10 % (20-50) L 06/06/17 05:03 Monocytes 16 % (2-10) H 06/06/17 05:03 Eosinophils 1 % (0-5) 06/06/17 05:03 Basophils 0 % (0-3) 05/24/17 04:49 Metamyelocytes 1 % (0-0) H 06/06/17 05:03 Atypical Lymphocytes 2 % 06/06/17 05:03 Toxic Granulation 1+ 05/23/17 04:48 Platelet Estimate DECREASED PLATELETS (NORMAL) 06/06/17 05:03 Platelet Morphology GIANT PLATELETS SEEN (NORMAL) 06/06/17 05:03 Poikilocytosis 1+ 06/06/17 05:03 Anisocytosis 1+ 06/06/17 05:03 Target Cells 1+ 06/06/17 05:03 RBC Morph Micro Appear ABNORMAL (NORMAL) 06/06/17 05:03 Eos Smear Source URINE 05/14/17 18:00 Eos Smear Total Cells FEW EOSINOPHILS SEEN (NONE SEEN) 05/14/17 18:00 Plt Count 121 Th/cmm (150-750) L 06/04/17 04:47 PT 12.2 SECONDS (9.5-11.5) H 06/06/17 05:03 INR 1.16 (0.5-1.4) 06/06/17 05:03 PTT (Actin FS) 40.8 SECONDS (26.0-38.0) H 06/06/17 05:03 Fibrinogen 168.0 mg/dL (200.0-400.0) L 06/06/17 05:03 D-Dimer 581 ng/mL (100-400) H 06/04/17 04:47 Specimen Source Arterial 06/06/17 08:45 Sample Site Left Radial 06/06/17 08:45 pH 7.43 (7.35-7.45) 06/06/17 08:45 pCO2 49.0 mmHg (35.0-45.0) H 06/06/17 08:45 pO2 63.0 mmHg (80.0-100.0) L 06/06/17 08:45 HCO3 30.3 mEq/L (20.0-26.0) H 06/06/17 08:45 Base Excess 7.0 mEq/L (-3.0-3.0) H 06/06/17 08:45 O2 Saturation 92.0 % (92.0-100.0) 06/06/17 08:45 Feliciano Test YES 06/06/17 08:45 Vent Rate 4 06/06/17 08:45 Inspired O2 30 06/06/17 08:45 Tidal Volume 500 06/06/17 08:45 PEEP 0 06/06/17 08:45 Pressure (ins/psv/peep) 18 06/06/17 08:45 Critical Value E.MCNEAL 06/06/17 08:45 Sodium 137 mEq/L (136-145) 06/06/17 05:03 Potassium 3.7 mEq/L (3.5-5.1) 06/06/17 05:03 Chloride 102 mEq/L (98-107) 06/06/17 05:03 Carbon Dioxide 30.4 mEq/L (21.0-31.0) 06/06/17 05:03 Anion Gap 8.3 (7.0-16.0) 06/06/17 05:03 BUN 48 mg/dL (7-25) H 06/06/17 05:03 Creatinine 2.4 mg/dL (0.7-1.3) H 06/06/17 05:03 Est GFR ( Amer) TNP 06/06/17 05:03 Est GFR (Non-Af Amer) TNP 06/06/17 05:03 BUN/Creatinine Ratio 20.0 06/06/17 05:03 Glucose 159 mg/dL (70-105) H 06/06/17 05:03 POC Glucose 187 MG/DL (70 - 105) H 06/06/17 06:39 Hemoglobin A1c % 6.1 % (4.0-6.0) H 05/15/17 06:30 Plasma/Ser Osmolality 301 mOsmol/kg (280-301) 05/14/17 18:20 Whole Bld Lactic Acid 1.58 mmol/L (0.60-1.99) 05/13/17 17:42 Uric Acid 7.7 mg/dL (4.4-7.6) H 05/15/17 06:30 Calcium 8.9 mg/dL (8.6-10.3) 06/06/17 05:03 Phosphorus 2.6 mg/dL (2.5-5.0) 06/06/17 05:03 Magnesium 1.9 mg/dL (1.9-2.7) 06/06/17 05:03 Iron 70 ug/dL (38-169) 06/04/17 04:47 TIBC 94 ug/dL (250-450) L 06/04/17 04:47 Iron Saturation 74 % (15-55) H 06/04/17 04:47 Unsaturated IBC 24 ug/dL (111-343) L 06/04/17 04:47 Ferritin 351 ng/mL (30-400) 06/03/17 04:48 Total Bilirubin 4.7 mg/dL (0.3-1.0) H 06/06/17 05:03 Direct Bilirubin 0.09 mg/dL (0.0-0.2) 05/19/17 04:50 AST 100 U/L (13-39) H 06/06/17 05:03 ALT 11 U/L (7-52) 06/06/17 05:03 Alkaline Phosphatase 1199 U/L (34-104) H 06/06/17 05:03 Ammonia 65 umol/L (16-53) H 05/19/17 04:50 Creatine Kinase 35 U/L (30-223) 05/16/17 23:06 Troponin I 0.02 ng/mL (0.01-0.05) 05/16/17 23:06 B-Natriuretic Peptide 1480.0 pg/mL (5.0-100.0) H 06/05/17 04:42 Total Protein 6.0 gm/dL (6.0-8.3) 06/06/17 05:03 Albumin 3.1 gm/dL (4.2-5.5) L 06/06/17 05:03 Globulin 2.9 gm/dL 06/06/17 05:03 Albumin/Globulin Ratio 1.1 (1.0-1.8) 06/06/17 05:03 Prealbumin 6 mg/dL (9-32) L 06/04/17 04:47 Triglycerides 60 mg/dL (<150) 06/04/17 04:47 Cholesterol 63 mg/dL (<200) 06/04/17 04:47 Vitamin B12 >1999 pg/mL (211-946) H 06/04/17 04:47 Folic Acid >20.0 ng/mL (>3.0) 06/04/17 04:47 TSH 2.74 uIU/ml (0.34-5.60) 05/15/17 06:30 Urine Source CATH 06/06/17 10:30 Urine Color YELLOW 06/06/17 10:30 Urine Clarity SL. CLOUDY (CLEAR) 06/06/17 10:30 Urine pH 5.0 (4.6 - 8.0) 06/06/17 10:30 Ur Specific [place] 1.025 (1.005-1.030) 06/06/17 10:30 Urine Protein 100 mg/dL (NEGATIVE) H 06/06/17 10:30 Urine Glucose (UA) NEGATIVE mg/dL (NEGATIVE) 06/06/17 10:30 Urine Ketones NEGATIVE mg/dL (NEGATIVE) 06/06/17 10:30 Urine Blood LARGE (NEGATIVE) H 06/06/17 10:30 Urine Nitrate NEGATIVE (NEGATIVE) 06/06/17 10:30 Urine Bilirubin SMALL (NEGATIVE) H 06/06/17 10:30 Urine Urobilinogen 0.2 E.U./dL (0.2 - 1.0) 06/06/17 10:30 Ur Leukocyte Esterase LARGE (NEGATIVE) H 06/06/17 10:30 Urine RBC 20-30 /hpf (0-5) 06/06/17 10:30 Urine WBC 10-25 /hpf (0-5) H 06/06/17 10:30 Ur Epithelial Cells RARE /lpf (FEW) 06/06/17 10:30 Urine Bacteria f /hpf (NONE SEEN) 06/06/17 10:30 Urine Yeast MODERATE /hpf (NONE SEEN) H 06/06/17 10:30 Ur Random Sodium 30 mmol/L 05/14/17 18:00 Urine Creatinine 36.4 mg/dl (Not Estab.) 05/14/17 18:00 Urine Microalbumin 363.5 ug/mL (Not Estab.) 05/14/17 18:00 Microalb/Creat Ratio 998.6 mg/g creat (0.0-30.0) H 05/14/17 18:00 Stool Occult Blood NEGATIVE (NEGATIVE) 05/25/17 17:49 Random Vancomycin 19.1 ug/mL (5.0-40.0) 05/19/17 04:50 Hepatitis A IgM Ab Negative (Negative) 05/21/17 04:46 Hep Bs Antigen Negative (Negative) 05/21/17 04:46 Hep B Core IgM Ab Negative (Negative) 05/21/17 04:46 Hepatitis C Antibody 0.1 s/co ratio (0.0-0.9) 05/21/17 04:46 Blood Type B POSITIVE 06/04/17 04:47 Antibody Screen NEGATIVE 06/04/17 04:47 Crossmatch See Detail 05/21/17 10:19 - Physical Exam Vitals and I&O: Vital Signs Temp 98 F 06/06/17 04:00 Pulse 96 06/06/17 09:30 Resp 25 06/06/17 07:00 BP 154/75 06/06/17 10:18 Pulse Ox 94 06/06/17 09:19 Intake & Output 06/05/17 06/06/17 06/06/17 18:59 06:59 18:59 Intake Total 2011.333 Output Total 210 2450 Balance 1801.333 -2450 Weight (lbs) 66.451 kg 66.451 kg Intake: Intake, IV Amount 881.333 Multivitamin Inj 10 ml In 881.333 Dextrose 70% 250 ml In Amino Acids 10% 500 ml In Intralipids 20% 200 ml @ 40 mls/hr IV .Q24H [facility] Rx#:[id number] Tube Feeding 200 TPN/PPN 480 Blood Product 250 Other 200 Output: Urine 210 Hemodialysis 2450 Other: # Bowel Movements 1 Stool Characteristics Soft Liquid Active Medications: Current Medications Acetaminophen (Tylenol) 650 mg PO Q4HR PRN PRN Reason: Pain Or Fever above 101 Stop: 07/14/17 15:15 Last Admin: 06/06/17 08:50 Dose: 650 mg Albuterol/Ipratropium (Duoneb Neb) 3 ml HHN Q4HRT [facility] Stop: 07/19/17 14:59 Last Admin: 06/06/17 07:15 Dose: 3 ml Atorvastatin Calcium (Lipitor) 10 mg GT HS YESSICA PRN Reason: Protocol Stop: 07/14/17 20:59 Last Admin: 06/05/17 20:34 Dose: 10 mg Budesonide (Pulmicort) 1 mg HHN BIDRT [facility] Stop: 07/19/17 18:59 Last Admin: 06/06/17 07:14 Dose: 1 mg Calamine/Phenol (Calmoseptine) 1 appl TP QID PRN PRN Reason: Skin Irritation Stop: 08/03/17 12:28 Last Admin: 06/05/17 20:33 Dose: 1 appl Calamine/Phenol (Calmoseptine) 1 appl TP QID [facility] Stop: 08/03/17 12:59 Last Admin: 06/06/17 09:35 Dose: 1 appl Carbidopa/Levodopa (Sinemet 25mg-100 Mg) 1 tab PO TID YESSICA Stop: 07/14/17 08:59 Last Admin: 06/06/17 09:35 Dose: 1 tab Chlorhexidine Gluconate (Peridex) 15 ml MM 0800,2000 YESSICA Stop: 07/23/17 19:59 Last Admin: 06/06/17 09:30 Dose: 15 ml Clonidine HCl (Catapres) 0.1 mg PO Q6HR PRN PRN Reason: BP MAINTENANCE (PER PROTOCOL) Stop: 07/28/17 13:31 Last Admin: 05/29/17 21:04 Dose: 0.1 mg Colistimethate Sodium (Colistin) 75 mg HHN BIDRT YESSICA Stop: 07/30/17 18:59 Last Admin: 06/06/17 07:14 Dose: 75 mg Dextrose (D50w) 50 ml IVP PRN PRN; Protocol PRN Reason: HYPOGLYCEMIA Stop: 07/20/17 00:54 Last Admin: 05/22/17 23:34 Dose: 50 ml Diltiazem HCl (Cardizem) 10 mg IVP Q6HR PRN PRN Reason: HR >130 Stop: 07/22/17 17:09 Last Admin: 05/24/17 04:21 Dose: 10 mg Furosemide (Lasix) 40 mg IVP DAILY [facility] Stop: 07/18/17 08:59 Last Admin: 06/06/17 10:18 Dose: 40 mg Hydralazine HCl (Apresoline 20 Mg/Ml) 10 mg IV Q6HR PRN PRN Reason: BP MAINTENANCE (PER PROTOCOL) Stop: 07/30/17 13:09 Last Admin: 06/01/17 08:09 Dose: 10 mg Norepinephrine Bitartrate 8 mg (/ Dextrose) 258 mls @ 0 mls/hr IV TITR PRN; Protocol; Titrate PRN Reason: BP MAINTENANCE (PER PROTOCOL) Stop: 07/19/17 12:29 Last Admin: 05/21/17 01:06 Dose: 10 mcg/min, 19.35 mls/hr Phenylephrine HCl 10 mg/ (Sodium Chloride) 250 mls @ 0 mls/hr IV TITR YESSICA; Per Protocol PRN Reason: Protocol Stop: 07/19/17 12:59 Multivitamins/Minerals 10 ml/Dextrose/ Amino Acids/Electrolytes/ Fat Emulsion Intravenous 960 mls @ 40 mls/hr IV .Q24H [facility] Stop: 08/01/17 14:59 Last Admin: 06/05/17 15:34 Dose: 40 mls/hr Piperacillin Sod/Tazobactam (Sod 2.25 gm/ Sodium Chloride) 50 mls @ 100 mls/hr IV Q6HR YESSICA Stop: 08/05/17 11:59 Insulin Aspart (Novolog Insulin Sliding Scale) 0 units SUBQ Q6HR YESSICA PRN Reason: Protocol Stop: 07/14/17 00:00 Last Admin: 06/06/17 06:43 Dose: Not Given Isosorbide Dinitrate (Isordil) 20 mg GT TID YESSICA Stop: 07/28/17 13:33 Last Admin: 06/06/17 09:30 Dose: 20 mg Lactobacillus Rhamnosus (Culturelle) 1 each PO DAILY YESSICA Stop: 07/17/17 08:59 Last Admin: 06/06/17 09:35 Dose: 1 each Levetiracetam (Keppra) 250 mg NG BID YESSICA Stop: 07/14/17 08:59 Last Admin: 06/06/17 09:35 Dose: 250 mg Metoclopramide HCl (Reglan) 5 mg IVP TID YESSICA Stop: 07/20/17 20:59 Last Admin: 06/06/17 09:35 Dose: 5 mg Metoprolol Tartrate (Lopressor) 50 mg GT Q8H YESSICA Stop: 07/18/17 08:59 Last Admin: 06/06/17 09:15 Dose: 50 mg Miscellaneous (Vte Chemical Prophylaxis Screen/ Admission) 1 ea PRN PRN PRN Reason: PROTOCOL Stop: 07/14/17 09:25 Miscellaneous (Clinical Monitoring) 1 ea MC DAILY PRN PRN Reason: RENAL Stop: 07/15/17 12:32 Miscellaneous (Probiotic Screen) 1 ea PRN PRN PRN Reason: PROTOCOL Stop: 07/16/17 09:33 Miscellaneous (Tpn Per Pharmacy) 1 ea PRN PRN PRN Reason: PROTOCOL Stop: 07/24/17 15:59 Pantoprazole Sodium (Protonix) 40 mg GT DAILY [facility] Stop: 07/14/17 08:59 Last Admin: 06/06/17 10:06 Dose: 40 mg General: No acute distress, no Alert HEENT: Atraumatic, EOMI (normal), Mucous membr. moist/pink Neck: Supple, +2 carotid pulse wo bruit Cardiovascular: Regular rate, Normal S1, Normal S2 Lungs: Other (occasional rhonchi) Abdomen: Soft, no Tender Extremities: no Edema (no edema) Neurological: Sensation intact, Other (lethargic) Skin: no Rash Psych/Mental Status: Mood NL - Procedures Procedures: Procedures Procedure Code Date INSERT EMERGENCY AIRWAY 70913 05/13/17 INSERT TUNNELED CV CATH 61473 05/13/17 INSERTION OF ENDOTRACHEAL AIRWAY INTO TRACHEA, VIA OPENING [id number] 05/13/17 INSERTION OF INFUSION DEV INTO R FEMOR VEIN, PERC APPROACH [id number] 05/13/17 RESPIRATORY VENTILATION, GREATER THAN 96 CONSECUTIVE HOURS [id number] 05/13/17 VENT MGMT INPAT INIT DAY 55450 05/13/17 Assessment/Plan - Problem List Patient Problems: All Active Problems COUGH AND CONGESTION (Acute) Congestive heart failure (CHF) (Acute) I50.9 congestive heart failure (Acute) hypertension uncontrolled with bradycarda (Acute) renal failure (Acute) - Assessment Assessment: NICK on CKD, now on dialysis A LOC secondary to metabolic encephalopathy/medications Dehydration Essential hypertension with CKD COPD Chronic atrial fibrillation Status post CVA Aspiration pneumonia/dysphagia status post PEG Type 2 diabetes mellitus with CKD Acute Decompensated CHF Acute Resp Failure on Vent - Plan Plan: Lab - Result Diagrams 05/15/17 06:30 05/15/17 06:30 Current Medications Acetaminophen (Tylenol) 650 mg PO Q4HR PRN PRN Reason: Pain Or Fever above 101 Stop: 07/14/17 15:15 Last Admin: 05/15/17 16:21 Dose: 650 mg Albuterol Sulfate (Albuterol 2.5mg/3ml Neb Ud) 2.5 mg HHN Q6HRT YESSICA Stop: 07/14/17 00:59 Last Admin: 05/15/17 16:05 Dose: 2.5 mg Atorvastatin Calcium (Lipitor) 10 mg GT HS YESSICA PRN Reason: Protocol Stop: 07/14/17 20:59 Carbidopa/Levodopa (Sinemet 25mg-100 Mg) 1 tab PO TID YESSICA Stop: 07/14/17 08:59 Last Admin: 05/15/17 14:02 Dose: 1 tab Heparin Sodium (Porcine) (Heparin) 5,000 units SUBQ Q8H [facility] Stop: 07/14/17 14:59 Last Admin: 05/15/17 16:24 Dose: 5,000 units Sodium Chloride (Nacl 0.9%) 1,000 mls @ 60 mls/hr IV .[id number] [facility] Stop: 07/13/17 06:40 Last Admin: 05/14/17 17:16 Dose: 60 mls/hr Azithromycin 250 mg/ Sodium (Chloride) 250 mls @ 250 mls/hr IV Q24HR [facility] Stop: 05/20/17 08:59 Piperacillin Sod/Tazobactam (Sod 3.375 gm/ Sodium Chloride) 50 mls @ 100 mls/ hr IV Q8HR [facility] Stop: 07/14/17 15:14 Last Admin: 05/15/17 15:57 Dose: 100 mls/hr Insulin Aspart (Novolog Insulin Sliding Scale) 0 units SUBQ Q6HR [facility] PRN Reason: Protocol Stop: 07/14/17 00:00 Last Admin: 05/15/17 17:09 Dose: Not Given Insulin Detemir (Levemir Insulin) 14 units SUBQ DAILY [facility] PRN Reason: Protocol Stop: 07/15/17 08:59 Isosorbide Dinitrate (Isordil) 10 mg GT TID [facility] Stop: 07/14/17 08:59 Last Admin: 05/15/17 14:02 Dose: 10 mg Lactulose (Cephulac) 20 gm PO TID [facility] Stop: 07/14/17 08:59 Last Admin: 05/15/17 14:02 Dose: 20 gm Levetiracetam (Keppra) 250 mg NG BID [facility] Stop: 07/14/17 08:59 Last Admin: 05/15/17 16:23 Dose: 250 mg Metoprolol Tartrate (Lopressor) 37.5 mg GT BID [facility] Stop: 07/14/17 00:14 Last Admin: 05/15/17 16:22 Dose: 37.5 mg Miscellaneous (Vte Chemical Prophylaxis Screen/ Admission) 1 ea MC PRN PRN PRN Reason: PROTOCOL Stop: 07/14/17 09:25 Morphine Sulfate (Morphine) 2 mg IVP Q3H PRN PRN Reason: PAIN Stop: 07/13/17 19:46 Last Admin: 05/14/17 21:16 Dose: 2 mg Mupirocin (Bactroban Oint) 1 appl TP BID YESSICA Stop: 07/14/17 16:59 Last Admin: 05/15/17 16:24 Dose: 1 appl Pantoprazole Sodium (Protonix) 40 mg GT DAILY YESSICA Stop: 07/14/17 08:59 Last Admin: 05/15/17 08:36 Dose: 40 mg Rifaximin (Xifaxan) 550 mg GT BID YESSICA Stop: 07/14/17 08:59 Last Admin: 05/15/17 16:23 Dose: 550 mg Latest BUN/CR were 48/2.4 White count up to 11.3 on Zosyn Chest x-ray still w/ b/l infiltrates, effusions, no significant change Reviewed his meds Follow-up electrolytes currently on PPN @ 20 ml /hr, gradually taper down & increase nephro for more calories @ 35 ml/hr prognosis poor Hgb/Hct up to 9.9/28.7 scheduled for HD tomorrow Follow-up electrolytes, CBC and chest x-ray in a.m. urine nadine 800 ml BNP still elevated @ 1480 Lab - Result Diagrams 05/24/17 04:49 05/24/17 04:49 addendum: Poor response to diuretics, w/ worsening CHF, BNP level developed resp failure, required intubation worsening cardio-renal syndrome discussed w/ grandson Pedro, about poor prognosis but still want to proceed w/ dialysis Nutritional Asmnt/Malnutr-PDOC - Dietary Evaluation Malnutrition Findings (Please click <Entered> for more info): Nutritional Asmnt/Malnutrition Start: 05/15/17 13: 56 Text: Status: Complete Freq: Document 05/15/17 13:56 GSUN (Rec: 05/15/17 14:18 GSTHALIA [email or web address]) Nutritional Asmnt/Malnutrition Patient General Information Nutritional Screening High Risk Screening Diagnosis PNA, NICK, icnreasing renal failure, CVA, CHF, DM Pertinent Medical Hx/Surgical Hx CVA, dementia, afib, CAD, HTN, dyslipidemia, epilepsy, GERD, aspiration PNA, DM, CKD, dehydration, C. diff, anemia D Subjective Information 86 year old male from SNF. Pt greeted RD. Pt is overall thin , moderate to severe wasting to chest, clavicles, extremities. Observed Glytrol running at 60ml/hr x20hrs during visit. Unable to obtain CBW due to bedscale not calibrated. Discussed with YVETTE Farooq regarding tube feeding recommendations. Current Diet Order/ Nutrition Support Glytrol at 60ml/hr x 20hrs, providing 1200kcal 54g protein Pertinent Medications Lipitor, Novolog, Levemir, Cephulac, Morphine, Protonix, Nacl 0.9% Pertinent Labs 05/13: potassium 5.3H, BUN 80H, creatinine 2.4H, glucose 103 05/15: potassium WNL, BUN 70H, creatinine 2.4H, glucose 239H, A1c 6.1H, phosphorus 5.4H Nutritional Hx/Data Height 1.68 m Height (Calculated Centimeters) 167.6 Current Weight (lbs) 65.771 kg Weight (Calculated Kilograms) 65.8 Weight (Calculated Grams) 64089.9 Edgar Body Weight 142 Weight Status Approriate GI Symptoms Difficult in: Swallowing Cultural/Ethnic/M[employer]ism Belief [facility]: Glucerna 1.2 at 85ml/hr x 20hrs, providing 2040kcal, promote weight gain. Skin Integrity/Comment: Gee 12. Skin intact. Estimated Nutritional Goals Calories/Kcals/Kg CBW 145lb/65.9kg Kcals Calculated 1976-7kcal (30-35kcal/kg) Protein Calculated 46-92g (0.7-1.4g/kg, renal vs moderate to severe wasting) Fluid: ml Per MD (renal) Nutritional Problem 2. Problem Problem Impaired nutrient utilization related to Etiology NICK, hx CKD aeb Signs/Symptoms: "increasing renal failure," potaasum 5.3H on adm, BUN 70H, belting cutter 2.4H, phosphorus 5.4H 1. Problem Problem Inadequate intake from enteral nutrition infusion related to Etiology estimated nutritional needs aeb Signs/Symptoms: providing to meet 61% lower end kcal needs Intervention/Recommendation Comments 1. Recommend Novasource Renal at 50ml/hr x 20hrs, providing 2000kcal and 91g protein. Current order Glytrol at 60ml/ hr x 20hrs is only providing 1200kcal, pt recieves 2040kcal at [facility]. Expected Outcomes/Goals Expected Outcomes/Goals 1. Pt to meet at least 100% of estimated nutritional needs on tube feeding with tolerance .
--- NOTE | 2017-06-06 14:08 | General Progress Note ---
Subjective - Review of Systems Service Date: 06/06/17 Subjective: Patient seen and examined noted fever this am Objective - Results Result Diagrams: 06/06/17 05:03 06/06/17 05:03 Recent Labs: Laboratory Last Values WBC 11.3 Th/cmm (4.8-10.8) H D 06/06/17 05:03 RBC 3.44 Mil/cmm (3.80-5.80) L 06/06/17 05:03 Hgb 9.9 gm/dL (12.6-17.4) L D 06/06/17 05:03 Hct 28.7 % (39.0-49.0) L D 06/06/17 05:03 MCV 83.3 fl (80-99) 06/06/17 05:03 MCH 28.8 pg (27.0-31.0) 06/06/17 05:03 MCHC Differential 34.5 pg (28.0-36.0) 06/06/17 05:03 RDW 15.8 % (11.5-20.0) 06/06/17 05:03 Plt Count 99 Th/cmm (150-400) L 06/06/17 05:03 MPV 10.3 fl 06/06/17 05:03 Neutrophils % 72.7 % (40.0-80.0) 06/04/17 04:47 Band Neutrophils % 5 % (0-10) 06/05/17 04:42 Lymphocytes % 13.0 % (20.0-50.0) L 06/04/17 04:47 Monocytes % 13.5 % (2.0-10.0) H 06/04/17 04:47 Eosinophils % 0.6 % (0.0-5.0) 06/04/17 04:47 Basophils % 0.2 % (0.0-2.0) 06/04/17 04:47 Neutrophils (Manual) 70 % (40-80) 06/06/17 05:03 Lymphocytes 10 % (20-50) L 06/06/17 05:03 Monocytes 16 % (2-10) H 06/06/17 05:03 Eosinophils 1 % (0-5) 06/06/17 05:03 Basophils 0 % (0-3) 05/24/17 04:49 Metamyelocytes 1 % (0-0) H 06/06/17 05:03 Atypical Lymphocytes 2 % 06/06/17 05:03 Toxic Granulation 1+ 05/23/17 04:48 Platelet Estimate DECREASED PLATELETS (NORMAL) 06/06/17 05:03 Platelet Morphology GIANT PLATELETS SEEN (NORMAL) 06/06/17 05:03 Poikilocytosis 1+ 06/06/17 05:03 Anisocytosis 1+ 06/06/17 05:03 Target Cells 1+ 06/06/17 05:03 RBC Morph Micro Appear ABNORMAL (NORMAL) 06/06/17 05:03 Eos Smear Source URINE 05/14/17 18:00 Eos Smear Total Cells FEW EOSINOPHILS SEEN (NONE SEEN) 05/14/17 18:00 Plt Count 121 Th/cmm (150-750) L 06/04/17 04:47 PT 12.2 SECONDS (9.5-11.5) H 06/06/17 05:03 INR 1.16 (0.5-1.4) 06/06/17 05:03 PTT (Actin FS) 40.8 SECONDS (26.0-38.0) H 06/06/17 05:03 Fibrinogen 168.0 mg/dL (200.0-400.0) L 06/06/17 05:03 D-Dimer 581 ng/mL (100-400) H 06/04/17 04:47 Specimen Source Arterial 06/06/17 08:45 Sample Site Left Radial 06/06/17 08:45 pH 7.43 (7.35-7.45) 06/06/17 08:45 pCO2 49.0 mmHg (35.0-45.0) H 06/06/17 08:45 pO2 63.0 mmHg (80.0-100.0) L 06/06/17 08:45 HCO3 30.3 mEq/L (20.0-26.0) H 06/06/17 08:45 Base Excess 7.0 mEq/L (-3.0-3.0) H 06/06/17 08:45 O2 Saturation 92.0 % (92.0-100.0) 06/06/17 08:45 [place] Test YES 06/06/17 08:45 Vent Rate 4 06/06/17 08:45 Inspired O2 30 06/06/17 08:45 Tidal Volume 500 06/06/17 08:45 PEEP 0 06/06/17 08:45 Pressure (ins/psv/peep) 18 06/06/17 08:45 Critical Value E.MCNEAL 06/06/17 08:45 Sodium 137 mEq/L (136-145) 06/06/17 05:03 Potassium 3.7 mEq/L (3.5-5.1) 06/06/17 05:03 Chloride 102 mEq/L (98-107) 06/06/17 05:03 Carbon Dioxide 30.4 mEq/L (21.0-31.0) 06/06/17 05:03 Anion Gap 8.3 (7.0-16.0) 06/06/17 05:03 BUN 48 mg/dL (7-25) H 06/06/17 05:03 Creatinine 2.4 mg/dL (0.7-1.3) H 06/06/17 05:03 Est GFR ( Amer) TNP 06/06/17 05:03 Est GFR (Non-Af Amer) TNP 06/06/17 05:03 BUN/Creatinine Ratio 20.0 06/06/17 05:03 Glucose 159 mg/dL (70-105) H 06/06/17 05:03 POC Glucose 311 MG/DL (70 - 105) H 06/06/17 12:27 Hemoglobin A1c % 6.1 % (4.0-6.0) H 05/15/17 06:30 Plasma/Ser Osmolality 301 mOsmol/kg (280-301) 05/14/17 18:20 Whole Bld Lactic Acid 1.58 mmol/L (0.60-1.99) 05/13/17 17:42 Uric Acid 7.7 mg/dL (4.4-7.6) H 05/15/17 06:30 Calcium 8.9 mg/dL (8.6-10.3) 06/06/17 05:03 Phosphorus 2.6 mg/dL (2.5-5.0) 06/06/17 05:03 Magnesium 1.9 mg/dL (1.9-2.7) 06/06/17 05:03 Iron 70 ug/dL (38-169) 06/04/17 04:47 TIBC 94 ug/dL (250-450) L 06/04/17 04:47 Iron Saturation 74 % (15-55) H 06/04/17 04:47 Unsaturated IBC 24 ug/dL (111-343) L 06/04/17 04:47 Ferritin 351 ng/mL (30-400) 06/03/17 04:48 Total Bilirubin 4.7 mg/dL (0.3-1.0) H 06/06/17 05:03 Direct Bilirubin 0.09 mg/dL (0.0-0.2) 05/19/17 04:50 AST 100 U/L (13-39) H 06/06/17 05:03 ALT 11 U/L (7-52) 06/06/17 05:03 Alkaline Phosphatase 1199 U/L (34-104) H 06/06/17 05:03 Ammonia 65 umol/L (16-53) H 05/19/17 04:50 Creatine Kinase 35 U/L (30-223) 05/16/17 23:06 Troponin I 0.02 ng/mL (0.01-0.05) 05/16/17 23:06 B-Natriuretic Peptide 1480.0 pg/mL (5.0-100.0) H 06/05/17 04:42 Total Protein 6.0 gm/dL (6.0-8.3) 06/06/17 05:03 Albumin 3.1 gm/dL (4.2-5.5) L 06/06/17 05:03 Globulin 2.9 gm/dL 06/06/17 05:03 Albumin/Globulin Ratio 1.1 (1.0-1.8) 06/06/17 05:03 Prealbumin 6 mg/dL (9-32) L 06/04/17 04:47 Triglycerides 60 mg/dL (<150) 06/04/17 04:47 Cholesterol 63 mg/dL (<200) 06/04/17 04:47 Vitamin B12 >1999 pg/mL (211-946) H 06/04/17 04:47 Folic Acid >20.0 ng/mL (>3.0) 06/04/17 04:47 TSH 2.74 uIU/ml (0.34-5.60) 05/15/17 06:30 Urine Source CATH 06/06/17 10:30 Urine Color YELLOW 06/06/17 10:30 Urine Clarity SL. CLOUDY (CLEAR) 06/06/17 10:30 Urine pH 5.0 (4.6 - 8.0) 06/06/17 10:30 Ur Specific [place] 1.025 (1.005-1.030) 06/06/17 10:30 Urine Protein 100 mg/dL (NEGATIVE) H 06/06/17 10:30 Urine Glucose (UA) NEGATIVE mg/dL (NEGATIVE) 06/06/17 10:30 Urine Ketones NEGATIVE mg/dL (NEGATIVE) 06/06/17 10:30 Urine Blood LARGE (NEGATIVE) H 06/06/17 10:30 Urine Nitrate NEGATIVE (NEGATIVE) 06/06/17 10:30 Urine Bilirubin SMALL (NEGATIVE) H 06/06/17 10:30 Urine Urobilinogen 0.2 E.U./dL (0.2 - 1.0) 06/06/17 10:30 Ur Leukocyte Esterase LARGE (NEGATIVE) H 06/06/17 10:30 Urine RBC 20-30 /hpf (0-5) 06/06/17 10:30 Urine WBC 10-25 /hpf (0-5) H 06/06/17 10:30 Ur Epithelial Cells RARE /lpf (FEW) 06/06/17 10:30 Urine Bacteria f /hpf (NONE SEEN) 06/06/17 10:30 Urine Yeast MODERATE /hpf (NONE SEEN) H 06/06/17 10:30 Ur Random Sodium 30 mmol/L 05/14/17 18:00 Urine Creatinine 36.4 mg/dl (Not Estab.) 05/14/17 18:00 Urine Microalbumin 363.5 ug/mL (Not Estab.) 05/14/17 18:00 Microalb/Creat Ratio 998.6 mg/g creat (0.0-30.0) H 05/14/17 18:00 Stool Occult Blood NEGATIVE (NEGATIVE) 05/25/17 17:49 Random Vancomycin 19.1 ug/mL (5.0-40.0) 05/19/17 04:50 Hepatitis A IgM Ab Negative (Negative) 05/21/17 04:46 Hep Bs Antigen Negative (Negative) 05/21/17 04:46 Hep B Core IgM Ab Negative (Negative) 05/21/17 04:46 Hepatitis C Antibody 0.1 s/co ratio (0.0-0.9) 05/21/17 04:46 Blood Type B POSITIVE 06/04/17 04:47 Antibody Screen NEGATIVE 06/04/17 04:47 Crossmatch See Detail 05/21/17 10:19 - Physical Exam Vitals and I&O: Vital Signs Temp 98.6 F 06/06/17 13:00 Pulse 96 06/06/17 13:00 Resp 20 06/06/17 13:00 BP 96/50 06/06/17 13:00 Pulse Ox 100 06/06/17 13:00 Intake & Output 06/05/17 06/06/17 06/06/17 18:59 06:59 18:59 Intake Total 2011.333 Output Total 210 2450 Balance 1801.333 -2450 Weight (lbs) 66.451 kg 66.451 kg Intake: Intake, IV Amount 881.333 Multivitamin Inj 10 ml In 881.333 Dextrose 70% 250 ml In Amino Acids 10% 500 ml In Intralipids 20% 200 ml @ 40 mls/hr IV .Q24H [facility] Rx#:[id number] Tube Feeding 200 TPN/PPN 480 Blood Product 250 Other 200 Output: Urine 210 Hemodialysis 2450 Other: # Bowel Movements 1 Stool Characteristics Soft Liquid Active Medications: Current Medications Acetaminophen (Tylenol) 650 mg PO Q4HR PRN PRN Reason: Pain Or Fever above 101 Stop: 07/14/17 15:15 Last Admin: 06/06/17 08:50 Dose: 650 mg Albuterol/Ipratropium (Duoneb Neb) 3 ml HHN Q4HRT [facility] Stop: 07/19/17 14:59 Last Admin: 06/06/17 12:33 Dose: 3 ml Budesonide (Pulmicort) 1 mg HHN BIDRT [facility] Stop: 07/19/17 18:59 Last Admin: 06/06/17 07:14 Dose: 1 mg Calamine/Phenol (Calmoseptine) 1 appl TP QID PRN PRN Reason: Skin Irritation Stop: 08/03/17 12:28 Last Admin: 06/05/17 20:33 Dose: 1 appl Calamine/Phenol (Calmoseptine) 1 appl TP QID [facility] Stop: 08/03/17 12:59 Last Admin: 06/06/17 09:35 Dose: 1 appl Carbidopa/Levodopa (Sinemet 25mg-100 Mg) 1 tab PO TID [facility] Stop: 07/14/17 08:59 Last Admin: 06/06/17 09:35 Dose: 1 tab Chlorhexidine Gluconate (Peridex) 15 ml MM 0800,1999 [facility] Stop: 07/23/17 19:59 Last Admin: 06/06/17 09:30 Dose: 15 ml Clonidine HCl (Catapres) 0.1 mg PO Q6HR PRN PRN Reason: BP MAINTENANCE (PER PROTOCOL) Stop: 07/28/17 13:31 Last Admin: 05/29/17 21:04 Dose: 0.1 mg Colistimethate Sodium (Colistin) 75 mg HHN BIDRT [facility] Stop: 07/30/17 18:59 Last Admin: 06/06/17 07:14 Dose: 75 mg Dextrose (D50w) 50 ml IVP PRN PRN; Protocol PRN Reason: HYPOGLYCEMIA Stop: 07/20/17 00:54 Last Admin: 05/22/17 23:34 Dose: 50 ml Diltiazem HCl (Cardizem) 10 mg IVP Q6HR PRN PRN Reason: HR >130 Stop: 07/22/17 17:09 Last Admin: 05/24/17 04:21 Dose: 10 mg Furosemide (Lasix) 40 mg IVP DAILY [facility] Stop: 07/18/17 08:59 Last Admin: 06/06/17 10:18 Dose: 40 mg Hydralazine HCl (Apresoline 20 Mg/Ml) 10 mg IV Q6HR PRN PRN Reason: BP MAINTENANCE (PER PROTOCOL) Stop: 07/30/17 13:09 Last Admin: 06/06/17 12:30 Dose: 10 mg Norepinephrine Bitartrate 8 mg (/ Dextrose) 258 mls @ 0 mls/hr IV TITR PRN; Protocol; Titrate PRN Reason: BP MAINTENANCE (PER PROTOCOL) Stop: 07/19/17 12:29 Last Admin: 05/21/17 01:06 Dose: 10 mcg/min, 19.35 mls/hr Phenylephrine HCl 10 mg/ (Sodium Chloride) 250 mls @ 0 mls/hr IV TITR YESSICA; Per Protocol PRN Reason: Protocol Stop: 07/19/17 12:59 Multivitamins/Minerals 10 ml/Dextrose/ Amino Acids/Electrolytes/ Fat Emulsion Intravenous 960 mls @ 40 mls/hr IV .Q24H [facility] Stop: 08/01/17 14:59 Last Admin: 06/05/17 15:34 Dose: 40 mls/hr Piperacillin Sod/Tazobactam (Sod 2.25 gm/ Sodium Chloride) 50 mls @ 100 mls/hr IV Q6HR [facility] Stop: 08/05/17 11:59 Last Admin: 06/06/17 12:00 Dose: 100 mls/hr Albumin Human (Albuminar 25%) 25 gm in 100 mls @ 50 mls/hr IV X1 ONE Stop: 06/07/17 14:14 Albumin Human (Albuminar 25%) 25 gm in 100 mls @ 50 mls/hr IV X1 ONE Stop: 06/07/17 14:15 Insulin Aspart (Novolog Insulin Sliding Scale) 0 units SUBQ Q6HR [facility] PRN Reason: Protocol Stop: 07/14/17 00:00 Last Admin: 06/06/17 12:28 Dose: 4 units Isosorbide Dinitrate (Isordil) 20 mg GT TID [facility] Stop: 07/28/17 13:33 Last Admin: 06/06/17 09:30 Dose: 20 mg Lactobacillus Rhamnosus (Culturelle) 1 each PO DAILY [facility] Stop: 07/17/17 08:59 Last Admin: 06/06/17 09:35 Dose: 1 each Levetiracetam (Keppra) 250 mg NG BID [facility] Stop: 07/14/17 08:59 Last Admin: 06/06/17 09:35 Dose: 250 mg Metoclopramide HCl (Reglan) 5 mg IVP TID [facility] Stop: 07/20/17 20:59 Last Admin: 06/06/17 09:35 Dose: 5 mg Metoprolol Tartrate (Lopressor) 50 mg GT Q8H [facility] Stop: 07/18/17 08:59 Last Admin: 06/06/17 09:15 Dose: 50 mg Miscellaneous (Vte Chemical Prophylaxis Screen/ Admission) 1 ea MC PRN PRN PRN Reason: PROTOCOL Stop: 07/14/17 09:25 Miscellaneous (Clinical Monitoring) 1 ea MC DAILY PRN PRN Reason: RENAL Stop: 07/15/17 12:32 Miscellaneous (Probiotic Screen) 1 ea MC PRN PRN PRN Reason: PROTOCOL Stop: 07/16/17 09:33 Pantoprazole Sodium (Protonix) 40 mg GT DAILY [facility] Stop: 07/14/17 08:59 Last Admin: 06/06/17 10:06 Dose: 40 mg General: No acute distress, no Alert HEENT: Atraumatic Lungs: Other (ronchi bilaterally) Abdomen: Soft, no Tender Neurological: Other (opens eyes upon verbal command) Skin: no Rash Psych/Mental Status: Mood NL - Procedures Procedures: Procedures Procedure Code Date INSERT EMERGENCY AIRWAY 01349 05/13/17 INSERT TUNNELED CV CATH 12603 05/13/17 INSERTION OF ENDOTRACHEAL AIRWAY INTO TRACHEA, VIA OPENING [id number] 05/13/17 INSERTION OF INFUSION DEV INTO R FEMOR VEIN, PERC APPROACH [id number] 05/13/17 RESPIRATORY VENTILATION, GREATER THAN 96 CONSECUTIVE HOURS [id number] 05/13/17 VENT MGMT INPAT INIT DAY 49177 05/13/17 Assessment/Plan - Problem List Patient Problems: All Active Problems COUGH AND CONGESTION (Acute) Congestive heart failure (CHF) (Acute) I50.9 congestive heart failure (Acute) hypertension uncontrolled with bradycarda (Acute) renal failure (Acute) - Assessment Assessment: Current Active Problems Problem Status Onset COUGH AND CONGESTION Acute New fever r/o developing sepsis Zosyn started per ID Acute respiratory failure vent dependant Renal failure improving on HD MDRO Pneumonia improving Afib RVR UTI CAD DIC 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 They both agreed with LTAC DC planning. Discussed with SW LTAC DC planning in progress They also agreed with TRACH placement understanding patienet failed weaning trials Surgery consulted. patient noted to have elevated Liver enzymes. GI consulted case discussed with GI. US ABD pending off statin Heparin sub Q Cardizem iv prn Metoprolol Colistin per ID rec HD per nephrology rec Continue vent support PPN started for nutritional support tube feeding Plan of care discussed with nursing staff Nutritional Asmnt/Malnutr-PDOC - Dietary Evaluation Malnutrition Findings (Please click <Entered> for more info): Nutritional Asmnt/Malnutrition Start: 05/15/17 13: 56 Text: Status: Complete Freq: Document 05/15/17 13:56 GSUN (Rec: 05/15/17 14:18 GSUN [id number]) Nutritional Asmnt/Malnutrition Patient General Information Nutritional Screening High Risk Screening Diagnosis PNA, NICK, icnreasing renal failure, CVA, CHF, DM Pertinent Medical Hx/Surgical Hx CVA, dementia, afib, CAD, HTN, dyslipidemia, epilepsy, GERD, aspiration PNA, DM, CKD, dehydration, C. diff, anemia D Subjective Information 86 year old male from SNF. Pt greeted RD. Pt is overall thin , moderate to severe wasting to chest, clavicles, extremities. Observed Glytrol running at 60ml/hr x20hrs during visit. Unable to obtain CBW due to bedscale not calibrated. Discussed with YVETTE Farooq regarding tube feeding recommendations. Current Diet Order/ Nutrition Support Glytrol at 60ml/hr x 20hrs, providing 1200kcal 54g protein Pertinent Medications Lipitor, Novolog, Levemir, Cephulac, Morphine, Protonix, Nacl 0.9% Pertinent Labs 05/13: potassium 5.3H, BUN 80H, creatinine 2.4H, glucose 103 05/15: potassium WNL, BUN 70H, creatinine 2.4H, glucose 239H, A1c 6.1H, phosphorus 5.4H Nutritional Hx/Data Height 1.68 m Height (Calculated Centimeters) 167.6 Current Weight (lbs) 65.771 kg Weight (Calculated Kilograms) 65.8 Weight (Calculated Grams) 39652.9 [place] Body Weight 142 Weight Status Approriate GI Symptoms Difficult in: Swallowing Cultural/Ethnic/[employer] Belief [facility]: Glucerna 1.2 at 85ml/hr x 20hrs, providing 2040kcal, promote weight gain. Skin Integrity/Comment: Gee 12. Skin intact. Estimated Nutritional Goals Calories/Kcals/Kg CBW 145lb/65.9kg Kcals Calculated 1976-7kcal (30-35kcal/kg) Protein Calculated 46-92g (0.7-1.4g/kg, renal vs moderate to severe wasting) Fluid: ml Per MD (renal) Nutritional Problem 2. 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 Problem Problem Inadequate intake from enteral nutrition infusion related to Etiology estimated nutritional needs aeb Signs/Symptoms: providing to meet 61% lower end kcal needs Intervention/Recommendation Comments 1. Recommend Novasource Renal at 50ml/hr x 20hrs, providing 2000kcal and 91g protein. Current order Glytrol at 60ml/ hr x 20hrs is only providing 1200kcal, pt recieves 2040kcal at [facility]. Expected Outcomes/Goals Expected Outcomes/Goals 1. Pt to meet at least 100% of estimated nutritional needs on tube feeding with tolerance .
--- NOTE | 2017-06-06 14:47 | General Progress Note ---
Subjective - Review of Systems Service Date: 06/06/17 Events since last encounter: request for trach. discussed with son via phone will schedule for 06/09/17 Objective - Results Result Diagrams: 06/06/17 05:03 06/06/17 05:03 Recent Labs: Laboratory Last Values WBC 11.3 Th/cmm (4.8-10.8) H D 06/06/17 05:03 RBC 3.44 Mil/cmm (3.80-5.80) L 06/06/17 05:03 Hgb 9.9 gm/dL (12.6-17.4) L D 06/06/17 05:03 Hct 28.7 % (39.0-49.0) L D 06/06/17 05:03 MCV 83.3 fl (80-99) 06/06/17 05:03 MCH 28.8 pg (27.0-31.0) 06/06/17 05:03 MCHC Differential 34.5 pg (28.0-36.0) 06/06/17 05:03 RDW 15.8 % (11.5-20.0) 06/06/17 05:03 Plt Count 99 Th/cmm (150-400) L 06/06/17 05:03 MPV 10.3 fl 06/06/17 05:03 Neutrophils % 72.7 % (40.0-80.0) 06/04/17 04:47 Band Neutrophils % 5 % (0-10) 06/05/17 04:42 Lymphocytes % 13.0 % (20.0-50.0) L 06/04/17 04:47 Monocytes % 13.5 % (2.0-10.0) H 06/04/17 04:47 Eosinophils % 0.6 % (0.0-5.0) 06/04/17 04:47 Basophils % 0.2 % (0.0-2.0) 06/04/17 04:47 Neutrophils (Manual) 70 % (40-80) 06/06/17 05:03 Lymphocytes 10 % (20-50) L 06/06/17 05:03 Monocytes 16 % (2-10) H 06/06/17 05:03 Eosinophils 1 % (0-5) 06/06/17 05:03 Basophils 0 % (0-3) 05/24/17 04:49 Metamyelocytes 1 % (0-0) H 06/06/17 05:03 Atypical Lymphocytes 2 % 06/06/17 05:03 Toxic Granulation 1+ 05/23/17 04:48 Platelet Estimate DECREASED PLATELETS (NORMAL) 06/06/17 05:03 Platelet Morphology GIANT PLATELETS SEEN (NORMAL) 06/06/17 05:03 Poikilocytosis 1+ 06/06/17 05:03 Anisocytosis 1+ 06/06/17 05:03 Target Cells 1+ 06/06/17 05:03 RBC Morph Micro Appear ABNORMAL (NORMAL) 06/06/17 05:03 Eos Smear Source URINE 05/14/17 18:00 Eos Smear Total Cells FEW EOSINOPHILS SEEN (NONE SEEN) 05/14/17 18:00 Plt Count 121 Th/cmm (150-750) L 06/04/17 04:47 PT 12.2 SECONDS (9.5-11.5) H 06/06/17 05:03 INR 1.16 (0.5-1.4) 06/06/17 05:03 PTT (Actin FS) 40.8 SECONDS (26.0-38.0) H 06/06/17 05:03 Fibrinogen 168.0 mg/dL (200.0-400.0) L 06/06/17 05:03 D-Dimer 581 ng/mL (100-400) H 06/04/17 04:47 Specimen Source Arterial 06/06/17 08:45 Sample Site Left Radial 06/06/17 08:45 pH 7.43 (7.35-7.45) 06/06/17 08:45 pCO2 49.0 mmHg (35.0-45.0) H 06/06/17 08:45 pO2 63.0 mmHg (80.0-100.0) L 06/06/17 08:45 HCO3 30.3 mEq/L (20.0-26.0) H 06/06/17 08:45 Base Excess 7.0 mEq/L (-3.0-3.0) H 06/06/17 08:45 O2 Saturation 92.0 % (92.0-100.0) 06/06/17 08:45 [place] Test YES 06/06/17 08:45 Vent Rate 4 06/06/17 08:45 Inspired O2 30 06/06/17 08:45 Tidal Volume 500 08/04/17 08:45 PEEP 0 06/06/17 08:45 Pressure (ins/psv/peep) 18 06/06/17 08:45 Critical Value E.MCNEAL 06/06/17 08:45 Sodium 137 mEq/L (136-145) 06/06/17 05:03 Potassium 3.7 mEq/L (3.5-5.1) 06/06/17 05:03 Chloride 102 mEq/L (98-107) 06/06/17 05:03 Carbon Dioxide 30.4 mEq/L (21.0-31.0) 06/06/17 05:03 Anion Gap 8.3 (7.0-16.0) 06/06/17 05:03 BUN 48 mg/dL (7-25) H 06/06/17 05:03 Creatinine 2.4 mg/dL (0.7-1.3) H 06/06/17 05:03 Est GFR ( Amer) TNP 06/06/17 05:03 Est GFR (Non-Af Amer) TNP 06/06/17 05:03 BUN/Creatinine Ratio 20.0 06/06/17 05:03 Glucose 159 mg/dL (70-105) H 06/06/17 05:03 POC Glucose 311 MG/DL (70 - 105) H 06/06/17 12:27 Hemoglobin A1c % 6.1 % (4.0-6.0) H 05/15/17 06:30 Plasma/Ser Osmolality 301 mOsmol/kg (280-301) 05/14/17 18:20 Whole Bld Lactic Acid 1.58 mmol/L (0.60-1.99) 05/13/17 17:42 Uric Acid 7.7 mg/dL (4.4-7.6) H 05/15/17 06:30 Calcium 8.9 mg/dL (8.6-10.3) 06/06/17 05:03 Phosphorus 2.6 mg/dL (2.5-5.0) 06/06/17 05:03 Magnesium 1.9 mg/dL (1.9-2.7) 06/06/17 05:03 Iron 70 ug/dL (38-169) 06/04/17 04:47 TIBC 94 ug/dL (250-450) L 06/04/17 04:47 Iron Saturation 74 % (15-55) H 06/04/17 04:47 Unsaturated IBC 24 ug/dL (111-343) L 06/04/17 04:47 Ferritin 351 ng/mL (30-400) 06/03/17 04:48 Total Bilirubin 4.7 mg/dL (0.3-1.0) H 06/06/17 05:03 Direct Bilirubin 0.09 mg/dL (0.0-0.2) 05/19/17 04:50 AST 100 U/L (13-39) H 06/06/17 05:03 ALT 11 U/L (7-52) 06/06/17 05:03 Alkaline Phosphatase 1199 U/L (34-104) H 06/06/17 05:03 Ammonia 65 umol/L (16-53) H 05/19/17 04:50 Creatine Kinase 35 U/L (30-223) 05/16/17 23:06 Troponin I 0.02 ng/mL (0.01-0.05) 05/16/17 23:06 B-Natriuretic Peptide 1480.0 pg/mL (5.0-100.0) H 06/05/17 04:42 Total Protein 6.0 gm/dL (6.0-8.3) 06/06/17 05:03 Albumin 3.1 gm/dL (4.2-5.5) L 06/06/17 05:03 Globulin 2.9 gm/dL 06/06/17 05:03 Albumin/Globulin Ratio 1.1 (1.0-1.8) 06/06/17 05:03 Prealbumin 6 mg/dL (9-32) L 06/04/17 04:47 Triglycerides 60 mg/dL (<150) 06/04/17 04:47 Cholesterol 63 mg/dL (<200) 06/04/17 04:47 Vitamin B12 >1999 pg/mL (211-946) H 06/04/17 04:47 Folic Acid >20.0 ng/mL (>3.0) 06/04/17 04:47 TSH 2.74 uIU/ml (0.34-5.60) 05/15/17 06:30 Urine Source CATH 06/06/17 10:30 Urine Color YELLOW 06/06/17 10:30 Urine Clarity SL. CLOUDY (CLEAR) 06/06/17 10:30 Urine pH 5.0 (4.6 - 8.0) 06/06/17 10:30 Ur Specific [place] 1.025 (1.005-1.030) 06/06/17 10:30 Urine Protein 100 mg/dL (NEGATIVE) H 06/06/17 10:30 Urine Glucose (UA) NEGATIVE mg/dL (NEGATIVE) 06/06/17 10:30 Urine Ketones NEGATIVE mg/dL (NEGATIVE) 06/06/17 10:30 Urine Blood LARGE (NEGATIVE) H 06/06/17 10:30 Urine Nitrate NEGATIVE (NEGATIVE) 06/06/17 10:30 Urine Bilirubin SMALL (NEGATIVE) H 06/06/17 10:30 Urine Urobilinogen 0.2 E.U./dL (0.2 - 1.0) 06/06/17 10:30 Ur Leukocyte Esterase LARGE (NEGATIVE) H 06/06/17 10:30 Urine RBC 20-30 /hpf (0-5) 06/06/17 10:30 Urine WBC 10-25 /hpf (0-5) H 06/06/17 10:30 Ur Epithelial Cells RARE /lpf (FEW) 06/06/17 10:30 Urine Bacteria f /hpf (NONE SEEN) 06/06/17 10:30 Urine Yeast MODERATE /hpf (NONE SEEN) H 06/06/17 10:30 Ur Random Sodium 30 mmol/L 05/14/17 18:00 Urine Creatinine 36.4 mg/dl (Not Estab.) 05/14/17 18:00 Urine Microalbumin 363.5 ug/mL (Not Estab.) 05/14/17 18:00 Microalb/Creat Ratio 998.6 mg/g creat (0.0-30.0) H 05/14/17 18:00 Stool Occult Blood NEGATIVE (NEGATIVE) 05/25/17 17:49 Random Vancomycin 19.1 ug/mL (5.0-40.0) 05/19/17 04:50 Hepatitis A IgM Ab Negative (Negative) 05/21/17 04:46 Hep Bs Antigen Negative (Negative) 05/21/17 04:46 Hep B Core IgM Ab Negative (Negative) 05/21/17 04:46 Hepatitis C Antibody 0.1 s/co ratio (0.0-0.9) 05/21/17 04:46 Blood Type B POSITIVE 06/04/17 04:47 Antibody Screen NEGATIVE 06/04/17 04:47 Crossmatch See Detail 05/21/17 10:19 - Physical Exam Vitals and I&O: Vital Signs Temp 98.6 F 06/06/17 13:00 Pulse 96 06/06/17 13:00 Resp 20 06/06/17 13:00 BP 96/50 06/06/17 13:00 Pulse Ox 100 06/06/17 13:00 Intake & Output 06/05/17 06/06/17 06/06/17 18:59 06:59 18:59 Intake Total 2011.333 Output Total 210 2450 Balance 1801.333 -2450 Weight (lbs) 66.451 kg 66.451 kg Intake: Intake, IV Amount 881.333 Multivitamin Inj 10 ml In 881.333 Dextrose 70% 250 ml In Amino Acids 10% 500 ml In Intralipids 20% 200 ml @ 40 mls/hr IV .Q24H [facility] Rx#:[id number] Tube Feeding 200 TPN/PPN 480 Blood Product 250 Other 200 Output: Urine 210 Hemodialysis 2450 Other: # Bowel Movements 1 Stool Characteristics Soft Liquid Active Medications: Current Medications Acetaminophen (Tylenol) 650 mg PO Q4HR PRN PRN Reason: Pain Or Fever above 101 Stop: 07/14/17 15:15 Last Admin: 06/06/17 08:50 Dose: 650 mg Albuterol/Ipratropium (Duoneb Neb) 3 ml HHN Q4HRT [facility] Stop: 07/19/17 14:59 Last Admin: 06/06/17 12:33 Dose: 3 ml Budesonide (Pulmicort) 1 mg HHN BIDRT [facility] Stop: 07/19/17 18:59 Last Admin: 06/06/17 07:14 Dose: 1 mg Calamine/Phenol (Calmoseptine) 1 appl TP QID PRN PRN Reason: Skin Irritation Stop: 08/03/17 12:28 Last Admin: 06/05/17 20:33 Dose: 1 appl Calamine/Phenol (Calmoseptine) 1 appl TP QID [facility] Stop: 08/03/17 12:59 Last Admin: 06/06/17 09:35 Dose: 1 appl Carbidopa/Levodopa (Sinemet 25mg-100 Mg) 1 tab PO TID YESSICA Stop: 07/14/17 08:59 Last Admin: 06/06/17 09:35 Dose: 1 tab Chlorhexidine Gluconate (Peridex) 15 ml MM 0800,2000 [facility] Stop: 07/23/17 19:59 Last Admin: 06/06/17 09:30 Dose: 15 ml Clonidine HCl (Catapres) 0.1 mg PO Q6HR PRN PRN Reason: BP MAINTENANCE (PER PROTOCOL) Stop: 07/28/17 13:31 Last Admin: 05/29/17 21:04 Dose: 0.1 mg Colistimethate Sodium (Colistin) 75 mg HHN BIDRT YESSICA Stop: 07/30/17 18:59 Last Admin: 06/06/17 07:14 Dose: 75 mg Dextrose (D50w) 50 ml IVP PRN PRN; Protocol PRN Reason: HYPOGLYCEMIA Stop: 07/20/17 00:54 Last Admin: 05/22/17 23:34 Dose: 50 ml Diltiazem HCl (Cardizem) 10 mg IVP Q6HR PRN PRN Reason: HR >130 Stop: 07/22/17 17:09 Last Admin: 05/24/17 04:21 Dose: 10 mg Furosemide (Lasix) 40 mg IVP DAILY [facility] Stop: 07/18/17 08:59 Last Admin: 06/06/17 10:18 Dose: 40 mg Hydralazine HCl (Apresoline 20 Mg/Ml) 10 mg IV Q6HR PRN PRN Reason: BP MAINTENANCE (PER PROTOCOL) Stop: 07/30/17 13:09 Last Admin: 06/06/17 12:30 Dose: 10 mg Norepinephrine Bitartrate 8 mg (/ Dextrose) 258 mls @ 0 mls/hr IV TITR PRN; Protocol; Titrate PRN Reason: BP MAINTENANCE (PER PROTOCOL) Stop: 07/19/17 12:29 Last Admin: 05/21/17 01:06 Dose: 10 mcg/min, 19.35 mls/hr Phenylephrine HCl 10 mg/ (Sodium Chloride) 250 mls @ 0 mls/hr IV TITR YESSICA; Per Protocol PRN Reason: Protocol Stop: 07/19/17 12:59 Piperacillin Sod/Tazobactam (Sod 2.25 gm/ Sodium Chloride) 50 mls @ 100 mls/hr IV Q6HR YESSICA Stop: 08/05/17 11:59 Last Admin: 06/06/17 12:00 Dose: 100 mls/hr Albumin Human (Albuminar 25%) 25 gm in 100 mls @ 50 mls/hr IV X1 ONE Stop: 06/07/17 14:14 Albumin Human (Albuminar 25%) 25 gm in 100 mls @ 50 mls/hr IV X1 ONE Stop: 06/07/17 14:15 Insulin Aspart (Novolog Insulin Sliding Scale) 0 units SUBQ Q6HR YESSICA PRN Reason: Protocol Stop: 07/14/17 00:00 Last Admin: 06/06/17 12:28 Dose: 4 units Isosorbide Dinitrate (Isordil) 20 mg GT TID [facility] Stop: 07/28/17 13:33 Last Admin: 06/06/17 09:30 Dose: 20 mg Lactobacillus Rhamnosus (Culturelle) 1 each PO DAILY [facility] Stop: 07/17/17 08:59 Last Admin: 06/06/17 09:35 Dose: 1 each Levetiracetam (Keppra) 250 mg NG BID [facility] Stop: 07/14/17 08:59 Last Admin: 06/06/17 09:35 Dose: 250 mg Metoclopramide HCl (Reglan) 5 mg IVP TID [facility] Stop: 07/20/17 20:59 Last Admin: 06/06/17 09:35 Dose: 5 mg Metoprolol Tartrate (Lopressor) 50 mg GT Q8H [facility] Stop: 07/18/17 08:59 Last Admin: 06/06/17 09:15 Dose: 50 mg Miscellaneous (Vte Chemical Prophylaxis Screen/ Admission) 1 ea PRN PRN PRN Reason: PROTOCOL Stop: 07/14/17 09:25 Miscellaneous (Clinical Monitoring) 1 ea MC DAILY PRN PRN Reason: RENAL Stop: 07/15/17 12:32 Miscellaneous (Probiotic Screen) 1 ea PRN PRN PRN Reason: PROTOCOL Stop: 07/16/17 09:33 Pantoprazole Sodium (Protonix) 40 mg GT DAILY [facility] Stop: 07/14/17 08:59 Last Admin: 06/06/17 10:06 Dose: 40 mg General: No acute distress, no Alert HEENT: Atraumatic Neck: Supple, +2 carotid pulse wo bruit Cardiovascular: Regular rate, Normal S1, Normal S2 Lungs: Other (ronchi bilaterally) Abdomen: Soft, no Tender Extremities: no Edema (no edema) Neurological: Other (opens eyes upon verbal command) Skin: no Rash Psych/Mental Status: Mood NL - Procedures Procedures: Procedures Procedure Code Date INSERT EMERGENCY AIRWAY 04814 05/13/17 INSERT TUNNELED CV CATH 56188 05/13/17 INSERTION OF ENDOTRACHEAL AIRWAY INTO TRACHEA, VIA OPENING [id number] 05/13/17 INSERTION OF INFUSION DEV INTO R FEMOR VEIN, PERC APPROACH [id number] 05/13/17 RESPIRATORY VENTILATION, GREATER THAN 96 CONSECUTIVE HOURS [id number] 05/13/17 VENT MGMT INPAT INIT DAY 19045 05/13/17 Assessment/Plan - Problem List Patient Problems: All Active Problems COUGH AND CONGESTION (Acute) Congestive heart failure (CHF) (Acute) I50.9 congestive heart failure (Acute) hypertension uncontrolled with bradycarda (Acute) renal failure (Acute) Nutritional Asmnt/Malnutr-PDOC - Dietary Evaluation Malnutrition Findings (Please click <Entered> for more info): Nutritional Asmnt/Malnutrition Start: 05/15/17 13: 56 Text: Status: Complete Freq: Document 05/15/17 13:56 GSUN (Rec: 05/15/17 14:18 GSUN [id number]) Nutritional Asmnt/Malnutrition Patient General Information Nutritional Screening High Risk Screening Diagnosis PNA, NICK, icnreasing renal failure, CVA, CHF, DM Pertinent Medical Hx/Surgical Hx CVA, dementia, afib, CAD, HTN, dyslipidemia, epilepsy, GERD, aspiration PNA, DM, CKD, dehydration, C. diff, anemia D Subjective Information 86 year old male from SNF. Pt greeted RD. Pt is overall thin , moderate to severe wasting to chest, clavicles, extremities. Observed Glytrol running at 60ml/hr x20hrs during visit. Unable to obtain CBW due to bedscale not calibrated. Discussed with YVETTE Farooq regarding tube feeding recommendations. Current Diet Order/ Nutrition Support Glytrol at 60ml/hr x 20hrs, providing 1200kcal 54g protein Pertinent Medications Lipitor, Novolog, Levemir, Cephulac, Morphine, Protonix, Nacl 0.9% Pertinent Labs 05/13: potassium 5.3H, BUN 80H, creatinine 2.4H, glucose 103 7/13: potassium WNL, BUN 70H, creatinine 2.4H, glucose 239H, A1c 6.1H, phosphorus 5.4H Nutritional Hx/Data Height 1.68 m Height (Calculated Centimeters) 167.6 Current Weight (lbs) 65.771 kg Weight (Calculated Kilograms) 65.8 Weight (Calculated Grams) 16361.9 [place] Body Weight 142 Weight Status Approriate GI Symptoms Difficult in: Swallowing Cultural/Ethnic/[employer] Belief [facility]: Glucerna 1.2 at 85ml/hr x 20hrs, providing 2040kcal, promote weight gain. Skin Integrity/Comment: Gee 12. Skin intact. Estimated Nutritional Goals Calories/Kcals/Kg CBW 145lb/65.9kg Kcals Calculated 1976-2307kcal (30-35kcal/kg) Protein Calculated 46-92g (0.7-1.4g/kg, renal vs moderate to severe wasting) Fluid: ml Per MD (renal) Nutritional Problem 2. Problem Problem Impaired nutrient utilization related to Etiology NICK, hx CKD aeb Signs/Symptoms: "increasing renal failure," potaasum 5.3H on adm, BUN 70H, potato peeler 2.4H, phosphorus 5.4H 1. Problem Problem Inadequate intake from enteral nutrition infusion related to Etiology estimated nutritional needs aeb Signs/Symptoms: providing to meet 61% lower end kcal needs Intervention/Recommendation Comments 1. Recommend Novasource Renal at 50ml/hr x 20hrs, providing 2000kcal and 91g protein. Current order Glytrol at 60ml/ hr x 20hrs is only providing 1200kcal, pt recieves 2040kcal at [facility]. Expected Outcomes/Goals Expected Outcomes/Goals 1. Pt to meet at least 100% of estimated nutritional needs on tube feeding with tolerance .
--- NOTE | 2017-06-06 14:55 | Consultation ---
DATE OF CONSULTATION: 06/06/2017 REQUESTING PHYSICIAN: Eyad Montano M.D. REASON FOR CONSULTATION: Abnormal liver enzymes. HISTORY OF PRESENT ILLNESS: This 86-year-old male with history of old stroke and dysphagia status post G-tube insertion, now with aspiration pneumonia and respiratory failure, on ventilator. He was placed on TPN for the last 2 weeks. He is tolerating his G-tube feedings well now. We were asked to evaluate the patient for elevation of liver enzymes. Further history is obtained from medical chart, computer records and daughter present at bedside. The patient has no previous history of liver disease. He is a nonsmoker, nondrinker. PAST MEDICAL HISTORY: As above, also notable for diabetes mellitus, acute kidney injury, history of C. diff colitis, UTI, anemia, atrial fibrillation, pneumonia. ALLERGIES: None. MEDICATIONS: Here are Tylenol, IV albumin, DuoNeb nebulizer, Pulmicort, Sinemet, Cardizem, Lasix, hydralazine, insulin sliding scale, Isordil, Culturelle, Keppra, Reglan, Lopressor, probiotics, TPN, Protonix, and atorvastatin. SOCIAL HISTORY: No known tobacco, alcohol or drugs. FAMILY HISTORY: Noncontributory. REVIEW OF SYSTEMS: A comprehensive 12-point review of system was conducted and is only positive for those signs and symptoms present in history of present illness. PHYSICAL EXAMINATION: VITAL SIGNS: Temperature of 98.6, blood pressure 96/50, pulse is 96, respirations 20, O2 sat is 100%. GENERAL: The patient is a well-developed, chronically ill-appearing male in no acute distress. HEENT: Endotracheal tube is intact, attached to the ventilator. CARDIOVASCULAR: Regular rate and rhythm. ABDOMEN: Soft, nontender, intact G-tube. EXTREMITIES: No clubbing, cyanosis or edema. RECTAL: Deferred. LABORATORY DATA AND IMAGING: WBC 11.3, hemoglobin 9.9, platelet count is 99. INR is 1.16, creatinine is 2.4, bilirubin 4.7, AST 100, ALT is 11, alk phos is 1199, albumin 3.1. IMPRESSION: 1. Abnormal liver enzymes, could be multifactorial, could be from underlying chronic liver disease such as viral hepatitis or other etiology, acute process may be from medications such as TPN and Lipitor or perhaps Keppra. Also could be from sepsis, biliary obstruction, etc. 2. Respiratory failure. 3. Dysphagia and G-tube insertion. 4. Old stroke. 5. Diabetes mellitus. 6. Chronic kidney disease. RECOMMENDATIONS: 1. Check liver labs. 2. Check abdominal ultrasound. 3. We will stop TPN. 4. We will stop Lipitor. 5. Monitor liver synthetic function. 6. G-tube feedings to be continued as tolerated. Thank you, Dr. Sudhir Montano for involving us in the care of this patient. If you have any further questions, please call us. JOB# [id number] MTDD
--- NOTE | 2017-06-06 15:27 | Infectious Disease Prog Note ---
Infectious Disease Subjective - Review of Systems Service Date: 06/06/17 Subjective: No new change. developed fever today. intubated orally, on vent support. Infectious Disease Objective - Results Result Diagrams: 06/06/17 05:03 06/06/17 05:03 Recent Labs: Laboratory Last Values WBC 11.3 Th/cmm (4.8-10.8) H D 06/06/17 05:03 RBC 3.44 Mil/cmm (3.80-5.80) L 06/06/17 05:03 Hgb 9.9 gm/dL (12.6-17.4) L D 06/06/17 05:03 Hct 28.7 % (39.0-49.0) L D 06/06/17 05:03 MCV 83.3 fl (80-99) 06/06/17 05:03 MCH 28.8 pg (27.0-31.0) 06/06/17 05:03 MCHC Differential 34.5 pg (28.0-36.0) 06/06/17 05:03 RDW 15.8 % (11.5-20.0) 06/06/17 05:03 Plt Count 99 Th/cmm (150-400) L 06/06/17 05:03 MPV 10.3 fl 06/06/17 05:03 Neutrophils % 72.7 % (40.0-80.0) 06/04/17 04:47 Band Neutrophils % 5 % (0-10) 06/05/17 04:42 Lymphocytes % 13.0 % (20.0-50.0) L 06/04/17 04:47 Monocytes % 13.5 % (2.0-10.0) H 06/04/17 04:47 Eosinophils % 0.6 % (0.0-5.0) 06/04/17 04:47 Basophils % 0.2 % (0.0-2.0) 06/04/17 04:47 Neutrophils (Manual) 70 % (40-80) 06/06/17 05:03 Lymphocytes 10 % (20-50) L 06/06/17 05:03 Monocytes 16 % (2-10) H 06/06/17 05:03 Eosinophils 1 % (0-5) 06/06/17 05:03 Basophils 0 % (0-3) 05/24/17 04:49 Metamyelocytes 1 % (0-0) H 06/06/17 05:03 Atypical Lymphocytes 2 % 06/06/17 05:03 Toxic Granulation 1+ 05/23/17 04:48 Platelet Estimate DECREASED PLATELETS (NORMAL) 06/06/17 05:03 Platelet Morphology GIANT PLATELETS SEEN (NORMAL) 06/06/17 05:03 Poikilocytosis 1+ 06/06/17 05:03 Anisocytosis 1+ 06/06/17 05:03 Target Cells 1+ 06/06/17 05:03 RBC Morph Micro Appear ABNORMAL (NORMAL) 06/06/17 05:03 Eos Smear Source URINE 05/14/17 18:00 Eos Smear Total Cells FEW EOSINOPHILS SEEN (NONE SEEN) 05/14/17 18:00 Plt Count 121 Th/cmm (150-750) L 06/04/17 04:47 PT 12.2 SECONDS (9.5-11.5) H 06/06/17 05:03 INR 1.16 (0.5-1.4) 06/06/17 05:03 PTT (Actin FS) 40.8 SECONDS (26.0-38.0) H 06/06/17 05:03 Fibrinogen 168.0 mg/dL (200.0-400.0) L 06/06/17 05:03 D-Dimer 581 ng/mL (100-400) H 06/04/17 04:47 Specimen Source Arterial 06/06/17 08:45 Sample Site Left Radial 06/06/17 08:45 pH 7.43 (7.35-7.45) 06/06/17 08:45 pCO2 49.0 mmHg (35.0-45.0) H 06/06/17 08:45 pO2 63.0 mmHg (80.0-100.0) L 06/06/17 08:45 HCO3 30.3 mEq/L (20.0-26.0) H 06/06/17 08:45 Base Excess 7.0 mEq/L (-3.0-3.0) H 06/06/17 08:45 O2 Saturation 92.0 % (92.0-100.0) 06/06/17 08:45 Feliciano Test YES 06/06/17 08:45 Vent Rate 4 06/06/17 08:45 Inspired O2 30 06/06/17 08:45 Tidal Volume 500 06/06/17 08:45 PEEP 0 06/06/17 08:45 Pressure (ins/psv/peep) 18 06/06/17 08:45 Critical Value E.MCNEAL 06/06/17 08:45 Sodium 137 mEq/L (136-145) 06/06/17 05:03 Potassium 3.7 mEq/L (3.5-5.1) 06/06/17 05:03 Chloride 102 mEq/L (98-107) 06/06/17 05:03 Carbon Dioxide 30.4 mEq/L (21.0-31.0) 06/06/17 05:03 Anion Gap 8.3 (7.0-16.0) 06/06/17 05:03 BUN 48 mg/dL (7-25) H 06/06/17 05:03 Creatinine 2.4 mg/dL (0.7-1.3) H 06/06/17 05:03 Est GFR ( Amer) TNP 06/06/17 05:03 Est GFR (Non-Af Amer) TNP 06/06/17 05:03 BUN/Creatinine Ratio 20.0 06/06/17 05:03 Glucose 159 mg/dL (70-105) H 06/06/17 05:03 POC Glucose 311 MG/DL (70 - 105) H 06/06/17 12:27 Hemoglobin A1c % 6.1 % (4.0-6.0) H 05/15/17 06:30 Plasma/Ser Osmolality 301 mOsmol/kg (280-301) 05/14/17 18:20 Whole Bld Lactic Acid 1.58 mmol/L (0.60-1.99) 05/13/17 17:42 Uric Acid 7.7 mg/dL (4.4-7.6) H 05/15/17 06:30 Calcium 8.9 mg/dL (8.6-10.3) 06/06/17 05:03 Phosphorus 2.6 mg/dL (2.5-5.0) 06/06/17 05:03 Magnesium 1.9 mg/dL (1.9-2.7) 06/06/17 05:03 Iron 70 ug/dL (38-169) 06/04/17 04:47 TIBC 94 ug/dL (250-450) L 06/04/17 04:47 Iron Saturation 74 % (15-55) H 06/04/17 04:47 Unsaturated IBC 24 ug/dL (111-343) L 06/04/17 04:47 Ferritin 351 ng/mL (30-400) 06/03/17 04:48 Total Bilirubin 4.7 mg/dL (0.3-1.0) H 06/06/17 05:03 Direct Bilirubin 0.09 mg/dL (0.0-0.2) 05/19/17 04:50 AST 100 U/L (13-39) H 06/06/17 05:03 ALT 11 U/L (7-52) 06/06/17 05:03 Alkaline Phosphatase 1199 U/L (34-104) H 06/06/17 05:03 Ammonia 65 umol/L (16-53) H 05/19/17 04:50 Creatine Kinase 35 U/L (30-223) 05/16/17 23:06 Troponin I 0.02 ng/mL (0.01-0.05) 05/16/17 23:06 B-Natriuretic Peptide 1480.0 pg/mL (5.0-100.0) H 06/05/17 04:42 Total Protein 6.0 gm/dL (6.0-8.3) 06/06/17 05:03 Albumin 3.1 gm/dL (4.2-5.5) L 06/06/17 05:03 Globulin 2.9 gm/dL 06/06/17 05:03 Albumin/Globulin Ratio 1.1 (1.0-1.8) 06/06/17 05:03 Prealbumin 6 mg/dL (9-32) L 06/04/17 04:47 Triglycerides 60 mg/dL (<150) 06/04/17 04:47 Cholesterol 63 mg/dL (<200) 06/04/17 04:47 Vitamin B12 >1999 pg/mL (211-946) H 06/04/17 04:47 Folic Acid >20.0 ng/mL (>3.0) 06/04/17 04:47 TSH 2.74 uIU/ml (0.34-5.60) 05/15/17 06:30 Urine Source CATH 06/06/17 10:30 Urine Color YELLOW 06/06/17 10:30 Urine Clarity SL. CLOUDY (CLEAR) 06/06/17 10:30 Urine pH 5.0 (4.6 - 8.0) 06/06/17 10:30 Ur Specific [place] 1.025 (1.005-1.030) 06/06/17 10:30 Urine Protein 100 mg/dL (NEGATIVE) H 06/06/17 10:30 Urine Glucose (UA) NEGATIVE mg/dL (NEGATIVE) 06/06/17 10:30 Urine Ketones NEGATIVE mg/dL (NEGATIVE) 06/06/17 10:30 Urine Blood LARGE (NEGATIVE) H 06/06/17 10:30 Urine Nitrate NEGATIVE (NEGATIVE) 06/06/17 10:30 Urine Bilirubin SMALL (NEGATIVE) H 06/06/17 10:30 Urine Urobilinogen 0.2 E.U./dL (0.2 - 1.0) 06/06/17 10:30 Ur Leukocyte Esterase LARGE (NEGATIVE) H 06/06/17 10:30 Urine RBC 20-30 /hpf (0-5) 06/06/17 10:30 Urine WBC 10-25 /hpf (0-5) H 06/06/17 10:30 Ur Epithelial Cells RARE /lpf (FEW) 06/06/17 10:30 Urine Bacteria f /hpf (NONE SEEN) 06/06/17 10:30 Urine Yeast MODERATE /hpf (NONE SEEN) H 06/06/17 10:30 Ur Random Sodium 30 mmol/L 05/14/17 18:00 Urine Creatinine 36.4 mg/dl (Not Estab.) 05/14/17 18:00 Urine Microalbumin 363.5 ug/mL (Not Estab.) 05/14/17 18:00 Microalb/Creat Ratio 998.6 mg/g creat (0.0-30.0) H 05/14/17 18:00 Stool Occult Blood NEGATIVE (NEGATIVE) 05/25/17 17:49 Random Vancomycin 19.1 ug/mL (5.0-40.0) 05/19/17 04:50 Hepatitis A IgM Ab Negative (Negative) 05/21/17 04:46 Hep Bs Antigen Negative (Negative) 05/21/17 04:46 Hep B Core IgM Ab Negative (Negative) 05/21/17 04:46 Hepatitis C Antibody 0.1 s/co ratio (0.0-0.9) 05/21/17 04:46 Blood Type B POSITIVE 06/04/17 04:47 Antibody Screen NEGATIVE 06/04/17 04:47 Crossmatch See Detail 05/21/17 10:19 - Physical Exam Vitals and I&O: Vital Signs Temp 98.6 F 06/06/17 15:00 Pulse 90 06/06/17 15:00 Resp 21 06/06/17 15:00 BP 112/46 06/06/17 15:00 Pulse Ox 95 06/06/17 15:00 Intake & Output 06/05/17 06/06/17 06/06/17 18:59 06:59 18:59 Intake Total 2011.333 Output Total 210 2450 Balance 1801.333 -2450 Weight (lbs) 66.451 kg 66.451 kg Intake: Intake, IV Amount 881.333 Multivitamin Inj 10 ml In 881.333 Dextrose 70% 250 ml In Amino Acids 10% 500 ml In Intralipids 20% 200 ml @ 40 mls/hr IV .Q24H [facility] Rx#:[id number] Tube Feeding 200 TPN/PPN 480 Blood Product 250 Other 200 Output: Urine 210 Hemodialysis 2450 Other: # Bowel Movements 1 Stool Characteristics Soft Liquid Active Medications: Current Medications Acetaminophen (Tylenol) 650 mg PO Q4HR PRN PRN Reason: Pain Or Fever above 101 Stop: 07/14/17 15:15 Last Admin: 06/06/17 08:50 Dose: 650 mg Albuterol/Ipratropium (Duoneb Neb) 3 ml HHN Q4HRT [facility] Stop: 07/19/17 14:59 Last Admin: 06/06/17 12:33 Dose: 3 ml Budesonide (Pulmicort) 1 mg HHN BIDRT [facility] Stop: 07/19/17 18:59 Last Admin: 06/06/17 07:14 Dose: 1 mg Calamine/Phenol (Calmoseptine) 1 appl TP QID PRN PRN Reason: Skin Irritation Stop: 08/03/17 12:28 Last Admin: 06/05/17 20:33 Dose: 1 appl Calamine/Phenol (Calmoseptine) 1 appl TP QID [facility] Stop: 08/03/17 12:59 Last Admin: 06/06/17 09:35 Dose: 1 appl Carbidopa/Levodopa (Sinemet 25mg-100 Mg) 1 tab PO TID YESSICA Stop: 07/14/17 08:59 Last Admin: 06/06/17 09:35 Dose: 1 tab Chlorhexidine Gluconate (Peridex) 15 ml MM 0800,2000 [facility] Stop: 07/23/17 19:59 Last Admin: 06/06/17 09:30 Dose: 15 ml Clonidine HCl (Catapres) 0.1 mg PO Q6HR PRN PRN Reason: BP MAINTENANCE (PER PROTOCOL) Stop: 07/28/17 13:31 Last Admin: 05/29/17 21:04 Dose: 0.1 mg Colistimethate Sodium (Colistin) 75 mg HHN BIDRT YESSICA Stop: 07/30/17 18:59 Last Admin: 06/06/17 07:14 Dose: 75 mg Dextrose (D50w) 50 ml IVP PRN PRN; Protocol PRN Reason: HYPOGLYCEMIA Stop: 07/20/17 00:54 Last Admin: 05/22/17 23:34 Dose: 50 ml Diltiazem HCl (Cardizem) 10 mg IVP Q6HR PRN PRN Reason: HR >130 Stop: 07/22/17 17:09 Last Admin: 05/24/17 04:21 Dose: 10 mg Furosemide (Lasix) 40 mg IVP DAILY [facility] Stop: 07/18/17 08:59 Last Admin: 06/06/17 10:18 Dose: 40 mg Hydralazine HCl (Apresoline 20 Mg/Ml) 10 mg IV Q6HR PRN PRN Reason: BP MAINTENANCE (PER PROTOCOL) Stop: 07/30/17 13:09 Last Admin: 06/06/17 12:30 Dose: 10 mg Norepinephrine Bitartrate 8 mg (/ Dextrose) 258 mls @ 0 mls/hr IV TITR PRN; Protocol; Titrate PRN Reason: BP MAINTENANCE (PER PROTOCOL) Stop: 07/19/17 12:29 Last Admin: 05/21/17 01:06 Dose: 10 mcg/min, 19.35 mls/hr Phenylephrine HCl 10 mg/ (Sodium Chloride) 250 mls @ 0 mls/hr IV TITR YESSICA; Per Protocol PRN Reason: Protocol Stop: 07/19/17 12:59 Piperacillin Sod/Tazobactam (Sod 2.25 gm/ Sodium Chloride) 50 mls @ 100 mls/hr IV Q6HR YESSICA Stop: 08/05/17 11:59 Last Admin: 06/06/17 12:00 Dose: 100 mls/hr Albumin Human (Albuminar 25%) 25 gm in 100 mls @ 50 mls/hr IV X1 ONE Stop: 06/07/17 14:14 Albumin Human (Albuminar 25%) 25 gm in 100 mls @ 50 mls/hr IV X1 ONE Stop: 06/07/17 14:15 Insulin Aspart (Novolog Insulin Sliding Scale) 0 units SUBQ Q6HR YESSICA PRN Reason: Protocol Stop: 07/14/17 00:00 Last Admin: 06/06/17 12:28 Dose: 4 units Isosorbide Dinitrate (Isordil) 20 mg GT TID [facility] Stop: 07/28/17 13:33 Last Admin: 06/06/17 09:30 Dose: 20 mg Lactobacillus Rhamnosus (Culturelle) 1 each PO DAILY YESSICA Stop: 07/17/17 08:59 Last Admin: 06/06/17 09:35 Dose: 1 each Levetiracetam (Keppra) 250 mg NG BID [facility] Stop: 07/14/17 08:59 Last Admin: 06/06/17 09:35 Dose: 250 mg Metoclopramide HCl (Reglan) 5 mg IVP TID [facility] Stop: 07/20/17 20:59 Last Admin: 06/06/17 09:35 Dose: 5 mg Metoprolol Tartrate (Lopressor) 50 mg GT Q8H [facility] Stop: 07/18/17 08:59 Last Admin: 06/06/17 09:15 Dose: 50 mg Miscellaneous (Vte Chemical Prophylaxis Screen/ Admission) 1 ea MC PRN PRN PRN Reason: PROTOCOL Stop: 07/14/17 09:25 Miscellaneous (Clinical Monitoring) 1 ea MC DAILY PRN PRN Reason: RENAL Stop: 07/15/17 12:32 Miscellaneous (Probiotic Screen) 1 ea PRN PRN PRN Reason: PROTOCOL Stop: 07/16/17 09:33 Pantoprazole Sodium (Protonix) 40 mg GT DAILY [facility] Stop: 07/14/17 08:59 Last Admin: 06/06/17 10:06 Dose: 40 mg General: no acute distress, well developed, well nourished HEENT: atraumatic, normocephalic, EOMI Neck: supple, thyromegaly, rigid Cardiovascular: S1S2, regular Lungs: clear to auscultation bilaterally, clear to percussion Abdomen: soft, no tender Extremities: no cyanosis, no clubbing, no edema Neurological: awake, alert - Procedures Procedures: Procedures Procedure Code Date INSERT EMERGENCY AIRWAY 11763 05/13/17 INSERT TUNNELED CV CATH 48543 05/13/17 INSERTION OF ENDOTRACHEAL AIRWAY INTO TRACHEA, VIA OPENING [id number] 05/13/17 INSERTION OF INFUSION DEV INTO R FEMOR VEIN, PERC APPROACH [id number] 05/13/17 RESPIRATORY VENTILATION, GREATER THAN 96 CONSECUTIVE HOURS [id number] 05/13/17 VENT MGMT INPAT INIT DAY 08476 05/13/17 Infectious Disease Assmt/Plan - Problem List Patient Problems: All Active Problems COUGH AND CONGESTION (Acute) Congestive heart failure (CHF) (Acute) I50.9 congestive heart failure (Acute) hypertension uncontrolled with bradycarda (Acute) renal failure (Acute) - Assessment Assessment: 1. Pneuimonia.? Aspiration. 2. NICK. 3. CVA. 4. CHF. 5. CKD4. NICK mild rise in creatinine. 6. Afib with rapid ventricular response. 7. candiduria. 8. Fever. Plan: Continue colistin nebulizer. Add Diflucan. Nutritional Asmnt/Malnutr-PDOC - Dietary Evaluation Malnutrition Findings (Please click <Entered> for more info): Nutritional Asmnt/Malnutrition Start: 05/15/17 13: 56 Text: Status: Complete Freq: Document 05/15/17 13:56 GSUN (Rec: 05/15/17 14:18 GSUN [id number]) Nutritional Asmnt/Malnutrition Patient General Information Nutritional Screening High Risk Screening Diagnosis PNA, NICK, icnreasing renal failure, CVA, CHF, DM Pertinent Medical Hx/Surgical Hx CVA, dementia, afib, CAD, HTN, dyslipidemia, epilepsy, GERD, aspiration PNA, DM, CKD, dehydration, C. diff, anemia D Subjective Information 86 year old male from SNF. Pt greeted RD. Pt is overall thin , moderate to severe wasting to chest, clavicles, extremities. Observed Glytrol running at 60ml/hr x20hrs during visit. Unable to obtain CBW due to bedscale not calibrated. Discussed with YVETTE Farooq regarding tube feeding recommendations. Current Diet Order/ Nutrition Support Glytrol at 60ml/hr x 20hrs, providing 1200kcal 54g protein Pertinent Medications Lipitor, Novolog, Levemir, Cephulac, Morphine, Protonix, Nacl 0.9% Pertinent Labs 05/13: potassium 5.3H, BUN 80H, creatinine 2.4H, glucose 103 05/15: potassium WNL, BUN 70H, creatinine 2.4H, glucose 239H, A1c 6.1H, phosphorus 5.4H Nutritional Hx/Data Height 1.68 m Height (Calculated Centimeters) 167.6 Current Weight (lbs) 65.771 kg Weight (Calculated Kilograms) 65.8 Weight (Calculated Grams) 32654.9 [place] Body Weight 142 Weight Status Approriate GI Symptoms Difficult in: Swallowing Cultural/Ethnic/Congregation Belief [facility]: Glucerna 1.2 at 85ml/hr x 20hrs, providing 2040kcal, promote weight gain. Skin Integrity/Comment: Gee 12. Skin intact. Estimated Nutritional Goals Calories/Kcals/Kg CBW 145lb/65.9kg Kcals Calculated 1976-7kcal (30-35kcal/kg) Protein Calculated 46-92g (0.7-1.4g/kg, renal vs moderate to severe wasting) Fluid: ml Per MD (renal) Nutritional Problem 2. 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 Problem Problem Inadequate intake from enteral nutrition infusion related to Etiology estimated nutritional needs aeb Signs/Symptoms: providing to meet 61% lower end kcal needs Intervention/Recommendation Comments 1. Recommend Novasource Renal at 50ml/hr x 20hrs, providing 2000kcal and 91g protein. Current order Glytrol at 60ml/ hr x 20hrs is only providing 1200kcal, pt recieves 2040kcal at [facility]. Expected Outcomes/Goals Expected Outcomes/Goals 1. Pt to meet at least 100% of estimated nutritional needs on tube feeding with tolerance .
[2017-06-06] MEDS ORDERED: Fluconazole 200mg/100mL 200 MG/100 ML BAG IV SCH (16:30)
[2017-06-06] MEDS: Menthol/Zinc Oxide Oint 113gm Tube TP PRN (20:49)
--- NOTE | 2017-06-06 20:54 | Progress Notes ---
DATE: 06/06/2017 PROBLEM LIST: 1. Persistent respiratory failure. 2. Congestive heart failure. 3. Multidrug-resistant organism pneumonia. 4. Chronic atrial fibrillation. 5. Altered state of mind. 6. Renal failure. SYMPTOMS: Nil. The patient is but more obtunded, no respiratory distress, though mildly tachypneic at this time with SIMV 4 with pressor support of 18. PHYSICAL EXAMINATION: VITAL SIGNS: Temperature is 98.6, blood pressure is 96/50, saturation 100%, and respirations in mid 20s. NECK: Veins not visualized. ENT: Shows no acute changes. CHEST: Shows diminished air entry with occasional rhonchi. HEART: Regular. ABDOMEN: Soft, nontender. LABORATORY DATA: Chest x-ray shows still bilateral basal haziness, possibly associated fluid. The patient's platelet is 99,000 and otherwise ABG shows compensated respiratory acidemia with pO2 of 63 on 30% with SIMV of 4 with pressor support 18. ASSESSMENT: The patient clinically status quo, not significantly changed. PLANS AND SUGGESTIONS: We will go ahead and continue current treatment. We will follow through, possibly tracheostomy, care and plan also discussed with Dr. Montano earlier. JOB# [id number]
[2017-06-07] MEDS: Menthol/Zinc Oxide Oint 113gm Tube TP SCH ×4 (00:28→17:04)
[2017-06-07] MEDS: INSULIN ASPART SLIDING SCALE 100 UNITS/ML UNIT SUBQ SCH ×5 (00:38→23:36)
[2017-06-07] MEDS: Piperacillin/Tazobact 2.25 gm in 0.9% NS 50 ML IV SCH ×5 (00:52→23:39)
[2017-06-07] MEDS: Albuterol/Ipratropium Neb 3 ML AERS HHN SCH ×7 (03:13→23:26)
[2017-06-07 05:17] LABS: % BASOPHILS 0.7 % (0.0-2.0); % EOSINOPHILS 0.3 % (0.0-5.0); % LYMPHOCYTES 10.1 % (20.0-50.0); % NEUTROPHILS 75.9 % (40.0-80.0); HEMATOCRIT 26.3 % (39.0-49.0); HEMOGLOBIN 8.9 gm/dL (12.6-17.4); MEAN CELL VOLUME 82.8 fl (80-99); MEAN CORPUSCULAR HGB CONC 33.8 pg (28.0-36.0); MEAN PLATELET VOLUME 13.1 fl; NEUTROPHILE ABSOLUTE 6.8 Th/cmm (1.8-8.0); PLATELET COUNT 97 Th/cmm (150-400); RED BLOOD COUNT 3.17 Mil/cmm (3.80-5.80); RED CELL DISTRIBUTION WIDTH 16.6 % (11.5-20.0)
[2017-06-07 05:28] LABS: INR 1.18 (0.5-1.4); PROTHROMBIN TIME (TEST) 12.4 SECONDS (9.5-11.5)
[2017-06-07 05:45] LABS: ACETAMINOPHEN < 10.0 ug/mL (10.0-30.0); ALKALINE PHOSPHATASE 1552 U/L (34-104); ANION GAP 10.5 (7.0-16.0); BILIRUBIN,DIRECT 3.83 mg/dL (0.0-0.2); BILIRUBIN,TOTAL 5.5 mg/dL (0.3-1.0); BUN - UREA NITROGEN 71 mg/dL (7-25); BUN/CREATININE RATIO 22.2; CALCIUM SERUM 8.6 mg/dL (8.6-10.3); CARBON DIOXIDE 28.4 mEq/L (21.0-31.0); CHLORIDE 99 mEq/L (98-107); CREATININE - SERUM 3.2 mg/dL (0.7-1.3); GLUCOSE 247 mg/dL (70-105); PHOSPHOROUS 2.9 mg/dL (2.5-5.0); POTASSIUM SERUM 3.9 mEq/L (3.5-5.1); SGOT 143 U/L (13-39); SGPT/ALT 15 U/L (7-52); SODIUM SERUM 134 mEq/L (136-145)
[2017-06-07] MEDS: Budesonide 0.5 Mg/2 mL Ud HHN SCH ×2 (06:52→18:53)
[2017-06-07] MEDS: Chlorhexidine Gluconate 0.12% 15mL Mouthwash MM SCH ×2 (08:35→20:29)
[2017-06-07] MEDS: Lactobacillus Rhamnosus 10 Billion CFU Capsule PO SCH (09:13)
[2017-06-07] MEDS: Metoclopramide 5 mg/mL 2mL Vial IVP SCH ×3 (09:13→20:30)
[2017-06-07] MEDS: Levetiracetam 500 mg/5mL 5mL UDC NG SCH ×2 (09:13→17:04)
[2017-06-07] MEDS: Pantoprazole 40 mg/Packet GT SCH (09:14)
[2017-06-07 10:03] LABS: pH 7.48 (7.35-7.45)
[2017-06-07 10:04] LABS: ABG SOURCE Arterial; ALLEN TEST Positive; BE(B) 7.1 mEq/L (-3.0-3.0); FIO2 30; HCO3 30.4 mEq/L (20.0-26.0); MECH RATE 4; MECH VT 500; PS 18
--- NOTE | 2017-06-07 10:25 | General Progress Note ---
Subjective - Review of Systems Service Date: 06/07/17 Events since last encounter: for tracheostomy on 06/09/17 platelets on low side to have Dr. Osei see patient for clearance Objective - Results Result Diagrams: 06/07/17 04:40 06/07/17 04:40 Recent Labs: Laboratory Last Values WBC 9.0 Th/cmm (4.8-10.8) D 06/07/17 04:40 RBC 3.17 Mil/cmm (3.80-5.80) L 06/07/17 04:40 Hgb 8.9 gm/dL (12.6-17.4) L 06/07/17 04:40 Hct 26.3 % (39.0-49.0) L 06/07/17 04:40 MCV 82.8 fl (80-99) 06/07/17 04:40 MCH 28.0 pg (27.0-31.0) 06/07/17 04:40 MCHC Differential 33.8 pg (28.0-36.0) 06/07/17 04:40 RDW 16.6 % (11.5-20.0) 06/07/17 04:40 Plt Count 97 Th/cmm (150-400) L 06/07/17 04:40 MPV 13.1 fl 06/07/17 04:40 Neutrophils % 75.9 % (40.0-80.0) 06/07/17 04:40 Band Neutrophils % 5 % (0-10) 06/05/17 04:42 Lymphocytes % 10.1 % (20.0-50.0) L 06/07/17 04:40 Monocytes % 13.0 % (2.0-10.0) H 06/07/17 04:40 Eosinophils % 0.3 % (0.0-5.0) 06/07/17 04:40 Basophils % 0.7 % (0.0-2.0) 06/07/17 04:40 Neutrophils (Manual) 70 % (40-80) 06/06/17 05:03 Lymphocytes 10 % (20-50) L 06/06/17 05:03 Monocytes 16 % (2-10) H 06/06/17 05:03 Eosinophils 1 % (0-5) 06/06/17 05:03 Basophils 0 % (0-3) 05/24/17 04:49 Metamyelocytes 1 % (0-0) H 06/06/17 05:03 Atypical Lymphocytes 2 % 06/06/17 05:03 Toxic Granulation 1+ 05/23/17 04:48 Platelet Estimate DECREASED PLATELETS (NORMAL) 06/06/17 05:03 Platelet Morphology GIANT PLATELETS SEEN (NORMAL) 06/06/17 05:03 Poikilocytosis 1+ 06/06/17 05:03 Anisocytosis 1+ 06/06/17 05:03 Target Cells 1+ 06/06/17 05:03 RBC Morph Micro Appear ABNORMAL (NORMAL) 06/06/17 05:03 Eos Smear Source URINE 05/14/17 18:00 Eos Smear Total Cells FEW EOSINOPHILS SEEN (NONE SEEN) 05/14/17 18:00 Plt Count 121 Th/cmm (150-750) L 06/04/17 04:47 PT 12.4 SECONDS (9.5-11.5) H 06/07/17 04:40 INR 1.18 (0.5-1.4) 06/07/17 04:40 PTT (Actin FS) 40.8 SECONDS (26.0-38.0) H 06/06/17 05:03 Fibrinogen 168.0 mg/dL (200.0-400.0) L 06/06/17 05:03 D-Dimer 581 ng/mL (100-400) H 06/04/17 04:47 Specimen Source Arterial 06/07/17 09:29 Sample Site Left Radial 06/07/17 09:29 pH 7.48 (7.35-7.45) H 06/07/17 09:29 pCO2 42.0 mmHg (35.0-45.0) 06/07/17 09:29 pO2 71.0 mmHg (80.0-100.0) L 06/07/17 09:29 HCO3 30.4 mEq/L (20.0-26.0) H 06/07/17 09:29 Base Excess 7.1 mEq/L (-3.0-3.0) H 06/07/17 09:29 O2 Saturation 95.0 % (92.0-100.0) 06/07/17 09:29 Feliciano Test Positive 06/07/17 09:29 Vent Rate 4 06/07/17 09:29 Inspired O2 30 06/07/17 09:29 Tidal Volume 500 06/07/17 09:29 PEEP 0 06/06/17 08:45 Pressure (ins/psv/peep) 18 06/07/17 09:29 Critical Value PING 06/07/17 09:29 Sodium 134 mEq/L (136-145) L 06/07/17 04:40 Potassium 3.9 mEq/L (3.5-5.1) 06/07/17 04:40 Chloride 99 mEq/L (98-107) 06/07/17 04:40 Carbon Dioxide 28.4 mEq/L (21.0-31.0) 06/07/17 04:40 Anion Gap 10.5 (7.0-16.0) 06/07/17 04:40 BUN 71 mg/dL (7-25) H 06/07/17 04:40 Creatinine 3.2 mg/dL (0.7-1.3) H 06/07/17 04:40 Est GFR ( Amer) TNP 06/07/17 04:40 Est GFR (Non-Af Amer) TNP 06/07/17 04:40 BUN/Creatinine Ratio 22.2 06/07/17 04:40 Glucose 247 mg/dL (70-105) H 06/07/17 04:40 POC Glucose 159 MG/DL (70 - 105) H 06/06/17 17:14 Hemoglobin A1c % 6.1 % (4.0-6.0) H 05/15/17 06:30 Plasma/Ser Osmolality 301 mOsmol/kg (280-301) 05/14/17 18:20 Whole Bld Lactic Acid 1.58 mmol/L (0.60-1.99) 05/13/17 17:42 Uric Acid 7.7 mg/dL (4.4-7.6) H 05/15/17 06:30 Calcium 8.6 mg/dL (8.6-10.3) 06/07/17 04:40 Phosphorus 2.9 mg/dL (2.5-5.0) 06/07/17 04:40 Magnesium 2.0 mg/dL (1.9-2.7) 06/07/17 04:40 Iron 70 ug/dL (38-169) 06/04/17 04:47 TIBC 94 ug/dL (250-450) L 06/04/17 04:47 Iron Saturation 74 % (15-55) H 06/04/17 04:47 Unsaturated IBC 24 ug/dL (111-343) L 06/04/17 04:47 Ferritin 351 ng/mL (30-400) 06/03/17 04:48 Total Bilirubin 5.5 mg/dL (0.3-1.0) H 06/07/17 04:40 Direct Bilirubin 3.83 mg/dL (0.0-0.2) H 06/07/17 04:40 AST 143 U/L (13-39) H 06/07/17 04:40 ALT 15 U/L (7-52) 06/07/17 04:40 Alkaline Phosphatase 1552 U/L (34-104) H 06/07/17 04:40 Ammonia 65 umol/L (16-53) H 05/19/17 04:50 Creatine Kinase 35 U/L (30-223) 05/16/17 23:06 Troponin I 0.02 ng/mL (0.01-0.05) 05/16/17 23:06 B-Natriuretic Peptide 1480.0 pg/mL (5.0-100.0) H 06/05/17 04:42 Total Protein 5.3 gm/dL (6.0-8.3) L 06/07/17 04:40 Albumin 2.6 gm/dL (4.2-5.5) L 06/07/17 04:40 Globulin 2.7 gm/dL 06/07/17 04:40 Albumin/Globulin Ratio 1.0 (1.0-1.8) 06/07/17 04:40 Prealbumin 6 mg/dL (9-32) L 06/04/17 04:47 Triglycerides 60 mg/dL (<150) 06/04/17 04:47 Cholesterol 63 mg/dL (<200) 06/04/17 04:47 Vitamin B12 >1999 pg/mL (211-946) H 06/04/17 04:47 Folic Acid >20.0 ng/mL (>3.0) 06/04/17 04:47 TSH 2.74 uIU/ml (0.34-5.60) 05/15/17 06:30 Urine Source CATH 06/06/17 10:30 Urine Color YELLOW 06/06/17 10:30 Urine Clarity SL. CLOUDY (CLEAR) 06/06/17 10:30 Urine pH 5.0 (4.6 - 8.0) 06/06/17 10:30 Ur Specific [place] 1.025 (1.005-1.030) 06/06/17 10:30 Urine Protein 100 mg/dL (NEGATIVE) H 06/06/17 10:30 Urine Glucose (UA) NEGATIVE mg/dL (NEGATIVE) 06/06/17 10:30 Urine Ketones NEGATIVE mg/dL (NEGATIVE) 06/06/17 10:30 Urine Blood LARGE (NEGATIVE) H 06/06/17 10:30 Urine Nitrate NEGATIVE (NEGATIVE) 06/06/17 10:30 Urine Bilirubin SMALL (NEGATIVE) H 06/06/17 10:30 Urine Urobilinogen 0.2 E.U./dL (0.2 - 1.0) 06/06/17 10:30 Ur Leukocyte Esterase LARGE (NEGATIVE) H 06/06/17 10:30 Urine RBC 20-30 /hpf (0-5) 06/06/17 10:30 Urine WBC 10-25 /hpf (0-5) H 06/06/17 10:30 Ur Epithelial Cells RARE /lpf (FEW) 06/06/17 10:30 Urine Bacteria f /hpf (NONE SEEN) 06/06/17 10:30 Urine Yeast MODERATE /hpf (NONE SEEN) H 06/06/17 10:30 Ur Random Sodium 30 mmol/L 05/14/17 18:00 Urine Creatinine 36.4 mg/dl (Not Estab.) 05/14/17 18:00 Urine Microalbumin 363.5 ug/mL (Not Estab.) 05/14/17 18:00 Microalb/Creat Ratio 998.6 mg/g creat (0.0-30.0) H 05/14/17 18:00 Stool Occult Blood NEGATIVE (NEGATIVE) 05/25/17 17:49 Random Vancomycin 19.1 ug/mL (5.0-40.0) 05/19/17 04:50 Acetaminophen < 10.0 ug/mL (10.0-30.0) L 06/07/17 04:40 Hepatitis A IgM Ab Negative (Negative) 05/21/17 04:46 Hep Bs Antigen Negative (Negative) 05/21/17 04:46 Hep B Core IgM Ab Negative (Negative) 05/21/17 04:46 Hepatitis C Antibody 0.1 s/co ratio (0.0-0.9) 05/21/17 04:46 Blood Type B POSITIVE 06/04/17 04:47 Antibody Screen NEGATIVE 06/04/17 04:47 Crossmatch See Detail 05/21/17 10:19 - Physical Exam Vitals and I&O: Vital Signs Temp 98.5 F 06/07/17 04:00 Pulse 104 06/07/17 09:13 Resp 26 06/07/17 07:00 BP 137/75 06/07/17 09:13 Pulse Ox 97 06/07/17 09:07 Intake & Output 06/06/17 06/07/17 06/07/17 18:59 06:59 18:59 Intake Total 985 110 345 Output Total 180 45 Balance 805 110 300 Weight (lbs) 65.544 kg 65.544 kg 66.281 kg Intake: Intake, IV Amount 200 50 Fluconazole 200mg/100mL 100 200 mg In 100 ml @ 100 mls/hr IV Q24HR [facility] Rx#: [id number] Piperacillin Sodium/ 100 50 Tazobact 2.25 gm In Sodium Chloride 0.9% 50 ml @ 100 mls/hr IV Q6HR [facility] Rx#:[id number] Tube Feeding 405 315 TPN/PPN 180 Other 200 60 30 Output: Urine 180 45 Other: # Bowel Movements 0 Active Medications: Current Medications Acetaminophen (Tylenol) 650 mg PO Q4HR PRN PRN Reason: Pain Or Fever above 101 Stop: 07/14/17 15:15 Last Admin: 06/06/17 08:50 Dose: 650 mg Albuterol/Ipratropium (Duoneb Neb) 3 ml HHN Q4HRT [facility] Stop: 07/19/17 14:59 Last Admin: 06/07/17 06:52 Dose: 3 ml Budesonide (Pulmicort) 1 mg HHN BIDRT [facility] Stop: 07/19/17 18:59 Last Admin: 06/07/17 06:52 Dose: 1 mg Calamine/Phenol (Calmoseptine) 1 appl TP QID PRN PRN Reason: Skin Irritation Stop: 08/03/17 12:28 Last Admin: 06/06/17 20:49 Dose: 1 appl Calamine/Phenol (Calmoseptine) 1 appl TP QID [facility] Stop: 08/03/17 12:59 Last Admin: 06/07/17 09:13 Dose: 1 appl Carbidopa/Levodopa (Sinemet 25mg-100 Mg) 1 tab PO TID [facility] Stop: 07/14/17 08:59 Last Admin: 06/07/17 09:12 Dose: Not Given Chlorhexidine Gluconate (Peridex) 15 ml MM 0800,2000 [facility] Stop: 07/23/17 19:59 Last Admin: 06/07/17 08:35 Dose: 15 ml Clonidine HCl (Catapres) 0.1 mg PO Q6HR PRN PRN Reason: BP MAINTENANCE (PER PROTOCOL) Stop: 07/28/17 13:31 Last Admin: 05/29/17 21:04 Dose: 0.1 mg Colistimethate Sodium (Colistin) 75 mg HHN BIDRT [facility] Stop: 07/30/17 18:59 Last Admin: 06/07/17 09:07 Dose: 75 mg Dextrose (D50w) 50 ml IVP PRN PRN; Protocol PRN Reason: HYPOGLYCEMIA Stop: 07/20/17 00:54 Last Admin: 05/22/17 23:34 Dose: 50 ml Diltiazem HCl (Cardizem) 10 mg IVP Q6HR PRN PRN Reason: HR >130 Stop: 07/22/17 17:09 Last Admin: 05/24/17 04:21 Dose: 10 mg Furosemide (Lasix) 40 mg IVP DAILY [facility] Stop: 07/18/17 08:59 Last Admin: 06/07/17 09:11 Dose: 40 mg Hydralazine HCl (Apresoline 20 Mg/Ml) 10 mg IV Q6HR PRN PRN Reason: BP MAINTENANCE (PER PROTOCOL) Stop: 07/30/17 13:09 Last Admin: 06/06/17 12:30 Dose: 10 mg Norepinephrine Bitartrate 8 mg (/ Dextrose) 258 mls @ 0 mls/hr IV TITR PRN; Protocol; Titrate PRN Reason: BP MAINTENANCE (PER PROTOCOL) Stop: 07/19/17 12:29 Last Admin: 05/21/17 01:06 Dose: 10 mcg/min, 19.35 mls/hr Phenylephrine HCl 10 mg/ (Sodium Chloride) 250 mls @ 0 mls/hr IV TITR YESSICA; Per Protocol PRN Reason: Protocol Stop: 07/19/17 12:59 Piperacillin Sod/Tazobactam (Sod 2.25 gm/ Sodium Chloride) 50 mls @ 100 mls/hr IV Q6HR YESSICA Stop: 08/05/17 11:59 Last Admin: 06/07/17 06:44 Dose: 100 mls/hr Albumin Human (Albuminar 25%) 25 gm in 100 mls @ 50 mls/hr IV X1 ONE Stop: 06/07/17 14:14 Albumin Human (Albuminar 25%) 25 gm in 100 mls @ 50 mls/hr IV X1 ONE Stop: 06/07/17 14:15 Insulin Aspart (Novolog Insulin Sliding Scale) 0 units SUBQ Q6HR YESSICA PRN Reason: Protocol Stop: 07/14/17 00:00 Last Admin: 06/07/17 06:46 Dose: 2 units Isosorbide Dinitrate (Isordil) 20 mg GT TID [facility] Stop: 07/28/17 13:33 Last Admin: 06/07/17 09:13 Dose: Not Given Lactobacillus Rhamnosus (Culturelle) 1 each PO DAILY [facility] Stop: 07/17/17 08:59 Last Admin: 06/07/17 09:13 Dose: Not Given Levetiracetam (Keppra) 250 mg NG BID [facility] Stop: 07/14/17 08:59 Last Admin: 06/07/17 09:13 Dose: Not Given Metoclopramide HCl (Reglan) 5 mg IVP TID [facility] Stop: 07/20/17 20:59 Last Admin: 06/07/17 09:13 Dose: Not Given Metoprolol Tartrate (Lopressor) 50 mg GT Q8H [facility] Stop: 07/18/17 08:59 Last Admin: 06/07/17 09:13 Dose: Not Given Miscellaneous (Vte Chemical Prophylaxis Screen/ Admission) 1 ea [facility] PRN PRN PRN Reason: PROTOCOL Stop: 07/14/17 09:25 Miscellaneous (Clinical Monitoring) 1 ea [facility] DAILY PRN PRN Reason: RENAL Stop: 07/15/17 12:32 Miscellaneous (Probiotic Screen) 1 ea MC PRN PRN PRN Reason: PROTOCOL Stop: 07/16/17 09:33 Pantoprazole Sodium (Protonix) 40 mg GT DAILY [facility] Stop: 07/14/17 08:59 Last Admin: 06/07/17 09:14 Dose: Not Given General: No acute distress, no Alert HEENT: Atraumatic Neck: Supple, +2 carotid pulse wo bruit Cardiovascular: Regular rate, Normal S1, Normal S2 Lungs: Other (ronchi bilaterally) Abdomen: Soft, no Tender Extremities: no Edema (no edema) Neurological: Other (opens eyes upon verbal command) Skin: no Rash Psych/Mental Status: Mood NL - Procedures Procedures: Procedures Procedure Code Date INSERT EMERGENCY AIRWAY 37759 05/13/17 INSERT TUNNELED CV CATH 20549 05/13/17 INSERTION OF ENDOTRACHEAL AIRWAY INTO TRACHEA, VIA OPENING [id number] 05/13/17 INSERTION OF INFUSION DEV INTO R FEMOR VEIN, PERC APPROACH [id number] 05/13/17 RESPIRATORY VENTILATION, GREATER THAN 96 CONSECUTIVE HOURS [id number] 05/13/17 VENT MGMT INPAT INIT DAY 40172 05/13/17 Assessment/Plan - Problem List Patient Problems: All Active Problems COUGH AND CONGESTION (Acute) Congestive heart failure (CHF) (Acute) I50.9 congestive heart failure (Acute) hypertension uncontrolled with bradycarda (Acute) renal failure (Acute) Nutritional Asmnt/Malnutr-PDOC - Dietary Evaluation Malnutrition Findings (Please click <Entered> for more info): Nutritional Asmnt/Malnutrition Start: 05/15/17 13: 56 Text: Status: Complete Freq: Document 05/15/17 13:56 GSUN (Rec: 05/15/17 14:18 GSTHALIA [id number]) Nutritional Asmnt/Malnutrition Patient General Information Nutritional Screening High Risk Screening Diagnosis PNA, NICK, icnreasing renal failure, CVA, CHF, DM Pertinent Medical Hx/Surgical Hx CVA, dementia, afib, CAD, HTN, dyslipidemia, epilepsy, GERD, aspiration PNA, DM, CKD, dehydration, C. diff, anemia D Subjective Information 86 year old male from SNF. Pt greeted RD. Pt is overall thin , moderate to severe wasting to chest, clavicles, extremities. Observed Glytrol running at 60ml/hr x20hrs during visit. Unable to obtain CBW due to bedscale not calibrated. Discussed with YVETTE Farooq regarding tube feeding recommendations. Current Diet Order/ Nutrition Support Glytrol at 60ml/hr x 20hrs, providing 1200kcal 54g protein Pertinent Medications Lipitor, Novolog, Levemir, Cephulac, Morphine, Protonix, Nacl 0.9% Pertinent Labs 05/13: potassium 5.3H, BUN 80H, creatinine 2.4H, glucose 103 05/15: potassium WNL, BUN 70H, creatinine 2.4H, glucose 239H, A1c 6.1H, phosphorus 5.4H Nutritional Hx/Data Height 1.68 m Height (Calculated Centimeters) 167.6 Current Weight (lbs) 65.771 kg Weight (Calculated Kilograms) 65.8 Weight (Calculated Grams) 68928.9 [place] Body Weight 142 Weight Status Approriate GI Symptoms Difficult in: Swallowing Cultural/Ethnic/Holiness Belief [facility]: Glucerna 1.2 at 85ml/hr x 20hrs, providing 2040kcal, promote weight gain. Skin Integrity/Comment: Gee 12. Skin intact. Estimated Nutritional Goals Calories/Kcals/Kg CBW 145lb/65.9kg Kcals Calculated 1976-2307kcal (30-35kcal/kg) Protein Calculated 46-92g (0.7-1.4g/kg, renal vs moderate to severe wasting) Fluid: ml Per MD (renal) Nutritional Problem 2. 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 Problem Problem Inadequate intake from enteral nutrition infusion related to Etiology estimated nutritional needs aeb Signs/Symptoms: providing to meet 61% lower end kcal needs Intervention/Recommendation Comments 1. Recommend Novasource Renal at 50ml/hr x 20hrs, providing 2000kcal and 91g protein. Current order Glytrol at 60ml/ hr x 20hrs is only providing 1200kcal, pt recieves 2040kcal at [facility]. Expected Outcomes/Goals Expected Outcomes/Goals 1. Pt to meet at least 100% of estimated nutritional needs on tube feeding with tolerance .
--- NOTE | 2017-06-07 11:31 | General Progress Note ---
Subjective - Review of Systems Service Date: 06/07/17 Objective - Results Result Diagrams: 06/07/17 04:40 06/07/17 04:40 Recent Labs: Laboratory Last Values WBC 9.0 Th/cmm (4.8-10.8) D 06/07/17 04:40 RBC 3.17 Mil/cmm (3.80-5.80) L 06/07/17 04:40 Hgb 8.9 gm/dL (12.6-17.4) L 06/07/17 04:40 Hct 26.3 % (39.0-49.0) L 06/07/17 04:40 MCV 82.8 fl (80-99) 06/07/17 04:40 MCH 28.0 pg (27.0-31.0) 06/07/17 04:40 MCHC Differential 33.8 pg (28.0-36.0) 06/07/17 04:40 RDW 16.6 % (11.5-20.0) 06/07/17 04:40 Plt Count 97 Th/cmm (150-400) L 06/07/17 04:40 MPV 13.1 fl 06/07/17 04:40 Neutrophils % 75.9 % (40.0-80.0) 06/07/17 04:40 Band Neutrophils % 5 % (0-10) 06/05/17 04:42 Lymphocytes % 10.1 % (20.0-50.0) L 06/07/17 04:40 Monocytes % 13.0 % (2.0-10.0) H 06/07/17 04:40 Eosinophils % 0.3 % (0.0-5.0) 06/07/17 04:40 Basophils % 0.7 % (0.0-2.0) 06/07/17 04:40 Neutrophils (Manual) 70 % (40-80) 06/06/17 05:03 Lymphocytes 10 % (20-50) L 06/06/17 05:03 Monocytes 16 % (2-10) H 06/06/17 05:03 Eosinophils 1 % (0-5) 06/06/17 05:03 Basophils 0 % (0-3) 05/24/17 04:49 Metamyelocytes 1 % (0-0) H 06/06/17 05:03 Atypical Lymphocytes 2 % 06/06/17 05:03 Toxic Granulation 1+ 05/23/17 04:48 Platelet Estimate DECREASED PLATELETS (NORMAL) 06/06/17 05:03 Platelet Morphology GIANT PLATELETS SEEN (NORMAL) 06/06/17 05:03 Poikilocytosis 1+ 06/06/17 05:03 Anisocytosis 1+ 06/06/17 05:03 Target Cells 1+ 06/06/17 05:03 RBC Morph Micro Appear ABNORMAL (NORMAL) 06/06/17 05:03 Eos Smear Source URINE 05/14/17 18:00 Eos Smear Total Cells FEW EOSINOPHILS SEEN (NONE SEEN) 05/14/17 18:00 Plt Count 121 Th/cmm (150-750) L 06/04/17 04:47 PT 12.4 SECONDS (9.5-11.5) H 06/07/17 04:40 INR 1.18 (0.5-1.4) 06/07/17 04:40 PTT (Actin FS) 40.8 SECONDS (26.0-38.0) H 06/06/17 05:03 Fibrinogen 168.0 mg/dL (200.0-400.0) L 06/06/17 05:03 D-Dimer 581 ng/mL (100-400) H 06/04/17 04:47 Specimen Source Arterial 06/07/17 09:29 Sample Site Left Radial 06/07/17 09:29 pH 7.48 (7.35-7.45) H 06/07/17 09:29 pCO2 42.0 mmHg (35.0-45.0) 06/07/17 09:29 pO2 71.0 mmHg (80.0-100.0) L 06/07/17 09:29 HCO3 30.4 mEq/L (20.0-26.0) H 06/07/17 09:29 Base Excess 7.1 mEq/L (-3.0-3.0) H 06/07/17 09:29 O2 Saturation 95.0 % (92.0-100.0) 06/07/17 09:29 [place] Test Positive 06/07/17 09:29 Vent Rate 4 06/07/17 09:29 Inspired O2 30 06/07/17 09:29 Tidal Volume 500 06/07/17 09:29 PEEP 0 06/06/17 08:45 Pressure (ins/psv/peep) 18 06/07/17 09:29 Critical Value PING 06/07/17 09:29 Sodium 134 mEq/L (136-145) L 06/07/17 04:40 Potassium 3.9 mEq/L (3.5-5.1) 06/07/17 04:40 Chloride 99 mEq/L (98-107) 06/07/17 04:40 Carbon Dioxide 28.4 mEq/L (21.0-31.0) 06/07/17 04:40 Anion Gap 10.5 (7.0-16.0) 06/07/17 04:40 BUN 71 mg/dL (7-25) H 06/07/17 04:40 Creatinine 3.2 mg/dL (0.7-1.3) H 06/07/17 04:40 Est GFR ( Amer) TNP 06/07/17 04:40 Est GFR (Non-Af Amer) TNP 06/07/17 04:40 BUN/Creatinine Ratio 22.2 06/07/17 04:40 Glucose 247 mg/dL (70-105) H 06/07/17 04:40 POC Glucose 159 MG/DL (70 - 105) H 06/06/17 17:14 Hemoglobin A1c % 6.1 % (4.0-6.0) H 05/15/17 06:30 Plasma/Ser Osmolality 301 mOsmol/kg (280-301) 05/14/17 18:20 Whole Bld Lactic Acid 1.58 mmol/L (0.60-1.99) 05/13/17 17:42 Uric Acid 7.7 mg/dL (4.4-7.6) H 05/15/17 06:30 Calcium 8.6 mg/dL (8.6-10.3) 06/07/17 04:40 Phosphorus 2.9 mg/dL (2.5-5.0) 06/07/17 04:40 Magnesium 2.0 mg/dL (1.9-2.7) 06/07/17 04:40 Iron 70 ug/dL (38-169) 06/04/17 04:47 TIBC 94 ug/dL (250-450) L 06/04/17 04:47 Iron Saturation 74 % (15-55) H 06/04/17 04:47 Unsaturated IBC 24 ug/dL (111-343) L 06/04/17 04:47 Ferritin 351 ng/mL (30-400) 06/03/17 04:48 Total Bilirubin 5.5 mg/dL (0.3-1.0) H 06/07/17 04:40 Direct Bilirubin 3.83 mg/dL (0.0-0.2) H 06/07/17 04:40 AST 143 U/L (13-39) H 06/07/17 04:40 ALT 15 U/L (7-52) 06/07/17 04:40 Alkaline Phosphatase 1552 U/L (34-104) H 06/07/17 04:40 Ammonia 65 umol/L (16-53) H 05/19/17 04:50 Creatine Kinase 35 U/L (30-223) 05/16/17 23:06 Troponin I 0.02 ng/mL (0.01-0.05) 05/16/17 23:06 B-Natriuretic Peptide 1480.0 pg/mL (5.0-100.0) H 06/05/17 04:42 Total Protein 5.3 gm/dL (6.0-8.3) L 06/07/17 04:40 Albumin 2.6 gm/dL (4.2-5.5) L 06/07/17 04:40 Globulin 2.7 gm/dL 06/07/17 04:40 Albumin/Globulin Ratio 1.0 (1.0-1.8) 06/07/17 04:40 Prealbumin 6 mg/dL (9-32) L 06/04/17 04:47 Triglycerides 60 mg/dL (<150) 06/04/17 04:47 Cholesterol 63 mg/dL (<200) 06/04/17 04:47 Vitamin B12 >1999 pg/mL (211-946) H 06/04/17 04:47 Folic Acid >20.0 ng/mL (>3.0) 06/04/17 04:47 TSH 2.74 uIU/ml (0.34-5.60) 05/15/17 06:30 Urine Source CATH 06/06/17 10:30 Urine Color YELLOW 06/06/17 10:30 Urine Clarity SL. CLOUDY (CLEAR) 06/06/17 10:30 Urine pH 5.0 (4.6 - 8.0) 06/06/17 10:30 Ur Specific [place] 1.025 (1.005-1.030) 06/06/17 10:30 Urine Protein 100 mg/dL (NEGATIVE) H 06/06/17 10:30 Urine Glucose (UA) NEGATIVE mg/dL (NEGATIVE) 06/06/17 10:30 Urine Ketones NEGATIVE mg/dL (NEGATIVE) 06/06/17 10:30 Urine Blood LARGE (NEGATIVE) H 06/06/17 10:30 Urine Nitrate NEGATIVE (NEGATIVE) 06/06/17 10:30 Urine Bilirubin SMALL (NEGATIVE) H 06/06/17 10:30 Urine Urobilinogen 0.2 E.U./dL (0.2 - 1.0) 06/06/17 10:30 Ur Leukocyte Esterase LARGE (NEGATIVE) H 06/06/17 10:30 Urine RBC 20-30 /hpf (0-5) 06/06/17 10:30 Urine WBC 10-25 /hpf (0-5) H 06/06/17 10:30 Ur Epithelial Cells RARE /lpf (FEW) 06/06/17 10:30 Urine Bacteria f /hpf (NONE SEEN) 06/06/17 10:30 Urine Yeast MODERATE /hpf (NONE SEEN) H 06/06/17 10:30 Ur Random Sodium 30 mmol/L 05/14/17 18:00 Urine Creatinine 36.4 mg/dl (Not Estab.) 05/14/17 18:00 Urine Microalbumin 363.5 ug/mL (Not Estab.) 05/14/17 18:00 Microalb/Creat Ratio 998.6 mg/g creat (0.0-30.0) H 05/14/17 18:00 Stool Occult Blood NEGATIVE (NEGATIVE) 05/25/17 17:49 Random Vancomycin 19.1 ug/mL (5.0-40.0) 05/19/17 04:50 Acetaminophen < 10.0 ug/mL (10.0-30.0) L 06/07/17 04:40 Hepatitis A IgM Ab Negative (Negative) 05/21/17 04:46 Hep Bs Antigen Negative (Negative) 05/21/17 04:46 Hep B Core IgM Ab Negative (Negative) 05/21/17 04:46 Hepatitis C Antibody 0.1 s/co ratio (0.0-0.9) 05/21/17 04:46 Blood Type B POSITIVE 06/04/17 04:47 Antibody Screen NEGATIVE 06/04/17 04:47 Crossmatch See Detail 05/21/17 10:19 - Physical Exam Vitals and I&O: Vital Signs Temp 98.8 F 06/07/17 10:54 Pulse 118 06/07/17 11:15 Resp 23 06/07/17 10:54 BP 147/77 06/07/17 10:54 Pulse Ox 4 06/07/17 11:15 Intake & Output 06/06/17 06/07/17 06/07/17 18:59 06:59 18:59 Intake Total 985 110 345 Output Total 180 45 Balance 805 110 300 Weight (lbs) 65.544 kg 65.544 kg 66.281 kg Intake: Intake, IV Amount 200 50 Fluconazole 200mg/100mL 100 200 mg In 100 ml @ 100 mls/hr IV Q24HR [facility] Rx#: [id number] Piperacillin Sodium/ 100 50 Tazobact 2.25 gm In Sodium Chloride 0.9% 50 ml @ 100 mls/hr IV Q6HR [facility] Rx#:[id number] Tube Feeding 405 315 TPN/PPN 180 Other 200 60 30 Output: Urine 180 45 Other: # Bowel Movements 0 Active Medications: Current Medications Acetaminophen (Tylenol) 650 mg PO Q4HR PRN PRN Reason: Pain Or Fever above 101 Stop: 07/14/17 15:15 Last Admin: 06/06/17 08:50 Dose: 650 mg Albuterol/Ipratropium (Duoneb Neb) 3 ml HHN Q4HRT [facility] Stop: 07/19/17 14:59 Last Admin: 06/07/17 11:12 Dose: 3 ml Budesonide (Pulmicort) 1 mg HHN BIDRT [facility] Stop: 07/19/17 18:59 Last Admin: 06/07/17 06:52 Dose: 1 mg Calamine/Phenol (Calmoseptine) 1 appl TP QID PRN PRN Reason: Skin Irritation Stop: 08/03/17 12:28 Last Admin: 06/06/17 20:49 Dose: 1 appl Calamine/Phenol (Calmoseptine) 1 appl TP QID [facility] Stop: 08/03/17 12:59 Last Admin: 06/07/17 09:13 Dose: 1 appl Carbidopa/Levodopa (Sinemet 25mg-100 Mg) 1 tab PO TID YESSICA Stop: 07/14/17 08:59 Last Admin: 06/07/17 09:12 Dose: Not Given Chlorhexidine Gluconate (Peridex) 15 ml MM 0800,1999 YESSICA Stop: 07/23/17 19:59 Last Admin: 06/07/17 08:35 Dose: 15 ml Clonidine HCl (Catapres) 0.1 mg PO Q6HR PRN PRN Reason: BP MAINTENANCE (PER PROTOCOL) Stop: 07/28/17 13:31 Last Admin: 05/29/17 21:04 Dose: 0.1 mg Colistimethate Sodium (Colistin) 75 mg HHN BIDRT YESSICA Stop: 07/30/17 18:59 Last Admin: 06/07/17 09:07 Dose: 75 mg Dextrose (D50w) 50 ml IVP PRN PRN; Protocol PRN Reason: HYPOGLYCEMIA Stop: 07/20/17 00:54 Last Admin: 05/22/17 23:34 Dose: 50 ml Diltiazem HCl (Cardizem) 10 mg IVP Q6HR PRN PRN Reason: HR >130 Stop: 07/22/17 17:09 Last Admin: 05/24/17 04:21 Dose: 10 mg Furosemide (Lasix) 40 mg IVP DAILY [facility] Stop: 07/18/17 08:59 Last Admin: 06/07/17 09:11 Dose: 40 mg Hydralazine HCl (Apresoline 20 Mg/Ml) 10 mg IV Q6HR PRN PRN Reason: BP MAINTENANCE (PER PROTOCOL) Stop: 07/30/17 13:09 Last Admin: 06/06/17 12:30 Dose: 10 mg Norepinephrine Bitartrate 8 mg (/ Dextrose) 258 mls @ 0 mls/hr IV TITR PRN; Protocol; Titrate PRN Reason: BP MAINTENANCE (PER PROTOCOL) Stop: 07/19/17 12:29 Last Admin: 05/21/17 01:06 Dose: 10 mcg/min, 19.35 mls/hr Phenylephrine HCl 10 mg/ (Sodium Chloride) 250 mls @ 0 mls/hr IV TITR YESSICA; Per Protocol PRN Reason: Protocol Stop: 07/19/17 12:59 Piperacillin Sod/Tazobactam (Sod 2.25 gm/ Sodium Chloride) 50 mls @ 100 mls/hr IV Q6HR YESSICA Stop: 08/05/17 11:59 Last Admin: 06/07/17 06:44 Dose: 100 mls/hr Albumin Human (Albuminar 25%) 25 gm in 100 mls @ 50 mls/hr IV X1 ONE Stop: 06/07/17 14:14 Albumin Human (Albuminar 25%) 25 gm in 100 mls @ 50 mls/hr IV X1 ONE Stop: 06/07/17 14:15 Insulin Aspart (Novolog Insulin Sliding Scale) 0 units SUBQ Q6HR YESSICA PRN Reason: Protocol Stop: 07/14/17 00:00 Last Admin: 06/07/17 06:46 Dose: 2 units Isosorbide Dinitrate (Isordil) 20 mg GT TID YESSICA Stop: 07/28/17 13:33 Last Admin: 06/07/17 09:13 Dose: Not Given Lactobacillus Rhamnosus (Culturelle) 1 each PO DAILY YESSICA Stop: 07/17/17 08:59 Last Admin: 06/07/17 09:13 Dose: Not Given Levetiracetam (Keppra) 250 mg NG BID YESSICA Stop: 07/14/17 08:59 Last Admin: 06/07/17 09:13 Dose: Not Given Metoclopramide HCl (Reglan) 5 mg IVP TID YESSICA Stop: 07/20/17 20:59 Last Admin: 06/07/17 09:13 Dose: Not Given Metoprolol Tartrate (Lopressor) 50 mg GT Q8H YESSICA Stop: 07/18/17 08:59 Last Admin: 06/07/17 09:13 Dose: Not Given Miscellaneous (Vte Chemical Prophylaxis Screen/ Admission) 1 ea PRN PRN PRN Reason: PROTOCOL Stop: 07/14/17 09:25 Miscellaneous (Clinical Monitoring) 1 ea MC DAILY PRN PRN Reason: RENAL Stop: 07/15/17 12:32 Miscellaneous (Probiotic Screen) 1 ea PRN PRN PRN Reason: PROTOCOL Stop: 07/16/17 09:33 Pantoprazole Sodium (Protonix) 40 mg GT DAILY YESSICA Stop: 07/14/17 08:59 Last Admin: 06/07/17 09:14 Dose: Not Given Physical Exam: intubated getting HD No bleeding General: No acute distress, no Alert HEENT: Atraumatic Neck: Supple, +2 carotid pulse wo bruit Cardiovascular: Regular rate, Normal S1, Normal S2 Lungs: Other (ronchi bilaterally) Abdomen: Soft, no Tender Extremities: no Edema (no edema) Neurological: Other (opens eyes upon verbal command) Skin: no Rash Psych/Mental Status: Mood NL - Procedures Procedures: Procedures Procedure Code Date INSERT EMERGENCY AIRWAY 05801 05/13/17 INSERT TUNNELED CV CATH 50052 05/13/17 INSERTION OF ENDOTRACHEAL AIRWAY INTO TRACHEA, VIA OPENING [id number] 05/13/17 INSERTION OF INFUSION DEV INTO R FEMOR VEIN, PERC APPROACH [id number] 05/13/17 RESPIRATORY VENTILATION, GREATER THAN 96 CONSECUTIVE HOURS [id number] 05/13/17 VENT MGMT INPAT INIT DAY 83288 05/13/17 Assessment/Plan - Problem List Patient Problems: All Active Problems COUGH AND CONGESTION (Acute) Congestive heart failure (CHF) (Acute) I50.9 congestive heart failure (Acute) hypertension uncontrolled with bradycarda (Acute) renal failure (Acute) - Assessment Assessment: * DIC * RESPIRATORY FAILURE *ESRD *UNLIKELY HIT may have trach on 06/09/17 if parameters are satisfactory MONITOR DIC PANEL Nutritional Asmnt/Malnutr-PDOC - Dietary Evaluation Malnutrition Findings (Please click <Entered> for more info): Nutritional Asmnt/Malnutrition Start: 05/15/17 13: 56 Text: Status: Complete Freq: Document 05/15/17 13:56 GSUN (Rec: 05/15/17 14:18 GSTHALIA [email or web address]) Nutritional Asmnt/Malnutrition Patient General Information Nutritional Screening High Risk Screening Diagnosis PNA, NICK, icnreasing renal failure, CVA, CHF, DM Pertinent Medical Hx/Surgical Hx CVA, dementia, afib, CAD, HTN, dyslipidemia, epilepsy, GERD, aspiration PNA, DM, CKD, dehydration, C. diff, anemia D Subjective Information 86 year old male from SNF. Pt greeted RD. Pt is overall thin , moderate to severe wasting to chest, clavicles, extremities. Observed Glytrol running at 60ml/hr x20hrs during visit. Unable to obtain CBW due to bedscale not calibrated. Discussed with YVETTE Farooq regarding tube feeding recommendations. Current Diet Order/ Nutrition Support Glytrol at 60ml/hr x 20hrs, providing 1200kcal 54g protein Pertinent Medications Lipitor, Novolog, Levemir, Cephulac, Morphine, Protonix, Nacl 0.9% Pertinent Labs 05/13: potassium 5.3H, BUN 80H, creatinine 2.4H, glucose 103 05/15: potassium WNL, BUN 70H, creatinine 2.4H, glucose 239H, A1c 6.1H, phosphorus 5.4H Nutritional Hx/Data Height 1.68 m Height (Calculated Centimeters) 167.6 Current Weight (lbs) 65.771 kg Weight (Calculated Kilograms) 65.8 Weight (Calculated Grams) 83535.9 [place] Body Weight 142 Weight Status Approriate GI Symptoms Difficult in: Swallowing Cultural/Ethnic/[employer] [facility] [facility]: Glucerna 1.2 at 85ml/hr x 20hrs, providing 2040kcal, promote weight gain. Skin Integrity/Comment: Gee 12. Skin intact. Estimated Nutritional Goals Calories/Kcals/Kg CBW 145lb/65.9kg Kcals Calculated 1976-7kcal (30-35kcal/kg) Protein Calculated 46-92g (0.7-1.4g/kg, renal vs moderate to severe wasting) Fluid: ml Per MD (renal) Nutritional Problem 2. Problem Problem Impaired nutrient utilization related to Etiology NICK, hx CKD aeb Signs/Symptoms: "increasing renal failure," potaasum 5.3H on adm, BUN 70H, ct scan special procedures technologist 2.4H, phosphorus 5.4H 1. Problem Problem Inadequate intake from enteral nutrition infusion related to Etiology estimated nutritional needs aeb Signs/Symptoms: providing to meet 61% lower end kcal needs Intervention/Recommendation Comments 1. Recommend Novasource Renal at 50ml/hr x 20hrs, providing 2000kcal and 91g protein. Current order Glytrol at 60ml/ hr x 20hrs is only providing 1200kcal, pt recieves 2040kcal at [facility]. Expected Outcomes/Goals Expected Outcomes/Goals 1. Pt to meet at least 100% of estimated nutritional needs on tube feeding with tolerance .
[2017-06-07] MEDS ORDERED: Albumin 25% 25gm/100mL 25 GM/100 ML BTL IV ONE ×2 (12:15→12:16)
--- NOTE | 2017-06-07 12:49 | General Progress Note ---
Subjective - Review of Systems Service Date: 06/07/17 Subjective: drowsy today, on vent, nonverbal Objective - Results Result Diagrams: 06/07/17 04:40 06/07/17 04:40 Recent Labs: Laboratory Last Values WBC 9.0 Th/cmm (4.8-10.8) D 06/07/17 04:40 RBC 3.17 Mil/cmm (3.80-5.80) L 06/07/17 04:40 Hgb 8.9 gm/dL (12.6-17.4) L 06/07/17 04:40 Hct 26.3 % (39.0-49.0) L 06/07/17 04:40 MCV 82.8 fl (80-99) 06/07/17 04:40 MCH 28.0 pg (27.0-31.0) 06/07/17 04:40 MCHC Differential 33.8 pg (28.0-36.0) 06/07/17 04:40 RDW 16.6 % (11.5-20.0) 06/07/17 04:40 Plt Count 97 Th/cmm (150-400) L 06/07/17 04:40 MPV 13.1 fl 06/07/17 04:40 Neutrophils % 75.9 % (40.0-80.0) 06/07/17 04:40 Band Neutrophils % 5 % (0-10) 06/05/17 04:42 Lymphocytes % 10.1 % (20.0-50.0) L 06/07/17 04:40 Monocytes % 13.0 % (2.0-10.0) H 06/07/17 04:40 Eosinophils % 0.3 % (0.0-5.0) 06/07/17 04:40 Basophils % 0.7 % (0.0-2.0) 06/07/17 04:40 Neutrophils (Manual) 70 % (40-80) 06/06/17 05:03 Lymphocytes 10 % (20-50) L 06/06/17 05:03 Monocytes 16 % (2-10) H 06/06/17 05:03 Eosinophils 1 % (0-5) 06/06/17 05:03 Basophils 0 % (0-3) 05/24/17 04:49 Metamyelocytes 1 % (0-0) H 06/06/17 05:03 Atypical Lymphocytes 2 % 06/06/17 05:03 Toxic Granulation 1+ 05/23/17 04:48 Platelet Estimate DECREASED PLATELETS (NORMAL) 06/06/17 05:03 Platelet Morphology GIANT PLATELETS SEEN (NORMAL) 06/06/17 05:03 Poikilocytosis 1+ 06/06/17 05:03 Anisocytosis 1+ 06/06/17 05:03 Target Cells 1+ 06/06/17 05:03 RBC Morph Micro Appear ABNORMAL (NORMAL) 06/06/17 05:03 Eos Smear Source URINE 05/14/17 18:00 Eos Smear Total Cells FEW EOSINOPHILS SEEN (NONE SEEN) 05/14/17 18:00 Plt Count 121 Th/cmm (150-750) L 06/04/17 04:47 PT 12.4 SECONDS (9.5-11.5) H 06/07/17 04:40 INR 1.18 (0.5-1.4) 06/07/17 04:40 PTT (Actin FS) 40.8 SECONDS (26.0-38.0) H 06/06/17 05:03 Fibrinogen 168.0 mg/dL (200.0-400.0) L 06/06/17 05:03 D-Dimer 581 ng/mL (100-400) H 06/04/17 04:47 Specimen Source Arterial 06/07/17 09:29 Sample Site Left Radial 06/07/17 09:29 pH 7.48 (7.35-7.45) H 06/07/17 09:29 pCO2 42.0 mmHg (35.0-45.0) 06/07/17 09:29 pO2 71.0 mmHg (80.0-100.0) L 06/07/17 09:29 HCO3 30.4 mEq/L (20.0-26.0) H 06/07/17 09:29 Base Excess 7.1 mEq/L (-3.0-3.0) H 06/07/17 09:29 O2 Saturation 95.0 % (92.0-100.0) 06/07/17 09:29 Feliciano Test Positive 06/07/17 09:29 Vent Rate 4 06/07/17 09:29 Inspired O2 30 06/07/17 09:29 Tidal Volume 500 06/07/17 09:29 PEEP 0 06/06/17 08:45 Pressure (ins/psv/peep) 18 06/07/17 09:29 Critical Value PING 06/07/17 09:29 Sodium 134 mEq/L (136-145) L 06/07/17 04:40 Potassium 3.9 mEq/L (3.5-5.1) 06/07/17 04:40 Chloride 99 mEq/L (98-107) 06/07/17 04:40 Carbon Dioxide 28.4 mEq/L (21.0-31.0) 06/07/17 04:40 Anion Gap 10.5 (7.0-16.0) 06/07/17 04:40 BUN 71 mg/dL (7-25) H 06/07/17 04:40 Creatinine 3.2 mg/dL (0.7-1.3) H 06/07/17 04:40 Est GFR ( Amer) TNP 06/07/17 04:40 Est GFR (Non-Af Amer) TNP 06/07/17 04:40 BUN/Creatinine Ratio 22.2 06/07/17 04:40 Glucose 247 mg/dL (70-105) H 06/07/17 04:40 POC Glucose 146 MG/DL (70 - 105) H 06/07/17 12:02 Hemoglobin A1c % 6.1 % (4.0-6.0) H 05/15/17 06:30 Plasma/Ser Osmolality 301 mOsmol/kg (280-301) 05/14/17 18:20 Whole Bld Lactic Acid 1.58 mmol/L (0.60-1.99) 05/13/17 17:42 Uric Acid 7.7 mg/dL (4.4-7.6) H 05/15/17 06:30 Calcium 8.6 mg/dL (8.6-10.3) 06/07/17 04:40 Phosphorus 2.9 mg/dL (2.5-5.0) 06/07/17 04:40 Magnesium 2.0 mg/dL (1.9-2.7) 06/07/17 04:40 Iron 70 ug/dL (38-169) 06/04/17 04:47 TIBC 94 ug/dL (250-450) L 06/04/17 04:47 Iron Saturation 74 % (15-55) H 06/04/17 04:47 Unsaturated IBC 24 ug/dL (111-343) L 06/04/17 04:47 Ferritin 351 ng/mL (30-400) 06/03/17 04:48 Total Bilirubin 5.5 mg/dL (0.3-1.0) H 06/07/17 04:40 Direct Bilirubin 3.83 mg/dL (0.0-0.2) H 06/07/17 04:40 AST 143 U/L (13-39) H 06/07/17 04:40 ALT 15 U/L (7-52) 06/07/17 04:40 Alkaline Phosphatase 1552 U/L (34-104) H 06/07/17 04:40 Ammonia 65 umol/L (16-53) H 05/19/17 04:50 Creatine Kinase 35 U/L (30-223) 05/16/17 23:06 Troponin I 0.02 ng/mL (0.01-0.05) 05/16/17 23:06 B-Natriuretic Peptide 1480.0 pg/mL (5.0-100.0) H 06/05/17 04:42 Total Protein 5.3 gm/dL (6.0-8.3) L 06/07/17 04:40 Albumin 2.6 gm/dL (4.2-5.5) L 06/07/17 04:40 Globulin 2.7 gm/dL 06/07/17 04:40 Albumin/Globulin Ratio 1.0 (1.0-1.8) 06/07/17 04:40 Prealbumin 6 mg/dL (9-32) L 06/04/17 04:47 Triglycerides 60 mg/dL (<150) 06/04/17 04:47 Cholesterol 63 mg/dL (<200) 06/04/17 04:47 Vitamin B12 >1999 pg/mL (211-946) H 06/04/17 04:47 Folic Acid >20.0 ng/mL (>3.0) 06/04/17 04:47 TSH 2.74 uIU/ml (0.34-5.60) 05/15/17 06:30 Urine Source CATH 06/06/17 10:30 Urine Color YELLOW 06/06/17 10:30 Urine Clarity SL. CLOUDY (CLEAR) 06/06/17 10:30 Urine pH 5.0 (4.6 - 8.0) 06/06/17 10:30 Ur Specific [place] 1.025 (1.005-1.030) 06/06/17 10:30 Urine Protein 100 mg/dL (NEGATIVE) H 06/06/17 10:30 Urine Glucose (UA) NEGATIVE mg/dL (NEGATIVE) 06/06/17 10:30 Urine Ketones NEGATIVE mg/dL (NEGATIVE) 06/06/17 10:30 Urine Blood LARGE (NEGATIVE) H 06/06/17 10:30 Urine Nitrate NEGATIVE (NEGATIVE) 06/06/17 10:30 Urine Bilirubin SMALL (NEGATIVE) H 06/06/17 10:30 Urine Urobilinogen 0.2 E.U./dL (0.2 - 1.0) 06/06/17 10:30 Ur Leukocyte Esterase LARGE (NEGATIVE) H 06/06/17 10:30 Urine RBC 20-30 /hpf (0-5) 06/06/17 10:30 Urine WBC 10-25 /hpf (0-5) H 06/06/17 10:30 Ur Epithelial Cells RARE /lpf (FEW) 06/06/17 10:30 Urine Bacteria f /hpf (NONE SEEN) 06/06/17 10:30 Urine Yeast MODERATE /hpf (NONE SEEN) H 06/06/17 10:30 Ur Random Sodium 30 mmol/L 05/14/17 18:00 Urine Creatinine 36.4 mg/dl (Not Estab.) 05/14/17 18:00 Urine Microalbumin 363.5 ug/mL (Not Estab.) 05/14/17 18:00 Microalb/Creat Ratio 998.6 mg/g creat (0.0-30.0) H 05/14/17 18:00 Stool Occult Blood NEGATIVE (NEGATIVE) 05/25/17 17:49 Random Vancomycin 19.1 ug/mL (5.0-40.0) 05/19/17 04:50 Acetaminophen < 10.0 ug/mL (10.0-30.0) L 06/07/17 04:40 Hepatitis A IgM Ab Negative (Negative) 05/21/17 04:46 Hep Bs Antigen Negative (Negative) 05/21/17 04:46 Hep B Core IgM Ab Negative (Negative) 05/21/17 04:46 Hepatitis C Antibody 0.1 s/co ratio (0.0-0.9) 05/21/17 04:46 Blood Type B POSITIVE 06/04/17 04:47 Antibody Screen NEGATIVE 06/04/17 04:47 Crossmatch See Detail 05/21/17 10:19 - Physical Exam Vitals and I&O: Vital Signs Temp 97.4 F 06/07/17 12:00 Pulse 82 06/07/17 12:00 Resp 13 06/07/17 12:00 BP 105/52 06/07/17 12:00 Pulse Ox 100 06/07/17 12:00 Intake & Output 06/06/17 06/07/17 06/07/17 18:59 06:59 18:59 Intake Total 985 110 395 Output Total 180 45 Balance 805 110 350 Weight (lbs) 65.544 kg 65.544 kg 66.281 kg Intake: Intake, IV Amount 200 50 50 Fluconazole 200mg/100mL 100 200 mg In 100 ml @ 100 mls/hr IV Q24HR [facility] Rx#: [id number] Piperacillin Sodium/ 100 50 50 Tazobact 2.25 gm In Sodium Chloride 0.9% 50 ml @ 100 mls/hr IV Q6HR [facility] Rx#:[id number] Tube Feeding 405 315 TPN/PPN 180 Other 200 60 30 Output: Urine 180 45 Other: # Bowel Movements 0 Active Medications: Current Medications Acetaminophen (Tylenol) 650 mg PO Q4HR PRN PRN Reason: Pain Or Fever above 101 Stop: 07/14/17 15:15 Last Admin: 06/06/17 08:50 Dose: 650 mg Albuterol/Ipratropium (Duoneb Neb) 3 ml HHN Q4HRT [facility] Stop: 07/19/17 14:59 Last Admin: 06/07/17 11:12 Dose: 3 ml Budesonide (Pulmicort) 1 mg HHN BIDRT [facility] Stop: 07/19/17 18:59 Last Admin: 06/07/17 06:52 Dose: 1 mg Calamine/Phenol (Calmoseptine) 1 appl TP QID PRN PRN Reason: Skin Irritation Stop: 08/03/17 12:28 Last Admin: 06/06/17 20:49 Dose: 1 appl Calamine/Phenol (Calmoseptine) 1 appl TP QID [facility] Stop: 08/03/17 12:59 Last Admin: 06/07/17 09:13 Dose: 1 appl Carbidopa/Levodopa (Sinemet 25mg-100 Mg) 1 tab PO TID [facility] Stop: 07/14/17 08:59 Last Admin: 06/07/17 09:12 Dose: Not Given Chlorhexidine Gluconate (Peridex) 15 ml MM 0800,2000 [facility] Stop: 07/23/17 19:59 Last Admin: 06/07/17 08:35 Dose: 15 ml Clonidine HCl (Catapres) 0.1 mg PO Q6HR PRN PRN Reason: BP MAINTENANCE (PER PROTOCOL) Stop: 07/28/17 13:31 Last Admin: 05/29/17 21:04 Dose: 0.1 mg Colistimethate Sodium (Colistin) 75 mg HHN BIDRT [facility] Stop: 07/30/17 18:59 Last Admin: 06/07/17 09:07 Dose: 75 mg Dextrose (D50w) 50 ml IVP PRN PRN; Protocol PRN Reason: HYPOGLYCEMIA Stop: 07/20/17 00:54 Last Admin: 05/22/17 23:34 Dose: 50 ml Diltiazem HCl (Cardizem) 10 mg IVP Q6HR PRN PRN Reason: HR >130 Stop: 07/22/17 17:09 Last Admin: 05/24/17 04:21 Dose: 10 mg Furosemide (Lasix) 40 mg IVP DAILY [facility] Stop: 07/18/17 08:59 Last Admin: 06/07/17 09:11 Dose: 40 mg Hydralazine HCl (Apresoline 20 Mg/Ml) 10 mg IV Q6HR PRN PRN Reason: BP MAINTENANCE (PER PROTOCOL) Stop: 07/30/17 13:09 Last Admin: 06/06/17 12:30 Dose: 10 mg Norepinephrine Bitartrate 8 mg (/ Dextrose) 258 mls @ 0 mls/hr IV TITR PRN; Protocol; Titrate PRN Reason: BP MAINTENANCE (PER PROTOCOL) Stop: 07/19/17 12:29 Last Admin: 05/21/17 01:06 Dose: 10 mcg/min, 19.35 mls/hr Phenylephrine HCl 10 mg/ (Sodium Chloride) 250 mls @ 0 mls/hr IV TITR YESSICA; Per Protocol PRN Reason: Protocol Stop: 07/19/17 12:59 Piperacillin Sod/Tazobactam (Sod 2.25 gm/ Sodium Chloride) 50 mls @ 100 mls/hr IV Q6HR [facility] Stop: 08/05/17 11:59 Last Admin: 06/07/17 12:05 Dose: 100 mls/hr Albumin Human (Albuminar 25%) 25 gm in 100 mls @ 50 mls/hr IV X1 ONE Stop: 06/07/17 14:14 Last Admin: 06/07/17 12:06 Dose: 50 mls/hr Albumin Human (Albuminar 25%) 25 gm in 100 mls @ 50 mls/hr IV X1 ONE Stop: 06/07/17 14:15 Last Admin: 06/07/17 12:10 Dose: 50 mls/hr Insulin Aspart (Novolog Insulin Sliding Scale) 0 units SUBQ Q6HR YESSICA PRN Reason: Protocol Stop: 07/14/17 00:00 Last Admin: 06/07/17 12:04 Dose: Not Given Isosorbide Dinitrate (Isordil) 20 mg GT TID YESSICA Stop: 07/28/17 13:33 Last Admin: 06/07/17 09:13 Dose: Not Given Lactobacillus Rhamnosus (Culturelle) 1 each PO DAILY [facility] Stop: 07/17/17 08:59 Last Admin: 06/07/17 09:13 Dose: Not Given Levetiracetam (Keppra) 250 mg NG BID [facility] Stop: 07/14/17 08:59 Last Admin: 06/07/17 09:13 Dose: Not Given Metoclopramide HCl (Reglan) 5 mg IVP TID [facility] Stop: 07/20/17 20:59 Last Admin: 06/07/17 09:13 Dose: Not Given Metoprolol Tartrate (Lopressor) 50 mg GT Q8H [facility] Stop: 07/18/17 08:59 Last Admin: 06/07/17 09:13 Dose: Not Given Miscellaneous (Vte Chemical Prophylaxis Screen/ Admission) 1 ea MC PRN PRN PRN Reason: PROTOCOL Stop: 07/14/17 09:25 Miscellaneous (Clinical Monitoring) 1 ea MC DAILY PRN PRN Reason: RENAL Stop: 07/15/17 12:32 Miscellaneous (Probiotic Screen) 1 ea PRN PRN PRN Reason: PROTOCOL Stop: 07/16/17 09:33 Pantoprazole Sodium (Protonix) 40 mg GT DAILY YESSICA Stop: 07/14/17 08:59 Last Admin: 06/07/17 09:14 Dose: Not Given General: No acute distress, no Alert HEENT: Atraumatic Neck: Supple, +2 carotid pulse wo bruit Cardiovascular: Regular rate, Normal S1, Normal S2 Lungs: Other (rhonchi bilaterally) Abdomen: Soft, no Tender Extremities: no Edema (no edema) Neurological: Sensation intact, Other (opens eyes upon verbal command) Skin: no Rash Psych/Mental Status: Mood NL - Procedures Procedures: Procedures Procedure Code Date INSERT EMERGENCY AIRWAY 73042 05/13/17 INSERT TUNNELED CV CATH 90605 05/13/17 INSERTION OF ENDOTRACHEAL AIRWAY INTO TRACHEA, VIA OPENING [id number] 05/13/17 INSERTION OF INFUSION DEV INTO R FEMOR VEIN, PERC APPROACH [id number] 05/13/17 RESPIRATORY VENTILATION, GREATER THAN 96 CONSECUTIVE HOURS [id number] 05/13/17 VENT MGMT INPAT INIT DAY 55640 05/13/17 Assessment/Plan - Problem List Patient Problems: All Active Problems COUGH AND CONGESTION (Acute) Congestive heart failure (CHF) (Acute) I50.9 congestive heart failure (Acute) hypertension uncontrolled with bradycarda (Acute) renal failure (Acute) - Assessment Assessment: NICK on CKD, now on dialysis A LOC secondary to metabolic encephalopathy/medications Dehydration Essential hypertension with CKD COPD Chronic atrial fibrillation Status post CVA Aspiration pneumonia/dysphagia status post PEG Type 2 diabetes mellitus with CKD Acute Decompensated CHF Acute Resp Failure on Vent Acute liver failure 2nd to congestion; possible meds ? Diflucan, Keppra, TPN - Plan Plan: Lab - Result Diagrams 05/15/17 06:30 05/15/17 06:30 Current Medications Acetaminophen (Tylenol) 650 mg PO Q4HR PRN PRN Reason: Pain Or Fever above 101 Stop: 07/14/17 15:15 Last Admin: 05/15/17 16:21 Dose: 650 mg Albuterol Sulfate (Albuterol 2.5mg/3ml Neb Ud) 2.5 mg HHN Q6HRT YESSICA Stop: 07/14/17 00:59 Last Admin: 05/15/17 16:05 Dose: 2.5 mg Atorvastatin Calcium (Lipitor) 10 mg GT HS YESSICA PRN Reason: Protocol Stop: 07/14/17 20:59 Carbidopa/Levodopa (Sinemet 25mg-100 Mg) 1 tab PO TID [facility] Stop: 07/14/17 08:59 Last Admin: 05/15/17 14:02 Dose: 1 tab Heparin Sodium (Porcine) (Heparin) 5,000 units SUBQ Q8H [facility] Stop: 07/14/17 14:59 Last Admin: 05/15/17 16:24 Dose: 5,000 units Sodium Chloride (Nacl 0.9%) 1,000 mls @ 60 mls/hr IV .[id number] [facility] Stop: 07/13/17 06:40 Last Admin: 05/14/17 17:16 Dose: 60 mls/hr Azithromycin 250 mg/ Sodium (Chloride) 250 mls @ 250 mls/hr IV Q24HR [facility] Stop: 05/20/17 08:59 Piperacillin Sod/Tazobactam (Sod 3.375 gm/ Sodium Chloride) 50 mls @ 100 mls/ hr IV Q8HR [facility] Stop: 07/14/17 15:14 Last Admin: 05/15/17 15:57 Dose: 100 mls/hr Insulin Aspart (Novolog Insulin Sliding Scale) 0 units SUBQ Q6HR [facility] PRN Reason: Protocol Stop: 07/14/17 00:00 Last Admin: 05/15/17 17:09 Dose: Not Given Insulin Detemir (Levemir Insulin) 14 units SUBQ DAILY [facility] PRN Reason: Protocol Stop: 07/15/17 08:59 Isosorbide Dinitrate (Isordil) 10 mg GT TID [facility] Stop: 07/14/17 08:59 Last Admin: 05/15/17 14:02 Dose: 10 mg Lactulose (Cephulac) 20 gm PO TID [facility] Stop: 07/14/17 08:59 Last Admin: 05/15/17 14:02 Dose: 20 gm Levetiracetam (Keppra) 250 mg NG BID [facility] Stop: 07/14/17 08:59 Last Admin: 05/15/17 16:23 Dose: 250 mg Metoprolol Tartrate (Lopressor) 37.5 mg GT BID [facility] Stop: 07/14/17 00:14 Last Admin: 05/15/17 16:22 Dose: 37.5 mg Miscellaneous (Vte Chemical Prophylaxis Screen/ Admission) 1 ea MC PRN PRN PRN Reason: PROTOCOL Stop: 07/14/17 09:25 Morphine Sulfate (Morphine) 2 mg IVP Q3H PRN PRN Reason: PAIN Stop: 07/13/17 19:46 Last Admin: 05/14/17 21:16 Dose: 2 mg Mupirocin (Bactroban Oint) 1 appl TP BID YESSICA Stop: 07/14/17 16:59 Last Admin: 05/15/17 16:24 Dose: 1 appl Pantoprazole Sodium (Protonix) 40 mg GT DAILY YESSICA Stop: 07/14/17 08:59 Last Admin: 05/15/17 08:36 Dose: 40 mg Rifaximin (Xifaxan) 550 mg GT BID [facility] Stop: 07/14/17 08:59 Last Admin: 05/15/17 16:23 Dose: 550 mg Latest BUN/CR were 71/3.2 White 9 on Zosyn, dc Diflucan Chest x-ray still w/ b/l infiltrates, effusions, no significant change Reviewed his meds Follow-up electrolytes increase nephro for more calories @ 45 ml/hr prognosis poor Hgb/Hct up to 8.9/26.3 currently being dialyzed Follow-up electrolytes, CBC and chest x-ray in a.m. BNP still elevated @ 1480 Lab - Result Diagrams 05/24/17 04:49 05/24/17 04:49 addendum: Poor response to diuretics, w/ worsening CHF, BNP level developed resp failure, required intubation worsening cardio-renal syndrome discussed w/ grandson Pedro, about poor prognosis but still want to proceed w/ dialysis Nutritional Asmnt/Malnutr-PDOC - Dietary Evaluation Malnutrition Findings (Please click <Entered> for more info): Nutritional Asmnt/Malnutrition Start: 05/15/17 13: 56 Text: Status: Complete Freq: Document 05/15/17 13:56 GSTHALIA (Rec: 05/15/17 14:18 DARON [email or web address]) Nutritional Asmnt/Malnutrition Patient General Information Nutritional Screening High Risk Screening Diagnosis PNA, NICK, icnreasing renal failure, CVA, CHF, DM Pertinent Medical Hx/Surgical Hx CVA, dementia, afib, CAD, HTN, dyslipidemia, epilepsy, GERD, aspiration PNA, DM, CKD, dehydration, C. diff, anemia D Subjective Information 86 year old male from SNF. Pt greeted RD. Pt is overall thin , moderate to severe wasting to chest, clavicles, extremities. Observed Glytrol running at 60ml/hr x20hrs during visit. Unable to obtain CBW due to bedscale not calibrated. Discussed with YVETTE Farooq regarding tube feeding recommendations. Current Diet Order/ Nutrition Support Glytrol at 60ml/hr x 20hrs, providing 1200kcal 54g protein Pertinent Medications Lipitor, Novolog, Levemir, Cephulac, Morphine, Protonix, Nacl 0.9% Pertinent Labs 05/13: potassium 5.3H, BUN 80H, creatinine 2.4H, glucose 103 05/15: potassium WNL, BUN 70H, creatinine 2.4H, glucose 239H, A1c 6.1H, phosphorus 5.4H Nutritional Hx/Data Height 1.68 m Height (Calculated Centimeters) 167.6 Current Weight (lbs) 65.771 kg Weight (Calculated Kilograms) 65.8 Weight (Calculated Grams) 41806.9 [place] Body Weight 142 Weight Status Approriate GI Symptoms Difficult in: Swallowing Cultural/Ethnic/Worship Belief [facility]: Glucerna 1.2 at 85ml/hr x 20hrs, providing 2040kcal, promote weight gain. Skin Integrity/Comment: Gee 12. Skin intact. Estimated Nutritional Goals Calories/Kcals/Kg CBW 145lb/65.9kg Kcals Calculated 1976-7kcal (30-35kcal/kg) Protein Calculated 46-92g (0.7-1.4g/kg, renal vs moderate to severe wasting) Fluid: ml Per MD (renal) Nutritional Problem 2. 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 Problem Problem Inadequate intake from enteral nutrition infusion related to Etiology estimated nutritional needs aeb Signs/Symptoms: providing to meet 61% lower end kcal needs Intervention/Recommendation Comments 1. Recommend Novasource Renal at 50ml/hr x 20hrs, providing 2000kcal and 91g protein. Current order Glytrol at 60ml/ hr x 20hrs is only providing 1200kcal, pt recieves 2040kcal at [facility]. Expected Outcomes/Goals Expected Outcomes/Goals 1. Pt to meet at least 100% of estimated nutritional needs on tube feeding with tolerance .
--- NOTE | 2017-06-07 15:00 | General Progress Note ---
Subjective - Review of Systems Service Date: 06/07/17 Subjective: Patient seen and examined afebrile today s/p HD this am more awake Nurse reported that she held G tube feeding this am due to high residual Objective - Results Result Diagrams: 06/07/17 04:40 06/07/17 04:40 Recent Labs: Laboratory Last Values WBC 9.0 Th/cmm (4.8-10.8) D 06/07/17 04:40 RBC 3.17 Mil/cmm (3.80-5.80) L 06/07/17 04:40 Hgb 8.9 gm/dL (12.6-17.4) L 06/07/17 04:40 Hct 26.3 % (39.0-49.0) L 06/07/17 04:40 MCV 82.8 fl (80-99) 06/07/17 04:40 MCH 28.0 pg (27.0-31.0) 06/07/17 04:40 MCHC Differential 33.8 pg (28.0-36.0) 06/07/17 04:40 RDW 16.6 % (11.5-20.0) 06/07/17 04:40 Plt Count 97 Th/cmm (150-400) L 06/07/17 04:40 MPV 13.1 fl 06/07/17 04:40 Neutrophils % 75.9 % (40.0-80.0) 06/07/17 04:40 Band Neutrophils % 5 % (0-10) 06/05/17 04:42 Lymphocytes % 10.1 % (20.0-50.0) L 06/07/17 04:40 Monocytes % 13.0 % (2.0-10.0) H 06/07/17 04:40 Eosinophils % 0.3 % (0.0-5.0) 06/07/17 04:40 Basophils % 0.7 % (0.0-2.0) 06/07/17 04:40 Neutrophils (Manual) 70 % (40-80) 06/06/17 05:03 Lymphocytes 10 % (20-50) L 06/06/17 05:03 Monocytes 16 % (2-10) H 06/06/17 05:03 Eosinophils 1 % (0-5) 06/06/17 05:03 Basophils 0 % (0-3) 05/24/17 04:49 Metamyelocytes 1 % (0-0) H 06/06/17 05:03 Atypical Lymphocytes 2 % 06/06/17 05:03 Toxic Granulation 1+ 05/23/17 04:48 Platelet Estimate DECREASED PLATELETS (NORMAL) 06/06/17 05:03 Platelet Morphology GIANT PLATELETS SEEN (NORMAL) 06/06/17 05:03 Poikilocytosis 1+ 06/06/17 05:03 Anisocytosis 1+ 06/06/17 05:03 Target Cells 1+ 06/06/17 05:03 RBC Morph Micro Appear ABNORMAL (NORMAL) 06/06/17 05:03 Eos Smear Source URINE 05/14/17 18:00 Eos Smear Total Cells FEW EOSINOPHILS SEEN (NONE SEEN) 05/14/17 18:00 Plt Count 121 Th/cmm (150-750) L 06/04/17 04:47 PT 12.4 SECONDS (9.5-11.5) H 06/07/17 04:40 INR 1.18 (0.5-1.4) 06/07/17 04:40 PTT (Actin FS) 40.8 SECONDS (26.0-38.0) H 06/06/17 05:03 Fibrinogen 168.0 mg/dL (200.0-400.0) L 06/06/17 05:03 D-Dimer 581 ng/mL (100-400) H 06/04/17 04:47 Specimen Source Arterial 06/07/17 09:29 Sample Site Left Radial 06/07/17 09:29 pH 7.48 (7.35-7.45) H 06/07/17 09:29 pCO2 42.0 mmHg (35.0-45.0) 06/07/17 09:29 pO2 71.0 mmHg (80.0-100.0) L 06/07/17 09:29 HCO3 30.4 mEq/L (20.0-26.0) H 06/07/17 09:29 Base Excess 7.1 mEq/L (-3.0-3.0) H 06/07/17 09:29 O2 Saturation 95.0 % (92.0-100.0) 06/07/17 09:29 Feliciano Test Positive 06/07/17 09:29 Vent Rate 4 06/07/17 09:29 Inspired O2 30 06/07/17 09:29 Tidal Volume 500 06/07/17 09:29 PEEP 0 06/06/17 08:45 Pressure (ins/psv/peep) 18 06/07/17 09:29 Critical Value PING 06/07/17 09:29 Sodium 134 mEq/L (136-145) L 06/07/17 04:40 Potassium 3.9 mEq/L (3.5-5.1) 06/07/17 04:40 Chloride 99 mEq/L (98-107) 06/07/17 04:40 Carbon Dioxide 28.4 mEq/L (21.0-31.0) 06/07/17 04:40 Anion Gap 10.5 (7.0-16.0) 06/07/17 04:40 BUN 71 mg/dL (7-25) H 06/07/17 04:40 Creatinine 3.2 mg/dL (0.7-1.3) H 06/07/17 04:40 Est GFR ( Amer) TNP 06/07/17 04:40 Est GFR (Non-Af Amer) TNP 06/07/17 04:40 BUN/Creatinine Ratio 22.2 06/07/17 04:40 Glucose 247 mg/dL (70-105) H 06/07/17 04:40 POC Glucose 146 MG/DL (70 - 105) H 06/07/17 12:02 Hemoglobin A1c % 6.1 % (4.0-6.0) H 05/15/17 06:30 Plasma/Ser Osmolality 301 mOsmol/kg (280-301) 05/14/17 18:20 Whole Bld Lactic Acid 1.58 mmol/L (0.60-1.99) 05/13/17 17:42 Uric Acid 7.7 mg/dL (4.4-7.6) H 05/15/17 06:30 Calcium 8.6 mg/dL (8.6-10.3) 06/07/17 04:40 Phosphorus 2.9 mg/dL (2.5-5.0) 06/07/17 04:40 Magnesium 2.0 mg/dL (1.9-2.7) 06/07/17 04:40 Iron 70 ug/dL (38-169) 06/04/17 04:47 TIBC 94 ug/dL (250-450) L 06/04/17 04:47 Iron Saturation 74 % (15-55) H 06/04/17 04:47 Unsaturated IBC 24 ug/dL (111-343) L 06/04/17 04:47 Ferritin 351 ng/mL (30-400) 06/03/17 04:48 Total Bilirubin 5.5 mg/dL (0.3-1.0) H 06/07/17 04:40 Direct Bilirubin 3.83 mg/dL (0.0-0.2) H 06/07/17 04:40 AST 143 U/L (13-39) H 06/07/17 04:40 ALT 15 U/L (7-52) 06/07/17 04:40 Alkaline Phosphatase 1552 U/L (34-104) H 06/07/17 04:40 Ammonia 65 umol/L (16-53) H 05/19/17 04:50 Creatine Kinase 35 U/L (30-223) 05/16/17 23:06 Troponin I 0.02 ng/mL (0.01-0.05) 05/16/17 23:06 B-Natriuretic Peptide 1480.0 pg/mL (5.0-100.0) H 06/05/17 04:42 Total Protein 5.3 gm/dL (6.0-8.3) L 06/07/17 04:40 Albumin 2.6 gm/dL (4.2-5.5) L 06/07/17 04:40 Globulin 2.7 gm/dL 06/07/17 04:40 Albumin/Globulin Ratio 1.0 (1.0-1.8) 06/07/17 04:40 Prealbumin 6 mg/dL (9-32) L 06/04/17 04:47 Triglycerides 60 mg/dL (<150) 06/04/17 04:47 Cholesterol 63 mg/dL (<200) 06/04/17 04:47 Vitamin B12 >1999 pg/mL (211-946) H 06/04/17 04:47 Folic Acid >20.0 ng/mL (>3.0) 06/04/17 04:47 TSH 2.74 uIU/ml (0.34-5.60) 05/15/17 06:30 Urine Source CATH 06/06/17 10:30 Urine Color YELLOW 06/06/17 10:30 Urine Clarity SL. CLOUDY (CLEAR) 06/06/17 10:30 Urine pH 5.0 (4.6 - 8.0) 06/06/17 10:30 Ur Specific [place] 1.025 (1.005-1.030) 06/06/17 10:30 Urine Protein 100 mg/dL (NEGATIVE) H 06/06/17 10:30 Urine Glucose (UA) NEGATIVE mg/dL (NEGATIVE) 06/06/17 10:30 Urine Ketones NEGATIVE mg/dL (NEGATIVE) 06/06/17 10:30 Urine Blood LARGE (NEGATIVE) H 06/06/17 10:30 Urine Nitrate NEGATIVE (NEGATIVE) 06/06/17 10:30 Urine Bilirubin SMALL (NEGATIVE) H 06/06/17 10:30 Urine Urobilinogen 0.2 E.U./dL (0.2 - 1.0) 06/06/17 10:30 Ur Leukocyte Esterase LARGE (NEGATIVE) H 06/06/17 10:30 Urine RBC 20-30 /hpf (0-5) 06/06/17 10:30 Urine WBC 10-25 /hpf (0-5) H 06/06/17 10:30 Ur Epithelial Cells RARE /lpf (FEW) 06/06/17 10:30 Urine Bacteria f /hpf (NONE SEEN) 06/06/17 10:30 Urine Yeast MODERATE /hpf (NONE SEEN) H 06/06/17 10:30 Ur Random Sodium 30 mmol/L 05/14/17 18:00 Urine Creatinine 36.4 mg/dl (Not Estab.) 05/14/17 18:00 Urine Microalbumin 363.5 ug/mL (Not Estab.) 05/14/17 18:00 Microalb/Creat Ratio 998.6 mg/g creat (0.0-30.0) H 05/14/17 18:00 Stool Occult Blood NEGATIVE (NEGATIVE) 05/25/17 17:49 Random Vancomycin 19.1 ug/mL (5.0-40.0) 05/19/17 04:50 Acetaminophen < 10.0 ug/mL (10.0-30.0) L 06/07/17 04:40 Hepatitis A IgM Ab Negative (Negative) 05/21/17 04:46 Hep Bs Antigen Negative (Negative) 05/21/17 04:46 Hep B Core IgM Ab Negative (Negative) 05/21/17 04:46 Hepatitis C Antibody 0.1 s/co ratio (0.0-0.9) 05/21/17 04:46 Blood Type B POSITIVE 06/04/17 04:47 Antibody Screen NEGATIVE 06/04/17 04:47 Crossmatch See Detail 05/21/17 10:19 - Physical Exam Vitals and I&O: Vital Signs Temp 97.4 F 06/07/17 14:00 Pulse 116 06/07/17 14:00 Resp 22 06/07/17 14:00 BP 136/63 06/07/17 14:00 Pulse Ox 94 06/07/17 14:00 Intake & Output 06/06/17 06/07/17 06/07/17 18:59 06:59 18:59 Intake Total 985 110 645 Output Total 180 45 Balance 805 110 600 Weight (lbs) 65.544 kg 65.544 kg 66.281 kg Intake: Intake, IV Amount 200 50 300 Albumin 25% 25gm/100mL 25 100 gm In 100 ml @ 50 mls/hr IV X1 ONE Rx#:[id number] Albumin 25% 25gm/100mL 25 100 gm In 100 ml @ 50 mls/hr IV X1 ONE Rx#:[id number] Fluconazole 200mg/100mL 100 200 mg In 100 ml @ 100 mls/hr IV Q24HR [facility] Rx#: [id number] Piperacillin Sodium/ 100 50 100 Tazobact 2.25 gm In Sodium Chloride 0.9% 50 ml @ 100 mls/hr IV Q6HR [facility] Rx#:[id number] Tube Feeding 405 315 TPN/PPN 180 Other 200 60 30 Output: Urine 180 45 Other: # Bowel Movements 0 Active Medications: Current Medications Acetaminophen (Tylenol) 650 mg PO Q4HR PRN PRN Reason: Pain Or Fever above 101 Stop: 07/14/17 15:15 Last Admin: 06/06/17 08:50 Dose: 650 mg Albuterol/Ipratropium (Duoneb Neb) 3 ml HHN Q4HRT [facility] Stop: 07/19/17 14:59 Last Admin: 06/07/17 11:12 Dose: 3 ml Budesonide (Pulmicort) 1 mg HHN BIDRT [facility] Stop: 07/19/17 18:59 Last Admin: 08/05/17 06:52 Dose: 1 mg Calamine/Phenol (Calmoseptine) 1 appl TP QID PRN PRN Reason: Skin Irritation Stop: 08/03/17 12:28 Last Admin: 06/06/17 20:49 Dose: 1 appl Calamine/Phenol (Calmoseptine) 1 appl TP QID [facility] Stop: 08/03/17 12:59 Last Admin: 06/07/17 13:45 Dose: 1 appl Carbidopa/Levodopa (Sinemet 25mg-100 Mg) 1 tab PO TID [facility] Stop: 07/14/17 08:59 Last Admin: 06/07/17 13:45 Dose: 1 tab Chlorhexidine Gluconate (Peridex) 15 ml MM 0800,1999 [facility] Stop: 07/23/17 19:59 Last Admin: 06/07/17 08:35 Dose: 15 ml Clonidine HCl (Catapres) 0.1 mg PO Q6HR PRN PRN Reason: BP MAINTENANCE (PER PROTOCOL) Stop: 07/28/17 13:31 Last Admin: 05/29/17 21:04 Dose: 0.1 mg Colistimethate Sodium (Colistin) 75 mg HHN BIDRT [facility] Stop: 07/30/17 18:59 Last Admin: 06/07/17 09:07 Dose: 75 mg Dextrose (D50w) 50 ml IVP PRN PRN; Protocol PRN Reason: HYPOGLYCEMIA Stop: 07/20/17 00:54 Last Admin: 05/22/17 23:34 Dose: 50 ml Diltiazem HCl (Cardizem) 10 mg IVP Q6HR PRN PRN Reason: HR >130 Stop: 07/22/17 17:09 Last Admin: 05/24/17 04:21 Dose: 10 mg Furosemide (Lasix) 40 mg IVP DAILY [facility] Stop: 07/18/17 08:59 Last Admin: 06/07/17 09:11 Dose: 40 mg Hydralazine HCl (Apresoline 20 Mg/Ml) 10 mg IV Q6HR PRN PRN Reason: BP MAINTENANCE (PER PROTOCOL) Stop: 07/30/17 13:09 Last Admin: 06/06/17 12:30 Dose: 10 mg Norepinephrine Bitartrate 8 mg (/ Dextrose) 258 mls @ 0 mls/hr IV TITR PRN; Protocol; Titrate PRN Reason: BP MAINTENANCE (PER PROTOCOL) Stop: 07/19/17 12:29 Last Admin: 05/21/17 01:06 Dose: 10 mcg/min, 19.35 mls/hr Phenylephrine HCl 10 mg/ (Sodium Chloride) 250 mls @ 0 mls/hr IV TITR YESSICA; Per Protocol PRN Reason: Protocol Stop: 07/19/17 12:59 Piperacillin Sod/Tazobactam (Sod 2.25 gm/ Sodium Chloride) 50 mls @ 100 mls/hr IV Q6HR YESSICA Stop: 08/05/17 11:59 Last Infusion: 06/07/17 12:35 Dose: Infused Insulin Aspart (Novolog Insulin Sliding Scale) 0 units SUBQ Q6HR YESSICA PRN Reason: Protocol Stop: 07/14/17 00:00 Last Admin: 06/07/17 12:04 Dose: Not Given Isosorbide Dinitrate (Isordil) 20 mg GT TID [facility] Stop: 07/28/17 13:33 Last Admin: 06/07/17 13:45 Dose: 20 mg Lactobacillus Rhamnosus (Culturelle) 1 each PO DAILY [facility] Stop: 07/17/17 08:59 Last Admin: 06/07/17 09:13 Dose: Not Given Levetiracetam (Keppra) 250 mg NG BID [facility] Stop: 07/14/17 08:59 Last Admin: 06/07/17 09:13 Dose: Not Given Metoclopramide HCl (Reglan) 5 mg IVP TID [facility] Stop: 07/20/17 20:59 Last Admin: 06/07/17 13:45 Dose: 5 mg Metoprolol Tartrate (Lopressor) 50 mg GT Q8H [facility] Stop: 07/18/17 08:59 Last Admin: 06/07/17 09:13 Dose: Not Given Miscellaneous (Vte Chemical Prophylaxis Screen/ Admission) 1 ea MC PRN PRN PRN Reason: PROTOCOL Stop: 07/14/17 09:25 Miscellaneous (Clinical Monitoring) 1 ea MC DAILY PRN PRN Reason: RENAL Stop: 07/15/17 12:32 Miscellaneous (Probiotic Screen) 1 ea MC PRN PRN PRN Reason: PROTOCOL Stop: 07/16/17 09:33 Pantoprazole Sodium (Protonix) 40 mg GT DAILY [facility] Stop: 07/14/17 08:59 Last Admin: 06/07/17 09:14 Dose: Not Given General: No acute distress, no Alert Cardiovascular: Other (mild tachycardia) Lungs: Other (rhonchi bilaterally) Abdomen: Soft, no Tender Extremities: no Edema (no edema) Skin: Rash - Procedures Procedures: Procedures Procedure Code Date INSERT EMERGENCY AIRWAY 48065 05/13/17 INSERT TUNNELED CV CATH 49901 05/13/17 INSERTION OF ENDOTRACHEAL AIRWAY INTO TRACHEA, VIA OPENING [id number] 05/13/17 INSERTION OF INFUSION DEV INTO R FEMOR VEIN, PERC APPROACH [id number] 05/13/17 RESPIRATORY VENTILATION, GREATER THAN 96 CONSECUTIVE HOURS [id number] 05/13/17 VENT MGMT INPAT INIT DAY 52505 05/13/17 Assessment/Plan - Problem List Patient Problems: All Active Problems COUGH AND CONGESTION (Acute) Congestive heart failure (CHF) (Acute) I50.9 congestive heart failure (Acute) hypertension uncontrolled with bradycarda (Acute) renal failure (Acute) - Assessment Assessment: Current Active Problems Problem Status Onset COUGH AND CONGESTION Acute Acute respiratory failure vent dependant Renal failure improving on HD MDRO Pneumonia Afib RVR UTI CAD DIC 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 HTN renal disease Seizure disorder - Plan Plan: Monitor fever HD Trach per general surgery Heparin sub Q Cardizem iv prn Metoprolol Colistin per ID rec HD per nephrology rec Continue vent support PPN started for nutritional support tube feeding Plan of care discussed with nursing staff Nutritional Asmnt/Malnutr-PDOC - Dietary Evaluation Malnutrition Findings (Please click <Entered> for more info): Nutritional Asmnt/Malnutrition Start: 05/15/17 13: 56 Text: Status: Complete Freq: Document 05/15/17 13:56 GSUN (Rec: 05/15/17 14:18 GSUN [id number]) Nutritional Asmnt/Malnutrition Patient General Information Nutritional Screening High Risk Screening Diagnosis PNA, NICK, icnreasing renal failure, CVA, CHF, DM Pertinent Medical Hx/Surgical Hx CVA, dementia, afib, CAD, HTN, dyslipidemia, epilepsy, GERD, aspiration PNA, DM, CKD, dehydration, C. diff, anemia D Subjective Information 86 year old male from SNF. Pt greeted RD. Pt is overall thin , moderate to severe wasting to chest, clavicles, extremities. Observed Glytrol running at 60ml/hr x20hrs during visit. Unable to obtain CBW due to bedscale not calibrated. Discussed with YVETTE Farooq regarding tube feeding recommendations. Current Diet Order/ Nutrition Support Glytrol at 60ml/hr x 20hrs, providing 1200kcal 54g protein Pertinent Medications Lipitor, Novolog, Levemir, Cephulac, Morphine, Protonix, Nacl 0.9% Pertinent Labs 05/13: potassium 5.3H, BUN 80H, creatinine 2.4H, glucose 103 05/15: potassium WNL, BUN 70H, creatinine 2.4H, glucose 239H, A1c 6.1H, phosphorus 5.4H Nutritional Hx/Data Height 1.68 m Height (Calculated Centimeters) 167.6 Current Weight (lbs) 65.771 kg Weight (Calculated Kilograms) 65.8 Weight (Calculated Grams) 16971.9 [place] Body Weight 142 Weight Status Approriate GI Symptoms Difficult in: Swallowing Cultural/Ethnic/Holiness Belief [facility]: Glucerna 1.2 at 85ml/hr x 20hrs, providing 2040kcal, promote weight gain. Skin Integrity/Comment: Gee Novak. Skin intact. Estimated Nutritional Goals Calories/Kcals/Kg CBW 145lb/65.9kg Kcals Calculated 1976-2307kcal (30-35kcal/kg) Protein Calculated 46-92g (0.7-1.4g/kg, renal vs moderate to severe wasting) Fluid: ml Per MD (renal) Nutritional Problem 2. Problem Problem Impaired nutrient utilization related to Etiology NICK, hx CKD aeb Signs/Symptoms: "increasing renal failure," potaasum 5.3H on adm, BUN 70H, templer head 2.4H, phosphorus 5.4H 1. Problem Problem Inadequate intake from enteral nutrition infusion related to Etiology estimated nutritional needs aeb Signs/Symptoms: providing to meet 61% lower end kcal needs Intervention/Recommendation Comments 1. Recommend Novasource Renal at 50ml/hr x 20hrs, providing 2000kcal and 91g protein. Current order Glytrol at 60ml/ hr x 20hrs is only providing 1200kcal, pt recieves 2040kcal at [facility]. Expected Outcomes/Goals Expected Outcomes/Goals 1. Pt to meet at least 100% of estimated nutritional needs on tube feeding with tolerance .
[2017-06-07] MEDS ORDERED: Morphine Sulfate 2 mg/mL 1mL Syr ONE (15:10)
[2017-06-07] MEDS: Morphine Sulfate 2 mg/mL 1mL Syr IVP PRN (15:15)
--- NOTE | 2017-06-07 19:49 | Progress Notes ---
DATE: 06/07/2017 SUBJECTIVE: Events noted, the patient is n.p.o. for ultrasound. OBJECTIVE: VITAL SIGNS: Noted. GENERAL: The patient is well-developed, chronically ill-appearing male in no acute distress. HEENT: Endotracheal tube is intact attached to the ventilator. CARDIOVASCULAR: Regular rate and rhythm. LUNGS: With occasional rhonchi at the base. ABDOMEN: Soft, nontender, intact G-tube. EXTREMITIES: No edema. LABORATORY DATA AND IMAGING: WBC 9, hemoglobin 8.9, platelet count is 97,000. INR is 1.18. Creatinine is 3.2, bilirubin is up to 5.5. AST is up to 143, ALT is normal at 15, alkaline phosphatase is 1532, albumin is 2.6. Tylenol level is negative. Abdominal ultrasound is pending. IMPRESSION: 1. Abnormal liver enzymes, could be from medication-induced hepatotoxicity, suggest TPN or Lipitor. Diflucan was recently started for sepsis, but this will need to be held due to abnormal liver enzymes, less likely also could be from sepsis or biliary obstruction, etc. 2. History of old stroke. 3. Respiratory failure. 4. Sepsis and leukocytosis, now improved. 5. Anemia. 6. Dysphagia and G-tube insertion. RECOMMENDATIONS: 1. Avoid hepatotoxic agents. We will stop Diflucan. Stop Lipitor and TPN previously. 2. Monitor liver synthetic function and liver enzymes. 3. Follow up liver labs. 4. Follow up abdominal ultrasound results. 5. Monitor hemoglobin. 6. G-tube feedings to be resumed after ultrasound. [facility]# [id number]
[2017-06-07] MEDS: Menthol/Zinc Oxide Oint 113gm Tube TP PRN ×2 (20:36→21:00)
--- NOTE | 2017-06-07 22:09 | Progress Notes ---
DATE: 06/07/2017 PULMONARY PROGRESS NOTE PROBLEM LIST: 1. Persistent respiratory failure. 2. Bilateral infiltrate effusion. 3. Significant . Though awake, but not moving any other extremities, etc. PHYSICAL EXAMINATION: GENERAL: Not in any acute distress. VITAL SIGNS: Temperature is 97.4, heart rate 110-120, blood pressure 136/70, saturation in 90s on SIMV of 4 with pressure support. NECK: Veins not visualized. CHEST: Shows diminished air entry with occasional rhonchi. HEART: Irregular. ABDOMEN: Soft and nontender. EXTREMITIES: Some edematous changes on all the four extremities. LABORATORY DATA: White count is 9000, hemoglobin 8.9. ABG, pO2 of 71 on SIMV of 4. ASSESSMENT: The patient is clinically status quo, not too much changed. PLANS AND SUGGESTIONS: We will continue current treatment. I have discussed with Dr. Charmaine ceja in a day or two. Continue supportive care. Not a candidate to extubate. JOB# [id number]
[2017-06-08] MEDS: Albuterol/Ipratropium Neb 3 ML AERS HHN SCH ×6 (04:10→22:14)
[2017-06-08] MEDS: Piperacillin/Tazobact 2.25 gm in 0.9% NS 50 ML IV SCH ×4 (05:50→23:42)
[2017-06-08 06:59] LABS: % BASOPHILS 0.8 % (0.0-2.0); % EOSINOPHILS 1.4 % (0.0-5.0); % LYMPHOCYTES 12.5 % (20.0-50.0); % MONOCYTES 14.9 % (2.0-10.0); % NEUTROPHILS 70.4 % (40.0-80.0); MEAN CELL VOLUME 81.8 fl (80-99); MEAN CORPUSCULAR HEMOGLOBIN 28.4 pg (27.0-31.0); MEAN CORPUSCULAR HGB CONC 34.8 pg (28.0-36.0); MEAN PLATELET VOLUME 12.4 fl; NEUTROPHILE ABSOLUTE 4.9 Th/cmm (1.8-8.0); PLATELET COUNT 79 Th/cmm (150-400); RED CELL DISTRIBUTION WIDTH 16.9 % (11.5-20.0)
[2017-06-08 07:11] LABS: WHITE BLOOD COUNT 7.2 Th/cmm (4.8-10.8)
[2017-06-08 07:12] LABS: HEMATOCRIT 24.7 % (39.0-49.0); HEMOGLOBIN 8.6 gm/dL (12.6-17.4)
[2017-06-08 07:35] LABS: INR 1.21 (0.5-1.4); PROTHROMBIN TIME (TEST) 12.7 SECONDS (9.5-11.5)
[2017-06-08 07:36] LABS: ALB/GLOB RATIO 1.2 (1.0-1.8); ALKALINE PHOSPHATASE 2019 U/L (34-104); ANION GAP 10.3 (7.0-16.0); BILIRUBIN,TOTAL 7.7 mg/dL (0.3-1.0); BUN - UREA NITROGEN 51 mg/dL (7-25); BUN/CREATININE RATIO 19.6; CALCIUM SERUM 8.9 mg/dL (8.6-10.3); CARBON DIOXIDE 30.3 mEq/L (21.0-31.0); CHLORIDE 99 mEq/L (98-107); CREATININE - SERUM 2.6 mg/dL (0.7-1.3); GLUCOSE 133 mg/dL (70-105); MAGNESIUM 1.8 mg/dL (1.9-2.7); PHOSPHOROUS 2.5 mg/dL (2.5-5.0); POTASSIUM SERUM 3.6 mEq/L (3.5-5.1); SGOT 242 U/L (13-39); SGPT/ALT 22 U/L (7-52); SODIUM SERUM 136 mEq/L (136-145)
[2017-06-08] MEDS: Budesonide 0.5 Mg/2 mL Ud HHN SCH ×2 (07:44→19:13)
[2017-06-08] MEDS: Pantoprazole 40 mg/Packet GT SCH (09:30)
[2017-06-08] MEDS: Metoclopramide 5 mg/mL 2mL Vial IVP SCH ×3 (09:30→20:45)
[2017-06-08] MEDS: Levetiracetam 500 mg/5mL 5mL UDC NG SCH ×2 (09:33→17:37)
[2017-06-08] MEDS: Chlorhexidine Gluconate 0.12% 15mL Mouthwash MM SCH ×2 (09:35→20:02)
[2017-06-08] MEDS: Lactobacillus Rhamnosus 10 Billion CFU Capsule PO SCH (09:37)
--- NOTE | 2017-06-08 09:38 | Diagnostic Imaging Report ---
Exam: Portable examination of the chest HISTORY: Congestive heart failure Findings: Portable examination of the chest at 0918 hours was reviewed no prior studies available comparison. The study demonstrates endotracheal tube 3 cm above the matias. Right subclavian catheter terminates in superior vena cava. There is evidence of congestive heart failure with superimposed bilateral infiltrates and effusions. Bony thorax intact. IMPRESSION: 1. Congestive heart failure. 2. bilateral infiltrates superimposed effusions. 3. Follow-up examination recommended.
--- NOTE | 2017-06-08 09:43 | Diagnostic Imaging Report ---
Exam: Ultrasound examination of the abdomen. HISTORY: Elevated liver enzymes. Findings: Real-time ultrasound examination of the abdomen performed multiple planes. The study demonstrates moderate to severe right pleural effusion. The visualized liver parenchyma is intact. The gallbladder wall is thickened up to 5 mm. There is no evidence of cholelithiasis or pericholecystic fluid collection. The common bile duct measures 1.6 mm. Clinical correlation the HIDA scan might be helpful. The pancreas is not seen due to large amount of bowel gas. The study is limited due to patient inability to cooperate. The kidneys demonstrate no evidence of obstructive uropathy or nephrolithiasis. Bilateral renal cysts appreciated. Right kidney contains 7. 0.1 x 9.7 cm cyst. Left kidney contains a complex on the cord area in the left renal pole measuring 0.5 x 3.5 x 3.3 cm diameter. Left pleural effusion is noted. The spleen is intact. No free fluid appreciated. IMPRESSION: Somewhat limited examination due to patient inability to cooperate Gallbladder wall thickening clinical correlation recommended. Bilateral renal cysts. Bilateral pleural effusions greater on the right side.
[2017-06-08] MEDS: Menthol/Zinc Oxide Oint 113gm Tube TP SCH ×3 (10:00→20:47)
--- NOTE | 2017-06-08 11:09 | General Progress Note ---
Subjective - Review of Systems Service Date: 06/08/17 Events since last encounter: DIC panel for tomorrow if OK, proceed with trach Objective - Results Result Diagrams: 06/08/17 06:05 06/08/17 06:05 Recent Labs: Laboratory Last Values WBC 7.2 Th/cmm (4.8-10.8) 06/08/17 06:05 RBC 3.00 Mil/cmm (3.80-5.80) L 06/08/17 06:05 Hgb 8.6 gm/dL (12.6-17.4) L 06/08/17 06:05 Hct 24.7 % (39.0-49.0) L 06/08/17 06:05 MCV 81.8 fl (80-99) 06/08/17 06:05 MCH 28.4 pg (27.0-31.0) 06/08/17 06:05 MCHC Differential 34.8 pg (28.0-36.0) 06/08/17 06:05 RDW 16.9 % (11.5-20.0) 06/08/17 06:05 Plt Count 79 Th/cmm (150-400) L 06/08/17 06:05 MPV 12.4 fl 06/08/17 06:05 Neutrophils % 70.4 % (40.0-80.0) 06/08/17 06:05 Band Neutrophils % 5 % (0-10) 06/05/17 04:42 Lymphocytes % 12.5 % (20.0-50.0) L 06/08/17 06:05 Monocytes % 14.9 % (2.0-10.0) H 06/08/17 06:05 Eosinophils % 1.4 % (0.0-5.0) 06/08/17 06:05 Basophils % 0.8 % (0.0-2.0) 06/08/17 06:05 Neutrophils (Manual) 70 % (40-80) 06/06/17 05:03 Lymphocytes 10 % (20-50) L 06/06/17 05:03 Monocytes 16 % (2-10) H 06/06/17 05:03 Eosinophils 1 % (0-5) 06/06/17 05:03 Basophils 0 % (0-3) 05/24/17 04:49 Metamyelocytes 1 % (0-0) H 06/06/17 05:03 Atypical Lymphocytes 2 % 06/06/17 05:03 Toxic Granulation 1+ 05/23/17 04:48 Platelet Estimate DECREASED PLATELETS (NORMAL) 06/06/17 05:03 Platelet Morphology GIANT PLATELETS SEEN (NORMAL) 06/06/17 05:03 Poikilocytosis 1+ 06/06/17 05:03 Anisocytosis 1+ 06/06/17 05:03 Target Cells 1+ 06/06/17 05:03 RBC Morph Micro Appear ABNORMAL (NORMAL) 06/06/17 05:03 Eos Smear Source URINE 05/14/17 18:00 Eos Smear Total Cells FEW EOSINOPHILS SEEN (NONE SEEN) 05/14/17 18:00 Plt Count 79 Th/cmm (150-750) L 06/08/17 06:05 PT 12.7 SECONDS (9.5-11.5) H 06/08/17 06:05 INR 1.21 (0.5-1.4) 06/08/17 06:05 PTT (Actin FS) 38.8 SECONDS (26.0-38.0) H 06/08/17 06:05 Fibrinogen 214.0 mg/dL (200.0-400.0) 06/08/17 06:05 D-Dimer 1230 ng/mL (100-400) H 06/08/17 06:05 Specimen Source Arterial 06/07/17 09:29 Sample Site Left Radial 06/07/17 09:29 pH 7.48 (7.35-7.45) H 06/07/17 09:29 pCO2 42.0 mmHg (35.0-45.0) 06/07/17 09:29 pO2 71.0 mmHg (80.0-100.0) L 06/07/17 09:29 HCO3 30.4 mEq/L (20.0-26.0) H 06/07/17 09:29 Base Excess 7.1 mEq/L (-3.0-3.0) H 06/07/17 09:29 O2 Saturation 95.0 % (92.0-100.0) 06/07/17 09:29 Fel[place]o Test Positive 06/07/17 09:29 Vent Rate 4 06/07/17 09:29 Inspired O2 30 06/07/17 09:29 Tidal Volume 500 06/07/17 09:29 PEEP 0 08/04/17 08:45 Pressure (ins/psv/peep) 18 06/07/17 09:29 Critical Value PING 06/07/17 09:29 Sodium 136 mEq/L (136-145) 06/08/17 06:05 Potassium 3.6 mEq/L (3.5-5.1) 06/08/17 06:05 Chloride 99 mEq/L (98-107) 06/08/17 06:05 Carbon Dioxide 30.3 mEq/L (21.0-31.0) 06/08/17 06:05 Anion Gap 10.3 (7.0-16.0) 06/08/17 06:05 BUN 51 mg/dL (7-25) H 06/08/17 06:05 Creatinine 2.6 mg/dL (0.7-1.3) H 06/08/17 06:05 Est GFR ( Amer) TNP 06/08/17 06:05 Est GFR (Non-Af Amer) TNP 06/08/17 06:05 BUN/Creatinine Ratio 19.6 06/08/17 06:05 Glucose 133 mg/dL (70-105) H 06/08/17 06:05 POC Glucose 129 MG/DL (70 - 105) H 06/08/17 05:55 Hemoglobin A1c % 6.1 % (4.0-6.0) H 05/15/17 06:30 Plasma/Ser Osmolality 301 mOsmol/kg (280-301) 05/14/17 18:20 Whole Bld Lactic Acid 1.58 mmol/L (0.60-1.99) 05/13/17 17:42 Uric Acid 7.7 mg/dL (4.4-7.6) H 05/15/17 06:30 Calcium 8.9 mg/dL (8.6-10.3) 06/08/17 06:05 Phosphorus 2.5 mg/dL (2.5-5.0) 06/08/17 06:05 Magnesium 1.8 mg/dL (1.9-2.7) L 06/08/17 06:05 Iron 70 ug/dL (38-169) 06/04/17 04:47 TIBC 94 ug/dL (250-450) L 06/04/17 04:47 Iron Saturation 74 % (15-55) H 06/04/17 04:47 Unsaturated IBC 24 ug/dL (111-343) L 06/04/17 04:47 Ferritin 351 ng/mL (30-400) 06/03/17 04:48 Total Bilirubin 7.7 mg/dL (0.3-1.0) H 06/08/17 06:05 Direct Bilirubin 3.83 mg/dL (0.0-0.2) H 06/07/17 04:40 AST 242 U/L (13-39) H 06/08/17 06:05 ALT 22 U/L (7-52) 06/08/17 06:05 Alkaline Phosphatase 2019 U/L (34-104) H 06/08/17 06:05 Ammonia 65 umol/L (16-53) H 05/19/17 04:50 Creatine Kinase 35 U/L (30-223) 05/16/17 23:06 Troponin I 0.02 ng/mL (0.01-0.05) 05/16/17 23:06 B-Natriuretic Peptide 1480.0 pg/mL (5.0-100.0) H 06/05/17 04:42 Total Protein 5.6 gm/dL (6.0-8.3) L 06/08/17 06:05 Albumin 3.1 gm/dL (4.2-5.5) L 06/08/17 06:05 Globulin 2.5 gm/dL 06/08/17 06:05 Albumin/Globulin Ratio 1.2 (1.0-1.8) 06/08/17 06:05 Prealbumin 6 mg/dL (9-32) L 06/04/17 04:47 Triglycerides 60 mg/dL (<150) 06/04/17 04:47 Cholesterol 63 mg/dL (<200) 06/04/17 04:47 Vitamin B12 >1999 pg/mL (211-946) H 06/04/17 04:47 Folic Acid >20.0 ng/mL (>3.0) 06/04/17 04:47 TSH 2.74 uIU/ml (0.34-5.60) 05/15/17 06:30 Urine Source CATH 06/06/17 10:30 Urine Color YELLOW 06/06/17 10:30 Urine Clarity SL. CLOUDY (CLEAR) 06/06/17 10:30 Urine pH 5.0 (4.6 - 8.0) 06/06/17 10:30 Ur Specific [place] 1.025 (1.005-1.030) 06/06/17 10:30 Urine Protein 100 mg/dL (NEGATIVE) H 06/06/17 10:30 Urine Glucose (UA) NEGATIVE mg/dL (NEGATIVE) 06/06/17 10:30 Urine Ketones NEGATIVE mg/dL (NEGATIVE) 06/06/17 10:30 Urine Blood LARGE (NEGATIVE) H 06/06/17 10:30 Urine Nitrate NEGATIVE (NEGATIVE) 06/06/17 10:30 Urine Bilirubin SMALL (NEGATIVE) H 06/06/17 10:30 Urine Urobilinogen 0.2 E.U./dL (0.2 - 1.0) 06/06/17 10:30 Ur Leukocyte Esterase LARGE (NEGATIVE) H 06/06/17 10:30 Urine RBC 20-30 /hpf (0-5) 06/06/17 10:30 Urine WBC 10-25 /hpf (0-5) H 06/06/17 10:30 Ur Epithelial Cells RARE /lpf (FEW) 06/06/17 10:30 Urine Bacteria f /hpf (NONE SEEN) 06/06/17 10:30 Urine Yeast MODERATE /hpf (NONE SEEN) H 06/06/17 10:30 Ur Random Sodium 30 mmol/L 05/14/17 18:00 Urine Creatinine 36.4 mg/dl (Not Estab.) 05/14/17 18:00 Urine Microalbumin 363.5 ug/mL (Not Estab.) 05/14/17 18:00 Microalb/Creat Ratio 998.6 mg/g creat (0.0-30.0) H 05/14/17 18:00 Stool Occult Blood NEGATIVE (NEGATIVE) 05/25/17 17:49 Random Vancomycin 19.1 ug/mL (5.0-40.0) 05/19/17 04:50 Acetaminophen < 10.0 ug/mL (10.0-30.0) L 06/07/17 04:40 Hepatitis A IgM Ab Negative (Negative) 05/21/17 04:46 Hep Bs Antigen Negative (Negative) 05/21/17 04:46 Hep B Core IgM Ab Negative (Negative) 05/21/17 04:46 Hepatitis C Antibody 0.1 s/co ratio (0.0-0.9) 05/21/17 04:46 Blood Type B POSITIVE 06/04/17 04:47 Antibody Screen NEGATIVE 06/04/17 04:47 Crossmatch See Detail 05/21/17 10:19 - Physical Exam Vitals and I&O: Vital Signs Temp 99.6 F 06/08/17 04:00 Pulse 108 06/08/17 09:38 Resp 15 06/08/17 07:00 BP 110/58 06/08/17 09:38 Pulse Ox 95 06/08/17 09:25 Intake & Output 06/07/17 06/08/17 06/08/17 18:59 06:59 18:59 Intake Total 1205 480 Output Total 2415 50 Balance -1210 430 Weight (lbs) 65.941 kg 64.41 kg Intake: Intake, IV Amount 350 100 Albumin 25% 25gm/100mL 25 100 gm In 100 ml @ 50 mls/hr IV X1 ONE Rx#:[id number] Albumin 25% 25gm/100mL 25 100 gm In 100 ml @ 50 mls/hr IV X1 ONE Rx#:[id number] Piperacillin Sodium/ 150 100 Tazobact 2.25 gm In Sodium Chloride 0.9% 50 ml @ 100 mls/hr IV Q6HR [facility] Rx#:[id number] Oral 0 Tube Feeding 625 180 Other 230 200 Output: Urine 215 50 Hemodialysis 2200 Other: # Bowel Movements 0 0 Active Medications: Current Medications Acetaminophen (Tylenol) 650 mg PO Q4HR PRN PRN Reason: Pain Or Fever above 101 Stop: 07/14/17 15:15 Last Admin: 06/06/17 08:50 Dose: 650 mg Albuterol/Ipratropium (Duoneb Neb) 3 ml HHN Q4HRT [facility] Stop: 07/19/17 14:59 Last Admin: 06/08/17 07:44 Dose: 3 ml Budesonide (Pulmicort) 1 mg HHN BIDRT [facility] Stop: 07/19/17 18:59 Last Admin: 06/08/17 07:44 Dose: 1 mg Calamine/Phenol (Calmoseptine) 1 appl TP QID PRN PRN Reason: Skin Irritation Stop: 08/03/17 12:28 Last Admin: 06/07/17 21:00 Dose: 1 appl Calamine/Phenol (Calmoseptine) 1 appl TP QID YESSICA Stop: 08/03/17 12:59 Last Admin: 06/07/17 17:04 Dose: 1 appl Carbidopa/Levodopa (Sinemet 25mg-100 Mg) 1 tab PO TID YESSICA Stop: 07/14/17 08:59 Last Admin: 06/08/17 09:31 Dose: 1 tab Chlorhexidine Gluconate (Peridex) 15 ml MM 0800,1999 [facility] Stop: 07/23/17 19:59 Last Admin: 06/08/17 09:35 Dose: 15 ml Clonidine HCl (Catapres) 0.1 mg PO Q6HR PRN PRN Reason: BP MAINTENANCE (PER PROTOCOL) Stop: 07/28/17 13:31 Last Admin: 05/29/17 21:04 Dose: 0.1 mg Dextrose (D50w) 50 ml IVP PRN PRN; Protocol PRN Reason: HYPOGLYCEMIA Stop: 07/20/17 00:54 Last Admin: 05/22/17 23:34 Dose: 50 ml Diltiazem HCl (Cardizem) 10 mg IVP Q6HR PRN PRN Reason: HR >130 Stop: 07/22/17 17:09 Last Admin: 05/24/17 04:21 Dose: 10 mg Furosemide (Lasix) 40 mg IVP DAILY [facility] Stop: 07/18/17 08:59 Last Admin: 06/08/17 09:30 Dose: 40 mg Hydralazine HCl (Apresoline 20 Mg/Ml) 10 mg IV Q6HR PRN PRN Reason: BP MAINTENANCE (PER PROTOCOL) Stop: 07/30/17 13:09 Last Admin: 06/06/17 12:30 Dose: 10 mg Norepinephrine Bitartrate 8 mg (/ Dextrose) 258 mls @ 0 mls/hr IV TITR PRN; Protocol; Titrate PRN Reason: BP MAINTENANCE (PER PROTOCOL) Stop: 07/19/17 12:29 Last Admin: 05/21/17 01:06 Dose: 10 mcg/min, 19.35 mls/hr Phenylephrine HCl 10 mg/ (Sodium Chloride) 250 mls @ 0 mls/hr IV TITR YESSICA; Per Protocol PRN Reason: Protocol Stop: 07/19/17 12:59 Piperacillin Sod/Tazobactam (Sod 2.25 gm/ Sodium Chloride) 50 mls @ 100 mls/hr IV Q6HR YESSICA Stop: 08/05/17 11:59 Last Infusion: 06/08/17 06:35 Dose: Infused Norepinephrine Bitartrate 4 mg (/ Dextrose) 254 mls @ 0 mls/hr IV TITR PRN; Protocol; Per Protocol PRN Reason: BP MAINTENANCE (PER PROTOCOL) Stop: 08/07/17 10:48 Insulin Aspart (Novolog Insulin Sliding Scale) 0 units SUBQ Q6HR YESSICA PRN Reason: Protocol Stop: 07/14/17 00:00 Last Admin: 06/07/17 23:36 Dose: 2 units Isosorbide Dinitrate (Isordil) 20 mg GT TID [facility] Stop: 07/28/17 13:33 Last Admin: 06/08/17 09:32 Dose: 20 mg Lactobacillus Rhamnosus (Culturelle) 1 each PO DAILY [facility] Stop: 07/17/17 08:59 Last Admin: 06/08/17 09:37 Dose: 1 each Levetiracetam (Keppra) 250 mg NG BID [facility] Stop: 07/14/17 08:59 Last Admin: 06/08/17 09:33 Dose: 250 mg Metoclopramide HCl (Reglan) 5 mg IVP TID [facility] Stop: 07/20/17 20:59 Last Admin: 06/08/17 09:30 Dose: 5 mg Metoprolol Tartrate (Lopressor) 50 mg GT Q8H [facility] Stop: 07/18/17 08:59 Last Admin: 06/08/17 09:38 Dose: 50 mg Miscellaneous (Vte Chemical Prophylaxis Screen/ Admission) 1 ea MC PRN PRN PRN Reason: PROTOCOL Stop: 07/14/17 09:25 Miscellaneous (Clinical Monitoring) 1 ea MC DAILY PRN PRN Reason: RENAL Stop: 07/15/17 12:32 Miscellaneous (Probiotic Screen) 1 ea MC PRN PRN PRN Reason: PROTOCOL Stop: 07/16/17 09:33 Morphine Sulfate (Morphine) 1 mg IVP Q4HR PRN PRN Reason: Pain (Moderate) Stop: 08/06/17 15:02 Last Admin: 06/07/17 15:15 Dose: 1 mg Pantoprazole Sodium (Protonix) 40 mg GT DAILY [facility] Stop: 07/14/17 08:59 Last Admin: 06/08/17 09:30 Dose: 40 mg General: No acute distress, no Alert HEENT: Atraumatic Neck: Supple, +2 carotid pulse wo bruit Cardiovascular: Other (mild tachycardia) Lungs: Other (rhonchi bilaterally) Abdomen: Soft, no Tender Extremities: no Edema (no edema) Neurological: Sensation intact, Other (opens eyes upon verbal command) Skin: Rash Psych/Mental Status: Mood NL - Procedures Procedures: Procedures Procedure Code Date INSERT EMERGENCY AIRWAY 88928 05/13/17 INSERT TUNNELED CV CATH [id number] 05/13/17 INSERTION OF ENDOTRACHEAL AIRWAY INTO TRACHEA, VIA OPENING [id number] 05/13/17 INSERTION OF INFUSION DEV INTO R FEMOR VEIN, PERC APPROACH [id number] 05/13/17 RESPIRATORY VENTILATION, GREATER THAN 96 CONSECUTIVE HOURS [id number] 05/13/17 VENT MGMT INPAT INIT DAY 26599 05/13/17 Assessment/Plan - Problem List Patient Problems: All Active Problems COUGH AND CONGESTION (Acute) Congestive heart failure (CHF) (Acute) I50.9 congestive heart failure (Acute) hypertension uncontrolled with bradycarda (Acute) renal failure (Acute) Nutritional Asmnt/Malnutr-PDOC - Dietary Evaluation Malnutrition Findings (Please click <Entered> for more info): Nutritional Asmnt/Malnutrition Start: 05/15/17 13: 56 Text: Status: Complete Freq: Document 05/15/17 13:56 GSUN (Rec: 05/15/17 14:18 GSUN [id number]) Nutritional Asmnt/Malnutrition Patient General Information Nutritional Screening High Risk Screening Diagnosis PNA, NICK, icnreasing renal failure, CVA, CHF, DM Pertinent Medical Hx/Surgical Hx CVA, dementia, afib, CAD, HTN, dyslipidemia, epilepsy, GERD, aspiration PNA, DM, CKD, dehydration, C. diff, anemia D Subjective Information 86 year old male from SNF. Pt greeted RD. Pt is overall thin , moderate to severe wasting to chest, clavicles, extremities. Observed Glytrol running at 60ml/hr x20hrs during visit. Unable to obtain CBW due to bedscale not calibrated. Discussed with YVETTE Farooq regarding tube feeding recommendations. Current Diet Order/ Nutrition Support Glytrol at 60ml/hr x 20hrs, providing 1200kcal 54g protein Pertinent Medications Lipitor, Novolog, Levemir, Cephulac, Morphine, Protonix, Nacl 0.9% Pertinent Labs 05/13: potassium 5.3H, BUN 80H, creatinine 2.4H, glucose 103 05/15: potassium WNL, BUN 70H, creatinine 2.4H, glucose 239H, A1c 6.1H, phosphorus 5.4H Nutritional Hx/Data Height 1.68 m Height (Calculated Centimeters) 167.6 Current Weight (lbs) 65.771 kg Weight (Calculated Kilograms) 65.8 Weight (Calculated Grams) 34933.9 [place] Body Weight 142 Weight Status Approriate GI Symptoms Difficult in: Swallowing Cultural/Ethnic/Congregational Belief [facility]: Glucerna 1.2 at 85ml/hr x 20hrs, providing 2040kcal, promote weight gain. Skin Integrity/Comment: Gee 12. Skin intact. Estimated Nutritional Goals Calories/Kcals/Kg CBW 145lb/65.9kg Kcals Calculated 1976-2307kcal (30-35kcal/kg) Protein Calculated 46-92g (0.7-1.4g/kg, renal vs moderate to severe wasting) Fluid: ml Per MD (renal) Nutritional Problem 2. Problem Problem Impaired nutrient utilization related to Etiology NICK, hx CKD aeb Signs/Symptoms: "increasing renal failure," potaasum 5.3H on adm, BUN 70H, matting press tender 2.4H, phosphorus 5.4H 1. Problem Problem Inadequate intake from enteral nutrition infusion related to Etiology estimated nutritional needs aeb Signs/Symptoms: providing to meet 61% lower end kcal needs Intervention/Recommendation Comments 1. Recommend Novasource Renal at 50ml/hr x 20hrs, providing 2000kcal and 91g protein. Current order Glytrol at 60ml/ hr x 20hrs is only providing 1200kcal, pt recieves 2040kcal at [facility]. Expected Outcomes/Goals Expected Outcomes/Goals 1. Pt to meet at least 100% of estimated nutritional needs on tube feeding with tolerance .
--- NOTE | 2017-06-08 12:39 | General Progress Note ---
Subjective - Review of Systems Service Date: 06/08/17 Subjective: drowsy today, on vent, nonverbal Objective - Results Result Diagrams: 06/08/17 06:05 06/08/17 06:05 Recent Labs: Laboratory Last Values WBC 7.2 Th/cmm (4.8-10.8) 06/08/17 06:05 RBC 3.00 Mil/cmm (3.80-5.80) L 06/08/17 06:05 Hgb 8.6 gm/dL (12.6-17.4) L 06/08/17 06:05 Hct 24.7 % (39.0-49.0) L 06/08/17 06:05 MCV 81.8 fl (80-99) 06/08/17 06:05 MCH 28.4 pg (27.0-31.0) 06/08/17 06:05 MCHC Differential 34.8 pg (28.0-36.0) 06/08/17 06:05 RDW 16.9 % (11.5-20.0) 06/08/17 06:05 Plt Count 79 Th/cmm (150-400) L 06/08/17 06:05 MPV 12.4 fl 06/08/17 06:05 Neutrophils % 70.4 % (40.0-80.0) 06/08/17 06:05 Band Neutrophils % 5 % (0-10) 06/05/17 04:42 Lymphocytes % 12.5 % (20.0-50.0) L 06/08/17 06:05 Monocytes % 14.9 % (2.0-10.0) H 06/08/17 06:05 Eosinophils % 1.4 % (0.0-5.0) 06/08/17 06:05 Basophils % 0.8 % (0.0-2.0) 06/08/17 06:05 Neutrophils (Manual) 70 % (40-80) 06/06/17 05:03 Lymphocytes 10 % (20-50) L 06/06/17 05:03 Monocytes 16 % (2-10) H 06/06/17 05:03 Eosinophils 1 % (0-5) 06/06/17 05:03 Basophils 0 % (0-3) 05/24/17 04:49 Metamyelocytes 1 % (0-0) H 06/06/17 05:03 Atypical Lymphocytes 2 % 06/06/17 05:03 Toxic Granulation 1+ 05/23/17 04:48 Platelet Estimate DECREASED PLATELETS (NORMAL) 06/06/17 05:03 Platelet Morphology GIANT PLATELETS SEEN (NORMAL) 06/06/17 05:03 Poikilocytosis 1+ 06/06/17 05:03 Anisocytosis 1+ 06/06/17 05:03 Target Cells 1+ 06/06/17 05:03 RBC Morph Micro Appear ABNORMAL (NORMAL) 06/06/17 05:03 Eos Smear Source URINE 05/14/17 18:00 Eos Smear Total Cells FEW EOSINOPHILS SEEN (NONE SEEN) 05/14/17 18:00 Plt Count 79 Th/cmm (150-750) L 06/08/17 06:05 PT 12.7 SECONDS (9.5-11.5) H 06/08/17 06:05 INR 1.21 (0.5-1.4) 06/08/17 06:05 PTT (Actin FS) 38.8 SECONDS (26.0-38.0) H 06/08/17 06:05 Fibrinogen 214.0 mg/dL (200.0-400.0) 06/08/17 06:05 D-Dimer 1230 ng/mL (100-400) H 06/08/17 06:05 Specimen Source Arterial 06/07/17 09:29 Sample Site Left Radial 06/07/17 09:29 pH 7.48 (7.35-7.45) H 06/07/17 09:29 pCO2 42.0 mmHg (35.0-45.0) 06/07/17 09:29 pO2 71.0 mmHg (80.0-100.0) L 06/07/17 09:29 HCO3 30.4 mEq/L (20.0-26.0) H 06/07/17 09:29 Base Excess 7.1 mEq/L (-3.0-3.0) H 06/07/17 09:29 O2 Saturation 95.0 % (92.0-100.0) 06/07/17 09:29 Feliciano Test Positive 06/07/17 09:29 Vent Rate 4 06/07/17 09:29 Inspired O2 30 06/07/17 09:29 Tidal Volume 500 06/07/17 09:29 PEEP 0 06/06/17 08:45 Pressure (ins/psv/peep) 18 06/07/17 09:29 Critical Value PING 06/07/17 09:29 Sodium 136 mEq/L (136-145) 06/08/17 06:05 Potassium 3.6 mEq/L (3.5-5.1) 06/08/17 06:05 Chloride 99 mEq/L (98-107) 06/08/17 06:05 Carbon Dioxide 30.3 mEq/L (21.0-31.0) 06/08/17 06:05 Anion Gap 10.3 (7.0-16.0) 06/08/17 06:05 BUN 51 mg/dL (7-25) H 06/08/17 06:05 Creatinine 2.6 mg/dL (0.7-1.3) H 06/08/17 06:05 Est GFR ( Amer) TNP 06/08/17 06:05 Est GFR (Non-Af Amer) TNP 06/08/17 06:05 BUN/Creatinine Ratio 19.6 06/08/17 06:05 Glucose 133 mg/dL (70-105) H 06/08/17 06:05 POC Glucose 187 MG/DL (70 - 105) H 06/08/17 12:12 Hemoglobin A1c % 6.1 % (4.0-6.0) H 05/15/17 06:30 Plasma/Ser Osmolality 301 mOsmol/kg (280-301) 05/14/17 18:20 Whole Bld Lactic Acid 1.58 mmol/L (0.60-1.99) 05/13/17 17:42 Uric Acid 7.7 mg/dL (4.4-7.6) H 05/15/17 06:30 Calcium 8.9 mg/dL (8.6-10.3) 06/08/17 06:05 Phosphorus 2.5 mg/dL (2.5-5.0) 06/08/17 06:05 Magnesium 1.8 mg/dL (1.9-2.7) L 06/08/17 06:05 Iron 70 ug/dL (38-169) 06/04/17 04:47 TIBC 94 ug/dL (250-450) L 06/04/17 04:47 Iron Saturation 74 % (15-55) H 06/04/17 04:47 Unsaturated IBC 24 ug/dL (111-343) L 06/04/17 04:47 Ferritin 351 ng/mL (30-400) 06/03/17 04:48 Total Bilirubin 7.7 mg/dL (0.3-1.0) H 06/08/17 06:05 Direct Bilirubin 3.83 mg/dL (0.0-0.2) H 06/07/17 04:40 AST 242 U/L (13-39) H 06/08/17 06:05 ALT 22 U/L (7-52) 06/08/17 06:05 Alkaline Phosphatase 2019 U/L (34-104) H 06/08/17 06:05 Ammonia 65 umol/L (16-53) H 05/19/17 04:50 Creatine Kinase 35 U/L (30-223) 05/16/17 23:06 Troponin I 0.02 ng/mL (0.01-0.05) 05/16/17 23:06 B-Natriuretic Peptide 1480.0 pg/mL (5.0-100.0) H 06/05/17 04:42 Total Protein 5.6 gm/dL (6.0-8.3) L 06/08/17 06:05 Albumin 3.1 gm/dL (4.2-5.5) L 06/08/17 06:05 Globulin 2.5 gm/dL 06/08/17 06:05 Albumin/Globulin Ratio 1.2 (1.0-1.8) 06/08/17 06:05 Prealbumin 6 mg/dL (9-32) L 06/04/17 04:47 Triglycerides 60 mg/dL (<150) 06/04/17 04:47 Cholesterol 63 mg/dL (<200) 06/04/17 04:47 Vitamin B12 >1999 pg/mL (211-946) H 06/04/17 04:47 Folic Acid >20.0 ng/mL (>3.0) 06/04/17 04:47 TSH 2.74 uIU/ml (0.34-5.60) 05/15/17 06:30 Urine Source CATH 06/06/17 10:30 Urine Color YELLOW 06/06/17 10:30 Urine Clarity SL. CLOUDY (CLEAR) 06/06/17 10:30 Urine pH 5.0 (4.6 - 8.0) 06/06/17 10:30 Ur Specific Hollister 1.025 (1.005-1.030) 06/06/17 10:30 Urine Protein 100 mg/dL (NEGATIVE) H 06/06/17 10:30 Urine Glucose (UA) NEGATIVE mg/dL (NEGATIVE) 06/06/17 10:30 Urine Ketones NEGATIVE mg/dL (NEGATIVE) 06/06/17 10:30 Urine Blood LARGE (NEGATIVE) H 06/06/17 10:30 Urine Nitrate NEGATIVE (NEGATIVE) 06/06/17 10:30 Urine Bilirubin SMALL (NEGATIVE) H 06/06/17 10:30 Urine Urobilinogen 0.2 E.U./dL (0.2 - 1.0) 06/06/17 10:30 Ur Leukocyte Esterase LARGE (NEGATIVE) H 06/06/17 10:30 Urine RBC 20-30 /hpf (0-5) 06/06/17 10:30 Urine WBC 10-25 /hpf (0-5) H 06/06/17 10:30 Ur Epithelial Cells RARE /lpf (FEW) 06/06/17 10:30 Urine Bacteria f /hpf (NONE SEEN) 06/06/17 10:30 Urine Yeast MODERATE /hpf (NONE SEEN) H 06/06/17 10:30 Ur Random Sodium 30 mmol/L 05/14/17 18:00 Urine Creatinine 36.4 mg/dl (Not Estab.) 05/14/17 18:00 Urine Microalbumin 363.5 ug/mL (Not Estab.) 05/14/17 18:00 Microalb/Creat Ratio 998.6 mg/g creat (0.0-30.0) H 05/14/17 18:00 Stool Occult Blood NEGATIVE (NEGATIVE) 05/25/17 17:49 Random Vancomycin 19.1 ug/mL (5.0-40.0) 05/19/17 04:50 Acetaminophen < 10.0 ug/mL (10.0-30.0) L 06/07/17 04:40 Hepatitis A IgM Ab Negative (Negative) 05/21/17 04:46 Hep Bs Antigen Negative (Negative) 05/21/17 04:46 Hep B Core IgM Ab Negative (Negative) 05/21/17 04:46 Hepatitis C Antibody 0.1 s/co ratio (0.0-0.9) 05/21/17 04:46 Blood Type B POSITIVE 06/04/17 04:47 Antibody Screen NEGATIVE 06/04/17 04:47 Crossmatch See Detail 05/21/17 10:19 - Physical Exam Vitals and I&O: Vital Signs Temp 98.6 F 06/08/17 08:00 Pulse 99 06/08/17 11:19 Resp 15 06/08/17 08:00 BP 110/58 06/08/17 09:38 Pulse Ox 97 06/08/17 11:19 Intake & Output 06/07/17 06/08/17 06/08/17 18:59 06:59 18:59 Intake Total 1205 480 Output Total 2415 50 Balance -1210 430 Weight (lbs) 65.941 kg 64.41 kg Intake: Intake, IV Amount 350 100 Albumin 25% 25gm/100mL 25 100 gm In 100 ml @ 50 mls/hr IV X1 ONE Rx#:[id number] Albumin 25% 25gm/100mL 25 100 gm In 100 ml @ 50 mls/hr IV X1 ONE Rx#:[id number] Piperacillin Sodium/ 150 100 Tazobact 2.25 gm In Sodium Chloride 0.9% 50 ml @ 100 mls/hr IV Q6HR [facility] Rx#:[id number] Oral 0 Tube Feeding 625 180 Other 230 200 Output: Urine 215 50 Hemodialysis 2200 Other: # Bowel Movements 0 0 Active Medications: Current Medications Acetaminophen (Tylenol) 650 mg PO Q4HR PRN PRN Reason: Pain Or Fever above 101 Stop: 07/14/17 15:15 Last Admin: 06/06/17 08:50 Dose: 650 mg Albuterol/Ipratropium (Duoneb Neb) 3 ml HHN Q4HRT [facility] Stop: 07/19/17 14:59 Last Admin: 06/08/17 11:19 Dose: 3 ml Budesonide (Pulmicort) 1 mg HHN BIDRT [facility] Stop: 07/19/17 18:59 Last Admin: 06/08/17 07:44 Dose: 1 mg Calamine/Phenol (Calmoseptine) 1 appl TP QID PRN PRN Reason: Skin Irritation Stop: 08/03/17 12:28 Last Admin: 06/07/17 21:00 Dose: 1 appl Calamine/Phenol (Calmoseptine) 1 appl TP QID [facility] Stop: 08/03/17 12:59 Last Admin: 06/07/17 17:04 Dose: 1 appl Carbidopa/Levodopa (Sinemet 25mg-100 Mg) 1 tab PO TID YESSICA Stop: 07/14/17 08:59 Last Admin: 06/08/17 09:31 Dose: 1 tab Chlorhexidine Gluconate (Peridex) 15 ml MM 0800,2000 [facility] Stop: 07/23/17 19:59 Last Admin: 06/08/17 09:35 Dose: 15 ml Clonidine HCl (Catapres) 0.1 mg PO Q6HR PRN PRN Reason: BP MAINTENANCE (PER PROTOCOL) Stop: 07/28/17 13:31 Last Admin: 05/29/17 21:04 Dose: 0.1 mg Dextrose (D50w) 50 ml IVP PRN PRN; Protocol PRN Reason: HYPOGLYCEMIA Stop: 07/20/17 00:54 Last Admin: 05/22/17 23:34 Dose: 50 ml Diltiazem HCl (Cardizem) 10 mg IVP Q6HR PRN PRN Reason: HR >130 Stop: 07/22/17 17:09 Last Admin: 05/24/17 04:21 Dose: 10 mg Furosemide (Lasix) 40 mg IVP DAILY [facility] Stop: 07/18/17 08:59 Last Admin: 06/08/17 09:30 Dose: 40 mg Hydralazine HCl (Apresoline 20 Mg/Ml) 10 mg IV Q6HR PRN PRN Reason: BP MAINTENANCE (PER PROTOCOL) Stop: 07/30/17 13:09 Last Admin: 06/06/17 12:30 Dose: 10 mg Norepinephrine Bitartrate 8 mg (/ Dextrose) 258 mls @ 0 mls/hr IV TITR PRN; Protocol; Titrate PRN Reason: BP MAINTENANCE (PER PROTOCOL) Stop: 07/19/17 12:29 Last Admin: 05/21/17 01:06 Dose: 10 mcg/min, 19.35 mls/hr Phenylephrine HCl 10 mg/ (Sodium Chloride) 250 mls @ 0 mls/hr IV TITR YESSICA; Per Protocol PRN Reason: Protocol Stop: 07/19/17 12:59 Piperacillin Sod/Tazobactam (Sod 2.25 gm/ Sodium Chloride) 50 mls @ 100 mls/hr IV Q6HR [facility]ESSICA Stop: 08/05/17 11:59 Last Infusion: 06/08/17 06:35 Dose: Infused Norepinephrine Bitartrate 4 mg (/ Dextrose) 254 mls @ 0 mls/hr IV TITR PRN; Protocol; Per Protocol PRN Reason: BP MAINTENANCE (PER PROTOCOL) Stop: 08/07/17 10:48 Insulin Aspart (Novolog Insulin Sliding Scale) 0 units SUBQ Q6HR YESSICA PRN Reason: Protocol Stop: 07/14/17 00:00 Last Admin: 06/07/17 23:36 Dose: 2 units Isosorbide Dinitrate (Isordil) 20 mg GT TID [facility] Stop: 07/28/17 13:33 Last Admin: 06/08/17 09:32 Dose: 20 mg Lactobacillus Rhamnosus (Culturelle) 1 each PO DAILY [facility] Stop: 07/17/17 08:59 Last Admin: 06/08/17 09:37 Dose: 1 each Levetiracetam (Keppra) 250 mg NG BID [facility] Stop: 07/14/17 08:59 Last Admin: 06/08/17 09:33 Dose: 250 mg Metoclopramide HCl (Reglan) 5 mg IVP TID [facility] Stop: 07/20/17 20:59 Last Admin: 06/08/17 09:30 Dose: 5 mg Metoprolol Tartrate (Lopressor) 50 mg GT Q8H [facility] Stop: 07/18/17 08:59 Last Admin: 06/08/17 09:38 Dose: 50 mg Miscellaneous (Vte Chemical Prophylaxis Screen/ Admission) 1 ea MC PRN PRN PRN Reason: PROTOCOL Stop: 07/14/17 09:25 Miscellaneous (Clinical Monitoring) 1 ea MC DAILY PRN PRN Reason: RENAL Stop: 07/15/17 12:32 Miscellaneous (Probiotic Screen) 1 ea MC PRN PRN PRN Reason: PROTOCOL Stop: 07/16/17 09:33 Morphine Sulfate (Morphine) 1 mg IVP Q4HR PRN PRN Reason: Pain (Moderate) Stop: 08/06/17 15:02 Last Admin: 06/07/17 15:15 Dose: 1 mg Pantoprazole Sodium (Protonix) 40 mg GT DAILY [facility] Stop: 07/14/17 08:59 Last Admin: 06/08/17 09:30 Dose: 40 mg General: No acute distress, no Alert HEENT: Atraumatic Neck: Supple, +2 carotid pulse wo bruit Cardiovascular: Regular rate, Normal S1, Normal S2, Other (mild tachycardia) Lungs: Other (rhonchi bilaterally) Abdomen: Soft, no Tender Extremities: no Edema (no edema) Neurological: Sensation intact, Other (opens eyes upon verbal command) Skin: no Rash Psych/Mental Status: Mood NL - Procedures Procedures: Procedures Procedure Code Date INSERT EMERGENCY AIRWAY 10021 05/13/17 INSERT TUNNELED CV CATH 85173 05/13/17 INSERTION OF ENDOTRACHEAL AIRWAY INTO TRACHEA, VIA OPENING [id number] 05/13/17 INSERTION OF INFUSION DEV INTO R FEMOR VEIN, PERC APPROACH [id number] 05/13/17 RESPIRATORY VENTILATION, GREATER THAN 96 CONSECUTIVE HOURS [id number] 05/13/17 VENT MGMT INPAT INIT DAY 28346 05/13/17 Assessment/Plan - Problem List Patient Problems: All Active Problems COUGH AND CONGESTION (Acute) Congestive heart failure (CHF) (Acute) I50.9 congestive heart failure (Acute) hypertension uncontrolled with bradycarda (Acute) renal failure (Acute) - Assessment Assessment: NICK on CKD, now on dialysis A LOC secondary to metabolic encephalopathy/medications Dehydration Essential hypertension with CKD COPD Chronic atrial fibrillation Status post CVA Aspiration pneumonia/dysphagia status post PEG Type 2 diabetes mellitus with CKD Acute Decompensated CHF Acute Resp Failure on Vent Acute liver failure 2nd to congestion; possible meds ? Diflucan, Keppra, TPN - Plan Plan: Lab - Result Diagrams 05/15/17 06:30 05/15/17 06:30 Current Medications Acetaminophen (Tylenol) 650 mg PO Q4HR PRN PRN Reason: Pain Or Fever above 101 Stop: 07/14/17 15:15 Last Admin: 05/15/17 16:21 Dose: 650 mg Albuterol Sulfate (Albuterol 2.5mg/3ml Neb Ud) 2.5 mg HHN Q6HRT YESSICA Stop: 07/14/17 00:59 Last Admin: 05/15/17 16:05 Dose: 2.5 mg Atorvastatin Calcium (Lipitor) 10 mg GT HS YESSICA PRN Reason: Protocol Stop: 07/14/17 20:59 Carbidopa/Levodopa (Sinemet 25mg-100 Mg) 1 tab PO TID [facility] Stop: 07/14/17 08:59 Last Admin: 05/15/17 14:02 Dose: 1 tab Heparin Sodium (Porcine) (Heparin) 5,000 units SUBQ Q8H [facility] Stop: 07/14/17 14:59 Last Admin: 05/15/17 16:24 Dose: 5,000 units Sodium Chloride (Nacl 0.9%) 1,000 mls @ 60 mls/hr IV .[id number] [facility] Stop: 07/13/17 06:40 Last Admin: 05/14/17 17:16 Dose: 60 mls/hr Azithromycin 250 mg/ Sodium (Chloride) 250 mls @ 250 mls/hr IV Q24HR [facility] Stop: 05/20/17 08:59 Piperacillin Sod/Tazobactam (Sod 3.375 gm/ Sodium Chloride) 50 mls @ 100 mls/ hr IV Q8HR [facility] Stop: 07/14/17 15:14 Last Admin: 05/15/17 15:57 Dose: 100 mls/hr Insulin Aspart (Novolog Insulin Sliding Scale) 0 units SUBQ Q6HR [facility] PRN Reason: Protocol Stop: 07/14/17 00:00 Last Admin: 05/15/17 17:09 Dose: Not Given Insulin Detemir (Levemir Insulin) 14 units SUBQ DAILY [facility] PRN Reason: Protocol Stop: 07/15/17 08:59 Isosorbide Dinitrate (Isordil) 10 mg GT TID [facility] Stop: 07/14/17 08:59 Last Admin: 05/15/17 14:02 Dose: 10 mg Lactulose (Cephulac) 20 gm PO TID [facility] Stop: 07/14/17 08:59 Last Admin: 05/15/17 14:02 Dose: 20 gm Levetiracetam (Keppra) 250 mg NG BID [facility] Stop: 07/14/17 08:59 Last Admin: 05/15/17 16:23 Dose: 250 mg Metoprolol Tartrate (Lopressor) 37.5 mg GT BID [facility] Stop: 07/14/17 00:14 Last Admin: 05/15/17 16:22 Dose: 37.5 mg Miscellaneous (Vte Chemical Prophylaxis Screen/ Admission) 1 ea MC PRN PRN PRN Reason: PROTOCOL Stop: 07/14/17 09:25 Morphine Sulfate (Morphine) 2 mg IVP Q3H PRN PRN Reason: PAIN Stop: 07/13/17 19:46 Last Admin: 05/14/17 21:16 Dose: 2 mg Mupirocin (Bactroban Oint) 1 appl TP BID [facility]ESSICA Stop: 07/14/17 16:59 Last Admin: 05/15/17 16:24 Dose: 1 appl Pantoprazole Sodium (Protonix) 40 mg GT DAILY [facility] Stop: 07/14/17 08:59 Last Admin: 05/15/17 08:36 Dose: 40 mg Rifaximin (Xifaxan) 550 mg GT BID [facility] Stop: 07/14/17 08:59 Last Admin: 05/15/17 16:23 Dose: 550 mg Latest BUN/CR were 51/2.6 WBC 7.2 on Zosyn, dc Diflucan Chest x-ray still w/ b/l infiltrates, effusions, no significant change Reviewed his meds Follow-up electrolytes decreased nephro 25 ml/hr due to residuals prognosis poor Hgb/Hct up to 8.6/24.7 currently being dialyzed Follow-up electrolytes, CBC and chest x-ray in a.m. BNP still elevated @ 1480 replace MG schedule for HD in am Lab - Result Diagrams 05/24/17 04:49 05/24/17 04:49 addendum: Poor response to diuretics, w/ worsening CHF, BNP level developed resp failure, required intubation worsening cardio-renal syndrome discussed w/ grandson Pedro, about poor prognosis but still want to proceed w/ dialysis Nutritional Asmnt/Malnutr-PDOC - Dietary Evaluation Malnutrition Findings (Please click <Entered> for more info): Nutritional Asmnt/Malnutrition Start: 05/15/17 13: 56 Text: Status: Complete Freq: Document 05/15/17 13:56 GSUN (Rec: 05/15/17 14:18 GSTHALIA [email or web address]) Nutritional Asmnt/Malnutrition Patient General Information Nutritional Screening High Risk Screening Diagnosis PNA, NICK, icnreasing renal failure, CVA, CHF, DM Pertinent Medical Hx/Surgical Hx CVA, dementia, afib, CAD, HTN, dyslipidemia, epilepsy, GERD, aspiration PNA, DM, CKD, dehydration, C. diff, anemia D Subjective Information 86 year old male from SNF. Pt greeted RD. Pt is overall thin , moderate to severe wasting to chest, clavicles, extremities. Observed Glytrol running at 60ml/hr x20hrs during visit. Unable to obtain CBW due to bedscale not calibrated. Discussed with YVETTE Farooq regarding tube feeding recommendations. Current Diet Order/ Nutrition Support Glytrol at 60ml/hr x 20hrs, providing 1200kcal 54g protein Pertinent Medications Lipitor, Novolog, Levemir, Cephulac, Morphine, Protonix, Nacl 0.9% Pertinent Labs 05/13: potassium 5.3H, BUN 80H, creatinine 2.4H, glucose 103 05/15: potassium WNL, BUN 70H, creatinine 2.4H, glucose 239H, A1c 6.1H, phosphorus 5.4H Nutritional Hx/Data Height 1.68 m Height (Calculated Centimeters) 167.6 Current Weight (lbs) 65.771 kg Weight (Calculated Kilograms) 65.8 Weight (Calculated Grams) 49292.9 Ferguson Body Weight 142 Weight Status Approriate GI Symptoms Difficult in: Swallowing Cultural/Ethnic/Hinduism Belief [facility]: Glucerna 1.2 at 85ml/hr x 20hrs, providing 2040kcal, promote weight gain. Skin Integrity/Comment: Gee 12. Skin intact. Estimated Nutritional Goals Calories/Kcals/Kg CBW 145lb/65.9kg Kcals Calculated 1976-2307kcal (30-35kcal/kg) Protein Calculated 46-92g (0.7-1.4g/kg, renal vs moderate to severe wasting) Fluid: ml Per MD (renal) Nutritional Problem 2. Problem Problem Impaired nutrient utilization related to Etiology NICK, hx CKD aeb Signs/Symptoms: "increasing renal failure," potaasum 5.3H on adm, BUN 70H, corsetier 2.4H, phosphorus 5.4H 1. Problem Problem Inadequate intake from enteral nutrition infusion related to Etiology estimated nutritional needs aeb Signs/Symptoms: providing to meet 61% lower end kcal needs Intervention/Recommendation Comments 1. Recommend Novasource Renal at 50ml/hr x 20hrs, providing 2000kcal and 91g protein. Current order Glytrol at 60ml/ hr x 20hrs is only providing 1200kcal, pt recieves 2040kcal at [facility]. Expected Outcomes/Goals Expected Outcomes/Goals 1. Pt to meet at least 100% of estimated nutritional needs on tube feeding with tolerance .
[2017-06-08] MEDS ORDERED: Mag Sulfate 2gm/50mL Premix 2 GM/50 ML BAG IV ONE (12:40)
[2017-06-08] MEDS: INSULIN ASPART SLIDING SCALE 100 UNITS/ML UNIT SUBQ SCH ×3 (13:15→17:56)
--- NOTE | 2017-06-08 17:09 | General Progress Note ---
Subjective - Review of Systems Service Date: 06/08/17 Subjective: Patient seen and examined clinically same Objective - Results Result Diagrams: 06/08/17 06:05 06/08/17 06:05 Recent Labs: Laboratory Last Values WBC 7.2 Th/cmm (4.8-10.8) 06/08/17 06:05 RBC 3.00 Mil/cmm (3.80-5.80) L 06/08/17 06:05 Hgb 8.6 gm/dL (12.6-17.4) L 06/08/17 06:05 Hct 24.7 % (39.0-49.0) L 06/08/17 06:05 MCV 81.8 fl (80-99) 06/08/17 06:05 MCH 28.4 pg (27.0-31.0) 06/08/17 06:05 MCHC Differential 34.8 pg (28.0-36.0) 06/08/17 06:05 RDW 16.9 % (11.5-20.0) 06/08/17 06:05 Plt Count 79 Th/cmm (150-400) L 06/08/17 06:05 MPV 12.4 fl 06/08/17 06:05 Neutrophils % 70.4 % (40.0-80.0) 06/08/17 06:05 Band Neutrophils % 5 % (0-10) 06/05/17 04:42 Lymphocytes % 12.5 % (20.0-50.0) L 06/08/17 06:05 Monocytes % 14.9 % (2.0-10.0) H 06/08/17 06:05 Eosinophils % 1.4 % (0.0-5.0) 06/08/17 06:05 Basophils % 0.8 % (0.0-2.0) 06/08/17 06:05 Neutrophils (Manual) 70 % (40-80) 06/06/17 05:03 Lymphocytes 10 % (20-50) L 06/06/17 05:03 Monocytes 16 % (2-10) H 06/06/17 05:03 Eosinophils 1 % (0-5) 06/06/17 05:03 Basophils 0 % (0-3) 05/24/17 04:49 Metamyelocytes 1 % (0-0) H 06/06/17 05:03 Atypical Lymphocytes 2 % 06/06/17 05:03 Toxic Granulation 1+ 05/23/17 04:48 Platelet Estimate DECREASED PLATELETS (NORMAL) 06/06/17 05:03 Platelet Morphology GIANT PLATELETS SEEN (NORMAL) 06/06/17 05:03 Poikilocytosis 1+ 06/06/17 05:03 Anisocytosis 1+ 06/06/17 05:03 Target Cells 1+ 06/06/17 05:03 RBC Morph Micro Appear ABNORMAL (NORMAL) 06/06/17 05:03 Eos Smear Source URINE 05/14/17 18:00 Eos Smear Total Cells FEW EOSINOPHILS SEEN (NONE SEEN) 05/14/17 18:00 Plt Count 79 Th/cmm (150-750) L 06/08/17 06:05 PT 12.7 SECONDS (9.5-11.5) H 06/08/17 06:05 INR 1.21 (0.5-1.4) 06/08/17 06:05 PTT (Actin FS) 38.8 SECONDS (26.0-38.0) H 06/08/17 06:05 Fibrinogen 214.0 mg/dL (200.0-400.0) 06/08/17 06:05 D-Dimer 1230 ng/mL (100-400) H 06/08/17 06:05 Specimen Source Arterial 06/07/17 09:29 Sample Site Left Radial 06/07/17 09:29 pH 7.48 (7.35-7.45) H 06/07/17 09:29 pCO2 42.0 mmHg (35.0-45.0) 06/07/17 09:29 pO2 71.0 mmHg (80.0-100.0) L 06/07/17 09:29 HCO3 30.4 mEq/L (20.0-26.0) H 06/07/17 09:29 Base Excess 7.1 mEq/L (-3.0-3.0) H 06/07/17 09:29 O2 Saturation 95.0 % (92.0-100.0) 06/07/17 09:29 Feliciano Test Positive 06/07/17 09:29 Vent Rate 4 06/07/17 09:29 Inspired O2 30 06/07/17 09:29 Tidal Volume 500 06/07/17 09:29 PEEP 0 06/06/17 08:45 Pressure (ins/psv/peep) 18 06/07/17 09:29 Critical Value PING 06/07/17 09:29 Sodium 136 mEq/L (136-145) 06/08/17 06:05 Potassium 3.6 mEq/L (3.5-5.1) 06/08/17 06:05 Chloride 99 mEq/L (98-107) 06/08/17 06:05 Carbon Dioxide 30.3 mEq/L (21.0-31.0) 06/08/17 06:05 Anion Gap 10.3 (7.0-16.0) 06/08/17 06:05 BUN 51 mg/dL (7-25) H 06/08/17 06:05 Creatinine 2.6 mg/dL (0.7-1.3) H 06/08/17 06:05 Est GFR ( Amer) TNP 06/08/17 06:05 Est GFR (Non-Af Amer) TNP 06/08/17 06:05 BUN/Creatinine Ratio 19.6 06/08/17 06:05 Glucose 133 mg/dL (70-105) H 06/08/17 06:05 POC Glucose 187 MG/DL (70 - 105) H 06/08/17 12:12 Hemoglobin A1c % 6.1 % (4.0-6.0) H 05/15/17 06:30 Plasma/Ser Osmolality 301 mOsmol/kg (280-301) 05/14/17 18:20 Whole Bld Lactic Acid 1.58 mmol/L (0.60-1.99) 05/13/17 17:42 Uric Acid 7.7 mg/dL (4.4-7.6) H 05/15/17 06:30 Calcium 8.9 mg/dL (8.6-10.3) 06/08/17 06:05 Phosphorus 2.5 mg/dL (2.5-5.0) 06/08/17 06:05 Magnesium 1.8 mg/dL (1.9-2.7) L 06/08/17 06:05 Iron 70 ug/dL (38-169) 06/04/17 04:47 TIBC 94 ug/dL (250-450) L 06/04/17 04:47 Iron Saturation 74 % (15-55) H 06/04/17 04:47 Unsaturated IBC 24 ug/dL (111-343) L 06/04/17 04:47 Ferritin 351 ng/mL (30-400) 06/03/17 04:48 Total Bilirubin 7.7 mg/dL (0.3-1.0) H 06/08/17 06:05 Direct Bilirubin 3.83 mg/dL (0.0-0.2) H 06/07/17 04:40 AST 242 U/L (13-39) H 06/08/17 06:05 ALT 22 U/L (7-52) 06/08/17 06:05 Alkaline Phosphatase 2019 U/L (34-104) H 06/08/17 06:05 Ammonia 47 umol/L (16-53) 06/08/17 14:08 Creatine Kinase 35 U/L (30-223) 05/16/17 23:06 Troponin I 0.02 ng/mL (0.01-0.05) 05/16/17 23:06 B-Natriuretic Peptide 1480.0 pg/mL (5.0-100.0) H 06/05/17 04:42 Total Protein 5.6 gm/dL (6.0-8.3) L 06/08/17 06:05 Albumin 3.1 gm/dL (4.2-5.5) L 06/08/17 06:05 Globulin 2.5 gm/dL 06/08/17 06:05 Albumin/Globulin Ratio 1.2 (1.0-1.8) 06/08/17 06:05 Prealbumin 6 mg/dL (9-32) L 06/04/17 04:47 Triglycerides 60 mg/dL (<150) 06/04/17 04:47 Cholesterol 63 mg/dL (<200) 06/04/17 04:47 Vitamin B12 >1999 pg/mL (211-946) H 06/04/17 04:47 Folic Acid >20.0 ng/mL (>3.0) 06/04/17 04:47 TSH 2.74 uIU/ml (0.34-5.60) 05/15/17 06:30 Urine Source CATH 06/06/17 10:30 Urine Color YELLOW 06/06/17 10:30 Urine Clarity SL. CLOUDY (CLEAR) 06/06/17 10:30 Urine pH 5.0 (4.6 - 8.0) 06/06/17 10:30 Ur Specific [place] 1.025 (1.005-1.030) 06/06/17 10:30 Urine Protein 100 mg/dL (NEGATIVE) H 06/06/17 10:30 Urine Glucose (UA) NEGATIVE mg/dL (NEGATIVE) 06/06/17 10:30 Urine Ketones NEGATIVE mg/dL (NEGATIVE) 06/06/17 10:30 Urine Blood LARGE (NEGATIVE) H 06/06/17 10:30 Urine Nitrate NEGATIVE (NEGATIVE) 06/06/17 10:30 Urine Bilirubin SMALL (NEGATIVE) H 06/06/17 10:30 Urine Urobilinogen 0.2 E.U./dL (0.2 - 1.0) 06/06/17 10:30 Ur Leukocyte Esterase LARGE (NEGATIVE) H 06/06/17 10:30 Urine RBC 20-30 /hpf (0-5) 06/06/17 10:30 Urine WBC 10-25 /hpf (0-5) H 06/06/17 10:30 Ur Epithelial Cells RARE /lpf (FEW) 06/06/17 10:30 Urine Bacteria f /hpf (NONE SEEN) 06/06/17 10:30 Urine Yeast MODERATE /hpf (NONE SEEN) H 06/06/17 10:30 Ur Random Sodium 30 mmol/L 05/14/17 18:00 Urine Creatinine 36.4 mg/dl (Not Estab.) 05/14/17 18:00 Urine Microalbumin 363.5 ug/mL (Not Estab.) 05/14/17 18:00 Microalb/Creat Ratio 998.6 mg/g creat (0.0-30.0) H 05/14/17 18:00 Stool Occult Blood NEGATIVE (NEGATIVE) 05/25/17 17:49 Random Vancomycin 19.1 ug/mL (5.0-40.0) 05/19/17 04:50 Acetaminophen < 10.0 ug/mL (10.0-30.0) L 06/07/17 04:40 Hepatitis A IgM Ab Negative (Negative) 05/21/17 04:46 Hep Bs Antigen Negative (Negative) 05/21/17 04:46 Hep B Core IgM Ab Negative (Negative) 05/21/17 04:46 Hepatitis C Antibody 0.1 s/co ratio (0.0-0.9) 05/21/17 04:46 Blood Type B POSITIVE 06/04/17 04:47 Antibody Screen NEGATIVE 06/04/17 04:47 Crossmatch See Detail 05/21/17 10:19 - Physical Exam Vitals and I&O: Vital Signs Temp 97.1 F 06/08/17 12:00 Pulse 100 06/08/17 15:18 Resp 21 06/08/17 15:56 BP 110/67 06/08/17 15:00 Pulse Ox 95 06/08/17 15:18 Intake & Output 06/07/17 06/08/17 06/08/17 18:59 06:59 18:59 Intake Total 1205 480 Output Total 2415 50 Balance -1210 430 Weight (lbs) 65.941 kg 64.41 kg Intake: Intake, IV Amount 350 100 Albumin 25% 25gm/100mL 25 100 gm In 100 ml @ 50 mls/hr IV X1 ONE Rx#:[id number] Albumin 25% 25gm/100mL 25 100 gm In 100 ml @ 50 mls/hr IV X1 ONE Rx#:[id number] Piperacillin Sodium/ 150 100 Tazobact 2.25 gm In Sodium Chloride 0.9% 50 ml @ 100 mls/hr IV Q6HR [facility] Rx#:[id number] Oral 0 Tube Feeding 625 180 Other 230 200 Output: Urine 215 50 Hemodialysis 2200 Other: # Bowel Movements 0 0 Active Medications: Current Medications Acetaminophen (Tylenol) 650 mg PO Q4HR PRN PRN Reason: Pain Or Fever above 101 Stop: 07/14/17 15:15 Last Admin: 06/06/17 08:50 Dose: 650 mg Albuterol/Ipratropium (Duoneb Neb) 3 ml HHN Q4HRT [facility] Stop: 07/19/17 14:59 Last Admin: 06/08/17 15:18 Dose: 3 ml Budesonide (Pulmicort) 1 mg HHN BIDRT [facility] Stop: 07/19/17 18:59 Last Admin: 06/08/17 07:44 Dose: 1 mg Calamine/Phenol (Calmoseptine) 1 appl TP QID PRN PRN Reason: Skin Irritation Stop: 08/03/17 12:28 Last Admin: 06/07/17 21:00 Dose: 1 appl Calamine/Phenol (Calmoseptine) 1 appl TP QID YESSICA Stop: 08/03/17 12:59 Last Admin: 06/08/17 13:26 Dose: 1 appl Carbidopa/Levodopa (Sinemet 25mg-100 Mg) 1 tab PO TID YESSICA Stop: 07/14/17 08:59 Last Admin: 06/08/17 13:31 Dose: 1 tab Chlorhexidine Gluconate (Peridex) 15 ml MM 0800,2000 [facility] Stop: 07/23/17 19:59 Last Admin: 06/08/17 09:35 Dose: 15 ml Clonidine HCl (Catapres) 0.1 mg PO Q6HR PRN PRN Reason: BP MAINTENANCE (PER PROTOCOL) Stop: 07/28/17 13:31 Last Admin: 05/29/17 21:04 Dose: 0.1 mg Dextrose (D50w) 50 ml IVP PRN PRN; Protocol PRN Reason: HYPOGLYCEMIA Stop: 07/20/17 00:54 Last Admin: 05/22/17 23:34 Dose: 50 ml Diltiazem HCl (Cardizem) 10 mg IVP Q6HR PRN PRN Reason: HR >130 Stop: 07/22/17 17:09 Last Admin: 05/24/17 04:21 Dose: 10 mg Hydralazine HCl (Apresoline 20 Mg/Ml) 10 mg IV Q6HR PRN PRN Reason: BP MAINTENANCE (PER PROTOCOL) Stop: 07/30/17 13:09 Last Admin: 06/06/17 12:30 Dose: 10 mg Norepinephrine Bitartrate 8 mg (/ Dextrose) 258 mls @ 0 mls/hr IV TITR PRN; Protocol; Titrate PRN Reason: BP MAINTENANCE (PER PROTOCOL) Stop: 07/19/17 12:29 Last Admin: 05/21/17 01:06 Dose: 10 mcg/min, 19.35 mls/hr Phenylephrine HCl 10 mg/ (Sodium Chloride) 250 mls @ 0 mls/hr IV TITR YESSICA; Per Protocol PRN Reason: Protocol Stop: 07/19/17 12:59 Piperacillin Sod/Tazobactam (Sod 2.25 gm/ Sodium Chloride) 50 mls @ 100 mls/hr IV Q6HR YESSICA Stop: 08/05/17 11:59 Last Admin: 06/08/17 13:16 Dose: 100 mls/hr Norepinephrine Bitartrate 4 mg (/ Dextrose) 254 mls @ 0 mls/hr IV TITR PRN; Protocol; Per Protocol PRN Reason: BP MAINTENANCE (PER PROTOCOL) Stop: 08/07/17 10:48 Albumin Human (Albuminar 25%) 25 gm in 100 mls @ 50 mls/hr IV X1 ONE Stop: 06/09/17 14:42 Albumin Human (Albuminar 25%) 25 gm in 100 mls @ 50 mls/hr IV X1 ONE Stop: 06/09/17 14:43 Insulin Aspart (Novolog Insulin Sliding Scale) 0 units SUBQ Q6HR YESSICA PRN Reason: Protocol Stop: 07/14/17 00:00 Last Admin: 06/08/17 13:15 Dose: Not Given Isosorbide Dinitrate (Isordil) 20 mg GT TID [facility] Stop: 07/28/17 13:33 Last Admin: 06/08/17 13:31 Dose: 20 mg Lactobacillus Rhamnosus (Culturelle) 1 each PO DAILY [facility] Stop: 07/17/17 08:59 Last Admin: 06/08/17 09:37 Dose: 1 each Levetiracetam (Keppra) 250 mg NG BID [facility] Stop: 07/14/17 08:59 Last Admin: 06/08/17 09:33 Dose: 250 mg Metoclopramide HCl (Reglan) 5 mg IVP TID [facility] Stop: 07/20/17 20:59 Last Admin: 06/08/17 13:30 Dose: 5 mg Metoprolol Tartrate (Lopressor) 50 mg GT Q8H [facility] Stop: 07/18/17 08:59 Last Admin: 06/08/17 09:38 Dose: 50 mg Miscellaneous (Vte Chemical Prophylaxis Screen/ Admission) 1 ea MC PRN PRN PRN Reason: PROTOCOL Stop: 07/14/17 09:25 Miscellaneous (Clinical Monitoring) 1 ea MC DAILY PRN PRN Reason: RENAL Stop: 07/15/17 12:32 Miscellaneous (Probiotic Screen) 1 ea MC PRN PRN PRN Reason: PROTOCOL Stop: 07/16/17 09:33 Morphine Sulfate (Morphine) 1 mg IVP Q4HR PRN PRN Reason: Pain (Moderate) Stop: 08/06/17 15:02 Last Admin: 06/07/17 15:15 Dose: 1 mg Pantoprazole Sodium (Protonix) 40 mg GT DAILY YESSICA Stop: 07/14/17 08:59 Last Admin: 06/08/17 09:30 Dose: 40 mg General: No acute distress, no Alert Cardiovascular: Regular rate Lungs: Other (rhonchi bilaterally) Abdomen: Soft, no Tender Extremities: no Edema (no edema) - Procedures Procedures: Procedures Procedure Code Date INSERT EMERGENCY AIRWAY 77315 05/13/17 INSERT TUNNELED CV CATH [id number] 05/13/17 INSERTION OF ENDOTRACHEAL AIRWAY INTO TRACHEA, VIA OPENING [id number] 05/13/17 INSERTION OF INFUSION DEV INTO R FEMOR VEIN, PERC APPROACH [id number] 05/13/17 RESPIRATORY VENTILATION, GREATER THAN 96 CONSECUTIVE HOURS [id number] 05/13/17 VENT MGMT INPAT INIT DAY [id number] 05/13/17 Assessment/Plan - Problem List Patient Problems: All Active Problems COUGH AND CONGESTION (Acute) Congestive heart failure (CHF) (Acute) I50.9 congestive heart failure (Acute) hypertension uncontrolled with bradycarda (Acute) renal failure (Acute) - Assessment Assessment: Current Active Problems Problem Status Onset COUGH AND CONGESTION Acute Acute respiratory failure vent dependant Renal failure improving on HD MDRO Pneumonia Afib RVR UTI CAD DIC 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 HIDA vs MRCP will dw GI Ammonia normal HD Trach per general surgery Heparin sub Q Cardizem iv prn Metoprolol Colistin per ID rec HD per nephrology rec Continue vent support PPN started for nutritional support tube feeding Plan of care discussed with nursing staff Nutritional Asmnt/Malnutr-PDOC - Dietary Evaluation Malnutrition Findings (Please click <Entered> for more info): Nutritional Asmnt/Malnutrition Start: 05/15/17 13: 56 Text: Status: Complete Freq: Document 05/15/17 13:56 GSUN (Rec: 05/15/17 14:18 GSTHALIA TORRES-FN) Nutritional Asmnt/Malnutrition Patient General Information Nutritional Screening High Risk Screening Diagnosis PNA, NICK, icnreasing renal failure, CVA, CHF, DM Pertinent Medical Hx/Surgical Hx CVA, dementia, afib, CAD, HTN, dyslipidemia, epilepsy, GERD, aspiration PNA, DM, CKD, dehydration, C. diff, anemia D Subjective Information 86 year old male from SNF. Pt greeted RD. Pt is overall thin , moderate to severe wasting to chest, clavicles, extremities. Observed Glytrol running at 60ml/hr x20hrs during visit. Unable to obtain CBW due to bedscale not calibrated. Discussed with YVETTE Farooq regarding tube feeding recommendations. Current Diet Order/ Nutrition Support Glytrol at 60ml/hr x 20hrs, providing 1200kcal 54g protein Pertinent Medications Lipitor, Novolog, Levemir, Cephulac, Morphine, Protonix, Nacl 0.9% Pertinent Labs 05/13: potassium 5.3H, BUN 80H, creatinine 2.4H, glucose 103 05/15: potassium WNL, BUN 70H, creatinine 2.4H, glucose 239H, A1c 6.1H, phosphorus 5.4H Nutritional Hx/Data Height 1.68 m Height (Calculated Centimeters) 167.6 Current Weight (lbs) 65.771 kg Weight (Calculated Kilograms) 65.8 Weight (Calculated Grams) 97544.9 [place] Body Weight 142 Weight Status Approriate GI Symptoms Difficult in: Swallowing Cultural/Ethnic/Adventism Belief [facility]: Glucerna 1.2 at 85ml/hr x 20hrs, providing 2040kcal, promote weight gain. Skin Integrity/Comment: Gee 12. Skin intact. Estimated Nutritional Goals Calories/Kcals/Kg CBW 145lb/65.9kg Kcals Calculated 1976-7kcal (30-35kcal/kg) Protein Calculated 46-92g (0.7-1.4g/kg, renal vs moderate to severe wasting) Fluid: ml Per MD (renal) Nutritional Problem 2. 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 Problem Problem Inadequate intake from enteral nutrition infusion related to Etiology estimated nutritional needs aeb Signs/Symptoms: providing to meet 61% lower end kcal needs Intervention/Recommendation Comments 1. Recommend Novasource Renal at 50ml/hr x 20hrs, providing 2000kcal and 91g protein. Current order Glytrol at 60ml/ hr x 20hrs is only providing 1200kcal, pt recieves 2040kcal at [facility]. Expected Outcomes/Goals Expected Outcomes/Goals 1. Pt to meet at least 100% of estimated nutritional needs on tube feeding with tolerance .
--- NOTE | 2017-06-08 21:20 | Progress Notes ---
DATE: 06/08/2017 PROBLEM LIST: 1. Acute respiratory failure. 2. Multidrug-resistant organism. 3. Congestive heart failure. 4. Atrial fibrillation. 5. Altered state of mind. SYMPTOMS: Nil, barely opens eyes. No respiratory distress. Currently on SIMV of 4 with pressor support. PHYSICAL EXAMINATION: VITAL SIGNS: Temperature is 96, pulse rate is 110, blood pressure is 120/59, saturation is 30%. NECK: Veins not visualized. CHEST: Shows diminished air entry with occasional rhonchi. HEART: Regular. ABDOMEN: Soft, nontender. LABORATORY DATA: White count is 7.2. INR is 1.21 and patient's platelet is 79,000, and slight abnormal LFT. ASSESSMENT: The patient is clinically stable, not much changed. PLANS AND SUGGESTIONS: We will continue current supportive care, possibly trach tomorrow and go from there. JOB# [id number]
--- NOTE | 2017-06-08 23:49 | Infectious Disease Prog Note ---
Infectious Disease Subjective - Review of Systems Service Date: 06/08/17 Subjective: No new change. developed fever today. intubated orally, on vent support. Infectious Disease Objective - Results Result Diagrams: 06/08/17 06:05 06/08/17 06:05 Recent Labs: Laboratory Last Values WBC 7.2 Th/cmm (4.8-10.8) 06/08/17 06:05 RBC 3.00 Mil/cmm (3.80-5.80) L 06/08/17 06:05 Hgb 8.6 gm/dL (12.6-17.4) L 06/08/17 06:05 Hct 24.7 % (39.0-49.0) L 06/08/17 06:05 MCV 81.8 fl (80-99) 06/08/17 06:05 MCH 28.4 pg (27.0-31.0) 06/08/17 06:05 MCHC Differential 34.8 pg (28.0-36.0) 06/08/17 06:05 RDW 16.9 % (11.5-20.0) 06/08/17 06:05 Plt Count 79 Th/cmm (150-400) L 06/08/17 06:05 MPV 12.4 fl 06/08/17 06:05 Neutrophils % 70.4 % (40.0-80.0) 06/08/17 06:05 Band Neutrophils % 5 % (0-10) 06/05/17 04:42 Lymphocytes % 12.5 % (20.0-50.0) L 06/08/17 06:05 Monocytes % 14.9 % (2.0-10.0) H 06/08/17 06:05 Eosinophils % 1.4 % (0.0-5.0) 06/08/17 06:05 Basophils % 0.8 % (0.0-2.0) 06/08/17 06:05 Neutrophils (Manual) 70 % (40-80) 06/06/17 05:03 Lymphocytes 10 % (20-50) L 06/06/17 05:03 Monocytes 16 % (2-10) H 06/06/17 05:03 Eosinophils 1 % (0-5) 06/06/17 05:03 Basophils 0 % (0-3) 05/24/17 04:49 Metamyelocytes 1 % (0-0) H 06/06/17 05:03 Atypical Lymphocytes 2 % 06/06/17 05:03 Toxic Granulation 1+ 05/23/17 04:48 Platelet Estimate DECREASED PLATELETS (NORMAL) 06/06/17 05:03 Platelet Morphology GIANT PLATELETS SEEN (NORMAL) 06/06/17 05:03 Poikilocytosis 1+ 06/06/17 05:03 Anisocytosis 1+ 06/06/17 05:03 Target Cells 1+ 06/06/17 05:03 RBC Morph Micro Appear ABNORMAL (NORMAL) 06/06/17 05:03 Eos Smear Source URINE 05/14/17 18:00 Eos Smear Total Cells FEW EOSINOPHILS SEEN (NONE SEEN) 05/14/17 18:00 Plt Count 79 Th/cmm (150-750) L 06/08/17 06:05 PT 12.7 SECONDS (9.5-11.5) H 06/08/17 06:05 INR 1.21 (0.5-1.4) 06/08/17 06:05 PTT (Actin FS) 38.8 SECONDS (26.0-38.0) H 06/08/17 06:05 Fibrinogen 214.0 mg/dL (200.0-400.0) 06/08/17 06:05 D-Dimer 1230 ng/mL (100-400) H 06/08/17 06:05 Specimen Source Arterial 06/07/17 09:29 Sample Site Left Radial 06/07/17 09:29 pH 7.48 (7.35-7.45) H 06/07/17 09:29 pCO2 42.0 mmHg (35.0-45.0) 06/07/17 09:29 pO2 71.0 mmHg (80.0-100.0) L 06/07/17 09:29 HCO3 30.4 mEq/L (20.0-26.0) H 06/07/17 09:29 Base Excess 7.1 mEq/L (-3.0-3.0) H 06/07/17 09:29 O2 Saturation 95.0 % (92.0-100.0) 06/07/17 09:29 Feliciano Test Positive 06/07/17 09:29 Vent Rate 4 06/07/17 09:29 Inspired O2 30 06/07/17 09:29 Tidal Volume 500 06/07/17 09:29 PEEP 0 06/06/17 08:45 Pressure (ins/psv/peep) 18 06/07/17 09:29 Critical Value PING 06/07/17 09:29 Sodium 136 mEq/L (136-145) 06/08/17 06:05 Potassium 3.6 mEq/L (3.5-5.1) 06/08/17 06:05 Chloride 99 mEq/L (98-107) 06/08/17 06:05 Carbon Dioxide 30.3 mEq/L (21.0-31.0) 06/08/17 06:05 Anion Gap 10.3 (7.0-16.0) 06/08/17 06:05 BUN 51 mg/dL (7-25) H 06/08/17 06:05 Creatinine 2.6 mg/dL (0.7-1.3) H 06/08/17 06:05 Est GFR ( Amer) TNP 06/08/17 06:05 Est GFR (Non-Af Amer) TNP 06/08/17 06:05 BUN/Creatinine Ratio 19.6 06/08/17 06:05 Glucose 133 mg/dL (70-105) H 06/08/17 06:05 POC Glucose 259 MG/DL (70 - 105) H 06/08/17 17:45 Hemoglobin A1c % 6.1 % (4.0-6.0) H 05/15/17 06:30 Plasma/Ser Osmolality 301 mOsmol/kg (280-301) 05/14/17 18:20 Whole Bld Lactic Acid 1.58 mmol/L (0.60-1.99) 05/13/17 17:42 Uric Acid 7.7 mg/dL (4.4-7.6) H 05/15/17 06:30 Calcium 8.9 mg/dL (8.6-10.3) 06/08/17 06:05 Phosphorus 2.5 mg/dL (2.5-5.0) 06/08/17 06:05 Magnesium 1.8 mg/dL (1.9-2.7) L 06/08/17 06:05 Iron 70 ug/dL (38-169) 06/04/17 04:47 TIBC 94 ug/dL (250-450) L 06/04/17 04:47 Iron Saturation 74 % (15-55) H 06/04/17 04:47 Unsaturated IBC 24 ug/dL (111-343) L 06/04/17 04:47 Ferritin 351 ng/mL (30-400) 06/03/17 04:48 Total Bilirubin 7.7 mg/dL (0.3-1.0) H 06/08/17 06:05 Direct Bilirubin 3.83 mg/dL (0.0-0.2) H 06/07/17 04:40 AST 242 U/L (13-39) H 06/08/17 06:05 ALT 22 U/L (7-52) 06/08/17 06:05 Alkaline Phosphatase 2019 U/L (34-104) H 06/08/17 06:05 Ammonia 47 umol/L (16-53) 06/08/17 14:08 Creatine Kinase 35 U/L (30-223) 05/16/17 23:06 Troponin I 0.02 ng/mL (0.01-0.05) 05/16/17 23:06 B-Natriuretic Peptide 1480.0 pg/mL (5.0-100.0) H 06/05/17 04:42 Total Protein 5.6 gm/dL (6.0-8.3) L 06/08/17 06:05 Albumin 3.1 gm/dL (4.2-5.5) L 06/08/17 06:05 Globulin 2.5 gm/dL 06/08/17 06:05 Albumin/Globulin Ratio 1.2 (1.0-1.8) 06/08/17 06:05 Prealbumin 6 mg/dL (9-32) L 06/04/17 04:47 Triglycerides 60 mg/dL (<150) 06/04/17 04:47 Cholesterol 63 mg/dL (<200) 06/04/17 04:47 Vitamin B12 >1999 pg/mL (211-946) H 06/04/17 04:47 Folic Acid >20.0 ng/mL (>3.0) 06/04/17 04:47 TSH 2.74 uIU/ml (0.34-5.60) 05/15/17 06:30 Urine Source CATH 06/06/17 10:30 Urine Color YELLOW 06/06/17 10:30 Urine Clarity SL. CLOUDY (CLEAR) 06/06/17 10:30 Urine pH 5.0 (4.6 - 8.0) 06/06/17 10:30 Ur Specific [place] 1.025 (1.005-1.030) 06/06/17 10:30 Urine Protein 100 mg/dL (NEGATIVE) H 06/06/17 10:30 Urine Glucose (UA) NEGATIVE mg/dL (NEGATIVE) 06/06/17 10:30 Urine Ketones NEGATIVE mg/dL (NEGATIVE) 06/06/17 10:30 Urine Blood LARGE (NEGATIVE) H 06/06/17 10:30 Urine Nitrate NEGATIVE (NEGATIVE) 06/06/17 10:30 Urine Bilirubin SMALL (NEGATIVE) H 06/06/17 10:30 Urine Urobilinogen 0.2 E.U./dL (0.2 - 1.0) 06/06/17 10:30 Ur Leukocyte Esterase LARGE (NEGATIVE) H 06/06/17 10:30 Urine RBC 20-30 /hpf (0-5) 06/06/17 10:30 Urine WBC 10-25 /hpf (0-5) H 06/06/17 10:30 Ur Epithelial Cells RARE /lpf (FEW) 06/06/17 10:30 Urine Bacteria f /hpf (NONE SEEN) 06/06/17 10:30 Urine Yeast MODERATE /hpf (NONE SEEN) H 06/06/17 10:30 Ur Random Sodium 30 mmol/L 05/14/17 18:00 Urine Creatinine 36.4 mg/dl (Not Estab.) 05/14/17 18:00 Urine Microalbumin 363.5 ug/mL (Not Estab.) 05/14/17 18:00 Microalb/Creat Ratio 998.6 mg/g creat (0.0-30.0) H 05/14/17 18:00 Stool Occult Blood NEGATIVE (NEGATIVE) 05/25/17 17:49 Random Vancomycin 19.1 ug/mL (5.0-40.0) 05/19/17 04:50 Acetaminophen < 10.0 ug/mL (10.0-30.0) L 06/07/17 04:40 Hepatitis A IgM Ab Negative (Negative) 05/21/17 04:46 Hep Bs Antigen Negative (Negative) 05/21/17 04:46 Hep B Core IgM Ab Negative (Negative) 05/21/17 04:46 Hepatitis C Antibody 0.1 s/co ratio (0.0-0.9) 05/21/17 04:46 Blood Type B POSITIVE 06/04/17 04:47 Antibody Screen NEGATIVE 06/04/17 04:47 Crossmatch See Detail 05/21/17 10:19 - Physical Exam Vitals and I&O: Vital Signs Temp 98.8 F 06/08/17 20:00 Pulse 113 06/08/17 22:14 Resp 17 06/08/17 22:00 BP 124/61 06/08/17 22:00 Pulse Ox 100 06/08/17 22:14 Intake & Output 06/08/17 06/08/17 06/09/17 06:59 18:59 06:59 Intake Total 480 600 Output Total 50 50 Balance 430 550 Weight (lbs) 64.41 kg 64.41 kg Intake: Intake, IV Amount 100 100 Piperacillin Sodium/ 100 100 Tazobact 2.25 gm In Sodium Chloride 0.9% 50 ml @ 100 mls/hr IV Q6HR [facility] Rx#:[id number] Oral 0 Tube Feeding 180 300 Other 200 200 Output: Urine 50 50 Other: # Bowel Movements 0 Active Medications: Current Medications Acetaminophen (Tylenol) 650 mg PO Q4HR PRN PRN Reason: Pain Or Fever above 101 Stop: 07/14/17 15:15 Last Admin: 06/06/17 08:50 Dose: 650 mg Albuterol/Ipratropium (Duoneb Neb) 3 ml HHN Q4HRT [facility] Stop: 07/19/17 14:59 Last Admin: 06/08/17 22:14 Dose: 3 ml Budesonide (Pulmicort) 1 mg HHN BIDRT [facility] Stop: 07/19/17 18:59 Last Admin: 06/08/17 19:13 Dose: 1 mg Calamine/Phenol (Calmoseptine) 1 appl TP QID PRN PRN Reason: Skin Irritation Stop: 08/03/17 12:28 Last Admin: 06/07/17 21:00 Dose: 1 appl Calamine/Phenol (Calmoseptine) 1 appl TP QID [facility] Stop: 08/03/17 12:59 Last Admin: 06/08/17 20:47 Dose: 1 appl Carbidopa/Levodopa (Sinemet 25mg-100 Mg) 1 tab PO TID [facility] Stop: 07/14/17 08:59 Last Admin: 06/08/17 20:46 Dose: 1 tab Chlorhexidine Gluconate (Peridex) 15 ml MM 0800,1999 YESSICA Stop: 07/23/17 19:59 Last Admin: 06/08/17 20:02 Dose: 15 ml Clonidine HCl (Catapres) 0.1 mg PO Q6HR PRN PRN Reason: BP MAINTENANCE (PER PROTOCOL) Stop: 07/28/17 13:31 Last Admin: 05/29/17 21:04 Dose: 0.1 mg Dextrose (D50w) 50 ml IVP PRN PRN; Protocol PRN Reason: HYPOGLYCEMIA Stop: 07/20/17 00:54 Last Admin: 05/22/17 23:34 Dose: 50 ml Diltiazem HCl (Cardizem) 10 mg IVP Q6HR PRN PRN Reason: HR >130 Stop: 07/22/17 17:09 Last Admin: 05/24/17 04:21 Dose: 10 mg Hydralazine HCl (Apresoline 20 Mg/Ml) 10 mg IV Q6HR PRN PRN Reason: BP MAINTENANCE (PER PROTOCOL) Stop: 07/30/17 13:09 Last Admin: 06/06/17 12:30 Dose: 10 mg Norepinephrine Bitartrate 8 mg (/ Dextrose) 258 mls @ 0 mls/hr IV TITR PRN; Protocol; Titrate PRN Reason: BP MAINTENANCE (PER PROTOCOL) Stop: 07/19/17 12:29 Last Admin: 05/21/17 01:06 Dose: 10 mcg/min, 19.35 mls/hr Phenylephrine HCl 10 mg/ (Sodium Chloride) 250 mls @ 0 mls/hr IV TITR YESSICA; Per Protocol PRN Reason: Protocol Stop: 07/19/17 12:59 Piperacillin Sod/Tazobactam (Sod 2.25 gm/ Sodium Chloride) 50 mls @ 100 mls/hr IV Q6HR YESSICA Stop: 08/05/17 11:59 Last Admin: 06/08/17 23:42 Dose: 100 mls/hr Norepinephrine Bitartrate 4 mg (/ Dextrose) 254 mls @ 0 mls/hr IV TITR PRN; Protocol; Per Protocol PRN Reason: BP MAINTENANCE (PER PROTOCOL) Stop: 08/07/17 10:48 Albumin Human (Albuminar 25%) 25 gm in 100 mls @ 50 mls/hr IV X1 ONE Stop: 06/09/17 14:42 Albumin Human (Albuminar 25%) 25 gm in 100 mls @ 50 mls/hr IV X1 ONE Stop: 06/09/17 14:43 Insulin Aspart (Novolog Insulin Sliding Scale) 0 units SUBQ Q6HR YESSICA PRN Reason: Protocol Stop: 07/14/17 00:00 Last Admin: 06/08/17 17:56 Dose: 3 units Isosorbide Dinitrate (Isordil) 20 mg GT TID [facility] Stop: 07/28/17 13:33 Last Admin: 06/08/17 20:45 Dose: 20 mg Lactobacillus Rhamnosus (Culturelle) 1 each PO DAILY [facility] Stop: 07/17/17 08:59 Last Admin: 06/08/17 09:37 Dose: 1 each Levetiracetam (Keppra) 250 mg NG BID [facility] Stop: 07/14/17 08:59 Last Admin: 06/08/17 17:37 Dose: 250 mg Metoclopramide HCl (Reglan) 5 mg IVP TID [facility] Stop: 07/20/17 20:59 Last Admin: 06/08/17 20:45 Dose: 5 mg Metoprolol Tartrate (Lopressor) 50 mg GT Q8H [facility] Stop: 07/18/17 08:59 Last Admin: 06/08/17 17:40 Dose: Not Given Miscellaneous (Vte Chemical Prophylaxis Screen/ Admission) 1 [facility] PRN PRN PRN Reason: PROTOCOL Stop: 07/14/17 09:25 Miscellaneous (Clinical Monitoring) 1 ea [facility] DAILY PRN PRN Reason: RENAL Stop: 07/15/17 12:32 Miscellaneous (Probiotic Screen) 1 [facility] PRN PRN PRN Reason: PROTOCOL Stop: 07/16/17 09:33 Morphine Sulfate (Morphine) 1 mg IVP Q4HR PRN PRN Reason: Pain (Moderate) Stop: 08/06/17 15:02 Last Admin: 06/07/17 15:15 Dose: 1 mg Pantoprazole Sodium (Protonix) 40 mg GT DAILY [facility] Stop: 07/14/17 08:59 Last Admin: 06/08/17 09:30 Dose: 40 mg General: no acute distress, cachectic HEENT: atraumatic, normocephalic, PERRLA, EOMI Neck: supple, no thyromegaly, no lymphadenopathy Cardiovascular: S1S2, regular Lungs: clear to percussion, crackles, rhonchi Abdomen: soft, no tender, no distended, no mass Extremities: no cyanosis, no clubbing, no edema Skin: other (sacral wound.) - Procedures Procedures: Procedures Procedure Code Date INSERT EMERGENCY AIRWAY 52171 05/13/17 INSERT TUNNELED CV CATH 32776 05/13/17 INSERTION OF ENDOTRACHEAL AIRWAY INTO TRACHEA, VIA OPENING [id number] 05/13/17 INSERTION OF INFUSION DEV INTO R FEMOR VEIN, PERC APPROACH [id number] 05/13/17 RESPIRATORY VENTILATION, GREATER THAN 96 CONSECUTIVE HOURS [id number] 05/13/17 VENT MGMT INPAT INIT DAY 50702 05/13/17 Infectious Disease Assmt/Plan - Problem List Patient Problems: All Active Problems COUGH AND CONGESTION (Acute) Congestive heart failure (CHF) (Acute) I50.9 congestive heart failure (Acute) hypertension uncontrolled with bradycarda (Acute) renal failure (Acute) - Assessment Assessment: 1. Pneuimonia.? Aspiration. 2. NICK. 3. CVA. 4. CHF. 5. CKD4. NICK mild rise in creatinine. 6. Afib with rapid ventricular response. 7. candiduria. 8. Fever. 9. Hyperbilirubinemia. Plan: Continue colistin nebulizer. Diflucan on hold because of increased bilirubin and elevated liver enzymes. Continue zosyn. Nutritional Asmnt/Malnutr-PDOC - Dietary Evaluation Malnutrition Findings (Please click <Entered> for more info): Nutritional Asmnt/Malnutrition Start: 05/15/17 13: 56 Text: Status: Complete Freq: Document 05/15/17 13:56 GSUN (Rec: 05/15/17 14:18 GSUN [id number]) Nutritional Asmnt/Malnutrition Patient General Information Nutritional Screening High Risk Screening Diagnosis PNA, NICK, icnreasing renal failure, CVA, CHF, DM Pertinent Medical Hx/Surgical Hx CVA, dementia, afib, CAD, HTN, dyslipidemia, epilepsy, GERD, aspiration PNA, DM, CKD, dehydration, C. diff, anemia D Subjective Information 86 year old male from SNF. Pt greeted RD. Pt is overall thin , moderate to severe wasting to chest, clavicles, extremities. Observed Glytrol running at 60ml/hr x20hrs during visit. Unable to obtain CBW due to bedscale not calibrated. Discussed with YVETTE Farooq regarding tube feeding recommendations. Current Diet Order/ Nutrition Support Glytrol at 60ml/hr x 20hrs, providing 1200kcal 54g protein Pertinent Medications Lipitor, Novolog, Levemir, Cephulac, Morphine, Protonix, Nacl 0.9% Pertinent Labs 05/13: potassium 5.3H, BUN 80H, creatinine 2.4H, glucose 103 05/15: potassium WNL, BUN 70H, creatinine 2.4H, glucose 239H, A1c 6.1H, phosphorus 5.4H Nutritional Hx/Data Height 1.68 m Height (Calculated Centimeters) 167.6 Current Weight (lbs) 65.771 kg Weight (Calculated Kilograms) 65.8 Weight (Calculated Grams) 51087.9 [place] Body Weight 142 Weight Status Approriate GI Symptoms Difficult in: Swallowing Cultural/Ethnic/Congregational Belief [facility]: Glucerna 1.2 at 85ml/hr x 20hrs, providing 2040kcal, promote weight gain. Skin Integrity/Comment: Gee 12. Skin intact. Estimated Nutritional Goals Calories/Kcals/Kg CBW 145lb/65.9kg Kcals Calculated 1976-7kcal (30-35kcal/kg) Protein Calculated 46-92g (0.7-1.4g/kg, renal vs moderate to severe wasting) Fluid: ml Per MD (renal) Nutritional Problem 2. Problem Problem Impaired nutrient utilization related to Etiology NICK, hx CKD aeb Signs/Symptoms: "increasing renal failure," potaasum 5.3H on adm, BUN 70H, sharepoint consultant 2.4H, phosphorus 5.4H 1. Problem Problem Inadequate intake from enteral nutrition infusion related to Etiology estimated nutritional needs aeb Signs/Symptoms: providing to meet 61% lower end kcal needs Intervention/Recommendation Comments 1. Recommend Novasource Renal at 50ml/hr x 20hrs, providing 2000kcal and 91g protein. Current order Glytrol at 60ml/ hr x 20hrs is only providing 1200kcal, pt recieves 2040kcal at [facility]. Expected Outcomes/Goals Expected Outcomes/Goals 1. Pt to meet at least 100% of estimated nutritional needs on tube feeding with tolerance .
[2017-06-09] MEDS: INSULIN ASPART SLIDING SCALE 100 UNITS/ML UNIT SUBQ SCH ×5 (00:01→23:58)
[2017-06-09] MEDS: Albuterol/Ipratropium Neb 3 ML AERS HHN SCH ×6 (02:01→22:51)
[2017-06-09] MEDS: Morphine Sulfate 2 mg/mL 1mL Syr IVP PRN (04:08)
[2017-06-09 05:23] LABS: ALB/GLOB RATIO 1.1 (1.0-1.8); ALKALINE PHOSPHATASE 2229 U/L (34-104); ANION GAP 12.9 (7.0-16.0); BILIRUBIN,TOTAL 9.4 mg/dL (0.3-1.0); BUN - UREA NITROGEN 63 mg/dL (7-25); BUN/CREATININE RATIO 19.7; CALCIUM SERUM 8.8 mg/dL (8.6-10.3); CARBON DIOXIDE 27.8 mEq/L (21.0-31.0); CHLORIDE 97 mEq/L (98-107); CREATININE - SERUM 3.2 mg/dL (0.7-1.3); GLUCOSE 187 mg/dL (70-105); MAGNESIUM 2.4 mg/dL (1.9-2.7); PHOSPHOROUS 2.7 mg/dL (2.5-5.0); POTASSIUM SERUM 3.7 mEq/L (3.5-5.1); SGOT 310 U/L (13-39); SGPT/ALT 23 U/L (7-52); SODIUM SERUM 134 mEq/L (136-145)
[2017-06-09 05:32] LABS: HEMATOCRIT 25.8 % (39.0-49.0); HEMOGLOBIN 8.6 gm/dL (12.6-17.4); MEAN CORPUSCULAR HEMOGLOBIN 28.1 pg (27.0-31.0); MEAN CORPUSCULAR HGB CONC 33.4 pg (28.0-36.0); MEAN PLATELET VOLUME 13.9 fl; PLATELET COUNT 97 Th/cmm (150-400); RED BLOOD COUNT 3.07 Mil/cmm (3.80-5.80); RED CELL DISTRIBUTION WIDTH 16.5 % (11.5-20.0)
[2017-06-09 05:34] LABS: INR 1.14 (0.5-1.4)
[2017-06-09] MEDS: Piperacillin/Tazobact 2.25 gm in 0.9% NS 50 ML IV SCH ×4 (05:52→23:56)
[2017-06-09] MEDS ORDERED: fentaNYL Citrate 100 mcg/2mL Vial ONE (07:28)
[2017-06-09] MEDS: Budesonide 0.5 Mg/2 mL Ud HHN SCH ×2 (08:03→18:59)
[2017-06-09] MEDS: Lactobacillus Rhamnosus 10 Billion CFU Capsule PO SCH (08:30)
[2017-06-09] MEDS ORDERED: Sodium Chloride 0.9% 200 ML IV ONE (08:45)
[2017-06-09 08:48] LABS: BAND NEUTROPHILE 2 % (0-10); NEUTROPHILS 68 % (40-80); TOTAL CELLS COUNTED 100
[2017-06-09 08:49] LABS: PLATELET ESTIMATE SLIGHT DECREASED (NORMAL)
--- NOTE | 2017-06-09 08:55 | Operative Report ---
DATE OF SURGERY: 06/09/2017 PREOPERATIVE DIAGNOSES: 1. Respiratory failure and vent support. 2. Acute renal failure, on hemodialysis. 3. Congestive heart failure. 4. Hypertension. POSTOPERATIVE DIAGNOSES: 1. Respiratory failure and vent support. 2. Acute renal failure, on hemodialysis. 3. Congestive heart failure. 4. Hypertension. OPERATION DONE: Tracheostomy. SURGEON: Jessenia Hare M.D. ANESTHESIA: Mery Frey M.D. ESTIMATED BLOOD LOSS: 5 mL. INDICATIONS FOR SURGERY: The patient unable to be taken off the vent. Informed consent discussed with son who gave the consent. DESCRIPTION OF PROCEDURE: The patient was given general anesthesia via the endotracheal tube. The neck was hyperextended, prepped with Betadine and draped in appropriate manner. An incision was made along the skin line below the high bone. This incision was carried down to the platysma muscle layers. The deep cervical fascia was divided vertically in the second and the third tracheal rings were incised vertically and horizontally. An 8-Yakut tracheostomy tube was then inserted. There was good hemostasis. The wound was packed with iodoform gauze. The tube was sutured in place and ____ tape was placed around the neck. The patient tolerated the procedure well. JOB# [id number]
[2017-06-09] MEDS: Levetiracetam 500 mg/5mL 5mL UDC NG SCH (10:16)
[2017-06-09] MEDS: Metoclopramide 5 mg/mL 2mL Vial IVP SCH ×3 (10:30→20:47)
[2017-06-09] MEDS: Pantoprazole 40 mg/Packet GT SCH (11:05)
[2017-06-09] MEDS: Menthol/Zinc Oxide Oint 113gm Tube TP SCH ×5 (11:13→20:47)
[2017-06-09] MEDS: Chlorhexidine Gluconate 0.12% 15mL Mouthwash MM SCH ×2 (11:13→19:34)
[2017-06-09] MEDS ORDERED: Albumin 25% 25gm/100mL 25 GM/100 ML BTL IV ONE ×2 (12:43→12:44)
--- NOTE | 2017-06-09 13:34 | General Progress Note ---
Subjective - Review of Systems Service Date: 06/09/17 Subjective: awake today, on vent, nonverbal Objective - Results Result Diagrams: 06/09/17 04:50 06/09/17 04:50 Recent Labs: Laboratory Last Values WBC 8.0 Th/cmm (4.8-10.8) 06/09/17 04:50 RBC 3.07 Mil/cmm (3.80-5.80) L 06/09/17 04:50 Hgb 8.6 gm/dL (12.6-17.4) L 06/09/17 04:50 Hct 25.8 % (39.0-49.0) L 06/09/17 04:50 MCV 84.0 fl (80-99) 06/09/17 04:50 MCH 28.1 pg (27.0-31.0) 06/09/17 04:50 MCHC Differential 33.4 pg (28.0-36.0) 06/09/17 04:50 RDW 16.5 % (11.5-20.0) 06/09/17 04:50 Plt Count 97 Th/cmm (150-400) L D 06/09/17 04:50 MPV 13.9 fl 06/09/17 04:50 Neutrophils % 70.4 % (40.0-80.0) 06/08/17 06:05 Band Neutrophils % 2 % (0-10) 06/09/17 04:50 Lymphocytes % 12.5 % (20.0-50.0) L 06/08/17 06:05 Monocytes % 14.9 % (2.0-10.0) H 06/08/17 06:05 Eosinophils % 1.4 % (0.0-5.0) 06/08/17 06:05 Basophils % 0.8 % (0.0-2.0) 06/08/17 06:05 Neutrophils (Manual) 68 % (40-80) 06/09/17 04:50 Lymphocytes 15 % (20-50) L 06/09/17 04:50 Monocytes 15 % (2-10) H 06/09/17 04:50 Eosinophils 1 % (0-5) 06/06/17 05:03 Basophils 0 % (0-3) 05/24/17 04:49 Metamyelocytes 1 % (0-0) H 06/06/17 05:03 Atypical Lymphocytes 2 % 06/06/17 05:03 Toxic Granulation 1+ 05/23/17 04:48 Platelet Estimate SLIGHT DECREASED (NORMAL) 06/09/17 04:50 Platelet Morphology GIANT PLATELETS SEEN (NORMAL) 06/06/17 05:03 Poikilocytosis 1+ 06/06/17 05:03 Anisocytosis 1+ 06/06/17 05:03 Target Cells 1+ 06/06/17 05:03 RBC Morph Micro Appear ABNORMAL (NORMAL) 06/06/17 05:03 Eos Smear Source URINE 05/14/17 18:00 Eos Smear Total Cells FEW EOSINOPHILS SEEN (NONE SEEN) 05/14/17 18:00 Plt Count 97 Th/cmm (150-750) L 06/09/17 04:50 PT 12.0 SECONDS (9.5-11.5) H 06/09/17 04:50 INR 1.14 (0.5-1.4) 06/09/17 04:50 PTT (Actin FS) 34.8 SECONDS (26.0-38.0) 06/09/17 04:50 Fibrinogen 269.0 mg/dL (200.0-400.0) 06/09/17 04:50 D-Dimer 1480 ng/mL (100-400) H 06/09/17 04:50 Specimen Source Arterial 06/07/17 09:29 Sample Site Left Radial 06/07/17 09:29 pH 7.48 (7.35-7.45) H 06/07/17 09:29 pCO2 42.0 mmHg (35.0-45.0) 06/07/17 09:29 pO2 71.0 mmHg (80.0-100.0) L 06/07/17 09:29 HCO3 30.4 mEq/L (20.0-26.0) H 06/07/17 09:29 Base Excess 7.1 mEq/L (-3.0-3.0) H 06/07/17 09:29 O2 Saturation 95.0 % (92.0-100.0) 06/07/17 09:29 Feliciano Test Positive 06/07/17 09:29 Vent Rate 4 06/07/17 09:29 Inspired O2 30 06/07/17 09:29 Tidal Volume 500 06/07/17 09:29 PEEP 0 06/06/17 08:45 Pressure (ins/psv/peep) 18 06/07/17 09:29 Critical Value PING 06/07/17 09:29 Sodium 134 mEq/L (136-145) L 06/09/17 04:50 Potassium 3.7 mEq/L (3.5-5.1) 06/09/17 04:50 Chloride 97 mEq/L (98-107) L 06/09/17 04:50 Carbon Dioxide 27.8 mEq/L (21.0-31.0) 06/09/17 04:50 Anion Gap 12.9 (7.0-16.0) 06/09/17 04:50 BUN 63 mg/dL (7-25) H 06/09/17 04:50 Creatinine 3.2 mg/dL (0.7-1.3) H 06/09/17 04:50 Est GFR ( Amer) TNP 06/09/17 04:50 Est GFR (Non-Af Amer) TNP 06/09/17 04:50 BUN/Creatinine Ratio 19.7 06/09/17 04:50 Glucose 187 mg/dL (70-105) H 06/09/17 04:50 POC Glucose 183 MG/DL (70 - 105) H 06/09/17 05:55 Hemoglobin A1c % 6.1 % (4.0-6.0) H 05/15/17 06:30 Plasma/Ser Osmolality 301 mOsmol/kg (280-301) 05/14/17 18:20 Whole Bld Lactic Acid 1.58 mmol/L (0.60-1.99) 05/13/17 17:42 Uric Acid 7.7 mg/dL (4.4-7.6) H 05/15/17 06:30 Calcium 8.8 mg/dL (8.6-10.3) 06/09/17 04:50 Phosphorus 2.7 mg/dL (2.5-5.0) 06/09/17 04:50 Magnesium 2.4 mg/dL (1.9-2.7) 06/09/17 04:50 Iron 70 ug/dL (38-169) 06/04/17 04:47 TIBC 94 ug/dL (250-450) L 06/04/17 04:47 Iron Saturation 74 % (15-55) H 06/04/17 04:47 Unsaturated IBC 24 ug/dL (111-343) L 06/04/17 04:47 Ferritin 351 ng/mL (30-400) 06/03/17 04:48 Total Bilirubin 9.4 mg/dL (0.3-1.0) H 06/09/17 04:50 Direct Bilirubin 3.83 mg/dL (0.0-0.2) H 06/07/17 04:40 AST 310 U/L (13-39) H 06/09/17 04:50 ALT 23 U/L (7-52) 06/09/17 04:50 Alkaline Phosphatase 2229 U/L (34-104) H 06/09/17 04:50 Ammonia 47 umol/L (16-53) 06/08/17 14:08 Creatine Kinase 35 U/L (30-223) 05/16/17 23:06 Troponin I 0.02 ng/mL (0.01-0.05) 05/16/17 23:06 B-Natriuretic Peptide 1480.0 pg/mL (5.0-100.0) H 06/05/17 04:42 Total Protein 5.4 gm/dL (6.0-8.3) L 06/09/17 04:50 Albumin 2.8 gm/dL (4.2-5.5) L 06/09/17 04:50 Globulin 2.6 gm/dL 06/09/17 04:50 Albumin/Globulin Ratio 1.1 (1.0-1.8) 06/09/17 04:50 Prealbumin 6 mg/dL (9-32) L 06/04/17 04:47 Triglycerides 60 mg/dL (<150) 06/04/17 04:47 Cholesterol 63 mg/dL (<200) 06/04/17 04:47 Vitamin B12 >1999 pg/mL (211-946) H 06/04/17 04:47 Folic Acid >20.0 ng/mL (>3.0) 06/04/17 04:47 TSH 2.74 uIU/ml (0.34-5.60) 05/15/17 06:30 Urine Source CATH 06/06/17 10:30 Urine Color YELLOW 06/06/17 10:30 Urine Clarity SL. CLOUDY (CLEAR) 06/06/17 10:30 Urine pH 5.0 (4.6 - 8.0) 06/06/17 10:30 Ur Specific [place] 1.025 (1.005-1.030) 06/06/17 10:30 Urine Protein 100 mg/dL (NEGATIVE) H 06/06/17 10:30 Urine Glucose (UA) NEGATIVE mg/dL (NEGATIVE) 06/06/17 10:30 Urine Ketones NEGATIVE mg/dL (NEGATIVE) 06/06/17 10:30 Urine Blood LARGE (NEGATIVE) H 06/06/17 10:30 Urine Nitrate NEGATIVE (NEGATIVE) 06/06/17 10:30 Urine Bilirubin SMALL (NEGATIVE) H 06/06/17 10:30 Urine Urobilinogen 0.2 E.U./dL (0.2 - 1.0) 06/06/17 10:30 Ur Leukocyte Esterase LARGE (NEGATIVE) H 06/06/17 10:30 Urine RBC 20-30 /hpf (0-5) 06/06/17 10:30 Urine WBC 10-25 /hpf (0-5) H 06/06/17 10:30 Ur Epithelial Cells RARE /lpf (FEW) 06/06/17 10:30 Urine Bacteria f /hpf (NONE SEEN) 06/06/17 10:30 Urine Yeast MODERATE /hpf (NONE SEEN) H 06/06/17 10:30 Ur Random Sodium 30 mmol/L 05/14/17 18:00 Urine Creatinine 36.4 mg/dl (Not Estab.) 05/14/17 18:00 Urine Microalbumin 363.5 ug/mL (Not Estab.) 05/14/17 18:00 Microalb/Creat Ratio 998.6 mg/g creat (0.0-30.0) H 05/14/17 18:00 Stool Occult Blood NEGATIVE (NEGATIVE) 05/25/17 17:49 Random Vancomycin 19.1 ug/mL (5.0-40.0) 05/19/17 04:50 Acetaminophen < 10.0 ug/mL (10.0-30.0) L 06/07/17 04:40 Hepatitis A IgM Ab Negative (Negative) 05/21/17 04:46 Hep Bs Antigen Negative (Negative) 05/21/17 04:46 Hep B Core IgM Ab Negative (Negative) 05/21/17 04:46 Hepatitis C Antibody 0.1 s/co ratio (0.0-0.9) 05/21/17 04:46 Blood Type B POSITIVE 06/04/17 04:47 Antibody Screen NEGATIVE 06/04/17 04:47 Crossmatch See Detail 05/21/17 10:19 - Physical Exam Vitals and I&O: Vital Signs Temp 97.2 F 06/09/17 09:00 Pulse 103 06/09/17 11:18 Resp 13 06/09/17 09:00 BP 95/49 06/09/17 11:17 Pulse Ox 97 06/09/17 11:18 Intake & Output 06/08/17 06/09/17 06/09/17 18:59 06:59 18:59 Intake Total 600 500 Output Total 50 50 Balance 550 450 Weight (lbs) 64.41 kg 64.92 kg Intake: Intake, IV Amount 100 100 Piperacillin Sodium/ 100 100 Tazobact 2.25 gm In Sodium Chloride 0.9% 50 ml @ 100 mls/hr IV Q6HR [facility] Rx#:[id number] Tube Feeding 300 300 Other 200 100 Output: Urine 50 50 Active Medications: Current Medications Acetaminophen (Tylenol) 650 mg PO Q4HR PRN PRN Reason: Pain Or Fever above 101 Stop: 07/14/17 15:15 Last Admin: 06/06/17 08:50 Dose: 650 mg Albuterol/Ipratropium (Duoneb Neb) 3 ml HHN Q4HRT [facility] Stop: 07/19/17 14:59 Last Admin: 06/09/17 11:12 Dose: 3 ml Budesonide (Pulmicort) 1 mg HHN BIDRT [facility] Stop: 07/19/17 18:59 Last Admin: 06/09/17 08:03 Dose: 1 mg Calamine/Phenol (Calmoseptine) 1 appl TP QID PRN PRN Reason: Skin Irritation Stop: 08/03/17 12:28 Last Admin: 06/07/17 21:00 Dose: 1 appl Calamine/Phenol (Calmoseptine) 1 appl TP QID [facility] Stop: 08/03/17 12:59 Last Admin: 06/09/17 11:14 Dose: 1 appl Carbidopa/Levodopa (Sinemet 25mg-100 Mg) 1 tab PO TID [facility] Stop: 07/14/17 08:59 Last Admin: 06/09/17 08:30 Dose: Not Given Chlorhexidine Gluconate (Peridex) 15 ml MM 0800,2000 YESSICA Stop: 07/23/17 19:59 Last Admin: 06/09/17 11:13 Dose: 15 ml Clonidine HCl (Catapres) 0.1 mg PO Q6HR PRN PRN Reason: BP MAINTENANCE (PER PROTOCOL) Stop: 07/28/17 13:31 Last Admin: 05/29/17 21:04 Dose: 0.1 mg Dextrose (D50w) 50 ml IVP PRN PRN; Protocol PRN Reason: HYPOGLYCEMIA Stop: 07/20/17 00:54 Last Admin: 05/22/17 23:34 Dose: 50 ml Diltiazem HCl (Cardizem) 10 mg IVP Q6HR PRN PRN Reason: HR >130 Stop: 07/22/17 17:09 Last Admin: 05/24/17 04:21 Dose: 10 mg Hydralazine HCl (Apresoline 20 Mg/Ml) 10 mg IV Q6HR PRN PRN Reason: BP MAINTENANCE (PER PROTOCOL) Stop: 07/30/17 13:09 Last Admin: 06/06/17 12:30 Dose: 10 mg Norepinephrine Bitartrate 8 mg (/ Dextrose) 258 mls @ 0 mls/hr IV TITR PRN; Protocol; Titrate PRN Reason: BP MAINTENANCE (PER PROTOCOL) Stop: 07/19/17 12:29 Last Admin: 05/21/17 01:06 Dose: 10 mcg/min, 19.35 mls/hr Phenylephrine HCl 10 mg/ (Sodium Chloride) 250 mls @ 0 mls/hr IV TITR YESSICA; Per Protocol PRN Reason: Protocol Stop: 07/19/17 12:59 Piperacillin Sod/Tazobactam (Sod 2.25 gm/ Sodium Chloride) 50 mls @ 100 mls/hr IV Q6HR YESSICA Stop: 08/05/17 11:59 Last Infusion: 06/09/17 06:25 Dose: Infused Norepinephrine Bitartrate 4 mg (/ Dextrose) 254 mls @ 0 mls/hr IV TITR PRN; Protocol; Per Protocol PRN Reason: BP MAINTENANCE (PER PROTOCOL) Stop: 08/07/17 10:48 Albumin Human (Albuminar 25%) 25 gm in 100 mls @ 50 mls/hr IV X1 ONE Stop: 06/09/17 14:42 Last Admin: 06/09/17 12:37 Dose: 100 mls/hr Albumin Human (Albuminar 25%) 25 gm in 100 mls @ 50 mls/hr IV X1 ONE Stop: 06/09/17 14:43 Last Admin: 06/09/17 12:38 Dose: 100 mls/hr Insulin Aspart (Novolog Insulin Sliding Scale) 0 units SUBQ Q6HR YESSICA PRN Reason: Protocol Stop: 07/14/17 00:00 Last Admin: 06/09/17 12:26 Dose: Not Given Isosorbide Dinitrate (Isordil) 20 mg GT TID [facility] Stop: 07/28/17 13:33 Last Admin: 06/09/17 10:40 Dose: Not Given Lactobacillus Rhamnosus (Culturelle) 1 each PO DAILY [facility] Stop: 07/17/17 08:59 Last Admin: 06/09/17 08:30 Dose: Not Given Metoclopramide HCl (Reglan) 5 mg IVP TID [facility] Stop: 07/20/17 20:59 Last Admin: 06/09/17 10:30 Dose: 5 mg Metoprolol Tartrate (Lopressor) 50 mg GT Q8H [facility] Stop: 07/18/17 08:59 Last Admin: 06/09/17 11:17 Dose: Not Given Miscellaneous (Vte Chemical Prophylaxis Screen/ Admission) 1 [facility] PRN PRN PRN Reason: PROTOCOL Stop: 07/14/17 09:25 Miscellaneous (Clinical Monitoring) 1 [facility] DAILY PRN PRN Reason: RENAL Stop: 07/15/17 12:32 Miscellaneous (Probiotic Screen) 1 [facility] PRN PRN PRN Reason: PROTOCOL Stop: 07/16/17 09:33 Morphine Sulfate (Morphine) 1 mg IVP Q4HR PRN PRN Reason: Pain (Moderate) Stop: 08/06/17 15:02 Last Admin: 06/09/17 04:08 Dose: 1 mg Pantoprazole Sodium (Protonix) 40 mg GT DAILY [facility] Stop: 07/14/17 08:59 Last Admin: 06/09/17 11:05 Dose: 40 mg General: No acute distress, no Alert HEENT: Atraumatic, EOMI Neck: Supple, +2 carotid pulse wo bruit, Other (trach) Cardiovascular: Regular rate Lungs: Other (rhonchi bilaterally) Abdomen: Soft, no Tender Extremities: no Edema (no edema) Neurological: Sensation intact, Other (opens eyes upon verbal command) Skin: no Rash Psych/Mental Status: Mood NL - Procedures Procedures: Procedures Procedure Code Date BYPASS TRACHEA TO CUTANEOUS WITH TRACH DEV, OPEN APPROACH [id number] 05/13/17 INCISION OF WINDPIPE 77067 05/13/17 INSERT EMERGENCY AIRWAY 40848 05/13/17 INSERT TUNNELED CV CATH 31780 05/13/17 INSERTION OF ENDOTRACHEAL AIRWAY INTO TRACHEA, VIA OPENING [id number] 05/13/17 INSERTION OF INFUSION DEV INTO R FEMOR VEIN, PERC APPROACH [id number] 05/13/17 RESPIRATORY VENTILATION, GREATER THAN 96 CONSECUTIVE HOURS [id number] 05/13/17 VENT MGMT INPAT INIT DAY 37946 05/13/17 Assessment/Plan - Problem List Patient Problems: All Active Problems COUGH AND CONGESTION (Acute) Congestive heart failure (CHF) (Acute) I50.9 congestive heart failure (Acute) hypertension uncontrolled with bradycarda (Acute) renal failure (Acute) - Assessment Assessment: NICK on CKD, now on dialysis A LOC secondary to metabolic encephalopathy/medications Dehydration Essential hypertension with CKD COPD Chronic atrial fibrillation Status post CVA Aspiration pneumonia/dysphagia status post PEG Type 2 diabetes mellitus with CKD Acute Decompensated CHF Acute Resp Failure on Vent Acute liver failure 2nd to congestion; possible meds ? Samantha Looney, TPN - Plan Plan: Lab - Result Diagrams 05/15/17 06:30 05/15/17 06:30 Current Medications Acetaminophen (Tylenol) 650 mg PO Q4HR PRN PRN Reason: Pain Or Fever above 101 Stop: 07/14/17 15:15 Last Admin: 05/15/17 16:21 Dose: 650 mg Albuterol Sulfate (Albuterol 2.5mg/3ml Neb Ud) 2.5 mg HHN Q6HRT YESSICA Stop: 07/14/17 00:59 Last Admin: 05/15/17 16:05 Dose: 2.5 mg Atorvastatin Calcium (Lipitor) 10 mg GT HS YESSICA PRN Reason: Protocol Stop: 07/14/17 20:59 Carbidopa/Levodopa (Sinemet 25mg-100 Mg) 1 tab PO TID YESSICA Stop: 07/14/17 08:59 Last Admin: 05/15/17 14:02 Dose: 1 tab Heparin Sodium (Porcine) (Heparin) 5,000 units SUBQ Q8H [facility] Stop: 07/14/17 14:59 Last Admin: 05/15/17 16:24 Dose: 5,000 units Sodium Chloride (Nacl 0.9%) 1,000 mls @ 60 mls/hr IV .[id number] [facility] Stop: 07/13/17 06:40 Last Admin: 05/14/17 17:16 Dose: 60 mls/hr Azithromycin 250 mg/ Sodium (Chloride) 250 mls @ 250 mls/hr IV Q24HR [facility] Stop: 05/20/17 08:59 Piperacillin Sod/Tazobactam (Sod 3.375 gm/ Sodium Chloride) 50 mls @ 100 mls/ hr IV Q8HR [facility] Stop: 07/14/17 15:14 Last Admin: 05/15/17 15:57 Dose: 100 mls/hr Insulin Aspart (Novolog Insulin Sliding Scale) 0 units SUBQ Q6HR [facility] PRN Reason: Protocol Stop: 07/14/17 00:00 Last Admin: 05/15/17 17:09 Dose: Not Given Insulin Detemir (Levemir Insulin) 14 units SUBQ DAILY [facility] PRN Reason: Protocol Stop: 07/15/17 08:59 Isosorbide Dinitrate (Isordil) 10 mg GT TID [facility] Stop: 07/14/17 08:59 Last Admin: 05/15/17 14:02 Dose: 10 mg Lactulose (Cephulac) 20 gm PO TID [facility] Stop: 07/14/17 08:59 Last Admin: 05/15/17 14:02 Dose: 20 gm Levetiracetam (Keppra) 250 mg NG BID [facility] Stop: 07/14/17 08:59 Last Admin: 05/15/17 16:23 Dose: 250 mg Metoprolol Tartrate (Lopressor) 37.5 mg GT BID [facility] Stop: 07/14/17 00:14 Last Admin: 05/15/17 16:22 Dose: 37.5 mg Miscellaneous (Vte Chemical Prophylaxis Screen/ Admission) 1 [facility] PRN PRN PRN Reason: PROTOCOL Stop: 07/14/17 09:25 Morphine Sulfate (Morphine) 2 mg IVP Q3H PRN PRN Reason: PAIN Stop: 07/13/17 19:46 Last Admin: 05/14/17 21:16 Dose: 2 mg Mupirocin (Bactroban Oint) 1 appl TP BID YESSICA Stop: 07/14/17 16:59 Last Admin: 05/15/17 16:24 Dose: 1 appl Pantoprazole Sodium (Protonix) 40 mg GT DAILY YESSICA Stop: 07/14/17 08:59 Last Admin: 05/15/17 08:36 Dose: 40 mg Rifaximin (Xifaxan) 550 mg GT BID YESSICA Stop: 07/14/17 08:59 Last Admin: 05/15/17 16:23 Dose: 550 mg Latest BUN/CR were 63/3.2 WBC 8 on Zosyn, dc Diflucan Chest x-ray still w/ b/l infiltrates, effusions, no significant change Reviewed his meds Follow-up electrolytes decreased nephro 25 ml/hr due to residuals prognosis poor Hgb/Hct up to 8.6/24.7 currently being dialyzed Follow-up electrolytes, CBC and chest x-ray in a.m. BNP still elevated @ 1480 replace MG currently being dialyzed Lab - Result Diagrams 05/24/17 04:49 05/24/17 04:49 addendum: Poor response to diuretics, w/ worsening CHF, BNP level developed resp failure, required intubation worsening cardio-renal syndrome discussed w/ grandson Pedro, about poor prognosis but still want to proceed w/ dialysis Nutritional Asmnt/Malnutr-PDOC - Dietary Evaluation Malnutrition Findings (Please click <Entered> for more info): Nutritional Asmnt/Malnutrition Start: 05/15/17 13: 56 Text: Status: Complete Freq: Document 05/15/17 13:56 GSUN (Rec: 05/15/17 14:18 GSUN [id number]) Nutritional Asmnt/Malnutrition Patient General Information Nutritional Screening High Risk Screening Diagnosis PNA, NICK, icnreasing renal failure, CVA, CHF, DM Pertinent Medical Hx/Surgical Hx CVA, dementia, afib, CAD, HTN, dyslipidemia, epilepsy, GERD, aspiration PNA, DM, CKD, dehydration, C. diff, anemia D Subjective Information 86 year old male from SNF. Pt greeted RD. Pt is overall thin , moderate to severe wasting to chest, clavicles, extremities. Observed Glytrol running at 60ml/hr x20hrs during visit. Unable to obtain CBW due to bedscale not calibrated. Discussed with YVETTE Farooq regarding tube feeding recommendations. Current Diet Order/ Nutrition Support Glytrol at 60ml/hr x 20hrs, providing 1200kcal 54g protein Pertinent Medications Lipitor, Novolog, Levemir, Cephulac, Morphine, Protonix, Nacl 0.9% Pertinent Labs 05/13: potassium 5.3H, BUN 80H, creatinine 2.4H, glucose 103 05/15: potassium WNL, BUN 70H, creatinine 2.4H, glucose 239H, A1c 6.1H, phosphorus 5.4H Nutritional Hx/Data Height 1.68 m Height (Calculated Centimeters) 167.6 Current Weight (lbs) 65.771 kg Weight (Calculated Kilograms) 65.8 Weight (Calculated Grams) 39462.9 [place] Body Weight 142 Weight Status Approriate GI Symptoms Difficult in: Swallowing Cultural/Ethnic/Anglican Belief [facility]: Glucerna 1.2 at 85ml/hr x 20hrs, providing 2040kcal, promote weight gain. Skin Integrity/Comment: Gee 12. Skin intact. Estimated Nutritional Goals Calories/Kcals/Kg CBW 145lb/65.9kg Kcals Calculated 1976-2307kcal (30-35kcal/kg) Protein Calculated 46-92g (0.7-1.4g/kg, renal vs moderate to severe wasting) Fluid: ml Per MD (renal) Nutritional Problem 2. Problem Problem Impaired nutrient utilization related to Etiology NICK, hx CKD aeb Signs/Symptoms: "increasing renal failure," potaasum 5.3H on adm, BUN 70H, manager federal 2.4H, phosphorus 5.4H 1. Problem Problem Inadequate intake from enteral nutrition infusion related to Etiology estimated nutritional needs aeb Signs/Symptoms: providing to meet 61% lower end kcal needs Intervention/Recommendation Comments 1. Recommend Novasource Renal at 50ml/hr x 20hrs, providing 2000kcal and 91g protein. Current order Glytrol at 60ml/ hr x 20hrs is only providing 1200kcal, pt recieves 2040kcal at [facility]. Expected Outcomes/Goals Expected Outcomes/Goals 1. Pt to meet at least 100% of estimated nutritional needs on tube feeding with tolerance .
--- NOTE | 2017-06-09 18:27 | General Progress Note ---
Subjective - Review of Systems Service Date: 06/09/17 Subjective: Patient seen and examined s/p trach placement this am HD today Objective - Results Result Diagrams: 06/09/17 04:50 06/09/17 04:50 Recent Labs: Laboratory Last Values WBC 8.0 Th/cmm (4.8-10.8) 06/09/17 04:50 RBC 3.07 Mil/cmm (3.80-5.80) L 06/09/17 04:50 Hgb 8.6 gm/dL (12.6-17.4) L 06/09/17 04:50 Hct 25.8 % (39.0-49.0) L 06/09/17 04:50 MCV 84.0 fl (80-99) 06/09/17 04:50 MCH 28.1 pg (27.0-31.0) 06/09/17 04:50 MCHC Differential 33.4 pg (28.0-36.0) 06/09/17 04:50 RDW 16.5 % (11.5-20.0) 06/09/17 04:50 Plt Count 97 Th/cmm (150-400) L D 06/09/17 04:50 MPV 13.9 fl 06/09/17 04:50 Neutrophils % 70.4 % (40.0-80.0) 06/08/17 06:05 Band Neutrophils % 2 % (0-10) 06/09/17 04:50 Lymphocytes % 12.5 % (20.0-50.0) L 06/08/17 06:05 Monocytes % 14.9 % (2.0-10.0) H 06/08/17 06:05 Eosinophils % 1.4 % (0.0-5.0) 06/08/17 06:05 Basophils % 0.8 % (0.0-2.0) 06/08/17 06:05 Neutrophils (Manual) 68 % (40-80) 06/09/17 04:50 Lymphocytes 15 % (20-50) L 06/09/17 04:50 Monocytes 15 % (2-10) H 06/09/17 04:50 Eosinophils 1 % (0-5) 06/06/17 05:03 Basophils 0 % (0-3) 05/24/17 04:49 Metamyelocytes 1 % (0-0) H 06/06/17 05:03 Atypical Lymphocytes 2 % 06/06/17 05:03 Toxic Granulation 1+ 05/23/17 04:48 Platelet Estimate SLIGHT DECREASED (NORMAL) 06/09/17 04:50 Platelet Morphology GIANT PLATELETS SEEN (NORMAL) 06/06/17 05:03 Poikilocytosis 1+ 06/06/17 05:03 Anisocytosis 1+ 06/06/17 05:03 Target Cells 1+ 06/06/17 05:03 RBC Morph Micro Appear ABNORMAL (NORMAL) 06/06/17 05:03 Eos Smear Source URINE 05/14/17 18:00 Eos Smear Total Cells FEW EOSINOPHILS SEEN (NONE SEEN) 05/14/17 18:00 Plt Count 97 Th/cmm (150-750) L 06/09/17 04:50 PT 12.0 SECONDS (9.5-11.5) H 06/09/17 04:50 INR 1.14 (0.5-1.4) 06/09/17 04:50 PTT (Actin FS) 34.8 SECONDS (26.0-38.0) 06/09/17 04:50 Fibrinogen 269.0 mg/dL (200.0-400.0) 06/09/17 04:50 D-Dimer 1480 ng/mL (100-400) H 06/09/17 04:50 Specimen Source Arterial 06/07/17 09:29 Sample Site Left Radial 06/07/17 09:29 pH 7.48 (7.35-7.45) H 06/07/17 09:29 pCO2 42.0 mmHg (35.0-45.0) 06/07/17 09:29 pO2 71.0 mmHg (80.0-100.0) L 06/07/17 09:29 HCO3 30.4 mEq/L (20.0-26.0) H 06/07/17 09:29 Base Excess 7.1 mEq/L (-3.0-3.0) H 06/07/17 09:29 O2 Saturation 95.0 % (92.0-100.0) 06/07/17 09:29 Feliciano Test Positive 06/07/17 09:29 Vent Rate 4 06/07/17 09:29 Inspired O2 30 06/07/17 09:29 Tidal Volume 500 06/07/17 09:29 PEEP 0 06/06/17 08:45 Pressure (ins/psv/peep) 18 06/07/17 09:29 Critical Value PING 06/07/17 09:29 Sodium 134 mEq/L (136-145) L 06/09/17 04:50 Potassium 3.7 mEq/L (3.5-5.1) 06/09/17 04:50 Chloride 97 mEq/L (98-107) L 06/09/17 04:50 Carbon Dioxide 27.8 mEq/L (21.0-31.0) 06/09/17 04:50 Anion Gap 12.9 (7.0-16.0) 06/09/17 04:50 BUN 63 mg/dL (7-25) H 06/09/17 04:50 Creatinine 3.2 mg/dL (0.7-1.3) H 06/09/17 04:50 Est GFR ( Amer) TNP 06/09/17 04:50 Est GFR (Non-Af Amer) TNP 06/09/17 04:50 BUN/Creatinine Ratio 19.7 06/09/17 04:50 Glucose 187 mg/dL (70-105) H 06/09/17 04:50 POC Glucose 183 MG/DL (70 - 105) H 06/09/17 05:55 Hemoglobin A1c % 6.1 % (4.0-6.0) H 05/15/17 06:30 Plasma/Ser Osmolality 301 mOsmol/kg (280-301) 05/14/17 18:20 Whole Bld Lactic Acid 1.58 mmol/L (0.60-1.99) 05/13/17 17:42 Uric Acid 7.7 mg/dL (4.4-7.6) H 05/15/17 06:30 Calcium 8.8 mg/dL (8.6-10.3) 06/09/17 04:50 Phosphorus 2.7 mg/dL (2.5-5.0) 06/09/17 04:50 Magnesium 2.4 mg/dL (1.9-2.7) 06/09/17 04:50 Iron 70 ug/dL (38-169) 06/04/17 04:47 TIBC 94 ug/dL (250-450) L 06/04/17 04:47 Iron Saturation 74 % (15-55) H 06/04/17 04:47 Unsaturated IBC 24 ug/dL (111-343) L 06/04/17 04:47 Ferritin 351 ng/mL (30-400) 06/03/17 04:48 Total Bilirubin 9.4 mg/dL (0.3-1.0) H 06/09/17 04:50 Direct Bilirubin 3.83 mg/dL (0.0-0.2) H 06/07/17 04:40 AST 310 U/L (13-39) H 06/09/17 04:50 ALT 23 U/L (7-52) 06/09/17 04:50 Alkaline Phosphatase 2229 U/L (34-104) H 06/09/17 04:50 Ammonia 47 umol/L (16-53) 06/08/17 14:08 Creatine Kinase 35 U/L (30-223) 05/16/17 23:06 Troponin I 0.02 ng/mL (0.01-0.05) 05/16/17 23:06 B-Natriuretic Peptide 1480.0 pg/mL (5.0-100.0) H 06/05/17 04:42 Total Protein 5.4 gm/dL (6.0-8.3) L 06/09/17 04:50 Albumin 2.8 gm/dL (4.2-5.5) L 06/09/17 04:50 Globulin 2.6 gm/dL 06/09/17 04:50 Albumin/Globulin Ratio 1.1 (1.0-1.8) 06/09/17 04:50 Prealbumin 6 mg/dL (9-32) L 06/04/17 04:47 Triglycerides 60 mg/dL (<150) 06/04/17 04:47 Cholesterol 63 mg/dL (<200) 06/04/17 04:47 Vitamin B12 >1999 pg/mL (211-946) H 06/04/17 04:47 Folic Acid >20.0 ng/mL (>3.0) 06/04/17 04:47 TSH 2.74 uIU/ml (0.34-5.60) 05/15/17 06:30 Urine Source CATH 06/06/17 10:30 Urine Color YELLOW 06/06/17 10:30 Urine Clarity SL. CLOUDY (CLEAR) 06/06/17 10:30 Urine pH 5.0 (4.6 - 8.0) 06/06/17 10:30 Ur Specific [place] 1.025 (1.005-1.030) 06/06/17 10:30 Urine Protein 100 mg/dL (NEGATIVE) H 06/06/17 10:30 Urine Glucose (UA) NEGATIVE mg/dL (NEGATIVE) 06/06/17 10:30 Urine Ketones NEGATIVE mg/dL (NEGATIVE) 06/06/17 10:30 Urine Blood LARGE (NEGATIVE) H 06/06/17 10:30 Urine Nitrate NEGATIVE (NEGATIVE) 06/06/17 10:30 Urine Bilirubin SMALL (NEGATIVE) H 06/06/17 10:30 Urine Urobilinogen 0.2 E.U./dL (0.2 - 1.0) 06/06/17 10:30 Ur Leukocyte Esterase LARGE (NEGATIVE) H 06/06/17 10:30 Urine RBC 20-30 /hpf (0-5) 06/06/17 10:30 Urine WBC 10-25 /hpf (0-5) H 06/06/17 10:30 Ur Epithelial Cells RARE /lpf (FEW) 06/06/17 10:30 Urine Bacteria f /hpf (NONE SEEN) 06/06/17 10:30 Urine Yeast MODERATE /hpf (NONE SEEN) H 06/06/17 10:30 Ur Random Sodium 30 mmol/L 05/14/17 18:00 Urine Creatinine 36.4 mg/dl (Not Estab.) 05/14/17 18:00 Urine Microalbumin 363.5 ug/mL (Not Estab.) 05/14/17 18:00 Microalb/Creat Ratio 998.6 mg/g creat (0.0-30.0) H 05/14/17 18:00 Stool Occult Blood NEGATIVE (NEGATIVE) 05/25/17 17:49 Random Vancomycin 19.1 ug/mL (5.0-40.0) 05/19/17 04:50 Acetaminophen < 10.0 ug/mL (10.0-30.0) L 06/07/17 04:40 Hepatitis A IgM Ab Negative (Negative) 05/21/17 04:46 Hep Bs Antigen Negative (Negative) 05/21/17 04:46 Hep B Core IgM Ab Negative (Negative) 05/21/17 04:46 Hepatitis C Antibody 0.1 s/co ratio (0.0-0.9) 05/21/17 04:46 Blood Type B POSITIVE 06/04/17 04:47 Antibody Screen NEGATIVE 06/04/17 04:47 Crossmatch See Detail 05/21/17 10:19 - Physical Exam Vitals and I&O: Vital Signs Temp 97.6 F 06/09/17 14:00 Pulse 108 06/09/17 17:32 Resp 14 06/09/17 14:00 BP 108/52 06/09/17 17:02 Pulse Ox 95 06/09/17 17:32 Intake & Output 06/08/17 06/09/17 06/09/17 18:59 06:59 18:59 Intake Total 600 500 50 Output Total 50 50 Balance 550 450 50 Weight (lbs) 64.41 kg 64.92 kg Intake: Intake, IV Amount 100 100 50 Piperacillin Sodium/ 100 100 50 Tazobact 2.25 gm In Sodium Chloride 0.9% 50 ml @ 100 mls/hr IV Q6HR [facility] Rx#:[id number] Tube Feeding 300 300 Other 200 100 Output: Urine 50 50 Active Medications: Current Medications Acetaminophen (Tylenol) 650 mg PO Q4HR PRN PRN Reason: Pain Or Fever above 101 Stop: 07/14/17 15:15 Last Admin: 06/06/17 08:50 Dose: 650 mg Albuterol/Ipratropium (Duoneb Neb) 3 ml HHN Q4HRT [facility] Stop: 07/19/17 14:59 Last Admin: 06/09/17 15:27 Dose: 3 ml Budesonide (Pulmicort) 1 mg HHN BIDRT [facility] Stop: 07/19/17 18:59 Last Admin: 06/09/17 08:03 Dose: 1 mg Calamine/Phenol (Calmoseptine) 1 appl TP QID PRN PRN Reason: Skin Irritation Stop: 08/03/17 12:28 Last Admin: 06/07/17 21:00 Dose: 1 appl Calamine/Phenol (Calmoseptine) 1 appl TP QID [facility] Stop: 08/03/17 12:59 Last Admin: 06/09/17 14:20 Dose: 1 appl Carbidopa/Levodopa (Sinemet 25mg-100 Mg) 1 tab PO TID [facility] Stop: 07/14/17 08:59 Last Admin: 06/09/17 14:20 Dose: 1 tab Chlorhexidine Gluconate (Peridex) 15 ml MM 0800,2000 YESSICA Stop: 07/23/17 19:59 Last Admin: 06/09/17 11:13 Dose: 15 ml Clonidine HCl (Catapres) 0.1 mg PO Q6HR PRN PRN Reason: BP MAINTENANCE (PER PROTOCOL) Stop: 07/28/17 13:31 Last Admin: 05/29/17 21:04 Dose: 0.1 mg Dextrose (D50w) 50 ml IVP PRN PRN; Protocol PRN Reason: HYPOGLYCEMIA Stop: 07/20/17 00:54 Last Admin: 05/22/17 23:34 Dose: 50 ml Diltiazem HCl (Cardizem) 10 mg IVP Q6HR PRN PRN Reason: HR >130 Stop: 07/22/17 17:09 Last Admin: 05/24/17 04:21 Dose: 10 mg Hydralazine HCl (Apresoline 20 Mg/Ml) 10 mg IV Q6HR PRN PRN Reason: BP MAINTENANCE (PER PROTOCOL) Stop: 07/30/17 13:09 Last Admin: 06/06/17 12:30 Dose: 10 mg Norepinephrine Bitartrate 8 mg (/ Dextrose) 258 mls @ 0 mls/hr IV TITR PRN; Protocol; Titrate PRN Reason: BP MAINTENANCE (PER PROTOCOL) Stop: 07/19/17 12:29 Last Admin: 05/21/17 01:06 Dose: 10 mcg/min, 19.35 mls/hr Phenylephrine HCl 10 mg/ (Sodium Chloride) 250 mls @ 0 mls/hr IV TITR YESSICA; Per Protocol PRN Reason: Protocol Stop: 07/19/17 12:59 Piperacillin Sod/Tazobactam (Sod 2.25 gm/ Sodium Chloride) 50 mls @ 100 mls/hr IV Q6HR YESSICA Stop: 08/05/17 11:59 Last Admin: 06/09/17 17:20 Dose: 100 mls/hr Norepinephrine Bitartrate 4 mg (/ Dextrose) 254 mls @ 0 mls/hr IV TITR PRN; Protocol; Per Protocol PRN Reason: BP MAINTENANCE (PER PROTOCOL) Stop: 08/07/17 10:48 Insulin Aspart (Novolog Insulin Sliding Scale) 0 units SUBQ Q6HR [facility] PRN Reason: Protocol Stop: 07/14/17 00:00 Last Admin: 06/09/17 12:26 Dose: Not Given Isosorbide Dinitrate (Isordil) 20 mg GT TID [facility] Stop: 07/28/17 13:33 Last Admin: 06/09/17 14:20 Dose: 20 mg Lactobacillus Rhamnosus (Culturelle) 1 each PO DAILY [facility] Stop: 07/17/17 08:59 Last Admin: 06/09/17 08:30 Dose: Not Given Metoclopramide HCl (Reglan) 5 mg IVP TID [facility] Stop: 07/20/17 20:59 Last Admin: 06/09/17 14:22 Dose: 5 mg Metoprolol Tartrate (Lopressor) 50 mg GT Q8H [facility] Stop: 07/18/17 08:59 Last Admin: 06/09/17 17:02 Dose: Not Given Miscellaneous (Vte Chemical Prophylaxis Screen/ Admission) 1 [facility] PRN PRN PRN Reason: PROTOCOL Stop: 07/14/17 09:25 Miscellaneous (Clinical Monitoring) 1 ea [facility] DAILY PRN PRN Reason: RENAL Stop: 07/15/17 12:32 Miscellaneous (Probiotic Screen) 1 [facility] PRN PRN PRN Reason: PROTOCOL Stop: 07/16/17 09:33 Morphine Sulfate (Morphine) 1 mg IVP Q4HR PRN PRN Reason: Pain (Moderate) Stop: 08/06/17 15:02 Last Admin: 06/09/17 04:08 Dose: 1 mg Pantoprazole Sodium (Protonix) 40 mg GT DAILY [facility] Stop: 07/14/17 08:59 Last Admin: 06/09/17 11:05 Dose: 40 mg General: Alert, No acute distress Cardiovascular: Regular rate Lungs: Other (rhonchi bilaterally) Abdomen: Soft, no Tender Extremities: no Edema (no edema) Skin: Rash - Procedures Procedures: Procedures Procedure Code Date BYPASS TRACHEA TO CUTANEOUS WITH TRACH DEV, OPEN APPROACH [id number] 05/13/17 INCISION OF WINDPIPE 80513 05/13/17 INSERT EMERGENCY AIRWAY 72991 05/13/17 INSERT TUNNELED CV CATH 53019 05/13/17 INSERTION OF ENDOTRACHEAL AIRWAY INTO TRACHEA, VIA OPENING [id number] 05/13/17 INSERTION OF INFUSION DEV INTO R FEMOR VEIN, PERC APPROACH [id number] 05/13/17 RESPIRATORY VENTILATION, GREATER THAN 96 CONSECUTIVE HOURS [id number] 05/13/17 VENT MGMT INPAT INIT DAY 70828 05/13/17 Assessment/Plan - Problem List Patient Problems: All Active Problems COUGH AND CONGESTION (Acute) Congestive heart failure (CHF) (Acute) I50.9 congestive heart failure (Acute) hypertension uncontrolled with bradycarda (Acute) renal failure (Acute) - Assessment Assessment: Current Active Problems Problem Status Onset COUGH AND CONGESTION Acute Acute respiratory failure vent dependant s/p trach Renal failure improving on HD MDRO Pneumonia Afib RVR UTI CAD DIC 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 HTN renal disease Seizure disorder Elevated liver enzymes r/o biliary obstruction - Plan Plan: Case discussed with GI MRI requested to r/o biliary obstruction ( rising liver enzymes) HD Trach per general surgery Heparin sub Q Cardizem iv prn Metoprolol Antibiotics ID rec HD per nephrology rec Continue vent support PPN started for nutritional support tube feeding Plan of care discussed with nursing staff Daughter was updated on pt's condition and plan of care Overall prognosis is poor explained to the daughter she understood LTAC DC planing in progress Nutritional Asmnt/Malnutr-PDOC - Dietary Evaluation Malnutrition Findings (Please click <Entered> for more info): Nutritional Asmnt/Malnutrition Start: 05/15/17 13: 56 Text: Status: Complete Freq: Document 05/15/17 13:56 GSUN (Rec: 05/15/17 14:18 GSUN [id number]) Nutritional Asmnt/Malnutrition Patient General Information Nutritional Screening High Risk Screening Diagnosis PNA, NICK, icnreasing renal failure, CVA, CHF, DM Pertinent Medical Hx/Surgical Hx CVA, dementia, afib, CAD, HTN, dyslipidemia, epilepsy, GERD, aspiration PNA, DM, CKD, dehydration, C. diff, anemia D Subjective Information 86 year old male from SNF. Pt greeted RD. Pt is overall thin , moderate to severe wasting to chest, clavicles, extremities. Observed Glytrol running at 60ml/hr x20hrs during visit. Unable to obtain CBW due to bedscale not calibrated. Discussed with YVETTE Farooq regarding tube feeding recommendations. Current Diet Order/ Nutrition Support Glytrol at 60ml/hr x 20hrs, providing 1200kcal 54g protein Pertinent Medications Lipitor, Novolog, Levemir, Cephulac, Morphine, Protonix, Nacl 0.9% Pertinent Labs 05/13: potassium 5.3H, BUN 80H, creatinine 2.4H, glucose 103 05/15: potassium WNL, BUN 70H, creatinine 2.4H, glucose 239H, A1c 6.1H, phosphorus 5.4H Nutritional Hx/Data Height 1.68 m Height (Calculated Centimeters) 167.6 Current Weight (lbs) 65.771 kg Weight (Calculated Kilograms) 65.8 Weight (Calculated Grams) 16229.9 [place] Body Weight 142 Weight Status Approriate GI Symptoms Difficult in: Swallowing Cultural/Ethnic/Buddhism Belief [facility]: Glucerna 1.2 at 85ml/hr x 20hrs, providing 2040kcal, promote weight gain. Skin Integrity/Comment: Gee 12. Skin intact. Estimated Nutritional Goals Calories/Kcals/Kg CBW 145lb/65.9kg Kcals Calculated 1976-2307kcal (30-35kcal/kg) Protein Calculated 46-92g (0.7-1.4g/kg, renal vs moderate to severe wasting) Fluid: ml Per MD (renal) Nutritional Problem 2. 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 Problem Problem Inadequate intake from enteral nutrition infusion related to Etiology estimated nutritional needs aeb Signs/Symptoms: providing to meet 61% lower end kcal needs Intervention/Recommendation Comments 1. Recommend Novasource Renal at 50ml/hr x 20hrs, providing 2000kcal and 91g protein. Current order Glytrol at 60ml/ hr x 20hrs is only providing 1200kcal, pt recieves 2040kcal at [facility]. Expected Outcomes/Goals Expected Outcomes/Goals 1. Pt to meet at least 100% of estimated nutritional needs on tube feeding with tolerance .
--- NOTE | 2017-06-09 19:29 | General Progress Note ---
Subjective - Review of Systems Service Date: 06/09/17 Subjective: s/p tracheostomy Objective - Results Result Diagrams: 06/09/17 04:50 06/09/17 04:50 Recent Labs: Laboratory Last Values WBC 8.0 Th/cmm (4.8-10.8) 06/09/17 04:50 RBC 3.07 Mil/cmm (3.80-5.80) L 06/09/17 04:50 Hgb 8.6 gm/dL (12.6-17.4) L 06/09/17 04:50 Hct 25.8 % (39.0-49.0) L 06/09/17 04:50 MCV 84.0 fl (80-99) 06/09/17 04:50 MCH 28.1 pg (27.0-31.0) 06/09/17 04:50 MCHC Differential 33.4 pg (28.0-36.0) 06/09/17 04:50 RDW 16.5 % (11.5-20.0) 06/09/17 04:50 Plt Count 97 Th/cmm (150-400) L D 06/09/17 04:50 MPV 13.9 fl 06/09/17 04:50 Neutrophils % 70.4 % (40.0-80.0) 06/08/17 06:05 Band Neutrophils % 2 % (0-10) 06/09/17 04:50 Lymphocytes % 12.5 % (20.0-50.0) L 06/08/17 06:05 Monocytes % 14.9 % (2.0-10.0) H 06/08/17 06:05 Eosinophils % 1.4 % (0.0-5.0) 06/08/17 06:05 Basophils % 0.8 % (0.0-2.0) 06/08/17 06:05 Neutrophils (Manual) 68 % (40-80) 06/09/17 04:50 Lymphocytes 15 % (20-50) L 06/09/17 04:50 Monocytes 15 % (2-10) H 06/09/17 04:50 Eosinophils 1 % (0-5) 06/06/17 05:03 Basophils 0 % (0-3) 05/24/17 04:49 Metamyelocytes 1 % (0-0) H 06/06/17 05:03 Atypical Lymphocytes 2 % 06/06/17 05:03 Toxic Granulation 1+ 05/23/17 04:48 Platelet Estimate SLIGHT DECREASED (NORMAL) 06/09/17 04:50 Platelet Morphology GIANT PLATELETS SEEN (NORMAL) 06/06/17 05:03 Poikilocytosis 1+ 06/06/17 05:03 Anisocytosis 1+ 06/06/17 05:03 Target Cells 1+ 06/06/17 05:03 RBC Morph Micro Appear ABNORMAL (NORMAL) 06/06/17 05:03 Eos Smear Source URINE 05/14/17 18:00 Eos Smear Total Cells FEW EOSINOPHILS SEEN (NONE SEEN) 05/14/17 18:00 Plt Count 97 Th/cmm (150-750) L 06/09/17 04:50 PT 12.0 SECONDS (9.5-11.5) H 06/09/17 04:50 INR 1.14 (0.5-1.4) 06/09/17 04:50 PTT (Actin FS) 34.8 SECONDS (26.0-38.0) 06/09/17 04:50 Fibrinogen 269.0 mg/dL (200.0-400.0) 06/09/17 04:50 D-Dimer 1480 ng/mL (100-400) H 06/09/17 04:50 Specimen Source Arterial 06/07/17 09:29 Sample Site Left Radial 06/07/17 09:29 pH 7.48 (7.35-7.45) H 06/07/17 09:29 pCO2 42.0 mmHg (35.0-45.0) 06/07/17 09:29 pO2 71.0 mmHg (80.0-100.0) L 06/07/17 09:29 HCO3 30.4 mEq/L (20.0-26.0) H 06/07/17 09:29 Base Excess 7.1 mEq/L (-3.0-3.0) H 06/07/17 09:29 O2 Saturation 95.0 % (92.0-100.0) 06/07/17 09:29 Feliciano Test Positive 06/07/17 09:29 Vent Rate 4 06/07/17 09:29 Inspired O2 30 06/07/17 09:29 Tidal Volume 500 06/07/17 09:29 PEEP 0 06/06/17 08:45 Pressure (ins/psv/peep) 18 06/07/17 09:29 Critical Value PING 06/07/17 09:29 Sodium 134 mEq/L (136-145) L 06/09/17 04:50 Potassium 3.7 mEq/L (3.5-5.1) 06/09/17 04:50 Chloride 97 mEq/L (98-107) L 06/09/17 04:50 Carbon Dioxide 27.8 mEq/L (21.0-31.0) 06/09/17 04:50 Anion Gap 12.9 (7.0-16.0) 06/09/17 04:50 BUN 63 mg/dL (7-25) H 06/09/17 04:50 Creatinine 3.2 mg/dL (0.7-1.3) H 06/09/17 04:50 Est GFR ( Amer) TNP 06/09/17 04:50 Est GFR (Non-Af Amer) TNP 06/09/17 04:50 BUN/Creatinine Ratio 19.7 06/09/17 04:50 Glucose 187 mg/dL (70-105) H 06/09/17 04:50 POC Glucose 183 MG/DL (70 - 105) H 06/09/17 05:55 Hemoglobin A1c % 6.1 % (4.0-6.0) H 05/15/17 06:30 Plasma/Ser Osmolality 301 mOsmol/kg (280-301) 05/14/17 18:20 Whole Bld Lactic Acid 1.58 mmol/L (0.60-1.99) 05/13/17 17:42 Uric Acid 7.7 mg/dL (4.4-7.6) H 05/15/17 06:30 Calcium 8.8 mg/dL (8.6-10.3) 06/09/17 04:50 Phosphorus 2.7 mg/dL (2.5-5.0) 06/09/17 04:50 Magnesium 2.4 mg/dL (1.9-2.7) 06/09/17 04:50 Iron 70 ug/dL (38-169) 06/04/17 04:47 TIBC 94 ug/dL (250-450) L 06/04/17 04:47 Iron Saturation 74 % (15-55) H 06/04/17 04:47 Unsaturated IBC 24 ug/dL (111-343) L 06/04/17 04:47 Ferritin 351 ng/mL (30-400) 06/03/17 04:48 Total Bilirubin 9.4 mg/dL (0.3-1.0) H 06/09/17 04:50 Direct Bilirubin 3.83 mg/dL (0.0-0.2) H 06/07/17 04:40 AST 310 U/L (13-39) H 06/09/17 04:50 ALT 23 U/L (7-52) 06/09/17 04:50 Alkaline Phosphatase 2229 U/L (34-104) H 06/09/17 04:50 Ammonia 47 umol/L (16-53) 06/08/17 14:08 Creatine Kinase 35 U/L (30-223) 05/16/17 23:06 Troponin I 0.02 ng/mL (0.01-0.05) 05/16/17 23:06 B-Natriuretic Peptide 1480.0 pg/mL (5.0-100.0) H 06/05/17 04:42 Total Protein 5.4 gm/dL (6.0-8.3) L 06/09/17 04:50 Albumin 2.8 gm/dL (4.2-5.5) L 06/09/17 04:50 Globulin 2.6 gm/dL 06/09/17 04:50 Albumin/Globulin Ratio 1.1 (1.0-1.8) 06/09/17 04:50 Prealbumin 6 mg/dL (9-32) L 06/04/17 04:47 Triglycerides 60 mg/dL (<150) 06/04/17 04:47 Cholesterol 63 mg/dL (<200) 06/04/17 04:47 Vitamin B12 >1999 pg/mL (211-946) H 06/04/17 04:47 Folic Acid >20.0 ng/mL (>3.0) 06/04/17 04:47 TSH 2.74 uIU/ml (0.34-5.60) 05/15/17 06:30 Urine Source CATH 06/06/17 10:30 Urine Color YELLOW 06/06/17 10:30 Urine Clarity SL. CLOUDY (CLEAR) 06/06/17 10:30 Urine pH 5.0 (4.6 - 8.0) 06/06/17 10:30 Ur Specific [place] 1.025 (1.005-1.030) 06/06/17 10:30 Urine Protein 100 mg/dL (NEGATIVE) H 06/06/17 10:30 Urine Glucose (UA) NEGATIVE mg/dL (NEGATIVE) 06/06/17 10:30 Urine Ketones NEGATIVE mg/dL (NEGATIVE) 06/06/17 10:30 Urine Blood LARGE (NEGATIVE) H 06/06/17 10:30 Urine Nitrate NEGATIVE (NEGATIVE) 06/06/17 10:30 Urine Bilirubin SMALL (NEGATIVE) H 06/06/17 10:30 Urine Urobilinogen 0.2 E.U./dL (0.2 - 1.0) 06/06/17 10:30 Ur Leukocyte Esterase LARGE (NEGATIVE) H 06/06/17 10:30 Urine RBC 20-30 /hpf (0-5) 06/06/17 10:30 Urine WBC 10-25 /hpf (0-5) H 06/06/17 10:30 Ur Epithelial Cells RARE /lpf (FEW) 06/06/17 10:30 Urine Bacteria f /hpf (NONE SEEN) 06/06/17 10:30 Urine Yeast MODERATE /hpf (NONE SEEN) H 06/06/17 10:30 Ur Random Sodium 30 mmol/L 05/14/17 18:00 Urine Creatinine 36.4 mg/dl (Not Estab.) 05/14/17 18:00 Urine Microalbumin 363.5 ug/mL (Not Estab.) 05/14/17 18:00 Microalb/Creat Ratio 998.6 mg/g creat (0.0-30.0) H 05/14/17 18:00 Stool Occult Blood NEGATIVE (NEGATIVE) 05/25/17 17:49 Random Vancomycin 19.1 ug/mL (5.0-40.0) 05/19/17 04:50 Acetaminophen < 10.0 ug/mL (10.0-30.0) L 06/07/17 04:40 Hepatitis A IgM Ab Negative (Negative) 05/21/17 04:46 Hep Bs Antigen Negative (Negative) 05/21/17 04:46 Hep B Core IgM Ab Negative (Negative) 05/21/17 04:46 Hepatitis C Antibody 0.1 s/co ratio (0.0-0.9) 05/21/17 04:46 Blood Type B POSITIVE 06/04/17 04:47 Antibody Screen NEGATIVE 06/04/17 04:47 Crossmatch See Detail 05/21/17 10:19 - Physical Exam Vitals and I&O: Vital Signs Temp 100.1 F 06/09/17 19:00 Pulse 112 06/09/17 19:03 Resp 13 06/09/17 19:00 BP 121/53 06/09/17 19:00 Pulse Ox 100 06/09/17 19:03 Intake & Output 06/09/17 06/09/17 06/10/17 06:59 18:59 06:59 Intake Total 500 799 Output Total 50 1275 Balance 450 -476 Weight (lbs) 64.92 kg 68.674 kg Intake: Intake, IV Amount 100 50 Piperacillin Sodium/ 100 50 Tazobact 2.25 gm In Sodium Chloride 0.9% 50 ml @ 100 mls/hr IV Q6HR FORMERLY [facility], [facility]–1983 Rx#:[id number] Oral 0 Tube Feeding 300 249 Albumin 200 Other 100 300 Output: Urine 50 75 Hemodialysis 1200 Other: # Bowel Movements 0 Active Medications: Current Medications Acetaminophen (Tylenol) 650 mg PO Q4HR PRN PRN Reason: Pain Or Fever above 101 Stop: 07/14/17 15:15 Last Admin: 06/09/17 18:51 Dose: 650 mg Albuterol/Ipratropium (Duoneb Neb) 3 ml HHN Q4HRT [facility], [facility]–1983 Stop: 07/19/17 14:59 Last Admin: 06/09/17 19:00 Dose: 3 ml Budesonide (Pulmicort) 1 mg HHN BIDRT [facility], [facility]–1983 Stop: 07/19/17 18:59 Last Admin: 06/09/17 18:59 Dose: 1 mg Calamine/Phenol (Calmoseptine) 1 appl TP QID PRN PRN Reason: Skin Irritation Stop: 08/03/17 12:28 Last Admin: 06/07/17 21:00 Dose: 1 appl Calamine/Phenol (Calmoseptine) 1 appl TP QID [facility], [facility]1983 Stop: 08/03/17 12:59 Last Admin: 06/09/17 18:32 Dose: 1 appl Carbidopa/Levodopa (Sinemet 25mg-100 Mg) 1 tab PO TID [facility], [facility]1983 Stop: 07/14/17 08:59 Last Admin: 06/09/17 14:20 Dose: 1 tab Chlorhexidine Gluconate (Peridex) 15 ml MM 0800,2000 YESSICA Stop: 07/23/17 19:59 Last Admin: 06/09/17 11:13 Dose: 15 ml Clonidine HCl (Catapres) 0.1 mg PO Q6HR PRN PRN Reason: BP MAINTENANCE (PER PROTOCOL) Stop: 07/28/17 13:31 Last Admin: 05/29/17 21:04 Dose: 0.1 mg Dextrose (D50w) 50 ml IVP PRN PRN; Protocol PRN Reason: HYPOGLYCEMIA Stop: 07/20/17 00:54 Last Admin: 05/22/17 23:34 Dose: 50 ml Diltiazem HCl (Cardizem) 10 mg IVP Q6HR PRN PRN Reason: HR >130 Stop: 07/22/17 17:09 Last Admin: 05/24/17 04:21 Dose: 10 mg Hydralazine HCl (Apresoline 20 Mg/Ml) 10 mg IV Q6HR PRN PRN Reason: BP MAINTENANCE (PER PROTOCOL) Stop: 07/30/17 13:09 Last Admin: 06/06/17 12:30 Dose: 10 mg Norepinephrine Bitartrate 8 mg (/ Dextrose) 258 mls @ 0 mls/hr IV TITR PRN; Protocol; Titrate PRN Reason: BP MAINTENANCE (PER PROTOCOL) Stop: 07/19/17 12:29 Last Admin: 05/21/17 01:06 Dose: 10 mcg/min, 19.35 mls/hr Phenylephrine HCl 10 mg/ (Sodium Chloride) 250 mls @ 0 mls/hr IV TITR YESSICA; Per Protocol PRN Reason: Protocol Stop: 07/19/17 12:59 Piperacillin Sod/Tazobactam (Sod 2.25 gm/ Sodium Chloride) 50 mls @ 100 mls/hr IV Q6HR YESSICA Stop: 08/05/17 11:59 Last Admin: 06/09/17 17:20 Dose: 100 mls/hr Norepinephrine Bitartrate 4 mg (/ Dextrose) 254 mls @ 0 mls/hr IV TITR PRN; Protocol; Per Protocol PRN Reason: BP MAINTENANCE (PER PROTOCOL) Stop: 08/07/17 10:48 Insulin Aspart (Novolog Insulin Sliding Scale) 0 units SUBQ Q6HR [facility], [facility]1983 PRN Reason: Protocol Stop: 07/14/17 00:00 Last Admin: 06/09/17 18:32 Dose: 3 units Isosorbide Dinitrate (Isordil) 20 mg GT TID [facility], [facility]1983 Stop: 07/28/17 13:33 Last Admin: 06/09/17 14:20 Dose: 20 mg Lactobacillus Rhamnosus (Culturelle) 1 each PO DAILY [facility], [facility]–1983 Stop: 07/17/17 08:59 Last Admin: 06/09/17 08:30 Dose: Not Given Metoclopramide HCl (Reglan) 5 mg IVP TID [facility], [facility]1983 Stop: 07/20/17 20:59 Last Admin: 06/09/17 14:22 Dose: 5 mg Metoprolol Tartrate (Lopressor) 50 mg GT Q8H [facility], [facility]1983 Stop: 07/18/17 08:59 Last Admin: 06/09/17 17:02 Dose: Not Given Miscellaneous (Vte Chemical Prophylaxis Screen/ Admission) 1 ea MC PRN PRN PRN Reason: PROTOCOL Stop: 07/14/17 09:25 Miscellaneous (Clinical Monitoring) 1 ea MC DAILY PRN PRN Reason: RENAL Stop: 07/15/17 12:32 Miscellaneous (Probiotic Screen) 1 ea MC PRN PRN PRN Reason: PROTOCOL Stop: 07/16/17 09:33 Morphine Sulfate (Morphine) 1 mg IVP Q4HR PRN PRN Reason: Pain (Moderate) Stop: 08/06/17 15:02 Last Admin: 06/09/17 04:08 Dose: 1 mg Pantoprazole Sodium (Protonix) 40 mg GT DAILY [facility], [facility]1983 Stop: 07/14/17 08:59 Last Admin: 06/09/17 11:05 Dose: 40 mg Physical Exam: intubated getting HD No bleeding General: Alert, No acute distress HEENT: Atraumatic, EOMI Neck: Supple, +2 carotid pulse wo bruit, Other (trach) Cardiovascular: Regular rate Lungs: Other (rhonchi bilaterally) Abdomen: Soft, no Tender Extremities: no Edema (no edema) Neurological: Sensation intact, Other (opens eyes upon verbal command) Skin: Rash Psych/Mental Status: Mood NL - Procedures Procedures: Procedures Procedure Code Date BYPASS TRACHEA TO CUTANEOUS WITH TRACH DEV, OPEN APPROACH [id number] 05/13/17 INCISION OF WINDPIPE [id number] 05/13/17 INSERT EMERGENCY AIRWAY 19578 05/13/17 INSERT TUNNELED CV CATH [id number] 05/13/17 INSERTION OF ENDOTRACHEAL AIRWAY INTO TRACHEA, VIA OPENING [id number] 05/13/17 INSERTION OF INFUSION DEV INTO R FEMOR VEIN, PERC APPROACH [id number] 05/13/17 RESPIRATORY VENTILATION, GREATER THAN 96 CONSECUTIVE HOURS [id number] 05/13/17 VENT MGMT INPAT IN DAY 15078 05/13/17 Assessment/Plan - Problem List Patient Problems: All Active Problems COUGH AND CONGESTION (Acute) Congestive heart failure (CHF) (Acute) I50.9 congestive heart failure (Acute) hypertension uncontrolled with bradycarda (Acute) renal failure (Acute) - Assessment Assessment: * DIC * RESPIRATORY FAILURE *ESRD *UNLIKELY HIT MONITOR DIC PANEL Nutritional Asmnt/Malnutr-PDOC - Dietary Evaluation Malnutrition Findings (Please click <Entered> for more info): Nutritional Asmnt/Malnutrition Start: 05/15/17 13: 56 Text: Status: Complete Freq: Document 05/15/17 13:56 GSUN (Rec: 05/15/17 14:18 GSUN [id number]) Nutritional Asmnt/Malnutrition Patient General Information Nutritional Screening High Risk Screening Diagnosis PNA, NICK, icnreasing renal failure, CVA, CHF, DM Pertinent Medical Hx/Surgical Hx CVA, dementia, afib, CAD, HTN, dyslipidemia, epilepsy, GERD, aspiration PNA, DM, CKD, dehydration, C. diff, anemia D Subjective Information 86 year old male from SNF. Pt greeted RD. Pt is overall thin , moderate to severe wasting to chest, clavicles, extremities. Observed Glytrol running at 60ml/hr x20hrs during visit. Unable to obtain CBW due to bedscale not calibrated. Discussed with YVETTE Farooq regarding tube feeding recommendations. Current Diet Order/ Nutrition Support Glytrol at 60ml/hr x 20hrs, providing 1200kcal 54g protein Pertinent Medications Lipitor, Novolog, Levemir, Cephulac, Morphine, Protonix, Nacl 0.9% Pertinent Labs 05/13: potassium 5.3H, BUN 80H, creatinine 2.4H, glucose 103 05/15: potassium WNL, BUN 70H, creatinine 2.4H, glucose 239H, A1c 6.1H, phosphorus 5.4H Nutritional Hx/Data Height 1.68 m Height (Calculated Centimeters) 167.6 Current Weight (lbs) 65.771 kg Weight (Calculated Kilograms) 65.8 Weight (Calculated Grams) 22415.9 [place] Body Weight 142 Weight Status Approriate GI Symptoms Difficult in: Swallowing Cultural/Ethnic/[employer] Belief [facility]: Glucerna 1.2 at 85ml/hr x 20hrs, providing 2040kcal, promote weight gain. Skin Integrity/Comment: Gee 12. Skin intact. Estimated Nutritional Goals Calories/Kcals/Kg CBW 145lb/65.9kg Kcals Calculated 1976-2306kcal (30-35kcal/kg) Protein Calculated 46-92g (0.7-1.4g/kg, renal vs moderate to severe wasting) Fluid: ml Per MD (renal) Nutritional Problem 2. Problem Problem Impaired nutrient utilization related to Etiology NICK, hx CKD aeb Signs/Symptoms: "increasing renal failure," potaasum 5.3H on adm, BUN 70H, force variation equipment tender 2.4H, phosphorus 5.4H 1. Problem Problem Inadequate intake from enteral nutrition infusion related to Etiology estimated nutritional needs aeb Signs/Symptoms: providing to meet 61% lower end kcal needs Intervention/Recommendation Comments 1. Recommend Novasource Renal at 50ml/hr x 20hrs, providing 2000kcal and 91g protein. Current order Glytrol at 60ml/ hr x 20hrs is only providing 1200kcal, pt recieves 2040kcal at [facility]. Expected Outcomes/Goals Expected Outcomes/Goals 1. Pt to meet at least 100% of estimated nutritional needs on tube feeding with tolerance .
[2017-06-09 19:58] LABS: MEAN CELL VOLUME 83.9 fl (80-99); MEAN CORPUSCULAR HEMOGLOBIN 28.3 pg (27.0-31.0); MEAN CORPUSCULAR HGB CONC 33.8 pg (28.0-36.0); MEAN PLATELET VOLUME 12.7 fl; NEUTROPHILE ABSOLUTE 5.3 Th/cmm (1.8-8.0); PLATELET COUNT 106 Th/cmm (150-400); RED BLOOD COUNT 2.79 Mil/cmm (3.80-5.80); WHITE BLOOD COUNT 7.7 Th/cmm (4.8-10.8)
[2017-06-09 20:06] LABS: HEMATOCRIT 23.4 % (39.0-49.0); HEMOGLOBIN 7.9 gm/dL (12.6-17.4)
[2017-06-09 20:48] LABS: ANISOCYTOSIS 1+; EOSINOPHIL 4 % (0-5); NEUTROPHILS 74 % (40-80); POIKILOCYTOSIS 1+; TARGET CELLS 1+; TOTAL CELLS COUNTED 100
[2017-06-09 20:49] LABS: PLATELET ESTIMATE DECREASED PLATELETS (NORMAL); PLATELET MORPHOLOGY GIANT PLATELETS SEEN (NORMAL)
--- NOTE | 2017-06-09 23:51 | Infectious Disease Prog Note ---
Infectious Disease Subjective - Review of Systems Service Date: 06/09/17 Subjective: No new change. developed fever today. intubated orally, on vent support. Infectious Disease Objective - Results Result Diagrams: 06/09/17 19:53 06/09/17 04:50 Recent Labs: Laboratory Last Values WBC 7.7 Th/cmm (4.8-10.8) 06/09/17 19:53 RBC 2.79 Mil/cmm (3.80-5.80) L 06/09/17 19:53 Hgb 7.9 gm/dL (12.6-17.4) L* 06/09/17 19:53 Hct 23.4 % (39.0-49.0) L* 06/09/17 19:53 MCV 83.9 fl (80-99) 06/09/17 19:53 MCH 28.3 pg (27.0-31.0) 06/09/17 19:53 MCHC Differential 33.8 pg (28.0-36.0) 06/09/17 19:53 RDW 16.0 % (11.5-20.0) 06/09/17 19:53 Plt Count 106 Th/cmm (150-400) L 06/09/17 19:53 MPV 12.7 fl 06/09/17 19:53 Neutrophils % 70.4 % (40.0-80.0) 06/08/17 06:05 Band Neutrophils % 2 % (0-10) 06/09/17 04:50 Lymphocytes % 12.5 % (20.0-50.0) L 06/08/17 06:05 Monocytes % 14.9 % (2.0-10.0) H 06/08/17 06:05 Eosinophils % 1.4 % (0.0-5.0) 06/08/17 06:05 Basophils % 0.8 % (0.0-2.0) 06/08/17 06:05 Neutrophils (Manual) 74 % (40-80) 06/09/17 19:53 Lymphocytes 15 % (20-50) L 06/09/17 19:53 Monocytes 7 % (2-10) 06/09/17 19:53 Eosinophils 4 % (0-5) 06/09/17 19:53 Basophils 0 % (0-3) 05/24/17 04:49 Metamyelocytes 1 % (0-0) H 06/06/17 05:03 Atypical Lymphocytes 2 % 06/06/17 05:03 Toxic Granulation 1+ 05/23/17 04:48 Platelet Estimate DECREASED PLATELETS (NORMAL) 06/09/17 19:53 Platelet Morphology GIANT PLATELETS SEEN (NORMAL) 06/09/17 19:53 Poikilocytosis 1+ 06/09/17 19:53 Anisocytosis 1+ 06/09/17 19:53 Target Cells 1+ 06/09/17 19:53 RBC Morph Micro Appear ABNORMAL (NORMAL) 06/09/17 19:53 Eos Smear Source URINE 05/14/17 18:00 Eos Smear Total Cells FEW EOSINOPHILS SEEN (NONE SEEN) 05/14/17 18:00 Plt Count 97 Th/cmm (150-750) L 06/09/17 04:50 PT 12.0 SECONDS (9.5-11.5) H 06/09/17 04:50 INR 1.14 (0.5-1.4) 06/09/17 04:50 PTT (Actin FS) 34.8 SECONDS (26.0-38.0) 06/09/17 04:50 Fibrinogen 269.0 mg/dL (200.0-400.0) 06/09/17 04:50 D-Dimer 1480 ng/mL (100-400) H 06/09/17 04:50 Specimen Source Arterial 06/07/17 09:29 Sample Site Left Radial 06/07/17 09:29 pH 7.48 (7.35-7.45) H 06/07/17 09:29 pCO2 42.0 mmHg (35.0-45.0) 06/07/17 09:29 pO2 71.0 mmHg (80.0-100.0) L 06/07/17 09:29 HCO3 30.4 mEq/L (20.0-26.0) H 06/07/17 09:29 Base Excess 7.1 mEq/L (-3.0-3.0) H 06/07/17 09:29 O2 Saturation 95.0 % (92.0-100.0) 06/07/17 09:29 Feliciano Test Positive 06/07/17 09:29 Vent Rate 4 06/07/17 09:29 Inspired O2 30 06/07/17 09:29 Tidal Volume 500 06/07/17 09:29 PEEP 0 06/06/17 08:45 Pressure (ins/psv/peep) 18 06/07/17 09:29 Critical Value PING 06/07/17 09:29 Sodium 134 mEq/L (136-145) L 06/09/17 04:50 Potassium 3.7 mEq/L (3.5-5.1) 06/09/17 04:50 Chloride 97 mEq/L (98-107) L 06/09/17 04:50 Carbon Dioxide 27.8 mEq/L (21.0-31.0) 06/09/17 04:50 Anion Gap 12.9 (7.0-16.0) 06/09/17 04:50 BUN 63 mg/dL (7-25) H 06/09/17 04:50 Creatinine 3.2 mg/dL (0.7-1.3) H 06/09/17 04:50 Est GFR ( Amer) TNP 06/09/17 04:50 Est GFR (Non-Af Amer) TNP 06/09/17 04:50 BUN/Creatinine Ratio 19.7 06/09/17 04:50 Glucose 187 mg/dL (70-105) H 06/09/17 04:50 POC Glucose 183 MG/DL (70 - 105) H 06/09/17 05:55 Hemoglobin A1c % 6.1 % (4.0-6.0) H 05/15/17 06:30 Plasma/Ser Osmolality 301 mOsmol/kg (280-301) 05/14/17 18:20 Whole Bld Lactic Acid 1.58 mmol/L (0.60-1.99) 05/13/17 17:42 Uric Acid 7.7 mg/dL (4.4-7.6) H 05/15/17 06:30 Calcium 8.8 mg/dL (8.6-10.3) 06/09/17 04:50 Phosphorus 2.7 mg/dL (2.5-5.0) 06/09/17 04:50 Magnesium 2.4 mg/dL (1.9-2.7) 06/09/17 04:50 Iron 70 ug/dL (38-169) 06/04/17 04:47 TIBC 94 ug/dL (250-450) L 06/04/17 04:47 Iron Saturation 74 % (15-55) H 06/04/17 04:47 Unsaturated IBC 24 ug/dL (111-343) L 06/04/17 04:47 Ferritin 351 ng/mL (30-400) 06/03/17 04:48 Total Bilirubin 9.4 mg/dL (0.3-1.0) H 06/09/17 04:50 Direct Bilirubin 3.83 mg/dL (0.0-0.2) H 06/07/17 04:40 AST 310 U/L (13-39) H 06/09/17 04:50 ALT 23 U/L (7-52) 06/09/17 04:50 Alkaline Phosphatase 2229 U/L (34-104) H 06/09/17 04:50 Ammonia 47 umol/L (16-53) 06/08/17 14:08 Creatine Kinase 35 U/L (30-223) 05/16/17 23:06 Troponin I 0.02 ng/mL (0.01-0.05) 05/16/17 23:06 B-Natriuretic Peptide 1480.0 pg/mL (5.0-100.0) H 06/05/17 04:42 Total Protein 5.4 gm/dL (6.0-8.3) L 06/09/17 04:50 Albumin 2.8 gm/dL (4.2-5.5) L 06/09/17 04:50 Globulin 2.6 gm/dL 06/09/17 04:50 Albumin/Globulin Ratio 1.1 (1.0-1.8) 06/09/17 04:50 Prealbumin 6 mg/dL (9-32) L 06/04/17 04:47 Triglycerides 60 mg/dL (<150) 06/04/17 04:47 Cholesterol 63 mg/dL (<200) 06/04/17 04:47 Vitamin B12 >1999 pg/mL (211-946) H 06/04/17 04:47 Folic Acid >20.0 ng/mL (>3.0) 06/04/17 04:47 TSH 2.74 uIU/ml (0.34-5.60) 05/15/17 06:30 Urine Source CATH 06/06/17 10:30 Urine Color YELLOW 06/06/17 10:30 Urine Clarity SL. CLOUDY (CLEAR) 06/06/17 10:30 Urine pH 5.0 (4.6 - 8.0) 06/06/17 10:30 Ur Specific [place] 1.025 (1.005-1.030) 06/06/17 10:30 Urine Protein 100 mg/dL (NEGATIVE) H 06/06/17 10:30 Urine Glucose (UA) NEGATIVE mg/dL (NEGATIVE) 06/06/17 10:30 Urine Ketones NEGATIVE mg/dL (NEGATIVE) 06/06/17 10:30 Urine Blood LARGE (NEGATIVE) H 06/06/17 10:30 Urine Nitrate NEGATIVE (NEGATIVE) 06/06/17 10:30 Urine Bilirubin SMALL (NEGATIVE) H 06/06/17 10:30 Urine Urobilinogen 0.2 E.U./dL (0.2 - 1.0) 06/06/17 10:30 Ur Leukocyte Esterase LARGE (NEGATIVE) H 06/06/17 10:30 Urine RBC 20-30 /hpf (0-5) 06/06/17 10:30 Urine WBC 10-25 /hpf (0-5) H 06/06/17 10:30 Ur Epithelial Cells RARE /lpf (FEW) 06/06/17 10:30 Urine Bacteria f /hpf (NONE SEEN) 06/06/17 10:30 Urine Yeast MODERATE /hpf (NONE SEEN) H 06/06/17 10:30 Ur Random Sodium 30 mmol/L 05/14/17 18:00 Urine Creatinine 36.4 mg/dl (Not Estab.) 05/14/17 18:00 Urine Microalbumin 363.5 ug/mL (Not Estab.) 05/14/17 18:00 Microalb/Creat Ratio 998.6 mg/g creat (0.0-30.0) H 05/14/17 18:00 Stool Occult Blood NEGATIVE (NEGATIVE) 05/25/17 17:49 Random Vancomycin 19.1 ug/mL (5.0-40.0) 05/19/17 04:50 Acetaminophen < 10.0 ug/mL (10.0-30.0) L 06/07/17 04:40 Hepatitis A IgM Ab Negative (Negative) 05/21/17 04:46 Hep Bs Antigen Negative (Negative) 05/21/17 04:46 Hep B Core IgM Ab Negative (Negative) 05/21/17 04:46 Hepatitis C Antibody 0.1 s/co ratio (0.0-0.9) 05/21/17 04:46 Blood Type B POSITIVE 06/04/17 04:47 Antibody Screen NEGATIVE 06/04/17 04:47 Crossmatch See Detail 05/21/17 10:19 - Physical Exam Vitals and I&O: Vital Signs Temp 99.1 F 06/09/17 20:00 Pulse 104 06/09/17 23:17 Resp 14 06/09/17 23:00 BP 113/62 06/09/17 23:00 Pulse Ox 100 06/09/17 23:17 Intake & Output 06/09/17 06/09/17 06/10/17 06:59 18:59 06:59 Intake Total 500 799 50 Output Total 50 1275 Balance 450 -476 50 Weight (lbs) 64.92 kg 68.674 kg Intake: Intake, IV Amount 100 50 50 Piperacillin Sodium/ 100 50 50 Tazobact 2.25 gm In Sodium Chloride 0.9% 50 ml @ 100 mls/hr IV Q6HR [facility] Rx#:[id number] Oral 0 Tube Feeding 300 249 Albumin 200 Other 100 300 Output: Urine 50 75 Hemodialysis 1200 Other: # Bowel Movements 0 Active Medications: Current Medications Acetaminophen (Tylenol) 650 mg PO Q4HR PRN PRN Reason: Pain Or Fever above 101 Stop: 07/14/17 15:15 Last Admin: 06/09/17 18:51 Dose: 650 mg Albuterol/Ipratropium (Duoneb Neb) 3 ml HHN Q4HRT [facility] Stop: 07/19/17 14:59 Last Admin: 06/09/17 22:51 Dose: 3 ml Budesonide (Pulmicort) 1 mg HHN BIDRT [facility] Stop: 07/19/17 18:59 Last Admin: 06/09/17 18:59 Dose: 1 mg Calamine/Phenol (Calmoseptine) 1 appl TP QID PRN PRN Reason: Skin Irritation Stop: 08/03/17 12:28 Last Admin: 06/07/17 21:00 Dose: 1 appl Calamine/Phenol (Calmoseptine) 1 appl TP QID [facility] Stop: 08/03/17 12:59 Last Admin: 06/09/17 20:47 Dose: 1 appl Carbidopa/Levodopa (Sinemet 25mg-100 Mg) 1 tab PO TID YESSICA Stop: 07/14/17 08:59 Last Admin: 06/09/17 20:48 Dose: 1 tab Chlorhexidine Gluconate (Peridex) 15 ml MM 0800,2000 YESSICA Stop: 07/23/17 19:59 Last Admin: 06/09/17 19:34 Dose: 15 ml Clonidine HCl (Catapres) 0.1 mg PO Q6HR PRN PRN Reason: BP MAINTENANCE (PER PROTOCOL) Stop: 07/28/17 13:31 Last Admin: 05/29/17 21:04 Dose: 0.1 mg Dextrose (D50w) 50 ml IVP PRN PRN; Protocol PRN Reason: HYPOGLYCEMIA Stop: 07/20/17 00:54 Last Admin: 05/22/17 23:34 Dose: 50 ml Diltiazem HCl (Cardizem) 10 mg IVP Q6HR PRN PRN Reason: HR >130 Stop: 07/22/17 17:09 Last Admin: 05/24/17 04:21 Dose: 10 mg Hydralazine HCl (Apresoline 20 Mg/Ml) 10 mg IV Q6HR PRN PRN Reason: BP MAINTENANCE (PER PROTOCOL) Stop: 07/30/17 13:09 Last Admin: 06/06/17 12:30 Dose: 10 mg Norepinephrine Bitartrate 8 mg (/ Dextrose) 258 mls @ 0 mls/hr IV TITR PRN; Protocol; Titrate PRN Reason: BP MAINTENANCE (PER PROTOCOL) Stop: 07/19/17 12:29 Last Admin: 05/21/17 01:06 Dose: 10 mcg/min, 19.35 mls/hr Phenylephrine HCl 10 mg/ (Sodium Chloride) 250 mls @ 0 mls/hr IV TITR YESSICA; Per Protocol PRN Reason: Protocol Stop: 07/19/17 12:59 Piperacillin Sod/Tazobactam (Sod 2.25 gm/ Sodium Chloride) 50 mls @ 100 mls/hr IV Q6HR YESSICA Stop: 08/05/17 11:59 Last Infusion: 06/09/17 19:00 Dose: Infused Norepinephrine Bitartrate 4 mg (/ Dextrose) 254 mls @ 0 mls/hr IV TITR PRN; Protocol; Per Protocol PRN Reason: BP MAINTENANCE (PER PROTOCOL) Stop: 08/07/17 10:48 Insulin Aspart (Novolog Insulin Sliding Scale) 0 units SUBQ Q6HR [facility] PRN Reason: Protocol Stop: 07/14/17 00:00 Last Admin: 06/09/17 18:32 Dose: 3 units Isosorbide Dinitrate (Isordil) 20 mg GT TID [facility] Stop: 07/28/17 13:33 Last Admin: 06/09/17 20:47 Dose: 20 mg Lactobacillus Rhamnosus (Culturelle) 1 each PO DAILY [facility] Stop: 07/17/17 08:59 Last Admin: 06/09/17 08:30 Dose: Not Given Metoclopramide HCl (Reglan) 5 mg IVP TID [facility] Stop: 07/20/17 20:59 Last Admin: 06/09/17 20:47 Dose: 5 mg Metoprolol Tartrate (Lopressor) 50 mg GT Q8H [facility] Stop: 07/18/17 08:59 Last Admin: 06/09/17 17:02 Dose: Not Given Miscellaneous (Vte Chemical Prophylaxis Screen/ Admission) 1 ea PRN PRN PRN Reason: PROTOCOL Stop: 07/14/17 09:25 Miscellaneous (Clinical Monitoring) 1 ea MC DAILY PRN PRN Reason: RENAL Stop: 07/15/17 12:32 Miscellaneous (Probiotic Screen) 1 ea PRN PRN PRN Reason: PROTOCOL Stop: 07/16/17 09:33 Morphine Sulfate (Morphine) 1 mg IVP Q4HR PRN PRN Reason: Pain (Moderate) Stop: 08/06/17 15:02 Last Admin: 06/09/17 04:08 Dose: 1 mg Pantoprazole Sodium (Protonix) 40 mg GT DAILY [facility] Stop: 07/14/17 08:59 Last Admin: 06/09/17 11:05 Dose: 40 mg - Procedures Procedures: Procedures Procedure Code Date BYPASS TRACHEA TO CUTANEOUS WITH TRACH DEV, OPEN APPROACH [id number] 05/13/17 INCISION OF WINDPIPE 78503 05/13/17 INSERT EMERGENCY AIRWAY 53535 05/13/17 INSERT TUNNELED CV CATH 01306 05/13/17 INSERTION OF ENDOTRACHEAL AIRWAY INTO TRACHEA, VIA OPENING [id number] 05/13/17 INSERTION OF INFUSION DEV INTO R FEMOR VEIN, PERC APPROACH [id number] 07/11/17 RESPIRATORY VENTILATION, GREATER THAN 96 CONSECUTIVE HOURS [id number] 05/13/17 VENT MGMT INPAT INIT 21348 05/13/17 Infectious Disease Assmt/Plan - Problem List Patient Problems: All Active Problems COUGH AND CONGESTION (Acute) Congestive heart failure (CHF) (Acute) I50.9 congestive heart failure (Acute) hypertension uncontrolled with bradycarda (Acute) renal failure (Acute) - Assessment Assessment: 1. Pneuimonia.? Aspiration. 2. NICK. 3. CVA. 4. CHF. 5. CKD4. NICK mild rise in creatinine. 6. Afib with rapid ventricular response. 7. candiduria. 8. Fever. 9. Hyperbilirubinemia. Plan: Continue colistin nebulizer. Diflucan on hold because of increased bilirubin and elevated liver enzymes. Continue zosyn. Nutritional Asmnt/Malnutr-PDOC - Dietary Evaluation Malnutrition Findings (Please click <Entered> for more info): Nutritional Asmnt/Malnutrition Start: 05/15/17 13: 56 Text: Status: Complete Freq: Document 05/15/17 13:56 GSUN (Rec: 05/15/17 14:18 GSUN [email or web address]) Nutritional Asmnt/Malnutrition Patient General Information Nutritional Screening High Risk Screening Diagnosis PNA, NICK, icnreasing renal failure, CVA, CHF, DM Pertinent Medical Hx/Surgical Hx CVA, dementia, afib, CAD, HTN, dyslipidemia, epilepsy, GERD, aspiration PNA, DM, CKD, dehydration, C. diff, anemia D Subjective Information 86 year old male from SNF. Pt greeted RD. Pt is overall thin , moderate to severe wasting to chest, clavicles, extremities. Observed Glytrol running at 60ml/hr x20hrs during visit. Unable to obtain CBW due to bedscale not calibrated. Discussed with YVETTE Farooq regarding tube feeding recommendations. Current Diet Order/ Nutrition Support Glytrol at 60ml/hr x 20hrs, providing 1200kcal 54g protein Pertinent Medications Lipitor, Novolog, Levemir, Cephulac, Morphine, Protonix, Nacl 0.9% Pertinent Labs 05/13: potassium 5.3H, BUN 80H, creatinine 2.4H, glucose 103 05/15: potassium WNL, BUN 70H, creatinine 2.4H, glucose 239H, A1c 6.1H, phosphorus 5.4H Nutritional Hx/Data Height 1.68 m Height (Calculated Centimeters) 167.6 Current Weight (lbs) 65.771 kg Weight (Calculated Kilograms) 65.8 Weight (Calculated Grams) 96940.9 [place] Body Weight 142 Weight Status Approriate GI Symptoms Difficult in: Swallowing Cultural/Ethnic/[employer]az[employer] Belief [facility]: Glucerna 1.2 at 85ml/hr x 20hrs, providing 2040kcal, promote weight gain. Skin Integrity/Comment: Gee 12. Skin intact. Estimated Nutritional Goals Calories/Kcals/Kg CBW 145lb/65.9kg Kcals Calculated 1976-2306kcal (30-35kcal/kg) Protein Calculated 46-92g (0.7-1.4g/kg, renal vs moderate to severe wasting) Fluid: ml Per MD (renal) Nutritional Problem 2. 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 Problem Problem Inadequate intake from enteral nutrition infusion related to Etiology estimated nutritional needs aeb Signs/Symptoms: providing to meet 61% lower end kcal needs Intervention/Recommendation Comments 1. Recommend Novasource Renal at 50ml/hr x 20hrs, providing 2000kcal and 91g protein. Current order Glytrol at 60ml/ hr x 20hrs is only providing 1200kcal, pt recieves 2040kcal at [facility]. Expected Outcomes/Goals Expected Outcomes/Goals 1. Pt to meet at least 100% of estimated nutritional needs on tube feeding with tolerance .
[2017-06-10] MEDS: Morphine Sulfate 2 mg/mL 1mL Syr IVP PRN (00:18)
--- NOTE | 2017-06-10 00:27 | Progress Notes ---
DATE: 06/09/2017 PROBLEM LIST: 1. Persistent respiratory failure. 2. Multidrug-resistant organism. 3. Congestive heart failure. 4. . 5. Recurrent altered state of mind. SYMPTOMS: Nil. The patient appears to be sedated, closing her eyes. No respiratory distress, had a trach done this morning, currently on dialysis. PHYSICAL EXAMINATION: VITAL SIGNS: The patient's recorded vital signs; temperature is 97.2, pulse is in 100, blood pressure is 95/49, saturation is in 90s on 40% of oxygen on a vent. NECK: Veins not visualized. CHEST: Shows diminished air entry with occasional rhonchi. HEART: Regular. ABDOMEN: Soft, nontender. LABORATORY DATA: The patient's white count is 8000, platelet is 97. Electrolytes are okay with BUN 63 and creatinine 3.1 with elevation of alkaline phosphatase. ASSESSMENT: The patient clinically status quo, not too much change, with persistent respiratory failure, congestive heart failure, atrial fibrillation, with bilateral pneumonia with effusion. PLANS AND SUGGESTIONS: We will go ahead and continue current or repeat post-trach chest x-ray, etc. and also check the blood gases before transfer can be made hopefully tomorrow and go from there. JOB# [id number]
[2017-06-10] MEDS: Albuterol/Ipratropium Neb 3 ML AERS HHN SCH ×6 (02:10→22:41)
[2017-06-10] MEDS: Piperacillin/Tazobact 2.25 gm in 0.9% NS 50 ML IV SCH ×3 (05:45→20:13)
[2017-06-10 05:47] LABS: INR 1.21 (0.5-1.4); PROTHROMBIN TIME (TEST) 12.7 SECONDS (9.5-11.5)
[2017-06-10 05:53] LABS: ALB/GLOB RATIO 1.5 (1.0-1.8); ALKALINE PHOSPHATASE 1942 U/L (34-104); ANION GAP 11.6 (7.0-16.0); BILIRUBIN,TOTAL 11.5 mg/dL (0.3-1.0); BUN - UREA NITROGEN 42 mg/dL (7-25); BUN/CREATININE RATIO 16.2; CHLORIDE 101 mEq/L (98-107); CREATININE - SERUM 2.6 mg/dL (0.7-1.3); POTASSIUM SERUM 3.6 mEq/L (3.5-5.1); SGOT 344 U/L (13-39); SGPT/ALT 38 U/L (7-52); SODIUM SERUM 137 mEq/L (136-145)
[2017-06-10 05:57] LABS: HEMATOCRIT 25.1 % (39.0-49.0); HEMOGLOBIN 8.5 gm/dL (12.6-17.4); MEAN CELL VOLUME 84.3 fl (80-99); MEAN CORPUSCULAR HEMOGLOBIN 28.6 pg (27.0-31.0); MEAN CORPUSCULAR HGB CONC 33.9 pg (28.0-36.0); MEAN PLATELET VOLUME 13.8 fl; PLATELET COUNT 125 Th/cmm (150-400); RED BLOOD COUNT 2.97 Mil/cmm (3.80-5.80); RED CELL DISTRIBUTION WIDTH 16.1 % (11.5-20.0)
[2017-06-10 06:01] LABS: WHITE BLOOD COUNT 9.9 Th/cmm (4.8-10.8)
[2017-06-10] MEDS: INSULIN ASPART SLIDING SCALE 100 UNITS/ML UNIT SUBQ SCH ×3 (06:19→17:47)
[2017-06-10 06:40] LABS: GLUCOSE 171 mg/dL (70-105)
[2017-06-10] MEDS ORDERED: Sodium Chloride 0.9% 250 ML IV ONE (07:43)
[2017-06-10] MEDS: Chlorhexidine Gluconate 0.12% 15mL Mouthwash MM SCH ×2 (07:47→20:18)
[2017-06-10] MEDS: Budesonide 0.5 Mg/2 mL Ud HHN SCH ×2 (07:57→19:03)
[2017-06-10 08:39] LABS: ANISOCYTOSIS 1+; BAND NEUTROPHILE 4 % (0-10); EOSINOPHIL 1 % (0-5); METAMYELOCYTE 4 % (0-0); MYELOCYTE 2 %; NEUTROPHILS 47 % (40-80); PLATELET ESTIMATE DECREASED PLATELETS (NORMAL); PLATELET MORPHOLOGY GIANT PLATELETS SEEN (NORMAL); TOTAL CELLS COUNTED 100
[2017-06-10] MEDS: Metoclopramide 5 mg/mL 2mL Vial IVP SCH ×3 (09:43→20:07)
[2017-06-10] MEDS: Pantoprazole 40 mg/Packet GT SCH (09:43)
[2017-06-10] MEDS: Lactobacillus Rhamnosus 10 Billion CFU Capsule PO SCH (09:43)
[2017-06-10] MEDS: Menthol/Zinc Oxide Oint 113gm Tube TP SCH ×4 (09:45→20:18)
--- NOTE | 2017-06-10 09:45 | Diagnostic Imaging Report ---
Portable chest x-ray HISTORY: Shortness of breath Compared to prior exam of June 08, 2017, no change in bilateral infiltrates and pleural effusions. The heart appears enlarged. Findings suggest changes of congestive heart failure. Clinical correlation is needed. A tracheostomy has been performed. IMPRESSION: 1. New tracheostomy 2. No change in the cardiopulmonary status as noted above
[2017-06-10 10:44] LABS: BE(B) 5.8 mEq/L (-3.0-3.0); HCO3 29.3 mEq/L (20.0-26.0); pH 7.45 (7.35-7.45)
[2017-06-10 10:45] LABS: ABG SOURCE Arterial; ALLEN TEST Positive
[2017-06-10 10:46] LABS: FIO2 30; MECH RATE 4; MECH VT 500; PS 18
--- NOTE | 2017-06-10 13:05 | General Progress Note ---
Subjective - Review of Systems Service Date: 06/10/17 Events since last encounter: balloon of trach pulled back to provide pressure against trach site will check labs Objective - Results Result Diagrams: 06/10/17 04:45 06/10/17 04:45 Recent Labs: Laboratory Last Values WBC 9.9 Th/cmm (4.8-10.8) D 06/10/17 04:45 RBC 2.97 Mil/cmm (3.80-5.80) L 06/10/17 04:45 Hgb 8.5 gm/dL (12.6-17.4) L 06/10/17 04:45 Hct 25.1 % (39.0-49.0) L 06/10/17 04:45 MCV 84.3 fl (80-99) 06/10/17 04:45 MCH 28.6 pg (27.0-31.0) 06/10/17 04:45 MCHC Differential 33.9 pg (28.0-36.0) 06/10/17 04:45 RDW 16.1 % (11.5-20.0) 06/10/17 04:45 Plt Count 125 Th/cmm (150-400) L 06/10/17 04:45 MPV 13.8 fl 06/10/17 04:45 Neutrophils % 70.4 % (40.0-80.0) 06/08/17 06:05 Band Neutrophils % 4 % (0-10) 06/10/17 04:45 Lymphocytes % 12.5 % (20.0-50.0) L 06/08/17 06:05 Monocytes % 14.9 % (2.0-10.0) H 06/08/17 06:05 Eosinophils % 1.4 % (0.0-5.0) 06/08/17 06:05 Basophils % 0.8 % (0.0-2.0) 06/08/17 06:05 Neutrophils (Manual) 47 % (40-80) 06/10/17 04:45 Lymphocytes 19 % (20-50) L 06/10/17 04:45 Monocytes 22 % (2-10) H 06/10/17 04:45 Eosinophils 1 % (0-5) 06/10/17 04:45 Basophils 0 % (0-3) 05/24/17 04:49 Metamyelocytes 4 % (0-0) H 06/10/17 04:45 Myelocytes 2 % 06/10/17 04:45 Atypical Lymphocytes 1 % 06/10/17 04:45 Toxic Granulation 1+ 05/23/17 04:48 Platelet Estimate DECREASED PLATELETS (NORMAL) 06/10/17 04:45 Platelet Morphology GIANT PLATELETS SEEN (NORMAL) 06/10/17 04:45 Poikilocytosis 1+ 06/09/17 19:53 Anisocytosis 1+ 06/10/17 04:45 Target Cells 1+ 06/09/17 19:53 RBC Morph Micro Appear ABNORMAL (NORMAL) 06/10/17 04:45 Eos Smear Source URINE 05/14/17 18:00 Eos Smear Total Cells FEW EOSINOPHILS SEEN (NONE SEEN) 05/14/17 18:00 Plt Count 125 Th/cmm (150-750) L D 06/10/17 04:45 PT 12.7 SECONDS (9.5-11.5) H 06/10/17 04:45 INR 1.21 (0.5-1.4) 06/10/17 04:45 PTT (Actin FS) 33.4 SECONDS (26.0-38.0) 06/10/17 04:45 Fibrinogen 306.0 mg/dL (200.0-400.0) 06/10/17 04:45 D-Dimer 1900 ng/mL (100-400) H 06/10/17 04:45 Specimen Source Arterial 06/10/17 09:25 Sample Site Right Radial 06/10/17 09:25 pH 7.45 (7.35-7.45) 06/10/17 09:25 pCO2 44.0 mmHg (35.0-45.0) 06/10/17 09:25 pO2 63.0 mmHg (80.0-100.0) L 06/10/17 09:25 HCO3 29.3 mEq/L (20.0-26.0) H 06/10/17 09:25 Base Excess 5.8 mEq/L (-3.0-3.0) H 06/10/17 09:25 O2 Saturation 93.0 % (92.0-100.0) 06/10/17 09:25 Feliciano Test Positive 06/10/17 09:25 Vent Rate 4 06/10/17 09:25 Inspired O2 30 06/10/17 09:25 Tidal Volume 500 06/10/17 09:25 PEEP NA 06/10/17 09:25 Pressure (ins/psv/peep) 18 06/10/17 09:25 Critical Value LZHANG 06/10/17 09:25 Sodium 137 mEq/L (136-145) 06/10/17 04:45 Potassium 3.6 mEq/L (3.5-5.1) 06/10/17 04:45 Chloride 101 mEq/L (98-107) 06/10/17 04:45 Carbon Dioxide 28.0 mEq/L (21.0-31.0) 06/10/17 04:45 Anion Gap 11.6 (7.0-16.0) 06/10/17 04:45 BUN 42 mg/dL (7-25) H 06/10/17 04:45 Creatinine 2.6 mg/dL (0.7-1.3) H 06/10/17 04:45 Est GFR ( Amer) TNP 06/10/17 04:45 Est GFR (Non-Af Amer) TNP 06/10/17 04:45 BUN/Creatinine Ratio 16.2 06/10/17 04:45 Glucose 171 mg/dL (70-105) H 06/10/17 04:45 POC Glucose 233 MG/DL (70 - 105) H 06/10/17 11:03 Hemoglobin A1c % 6.1 % (4.0-6.0) H 05/15/17 06:30 Plasma/Ser Osmolality 301 mOsmol/kg (280-301) 05/14/17 18:20 Whole Bld Lactic Acid 1.58 mmol/L (0.60-1.99) 05/13/17 17:42 Uric Acid 7.7 mg/dL (4.4-7.6) H 05/15/17 06:30 Calcium 9.0 mg/dL (8.6-10.3) 06/10/17 04:45 Phosphorus 2.7 mg/dL (2.5-5.0) 06/09/17 04:50 Magnesium 2.4 mg/dL (1.9-2.7) 06/09/17 04:50 Iron 70 ug/dL (38-169) 06/04/17 04:47 TIBC 94 ug/dL (250-450) L 06/04/17 04:47 Iron Saturation 74 % (15-55) H 06/04/17 04:47 Unsaturated IBC 24 ug/dL (111-343) L 06/04/17 04:47 Ferritin 351 ng/mL (30-400) 06/03/17 04:48 Total Bilirubin 11.5 mg/dL (0.3-1.0) H 06/10/17 04:45 Direct Bilirubin 3.83 mg/dL (0.0-0.2) H 06/07/17 04:40 AST 344 U/L (13-39) H 06/10/17 04:45 ALT 38 U/L (7-52) 06/10/17 04:45 Alkaline Phosphatase 1942 U/L (34-104) H 06/10/17 04:45 Ammonia 47 umol/L (16-53) 06/08/17 14:08 Creatine Kinase 35 U/L (30-223) 05/16/17 23:06 Troponin I 0.02 ng/mL (0.01-0.05) 05/16/17 23:06 B-Natriuretic Peptide 1480.0 pg/mL (5.0-100.0) H 06/05/17 04:42 Total Protein 5.7 gm/dL (6.0-8.3) L 06/10/17 04:45 Albumin 3.4 gm/dL (4.2-5.5) L 06/10/17 04:45 Globulin 2.3 gm/dL 06/10/17 04:45 Albumin/Globulin Ratio 1.5 (1.0-1.8) 06/10/17 04:45 Prealbumin 6 mg/dL (9-32) L 06/04/17 04:47 Triglycerides 60 mg/dL (<150) 06/04/17 04:47 Cholesterol 63 mg/dL (<200) 06/04/17 04:47 Vitamin B12 >1999 pg/mL (211-946) H 06/04/17 04:47 Folic Acid >20.0 ng/mL (>3.0) 06/04/17 04:47 TSH 2.74 uIU/ml (0.34-5.60) 05/15/17 06:30 Urine Source CATH 06/06/17 10:30 Urine Color YELLOW 06/06/17 10:30 Urine Clarity SL. CLOUDY (CLEAR) 06/06/17 10:30 Urine pH 5.0 (4.6 - 8.0) 06/06/17 10:30 Ur Specific [place] 1.025 (1.005-1.030) 06/06/17 10:30 Urine Protein 100 mg/dL (NEGATIVE) H 06/06/17 10:30 Urine Glucose (UA) NEGATIVE mg/dL (NEGATIVE) 06/06/17 10:30 Urine Ketones NEGATIVE mg/dL (NEGATIVE) 06/06/17 10:30 Urine Blood LARGE (NEGATIVE) H 06/06/17 10:30 Urine Nitrate NEGATIVE (NEGATIVE) 06/06/17 10:30 Urine Bilirubin SMALL (NEGATIVE) H 06/06/17 10:30 Urine Urobilinogen 0.2 E.U./dL (0.2 - 1.0) 06/06/17 10:30 Ur Leukocyte Esterase LARGE (NEGATIVE) H 06/06/17 10:30 Urine RBC 20-30 /hpf (0-5) 06/06/17 10:30 Urine WBC 10-25 /hpf (0-5) H 06/06/17 10:30 Ur Epithelial Cells RARE /lpf (FEW) 06/06/17 10:30 Urine Bacteria f /hpf (NONE SEEN) 06/06/17 10:30 Urine Yeast MODERATE /hpf (NONE SEEN) H 06/06/17 10:30 Ur Random Sodium 30 mmol/L 05/14/17 18:00 Urine Creatinine 36.4 mg/dl (Not Estab.) 05/14/17 18:00 Urine Microalbumin 363.5 ug/mL (Not Estab.) 05/14/17 18:00 Microalb/Creat Ratio 998.6 mg/g creat (0.0-30.0) H 05/14/17 18:00 Stool Occult Blood NEGATIVE (NEGATIVE) 05/25/17 17:49 Random Vancomycin 19.1 ug/mL (5.0-40.0) 05/19/17 04:50 Acetaminophen < 10.0 ug/mL (10.0-30.0) L 06/07/17 04:40 Hepatitis A IgM Ab Negative (Negative) 05/21/17 04:46 Hep Bs Antigen Negative (Negative) 05/21/17 04:46 Hep B Core IgM Ab Negative (Negative) 05/21/17 04:46 Hepatitis C Antibody 0.1 s/co ratio (0.0-0.9) 05/21/17 04:46 Blood Type B POSITIVE 06/04/17 04:47 Antibody Screen NEGATIVE 06/04/17 04:47 Crossmatch See Detail 05/21/17 10:19 - Physical Exam Vitals and I&O: Vital Signs Temp 98.6 F 06/10/17 10:00 Pulse 101 06/10/17 11:00 Resp 13 06/10/17 11:00 BP 113/61 06/10/17 11:00 Pulse Ox 97 06/10/17 12:00 Intake & Output 06/09/17 06/10/17 06/10/17 18:59 06:59 18:59 Intake Total 799 890 Output Total 1275 50 Balance -476 840 Weight (lbs) 68.674 kg 68.175 kg Intake: Intake, IV Amount 50 150 Piperacillin Sodium/ 50 150 Tazobact 2.25 gm In Sodium Chloride 0.9% 50 ml @ 100 mls/hr IV Q6HR [facility] Rx#:[id number] Oral 0 Tube Feeding 249 540 Albumin 200 Other 300 200 Output: Urine 75 50 Hemodialysis 1200 Other: # Bowel Movements 0 Stool Characteristics Liquid Brown Active Medications: Current Medications Acetaminophen (Tylenol) 650 mg PO Q4HR PRN PRN Reason: Pain Or Fever above 101 Stop: 07/14/17 15:15 Last Admin: 06/09/17 18:51 Dose: 650 mg Albuterol/Ipratropium (Duoneb Neb) 3 ml HHN Q4HRT [facility] Stop: 07/19/17 14:59 Last Admin: 06/10/17 12:19 Dose: 3 ml Budesonide (Pulmicort) 1 mg HHN BIDRT [facility] Stop: 07/19/17 18:59 Last Admin: 06/10/17 07:57 Dose: 1 mg Calamine/Phenol (Calmoseptine) 1 appl TP QID PRN PRN Reason: Skin Irritation Stop: 08/03/17 12:28 Last Admin: 06/07/17 21:00 Dose: 1 appl Calamine/Phenol (Calmoseptine) 1 appl TP QID [facility] Stop: 08/03/17 12:59 Last Admin: 06/10/17 09:45 Dose: 1 appl Carbidopa/Levodopa (Sinemet 25mg-100 Mg) 1 tab PO TID YESSICA Stop: 07/14/17 08:59 Last Admin: 06/10/17 09:43 Dose: 1 tab Chlorhexidine Gluconate (Peridex) 15 ml MM 0800,1999 YESSICA Stop: 07/23/17 19:59 Last Admin: 06/10/17 07:47 Dose: 15 ml Clonidine HCl (Catapres) 0.1 mg PO Q6HR PRN PRN Reason: BP MAINTENANCE (PER PROTOCOL) Stop: 07/28/17 13:31 Last Admin: 05/29/17 21:04 Dose: 0.1 mg Dextrose (D50w) 50 ml IVP PRN PRN; Protocol PRN Reason: HYPOGLYCEMIA Stop: 07/20/17 00:54 Last Admin: 05/22/17 23:34 Dose: 50 ml Diltiazem HCl (Cardizem) 10 mg IVP Q6HR PRN PRN Reason: HR >130 Stop: 07/22/17 17:09 Last Admin: 05/24/17 04:21 Dose: 10 mg Hydralazine HCl (Apresoline 20 Mg/Ml) 10 mg IV Q6HR PRN PRN Reason: BP MAINTENANCE (PER PROTOCOL) Stop: 07/30/17 13:09 Last Admin: 06/06/17 12:30 Dose: 10 mg Norepinephrine Bitartrate 8 mg (/ Dextrose) 258 mls @ 0 mls/hr IV TITR PRN; Protocol; Titrate PRN Reason: BP MAINTENANCE (PER PROTOCOL) Stop: 07/19/17 12:29 Last Admin: 05/21/17 01:06 Dose: 10 mcg/min, 19.35 mls/hr Phenylephrine HCl 10 mg/ (Sodium Chloride) 250 mls @ 0 mls/hr IV TITR YESSICA; Per Protocol PRN Reason: Protocol Stop: 07/19/17 12:59 Piperacillin Sod/Tazobactam (Sod 2.25 gm/ Sodium Chloride) 50 mls @ 100 mls/hr IV Q6HR YESSICA Stop: 08/05/17 11:59 Last Admin: 06/10/17 11:13 Dose: 100 mls/hr Norepinephrine Bitartrate 4 mg (/ Dextrose) 254 mls @ 0 mls/hr IV TITR PRN; Protocol; Per Protocol PRN Reason: BP MAINTENANCE (PER PROTOCOL) Stop: 08/07/17 10:48 Insulin Aspart (Novolog Insulin Sliding Scale) 0 units SUBQ Q6HR YESSICA PRN Reason: Protocol Stop: 07/14/17 00:00 Last Admin: 06/10/17 11:15 Dose: 1,000 units Isosorbide Dinitrate (Isordil) 20 mg GT TID [facility] Stop: 07/28/17 13:33 Last Admin: 06/10/17 09:43 Dose: 20 mg Lactobacillus Rhamnosus (Culturelle) 1 each PO DAILY [facility] Stop: 07/17/17 08:59 Last Admin: 06/10/17 09:43 Dose: 1 each Metoclopramide HCl (Reglan) 5 mg IVP TID [facility] Stop: 07/20/17 20:59 Last Admin: 06/10/17 09:43 Dose: 5 mg Metoprolol Tartrate (Lopressor) 50 mg GT Q8H [facility] Stop: 07/18/17 08:59 Last Admin: 06/10/17 09:50 Dose: 50 mg Miscellaneous (Vte Chemical Prophylaxis Screen/ Admission) 1 ea PRN PRN PRN Reason: PROTOCOL Stop: 07/14/17 09:25 Miscellaneous (Clinical Monitoring) 1 ea MC DAILY PRN PRN Reason: RENAL Stop: 07/15/17 12:32 Miscellaneous (Probiotic Screen) 1 ea PRN PRN PRN Reason: PROTOCOL Stop: 07/16/17 09:33 Morphine Sulfate (Morphine) 1 mg IVP Q4HR PRN PRN Reason: Pain (Moderate) Stop: 08/06/17 15:02 Last Admin: 06/10/17 00:18 Dose: 1 mg Pantoprazole Sodium (Protonix) 40 mg GT DAILY [facility] Stop: 07/14/17 08:59 Last Admin: 06/10/17 09:43 Dose: 40 mg General: Alert, No acute distress HEENT: Atraumatic, EOMI Neck: Supple, +2 carotid pulse wo bruit, Other (trach) Cardiovascular: Regular rate Lungs: Other (rhonchi bilaterally) Abdomen: Soft, no Tender Extremities: no Edema (no edema) Neurological: Sensation intact, Other (opens eyes upon verbal command) Skin: Rash Psych/Mental Status: Mood NL - Procedures Procedures: Procedures Procedure Code Date BYPASS TRACHEA TO CUTANEOUS WITH TRACH DEV, OPEN APPROACH [id number] 05/13/17 INCISION OF WINDPIPE 33181 05/13/17 INSERT EMERGENCY AIRWAY 66164 05/13/17 INSERT TUNNELED CV CATH 70385 05/13/17 INSERTION OF ENDOTRACHEAL AIRWAY INTO TRACHEA, VIA OPENING [id number] 05/13/17 INSERTION OF INFUSION DEV INTO R FEMOR VEIN, PERC APPROACH [id number] 05/13/17 RESPIRATORY VENTILATION, GREATER THAN 96 CONSECUTIVE HOURS [id number] 05/13/17 VENT MGMT INPAT INIT DAY [id number] 05/13/17 Assessment/Plan - Problem List Patient Problems: All Active Problems COUGH AND CONGESTION (Acute) Congestive heart failure (CHF) (Acute) I50.9 congestive heart failure (Acute) hypertension uncontrolled with bradycarda (Acute) renal failure (Acute) Nutritional Asmnt/Malnutr-PDOC - Dietary Evaluation Malnutrition Findings (Please click <Entered> for more info): Nutritional Asmnt/Malnutrition Start: 05/15/17 13: 56 Text: Status: Complete Freq: Document 05/15/17 13:56 GSUN (Rec: 05/15/17 14:18 GSUN [id number]) Nutritional Asmnt/Malnutrition Patient General Information Nutritional Screening High Risk Screening Diagnosis PNA, NICK, icnreasing renal failure, CVA, CHF, DM Pertinent Medical Hx/Surgical Hx CVA, dementia, afib, CAD, HTN, dyslipidemia, epilepsy, GERD, aspiration PNA, DM, CKD, dehydration, C. diff, anemia D Subjective Information 86 year old male from SNF. Pt greeted RD. Pt is overall thin , moderate to severe wasting to chest, clavicles, extremities. Observed Glytrol running at 60ml/hr x20hrs during visit. Unable to obtain CBW due to bedscale not calibrated. Discussed with YVETTE Farooq regarding tube feeding recommendations. Current Diet Order/ Nutrition Support Glytrol at 60ml/hr x 20hrs, providing 1200kcal 54g protein Pertinent Medications Lipitor, Novolog, Levemir, Cephulac, Morphine, Protonix, Nacl 0.9% Pertinent Labs 05/13: potassium 5.3H, BUN 80H, creatinine 2.4H, glucose 103 05/15: potassium WNL, BUN 70H, creatinine 2.4H, glucose 239H, A1c 6.1H, phosphorus 5.4H Nutritional Hx/Data Height 1.68 m Height (Calculated Centimeters) 167.6 Current Weight (lbs) 65.771 kg Weight (Calculated Kilograms) 65.8 Weight (Calculated Grams) 73996.9 [place] Body Weight 142 Weight Status Approriate GI Symptoms Difficult in: Swallowing Cultural/Ethnic/Taoist Belief [facility]: Glucerna 1.2 at 85ml/hr x 20hrs, providing 2040kcal, promote weight gain. Skin Integrity/Comment: Gee 12. Skin intact. Estimated Nutritional Goals Calories/Kcals/Kg CBW 145lb/65.9kg Kcals Calculated 1976-7kcal (30-35kcal/kg) Protein Calculated 46-92g (0.7-1.4g/kg, renal vs moderate to severe wasting) Fluid: ml Per MD (renal) Nutritional Problem 2. 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 Problem Problem Inadequate intake from enteral nutrition infusion related to Etiology estimated nutritional needs aeb Signs/Symptoms: providing to meet 61% lower end kcal needs Intervention/Recommendation Comments 1. Recommend Novasource Renal at 50ml/hr x 20hrs, providing 2000kcal and 91g protein. Current order Glytrol at 60ml/ hr x 20hrs is only providing 1200kcal, pt recieves 2040kcal at [facility]. Expected Outcomes/Goals Expected Outcomes/Goals 1. Pt to meet at least 100% of estimated nutritional needs on tube feeding with tolerance .
--- NOTE | 2017-06-10 13:05 | General Progress Note ---
Subjective - Review of Systems Service Date: 06/10/17 Events since last encounter: bleeding is in oral cavity, no bleeding from incision on neck Objective - Results Result Diagrams: 06/10/17 04:45 06/10/17 04:45 Recent Labs: Laboratory Last Values WBC 9.9 Th/cmm (4.8-10.8) D 06/10/17 04:45 RBC 2.97 Mil/cmm (3.80-5.80) L 06/10/17 04:45 Hgb 8.5 gm/dL (12.6-17.4) L 06/10/17 04:45 Hct 25.1 % (39.0-49.0) L 06/10/17 04:45 MCV 84.3 fl (80-99) 06/10/17 04:45 MCH 28.6 pg (27.0-31.0) 06/10/17 04:45 MCHC Differential 33.9 pg (28.0-36.0) 06/10/17 04:45 RDW 16.1 % (11.5-20.0) 06/10/17 04:45 Plt Count 125 Th/cmm (150-400) L 06/10/17 04:45 MPV 13.8 fl 06/10/17 04:45 Neutrophils % 70.4 % (40.0-80.0) 06/08/17 06:05 Band Neutrophils % 4 % (0-10) 06/10/17 04:45 Lymphocytes % 12.5 % (20.0-50.0) L 06/08/17 06:05 Monocytes % 14.9 % (2.0-10.0) H 06/08/17 06:05 Eosinophils % 1.4 % (0.0-5.0) 06/08/17 06:05 Basophils % 0.8 % (0.0-2.0) 06/08/17 06:05 Neutrophils (Manual) 47 % (40-80) 06/10/17 04:45 Lymphocytes 19 % (20-50) L 06/10/17 04:45 Monocytes 22 % (2-10) H 06/10/17 04:45 Eosinophils 1 % (0-5) 06/10/17 04:45 Basophils 0 % (0-3) 05/24/17 04:49 Metamyelocytes 4 % (0-0) H 06/10/17 04:45 Myelocytes 2 % 06/10/17 04:45 Atypical Lymphocytes 1 % 06/10/17 04:45 Toxic Granulation 1+ 05/23/17 04:48 Platelet Estimate DECREASED PLATELETS (NORMAL) 06/10/17 04:45 Platelet Morphology GIANT PLATELETS SEEN (NORMAL) 06/10/17 04:45 Poikilocytosis 1+ 06/09/17 19:53 Anisocytosis 1+ 06/10/17 04:45 Target Cells 1+ 06/09/17 19:53 RBC Morph Micro Appear ABNORMAL (NORMAL) 06/10/17 04:45 Eos Smear Source URINE 05/14/17 18:00 Eos Smear Total Cells FEW EOSINOPHILS SEEN (NONE SEEN) 05/14/17 18:00 Plt Count 125 Th/cmm (150-750) L D 06/10/17 04:45 PT 12.7 SECONDS (9.5-11.5) H 06/10/17 04:45 INR 1.21 (0.5-1.4) 06/10/17 04:45 PTT (Actin FS) 33.4 SECONDS (26.0-38.0) 06/10/17 04:45 Fibrinogen 306.0 mg/dL (200.0-400.0) 06/10/17 04:45 D-Dimer 1900 ng/mL (100-400) H 06/10/17 04:45 Specimen Source Arterial 06/10/17 09:25 Sample Site Right Radial 06/10/17 09:25 pH 7.45 (7.35-7.45) 06/10/17 09:25 pCO2 44.0 mmHg (35.0-45.0) 06/10/17 09:25 pO2 63.0 mmHg (80.0-100.0) L 06/10/17 09:25 HCO3 29.3 mEq/L (20.0-26.0) H 06/10/17 09:25 Base Excess 5.8 mEq/L (-3.0-3.0) H 06/10/17 09:25 O2 Saturation 93.0 % (92.0-100.0) 06/10/17 09:25 Fel[place]o Test Positive 06/10/17 09:25 Vent Rate 4 06/10/17 09:25 Inspired O2 30 06/10/17 09:25 Tidal Volume 500 06/10/17 09:25 PEEP NA 06/10/17 09:25 Pressure (ins/psv/peep) 18 06/10/17 09:25 Critical Value LZHANG 06/10/17 09:25 Sodium 137 mEq/L (136-145) 06/10/17 04:45 Potassium 3.6 mEq/L (3.5-5.1) 06/10/17 04:45 Chloride 101 mEq/L (98-107) 06/10/17 04:45 Carbon Dioxide 28.0 mEq/L (21.0-31.0) 06/10/17 04:45 Anion Gap 11.6 (7.0-16.0) 06/10/17 04:45 BUN 42 mg/dL (7-25) H 06/10/17 04:45 Creatinine 2.6 mg/dL (0.7-1.3) H 06/10/17 04:45 Est GFR ( Amer) TNP 06/10/17 04:45 Est GFR (Non-Af Amer) TNP 06/10/17 04:45 BUN/Creatinine Ratio 16.2 06/10/17 04:45 Glucose 171 mg/dL (70-105) H 06/10/17 04:45 POC Glucose 233 MG/DL (70 - 105) H 06/10/17 11:03 Hemoglobin A1c % 6.1 % (4.0-6.0) H 05/15/17 06:30 Plasma/Ser Osmolality 301 mOsmol/kg (280-301) 05/14/17 18:20 Whole Bld Lactic Acid 1.58 mmol/L (0.60-1.99) 05/13/17 17:42 Uric Acid 7.7 mg/dL (4.4-7.6) H 05/15/17 06:30 Calcium 9.0 mg/dL (8.6-10.3) 06/10/17 04:45 Phosphorus 2.7 mg/dL (2.5-5.0) 06/09/17 04:50 Magnesium 2.4 mg/dL (1.9-2.7) 06/09/17 04:50 Iron 70 ug/dL (38-169) 06/04/17 04:47 TIBC 94 ug/dL (250-450) L 06/04/17 04:47 Iron Saturation 74 % (15-55) H 06/04/17 04:47 Unsaturated IBC 24 ug/dL (111-343) L 06/04/17 04:47 Ferritin 351 ng/mL (30-400) 06/03/17 04:48 Total Bilirubin 11.5 mg/dL (0.3-1.0) H 06/10/17 04:45 Direct Bilirubin 3.83 mg/dL (0.0-0.2) H 06/07/17 04:40 AST 344 U/L (13-39) H 06/10/17 04:45 ALT 38 U/L (7-52) 06/10/17 04:45 Alkaline Phosphatase 1942 U/L (34-104) H 06/10/17 04:45 Ammonia 47 umol/L (16-53) 06/08/17 14:08 Creatine Kinase 35 U/L (30-223) 05/16/17 23:06 Troponin I 0.02 ng/mL (0.01-0.05) 05/16/17 23:06 B-Natriuretic Peptide 1480.0 pg/mL (5.0-100.0) H 06/05/17 04:42 Total Protein 5.7 gm/dL (6.0-8.3) L 06/10/17 04:45 Albumin 3.4 gm/dL (4.2-5.5) L 06/10/17 04:45 Globulin 2.3 gm/dL 06/10/17 04:45 Albumin/Globulin Ratio 1.5 (1.0-1.8) 06/10/17 04:45 Prealbumin 6 mg/dL (9-32) L 06/04/17 04:47 Triglycerides 60 mg/dL (<150) 06/04/17 04:47 Cholesterol 63 mg/dL (<200) 06/04/17 04:47 Vitamin B12 >1999 pg/mL (211-946) H 06/04/17 04:47 Folic Acid >20.0 ng/mL (>3.0) 06/04/17 04:47 TSH 2.74 uIU/ml (0.34-5.60) 05/15/17 06:30 Urine Source CATH 06/06/17 10:30 Urine Color YELLOW 06/06/17 10:30 Urine Clarity SL. CLOUDY (CLEAR) 06/06/17 10:30 Urine pH 5.0 (4.6 - 8.0) 06/06/17 10:30 Ur Specific [place] 1.025 (1.005-1.030) 06/06/17 10:30 Urine Protein 100 mg/dL (NEGATIVE) H 06/06/17 10:30 Urine Glucose (UA) NEGATIVE mg/dL (NEGATIVE) 06/06/17 10:30 Urine Ketones NEGATIVE mg/dL (NEGATIVE) 06/06/17 10:30 Urine Blood LARGE (NEGATIVE) H 06/06/17 10:30 Urine Nitrate NEGATIVE (NEGATIVE) 06/06/17 10:30 Urine Bilirubin SMALL (NEGATIVE) H 06/06/17 10:30 Urine Urobilinogen 0.2 E.U./dL (0.2 - 1.0) 06/06/17 10:30 Ur Leukocyte Esterase LARGE (NEGATIVE) H 06/06/17 10:30 Urine RBC 20-30 /hpf (0-5) 06/06/17 10:30 Urine WBC 10-25 /hpf (0-5) H 06/06/17 10:30 Ur Epithelial Cells RARE /lpf (FEW) 06/06/17 10:30 Urine Bacteria f /hpf (NONE SEEN) 06/06/17 10:30 Urine Yeast MODERATE /hpf (NONE SEEN) H 06/06/17 10:30 Ur Random Sodium 30 mmol/L 05/14/17 18:00 Urine Creatinine 36.4 mg/dl (Not Estab.) 05/14/17 18:00 Urine Microalbumin 363.5 ug/mL (Not Estab.) 05/14/17 18:00 Microalb/Creat Ratio 998.6 mg/g creat (0.0-30.0) H 05/14/17 18:00 Stool Occult Blood NEGATIVE (NEGATIVE) 05/25/17 17:49 Random Vancomycin 19.1 ug/mL (5.0-40.0) 05/19/17 04:50 Acetaminophen < 10.0 ug/mL (10.0-30.0) L 06/07/17 04:40 Hepatitis A IgM Ab Negative (Negative) 05/21/17 04:46 Hep Bs Antigen Negative (Negative) 05/21/17 04:46 Hep B Core IgM Ab Negative (Negative) 05/21/17 04:46 Hepatitis C Antibody 0.1 s/co ratio (0.0-0.9) 05/21/17 04:46 Blood Type B POSITIVE 06/04/17 04:47 Antibody Screen NEGATIVE 06/04/17 04:47 Crossmatch See Detail 05/21/17 10:19 - Physical Exam Vitals and I&O: Vital Signs Temp 98.6 F 06/10/17 10:00 Pulse 101 06/10/17 11:00 Resp 13 06/10/17 11:00 BP 113/61 06/10/17 11:00 Pulse Ox 97 06/10/17 12:00 Intake & Output 06/09/17 06/10/17 06/10/17 18:59 06:59 18:59 Intake Total 799 890 Output Total 1275 50 Balance -476 840 Weight (lbs) 68.674 kg 68.175 kg Intake: Intake, IV Amount 50 150 Piperacillin Sodium/ 50 150 Tazobact 2.25 gm In Sodium Chloride 0.9% 50 ml @ 100 mls/hr IV Q6HR [facility] Rx#:[id number] Oral 0 Tube Feeding 249 540 Albumin 200 Other 300 200 Output: Urine 75 50 Hemodialysis 1200 Other: # Bowel Movements 0 Stool Characteristics Liquid Brown Active Medications: Current Medications Acetaminophen (Tylenol) 650 mg PO Q4HR PRN PRN Reason: Pain Or Fever above 101 Stop: 07/14/17 15:15 Last Admin: 06/09/17 18:51 Dose: 650 mg Albuterol/Ipratropium (Duoneb Neb) 3 ml HHN Q4HRT [facility] Stop: 07/19/17 14:59 Last Admin: 06/10/17 12:19 Dose: 3 ml Budesonide (Pulmicort) 1 mg [facility] BIDRT [facility] Stop: 07/19/17 18:59 Last Admin: 06/10/17 07:57 Dose: 1 mg Calamine/Phenol (Calmoseptine) 1 appl TP QID PRN PRN Reason: Skin Irritation Stop: 08/03/17 12:28 Last Admin: 06/07/17 21:00 Dose: 1 appl Calamine/Phenol (Calmoseptine) 1 appl TP QID [facility] Stop: 08/03/17 12:59 Last Admin: 06/10/17 09:45 Dose: 1 appl Carbidopa/Levodopa (Sinemet 25mg-100 Mg) 1 tab PO TID YESSICA Stop: 07/14/17 08:59 Last Admin: 06/10/17 09:43 Dose: 1 tab Chlorhexidine Gluconate (Peridex) 15 ml MM 0800,1999 YESSICA Stop: 07/23/17 19:59 Last Admin: 06/10/17 07:47 Dose: 15 ml Clonidine HCl (Catapres) 0.1 mg PO Q6HR PRN PRN Reason: BP MAINTENANCE (PER PROTOCOL) Stop: 07/28/17 13:31 Last Admin: 05/29/17 21:04 Dose: 0.1 mg Dextrose (D50w) 50 ml IVP PRN PRN; Protocol PRN Reason: HYPOGLYCEMIA Stop: 07/20/17 00:54 Last Admin: 05/22/17 23:34 Dose: 50 ml Diltiazem HCl (Cardizem) 10 mg IVP Q6HR PRN PRN Reason: HR >130 Stop: 07/22/17 17:09 Last Admin: 05/24/17 04:21 Dose: 10 mg Hydralazine HCl (Apresoline 20 Mg/Ml) 10 mg IV Q6HR PRN PRN Reason: BP MAINTENANCE (PER PROTOCOL) Stop: 07/30/17 13:09 Last Admin: 06/06/17 12:30 Dose: 10 mg Norepinephrine Bitartrate 8 mg (/ Dextrose) 258 mls @ 0 mls/hr IV TITR PRN; Protocol; Titrate PRN Reason: BP MAINTENANCE (PER PROTOCOL) Stop: 07/19/17 12:29 Last Admin: 05/21/17 01:06 Dose: 10 mcg/min, 19.35 mls/hr Phenylephrine HCl 10 mg/ (Sodium Chloride) 250 mls @ 0 mls/hr IV TITR YESSICA; Per Protocol PRN Reason: Protocol Stop: 07/19/17 12:59 Piperacillin Sod/Tazobactam (Sod 2.25 gm/ Sodium Chloride) 50 mls @ 100 mls/hr IV Q6HR YESSICA Stop: 08/05/17 11:59 Last Admin: 06/10/17 11:13 Dose: 100 mls/hr Norepinephrine Bitartrate 4 mg (/ Dextrose) 254 mls @ 0 mls/hr IV TITR PRN; Protocol; Per Protocol PRN Reason: BP MAINTENANCE (PER PROTOCOL) Stop: 08/07/17 10:48 Insulin Aspart (Novolog Insulin Sliding Scale) 0 units SUBQ Q6HR YESSICA PRN Reason: Protocol Stop: 07/14/17 00:00 Last Admin: 06/10/17 11:15 Dose: 1,000 units Isosorbide Dinitrate (Isordil) 20 mg GT TID [facility] Stop: 07/28/17 13:33 Last Admin: 06/10/17 09:43 Dose: 20 mg Lactobacillus Rhamnosus (Culturelle) 1 each PO DAILY [facility] Stop: 07/17/17 08:59 Last Admin: 06/10/17 09:43 Dose: 1 each Metoclopramide HCl (Reglan) 5 mg IVP TID [facility] Stop: 07/20/17 20:59 Last Admin: 06/10/17 09:43 Dose: 5 mg Metoprolol Tartrate (Lopressor) 50 mg GT Q8H [facility] Stop: 07/18/17 08:59 Last Admin: 06/10/17 09:50 Dose: 50 mg Miscellaneous (Vte Chemical Prophylaxis Screen/ Admission) 1 ea MC PRN PRN PRN Reason: PROTOCOL Stop: 07/14/17 09:25 Miscellaneous (Clinical Monitoring) 1 ea MC DAILY PRN PRN Reason: RENAL Stop: 07/15/17 12:32 Miscellaneous (Probiotic Screen) 1 ea PRN PRN PRN Reason: PROTOCOL Stop: 07/16/17 09:33 Morphine Sulfate (Morphine) 1 mg IVP Q4HR PRN PRN Reason: Pain (Moderate) Stop: 08/06/17 15:02 Last Admin: 06/10/17 00:18 Dose: 1 mg Pantoprazole Sodium (Protonix) 40 mg GT DAILY [facility] Stop: 07/14/17 08:59 Last Admin: 06/10/17 09:43 Dose: 40 mg General: Alert, No acute distress HEENT: Atraumatic, EOMI Neck: Supple, +2 carotid pulse wo bruit, Other (trach) Cardiovascular: Regular rate Lungs: Other (rhonchi bilaterally) Abdomen: Soft, no Tender Extremities: no Edema (no edema) Neurological: Sensation intact, Other (opens eyes upon verbal command) Skin: Rash Psych/Mental Status: Mood NL - Procedures Procedures: Procedures Procedure Code Date BYPASS TRACHEA TO CUTANEOUS WITH TRACH DEV, OPEN APPROACH [id number] 05/13/17 INCISION OF WINDPIPE 33388 05/13/17 INSERT EMERGENCY AIRWAY 31513 05/13/17 INSERT TUNNELED CV CATH 10611 05/13/17 INSERTION OF ENDOTRACHEAL AIRWAY INTO TRACHEA, VIA OPENING [id number] 05/13/17 INSERTION OF INFUSION DEV INTO R FEMOR VEIN, PERC APPROACH [id number] 05/13/17 RESPIRATORY VENTILATION, GREATER THAN 96 CONSECUTIVE HOURS [id number] 05/13/17 VENT MGMT INPAT INIT DAY 91486 05/13/17 Assessment/Plan - Problem List Patient Problems: All Active Problems COUGH AND CONGESTION (Acute) Congestive heart failure (CHF) (Acute) I50.9 congestive heart failure (Acute) hypertension uncontrolled with bradycarda (Acute) renal failure (Acute) Nutritional Asmnt/Malnutr-PDOC - Dietary Evaluation Malnutrition Findings (Please click <Entered> for more info): Nutritional Asmnt/Malnutrition Start: 05/15/17 13: 56 Text: Status: Complete Freq: Document 05/15/17 13:56 GSUN (Rec: 05/15/17 14:18 GSUN [id number]) Nutritional Asmnt/Malnutrition Patient General Information Nutritional Screening High Risk Screening Diagnosis PNA, NICK, icnreasing renal failure, CVA, CHF, DM Pertinent Medical Hx/Surgical Hx CVA, dementia, afib, CAD, HTN, dyslipidemia, epilepsy, GERD, aspiration PNA, DM, CKD, dehydration, C. diff, anemia D Subjective Information 86 year old male from SNF. Pt greeted RD. Pt is overall thin , moderate to severe wasting to chest, clavicles, extremities. Observed Glytrol running at 60ml/hr x20hrs during visit. Unable to obtain CBW due to bedscale not calibrated. Discussed with YVETTE Farooq regarding tube feeding recommendations. Current Diet Order/ Nutrition Support Glytrol at 60ml/hr x 20hrs, providing 1200kcal 54g protein Pertinent Medications Lipitor, Novolog, Levemir, Cephulac, Morphine, Protonix, Nacl 0.9% Pertinent Labs 05/13: potassium 5.3H, BUN 80H, creatinine 2.4H, glucose 103 05/15: potassium WNL, BUN 70H, creatinine 2.4H, glucose 239H, A1c 6.1H, phosphorus 5.4H Nutritional Hx/Data Height 1.68 m Height (Calculated Centimeters) 167.6 Current Weight (lbs) 65.771 kg Weight (Calculated Kilograms) 65.8 Weight (Calculated Grams) 32973.9 [place] Body Weight 142 Weight Status Approriate GI Symptoms Difficult in: Swallowing Cultural/Ethnic/Hinduism Belief [facility]: Glucerna 1.2 at 85ml/hr x 20hrs, providing 2040kcal, promote weight gain. Skin Integrity/Comment: Gee 12. Skin intact. Estimated Nutritional Goals Calories/Kcals/Kg CBW 145lb/65.9kg Kcals Calculated 1976-7kcal (30-35kcal/kg) Protein Calculated 46-92g (0.7-1.4g/kg, renal vs moderate to severe wasting) Fluid: ml Per MD (renal) Nutritional Problem 2. 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 Problem Problem Inadequate intake from enteral nutrition infusion related to Etiology estimated nutritional needs aeb Signs/Symptoms: providing to meet 61% lower end kcal needs Intervention/Recommendation Comments 1. Recommend Novasource Renal at 50ml/hr x 20hrs, providing 2000kcal and 91g protein. Current order Glytrol at 60ml/ hr x 20hrs is only providing 1200kcal, pt recieves 2040kcal at [facility]. Expected Outcomes/Goals Expected Outcomes/Goals 1. Pt to meet at least 100% of estimated nutritional needs on tube feeding with tolerance .
--- NOTE | 2017-06-10 13:16 | General Progress Note ---
Subjective - Review of Systems Service Date: 06/10/17 Subjective: stuporous, on vent, nonverbal Objective - Results Result Diagrams: 06/10/17 04:45 06/10/17 04:45 Recent Labs: Laboratory Last Values WBC 9.9 Th/cmm (4.8-10.8) D 06/10/17 04:45 RBC 2.97 Mil/cmm (3.80-5.80) L 06/10/17 04:45 Hgb 8.5 gm/dL (12.6-17.4) L 06/10/17 04:45 Hct 25.1 % (39.0-49.0) L 06/10/17 04:45 MCV 84.3 fl (80-99) 06/10/17 04:45 MCH 28.6 pg (27.0-31.0) 06/10/17 04:45 MCHC Differential 33.9 pg (28.0-36.0) 06/10/17 04:45 RDW 16.1 % (11.5-20.0) 06/10/17 04:45 Plt Count 125 Th/cmm (150-400) L 06/10/17 04:45 MPV 13.8 fl 06/10/17 04:45 Neutrophils % 70.4 % (40.0-80.0) 06/08/17 06:05 Band Neutrophils % 4 % (0-10) 06/10/17 04:45 Lymphocytes % 12.5 % (20.0-50.0) L 06/08/17 06:05 Monocytes % 14.9 % (2.0-10.0) H 06/08/17 06:05 Eosinophils % 1.4 % (0.0-5.0) 06/08/17 06:05 Basophils % 0.8 % (0.0-2.0) 06/08/17 06:05 Neutrophils (Manual) 47 % (40-80) 06/10/17 04:45 Lymphocytes 19 % (20-50) L 06/10/17 04:45 Monocytes 22 % (2-10) H 06/10/17 04:45 Eosinophils 1 % (0-5) 06/10/17 04:45 Basophils 0 % (0-3) 05/24/17 04:49 Metamyelocytes 4 % (0-0) H 06/10/17 04:45 Myelocytes 2 % 06/10/17 04:45 Atypical Lymphocytes 1 % 06/10/17 04:45 Toxic Granulation 1+ 05/23/17 04:48 Platelet Estimate DECREASED PLATELETS (NORMAL) 06/10/17 04:45 Platelet Morphology GIANT PLATELETS SEEN (NORMAL) 06/10/17 04:45 Poikilocytosis 1+ 06/09/17 19:53 Anisocytosis 1+ 06/10/17 04:45 Target Cells 1+ 06/09/17 19:53 RBC Morph Micro Appear ABNORMAL (NORMAL) 06/10/17 04:45 Eos Smear Source URINE 05/14/17 18:00 Eos Smear Total Cells FEW EOSINOPHILS SEEN (NONE SEEN) 05/14/17 18:00 Plt Count 125 Th/cmm (150-750) L D 06/10/17 04:45 PT 12.7 SECONDS (9.5-11.5) H 06/10/17 04:45 INR 1.21 (0.5-1.4) 06/10/17 04:45 PTT (Actin FS) 33.4 SECONDS (26.0-38.0) 06/10/17 04:45 Fibrinogen 306.0 mg/dL (200.0-400.0) 06/10/17 04:45 D-Dimer 1900 ng/mL (100-400) H 06/10/17 04:45 Specimen Source Arterial 06/10/17 09:25 Sample Site Right Radial 06/10/17 09:25 pH 7.45 (7.35-7.45) 06/10/17 09:25 pCO2 44.0 mmHg (35.0-45.0) 06/10/17 09:25 pO2 63.0 mmHg (80.0-100.0) L 06/10/17 09:25 HCO3 29.3 mEq/L (20.0-26.0) H 06/10/17 09:25 Base Excess 5.8 mEq/L (-3.0-3.0) H 06/10/17 09:25 O2 Saturation 93.0 % (92.0-100.0) 06/10/17 09:25 Feliciano Test Positive 06/10/17 09:25 Vent Rate 4 06/10/17 09:25 Inspired O2 30 06/10/17 09:25 Tidal Volume 500 06/10/17 09:25 PEEP NA 06/10/17 09:25 Pressure (ins/psv/peep) 18 06/10/17 09:25 Critical Value LZHANG 06/10/17 09:25 Sodium 137 mEq/L (136-145) 06/10/17 04:45 Potassium 3.6 mEq/L (3.5-5.1) 06/10/17 04:45 Chloride 101 mEq/L (98-107) 06/10/17 04:45 Carbon Dioxide 28.0 mEq/L (21.0-31.0) 06/10/17 04:45 Anion Gap 11.6 (7.0-16.0) 06/10/17 04:45 BUN 42 mg/dL (7-25) H 06/10/17 04:45 Creatinine 2.6 mg/dL (0.7-1.3) H 06/10/17 04:45 Est GFR ( Amer) TNP 06/10/17 04:45 Est GFR (Non-Af Amer) TNP 06/10/17 04:45 BUN/Creatinine Ratio 16.2 06/10/17 04:45 Glucose 171 mg/dL (70-105) H 06/10/17 04:45 POC Glucose 233 MG/DL (70 - 105) H 06/10/17 11:03 Hemoglobin A1c % 6.1 % (4.0-6.0) H 05/15/17 06:30 Plasma/Ser Osmolality 301 mOsmol/kg (280-301) 05/14/17 18:20 Whole Bld Lactic Acid 1.58 mmol/L (0.60-1.99) 05/13/17 17:42 Uric Acid 7.7 mg/dL (4.4-7.6) H 05/15/17 06:30 Calcium 9.0 mg/dL (8.6-10.3) 06/10/17 04:45 Phosphorus 2.7 mg/dL (2.5-5.0) 06/09/17 04:50 Magnesium 2.4 mg/dL (1.9-2.7) 06/09/17 04:50 Iron 70 ug/dL (38-169) 06/04/17 04:47 TIBC 94 ug/dL (250-450) L 06/04/17 04:47 Iron Saturation 74 % (15-55) H 06/04/17 04:47 Unsaturated IBC 24 ug/dL (111-343) L 06/04/17 04:47 Ferritin 351 ng/mL (30-400) 06/03/17 04:48 Total Bilirubin 11.5 mg/dL (0.3-1.0) H 06/10/17 04:45 Direct Bilirubin 3.83 mg/dL (0.0-0.2) H 06/07/17 04:40 AST 344 U/L (13-39) H 06/10/17 04:45 ALT 38 U/L (7-52) 06/10/17 04:45 Alkaline Phosphatase 1942 U/L (34-104) H 06/10/17 04:45 Ammonia 47 umol/L (16-53) 06/08/17 14:08 Creatine Kinase 35 U/L (30-223) 05/16/17 23:06 Troponin I 0.02 ng/mL (0.01-0.05) 05/16/17 23:06 B-Natriuretic Peptide 1480.0 pg/mL (5.0-100.0) H 06/05/17 04:42 Total Protein 5.7 gm/dL (6.0-8.3) L 06/10/17 04:45 Albumin 3.4 gm/dL (4.2-5.5) L 06/10/17 04:45 Globulin 2.3 gm/dL 06/10/17 04:45 Albumin/Globulin Ratio 1.5 (1.0-1.8) 06/10/17 04:45 Prealbumin 6 mg/dL (9-32) L 06/04/17 04:47 Triglycerides 60 mg/dL (<150) 06/04/17 04:47 Cholesterol 63 mg/dL (<200) 06/04/17 04:47 Vitamin B12 >1999 pg/mL (211-946) H 06/04/17 04:47 Folic Acid >20.0 ng/mL (>3.0) 06/04/17 04:47 TSH 2.74 uIU/ml (0.34-5.60) 05/15/17 06:30 Urine Source CATH 06/06/17 10:30 Urine Color YELLOW 06/06/17 10:30 Urine Clarity SL. CLOUDY (CLEAR) 06/06/17 10:30 Urine pH 5.0 (4.6 - 8.0) 06/06/17 10:30 Ur Specific [place] 1.025 (1.005-1.030) 06/06/17 10:30 Urine Protein 100 mg/dL (NEGATIVE) H 06/06/17 10:30 Urine Glucose (UA) NEGATIVE mg/dL (NEGATIVE) 06/06/17 10:30 Urine Ketones NEGATIVE mg/dL (NEGATIVE) 06/06/17 10:30 Urine Blood LARGE (NEGATIVE) H 06/06/17 10:30 Urine Nitrate NEGATIVE (NEGATIVE) 06/06/17 10:30 Urine Bilirubin SMALL (NEGATIVE) H 06/06/17 10:30 Urine Urobilinogen 0.2 E.U./dL (0.2 - 1.0) 06/06/17 10:30 Ur Leukocyte Esterase LARGE (NEGATIVE) H 06/06/17 10:30 Urine RBC 20-30 /hpf (0-5) 06/06/17 10:30 Urine WBC 10-25 /hpf (0-5) H 06/06/17 10:30 Ur Epithelial Cells RARE /lpf (FEW) 06/06/17 10:30 Urine Bacteria f /hpf (NONE SEEN) 06/06/17 10:30 Urine Yeast MODERATE /hpf (NONE SEEN) H 06/06/17 10:30 Ur Random Sodium 30 mmol/L 05/14/17 18:00 Urine Creatinine 36.4 mg/dl (Not Estab.) 05/14/17 18:00 Urine Microalbumin 363.5 ug/mL (Not Estab.) 05/14/17 18:00 Microalb/Creat Ratio 998.6 mg/g creat (0.0-30.0) H 05/14/17 18:00 Stool Occult Blood NEGATIVE (NEGATIVE) 05/25/17 17:49 Random Vancomycin 19.1 ug/mL (5.0-40.0) 05/19/17 04:50 Acetaminophen < 10.0 ug/mL (10.0-30.0) L 06/07/17 04:40 Hepatitis A IgM Ab Negative (Negative) 05/21/17 04:46 Hep Bs Antigen Negative (Negative) 05/21/17 04:46 Hep B Core IgM Ab Negative (Negative) 05/21/17 04:46 Hepatitis C Antibody 0.1 s/co ratio (0.0-0.9) 05/21/17 04:46 Blood Type B POSITIVE 06/04/17 04:47 Antibody Screen NEGATIVE 06/04/17 04:47 Crossmatch See Detail 05/21/17 10:19 - Physical Exam Vitals and I&O: Vital Signs Temp 98.6 F 06/10/17 10:00 Pulse 86 06/10/17 12:20 Resp 13 06/10/17 11:00 BP 113/61 06/10/17 11:00 Pulse Ox 97 06/10/17 12:20 Intake & Output 06/09/17 06/10/17 06/10/17 18:59 06:59 18:59 Intake Total 799 890 Output Total 1275 50 Balance -476 840 Weight (lbs) 68.674 kg 68.175 kg Intake: Intake, IV Amount 50 150 Piperacillin Sodium/ 50 150 Tazobact 2.25 gm In Sodium Chloride 0.9% 50 ml @ 100 mls/hr IV Q6HR [facility] Rx#:[id number] Oral 0 Tube Feeding 249 540 Albumin 200 Other 300 200 Output: Urine 75 50 Hemodialysis 1200 Other: # Bowel Movements 0 Stool Characteristics Liquid Brown Active Medications: Current Medications Acetaminophen (Tylenol) 650 mg PO Q4HR PRN PRN Reason: Pain Or Fever above 101 Stop: 07/14/17 15:15 Last Admin: 06/09/17 18:51 Dose: 650 mg Albuterol/Ipratropium (Duoneb Neb) 3 ml HHN Q4HRT [facility] Stop: 07/19/17 14:59 Last Admin: 06/10/17 12:19 Dose: 3 ml Budesonide (Pulmicort) 1 mg HHN BIDRT [facility] Stop: 07/19/17 18:59 Last Admin: 06/10/17 07:57 Dose: 1 mg Calamine/Phenol (Calmoseptine) 1 appl TP QID PRN PRN Reason: Skin Irritation Stop: 08/03/17 12:28 Last Admin: 06/07/17 21:00 Dose: 1 appl Calamine/Phenol (Calmoseptine) 1 appl TP QID [facility] Stop: 08/03/17 12:59 Last Admin: 06/10/17 09:45 Dose: 1 appl Carbidopa/Levodopa (Sinemet 25mg-100 Mg) 1 tab PO TID YESSICA Stop: 07/14/17 08:59 Last Admin: 06/10/17 09:43 Dose: 1 tab Chlorhexidine Gluconate (Peridex) 15 ml MM 0800,1999 YESSICA Stop: 07/23/17 19:59 Last Admin: 06/10/17 07:47 Dose: 15 ml Clonidine HCl (Catapres) 0.1 mg PO Q6HR PRN PRN Reason: BP MAINTENANCE (PER PROTOCOL) Stop: 07/28/17 13:31 Last Admin: 05/29/17 21:04 Dose: 0.1 mg Dextrose (D50w) 50 ml IVP PRN PRN; Protocol PRN Reason: HYPOGLYCEMIA Stop: 07/20/17 00:54 Last Admin: 05/22/17 23:34 Dose: 50 ml Diltiazem HCl (Cardizem) 10 mg IVP Q6HR PRN PRN Reason: HR >130 Stop: 07/22/17 17:09 Last Admin: 05/24/17 04:21 Dose: 10 mg Hydralazine HCl (Apresoline 20 Mg/Ml) 10 mg IV Q6HR PRN PRN Reason: BP MAINTENANCE (PER PROTOCOL) Stop: 07/30/17 13:09 Last Admin: 06/06/17 12:30 Dose: 10 mg Norepinephrine Bitartrate 8 mg (/ Dextrose) 258 mls @ 0 mls/hr IV TITR PRN; Protocol; Titrate PRN Reason: BP MAINTENANCE (PER PROTOCOL) Stop: 07/19/17 12:29 Last Admin: 05/21/17 01:06 Dose: 10 mcg/min, 19.35 mls/hr Phenylephrine HCl 10 mg/ (Sodium Chloride) 250 mls @ 0 mls/hr IV TITR YESSICA; Per Protocol PRN Reason: Protocol Stop: 07/19/17 12:59 Piperacillin Sod/Tazobactam (Sod 2.25 gm/ Sodium Chloride) 50 mls @ 100 mls/hr IV Q6HR YESSICA Stop: 08/05/17 11:59 Last Admin: 06/10/17 11:13 Dose: 100 mls/hr Norepinephrine Bitartrate 4 mg (/ Dextrose) 254 mls @ 0 mls/hr IV TITR PRN; Protocol; Per Protocol PRN Reason: BP MAINTENANCE (PER PROTOCOL) Stop: 08/07/17 10:48 Insulin Aspart (Novolog Insulin Sliding Scale) 0 units SUBQ Q6HR [facility] PRN Reason: Protocol Stop: 07/14/17 00:00 Last Admin: 06/10/17 11:15 Dose: 1,000 units Isosorbide Dinitrate (Isordil) 20 mg GT TID [facility] Stop: 07/28/17 13:33 Last Admin: 06/10/17 09:43 Dose: 20 mg Lactobacillus Rhamnosus (Culturelle) 1 each PO DAILY [facility] Stop: 07/17/17 08:59 Last Admin: 06/10/17 09:43 Dose: 1 each Metoclopramide HCl (Reglan) 5 mg IVP TID [facility] Stop: 07/20/17 20:59 Last Admin: 06/10/17 09:43 Dose: 5 mg Metoprolol Tartrate (Lopressor) 50 mg GT Q8H [facility] Stop: 07/18/17 08:59 Last Admin: 06/10/17 09:50 Dose: 50 mg Miscellaneous (Vte Chemical Prophylaxis Screen/ Admission) 1 ea MC PRN PRN PRN Reason: PROTOCOL Stop: 07/14/17 09:25 Miscellaneous (Clinical Monitoring) 1 ea MC DAILY PRN PRN Reason: RENAL Stop: 07/15/17 12:32 Miscellaneous (Probiotic Screen) 1 ea PRN PRN PRN Reason: PROTOCOL Stop: 07/16/17 09:33 Morphine Sulfate (Morphine) 1 mg IVP Q4HR PRN PRN Reason: Pain (Moderate) Stop: 08/06/17 15:02 Last Admin: 06/10/17 00:18 Dose: 1 mg Pantoprazole Sodium (Protonix) 40 mg GT DAILY [facility] Stop: 07/14/17 08:59 Last Admin: 06/10/17 09:43 Dose: 40 mg General: No acute distress, no Alert HEENT: EOMI, Other (bleeding out of tracheostomy site), no Atraumatic Neck: Supple, +2 carotid pulse wo bruit, Other (trach) Cardiovascular: Regular rate, Normal S1, Normal S2 Lungs: Other (rhonchi bilaterally) Abdomen: Soft, no Tender Extremities: no Edema (no edema) Neurological: Sensation intact, Other (opens eyes upon verbal command) Skin: Rash Psych/Mental Status: Mood NL - Procedures Procedures: Procedures Procedure Code Date BYPASS TRACHEA TO CUTANEOUS WITH TRACH DEV, OPEN APPROACH [id number] 05/13/17 INCISION OF WINDPIPE 88023 05/13/17 INSERT EMERGENCY AIRWAY 49441 05/13/17 INSERT TUNNELED CV CATH 26524 05/13/17 INSERTION OF ENDOTRACHEAL AIRWAY INTO TRACHEA, VIA OPENING [id number] 05/13/17 INSERTION OF INFUSION DEV INTO R FEMOR VEIN, PERC APPROACH [id number] 05/13/17 RESPIRATORY VENTILATION, GREATER THAN 96 CONSECUTIVE HOURS [id number] 05/13/17 VENT MGMT INPAT INIT DAY 65779 05/13/17 Assessment/Plan - Problem List Patient Problems: All Active Problems COUGH AND CONGESTION (Acute) Congestive heart failure (CHF) (Acute) I50.9 congestive heart failure (Acute) hypertension uncontrolled with bradycarda (Acute) renal failure (Acute) - Assessment Assessment: NICK on CKD, now on dialysis A LOC secondary to metabolic encephalopathy/medications Dehydration Essential hypertension with CKD COPD Chronic atrial fibrillation Status post CVA Aspiration pneumonia/dysphagia status post PEG Type 2 diabetes mellitus with CKD Acute Decompensated CHF Acute Resp Failure on Vent Acute liver failure 2nd to congestion; possible meds ? Diflucan, Keppra, TPN coagulopathy 2nd liver failure? DIC? - Plan Plan: Lab - Result Diagrams 05/15/17 06:30 05/15/17 06:30 Current Medications Acetaminophen (Tylenol) 650 mg PO Q4HR PRN PRN Reason: Pain Or Fever above 101 Stop: 07/14/17 15:15 Last Admin: 05/15/17 16:21 Dose: 650 mg Albuterol Sulfate (Albuterol 2.5mg/3ml Neb Ud) 2.5 mg HHN Q6HRT YESSICA Stop: 07/14/17 00:59 Last Admin: 05/15/17 16:05 Dose: 2.5 mg Atorvastatin Calcium (Lipitor) 10 mg GT HS YESSICA PRN Reason: Protocol Stop: 07/14/17 20:59 Carbidopa/Levodopa (Sinemet 25mg-100 Mg) 1 tab PO TID YESSICA Stop: 07/14/17 08:59 Last Admin: 05/15/17 14:02 Dose: 1 tab Heparin Sodium (Porcine) (Heparin) 5,000 units SUBQ Q8H YESSICA Stop: 07/14/17 14:59 Last Admin: 05/15/17 16:24 Dose: 5,000 units Sodium Chloride (Nacl 0.9%) 1,000 mls @ 60 mls/hr IV .[id number] [facility] Stop: 07/13/17 06:40 Last Admin: 05/14/17 17:16 Dose: 60 mls/hr Azithromycin 250 mg/ Sodium (Chloride) 250 mls @ 250 mls/hr IV Q24HR [facility] Stop: 05/20/17 08:59 Piperacillin Sod/Tazobactam (Sod 3.375 gm/ Sodium Chloride) 50 mls @ 100 mls/ hr IV Q8HR [facility] Stop: 07/14/17 15:14 Last Admin: 05/15/17 15:57 Dose: 100 mls/hr Insulin Aspart (Novolog Insulin Sliding Scale) 0 units SUBQ Q6HR [facility] PRN Reason: Protocol Stop: 07/14/17 00:00 Last Admin: 05/15/17 17:09 Dose: Not Given Insulin Detemir (Levemir Insulin) 14 units SUBQ DAILY [facility] PRN Reason: Protocol Stop: 07/15/17 08:59 Isosorbide Dinitrate (Isordil) 10 mg GT TID [facility] Stop: 07/14/17 08:59 Last Admin: 05/15/17 14:02 Dose: 10 mg Lactulose (Cephulac) 20 gm PO TID [facility] Stop: 07/14/17 08:59 Last Admin: 05/15/17 14:02 Dose: 20 gm Levetiracetam (Keppra) 250 mg NG BID [facility] Stop: 07/14/17 08:59 Last Admin: 05/15/17 16:23 Dose: 250 mg Metoprolol Tartrate (Lopressor) 37.5 mg GT BID [facility] Stop: 07/14/17 00:14 Last Admin: 05/15/17 16:22 Dose: 37.5 mg Miscellaneous (Vte Chemical Prophylaxis Screen/ Admission) 1 ea MC PRN PRN PRN Reason: PROTOCOL Stop: 07/14/17 09:25 Morphine Sulfate (Morphine) 2 mg IVP Q3H PRN PRN Reason: PAIN Stop: 07/13/17 19:46 Last Admin: 05/14/17 21:16 Dose: 2 mg Mupirocin (Bactroban Oint) 1 appl TP BID [facility] Stop: 07/14/17 16:59 Last Admin: 05/15/17 16:24 Dose: 1 appl Pantoprazole Sodium (Protonix) 40 mg GT DAILY YESSICA Stop: 07/14/17 08:59 Last Admin: 05/15/17 08:36 Dose: 40 mg Rifaximin (Xifaxan) 550 mg GT BID YESSICA Stop: 07/14/17 08:59 Last Admin: 05/15/17 16:23 Dose: 550 mg Latest BUN/CR were 42/2.6 WBC 9.9 on Zosyn, dc Diflucan Chest x-ray still w/ b/l infiltrates, effusions, no significant change Reviewed his meds Follow-up electrolytes, cbc decreased nephro 25 ml/hr due to residuals prognosis poor Hgb/Hct up to 8.6/24.7 schedule for hd in am Follow-up electrolytes, CBC and chest x-ray in a.m. BNP still elevated @ 1480 replace MG currently being dialyzed bleeding tracheostomy site Lab - Result Diagrams 05/24/17 04:49 05/24/17 04:49 addendum: Poor response to diuretics, w/ worsening CHF, BNP level developed resp failure, required intubation worsening cardio-renal syndrome discussed w/ grandson Pedro, about poor prognosis but still want to proceed w/ dialysis Nutritional Asmnt/Malnutr-PDOC - Dietary Evaluation Malnutrition Findings (Please click <Entered> for more info): Nutritional Asmnt/Malnutrition Start: 05/15/17 13: 56 Text: Status: Complete Freq: Document 05/15/17 13:56 DARON (Rec: 05/15/17 14:18 DARON MELISSAFN) Nutritional Asmnt/Malnutrition Patient General Information Nutritional Screening High Risk Screening Diagnosis PNA, NICK, icnreasing renal failure, CVA, CHF, DM Pertinent Medical Hx/Surgical Hx CVA, dementia, afib, CAD, HTN, dyslipidemia, epilepsy, GERD, aspiration PNA, DM, CKD, dehydration, C. diff, anemia D Subjective Information 86 year old male from SNF. Pt greeted RD. Pt is overall thin , moderate to severe wasting to chest, clavicles, extremities. Observed Glytrol running at 60ml/hr x20hrs during visit. Unable to obtain CBW due to bedscale not calibrated. Discussed with YVETTE Farooq regarding tube feeding recommendations. Current Diet Order/ Nutrition Support Glytrol at 60ml/hr x 20hrs, providing 1200kcal 54g protein Pertinent Medications Lipitor, Novolog, Levemir, Cephulac, Morphine, Protonix, Nacl 0.9% Pertinent Labs 05/13: potassium 5.3H, BUN 80H, creatinine 2.4H, glucose 103 05/15: potassium WNL, BUN 70H, creatinine 2.4H, glucose 239H, A1c 6.1H, phosphorus 5.4H Nutritional Hx/Data Height 1.68 m Height (Calculated Centimeters) 167.6 Current Weight (lbs) 65.771 kg Weight (Calculated Kilograms) 65.8 Weight (Calculated Grams) 53352.9 [place] Body Weight 142 Weight Status Approriate GI Symptoms Difficult in: Swallowing Cultural/Ethnic/Hinduism Belief [facility]: Glucerna 1.2 at 85ml/hr x 20hrs, providing 2040kcal, promote weight gain. Skin Integrity/Comment: Gee Novak. Skin intact. Estimated Nutritional Goals Calories/Kcals/Kg CBW 145lb/65.9kg Kcals Calculated 1976-7kcal (30-35kcal/kg) Protein Calculated 46-92g (0.7-1.4g/kg, renal vs moderate to severe wasting) Fluid: ml Per MD (renal) Nutritional Problem 2. Problem Problem Impaired nutrient utilization related to Etiology NICK, hx CKD aeb Signs/Symptoms: "increasing renal failure," potaasum 5.3H on adm, BUN 70H, parquet floor layer's helper 2.4H, phosphorus 5.4H 1. Problem Problem Inadequate intake from enteral nutrition infusion related to Etiology estimated nutritional needs aeb Signs/Symptoms: providing to meet 61% lower end kcal needs Intervention/Recommendation Comments 1. Recommend Novasource Renal at 50ml/hr x 20hrs, providing 2000kcal and 91g protein. Current order Glytrol at 60ml/ hr x 20hrs is only providing 1200kcal, pt recieves 2040kcal at [facility]. Expected Outcomes/Goals Expected Outcomes/Goals 1. Pt to meet at least 100% of estimated nutritional needs on tube feeding with tolerance .
[2017-06-10 14:00] LABS: HEMATOCRIT 21.6 % (39.0-49.0); HEMOGLOBIN 7.2 gm/dL (12.6-17.4)
[2017-06-10] MEDS ORDERED: D5-0.45NS 1,000 ML IV SCH (14:21)
--- NOTE | 2017-06-10 15:57 | General Progress Note ---
Subjective - Review of Systems Service Date: 06/10/17 Subjective: s/p tracheostomy Objective - Results Result Diagrams: 06/10/17 13:45 06/10/17 04:45 Recent Labs: Laboratory Last Values WBC 9.9 Th/cmm (4.8-10.8) D 06/10/17 04:45 RBC 2.97 Mil/cmm (3.80-5.80) L 06/10/17 04:45 Hgb 7.2 gm/dL (12.6-17.4) L* D 06/10/17 13:45 Hct 21.6 % (39.0-49.0) L* D 06/10/17 13:45 MCV 84.3 fl (80-99) 06/10/17 04:45 MCH 28.6 pg (27.0-31.0) 06/10/17 04:45 MCHC Differential 33.9 pg (28.0-36.0) 06/10/17 04:45 RDW 16.1 % (11.5-20.0) 06/10/17 04:45 Plt Count 125 Th/cmm (150-400) L 06/10/17 04:45 MPV 13.8 fl 06/10/17 04:45 Neutrophils % 70.4 % (40.0-80.0) 06/08/17 06:05 Band Neutrophils % 4 % (0-10) 06/10/17 04:45 Lymphocytes % 12.5 % (20.0-50.0) L 06/08/17 06:05 Monocytes % 14.9 % (2.0-10.0) H 06/08/17 06:05 Eosinophils % 1.4 % (0.0-5.0) 06/08/17 06:05 Basophils % 0.8 % (0.0-2.0) 06/08/17 06:05 Neutrophils (Manual) 47 % (40-80) 06/10/17 04:45 Lymphocytes 19 % (20-50) L 06/10/17 04:45 Monocytes 22 % (2-10) H 06/10/17 04:45 Eosinophils 1 % (0-5) 06/10/17 04:45 Basophils 0 % (0-3) 05/24/17 04:49 Metamyelocytes 4 % (0-0) H 06/10/17 04:45 Myelocytes 2 % 06/10/17 04:45 Atypical Lymphocytes 1 % 06/10/17 04:45 Toxic Granulation 1+ 05/23/17 04:48 Platelet Estimate DECREASED PLATELETS (NORMAL) 06/10/17 04:45 Platelet Morphology GIANT PLATELETS SEEN (NORMAL) 06/10/17 04:45 Poikilocytosis 1+ 06/09/17 19:53 Anisocytosis 1+ 06/10/17 04:45 Target Cells 1+ 06/09/17 19:53 RBC Morph Micro Appear ABNORMAL (NORMAL) 06/10/17 04:45 Eos Smear Source URINE 05/14/17 18:00 Eos Smear Total Cells FEW EOSINOPHILS SEEN (NONE SEEN) 05/14/17 18:00 Plt Count 125 Th/cmm (150-750) L D 06/10/17 04:45 PT 12.7 SECONDS (9.5-11.5) H 06/10/17 04:45 INR 1.21 (0.5-1.4) 06/10/17 04:45 PTT (Actin FS) 33.4 SECONDS (26.0-38.0) 06/10/17 04:45 Fibrinogen 306.0 mg/dL (200.0-400.0) 06/10/17 04:45 D-Dimer 1900 ng/mL (100-400) H 06/10/17 04:45 Specimen Source Arterial 06/10/17 09:25 Sample Site Right Radial 06/10/17 09:25 pH 7.45 (7.35-7.45) 06/10/17 09:25 pCO2 44.0 mmHg (35.0-45.0) 06/10/17 09:25 pO2 63.0 mmHg (80.0-100.0) L 06/10/17 09:25 HCO3 29.3 mEq/L (20.0-26.0) H 06/10/17 09:25 Base Excess 5.8 mEq/L (-3.0-3.0) H 06/10/17 09:25 O2 Saturation 93.0 % (92.0-100.0) 06/10/17 09:25 Fel[place]o Test Positive 06/10/17 09:25 Vent Rate 4 06/10/17 09:25 Inspired O2 30 06/10/17 09:25 Tidal Volume 500 06/10/17 09:25 PEEP NA 06/10/17 09:25 Pressure (ins/psv/peep) 18 06/10/17 09:25 Critical Value LZHANG 06/10/17 09:25 Sodium 137 mEq/L (136-145) 06/10/17 04:45 Potassium 3.6 mEq/L (3.5-5.1) 06/10/17 04:45 Chloride 101 mEq/L (98-107) 06/10/17 04:45 Carbon Dioxide 28.0 mEq/L (21.0-31.0) 06/10/17 04:45 Anion Gap 11.6 (7.0-16.0) 06/10/17 04:45 BUN 42 mg/dL (7-25) H 06/10/17 04:45 Creatinine 2.6 mg/dL (0.7-1.3) H 06/10/17 04:45 Est GFR ( Amer) TNP 06/10/17 04:45 Est GFR (Non-Af Amer) TNP 06/10/17 04:45 BUN/Creatinine Ratio 16.2 06/10/17 04:45 Glucose 171 mg/dL (70-105) H 06/10/17 04:45 POC Glucose 233 MG/DL (70 - 105) H 06/10/17 11:03 Hemoglobin A1c % 6.1 % (4.0-6.0) H 05/15/17 06:30 Plasma/Ser Osmolality 301 mOsmol/kg (280-301) 05/14/17 18:20 Whole Bld Lactic Acid 1.58 mmol/L (0.60-1.99) 05/13/17 17:42 Uric Acid 7.7 mg/dL (4.4-7.6) H 05/15/17 06:30 Calcium 9.0 mg/dL (8.6-10.3) 06/10/17 04:45 Phosphorus 2.7 mg/dL (2.5-5.0) 06/09/17 04:50 Magnesium 2.4 mg/dL (1.9-2.7) 06/09/17 04:50 Iron 70 ug/dL (38-169) 06/04/17 04:47 TIBC 94 ug/dL (250-450) L 06/04/17 04:47 Iron Saturation 74 % (15-55) H 06/04/17 04:47 Unsaturated IBC 24 ug/dL (111-343) L 06/04/17 04:47 Ferritin 351 ng/mL (30-400) 06/03/17 04:48 Total Bilirubin 11.5 mg/dL (0.3-1.0) H 06/10/17 04:45 Direct Bilirubin 3.83 mg/dL (0.0-0.2) H 06/07/17 04:40 AST 344 U/L (13-39) H 06/10/17 04:45 ALT 38 U/L (7-52) 06/10/17 04:45 Alkaline Phosphatase 1942 U/L (34-104) H 06/10/17 04:45 Ammonia 47 umol/L (16-53) 06/08/17 14:08 Creatine Kinase 35 U/L (30-223) 05/16/17 23:06 Troponin I 0.02 ng/mL (0.01-0.05) 05/16/17 23:06 B-Natriuretic Peptide 1480.0 pg/mL (5.0-100.0) H 06/05/17 04:42 Total Protein 5.7 gm/dL (6.0-8.3) L 06/10/17 04:45 Albumin 3.4 gm/dL (4.2-5.5) L 06/10/17 04:45 Globulin 2.3 gm/dL 06/10/17 04:45 Albumin/Globulin Ratio 1.5 (1.0-1.8) 06/10/17 04:45 Prealbumin 6 mg/dL (9-32) L 06/04/17 04:47 Triglycerides 60 mg/dL (<150) 06/04/17 04:47 Cholesterol 63 mg/dL (<200) 06/04/17 04:47 Vitamin B12 >1999 pg/mL (211-946) H 06/04/17 04:47 Folic Acid >20.0 ng/mL (>3.0) 06/04/17 04:47 TSH 2.74 uIU/ml (0.34-5.60) 05/15/17 06:30 Urine Source CATH 06/06/17 10:30 Urine Color YELLOW 06/06/17 10:30 Urine Clarity SL. CLOUDY (CLEAR) 06/06/17 10:30 Urine pH 5.0 (4.6 - 8.0) 06/06/17 10:30 Ur Specific Roulette 1.025 (1.005-1.030) 06/06/17 10:30 Urine Protein 100 mg/dL (NEGATIVE) H 06/06/17 10:30 Urine Glucose (UA) NEGATIVE mg/dL (NEGATIVE) 06/06/17 10:30 Urine Ketones NEGATIVE mg/dL (NEGATIVE) 06/06/17 10:30 Urine Blood LARGE (NEGATIVE) H 06/06/17 10:30 Urine Nitrate NEGATIVE (NEGATIVE) 06/06/17 10:30 Urine Bilirubin SMALL (NEGATIVE) H 06/06/17 10:30 Urine Urobilinogen 0.2 E.U./dL (0.2 - 1.0) 06/06/17 10:30 Ur Leukocyte Esterase LARGE (NEGATIVE) H 06/06/17 10:30 Urine RBC 20-30 /hpf (0-5) 06/06/17 10:30 Urine WBC 10-25 /hpf (0-5) H 06/06/17 10:30 Ur Epithelial Cells RARE /lpf (FEW) 06/06/17 10:30 Urine Bacteria f /hpf (NONE SEEN) 06/06/17 10:30 Urine Yeast MODERATE /hpf (NONE SEEN) H 06/06/17 10:30 Ur Random Sodium 30 mmol/L 05/14/17 18:00 Urine Creatinine 36.4 mg/dl (Not Estab.) 05/14/17 18:00 Urine Microalbumin 363.5 ug/mL (Not Estab.) 05/14/17 18:00 Microalb/Creat Ratio 998.6 mg/g creat (0.0-30.0) H 05/14/17 18:00 Stool Occult Blood NEGATIVE (NEGATIVE) 05/25/17 17:49 Random Vancomycin 19.1 ug/mL (5.0-40.0) 05/19/17 04:50 Acetaminophen < 10.0 ug/mL (10.0-30.0) L 06/07/17 04:40 Hepatitis A IgM Ab Negative (Negative) 05/21/17 04:46 Hep Bs Antigen Negative (Negative) 05/21/17 04:46 Hep B Core IgM Ab Negative (Negative) 05/21/17 04:46 Hepatitis C Antibody 0.1 s/co ratio (0.0-0.9) 05/21/17 04:46 Blood Type B POSITIVE 06/04/17 04:47 Antibody Screen NEGATIVE 06/04/17 04:47 Crossmatch See Detail 05/21/17 10:19 - Physical Exam Vitals and I&O: Vital Signs Temp 98.6 F 06/10/17 14:00 Pulse 106 06/10/17 15:33 Resp 21 06/10/17 15:00 BP 106/56 06/10/17 15:33 Pulse Ox 97 06/10/17 15:00 Intake & Output 06/09/17 06/10/17 06/10/17 18:59 06:59 18:59 Intake Total 799 890 Output Total 1275 50 Balance -476 840 Weight (lbs) 68.674 kg 68.175 kg Intake: Intake, IV Amount 50 150 Piperacillin Sodium/ 50 150 Tazobact 2.25 gm In Sodium Chloride 0.9% 50 ml @ 100 mls/hr IV Q6HR [facility] Rx#:[id number] Oral 0 Tube Feeding 249 540 Albumin 200 Other 300 200 Output: Urine 75 50 Hemodialysis 1200 Other: # Bowel Movements 0 Stool Characteristics Liquid Brown Active Medications: Current Medications Acetaminophen (Tylenol) 650 mg PO Q4HR PRN PRN Reason: Pain Or Fever above 101 Stop: 07/14/17 15:15 Last Admin: 06/09/17 18:51 Dose: 650 mg Albuterol/Ipratropium (Duoneb Neb) 3 ml HHN Q4HRT [facility] Stop: 07/19/17 14:59 Last Admin: 06/10/17 12:19 Dose: 3 ml Budesonide (Pulmicort) 1 mg HHN BIDRT [facility] Stop: 07/19/17 18:59 Last Admin: 06/10/17 07:57 Dose: 1 mg Calamine/Phenol (Calmoseptine) 1 appl TP QID PRN PRN Reason: Skin Irritation Stop: 08/03/17 12:28 Last Admin: 06/07/17 21:00 Dose: 1 appl Calamine/Phenol (Calmoseptine) 1 appl TP QID [facility] Stop: 08/03/17 12:59 Last Admin: 06/10/17 14:43 Dose: 1 appl Carbidopa/Levodopa (Sinemet 25mg-100 Mg) 1 tab PO TID YESSICA Stop: 07/14/17 08:59 Last Admin: 06/10/17 14:31 Dose: 1 tab Chlorhexidine Gluconate (Peridex) 15 ml MM 0800,2000 YESSICA Stop: 07/23/17 19:59 Last Admin: 06/10/17 07:47 Dose: 15 ml Clonidine HCl (Catapres) 0.1 mg PO Q6HR PRN PRN Reason: BP MAINTENANCE (PER PROTOCOL) Stop: 07/28/17 13:31 Last Admin: 05/29/17 21:04 Dose: 0.1 mg Dextrose (D50w) 50 ml IVP PRN PRN; Protocol PRN Reason: HYPOGLYCEMIA Stop: 07/20/17 00:54 Last Admin: 05/22/17 23:34 Dose: 50 ml Diltiazem HCl (Cardizem) 10 mg IVP Q6HR PRN PRN Reason: HR >130 Stop: 07/22/17 17:09 Last Admin: 05/24/17 04:21 Dose: 10 mg Hydralazine HCl (Apresoline 20 Mg/Ml) 10 mg IV Q6HR PRN PRN Reason: BP MAINTENANCE (PER PROTOCOL) Stop: 07/30/17 13:09 Last Admin: 06/06/17 12:30 Dose: 10 mg Norepinephrine Bitartrate 8 mg (/ Dextrose) 258 mls @ 0 mls/hr IV TITR PRN; Protocol; Titrate PRN Reason: BP MAINTENANCE (PER PROTOCOL) Stop: 07/19/17 12:29 Last Admin: 05/21/17 01:06 Dose: 10 mcg/min, 19.35 mls/hr Phenylephrine HCl 10 mg/ (Sodium Chloride) 250 mls @ 0 mls/hr IV TITR YESSICA; Per Protocol PRN Reason: Protocol Stop: 07/19/17 12:59 Piperacillin Sod/Tazobactam (Sod 2.25 gm/ Sodium Chloride) 50 mls @ 100 mls/hr IV Q6HR YESSICA Stop: 08/05/17 11:59 Last Admin: 06/10/17 11:13 Dose: 100 mls/hr Norepinephrine Bitartrate 4 mg (/ Dextrose) 254 mls @ 0 mls/hr IV TITR PRN; Protocol; Per Protocol PRN Reason: BP MAINTENANCE (PER PROTOCOL) Stop: 08/07/17 10:48 Albumin Human (Albuminar 25%) 25 gm in 100 mls @ 50 mls/hr IV X1 ONE Stop: 06/11/17 15:59 Albumin Human (Albuminar 25%) 25 gm in 100 mls @ 50 mls/hr IV X1 ONE Stop: 06/11/17 15:59 Dextrose/Sodium Chloride (D5-0.45ns) 1,000 mls @ 60 mls/hr IV .[id number] [facility] Stop: 08/09/17 14:20 Insulin Aspart (Novolog Insulin Sliding Scale) 0 units SUBQ Q6HR YESSICA PRN Reason: Protocol Stop: 07/14/17 00:00 Last Admin: 06/10/17 11:15 Dose: 2 units Isosorbide Dinitrate (Isordil) 20 mg GT TID [facility] Stop: 07/28/17 13:33 Last Admin: 06/10/17 15:33 Dose: Not Given Lactobacillus Rhamnosus (Culturelle) 1 each PO DAILY [facility] Stop: 07/17/17 08:59 Last Admin: 06/10/17 09:43 Dose: 1 each Metoclopramide HCl (Reglan) 5 mg IVP TID [facility] Stop: 07/20/17 20:59 Last Admin: 06/10/17 14:31 Dose: 5 mg Metoprolol Tartrate (Lopressor) 50 mg GT Q8H [facility] Stop: 07/18/17 08:59 Last Admin: 06/10/17 09:50 Dose: 50 mg Miscellaneous (Vte Chemical Prophylaxis Screen/ Admission) 1 ea MC PRN PRN PRN Reason: PROTOCOL Stop: 07/14/17 09:25 Miscellaneous (Clinical Monitoring) 1 ea MC DAILY PRN PRN Reason: RENAL Stop: 07/15/17 12:32 Miscellaneous (Probiotic Screen) 1 ea MC PRN PRN PRN Reason: PROTOCOL Stop: 07/16/17 09:33 Morphine Sulfate (Morphine) 1 mg IVP Q4HR PRN PRN Reason: Pain (Moderate) Stop: 08/06/17 15:02 Last Admin: 06/10/17 00:18 Dose: 1 mg Pantoprazole Sodium (Protonix) 40 mg GT DAILY [facility] Stop: 07/14/17 08:59 Last Admin: 06/10/17 09:43 Dose: 40 mg Physical Exam: intubated getting HD No bleeding General: No acute distress, no Alert HEENT: EOMI, Other (bleeding out of tracheostomy site), no Atraumatic Neck: Supple, +2 carotid pulse wo bruit, Other (trach) Cardiovascular: Regular rate, Normal S1, Normal S2 Lungs: Other (rhonchi bilaterally) Abdomen: Soft, no Tender Extremities: no Edema (no edema) Neurological: Sensation intact, Other (opens eyes upon verbal command) Skin: Rash Psych/Mental Status: Mood NL - Procedures Procedures: Procedures Procedure Code Date BYPASS TRACHEA TO CUTANEOUS WITH TRACH DEV, OPEN APPROACH [id number] 05/13/17 INCISION OF WINDPIPE 16733 05/13/17 INSERT EMERGENCY AIRWAY 68501 05/13/17 INSERT TUNNELED CV CATH 94336 05/13/17 INSERTION OF ENDOTRACHEAL AIRWAY INTO TRACHEA, VIA OPENING [id number] 05/13/17 INSERTION OF INFUSION DEV INTO R FEMOR VEIN, PERC APPROACH [id number] 05/13/17 RESPIRATORY VENTILATION, GREATER THAN 96 CONSECUTIVE HOURS [id number] 05/13/17 VENT MGMT INPAT INIT DAY 22740 05/13/17 Assessment/Plan - Problem List Patient Problems: All Active Problems COUGH AND CONGESTION (Acute) Congestive heart failure (CHF) (Acute) I50.9 congestive heart failure (Acute) hypertension uncontrolled with bradycarda (Acute) renal failure (Acute) - Assessment Assessment: * DIC * RESPIRATORY FAILURE *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 Trach was reviewed and bleeding stoped Nutritional Asmnt/Malnutr-PDOC - Dietary Evaluation Malnutrition Findings (Please click <Entered> for more info): Nutritional Asmnt/Malnutrition Start: 05/15/17 13: 56 Text: Status: Complete Freq: Document 05/15/17 13:56 GSUN (Rec: 05/15/17 14:18 GSUN [email or web address]) Nutritional Asmnt/Malnutrition Patient General Information Nutritional Screening High Risk Screening Diagnosis PNA, NICK, icnreasing renal failure, CVA, CHF, DM Pertinent Medical Hx/Surgical Hx CVA, dementia, afib, CAD, HTN, dyslipidemia, epilepsy, GERD, aspiration PNA, DM, CKD, dehydration, C. diff, anemia D Subjective Information 86 year old male from SNF. Pt greeted RD. Pt is overall thin , moderate to severe wasting to chest, clavicles, extremities. Observed Glytrol running at 60ml/hr x20hrs during visit. Unable to obtain CBW due to bedscale not calibrated. Discussed with YVETTE Farooq regarding tube feeding recommendations. Current Diet Order/ Nutrition Support Glytrol at 60ml/hr x 20hrs, providing 1200kcal 54g protein Pertinent Medications Lipitor, Novolog, Levemir, Cephulac, Morphine, Protonix, Nacl 0.9% Pertinent Labs 05/13: potassium 5.3H, BUN 80H, creatinine 2.4H, glucose 103 05/15: potassium WNL, BUN 70H, creatinine 2.4H, glucose 239H, A1c 6.1H, phosphorus 5.4H Nutritional Hx/Data Height 1.68 m Height (Calculated Centimeters) 167.6 Current Weight (lbs) 65.771 kg Weight (Calculated Kilograms) 65.8 Weight (Calculated Grams) 06258.9 [place] Body Weight 142 Weight Status Approriate GI Symptoms Difficult in: Swallowing Cultural/Ethnic/Tenriism Belief [facility]: Glucerna 1.2 at 85ml/hr x 20hrs, providing 2040kcal, promote weight gain. Skin Integrity/Comment: Gee 12. Skin intact. Estimated Nutritional Goals Calories/Kcals/Kg CBW 145lb/65.9kg Kcals Calculated 1976-2307kcal (30-35kcal/kg) Protein Calculated 46-92g (0.7-1.4g/kg, renal vs moderate to severe wasting) Fluid: ml Per MD (renal) Nutritional Problem 2. Problem Problem Impaired nutrient utilization related to Etiology NICK, hx CKD aeb Signs/Symptoms: "increasing renal failure," potaasum 5.3H on adm, BUN 70H, water softener installer 2.4H, phosphorus 5.4H 1. Problem Problem Inadequate intake from enteral nutrition infusion related to Etiology estimated nutritional needs aeb Signs/Symptoms: providing to meet 61% lower end kcal needs Intervention/Recommendation Comments 1. Recommend Novasource Renal at 50ml/hr x 20hrs, providing 2000kcal and 91g protein. Current order Glytrol at 60ml/ hr x 20hrs is only providing 1200kcal, pt recieves 2040kcal at [facility]. Expected Outcomes/Goals Expected Outcomes/Goals 1. Pt to meet at least 100% of estimated nutritional needs on tube feeding with tolerance .
--- NOTE | 2017-06-10 16:55 | General Progress Note ---
Subjective - Review of Systems Service Date: 06/10/17 Subjective: Patient seen and examined patient started have trach site bleeding this am evaluated by DR ISIDRO (surgery) trach was repositioned per nursing staff bleeding has stopped Objective - Results Result Diagrams: 06/10/17 13:45 06/10/17 04:45 Recent Labs: Laboratory Last Values WBC 9.9 Th/cmm (4.8-10.8) D 06/10/17 04:45 RBC 2.97 Mil/cmm (3.80-5.80) L 06/10/17 04:45 Hgb 7.2 gm/dL (12.6-17.4) L* D 06/10/17 13:45 Hct 21.6 % (39.0-49.0) L* D 06/10/17 13:45 MCV 84.3 fl (80-99) 06/10/17 04:45 MCH 28.6 pg (27.0-31.0) 06/10/17 04:45 MCHC Differential 33.9 pg (28.0-36.0) 06/10/17 04:45 RDW 16.1 % (11.5-20.0) 06/10/17 04:45 Plt Count 125 Th/cmm (150-400) L 06/10/17 04:45 MPV 13.8 fl 06/10/17 04:45 Neutrophils % 70.4 % (40.0-80.0) 06/08/17 06:05 Band Neutrophils % 4 % (0-10) 06/10/17 04:45 Lymphocytes % 12.5 % (20.0-50.0) L 06/08/17 06:05 Monocytes % 14.9 % (2.0-10.0) H 06/08/17 06:05 Eosinophils % 1.4 % (0.0-5.0) 06/08/17 06:05 Basophils % 0.8 % (0.0-2.0) 06/08/17 06:05 Neutrophils (Manual) 47 % (40-80) 06/10/17 04:45 Lymphocytes 19 % (20-50) L 06/10/17 04:45 Monocytes 22 % (2-10) H 06/10/17 04:45 Eosinophils 1 % (0-5) 06/10/17 04:45 Basophils 0 % (0-3) 05/24/17 04:49 Metamyelocytes 4 % (0-0) H 06/10/17 04:45 Myelocytes 2 % 06/10/17 04:45 Atypical Lymphocytes 1 % 06/10/17 04:45 Toxic Granulation 1+ 05/23/17 04:48 Platelet Estimate DECREASED PLATELETS (NORMAL) 06/10/17 04:45 Platelet Morphology GIANT PLATELETS SEEN (NORMAL) 06/10/17 04:45 Poikilocytosis 1+ 06/09/17 19:53 Anisocytosis 1+ 06/10/17 04:45 Target Cells 1+ 06/09/17 19:53 RBC Morph Micro Appear ABNORMAL (NORMAL) 06/10/17 04:45 Eos Smear Source URINE 05/14/17 18:00 Eos Smear Total Cells FEW EOSINOPHILS SEEN (NONE SEEN) 05/14/17 18:00 Plt Count 125 Th/cmm (150-750) L D 06/10/17 04:45 PT 12.7 SECONDS (9.5-11.5) H 06/10/17 04:45 INR 1.21 (0.5-1.4) 06/10/17 04:45 PTT (Actin FS) 33.4 SECONDS (26.0-38.0) 06/10/17 04:45 Fibrinogen 306.0 mg/dL (200.0-400.0) 06/10/17 04:45 D-Dimer 1900 ng/mL (100-400) H 06/10/17 04:45 Specimen Source Arterial 06/10/17 09:25 Sample Site Right Radial 06/10/17 09:25 pH 7.45 (7.35-7.45) 06/10/17 09:25 pCO2 44.0 mmHg (35.0-45.0) 06/10/17 09:25 pO2 63.0 mmHg (80.0-100.0) L 06/10/17 09:25 HCO3 29.3 mEq/L (20.0-26.0) H 06/10/17 09:25 Base Excess 5.8 mEq/L (-3.0-3.0) H 06/10/17 09:25 O2 Saturation 93.0 % (92.0-100.0) 06/10/17 09:25 Feliciano Test Positive 06/10/17 09:25 Vent Rate 4 06/10/17 09:25 Inspired O2 30 06/10/17 09:25 Tidal Volume 500 06/10/17 09:25 PEEP NA 06/10/17 09:25 Pressure (ins/psv/peep) 18 06/10/17 09:25 Critical Value LZHANG 06/10/17 09:25 Sodium 137 mEq/L (136-145) 06/10/17 04:45 Potassium 3.6 mEq/L (3.5-5.1) 06/10/17 04:45 Chloride 101 mEq/L (98-107) 06/10/17 04:45 Carbon Dioxide 28.0 mEq/L (21.0-31.0) 06/10/17 04:45 Anion Gap 11.6 (7.0-16.0) 06/10/17 04:45 BUN 42 mg/dL (7-25) H 06/10/17 04:45 Creatinine 2.6 mg/dL (0.7-1.3) H 06/10/17 04:45 Est GFR ( Amer) TNP 06/10/17 04:45 Est GFR (Non-Af Amer) TNP 06/10/17 04:45 BUN/Creatinine Ratio 16.2 06/10/17 04:45 Glucose 171 mg/dL (70-105) H 06/10/17 04:45 POC Glucose 233 MG/DL (70 - 105) H 06/10/17 11:03 Hemoglobin A1c % 6.1 % (4.0-6.0) H 05/15/17 06:30 Plasma/Ser Osmolality 301 mOsmol/kg (280-301) 05/14/17 18:20 Whole Bld Lactic Acid 1.58 mmol/L (0.60-1.99) 05/13/17 17:42 Uric Acid 7.7 mg/dL (4.4-7.6) H 05/15/17 06:30 Calcium 9.0 mg/dL (8.6-10.3) 06/10/17 04:45 Phosphorus 2.7 mg/dL (2.5-5.0) 06/09/17 04:50 Magnesium 2.4 mg/dL (1.9-2.7) 06/09/17 04:50 Iron 70 ug/dL (38-169) 06/04/17 04:47 TIBC 94 ug/dL (250-450) L 06/04/17 04:47 Iron Saturation 74 % (15-55) H 06/04/17 04:47 Unsaturated IBC 24 ug/dL (111-343) L 06/04/17 04:47 Ferritin 351 ng/mL (30-400) 06/03/17 04:48 Total Bilirubin 11.5 mg/dL (0.3-1.0) H 06/10/17 04:45 Direct Bilirubin 3.83 mg/dL (0.0-0.2) H 06/07/17 04:40 AST 344 U/L (13-39) H 06/10/17 04:45 ALT 38 U/L (7-52) 06/10/17 04:45 Alkaline Phosphatase 1942 U/L (34-104) H 06/10/17 04:45 Ammonia 47 umol/L (16-53) 06/08/17 14:08 Creatine Kinase 35 U/L (30-223) 05/16/17 23:06 Troponin I 0.02 ng/mL (0.01-0.05) 05/16/17 23:06 B-Natriuretic Peptide 1480.0 pg/mL (5.0-100.0) H 06/05/17 04:42 Total Protein 5.7 gm/dL (6.0-8.3) L 06/10/17 04:45 Albumin 3.4 gm/dL (4.2-5.5) L 06/10/17 04:45 Globulin 2.3 gm/dL 06/10/17 04:45 Albumin/Globulin Ratio 1.5 (1.0-1.8) 06/10/17 04:45 Prealbumin 6 mg/dL (9-32) L 06/04/17 04:47 Triglycerides 60 mg/dL (<150) 06/04/17 04:47 Cholesterol 63 mg/dL (<200) 06/04/17 04:47 Vitamin B12 >1999 pg/mL (211-946) H 06/04/17 04:47 Folic Acid >20.0 ng/mL (>3.0) 06/04/17 04:47 TSH 2.74 uIU/ml (0.34-5.60) 05/15/17 06:30 Urine Source CATH 06/06/17 10:30 Urine Color YELLOW 06/06/17 10:30 Urine Clarity SL. CLOUDY (CLEAR) 06/06/17 10:30 Urine pH 5.0 (4.6 - 8.0) 06/06/17 10:30 Ur Specific Riva 1.025 (1.005-1.030) 06/06/17 10:30 Urine Protein 100 mg/dL (NEGATIVE) H 06/06/17 10:30 Urine Glucose (UA) NEGATIVE mg/dL (NEGATIVE) 06/06/17 10:30 Urine Ketones NEGATIVE mg/dL (NEGATIVE) 06/06/17 10:30 Urine Blood LARGE (NEGATIVE) H 06/06/17 10:30 Urine Nitrate NEGATIVE (NEGATIVE) 06/06/17 10:30 Urine Bilirubin SMALL (NEGATIVE) H 06/06/17 10:30 Urine Urobilinogen 0.2 E.U./dL (0.2 - 1.0) 06/06/17 10:30 Ur Leukocyte Esterase LARGE (NEGATIVE) H 06/06/17 10:30 Urine RBC 20-30 /hpf (0-5) 06/06/17 10:30 Urine WBC 10-25 /hpf (0-5) H 06/06/17 10:30 Ur Epithelial Cells RARE /lpf (FEW) 06/06/17 10:30 Urine Bacteria f /hpf (NONE SEEN) 06/06/17 10:30 Urine Yeast MODERATE /hpf (NONE SEEN) H 06/06/17 10:30 Ur Random Sodium 30 mmol/L 05/14/17 18:00 Urine Creatinine 36.4 mg/dl (Not Estab.) 05/14/17 18:00 Urine Microalbumin 363.5 ug/mL (Not Estab.) 05/14/17 18:00 Microalb/Creat Ratio 998.6 mg/g creat (0.0-30.0) H 05/14/17 18:00 Stool Occult Blood NEGATIVE (NEGATIVE) 05/25/17 17:49 Random Vancomycin 19.1 ug/mL (5.0-40.0) 05/19/17 04:50 Acetaminophen < 10.0 ug/mL (10.0-30.0) L 06/07/17 04:40 Hepatitis A IgM Ab Negative (Negative) 05/21/17 04:46 Hep Bs Antigen Negative (Negative) 05/21/17 04:46 Hep B Core IgM Ab Negative (Negative) 05/21/17 04:46 Hepatitis C Antibody 0.1 s/co ratio (0.0-0.9) 05/21/17 04:46 Blood Type B POSITIVE 06/10/17 14:17 Antibody Screen NEGATIVE 06/10/17 14:17 Crossmatch See Detail 05/21/17 10:19 - Physical Exam Vitals and I&O: Vital Signs Temp 98.6 F 06/10/17 14:00 Pulse 110 06/10/17 15:59 Resp 21 06/10/17 15:00 BP 106/56 06/10/17 15:33 Pulse Ox 98 06/10/17 15:59 Intake & Output 06/09/17 06/10/17 06/10/17 18:59 06:59 18:59 Intake Total 799 890 Output Total 1275 50 Balance -476 840 Weight (lbs) 68.674 kg 68.175 kg Intake: Intake, IV Amount 50 150 Piperacillin Sodium/ 50 150 Tazobact 2.25 gm In Sodium Chloride 0.9% 50 ml @ 100 mls/hr IV Q6HR [facility] Rx#:[id number] Oral 0 Tube Feeding 249 540 Albumin 200 Other 300 200 Output: Urine 75 50 Hemodialysis 1200 Other: # Bowel Movements 0 Stool Characteristics Liquid Brown Active Medications: Current Medications Acetaminophen (Tylenol) 650 mg PO Q4HR PRN PRN Reason: Pain Or Fever above 101 Stop: 07/14/17 15:15 Last Admin: 06/09/17 18:51 Dose: 650 mg Albuterol/Ipratropium (Duoneb Neb) 3 ml HHN Q4HRT [facility] Stop: 07/19/17 14:59 Last Admin: 06/10/17 16:03 Dose: 3 ml Budesonide (Pulmicort) 1 mg HHN BIDRT [facility] Stop: 07/19/17 18:59 Last Admin: 06/10/17 07:57 Dose: 1 mg Calamine/Phenol (Calmoseptine) 1 appl TP QID PRN PRN Reason: Skin Irritation Stop: 08/03/17 12:28 Last Admin: 06/07/17 21:00 Dose: 1 appl Calamine/Phenol (Calmoseptine) 1 appl TP QID [facility] Stop: 08/03/17 12:59 Last Admin: 06/10/17 14:43 Dose: 1 appl Carbidopa/Levodopa (Sinemet 25mg-100 Mg) 1 tab PO TID YESSICA Stop: 07/14/17 08:59 Last Admin: 06/10/17 14:31 Dose: 1 tab Chlorhexidine Gluconate (Peridex) 15 ml MM 0800,2000 YESSICA Stop: 07/23/17 19:59 Last Admin: 06/10/17 07:47 Dose: 15 ml Clonidine HCl (Catapres) 0.1 mg PO Q6HR PRN PRN Reason: BP MAINTENANCE (PER PROTOCOL) Stop: 07/28/17 13:31 Last Admin: 05/29/17 21:04 Dose: 0.1 mg Dextrose (D50w) 50 ml IVP PRN PRN; Protocol PRN Reason: HYPOGLYCEMIA Stop: 07/20/17 00:54 Last Admin: 05/22/17 23:34 Dose: 50 ml Diltiazem HCl (Cardizem) 10 mg IVP Q6HR PRN PRN Reason: HR >130 Stop: 07/22/17 17:09 Last Admin: 05/24/17 04:21 Dose: 10 mg Hydralazine HCl (Apresoline 20 Mg/Ml) 10 mg IV Q6HR PRN PRN Reason: BP MAINTENANCE (PER PROTOCOL) Stop: 07/30/17 13:09 Last Admin: 06/06/17 12:30 Dose: 10 mg Norepinephrine Bitartrate 8 mg (/ Dextrose) 258 mls @ 0 mls/hr IV TITR PRN; Protocol; Titrate PRN Reason: BP MAINTENANCE (PER PROTOCOL) Stop: 07/19/17 12:29 Last Admin: 05/21/17 01:06 Dose: 10 mcg/min, 19.35 mls/hr Phenylephrine HCl 10 mg/ (Sodium Chloride) 250 mls @ 0 mls/hr IV TITR YESSICA; Per Protocol PRN Reason: Protocol Stop: 07/19/17 12:59 Piperacillin Sod/Tazobactam (Sod 2.25 gm/ Sodium Chloride) 50 mls @ 100 mls/hr IV Q6HR YESSICA Stop: 08/05/17 11:59 Last Admin: 06/10/17 11:13 Dose: 100 mls/hr Norepinephrine Bitartrate 4 mg (/ Dextrose) 254 mls @ 0 mls/hr IV TITR PRN; Protocol; Per Protocol PRN Reason: BP MAINTENANCE (PER PROTOCOL) Stop: 08/07/17 10:48 Albumin Human (Albuminar 25%) 25 gm in 100 mls @ 50 mls/hr IV X1 ONE Stop: 06/11/17 15:59 Albumin Human (Albuminar 25%) 25 gm in 100 mls @ 50 mls/hr IV X1 ONE Stop: 06/11/17 15:59 Dextrose/Sodium Chloride (D5-0.45ns) 1,000 mls @ 60 mls/hr IV .[id number] [facility] Stop: 08/09/17 14:20 Insulin Aspart (Novolog Insulin Sliding Scale) 0 units SUBQ Q6HR YESSICA PRN Reason: Protocol Stop: 07/14/17 00:00 Last Admin: 06/10/17 11:15 Dose: 2 units Isosorbide Dinitrate (Isordil) 20 mg GT TID [facility] Stop: 07/28/17 13:33 Last Admin: 06/10/17 15:33 Dose: Not Given Lactobacillus Rhamnosus (Culturelle) 1 each PO DAILY [facility] Stop: 07/17/17 08:59 Last Admin: 06/10/17 09:43 Dose: 1 each Metoclopramide HCl (Reglan) 5 mg IVP TID [facility] Stop: 07/20/17 20:59 Last Admin: 06/10/17 14:31 Dose: 5 mg Metoprolol Tartrate (Lopressor) 50 mg GT Q8H [facility] Stop: 07/18/17 08:59 Last Admin: 06/10/17 09:50 Dose: 50 mg Miscellaneous (Vte Chemical Prophylaxis Screen/ Admission) 1 ea MC PRN PRN PRN Reason: PROTOCOL Stop: 07/14/17 09:25 Miscellaneous (Clinical Monitoring) 1 ea MC DAILY PRN PRN Reason: RENAL Stop: 07/15/17 12:32 Miscellaneous (Probiotic Screen) 1 ea MC PRN PRN PRN Reason: PROTOCOL Stop: 07/16/17 09:33 Morphine Sulfate (Morphine) 1 mg IVP Q4HR PRN PRN Reason: Pain (Moderate) Stop: 08/06/17 15:02 Last Admin: 06/10/17 00:18 Dose: 1 mg Pantoprazole Sodium (Protonix) 40 mg GT DAILY YESSICA Stop: 07/14/17 08:59 Last Admin: 06/10/17 09:43 Dose: 40 mg General: Alert, No acute distress HEENT: Atraumatic Neck: Other ( trach site no bleeding noted) Cardiovascular: Other (mild tachycardia) Lungs: Other (rhonchi bilaterally) Abdomen: Soft, no Tender Extremities: no Edema (no edema) Neurological: Other (seems more awake) - Procedures Procedures: Procedures Procedure Code Date BYPASS TRACHEA TO CUTANEOUS WITH TRACH DEV, OPEN APPROACH [id number] 05/13/17 INCISION OF WINDPIPE 40221 05/13/17 INSERT EMERGENCY AIRWAY 04306 05/13/17 INSERT TUNNELED CV CATH 06639 05/13/17 INSERTION OF ENDOTRACHEAL AIRWAY INTO TRACHEA, VIA OPENING [id number] 05/13/17 INSERTION OF INFUSION DEV INTO R FEMOR VEIN, PERC APPROACH [id number] 05/13/17 RESPIRATORY VENTILATION, GREATER THAN 96 CONSECUTIVE HOURS [id number] 05/13/17 VENT MGMT INPAT INIT DAY 66235 05/13/17 Assessment/Plan - Problem List Patient Problems: All Active Problems COUGH AND CONGESTION (Acute) Congestive heart failure (CHF) (Acute) I50.9 congestive heart failure (Acute) hypertension uncontrolled with bradycarda (Acute) renal failure (Acute) - Assessment Assessment: Current Active Problems Problem Status Onset COUGH AND CONGESTION Acute Trach site bleeding stable vent dependant respiratory failure s/p trach ESRD on HD MDRO Pneumonia Afib RVR UTI CAD DIC 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 Treatment per general surgery Heparin on hold Metoprolol Antibiotics ID rec Continue vent support PPN started for nutritional support Hold tube feeding IV Fluids low dose Plan of care discussed with nursing staff Family was at the bedside I updated them on pts condition and plan of care Overall prognosis is poor LTAC DC planing in progress Nutritional Asmnt/Malnutr-PDOC - Dietary Evaluation Malnutrition Findings (Please click <Entered> for more info): Nutritional Asmnt/Malnutrition Start: 05/15/17 13: 56 Text: Status: Complete Freq: Document 05/15/17 13:56 DARON (Rec: 05/15/17 14:18 GSTHALIA [email or web address]) Nutritional Asmnt/Malnutrition Patient General Information Nutritional Screening High Risk Screening Diagnosis PNA, NICK, icnreasing renal failure, CVA, CHF, DM Pertinent Medical Hx/Surgical Hx CVA, dementia, afib, CAD, HTN, dyslipidemia, epilepsy, GERD, aspiration PNA, DM, CKD, dehydration, C. diff, anemia D Subjective Information 86 year old male from SNF. Pt greeted RD. Pt is overall thin , moderate to severe wasting to chest, clavicles, extremities. Observed Glytrol running at 60ml/hr x20hrs during visit. Unable to obtain CBW due to bedscale not calibrated. Discussed with YVETTE Farooq regarding tube feeding recommendations. Current Diet Order/ Nutrition Support Glytrol at 60ml/hr x 20hrs, providing 1200kcal 54g protein Pertinent Medications Lipitor, Novolog, Levemir, Cephulac, Morphine, Protonix, Nacl 0.9% Pertinent Labs 05/13: potassium 5.3H, BUN 80H, creatinine 2.4H, glucose 103 05/15: potassium WNL, BUN 70H, creatinine 2.4H, glucose 239H, A1c 6.1H, phosphorus 5.4H Nutritional Hx/Data Height 1.68 m Height (Calculated Centimeters) 167.6 Current Weight (lbs) 65.771 kg Weight (Calculated Kilograms) 65.8 Weight (Calculated Grams) 62387.9 [place] Body Weight 142 Weight Status Approriate GI Symptoms Difficult in: Swallowing Cultural/[facility] [place] [facility]: Glucerna 1.2 at 85ml/hr x 20hrs, providing 2040kcal, promote weight gain. Skin Integrity/Comment: Gee 12. Skin intact. Estimated Nutritional Goals Calories/Kcals/Kg CBW 145lb/65.9kg Kcals Calculated 1976-7kcal (30-35kcal/kg) Protein Calculated 46-92g (0.7-1.4g/kg, renal vs moderate to severe wasting) Fluid: ml Per MD (renal) Nutritional Problem 2. Problem Problem Impaired nutrient utilization related to Etiology NICK, hx CKD aeb Signs/Symptoms: "increasing renal failure," potaasum 5.3H on adm, BUN 70H, repeater operator 2.4H, phosphorus 5.4H 1. Problem Problem Inadequate intake from enteral nutrition infusion related to Etiology estimated nutritional needs aeb Signs/Symptoms: providing to meet 61% lower end kcal needs Intervention/Recommendation Comments 1. Recommend Novasource Renal at 50ml/hr x 20hrs, providing 2000kcal and 91g protein. Current order Glytrol at 60ml/ hr x 20hrs is only providing 1200kcal, pt recieves 2040kcal at [facility]. Expected Outcomes/Goals Expected Outcomes/Goals 1. Pt to meet at least 100% of estimated nutritional needs on tube feeding with tolerance .
[2017-06-10] MEDS: D5-0.45NS 1,000 ML IV SCH (20:14)
--- NOTE | 2017-06-10 23:59 | Progress Notes ---
DATE: 06/10/2017 PULMONARY PROGRESS NOTE PROBLEM LIST: 1. Persistent respiratory failure. 2. Bilateral infiltrate plus less congestive heart failure. 3. Renal failure. 4. Recent trach placed now, quite oozing of blood from the trach site. Currently laying down flat and trach was pulled out. No specific no other clinical findings. He is not on vasopressors. PHYSICAL EXAMINATION: VITAL SIGNS: Temperature is 99, heart rate is 100-110, blood pressure 113/61, saturation on 30% is 97. NECK: Veins not visualized. CHEST: Shows diminished air entry with occasional rhonchi. HEART: Regular. ABDOMEN: Soft and nontender. LABORATORY DATA: The patient's white count is 9.9, earlier hemoglobin is 8.5, and the patient's platelet is decreased and is 125,000. ABG, pO2 is 63. This is on 30% of oxygen with SIMV of 4. ASSESSMENT: The patient clinically very marginally slightly improvement in x-ray, but significant recurrent encephalopathic state, now has a tracheal bleeding, probably related to coagulopathy. PLANS AND SUGGESTIONS: We will continue current treatment. We discussed care with the nursing staff. We will repeat chest x-ray, blood gases, CBC, and coagulopathy in the morning and go from there. JOB# [id number]
[2017-06-11] MEDS: INSULIN ASPART SLIDING SCALE 100 UNITS/ML UNIT SUBQ SCH ×4 (00:23→17:18)
--- NOTE | 2017-06-11 01:01 | Progress Notes ---
DATE: 06/10/2017 SUBJECTIVE: Events noted. Noted to have trach site bleeding. Pending transfusion of packed RBCs, G-tube feedings have been on hold. OBJECTIVE: VITAL SIGNS: Noted. GENERAL: The patient is well-developed, chronically ill-appearing male who is visibly jaundiced now. HEENT: Tracheostomy is intact, attached to ventilator. CARDIOVASCULAR: Regular rate and rhythm. LUNGS: With occasional rhonchi at the bases. ABDOMEN: Soft, nontender, nondistended intact G-tube. EXTREMITIES: No edema. LABORATORY DATA: WBC is 9.9, hemoglobin is 7.2, platelet count is 125. INR is 1.27. Creatinine is 2.6, bilirubin is now 11.5, AST is 344, ALT is 38, alkaline phosphatase is 1942, which is less than before. IMPRESSION: 1. Abnormal liver enzymes, unclear etiology, likely from drug-induced hepatotoxicity such as from Lipitor or TPN. Most recently, the patient's Diflucan was also held and most recently his Keppra was stopped. Imaging does not suggest any biliary obstruction. 2. History of respiratory failure with tracheostomy and recent bleeding. 3. History of old stroke. 4. Respiratory failure. 5. Anemia. 6. G-tube insertion and dysphagia. RECOMMENDATIONS: 1. Avoid hepatotoxic agents. 2. Monitor liver synthetic function and liver enzymes. 3. Monitor hemoglobin. 4. G-tube feedings on hold for today. They may be resumed tomorrow. JOB# [id number] [facility]
[2017-06-11] MEDS: Albuterol/Ipratropium Neb 3 ML AERS HHN SCH ×5 (03:05→19:19)
[2017-06-11 05:20] LABS: HEMOGLOBIN 8.6 gm/dL (12.6-17.4); MEAN CORPUSCULAR HEMOGLOBIN 29.3 pg (27.0-31.0); MEAN PLATELET VOLUME 11.6 fl; RED BLOOD COUNT 2.92 Mil/cmm (3.80-5.80); RED CELL DISTRIBUTION WIDTH 15.4 % (11.5-20.0)
[2017-06-11 05:33] LABS: ALB/GLOB RATIO 1.2 (1.0-1.8); ANION GAP 13.3 (7.0-16.0); BILIRUBIN,TOTAL 11.6 mg/dL (0.3-1.0); BUN - UREA NITROGEN 50 mg/dL (7-25); BUN/CREATININE RATIO 15.2; CARBON DIOXIDE 25.6 mEq/L (21.0-31.0); CHLORIDE 99 mEq/L (98-107); CREATININE - SERUM 3.3 mg/dL (0.7-1.3); GLUCOSE 212 mg/dL (70-105); POTASSIUM SERUM 3.9 mEq/L (3.5-5.1); SGOT 198 U/L (13-39); SGPT/ALT 15 U/L (7-52); SODIUM SERUM 134 mEq/L (136-145)
[2017-06-11 05:53] LABS: HEMATOCRIT 25.1 % (39.0-49.0); WHITE BLOOD COUNT 12.3 Th/cmm (4.8-10.8)
[2017-06-11 05:54] LABS: PLATELET COUNT 167 Th/cmm (150-400)
[2017-06-11] MEDS: Piperacillin/Tazobact 2.25 gm in 0.9% NS 50 ML IV SCH ×4 (06:00→17:28)
[2017-06-11 06:24] LABS: ALKALINE PHOSPHATASE 1760 U/L (34-104)
[2017-06-11 06:58] LABS: ANISOCYTOSIS 1+; BAND NEUTROPHILE 5 % (0-10); EOSINOPHIL 1 % (0-5); MYELOCYTE 1 %; NEUTROPHILS 76 % (40-80); PLATELET ESTIMATE ADEQUATE (NORMAL); PLATELET MORPHOLOGY PLATELET CLUMPS SEEN (NORMAL); POLYCHROMASIA 1+; TOTAL CELLS COUNTED 100
[2017-06-11] MEDS: Budesonide 0.5 Mg/2 mL Ud HHN SCH ×2 (07:23→19:19)
[2017-06-11] MEDS: Chlorhexidine Gluconate 0.12% 15mL Mouthwash MM SCH (08:39)
--- NOTE | 2017-06-11 08:54 | General Progress Note ---
Subjective - Review of Systems Service Date: 06/11/17 Events since last encounter: Hb 8.6 today trach no bleeding Objective - Results Result Diagrams: 06/11/17 04:51 06/11/17 04:51 Recent Labs: Laboratory Last Values WBC 12.3 Th/cmm (4.8-10.8) H D 06/11/17 04:51 RBC 2.92 Mil/cmm (3.80-5.80) L 06/11/17 04:51 Hgb 8.6 gm/dL (12.6-17.4) L 06/11/17 04:51 Hct 25.1 % (39.0-49.0) L D 06/11/17 04:51 MCV 86.0 fl (80-99) 06/11/17 04:51 MCH 29.3 pg (27.0-31.0) 06/11/17 04:51 MCHC Differential 34.0 pg (28.0-36.0) 06/11/17 04:51 RDW 15.4 % (11.5-20.0) 06/11/17 04:51 Plt Count 167 Th/cmm (150-400) D 06/11/17 04:51 MPV 11.6 fl 06/11/17 04:51 Neutrophils % 70.4 % (40.0-80.0) 06/08/17 06:05 Band Neutrophils % 5 % (0-10) 06/11/17 04:51 Lymphocytes % 12.5 % (20.0-50.0) L 06/08/17 06:05 Monocytes % 14.9 % (2.0-10.0) H 06/08/17 06:05 Eosinophils % 1.4 % (0.0-5.0) 06/08/17 06:05 Basophils % 0.8 % (0.0-2.0) 06/08/17 06:05 Neutrophils (Manual) 76 % (40-80) 06/11/17 04:51 Lymphocytes 11 % (20-50) L 06/11/17 04:51 Monocytes 6 % (2-10) 06/11/17 04:51 Eosinophils 1 % (0-5) 06/11/17 04:51 Basophils 0 % (0-3) 05/24/17 04:49 Metamyelocytes 4 % (0-0) H 06/10/17 04:45 Myelocytes 1 % 06/11/17 04:51 Atypical Lymphocytes 1 % 06/10/17 04:45 Toxic Granulation 1+ 05/23/17 04:48 Platelet Estimate ADEQUATE (NORMAL) 06/11/17 04:51 Platelet Morphology PLATELET CLUMPS SEEN (NORMAL) 06/11/17 04:51 Polychromasia 1+ 06/11/17 04:51 Poikilocytosis 1+ 06/09/17 19:53 Anisocytosis 1+ 06/11/17 04:51 Target Cells 1+ 06/09/17 19:53 RBC Morph Micro Appear ABNORMAL (NORMAL) 06/11/17 04:51 Eos Smear Source URINE 05/14/17 18:00 Eos Smear Total Cells FEW EOSINOPHILS SEEN (NONE SEEN) 05/14/17 18:00 Plt Count 125 Th/cmm (150-750) L D 06/10/17 04:45 PT 12.7 SECONDS (9.5-11.5) H 06/10/17 04:45 INR 1.21 (0.5-1.4) 06/10/17 04:45 PTT (Actin FS) 33.4 SECONDS (26.0-38.0) 06/10/17 04:45 Fibrinogen 306.0 mg/dL (200.0-400.0) 06/10/17 04:45 D-Dimer 1900 ng/mL (100-400) H 06/10/17 04:45 Specimen Source Arterial 06/10/17 09:25 Sample Site Right Radial 06/10/17 09:25 pH 7.45 (7.35-7.45) 06/10/17 09:25 pCO2 44.0 mmHg (35.0-45.0) 06/10/17 09:25 pO2 63.0 mmHg (80.0-100.0) L 06/10/17 09:25 HCO3 29.3 mEq/L (20.0-26.0) H 06/10/17 09:25 Base Excess 5.8 mEq/L (-3.0-3.0) H 06/10/17 09:25 O2 Saturation 93.0 % (92.0-100.0) 06/10/17 09:25 [place] Test Positive 06/10/17 09:25 Vent Rate 4 06/10/17 09:25 Inspired O2 30 06/10/17 09:25 Tidal Volume 500 06/10/17 09:25 PEEP NA 06/10/17 09:25 Pressure (ins/psv/peep) 18 06/10/17 09:25 Critical Value LZHANG 06/10/17 09:25 Sodium 134 mEq/L (136-145) L 06/11/17 04:51 Potassium 3.9 mEq/L (3.5-5.1) 06/11/17 04:51 Chloride 99 mEq/L (98-107) 06/11/17 04:51 Carbon Dioxide 25.6 mEq/L (21.0-31.0) 06/11/17 04:51 Anion Gap 13.3 (7.0-16.0) 06/11/17 04:51 BUN 50 mg/dL (7-25) H 06/11/17 04:51 Creatinine 3.3 mg/dL (0.7-1.3) H 06/11/17 04:51 Est GFR ( Amer) TNP 06/11/17 04:51 Est GFR (Non-Af Amer) TNP 06/11/17 04:51 BUN/Creatinine Ratio 15.2 06/11/17 04:51 Glucose 212 mg/dL (70-105) H 06/11/17 04:51 POC Glucose 210 MG/DL (70 - 105) H 06/11/17 05:35 Hemoglobin A1c % 6.1 % (4.0-6.0) H 05/15/17 06:30 Plasma/Ser Osmolality 301 mOsmol/kg (280-301) 05/14/17 18:20 Whole Bld Lactic Acid 1.58 mmol/L (0.60-1.99) 05/13/17 17:42 Uric Acid 7.7 mg/dL (4.4-7.6) H 05/15/17 06:30 Calcium 9.0 mg/dL (8.6-10.3) 06/11/17 04:51 Phosphorus 2.7 mg/dL (2.5-5.0) 06/09/17 04:50 Magnesium 2.4 mg/dL (1.9-2.7) 06/09/17 04:50 Iron 70 ug/dL (38-169) 06/04/17 04:47 TIBC 94 ug/dL (250-450) L 06/04/17 04:47 Iron Saturation 74 % (15-55) H 06/04/17 04:47 Unsaturated IBC 24 ug/dL (111-343) L 06/04/17 04:47 Ferritin 351 ng/mL (30-400) 06/03/17 04:48 Total Bilirubin 11.6 mg/dL (0.3-1.0) H 06/11/17 04:51 Direct Bilirubin 3.83 mg/dL (0.0-0.2) H 06/07/17 04:40 AST 198 U/L (13-39) H 06/11/17 04:51 ALT 15 U/L (7-52) 06/11/17 04:51 Alkaline Phosphatase 1760 U/L (34-104) H 06/11/17 04:51 Ammonia 47 umol/L (16-53) 06/08/17 14:08 Creatine Kinase 35 U/L (30-223) 05/16/17 23:06 Troponin I 0.02 ng/mL (0.01-0.05) 05/16/17 23:06 B-Natriuretic Peptide 2000.0 pg/mL (5.0-100.0) H 06/11/17 04:51 Total Protein 5.5 gm/dL (6.0-8.3) L 06/11/17 04:51 Albumin 3.0 gm/dL (4.2-5.5) L 06/11/17 04:51 Globulin 2.5 gm/dL 06/11/17 04:51 Albumin/Globulin Ratio 1.2 (1.0-1.8) 06/11/17 04:51 Prealbumin 6 mg/dL (9-32) L 06/04/17 04:47 Triglycerides 60 mg/dL (<150) 06/04/17 04:47 Cholesterol 63 mg/dL (<200) 06/04/17 04:47 Vitamin B12 >1999 pg/mL (211-946) H 06/04/17 04:47 Folic Acid >20.0 ng/mL (>3.0) 06/04/17 04:47 TSH 2.74 uIU/ml (0.34-5.60) 05/15/17 06:30 Urine Source CATH 06/06/17 10:30 Urine Color YELLOW 08/04/17 10:30 Urine Clarity SL. CLOUDY (CLEAR) 06/06/17 10:30 Urine pH 5.0 (4.6 - 8.0) 06/06/17 10:30 Ur Specific [place] 1.025 (1.005-1.030) 06/06/17 10:30 Urine Protein 100 mg/dL (NEGATIVE) H 06/06/17 10:30 Urine Glucose (UA) NEGATIVE mg/dL (NEGATIVE) 06/06/17 10:30 Urine Ketones NEGATIVE mg/dL (NEGATIVE) 06/06/17 10:30 Urine Blood LARGE (NEGATIVE) H 06/06/17 10:30 Urine Nitrate NEGATIVE (NEGATIVE) 06/06/17 10:30 Urine Bilirubin SMALL (NEGATIVE) H 06/06/17 10:30 Urine Urobilinogen 0.2 E.U./dL (0.2 - 1.0) 06/06/17 10:30 Ur Leukocyte Esterase LARGE (NEGATIVE) H 06/06/17 10:30 Urine RBC 20-30 /hpf (0-5) 06/06/17 10:30 Urine WBC 10-25 /hpf (0-5) H 06/06/17 10:30 Ur Epithelial Cells RARE /lpf (FEW) 06/06/17 10:30 Urine Bacteria f /hpf (NONE SEEN) 06/06/17 10:30 Urine Yeast MODERATE /hpf (NONE SEEN) H 06/06/17 10:30 Ur Random Sodium 30 mmol/L 05/14/17 18:00 Urine Creatinine 36.4 mg/dl (Not Estab.) 05/14/17 18:00 Urine Microalbumin 363.5 ug/mL (Not Estab.) 05/14/17 18:00 Microalb/Creat Ratio 998.6 mg/g creat (0.0-30.0) H 05/14/17 18:00 Stool Occult Blood NEGATIVE (NEGATIVE) 05/25/17 17:49 Random Vancomycin 19.1 ug/mL (5.0-40.0) 05/19/17 04:50 Acetaminophen < 10.0 ug/mL (10.0-30.0) L 06/07/17 04:40 Hepatitis A IgM Ab Negative (Negative) 05/21/17 04:46 Hep Bs Antigen Negative (Negative) 05/21/17 04:46 Hep B Core IgM Ab Negative (Negative) 05/21/17 04:46 Hepatitis C Antibody 0.1 s/co ratio (0.0-0.9) 05/21/17 04:46 Blood Type B POSITIVE 06/10/17 14:17 Antibody Screen NEGATIVE 06/10/17 14:17 Crossmatch See Detail 05/21/17 10:19 - Physical Exam Vitals and I&O: Vital Signs Temp 99.2 F 06/11/17 04:00 Pulse 99 06/11/17 07:34 Resp 18 06/11/17 07:00 BP 126/67 06/11/17 07:00 Pulse Ox 98 06/11/17 07:34 Intake & Output 06/10/17 06/11/17 06/11/17 18:59 06:59 18:59 Intake Total 370 Output Total 20 5 Balance 350 -5 Weight (lbs) 68.175 kg 68.039 kg Intake: Intake, IV Amount 50 Piperacillin Sodium/ 50 Tazobact 2.25 gm In Sodium Chloride 0.9% 50 ml @ 100 mls/hr IV Q6HR [facility] Rx#:[id number] Tube Feeding 70 Blood Product 150 Other 100 Output: Urine 20 5 Urine/Stool Mix 0 Other: # Bowel Movements 0 Active Medications: Current Medications Acetaminophen (Tylenol) 650 mg PO Q4HR PRN PRN Reason: Pain Or Fever above 101 Stop: 07/14/17 15:15 Last Admin: 06/09/17 18:51 Dose: 650 mg Albuterol/Ipratropium (Duoneb Neb) 3 ml HHN Q4HRT [facility] Stop: 07/19/17 14:59 Last Admin: 06/11/17 07:23 Dose: 3 ml Budesonide (Pulmicort) 1 mg HHN BIDRT [facility] Stop: 07/19/17 18:59 Last Admin: 06/11/17 07:23 Dose: 1 mg Calamine/Phenol (Calmoseptine) 1 appl TP QID PRN PRN Reason: Skin Irritation Stop: 08/03/17 12:28 Last Admin: 06/07/17 21:00 Dose: 1 appl Calamine/Phenol (Calmoseptine) 1 appl TP QID [facility] Stop: 08/03/17 12:59 Last Admin: 08/08/17 20:18 Dose: 1 appl Carbidopa/Levodopa (Sinemet 25mg-100 Mg) 1 tab PO TID YESSICA Stop: 07/14/17 08:59 Last Admin: 06/10/17 20:07 Dose: 1 tab Chlorhexidine Gluconate (Peridex) 15 ml MM 0800,1999 YESSICA Stop: 07/23/17 19:59 Last Admin: 06/10/17 20:18 Dose: 15 ml Clonidine HCl (Catapres) 0.1 mg PO Q6HR PRN PRN Reason: BP MAINTENANCE (PER PROTOCOL) Stop: 07/28/17 13:31 Last Admin: 05/29/17 21:04 Dose: 0.1 mg Dextrose (D50w) 50 ml IVP PRN PRN; Protocol PRN Reason: HYPOGLYCEMIA Stop: 07/20/17 00:54 Last Admin: 05/22/17 23:34 Dose: 50 ml Diltiazem HCl (Cardizem) 10 mg IVP Q6HR PRN PRN Reason: HR >130 Stop: 07/22/17 17:09 Last Admin: 05/24/17 04:21 Dose: 10 mg Hydralazine HCl (Apresoline 20 Mg/Ml) 10 mg IV Q6HR PRN PRN Reason: BP MAINTENANCE (PER PROTOCOL) Stop: 07/30/17 13:09 Last Admin: 06/06/17 12:30 Dose: 10 mg Norepinephrine Bitartrate 8 mg (/ Dextrose) 258 mls @ 0 mls/hr IV TITR PRN; Protocol; Titrate PRN Reason: BP MAINTENANCE (PER PROTOCOL) Stop: 07/19/17 12:29 Last Admin: 05/21/17 01:06 Dose: 10 mcg/min, 19.35 mls/hr Phenylephrine HCl 10 mg/ (Sodium Chloride) 250 mls @ 0 mls/hr IV TITR YESSICA; Per Protocol PRN Reason: Protocol Stop: 07/19/17 12:59 Piperacillin Sod/Tazobactam (Sod 2.25 gm/ Sodium Chloride) 50 mls @ 100 mls/hr IV Q6HR YESSICA Stop: 08/05/17 11:59 Last Admin: 06/10/17 20:13 Dose: 100 mls/hr Norepinephrine Bitartrate 4 mg (/ Dextrose) 254 mls @ 0 mls/hr IV TITR PRN; Protocol; Per Protocol PRN Reason: BP MAINTENANCE (PER PROTOCOL) Stop: 08/07/17 10:48 Albumin Human (Albuminar 25%) 25 gm in 100 mls @ 50 mls/hr IV X1 ONE Stop: 06/11/17 15:59 Albumin Human (Albuminar 25%) 25 gm in 100 mls @ 50 mls/hr IV X1 ONE Stop: 06/11/17 15:59 Dextrose/Sodium Chloride (D5-0.45ns) 1,000 mls @ 60 mls/hr IV .[id number] [facility] Stop: 06/11/17 13:00 Last Admin: 06/10/17 20:14 Dose: 60 mls/hr Insulin Aspart (Novolog Insulin Sliding Scale) 0 units SUBQ Q6HR YESSICA PRN Reason: Protocol Stop: 07/14/17 00:00 Last Admin: 06/11/17 05:39 Dose: 2 units Isosorbide Dinitrate (Isordil) 20 mg GT TID [facility] Stop: 07/28/17 13:33 Last Admin: 06/10/17 20:06 Dose: 20 mg Lactobacillus Rhamnosus (Culturelle) 1 each PO DAILY [facility] Stop: 07/17/17 08:59 Last Admin: 06/10/17 09:43 Dose: 1 each Metoclopramide HCl (Reglan) 5 mg IVP TID [facility] Stop: 07/20/17 20:59 Last Admin: 06/10/17 20:07 Dose: 5 mg Metoprolol Tartrate (Lopressor) 50 mg GT Q8H [facility] Stop: 07/18/17 08:59 Last Admin: 06/11/17 00:40 Dose: 50 mg Miscellaneous (Vte Chemical Prophylaxis Screen/ Admission) 1 ea MC PRN PRN PRN Reason: PROTOCOL Stop: 07/14/17 09:25 Miscellaneous (Clinical Monitoring) 1 ea MC DAILY PRN PRN Reason: RENAL Stop: 07/15/17 12:32 Miscellaneous (Probiotic Screen) 1 ea MC PRN PRN PRN Reason: PROTOCOL Stop: 07/16/17 09:33 Morphine Sulfate (Morphine) 1 mg IVP Q4HR PRN PRN Reason: Pain (Moderate) Stop: 08/06/17 15:02 Last Admin: 06/10/17 00:18 Dose: 1 mg Pantoprazole Sodium (Protonix) 40 mg GT DAILY [facility] Stop: 07/14/17 08:59 Last Admin: 06/10/17 09:43 Dose: 40 mg General: Alert, No acute distress HEENT: Atraumatic Neck: Other ( trach site no bleeding noted) Cardiovascular: Other (mild tachycardia) Lungs: Other (rhonchi bilaterally) Abdomen: Soft, no Tender Extremities: no Edema (no edema) Neurological: Other (seems more awake) Skin: Rash Psych/Mental Status: Mood NL - Procedures Procedures: Procedures Procedure Code Date BYPASS TRACHEA TO CUTANEOUS WITH TRACH DEV, OPEN APPROACH [id number] 05/13/17 INCISION OF WINDPIPE 22553 05/13/17 INSERT EMERGENCY AIRWAY 43839 05/13/17 INSERT TUNNELED CV CATH 28827 05/13/17 INSERTION OF ENDOTRACHEAL AIRWAY INTO TRACHEA, VIA OPENING [id number] 05/13/17 INSERTION OF INFUSION DEV INTO R FEMOR VEIN, PERC APPROACH 56BP60M 05/13/17 RESPIRATORY VENTILATION, GREATER THAN 96 CONSECUTIVE HOURS [id number] 05/13/17 VENT MGMT INPAT INIT DAY [id number] 05/13/17 Assessment/Plan - Problem List Patient Problems: All Active Problems COUGH AND CONGESTION (Acute) Congestive heart failure (CHF) (Acute) I50.9 congestive heart failure (Acute) hypertension uncontrolled with bradycarda (Acute) renal failure (Acute) Nutritional Asmnt/Malnutr-PDOC - Dietary Evaluation Malnutrition Findings (Please click <Entered> for more info): Nutritional Asmnt/Malnutrition Start: 05/15/17 13: 56 Text: Status: Complete Freq: Document 05/15/17 13:56 JORGEUN (Rec: 05/15/17 14:18 DARON TORRESFN) Nutritional Asmnt/Malnutrition Patient General Information Nutritional Screening High Risk Screening Diagnosis PNA, NICK, icnreasing renal failure, CVA, CHF, DM Pertinent Medical Hx/Surgical Hx CVA, dementia, afib, CAD, HTN, dyslipidemia, epilepsy, GERD, aspiration PNA, DM, CKD, dehydration, C. diff, anemia D Subjective Information 86 year old male from SNF. Pt greeted RD. Pt is overall thin , moderate to severe wasting to chest, clavicles, extremities. Observed Glytrol running at 60ml/hr x20hrs during visit. Unable to obtain CBW due to bedscale not calibrated. Discussed with RN Dung regarding tube feeding recommendations. Current Diet Order/ Nutrition Support Glytrol at 60ml/hr x 20hrs, providing 1200kcal 54g protein Pertinent Medications Lipitor, Novolog, Levemir, Cephulac, Morphine, Protonix, Nacl 0.9% Pertinent Labs 05/13: potassium 5.3H, BUN 80H, creatinine 2.4H, glucose 103 05/15: potassium WNL, BUN 70H, creatinine 2.4H, glucose 239H, A1c 6.1H, phosphorus 5.4H Nutritional Hx/Data Height 1.68 m Height (Calculated Centimeters) 167.6 Current Weight (lbs) 65.771 kg Weight (Calculated Kilograms) 65.8 Weight (Calculated Grams) 03443.9 [place] Body Weight 142 Weight Status Approriate GI Symptoms Difficult in: Swallowing Cultural/Ethnic/Pro[employer]ant Belief [facility]: Glucerna 1.2 at 85ml/hr x 20hrs, providing 2040kcal, promote weight gain. Skin Integrity/Comment: Gee 12. Skin intact. Estimated Nutritional Goals Calories/Kcals/Kg CBW 145lb/65.9kg Kcals Calculated 1976-2307kcal (30-35kcal/kg) Protein Calculated 46-92g (0.7-1.4g/kg, renal vs moderate to severe wasting) Fluid: ml Per MD (renal) Nutritional Problem 2. 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 Problem Problem Inadequate intake from enteral nutrition infusion related to Etiology estimated nutritional needs aeb Signs/Symptoms: providing to meet 61% lower end kcal needs Intervention/Recommendation Comments 1. Recommend Novasource Renal at 50ml/hr x 20hrs, providing 2000kcal and 91g protein. Current order Glytrol at 60ml/ hr x 20hrs is only providing 1200kcal, pt recieves 2040kcal at [facility]. Expected Outcomes/Goals Expected Outcomes/Goals 1. Pt to meet at least 100% of estimated nutritional needs on tube feeding with tolerance .
[2017-06-11] MEDS: Metoclopramide 5 mg/mL 2mL Vial IVP SCH ×2 (09:07→14:01)
[2017-06-11] MEDS: Pantoprazole 40 mg/Packet GT SCH (09:08)
[2017-06-11] MEDS: Lactobacillus Rhamnosus 10 Billion CFU Capsule PO SCH (09:08)
[2017-06-11] MEDS: Menthol/Zinc Oxide Oint 113gm Tube TP SCH ×3 (09:39→17:20)
--- NOTE | 2017-06-11 10:33 | General Progress Note ---
Subjective - Review of Systems Service Date: 06/11/17 Events since last encounter: no bleeding Subjective: s/p tracheostomy Objective - Results Result Diagrams: 06/11/17 04:51 06/11/17 04:51 Recent Labs: Laboratory Last Values WBC 12.3 Th/cmm (4.8-10.8) H D 06/11/17 04:51 RBC 2.92 Mil/cmm (3.80-5.80) L 06/11/17 04:51 Hgb 8.6 gm/dL (12.6-17.4) L 06/11/17 04:51 Hct 25.1 % (39.0-49.0) L D 06/11/17 04:51 MCV 86.0 fl (80-99) 06/11/17 04:51 MCH 29.3 pg (27.0-31.0) 06/11/17 04:51 MCHC Differential 34.0 pg (28.0-36.0) 06/11/17 04:51 RDW 15.4 % (11.5-20.0) 06/11/17 04:51 Plt Count 167 Th/cmm (150-400) D 06/11/17 04:51 MPV 11.6 fl 06/11/17 04:51 Neutrophils % 70.4 % (40.0-80.0) 06/08/17 06:05 Band Neutrophils % 5 % (0-10) 06/11/17 04:51 Lymphocytes % 12.5 % (20.0-50.0) L 06/08/17 06:05 Monocytes % 14.9 % (2.0-10.0) H 06/08/17 06:05 Eosinophils % 1.4 % (0.0-5.0) 06/08/17 06:05 Basophils % 0.8 % (0.0-2.0) 06/08/17 06:05 Neutrophils (Manual) 76 % (40-80) 06/11/17 04:51 Lymphocytes 11 % (20-50) L 06/11/17 04:51 Monocytes 6 % (2-10) 06/11/17 04:51 Eosinophils 1 % (0-5) 06/11/17 04:51 Basophils 0 % (0-3) 05/24/17 04:49 Metamyelocytes 4 % (0-0) H 06/10/17 04:45 Myelocytes 1 % 06/11/17 04:51 Atypical Lymphocytes 1 % 06/10/17 04:45 Toxic Granulation 1+ 05/23/17 04:48 Platelet Estimate ADEQUATE (NORMAL) 06/11/17 04:51 Platelet Morphology PLATELET CLUMPS SEEN (NORMAL) 06/11/17 04:51 Polychromasia 1+ 06/11/17 04:51 Poikilocytosis 1+ 06/09/17 19:53 Anisocytosis 1+ 06/11/17 04:51 Target Cells 1+ 06/09/17 19:53 RBC Morph Micro Appear ABNORMAL (NORMAL) 06/11/17 04:51 Eos Smear Source URINE 05/14/17 18:00 Eos Smear Total Cells FEW EOSINOPHILS SEEN (NONE SEEN) 05/14/17 18:00 Plt Count 125 Th/cmm (150-750) L D 06/10/17 04:45 PT 12.7 SECONDS (9.5-11.5) H 06/10/17 04:45 INR 1.21 (0.5-1.4) 06/10/17 04:45 PTT (Actin FS) 33.4 SECONDS (26.0-38.0) 06/10/17 04:45 Fibrinogen 306.0 mg/dL (200.0-400.0) 06/10/17 04:45 D-Dimer 1900 ng/mL (100-400) H 06/10/17 04:45 Specimen Source Arterial 06/10/17 09:25 Sample Site Right Radial 06/10/17 09:25 pH 7.45 (7.35-7.45) 06/10/17 09:25 pCO2 44.0 mmHg (35.0-45.0) 06/10/17 09:25 pO2 63.0 mmHg (80.0-100.0) L 06/10/17 09:25 HCO3 29.3 mEq/L (20.0-26.0) H 06/10/17 09:25 Base Excess 5.8 mEq/L (-3.0-3.0) H 06/10/17 09:25 O2 Saturation 93.0 % (92.0-100.0) 06/10/17 09:25 Feliciano Test Positive 06/10/17 09:25 Vent Rate 4 06/10/17 09:25 Inspired O2 30 06/10/17 09:25 Tidal Volume 500 06/10/17 09:25 PEEP NA 06/10/17 09:25 Pressure (ins/psv/peep) 18 06/10/17 09:25 Critical Value LZHANG 06/10/17 09:25 Sodium 134 mEq/L (136-145) L 06/11/17 04:51 Potassium 3.9 mEq/L (3.5-5.1) 06/11/17 04:51 Chloride 99 mEq/L (98-107) 06/11/17 04:51 Carbon Dioxide 25.6 mEq/L (21.0-31.0) 06/11/17 04:51 Anion Gap 13.3 (7.0-16.0) 06/11/17 04:51 BUN 50 mg/dL (7-25) H 06/11/17 04:51 Creatinine 3.3 mg/dL (0.7-1.3) H 06/11/17 04:51 Est GFR ( Amer) TNP 06/11/17 04:51 Est GFR (Non-Af Amer) TNP 06/11/17 04:51 BUN/Creatinine Ratio 15.2 06/11/17 04:51 Glucose 212 mg/dL (70-105) H 06/11/17 04:51 POC Glucose 210 MG/DL (70 - 105) H 06/11/17 05:35 Hemoglobin A1c % 6.1 % (4.0-6.0) H 05/15/17 06:30 Plasma/Ser Osmolality 301 mOsmol/kg (280-301) 05/14/17 18:20 Whole Bld Lactic Acid 1.58 mmol/L (0.60-1.99) 05/13/17 17:42 Uric Acid 7.7 mg/dL (4.4-7.6) H 05/15/17 06:30 Calcium 9.0 mg/dL (8.6-10.3) 06/11/17 04:51 Phosphorus 2.7 mg/dL (2.5-5.0) 06/09/17 04:50 Magnesium 2.4 mg/dL (1.9-2.7) 06/09/17 04:50 Iron 70 ug/dL (38-169) 06/04/17 04:47 TIBC 94 ug/dL (250-450) L 06/04/17 04:47 Iron Saturation 74 % (15-55) H 06/04/17 04:47 Unsaturated IBC 24 ug/dL (111-343) L 06/04/17 04:47 Ferritin 351 ng/mL (30-400) 06/03/17 04:48 Total Bilirubin 11.6 mg/dL (0.3-1.0) H 06/11/17 04:51 Direct Bilirubin 3.83 mg/dL (0.0-0.2) H 06/07/17 04:40 AST 198 U/L (13-39) H 06/11/17 04:51 ALT 15 U/L (7-52) 06/11/17 04:51 Alkaline Phosphatase 1760 U/L (34-104) H 06/11/17 04:51 Ammonia 47 umol/L (16-53) 06/08/17 14:08 Creatine Kinase 35 U/L (30-223) 05/16/17 23:06 Troponin I 0.02 ng/mL (0.01-0.05) 05/16/17 23:06 B-Natriuretic Peptide 2000.0 pg/mL (5.0-100.0) H 06/11/17 04:51 Total Protein 5.5 gm/dL (6.0-8.3) L 06/11/17 04:51 Albumin 3.0 gm/dL (4.2-5.5) L 06/11/17 04:51 Globulin 2.5 gm/dL 06/11/17 04:51 Albumin/Globulin Ratio 1.2 (1.0-1.8) 06/11/17 04:51 Prealbumin 6 mg/dL (9-32) L 06/04/17 04:47 Triglycerides 60 mg/dL (<150) 06/04/17 04:47 Cholesterol 63 mg/dL (<200) 06/04/17 04:47 Vitamin B12 >1999 pg/mL (211-946) H 06/04/17 04:47 Folic Acid >20.0 ng/mL (>3.0) 06/04/17 04:47 TSH 2.74 uIU/ml (0.34-5.60) 05/15/17 06:30 Urine Source CATH 06/06/17 10:30 Urine Color YELLOW 06/06/17 10:30 Urine Clarity SL. CLOUDY (CLEAR) 06/06/17 10:30 Urine pH 5.0 (4.6 - 8.0) 06/06/17 10:30 Ur Specific Mica 1.025 (1.005-1.030) 06/06/17 10:30 Urine Protein 100 mg/dL (NEGATIVE) H 06/06/17 10:30 Urine Glucose (UA) NEGATIVE mg/dL (NEGATIVE) 06/06/17 10:30 Urine Ketones NEGATIVE mg/dL (NEGATIVE) 06/06/17 10:30 Urine Blood LARGE (NEGATIVE) H 06/06/17 10:30 Urine Nitrate NEGATIVE (NEGATIVE) 06/06/17 10:30 Urine Bilirubin SMALL (NEGATIVE) H 06/06/17 10:30 Urine Urobilinogen 0.2 E.U./dL (0.2 - 1.0) 06/06/17 10:30 Ur Leukocyte Esterase LARGE (NEGATIVE) H 06/06/17 10:30 Urine RBC 20-30 /hpf (0-5) 06/06/17 10:30 Urine WBC 10-25 /hpf (0-5) H 06/06/17 10:30 Ur Epithelial Cells RARE /lpf (FEW) 06/06/17 10:30 Urine Bacteria f /hpf (NONE SEEN) 06/06/17 10:30 Urine Yeast MODERATE /hpf (NONE SEEN) H 06/06/17 10:30 Ur Random Sodium 30 mmol/L 05/14/17 18:00 Urine Creatinine 36.4 mg/dl (Not Estab.) 05/14/17 18:00 Urine Microalbumin 363.5 ug/mL (Not Estab.) 05/14/17 18:00 Microalb/Creat Ratio 998.6 mg/g creat (0.0-30.0) H 05/14/17 18:00 Stool Occult Blood NEGATIVE (NEGATIVE) 05/25/17 17:49 Random Vancomycin 19.1 ug/mL (5.0-40.0) 05/19/17 04:50 Acetaminophen < 10.0 ug/mL (10.0-30.0) L 06/07/17 04:40 Hepatitis A IgM Ab Negative (Negative) 05/21/17 04:46 Hep Bs Antigen Negative (Negative) 05/21/17 04:46 Hep B Core IgM Ab Negative (Negative) 05/21/17 04:46 Hepatitis C Antibody 0.1 s/co ratio (0.0-0.9) 05/21/17 04:46 Blood Type B POSITIVE 06/10/17 14:17 Antibody Screen NEGATIVE 06/10/17 14:17 Crossmatch See Detail 05/21/17 10:19 - Physical Exam Vitals and I&O: Vital Signs Temp 99.2 F 06/11/17 04:00 Pulse 94 06/11/17 09:08 Resp 18 06/11/17 07:00 BP 117/66 06/11/17 09:08 Pulse Ox 98 06/11/17 07:34 Intake & Output 06/10/17 06/11/17 06/11/17 18:59 06:59 18:59 Intake Total 370 Output Total 20 5 Balance 350 -5 Weight (lbs) 68.175 kg 68.039 kg Intake: Intake, IV Amount 50 Piperacillin Sodium/ 50 Tazobact 2.25 gm In Sodium Chloride 0.9% 50 ml @ 100 mls/hr IV Q6HR [facility] Rx#:[id number] Tube Feeding 70 Blood Product 150 Other 100 Output: Urine 20 5 Urine/Stool Mix 0 Other: # Bowel Movements 0 Active Medications: Current Medications Acetaminophen (Tylenol) 650 mg PO Q4HR PRN PRN Reason: Pain Or Fever above 101 Stop: 07/14/17 15:15 Last Admin: 06/09/17 18:51 Dose: 650 mg Albuterol/Ipratropium (Duoneb Neb) 3 ml HHN Q4HRT [facility] Stop: 07/19/17 14:59 Last Admin: 06/11/17 07:23 Dose: 3 ml Budesonide (Pulmicort) 1 mg HHN BIDRT [facility] Stop: 07/19/17 18:59 Last Admin: 06/11/17 07:23 Dose: 1 mg Calamine/Phenol (Calmoseptine) 1 appl TP QID PRN PRN Reason: Skin Irritation Stop: 08/03/17 12:28 Last Admin: 06/07/17 21:00 Dose: 1 appl Calamine/Phenol (Calmoseptine) 1 appl TP QID [facility] Stop: 08/03/17 12:59 Last Admin: 06/10/17 20:18 Dose: 1 appl Carbidopa/Levodopa (Sinemet 25mg-100 Mg) 1 tab PO TID YESSICA Stop: 07/14/17 08:59 Last Admin: 06/11/17 09:07 Dose: 1 tab Chlorhexidine Gluconate (Peridex) 15 ml MM 0800,1999 YESSICA Stop: 07/23/17 19:59 Last Admin: 06/10/17 20:18 Dose: 15 ml Clonidine HCl (Catapres) 0.1 mg PO Q6HR PRN PRN Reason: BP MAINTENANCE (PER PROTOCOL) Stop: 07/28/17 13:31 Last Admin: 05/29/17 21:04 Dose: 0.1 mg Dextrose (D50w) 50 ml IVP PRN PRN; Protocol PRN Reason: HYPOGLYCEMIA Stop: 07/20/17 00:54 Last Admin: 05/22/17 23:34 Dose: 50 ml Diltiazem HCl (Cardizem) 10 mg IVP Q6HR PRN PRN Reason: HR >130 Stop: 07/22/17 17:09 Last Admin: 05/24/17 04:21 Dose: 10 mg Hydralazine HCl (Apresoline 20 Mg/Ml) 10 mg IV Q6HR PRN PRN Reason: BP MAINTENANCE (PER PROTOCOL) Stop: 07/30/17 13:09 Last Admin: 06/06/17 12:30 Dose: 10 mg Norepinephrine Bitartrate 8 mg (/ Dextrose) 258 mls @ 0 mls/hr IV TITR PRN; Protocol; Titrate PRN Reason: BP MAINTENANCE (PER PROTOCOL) Stop: 07/19/17 12:29 Last Admin: 05/21/17 01:06 Dose: 10 mcg/min, 19.35 mls/hr Phenylephrine HCl 10 mg/ (Sodium Chloride) 250 mls @ 0 mls/hr IV TITR YESSICA; Per Protocol PRN Reason: Protocol Stop: 07/19/17 12:59 Piperacillin Sod/Tazobactam (Sod 2.25 gm/ Sodium Chloride) 50 mls @ 100 mls/hr IV Q6HR YESSICA Stop: 08/05/17 11:59 Last Admin: 06/10/17 20:13 Dose: 100 mls/hr Norepinephrine Bitartrate 4 mg (/ Dextrose) 254 mls @ 0 mls/hr IV TITR PRN; Protocol; Per Protocol PRN Reason: BP MAINTENANCE (PER PROTOCOL) Stop: 08/07/17 10:48 Albumin Human (Albuminar 25%) 25 gm in 100 mls @ 50 mls/hr IV X1 ONE Stop: 06/11/17 15:59 Albumin Human (Albuminar 25%) 25 gm in 100 mls @ 50 mls/hr IV X1 ONE Stop: 06/11/17 15:59 Dextrose/Sodium Chloride (D5-0.45ns) 1,000 mls @ 60 mls/hr IV .[id number] [facility] Stop: 06/11/17 13:00 Last Admin: 06/10/17 20:14 Dose: 60 mls/hr Insulin Aspart (Novolog Insulin Sliding Scale) 0 units SUBQ Q6HR YESSICA PRN Reason: Protocol Stop: 07/14/17 00:00 Last Admin: 06/11/17 05:39 Dose: 2 units Isosorbide Dinitrate (Isordil) 20 mg GT TID [facility] Stop: 07/28/17 13:33 Last Admin: 06/11/17 09:07 Dose: 20 mg Lactobacillus Rhamnosus (Culturelle) 1 each PO DAILY [facility] Stop: 07/17/17 08:59 Last Admin: 06/11/17 09:08 Dose: 1 each Metoclopramide HCl (Reglan) 5 mg IVP TID [facility] Stop: 07/20/17 20:59 Last Admin: 06/11/17 09:07 Dose: 5 mg Metoprolol Tartrate (Lopressor) 50 mg GT Q8H [facility] Stop: 07/18/17 08:59 Last Admin: 06/11/17 09:08 Dose: 50 mg Miscellaneous (Vte Chemical Prophylaxis Screen/ Admission) 1 ea MC PRN PRN PRN Reason: PROTOCOL Stop: 07/14/17 09:25 Miscellaneous (Clinical Monitoring) 1 ea MC DAILY PRN PRN Reason: RENAL Stop: 07/15/17 12:32 Miscellaneous (Probiotic Screen) 1 ea MC PRN PRN PRN Reason: PROTOCOL Stop: 07/16/17 09:33 Morphine Sulfate (Morphine) 1 mg IVP Q4HR PRN PRN Reason: Pain (Moderate) Stop: 08/06/17 15:02 Last Admin: 06/10/17 00:18 Dose: 1 mg Pantoprazole Sodium (Protonix) 40 mg GT DAILY [facility] Stop: 07/14/17 08:59 Last Admin: 06/11/17 09:08 Dose: 40 mg Physical Exam: intubated getting HD No bleeding General: Alert, No acute distress HEENT: Atraumatic Neck: Other ( trach site no bleeding noted) Cardiovascular: Other (mild tachycardia) Lungs: Other (rhonchi bilaterally) Abdomen: Soft, no Tender Extremities: no Edema (no edema) Neurological: Other (seems more awake) Skin: Rash Psych/Mental Status: Mood NL - Procedures Procedures: Procedures Procedure Code Date BYPASS TRACHEA TO CUTANEOUS WITH TRACH DEV, OPEN APPROACH [id number] 05/13/17 INCISION OF WINDPIPE 71627 05/13/17 INSERT EMERGENCY AIRWAY 16186 05/13/17 INSERT TUNNELED CV CATH 38715 05/13/17 INSERTION OF ENDOTRACHEAL AIRWAY INTO TRACHEA, VIA OPENING [id number] 05/13/17 INSERTION OF INFUSION DEV INTO R FEMOR VEIN, PERC APPROACH [id number] 05/13/17 RESPIRATORY VENTILATION, GREATER THAN 96 CONSECUTIVE HOURS [id number] 05/13/17 VENT MGMT INPAT INIT DAY 15739 05/13/17 Assessment/Plan - Problem List Patient Problems: All Active Problems COUGH AND CONGESTION (Acute) Congestive heart failure (CHF) (Acute) I50.9 congestive heart failure (Acute) hypertension uncontrolled with bradycarda (Acute) renal failure (Acute) - Assessment Assessment: * DIC * RESPIRATORY FAILURE *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 hgb is stable Trach was reviewed and bleeding stoped Nutritional Asmnt/Malnutr-PDOC - Dietary Evaluation Malnutrition Findings (Please click <Entered> for more info): Nutritional Asmnt/Malnutrition Start: 05/15/17 13: 56 Text: Status: Complete Freq: Document 05/15/17 13:56 GSUN (Rec: 05/15/17 14:18 GSTHALIA [email or web address]) Nutritional Asmnt/Malnutrition Patient General Information Nutritional Screening High Risk Screening Diagnosis PNA, NICK, icnreasing renal failure, CVA, CHF, DM Pertinent Medical Hx/Surgical Hx CVA, dementia, afib, CAD, HTN, dyslipidemia, epilepsy, GERD, aspiration PNA, DM, CKD, dehydration, C. diff, anemia D Subjective Information 86 year old male from SNF. Pt greeted RD. Pt is overall thin , moderate to severe wasting to chest, clavicles, extremities. Observed Glytrol running at 60ml/hr x20hrs during visit. Unable to obtain CBW due to bedscale not calibrated. Discussed with YVETTE Farooq regarding tube feeding recommendations. Current Diet Order/ Nutrition Support Glytrol at 60ml/hr x 20hrs, providing 1200kcal 54g protein Pertinent Medications Lipitor, Novolog, Levemir, Cephulac, Morphine, Protonix, Nacl 0.9% Pertinent Labs 05/13: potassium 5.3H, BUN 80H, creatinine 2.4H, glucose 103 05/15: potassium WNL, BUN 70H, creatinine 2.4H, glucose 239H, A1c 6.1H, phosphorus 5.4H Nutritional Hx/Data Height 1.68 m Height (Calculated Centimeters) 167.6 Current Weight (lbs) 65.771 kg Weight (Calculated Kilograms) 65.8 Weight (Calculated Grams) [address]3077.9 [place] Body Weight 142 Weight Status Approriate GI Symptoms Difficult in: Swallowing Cultural/Ethnic/[employer] Belief [facility]: Glucerna 1.2 at 85ml/hr x 20hrs, providing 2040kcal, promote weight gain. Skin Integrity/Comment: Gee 12. Skin intact. Estimated Nutritional Goals Calories/Kcals/Kg CBW 145lb/65.9kg Kcals Calculated 1976-2307kcal (30-35kcal/kg) Protein Calculated 46-92g (0.7-1.4g/kg, renal vs moderate to severe wasting) Fluid: ml Per MD (renal) Nutritional Problem 2. Problem Problem Impaired nutrient utilization related to Etiology NICK, hx CKD aeb Signs/Symptoms: "increasing renal failure," potaasum 5.3H on adm, BUN 70H, java j2ee technical lead 2.4H, phosphorus 5.4H 1. Problem Problem Inadequate intake from enteral nutrition infusion related to Etiology estimated nutritional needs aeb Signs/Symptoms: providing to meet 61% lower end kcal needs Intervention/Recommendation Comments 1. Recommend Novasource Renal at 50ml/hr x 20hrs, providing 2000kcal and 91g protein. Current order Glytrol at 60ml/ hr x 20hrs is only providing 1200kcal, pt recieves 2040kcal at [facility]. Expected Outcomes/Goals Expected Outcomes/Goals 1. Pt to meet at least 100% of estimated nutritional needs on tube feeding with tolerance .
--- NOTE | 2017-06-11 10:36 | Diagnostic Imaging Report ---
Portable chest x-ray HISTORY: Shortness of breath Compared with the prior exam of June 10, 2017, the heart remains enlarged. Persistent bilateral infiltrates (left greater than right). Evidence of persistent small bilateral pleural effusions. IMPRESSION: 1. No change in the cardiopulmonary status as noted above.
[2017-06-11 12:11] LABS: ANTITRYPSIN SERUM A1 169 mg/dL (90-200); CERULOPLASMIN 17.1 mg/dL (16.0-31.0); F1 ACTIN-SMOOTH MUSC IGG 15 Units (0-19); FERRITIN 608 ng/mL (30-400); GAMMA GLUTAMYL TRANSFERASE 274 IU/L (0-65); HEP B CORE IGM Negative (Negative); HEP C ANTIBODY 0.3 s/co ratio (0.0-0.9); IRON SATURATION 21 % (15-55); TIBC (LCI) 112 ug/dL (250-450); UIBC 89 ug/dL (111-343)
[2017-06-11] MEDS: D5-0.45NS 1,000 ML IV SCH (12:20)
--- NOTE | 2017-06-11 13:46 | Infectious Disease Prog Note ---
Infectious Disease Subjective - Review of Systems Service Date: 06/11/17 Subjective: No new change. no fever today. s/p trach., on vent support. Infectious Disease Objective - Results Result Diagrams: 06/11/17 04:51 06/11/17 04:51 Recent Labs: Laboratory Last Values WBC 12.3 Th/cmm (4.8-10.8) H D 06/11/17 04:51 RBC 2.92 Mil/cmm (3.80-5.80) L 06/11/17 04:51 Hgb 8.6 gm/dL (12.6-17.4) L 06/11/17 04:51 Hct 25.1 % (39.0-49.0) L D 06/11/17 04:51 MCV 86.0 fl (80-99) 06/11/17 04:51 MCH 29.3 pg (27.0-31.0) 06/11/17 04:51 MCHC Differential 34.0 pg (28.0-36.0) 06/11/17 04:51 RDW 15.4 % (11.5-20.0) 06/11/17 04:51 Plt Count 167 Th/cmm (150-400) D 06/11/17 04:51 MPV 11.6 fl 06/11/17 04:51 Neutrophils % 70.4 % (40.0-80.0) 06/08/17 06:05 Band Neutrophils % 5 % (0-10) 06/11/17 04:51 Lymphocytes % 12.5 % (20.0-50.0) L 06/08/17 06:05 Monocytes % 14.9 % (2.0-10.0) H 06/08/17 06:05 Eosinophils % 1.4 % (0.0-5.0) 06/08/17 06:05 Basophils % 0.8 % (0.0-2.0) 06/08/17 06:05 Neutrophils (Manual) 76 % (40-80) 06/11/17 04:51 Lymphocytes 11 % (20-50) L 06/11/17 04:51 Monocytes 6 % (2-10) 06/11/17 04:51 Eosinophils 1 % (0-5) 06/11/17 04:51 Basophils 0 % (0-3) 05/24/17 04:49 Metamyelocytes 4 % (0-0) H 06/10/17 04:45 Myelocytes 1 % 06/11/17 04:51 Atypical Lymphocytes 1 % 06/10/17 04:45 Toxic Granulation 1+ 05/23/17 04:48 Platelet Estimate ADEQUATE (NORMAL) 06/11/17 04:51 Platelet Morphology PLATELET CLUMPS SEEN (NORMAL) 06/11/17 04:51 Polychromasia 1+ 06/11/17 04:51 Poikilocytosis 1+ 06/09/17 19:53 Anisocytosis 1+ 06/11/17 04:51 Target Cells 1+ 06/09/17 19:53 RBC Morph Micro Appear ABNORMAL (NORMAL) 06/11/17 04:51 Eos Smear Source URINE 05/14/17 18:00 Eos Smear Total Cells FEW EOSINOPHILS SEEN (NONE SEEN) 05/14/17 18:00 Plt Count 125 Th/cmm (150-750) L D 06/10/17 04:45 PT 12.7 SECONDS (9.5-11.5) H 06/10/17 04:45 INR 1.21 (0.5-1.4) 06/10/17 04:45 PTT (Actin FS) 33.4 SECONDS (26.0-38.0) 06/10/17 04:45 Fibrinogen 306.0 mg/dL (200.0-400.0) 06/10/17 04:45 D-Dimer 1900 ng/mL (100-400) H 06/10/17 04:45 Specimen Source Arterial 06/10/17 09:25 Sample Site Right Radial 06/10/17 09:25 pH 7.45 (7.35-7.45) 06/10/17 09:25 pCO2 44.0 mmHg (35.0-45.0) 06/10/17 09:25 pO2 63.0 mmHg (80.0-100.0) L 06/10/17 09:25 HCO3 29.3 mEq/L (20.0-26.0) H 06/10/17 09:25 Base Excess 5.8 mEq/L (-3.0-3.0) H 06/10/17 09:25 O2 Saturation 93.0 % (92.0-100.0) 06/10/17 09:25 [place] Test Positive 06/10/17 09:25 Vent Rate 4 06/10/17 09:25 Inspired O2 30 06/10/17 09:25 Tidal Volume 500 06/10/17 09:25 PEEP NA 06/10/17 09:25 Pressure (ins/psv/peep) 18 06/10/17 09:25 Critical Value LZHANG 06/10/17 09:25 Sodium 134 mEq/L (136-145) L 06/11/17 04:51 Potassium 3.9 mEq/L (3.5-5.1) 06/11/17 04:51 Chloride 99 mEq/L (98-107) 06/11/17 04:51 Carbon Dioxide 25.6 mEq/L (21.0-31.0) 06/11/17 04:51 Anion Gap 13.3 (7.0-16.0) 06/11/17 04:51 BUN 50 mg/dL (7-25) H 06/11/17 04:51 Creatinine 3.3 mg/dL (0.7-1.3) H 06/11/17 04:51 Est GFR ( Amer) TNP 06/11/17 04:51 Est GFR (Non-Af Amer) TNP 06/11/17 04:51 BUN/Creatinine Ratio 15.2 06/11/17 04:51 Glucose 212 mg/dL (70-105) H 06/11/17 04:51 POC Glucose 210 MG/DL (70 - 105) H 06/11/17 05:35 Hemoglobin A1c % 6.1 % (4.0-6.0) H 05/15/17 06:30 Plasma/Ser Osmolality 301 mOsmol/kg (280-301) 05/14/17 18:20 Whole Bld Lactic Acid 1.58 mmol/L (0.60-1.99) 05/13/17 17:42 Uric Acid 7.7 mg/dL (4.4-7.6) H 05/15/17 06:30 Calcium 9.0 mg/dL (8.6-10.3) 06/11/17 04:51 Phosphorus 2.7 mg/dL (2.5-5.0) 06/09/17 04:50 Magnesium 2.4 mg/dL (1.9-2.7) 06/09/17 04:50 Iron 23 ug/dL (38-169) L 06/07/17 04:40 TIBC 112 ug/dL (250-450) L 06/07/17 04:40 Iron Saturation 21 % (15-55) 06/07/17 04:40 Unsaturated IBC 89 ug/dL (111-343) L 06/07/17 04:40 Ferritin 608 ng/mL (30-400) H 06/07/17 04:40 Total Bilirubin 11.6 mg/dL (0.3-1.0) H 06/11/17 04:51 Direct Bilirubin 3.83 mg/dL (0.0-0.2) H 06/07/17 04:40 GGTP 274 IU/L (0-65) H 06/07/17 04:40 AST 198 U/L (13-39) H 06/11/17 04:51 ALT 15 U/L (7-52) 06/11/17 04:51 Alkaline Phosphatase 1760 U/L (34-104) H 06/11/17 04:51 Ammonia 47 umol/L (16-53) 06/08/17 14:08 Creatine Kinase 35 U/L (30-223) 05/16/17 23:06 Troponin I 0.02 ng/mL (0.01-0.05) 05/16/17 23:06 B-Natriuretic Peptide 2000.0 pg/mL (5.0-100.0) H 06/11/17 04:51 Total Protein 5.5 gm/dL (6.0-8.3) L 06/11/17 04:51 Albumin 3.0 gm/dL (4.2-5.5) L 06/11/17 04:51 Globulin 2.5 gm/dL 06/11/17 04:51 Albumin/Globulin Ratio 1.2 (1.0-1.8) 06/11/17 04:51 Prealbumin 6 mg/dL (9-32) L 06/04/17 04:47 Fjaip-0-Xveqdoitiel 169 mg/dL (90-200) 06/07/17 04:40 Ceruloplasmin 17.1 mg/dL (16.0-31.0) 06/07/17 04:40 Triglycerides 60 mg/dL (<150) 06/04/17 04:47 Cholesterol 63 mg/dL (<200) 06/04/17 04:47 Vitamin B12 >1999 pg/mL (211-946) H 06/04/17 04:47 Folic Acid >20.0 ng/mL (>3.0) 06/04/17 04:47 TSH 2.74 uIU/ml (0.34-5.60) 05/15/17 06:30 Urine Source CATH 06/06/17 10:30 Urine Color YELLOW 06/06/17 10:30 Urine Clarity SL. CLOUDY (CLEAR) 06/06/17 10:30 Urine pH 5.0 (4.6 - 8.0) 06/06/17 10:30 Ur Specific [place] 1.025 (1.005-1.030) 06/06/17 10:30 Urine Protein 100 mg/dL (NEGATIVE) H 06/06/17 10:30 Urine Glucose (UA) NEGATIVE mg/dL (NEGATIVE) 06/06/17 10:30 Urine Ketones NEGATIVE mg/dL (NEGATIVE) 06/06/17 10:30 Urine Blood LARGE (NEGATIVE) H 06/06/17 10:30 Urine Nitrate NEGATIVE (NEGATIVE) 06/06/17 10:30 Urine Bilirubin SMALL (NEGATIVE) H 06/06/17 10:30 Urine Urobilinogen 0.2 E.U./dL (0.2 - 1.0) 06/06/17 10:30 Ur Leukocyte Esterase LARGE (NEGATIVE) H 06/06/17 10:30 Urine RBC 20-30 /hpf (0-5) 06/06/17 10:30 Urine WBC 10-25 /hpf (0-5) H 06/06/17 10:30 Ur Epithelial Cells RARE /lpf (FEW) 06/06/17 10:30 Urine Bacteria f /hpf (NONE SEEN) 06/06/17 10:30 Urine Yeast MODERATE /hpf (NONE SEEN) H 06/06/17 10:30 Ur Random Sodium 30 mmol/L 05/14/17 18:00 Urine Creatinine 36.4 mg/dl (Not Estab.) 05/14/17 18:00 Urine Microalbumin 363.5 ug/mL (Not Estab.) 05/14/17 18:00 Microalb/Creat Ratio 998.6 mg/g creat (0.0-30.0) H 05/14/17 18:00 Stool Occult Blood NEGATIVE (NEGATIVE) 05/25/17 17:49 Random Vancomycin 19.1 ug/mL (5.0-40.0) 05/19/17 04:50 Acetaminophen < 10.0 ug/mL (10.0-30.0) L 06/07/17 04:40 Levetiracetam 32.1 ug/mL (10.0-40.0) 06/08/17 06:05 Anti-Mitochondrial Ab 8.9 Units (0.0-20.0) 06/07/17 04:40 Smooth Muscle IgG Ab 15 Units (0-19) 06/07/17 04:40 Hepatitis A IgM Ab Negative (Negative) 06/07/17 04:40 Hep Bs Antigen Negative (Negative) 06/07/17 04:40 Hep B Core IgM Ab Negative (Negative) 06/07/17 04:40 Hepatitis C Antibody 0.3 s/co ratio (0.0-0.9) 06/07/17 04:40 Blood Type B POSITIVE 06/10/17 14:17 Antibody Screen NEGATIVE 06/10/17 14:17 Crossmatch See Detail 05/21/17 10:19 - Physical Exam Vitals and I&O: Vital Signs Temp 99.2 F 06/11/17 04:00 Pulse 91 06/11/17 11:01 Resp 18 06/11/17 07:00 BP 117/66 06/11/17 09:08 Pulse Ox 100 06/11/17 11:01 Intake & Output 06/10/17 06/11/17 06/11/17 18:59 06:59 18:59 Intake Total 370 50 50 Output Total 20 5 Balance 350 45 50 Weight (lbs) 68.175 kg 68.039 kg Intake: Intake, IV Amount 50 50 50 Piperacillin Sodium/ 50 50 50 Tazobact 2.25 gm In Sodium Chloride 0.9% 50 ml @ 100 mls/hr IV Q6HR [facility] Rx#:[id number] Tube Feeding 70 Blood Product 150 Other 100 Output: Urine 20 5 Urine/Stool Mix 0 Other: # Bowel Movements 0 Active Medications: Current Medications Acetaminophen (Tylenol) 650 mg PO Q4HR PRN PRN Reason: Pain Or Fever above 101 Stop: 07/14/17 15:15 Last Admin: 06/09/17 18:51 Dose: 650 mg Albuterol/Ipratropium (Duoneb Neb) 3 ml HHN Q4HRT [facility] Stop: 07/19/17 14:59 Last Admin: 06/11/17 11:01 Dose: 3 ml Budesonide (Pulmicort) 1 mg HHN BIDRT [facility] Stop: 07/19/17 18:59 Last Admin: 06/11/17 07:23 Dose: 1 mg Calamine/Phenol (Calmoseptine) 1 appl TP QID PRN PRN Reason: Skin Irritation Stop: 08/03/17 12:28 Last Admin: 06/07/17 21:00 Dose: 1 appl Calamine/Phenol (Calmoseptine) 1 appl TP QID [facility] Stop: 08/03/17 12:59 Last Admin: 06/11/17 12:40 Dose: 1 appl Carbidopa/Levodopa (Sinemet 25mg-100 Mg) 1 tab PO TID [facility] Stop: 07/14/17 08:59 Last Admin: 06/11/17 09:07 Dose: 1 tab Chlorhexidine Gluconate (Peridex) 15 ml MM 08,1999 [facility] Stop: 07/23/17 19:59 Last Admin: 06/11/17 08:39 Dose: 15 ml Clonidine HCl (Catapres) 0.1 mg PO Q6HR PRN PRN Reason: BP MAINTENANCE (PER PROTOCOL) Stop: 07/28/17 13:31 Last Admin: 05/29/17 21:04 Dose: 0.1 mg Dextrose (D50w) 50 ml IVP PRN PRN; Protocol PRN Reason: HYPOGLYCEMIA Stop: 07/20/17 00:54 Last Admin: 05/22/17 23:34 Dose: 50 ml Diltiazem HCl (Cardizem) 10 mg IVP Q6HR PRN PRN Reason: HR >130 Stop: 07/22/17 17:09 Last Admin: 05/24/17 04:21 Dose: 10 mg Hydralazine HCl (Apresoline 20 Mg/Ml) 10 mg IV Q6HR PRN PRN Reason: BP MAINTENANCE (PER PROTOCOL) Stop: 07/30/17 13:09 Last Admin: 06/06/17 12:30 Dose: 10 mg Norepinephrine Bitartrate 8 mg (/ Dextrose) 258 mls @ 0 mls/hr IV TITR PRN; Protocol; Titrate PRN Reason: BP MAINTENANCE (PER PROTOCOL) Stop: 07/19/17 12:29 Last Admin: 05/21/17 01:06 Dose: 10 mcg/min, 19.35 mls/hr Phenylephrine HCl 10 mg/ (Sodium Chloride) 250 mls @ 0 mls/hr IV TITR YESSICA; Per Protocol PRN Reason: Protocol Stop: 07/19/17 12:59 Piperacillin Sod/Tazobactam (Sod 2.25 gm/ Sodium Chloride) 50 mls @ 100 mls/hr IV Q6HR YESSICA Stop: 08/05/17 11:59 Last Admin: 06/11/17 12:37 Dose: 100 mls/hr Norepinephrine Bitartrate 4 mg (/ Dextrose) 254 mls @ 0 mls/hr IV TITR PRN; Protocol; Per Protocol PRN Reason: BP MAINTENANCE (PER PROTOCOL) Stop: 08/07/17 10:48 Albumin Human (Albuminar 25%) 25 gm in 100 mls @ 50 mls/hr IV X1 ONE Stop: 06/11/17 15:59 Albumin Human (Albuminar 25%) 25 gm in 100 mls @ 50 mls/hr IV X1 ONE Stop: 06/11/17 15:59 Insulin Aspart (Novolog Insulin Sliding Scale) 0 units SUBQ Q6HR YESSICA PRN Reason: Protocol Stop: 07/14/17 00:00 Last Admin: 06/11/17 12:40 Dose: Not Given Isosorbide Dinitrate (Isordil) 20 mg GT TID [facility] Stop: 07/28/17 13:33 Last Admin: 06/11/17 09:07 Dose: 20 mg Lactobacillus Rhamnosus (Culturelle) 1 each PO DAILY YESSICA Stop: 07/17/17 08:59 Last Admin: 06/11/17 09:08 Dose: 1 each Metoclopramide HCl (Reglan) 5 mg IVP TID [facility] Stop: 07/20/17 20:59 Last Admin: 06/11/17 09:07 Dose: 5 mg Metoprolol Tartrate (Lopressor) 50 mg GT Q8H [facility] Stop: 07/18/17 08:59 Last Admin: 06/11/17 09:08 Dose: 50 mg Miscellaneous (Vte Chemical Prophylaxis Screen/ Admission) 1 ea PRN PRN PRN Reason: PROTOCOL Stop: 07/14/17 09:25 Miscellaneous (Clinical Monitoring) 1 ea MC DAILY PRN PRN Reason: RENAL Stop: 07/15/17 12:32 Miscellaneous (Probiotic Screen) 1 ea MC PRN PRN PRN Reason: PROTOCOL Stop: 07/16/17 09:33 Morphine Sulfate (Morphine) 1 mg IVP Q4HR PRN PRN Reason: Pain (Moderate) Stop: 08/06/17 15:02 Last Admin: 06/10/17 00:18 Dose: 1 mg Pantoprazole Sodium (Protonix) 40 mg GT DAILY YESSICA Stop: 07/14/17 08:59 Last Admin: 06/11/17 09:08 Dose: 40 mg - Procedures Procedures: Procedures Procedure Code Date BYPASS TRACHEA TO CUTANEOUS WITH TRACH DEV, OPEN APPROACH [id number] 05/13/17 INCISION OF WINDPIPE 11932 05/13/17 INSERT EMERGENCY AIRWAY 79110 05/13/17 INSERT TUNNELED CV CATH [id number] 05/13/17 INSERTION OF ENDOTRACHEAL AIRWAY INTO TRACHEA, VIA OPENING [id number] 05/13/17 INSERTION OF INFUSION DEV INTO R FEMOR VEIN, PERC APPROACH [id number] 05/13/17 RESPIRATORY VENTILATION, GREATER THAN 96 CONSECUTIVE HOURS [id number] 05/13/17 VENT MGMT INPAT INIT DAY 05649 05/13/17 Infectious Disease Assmt/Plan - Problem List Patient Problems: All Active Problems COUGH AND CONGESTION (Acute) Congestive heart failure (CHF) (Acute) I50.9 congestive heart failure (Acute) hypertension uncontrolled with bradycarda (Acute) renal failure (Acute) - Assessment Assessment: 1. Pneuimonia.? Aspiration. 2. NICK. 3. CVA. 4. CHF. 5. CKD4. NICK mild rise in creatinine. 6. Afib with rapid ventricular response. 7. candiduria. 8. Fever. Resolved. 9. Hyperbilirubinemia. LFTs are improving. Plan: Continue colistin nebulizer. continue zosyn. Nutritional Asmnt/Malnutr-PDOC - Dietary Evaluation Malnutrition Findings (Please click <Entered> for more info): Nutritional Asmnt/Malnutrition Start: 05/15/17 13: 56 Text: Status: Complete Freq: Document 05/15/17 13:56 GSUN (Rec: 05/15/17 14:18 GSUN [id number]) Nutritional Asmnt/Malnutrition Patient General Information Nutritional Screening High Risk Screening Diagnosis PNA, NICK, icnreasing renal failure, CVA, CHF, DM Pertinent Medical Hx/Surgical Hx CVA, dementia, afib, CAD, HTN, dyslipidemia, epilepsy, GERD, aspiration PNA, DM, CKD, dehydration, C. diff, anemia D Subjective Information 86 year old male from SNF. Pt greeted RD. Pt is overall thin , moderate to severe wasting to chest, clavicles, extremities. Observed Glytrol running at 60ml/hr x20hrs during visit. Unable to obtain CBW due to bedscale not calibrated. Discussed with YVETTE Farooq regarding tube feeding recommendations. Current Diet Order/ Nutrition Support Glytrol at 60ml/hr x 20hrs, providing 1200kcal 54g protein Pertinent Medications Lipitor, Novolog, Levemir, Cephulac, Morphine, Protonix, Nacl 0.9% Pertinent Labs 05/13: potassium 5.3H, BUN 80H, creatinine 2.4H, glucose 103 05/15: potassium WNL, BUN 70H, creatinine 2.4H, glucose 239H, A1c 6.1H, phosphorus 5.4H Nutritional Hx/Data Height 1.68 m Height (Calculated Centimeters) 167.6 Current Weight (lbs) 65.771 kg Weight (Calculated Kilograms) 65.8 Weight (Calculated Grams) 27118.9 [place] Body Weight 142 Weight Status Approriate GI Symptoms Difficult in: Swallowing Cultural/Ethnic/[facility]: Glucerna 1.2 at 85ml/hr x 20hrs, providing 2040kcal, promote weight gain. Skin Integrity/Comment: Gee 12. Skin intact. Estimated Nutritional Goals Calories/Kcals/Kg CBW 145lb/65.9kg Kcals Calculated 1976-7kcal (30-35kcal/kg) Protein Calculated 46-92g (0.7-1.4g/kg, renal vs moderate to severe wasting) Fluid: ml Per MD (renal) Nutritional Problem 2. Problem Problem Impaired nutrient utilization related to Etiology NICK, hx CKD aeb Signs/Symptoms: "increasing renal failure," potaasum 5.3H on adm, BUN 70H, renewal specialist 2.4H, phosphorus 5.4H 1. Problem Problem Inadequate intake from enteral nutrition infusion related to Etiology estimated nutritional needs aeb Signs/Symptoms: providing to meet 61% lower end kcal needs Intervention/Recommendation Comments 1. Recommend Novasource Renal at 50ml/hr x 20hrs, providing 2000kcal and 91g protein. Current order Glytrol at 60ml/ hr x 20hrs is only providing 1200kcal, pt recieves 0kcal at [facility]. Expected Outcomes/Goals Expected Outcomes/Goals 1. Pt to meet at least 100% of estimated nutritional needs on tube feeding with tolerance .
[2017-06-11] MEDS ORDERED: Albumin 25% 25gm/100mL 25 GM/100 ML BTL IV ONE (14:00)
--- NOTE | 2017-06-11 14:05 | General Progress Note ---
Subjective - Review of Systems Service Date: 06/11/17 Subjective: stuporous, on vent, nonverbal, no further bleeding from trachestomy site Objective - Results Result Diagrams: 06/11/17 04:51 06/11/17 04:51 Recent Labs: Laboratory Last Values WBC 12.3 Th/cmm (4.8-10.8) H D 06/11/17 04:51 RBC 2.92 Mil/cmm (3.80-5.80) L 06/11/17 04:51 Hgb 8.6 gm/dL (12.6-17.4) L 06/11/17 04:51 Hct 25.1 % (39.0-49.0) L D 06/11/17 04:51 MCV 86.0 fl (80-99) 06/11/17 04:51 MCH 29.3 pg (27.0-31.0) 06/11/17 04:51 MCHC Differential 34.0 pg (28.0-36.0) 06/11/17 04:51 RDW 15.4 % (11.5-20.0) 06/11/17 04:51 Plt Count 167 Th/cmm (150-400) D 06/11/17 04:51 MPV 11.6 fl 06/11/17 04:51 Neutrophils % 70.4 % (40.0-80.0) 06/08/17 06:05 Band Neutrophils % 5 % (0-10) 06/11/17 04:51 Lymphocytes % 12.5 % (20.0-50.0) L 06/08/17 06:05 Monocytes % 14.9 % (2.0-10.0) H 06/08/17 06:05 Eosinophils % 1.4 % (0.0-5.0) 06/08/17 06:05 Basophils % 0.8 % (0.0-2.0) 06/08/17 06:05 Neutrophils (Manual) 76 % (40-80) 06/11/17 04:51 Lymphocytes 11 % (20-50) L 06/11/17 04:51 Monocytes 6 % (2-10) 06/11/17 04:51 Eosinophils 1 % (0-5) 06/11/17 04:51 Basophils 0 % (0-3) 05/24/17 04:49 Metamyelocytes 4 % (0-0) H 06/10/17 04:45 Myelocytes 1 % 06/11/17 04:51 Atypical Lymphocytes 1 % 06/10/17 04:45 Toxic Granulation 1+ 05/23/17 04:48 Platelet Estimate ADEQUATE (NORMAL) 06/11/17 04:51 Platelet Morphology PLATELET CLUMPS SEEN (NORMAL) 06/11/17 04:51 Polychromasia 1+ 06/11/17 04:51 Poikilocytosis 1+ 06/09/17 19:53 Anisocytosis 1+ 06/11/17 04:51 Target Cells 1+ 06/09/17 19:53 RBC Morph Micro Appear ABNORMAL (NORMAL) 06/11/17 04:51 Eos Smear Source URINE 05/14/17 18:00 Eos Smear Total Cells FEW EOSINOPHILS SEEN (NONE SEEN) 05/14/17 18:00 Plt Count 125 Th/cmm (150-750) L D 06/10/17 04:45 PT 12.7 SECONDS (9.5-11.5) H 06/10/17 04:45 INR 1.21 (0.5-1.4) 06/10/17 04:45 PTT (Actin FS) 33.4 SECONDS (26.0-38.0) 06/10/17 04:45 Fibrinogen 306.0 mg/dL (200.0-400.0) 06/10/17 04:45 D-Dimer 1900 ng/mL (100-400) H 06/10/17 04:45 Specimen Source Arterial 06/10/17 09:25 Sample Site Right Radial 06/10/17 09:25 pH 7.45 (7.35-7.45) 06/10/17 09:25 pCO2 44.0 mmHg (35.0-45.0) 06/10/17 09:25 pO2 63.0 mmHg (80.0-100.0) L 06/10/17 09:25 HCO3 29.3 mEq/L (20.0-26.0) H 06/10/17 09:25 Base Excess 5.8 mEq/L (-3.0-3.0) H 06/10/17 09:25 O2 Saturation 93.0 % (92.0-100.0) 06/10/17 09:25 Feliciano Test Positive 06/10/17 09:25 Vent Rate 4 06/10/17 09:25 Inspired O2 30 06/10/17 09:25 Tidal Volume 500 06/10/17 09:25 PEEP NA 06/10/17 09:25 Pressure (ins/psv/peep) 18 06/10/17 09:25 Critical Value LZHANG 06/10/17 09:25 Sodium 134 mEq/L (136-145) L 06/11/17 04:51 Potassium 3.9 mEq/L (3.5-5.1) 06/11/17 04:51 Chloride 99 mEq/L (98-107) 06/11/17 04:51 Carbon Dioxide 25.6 mEq/L (21.0-31.0) 06/11/17 04:51 Anion Gap 13.3 (7.0-16.0) 06/11/17 04:51 BUN 50 mg/dL (7-25) H 06/11/17 04:51 Creatinine 3.3 mg/dL (0.7-1.3) H 06/11/17 04:51 Est GFR ( Amer) TNP 06/11/17 04:51 Est GFR (Non-Af Amer) TNP 06/11/17 04:51 BUN/Creatinine Ratio 15.2 06/11/17 04:51 Glucose 212 mg/dL (70-105) H 06/11/17 04:51 POC Glucose 210 MG/DL (70 - 105) H 06/11/17 05:35 Hemoglobin A1c % 6.1 % (4.0-6.0) H 05/15/17 06:30 Plasma/Ser Osmolality 301 mOsmol/kg (280-301) 05/14/17 18:20 Whole Bld Lactic Acid 1.58 mmol/L (0.60-1.99) 05/13/17 17:42 Uric Acid 7.7 mg/dL (4.4-7.6) H 05/15/17 06:30 Calcium 9.0 mg/dL (8.6-10.3) 06/11/17 04:51 Phosphorus 2.7 mg/dL (2.5-5.0) 06/09/17 04:50 Magnesium 2.4 mg/dL (1.9-2.7) 06/09/17 04:50 Iron 23 ug/dL (38-169) L 06/07/17 04:40 TIBC 112 ug/dL (250-450) L 06/07/17 04:40 Iron Saturation 21 % (15-55) 06/07/17 04:40 Unsaturated IBC 89 ug/dL (111-343) L 06/07/17 04:40 Ferritin 608 ng/mL (30-400) H 06/07/17 04:40 Total Bilirubin 11.6 mg/dL (0.3-1.0) H 06/11/17 04:51 Direct Bilirubin 3.83 mg/dL (0.0-0.2) H 06/07/17 04:40 GGTP 274 IU/L (0-65) H 06/07/17 04:40 AST 198 U/L (13-39) H 06/11/17 04:51 ALT 15 U/L (7-52) 06/11/17 04:51 Alkaline Phosphatase 1760 U/L (34-104) H 06/11/17 04:51 Ammonia 47 umol/L (16-53) 06/08/17 14:08 Creatine Kinase 35 U/L (30-223) 05/16/17 23:06 Troponin I 0.02 ng/mL (0.01-0.05) 05/16/17 23:06 B-Natriuretic Peptide 2000.0 pg/mL (5.0-100.0) H 06/11/17 04:51 Total Protein 5.5 gm/dL (6.0-8.3) L 06/11/17 04:51 Albumin 3.0 gm/dL (4.2-5.5) L 06/11/17 04:51 Globulin 2.5 gm/dL 06/11/17 04:51 Albumin/Globulin Ratio 1.2 (1.0-1.8) 06/11/17 04:51 Prealbumin 6 mg/dL (9-32) L 06/04/17 04:47 Zpuvb-0-Pqdpyeiborb 169 mg/dL (90-200) 06/07/17 04:40 Ceruloplasmin 17.1 mg/dL (16.0-31.0) 06/07/17 04:40 Triglycerides 60 mg/dL (<150) 06/04/17 04:47 Cholesterol 63 mg/dL (<200) 06/04/17 04:47 Vitamin B12 >1999 pg/mL (211-946) H 06/04/17 04:47 Folic Acid >20.0 ng/mL (>3.0) 06/04/17 04:47 TSH 2.74 uIU/ml (0.34-5.60) 05/15/17 06:30 Urine Source CATH 06/06/17 10:30 Urine Color YELLOW 06/06/17 10:30 Urine Clarity SL. CLOUDY (CLEAR) 06/06/17 10:30 Urine pH 5.0 (4.6 - 8.0) 06/06/17 10:30 Ur Specific [place] 1.025 (1.005-1.030) 06/06/17 10:30 Urine Protein 100 mg/dL (NEGATIVE) H 06/06/17 10:30 Urine Glucose (UA) NEGATIVE mg/dL (NEGATIVE) 06/06/17 10:30 Urine Ketones NEGATIVE mg/dL (NEGATIVE) 06/06/17 10:30 Urine Blood LARGE (NEGATIVE) H 06/06/17 10:30 Urine Nitrate NEGATIVE (NEGATIVE) 06/06/17 10:30 Urine Bilirubin SMALL (NEGATIVE) H 06/06/17 10:30 Urine Urobilinogen 0.2 E.U./dL (0.2 - 1.0) 06/06/17 10:30 Ur Leukocyte Esterase LARGE (NEGATIVE) H 06/06/17 10:30 Urine RBC 20-30 /hpf (0-5) 06/06/17 10:30 Urine WBC 10-25 /hpf (0-5) H 06/06/17 10:30 Ur Epithelial Cells RARE /lpf (FEW) 06/06/17 10:30 Urine Bacteria f /hpf (NONE SEEN) 06/06/17 10:30 Urine Yeast MODERATE /hpf (NONE SEEN) H 06/06/17 10:30 Ur Random Sodium 30 mmol/L 05/14/17 18:00 Urine Creatinine 36.4 mg/dl (Not Estab.) 05/14/17 18:00 Urine Microalbumin 363.5 ug/mL (Not Estab.) 05/14/17 18:00 Microalb/Creat Ratio 998.6 mg/g creat (0.0-30.0) H 05/14/17 18:00 Stool Occult Blood NEGATIVE (NEGATIVE) 05/25/17 17:49 Random Vancomycin 19.1 ug/mL (5.0-40.0) 05/19/17 04:50 Acetaminophen < 10.0 ug/mL (10.0-30.0) L 06/07/17 04:40 Levetiracetam 32.1 ug/mL (10.0-40.0) 06/08/17 06:05 Anti-Mitochondrial Ab 8.9 Units (0.0-20.0) 06/07/17 04:40 Smooth Muscle IgG Ab 15 Units (0-19) 06/07/17 04:40 Hepatitis A IgM Ab Negative (Negative) 06/07/17 04:40 Hep Bs Antigen Negative (Negative) 06/07/17 04:40 Hep B Core IgM Ab Negative (Negative) 06/07/17 04:40 Hepatitis C Antibody 0.3 s/co ratio (0.0-0.9) 06/07/17 04:40 Blood Type B POSITIVE 06/10/17 14:17 Antibody Screen NEGATIVE 06/10/17 14:17 Crossmatch See Detail 05/21/17 10:19 - Physical Exam Vitals and I&O: Vital Signs Temp 98.1 F 06/11/17 12:00 Pulse 88 06/11/17 13:00 Resp 19 06/11/17 13:00 BP 139/77 06/11/17 13:00 Pulse Ox 98 06/11/17 13:00 Intake & Output 06/10/17 06/11/17 06/11/17 18:59 06:59 18:59 Intake Total 370 50 50 Output Total 20 5 Balance 350 45 50 Weight (lbs) 68.175 kg 68.039 kg Intake: Intake, IV Amount 50 50 50 Piperacillin Sodium/ 50 50 50 Tazobact 2.25 gm In Sodium Chloride 0.9% 50 ml @ 100 mls/hr IV Q6HR [facility] Rx#:[id number] Tube Feeding 70 Blood Product 150 Other 100 Output: Urine 20 5 Urine/Stool Mix 0 Other: # Bowel Movements 0 Active Medications: Current Medications Acetaminophen (Tylenol) 650 mg PO Q4HR PRN PRN Reason: Pain Or Fever above 101 Stop: 07/14/17 15:15 Last Admin: 06/09/17 18:51 Dose: 650 mg Albuterol/Ipratropium (Duoneb Neb) 3 ml HHN Q4HRT [facility] Stop: 07/19/17 14:59 Last Admin: 06/11/17 11:01 Dose: 3 ml Budesonide (Pulmicort) 1 mg HHN BIDRT [facility] Stop: 07/19/17 18:59 Last Admin: 06/11/17 07:23 Dose: 1 mg Calamine/Phenol (Calmoseptine) 1 appl TP QID PRN PRN Reason: Skin Irritation Stop: 08/03/17 12:28 Last Admin: 06/07/17 21:00 Dose: 1 appl Calamine/Phenol (Calmoseptine) 1 appl TP QID [facility] Stop: 08/03/17 12:59 Last Admin: 06/11/17 12:40 Dose: 1 appl Carbidopa/Levodopa (Sinemet 25mg-100 Mg) 1 tab PO TID [facility] Stop: 07/14/17 08:59 Last Admin: 06/11/17 09:07 Dose: 1 tab Chlorhexidine Gluconate (Peridex) 15 ml MM 0800,1999 [facility] Stop: 07/23/17 19:59 Last Admin: 06/11/17 08:39 Dose: 15 ml Clonidine HCl (Catapres) 0.1 mg PO Q6HR PRN PRN Reason: BP MAINTENANCE (PER PROTOCOL) Stop: 07/28/17 13:31 Last Admin: 05/29/17 21:04 Dose: 0.1 mg Dextrose (D50w) 50 ml IVP PRN PRN; Protocol PRN Reason: HYPOGLYCEMIA Stop: 07/20/17 00:54 Last Admin: 05/22/17 23:34 Dose: 50 ml Diltiazem HCl (Cardizem) 10 mg IVP Q6HR PRN PRN Reason: HR >130 Stop: 07/22/17 17:09 Last Admin: 05/24/17 04:21 Dose: 10 mg Hydralazine HCl (Apresoline 20 Mg/Ml) 10 mg IV Q6HR PRN PRN Reason: BP MAINTENANCE (PER PROTOCOL) Stop: 07/30/17 13:09 Last Admin: 06/06/17 12:30 Dose: 10 mg Norepinephrine Bitartrate 8 mg (/ Dextrose) 258 mls @ 0 mls/hr IV TITR PRN; Protocol; Titrate PRN Reason: BP MAINTENANCE (PER PROTOCOL) Stop: 07/19/17 12:29 Last Admin: 05/21/17 01:06 Dose: 10 mcg/min, 19.35 mls/hr Phenylephrine HCl 10 mg/ (Sodium Chloride) 250 mls @ 0 mls/hr IV TITR YESSICA; Per Protocol PRN Reason: Protocol Stop: 07/19/17 12:59 Piperacillin Sod/Tazobactam (Sod 2.25 gm/ Sodium Chloride) 50 mls @ 100 mls/hr IV Q6HR YESSICA Stop: 08/05/17 11:59 Last Admin: 06/11/17 12:37 Dose: 100 mls/hr Norepinephrine Bitartrate 4 mg (/ Dextrose) 254 mls @ 0 mls/hr IV TITR PRN; Protocol; Per Protocol PRN Reason: BP MAINTENANCE (PER PROTOCOL) Stop: 08/07/17 10:48 Albumin Human (Albuminar 25%) 25 gm in 100 mls @ 50 mls/hr IV X1 ONE Stop: 06/11/17 15:59 Albumin Human (Albuminar 25%) 25 gm in 100 mls @ 50 mls/hr IV X1 ONE Stop: 06/11/17 15:59 Insulin Aspart (Novolog Insulin Sliding Scale) 0 units SUBQ Q6HR YESSICA PRN Reason: Protocol Stop: 07/14/17 00:00 Last Admin: 06/11/17 12:40 Dose: Not Given Isosorbide Dinitrate (Isordil) 20 mg GT TID [facility] Stop: 07/28/17 13:33 Last Admin: 06/11/17 09:07 Dose: 20 mg Lactobacillus Rhamnosus (Culturelle) 1 each PO DAILY YESSICA Stop: 07/17/17 08:59 Last Admin: 06/11/17 09:08 Dose: 1 each Metoclopramide HCl (Reglan) 5 mg IVP TID YESSICA Stop: 07/20/17 20:59 Last Admin: 06/11/17 09:07 Dose: 5 mg Metoprolol Tartrate (Lopressor) 50 mg GT Q8H YESSICA Stop: 07/18/17 08:59 Last Admin: 06/11/17 09:08 Dose: 50 mg Miscellaneous (Vte Chemical Prophylaxis Screen/ Admission) 1 ea PRN PRN PRN Reason: PROTOCOL Stop: 07/14/17 09:25 Miscellaneous (Clinical Monitoring) 1 ea DAILY PRN PRN Reason: RENAL Stop: 07/15/17 12:32 Miscellaneous (Probiotic Screen) 1 ea PRN PRN PRN Reason: PROTOCOL Stop: 07/16/17 09:33 Morphine Sulfate (Morphine) 1 mg IVP Q4HR PRN PRN Reason: Pain (Moderate) Stop: 08/06/17 15:02 Last Admin: 06/10/17 00:18 Dose: 1 mg Pantoprazole Sodium (Protonix) 40 mg GT DAILY YESSICA Stop: 07/14/17 08:59 Last Admin: 06/11/17 09:08 Dose: 40 mg General: Alert, No acute distress HEENT: Other (no bleed from tracheostomy site), no Atraumatic Neck: Supple, +2 carotid pulse wo bruit, Other ( trach site no bleeding noted) Cardiovascular: Regular rate, Normal S1, Normal S2, Other (mild tachycardia) Lungs: Other (rhonchi bilaterally) Abdomen: Soft, no Tender Extremities: no Edema (no edema) Neurological: Sensation intact, Other (seems more awake) Skin: Other (jaundice), no Rash Psych/Mental Status: Mood NL - Procedures Procedures: Procedures Procedure Code Date BYPASS TRACHEA TO CUTANEOUS WITH TRACH DEV, OPEN APPROACH [id number] 05/13/17 INCISION OF WINDPIPE 05618 05/13/17 INSERT EMERGENCY AIRWAY 73704 05/13/17 INSERT TUNNELED CV CATH 77736 05/13/17 INSERTION OF ENDOTRACHEAL AIRWAY INTO TRACHEA, VIA OPENING [id number] 05/13/17 INSERTION OF INFUSION DEV INTO R FEMOR VEIN, PERC APPROACH [id number] 05/13/17 RESPIRATORY VENTILATION, GREATER THAN 96 CONSECUTIVE HOURS [id number] 05/13/17 VENT MGMT INPAT INIT DAY 51905 05/13/17 Assessment/Plan - Problem List Patient Problems: All Active Problems COUGH AND CONGESTION (Acute) Congestive heart failure (CHF) (Acute) I50.9 congestive heart failure (Acute) hypertension uncontrolled with bradycarda (Acute) renal failure (Acute) - Assessment Assessment: NICK on CKD, now on dialysis A LOC secondary to metabolic encephalopathy/medications Dehydration Essential hypertension with CKD COPD Chronic atrial fibrillation Status post CVA Aspiration pneumonia/dysphagia status post PEG Type 2 diabetes mellitus with CKD Acute Decompensated CHF Acute Resp Failure on Vent Acute liver failure 2nd to congestion; possible meds ? Diflucan, Keppra, TPN coagulopathy 2nd liver failure? DIC? - Plan Plan: Lab - Result Diagrams 05/15/17 06:30 05/15/17 06:30 Current Medications Acetaminophen (Tylenol) 650 mg PO Q4HR PRN PRN Reason: Pain Or Fever above 101 Stop: 07/14/17 15:15 Last Admin: 05/15/17 16:21 Dose: 650 mg Albuterol Sulfate (Albuterol 2.5mg/3ml Neb Ud) 2.5 mg HHN Q6HRT YESSICA Stop: 07/14/17 00:59 Last Admin: 05/15/17 16:05 Dose: 2.5 mg Atorvastatin Calcium (Lipitor) 10 mg GT HS YESSICA PRN Reason: Protocol Stop: 07/14/17 20:59 Carbidopa/Levodopa (Sinemet 25mg-100 Mg) 1 tab PO TID YESSICA Stop: 07/14/17 08:59 Last Admin: 05/15/17 14:02 Dose: 1 tab Heparin Sodium (Porcine) (Heparin) 5,000 units SUBQ Q8H YESSICA Stop: 07/14/17 14:59 Last Admin: 05/15/17 16:24 Dose: 5,000 units Sodium Chloride (Nacl 0.9%) 1,000 mls @ 60 mls/hr IV .[id number] YESSICA Stop: 07/13/17 06:40 Last Admin: 05/14/17 17:16 Dose: 60 mls/hr Azithromycin 250 mg/ Sodium (Chloride) 250 mls @ 250 mls/hr IV Q24HR YESSICA Stop: 05/20/17 08:59 Piperacillin Sod/Tazobactam (Sod 3.375 gm/ Sodium Chloride) 50 mls @ 100 mls/ hr IV Q8HR [facility] Stop: 07/14/17 15:14 Last Admin: 05/15/17 15:57 Dose: 100 mls/hr Insulin Aspart (Novolog Insulin Sliding Scale) 0 units SUBQ Q6HR YESSICA PRN Reason: Protocol Stop: 07/14/17 00:00 Last Admin: 05/15/17 17:09 Dose: Not Given Insulin Detemir (Levemir Insulin) 14 units SUBQ DAILY YESSICA PRN Reason: Protocol Stop: 07/15/17 08:59 Isosorbide Dinitrate (Isordil) 10 mg GT TID YESSICA Stop: 07/14/17 08:59 Last Admin: 05/15/17 14:02 Dose: 10 mg Lactulose (Cephulac) 20 gm PO TID YESSICA Stop: 07/14/17 08:59 Last Admin: 05/15/17 14:02 Dose: 20 gm Levetiracetam (Keppra) 250 mg NG BID YESSICA Stop: 07/14/17 08:59 Last Admin: 05/15/17 16:23 Dose: 250 mg Metoprolol Tartrate (Lopressor) 37.5 mg GT BID YESSICA Stop: 07/14/17 00:14 Last Admin: 05/15/17 16:22 Dose: 37.5 mg Miscellaneous (Vte Chemical Prophylaxis Screen/ Admission) 1 ea MC PRN PRN PRN Reason: PROTOCOL Stop: 07/14/17 09:25 Morphine Sulfate (Morphine) 2 mg IVP Q3H PRN PRN Reason: PAIN Stop: 07/13/17 19:46 Last Admin: 05/14/17 21:16 Dose: 2 mg Mupirocin (Bactroban Oint) 1 appl TP BID YESSICA Stop: 07/14/17 16:59 Last Admin: 05/15/17 16:24 Dose: 1 appl Pantoprazole Sodium (Protonix) 40 mg GT DAILY YESSICA Stop: 07/14/17 08:59 Last Admin: 05/15/17 08:36 Dose: 40 mg Rifaximin (Xifaxan) 550 mg GT BID YESSICA Stop: 07/14/17 08:59 Last Admin: 05/15/17 16:23 Dose: 550 mg Latest BUN/CR were 50/3.3 WBC 12.3 on Zosyn, dc Diflucan Chest x-ray revealed diminished infiltrates B/L w/ some effusion Reviewed his meds Follow-up electrolytes, cbc decreased nephro 25 ml/hr due to residuals prognosis poor Hgb/Hct up to 8.6/24.7 schedule for hd in am Follow-up electrolytes, CBC and chest x-ray in a.m. BNP still elevated @ 1999 possibly combination of chf/ckd replace MG schedule for HD in am no bleeding tracheostomy site more jaundice Lab - Result Diagrams 05/24/17 04:49 05/24/17 04:49 addendum: Poor response to diuretics, w/ worsening CHF, BNP level developed resp failure, required intubation worsening cardio-renal syndrome discussed w/ grandson Pedro, about poor prognosis but still want to proceed w/ dialysis Nutritional Asmnt/Malnutr-PDOC - Dietary Evaluation Malnutrition Findings (Please click <Entered> for more info): Nutritional Asmnt/Malnutrition Start: 05/15/17 13: 56 Text: Status: Complete Freq: Document 05/15/17 13:56 GSUN (Rec: 05/15/17 14:18 GSUN [email or web address]) Nutritional Asmnt/Malnutrition Patient General Information Nutritional Screening High Risk Screening Diagnosis PNA, NICK, icnreasing renal failure, CVA, CHF, DM Pertinent Medical Hx/Surgical Hx CVA, dementia, afib, CAD, HTN, dyslipidemia, epilepsy, GERD, aspiration PNA, DM, CKD, dehydration, C. diff, anemia D Subjective Information 86 year old male from SNF. Pt greeted RD. Pt is overall thin , moderate to severe wasting to chest, clavicles, extremities. Observed Glytrol running at 60ml/hr x20hrs during visit. Unable to obtain CBW due to bedscale not calibrated. Discussed with YVETTE Farooq regarding tube feeding recommendations. Current Diet Order/ Nutrition Support Glytrol at 60ml/hr x 20hrs, providing 1200kcal 54g protein Pertinent Medications Lipitor, Novolog, Levemir, Cephulac, Morphine, Protonix, Nacl 0.9% Pertinent Labs 05/13: potassium 5.3H, BUN 80H, creatinine 2.4H, glucose 103 05/15: potassium WNL, BUN 70H, creatinine 2.4H, glucose 239H, A1c 6.1H, phosphorus 5.4H Nutritional Hx/Data Height 1.68 m Height (Calculated Centimeters) 167.6 Current Weight (lbs) 65.771 kg Weight (Calculated Kilograms) 65.8 Weight (Calculated Grams) 12961.9 [place] Body Weight 142 Weight Status Approriate GI Symptoms Difficult in: Swallowing Cultural/Ethnic/[employer] [place] [facility]: Glucerna 1.2 at 85ml/hr x 20hrs, providing 2040kcal, promote weight gain. Skin Integrity/Comment: Gee 12. Skin intact. Estimated Nutritional Goals Calories/Kcals/Kg CBW 145lb/65.9kg Kcals Calculated 1976-7kcal (30-35kcal/kg) Protein Calculated 46-92g (0.7-1.4g/kg, renal vs moderate to severe wasting) Fluid: ml Per MD (renal) Nutritional Problem 2. 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 Problem Problem Inadequate intake from enteral nutrition infusion related to Etiology estimated nutritional needs aeb Signs/Symptoms: providing to meet 61% lower end kcal needs Intervention/Recommendation Comments 1. Recommend Novasource Renal at 50ml/hr x 20hrs, providing 2000kcal and 91g protein. Current order Glytrol at 60ml/ hr x 20hrs is only providing 1200kcal, pt recieves 2040kcal at [facility]. Expected Outcomes/Goals Expected Outcomes/Goals 1. Pt to meet at least 100% of estimated nutritional needs on tube feeding with tolerance .
--- NOTE | 2017-06-11 14:18 | General Progress Note ---
Subjective - Review of Systems Service Date: 06/11/17 Subjective: Patient seen and examined awake but seems very weak no trach site bleeding noted Objective - Results Result Diagrams: 06/11/17 04:51 06/11/17 04:51 Recent Labs: Laboratory Last Values WBC 12.3 Th/cmm (4.8-10.8) H D 06/11/17 04:51 RBC 2.92 Mil/cmm (3.80-5.80) L 06/11/17 04:51 Hgb 8.6 gm/dL (12.6-17.4) L 06/11/17 04:51 Hct 25.1 % (39.0-49.0) L D 06/11/17 04:51 MCV 86.0 fl (80-99) 06/11/17 04:51 MCH 29.3 pg (27.0-31.0) 06/11/17 04:51 MCHC Differential 34.0 pg (28.0-36.0) 06/11/17 04:51 RDW 15.4 % (11.5-20.0) 06/11/17 04:51 Plt Count 167 Th/cmm (150-400) D 06/11/17 04:51 MPV 11.6 fl 06/11/17 04:51 Neutrophils % 70.4 % (40.0-80.0) 06/08/17 06:05 Band Neutrophils % 5 % (0-10) 06/11/17 04:51 Lymphocytes % 12.5 % (20.0-50.0) L 06/08/17 06:05 Monocytes % 14.9 % (2.0-10.0) H 06/08/17 06:05 Eosinophils % 1.4 % (0.0-5.0) 06/08/17 06:05 Basophils % 0.8 % (0.0-2.0) 06/08/17 06:05 Neutrophils (Manual) 76 % (40-80) 06/11/17 04:51 Lymphocytes 11 % (20-50) L 06/11/17 04:51 Monocytes 6 % (2-10) 06/11/17 04:51 Eosinophils 1 % (0-5) 06/11/17 04:51 Basophils 0 % (0-3) 05/24/17 04:49 Metamyelocytes 4 % (0-0) H 06/10/17 04:45 Myelocytes 1 % 06/11/17 04:51 Atypical Lymphocytes 1 % 06/10/17 04:45 Toxic Granulation 1+ 05/23/17 04:48 Platelet Estimate ADEQUATE (NORMAL) 06/11/17 04:51 Platelet Morphology PLATELET CLUMPS SEEN (NORMAL) 06/11/17 04:51 Polychromasia 1+ 06/11/17 04:51 Poikilocytosis 1+ 06/09/17 19:53 Anisocytosis 1+ 06/11/17 04:51 Target Cells 1+ 06/09/17 19:53 RBC Morph Micro Appear ABNORMAL (NORMAL) 06/11/17 04:51 Eos Smear Source URINE 05/14/17 18:00 Eos Smear Total Cells FEW EOSINOPHILS SEEN (NONE SEEN) 05/14/17 18:00 Plt Count 125 Th/cmm (150-750) L D 06/10/17 04:45 PT 12.7 SECONDS (9.5-11.5) H 06/10/17 04:45 INR 1.21 (0.5-1.4) 06/10/17 04:45 PTT (Actin FS) 33.4 SECONDS (26.0-38.0) 06/10/17 04:45 Fibrinogen 306.0 mg/dL (200.0-400.0) 06/10/17 04:45 D-Dimer 1900 ng/mL (100-400) H 06/10/17 04:45 Specimen Source Arterial 06/10/17 09:25 Sample Site Right Radial 06/10/17 09:25 pH 7.45 (7.35-7.45) 06/10/17 09:25 pCO2 44.0 mmHg (35.0-45.0) 06/10/17 09:25 pO2 63.0 mmHg (80.0-100.0) L 06/10/17 09:25 HCO3 29.3 mEq/L (20.0-26.0) H 06/10/17 09:25 Base Excess 5.8 mEq/L (-3.0-3.0) H 06/10/17 09:25 O2 Saturation 93.0 % (92.0-100.0) 06/10/17 09:25 Feliciano Test Positive 06/10/17 09:25 Vent Rate 4 06/10/17 09:25 Inspired O2 30 06/10/17 09:25 Tidal Volume 500 06/10/17 09:25 PEEP NA 06/10/17 09:25 Pressure (ins/psv/peep) 18 06/10/17 09:25 Critical Value LZHANG 06/10/17 09:25 Sodium 134 mEq/L (136-145) L 06/11/17 04:51 Potassium 3.9 mEq/L (3.5-5.1) 06/11/17 04:51 Chloride 99 mEq/L (98-107) 06/11/17 04:51 Carbon Dioxide 25.6 mEq/L (21.0-31.0) 06/11/17 04:51 Anion Gap 13.3 (7.0-16.0) 06/11/17 04:51 BUN 50 mg/dL (7-25) H 06/11/17 04:51 Creatinine 3.3 mg/dL (0.7-1.3) H 06/11/17 04:51 Est GFR ( Amer) TNP 06/11/17 04:51 Est GFR (Non-Af Amer) TNP 06/11/17 04:51 BUN/Creatinine Ratio 15.2 06/11/17 04:51 Glucose 212 mg/dL (70-105) H 06/11/17 04:51 POC Glucose 210 MG/DL (70 - 105) H 06/11/17 05:35 Hemoglobin A1c % 6.1 % (4.0-6.0) H 05/15/17 06:30 Plasma/Ser Osmolality 301 mOsmol/kg (280-301) 05/14/17 18:20 Whole Bld Lactic Acid 1.58 mmol/L (0.60-1.99) 05/13/17 17:42 Uric Acid 7.7 mg/dL (4.4-7.6) H 05/15/17 06:30 Calcium 9.0 mg/dL (8.6-10.3) 06/11/17 04:51 Phosphorus 2.7 mg/dL (2.5-5.0) 06/09/17 04:50 Magnesium 2.4 mg/dL (1.9-2.7) 06/09/17 04:50 Iron 23 ug/dL (38-169) L 06/07/17 04:40 TIBC 112 ug/dL (250-450) L 06/07/17 04:40 Iron Saturation 21 % (15-55) 06/07/17 04:40 Unsaturated IBC 89 ug/dL (111-343) L 06/07/17 04:40 Ferritin 608 ng/mL (30-400) H 06/07/17 04:40 Total Bilirubin 11.6 mg/dL (0.3-1.0) H 06/11/17 04:51 Direct Bilirubin 3.83 mg/dL (0.0-0.2) H 06/07/17 04:40 GGTP 274 IU/L (0-65) H 06/07/17 04:40 AST 198 U/L (13-39) H 06/11/17 04:51 ALT 15 U/L (7-52) 06/11/17 04:51 Alkaline Phosphatase 1760 U/L (34-104) H 06/11/17 04:51 Ammonia 47 umol/L (16-53) 06/08/17 14:08 Creatine Kinase 35 U/L (30-223) 05/16/17 23:06 Troponin I 0.02 ng/mL (0.01-0.05) 05/16/17 23:06 B-Natriuretic Peptide 2000.0 pg/mL (5.0-100.0) H 06/11/17 04:51 Total Protein 5.5 gm/dL (6.0-8.3) L 06/11/17 04:51 Albumin 3.0 gm/dL (4.2-5.5) L 06/11/17 04:51 Globulin 2.5 gm/dL 06/11/17 04:51 Albumin/Globulin Ratio 1.2 (1.0-1.8) 06/11/17 04:51 Prealbumin 6 mg/dL (9-32) L 06/04/17 04:47 [id number] 169 mg/dL (90-200) 06/07/17 04:40 Ceruloplasmin 17.1 mg/dL (16.0-31.0) 06/07/17 04:40 Triglycerides 60 mg/dL (<150) 06/04/17 04:47 Cholesterol 63 mg/dL (<200) 06/04/17 04:47 Vitamin B12 >1999 pg/mL (211-946) H 06/04/17 04:47 Folic Acid >20.0 ng/mL (>3.0) 06/04/17 04:47 TSH 2.74 uIU/ml (0.34-5.60) 05/15/17 06:30 Urine Source CATH 06/06/17 10:30 Urine Color YELLOW 06/06/17 10:30 Urine Clarity SL. CLOUDY (CLEAR) 06/06/17 10:30 Urine pH 5.0 (4.6 - 8.0) 06/06/17 10:30 Ur Specific [place] 1.025 (1.005-1.030) 06/06/17 10:30 Urine Protein 100 mg/dL (NEGATIVE) H 06/06/17 10:30 Urine Glucose (UA) NEGATIVE mg/dL (NEGATIVE) 06/06/17 10:30 Urine Ketones NEGATIVE mg/dL (NEGATIVE) 06/06/17 10:30 Urine Blood LARGE (NEGATIVE) H 06/06/17 10:30 Urine Nitrate NEGATIVE (NEGATIVE) 06/06/17 10:30 Urine Bilirubin SMALL (NEGATIVE) H 06/06/17 10:30 Urine Urobilinogen 0.2 E.U./dL (0.2 - 1.0) 06/06/17 10:30 Ur Leukocyte Esterase LARGE (NEGATIVE) H 06/06/17 10:30 Urine RBC 20-30 /hpf (0-5) 06/06/17 10:30 Urine WBC 10-25 /hpf (0-5) H 06/06/17 10:30 Ur Epithelial Cells RARE /lpf (FEW) 06/06/17 10:30 Urine Bacteria f /hpf (NONE SEEN) 06/06/17 10:30 Urine Yeast MODERATE /hpf (NONE SEEN) H 06/06/17 10:30 Ur Random Sodium 30 mmol/L 05/14/17 18:00 Urine Creatinine 36.4 mg/dl (Not Estab.) 05/14/17 18:00 Urine Microalbumin 363.5 ug/mL (Not Estab.) 05/14/17 18:00 Microalb/Creat Ratio 998.6 mg/g creat (0.0-30.0) H 05/14/17 18:00 Stool Occult Blood NEGATIVE (NEGATIVE) 05/25/17 17:49 Random Vancomycin 19.1 ug/mL (5.0-40.0) 05/19/17 04:50 Acetaminophen < 10.0 ug/mL (10.0-30.0) L 06/07/17 04:40 Levetiracetam 32.1 ug/mL (10.0-40.0) 06/08/17 06:05 Anti-Mitochondrial Ab 8.9 Units (0.0-20.0) 06/07/17 04:40 Smooth Muscle IgG Ab 15 Units (0-19) 06/07/17 04:40 Hepatitis A IgM Ab Negative (Negative) 06/07/17 04:40 Hep Bs Antigen Negative (Negative) 06/07/17 04:40 Hep B Core IgM Ab Negative (Negative) 06/07/17 04:40 Hepatitis C Antibody 0.3 s/co ratio (0.0-0.9) 06/07/17 04:40 Blood Type B POSITIVE 06/10/17 14:17 Antibody Screen NEGATIVE 06/10/17 14:17 Crossmatch See Detail 05/21/17 10:19 - Physical Exam Vitals and I&O: Vital Signs Temp 98.1 F 06/11/17 12:00 Pulse 88 06/11/17 13:00 Resp 19 06/11/17 13:00 BP 139/77 06/11/17 13:00 Pulse Ox 98 06/11/17 14:00 Intake & Output 06/10/17 06/11/17 06/11/17 18:59 06:59 18:59 Intake Total 370 50 50 Output Total 20 5 Balance 350 45 50 Weight (lbs) 68.175 kg 68.039 kg Intake: Intake, IV Amount 50 50 50 Piperacillin Sodium/ 50 50 50 Tazobact 2.25 gm In Sodium Chloride 0.9% 50 ml @ 100 mls/hr IV Q6HR [facility] Rx#:[id number] Tube Feeding 70 Blood Product 150 Other 100 Output: Urine 20 5 Urine/Stool Mix 0 Other: # Bowel Movements 0 Active Medications: Current Medications Acetaminophen (Tylenol) 650 mg PO Q4HR PRN PRN Reason: Pain Or Fever above 101 Stop: 07/14/17 15:15 Last Admin: 06/09/17 18:51 Dose: 650 mg Albuterol/Ipratropium (Duoneb Neb) 3 ml HHN Q4HRT [facility] Stop: 07/19/17 14:59 Last Admin: 06/11/17 11:01 Dose: 3 ml Budesonide (Pulmicort) 1 mg HHN BIDRT [facility] Stop: 07/19/17 18:59 Last Admin: 06/11/17 07:23 Dose: 1 mg Calamine/Phenol (Calmoseptine) 1 appl TP QID PRN PRN Reason: Skin Irritation Stop: 08/03/17 12:28 Last Admin: 06/07/17 21:00 Dose: 1 appl Calamine/Phenol (Calmoseptine) 1 appl TP QID [facility] Stop: 08/03/17 12:59 Last Admin: 06/11/17 12:40 Dose: 1 appl Carbidopa/Levodopa (Sinemet 25mg-100 Mg) 1 tab PO TID [facility] Stop: 07/14/17 08:59 Last Admin: 06/11/17 09:07 Dose: 1 tab Chlorhexidine Gluconate (Peridex) 15 ml MM 0800,1999 [facility] Stop: 07/23/17 19:59 Last Admin: 06/11/17 08:39 Dose: 15 ml Clonidine HCl (Catapres) 0.1 mg PO Q6HR PRN PRN Reason: BP MAINTENANCE (PER PROTOCOL) Stop: 07/28/17 13:31 Last Admin: 05/29/17 21:04 Dose: 0.1 mg Dextrose (D50w) 50 ml IVP PRN PRN; Protocol PRN Reason: HYPOGLYCEMIA Stop: 07/20/17 00:54 Last Admin: 05/22/17 23:34 Dose: 50 ml Diltiazem HCl (Cardizem) 10 mg IVP Q6HR PRN PRN Reason: HR >130 Stop: 07/22/17 17:09 Last Admin: 05/24/17 04:21 Dose: 10 mg Hydralazine HCl (Apresoline 20 Mg/Ml) 10 mg IV Q6HR PRN PRN Reason: BP MAINTENANCE (PER PROTOCOL) Stop: 07/30/17 13:09 Last Admin: 06/06/17 12:30 Dose: 10 mg Norepinephrine Bitartrate 8 mg (/ Dextrose) 258 mls @ 0 mls/hr IV TITR PRN; Protocol; Titrate PRN Reason: BP MAINTENANCE (PER PROTOCOL) Stop: 07/19/17 12:29 Last Admin: 05/21/17 01:06 Dose: 10 mcg/min, 19.35 mls/hr Phenylephrine HCl 10 mg/ (Sodium Chloride) 250 mls @ 0 mls/hr IV TITR YESSICA; Per Protocol PRN Reason: Protocol Stop: 07/19/17 12:59 Piperacillin Sod/Tazobactam (Sod 2.25 gm/ Sodium Chloride) 50 mls @ 100 mls/hr IV Q6HR YESSICA Stop: 08/05/17 11:59 Last Admin: 06/11/17 12:37 Dose: 100 mls/hr Norepinephrine Bitartrate 4 mg (/ Dextrose) 254 mls @ 0 mls/hr IV TITR PRN; Protocol; Per Protocol PRN Reason: BP MAINTENANCE (PER PROTOCOL) Stop: 08/07/17 10:48 Albumin Human (Albuminar 25%) 25 gm in 100 mls @ 50 mls/hr IV X1 ONE Stop: 06/11/17 15:59 Albumin Human (Albuminar 25%) 25 gm in 100 mls @ 50 mls/hr IV X1 ONE Stop: 06/11/17 15:59 Insulin Aspart (Novolog Insulin Sliding Scale) 0 units SUBQ Q6HR YESSICA PRN Reason: Protocol Stop: 07/14/17 00:00 Last Admin: 06/11/17 12:40 Dose: Not Given Isosorbide Dinitrate (Isordil) 20 mg GT TID [facility] Stop: 07/28/17 13:33 Last Admin: 06/11/17 09:07 Dose: 20 mg Lactobacillus Rhamnosus (Culturelle) 1 each PO DAILY YESSICA Stop: 07/17/17 08:59 Last Admin: 06/11/17 09:08 Dose: 1 each Metoclopramide HCl (Reglan) 5 mg IVP TID YESSICA Stop: 07/20/17 20:59 Last Admin: 06/11/17 09:07 Dose: 5 mg Metoprolol Tartrate (Lopressor) 50 mg GT Q8H [facility] Stop: 07/18/17 08:59 Last Admin: 06/11/17 09:08 Dose: 50 mg Miscellaneous (Vte Chemical Prophylaxis Screen/ Admission) 1 ea PRN PRN PRN Reason: PROTOCOL Stop: 07/14/17 09:25 Miscellaneous (Clinical Monitoring) 1 ea DAILY PRN PRN Reason: RENAL Stop: 07/15/17 12:32 Miscellaneous (Probiotic Screen) 1 ea MC PRN PRN PRN Reason: PROTOCOL Stop: 07/16/17 09:33 Morphine Sulfate (Morphine) 1 mg IVP Q4HR PRN PRN Reason: Pain (Moderate) Stop: 08/06/17 15:02 Last Admin: 06/10/17 00:18 Dose: 1 mg Pantoprazole Sodium (Protonix) 40 mg GT DAILY YESSICA Stop: 07/14/17 08:59 Last Admin: 06/11/17 09:08 Dose: 40 mg General: No acute distress HEENT: Other (icterus noted) Neck: Other ( trach site no bleeding noted) Cardiovascular: Regular rate, Other (mild tachycardia) Lungs: Other (rhonchi bilaterally) Abdomen: Soft, Tender Extremities: no Edema (no edema) Neurological: Other (lethargic) Skin: Rash, Other (jaundice) - Procedures Procedures: Procedures Procedure Code Date BYPASS TRACHEA TO CUTANEOUS WITH TRACH DEV, OPEN APPROACH [id number] 05/13/17 INCISION OF WINDPIPE 14237 05/13/17 INSERT EMERGENCY AIRWAY 69327 05/13/17 INSERT TUNNELED CV CATH 73417 05/13/17 INSERTION OF ENDOTRACHEAL AIRWAY INTO TRACHEA, VIA OPENING [id number] 05/13/17 INSERTION OF INFUSION DEV INTO R FEMOR VEIN, PERC APPROACH [id number] 05/13/17 RESPIRATORY VENTILATION, GREATER THAN 96 CONSECUTIVE HOURS [id number] 05/13/17 VENT MGMT INPAT INIT DAY 50514 05/13/17 Assessment/Plan - Problem List Patient Problems: All Active Problems COUGH AND CONGESTION (Acute) Congestive heart failure (CHF) (Acute) I50.9 congestive heart failure (Acute) hypertension uncontrolled with bradycarda (Acute) renal failure (Acute) - Assessment Assessment: Current Active Problems Problem Status Onset COUGH AND CONGESTION Acute Trach site bleeding stopped Jaundice most likely intrahepatic cholestasis (liver enzymes slowly improving) vent dependant respiratory failure s/p trach ESRD on HD MDRO Pneumonia Afib RVR UTI CAD DIC 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 HTN renal disease Seizure disorder - Plan Plan: Trach site bleeding stopped continue monitoring HH better prn transfusion Resume G tube feeding Case discussed with ID Pulmonary and Nephrology Antibiotics ID rec Continue vent support IV Fluids low dose maintenance Plan of care discussed with nursing staff Overall prognosis is poor LTAC DC planing in progress Nutritional Asmnt/Malnutr-PDOC - Dietary Evaluation Malnutrition Findings (Please click <Entered> for more info): Nutritional Asmnt/Malnutrition Start: 05/15/17 13: 56 Text: Status: Complete Freq: Document 05/15/17 13:56 GSTHALIA (Rec: 05/15/17 14:18 GSTHALIA [email or web address]) Nutritional Asmnt/Malnutrition Patient General Information Nutritional Screening High Risk Screening Diagnosis PNA, NICK, icnreasing renal failure, CVA, CHF, DM Pertinent Medical Hx/Surgical Hx CVA, dementia, afib, CAD, HTN, dyslipidemia, epilepsy, GERD, aspiration PNA, DM, CKD, dehydration, C. diff, anemia D Subjective Information 86 year old male from SNF. Pt greeted RD. Pt is overall thin , moderate to severe wasting to chest, clavicles, extremities. Observed Glytrol running at 60ml/hr x20hrs during visit. Unable to obtain CBW due to bedscale not calibrated. Discussed with YVETTE Farooq regarding tube feeding recommendations. Current Diet Order/ Nutrition Support Glytrol at 60ml/hr x 20hrs, providing 1200kcal 54g protein Pertinent Medications Lipitor, Novolog, Levemir, Cephulac, Morphine, Protonix, Nacl 0.9% Pertinent Labs 05/13: potassium 5.3H, BUN 80H, creatinine 2.4H, glucose 103 05/15: potassium WNL, BUN 70H, creatinine 2.4H, glucose 239H, A1c 6.1H, phosphorus 5.4H Nutritional Hx/Data Height 1.68 m Height (Calculated Centimeters) 167.6 Current Weight (lbs) 65.771 kg Weight (Calculated Kilograms) 65.8 Weight (Calculated Grams) 91013.9 [place] Body Weight 142 Weight Status Approriate GI Symptoms Difficult in: Swallowing Cultural/Ethnic/Sh[employer] Belief [facility]: Glucerna 1.2 at 85ml/hr x 20hrs, providing 2040kcal, promote weight gain. Skin Integrity/Comment: Gee 12. Skin intact. Estimated Nutritional Goals Calories/Kcals/Kg CBW 145lb/65.9kg Kcals Calculated 1976-2307kcal (30-35kcal/kg) Protein Calculated 46-92g (0.7-1.4g/kg, renal vs moderate to severe wasting) Fluid: ml Per MD (renal) Nutritional Problem 2. Problem Problem Impaired nutrient utilization related to Etiology NICK, hx CKD aeb Signs/Symptoms: "increasing renal failure," potaasum 5.3H on adm, BUN 70H, veterinary pharmacologist 2.4H, phosphorus 5.4H 1. Problem Problem Inadequate intake from enteral nutrition infusion related to Etiology estimated nutritional needs aeb Signs/Symptoms: providing to meet 61% lower end kcal needs Intervention/Recommendation Comments 1. Recommend Novasource Renal at 50ml/hr x 20hrs, providing 2000kcal and 91g protein. Current order Glytrol at 60ml/ hr x 20hrs is only providing 1200kcal, pt recieves 2040kcal at [facility]. Expected Outcomes/Goals Expected Outcomes/Goals 1. Pt to meet at least 100% of estimated nutritional needs on tube feeding with tolerance .
[2017-06-11] MEDS: Albumin 25% 25gm/100mL 25 GM/100 ML BTL IV ONE ×2 (15:50→15:52)
[2017-06-11] MEDS ORDERED: Morphine Sulfate 4 mg/mL 1mL Syr IVP PRN (16:54)
[2017-06-11] MEDS ORDERED: Sodium Chloride 0.9% 1,000 ML IV SCH (17:16)
--- NOTE | 2017-06-12 01:51 | Progress Notes ---
DATE: 06/11/2017 PULMONARY PROGRESS NOTE PROBLEM LIST: 1. Persistent respiratory failure. 2. Altered state of mind. 3. Cardiac arrhythmia. 4. History of MDRO in heart failure. 5. Renal failure, on hemodialysis. SYMPTOMS: The patient is quite icteric, no respiratory distress, no significant response to verbal stimuli. PHYSICAL EXAMINATION: VITAL SIGNS: The patient's temperature 99-00, pulse is 99-100, blood pressure 117/66, saturation 100% on 30% of oxygen. NECK: Veins not visualized. CHEST: Shows diminished air entry with occasional rhonchi. HEART: Regular. ABDOMEN: Soft and nontender. EXTREMITIES: Shows no peripheral edema. LABORATORY DATA: The patient's white count is 12.3, hemoglobin is 8.6, platelet is , and the patient's electrolytes show creatinine of 3.3, BUN is 50, and BNP is 2000 and alkaline phosphatase is 1700, and total bilirubin is 11.6. IMPRESSION: The patient is not clinically stable, chest x-ray improving, significant icteric hepatobiliary disease. PLANS AND SUGGESTIONS: Continue current treatment. Care and plan also discussed with Dr. Thayer, sales engagement manager. JOB# [id number]
[2017-06-12] MEDS ORDERED: Albumin 25% 25gm/100mL 25 GM/100 ML BTL IV PRN (14:00)
[2017-06-12] MEDS ORDERED: Albumin 25% 25gm/100mL 25 GM/100 ML BTL IV ONE (14:12)
== END 2017-06-11 20:06 | DRG 4 ==
LOC: ER 17:15 → TELE 20:29 → ICU 05-17
PROVIDERS: ADMIT Family Medicine; ATTEND Family Medicine
PROC: 0BH17EZ Insertion of Endotracheal Airway into Trachea, Via Natural or Artificial Opening (ICD-10-PCS; principal; 2017-05-20)
PROC: 5A1955Z Respiratory Ventilation, Greater than 96 Consecutive Hours (ICD-10-PCS; 2017-05-20)
PROC: 06HM33Z Insertion of Infusion Device into Right Femoral Vein, Percutaneous Approach (ICD-10-PCS; 2017-05-20)
PROC: 5A1D60Z (ICD-10-PCS; 2017-05-20)
PROC: 5A12012 Performance of Cardiac Output, Single, Manual (ICD-10-PCS; 2017-05-21)
PROC: 3E0336Z Introduction of Nutritional Substance into Peripheral Vein, Percutaneous Approach (ICD-10-PCS; 2017-05-21)
PROC: 30233N1 Transfusion of Nonautologous Red Blood Cells into Peripheral Vein, Percutaneous Approach (ICD-10-PCS; 2017-05-21)
PROC: 02HV33Z Insertion of Infusion Device into Superior Vena Cava, Percutaneous Approach (ICD-10-PCS; 2017-05-24)
PROC: B548ZZA Ultrasonography of Superior Vena Cava, Guidance (ICD-10-PCS; 2017-05-24)
PROC: 06PYX3Z Removal of Infusion Device from Lower Vein, External Approach (ICD-10-PCS; 2017-05-24)
PROC: 30233L1 Transfusion of Nonautologous Fresh Plasma into Peripheral Vein, Percutaneous Approach (ICD-10-PCS; 2017-06-04)
PROC: 30233K1 Transfusion of Nonautologous Frozen Plasma into Peripheral Vein, Percutaneous Approach (ICD-10-PCS; 2017-06-04)
PROC: 0B110F4 Bypass Trachea to Cutaneous with Tracheostomy Device, Open Approach (ICD-10-PCS; 2017-06-09)
DX: J69.0 Pneumonitis due to inhalation of food and vomit (principal); D65 Disseminated intravascular coagulation [defibrination syndrome]; K72.00 Acute and subacute hepatic failure without coma; G93.41 Metabolic encephalopathy; I13.2 Hypertensive heart and chronic kidney disease with heart failure and with stage 5 chronic kidney disease, or end stage renal disease; N17.9 Acute kidney failure, unspecified; K83.1 Obstruction of bile duct; I48.2 Chronic atrial fibrillation; J96.00 Acute respiratory failure, unspecified whether with hypoxia or hypercapnia; B37.49 Other urogenital candidiasis; N18.6 End stage renal disease; I46.9 Cardiac arrest, cause unspecified; E87.0 Hyperosmolality and hypernatremia; I69.354 Hemiplegia and hemiparesis following cerebral infarction affecting left non-dominant side; Z99.11 Dependence on respirator [ventilator] status; J95.01 Hemorrhage from tracheostomy stoma; E86.0 Dehydration; I50.9 Heart failure, unspecified; I25.10 Atherosclerotic heart disease of native coronary artery without angina pectoris; J44.9 Chronic obstructive pulmonary disease, unspecified; E78.5 Hyperlipidemia, unspecified; G40.909 Epilepsy, unspecified, not intractable, without status epilepticus; K21.9 Gastro-esophageal reflux disease without esophagitis; E11.21 Type 2 diabetes mellitus with diabetic nephropathy; E87.5 Hyperkalemia; D63.8 Anemia in other chronic diseases classified elsewhere; G30.9 Alzheimer's disease, unspecified; F02.80 Dementia in other diseases classified elsewhere, unspecified severity, without behavioral disturbance, psychotic disturbance, mood disturbance, and anxiety; R19.7 Diarrhea, unspecified; E11.649 Type 2 diabetes mellitus with hypoglycemia without coma; Y83.8 Other surgical procedures as the cause of abnormal reaction of the patient, or of later complication, without mention of misadventure at the time of the procedure; Y92.239 Unspecified place in hospital as the place of occurrence of the external cause; Z87.891 Personal history of nicotine dependence; Z79.4 Long term (current) use of insulin
CPT/HCPCS: 36415-UA; 36600-90; 70450-TC; 71010-TC; 71250-TC; 76700-TC; 76770-TC; 80048-TC; 80053-TC; 80074-90; 80202-TC; 80299-90; 80329-TC; 81001-TC; 81015-TC; 82043-90; 82103-90; 82140-TC; 82248-TC; 82270-TC; 82310-TC; 82390-90; 82465-TC; 82550-TC; 82570-TC; 82607-90; 82728-90; 82746-90; 82803-TC; 82947-TC; 82948-90; 82977-90; 83036-90; 83516-90; 83540-90; 83550-90; 83605; 83735-TC; 83880-TC; 83930-90; 84100-TC; 84134-90; 84300-TC; 84443-TC; 84478-TC; 84484-TC; 84550-TC; 85007-TC; 85014-TC; 85018-TC; 85025-TC; 85027-TC; 85049-TC; 85379-TC; 85384-TC; 85610-TC; 85730-TC; 86255-90; 86850-TC; 86900-TC; 86901-TC; 86922-TC; 86927-TC; 87070; 87086-90; 87230-TC; 90779; 90799; 92950; 93005; 94002; 94003; 94640; 94760; 96372; 96379; J0360; J0456; J0696; J0770; J1160; J1450; J1644; J1815; J1940; J1956; J2060; J2270; J2370; J2543; J2765; J3243; J3370; J3475; J7030; J7040; J7042; J7613; J7799; P9016; P9017; P9046; P9047; X6118; X6206; X6452; X6598; X7704; Z7610